=== PATIENT | female | born 1965 | race Caucasian/White ===

== ENCOUNTER 2019-11-15 11:23 | Emergency (ER) | payer MEDICARE, MEDICAID, SELFPAY ==
[2019-11-15 11:39] VITALS: BP 97/49; PULSE 112; RESP 16; TEMP 36.7; O2SAT 97
--- NOTE | 2019-11-15 11:50 | ED.GENADULT ---
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 She is also noticed a mild swelling the left inguinal canal which she is not sure what it is. It is mildly tender to palpation. She is not had any fever. She has not had any vaginal bleeding. She is not concerned about a sexually transmitted disease of any kind because she has not been sexually active in the past 5 years. She has had no hematuria, no dysuria, no pyuria. She has had no vaginal discharge and no vaginal bleeding. She is having no rectal pain. She has not had any ear pain, no nasal drainage, no sore throat. She has had no cough. She has had no nausea, no vomiting, no diarrhea. Related Data Home Medications Medication Instructions Recorded Confirmed albuterol sulfate 2 puff INHALATION Q4-6H PRN 08/20/19 11/01/19 montelukast 10 mg PO DAILY 10/19/19 11/01/19 omeprazole 20 mg PO DAILY 10/19/19 11/01/19 escitalopram oxalate 10 mg PO DAILY 11/15/19 11/15/19 roflumilast [Daliresp] 250 mcg PO DAILY 11/15/19 11/15/19 Allergies Allergy/AdvReac Type Severity Reaction Status Date / Time clindamycin Allergy Severe anaphylactic Verified 11/01/19 09:11 reaction, rash clarithromycin [From Biaxin] Allergy Hives Verified 11/15/19 11:48 Review of Systems Review of Systems: Narrative: CONSTITUTIONAL: Denies fever, chills, or sweats. Noncontributory except as pertains the past medical history and history of present illness. EYES: Denies visual changes, redness, or discharge. ENT: Denies rhinorrhea, congestion, sore throat, or otalgia. CARDIOVASCULAR: Denies chest pain, palpitations, or edema. RESPIRATORY: Denies cough or dyspnea. GASTROINTESTINAL: Denies abdominal pain, nausea, vomiting, or diarrhea. GENITOURINARY: Denies dysuria or hematuria. SKIN: Denies rash or itching. MUSCULOSKELETAL: Denies back pain, joint pain, or myalgia. NEUROLOGIC: Denies headache, numbness, or weakness. PSYCHIATRIC: Denies anxiety or depression. FOR[facility]LY [facility] Past Medical History Medical History (Updated 11/15/19 @ 12:14 by Issa Peace MD) Asthma Chronic respiratory failure COPD (chronic obstructive pulmonary disease) Generalized anxiety disorder with panic attacks GERD (gastroesophageal reflux disease) Spontaneous pneumothorax August 2012. These were recurrent on the left and she had a subsequent VATS procedure and apical blebectomy as well as pleurodesis. Steroid dependent Tobacco abuse Surgical History Surgical History (Updated 10/18/19 @ 22:58 by Brooke Pierson PA-C) History of bilateral tubal ligation History of History of tonsillectomy Status post thoracotomy Left-sided VATS procedure and apical bleb resection with pleurodesis. Social History Social History (Updated 11/01/19 @ 09:14 by Lizbeth Archuleta [facility]) Social History: The patient lives with her son. She has smoked as many as 2 packs of cigarettes a day. She apparently drinks 2 or 3 beers a day, but heavier on the weekends. Smoking packs per day: 0.5 Smoking cigarettes per day: 10.0 Years smoked: 35 Smoking pack-years: 17.50 Smoking status: Former smoker Tobacco type: cigarettes Second hand tobacco smoke exposure: No Alcohol intake: current Drinks per week: 5 Substance use: never Substance use type: does not use Additional living arrangements comments: Lives with her 17-year-old son. Gender identity (if verbalized by the patient): Female Spiritual care concerns: No Agree to blood products: Yes Comments At time of signature, I have reviewed and agree with nursing past medical, surgical, social, and family history.Please see n
== END 2019-11-15 12:20 | disposition home or self-care (01) ==
PROVIDERS: Emergency Provider Family Medicine; PCP Family Medicine
DX: N76.0 Acute vaginitis (principal); R59.0 Localized enlarged lymph nodes; Z87.891 Personal history of nicotine dependence; J45.909 Unspecified asthma, uncomplicated; K21.9 Gastro-esophageal reflux disease without esophagitis
CPT/HCPCS: 99214; G0463

== ENCOUNTER 2019-11-18 10:17 | Outpatient (CLI) | payer MEDICARE, MEDICAID, SELFPAY ==
[2019-11-18 11:00] VITALS: PULSE 134; O2SAT 84
[2019-11-18 11:05] VITALS: PULSE 136; O2SAT 85
[2019-11-18 11:10] VITALS: PULSE 121; O2SAT 91
--- NOTE | 2019-11-18 11:41 | HOMEO2EVAL ---
Home Oxygen Evaluation RC: Home Oxygen (O2) Evaluation Start: 11/18/19 11:36 Freq: ONCE Status: Active Protocol: RPE Activity Type Activity Date Activity User E-Sign Co-Sign Detail Recorded Client Recorded Date Recorded By Document 11/18/19 11:00 KMV [id number] 11/18/19 11:40 KMV Document 11/18/19 11:05 KMV [id number] 11/18/19 11:40 KMV Document 11/18/19 11:10 KMV [id number] 11/18/19 11:40 KMV 11/18/19 11/18/19 11/18/19 11:00 11:05 11:10 Home O2 Evaluation Test Phase Resting Exercise Exercise Oxygen Delivery Room Air Nasal Cannula Nasal Cannula Oxygen Flow Rate (L/min) 1 3 Pulse Oximetry (90-100 %) 84 L 85 L 91 Pulse Rate (60-100 beats/min) 134 H 136 H 121 H Treatment Charges O2 Evaluation
--- NOTE | 2019-11-21 00:34 | WPDPFTINT ---
PFT Interpretation PFT Interpretation: DOS: 11/18/2019 REQUESTING: Dr. Suggs REASON FOR TESTING: COPD PULMONARY FUNCTION TESTS Spirometry: Severe decrease in FEV1 16% predicted, 0.35 liter. FVc is modearetly severely reduced, 49%. The FEV1% is reduced 25%There is a significant response to bronchodilator, 20% increase in the FVC which is greater than 200 ml. Lung volumes: total lung capacity 143 consistent with moderate hyperinflation, severe air trapping residual volume 309%, severe increase in airway resistance 1057% predicted. Diffusion: DLCO is 27% predicted extremely reduced. Flow volume loop: Extreme scooping of the expiratory limb. IMPRESSION: This study shows extremely severe obstructive ventilatory impairment with good response to bronchodilator, moderate hyperinflation, profound air trapping, severe diffusion impairment consistent with end-stage emphysema. Increased airway resistance. Sil Suggs MD
== END 2019-11-18 10:18 | disposition home or self-care (01) ==
PROVIDERS: PCP Family Medicine; Visit Provider Internal Medicine Critical Care Medicine
DX: J96.11 Chronic respiratory failure with hypoxia (principal); J20.9 Acute bronchitis, unspecified; J96.12 Chronic respiratory failure with hypercapnia; J44.0 Chronic obstructive pulmonary disease with (acute) lower respiratory infection; R84.2 Abnormal level of other drugs, medicaments and biological substances in specimens from respiratory organs and thorax
CPT/HCPCS: 94060; 94618; 94729

== ENCOUNTER 2020-03-07 23:13 | Emergency (ER) | payer MEDICARE, MEDICAID, SELFPAY ==
--- NOTE | ~2020-03-07 | CT_ITS ---
EXAMINATION: CT brain wo con INDICATION: Head injury COMPARISON: None TECHNIQUE: Standard unenhanced head CT. The dose-length product (DLP) was 605.33 mGy-cm. The mA was a djusted according to patient size. Iterative reconstruction technique was employed. FINDINGS: There is no acute intraparenchymal hemorrhage. No evidence of mass lesion. No evidence of a cute infarction. There is mild periventricular and subcortical hypodensity probably related to small vessel ischemic disease. There is mild prominence of the sulci and ventricles related to cerebral atr ophy. Intracranial calcified cerebral atherosclerosis is noted. There are no extra-axial collections. There is no mass effect or midline shift. The orbits and soft tissues are unremarkable. There is mi ld mucosal thickening of the paranasal sinuses. There is complete opacification of the bilateral mast oid air cells. IMPRESSION: 1. No acute intracranial abnormality. 2. Bilateral mastoiditis. Reviewed, dictated and finalized at location A.
--- NOTE | ~2020-03-07 | CT_ITS ---
EXAMINATION: CT cervical spine wo con DATE: 03/07/2020 23:57 INDICATION: Neck pain TECHNIQUE: Computed tomography (CT) of the cervical spine was performed without intravenous contrast. The dose-length product (DLP) was 89.83 mGy-cm. Automated exposure control and iterative reconstruct ion technique were employed. COMPARISON: None FINDINGS: There is no fracture, dislocation, or subluxation. Mild loss of intervertebral disc space h eight is seen at C5-6 and C6-7. Small degenerative osteophytes project from the anterior endplates of multiple vertebral bodies. The odontoid is intact. Mild multilevel facet osteoarthritis is present. Bilateral mastoiditis is again noted. The prevertebral soft tissues are normal. There is severe emphy sema and surgical change in the visualized lung apices. IMPRESSION: 1. Mild cervical spondylosis without acute findings. Reviewed, dictated and finalized at location A.
--- NOTE | ~2020-03-07 | XR_ITS ---
EXAMINATION: XR thoracic spine 3V, XR lumbar spine 2-3V DATE: 03/08/2020 00:11 INDICATION: Back pain post fall TECHNIQUE: 1. One AP, lateral and lateral swimmer's views of the thoracic spine were obtained. 2. AP and lateral and coned-down lateral lumbosacral views of the lumbar spine were obtained. COMPARISON: None. FINDINGS: Mild thoracic kyphosis and minimal lumbar dextrocurvature. Vertebral body heights are normal. No acut e fractures identified. Mild disc height loss with minimal degenerative endplate changes at a few lev els in the midthoracic spine. Lumbar disc heights are normal. Sacrum and bilateral sacral iliac joint s are normal. Lag screw fixation across the right femoral head and neck. Severe emphysema with hypere xpansion of lungs and architectural distortion. Suture lines at the bilateral upper lung zones which may be related to prior lung reduction surgery. Mild scarring at the lung bases. No focal airspace op acities, pulmonary edema, pneumothorax or pleural effusion. IMPRESSION: 1. Mild thoracic spondylosis and minimal lumbar dextrocurvature. No evident acute osseous abnormality . 2. Severe emphysema Reviewed, dictated and finalized at location A. IMPRESSION: 1. Mild thoracic spondylosis and minimal lumbar dextrocurvature. No evident acu te osseous abnormality. 2. Severe emphysema
[2020-03-07 23:10] VITALS: BP 118/67; PULSE 90; RESP 20; TEMP 36.7; O2SAT 100
--- NOTE | 2020-03-08 00:31 | ED.FALL ---
HPI - Fall General Chief Complaint: Fall Stated Complaint: fall, low back pain Time Seen by Provider: 03/07/20 23:21 Source: patient Mode of arrival: ambulatory Limitations: no limitations History of Present Illness HPI Narrative: Patient is a 54-year-old female who presents to the emergency department via EMS with report of low back pain after sustaining a fall. Patient states she got up to get a bottle of water out of the refrigerator. Patient dropped a bottle of water which spilled on the floor causing her to slip and fall. Patient complains of low back pain. She also complains of skin tears to her forearms bilaterally. She denies any arm pain. Patient denies hitting her head or having any loss of consciousness. She is on Xarelto, but it is unclear for what diagnosis. MD complaint: fall Onset (ago): minute(s) Fall from: standing Place fall occurred: home Loss of consciousness: none Prolonged down time: no Symptoms prior to fall: none Context: tripped/slipped Location of injury: back Location of injury - extremities: Bilateral: forearm Related Data Home Medications Medication Instructions Recorded Confirmed albuterol sulfate 2 puff INHALATION Q4-6H PRN 08/20/19 11/01/19 montelukast 10 mg PO DAILY 10/19/19 11/01/19 omeprazole 20 mg PO DAILY 10/19/19 11/01/19 escitalopram oxalate 10 mg PO DAILY 11/15/19 11/15/19 roflumilast [Daliresp] 250 mcg PO DAILY 11/15/19 11/15/19 alprazolam 0.5 mg PO QID PRN 03/07/20 apixaban [Eliquis] 2.5 mg PO BID 03/07/20 ergocalciferol (vitamin D2) 1,250 mcg PO WEEKLY 03/07/20 [Vitamin D2] ferrous sulfate 325 mg PO DAILY 03/07/20 folic acid 0.8 mg PO DAILY 03/07/20 folic acid 1 mg PO DAILY 03/07/20 mirtazapine 15 mg PO HS 03/07/20 thiamine HCl (vitamin B1) 250 mg PO DAILY 03/07/20 umeclidinium [Incruse Ellipta] 1 inh INHALATION DAILY 03/07/20 Allergies Allergy/AdvReac Type Severity Reaction Status Date / Time clindamycin Allergy Severe anaphylactic Verified 11/01/19 09:11 reaction, rash clarithromycin [From Biaxin] Allergy Hives Verified 11/15/19 11:48 Review of Systems Review of Systems: All systems reviewed & are unremarkable except as noted in HPI and below Musculoskeletal: Musculoskeletal: Reports back pain PMFSH Past Medical History Medical History Asthma Chronic respiratory failure COPD (chronic obstructive pulmonary disease) Generalized anxiety disorder with panic attacks GERD (gastroesophageal reflux disease) Spontaneous pneumothorax August 2012. These were recurrent on the left and she had a subsequent VATS procedure and apical blebectomy as well as pleurodesis. Steroid dependent Tobacco abuse Surgical History Surgical History History of bilateral tubal ligation History of History of tonsillectomy Status post thoracotomy Left-sided VATS procedure and apical bleb resection with pleurodesis. Social History Social History Social History: The patient lives with her son. She has smoked as many as 2 packs of cigarettes a day. She apparently drinks 2 or 3 beers a day, but heavier on the weekends. Smoking packs per day: 0.5 Smoking cigarettes per day: 10.0 Years smoked: 35 Smoking pack-years: 17.50 Smoking status: Former smoker Tobacco type: cigarettes Second hand tobacco smoke exposure: No Alcohol intake: current Drinks per week: 5 Substance use: never Substance use type: does not use Additional living arrangements comments: Lives with her 17-year-old son. Gender identity (if verbalized by the patient): Female Spiritual care concerns: No Agree to blood products: Yes Exam Const: General: cooperative, no acute distress and alert Nutritional Appearance: well nourished Orientation/consciousness: patient oriented x3 Limitat
--- NOTE | 2020-03-08 01:11 | PC.NURSE ---
walked pt to bathroom with portable oxygen, pt tolerated well. called son Liam to come pick her up.
[2020-03-08 01:33] VITALS: BP 146/96; PULSE 90; RESP 24; O2SAT 100
== END 2020-03-08 01:37 | disposition home or self-care (01) ==
PROVIDERS: Emergency Provider Emergency Medicine; PCP Family Medicine
DX: S39.92XA Unspecified injury of lower back, initial encounter (principal); S51.812A Laceration without foreign body of left forearm, initial encounter; S51.811A Laceration without foreign body of right forearm, initial encounter; J44.9 Chronic obstructive pulmonary disease, unspecified; J96.10 Chronic respiratory failure, unspecified whether with hypoxia or hypercapnia; K21.9 Gastro-esophageal reflux disease without esophagitis; Z79.01 Long term (current) use of anticoagulants; F17.210 Nicotine dependence, cigarettes, uncomplicated; M47.812 Spondylosis without myelopathy or radiculopathy, cervical region; H70.93 Unspecified mastoiditis, bilateral; W01.0XXA Fall on same level from slipping, tripping and stumbling without subsequent striking against object, initial encounter
CPT/HCPCS: 70450; 72072; 72100; 72125; 99284

== ENCOUNTER 2020-03-08 11:15 | Inpatient (IN) | payer MEDICARE, MEDICAID, SELFPAY ==
[2020-03-08] VITALS (19 sets, daily range): BP systolic 62–197; BP diastolic 35–165; PULSE 90–120; RESP 14–30; TEMP 35.7–37.8; O2SAT 93–100
--- NOTE | ~2020-03-08 | XR_ITS ---
EXAMINATION: XR chest ET placement INDICATION: Endotracheal tube insertion TECHNIQUE: Portable AP chest at 2047 hours COMPARISON: 1359 hours FINDINGS: An endotracheal tube has been inserted which ends approximately 6 cm above the mario. A na sogastric tube has been inserted which ends with its tip in the stomach and proximal side port in the distal esophagus. Also seen is a new right internal jugular central venous catheter with its tip in the superior vena cava. The lungs are hyperinflated but free of acute opacities. There is no pleural effusion or pneumothorax. The cardiomediastinal silhouette is normal. Multiple staple lines are again noted in the lungs, consistent with prior surgery. IMPRESSION: 1. Endotracheal tube and right internal jugular catheter in adequate position. 2. Tip of the nasogastric tube in the stomach with the proximal side port in the distal esophagus. Re commend advancing. Reviewed, dictated and finalized at location A. IMPRESSION: 1. Endotracheal tube and right internal jugular catheter in adequate position. 2. Tip of the nasogastric tube in the stomach with the proximal side port in th e distal esophagus. Recommend advancing.
--- NOTE | ~2020-03-08 | XR_ITS ---
EXAMINATION: XR chest 1V portable DATE: 03/16/2020 05:54 INDICATION: Respiratory failure. TECHNIQUE: A single frontal view of the chest was obtained. COMPARISON: Chest single view 03/07/2020, chest CT 03/10/2020 FINDINGS: The lungs are hyperexpanded with lucencies and architectural distortion, consistent with em physema. There are scattered small airspace opacities, consistent with scarring. No pleural effusion. There is a small left basilar pneumothorax. There are staple lines in the upper lungs bilaterally. T he heart size is normal. The endotracheal tube tip is 4.0 cm above the mario. The nasogastric tube t ip is beyond the inferior margin of the radiograph, but at least to the stomach. A right internal jug ular central venous catheter is seen with tip in the superior vena cava. There is an old healed left rib fracture. IMPRESSION: 1. Stable small left pneumothorax. 2. Severe emphysema. Reviewed, dictated and finalized at location A.
--- NOTE | ~2020-03-08 | XR_ITS ---
EXAMINATION: XR chest 1V portable DATE: 03/17/2020 05:44 INDICATION: Respiratory failure TECHNIQUE: frontal view of the chest was obtained. COMPARISON: Chest radiograph dated 03/16/2020 FINDINGS: Unchanged small pneumothorax the lateral left mid to lower lung zone. Hyperexpansion of lungs with in creased lucency and architectural distortion consistent with emphysema. Suture lines at the bilateral upper lung zones which may be related to prior lung reduction surgery. Scattered linear scarring mos t prominent at the apices and lung bases. No new airspace opacities, pulmonary edema or pleural effus ion. The cardiomediastinal silhouette is normal. Old healed left rib fracture. IMPRESSION: 1. Unchanged small left pneumothorax. 2. Severe emphysema. Reviewed, dictated and finalized at location A.
--- NOTE | ~2020-03-08 | XR_ITS ---
EXAMINATION: XR chest 1V portable DATE: 03/13/2020 05:39 INDICATION: Acute respiratory failure. Chronic obstructive pulmonary disease exacerbation. TECHNIQUE: A single frontal view of the chest was obtained. COMPARISON: Chest single view 03/12/2020, chest CT 03/10/2020 FINDINGS: The lungs are hyperexpanded with lucencies and architectural distortion, consistent with em physema. There are staple lines in the superior lungs bilaterally. There is multifocal mild scarring in the lungs. No pleural effusion. There is a small left basilar pneumothorax. The heart size is norm al. The endotracheal tube tip is 5.5 cm above the mario. The nasogastric tube tip is beyond the infe rior margin of the radiograph, but at least to the stomach. A right internal jugular central venous c atheter is seen with tip IMPRESSION: 1. Stable small left pneumothorax. 2. Severe emphysema. Reviewed, dictated and finalized at location A.
--- NOTE | ~2020-03-08 | XR_ITS ---
EXAMINATION: XR chest 1V portable DATE: 03/19/2020 05:42 INDICATION: Respiratory failure. TECHNIQUE: A single frontal view of the chest was obtained. COMPARISON: Chest single view 03/18/2020, chest CT 03/10/2020 FINDINGS: The lungs are hyperexpanded with lucencies and architectural distortion, consistent with em physema. There are scattered mild airspace opacities in the lungs. Staple lines overlie the upper melina gs. No pleural effusion. No definite pneumothorax. The heart size is normal. IMPRESSION: 1. Stable diffuse lung disease which may be scarring or pneumonia versus pulmonary edema superimposed on severe emphysema. Reviewed, dictated and finalized at location A. IMPRESSION: 1. Stable diffuse lung disease which may be scarring or pneumonia versus pulmon cirera edema superimposed on severe emphysema.
--- NOTE | ~2020-03-08 | XR_ITS ---
EXAMINATION: XR chest 1V portable DATE: 03/08/2020 14:05 INDICATION: Shortness of breath. TECHNIQUE: A single frontal view of the chest was obtained on 2 radiographs. COMPARISON: Chest single view 10/24/2019, chest CT 10/23/2019 FINDINGS: The lungs are hyperexpanded with lucencies, mild multifocal scarring, and architectural dis tortion, consistent with emphysema. There are staple lines in the lungs bilaterally. No pleural effus ion or pneumothorax. The heart size is normal. There is an old healed fracture of left seventh rib. IMPRESSION: 1. Severe emphysema. Reviewed, dictated and finalized at location E. IMPRESSION: 1. Severe emphysema.
--- NOTE | ~2020-03-08 | CT_ITS ---
EXAMINATION: CTA chest PE protocol DATE: 03/10/2020 11:11 INDICATION: Acute respiratory failure. Elevated d-dimer. TECHNIQUE: Computed tomography angiography (CTA) of the chest was performed with 100 mL Omnipaque-350 intravenous contrast timed to evaluate the pulmonary arteries. Coronal maximum intensity projection 3D-reconstructions were created by the technologist. Automated exposure control and iterative reconst ruction technique were employed. Exam dose: 161.69 mGy-cm total exam DLP. COMPARISON: 03/10/2020 portable AP chest FINDINGS: Right internal jugular central venous line in superior vena cava. ET and NG tubes are present in expected positions. There is diagnostic contrast enhancement of the pulmonary arteries and no evidence of pulmonary embol ism. There is prominent bullous emphysema of the lungs. There is mild left pneumothorax. No thoracic aortic aneurysm is evident. No hilar or mediastinal mass lesion or lymphadenopathy. Normal heart size. No pericardial or pleural effusion. IMPRESSION: Mild left pneumothorax Severe bullous emphysema No evidence of pulmonary embolism Dr. Silva telephoned the report including mild left pneumothorax to ICU nurse Justine on 03/10/2020 at 1408 hours. Reviewed, dictated and finalized at Location A. Reviewed, dictated and finalized at location A. IMPRESSION: Mild left pneumothorax Severe bullous emphysema No evidence of pulmonary embolism Dr. Silva telephoned the report including mild left pneumothorax to ICU nurse Tai ramirez on 03/10/2020 at 1408 hours.
--- NOTE | ~2020-03-08 | XR_ITS ---
XR chest 1V portable DATE: 03/10/2020 05:24 INDICATION: Acute respiratory failure. COPD. TECHNIQUE: Portable AP chest on 03/10/2020 at 0521 hours COMPARISON: 03/09/2020 portable AP chest at 0523 hours FINDINGS: Postoperative changes from bilateral lung resections. Bilateral hyperinflation, consistent with COPD. There is scattered bilateral patchy pulmonary infiltrates, new since 03/09/2020. ET tube tip approximately 5 cm above mario. NG tube in stomach. Right internal jugular centimeters c atheter tip overlies the superior vena cava. No evidence of pneumothorax. Heart size is normal. There is no apparent pleural effusion. Diffuse osteopenia. IMPRESSION: Interval bilateral patchy pulmonary infiltrates since 03/09/2020 Reviewed, dictated and finalized at location A.
--- NOTE | ~2020-03-08 | XR_ITS ---
EXAMINATION: XR chest 1V portable DATE: 03/09/2020 05:56 INDICATION: Intubated TECHNIQUE: frontal view of the chest was obtained. COMPARISON: Chest radiograph dated 03/08/2020 FINDINGS: Endotracheal tube tip 4.4 cm above the mario. Right internal jugular central venous catheter with di stal tip at the midsuperior vena cava. Nasogastric tube extends below the left hemidiaphragm with di stal tip collimated off the study. Severe emphysema with hyperexpansion and architectural distortion with scattered regions of increased lucency and linear scarring. Suture lines at the bilateral upper lung zones which may be related to prior volume reduction surgery. No pulmonary edema, pleural effusion or pneumothorax. The cardiomedia stinal silhouette is normal. Old healed left rib fracture. IMPRESSION: 1. Severe emphysema. Reviewed, dictated and finalized at location A. IMPRESSION: 1. Severe emphysema.
--- NOTE | ~2020-03-08 | XR_ITS ---
XR chest 1V portable DATE: 03/11/2020 05:22 INDICATION: Acute respiratory failure TECHNIQUE: Portable AP chest on 03/11/2020 at 0458 hours COMPARISON: 03/10/2020 portable AP chest 03/10/2020 CT pulmonary scan FINDINGS: Stable mild left pneumothorax. Bilateral hyperinflation consistent with COPD. Postoperative changes from bilateral lung resections. Normal heart size. ET tube in satisfactory position approximately 4.4 cm above mario. NG tube in stomach. Right interna l jugular central venous catheter tip overlies the superior vena cava. No evidence of pneumothorax. Diffuse osteopenia. IMPRESSION: Stable mild left pneumothorax COPD Reviewed, dictated and finalized at location A.
--- NOTE | ~2020-03-08 | XR_ITS ---
EXAMINATION: XR chest 1V portable DATE: 03/15/2020 05:32 INDICATION: Left pneumothorax. TECHNIQUE: A single frontal view of the chest was obtained. COMPARISON: Chest single view 03/14/2020 FINDINGS: The lungs are hyperexpanded with architectural distortion, lucencies, and small scattered c hronic airspace opacities, consistent with severe emphysema with multifocal scarring. There is a smal l left basilar pneumothorax. No pleural effusion. The heart size is normal. The endotracheal tube tip is 4.1 cm above the mario. The nasogastric tube tip is beyond the inferior margin of the radiograph , but at least to the stomach. A right internal jugular central venous catheter is seen with tip in t he superior vena cava. IMPRESSION: 1. Stable small left pneumothorax. 2. Severe emphysema. Reviewed, dictated and finalized at location A.
--- NOTE | ~2020-03-08 | XR_ITS ---
EXAMINATION: XR chest 1V portable EXAM DATE: 03/12/2020 06:10 INDICATION: Respiratory failure. TECHNIQUE: Portable AP frontal chest x-ray was obtained. Comparison is made to prior examination from 03/11/2020. FINDINGS: Endotracheal tube tip is 5-6 centimeters above the mario (ideal range is between 2 to 5 cm ). There is a nasogastric tube seen with tip collimated off the study, but below the left hemidiaphr agm. There is right-sided IJ venous line in position. The lungs are hyperinflated which can be seen with chronic obstructive pulmonary disease (a clinical diagnosis of functional impairment), but is not diagnostic of it. There are scattered regions of post infectious residua and surgical suture material from lung biopsies/partial pneumonectomies. There a re no sizable pleural effusions. Small left pneumothorax with pleural reflection identified in the left lateral sulcus. Cardiomediastinal silhouette is normal. There are mild bony degenerative hurley es. There is no significant interval change compared to prior exam. IMPRESSION: 1. Small left pneumothorax unchanged. 2. Chronic hyperinflation, surgical and post infectious changes. Reviewed, dictated and finalized at location A.
--- NOTE | ~2020-03-08 | XR_ITS ---
EXAMINATION: XR abdomen NG/feed tube insert INDICATION: Nasogastric tube insertion TECHNIQUE: Portable AP KUB-NG at 2048 hours COMPARISON: 10/20/2019 FINDINGS: The tip of the nasogastric tube is in the stomach. The proximal side port is approximately 6 cm above the gastroesophageal junction. Tube can be safely advanced 6 cm. The bowel gas pattern is nonspecific. Severe emphysema is noted. IMPRESSION: 1. Tip of the nasogastric tube with the proximal side port in the distal esophagus. Tube can be safel y advanced 6 cm. Reviewed, dictated and finalized at location A. IMPRESSION: 1. Tip of the nasogastric tube with the proximal side port in the distal esopha lyndsay. Tube can be safely advanced 6 cm.
--- NOTE | ~2020-03-08 | CT_ITS ---
EXAMINATION: CT lumbar spine wo con DATE: 03/08/2020 13:07 INDICATION: Low back pain. TECHNIQUE: Computed tomography (CT) of the lumbar spine was performed without intravenous contrast. A utomated exposure control and iterative reconstruction technique were employed. The dose-length produ ct was 303.06 mGy-cm. COMPARISON: None FINDINGS: There is 5 degrees levocurvature of lumbar spine. Vertebral body heights and intervertebral disc heights are normal. The following disc levels are specifically discussed: L1-L2: The disc does not extend beyond the endplate margin. There is mild bilateral facet joint osteo arthritis. There is no neural foraminal stenosis. There is no central canal stenosis. L2-L3: The disc is bulging. There is mild bilateral facet joint osteoarthritis. There is mild right n eural foraminal stenosis. There is no central canal stenosis. L3-L4: The disc is bulging. There is moderate right and mild left facet joint osteoarthritis. There i s mild bilateral neural foraminal stenosis. There is mild central canal stenosis. L4-L5: The disc is mildly bulging. There is moderate right and mild left facet joint osteoarthritis. There is mild bilateral neural foraminal stenosis. There is no central canal stenosis. L5-S1: The disc does not extend beyond the endplate margin. There is mild bilateral facet joint osteo arthritis. There is no neural foraminal stenosis. There is no central canal stenosis. IMPRESSION: 1. Mild lumbar spondylosis. Reviewed, dictated and finalized at location E. IMPRESSION: 1. Mild lumbar spondylosis.
--- NOTE | ~2020-03-08 | XR_ITS ---
XR chest 1V portable 03/18/2020 06:01 Indication: Respiratory failure Procedure: AP portable chest Comparison: Comparison to multiple prior studies sequentially, with oldest reviewed study dated 03/14. Findings: Heart size normal. There are emphysematous changes. There are surgical changes in the upper lungs bilaterally consistent with partial pneumonectomy. There are diffuse bilateral interstitial in filtrates, likely edema. Pneumonia less favored. Impression: 1: Diffuse bilateral interstitial infiltrates, most likely edema superimposed on emphysema. Pneumonia less favored. Reviewed, dictated and finalized at location A. Impression: 1: Diffuse bilateral interstitial infiltrates, most likely edema superimposed o n emphysema. Pneumonia less favored.
--- NOTE | ~2020-03-08 | XR_ITS ---
EXAMINATION: XR chest 1V portable DATE: 03/14/2020 06:01 INDICATION: Acute respiratory failure. Chronic obstructive pulmonary disease exacerbation. TECHNIQUE: A single frontal view of the chest was obtained. COMPARISON: Chest single view 03/13/2020 FINDINGS: The lungs are hyperexpanded with architectural distortion and lucencies, consistent with em physema. There are mild airspace opacities in all lung zones bilaterally. There is a small left basil ar pneumothorax. No pleural effusion. The heart size is normal. The endotracheal tube tip is 5.3 cm a marina the mario. The nasogastric tube tip is beyond the inferior margin of the radiograph, but at jos[address] to the stomach. A right internal jugular central venous catheter is seen with tip in the superior vena cava. There are staple lines in the upper lungs. There is an old healed left rib fracture. IMPRESSION: 1. Stable small left pneumothorax. 2. Worsened diffuse lung disease, consistent with pneumonia versus atelectasis/scarring superimposed on severe emphysema. Reviewed, dictated and finalized at location A. IMPRESSION: 1. Stable small left pneumothorax. 2. Worsened diffuse lung disease, consistent with pneumonia versus atelectasis/ scarring superimposed on severe emphysema.
--- NOTE | 2020-03-08 12:33 | ED.BACK ---
HPI - Back Pain/Injury General Chief Complaint: Back Pain/Injury Stated Complaint: Back pain Time Seen by Provider: 03/08/20 11:34 Source: patient Mode of arrival: EMS Limitations: no limitations History of Present Illness HPI Narrative: This patient is a 54 year old frail female with COPD, chronic O2 who presents to the emergency department via EMS for evaluation of low back pain. Patient states she slipped on water last night and she fell onto her back. She was evaluated in [facility] late last night. She was evaluated with CT brain, CT cervical spine, thoracic spine xray and lumbar spine xray. No acute fracture was seen on the imaging so she was discharged home. Patient states that she continues to have pain and it seems worse so she came to ER to make sure her lower back was not broken. She denies lower extremity weakness or numbness. MD elicited complaint: back pain Location: lumbar spine Related Data Home Medications Medication Instructions Recorded Confirmed montelukast 10 mg PO DAILY 10/19/19 03/08/20 omeprazole 20 mg PO DAILY 10/19/19 03/08/20 escitalopram oxalate 10 mg PO DAILY 11/15/19 03/08/20 roflumilast [Daliresp] 500 mcg PO DAILY 11/15/19 03/08/20 alprazolam 0.5 mg PO QID PRN 03/07/20 03/08/20 apixaban [Eliquis] 2.5 mg PO BID 03/07/20 03/08/20 folic acid 1 mg PO DAILY 03/07/20 03/08/20 mirtazapine 15 mg PO HS 03/07/20 03/08/20 thiamine HCl (vitamin B1) 100 mg PO DAILY 03/07/20 03/08/20 umeclidinium [Incruse Ellipta] 1 inh INHALATION DAILY 03/07/20 03/08/20 ergocalciferol (vitamin D2) 50,000 unit PO WEEKLY 03/08/20 03/08/20 fluticasone propionate [Flonase 2 spray INTRANASAL DAILY 03/08/20 03/08/20 Allergy Relief] ipratropium-albuterol 3 ml INHALATION QID 03/08/20 03/08/20 Allergies Allergy/AdvReac Type Severity Reaction Status Date / Time clindamycin Allergy Severe anaphylactic Verified 03/08/20 11:30 reaction, rash clarithromycin [From Biaxin] Allergy Hives Verified 03/08/20 11:30 Review of Systems Review of Systems: All systems reviewed & are unremarkable except as noted in HPI and below Constitutional: Constitutional: Denies chills and Denies fever(s) Cardiovascular: Cardiovascular: Denies chest pain Respiratory: Respiratory: Reports dyspnea (chronic ) Musculoskeletal: Musculoskeletal: Reports back pain PMFSH Past Medical History Medical History Asthma Chronic respiratory failure COPD (chronic obstructive pulmonary disease) Generalized anxiety disorder with panic attacks GERD (gastroesophageal reflux disease) Spontaneous pneumothorax August 2012. These were recurrent on the left and she had a subsequent VATS procedure and apical blebectomy as well as pleurodesis. Steroid dependent Tobacco abuse Surgical History Surgical History History of bilateral tubal ligation History of History of tonsillectomy Status post thoracotomy Left-sided VATS procedure and apical bleb resection with pleurodesis. Social History Social History Social History: The patient lives with her son. She has smoked as many as 2 packs of cigarettes a day. She apparently drinks 2 or 3 beers a day, but heavier on the weekends. Smoking packs per day: 0.5 Smoking cigarettes per day: 10.0 Years smoked: 35 Smoking pack-years: 17.50 Smoking status: Current every day smoker Tobacco type: cigarettes Second hand tobacco smoke exposure: Yes Alcohol intake: current Drinks per week: 5 Substance use: never Substance use type: does not use Additional living arrangements comments: Lives with her 17-year-old son. Gender identity (if verbalized by the patient): Female Spiritual care concerns: No Agree to blood products: Yes Exam Const: General: alert Nutritional Appearance: th
[2020-03-08 13:45] LABS: Basophils Percent Auto 0.2 % (0.2-1.2); Hematocrit 41.6 % (37.0-47.0); Immature Granulocyte Absolute 0.04 K/mm3 (0.00-0.031); Immature Granulocyte Percent A 0.4 % (0-0.5); Lymphocytes Absolute Auto 0.37 K/mm3 (0.9-3.2); Lymphocytes Percent Auto 3.7 % (18.3-44.2); Mean Corpuscular HGB Conc 28.8 g/dl (32-36); Mean Corpuscular Hemoglobin 30.2 pg (26-34); Mean Corpuscular Volume 104.8 fl (80-100); Mean Platelet Volume 8.6 fl (7.4-10.4); Monocytes Absolute Auto 0.9 K/mm3 (0.1-0.6); Monocytes Percent Auto 8.5 % (2.6-8.5); Neutrophils Absolute Auto 8.8 K/mm3 (1.3-6.7); Neutrophils Percent Auto 87.2 % (45.5-73.1); Platelet Count Result 199 k/mm3 (150-375); Red Blood Count 3.97 M/mm3 (4.2-5.4); White Blood Count 10.1 K/mm3 (4.5-10.0)
[2020-03-08] MEDS: ONDANSETRON INJ 4 MG/2 ML VIAL IV PUSH (13:57)
[2020-03-08] MEDS: HYDROMORPHONE HCL 1 MG/ML INJ 0.5 MG IV PUSH (13:57)
[2020-03-08 14:05] LABS: Base Excess ABG 26.7 mEq/l (+/-2.0); HCO3 ABG 61.2 mEq/l (22.0-26.0); Oxygen Saturation ABG 93.8 % (95.0-100.0); PCO2 ABG 140.1 mmHg (35.0-45.0); PO2 ABG 87.3 mmHg (80.0-100.0); pH ABG 7.258 (7.350-7.450)
[2020-03-08 14:06] LABS: Carboxyhemoglobin 5.5 % THb (0-2.0); Device NASAL CANNULA; Fractional Inspired Oxygen 34 %; Liters per Minute 3.5 LPM; Methemoglobin ABG 0.2 %THb (0-1.5); Oxygen Content ABG 16.6 %vol (16.0-22.0); Oxyhemoglobin 90.3 % THb (90.0-100.0); PO2 FiO2 Ratio Arterial Blood 2.57 %; Site Drawn LEFT BRACHIAL
[2020-03-08 14:07] LABS: Alanine Aminotransferase 17 U/L (4-35); Albumin Level 3.9 g/dL (3.5-5.1); Alkaline Phosphatase 71 U/L (38-126); Aspartate Amino Transferase 32 U/L (14-36); Bilirubin,Total 0.4 mg/dL (0.2-1.3); Blood Urea Nitrogen 11 mg/dL (7-17); Calcium 8.7 mg/dL (8.4-10.2); Carbon Dioxide > 40 mmol/L (22-30); Chloride 78 mmol/L (98-107); Estimated CRCL calculation 87 ml/min; Estimated Glomerular Filt Rate > 60; Glucose 114 mg/dL (65-105); Potassium 4.4 mmol/L (3.4-5.0); Sodium 135 mmol/L (137-145)
--- NOTE | 2020-03-08 14:12 | ECG_ITS ---
Measurements Intervals [place] Rate: 88 P: 92 WI: 129 QRS: 66 QRSD: 78 T: 94 QT: 339 QTc: 412 Interpretive Statements SINUS RHYTHM VOLTAGE CRITERIA FOR LVH BASELINE ARTIFACT- I, II, III, AVR, AVL, AVF, V1-V6 BORDERLINE ECG Electronically Signed On 03-08-2020 14:17:16 CDT by Quinton Bell D.O.
--- NOTE | 2020-03-08 17:40 | PC.NURSE ---
This patient, Esther Brink, was admitted to IMU Room 210-01. Patient/family oriented to hospital policies and general routines including ID bracelet, bed and alarms, visiting hours, pain management, procedures, bathroom and other care routines, personal items, smoking policy, room service/diet, and visiting hours. Valuables list has been completed. Information on how to activate the Rapid Response Team has been discussed. Patient/Family are encouraged to report perceived risks to care and to ask questions if they do not understand what they are told or what they should do.
[2020-03-08 18:30] LABS: Base Excess ABG 28.9 mEq/l (+/-2.0); Carboxyhemoglobin 4.4 % THb (0-2.0); Fractional Inspired Oxygen 40 %; HCO3 ABG 65.3 mEq/l (22.0-26.0); Methemoglobin ABG 0.2 %THb (0-1.5); Oxygen Content ABG 16.4 %vol (16.0-22.0); Oxyhemoglobin 87.2 % THb (90.0-100.0); PO2 ABG 64.7 mmHg (80.0-100.0); PO2 FiO2 Ratio Arterial Blood 1.62 %; Reduced Hemoglobin 8.2 %THb (0-5.0); Total Hemoglobin 13.4 g/dL (12.0-18.0)
[2020-03-08 18:32] LABS: Device NON-INVASIVE VENT; Modified Allen's Test Pass; Oxygen Saturation ABG 84.3 % (95.0-100.0); PCO2 ABG 163.9 mmHg (35.0-45.0); Site Drawn LEFT RADIAL; pH ABG 7.218 (7.350-7.450)
[2020-03-08 18:34] LABS: Non-Invasive Expiratory Pressure 8 CMH2O; Non-Invasive Inspiratory Pressure 20 CMH2O; Non-Invasive Vent Rate 20 /MIN
--- NOTE | 2020-03-08 19:00 | PC.NURSE ---
This patient, Esther Brink, was received from [IMU ] on 03/08/20 at 1900. Personal belongings list checked and signed. Patient/family oriented to unit policies and routines
--- NOTE | 2020-03-08 19:05 | PC.NURSE ---
PATIENT ARRIVED ON BIPAP FROM IMU, INTUBATED PER DENTAL INSURANCE BILLER CHEL LORENZO PLACED ON VENTILATOR.
--- NOTE | 2020-03-08 19:11 | PC.NURSE ---
1854 Patient transferred to ICU 5 via bed. Patient's ABG worsening. Patient to ICU to be intubated. Belongings transferred with patient. Report given at bedside to RAHUL Stoner. Called and spoke with Neo Brooke, ex and got name and number of her child, Lino. Contact information updated.
--- NOTE | 2020-03-08 20:19 | ECG_ITS ---
Measurements Intervals [place] Rate: 87 P: 57 SD: 130 QRS: 79 QRSD: 73 T: 90 QT: 365 QTc: 440 Interpretive Statements SINUS RHYTHM ST ELEVATION IN ANTEROLAT/INF LEADS- CONSIDER PERICARDITIS, INJURY OR EARLY REPOLARIZATION BASELINE ARTIFACT- I, II, III, AVR, AVL, AVF, V3-V6 ABNORMAL ECG Electronically Signed On 03-09-2020 6:56:39 CDT by Quinton Bell D.O.
[2020-03-08] MEDS: SODIUM CHLORIDE 0.9% IV 1,000 ML 999 ML IV CONT (20:30)
[2020-03-08] MEDS: DOPamine 400 MG/D5W 250 ML 400 MG/250 ML BAG IV CONT (20:35)
--- NOTE | 2020-03-08 20:47 | PM.IMHP ---
H&P: HPI History of Present Illness Chief complaint: acute on chronic respiratory failure Narrative: Esther Brink is a 54 year old female who initially came to the Emergency last night due to low back pain after sustaining a fall. The patient got up to get up bottle water of the refrigerator sharp the bottle water and spilled all over the floor causing her to slip and fall. She is complaining lower back pain she has some skin tears on her arms. A CT of her head was performed and there is no acute intracranial abnormalities and she had a CT of her cervical spine mild cervical spondylosis without any acute findings. Patient was then sent home. Of COPD and is on oxygen at home. The patient was very short of breath. X-ray from this afternoon was read as severe emphysema. Her lumbar spine was read as mild lumbar spondylosis. Thoracic spine chest x-ray. Mild thoracic spondylosis and minimal lumbar dextrocurvature. Severe emphysema. Lumbar x-ray severe emphysema mild thoracic spondylosis and minimal lumbar dextrocurvature. CT of the cervical spine no fractures mild cervical spondylosis without acute findings. Patient's ABGs her pH is 7.258, pCO2 was 140.1 O2 saturations 93.8 bicarb 61.2. The patient was placed on a BiPAP in the emergency room. Patient was minimally responsive and anxious she was attempting to pull off her BiPAP machine. I repeated her ABGs and her pH was 7.218, pCO2 was 163.9, PO2 64.7. Bicarb 65.3. I called the silk screen painter who then recommended that the patient be intubated. I was able to intubate the patient but unable to get a central line. I spoke with Dr. pappas who came to help me with the patient in intensive care unit. An EKG had been performed due to some changes noted on the monitor when she was taken ICU. Dr. Moreno was notified of the EKG changes. Date of service 03/08/2020 Review of Systems Review of Systems: ROS unobtainable: Yes unobtainable due to mental status Constitutional: Constitutional: Reports as per HPI and Reports no additional constitutional complaints Eyes: Eyes: Reports as per HPI and Reports no additional eye complaints ENT: Reports system reviewed and no additional complaints, except as documented and Reports Normal hearing present Cardiovascular: Cardiovascular: Reports no additional cardiovascular complaints Respiratory: Respiratory: Reports no additional respiratory complaints and Reports no additional respiratory complaints Gastrointestinal: Gastrointestinal: Reports as per HPI and Reports no additional gastrointestinal complaints Musculoskeletal: Musculoskeletal: Reports no additional musculoskeletal complaints Integumentary/Breasts: Skin/Breast: Reports system reviewed and no additional complaints, except as docu and Reports as per HPI Neurologic: Reports system reviewed and no additional complaints, except as documented, Reports as per HPI and Reports Normal hearing present Psychiatric: Psychiatric: Reports no additional psychiatric complaints and Reports as per HPI Endocrine: Endocrine: Reports no additional endocrine complaints Hematologic/Lymphatic: Hematologic/Lymphatic: Reports no additional hematologic/lymphatic complaints Allergic/Immunologic: Allergic/Immunologic: Reports no additional allergic/immunologic complaints [facility] Past Medical History Medical History Asthma Chronic respiratory failure COPD (chronic obstructive pulmonary disease) Generalized anxiety disorder with panic attacks GERD (gastroesophageal reflux disease) Spontaneous pneumothorax August 2012. These were recurrent on the left and she had a subsequent VATS procedure and apical blebectomy as well as pleurodesis. Steroid dependent Tobacco abuse Surgical History Surgical History History of bilateral tubal ligation History of History of tonsillectomy Status post thoracotomy Left
--- NOTE | 2020-03-08 20:53 | ECG_ITS ---
Measurements Intervals [place] Rate: 115 P: 85 [place]: 108 QRS: 36 QRSD: 68 T: 89 QT: 303 QTc: 420 Interpretive Statements SINUS TACHYCARDIA PEAKED T WAVES- CONSIDER HYPERKALEMIA OR ISCHEMIA BASELINE ARTIFACT- I, II, III, AVR, AVL, AVF, V1-V6 ABNORMAL ECG Electronically Signed On 03-09-2020 6:57:41 CDT by Quinton Bell D.O.
[2020-03-08 20:56] LABS: Basophils Percent Auto 0.1 % (0.2-1.2); Hemoglobin 10.7 g/dL (12.0-15.0); Immature Granulocyte Absolute 0.01 K/mm3 (0.00-0.031); Immature Granulocyte Percent A 0.1 % (0-0.5); Lymphocytes Absolute Auto 0.63 K/mm3 (0.9-3.2); Lymphocytes Percent Auto 8.9 % (18.3-44.2); Mean Corpuscular HGB Conc 28.9 g/dl (32-36); Mean Corpuscular Hemoglobin 30.4 pg (26-34); Mean Corpuscular Volume 105.1 fl (80-100); Mean Platelet Volume 8.9 fl (7.4-10.4); Monocytes Absolute Auto 0.5 K/mm3 (0.1-0.6); Monocytes Percent Auto 7.5 % (2.6-8.5); Neutrophils Absolute Auto 5.9 K/mm3 (1.3-6.7); Neutrophils Percent Auto 83.4 % (45.5-73.1); Platelet Count Result 193 k/mm3 (150-375); Red Blood Count 3.52 M/mm3 (4.2-5.4); White Blood Count 7.1 K/mm3 (4.5-10.0)
[2020-03-08 20:57] LABS: Alveolar/Arterial O2 Gradient 303.1 mmHg; Base Excess ABG 16.1 mEq/l (+/-2.0); Fractional Inspired Oxygen 100 %; Oxygen Content ABG 17.1 %vol (16.0-22.0); Oxygen Saturation ABG 99.8 % (95.0-100.0); Oxyhemoglobin 96.8 % THb (90.0-100.0); PCO2 ABG 50.6 mmHg (35.0-45.0); PO2 ABG 359.3 mmHg (80.0-100.0); PO2 FiO2 Ratio Arterial Blood 3.59 %; Total Hemoglobin 11.9 g/dL (12.0-18.0)
[2020-03-08 20:58] LABS: Site Drawn RIGHT FEMORAL; pH ABG 7.526 (7.350-7.450)
[2020-03-08 20:59] LABS: Arterial Blood Gas PEEP 5 cmH2O; Arterial Blood Gas Tidal Volume 350 ml; Arterial Blood Gas Vent Mode CMV; Arterial Blood Gas Ventilator rate 20 /MIN; Device VENTILATOR
[2020-03-08 21:07] LABS: INR 0.9; Prothrombin Time 12.3 Seconds (11.1-14.7)
[2020-03-08 21:12] LABS: Alanine Aminotransferase 14 U/L (4-35); Albumin Level 3.3 g/dL (3.5-5.1); Alkaline Phosphatase 60 U/L (38-126); Aspartate Amino Transferase 26 U/L (14-36); Bilirubin,Total 0.5 mg/dL (0.2-1.3); Blood Urea Nitrogen 16 mg/dL (7-17); Calcium 7.9 mg/dL (8.4-10.2); Carbon Dioxide > 40 mmol/L (22-30); Chloride 84 mmol/L (98-107); Estimated CRCL calculation 56 ml/min; Estimated Glomerular Filt Rate > 60; Glucose 125 mg/dL (65-105); Hypochromasia 1+ (NORMAL); Platelet Estimate Adequate (Adequate); Sodium 134 mmol/L (137-145)
[2020-03-08 21:15] LABS: Magnesium 1.7 mg/dL (1.6-2.3)
--- NOTE | 2020-03-08 21:20 | ECG_ITS ---
Measurements Intervals [place] Rate: 107 P: 86 [place]: 123 QRS: 60 QRSD: 72 T: 89 QT: 322 QTc: 431 Interpretive Statements SINUS TACHYCARDIA POSSIBLE LEFT ATRIAL ENLARGEMENT ST ELEVATION IN ANTEROLAT/INF LEADS, PROBABLY EARLY REPOLARIZATION BORDERLINE T WAVE ABNORMALITY- HIGH LATERAL LEADS ABNORMAL ECG Electronically Signed On 03-09-2020 6:59:01 CDT by Quinton Bell D.O.
[2020-03-08 21:23] LABS: Troponin I < 0.012 ng/mL (0.000-0.034)
--- NOTE | 2020-03-08 21:23 | WPDPROCEDUR ---
Procedures Central Line Placement Right IJ: Central Line Date: 03/08/20 Central Line Time: 21:23 Performed Emergently - Given emergent patient condition, temporal constraints may have precluded informed consent.: Yes Patient Position: supine Patient placed on monitor/pulse ox: Yes Provider Prep: mask, sterile gown, sterile gloves, Max. sterile barrier precautions, cap, hand hygiene and emergent ? sterile barriers not used Central line prep: Povidone-Iodine 1% Ultrasound used for placement: Yes Central line lumen inserted: triple Albanian: 7 Length (cm): 17 Depth of Insertion (cm): 15 Post procedure: sutured in place, good blood return, all ports aspirated, flushed, capped, tegaderm, hemostatic disc and aseptic technique maintained throughout procedure Post procedure x-ray: tip of catheter in good position Patient tolerated procedure: well Complications: none Additional comments: Date of service of procedure was 03/08/2020 at 21:00 hrs.
[2020-03-08] MEDS: SODIUM CHLORIDE 0.9% IV 1,000 ML 125 ML IV CONT (21:30)
[2020-03-08] MEDS: NOREPINEPHRINE 8 MG/D5W 250 ML 8 MG/250 ML BAG 9.4 MG IV CONT (21:40)
--- NOTE | 2020-03-08 21:40 | PCRCNOTE ---
Pt did not receive tx due to intubation, and central line placement.
--- NOTE | 2020-03-08 21:41 | WPDPROCEDUR ---
Procedures Intubation Intubation Date: 03/08/20 Intubation Time: 19:00 A pre-procedural Time-Out was completed immediately before starting the procedure and confirmed: Patient Identification, Site, Procedure, Patient Position and the Availability of Requisite Equipment: Yes Sedative: etomidate Mg given: 10 Paralytic: succinylcholine Mg given: 20 Laryngoscope: fiber optic video scope Assist device used: fiber optic device ET tube size: cuffed Tube secured depth (cm): 23 Tube secured location: lips Tube placement confirmation: visualized tube passing through cords and equal breath sounds bilaterally Patient tolerated procedure: well Intubation complications: none
--- NOTE | 2020-03-08 21:44 | WPDPROCEDUR ---
Procedures Central Line Placement Right Femoral: Additional comments: Attempted to place a central line in both femoral veins. I was able to get a blood return but was not able to advance the guidewire. I used the ultrasound and was able to visualize the vein however I could not advance the guidewire. I was unsuccessful in getting a central line in her from oral veins bilaterally. I spoke to Dr. pappas concerning a central line and he was able to place a central line.
--- NOTE | 2020-03-08 21:48 | PHAR ---
PT'S HOME MED SOOLANTRA (IVERMECTIN) 1% CREAM VERIFIED BY PHARMACY
[2020-03-08] MEDS: FAMOTIDINE 20 MG/2 ML VIAL IV PUSH (22:18)
[2020-03-08] MEDS: FOLIC ACID 1 MG/0.2 ML INJ IV PUSH (22:20)
[2020-03-08] MEDS: THIAMINE HCL 200 MG/2 ML VIAL 100 MG IV PUSH (22:21)
[2020-03-08] MEDS: methylPREDNISolone SOD SUCC 125 MG VIAL 80 MG IV PUSH (22:22)
[2020-03-08] MEDS: MAGNESIUM SULF 2 GM/WATER 50ML 2 GM/50 ML BAG IVPB (22:37)
[2020-03-08 22:59] LABS: Alveolar/Arterial O2 Gradient 132.6 mmHg; Base Excess ABG 26.3 mEq/l (+/-2.0); Carboxyhemoglobin 1.7 % THb (0-2.0); Fractional Inspired Oxygen 50 %; HCO3 ABG 59.2 mEq/l (22.0-26.0); Methemoglobin ABG 0.5 %THb (0-1.5); Oxygen Saturation ABG 93.8 % (95.0-100.0); Oxyhemoglobin 93.3 % THb (90.0-100.0); PO2 ABG 83.6 mmHg (80.0-100.0); PO2 FiO2 Ratio Arterial Blood 1.67 %; Reduced Hemoglobin 4.5 %THb (0-5.0); Total Hemoglobin 12.1 g/dL (12.0-18.0); pH ABG 7.294 (7.350-7.450)
[2020-03-08 23:07] LABS: PCO2 ABG 124.7 mmHg (35.0-45.0)
[2020-03-08 23:08] LABS: Device VENTILATOR; Site Drawn LEFT BRACHIAL
[2020-03-08 23:09] LABS: Arterial Blood Gas PEEP 5 cmH2O; Arterial Blood Gas Tidal Volume 240 ml; Arterial Blood Gas Vent Mode CMV; Arterial Blood Gas Ventilator rate 14 /MIN
[2020-03-09] VITALS (20 sets, daily range): BP systolic 88–119; BP diastolic 65–77; PULSE 62–99; RESP 18–21; TEMP 37.1–37.8; O2SAT 95–100; BMI 15.2
--- NOTE | 2020-03-09 | ECHO_ITS ---
Patient Info Name: Esther Brink Age: 54 years : 1965 Gender: Female Ht: 61 in Wt: 74 lbs BSA: 1.19 m2 HR: 63 bpm BP: 99 / 66 mmHg Heart Rhythm: Sinus Rhythm Technical Quality: Good Exam Date: 03/09/2020 2:08 PM Exam Location: [facility] Patient Status: Inpatient Admit Date: 03/08/2020 Staff Ordering Physician: Margaret Alcaraz NP Registered Midwife: Russ Rincon, EMILICS, RT Attending Provider: Danielle Robbins MD Referring Physician: Kieran CATHERINE; Exam Type: CA echo doppler color flow Study Info Indications R94.31 - Abnormal electrocardiogram ECG EKG Complete two-dimensional, color flow and Doppler transthoracic echocardiogram is performed. Summary 1. Left ventricular systolic function is normal, estimated at 60-65%. 2. Right ventricular chamber dimension is normal. 3. No valvular abnormalities. 4. Pericardium has a thickened nodular appearance. Left Ventricle Left ventricular systolic function is normal, estimated at 60-65%. The left ventricular diastolic function is normal. Right Ventricle Right ventricular chamber dimension is normal. Left Atria Left atrial chamber dimension is normal. Right Atria Right atrial chamber dimension is normal. Aortic Valve The aortic valve is normal. Pulmonic Valve The pulmonic valve is not well visualized. Mitral Valve The mitral valve has normal leaflets. Tricuspid Valve The tricuspid valve leaflets are normal. Pericardium/Pleural The pericardium appears thickened pericardium. Aorta The aortic root size at the sinus of Valsalva is normal. Left Ventricular Outflow Tract Name Value Normal LVOT 2D LVOT Diameter 1.9 cm LVOT Doppler LVOT Peak Gradient 2 mmHg LVOT Mean Gradient 1 mmHg LVOT VTI 13 cm LVOT VTI/AV VTI Ratio 0.9 LVOT Stroke Volume 37 ml LVOT CO 3.0 l/min LVOT CI 2.5 l/min/m2 Mitral Valve Name Value Normal MV Doppler MV Decel [place] 240 cm/s2 MV PHT 76 ms MV Area (PHT) 2.9 cm2 4.0-5.0 MV Diastolic Function MV E Peak Velocity 63 cm/s MV A Peak Velocity 59 cm/s MV E/A 1.1 MV Decel Time 263 ms Tricuspid Valve Name Value Normal TV Diastolic Function
[2020-03-09] MEDS: SODIUM CHLORIDE 0.9% IV 500 ML 999 ML IV CONT (00:02)
[2020-03-09 00:21] LABS: D Dimer 1.07 ug/mL (<0.48)
[2020-03-09 00:30] LABS: Troponin I < 0.012 ng/mL (0.000-0.034)
[2020-03-09 00:59] LABS: Alveolar/Arterial O2 Gradient 135.7 mmHg; Base Excess ABG 12.8 mEq/l (+/-2.0); Carboxyhemoglobin 1.3 % THb (0-2.0); Fractional Inspired Oxygen 50 %; HCO3 ABG 41.8 mEq/l (22.0-26.0); Methemoglobin ABG 0.4 %THb (0-1.5); Oxygen Content ABG 15.8 %vol (16.0-22.0); Oxygen Saturation ABG 98.2 % (95.0-100.0); Oxyhemoglobin 96.2 % THb (90.0-100.0); PO2 ABG 129.2 mmHg (80.0-100.0); PO2 FiO2 Ratio Arterial Blood 2.58 %; Reduced Hemoglobin 2.1 %THb (0-5.0); Total Hemoglobin 11.5 g/dL (12.0-18.0); pH ABG 7.328 (7.350-7.450)
[2020-03-09 01:01] LABS: Device VENTILATOR; Modified Allen's Test Pass; PCO2 ABG 81.4 mmHg (35.0-45.0); Site Drawn LEFT RADIAL
[2020-03-09 01:03] LABS: Arterial Blood Gas PEEP 5 cmH2O; Arterial Blood Gas Tidal Volume 240 ml; Arterial Blood Gas Vent Mode CMV; Arterial Blood Gas Ventilator rate 20 /MIN
[2020-03-09 03:22] LABS: Basophils Percent Auto 0.2 % (0.2-1.2); Hematocrit 35.1 % (37.0-47.0); Hemoglobin 10.2 g/dL (12.0-15.0); Immature Granulocyte Absolute 0.12 K/mm3 (0.00-0.031); Immature Granulocyte Percent A 0.7 % (0-0.5); Lymphocytes Absolute Auto 0.18 K/mm3 (0.9-3.2); Mean Corpuscular HGB Conc 29.1 g/dl (32-36); Mean Corpuscular Hemoglobin 30.4 pg (26-34); Mean Corpuscular Volume 104.8 fl (80-100); Monocytes Absolute Auto 0.4 K/mm3 (0.1-0.6); Monocytes Percent Auto 2.3 % (2.6-8.5); Neutrophils Absolute Auto 17.5 K/mm3 (1.3-6.7); Neutrophils Percent Auto 95.8 % (45.5-73.1); Platelet Count Result 236 k/mm3 (150-375); Red Blood Count 3.35 M/mm3 (4.2-5.4); Red Cell Distribution Width 12.2 % (11.5-14.5); White Blood Count 18.2 K/mm3 (4.5-10.0)
[2020-03-09] MEDS: SODIUM CHLORIDE 0.9% IV 1,000 ML 125 ML IV CONT (03:28)
[2020-03-09 03:47] LABS: Add Urine Microscopic? YES; Appearance Urine Cloudy (Clear); Bilirubin Urine Negative (Negative); Blood Urine 2+ (Negative); Color Urine Yellow (Yellow); Glucose Urine UA Negative (Negative); Ketones Urine 2+ mg/dL (Negative); Leukocyte Esterase Ur Negative LEU/UL (NEGATIVE); Mucus Urine Rare /lpf; Nitrate Urine Negative (Negative); Protein Urine 1+ mg/dL (Negative); RBC Urine 51-75 /hpf (0-2); Specific Grav Ur 1.029 (1.001-1.035); Squamous Epithelial Cell Urine Occasional /hpf (Few); Urobilinogen Urine Negative mg/dL (<2.0)
[2020-03-09 03:48] LABS: Troponin I < 0.012 ng/mL (0.000-0.034)
[2020-03-09 04:16] LABS: Thyroid Stimulating Hormone Reflex 0.294 uIU/mL (0.465-4.68)
[2020-03-09 04:23] LABS: Alanine Aminotransferase 18 U/L (4-35); Alkaline Phosphatase 62 U/L (38-126); Aspartate Amino Transferase 33 U/L (14-36); Bilirubin,Total 0.5 mg/dL (0.2-1.3); Blood Urea Nitrogen 18 mg/dL (7-17); Calcium 7.2 mg/dL (8.4-10.2); Carbon Dioxide > 40 mmol/L (22-30); Chloride 87 mmol/L (98-107); Estimated CRCL calculation 68 ml/min; Estimated Glomerular Filt Rate > 60; Glucose 146 mg/dL (65-105); Magnesium 2.4 mg/dL (1.6-2.3); Potassium 3.8 mmol/L (3.4-5.0); Sodium 136 mmol/L (137-145)
[2020-03-09 05:49] LABS: Free T4 Free Thyroxine Reflex 0.77 ng/dL (0.78-2.19)
[2020-03-09] MEDS: methylPREDNISolone SOD SUCC 125 MG VIAL 80 MG IV PUSH (06:23)
--- NOTE | 2020-03-09 08:22 | PCDIET ---
After several attempts of notification, elly Herrera has been updated of pts admission and status.
[2020-03-09] MEDS: FAMOTIDINE 20 MG/2 ML VIAL IV PUSH ×2 (08:43→21:11)
[2020-03-09] MEDS: FOLIC ACID 1 MG/0.2 ML INJ IV PUSH (08:48)
[2020-03-09] MEDS: THIAMINE HCL 200 MG/2 ML VIAL 100 MG IV PUSH (08:49)
[2020-03-09 09:04] LABS: Alveolar/Arterial O2 Gradient 105.5 mmHg; Base Excess ABG 18.2 mEq/l (+/-2.0); Carboxyhemoglobin 0.8 % THb (0-2.0); Fractional Inspired Oxygen 40 %; HCO3 ABG 47.3 mEq/l (22.0-26.0); Methemoglobin ABG 0.3 %THb (0-1.5); Oxygen Content ABG 15.2 %vol (16.0-22.0); Oxygen Saturation ABG 94.9 % (95.0-100.0); Oxyhemoglobin 94.4 % THb (90.0-100.0); PO2 ABG 81.6 mmHg (80.0-100.0); PO2 FiO2 Ratio Arterial Blood 2.04 %; Reduced Hemoglobin 4.5 %THb (0-5.0); Total Hemoglobin 11.4 g/dL (12.0-18.0); pH ABG 7.362 (7.350-7.450)
[2020-03-09 09:08] LABS: Arterial Blood Gas Ventilator rate 20 /MIN; Device VENTILATOR; PCO2 ABG 85.3 mmHg (35.0-45.0); Site Drawn LEFT BRACHIAL
[2020-03-09 09:13] LABS: Arterial Blood Gas PEEP 5 cmH2O; Arterial Blood Gas Tidal Volume 240 ml; Arterial Blood Gas Vent Mode ASSIST CONTROL
--- NOTE | 2020-03-09 09:15 | WPDCNINT ---
Assessment and Plan Assessment and plan (1) Acute and chronic respiratory failure: Code(s): J96.20 - Acute and chronic respiratory failure, unspecified whether with hypoxia or hypercapnia Status: Acute Assessment and Plan: patient with acute on chronic hypercapnic respiratory failure likely related to COPD exacerbation - pCO2 was elevated to 163.9, patient was intubated on 03/08/2020 - patient has history of severe emphysema, left upper lobectomy in 2013 due to spontaneous pneumothorax. - patient on CMV mode, will increase tidal volume in decreased rate, increased I to E ratio, currently on 35% FiO2 with good O2 sats. - Continue Zosyn and vancomycin - cultures have been obtained and pending - will start bronchodilator - sedated with fentanyl and Versed infusion (2) COPD exacerbation: Code(s): J44.1 - Chronic obstructive pulmonary disease with (acute) exacerbation Status: Acute Assessment and Plan: patient with history of COPD on 3-4 L of oxygen at home, follows with Dr. Suggs - will consult pulmonary - continue bronchodilators as above along with antibiotics - patient on Solu-Medrol, will decrease dose as she is not wheezing (3) Alcohol abuse, daily use: Code(s): F10.10 - Alcohol abuse, uncomplicated Status: Chronic Assessment and Plan: patient with alcohol abuse - continue thiamine, folic acid - monitor for alcohol withdrawal (4) ST elevation on ECG: Code(s): R94.31 - Abnormal electrocardiogram [ECG] [EKG] Status: Acute Assessment and Plan: ST-elevation on EKG, troponin x3 were negative - cardiology was consulted, recommended COVID-19 testing - will obtain echocardiogram, which has been ordered (5) Tobacco abuse: Code(s): Z72.0 - Tobacco use Status: Chronic Assessment and Plan: patient continues to smoke half a packet a day - will scholarship counselor on cessation of smoking when she is extubated (6) Accident due to mechanical fall without injury: Code(s): W19.XXXA - Unspecified fall, initial encounter Status: Acute Assessment and Plan: patient had a mechanical fall, CT scan of the head did not show any acute injuries, cervical, lumbar spine showed mild spondylolysis - continue with pain control (7) Suspected 2019 novel coronavirus infection: Code(s): Z20.828 - Contact with and (suspected) exposure to other viral communicable diseases Status: Acute Assessment and Plan: patient with you respiratory failure, ST changes on EKG - SARS-CoV-2 PCR has been sent - patient placed on airborne, droplet, contact isolation (8) Shock: Code(s): R57.9 - Shock, unspecified Status: Acute Assessment and Plan: patient developed hypotension, likely shock positive pressure ventilation, infection - patient currently on Levophed, will maintain mean arterial pressures > 65 mmHg - continue vancomycin and Zosyn - blood in urine cultures have been obtained (9) DVT prophylaxis: Code(s): Z29.9 - Encounter for prophylactic measures, unspecified Status: Acute Assessment and Plan: SCDs and will start Lovenox SQ (10) Dietary counseling and surveillance: Code(s): Z71.3 - Dietary counseling and surveillance Status: Acute Assessment and Plan: will start tube feeds Additional Plan will update family code status: Full code Critical care time spent: 43 minutes Due to a high probability of clinically significant, life threatening deterioration, the patient required my highest level of preparedness to intervene emergently and I personally spent this critical care time directly and personally managing the patient. This critical care time included obtaining a history; examining the patient; pulse oximetry; ordering and review of studies; arranging urgent treatment with development of a management plan; evaluation of patient's response to treat
[2020-03-09 09:39] LABS: Lactic Acid Reflex 0.6 mmol/L (0.7-2.1)
[2020-03-09 11:58] LABS: Glucose Point of Care 109 (65-105)
[2020-03-09] MEDS: ESCITALOPRAM OXALATE 10 MG TABLET PO (12:13)
[2020-03-09] MEDS: ENOXAPARIN 40 MG/0.4 ML SYRINGE SUB-Q (12:13)
[2020-03-09] MEDS: SODIUM CHLORIDE 0.9% IV 1,000 ML 75 ML IV CONT (12:14)
[2020-03-09] MEDS: ALPRAZOLAM 0.5 MG TABLET PO ×2 (12:16→18:30)
[2020-03-09 13:37] LABS: SARS-CoV-2 RNA PCR Negative
--- NOTE | 2020-03-09 14:18 | PM.IMPN ---
Progress Note: A&P Assessment and Plan (1) Acute on chronic respiratory failure with hypoxia and hypercapnia: Code(s): J96.21 - Acute and chronic respiratory failure with hypoxia; J96.22 - Acute and chronic respiratory failure with hypercapnia Status: Acute Assessment and Plan: Patient started on BiPAP machine from the emergency room but with significantly elevated pCO2 and decreased mentation, patient transferred to ICU and intubated on 03/08/2020. Appreciate help from plastic shaper. Remains sedated on ventilator. Management of ventilator per plastic shaper. On IV Zosyn and vancomycin. Blood and urine cultures pending. Continue IV steroids and albuterol HFA. (2) COPD exacerbation: Code(s): J44.1 - Chronic obstructive pulmonary disease with (acute) exacerbation Status: Acute Assessment and Plan: Now on ventilator as noted above. Continue IV steroids. Also has albuterol HFA. Spiriva on hold. (3) Shock: Code(s): R57.9 - Shock, unspecified Status: Acute Assessment and Plan: Secondarily also developed shock. Remains on Levophed. Blood pressure reviewed on 03/09/2020 and presently stable. Telemetry reviewed on 03/09/2020 with sinus rhythm. Cultures pending as noted above. Remains on IV antibiotics as noted above. Will continue to monitor. (4) Encephalopathy: Code(s): G93.40 - Encephalopathy, unspecified Status: Acute Assessment and Plan: No acute intracranial abnormality. Most likely due to the hypercapnia and hypoxia. Currently sedated. Will need to assess mental status once no longer sedated. (5) ST elevation on ECG: Code(s): R94.31 - Abnormal electrocardiogram [ECG] [EKG] Status: Acute Assessment and Plan: Patient with noted diffuse ST changes. Cardiology was consulted yesterday with patient not felt to have STEMI. Appreciate input from Cardiology today. Serial troponin levels all negative. No plan for ischemia workup at this time. COVID-19 testing negative. Echocardiogram done with results pending. (6) Suspected 2019 novel coronavirus infection: Code(s): Z20.828 - Contact with and (suspected) exposure to other viral communicable diseases Status: Ruled-out Assessment and Plan: COVID-19 testing initiated on admission. Testing negative today. Isolation discontinued. (7) Alcohol abuse, daily use: Code(s): F10.10 - Alcohol abuse, uncomplicated Status: Chronic Assessment and Plan: Patient initially on Precedex drip that was discontinued after blood pressure dropped. Does have alprazolam as needed. Will continue IV thiamine and folic acid. (8) Accident due to mechanical fall without injury: Qualifiers: Encounter type: initial encounter Qualified Code(s): W19.XXXA - Unspecified fall, initial encounter Code(s): W19.XXXA - Unspecified fall, initial encounter Status: Acute Assessment and Plan: Did have fall which precipitated reason for presentation to ER. CT brain negative. CT cervical spine with mild cervical spondylosis but no acute findings. Lumbar x-ray with no acute osseous abnormality. (9) Anorexia: Code(s): R63.0 - Anorexia Status: Acute Assessment and Plan: Probably due to COPD and/or alcoholism. Now on tube feedings as she is intubated. (10) DVT prophylaxis: Code(s): Z29.9 - Encounter for prophylactic measures, unspecified Status: Acute Assessment and Plan: Lovenox. Time Spent With Patient Time with patient: 15 - 25 minutes Subjective Date/time seen: 03/09/20 14:18 Interval history: Date of Service: 03/09/2020. Admitted with acute on chronic respiratory failure, COPD exacerbation, encephalopathy. Required transfer to ICU on 03/08/2020 with intubation. Sedated on ventilator. Review of Systems Review of Systems: ROS unobtainable: Yes unobtainable due to endotracheal tube Genitourinary: Comments: Tonja
[2020-03-09] MEDS: methylPREDNISolone SOD SUCC 40 MG VIAL IV PUSH ×2 (15:29→21:11)
[2020-03-09] MEDS: NOREPINEPHRINE 8 MG/D5W 250 ML 8 MG/250 ML BAG 5.6 MG IV CONT (15:30)
--- NOTE | 2020-03-09 16:01 | PM.CNCAR ---
Assessment and Plan Additional Plan Transient global ST segment elevation noted last evening in this 54-year-old lady who presents with acute on chronic respiratory insufficiency requiring intubation last night. By exam and chest x-ray the patient obviously has severe chronic lung disease. She has a markedly abnormal ECG last night when she was having a hard time breathing but interestingly that rapidly normalized following intubation. Her biomarkers demonstrate no evidence of acute myocardial necrosis. At this time I do not believe this patient needs or would benefit from an urgent ischemia evaluation ( angiogram ) as her clinical presentation seemed to have nothing at all to do with an acute coronary syndrome. She did have an elevated D-dimer I suppose we might consider the diagnosis of a pulmonary embolism. Depending on her clinical course wean might consider an ischemia evaluation in the future however this is obviously a patient who is extremely frail presumably due to her chronic lung disease and on the surface appears to be a very poor candidate for invasive cardiac procedures Issa Ramos MD [facility] History of Present Illness History of Present Illness Consult date/time: Date of service: 03/09/20 16:01 Reason For Visit: acute on chronic respiratory failure Narrative: This is a 54-year-old patient who I am requested to consult on today because of abnormalities that were noted on her EKG last evening. Patient is currently intubated in the ICU and obviously therefore unable to provide any history. The entire history is clean from reviewing her chart. She came to the [facility] emergency room twice yesterday after falling and complaining of low back pain after falling. Apparently she had spilled some water on her kitchen floor slipped on the slit on the slippery floor and fell. She was having significant low back pain after that. On the 1st visit to the emergency room there was no fracture identified or significant trauma she was discharged home. Apparently the pain became much worse and she return to the emergency room later in the afternoon. At that time it was also apparent that she was having difficulty breathing and blood gases demonstrated significant hypercarbia. She was admitted to the hospital eventually intubated and brought to the ICU. During this period of time series of electrocardiograms were recorded. At no time was she complaining of any chest pain. The ECG last night at about 8:[address] demonstrated diffuse global ST segment elevation. There was no ST segment depression in typical of an acute current of injury. The electrocardiogram shortly thereafter after being intubated quickly normalized. The patient had a series of troponin levels done which are all negative. In this setting I am seeing her in consultation. Again this is a intubated patient who is on the ventilator in the ICU. Her previous history apparently remarkable for severe chronic lung disease with emphysema also history of bronchiectasis with the labs and spontaneous pneumothoraces with surgery for this in the past. According to notes in the chart she smokes heavily. There is no previous history in the chart of heart disease that is mention. Review of Systems Review of Systems: ROS unobtainable: Yes unobtainable due to medical condition PMFSH Past Medical History Medical History Asthma Chronic respiratory failure COPD (chronic obstructive pulmonary disease) Generalized anxiety disorder with panic attacks GERD (gastroesophageal reflux disease) Spontaneous pneumothorax August 2012. These were recurrent on the left and she had a subsequent VATS procedure and apical blebectomy as well as pleurodesis. Steroid dependent Tobacco abuse Surgical History Surgical History History of bilateral tubal ligation History of History of tonsi
[2020-03-09 17:39] LABS: Glucose Point of Care 99 (65-105)
[2020-03-09 18:36] LABS: Glucose Point of Care 111 (65-105)
[2020-03-09 23:43] LABS: Glucose Point of Care 137 (65-105)
[2020-03-10] VITALS (28 sets, daily range): BP systolic 84–132; BP diastolic 51–76; PULSE 53–66; RESP 16–21; TEMP 36.9–37.9; O2SAT 92–100
[2020-03-10 04:09] LABS: Base Excess ABG 17.1 mEq/l (+/-2.0); Carboxyhemoglobin 0.4 % THb (0-2.0); Fractional Inspired Oxygen 35 %; HCO3 ABG 44.8 mEq/l (22.0-26.0); Methemoglobin ABG 0.2 %THb (0-1.5); Oxygen Content ABG 12.2 %vol (16.0-22.0); Oxyhemoglobin 90.8 % THb (90.0-100.0); PO2 FiO2 Ratio Arterial Blood 1.91 %; Reduced Hemoglobin 8.6 %THb (0-5.0); Total Hemoglobin 9.5 g/dL (12.0-18.0); pH ABG 7.383 (7.350-7.450)
[2020-03-10 04:12] LABS: Device VENTILATOR; Modified Allen's Test Pass; Site Drawn LEFT RADIAL
[2020-03-10 04:13] LABS: Arterial Blood Gas PEEP 5 cmH2O; Arterial Blood Gas Tidal Volume 320 ml; Arterial Blood Gas Vent Mode CMV; Arterial Blood Gas Ventilator rate 18 /MIN
[2020-03-10] MEDS: methylPREDNISolone SOD SUCC 40 MG VIAL IV PUSH ×3 (05:21→20:58)
[2020-03-10 05:28] LABS: Hemoglobin 8.2 g/dL (12.0-15.0); Mean Corpuscular HGB Conc 30.4 g/dl (32-36); Mean Corpuscular Hemoglobin 30.6 pg (26-34); Mean Corpuscular Volume 100.7 fl (80-100); Mean Platelet Volume 9.3 fl (7.4-10.4); Platelet Count Result 184 k/mm3 (150-375); Red Blood Count 2.68 M/mm3 (4.2-5.4); Red Cell Distribution Width 12.5 % (11.5-14.5); White Blood Count 8.1 K/mm3 (4.5-10.0)
[2020-03-10 05:49] LABS: Blood Urea Nitrogen 24 mg/dL (7-17); CRP 8.4 mg/dL (<1.0); Calcium 7.5 mg/dL (8.4-10.2); Carbon Dioxide > 40 mmol/L (22-30); Chloride 88 mmol/L (98-107); Estimated CRCL calculation 78 ml/min; Estimated Glomerular Filt Rate > 60; Glucose 139 mg/dL (65-105); Magnesium 2.1 mg/dL (1.6-2.3); Phosphorus 2.9 mg/dL (2.5-4.5); Potassium 3.5 mmol/L (3.4-5.0); Sodium 131 mmol/L (137-145)
--- NOTE | 2020-03-10 06:11 | PM.PNCARD ---
Progress Note: A&P Additional Plan 54-year-old woman who is very frail and cachectic related to chronic lung disease and chronic ethanol abuse. ECG abnormalities in the sense of acute respiratory failure prior to when she was intubated. No other clinical evidence of an acute coronary syndrome or DE. There was significant concern on the part of the hospital staff the patient was having an infarction. Thankfully troponin levels were normal. Given her extreme frail condition I do not plan on or anticipate bringing this lady for catheterization Issa Ramos MD [facility] Subjective Date/time seen: Date of service: 03/10/20 06:11 Interval history: Follow-up visit in 54-year-old lady with abnormal ECG Patient is still intubated sedated in the ICU Exam Const: Other: Sedated intubated white female extremely frail Staff tell me the patient is frequently admitted here with respiratory problems and problems related to excessive ethanol consumption HENMT: Mouth: Yes dry mucous membranes Eyes: Sclera: sclerae normal Neck: Neck: no JVD Thyroid: thyroid normal Other: No carotid bruits Resp: Other: Inspiratory and expiratory rhonchi breath sounds per the ventilator Cardio: Rate: regular rate Rhythm: regular rhythm GI: Auscultation: normal bowel sounds Skin: General skin exam: normal color Extrem: General: normal to inspection Objective Data Vital Signs Vital Signs: Vital Signs - 24 hr 03/09/20 08:00 03/09/20 08:40 03/09/20 10:00 Temperature 37.6 C 37.2 C Pulse Rate 84 84 85 Respiratory Rate 20 21 H Blood Pressure 99/65 L 108/70 Pulse Oximetry 96 95 97 03/09/20 10:19 03/09/20 12:00 03/09/20 14:00 Temperature 37.5 C 37.4 C Pulse Rate 84 93 79 Respiratory Rate 18 18 Blood Pressure 107/73 98/74 L Pulse Oximetry 99 100 100 03/09/20 16:00 03/09/20 17:28 03/09/20 18:00 Temperature 37.5 C 37.5 C Pulse Rate 78 88 73 Respiratory Rate 18 18 Blood Pressure 105/75 113/76 Pulse Oximetry 100 99 99 03/09/20 19:15 03/09/20 20:00 03/09/20 22:00 Temperature 37.4 C 37.1 C Pulse Rate 66 64 62 Respiratory Rate 18 18 Blood Pressure 113/77 119/76 Pulse Oximetry 100 100 99 03/09/20 22:34 03/10/20 00:00 03/10/20 01:42 Temperature 37.2 C Pulse Rate 62 59 L 62 Respiratory Rate 18 Blood Pressure 92/51 L Pulse Oximetry 99 99 98 03/10/20 02:00 03/10/20 04:00 03/10/20 04:16 Temperature 37.2 C 37.3 C Pulse Rate 61 63 60 Respiratory Rate 18 18 Blood Pressure 92/53 L 94/54 L Pulse Oximetry 95 92 98 Intake/Output Intake/Output: Intake & Output 03/07/20 03/08/20 03/09/20 03/10/20 23:59 23:59 23:59 23:59 Intake Total 1168 4410.6 907 Output Total 900 225 Balance 1168 3510.6 682 Meds/Results Medications: Active Medications Generic Name Dose Route Start Last Admin Trade Name Freq PRN Reason Stop Dose Admin Albuterol 2 puff 03/09/20 12:00 Proventil Hfa INHALATION QIDRT DAILY Alprazolam 0.5 mg 03/09/20 13:00 03/09/20 18:30 Xanax PO 0.5 mg TID DAILY Administration Enoxaparin Sodium 40 mg 03/09/20 09:55 03/09/20 12:13 Lovenox SUB-Q 40 mg DAILY DAILY Administration Escitalopram Oxalate 10 mg 03/09/20 10:45 03/09/20 12:13 Lexapro PO 10 mg QAM DAILY Administration Famotidine 20 mg 03/08/20 21:00 03/09/20 21:11 Pepcid Iv IV PUSH 20 mg Q12HR DAILY Administration Folic Acid 1 mg 03/09/20 09:00 03/09/20 08:48 Folic Acid Inj IV PUSH 1 mg QAM DAILY Administration Midazolam HCl 50 mg in 100 mls @ 4 mls/hr 03/08/20 19:15 03/10/20 05:00 Versed 50 Mg/D5w 100 Ml IV CONT 2 mg/hr .Q25H DAILY 4 mls/hr Titration Protocol 2 MG/HR Dopamine HCl/Dextrose 400 mg in 250 mls @ 0 mls/hr 03/08/20 20:30 03/09/20 06:17 Dopamine 400 Mg/D5w 250 Ml IV CONT 0 mcg/kg/min .Q0M DAILY 0 mls/hr Titration Protocol 0 MCG/KG/MIN Norepinephrine Bitartrate 8 mg in 250 mls @ 1.875 mls/hr 03/08/20 20:
[2020-03-10] MEDS: ALBUTEROL SULFATE NEB 2.5 MG/0.5 ML INH INHALATION ×3 (08:03→19:56)
[2020-03-10] MEDS: IPRATROPIUM BR 0.02% INH SOLN 0.5 MG/2.5 ML VIAL INHALATION ×3 (08:03→19:57)
[2020-03-10] MEDS: THIAMINE HCL 200 MG/2 ML VIAL 100 MG IV PUSH (08:58)
[2020-03-10] MEDS: ENOXAPARIN 40 MG/0.4 ML SYRINGE SUB-Q (08:59)
[2020-03-10] MEDS: ESCITALOPRAM OXALATE 10 MG TABLET PO (08:59)
[2020-03-10] MEDS: FAMOTIDINE 20 MG/2 ML VIAL IV PUSH ×2 (08:59→20:58)
--- NOTE | 2020-03-10 09:02 | WPDINTPN ---
Progress Note: A&P Assessment and Plan (1) Acute and chronic respiratory failure: Qualifiers: Respiratory failure complication: hypercapnia Qualified Code(s): J96.22 - Acute and chronic respiratory failure with hypercapnia Code(s): J96.20 - Acute and chronic respiratory failure, unspecified whether with hypoxia or hypercapnia Status: Acute Assessment and Plan: patient with acute on chronic hypercapnic respiratory failure likely related to COPD exacerbation - pCO2 was elevated to 163.9, patient was intubated on 03/08/2020 - patient has history of severe emphysema, left upper lobectomy in 2012 due to spontaneous pneumothorax. - patient on CMV mode, increased tidal volume, currently on 35% FiO2 with good O2 sats. - Continue Zosyn and vancomycin - cultures have been obtained and pending - continue bronchodilators, - sedated with fentanyl and Versed infusion, maintained RASS of 0 to -2 (2) COPD exacerbation: Code(s): J44.1 - Chronic obstructive pulmonary disease with (acute) exacerbation Status: Acute Assessment and Plan: patient with history of COPD on 3-4 L of oxygen at home, follows with Dr. Suggs - pulmonology consulted - continue bronchodilators and antibiotics - continue Solu-Medrol, currently on 40 mg IV q6h (3) Alcohol abuse, daily use: Code(s): F10.10 - Alcohol abuse, uncomplicated Status: Chronic Assessment and Plan: patient with alcohol abuse - continue thiamine, folic acid - monitor for alcohol withdrawal (4) ST elevation on ECG: Code(s): R94.31 - Abnormal electrocardiogram [ECG] [EKG] Status: Acute Assessment and Plan: ST-elevation on EKG, troponin x3 were negative - appreciate Cardiology evaluation recommendation, continue current management - echocardiogram has been done and report is pending (5) Tobacco abuse: Code(s): Z72.0 - Tobacco use Status: Chronic Assessment and Plan: patient continues to smoke half a packet a day - will tour counselor on cessation of smoking when she is extubated (6) Accident due to mechanical fall without injury: Qualifiers: Encounter type: initial encounter Qualified Code(s): W19.XXXA - Unspecified fall, initial encounter Code(s): W19.XXXA - Unspecified fall, initial encounter Status: Acute Assessment and Plan: patient had a mechanical fall, CT scan of the head did not show any acute injuries, cervical, lumbar spine showed mild spondylolysis - continue with pain control (7) Suspected 2019 novel coronavirus infection: Code(s): Z20.828 - Contact with and (suspected) exposure to other viral communicable diseases Status: Ruled-out Assessment and Plan: patient with acute respiratory failure, ST changes on EKG - SARS-CoV-2 PCR is negative - patient taken off airborne, droplet, contact isolation (8) Shock: Code(s): R57.9 - Shock, unspecified Status: Acute Assessment and Plan: patient developed hypotension, likely shock positive pressure ventilation, infection - patient currently on Levophed, will maintain mean arterial pressures > 65 mmHg - continue vancomycin and Zosyn - blood and urine cultures have been obtained and pending results (9) Atrial fibrillation: Qualifiers: Atrial fibrillation type: unspecified Qualified Code(s): I48.91 - Unspecified atrial fibrillation Code(s): I48.91 - Unspecified atrial fibrillation Status: Acute Assessment and Plan: patient does not have a history of atrial fibrillation, this seems to be new onset atrial fibrillation, likely related to COPD exacerbation, acute respiratory failure, septic shock - cardiology following the patient, - currently rate controlled - will place patient on full-dose anticoagulation with Lovenox (10) Dietary counseling and surveillance: Code(s): Z71.3 - Dietary counseling and obrien
[2020-03-10] MEDS: ALPRAZOLAM 0.5 MG TABLET PO ×2 (09:04→15:54)
[2020-03-10] MEDS: FOLIC ACID 1 MG/0.2 ML INJ IV PUSH (09:05)
[2020-03-10] MEDS: methylPREDNISolone SOD SUCC 125 MG VIAL IV PUSH (10:26)
[2020-03-10] MEDS: SODIUM CHLORIDE 0.9% IV 1,000 ML 50 ML IV CONT (11:24)
[2020-03-10 11:47] LABS: Glucose Point of Care 131 (65-105)
--- NOTE | 2020-03-10 14:40 | PM.IMPN ---
Progress Note: A&P Assessment and Plan (1) Acute on chronic respiratory failure with hypoxia and hypercapnia: Code(s): J96.21 - Acute and chronic respiratory failure with hypoxia; J96.22 - Acute and chronic respiratory failure with hypercapnia Status: Acute Assessment and Plan: Patient started on BiPAP machine from the emergency room but with significantly elevated pCO2 and decreased mentation, patient transferred to ICU and intubated on 03/08/2020. . Remains sedated on ventilator. Management of ventilator per communications assistant. On IV Zosyn and vancomycin. Blood and urine cultures so far negative Continue IV steroids and albuterol HFA. (2) COPD exacerbation: Code(s): J44.1 - Chronic obstructive pulmonary disease with (acute) exacerbation Status: Acute Assessment and Plan: Now on ventilator as noted above. Continue IV steroids. Also has albuterol HFA. Spiriva on hold. (3) Shock: Code(s): R57.9 - Shock, unspecified Status: Acute Assessment and Plan: Secondarily also developed shock. Remains on Levophed. Blood pressure reviewed on 03/09/2020 and presently stable. Telemetry reviewed on 03/09/2020 with sinus rhythm. Cultures negative.. Remains on IV antibiotics as noted above. Will continue to monitor. (4) Encephalopathy: Code(s): G93.40 - Encephalopathy, unspecified Status: Acute Assessment and Plan: No acute intracranial abnormality. Most likely due to the hypercapnia and hypoxia. Currently sedated. Will need to assess mental status once no longer sedated. (5) ST elevation on ECG: Code(s): R94.31 - Abnormal electrocardiogram [ECG] [EKG] Status: Acute Assessment and Plan: Patient with noted diffuse ST changes. Cardiology was consulted yesterday with patient not felt to have STEMI. Appreciate input from Cardiology today. Serial troponin levels all negative. No plan for ischemia workup at this time. COVID-19 testing negative. Echocardiogram done with results pending. (6) Suspected 2019 novel coronavirus infection: Code(s): Z20.828 - Contact with and (suspected) exposure to other viral communicable diseases Status: Ruled-out Assessment and Plan: COVID-19 testing initiated on admission. Testing negative 03/09. Isolation discontinued. (7) Alcohol abuse, daily use: Code(s): F10.10 - Alcohol abuse, uncomplicated Status: Chronic Assessment and Plan: Patient initially on Precedex drip that was discontinued after blood pressure dropped. Does have alprazolam as needed. Will continue IV thiamine and folic acid. (8) Accident due to mechanical fall without injury: Qualifiers: Encounter type: initial encounter Qualified Code(s): W19.XXXA - Unspecified fall, initial encounter Code(s): W19.XXXA - Unspecified fall, initial encounter Status: Acute Assessment and Plan: Did have fall which precipitated reason for presentation to ER. CT brain negative. CT cervical spine with mild cervical spondylosis but no acute findings. Lumbar x-ray with no acute osseous abnormality. (9) Anorexia: Code(s): R63.0 - Anorexia Status: Acute Assessment and Plan: Probably due to COPD and/or alcoholism. Now on tube feedings as she is intubated. (10) DVT prophylaxis: Code(s): Z29.9 - Encounter for prophylactic measures, unspecified Status: Acute Assessment and Plan: Lovenox. Subjective Date/time seen: 03/10/20 14:40 Interval history: Date of Service: 03/10/2020. Admitted with acute on chronic respiratory failure, COPD exacerbation, encephalopathy 03/08 and shortlky thereafter. Required transfer to ICU with intubation. Sedated on ventilator. Exam Narrative: Exam Narrative: Blood pressure 104/62 pulse 60 temp 37.7? saturating 95% on FiO2 35% with 5 of peep Pupils equal reactive light sclera anicteric Lungs prolonged expiratory phase and expiratory wh
[2020-03-10 14:50] LABS: Vancomycin Trough < 5.0 ug/mL (10.0-20.0)
--- NOTE | 2020-03-10 17:59 | PM.CNPUL ---
Assessment and Plan Assessment and plan (1) Acute and chronic respiratory failure: Qualifiers: Respiratory failure complication: hypercapnia Qualified Code(s): J96.22 - Acute and chronic respiratory failure with hypercapnia Code(s): J96.20 - Acute and chronic respiratory failure, unspecified whether with hypoxia or hypercapnia Status: Acute Assessment and Plan: She presented March 08 with elevated pCO2 which worsened after being transferred to the floor, then was moved to the ICU for intubation, remains sedated and on pressors, Levophed. Continue ventilator management. *March 08 - admit and intubated after failing BiPAP (2) COPD exacerbation: Code(s): J44.1 - Chronic obstructive pulmonary disease with (acute) exacerbation Status: Acute (3) Tobacco abuse: Code(s): Z72.0 - Tobacco use Status: Chronic History of Present Illness History of Present Illness Consult date: 04/09/20 Requesting physician: Saurabh Conrad MD Reason for consult: COPD Chief complaint: acute on chronic respiratory failure Narrative: NEW: Esther Brink is a 54 yo female seen in consultation for acute on chronic respiratory failure with worsening pCO2. She has COPD, and history of L spontaneous pneumothorax twice in the past, had a L upper lobectomy in 2012. She came to the ER March 08 for a fall with injuries to her forearms. ABG was abnormal with initial pH 7.25/140 pCO2/ 87 p02 -->> BiPAP 7.28 / 163 pCO2 / pO2 64.7 with worsening hypercapnea; she was transferred to the ICU, intubated. She developed shock, had a right IJ central line for levophed. She had a CTA 03/10 showing no PE, and the presence of a small left pneumothorax. *10/23/2019 Alpha-1 AT labs are normal; MM phenotype, serum level 190 (normal 80-199) Review of Systems Review of Systems: ROS unobtainable: Yes unobtainable due to endotracheal tube PMFSH Past Medical History Medical History Asthma Chronic respiratory failure COPD (chronic obstructive pulmonary disease) Generalized anxiety disorder with panic attacks GERD (gastroesophageal reflux disease) Spontaneous pneumothorax August 2012. These were recurrent on the left and she had a subsequent VATS procedure and apical blebectomy as well as pleurodesis. Steroid dependent Tobacco abuse Surgical History Surgical History History of bilateral tubal ligation History of History of tonsillectomy Status post thoracotomy Left-sided VATS procedure and apical bleb resection with pleurodesis. Family History Family History Father Acute myocardial infarction Father No problems noted. Unknown No problems noted. Mother No problems noted. Sibling No problems noted. Social History Social History (Updated 03/08/20 @ 21:18 by Margaret Alcaraz NP) Social History: The patient lives with her son. She has smoked as many as 2 packs of cigarettes a day. She apparently drinks 2 or 3 beers a day, but heavier on the weekends. It sounds like the patient has 2 sons. She is a full code. Smoking packs per day: 0.5 Smoking cigarettes per day: 10.0 Years smoked: 35 Smoking pack-years: 17.50 Smoking status: Current every day smoker Tobacco type: cigarettes Second hand tobacco smoke exposure: Yes Alcohol intake: current Drinks per week: 5 Substance use: never Substance use type: does not use Additional living arrangements comments: Lives with her 17-year-old son. Gender identity (if verbalized by the patient): Female Spiritual care concerns: No Agree to blood products: Yes Meds Home Medications and Allergies Home Medications Medication Instructions Recorded Confirmed Type montelukast 10 mg PO DAILY 10/19/19 03/08/20 History omeprazole 20 mg PO DAILY 10/19/19 0
[2020-03-10 18:03] LABS: Glucose Point of Care 154 (65-105)
[2020-03-11] VITALS (33 sets, daily range): BP systolic 92–124; BP diastolic 55–79; PULSE 53–62; RESP 16–21; TEMP 36.9–37.4; O2SAT 93–100
[2020-03-11 00:15] LABS: Glucose Point of Care 133 (65-105)
[2020-03-11] MEDS: ALPRAZOLAM 0.5 MG TABLET PO ×3 (00:18→16:22)
[2020-03-11] MEDS: IPRATROPIUM BR 0.02% INH SOLN 0.5 MG/2.5 ML VIAL INHALATION ×4 (01:17→20:55)
[2020-03-11] MEDS: ALBUTEROL SULFATE NEB 2.5 MG/0.5 ML INH INHALATION ×4 (01:17→20:55)
[2020-03-11 03:50] LABS: Alveolar/Arterial O2 Gradient 94.8 mmHg; Base Excess ABG 10.5 mEq/l (+/-2.0); Carboxyhemoglobin 0.2 % THb (0-2.0); Device VENTILATOR; Fractional Inspired Oxygen 35 %; HCO3 ABG 36.1 mEq/l (22.0-26.0); Methemoglobin ABG 0.2 %THb (0-1.5); Modified Allen's Test Pass; Oxygen Content ABG 13.5 %vol (16.0-22.0); Oxygen Saturation ABG 97.1 % (95.0-100.0); Oxyhemoglobin 95.9 % THb (90.0-100.0); PCO2 ABG 54.1 mmHg (35.0-45.0); PO2 ABG 91.9 mmHg (80.0-100.0); PO2 FiO2 Ratio Arterial Blood 2.63 %; Reduced Hemoglobin 3.7 %THb (0-5.0); Site Drawn LEFT RADIAL; Total Hemoglobin 9.9 g/dL (12.0-18.0); pH ABG 7.442 (7.350-7.450)
[2020-03-11 03:51] LABS: Arterial Blood Gas PEEP 5 cmH2O; Arterial Blood Gas Tidal Volume 350 ml; Arterial Blood Gas Vent Mode CMV; Arterial Blood Gas Ventilator rate 18 /MIN
[2020-03-11] MEDS: methylPREDNISolone SOD SUCC 40 MG VIAL IV PUSH ×4 (04:14→21:56)
[2020-03-11 05:03] LABS: Hematocrit 27.4 % (37.0-47.0); Hemoglobin 8.3 g/dL (12.0-15.0); Mean Corpuscular HGB Conc 30.3 g/dl (32-36); Mean Corpuscular Hemoglobin 30.1 pg (26-34); Mean Corpuscular Volume 99.3 fl (80-100); Mean Platelet Volume 9.3 fl (7.4-10.4); Platelet Count Result 182 k/mm3 (150-375); Red Blood Count 2.76 M/mm3 (4.2-5.4); Red Cell Distribution Width 12.5 % (11.5-14.5); White Blood Count 4.9 K/mm3 (4.5-10.0)
[2020-03-11 05:28] LABS: Blood Urea Nitrogen 13 mg/dL (7-17); CRP 3.4 mg/dL (<1.0); Calcium 8.1 mg/dL (8.4-10.2); Carbon Dioxide > 40 mmol/L (22-30); Chloride 91 mmol/L (98-107); Estimated CRCL calculation 106 ml/min; Estimated Glomerular Filt Rate > 60; Glucose 170 mg/dL (65-105); Phosphorus 2.7 mg/dL (2.5-4.5); Potassium 3.6 mmol/L (3.4-5.0); Sodium 131 mmol/L (137-145)
[2020-03-11] MEDS: THIAMINE HCL 200 MG/2 ML VIAL 100 MG IV PUSH (08:19)
[2020-03-11] MEDS: FOLIC ACID 1 MG/0.2 ML INJ IV PUSH (08:20)
[2020-03-11] MEDS: PANTOPRAZOLE SODIUM IV 40 MG VIAL IV PUSH ×2 (08:20→20:07)
[2020-03-11] MEDS: ENOXAPARIN 40 MG/0.4 ML SYRINGE SUB-Q (08:21)
[2020-03-11] MEDS: ESCITALOPRAM OXALATE 10 MG TABLET PO (08:21)
[2020-03-11 09:20] LABS: Iron 32 ug/dL (37-170)
[2020-03-11] MEDS: SODIUM CHLORIDE 0.9% IV 1,000 ML 50 ML IV CONT (09:25)
[2020-03-11 09:29] LABS: Percent Iron Saturation 10 % (20-50)
[2020-03-11 09:40] LABS: Folic Acid 15.1 ng/mL (2.76->20)
[2020-03-11 12:02] LABS: Glucose Point of Care 142 (65-105)
--- NOTE | 2020-03-11 17:51 | PM.IMPN ---
Progress Note: A&P Assessment and Plan (1) Acute on chronic respiratory failure with hypoxia and hypercapnia: Code(s): J96.21 - Acute and chronic respiratory failure with hypoxia; J96.22 - Acute and chronic respiratory failure with hypercapnia Status: Acute Assessment and Plan: Patient started on BiPAP machine from the emergency room but with significantly elevated pCO2 and decreased mentation, patient transferred to ICU and intubated on 03/08/2020. . Remains sedated on ventilator. Management of ventilator per land measurer. On IV Zosyn and vancomycin. Blood and urine cultures so far negative Continue IV steroids and albuterol HFA. (2) COPD exacerbation: Code(s): J44.1 - Chronic obstructive pulmonary disease with (acute) exacerbation Status: Acute Assessment and Plan: Now on ventilator as noted above. Continue IV steroids. Also has albuterol HFA. Spiriva on hold. wean as possible (3) Shock: Code(s): R57.9 - Shock, unspecified Status: Acute Assessment and Plan: Secondarily also developed shock. Off Levophed now. . Cultures negative.. Remains on IV antibiotics as noted above. Will continue to monitor. (4) Encephalopathy: Code(s): G93.40 - Encephalopathy, unspecified Status: Acute Assessment and Plan: No acute intracranial abnormality. Most likely due to the hypercapnia and hypoxia. Currently sedated. Will need to assess mental status once no longer sedated. (5) ST elevation on ECG: Code(s): R94.31 - Abnormal electrocardiogram [ECG] [EKG] Status: Acute Assessment and Plan: Patient with noted diffuse ST changes. Cardiology was consulted yesterday with patient not felt to have STEMI. Appreciate input from Cardiology today. Serial troponin levels all negative. No plan for ischemia workup at this time. COVID-19 testing negative. Echocardiogram EF 65% with no wall motion abnormalities. (6) Suspected 2019 novel coronavirus infection: Code(s): Z20.828 - Contact with and (suspected) exposure to other viral communicable diseases Status: Ruled-out Assessment and Plan: COVID-19 testing initiated on admission. Testing negative 03/09. Isolation discontinued. (7) Alcohol abuse, daily use: Code(s): F10.10 - Alcohol abuse, uncomplicated Status: Chronic Assessment and Plan: Patient initially on Precedex drip that was discontinued after blood pressure dropped. Does have alprazolam as needed. Will continue IV thiamine and folic acid. (8) Accident due to mechanical fall without injury: Qualifiers: Encounter type: initial encounter Qualified Code(s): W19.XXXA - Unspecified fall, initial encounter Code(s): W19.XXXA - Unspecified fall, initial encounter Status: Acute Assessment and Plan: Did have fall which precipitated reason for presentation to ER. CT brain negative. CT cervical spine with mild cervical spondylosis but no acute findings. Lumbar x-ray with no acute osseous abnormality. (9) Anorexia: Code(s): R63.0 - Anorexia Status: Acute Assessment and Plan: Probably due to COPD and/or alcoholism. Now on tube feedings as she is intubated. (10) DVT prophylaxis: Code(s): Z29.9 - Encounter for prophylactic measures, unspecified Status: Acute Assessment and Plan: Lovenox. (11) Anemia: Code(s): D64.9 - Anemia, unspecified Status: Acute Assessment and Plan: Has been chronic but hemoglobin dropped to 8.2 and again 8.3 today. Borderline low B12 and borderline iron iron deficiency indices with iron and TIBC. Continue to follow GI prophylaxis Subjective Date/time seen: 03/11/20 17:51 Interval history: Date of Service: 03/11/2020. Admitted with acute on chronic respiratory failure, COPD exacerbation, encephalopathy 03/08 and shortlky thereafter. Required transfer to ICU with intubation. Sedated on ventilator. no
[2020-03-11 18:25] LABS: Glucose Point of Care 191 (65-105)
[2020-03-12] VITALS (33 sets, daily range): BP systolic 91–133; BP diastolic 53–96; PULSE 45–142; RESP 9–20; TEMP 36–37.2; O2SAT 91–100
[2020-03-12] MEDS: ALPRAZOLAM 0.5 MG TABLET PO ×4 (00:04→23:15)
[2020-03-12 00:36] LABS: Glucose Point of Care 143 (65-105)
[2020-03-12] MEDS: ALBUTEROL SULFATE NEB 2.5 MG/0.5 ML INH INHALATION ×4 (02:12→20:30)
[2020-03-12] MEDS: IPRATROPIUM BR 0.02% INH SOLN 0.5 MG/2.5 ML VIAL INHALATION ×4 (02:12→20:30)
[2020-03-12] MEDS: methylPREDNISolone SOD SUCC 40 MG VIAL IV PUSH ×4 (03:08→21:39)
[2020-03-12 04:34] LABS: Alveolar/Arterial O2 Gradient 68.7 mmHg; Base Excess ABG 10.7 mEq/l (+/-2.0); Carboxyhemoglobin 0.3 % THb (0-2.0); Fractional Inspired Oxygen 30 %; HCO3 ABG 36.3 mEq/l (22.0-26.0); Methemoglobin ABG 0.3 %THb (0-1.5); Oxygen Content ABG 13.8 %vol (16.0-22.0); Oxygen Saturation ABG 96.2 % (95.0-100.0); Oxyhemoglobin 94.8 % THb (90.0-100.0); PCO2 ABG 54.1 mmHg (35.0-45.0); PO2 ABG 81.6 mmHg (80.0-100.0); PO2 FiO2 Ratio Arterial Blood 2.72 %; Reduced Hemoglobin 4.6 %THb (0-5.0); Total Hemoglobin 10.3 g/dL (12.0-18.0); pH ABG 7.445 (7.350-7.450)
[2020-03-12 04:35] LABS: Arterial Blood Gas Vent Mode CMV; Arterial Blood Gas Ventilator rate 18 /MIN; Device VENTILATOR; Modified Allen's Test Pass; Site Drawn LEFT RADIAL
[2020-03-12 04:36] LABS: Arterial Blood Gas PEEP 5 cmH2O; Arterial Blood Gas Tidal Volume 350 ml
[2020-03-12 05:38] LABS: Hematocrit 29.1 % (37.0-47.0); Hemoglobin 8.9 g/dL (12.0-15.0); Mean Corpuscular HGB Conc 30.6 g/dl (32-36); Mean Corpuscular Hemoglobin 30.1 pg (26-34); Mean Corpuscular Volume 98.3 fl (80-100); Mean Platelet Volume 9.1 fl (7.4-10.4); Platelet Count Result 207 k/mm3 (150-375); Red Blood Count 2.96 M/mm3 (4.2-5.4); Red Cell Distribution Width 12.4 % (11.5-14.5); White Blood Count 4.4 K/mm3 (4.5-10.0)
[2020-03-12 06:04] LABS: Blood Urea Nitrogen 12 mg/dL (7-17); CRP 1.9 mg/dL (<1.0); Calcium 8.2 mg/dL (8.4-10.2); Carbon Dioxide > 40 mmol/L (22-30); Chloride 93 mmol/L (98-107); Estimated CRCL calculation 109 ml/min; Estimated Glomerular Filt Rate > 60; Glucose 157 mg/dL (65-105); Phosphorus 3.4 mg/dL (2.5-4.5); Potassium 3.5 mmol/L (3.4-5.0); Sodium 133 mmol/L (137-145)
--- NOTE | 2020-03-12 07:30 | WPDINTPN ---
Progress Note: A&P Assessment and Plan (1) Acute and chronic respiratory failure: Qualifiers: Respiratory failure complication: hypercapnia Qualified Code(s): J96.22 - Acute and chronic respiratory failure with hypercapnia Code(s): J96.20 - Acute and chronic respiratory failure, unspecified whether with hypoxia or hypercapnia Status: Acute Assessment and Plan: patient with acute on chronic hypercapnic respiratory failure likely related to COPD exacerbation. patient appears to have severe COPD at baseline - ABG and chest x-ray reviewed - decrease tidal volume to 320, FiO2 increased to 35% - patient has history of severe emphysema, left upper lobectomy in 2013 due to spontaneous pneumothorax. - cultures have been negative - Continue Zosyn but discontinue vancomycin - continue Solu-Medrol - continue bronchodilators, - sedated with fentanyl and Versed infusion, maintained RASS of 0 to -2 - will perform sedation holiday today and if patient tolerates coming off sedation will try a pressure support trial - advance ET tube by 2 cm (2) COPD exacerbation: Code(s): J44.1 - Chronic obstructive pulmonary disease with (acute) exacerbation Status: Acute Assessment and Plan: patient with history of COPD on 3-4 L of oxygen at home, follows with Dr. Suggs - pulmonology consulted - continue bronchodilators and antibiotics - continue Solu-Medrol, currently on 40 mg IV q6h (3) Alcohol abuse, daily use: Code(s): F10.10 - Alcohol abuse, uncomplicated Status: Chronic Assessment and Plan: patient with alcohol abuse - continue thiamine, folic acid - monitor for alcohol withdrawal (4) ST elevation on ECG: Code(s): R94.31 - Abnormal electrocardiogram [ECG] [EKG] Status: Acute Assessment and Plan: ST-elevation on EKG, troponin x3 were negative - appreciate Cardiology evaluation recommendation, continue current management ECHO Summary 1. Left ventricular systolic function is normal, estimated at 60-65%. 2. Right ventricular chamber dimension is normal. 3. No valvular abnormalities. 4. Pericardium has a thickened nodular appearance. (5) Tobacco abuse: Code(s): Z72.0 - Tobacco use Status: Chronic Assessment and Plan: patient continues to smoke half a packet a day - will corrections counselor on cessation of smoking when she is extubated (6) Accident due to mechanical fall without injury: Qualifiers: Encounter type: initial encounter Qualified Code(s): W19.XXXA - Unspecified fall, initial encounter Code(s): W19.XXXA - Unspecified fall, initial encounter Status: Acute Assessment and Plan: patient had a mechanical fall, CT scan of the head did not show any acute injuries, cervical, lumbar spine showed mild spondylolysis - continue with pain control (7) Suspected 2019 novel coronavirus infection: Code(s): Z20.828 - Contact with and (suspected) exposure to other viral communicable diseases Status: Ruled-out Assessment and Plan: patient with acute respiratory failure, ST changes on EKG - SARS-CoV-2 PCR is negative - patient taken off airborne, droplet, contact isolation (8) Shock: Code(s): R57.9 - Shock, unspecified Status: Acute Assessment and Plan: patient developed hypotension, likely shock positive pressure ventilation, infection - patient was on Levophed, but currently off - continue Zosyn - blood and urine cultures have been obtained and negative at this time (9) Atrial fibrillation: Qualifiers: Atrial fibrillation type: unspecified Qualified Code(s): I48.91 - Unspecified atrial fibrillation Code(s): I48.91 - Unspecified atrial fibrillation Status: Acute Assessment and Plan: patient does not have a history of atrial fibrillation, this seems to be new onset atrial fibrillation, likely related to CO
[2020-03-12] MEDS: THIAMINE HCL 200 MG/2 ML VIAL 100 MG IV PUSH (07:32)
[2020-03-12] MEDS: ESCITALOPRAM OXALATE 10 MG TABLET PO (07:32)
[2020-03-12] MEDS: PANTOPRAZOLE SODIUM IV 40 MG VIAL IV PUSH ×2 (07:32→20:23)
[2020-03-12] MEDS: ENOXAPARIN 40 MG/0.4 ML SYRINGE SUB-Q (07:32)
[2020-03-12] MEDS: FOLIC ACID 1 MG/0.2 ML INJ IV PUSH (07:36)
[2020-03-12] MEDS: SODIUM CHLORIDE 0.9% IV 1,000 ML 50 ML IV CONT (07:37)
[2020-03-12] MEDS: ASPIRIN 325 MG TABLET PO (09:37)
[2020-03-12 12:06] LABS: Glucose Point of Care 119 (65-105)
[2020-03-12] MEDS: PROPOFOL IV EMULSION 100 ML 2.5 MG IV CONT (13:30)
--- NOTE | 2020-03-12 13:40 | PM.PNPUL ---
Progress Note: A&P Assessment and Plan (1) COPD exacerbation: Code(s): J44.1 - Chronic obstructive pulmonary disease with (acute) exacerbation Status: Acute Assessment and Plan: severe advanced COPD - respiratory failure - weaning per treatment plant mechanic - will likely need NIPPV post extubation - will continue to follow Subjective Date/time seen: 03/12/20 13:40 Interval history: Bryanna, cachetic female with COPD. CXR shows hyperinflation, no pneumonia but likely some scattered underlying focal fibrosis. She was very anxious and scared when aroused during examination today. Review of Systems Review of Systems: All systems reviewed & are unremarkable except as noted in HPI and below Exam Const: General: comfortable and no acute distress HENMT: Mouth: Yes moist mucous membranes Neck: Neck: supple and no JVD Resp: Auscultation: no crackles, no rales, no rhonchi and diminished lung sounds Cardio: Rate: regular rate Rhythm: regular rhythm Heart sounds: no murmurs GI: Auscultation: normal bowel sounds Extrem: General: normal to inspection and no edema Psych: Affect: Anxious affect present Objective Data Vital Signs Vital Signs: Vital Signs - 24 hr 03/11/20 13:50 03/11/20 13:51 03/11/20 13:58 Temperature Pulse Rate 53 L 53 L 55 L Respiratory Rate 18 18 Blood Pressure Pulse Oximetry 100 03/11/20 14:00 03/11/20 16:00 03/11/20 16:55 Temperature 37.3 C 37.4 C Pulse Rate 61 56 L 54 L Respiratory Rate 18 19 Blood Pressure 110/60 94/55 L Pulse Oximetry 100 100 100 03/11/20 18:00 03/11/20 18:01 03/11/20 20:00 Temperature 37.2 C 37.4 C Pulse Rate 55 L 55 L 57 L Respiratory Rate 18 18 Blood Pressure 124/70 95/73 L Pulse Oximetry 100 100 03/11/20 20:57 03/11/20 21:07 03/11/20 21:30 Temperature Pulse Rate 57 L 58 L Respiratory Rate 18 18 Blood Pressure Pulse Oximetry 100 100 03/11/20 22:00 03/11/20 23:27 03/12/20 00:00 Temperature 37.1 C 37.1 C Pulse Rate 61 56 L 56 L Respiratory Rate 17 18 Blood Pressure 103/79 133/73 Pulse Oximetry 97 100 99 03/12/20 02:00 03/12/20 02:13 03/12/20 02:14 Temperature 37.2 C Pulse Rate 58 L 59 L 59 L Respiratory Rate 16 18 Blood Pressure 117/58 L Pulse Oximetry 96 95 03/12/20 02:23 03/12/20 04:00 03/12/20 04:25 Temperature 36.9 C Pulse Rate 59 L 60 61 Respiratory Rate 18 16 Blood Pressure 115/60 Pulse Oximetry 100 100 03/12/20 06:00 03/12/20 07:52 03/12/20 07:54 Temperature 37.1 C 36.9 C Pulse Rate 62 79 74 Respiratory Rate 18 20 18 Blood Pressure 91/67 L 101/66 Pulse Oximetry 97 96 95 03/12/20 08:00 03/12/20 08:59 03/12/20 09:00 Temperature Pulse Rate 66 80 94 Respiratory Rate 20 Blood Pressure Pulse Oximetry 93 03/12/20 09:54 03/12/20 10:00 03/12/20 11:05 Temperature 36.9 C Pulse Rate 58 L 60 142 H Respiratory Rate 18 Blood Pressure 92/53 L Pulse Oximetry 95 91 03/12/20 11:55 03/12/20 12:00 Temperature 37.2 C Pulse Rate 66 64 Respiratory Rate 17 12 Blood Pressure 105/56 L Pulse Oximetry 97 98 Intake/Output Intake/Output: Intake & Output 03/09/20 03/10/20 03/11/20 03/12/20 23:59 23:59 23:59 23:59 Intake Total 4410.6 2494 3717 1665 Output Total 652 832 7700 1250 Balance 3510.6 1769 2067 415 Meds/Results Medications: Active Medications Generic Name Dose Route Start Last Admin Trade Name Freq PRN Reason Stop Dose Admin Albuterol 2.5 mg 03/10/20 08:00 03/12/20 08:58 Albuterol Sulf Neb 2.5mg/0.5ml INHALATION 2.5 mg Q6HRT DAILY Administration Alprazolam 0.5 mg 03/10/20 16:00 03/12/20 07:36 Xanax PO 0.5 mg Q8H DAILY Administration Aspirin 325 mg 03/12/20 08:00 03/12/20 09:37 Aspirin PO 325 mg DAILY@0800 DAILY Administration Enoxaparin Sodium 40 mg 03/11/20 09:00 03/12/20 07:32 Lovenox SUB-Q 40 mg DAILY DAILY Administration Escitalopram Oxalate 10 mg 03/09/20 10:45 03/12/20
--- NOTE | 2020-03-12 17:35 | PM.IMPN ---
Progress Note: A&P Assessment and Plan (1) Acute on chronic respiratory failure with hypoxia and hypercapnia: Code(s): J96.21 - Acute and chronic respiratory failure with hypoxia; J96.22 - Acute and chronic respiratory failure with hypercapnia Status: Acute Assessment and Plan: Patient started on BiPAP machine from the emergency room but with significantly elevated pCO2 and decreased mentation, patient transferred to ICU and intubated on 03/08/2020. . Remains sedated on ventilator. Management of ventilator per wellness spa manager. On IV Zosyn D#5 and vanc d/wan today. . Blood and urine cultures so far negative Continue IV steroids and albuterol HFA. (2) COPD exacerbation: Code(s): J44.1 - Chronic obstructive pulmonary disease with (acute) exacerbation Status: Acute Assessment and Plan: Now on ventilator as noted above. Continue IV steroids. Also has albuterol HFA. Spiriva on hold. wean as possible per pulm and wellness spa manager (3) Shock: Code(s): R57.9 - Shock, unspecified Status: Acute Assessment and Plan: Secondarily also developed shock. Off Levophed now. . Cultures negative.. Remains on IV Zosyn as noted above. Will continue to monitor. (4) Encephalopathy: Code(s): G93.40 - Encephalopathy, unspecified Status: Acute Assessment and Plan: No acute intracranial abnormality. Most likely due to the hypercapnia and hypoxia. Currently sedated.but decreaseing Will need to assess mental status once no longer sedated. (5) ST elevation on ECG: Code(s): R94.31 - Abnormal electrocardiogram [ECG] [EKG] Status: Acute Assessment and Plan: Patient with noted diffuse ST changes. Cardiology was consulted yesterday with patient not felt to have STEMI. Appreciate input from Cardiology today. Serial troponin levels all negative. No plan for ischemia workup at this time. COVID-19 testing negative. Echocardiogram EF 65% with no wall motion abnormalities. (6) Suspected 2019 novel coronavirus infection: Code(s): Z20.828 - Contact with and (suspected) exposure to other viral communicable diseases Status: Ruled-out Assessment and Plan: COVID-19 testing initiated on admission. Testing negative 03/09. Isolation discontinued. (7) Alcohol abuse, daily use: Code(s): F10.10 - Alcohol abuse, uncomplicated Status: Chronic Assessment and Plan: Patient initially on Precedex drip that was discontinued after blood pressure dropped. Does have alprazolam as needed. Will continue IV thiamine and folic acid. (8) Accident due to mechanical fall without injury: Qualifiers: Encounter type: initial encounter Qualified Code(s): W19.XXXA - Unspecified fall, initial encounter Code(s): W19.XXXA - Unspecified fall, initial encounter Status: Acute Assessment and Plan: Did have fall which precipitated reason for presentation to ER. CT brain negative. CT cervical spine with mild cervical spondylosis but no acute findings. Lumbar x-ray with no acute osseous abnormality. (9) Anorexia: Code(s): R63.0 - Anorexia Status: Acute Assessment and Plan: Probably due to COPD and/or alcoholism. Now on tube feedings as she is intubated. (10) DVT prophylaxis: Code(s): Z29.9 - Encounter for prophylactic measures, unspecified Status: Acute Assessment and Plan: Lovenox. (11) Anemia: Code(s): D64.9 - Anemia, unspecified Status: Acute Assessment and Plan: Has been chronic but hemoglobin dropped to 8.2 but 8.9 today. Borderline low B12 and borderline iron iron deficiency by iron and TIBC. Continue to follow GI prophylaxis, not a candidate for any extensive GI eval Subjective Date/time seen: 03/12/20 17:35 Interval history: Date of Service: 03/12/2020. Admitted with acute on chronic respiratory failure, COPD exacerbation, encephalopathy 03/08 and shortlky thereaft
[2020-03-12 17:38] LABS: Glucose Point of Care 152 (65-105)
[2020-03-13] VITALS (27 sets, daily range): BP systolic 103–125; BP diastolic 61–86; PULSE 46–152; RESP 16–23; TEMP 36.4–37.6; O2SAT 90–100
[2020-03-13 00:44] LABS: Glucose Point of Care 132 (65-105)
[2020-03-13] MEDS: PROPOFOL IV EMULSION 100 ML 6.3 MG IV CONT (02:07)
[2020-03-13] MEDS: IPRATROPIUM BR 0.02% INH SOLN 0.5 MG/2.5 ML VIAL INHALATION ×3 (02:30→14:03)
[2020-03-13] MEDS: ALBUTEROL SULFATE NEB 2.5 MG/0.5 ML INH INHALATION ×3 (02:30→14:03)
[2020-03-13] MEDS: methylPREDNISolone SOD SUCC 40 MG VIAL IV PUSH ×3 (04:06→20:25)
[2020-03-13 04:22] LABS: Hematocrit 32.1 % (37.0-47.0); Hemoglobin 9.8 g/dL (12.0-15.0); Mean Corpuscular HGB Conc 30.5 g/dl (32-36); Mean Corpuscular Volume 98.2 fl (80-100); Platelet Count Result 224 k/mm3 (150-375); Red Blood Count 3.27 M/mm3 (4.2-5.4); Red Cell Distribution Width 12.6 % (11.5-14.5); White Blood Count 4.1 K/mm3 (4.5-10.0)
[2020-03-13 04:29] LABS: Alveolar/Arterial O2 Gradient 91.6 mmHg; Base Excess ABG 10.3 mEq/l (+/-2.0); Carboxyhemoglobin 0.3 % THb (0-2.0); Fractional Inspired Oxygen 35 %; HCO3 ABG 37.2 mEq/l (22.0-26.0); Methemoglobin ABG 0.3 %THb (0-1.5); Oxyhemoglobin 94.6 % THb (90.0-100.0); PO2 ABG 84.9 mmHg (80.0-100.0); PO2 FiO2 Ratio Arterial Blood 2.43 %; Reduced Hemoglobin 4.8 %THb (0-5.0); Total Hemoglobin 11.2 g/dL (12.0-18.0); pH ABG 7.391 (7.350-7.450)
[2020-03-13 04:31] LABS: Device VENTILATOR; PCO2 ABG 62.8 mmHg (35.0-45.0); Site Drawn RIGHT BRACHIAL
[2020-03-13 04:32] LABS: Arterial Blood Gas PEEP 5 cmH2O; Arterial Blood Gas Tidal Volume 320 ml; Arterial Blood Gas Vent Mode CMV; Arterial Blood Gas Ventilator rate 18 /MIN
[2020-03-13 04:41] LABS: Blood Urea Nitrogen 14 mg/dL (7-17); Calcium 7.9 mg/dL (8.4-10.2); Carbon Dioxide > 40 mmol/L (22-30); Chloride 92 mmol/L (98-107); Estimated CRCL calculation 85 ml/min; Estimated Glomerular Filt Rate > 60; Glucose 139 mg/dL (65-105); Phosphorus 3.9 mg/dL (2.5-4.5); Potassium 3.4 mmol/L (3.4-5.0); Sodium 134 mmol/L (137-145)
[2020-03-13] MEDS: SODIUM CHLORIDE 0.9% IV 1,000 ML 50 ML IV CONT (04:55)
--- NOTE | 2020-03-13 07:00 | WPDINTPN ---
Progress Note: A&P Assessment and Plan (1) Acute and chronic respiratory failure: Qualifiers: Respiratory failure complication: hypercapnia Qualified Code(s): J96.22 - Acute and chronic respiratory failure with hypercapnia Code(s): J96.20 - Acute and chronic respiratory failure, unspecified whether with hypoxia or hypercapnia Status: Acute Assessment and Plan: patient with acute on chronic hypercapnic respiratory failure likely related to COPD exacerbation. patient appears to have severe COPD at baseline - ABG and chest x-ray reviewed - I have tried several different modes to optimize patient mechanical ventilation. ASV or spontaneous patient's respiratory rate is is very low triggering low minute ventilation. once patient is off sedation she is agitated tachypneic with high RSBI - patient is not ready for weaning trial this point - continue CMV with peep of 5 tidal volume to 320, FiO2 increased to 35% - patient has history of severe emphysema, left upper lobectomy in 2012 due to spontaneous pneumothorax. - cultures have been negative - Continue Zosyn. vancomycin has been discontinued - continue Solu-Medrol but change to twice a - continue bronchodilators, - sedated with fentanyl, Precedex and propofol , maintained RASS of 0 to -2 - advance ET tube by 2 cm (2) COPD exacerbation: Code(s): J44.1 - Chronic obstructive pulmonary disease with (acute) exacerbation Status: Acute Assessment and Plan: patient with history of COPD on 3-4 L of oxygen at home, follows with Dr. Suggs - pulmonology following - continue bronchodilators and antibiotics - continue Solu-Medrol (3) Alcohol abuse, daily use: Code(s): F10.10 - Alcohol abuse, uncomplicated Status: Chronic Assessment and Plan: patient with alcohol abuse currently sedated - continue thiamine, folic acid - monitor for alcohol withdrawal (4) ST elevation on ECG: Code(s): R94.31 - Abnormal electrocardiogram [ECG] [EKG] Status: Acute Assessment and Plan: ST-elevation on EKG, troponin x3 were negative - appreciate Cardiology evaluation recommendation, continue current management ECHO Summary 1. Left ventricular systolic function is normal, estimated at 60-65%. 2. Right ventricular chamber dimension is normal. 3. No valvular abnormalities. 4. Pericardium has a thickened nodular appearance. (5) Tobacco abuse: Code(s): Z72.0 - Tobacco use Status: Chronic Assessment and Plan: patient continues to smoke half a packet a day - will camp head counselor on cessation of smoking when she is extubated (6) Accident due to mechanical fall without injury: Qualifiers: Encounter type: initial encounter Qualified Code(s): W19.XXXA - Unspecified fall, initial encounter Code(s): W19.XXXA - Unspecified fall, initial encounter Status: Acute Assessment and Plan: patient had a mechanical fall, CT scan of the head did not show any acute injuries, cervical, lumbar spine showed mild spondylolysis - continue with pain control (7) Suspected 2019 novel coronavirus infection: Code(s): Z20.828 - Contact with and (suspected) exposure to other viral communicable diseases Status: Ruled-out Assessment and Plan: patient with acute respiratory failure, ST changes on EKG - SARS-CoV-2 PCR is negative - patient taken off airborne, droplet, contact isolation (8) Shock: Code(s): R57.9 - Shock, unspecified Status: Acute Assessment and Plan: patient developed hypotension, likely shock positive pressure ventilation, infection - patient was on Levophed, but currently off - continue Zosyn - blood and urine cultures have been obtained and negative at this time (9) Atrial fibrillation: Qualifiers: Atrial fibrillation type: unspecified Qualified Code(s): I48.91 - Unspecified atrial fibrill
[2020-03-13] MEDS: ASPIRIN 325 MG TABLET PO (08:03)
[2020-03-13] MEDS: ALPRAZOLAM 0.5 MG TABLET PO ×2 (08:04→15:24)
[2020-03-13] MEDS: ENOXAPARIN 40 MG/0.4 ML SYRINGE SUB-Q (08:04)
[2020-03-13] MEDS: ESCITALOPRAM OXALATE 10 MG TABLET PO (08:04)
[2020-03-13] MEDS: FOLIC ACID 1 MG/0.2 ML INJ IV PUSH (08:05)
[2020-03-13] MEDS: PANTOPRAZOLE SODIUM IV 40 MG VIAL IV PUSH (08:06)
[2020-03-13] MEDS: THIAMINE HCL 200 MG/2 ML VIAL 100 MG IV PUSH (08:07)
--- NOTE | 2020-03-13 08:25 | PM.IMPN ---
Progress Note: A&P Assessment and Plan (1) Acute on chronic respiratory failure with hypoxia and hypercapnia: Code(s): J96.21 - Acute and chronic respiratory failure with hypoxia; J96.22 - Acute and chronic respiratory failure with hypercapnia Status: Acute Assessment and Plan: Patient started on BiPAP machine from the ER but with significantly elevated pCO2 and decreased mentation but ultimately required intubation on 03/08/2020. Remains intubated and sedated on mechanical ventilation. Management of ventilator per warranty coordinator. On IV Zosyn D#6 and vancomycin stopped on 03/12/20 after 4 days. Blood Cx NGTD. UCx negative. Continue IV steroids, IV abx and albuterol HFA. (2) COPD exacerbation: Code(s): J44.1 - Chronic obstructive pulmonary disease with (acute) exacerbation Status: Acute Assessment and Plan: Now on ventilator as noted above. Continue IV steroids. Also has albuterol HFA. Spiriva on hold. As above. (3) Shock: Code(s): R57.9 - Shock, unspecified Status: Acute Assessment and Plan: Patient developed shock. Required Dopamine then Levophed. Off Levophed since 03/10/20. Cultures negative. Remains on IV Zosyn as noted above. BP remains well controlled. Will continue to monitor. (4) Encephalopathy: Code(s): G93.40 - Encephalopathy, unspecified Status: Acute Assessment and Plan: Head CT and cervical and lumbar spine CT normal earlier on the day of admission. Mental status changes felt related to hypercapnia and hypoxia. Currently sedated and thus difficult to assess but does become agitated with weaning of sedation. (5) ST elevation on ECG: Code(s): R94.31 - Abnormal electrocardiogram [ECG] [EKG] Status: Acute Assessment and Plan: Patient with noted diffuse ST changes. Trop negative x 3. Echocardiogram EF 65% with no wall motion abnormalities. Cardiology was consulted but not felt patient had STEMI. Appreciate input from Cardiology today. No plan for ischemia workup at this time. (6) Alcohol abuse, daily use: Code(s): F10.10 - Alcohol abuse, uncomplicated Status: Chronic Assessment and Plan: Patient initially on Precedex drip that was discontinued after blood pressure dropped. Precedex has since be resumed. Does have alprazolam as needed. Continue IV thiamine and folic acid. (7) Accident due to mechanical fall without injury: Qualifiers: Encounter type: initial encounter Qualified Code(s): W19.XXXA - Unspecified fall, initial encounter Code(s): W19.XXXA - Unspecified fall, initial encounter Status: Acute Assessment and Plan: Patient did have a fall and was seen earlier on the day of admission here in ER. CT brain negative. CT cervical spine with mild cervical spondylosis but no acute findings. Lumbar x-ray with no acute osseous abnormality. Workup was negative for any acute abnormalities and was discharged home. Start PT/OT once able. (8) Anorexia: Code(s): R63.0 - Anorexia Status: Acute Assessment and Plan: Probably due to COPD and/or alcoholism. Now on tube feedings as she is intubated. (9) Anemia: Code(s): D64.9 - Anemia, unspecified Status: Acute Assessment and Plan: Hgb 12 on admission but appears to be more of an outlier. Hgb more runs in the 9-10 range. Hemoglobin dropped to 8.2 on 03/10/20 but improved to 9.8 today. Borderline low B12 and borderline iron iron deficiency by iron and TIBC. No evidence of acute blood loss. Continue to follow GI prophylaxis, not a candidate for any extensive GI eval. Check ferritin. (10) Suspected 2019 novel coronavirus infection: Code(s): Z20.828 - Contact with and (suspected) exposure to other viral communicable diseases Status: Ruled-out Assessment and Plan: COVID-19 testing negative 03/09. Isolation discontinued. (11)
[2020-03-13] MEDS: PROPOFOL IV EMULSION 100 ML 10 MG IV CONT (10:09)
--- NOTE | 2020-03-13 10:13 | PCDIET ---
Nutrition Follow-Up Complete: Nutrition Diagnosis: Inadequate oral intake related to oral intubation as evidenced by NPO status. Nutrition Goal: Patient to meet estimated nutritional needs. Goal met. Tube feeding goal + Propofol at 8.8mL/hr providing 1156kcal and 58g protein daily. Patient with fair tolerance, as residuals noted up to 350mL. Last recorded weight is 42.3 kg which is up from last review. +I/O. Bowel Motility: No BM documented. Colace initiated, and Dulcolax given today. Labs Reviewed: Glu (139), Cr (0.4), Na (134) Meds Noted: Albuterol, Atrovent, Propofol, Precedex, Solu Medrol, NS at 50ml/hr, Thiamine, Fentanyl, Levophed, Protonix, Folic Acid, Zosyn, Colace Additional Notes: Buttocks macerated. No documented pressure ulcers. Will continue to monitor with same goal. If residuals remain >300mL, may also consider use of prokinetic agent. Nutrition Monitoring and Evaluation: Follow up every Thursday/Thursday.
[2020-03-13] MEDS: DOCUSATE SODIUM LIQ 100 MG/10 ML UDC PO ×2 (10:14→20:25)
[2020-03-13 11:38] LABS: Glucose Point of Care 148 (65-105)
--- NOTE | 2020-03-13 12:56 | PM.PNPUL ---
Progress Note: A&P Assessment and Plan (1) COPD exacerbation: Code(s): J44.1 - Chronic obstructive pulmonary disease with (acute) exacerbation Status: Acute Assessment and Plan: severe advanced COPD - respiratory failure - weaning per supply chain manager - will likely need NIPPV post extubation - will continue to follow Subjective Date/time seen: 03/13/20 12:56 Interval history: She seems more sedated today. No acute distress, resting comfortably on the vent. She's recieving continous propfol, fetnantyl drip and dexamatomidine drip as well as scheduled Xanax. Review of Systems Review of Systems: All systems reviewed & are unremarkable except as noted in HPI and below Exam Const: General: comfortable and no acute distress HENMT: Mouth: Yes moist mucous membranes Neck: Neck: supple and no JVD Resp: Auscultation: no crackles, no rales, no rhonchi and diminished lung sounds Cardio: Rate: regular rate Rhythm: regular rhythm Heart sounds: no murmurs GI: Auscultation: normal bowel sounds Neuro: Other: sedated Extrem: General: normal to inspection and no edema Objective Data Vital Signs Vital Signs: Vital Signs - 24 hr 03/12/20 13:54 03/12/20 14:00 03/12/20 14:47 Temperature 37.2 C Pulse Rate 57 L 59 L 54 L Respiratory Rate 9 L 18 Blood Pressure 122/96 H Pulse Oximetry 99 03/12/20 14:50 03/12/20 15:15 03/12/20 15:40 Temperature Pulse Rate 54 L 56 L 55 L Respiratory Rate 18 18 Blood Pressure Pulse Oximetry 100 100 03/12/20 16:00 03/12/20 17:40 03/12/20 17:44 Temperature 36.6 C 36.3 C L Pulse Rate 54 L 51 L 52 L Respiratory Rate 18 18 Blood Pressure 133/73 130/83 Pulse Oximetry 100 100 03/12/20 18:27 03/12/20 20:00 03/12/20 20:30 Temperature 36.0 C L Pulse Rate 51 L 45 L 48 L Respiratory Rate 18 18 Blood Pressure 119/78 Pulse Oximetry 100 100 100 03/12/20 20:45 03/12/20 22:00 03/12/20 23:38 Temperature 36.2 C L Pulse Rate 52 L 79 53 L Respiratory Rate 18 18 Blood Pressure 98/54 L Pulse Oximetry 96 100 03/13/20 00:00 03/13/20 02:00 03/13/20 02:30 Temperature 36.6 C 36.6 C Pulse Rate 51 L 46 L 46 L Respiratory Rate 18 18 18 Blood Pressure 125/81 120/74 Pulse Oximetry 100 98 99 03/13/20 02:38 03/13/20 04:00 03/13/20 04:35 Temperature 36.6 C Pulse Rate 47 L 50 L 49 L Respiratory Rate 18 18 Blood Pressure 120/73 Pulse Oximetry 98 100 03/13/20 06:00 03/13/20 08:00 03/13/20 09:13 Temperature 36.6 C 37.0 C Pulse Rate 51 L 54 L 54 L Respiratory Rate 20 18 18 Blood Pressure 121/76 120/72 Pulse Oximetry 100 100 03/13/20 09:15 03/13/20 10:00 03/13/20 11:40 Temperature 36.7 C Pulse Rate 54 L 50 L 48 L Respiratory Rate 18 18 Blood Pressure 115/69 Pulse Oximetry 100 100 100 03/13/20 12:00 Temperature 36.4 C L Pulse Rate 47 L Respiratory Rate 18 Blood Pressure 103/61 Pulse Oximetry 100 Intake/Output Intake/Output: Intake & Output 03/10/20 03/11/20 03/12/20 03/13/20 23:59 23:59 23:59 23:59 Intake Total 2494 3717 2390 1872 Output Total 725 1650 2150 1150 Balance 1769 2067 240 722 Meds/Results Medications: Active Medications Generic Name Dose Route Start Last Admin Trade Name Rafaelq PRN Reason Stop Dose Admin Albuterol 2.5 mg 03/10/20 08:00 03/13/20 09:12 Albuterol Sulf Neb 2.5mg/0.5ml INHALATION 2.5 mg Q6HRT DAILY Administration Alprazolam 0.5 mg 03/10/20 16:00 03/13/20 08:04 Xanax PO 0.5 mg Q8H DAILY Administration Aspirin 325 mg 03/12/20 08:00 03/13/20 08:03 Aspirin PO 325 mg DAILY@0800 DAILY Administration Docusate Sodium 100 mg 03/13/20 09:10 05/26/20 10:14 Colace Liquid PO 100 mg Q12HR DAILY Administration Enoxaparin Sodium 40 mg 03/11/20 09:00 03/13/20 08:04 Lovenox SUB-Q 40 mg DAILY DAILY Administration Escitalopram Oxalate 10 mg 03/09/20 10:45 03/13/20 08:04 Lexapro PO 10 mg QAM DAILY Administration Foli
[2020-03-13] MEDS: BISACODYL 10 MG SUPPOSITORY RECTAL (15:25)
[2020-03-13] MEDS: PROPOFOL IV EMULSION 100 ML 11.3 MG IV CONT (16:30)
[2020-03-13 17:15] LABS: Glucose Point of Care 141 (65-105)
[2020-03-13] MEDS: LORAZEPAM INJ 2 MG/ML VIAL IV PUSH (20:19)
[2020-03-14] VITALS (28 sets, daily range): BP systolic 86–126; BP diastolic 49–70; PULSE 53–99; RESP 15–24; TEMP 36.7–37.6; O2SAT 92–100
[2020-03-14] MEDS: ALPRAZOLAM 0.5 MG TABLET PO ×2 (00:04→09:05)
[2020-03-14 00:30] LABS: Glucose Point of Care 206 (65-105)
[2020-03-14] MEDS: IPRATROPIUM BR 0.02% INH SOLN 0.5 MG/2.5 ML VIAL INHALATION ×5 (01:51→20:05)
[2020-03-14] MEDS: ALBUTEROL SULFATE NEB 2.5 MG/0.5 ML INH INHALATION ×5 (01:52→20:05)
[2020-03-14] MEDS: PROPOFOL IV EMULSION 100 ML 11.3 MG IV CONT ×3 (02:07→14:44)
[2020-03-14] MEDS: LORAZEPAM INJ 2 MG/ML VIAL IV PUSH ×5 (04:01→22:17)
[2020-03-14 04:26] LABS: Alveolar/Arterial O2 Gradient 96.7 mmHg; Base Excess ABG 11.4 mEq/l (+/-2.0); Carboxyhemoglobin 0.3 % THb (0-2.0); Fractional Inspired Oxygen 35 %; HCO3 ABG 37.3 mEq/l (22.0-26.0); Methemoglobin ABG 0.3 %THb (0-1.5); Oxygen Content ABG 15.2 %vol (16.0-22.0); Oxygen Saturation ABG 96.8 % (95.0-100.0); Oxyhemoglobin 95.7 % THb (90.0-100.0); PCO2 ABG 55.6 mmHg (35.0-45.0); PO2 ABG 88.2 mmHg (80.0-100.0); PO2 FiO2 Ratio Arterial Blood 2.52 %; Reduced Hemoglobin 3.7 %THb (0-5.0); Total Hemoglobin 11.2 g/dL (12.0-18.0); pH ABG 7.444 (7.350-7.450)
[2020-03-14 04:27] LABS: Device VENTILATOR; Modified Allen's Test Pass; Site Drawn RIGHT RADIAL
[2020-03-14 04:28] LABS: Arterial Blood Gas PEEP 5 cmH2O; Arterial Blood Gas Pressure Support 0 cmH2O; Arterial Blood Gas Tidal Volume 320 ml; Arterial Blood Gas Vent Mode CMV; Arterial Blood Gas Ventilator rate 18 /MIN
[2020-03-14 05:26] LABS: Hematocrit 31.1 % (37.0-47.0); Hemoglobin 9.7 g/dL (12.0-15.0); Mean Corpuscular HGB Conc 31.2 g/dl (32-36); Mean Corpuscular Hemoglobin 30.2 pg (26-34); Mean Corpuscular Volume 96.9 fl (80-100); Mean Platelet Volume 9.3 fl (7.4-10.4); Platelet Count Result 255 k/mm3 (150-375); Red Blood Count 3.21 M/mm3 (4.2-5.4); Red Cell Distribution Width 12.5 % (11.5-14.5)
[2020-03-14 05:48] LABS: Blood Urea Nitrogen 15 mg/dL (7-17); Calcium 7.7 mg/dL (8.4-10.2); Carbon Dioxide > 40 mmol/L (22-30); Chloride 91 mmol/L (98-107); Estimated CRCL calculation 154 ml/min; Estimated Glomerular Filt Rate > 60; Glucose 109 mg/dL (65-105); Magnesium 2.2 mg/dL (1.6-2.3); Phosphorus 3.4 mg/dL (2.5-4.5); Potassium 3.2 mmol/L (3.4-5.0); Sodium 132 mmol/L (137-145)
--- NOTE | 2020-03-14 07:11 | P.CDI_ITS ---
CDI Query Clarification Request Two queries: 1) Shock has been documented Please further specify type/cause of shock: * Septic * Cardiogenic * Hypovolemic * Other * Unable to determine 2) Encephalopathy and Most likely due to the hypercapnia and hypoxia ,has been documented Please further specify type of encephalopathy: * Metabolic * Toxic * Anoxic * Hepatic * Hypertensive * Other * Unable to determine
--- NOTE | 2020-03-14 07:11 | WPDCDIQUERY2 ---
CDI Query Clarification Request Two queries: 1) Shock has been documented Please further specify type/cause of shock: Septic Cardiogenic Hypovolemic Other Unable to determine 2) Encephalopathy and Most likely due to the hypercapnia and hypoxia ,has been documented Please further specify type of encephalopathy: Metabolic Toxic Anoxic Hepatic Hypertensive Other Unable to determine
--- NOTE | 2020-03-14 09:00 | WPDINTPN ---
Progress Note: A&P Assessment and Plan (1) Acute and chronic respiratory failure: Qualifiers: Respiratory failure complication: hypercapnia Qualified Code(s): J96.22 - Acute and chronic respiratory failure with hypercapnia Code(s): J96.20 - Acute and chronic respiratory failure, unspecified whether with hypoxia or hypercapnia Status: Acute Assessment and Plan: patient with acute on chronic hypercapnic respiratory failure likely related to COPD exacerbation. patient appears to have severe COPD at baseline - ABG and chest x-ray reviewed - I have tried several different modes to optimize patient mechanical ventilation. ASV or spontaneous patient's respiratory rate is is very low triggering low minute ventilation. once patient is off sedation she is agitated tachypneic with high RSBI - patient is not ready for weaning trial this point - continue CMV with peep of 5 tidal volume to 320, FiO2 increased to 35% -will perform sedation holiday and re-evaluate - patient has history of severe emphysema, left upper lobectomy in 2012 due to spontaneous pneumothorax. - cultures have been negative - Continue Zosyn. vancomycin has been discontinued - continue Solu-Medrol but change to twice a - continue bronchodilators, - sedated with fentanyl, Precedex and propofol , maintained RASS of 0 to -2 - advance ET tube by 2 cm (2) COPD exacerbation: Code(s): J44.1 - Chronic obstructive pulmonary disease with (acute) exacerbation Status: Acute Assessment and Plan: patient with history of COPD on 3-4 L of oxygen at home, follows with Dr. Suggs - pulmonology following - continue bronchodilators and antibiotics - continue Solu-Medrol (3) Alcohol abuse, daily use: Code(s): F10.10 - Alcohol abuse, uncomplicated Status: Chronic Assessment and Plan: patient with alcohol abuse currently sedated - continue thiamine, folic acid - monitor for alcohol withdrawal (4) ST elevation on ECG: Code(s): R94.31 - Abnormal electrocardiogram [ECG] [EKG] Status: Acute Assessment and Plan: ST-elevation on EKG, troponin x3 were negative - appreciate Cardiology evaluation recommendation, continue current management ECHO Summary 1. Left ventricular systolic function is normal, estimated at 60-65%. 2. Right ventricular chamber dimension is normal. 3. No valvular abnormalities. 4. Pericardium has a thickened nodular appearance. (5) Tobacco abuse: Code(s): Z72.0 - Tobacco use Status: Chronic Assessment and Plan: patient continues to smoke half a packet a day - will counselor [employer] on cessation of smoking when she is extubated (6) Accident due to mechanical fall without injury: Qualifiers: Encounter type: initial encounter Qualified Code(s): W19.XXXA - Unspecified fall, initial encounter Code(s): W19.XXXA - Unspecified fall, initial encounter Status: Acute Assessment and Plan: patient had a mechanical fall, CT scan of the head did not show any acute injuries, cervical, lumbar spine showed mild spondylolysis - continue with pain control (7) Suspected 2019 novel coronavirus infection: Code(s): Z20.828 - Contact with and (suspected) exposure to other viral communicable diseases Status: Ruled-out Assessment and Plan: patient with acute respiratory failure, ST changes on EKG - SARS-CoV-2 PCR is negative - patient taken off airborne, droplet, contact isolation (8) Shock: Code(s): R57.9 - Shock, unspecified Status: Acute Assessment and Plan: patient developed hypotension, likely shock positive pressure ventilation, infection - patient was on Levophed, but currently off - continue Zosyn - blood and urine cultures have been obtained and negative at this time (9) Atrial fibrillation: Qualifiers: Atrial fibrillation type: unspecified Qualif
[2020-03-14] MEDS: FOLIC ACID 1 MG/0.2 ML INJ IV PUSH (09:03)
[2020-03-14] MEDS: ESCITALOPRAM OXALATE 10 MG TABLET PO (09:03)
[2020-03-14] MEDS: DOCUSATE SODIUM LIQ 100 MG/10 ML UDC PO ×2 (09:03→20:52)
[2020-03-14] MEDS: PANTOPRAZOLE SODIUM IV 40 MG VIAL IV PUSH (09:04)
[2020-03-14] MEDS: THIAMINE HCL 200 MG/2 ML VIAL 100 MG IV PUSH (09:04)
[2020-03-14] MEDS: ENOXAPARIN 40 MG/0.4 ML SYRINGE SUB-Q (09:04)
[2020-03-14] MEDS: methylPREDNISolone SOD SUCC 40 MG VIAL IV PUSH ×2 (09:04→20:52)
[2020-03-14] MEDS: ASPIRIN 325 MG TABLET PO (09:04)
--- NOTE | 2020-03-14 10:19 | PCDIET ---
ICU Rounding Note: Patient remains intubated. Tolerating Vital 1.2 at 35mL/hr goal rate. Residuals now 150mL and below. Last recorded weight is 43.1kg which is increased. Bowel Motility: +BM on 03/13/20. Labs Reviewed: Glu (109), Cr (0.2), Na (132), Ca (7.7) Meds Noted: Albuterol, Fentanyl, Solu Medrol, Zosyn, NS at 50mL/hr, Levophed, Folic Acid, Precedex, Colace, Atrovent, Thiamine, Protonix Additional Notes: Recommend checking albumin level for calcium correction. Right elbow with skin tear. Buttocks macerated. Recommend continuing current tube feeding. Following daily in ICU rounds. Assessing/reassessing every Thursday/Thursday.
[2020-03-14 11:33] LABS: Glucose Point of Care 111 (65-105)
[2020-03-14] MEDS: POTASSIUM CHLORIDE 20 MEQ PACKET (FOR LIQUID) 40 MEQ PO ×2 (11:54→16:48)
--- NOTE | 2020-03-14 16:54 | PM.IMPN ---
Progress Note: A&P Assessment and Plan (1) Acute on chronic respiratory failure with hypoxia and hypercapnia: Code(s): J96.21 - Acute and chronic respiratory failure with hypoxia; J96.22 - Acute and chronic respiratory failure with hypercapnia Status: Acute Assessment and Plan: Patient started on BiPAP machine from the ER but with significantly elevated pCO2 and decreased mentation but ultimately required intubation on 03/08/2020. Remains intubated and sedated on mechanical ventilation. Management of ventilator per real time trader. On IV Zosyn D#7 and vancomycin stopped on 03/12/20 after 4 days. Blood Cx NGTD. UCx negative. Continue IV steroids, IV abx and albuterol HFA. (2) COPD exacerbation: Code(s): J44.1 - Chronic obstructive pulmonary disease with (acute) exacerbation Status: Acute Assessment and Plan: Now on ventilator as noted above. Continue IV steroids. Also has albuterol HFA. Spiriva on hold. As above. (3) Shock: Code(s): R57.9 - Shock, unspecified Status: Acute Assessment and Plan: Patient developed shock. Required Dopamine then Levophed. Off Levophed since 03/10/20. Cultures negative. Remains on IV Zosyn as noted above. BP remains well controlled but soft. Will continue to monitor. (4) Encephalopathy: Code(s): G93.40 - Encephalopathy, unspecified Status: Acute Assessment and Plan: Head CT and cervical and lumbar spine CT normal earlier on the day of admission. Mental status changes felt related to hypercapnia and hypoxia. Currently sedated and thus difficult to assess but does become agitated with weaning of sedation. (5) ST elevation on ECG: Code(s): R94.31 - Abnormal electrocardiogram [ECG] [EKG] Status: Acute Assessment and Plan: Patient with noted diffuse ST changes. Trop negative x 3. Echocardiogram EF 65% with no wall motion abnormalities. Cardiology was consulted but not felt patient had STEMI. Appreciate input from Cardiology today. No plan for ischemia workup at this time. (6) Alcohol abuse, daily use: Code(s): F10.10 - Alcohol abuse, uncomplicated Status: Chronic Assessment and Plan: Patient initially on Precedex drip that was discontinued after blood pressure dropped. Precedex has since be resumed. Does have alprazolam as needed. Continue IV thiamine and folic acid. (7) Accident due to mechanical fall without injury: Qualifiers: Encounter type: initial encounter Qualified Code(s): W19.XXXA - Unspecified fall, initial encounter Code(s): W19.XXXA - Unspecified fall, initial encounter Status: Acute Assessment and Plan: Patient did have a fall and was seen earlier on the day of admission here in ER. CT brain negative. CT cervical spine with mild cervical spondylosis but no acute findings. Lumbar x-ray with no acute osseous abnormality. Workup was negative for any acute abnormalities and was discharged home. Start PT/OT once able. (8) Anorexia: Code(s): R63.0 - Anorexia Status: Acute Assessment and Plan: Probably due to COPD and/or alcoholism. Now on tube feedings as she is intubated. (9) Anemia: Code(s): D64.9 - Anemia, unspecified Status: Acute Assessment and Plan: Hgb 12 on admission but appears to be more of an outlier. Hgb more runs in the 9-10 range. Hemoglobin dropped to 8.2 on 03/10/20 but improved to 9.7 today. Borderline low B12 and borderline iron iron deficiency by iron and TIBC and ferritin only 20 suggestion iron deficiency also. No evidence of acute blood loss. Continue to follow GI prophylaxis, not a candidate for any extensive GI eval. Candidate for IV iron before discharge (10) Suspected 2019 novel coronavirus infection: Code(s): Z20.828 - Contact with and (suspected) exposure to other viral communicable diseases Status: Ruled-out Assess
[2020-03-14 17:28] LABS: Glucose Point of Care 140 (65-105)
--- NOTE | 2020-03-14 21:22 | PM.PNPUL ---
Progress Note: A&P Assessment and Plan (1) COPD exacerbation: Code(s): J44.1 - Chronic obstructive pulmonary disease with (acute) exacerbation Status: Acute Assessment and Plan: severe advanced COPD - respiratory failure - weaning per manager commission - will likely need NIPPV post extubation - will continue to follow with you; CXR is marginally worse, however oxygenation is adequate on 30%. CO2 has normalized. (2) Acute on chronic respiratory failure with hypoxia and hypercapnia: Code(s): J96.21 - Acute and chronic respiratory failure with hypoxia; J96.22 - Acute and chronic respiratory failure with hypercapnia Status: Acute Assessment and Plan: Was not able to benefit sufficiently from BiPAP which was started in the ER for elevated pCO2 and decreased mentation, intubated on 03/08/2020; has lower vent requirements, and this is being managed by manager commission. She is on IV Zosyn; Vanco was stopped on 03/12/20 after 4 days. So far cultures remain negative including blood and urine. Continue IV steroids, IV abx and albuterol HFA. Subjective Date/time seen: 03/14/20 21:22 This 54 yo female is seen in follow up for acute respiratory failure; she was mildly over-sedated, was not easily able to have a SBT today. Now her sedatives are decreased, now fentanyl is 50 mcg/hour, propofol is 25 mcg/kg/minute, Precedex 1.2 mcg/kg/hour. She is in CMV mode, 30%, PEEP 5. Review of Systems Review of Systems: ROS unobtainable: Yes unobtainable due to endotracheal tube Exam Const: General: comfortable and no acute distress HENMT: Mouth: Yes moist mucous membranes Neck: Neck: supple and no JVD Resp: Auscultation: no crackles, no rales, no rhonchi and diminished lung sounds Cardio: Rate: regular rate Rhythm: regular rhythm Heart sounds: no murmurs GI: Auscultation: normal bowel sounds Neuro: Other: sedated Extrem: General: normal to inspection and no edema Objective Data Vital Signs Vital Signs: Vital Signs - 24 hr 03/13/20 22:00 03/13/20 23:44 03/14/20 00:00 Temperature 37.6 C 37.3 C Pulse Rate 58 L 54 L 58 L Respiratory Rate 16 18 Blood Pressure 105/65 100/60 Pulse Oximetry 100 100 95 03/14/20 01:53 03/14/20 02:00 03/14/20 02:01 Temperature 37.1 C Pulse Rate 56 L 60 54 L Respiratory Rate 18 18 18 Blood Pressure 91/58 L Pulse Oximetry 100 100 03/14/20 04:00 03/14/20 04:15 03/14/20 05:58 Temperature 36.7 C Pulse Rate 78 58 L 53 L Respiratory Rate 18 Blood Pressure 99/58 L Pulse Oximetry 99 100 03/14/20 06:00 03/14/20 08:00 03/14/20 08:27 Temperature 36.8 C 37.0 C Pulse Rate 54 L 56 L 95 Respiratory Rate 18 18 18 Blood Pressure 92/65 L 89/49 L Pulse Oximetry 100 100 100 03/14/20 08:37 03/14/20 09:59 03/14/20 10:00 Temperature 37.1 C Pulse Rate 92 62 62 Respiratory Rate 18 18 Blood Pressure 86/56 L Pulse Oximetry 100 03/14/20 11:44 03/14/20 12:00 03/14/20 12:12 Temperature 37.3 C Pulse Rate 72 74 72 Respiratory Rate 18 18 Blood Pressure 116/66 Pulse Oximetry 100 95 99 03/14/20 13:54 03/14/20 14:00 03/14/20 15:18 Temperature 37.6 C Pulse Rate 57 L 56 L 56 L Respiratory Rate 19 19 19 Blood Pressure 90/57 L Pulse Oximetry 92 92 92 03/14/20 16:00 03/14/20 16:48 03/14/20 17:51 Temperature 37.4 C Pulse Rate 61 62 79 Respiratory Rate 15 Blood Pressure 91/61 L Pulse Oximetry 93 97 03/14/20 18:00 03/14/20 20:00 03/14/20 20:06 Temperature 37.2 C 37.3 C Pulse Rate 99 61 60 Respiratory Rate 24 H 18 18 Blood Pressure 91/52 L 90/61 L Pulse Oximetry 95 96 03/14/20 20:07 Temperature Pulse Rate 58 L Respiratory Rate Blood Pressure Pulse Oximetry 97 Intake/Output Intake/Output: Intake & Output 03/11/20 03/12/20 03/13/20 03/14/20 23:59 23:59 23:59 23:59 Intake Total 3717 2390 2938 1826 Output Total 1650 2150 2650 3425 Balance 2067 240 302 -7068 Meds/Results Medications: Active M
[2020-03-15] VITALS (26 sets, daily range): BP systolic 84–124; BP diastolic 51–87; PULSE 60–158; RESP 18–28; TEMP 36.7–38.1; O2SAT 94–100
[2020-03-15 00:31] LABS: Glucose Point of Care 151 (65-105)
[2020-03-15] MEDS: LORAZEPAM INJ 2 MG/ML VIAL IV PUSH ×3 (00:39→22:28)
[2020-03-15] MEDS: ALBUTEROL SULFATE NEB 2.5 MG/0.5 ML INH INHALATION ×4 (01:19→19:45)
[2020-03-15] MEDS: IPRATROPIUM BR 0.02% INH SOLN 0.5 MG/2.5 ML VIAL INHALATION ×4 (01:19→19:45)
[2020-03-15 04:32] LABS: Alveolar/Arterial O2 Gradient 75.5 mmHg; Base Excess ABG 7.7 mEq/l (+/-2.0); Carboxyhemoglobin 0.3 % THb (0-2.0); Fractional Inspired Oxygen 30 %; HCO3 ABG 32.9 mEq/l (22.0-26.0); Methemoglobin ABG 0.3 %THb (0-1.5); Oxygen Content ABG 14.8 %vol (16.0-22.0); Oxygen Saturation ABG 96.1 % (95.0-100.0); Oxyhemoglobin 94.2 % THb (90.0-100.0); PCO2 ABG 49.6 mmHg (35.0-45.0); PO2 ABG 80.1 mmHg (80.0-100.0); PO2 FiO2 Ratio Arterial Blood 2.67 %; Reduced Hemoglobin 5.2 %THb (0-5.0); Total Hemoglobin 11.1 g/dL (12.0-18.0)
[2020-03-15 04:33] LABS: Arterial Blood Gas Vent Mode CMV; Arterial Blood Gas Ventilator rate 18 /MIN; Device VENTILATOR; Modified Allen's Test Unable to perform; Site Drawn RIGHT RADIAL
[2020-03-15 04:34] LABS: Arterial Blood Gas PEEP 5 cmH2O; Arterial Blood Gas Tidal Volume 320 ml
[2020-03-15] MEDS: PROPOFOL IV EMULSION 100 ML 7.5 MG IV CONT (04:39)
[2020-03-15 04:51] LABS: Hematocrit 31.9 % (37.0-47.0); Hemoglobin 9.7 g/dL (12.0-15.0); Mean Corpuscular HGB Conc 30.4 g/dl (32-36); Mean Corpuscular Hemoglobin 29.8 pg (26-34); Mean Corpuscular Volume 98.2 fl (80-100); Mean Platelet Volume 8.9 fl (7.4-10.4); Platelet Count Result 285 k/mm3 (150-375); Red Blood Count 3.25 M/mm3 (4.2-5.4); Red Cell Distribution Width 12.7 % (11.5-14.5); White Blood Count 8.4 K/mm3 (4.5-10.0)
[2020-03-15 05:02] LABS: Blood Urea Nitrogen 11 mg/dL (7-17); Calcium 8.1 mg/dL (8.4-10.2); Carbon Dioxide > 40 mmol/L (22-30); Chloride 92 mmol/L (98-107); Estimated CRCL calculation 112 ml/min; Estimated Glomerular Filt Rate > 60; Glucose 132 mg/dL (65-105); Magnesium 2.1 mg/dL (1.6-2.3); Potassium 3.8 mmol/L (3.4-5.0); Sodium 133 mmol/L (137-145)
--- NOTE | 2020-03-15 07:30 | WPDINTPN ---
Progress Note: A&P Assessment and Plan (1) Acute and chronic respiratory failure: Qualifiers: Respiratory failure complication: hypercapnia Qualified Code(s): J96.22 - Acute and chronic respiratory failure with hypercapnia Code(s): J96.20 - Acute and chronic respiratory failure, unspecified whether with hypoxia or hypercapnia Status: Acute Assessment and Plan: patient with acute on chronic hypercapnic respiratory failure likely related to COPD exacerbation. patient appears to have severe COPD at baseline - ABG and chest x-ray reviewed - I have tried several different modes to optimize patient mechanical ventilation. ASV or spontaneous patient's respiratory rate is is very low triggering low minute ventilation. once patient is off sedation she is agitated tachypneic with high RSBI -until today she has failed daily weaning trial due to high RSBI if not on sedation and low minute ventilation if adequately sedated -will try sedation holiday and weaning trial again today - continue CMV with peep of 5 tidal volume to 320, FiO2 increased to 35% - patient has history of severe emphysema, left upper lobectomy in 2013 due to spontaneous pneumothorax. - cultures have been negative - Continue Zosyn. vancomycin has been discontinued - continue Solu-Medrol but decrease to daily - continue bronchodilators, - sedated with fentanyl, Precedex and propofol , maintained RASS of 0 to -2 (2) COPD exacerbation: Code(s): J44.1 - Chronic obstructive pulmonary disease with (acute) exacerbation Status: Acute Assessment and Plan: patient with history of COPD on 3-4 L of oxygen at home, follows with Dr. Suggs - pulmonology following - continue bronchodilators and antibiotics - continue Solu-Medrol (3) Alcohol abuse, daily use: Code(s): F10.10 - Alcohol abuse, uncomplicated Status: Chronic Assessment and Plan: patient with alcohol abuse currently sedated - continue thiamine, folic acid - monitor for alcohol withdrawal (4) ST elevation on ECG: Code(s): R94.31 - Abnormal electrocardiogram [ECG] [EKG] Status: Acute Assessment and Plan: ST-elevation on EKG, troponin x3 were negative - appreciate Cardiology evaluation recommendation, continue current management ECHO Summary 1. Left ventricular systolic function is normal, estimated at 60-65%. 2. Right ventricular chamber dimension is normal. 3. No valvular abnormalities. 4. Pericardium has a thickened nodular appearance. (5) Tobacco abuse: Code(s): Z72.0 - Tobacco use Status: Chronic Assessment and Plan: patient continues to smoke half a packet a day - will crisis intervention counselor on cessation of smoking when she is extubated (6) Accident due to mechanical fall without injury: Qualifiers: Encounter type: initial encounter Qualified Code(s): W19.XXXA - Unspecified fall, initial encounter Code(s): W19.XXXA - Unspecified fall, initial encounter Status: Acute Assessment and Plan: patient had a mechanical fall, CT scan of the head did not show any acute injuries, cervical, lumbar spine showed mild spondylolysis - continue with pain control (7) Suspected 2019 novel coronavirus infection: Code(s): Z20.828 - Contact with and (suspected) exposure to other viral communicable diseases Status: Ruled-out Assessment and Plan: patient with acute respiratory failure, ST changes on EKG - SARS-CoV-2 PCR is negative - patient taken off airborne, droplet, contact isolation (8) Shock: Code(s): R57.9 - Shock, unspecified Status: Acute Assessment and Plan: patient developed hypotension, likely shock positive pressure ventilation, infection - patient was on Levophed, but currently off - continue Zosyn - blood and urine cultures have been obtained and negative at this time (9) Atrial fibrillation: Qualif
[2020-03-15] MEDS: methylPREDNISolone SOD SUCC 40 MG VIAL IV PUSH ×2 (07:42→20:13)
[2020-03-15] MEDS: ENOXAPARIN 40 MG/0.4 ML SYRINGE SUB-Q (07:42)
[2020-03-15] MEDS: PANTOPRAZOLE SODIUM IV 40 MG VIAL IV PUSH (07:42)
[2020-03-15] MEDS: THIAMINE HCL 200 MG/2 ML VIAL 100 MG IV PUSH (07:42)
[2020-03-15] MEDS: ASPIRIN 325 MG TABLET PO (07:43)
[2020-03-15] MEDS: ESCITALOPRAM OXALATE 10 MG TABLET PO (07:43)
[2020-03-15] MEDS: DOCUSATE SODIUM LIQ 100 MG/10 ML UDC PO ×2 (07:43→20:13)
[2020-03-15] MEDS: FOLIC ACID 1 MG/0.2 ML INJ IV PUSH (07:50)
--- NOTE | 2020-03-15 10:22 | PCDIET ---
ICU Rounding Note: Patient remains intubated on Vital 1.2 tube feedings at 35mL/hr. Residuals 80mL and below. Last recorded weight is 43.0kg which is stable. Bowel Motility: No BM from last review. Patient remains on Colace. Labs Reviewed: Hgb (9.7), Hct (31.9), Glu (132), Cr (0.3), Na (133) Meds Noted: Albuterol, Folic Acid, Atrovent, Precedex, Solu Medrol, Levophed, Colace, Fentanyl, Protonix, Zosyn, Thiamine, Propofol (rate of 6.3mL/hr providing 166kcal over 24 hour period) Additional Notes: Buttocks macerated. Right elbow with skin tear. Following daily in ICU rounds. Assessing/reassessing every Thursday/Thursday.
[2020-03-15 11:43] LABS: Glucose Point of Care 149 (65-105)
--- NOTE | 2020-03-15 13:09 | PM.PNPUL ---
Progress Note: A&P Assessment and Plan (1) COPD exacerbation: Code(s): J44.1 - Chronic obstructive pulmonary disease with (acute) exacerbation Status: Acute (2) Acute on chronic respiratory failure with hypoxia and hypercapnia: Code(s): J96.21 - Acute and chronic respiratory failure with hypoxia; J96.22 - Acute and chronic respiratory failure with hypercapnia Status: Acute Assessment and Plan: Can likely be extubated while on current sedation IV meds with BIPAP and close monitoring. Would have to accept some amount of extubation failure rate but this is likely as good as she gets. Time Spent With Patient Time with patient: 15 - 25 minutes Subjective Date/time seen: 03/15/20 13:09 Interval history: Pt awake and alert, follows commands, very anxious despite being on dexomitomidine, fentanyl and propofol drip. Hemodynamically stable. Review of Systems Review of Systems: All systems reviewed & are unremarkable except as noted in HPI and below Exam Const: General: comfortable and no acute distress HENMT: Mouth: Yes moist mucous membranes Neck: Neck: supple and no JVD Resp: Auscultation: no crackles, no rales, no rhonchi and diminished lung sounds Cardio: Rate: regular rate Rhythm: regular rhythm Heart sounds: no murmurs GI: Auscultation: normal bowel sounds Neuro: Other: sedated Extrem: General: normal to inspection and no edema Objective Data Vital Signs Vital Signs: Vital Signs - 24 hr 03/14/20 13:54 03/14/20 14:00 03/14/20 15:18 Temperature 37.6 C Pulse Rate 57 L 56 L 56 L Respiratory Rate 19 19 19 Blood Pressure 90/57 L Pulse Oximetry 92 92 92 03/14/20 16:00 03/14/20 16:48 03/14/20 17:51 Temperature 37.4 C Pulse Rate 61 62 79 Respiratory Rate 15 Blood Pressure 91/61 L Pulse Oximetry 93 97 03/14/20 18:00 03/14/20 20:00 03/14/20 20:06 Temperature 37.2 C 37.3 C Pulse Rate 99 61 60 Respiratory Rate 24 H 18 18 Blood Pressure 91/52 L 90/61 L Pulse Oximetry 95 97 03/14/20 20:07 03/14/20 20:30 03/14/20 22:00 Temperature 37.3 C Pulse Rate 58 L 60 91 Respiratory Rate 18 19 Blood Pressure 126/70 Pulse Oximetry 97 100 03/15/20 00:00 03/15/20 00:05 03/15/20 01:10 Temperature 37.9 C H Pulse Rate 79 79 72 Respiratory Rate 22 H 18 Blood Pressure 124/80 Pulse Oximetry 100 94 03/15/20 01:16 03/15/20 01:21 03/15/20 01:46 Temperature 38.1 C H 38.0 C H Pulse Rate 71 Respiratory Rate Blood Pressure Pulse Oximetry 98 03/15/20 02:00 03/15/20 03:56 03/15/20 04:00 Temperature 37.9 C H 37.0 C Pulse Rate 64 77 77 Respiratory Rate 18 18 Blood Pressure 89/59 L 92/56 L Pulse Oximetry 98 96 97 03/15/20 06:00 03/15/20 08:00 03/15/20 08:06 Temperature 36.7 C 37.1 C Pulse Rate 98 136 H 22 L Respiratory Rate 20 21 H 123 H Blood Pressure 100/65 119/83 Pulse Oximetry 98 96 99 03/15/20 10:00 03/15/20 12:00 03/15/20 12:03 Temperature 37.4 C 37.3 C Pulse Rate 62 158 H 119 H Respiratory Rate 18 20 Blood Pressure 84/51 L 115/82 Pulse Oximetry 99 98 96 Intake/Output Intake/Output: Intake & Output 03/12/20 03/13/20 03/14/20 03/15/20 23:59 23:59 23:59 23:59 Intake Total 2390 2938 1905 1040 Output Total 2150 2650 3425 2400 Balance 240 808 -4013 -1846 Meds/Results Medications: Active Medications Generic Name Dose Route Start Last Admin Trade Name Freq PRN Reason Stop Dose Admin Albuterol 2.5 mg 03/10/20 08:00 03/15/20 08:06 Albuterol Sulf Neb 2.5mg/0.5ml INHALATION 2.5 mg Q6HRT DAILY Administration Aspirin 325 mg 03/12/20 08:00 03/15/20 07:43 Aspirin PO 325 mg DAILY@0800 DAILY Administration Docusate Sodium 100 mg 03/13/20 09:10 03/15/20 07:43 Colace Liquid PO 100 mg Q12HR DAILY Administration Enoxaparin Sodium 40 mg 03/11/20 09:00 03/15/20 07:42 Lovenox SUB-Q 40 mg DAILY DAILY Administration Escitalopram Oxalate 10 mg 03/09/20 10:45 03/15/20
[2020-03-15] MEDS: PROPOFOL IV EMULSION 100 ML 12.5 MG IV CONT ×2 (14:13→21:12)
--- NOTE | 2020-03-15 17:20 | PM.IMPN ---
Progress Note: A&P Assessment and Plan (1) Acute on chronic respiratory failure with hypoxia and hypercapnia: Code(s): J96.21 - Acute and chronic respiratory failure with hypoxia; J96.22 - Acute and chronic respiratory failure with hypercapnia Status: Acute Assessment and Plan: Patient started on BiPAP machine from the ER but with significantly elevated pCO2 and decreased mentation but ultimately required intubation on 03/08/2020. Remains intubated and sedated on mechanical ventilation. Management of ventilator per rn cvor. On IV Zosyn D#8 and vancomycin stopped on 03/12/20 after 4 days. Blood Cx NGTD. UCx negative. Continue IV steroids, IV abx and albuterol HFA. low grade temp with no change in cxr (2) COPD exacerbation: Code(s): J44.1 - Chronic obstructive pulmonary disease with (acute) exacerbation Status: Acute Assessment and Plan: Now on ventilator as noted above. Continue IV steroids, decreased to daily. Also has albuterol HFA. Spiriva on hold. As above. (3) Shock: Code(s): R57.9 - Shock, unspecified Status: Acute Assessment and Plan: Patient developed shock. Required Dopamine then Levophed. Off Levophed since 03/10/20. Cultures negative. Remains on IV Zosyn as noted above. BP remains well controlled but soft. Will continue to monitor. (4) Encephalopathy: Code(s): G93.40 - Encephalopathy, unspecified Status: Acute Assessment and Plan: Head CT and cervical and lumbar spine CT normal earlier on the day of admission. Mental status changes felt related to hypercapnia and hypoxia. Currently off sedation and very agitiated. (5) ST elevation on ECG: Code(s): R94.31 - Abnormal electrocardiogram [ECG] [EKG] Status: Acute Assessment and Plan: Patient with noted diffuse ST changes. Trop negative x 3. Echocardiogram EF 65% with no wall motion abnormalities. Cardiology was consulted but not felt patient had STEMI. Appreciate input from Cardiology today. No plan for ischemia workup at this time. (6) Alcohol abuse, daily use: Code(s): F10.10 - Alcohol abuse, uncomplicated Status: Chronic Assessment and Plan: Patient initially on Precedex drip that was discontinued after blood pressure dropped. Precedex has since be resumed. Does have alprazolam as needed. Continue IV thiamine and folic acid. (7) Accident due to mechanical fall without injury: Qualifiers: Encounter type: initial encounter Qualified Code(s): W19.XXXA - Unspecified fall, initial encounter Code(s): W19.XXXA - Unspecified fall, initial encounter Status: Acute Assessment and Plan: Patient did have a fall and was seen earlier on the day of admission here in ER. CT brain negative. CT cervical spine with mild cervical spondylosis but no acute findings. Lumbar x-ray with no acute osseous abnormality. Workup was negative for any acute abnormalities and was discharged home. Start PT/OT once able. (8) Anorexia: Code(s): R63.0 - Anorexia Status: Acute Assessment and Plan: Probably due to COPD and/or alcoholism. Now on tube feedings as she is intubated. (9) Anemia: Code(s): D64.9 - Anemia, unspecified Status: Acute Assessment and Plan: Hgb 12 on admission but appears to be more of an outlier. Hgb more runs in the 9-10 range. Hemoglobin dropped to 8.2 on 03/10/20 but improved to 9.7 again today. Borderline low B12 and borderline iron iron deficiency by iron and TIBC and ferritin only 20 suggestion iron deficiency also. No evidence of acute blood loss. Continue to follow GI prophylaxis, not a candidate for any extensive GI eval. Candidate for IV iron before discharge (10) Suspected 2019 novel coronavirus infection: Code(s): Z20.828 - Contact with and (suspected) exposure to other viral communicable diseases Status: Ruled-out
[2020-03-16] VITALS (32 sets, daily range): BP systolic 77–124; BP diastolic 49–80; PULSE 52–125; RESP 16–27; TEMP 36.3–37.4; O2SAT 90–100
[2020-03-16 00:24] LABS: Glucose Point of Care 135 (65-105)
[2020-03-16] MEDS: ALBUTEROL SULFATE NEB 2.5 MG/0.5 ML INH INHALATION ×4 (01:21→20:46)
[2020-03-16] MEDS: IPRATROPIUM BR 0.02% INH SOLN 0.5 MG/2.5 ML VIAL INHALATION ×4 (01:21→20:46)
[2020-03-16 04:34] LABS: Alveolar/Arterial O2 Gradient 59.9 mmHg; Carboxyhemoglobin 0.3 % THb (0-2.0); Fractional Inspired Oxygen 30 %; HCO3 ABG 37.3 mEq/l (22.0-26.0); Methemoglobin ABG 0.3 %THb (0-1.5); Oxygen Content ABG 14.4 %vol (16.0-22.0); Oxygen Saturation ABG 97.3 % (95.0-100.0); Oxyhemoglobin 95.6 % THb (90.0-100.0); PCO2 ABG 52.4 mmHg (35.0-45.0); PO2 ABG 92.4 mmHg (80.0-100.0); PO2 FiO2 Ratio Arterial Blood 3.08 %; Reduced Hemoglobin 3.8 %THb (0-5.0); Total Hemoglobin 10.6 g/dL (12.0-18.0)
[2020-03-16 04:37] LABS: Arterial Blood Gas PEEP 5 cmH2O; Arterial Blood Gas Tidal Volume 320 ml; Arterial Blood Gas Vent Mode CMV; Arterial Blood Gas Ventilator rate 18 /MIN; Device VENTILATOR; Modified Allen's Test Unable to perform; Site Drawn RIGHT RADIAL
[2020-03-16 04:58] LABS: Hematocrit 30.5 % (37.0-47.0); Hemoglobin 9.4 g/dL (12.0-15.0); Mean Corpuscular HGB Conc 30.8 g/dl (32-36); Mean Corpuscular Hemoglobin 30.3 pg (26-34); Mean Corpuscular Volume 98.4 fl (80-100); Mean Platelet Volume 8.6 fl (7.4-10.4); Platelet Count Result 310 k/mm3 (150-375); Red Cell Distribution Width 12.8 % (11.5-14.5)
[2020-03-16 05:26] LABS: Alanine Aminotransferase 12 U/L (4-35); Albumin Level 2.9 g/dL (3.5-5.1); Alkaline Phosphatase 42 U/L (38-126); Aspartate Amino Transferase 14 U/L (14-36); Bilirubin,Total 0.3 mg/dL (0.2-1.3); Blood Urea Nitrogen 10 mg/dL (7-17); Carbon Dioxide > 40 mmol/L (22-30); Chloride 93 mmol/L (98-107); Estimated CRCL calculation 112 ml/min; Estimated Glomerular Filt Rate > 60; Glucose 147 mg/dL (65-105); Magnesium 2.1 mg/dL (1.6-2.3); Potassium 3.7 mmol/L (3.4-5.0); Sodium 135 mmol/L (137-145)
[2020-03-16] MEDS: PROPOFOL IV EMULSION 100 ML 10 MG IV CONT (05:36)
--- NOTE | 2020-03-16 07:30 | WPDINTPN ---
Progress Note: A&P Assessment and Plan (1) Acute and chronic respiratory failure: Qualifiers: Respiratory failure complication: hypercapnia Qualified Code(s): J96.22 - Acute and chronic respiratory failure with hypercapnia Code(s): J96.20 - Acute and chronic respiratory failure, unspecified whether with hypoxia or hypercapnia Status: Acute Assessment and Plan: patient with acute on chronic hypercapnic respiratory failure likely related to COPD exacerbation. patient appears to have severe COPD at baseline - ABG and chest x-ray reviewed - I have tried several different modes to optimize patient mechanical ventilation. ASV or spontaneous patient's respiratory rate is is very low triggering low minute ventilation. once patient is off sedation she is agitated tachypneic with high RSBI -until today she has failed daily weaning trial due to high RSBI if not on sedation and low minute ventilation if calmed with adequate sedative -will try sedation holiday and weaning trial again today - continue CMV with peep of 5, decreased tidal volume to 300, FiO2 increased to 35% - patient has history of severe emphysema, left upper lobectomy in 2012 due to spontaneous pneumothorax. - cultures have been negative - Continue Zosyn. vancomycin has been discontinued - continue Solu-Medrol but decreased to daily - continue bronchodilators, - sedated with fentanyl, Precedex and propofol , maintained RASS of 0 to -2 (2) COPD exacerbation: Code(s): J44.1 - Chronic obstructive pulmonary disease with (acute) exacerbation Status: Acute Assessment and Plan: patient with history of COPD on 3-4 L of oxygen at home, follows with Dr. Suggs - pulmonology following - continue bronchodilators and antibiotics - continue Solu-Medrol (3) Alcohol abuse, daily use: Code(s): F10.10 - Alcohol abuse, uncomplicated Status: Chronic Assessment and Plan: patient with alcohol abuse currently sedated - continue thiamine, folic acid - monitor for alcohol withdrawal (4) ST elevation on ECG: Code(s): R94.31 - Abnormal electrocardiogram [ECG] [EKG] Status: Acute Assessment and Plan: ST-elevation on EKG, troponin x3 were negative - appreciate Cardiology evaluation recommendation, continue current management ECHO Summary 1. Left ventricular systolic function is normal, estimated at 60-65%. 2. Right ventricular chamber dimension is normal. 3. No valvular abnormalities. 4. Pericardium has a thickened nodular appearance. (5) Tobacco abuse: Code(s): Z72.0 - Tobacco use Status: Chronic Assessment and Plan: patient continues to smoke half a packet a day - will student support counselor on cessation of smoking when she is extubated (6) Accident due to mechanical fall without injury: Qualifiers: Encounter type: initial encounter Qualified Code(s): W19.XXXA - Unspecified fall, initial encounter Code(s): W19.XXXA - Unspecified fall, initial encounter Status: Acute Assessment and Plan: patient had a mechanical fall, CT scan of the head did not show any acute injuries, cervical, lumbar spine showed mild spondylolysis - continue with pain control (7) Suspected 2019 novel coronavirus infection: Code(s): Z20.828 - Contact with and (suspected) exposure to other viral communicable diseases Status: Ruled-out Assessment and Plan: patient with acute respiratory failure, ST changes on EKG - SARS-CoV-2 PCR is negative - patient taken off airborne, droplet, contact isolation (8) Shock: Code(s): R57.9 - Shock, unspecified Status: Acute Assessment and Plan: patient developed hypotension, likely shock positive pressure ventilation, infection - patient was on Levophed, but currently off - continue Zosyn - blood and urine cultures have been obtained and negative at this time (9) Atrial fibri
[2020-03-16] MEDS: ENOXAPARIN 40 MG/0.4 ML SYRINGE SUB-Q (07:50)
[2020-03-16] MEDS: methylPREDNISolone SOD SUCC 40 MG VIAL IV PUSH (07:50)
[2020-03-16] MEDS: DOCUSATE SODIUM LIQ 100 MG/10 ML UDC PO (07:51)
[2020-03-16] MEDS: ASPIRIN 325 MG TABLET PO (07:51)
[2020-03-16] MEDS: THIAMINE HCL 200 MG/2 ML VIAL 100 MG IV PUSH (07:51)
[2020-03-16] MEDS: ESCITALOPRAM OXALATE 10 MG TABLET PO (07:51)
[2020-03-16] MEDS: PANTOPRAZOLE SODIUM IV 40 MG VIAL IV PUSH (07:51)
[2020-03-16] MEDS: FOLIC ACID 1 MG/0.2 ML INJ IV PUSH (07:52)
[2020-03-16 08:17] LABS: Base Excess ABG 7.2 mEq/l (+/-2.0); Fractional Inspired Oxygen 30 %; HCO3 ABG 32.7 mEq/l (22.0-26.0); Oxygen Saturation ABG 95.8 % (95.0-100.0); Oxyhemoglobin 93.8 % THb (90.0-100.0); PCO2 ABG 50.9 mmHg (35.0-45.0); PO2 ABG 79.1 mmHg (80.0-100.0); PO2 FiO2 Ratio Arterial Blood 2.64 %; Site Drawn RIGHT RADIAL; Total Hemoglobin 11.3 g/dL (12.0-18.0); pH ABG 7.426 (7.350-7.450)
[2020-03-16 08:18] LABS: Arterial Blood Gas PEEP 5 cmH2O; Arterial Blood Gas Pressure Support 5 cmH2O; Arterial Blood Gas Vent Mode PRESSURE SUPPORT; Device VENTILATOR; Modified Allen's Test Pass
--- NOTE | 2020-03-16 08:20 | P.CDI_ITS ---
CDI Query Clarification Request - Pneumothorax on left: Status: Acute Assessment and Plan: patient has history of L spontaneous pneumothorax twice in the past, had a L upper lobectomy in 2013. Pt also has history of Left- sided VATS procedure and apical bleb resection with pleurodesis. Patient now has persistent small left basilar pneumothorax which in light of her upright position has unchanged and appears to be trapped lung from past pleurodesis. Has been documented by intensivists. - No mention of pneumothorax by hospitalists/ attending Please clarify if you agree with diagnosis of pneumothorax.
--- NOTE | 2020-03-16 08:26 | PM.EVENT ---
Event Note Event Note Event Note: 5/5 PSV SBT done for more than 0.5 hour. RSBI, ABGI and Vitals acceptable. Pt is awake and following commands. She still is using some accessory muscle and is on some sedation to keep her. Patient has severe COPD and I feel this is the best she is going to get when it comes to ready to wean. I will extubate patient at this time and monitor. NPO for now. She will need Bipap PRN and at night. Relatively high chance of re-intubation.
--- NOTE | 2020-03-16 11:30 | PCDIET ---
Nutrition Follow-Up Complete: Nutrition Diagnosis: Inadequate oral intake related to oral intubation as evidenced by NPO status. Nutrition Goal: Patient to meet estimated nutritional needs. Goal in progress. Patient extubated earlier today with MD order for swallow evaluation. Patient being made NPO until swallow study completed. Last recorded weight is 39.1 kg which is decreased from last review. -I/O. Bowel Motility: Liquid stools reported. Labs Reviewed: Hgb (9.4), Hct (30.5), Glu (147), Na (135), Alb (2.9), Agusto Ca (8.88) Meds Noted: Albuterol, Fentanyl, Solu Medrol, Zosyn, Precedex, Folic Acid, Levophed, Thiamine, Colace, Atrovent, Protonix Additional Notes: Buttocks macerated. Right elbow with skin tear. If unable to safely advance diet following RUG SCRATCHER evaluation, recommend resuming enteral feedings: Jevity 1.2 at goal rate of 50mL/hr would provide 1320kcal, 61g protein and 887mL free water (given 22 hour/day infusion). Recommend 50mL water flush every 4 hours. Nutrition Monitoring and Evaluation: Follow up every 3 days. Follow daily in ICU rounds.
--- NOTE | 2020-03-16 12:04 | PM.IMPN ---
Progress Note: A&P Assessment and Plan (1) Acute on chronic respiratory failure with hypoxia and hypercapnia: Code(s): J96.21 - Acute and chronic respiratory failure with hypoxia; J96.22 - Acute and chronic respiratory failure with hypercapnia Status: Acute Assessment and Plan: Patient started on BiPAP from the ER but with significantly elevated pCO2 and decreased mentation but ultimately required intubation on 03/08/2020. Able to be extubated today. Remains on IV Zosyn D#9 and vancomycin stopped on 03/12/20 after 4 days. Blood Cx NGTD. UCx negative. CXR showing persistent small PTX. Appears to be tolerating this well. No plans for chest tube. Continue IV steroids, IV abx and albuterol HFA. (2) Pneumothorax on left: Code(s): J93.9 - Pneumothorax, unspecified Status: Acute Assessment and Plan: Patient has hx of left spontaneous PTX x2 August 2012. These were recurrent on the left and she had a subsequent VATS procedure and apical blebectomy as well as pleurodesis. 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 Continue to follow. (3) COPD exacerbation: Code(s): J44.1 - Chronic obstructive pulmonary disease with (acute) exacerbation Status: Acute Assessment and Plan: Weaned off mechanical ventilation and back on O2 NC. Continue IV steroids, albuterol HFA. Spiriva on hold. As above. (4) Shock: Code(s): R57.9 - Shock, unspecified Status: Acute Assessment and Plan: Patient developed shock. Required Dopamine then Levophed. Off Levophed since 03/10/20. Cultures negative. Remains on IV Zosyn as noted above. BP dropped 77/58 from propofol. BP better off most sedation. Will continue to monitor. (5) Atrial fibrillation: Qualifiers: Atrial fibrillation type: unspecified Qualified Code(s): I48.91 - Unspecified atrial fibrillation Code(s): I48.91 - Unspecified atrial fibrillation Status: Acute Assessment and Plan: Patient without hx of AFib listed but was on Eliquis on admission. May have pAFib. Unclear but may have had episode of AFib here. No documentation by lasting floorworker assessment of AFib. Continue tele for now. Clarify why she is on Eliquis. (6) Encephalopathy: Code(s): G93.40 - Encephalopathy, unspecified Status: Acute Assessment and Plan: Head CT and cervical and lumbar spine CT normal earlier on the day of admission. Mental status changes felt related to hypercapnia and hypoxia. Remains on Precedex. Continue to monitor as Precedex being weaned. (7) ST elevation on ECG: Code(s): R94.31 - Abnormal electrocardiogram [ECG] [EKG] Status: Acute Assessment and Plan: Patient with noted diffuse ST changes. Trop negative x 3. Echocardiogram EF 65% with no wall motion abnormalities. Cardiology was consulted but not felt patient had STEMI. Appreciate input from Cardiology today. No plan for ischemia workup at this time. (8) Alcohol abuse, daily use: Code(s): F10.10 - Alcohol abuse, uncomplicated Status: Chronic Assessment and Plan: Patient initially on Precedex drip that was discontinued after blood pressure dropped. Precedex has since be resumed. Does have alprazolam as needed. Continue IV thiamine and folic acid. (9) Accident due to mechanical fall without injury: Qualifiers: Encounter type: initial encounter Qualified Code(s): W19.XXXA - Unspecified fall, initial encounter Code(s): W19.XXXA - Unspecified fall, initial encounter Status: Acute Assessment and Plan: Patient did have a fall and was seen earlier on the day of admission here in ER. CT brain negative. CT cervical spine with mild cervical spondylosis but no acute findings. Lumbar x-ray with no acute osseous abnormality. Workup was negative for any acute abnormalities and was discharged home. Start PT/OT once off
--- NOTE | 2020-03-16 13:22 | PM.PNPUL ---
Progress Note: A&P Assessment and Plan (1) COPD exacerbation: Code(s): J44.1 - Chronic obstructive pulmonary disease with (acute) exacerbation Status: Acute (2) Acute on chronic respiratory failure with hypoxia and hypercapnia: Code(s): J96.21 - Acute and chronic respiratory failure with hypoxia; J96.22 - Acute and chronic respiratory failure with hypercapnia Status: Acute Assessment and Plan: Extubated and doing well so far. Has not required BIPAP so far. continue bronchodilators incluidng Albuterol/Ipratropium. Consider adding Pulmicort 0.5 mg Nebulized BID as systemic steroids are being weaned off. Considering discontinuing antibiotics PT/OT and early mobility Subjective Date/time seen: 03/16/20 13:22 Interval history: Extubated this morning to nasal cannula 2 liters. She's a bit disoriented but appears comforable, alert and awake with stable vitals Review of Systems Review of Systems: All systems reviewed & are unremarkable except as noted in HPI and below Exam Const: General: comfortable and no acute distress HENMT: Mouth: Yes moist mucous membranes Neck: Neck: supple and no JVD Resp: Auscultation: no crackles, no rales, no rhonchi and diminished lung sounds Cardio: Rate: regular rate Rhythm: regular rhythm Heart sounds: no murmurs GI: Auscultation: normal bowel sounds Neuro: Other: sedated Extrem: General: normal to inspection and no edema Objective Data Vital Signs Vital Signs: Vital Signs - 24 hr 03/15/20 14:00 03/15/20 16:00 03/15/20 17:23 Temperature 37.8 C H 38.0 C H Pulse Rate 120 H 89 103 H Respiratory Rate 26 H 22 H Blood Pressure 116/76 95/57 L Pulse Oximetry 97 97 99 03/15/20 18:00 03/15/20 19:45 03/15/20 19:54 Temperature 37.6 C Pulse Rate 102 H 97 96 Respiratory Rate 20 20 21 H Blood Pressure 112/72 Pulse Oximetry 99 97 03/15/20 20:00 03/15/20 22:00 03/15/20 23:03 Temperature 37.5 C Pulse Rate 127 H 79 60 Respiratory Rate 19 18 Blood Pressure 119/85 124/87 Pulse Oximetry 96 96 98 03/16/20 00:00 03/16/20 01:21 03/16/20 01:30 Temperature 37.3 C Pulse Rate 57 L 52 L 52 L Respiratory Rate 18 18 18 Blood Pressure 91/59 L Pulse Oximetry 100 100 03/16/20 02:00 03/16/20 04:00 03/16/20 05:34 Temperature 36.3 C L Pulse Rate 55 L 53 L 52 L Respiratory Rate 18 18 Blood Pressure 83/53 L 91/54 L Pulse Oximetry 100 100 100 03/16/20 06:00 03/16/20 06:30 03/16/20 07:45 Temperature Pulse Rate 53 L 108 H Respiratory Rate 18 Blood Pressure 77/58 L 84/49 L Pulse Oximetry 100 98 03/16/20 07:51 03/16/20 08:00 03/16/20 09:05 Temperature 37.0 C Pulse Rate 107 H 102 H Respiratory Rate 16 18 Blood Pressure 101/64 Pulse Oximetry 94 96 03/16/20 10:00 03/16/20 10:32 Temperature 37.3 C Pulse Rate 125 H Respiratory Rate 20 Blood Pressure 124/68 Pulse Oximetry 96 100 Intake/Output Intake/Output: Intake & Output 03/13/20 03/14/20 03/15/20 03/16/20 23:59 23:59 23:59 23:59 Intake Total 2938 1905 2109 1034 Output Total 2650 3425 4300 2800 Balance 276 -1520 -2191 -1766 Meds/Results Medications: Active Medications Generic Name Dose Route Start Last Admin Trade Name Freq PRN Reason Stop Dose Admin Albuterol 2.5 mg 03/10/20 08:00 03/16/20 07:51 Albuterol Sulf Neb 2.5mg/0.5ml INHALATION 2.5 mg Q6HRT DAILY Administration Alprazolam 0.5 mg 03/16/20 10:24 Xanax PO QID PRN Anxiety Aspirin 325 mg 03/12/20 08:00 03/16/20 07:51 Aspirin PO 325 mg DAILY@0800 DAILY Administration Docusate Sodium 100 mg 03/13/20 09:10 03/16/20 07:51 Colace Liquid PO 100 mg Q12HR DAILY Administration Enoxaparin Sodium 40 mg 03/11/20 09:00 03/16/20 07:50 Lovenox SUB-Q 40 mg DAILY DAILY Administration Escitalopram Oxalate 10 mg 03/09/20 10:45 03/16/20 07:51 Lexapro PO 10 mg QAM DAILY Administration Folic Acid 1 mg 03/09/20 09:00 05
[2020-03-16] MEDS: ALPRAZOLAM 0.5 MG TABLET PO (17:50)
[2020-03-16] MEDS: CYANOCOBALAMIN INJ 1,000 MCG/ML VIAL 1000 MCG IM (18:23)
--- NOTE | 2020-03-16 21:20 | PC.NURSE ---
Patient fixated on finding checkbook states that it was on the chair in her room today. This RN checked patient belongings and belongings list. No checkbook is listed. Also, verified with dayshift RN Aditya that patient did not have a checkbook in her room today.
--- NOTE | 2020-03-16 21:27 | PC.NURSE ---
Called patient's son/rohan Huynh in regards to her checkbook. Son states that he is at work and will go to her home and look for it when he is off work. Also, he states that patient typically worries about her checkbook when she is in the hospital and he doesn't believe that she brought it with her to the hospital.
[2020-03-16] MEDS: LORAZEPAM INJ 2 MG/ML VIAL IV PUSH (21:36)
[2020-03-17] VITALS (29 sets, daily range): BP systolic 88–121; BP diastolic 50–74; PULSE 67–119; RESP 16–31; TEMP 36.7–37.4; O2SAT 9–100
[2020-03-17] MEDS: ALPRAZOLAM 0.5 MG TABLET PO ×5 (00:04→22:18)
[2020-03-17] MEDS: ALBUTEROL SULFATE NEB 2.5 MG/0.5 ML INH INHALATION ×3 (02:52→14:03)
[2020-03-17] MEDS: IPRATROPIUM BR 0.02% INH SOLN 0.5 MG/2.5 ML VIAL INHALATION ×4 (02:53→20:57)
[2020-03-17] MEDS: LIDOCAINE 5% PATCH 1 PATCH TRANSDERM (04:15)
[2020-03-17] MEDS: LORAZEPAM INJ 2 MG/ML VIAL IV PUSH (04:15)
[2020-03-17] MEDS: ACETAMINOPHEN 500 MG TABLET PO ×2 (04:33→22:18)
[2020-03-17 04:40] LABS: Hematocrit 30.7 % (37.0-47.0); Hemoglobin 9.4 g/dL (12.0-15.0); Mean Corpuscular HGB Conc 30.6 g/dl (32-36); Mean Corpuscular Hemoglobin 29.6 pg (26-34); Mean Corpuscular Volume 96.5 fl (80-100); Mean Platelet Volume 8.6 fl (7.4-10.4); Platelet Count Result 400 k/mm3 (150-375); Red Blood Count 3.18 M/mm3 (4.2-5.4); Red Cell Distribution Width 12.5 % (11.5-14.5); White Blood Count 8.1 K/mm3 (4.5-10.0)
[2020-03-17 04:45] LABS: Alveolar/Arterial O2 Gradient 40.5 mmHg; Base Excess ABG 9.7 mEq/l (+/-2.0); Carboxyhemoglobin 0.3 % THb (0-2.0); Fractional Inspired Oxygen 23 %; HCO3 ABG 34.1 mEq/l (22.0-26.0); Methemoglobin ABG 0.2 %THb (0-1.5); Oxygen Content ABG 13.9 %vol (16.0-22.0); Oxyhemoglobin 92.1 % THb (90.0-100.0); PCO2 ABG 45.6 mmHg (35.0-45.0); PO2 ABG 69.1 mmHg (80.0-100.0); Reduced Hemoglobin 7.4 %THb (0-5.0); Total Hemoglobin 10.7 g/dL (12.0-18.0); pH ABG 7.492 (7.350-7.450)
[2020-03-17 04:49] LABS: Device NASAL CANNULA; Site Drawn RIGHT BRACHIAL
[2020-03-17 04:50] LABS: Liters per Minute 0.5 LPM
[2020-03-17 05:01] LABS: Alanine Aminotransferase 14 U/L (4-35); Albumin Level 3.1 g/dL (3.5-5.1); Alkaline Phosphatase 46 U/L (38-126); Aspartate Amino Transferase 19 U/L (14-36); Bilirubin,Total 0.4 mg/dL (0.2-1.3); Blood Urea Nitrogen 9 mg/dL (7-17); Calcium 8.2 mg/dL (8.4-10.2); Carbon Dioxide > 40 mmol/L (22-30); Chloride 96 mmol/L (98-107); Estimated CRCL calculation 101 ml/min; Estimated Glomerular Filt Rate > 60; Glucose 57 mg/dL (65-105); Magnesium 2.3 mg/dL (1.6-2.3); Potassium 3.4 mmol/L (3.4-5.0); Sodium 138 mmol/L (137-145)
[2020-03-17 05:11] LABS: Glucose Point of Care 81 (65-105)
--- NOTE | 2020-03-17 05:30 | PC.NURSE ---
Pt continues to ask ancillary staff to look for her checkbook. Son/pohaley Huynh did not return phone call regarding checkbook as stated that he would.
[2020-03-17 08:14] LABS: Glucose Point of Care 79 (65-105)
--- NOTE | 2020-03-17 09:00 | WPDINTPN ---
Progress Note: A&P Assessment and Plan (1) Acute and chronic respiratory failure: Qualifiers: Respiratory failure complication: hypercapnia Qualified Code(s): J96.22 - Acute and chronic respiratory failure with hypercapnia Code(s): J96.20 - Acute and chronic respiratory failure, unspecified whether with hypoxia or hypercapnia Status: Acute Assessment and Plan: patient with acute on chronic hypercapnic respiratory failure likely related to COPD exacerbation. patient appears to have severe COPD at baseline - ABG and chest x-ray reviewed -while patient was intubated, I tried several different modes to optimize patient mechanical ventilation. ASV or spontaneous patient's respiratory rate is is very low triggering low minute ventilation. once patient is off sedation she is agitated tachypneic with high RSBI -until 03/16 she failed daily weaning trial due to high RSBI if not on sedation and low minute ventilation if calmed with adequate sedative -03/16 - 02/20 PSV SBT done for more than 0.5 hour. RSBI, ABGI and Vitals was acceptable. Pt was awake and following commands. She still was using some accessory muscle and was on some sedation to keep her. Patient has severe COPD and I felt that was the best she was going to get when it comes to ready to wean. Patient was extubated and has done well and saturating well on nasal cannula with no respiratory distress at this time. -will use Bipap PRN -may still get worsen and need re-intubation. - patient has history of severe emphysema, left upper lobectomy in 2013 due to spontaneous pneumothorax. - cultures have been negative -patient has received more than 7 days of antibiotics hence will discontinue at this time since call cultures were negative - continue Solu-Medrol daily - continue bronchodilators, (2) COPD exacerbation: Code(s): J44.1 - Chronic obstructive pulmonary disease with (acute) exacerbation Status: Acute Assessment and Plan: patient with history of COPD on 3-4 L of oxygen at home, follows with Dr. Suggs - pulmonology following - continue bronchodilators - continue Solu-Medrol (3) Alcohol abuse, daily use: Code(s): F10.10 - Alcohol abuse, uncomplicated Status: Chronic Assessment and Plan: patient with alcohol abuse currently sedated - continue thiamine, folic acid - monitor for alcohol withdrawal (4) ST elevation on ECG: Code(s): R94.31 - Abnormal electrocardiogram [ECG] [EKG] Status: Acute Assessment and Plan: ST-elevation on EKG, troponin x3 were negative - appreciate Cardiology evaluation recommendation, continue current management ECHO Summary 1. Left ventricular systolic function is normal, estimated at 60-65%. 2. Right ventricular chamber dimension is normal. 3. No valvular abnormalities. 4. Pericardium has a thickened nodular appearance. (5) Tobacco abuse: Code(s): Z72.0 - Tobacco use Status: Chronic Assessment and Plan: patient continues to smoke half a packet a day - will employment counselor on cessation of smoking when she is extubated (6) Accident due to mechanical fall without injury: Qualifiers: Encounter type: initial encounter Qualified Code(s): W19.XXXA - Unspecified fall, initial encounter Code(s): W19.XXXA - Unspecified fall, initial encounter Status: Acute Assessment and Plan: patient had a mechanical fall, CT scan of the head did not show any acute injuries, cervical, lumbar spine showed mild spondylolysis - continue with pain control (7) Suspected 2019 novel coronavirus infection: Code(s): Z20.828 - Contact with and (suspected) exposure to other viral communicable diseases Status: Ruled-out Assessment and Plan: patient with acute respiratory failure, ST changes on EKG - SARS-CoV-2 PCR is negative - patient taken off airborne, droplet, contact isolation (8) Shock: Cod
[2020-03-17] MEDS: PANTOPRAZOLE SODIUM IV 40 MG VIAL IV PUSH (09:45)
[2020-03-17] MEDS: ESCITALOPRAM OXALATE 10 MG TABLET PO (09:45)
[2020-03-17] MEDS: ENOXAPARIN 40 MG/0.4 ML SYRINGE SUB-Q (09:45)
[2020-03-17] MEDS: THIAMINE HCL 200 MG/2 ML VIAL 100 MG IV PUSH (09:45)
[2020-03-17] MEDS: methylPREDNISolone SOD SUCC 40 MG VIAL IV PUSH (09:46)
[2020-03-17] MEDS: FOLIC ACID 1 MG/0.2 ML INJ IV PUSH (09:52)
[2020-03-17] MEDS: ASPIRIN 325 MG TABLET PO (09:52)
[2020-03-17 12:18] LABS: Glucose Point of Care 103 (65-105)
--- NOTE | 2020-03-17 12:23 | PM.IMPN ---
Progress Note: A&P Assessment and Plan (1) Acute on chronic respiratory failure with hypoxia and hypercapnia: Code(s): J96.21 - Acute and chronic respiratory failure with hypoxia; J96.22 - Acute and chronic respiratory failure with hypercapnia Status: Acute Assessment and Plan: Patient started on BiPAP from the ER but with significantly elevated pCO2 and decreased mentation ultimately requiring intubation on 03/08/2020. Able to be extubated 03/16/20. Currently on IV Zosyn D#10 and vancomycin stopped on 03/12/20 after 4 days. Blood Cx and UCx negative. CXR showing persistent small PTX. Appears to be tolerating this well. No plans for chest tube. Continue IV steroids. Albuterol changed to prn due to the tachycardia. Zosyn stopped today. Appreciate pulm input. (2) Pneumothorax on left: Code(s): J93.9 - Pneumothorax, unspecified Status: Acute Assessment and Plan: Patient has hx of left spontaneous PTX x2 August 2012. These were recurrent on the left and she had a subsequent VATS procedure and apical blebectomy as well as pleurodesis. 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 Continue to follow. (3) COPD exacerbation: Code(s): J44.1 - Chronic obstructive pulmonary disease with (acute) exacerbation Status: Acute Assessment and Plan: Weaned off mechanical ventilation and back on O2 NC. Continue IV steroids, albuterol HFA. Spiriva on hold. As above. (4) Shock: Code(s): R57.9 - Shock, unspecified Status: Acute Assessment and Plan: Patient developed shock. She required Dopamine then changed to Levophed. Off Levophed since 03/10/20. Cultures negative. Remains on IV Zosyn as noted above. BP dropped 77/58 from propofol. BP better off of sedation. Will continue to monitor. (5) Atrial fibrillation: Qualifiers: Atrial fibrillation type: unspecified Qualified Code(s): I48.91 - Unspecified atrial fibrillation Code(s): I48.91 - Unspecified atrial fibrillation Status: Acute Assessment and Plan: Patient without hx of AFib listed but was on Eliquis on admission. May have pAFib. Unclear but may have had episode of AFib here. No documentation by port purser assessment of AFib. Continue tele for now. Clarify why she is on Eliquis. (6) Encephalopathy: Code(s): G93.40 - Encephalopathy, unspecified Status: Acute Assessment and Plan: Head CT and cervical and lumbar spine CT normal earlier on the day of admission. Mental status changes felt related to hypercapnia and hypoxia. Precedex weaned off. Patietn now more alert and oriented. (7) ST elevation on ECG: Code(s): R94.31 - Abnormal electrocardiogram [ECG] [EKG] Status: Acute Assessment and Plan: Patient with noted diffuse ST changes. Trop negative x 3. Echo EF 65% with no wall motion abnormalities. Cardiology was consulted but not felt patient had STEMI. Appreciate input from Cardiology today. No plan for ischemia workup at this time. (8) Alcohol abuse, daily use: Code(s): F10.10 - Alcohol abuse, uncomplicated Status: Chronic Assessment and Plan: Patient initially on Precedex drip that was discontinued after blood pressure dropped. Precedex was resumed but able to be weaned off. Patient tachycardic today. Does have alprazolam as needed. Continue IV thiamine and folic acid. Continue to monitor for worsening evidence of withdrawal. (9) Accident due to mechanical fall without injury: Qualifiers: Encounter type: initial encounter Qualified Code(s): W19.XXXA - Unspecified fall, initial encounter Code(s): W19.XXXA - Unspecified fall, initial encounter Status: Acute Assessment and Plan: Patient did have a fall and was seen earlier on the day of admission here in ER. CT brain negative. CT cervical spine with mild cervical spondylosis
--- NOTE | 2020-03-17 12:33 | PM.PNPUL ---
Progress Note: A&P Assessment and Plan (1) COPD exacerbation: Code(s): J44.1 - Chronic obstructive pulmonary disease with (acute) exacerbation Status: Acute (2) Acute on chronic respiratory failure with hypoxia and hypercapnia: Code(s): J96.21 - Acute and chronic respiratory failure with hypoxia; J96.22 - Acute and chronic respiratory failure with hypercapnia Status: Acute Assessment and Plan: Extubated and doing well so far. Has not required BIPAP so far. continue bronchodilators incluidng Albuterol/Ipratropium. Consider adding Pulmicort 0.5 mg Nebulized BID as systemic steroids are being weaned off. Considering discontinuing antibiotics Consider discontinuing systemic steroids PT/OT and early mobility Will change Albuterol to 2.5 mg Q6h PRN due to persistent tachycardia. Subjective Date/time seen: 03/17/20 12:33 Interval history: Doing well on nasal cannula, not requiring NIPPV. tachycardia persists. Patient is tremulous Review of Systems Review of Systems: All systems reviewed & are unremarkable except as noted in HPI and below Exam Const: General: comfortable and no acute distress HENMT: Mouth: Yes moist mucous membranes Neck: Neck: supple and no JVD Resp: Auscultation: no crackles, no rales, no rhonchi and diminished lung sounds Cardio: Rate: regular rate Rhythm: regular rhythm Heart sounds: no murmurs GI: Auscultation: normal bowel sounds Neuro: Other: sedated Extrem: General: normal to inspection and no edema Objective Data Vital Signs Vital Signs: Vital Signs - 24 hr 03/16/20 13:27 03/16/20 13:34 03/16/20 14:00 Temperature Pulse Rate 101 H 94 99 Respiratory Rate 18 18 20 Blood Pressure 98/59 L Pulse Oximetry 99 90 03/16/20 16:00 03/16/20 16:55 03/16/20 18:00 Temperature 37.3 C 37.3 C Pulse Rate 102 H 74 Respiratory Rate 24 H 24 H Blood Pressure 120/69 104/61 Pulse Oximetry 92 92 92 03/16/20 20:00 03/16/20 20:01 03/16/20 20:12 Temperature 37.4 C 37.1 C Pulse Rate 84 84 85 Respiratory Rate 18 17 Blood Pressure 94/64 L 102/63 Pulse Oximetry 100 100 03/16/20 20:31 03/16/20 20:46 03/16/20 20:53 Temperature 37.2 C Pulse Rate 95 77 Respiratory Rate 26 H 18 Blood Pressure 96/77 L Pulse Oximetry 98 96 03/16/20 20:54 03/16/20 21:31 03/16/20 21:51 Temperature 37.3 C 37.4 C Pulse Rate 81 86 77 Respiratory Rate 18 19 22 H Blood Pressure 103/62 106/58 L Pulse Oximetry 99 96 03/16/20 22:00 03/16/20 22:01 03/17/20 00:00 Temperature 37.4 C Pulse Rate 77 76 70 Respiratory Rate 27 H Blood Pressure 102/64 Pulse Oximetry 95 03/17/20 00:01 03/17/20 00:50 03/17/20 01:54 Temperature 37.2 C Pulse Rate 74 Respiratory Rate 21 H Blood Pressure 105/65 Pulse Oximetry 96 87 L 96 03/17/20 02:00 03/17/20 02:01 03/17/20 02:53 Temperature 37.3 C Pulse Rate 67 67 78 Respiratory Rate 29 H 17 Blood Pressure 97/60 L Pulse Oximetry 92 03/17/20 03:00 03/17/20 03:01 03/17/20 04:00 Temperature 37.4 C 37.4 C Pulse Rate 70 68 69 Respiratory Rate 20 25 H Blood Pressure 107/65 113/66 Pulse Oximetry 100 100 03/17/20 04:01 03/17/20 06:00 03/17/20 06:01 Temperature 37.2 C 37.3 C 37.4 C Pulse Rate 77 94 96 Respiratory Rate 18 31 H 27 H Blood Pressure 108/74 96/58 L 88/56 L Pulse Oximetry 95 94 94 03/17/20 08:00 03/17/20 08:05 03/17/20 08:31 Temperature 37.2 C Pulse Rate 93 87 87 Respiratory Rate 23 H 18 18 Blood Pressure 98/64 L Pulse Oximetry 93 93 03/17/20 10:00 Temperature Pulse Rate 118 H Respiratory Rate 22 H Blood Pressure 99/61 L Pulse Oximetry 96 Intake/Output Intake/Output: Intake & Output 03/14/20 03/15/20 03/16/20 03/17/20 23:59 23:59 23:59 23:59 Intake Total 1905 2109 1574 414 Output Total 3425 4300 4550 1950 [facility]1520 -[phone] -[phone] -1536 Meds/Results Medications: Active Medications Generic Name Dose Route Start Last Admin Trad
--- NOTE | 2020-03-17 12:45 | PCDIET ---
Patient heart rate noted to be 120's sustained. Dr. Guzman notified, and is aware. No orders at this time. Will continue to monitor closely.
[2020-03-17 16:27] LABS: Glucose Point of Care 78 (65-105)
[2020-03-17] MEDS: FERROUS SULFATE 324 MG TABLET PO (17:43)
--- NOTE | 2020-03-17 19:39 | PC.NURSE ---
This patient, Esther Brink, was transferred to [[id number] ] on 03/17/20 at 1915. Personal belongings sent with patient. Belongings list checked and signed with receiving [ ]. Report given to [RAHUL Brand ]. Appropriate documentation sent with patient.
[2020-03-17 20:37] LABS: Glucose Point of Care 125 (65-105)
[2020-03-18] VITALS (27 sets, daily range): BP systolic 93–126; BP diastolic 60–69; PULSE 79–105; RESP 16–24; TEMP 35.8–36.6; O2SAT 84–100
[2020-03-18] MEDS: ALBUTEROL SULFATE NEB 2.5 MG/0.5 ML INH INHALATION ×2 (00:38→20:42)
[2020-03-18] MEDS: IPRATROPIUM BR 0.02% INH SOLN 0.5 MG/2.5 ML VIAL INHALATION ×4 (02:20→20:42)
[2020-03-18 04:18] LABS: Hematocrit 34.3 % (37.0-47.0); Hemoglobin 10.7 g/dL (12.0-15.0); Mean Corpuscular HGB Conc 31.2 g/dl (32-36); Mean Corpuscular Hemoglobin 30.3 pg (26-34); Mean Corpuscular Volume 97.2 fl (80-100); Mean Platelet Volume 8.3 fl (7.4-10.4); Platelet Count Result 508 k/mm3 (150-375); Red Blood Count 3.53 M/mm3 (4.2-5.4); Red Cell Distribution Width 12.5 % (11.5-14.5)
[2020-03-18 04:31] LABS: Albumin Level 3.7 g/dL (3.5-5.1); Blood Urea Nitrogen 10 mg/dL (7-17); Calcium 8.3 mg/dL (8.4-10.2); Carbon Dioxide 37 mmol/L (22-30); Chloride 96 mmol/L (98-107); Estimated CRCL calculation 97 ml/min; Estimated Glomerular Filt Rate > 60; Glucose 142 mg/dL (65-105); Magnesium 2.3 mg/dL (1.6-2.3); Phosphorus 3.1 mg/dL (2.5-4.5); Sodium 136 mmol/L (137-145)
[2020-03-18] MEDS: ALPRAZOLAM 0.5 MG TABLET PO ×3 (04:48→21:48)
[2020-03-18] MEDS: ACETAMINOPHEN 500 MG TABLET PO ×3 (04:48→21:47)
[2020-03-18 08:31] LABS: Glucose Point of Care 74 (65-105)
[2020-03-18] MEDS: LIDOCAINE 5% PATCH 1 PATCH TRANSDERM (09:10)
[2020-03-18] MEDS: POTASSIUM CHLORIDE 20 MEQ TABLET 40 MEQ PO (09:10)
[2020-03-18] MEDS: FERROUS SULFATE 324 MG TABLET PO ×2 (09:11→17:05)
[2020-03-18] MEDS: CYANOCOBALAMIN 1,000 MCG TABLET 1000 MCG PO (09:11)
[2020-03-18] MEDS: ASPIRIN 325 MG TABLET PO (09:12)
[2020-03-18] MEDS: ENOXAPARIN 40 MG/0.4 ML SYRINGE SUB-Q (09:13)
[2020-03-18] MEDS: methylPREDNISolone SOD SUCC 40 MG VIAL IV PUSH (09:13)
[2020-03-18] MEDS: THIAMINE HCL 200 MG/2 ML VIAL 100 MG IV PUSH (09:14)
[2020-03-18] MEDS: ESCITALOPRAM OXALATE 10 MG TABLET PO (09:14)
[2020-03-18] MEDS: PANTOPRAZOLE SODIUM IV 40 MG VIAL IV PUSH (09:14)
[2020-03-18] MEDS: LORAZEPAM INJ 2 MG/ML VIAL 0.5 MG IV PUSH (09:33)
[2020-03-18] MEDS: FOLIC ACID 1 MG/0.2 ML INJ IV PUSH (10:33)
--- NOTE | 2020-03-18 11:26 | PM.IMPN ---
Progress Note: A&P Assessment and Plan (1) Acute on chronic respiratory failure with hypoxia and hypercapnia: Code(s): J96.21 - Acute and chronic respiratory failure with hypoxia; J96.22 - Acute and chronic respiratory failure with hypercapnia Status: Acute Assessment and Plan: Patient started on BiPAP from the ER but with significantly elevated pCO2 and decreased mentation ultimately requiring intubation on 03/08/2020. Able to be extubated 03/16/20. COmpleted IV Zosyn D#10 and vancomycin stopped on 03/12/20 after 4 days. Blood Cx and UCx negative. CXR showing worsening airspace disease possibly pulmonary edema. Will give one dose of Lasix and repeat CXR in the morning. (2) Pneumothorax on left: Code(s): J93.9 - Pneumothorax, unspecified Status: Acute Assessment and Plan: Patient has hx of left spontaneous PTX x2 August 2012. These were recurrent on the left and she had a subsequent VATS procedure and apical blebectomy as well as pleurodesis. 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 Continue to follow. (3) COPD exacerbation: Code(s): J44.1 - Chronic obstructive pulmonary disease with (acute) exacerbation Status: Acute Assessment and Plan: Weaned off mechanical ventilation and back on O2 NC. Appreciate pulmonary input. Will start Pulmicort Respules. Change to oral steroids. Home O2 evaluation to determine oxygen requirements. (4) Shock: Code(s): R57.9 - Shock, unspecified Status: Acute Assessment and Plan: Patient developed shock. She required Dopamine then changed to Levophed. Off Levophed since 03/10/20. Cultures negative. BP dropped 77/58 from propofol. BP remaining stable. (5) Atrial fibrillation: Qualifiers: Atrial fibrillation type: unspecified Qualified Code(s): I48.91 - Unspecified atrial fibrillation Code(s): I48.91 - Unspecified atrial fibrillation Status: Acute Assessment and Plan: Patient without hx of AFib listed but was on Eliquis on admission. May have pAFib. Unclear but may have had episode of AFib here. No documentation by investigations director assessment of AFib. Continue tele for now. (6) Encephalopathy: Code(s): G93.40 - Encephalopathy, unspecified Status: Acute Assessment and Plan: Head CT and cervical and lumbar spine CT normal earlier on the day of admission. Mental status changes felt related to hypercapnia and hypoxia. Precedex weaned off . Symptoms have resolved. (7) ST elevation on ECG: Code(s): R94.31 - Abnormal electrocardiogram [ECG] [EKG] Status: Acute Assessment and Plan: Patient with noted diffuse ST changes. Trop negative x 3. Echo EF 65% with no wall motion abnormalities. Cardiology was consulted but not felt patient had STEMI. Appreciate input from Cardiology today. No plan for ischemia workup at this time. (8) Alcohol abuse, daily use: Code(s): F10.10 - Alcohol abuse, uncomplicated Status: Chronic Assessment and Plan: Patient initially on Precedex drip that was discontinued after blood pressure dropped. Precedex was resumed but able to be weaned off. Stable. Continue thiamine and folate. (9) Accident due to mechanical fall without injury: Qualifiers: Encounter type: initial encounter Qualified Code(s): W19.XXXA - Unspecified fall, initial encounter Code(s): W19.XXXA - Unspecified fall, initial encounter Status: Acute Assessment and Plan: Patient did have a fall and was seen earlier on the day of admission here in ER. CT brain negative. CT cervical spine with mild cervical spondylosis but no acute findings. Lumbar x-ray with no acute osseous abnormality. Workup was negative for any acute abnormalities and was discharged home. Continue PT and OT. (10) Anorexia: Code(s): R63.0 - Anorexia Status: Acute Assessmen
[2020-03-18 12:10] LABS: Glucose Point of Care 146 (65-105)
[2020-03-18] MEDS: FUROSEMIDE INJ 40 MG/4 ML VIAL 20 MG IV PUSH (13:04)
--- NOTE | 2020-03-18 13:18 | PCRCNOTE ---
Addendum entered by Janneth Ponce, SENIOR TECHNICAL ANALYST 03/18/20 13:28: PT. ALREADY HAS HOME OXYGEN SET UP WITH [facility]. Original Note: HOME O2 EVALUATION COMPLETE; PT. REQUIRES 1LITER OF OXYGEN CONTINUOUSLY. GREEN CARD PLACED ON PT.'S CHART. R.N. AND DR. CALIXTO NOTIFIED OF THE RESULTS.
--- NOTE | 2020-03-18 14:19 | PM.PNPUL ---
Progress Note: A&P Assessment and Plan (1) COPD exacerbation: Code(s): J44.1 - Chronic obstructive pulmonary disease with (acute) exacerbation Status: Acute (2) Acute on chronic respiratory failure with hypoxia and hypercapnia: Code(s): J96.21 - Acute and chronic respiratory failure with hypoxia; J96.22 - Acute and chronic respiratory failure with hypercapnia Status: Acute Assessment and Plan: Extubated and doing well so far. Has not required BIPAP so far. continue bronchodilators incluidng Albuterol/Ipratropium. Consider adding Pulmicort 0.5 mg Nebulized BID as systemic steroids are being weaned off. Considering discontinuing antibiotics Consider discontinuing systemic steroids PT/OT and early mobility Will change Albuterol to 2.5 mg Q6h PRN due to persistent tachycardia. Time Spent With Patient Time with patient: 15 - 25 minutes Subjective Date/time seen: 03/18/20 14:20 Interval history: Feeling much better, tolerating oral diet, anxious go home. Less tachcardia today and less tremulousness. Exam Narrative: Exam Narrative: Cachectic Const: General: comfortable and no acute distress HENMT: Mouth: Yes moist mucous membranes Eyes: General: appearance normal, both eyes and all related structures Neck: Neck: supple and no JVD Resp: Auscultation: no rales, no rhonchi, no wheezes and diminished lung sounds Cardio: Rate: regular rate Rhythm: regular rhythm Heart sounds: no murmurs GI: Inspection: distended Auscultation: normal bowel sounds Skin: General skin exam: normal color and no rashes or lesions noted Neuro: Cognition (Neuro): normal cognition Speech: normal speech Extrem: General: normal to inspection, no edema and no pedal edema Psych: Mental Status: mental status grossly normal Affect: normal affect Objective Data Vital Signs Vital Signs: Vital Signs - 24 hr 03/17/20 16:00 03/17/20 18:00 03/17/20 19:53 Temperature 36.8 C 37.1 C Pulse Rate 112 H 112 H 105 H Pulse Rate [Bilateral Pedal (Dorsalis Pedis) Palpation] 110 H Respiratory Rate 18 23 H 20 Blood Pressure 105/59 L 114/62 100/66 Pulse Oximetry 96 99 99 03/17/20 20:00 03/17/20 20:58 03/17/20 21:06 Temperature Pulse Rate 105 H 107 H 104 H Pulse Rate [Bilateral Pedal (Dorsalis Pedis) Palpation] Respiratory Rate 20 18 18 Blood Pressure Pulse Oximetry 99 93 03/17/20 22:00 03/17/20 23:47 03/18/20 00:00 Temperature 36.9 C Pulse Rate 106 H 102 H 102 H Pulse Rate [Bilateral Pedal (Dorsalis Pedis) Palpation] Respiratory Rate 16 16 Blood Pressure 106/50 L Pulse Oximetry 97 97 03/18/20 00:39 03/18/20 00:45 03/18/20 02:00 Temperature Pulse Rate 98 98 91 Pulse Rate [Bilateral Pedal (Dorsalis Pedis) Palpation] Respiratory Rate 18 18 Blood Pressure Pulse Oximetry 03/18/20 02:20 03/18/20 02:27 03/18/20 03:43 Temperature 36.0 C L Pulse Rate 91 94 100 Pulse Rate [Bilateral Pedal (Dorsalis Pedis) Palpation] Respiratory Rate 18 18 20 Blood Pressure 107/60 Pulse Oximetry 98 03/18/20 04:00 03/18/20 06:00 03/18/20 08:00 Temperature 36.2 C L Pulse Rate 100 87 80 Pulse Rate [Bilateral Pedal (Dorsalis Pedis) Palpation] Respiratory Rate 20 20 Blood Pressure 97/67 L Pulse Oximetry 98 99 03/18/20 09:02 03/18/20 09:12 03/18/20 10:00 Temperature Pulse Rate 93 88 92 Pulse Rate [Bilateral Pedal (Dorsalis Pedis) Palpation] Respiratory Rate 20 20 Blood Pressure Pulse Oximetry 94 03/18/20 12:00 03/18/20 12:35 03/18/20 12:38 Temperature 36.2 C L Pulse Rate 99 100 102 H Pulse Rate [Bilateral Pedal (Dorsalis Pedis) Palpation] Respiratory Rate 24 H Blood Pressure 104/64 Pulse Oximetry 98 84 L 93 03/18/20 12:42 03/18/20 12:45 Temperature Pulse Rate 103 H 100 Pulse Rate [Bilateral Pedal (Dorsalis Pedis) Palpation] Respiratory Rate Blood Pressure Pulse Oximetry 90 92 Intake/Output Intake/Output: In
[2020-03-18 16:44] LABS: Glucose Point of Care 84 (65-105)
[2020-03-18] MEDS: BUDESONIDE RESPULE NEB 0.5 MG/2 ML AMP INHALATION (20:49)
[2020-03-18 21:02] LABS: Glucose Point of Care 120 (65-105)
[2020-03-19] VITALS (10 sets, daily range): BP systolic 85–105; BP diastolic 59–63; PULSE 80–99; RESP 18–24; TEMP 36.4–37.2; O2SAT 97–100
[2020-03-19] MEDS: IPRATROPIUM BR 0.02% INH SOLN 0.5 MG/2.5 ML VIAL INHALATION ×2 (02:20→09:06)
[2020-03-19] MEDS: ACETAMINOPHEN 500 MG TABLET PO ×2 (03:35→09:46)
[2020-03-19] MEDS: ALPRAZOLAM 0.5 MG TABLET PO ×2 (03:35→09:51)
[2020-03-19 05:02] LABS: Blood Urea Nitrogen 14 mg/dL (7-17); Calcium 8.6 mg/dL (8.4-10.2); Carbon Dioxide 36 mmol/L (22-30); Chloride 98 mmol/L (98-107); Estimated CRCL calculation 97 ml/min; Estimated Glomerular Filt Rate > 60; Glucose 86 mg/dL (65-105); Potassium 3.3 mmol/L (3.4-5.0); Sodium 135 mmol/L (137-145)
[2020-03-19] MEDS: BUDESONIDE RESPULE NEB 0.5 MG/2 ML AMP INHALATION (09:05)
[2020-03-19] MEDS: ESCITALOPRAM OXALATE 10 MG TABLET PO (09:42)
[2020-03-19] MEDS: FOLIC ACID 1 MG TABLET PO (09:43)
[2020-03-19] MEDS: ASPIRIN 325 MG TABLET PO (09:43)
[2020-03-19] MEDS: ENOXAPARIN 40 MG/0.4 ML SYRINGE SUB-Q (09:43)
[2020-03-19] MEDS: predniSONE 20 MG TABLET PO (09:43)
[2020-03-19] MEDS: FERROUS SULFATE 324 MG TABLET PO (09:44)
[2020-03-19] MEDS: PANTOPRAZOLE SODIUM IV 40 MG VIAL IV PUSH (09:44)
[2020-03-19] MEDS: LIDOCAINE 5% PATCH 1 PATCH TRANSDERM (09:44)
[2020-03-19] MEDS: THIAMINE HCL 100 MG TABLET PO (09:44)
[2020-03-19] MEDS: CYANOCOBALAMIN 1,000 MCG TABLET 1000 MCG PO (09:44)
[2020-03-19] MEDS: POTASSIUM CHLORIDE 20 MEQ TABLET PO (09:53)
--- NOTE | 2020-03-19 11:04 | PCNFU ---
Nutrition Follow-Up Complete: Inadequate oral intake related to oral intubation as evidenced by NPO status. Goal: Patient to meet estimated nutritional needs. Progressing towards goal. We will continue current goal. Pt current nutrition is Regular. Nutrition recommendation:Agree Last recorded weight is 37.6 kg. Bowel Motility:+BM reported 03/17. Labs Reviewed:Cr 0.3,Na 135,K 3.3 Meds Noted:Folic Acid, B12, Xanax Additional Notes: Spoke with patient today, she was eating oatmeal for breakfast. She states to does not want her Ensure pudding supplement.We will continue the Ensure compact BID which will provide an additional 240 kcals and 9 gms protein. Oral intake's have been 5-30% of meals. PO intake is encouraged. Patient was eager to be discharge today. Follow up every 5 days.
--- NOTE | 2020-03-19 13:16 | PM.DS ---
DS: Admitting Diagnosis Admitting Diagnosis Admitting Diagnosis: Acute and chronic respiratory failure with hypoxia DS: Discharge Diagnosis Discharge Diagnosis (1) Acute on chronic respiratory failure with hypoxia and hypercapnia: Code(s): J96.21 - Acute and chronic respiratory failure with hypoxia; J96.22 - Acute and chronic respiratory failure with hypercapnia Status: Acute Assessment and Plan: Patient started on BiPAP from the ER but with significantly elevated pCO2 and decreased mentation ultimately requiring intubation on 03/08/2020. COVID-19 testing negative 03/09. Isolation discontinued. Able to be extubated 03/16/20. Completed IV Zosyn D#10 and vancomycin stopped on 03/12/20 after 4 days. Blood Cx and UCx negative. CXR showing worsening airspace disease possibly pulmonary edema treated with prn Lasix. CXR repeated and actually may be more consistent with scarring superimposed on severe emphysema. (2) Pneumothorax on left: Code(s): J93.9 - Pneumothorax, unspecified Status: Acute Assessment and Plan: Patient has hx of left spontaneous PTX x2 August 2012. These were recurrent on the left and she had a subsequent VATS procedure and apical blebectomy as well as pleurodesis. 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 (3) COPD exacerbation: Code(s): J44.1 - Chronic obstructive pulmonary disease with (acute) exacerbation Status: Acute Assessment and Plan: Weaned off mechanical ventilation and back on O2 NC. Appreciate pulmonary input. She was treated with Pulmicort Respules. Changed to oral steroids. Already on home O2 up to 4L but we did home O2 evaluation to determine oxygen requirements. She requires 1L only and she was educated about not increasing her O2 unless instructed by a medcial provider. (4) Shock: Code(s): R57.9 - Shock, unspecified Status: Acute Assessment and Plan: Patient developed shock. She required Dopamine then changed to Levophed. She came off Levophed 03/10/20. Cultures negative. BP dropped 77/58 from propofol but resolved once off sedation. BP remained stable. (5) Encephalopathy: Code(s): G93.40 - Encephalopathy, unspecified Status: Acute Assessment and Plan: Head CT and cervical and lumbar spine CT normal earlier on the day of admission. Mental status changes felt related to hypercapnia and hypoxia. Sedation was weaned off and her symptoms improved. Patint on Eliquis on admission. Patient without hx of AFib listed. No evicence of AFib on telemetry. When patient more awake and alert, she was not sure why this was on hoer med list and does not take Eliquis regularly. On chart review, it appears she was on Eliquis after a hip fracture repair surgery for prophylaxis in August. (6) ST elevation on ECG: Code(s): R94.31 - Abnormal electrocardiogram [ECG] [EKG] Status: Acute Assessment and Plan: Patient with noted diffuse ST changes. Trop negative x 3. Echo EF 65% with no wall motion abnormalities. Cardiology was consulted but not felt patient had STEMI. Appreciate input from Cardiology today. No plan for ischemia workup at this time. (7) Alcohol abuse, daily use: Code(s): F10.10 - Alcohol abuse, uncomplicated Status: Chronic Assessment and Plan: Patient initially on Precedex drip that was discontinued after blood pressure dropped. Precedex was resumed but able to be weaned off. She remained stable. We continued her on thiamine and folate. (8) Accident due to mechanical fall without injury: Qualifiers: Encounter type: initial encounter Qualified Code(s): W19.XXXA - Unspecified fall, initial encounter Code(s): W19.XXXA - Unspecified fall, initial encounter Status: Acute Assessment and Plan: Patient did have a fall and was seen earlier on the day of admission here in ER. CT brain negat
[2020-03-19 20:56] LABS: Glucose Point of Care 88 (65-105)
== END 2020-03-19 15:30 | disposition home or self-care (01) | DRG 207 ==
LOC: ANHED 15:33 → ANHIMU 15:37 → ANHICU 18:49 → ANHIMU 03-17 18:36
PROVIDERS: Family Medicine; Internal Medicine; Nurse Practitioner; Admitting Provider Family Medicine; Emergency Provider General Practice; PCP Family Medicine; Visit Provider Internal Medicine
DX: J96.21 Acute and chronic respiratory failure with hypoxia (principal); R57.9 Shock, unspecified; G93.40 Encephalopathy, unspecified; R64 Cachexia; J93.9 Pneumothorax, unspecified; Z68.1 Body mass index [BMI] 19.9 or less, adult; J96.22 Acute and chronic respiratory failure with hypercapnia; Z99.81 Dependence on supplemental oxygen; J43.9 Emphysema, unspecified; Z20.828 Contact with and (suspected) exposure to other viral communicable diseases; R94.31 Abnormal electrocardiogram [ECG] [EKG]; F10.10 Alcohol abuse, uncomplicated; R63.0 Anorexia; D64.9 Anemia, unspecified; I48.91 Unspecified atrial fibrillation; E87.6 Hypokalemia; J45.909 Unspecified asthma, uncomplicated; F17.210 Nicotine dependence, cigarettes, uncomplicated; M47.892 Other spondylosis, cervical region; M47.814 Spondylosis without myelopathy or radiculopathy, thoracic region; M47.896 Other spondylosis, lumbar region; K21.9 Gastro-esophageal reflux disease without esophagitis; F41.1 Generalized anxiety disorder; F41.0 Panic disorder [episodic paroxysmal anxiety]; S51.811A Laceration without foreign body of right forearm, initial encounter; M54.5 Low back pain; W01.0XXA Fall on same level from slipping, tripping and stumbling without subsequent striking against object, initial encounter; Z71.3 Dietary counseling and surveillance; Z79.01 Long term (current) use of anticoagulants; Z79.52 Long term (current) use of systemic steroids; Z90.2 Acquired absence of lung [part of]
CPT/HCPCS: 31500; 36415; 36600; 70450; 71045; 71275; 72072; 72100; 72125; 72131; 80048; 80053; 80069; 80202; 81001; 82375; 82607; 82728; 82746; 82805; 83050; 83540; 83550; 83605; 83735; 84100; 84439; 84443; 84484; 85025; 85027; 85380; 85610; 85730; 86140; 87040; 87086; 87635; 92610; 93005; 93306; 94002; 94003; 94618; 94640; 94660; 96374; 96375; 97110; 97116; 97161; 97165; 97530; 99291; A9270; C1751; C9113; C9803; J0131; J1170; J1265; J1650; J1940; J2060; J2250; J2405; J2543; J2704; J2920; J2930; J3010; J3370; J3411; J3420; J3475; J3480; J7030; J7040; J7512; Q9967; U0003

== ENCOUNTER 2020-07-02 06:28 | Inpatient (IN) | payer MEDICARE, MEDICAID, SELFPAY ==
[2020-07-02] VITALS (33 sets, daily range): BP systolic 80–169; BP diastolic 63–117; PULSE 83–121; RESP 12–36; TEMP 36.4–37.1; O2SAT 92–100; BMI 17.5
--- NOTE | 2020-07-02 | ECHO_ITS ---
Patient Info Name: Esther Brink Age: 54 years : 1965 Gender: Female Ht: 60 in Wt: 89 lbs BSA: 1.30 m2 HR: 96 bpm BP: 122 / 64 mmHg Heart Rhythm: Sinus Rhythm Technical Quality: Good Exam Date: 07/02/2020 9:56 AM Exam Location: [facility] Patient Status: Inpatient Admit Date: 07/02/2020 Staff Ordering Physician: Dutch Contreras MD Professor Of Kinesiology: Camilo Brar TIP Attending Provider: Deepak Street MD Exam Type: CA echo doppler color flow Study Info Indications R06.02 - Shortness of breath Complete two-dimensional, color flow and Doppler transthoracic echocardiogram is performed. Strain analysis performed. History/Risk Factors Shortness of breath. Summary 1. Complete two-dimensional, color flow and Doppler transthoracic echocardiogram is performed. 2. Left ventricular chamber dimension is normal. 3. Left ventricular systolic function is normal, estimated at 65-70%. 4. There is mild aortic valve sclerosis. 5. The IVC is dilated. Left Ventricle Left ventricular chamber dimension is normal. Left ventricular systolic function is normal, estimated at 65-70%. The left ventricular diastolic function is grade I diastolic dysfunction. Right Ventricle Right ventricular chamber dimension is normal. Left Atria Left atrial chamber dimension is normal. Right Atria Right atrial chamber dimension is normal. Aortic Valve The aortic valve is trileaflet. There is mild aortic valve sclerosis. Pulmonic Valve The pulmonic valve is normal. Mitral Valve The mitral valve has normal leaflets. Tricuspid Valve The tricuspid valve leaflets are normal. There is trace tricuspid valve regurgitation. Pericardium/Pleural The pericardium appears normal. Inferior Vena Cava The IVC is dilated. Aorta The aortic root size at the sinus of Valsalva is normal. Left Ventricular Outflow Tract Name Value Normal LVOT 2D LVOT Diameter 1.7 cm LVOT Doppler LVOT Peak Gradient 5 mmHg LVOT Mean Gradient 3 mmHg LVOT VTI 21 cm LVOT VTI/AV VTI Ratio 0.8 LVOT Stroke Volume 48 ml LVOT CO 4.5 l/min LVOT CI 3.4 l/min/m2 Mitral Valve Name Value Normal MV Doppler MV Decel [place] 291 cm/s2 MV PHT 52 ms MV Area (PHT) 4.2 cm2 4.0-5.0 MV Diastolic Function MV E Peak Velocity 52 cm/s MV A Peak Velocity 83 cm/s MV E/A 0.6 MV Decel Time
--- NOTE | ~2020-07-02 | XR_ITS ---
EXAMINATION: XR chest 1V portable EXAM DATE: 07/04/2020 05:54 INDICATION: Acute on chronic respiratory failure. TECHNIQUE: Portable AP frontal chest x-ray was obtained. Comparison is made to prior examination from 07/03/2020. FINDINGS: Endotracheal tube tip is about 4 centimeters above the mario (ideal range is between 2 to 5 cm). Feeding tube is in position. There is chronic hyperinflation. Suture material overlying both lungs, probably from partial pneumone ctomies. Small regions of airspace disease probably atelectasis or scarring and/or infection. Probabl e left basilar bullous disease. There is no pneumothorax suspected. The cardiomediastinal silhouett e is prominent but magnified on this AP technique. The bones and soft tissues are unremarkable. Th ere is no significant interval change compared to prior exam. IMPRESSION: 1. Tubes in position. 2. Small regions of atelectasis, scarring and/or infection. 3. Chronic hyperinflation. Reviewed, dictated and finalized at location A.
--- NOTE | ~2020-07-02 | XR_ITS ---
EXAMINATION: XR chest 1V portable EXAM DATE: 07/03/2020 05:52 INDICATION: Acute on chronic respiratory failure. TECHNIQUE: Portable AP frontal chest x-ray was obtained. Comparison is made to prior examination from 07/02/2020. FINDINGS: Endotracheal tube tip is 4 centimeters above the mario (ideal range is between 2 to 5 cm). Feeding tube is in position. There is chronic hyperinflation. Bilateral pleural blunting, possible small pleural effusions versus chronic. Suture material overlying both lungs, probably from partial pneumonectomies. Small regions o f airspace disease probably atelectasis or scarring and/or infection. There is no pneumothorax susp ected. The cardiomediastinal silhouette is prominent but magnified on this AP technique. The bone s and soft tissues are unremarkable. There is no significant interval change compared to prior exam. IMPRESSION: 1. Tubes in position. 2. Small regions of atelectasis, scarring and/or infection. 3. Possible small effusions. 4. Chronic hyperinflation. Reviewed, dictated and finalized at location A.
--- NOTE | ~2020-07-02 | XR_ITS ---
XR abdomen NG/feed tube insert INDICATION: Evaluate NG tube position. TECHNIQUE: Limited KUB perform for evaluating NG tube . COMPARISON: 03/08/2020 FINDINGS: NG tube tip in the stomach. Visualized bowel gas pattern is unremarkable.Small pleural eff usions. IMPRESSION: 1: NG tube tip in the stomach. Reviewed, dictated and finalized at location B.
--- NOTE | ~2020-07-02 | US_ITS ---
EXAMINATION:US venous doppler LE BI INDICATION:Shortness of breath. Leg swelling. TECHNIQUE: Multiple grayscale, color flow and Doppler images of the right and left lower extremity de ep venous systems were obtained and reviewed. COMPARISON:No prior studies for comparison. FINDINGS: The common femoral, superficial femoral and popliteal veins demonstrate normal respiratory variation, augmentation and compressibility. Color flow is also seen within the posterior tibial, pe roneal, greater saphenous and profunda veins. IMPRESSION: 1: No lower extremity deep venous thrombosis. Reviewed, dictated and finalized at location B.
--- NOTE | ~2020-07-02 | XR_ITS ---
XR chest ET placement DATE: 07/02/2020 07:54 INDICATION: Intubation TECHNIQUE: Portable AP chest on 07/02/2020 at 0750 hours COMPARISON: 03/19/2020 portable AP chest FINDINGS: ET tube in satisfactory position 3.7 cm above mario. Postoperative changes of both lungs. COPD. No active infiltrate or consolidation. No pleural effusion or pulmonary vascular congestion or pneumothorax. Diffuse osteopenia. IMPRESSION: ET tube in satisfactory position Reviewed, dictated and finalized at Location A. Reviewed, dictated and finalized at location A.
--- NOTE | ~2020-07-02 | US_ITS ---
EXAMINATION: US renal BI EXAM DATE: 07/05/2020 10:40 INDICATION: Hyponatremia, concern for urinary retention. TECHNIQUE: Multiple grayscale and Doppler images of the kidneys were obtained (by a technologist who performed the scan) and subsequently reviewed. There is no prior study for comparison. FINDINGS: Right kidney: There is normal contour and mildly increased echogenicity. It measures 11.0 x 5.1 x 4. 2 centimeters. There are no focal renal lesions identified. There is no hydronephrosis. Left kidney: There is normal contour and mildly increased echogenicity. It measures 9.5 x 5.1 x 6.0 centimeters. There are no focal renal lesions identified. There is no hydronephrosis. Bladder unremarkable. IMPRESSION: 1. Mildly hyperechoic renal cortices, medical renal disease. Reviewed, dictated and finalized at location A.
--- NOTE | 2020-07-02 06:41 | ECG_ITS ---
Measurements Intervals [place] Rate: 105 P: -32 AR: 140 QRS: -19 QRSD: 80 T: -26 QT: 321 QTc: 426 Interpretive Statements SINUS TACHYCARDIA PEAKED T WAVES- CONSIDER HYPERKALEMIA OR ISCHEMIA T WAVE ABNORMALTY IN INFERIOR LEEADS- CONSIDER ISCHEMIA BASELINE ARTIFACT- I, II, III, AVF, V1-V3 ABNORMAL ECG Electronically Signed On 07-02-2020 6:48:15 CDT by Quinton Bell D.O.
[2020-07-02 06:55] LABS: Basophils Percent Auto 0.1 % (0.2-1.2); Eosinophils Percent Auto 0.4 % (0-4.4); Hematocrit 44.5 % (37.0-47.0); Hemoglobin 13.6 g/dL (12.0-15.0); Immature Granulocyte Absolute 0.03 K/mm3 (0.00-0.031); Immature Granulocyte Percent A 0.4 % (0-0.5); Lymphocytes Absolute Auto 0.36 K/mm3 (0.9-3.2); Lymphocytes Percent Auto 4.7 % (18.3-44.2); Mean Corpuscular HGB Conc 30.6 g/dl (32-36); Mean Corpuscular Hemoglobin 31.4 pg (26-34); Mean Corpuscular Volume 102.8 fl (80-100); Mean Platelet Volume 8.6 fl (7.4-10.4); Monocytes Absolute Auto 0.4 K/mm3 (0.1-0.6); Monocytes Percent Auto 5.4 % (2.6-8.5); Neutrophils Absolute Auto 6.8 K/mm3 (1.3-6.7); Platelet Count Result 259 k/mm3 (150-375); Red Blood Count 4.33 M/mm3 (4.2-5.4); Red Cell Distribution Width 11.9 % (11.5-14.5); White Blood Count 7.6 K/mm3 (4.5-10.0)
[2020-07-02 06:56] LABS: Base Excess ABG 17.4 mEq/l (+/-2.0); Carboxyhemoglobin 9.1 % THb (0-2.0); Fractional Inspired Oxygen 100 %; HCO3 ABG 54.5 mEq/l (22.0-26.0); Methemoglobin ABG 0.3 %THb (0-1.5); Oxygen Content ABG 18.8 %vol (16.0-22.0); Oxygen Saturation ABG 99.6 % (95.0-100.0); Oxyhemoglobin 89.7 % THb (90.0-100.0); PO2 ABG 400.9 mmHg (80.0-100.0); PO2 FiO2 Ratio Arterial Blood 4.01 %; Reduced Hemoglobin 0.9 %THb (0-5.0); Total Hemoglobin 14.1 g/dL (12.0-18.0)
[2020-07-02 06:58] LABS: PCO2 ABG 175.1 mmHg (35.0-45.0); Site Drawn RIGHT BRACHIAL; pH ABG 7.111 (7.350-7.450)
[2020-07-02 06:59] LABS: Device NON-REBREATHER MASK
[2020-07-02 07:08] LABS: Anion Gap 14.99999 mmol/L (8-16); Blood Urea Nitrogen 14 mg/dL (7-17); Calcium 8.3 mg/dL (8.4-10.2); Carbon Dioxide > 40 mmol/L (22-30); Chloride 78 mmol/L (98-107); Estimated CRCL calculation 152 ml/min; Estimated Glomerular Filt Rate > 60; Glucose 151 mg/dL (65-105); Potassium 4.4 mmol/L (3.4-5.0); Sodium 133 mmol/L (137-145)
--- NOTE | 2020-07-02 07:13 | PC.NURSE ---
assumed care of pt at this time from RAHUL Dennis, pt on BiPap, pt disoriented at this time which per rahul dennis is how the pt arrived from home, normally alert and oriented. pt repeating that she needs to go home and cannot stay at the hospital, melvin nye at bedside assessing pt during report.
[2020-07-02] MEDS: methylPREDNISolone SOD SUCC 125 MG VIAL IV PUSH (07:28)
--- NOTE | 2020-07-02 07:37 | PC.NURSE ---
erp at bedside with respiratory, pt not tolerating bipap well, still disoriented. melvin nye has decided to intubate at this time.
--- NOTE | 2020-07-02 07:38 | PC.NURSE ---
RENÉ SIEGEL AND RESPIRATORY AT BEDSIDE TO INTUBATE. CRASH CART AT BEDSIDE, BVM HOOKED TO O2 AND PREPPED FOR INTUBATION. VERBAL ORDER PER RENÉ SIEGEL FOR: 10MG ETOMIDATE 25 MCG FENTANYL 100 MG SUCCINOCHOLINE MEDS GIVEN AT THIS TIME. 7 MM TUBE USED TO INTUBATE W/ GLIDESCOPE, PLACED 24 @ THE LIP. PT TOLERATED PROCEDURE WELL. VERBAL ORDER FROM RENÉ SIEGEL FOR PROPOFOL FOR SEDATION.
--- NOTE | 2020-07-02 07:45 | ED.SOB ---
HPI - SOB/Dyspnea General Chief Complaint: Shortness of Breath/Dyspnea Stated Complaint: SOB Time Seen by Provider: 07/02/20 07:00 Source: EMS Mode of arrival: EMS Limitations: clinical condition History of Present Illness HPI Narrative: This patient is a 54 year old female with history of COPD, chronic respiratory failure who presents via EMS for respiratory distress. EMS reports they have gone to the patient's house 3 times today. EMS reports her oxygen saturation was 75%. She was placed on BIPAP on arrival . She reports cough and sob. She denies chest pain. Related Data Home Medications Medication Instructions Recorded Confirmed montelukast 10 mg PO DAILY 10/19/19 07/02/20 omeprazole 20 mg PO DAILY 10/19/19 07/02/20 escitalopram oxalate 10 mg PO DAILY 11/15/19 07/02/20 Incruse Ellipta 1 inh INHALATION DAILY 03/07/20 07/02/20 alprazolam 0.5 mg PO QID PRN 03/07/20 07/02/20 folic acid 1 mg PO DAILY 03/07/20 07/02/20 mirtazapine 15 mg PO HS 03/07/20 07/02/20 thiamine HCl (vitamin B1) 100 mg PO DAILY 03/07/20 07/02/20 ergocalciferol (vitamin D2) 50,000 unit PO WEEKLY 03/08/20 07/02/20 fluticasone propionate [Flonase 2 spray INTRANASAL DAILY 03/08/20 07/02/20 Allergy Relief] ipratropium-albuterol 3 ml INHALATION QID 03/08/20 07/02/20 albuterol sulfate 2 puff INHALATION Q4-6H PRN 07/02/20 07/02/20 fluticasone propion-salmeterol 1 inh INHALATION Q12H 07/02/20 07/02/20 [Advair Diskus] Allergies Allergy/AdvReac Type Severity Reaction Status Date / Time clindamycin Allergy Severe anaphylactic Verified 07/02/20 06:48 reaction, rash clarithromycin [From Biaxin] Allergy Hives Verified 07/02/20 06:48 Review of Systems Review of Systems: ROS unobtainable: Yes unobtainable due to medical condition PMFSH Social History Social History Social History: The patient lives with her son. She has smoked as many as 2 packs of cigarettes a day. She apparently drinks 2 or 3 beers a day, but heavier on the weekends. It sounds like the patient has 2 sons. She is a full code. Smoking packs per day: 0.5 Smoking cigarettes per day: 10.0 Years smoked: 35 Smoking pack-years: 17.50 Smoking status: Current every day smoker Tobacco type: cigarettes Second hand tobacco smoke exposure: No Smoking end date: 07/02/20 Alcohol intake: current Drinks per week: 5 Substance use: never Substance use type: does not use Additional living arrangements comments: Lives with her 17-year-old son. Gender identity (if verbalized by the patient): Female Spiritual care concerns: No Agree to blood products: Yes Exam Const: General: ill appearing Nutritional Appearance: thin Other: oriented to person Eyes: EOM: EOMs intact bilaterally Chest: Chest palpation & inspection: normal inspection of the chest Resp: Effort & Inspection: tachypneic Auscultation: no wheezes and diminished lung sounds Cardio: Rate: tachycardic Rhythm: regular rhythm Heart sounds: no murmurs GI: GI Palp: Yes Soft to palpation, No Tenderness to palpation present (GI), No Guarding due to palpation present (GI) and No Rigid due to palpation Neuro: General: moves all extremities Extrem: General: no pedal edema Course Course Emergency Course: Patient presented to ER with sob no chest pain. First EKG show no Acute STEMI. Nursing staff noticed increased in ST elevation on Monitor so repeat EKG performed. On review of previous EKG in system this ST elevation is unchanged. I spoke with Dr. Contreras and Dr. Dent who are biofuels plant operations engineer . This does not appear to be STEMI. Will order stat ECHO and anticoagulate. Consultations Consultation #1: I discussed case with Dr. Conrad. He request IV antibiotics. Date: 07/02/20 Time: 08:39 Vital Signs Vital signs: Vital Signs Temperature 98.2 F 07/02/20 06:30 Pulse Rate 107 H 07/02/20 06:30 Respiratory Rate
[2020-07-02] MEDS: PROPOFOL IV EMULSION 100 ML 1.2 MG (07:47)
[2020-07-02] MEDS: RAPID SEQUENCE INTUBATION KIT 1 EACH (07:47)
[2020-07-02 07:55] LABS: Lactic Acid Reflex 1.9 mmol/L (0.7-2.1)
[2020-07-02] MEDS: ALBUTEROL SULFATE NEB 2.5 MG/0.5 ML INH 10 MG INHALATION (07:56)
[2020-07-02] MEDS: IPRATROPIUM BR 0.02% INH SOLN 0.5 MG/2.5 ML VIAL 1 MG INHALATION (07:56)
[2020-07-02 08:08] LABS: Alanine Aminotransferase 13 U/L (4-35); Albumin Level 3.9 g/dL (3.5-5.1); Alkaline Phosphatase 70 U/L (38-126); Aspartate Amino Transferase 28 U/L (14-36); Bilirubin,Total 0.4 mg/dL (0.2-1.3); CRP 0.5 mg/dL (<1.0); Magnesium 1.9 mg/dL (1.6-2.3)
[2020-07-02 08:30] LABS: Alveolar/Arterial O2 Gradient 75.6 mmHg; Base Excess ABG 20.7 mEq/l (+/-2.0); Fractional Inspired Oxygen 50 %; HCO3 ABG 47.8 mEq/l (22.0-26.0); Oxygen Content ABG 18.2 %vol (16.0-22.0); Oxygen Saturation ABG 99.5 % (95.0-100.0); Oxyhemoglobin 91.7 % THb (90.0-100.0); PO2 ABG 209.9 mmHg (80.0-100.0); Total Hemoglobin 13.8 g/dL (12.0-18.0); pH ABG 7.497 (7.350-7.450)
[2020-07-02 08:32] LABS: Arterial Blood Gas PEEP 5 cmH2O; Arterial Blood Gas Tidal Volume 330 ml; Arterial Blood Gas Vent Mode CMV; Arterial Blood Gas Ventilator rate 20 /MIN; Device VENTILATOR; PCO2 ABG 63.1 mmHg (35.0-45.0); Site Drawn RIGHT BRACHIAL
--- NOTE | 2020-07-02 08:39 | ECG_ITS ---
Measurements Intervals [place] Rate: 102 P: 84 CA: 136 QRS: 48 QRSD: 70 T: 83 QT: 338 QTc: 440 Interpretive Statements SINUS TACHYCARDIA POSSIBLE LEFT ATRIAL ENLARGEMENT ST ELEVATION WITH PEAKED T WAVES IN ANTEROLAT/INF LEADS- CONSIDER ACUTE INFARCT BASELINE ARTIFACT- II, III, AVF, V2 ABNORMAL ECG Electronically Signed On 07-02-2020 8:53:06 CDT by Quinton Bell D.O.
--- NOTE | 2020-07-02 08:40 | PC.NURSE ---
ekg changes noted on school lunch monitor, ekg completed, erp popeye aware.
[2020-07-02] MEDS: LACTATED RINGERS 1,000 ML 999 ML IV CONT (08:48)
--- NOTE | 2020-07-02 09:09 | PC.NURSE ---
Dr Gloria at bedside to evakin pt. Also looking at EKG's
--- NOTE | 2020-07-02 09:31 | PM.CNCAR ---
History of Present Illness History of Present Illness Consult date/time: 07/02/20 09:31 Reason For Visit: acute on chronic respiratory failure with hypoxia, PMFSH Social History Social History (Updated 03/08/20 @ 21:18 by Margaret Alcaraz NP) Social History: The patient lives with her son. She has smoked as many as 2 packs of cigarettes a day. She apparently drinks 2 or 3 beers a day, but heavier on the weekends. It sounds like the patient has 2 sons. She is a full code. Smoking packs per day: 0.5 Smoking cigarettes per day: 10.0 Years smoked: 35 Smoking pack-years: 17.50 Smoking status: Current every day smoker Tobacco type: cigarettes Second hand tobacco smoke exposure: Yes Alcohol intake: current Drinks per week: 5 Substance use: never Substance use type: does not use Additional living arrangements comments: Lives with her 17-year-old son. Gender identity (if verbalized by the patient): Female Spiritual care concerns: No Agree to blood products: Yes Meds Home Medications and Allergies Home Medications Medication Instructions Recorded Confirmed Type montelukast 10 mg PO DAILY 10/19/19 03/08/20 History omeprazole 20 mg PO DAILY 10/19/19 03/08/20 History prednisone 10 mg PO DAILY #30 tablet 10/25/19 03/08/20 Rx escitalopram oxalate 10 mg PO DAILY 11/15/19 03/08/20 History Incruse Ellipta 1 inh INHALATION DAILY 03/07/20 03/08/20 History alprazolam 0.5 mg PO QID PRN 03/07/20 03/08/20 History folic acid 1 mg PO DAILY 03/07/20 03/08/20 History mirtazapine 15 mg PO HS 03/07/20 03/08/20 History thiamine HCl (vitamin B1) 100 mg PO DAILY 03/07/20 03/08/20 History ergocalciferol (vitamin D2) 50,000 unit PO WEEKLY 03/08/20 03/08/20 History fluticasone propionate [Flonase 2 spray INTRANASAL DAILY 03/08/20 03/08/20 History Allergy Relief] ipratropium-albuterol 3 ml INHALATION QID 03/08/20 03/08/20 History cyanocobalamin (vitamin B-12) 1,000 mcg PO QAM #30 tablet 03/19/20 Rx [Vitamin B-12] ferrous sulfate 324 mg PO BIDWM #60 tablet 03/19/20 Rx roflumilast 500 mcg tablet 500 mcg PO DAILY #30 tablet 06/04/20 Rx Allergies Allergy/AdvReac Type Severity Reaction Status Date / Time clindamycin Allergy Severe anaphylactic Verified 07/02/20 06:48 reaction, rash clarithromycin [From Biaxin] Allergy Hives Verified 07/02/20 06:48 Vital Signs Vital Signs - 24 hr 07/02/20 06:30 07/02/20 06:50 07/02/20 06:56 Temperature 36.8 C Pulse Rate 107 H 104 H 102 H Respiratory Rate 36 H 30 H 23 H Blood Pressure 150/84 H 147/78 H Pulse Oximetry 100 100 07/02/20 07:13 07/02/20 07:47 07/02/20 07:48 Temperature Pulse Rate 112 H 98 101 H Respiratory Rate 30 H 14 12 Blood Pressure 137/88 115/77 Pulse Oximetry 92 96 07/02/20 07:50 07/02/20 07:57 07/02/20 08:04 Temperature Pulse Rate 83 106 H 90 Respiratory Rate 20 20 Blood Pressure 129/94 H Pulse Oximetry 100 100 07/02/20 08:23 07/02/20 08:32 07/02/20 08:39 Temperature Pulse Rate 87 104 H 102 H Respiratory Rate 18 20 18 Blood Pressure 80/63 L 97/71 L Pulse Oximetry 100 100 07/02/20 08:52 07/02/20 09:19 Temperature Pulse Rate 103 H 116 H Respiratory Rate 20 20 Blood Pressure 99/86 L 113/82 Pulse Oximetry 98 100 Results Labs and Meds Result diagrams: 07/02/20 06:47 07/02/20 06:47 Lab results: Cardiac Enzymes 07/02/20 Range/Units 06:47 AST 28 (14-36) U/L CBC 07/02/20 Range/Units 06:47 WBC 7.6 (4.5-10.0) K/mm3 RBC 4.33 (4.2-5.4) M/mm3 Hgb 13.6 (12.0-15.0) g/dL Hct 44.5 (37.0-47.0) % Plt Count 259 (150-375) k/mm3 Lymph # (Auto) 0.36 L (0.9-3.2) K/mm3 Rankin # (Auto) 0.4 (0.1-0.6) K/mm3 Eos # (Auto) 0.0 (0-0.3) K/mm3 Baso # (Auto) 0.0 (0.0-0.1) K/mm3 Comprehensive Metabolic Panel 07/02/20 07/02/20 Range/Units 06:47 06:47 Sodium 133 L (137-145) mmol/L Potassium 4.4 (3.4-5.0) mmol/L Ch
[2020-07-02] MEDS: ASPIRIN 300 MG SUPPOSITORY RECTAL (09:37)
--- NOTE | 2020-07-02 09:41 | PC.NURSE ---
COVID SWAB SENT TO LAB AT THIS TIME.
[2020-07-02 09:42] LABS: INR 0.9; Prothrombin Time 11.4 Seconds (11.1-14.7)
[2020-07-02 09:43] LABS: Partial Thromboplastin Time 27.2 SECONDS (22.3-36.8)
[2020-07-02 09:46] LABS: D Dimer 1.39 ug/mL (<0.48)
[2020-07-02 09:46] LABS: Troponin I 0.018 ng/mL (0.000-0.034)
[2020-07-02] MEDS: HEPARIN SODIUM 5,000 UNITS/ML VIAL 2500 UNITS IV PUSH (09:47)
[2020-07-02] MEDS: HEPARIN SOD/D5W 100 UNITS/ML 25,000 UNITS/250 ML BAG IV CONT (09:48)
--- NOTE | 2020-07-02 09:49 | PM.PNCARD ---
Subjective Date/time seen: 07/02/20 09:49 Dr. Dutch Contreras was notified of patient in ED and Dr. Parish Gloria with Dr. Contreras went at 0900 to review patients' EKG which showed dynamic EKG changes with new ST elevation diffusely in the inferior and anterior leads, new compared with presenting EKG, but similar to an EKG in 02/2020. Patiet presented in acute respiratory failure without chest pain and was intubated in ED this admission. STAT echo ordered. Initial trop I and D-dimer pending. Patient begun on ASA and IV heparin. Nurse practioner Nettie with Dr. Issa Ramos notified of patient once it was realized Dr. Ramos had consulted on patient for similar findings in 02/2020. Transfer of care to Dr. Ramos discussed with Nurse practioner Nettie with Dr. Issa Ramos. Objective Data Vital Signs Vital Signs: Vital Signs - 24 hr 07/02/20 06:30 07/02/20 06:50 07/02/20 06:56 Temperature 36.8 C Pulse Rate 107 H 104 H 102 H Respiratory Rate 36 H 30 H 23 H Blood Pressure 150/84 H 147/78 H Pulse Oximetry 100 100 07/02/20 07:13 07/02/20 07:47 07/02/20 07:48 Temperature Pulse Rate 112 H 98 101 H Respiratory Rate 30 H 14 12 Blood Pressure 137/88 115/77 Pulse Oximetry 92 96 07/02/20 07:50 07/02/20 07:57 07/02/20 08:04 Temperature Pulse Rate 83 106 H 90 Respiratory Rate 20 20 Blood Pressure 129/94 H Pulse Oximetry 100 100 07/02/20 08:23 07/02/20 08:32 07/02/20 08:39 Temperature Pulse Rate 87 104 H 102 H Respiratory Rate 18 20 18 Blood Pressure 80/63 L 97/71 L Pulse Oximetry 100 100 07/02/20 08:52 07/02/20 09:19 07/02/20 09:39 Temperature Pulse Rate 103 H 116 H 98 Respiratory Rate 20 20 22 H Blood Pressure 99/86 L 113/82 135/94 H Pulse Oximetry 98 100 100 Intake/Output Intake/Output: Intake & Output 09/11/20 09/12/20 09/13/20 09/14/20 23:59 23:59 23:59 23:59 Intake Total 50 Balance 50 Meds/Results Medications: Active Medications Generic Name Dose Route Start Last Admin Trade Name Freq PRN Reason Stop Dose Admin Heparin Sodium (Porcine) 3,500 units 07/02/20 09:26 Heparin Sodium IV PUSH PRN PRN aPTT less than 55 seconds Heparin Sodium (Porcine) 1,500 units 07/02/20 09:26 Heparin Sodium IV PUSH PRN PRN aPTT 55 - 70 seconds Heparin Sodium/Dextrose 25,000 units in 250 mls @ 5 mls/hr 07/02/20 09:30 Heparin Sodium/D5w 100 Units/Ml IV CONT .Q24H [facility] Protocol 500 UNITS/HR Radiology Results: ITS Impressions Chest X-Ray 07/02/20 07:59 IMPRESSION: ET tube in satisfactory position Labs Labs: Laboratory Results - last 24 hr 07/02/20 07/02/20 07/02/20 06:27 06:47 06:47 WBC 7.6 RBC 4.33 Hgb 13.6 Hct 44.5 MCV 102.8 H MCH 31.4 MCHC 30.6 L RDW 11.9 Plt Count 259 MPV 8.6 Immature Gran % (Auto) 0.4 Neut % (Auto) 89.0 H Lymph % (Auto) 4.7 L [place] % (Auto) 5.4 Eos % (Auto) 0.4 Baso % (Auto) 0.1 L Lymph # (Auto) 0.36 L [place] # (Auto) 0.4 Eos # (Auto) 0.0 Baso # (Auto) 0.0 Abs Immat Gran (auto) 0.03 Absolute Neuts (auto) 6.8 H Absolute Nucleated RBC 0.0 Nucleated RBC % 0.0 PT 11.4 INR 0.9 APTT 27.2 D-Dimer 1.39 H Puncture Site ABG pH ABG pCO2 ABG pO2 ABG PO2/FiO2 Ratio ABG HCO3 ABG O2 Saturation ABG O2 Content ABG Base Excess A-a Gradient Oxyhemoglobin Carboxyhemoglobin Methemoglobin Reduced Hemoglobin Total Hemoglobin O2 Delivery Device O2 Liters/Min Minute Volume Vent Rate Vent Mode FiO2 Tidal Volume PEEP Peak Inspir Pressure Pressure Support Sodium 133 L Potassium 4.4 Chloride 78 L Carbon Dioxide > 40 H Anion Gap 14.79293 BUN 14 Creatinine 0.30 L Estim Creat Clear Calc 152 Estimated GFR > 60 Glucose 151 H Lactic Acid Calcium 8.3 L Magnesium Total Biliru
--- NOTE | 2020-07-02 10:45 | ADMGEN ---
This patient, Esther Brink, was admitted to Intensive Care Unit-5. Patient/family oriented to hospital policies and general routines including ID bracelet, bed and alarms, visiting hours, pain management, procedures, bathroom and other care routines, personal items, smoking policy, room service/diet, and visiting hours. Valuables list has been completed. Information on how to activate the Rapid Response Team has been discussed. Patient/Family are encouraged to report perceived risks to care and to ask questions if they do not understand what they are told or what they should do.
--- NOTE | 2020-07-02 10:59 | WPDCNINT ---
Assessment and Plan Assessment and plan (1) Acute and chronic respiratory failure: Qualifiers: Respiratory failure complication: hypercapnia Qualified Code(s): J96.22 - Acute and chronic respiratory failure with hypercapnia Code(s): J96.20 - Acute and chronic respiratory failure, unspecified whether with hypoxia or hypercapnia Status: Acute Assessment and Plan: patient with history of COPD, on home oxygen 3-4 L presented the ED on 07/02/2020 with increasing shortness of breath, pCO2 levels of 175 in the ED on the ABG, patient was noncompliant with BiPAP and was intubated on 07/02/2020 in the ER - chest x-ray and repeat ABGs reviewed, pCO2 level trending down well, will continue to monitor - started on ceftriaxone and doxycycline, patient received 1 dose of azithromycin in the ED, patient is allergy to clarithromycin - continue bronchodilators - patient on propofol infusion and tolerating well, daily sedation vacation and maintain RASS of 0 to -2 (2) COPD exacerbation: Code(s): J44.1 - Chronic obstructive pulmonary disease with (acute) exacerbation Status: Acute Assessment and Plan: continue mechanical ventilation, steroids, bronchodilators and antibiotics (3) Acute electrocardiogram changes: Code(s): R94.31 - Abnormal electrocardiogram [ECG] [EKG] Status: Acute Assessment and Plan: ST elevation diffusely in the inferior and anterior leads, Similar to EKG in February 2020 - troponin x1 negative, will repeat another set of troponin - Dr Gloria, Evaluated the patient in the ER, started patient on aspirin and heparin infusion. Since the cardiology group ( [facility]) had seen the patient in February, care was transferred to the other cardiology group. echocardiogram on 03/09/2020: showed normal LV systolic function with EF 60-65%, RV chamber dimension is normal, no valvular abnormalities, pericardium has a thickened nodule appearance. (4) Tobacco abuse: Code(s): Z72.0 - Tobacco use Status: Chronic Assessment and Plan: patient with history of tobacco abuse, will counseling psychologist on cessation of tobacco use once patient is extubated (5) Alcohol abuse, daily use: Code(s): F10.10 - Alcohol abuse, uncomplicated Status: Chronic Assessment and Plan: patient also has a history of alcohol abuse - will start thiamine and folic acid - currently sedated, will have to watch for alcohol withdrawal once patient is extubated (6) Suspected 2019 novel coronavirus infection: Code(s): Z20.828 - Contact with and (suspected) exposure to other viral communicable diseases Status: Ruled-out Assessment and Plan: SARS-CoV-2 PCR swab has been obtained in the ER, results pending - placed patient on airborne, droplet, contact isolation and precautions (7) DVT prophylaxis: Code(s): Z29.9 - Encounter for prophylactic measures, unspecified Status: Acute Assessment and Plan: DVT prophylaxis: patient on heparin infusion stress ulcer prophylaxis: Protonix Additional Plan tried to call both the numbers on the chart for family, no answer. Will try again code status: Full code critical care time spent: 44 minutes Due to a high probability of clinically significant, life threatening deterioration, the patient required my highest level of preparedness to intervene emergently and I personally spent this critical care time directly and personally managing the patient. This critical care time included obtaining a history; examining the patient; pulse oximetry; ordering and review of studies; arranging urgent treatment with development of a management plan; evaluation of patient's response to treatment; frequent reassessment; and discussions with other providers. It was exclusive of separately billable procedures and treating other patients and teaching time. Please see Assessment and Plan section and the rest of the note fo
[2020-07-02 12:23] LABS: Troponin I 0.017 ng/mL (0.000-0.034)
[2020-07-02] MEDS: methylPREDNISolone SOD SUCC 40 MG VIAL IV PUSH ×2 (12:46→17:20)
[2020-07-02] MEDS: THIAMINE HCL 200 MG/2 ML VIAL 100 MG IV PUSH (12:46)
[2020-07-02] MEDS: FOLIC ACID 1 MG/0.2 ML INJ IV PUSH (12:46)
[2020-07-02] MEDS: SODIUM CHLORIDE 0.9% IV 1,000 ML 75 ML IV CONT (12:47)
[2020-07-02] MEDS: PANTOPRAZOLE SODIUM IV 40 MG VIAL IV PUSH (12:47)
[2020-07-02] MEDS: ALBUTEROL SULFATE NEB 2.5 MG/0.5 ML INH INHALATION ×2 (14:33→20:07)
[2020-07-02] MEDS: IPRATROPIUM BR 0.02% INH SOLN 0.5 MG/2.5 ML VIAL INHALATION ×2 (14:34→20:07)
--- NOTE | 2020-07-02 14:49 | PM.IMHP ---
H&P: HPI History of Present Illness Date/Time: 07/02/20 14:49 Chief complaint: acute on chronic respiratory failure with hypoxia, Narrative: Date of visit ..Esther Brink is a 54 year old female with COPD 3-4 L nasal cannula O2 who presented to the ER by EMS with increasing shortness of breath. She was conversant but initial ABG revealed pH 7.11 with pCO2 175. She would not leave BiPAP on , was restless and had to be intubated and mechanically ventilated. Hospitalized with respiratory failure and pneumonia at the end of February of this year where she was mechanically ventilated and eventually extubated. There was initially concern about ST elevation inferior and anteriorly on her EKG but review of old records revealed the same findings on her EKG when she was in respiratory distress in February. At that time echocardiogram showed normal ejection fraction with no wall motion abnormalities and no ischemic evaluation was undertaken. Review of Systems Review of Systems: Narrative: unobtainable patient is intubated and sedated [facility] Social History Social History Social History: The patient lives with her son. She has smoked as many as 2 packs of cigarettes a day. She apparently drinks 2 or 3 beers a day, but heavier on the weekends. It sounds like the patient has 2 sons. She is a full code. Smoking packs per day: 0.5 Smoking cigarettes per day: 10.0 Years smoked: 35 Smoking pack-years: 17.50 Smoking status: Current every day smoker Tobacco type: cigarettes Second hand tobacco smoke exposure: No Smoking end date: 07/02/20 Alcohol intake: current Drinks per week: 5 Substance use: never Substance use type: does not use Additional living arrangements comments: Lives with her 17-year-old son. Gender identity (if verbalized by the patient): Female Spiritual care concerns: No Agree to blood products: Yes Meds Home Medications and Allergies Home Medications Medication Instructions Recorded Confirmed Type montelukast 10 mg PO DAILY 10/19/19 07/02/20 History omeprazole 20 mg PO DAILY 10/19/19 07/02/20 History prednisone 10 mg PO DAILY #30 tablet 10/25/19 07/02/20 Rx escitalopram oxalate 10 mg PO DAILY 11/15/19 07/02/20 History Incruse Ellipta 1 inh INHALATION DAILY 03/07/20 07/02/20 History alprazolam 0.5 mg PO QID PRN 03/07/20 07/02/20 History folic acid 1 mg PO DAILY 03/07/20 07/02/20 History mirtazapine 15 mg PO HS 03/07/20 07/02/20 History thiamine HCl (vitamin B1) 100 mg PO DAILY 03/07/20 07/02/20 History ergocalciferol (vitamin D2) 50,000 unit PO WEEKLY 03/08/20 07/02/20 History fluticasone propionate [Flonase 2 spray INTRANASAL DAILY 03/08/20 07/02/20 History Allergy Relief] ipratropium-albuterol 3 ml INHALATION QID 03/08/20 07/02/20 History cyanocobalamin (vitamin B-12) 1,000 mcg PO QAM #30 tablet 03/19/20 07/02/20 Rx [Vitamin B-12] ferrous sulfate 324 mg PO BIDWM #60 tablet 03/19/20 07/02/20 Rx roflumilast 500 mcg tablet 500 mcg PO DAILY #30 tablet 06/04/20 07/02/20 Rx albuterol sulfate 2 puff INHALATION Q4-6H PRN 07/02/20 07/02/20 History fluticasone propion-salmeterol 1 inh INHALATION Q12H 07/02/20 07/02/20 History [Advair Diskus] Allergies Allergy/AdvReac Type Severity Reaction Status Date / Time clindamycin Allergy Severe anaphylactic Verified 07/02/20 06:48 reaction, rash clarithromycin [From Biaxin] Allergy Hives Verified 07/02/20 06:48 Vital Signs Vital Signs - 24 hr 07/02/20 06:30 07/02/20 06:50 07/02/20 06:56 Temperature 36.8 C Pulse Rate 107 H 104 H 102 H Respiratory Rate 36 H 30 H 23 H Blood Pressure 150/84 H 147/78 H Pulse Oximetry 100 100 07/02/20 07:13 07/02/20 07:47 07/02/20 07:48 Temperature Pulse Rate 112 H 98 101 H Respiratory Rate 30 H 14 12 Blood Pressure 137/88 115/77 Pulse Oximetry 92 96 07/02/20 07:50 07/02/20 07:57 07/02/20 08:04 Temperature Puls
[2020-07-02] MEDS: PROPOFOL IV EMULSION 100 ML 11 MG IV CONT (16:20)
[2020-07-02 16:39] LABS: SARS-CoV-2 RNA PCR Negative
[2020-07-02 17:46] LABS: Add Urine Microscopic? YES; Appearance Urine Clear (Clear); Bilirubin Urine Negative (Negative); Blood Urine Negative (Negative); Color Urine Yellow (Yellow); Glucose Urine UA 1+ mg/dL (Negative); Ketones Urine 2+ mg/dL (Negative); Leukocyte Esterase Ur Negative LEU/UL (Negative); Mucus Urine Few /lpf; Nitrate Urine Negative (Negative); Protein Urine 1+ mg/dL (Negative); RBC Urine 0-2 /hpf (0-2); Squamous Epithelial Cell Urine Occasional /hpf (Few); Urobilinogen Urine Negative mg/dL (<2.0); WBC Urine 0-3 /hpf
[2020-07-02 17:48] LABS: Partial Thromboplastin Time 32.5 SECONDS (22.3-36.8)
[2020-07-02 17:52] LABS: Glucose Point of Care 130 (65-105)
[2020-07-02 17:52] LABS: Glucose Point of Care 116 (65-105)
[2020-07-02] MEDS: HEPARIN SODIUM 5,000 UNITS/ML VIAL 3500 UNITS IV PUSH (18:00)
[2020-07-02 23:59] LABS: Glucose Point of Care 101 (65-105)
[2020-07-03] VITALS (26 sets, daily range): BP systolic 106–134; BP diastolic 65–91; PULSE 68–124; RESP 16–26; TEMP 36.5–36.8; O2SAT 92–100
[2020-07-03 00:46] LABS: Partial Thromboplastin Time 65.3 SECONDS (22.3-36.8)
[2020-07-03] MEDS: methylPREDNISolone SOD SUCC 40 MG VIAL IV PUSH ×5 (02:23→23:53)
[2020-07-03] MEDS: IPRATROPIUM BR 0.02% INH SOLN 0.5 MG/2.5 ML VIAL INHALATION ×4 (02:27→20:07)
[2020-07-03] MEDS: ALBUTEROL SULFATE NEB 2.5 MG/0.5 ML INH INHALATION ×4 (02:28→20:07)
[2020-07-03 04:31] LABS: Alveolar/Arterial O2 Gradient 109.3 mmHg; Base Excess ABG 12.4 mEq/l (+/-2.0); Carboxyhemoglobin 0.9 % THb (0-2.0); Fractional Inspired Oxygen 40 %; HCO3 ABG 40.3 mEq/l (22.0-26.0); Methemoglobin ABG 0.4 %THb (0-1.5); Oxygen Content ABG 16.4 %vol (16.0-22.0); Oxygen Saturation ABG 96.8 % (95.0-100.0); Oxyhemoglobin 95.7 % THb (90.0-100.0); PO2 ABG 94.6 mmHg (80.0-100.0); PO2 FiO2 Ratio Arterial Blood 2.37 %; Total Hemoglobin 12.1 g/dL (12.0-18.0); pH ABG 7.374 (7.350-7.450)
[2020-07-03 04:32] LABS: Basophils Percent Auto 0.1 % (0.2-1.2); Immature Granulocyte Absolute 0.03 K/mm3 (0.00-0.031); Immature Granulocyte Percent A 0.3 % (0-0.5); Lymphocytes Absolute Auto 0.57 K/mm3 (0.9-3.2); Lymphocytes Percent Auto 5.5 % (18.3-44.2); Mean Corpuscular HGB Conc 32.4 g/dl (32-36); Mean Corpuscular Hemoglobin 31.1 pg (26-34); Mean Platelet Volume 8.6 fl (7.4-10.4); Monocytes Absolute Auto 1.4 K/mm3 (0.1-0.6); Monocytes Percent Auto 13.5 % (2.6-8.5); Neutrophils Absolute Auto 8.4 K/mm3 (1.3-6.7); Neutrophils Percent Auto 80.6 % (45.5-73.1); Platelet Count Result 268 k/mm3 (150-375); Red Blood Count 3.54 M/mm3 (4.2-5.4); Red Cell Distribution Width 11.8 % (11.5-14.5); White Blood Count 10.4 K/mm3 (4.5-10.0)
[2020-07-03 04:33] LABS: Arterial Blood Gas Ventilator rate 18 /MIN; Device VENTILATOR; Modified Allen's Test Unable to perform; PCO2 ABG 70.7 mmHg (35.0-45.0); Site Drawn LEFT RADIAL
[2020-07-03 04:34] LABS: Arterial Blood Gas PEEP 5 cmH2O; Arterial Blood Gas Tidal Volume 300 ml; Arterial Blood Gas Vent Mode CMV
[2020-07-03 04:45] LABS: Anion Gap 1.99999 mmol/L (8-16); Blood Urea Nitrogen 12 mg/dL (7-17); Calcium 7.8 mg/dL (8.4-10.2); Carbon Dioxide > 40 mmol/L (22-30); Chloride 83 mmol/L (98-107); Estimated CRCL calculation 106 ml/min; Estimated Glomerular Filt Rate > 60; Glucose 83 mg/dL (65-105); Magnesium 1.5 mg/dL (1.6-2.3); Phosphorus 2.9 mg/dL (2.5-4.5); Potassium 3.5 mmol/L (3.4-5.0); Sodium 125 mmol/L (137-145)
[2020-07-03 04:46] LABS: Partial Thromboplastin Time 57.3 SECONDS (22.3-36.8)
[2020-07-03] MEDS: PROPOFOL IV EMULSION 100 ML 12.2 MG IV CONT ×3 (04:53→18:25)
[2020-07-03] MEDS: HEPARIN SODIUM 5,000 UNITS/ML VIAL 1500 UNITS IV PUSH ×2 (05:08→13:20)
[2020-07-03] MEDS: SODIUM CHLORIDE 0.9% IV 1,000 ML 75 ML IV CONT (07:10)
[2020-07-03 08:57] LABS: Troponin I 0.015 ng/mL (0.000-0.034)
--- NOTE | 2020-07-03 09:21 | PM.IMPN ---
Progress Note: A&P Assessment and Plan (1) Acute on chronic respiratory failure with hypoxia and hypercapnia: Code(s): J96.21 - Acute and chronic respiratory failure with hypoxia; J96.22 - Acute and chronic respiratory failure with hypercapnia Status: Acute Assessment and Plan: Patient remains intubated and sedated. Normally wears O2 at 1LFelt related to COPD exacerbation. ABG showing 7.37/71/95 on 40%. Continue IV steroids, antibiotics, and updraft treatments. Continue present management; wean off ventilator per field mechanic/site lead. (2) COPD exacerbation: Code(s): J44.1 - Chronic obstructive pulmonary disease with (acute) exacerbation Status: Acute Assessment and Plan: As above, chest x-ray reviewed on 07/03 showing hyperinflation and scarring. Empirically placed on antibiotics Day 2. Continue updrafts and IV steroids. (3) ST elevation on ECG: Code(s): R94.31 - Abnormal electrocardiogram [ECG] [EKG] Status: Acute Assessment and Plan: initially felt ST changes were acute but had similar findings on EKG when she presented with respiratory failure in February of this year. Echo 07/02/20 showing normal LV systolic function, Grade I diastolic dysfunction and normal wall motion. She does have elevated RAP and dilated IVC with normal RA and RV dimensions. Troponins drawn and negative x3. DD positive. Currently on IV heparin. Appreciate Cardiology input. Check LE doppler. Consider CTA. (4) Alcohol abuse, daily use: Code(s): F10.10 - Alcohol abuse, uncomplicated Status: Chronic Assessment and Plan: History of daily alcohol consumption at least 2 beers a day. Currently on Thiamine and Folate. continue to monitor for signs or symptoms of withdrawal. (5) Suspected 2019 novel coronavirus infection: Code(s): Z20.828 - Contact with and (suspected) exposure to other viral communicable diseases Status: Ruled-out Assessment and Plan: COVID test is negative. (6) Tobacco abuse: Code(s): Z72.0 - Tobacco use Status: Chronic Assessment and Plan: Tobacco cessation a must. This will be re-inforced when able. (7) DVT prophylaxis: Code(s): Z29.9 - Encounter for prophylactic measures, unspecified Status: Acute Assessment and Plan: Patient currently on IV heparin Subjective Date/time seen: 07/03/20 09:21 Interval history: Date of service 07/03 54-year-old female with history of COPD, alcohol and tobacco abuse here for acute on chronic respiratory failure. Assuming care. Chart reviewed. Patient currently intubated and sedated. Currently on propofol 50. Urine output was decreased overnight. Patient having large amount of secretions. Review of Systems Review of Systems: ROS unobtainable: Yes unobtainable due to endotracheal tube Exam Narrative: Exam Narrative: AF 122/76 92 16 97% MV Gen -Intubated and sedated HEENT - ET tube and OG tube secured. Chest - Distant but clear breath sounds. CV - RRR S1/S2. Telemetry showing sinus tachycardia and PVCs. Abd - Soft. Nondistended. Positive bowel sounds. Ext - Slight edema noted in the left lower extremity. 2+ DP pulses bilaterally. Neuro - Eyes open but patient does not follow commands. Skin - Warm and dry Objective Data Vital Signs Vital Signs: Vital Signs - 24 hr 07/02/20 09:39 07/02/20 09:59 07/02/20 10:07 Temperature Pulse Rate 98 101 H 92 Respiratory Rate 22 H 20 20 Blood Pressure 135/94 H 129/94 H Pulse Oximetry 100 100 07/02/20 10:44 07/02/20 12:00 07/02/20 14:00 Temperature 97.6 F Pulse Rate 107 H 92 90 Respiratory Rate 24 H 18 24 H Blood Pressure 145/117 H 144/88 H 114/86 Pulse Oximetry 100 98 100 07/02/20 14:34 07/02/20 16:00 07/02/20 17:05 Temperature 98.4 F Pulse Rate 94 121 H 120 H Respiratory Rate 18 18 Blood Pressure 169/99 H Pulse Oximetry 99 97 100 07/02/20 18
[2020-07-03] MEDS: POTASSIUM CHLORIDE 20 MEQ PACKET (FOR LIQUID) 40 MEQ FEED TUBE (09:22)
[2020-07-03] MEDS: MAGNESIUM SULF 2 GM/WATER 50ML 2 GM/50 ML BAG IVPB (09:22)
[2020-07-03] MEDS: FOLIC ACID 1 MG/0.2 ML INJ IV PUSH (09:39)
[2020-07-03] MEDS: PANTOPRAZOLE SODIUM IV 40 MG VIAL IV PUSH (09:40)
[2020-07-03] MEDS: THIAMINE HCL 200 MG/2 ML VIAL 100 MG IV PUSH (09:40)
[2020-07-03 11:19] LABS: Partial Thromboplastin Time 67.4 SECONDS (22.3-36.8)
--- NOTE | 2020-07-03 11:20 | PCDIET ---
Nutrition Follow-Up Complete: Nutrition Diagnosis: Inadequate oral intake related to oral intubation as evidenced by NPO status. Nutrition Goal:Patient to meet estimated nutritional needs. Goal in progress. MD ordered Vital 1.2 at 30mL/hr which provides 792kcal (1114kcal with Propofol at current rate) and 50 grams protein over 22 hours/day. Recommend obtaining albumin level for calcium correction and replacing, if indicated. Last recorded weight is 40.8 kg which is stable. Bowel Motility: No documented BM as of yet. Labs Reviewed: Hgb (11.0), Hct (34.0), Cr (0.3), Na (125), Ca (7.8), Mg (1.5) Meds Noted: Albuterol, Folic Acid, Magnesium Sulfate, Protonix, Rocephin, Heparin, Novolog, Solu Medrol, Doxycycline, Atrovent, Thiamine, NS at 75mL/hr, Propofol (rate of 12.2mL/hr provides 322kcal over 24 hour period) Additional Notes: Coccyx reddened, but no open sores documented. Will continue to monitor with same goal. Nutrition Monitoring and Evaluation: Follow up every Thursday/Thursday. Follow daily in ICU rounds.
[2020-07-03 13:13] LABS: Glucose Point of Care 72 (65-105)
--- NOTE | 2020-07-03 13:23 | ECG_ITS ---
Measurements Intervals [place] Rate: 88 P: 86 MT: 145 QRS: 62 QRSD: 68 T: 82 QT: 352 QTc: 427 Interpretive Statements SINUS RHYTHM ST ELEVATION IN ANT/INF LEADS, PROBABLY EARLY REPOLARIZATION PEAKED T WAVES- CONSIDER HYPERKALEMIA OR ISCHEMIA BASELINE ARTIFACT- I, II, III, AVR, AVL, AVF, V1-V2 ABNORMAL ECG Electronically Signed On 07-03-2020 14:03:10 CDT by Quinton Bell D.O.
--- NOTE | 2020-07-03 13:24 | WPDINTPN ---
Progress Note: A&P Assessment and Plan (1) Acute and chronic respiratory failure: Qualifiers: Respiratory failure complication: hypercapnia Qualified Code(s): J96.22 - Acute and chronic respiratory failure with hypercapnia Code(s): J96.20 - Acute and chronic respiratory failure, unspecified whether with hypoxia or hypercapnia Status: Acute Assessment and Plan: patient with history of COPD, on home oxygen 3-4 L presented the ED on 07/02/2020 with increasing shortness of breath, pCO2 levels of 175 in the ED on the ABG, patient was noncompliant with BiPAP and was intubated on 07/02/2020 in the ER - chest x-ray and repeat ABGs reviewed, pCO2 level appears to be close to baseline now - patient failed pressure support ventilation trial quickly within few minutes due to high RSBI. - continue ceftriaxone and doxycycline, patient received 1 dose of azithromycin in the ED, patient is allergy to clarithromycin - continue bronchodilators, Solu-Medrol - patient on propofol infusion and tolerating well, daily sedation vacation and maintain RASS of 0 to -2 (2) COPD exacerbation: Code(s): J44.1 - Chronic obstructive pulmonary disease with (acute) exacerbation Status: Acute Assessment and Plan: continue mechanical ventilation, steroids, bronchodilators and antibiotics (3) Acute electrocardiogram changes: Code(s): R94.31 - Abnormal electrocardiogram [ECG] [EKG] Status: Acute Assessment and Plan: ST elevation diffusely in the inferior and anterior leads, Similar to EKG in February 2020 - Dr Gloria, Evaluated the patient in the ER, started patient on aspirin and heparin infusion. Since the cardiology group ( [facility]) had seen the patient in February, care was transferred to the other cardiology group. - patient's serial troponin has stayed negative ruling out myocardial infarction. - I will discuss with cardiology regarding discontinuing heparin infusion. - Repeat EKG at this time - Echocardiogram on 03/09/2020: showed normal LV systolic function with EF 60-65%, RV chamber dimension is normal, no valvular abnormalities, pericardium has a thickened nodule appearance. (4) Tobacco abuse: Code(s): Z72.0 - Tobacco use Status: Chronic Assessment and Plan: patient with history of tobacco abuse, will area counselor on cessation of tobacco use once patient is extubated (5) Alcohol abuse, daily use: Code(s): F10.10 - Alcohol abuse, uncomplicated Status: Chronic Assessment and Plan: patient also has a history of alcohol abuse - continue thiamine and folic acid - start Precedex infusion (6) Suspected 2019 novel coronavirus infection: Code(s): Z20.828 - Contact with and (suspected) exposure to other viral communicable diseases Status: Ruled-out Assessment and Plan: COVID-19 ruled out. SARS-CoV-2 PCR was negative Patient was on Airborne, Droplet and Contact Isolation which now has been discontinued. (7) DVT prophylaxis: Code(s): Z29.9 - Encounter for prophylactic measures, unspecified Status: Acute Assessment and Plan: DVT prophylaxis: patient on heparin infusion at this time Lower extremity Dopplers were negative for DVT stress ulcer prophylaxis: Protonix Additional Plan Nutrition - start Tube Feeds Code Status - Full Code critical care time spent: 34 minutes Due to a high probability of clinically significant, life threatening deterioration, the patient required my highest level of preparedness to intervene emergently and I personally spent this critical care time directly and personally managing the patient. This critical care time included obtaining a history; examining the patient; pulse oximetry; ordering and review of studies; arranging urgent treatment with development of a management plan; evaluation of patient's response to treatment; frequent reassessment; and discussions with
[2020-07-03 17:02] LABS: Partial Thromboplastin Time 90.2 SECONDS (22.3-36.8)
[2020-07-03 17:36] LABS: Glucose Point of Care 96 (65-105)
[2020-07-03] MEDS: MIRTAZAPINE 15 MG TABLET FEED TUBE (20:55)
[2020-07-03] MEDS: HEPARIN SOD/D5W 100 UNITS/ML 25,000 UNITS/250 ML BAG 9 UNITS IV CONT (23:00)
[2020-07-03 23:41] LABS: Partial Thromboplastin Time 57.3 SECONDS (22.3-36.8)
[2020-07-03 23:51] LABS: Glucose Point of Care 124 (65-105)
[2020-07-04] VITALS (27 sets, daily range): BP systolic 116–151; BP diastolic 59–107; PULSE 52–111; RESP 16–25; TEMP 36.2–36.9; O2SAT 94–100
[2020-07-04] MEDS: HEPARIN SODIUM 5,000 UNITS/ML VIAL 1500 UNITS IV PUSH (00:33)
[2020-07-04] MEDS: IPRATROPIUM BR 0.02% INH SOLN 0.5 MG/2.5 ML VIAL INHALATION ×4 (02:06→20:14)
[2020-07-04] MEDS: ALBUTEROL SULFATE NEB 2.5 MG/0.5 ML INH INHALATION ×4 (02:06→20:14)
[2020-07-04] MEDS: PROPOFOL IV EMULSION 100 ML 12.2 MG IV CONT (03:00)
[2020-07-04 04:15] LABS: Alveolar/Arterial O2 Gradient 92.1 mmHg; Base Excess ABG 11.6 mEq/l (+/-2.0); Carboxyhemoglobin 0.3 % THb (0-2.0); Fractional Inspired Oxygen 40 %; HCO3 ABG 37.3 mEq/l (22.0-26.0); Methemoglobin ABG 0.4 %THb (0-1.5); Oxygen Content ABG 17.6 %vol (16.0-22.0); Oxygen Saturation ABG 98.7 % (95.0-100.0); Oxyhemoglobin 97.5 % THb (90.0-100.0); PO2 ABG 132.2 mmHg (80.0-100.0); Reduced Hemoglobin 1.8 %THb (0-5.0); Total Hemoglobin 12.7 g/dL (12.0-18.0); pH ABG 7.465 (7.350-7.450)
[2020-07-04 04:17] LABS: Arterial Blood Gas PEEP 5 cmH2O; Arterial Blood Gas Tidal Volume 330 ml; Arterial Blood Gas Vent Mode CMV; Arterial Blood Gas Ventilator rate 20 /MIN; Device VENTILATOR; Modified Allen's Test Pass; Site Drawn LEFT RADIAL
[2020-07-04] MEDS: methylPREDNISolone SOD SUCC 40 MG VIAL IV PUSH (06:15)
[2020-07-04 06:21] LABS: Glucose Point of Care 137 (65-105)
[2020-07-04 06:57] LABS: Hematocrit 35.3 % (37.0-47.0); Hemoglobin 11.4 g/dL (12.0-15.0); Mean Corpuscular HGB Conc 32.3 g/dl (32-36); Mean Corpuscular Hemoglobin 30.4 pg (26-34); Mean Corpuscular Volume 94.1 fl (80-100); Mean Platelet Volume 8.9 fl (7.4-10.4); Platelet Count Result 278 k/mm3 (150-375); Red Blood Count 3.75 M/mm3 (4.2-5.4); Red Cell Distribution Width 11.9 % (11.5-14.5); White Blood Count 5.9 K/mm3 (4.5-10.0)
[2020-07-04 07:04] LABS: Partial Thromboplastin Time 105.9 SECONDS (22.3-36.8)
[2020-07-04 07:06] LABS: Anion Gap 5 mmol/L (8-16); Blood Urea Nitrogen 12 mg/dL (7-17); Calcium 8.2 mg/dL (8.4-10.2); Carbon Dioxide 39 mmol/L (22-30); Chloride 85 mmol/L (98-107); Estimated CRCL calculation 138 ml/min; Estimated Glomerular Filt Rate > 60; Glucose 132 mg/dL (65-105); Magnesium 1.8 mg/dL (1.6-2.3); Phosphorus 2.9 mg/dL (2.5-4.5); Potassium 3.4 mmol/L (3.4-5.0); Sodium 129 mmol/L (137-145)
[2020-07-04] MEDS: FOLIC ACID 1 MG/0.2 ML INJ IV PUSH (09:48)
[2020-07-04] MEDS: PANTOPRAZOLE SODIUM IV 40 MG VIAL IV PUSH (09:49)
[2020-07-04] MEDS: THIAMINE HCL 200 MG/2 ML VIAL 100 MG IV PUSH (09:50)
[2020-07-04 10:18] LABS: Alveolar/Arterial O2 Gradient 122.4 mmHg; Fractional Inspired Oxygen 40 %; HCO3 ABG 39.4 mEq/l (22.0-26.0); Oxygen Content ABG 16.9 %vol (16.0-22.0); Oxygen Saturation ABG 92.2 % (95.0-100.0); Oxyhemoglobin 90.8 % THb (90.0-100.0); PO2 ABG 71.6 mmHg (80.0-100.0); PO2 FiO2 Ratio Arterial Blood 1.79 %; Total Hemoglobin 13.2 g/dL (12.0-18.0); pH ABG 7.314 (7.350-7.450)
[2020-07-04 10:19] LABS: PCO2 ABG 79.3 mmHg (35.0-45.0)
[2020-07-04 10:20] LABS: Arterial Blood Gas PEEP 5 cmH2O; Arterial Blood Gas Pressure Support 5 cmH2O; Arterial Blood Gas Vent Mode SPONTANEOUS; Device VENTILATOR; Site Drawn LEFT BRACHIAL
--- NOTE | 2020-07-04 11:19 | PM.IMPN ---
Progress Note: A&P Assessment and Plan (1) Acute on chronic respiratory failure with hypoxia and hypercapnia: Code(s): J96.21 - Acute and chronic respiratory failure with hypoxia; J96.22 - Acute and chronic respiratory failure with hypercapnia Status: Acute Assessment and Plan: Patient with respiratory failure requiring intubated on admission. Normally wears O2 at 1L. [place] related to COPD exacerbation. ABG showing 7.46/753/132 on 40% today and patient able to be extubated today. Continue IV steroids, antibiotics, and updraft treatments. Aggressive pulmonary toilet. PT/OT (2) COPD exacerbation: Code(s): J44.1 - Chronic obstructive pulmonary disease with (acute) exacerbation Status: Acute Assessment and Plan: As above, chest x-ray reviewed on 07/04 showing hyperinflation and scarring. Empirically placed on antibiotics Day 3. Continue updrafts and IV steroids. (3) ST elevation on ECG: Code(s): R94.31 - Abnormal electrocardiogram [ECG] [EKG] Status: Acute Assessment and Plan: Initially felt ST changes were acute but had similar findings on EKG when she presented with respiratory failure in February 2020. Echo 07/02/20 showing normal LV systolic function, Grade I diastolic dysfunction and normal wall motion. She does have elevated RAP and dilated IVC with normal RA and RV dimensions. Troponins drawn and negative x3. DD positive at 1.4. LE doppler negative. Currently on IV heparin. Appreciate Cardiology input. Discussed with speedboat driver; PE seems less likely. Consider stopping Heparin drip (4) Alcohol abuse, daily use: Code(s): F10.10 - Alcohol abuse, uncomplicated Status: Chronic Assessment and Plan: History of daily alcohol consumption at least 2 beers a day. Currently on Thiamine and Folate. Continue to monitor for signs or symptoms of withdrawal. (5) Suspected 2019 novel coronavirus infection: Code(s): Z20.828 - Contact with and (suspected) exposure to other viral communicable diseases Status: Ruled-out Assessment and Plan: COVID test is negative. (6) Tobacco abuse: Code(s): Z72.0 - Tobacco use Status: Chronic Assessment and Plan: Tobacco cessation a must. This will be re-inforced when able. (7) Hyponatremia: Code(s): E87.1 - Hypo-osmolality and hyponatremia Status: Acute Assessment and Plan: Na 133 on admission but dropped to 125. Na better at 129 today. Continue to hold SSRI. Check Doris level. (8) DVT prophylaxis: Code(s): Z29.9 - Encounter for prophylactic measures, unspecified Status: Acute Assessment and Plan: Patient currently on IV heparin Subjective Date/time seen: 07/04/20 11:19 Interval history: Date of service 07/04 54-year-old female with history of COPD, alcohol and tobacco abuse here for acute on chronic respiratory failure. Patient extubated this morning. Still on Precedex. She is alert but confused. Review of Systems Review of Systems: ROS unobtainable: Yes unobtainable due to mental status Exam Narrative: Exam Narrative: AF 140/81 83 20 100% MV Gen - NARD but with psychomotor agitation Chest - few inspiratory rhoinchi. nml RR CV - RRR S1/S2 Abd - Soft. NT/ND. scaphoid abd. - Mcduffie secured with clear urine Ext - no edema Neuro - alert, confused Skin - Warm and dry Objective Data Vital Signs Vital Signs: Vital Signs - 24 hr 07/03/20 12:00 07/03/20 14:00 07/03/20 14:10 Temperature 97.7 F Pulse Rate 93 87 85 Respiratory Rate 20 16 18 Blood Pressure 116/82 118/79 Pulse Oximetry 100 100 07/03/20 14:12 07/03/20 16:00 07/03/20 16:55 Temperature 97.9 F Pulse Rate 86 80 99 Respiratory Rate 18 Blood Pressure 106/65 Pulse Oximetry 100 100 100 07/03/20 18:00 07/03/20 20:00 07/03/20 20:07 Temperature 97.8 F Pulse Rate 71 69 68 Respiratory Rate 18 20 18 Blood P
--- NOTE | 2020-07-04 11:21 | PCDIET ---
ICU Rounding Note: Tube feedings held for possible extubation. Patient previously tolerating Vital 1.2 at 30mL/hr without issues. Last recorded weight is 38.4kg which is down from last review. Bowel Motility: No BM documented as of yet. Labs Reviewed: Hgb (11.4), Hct (35.3), Glu (132), Cr (0.2), Na (129), Ca (8.2) Meds Noted: Albuterol, Rocephin, Precedex, Doxycycline, Folic Acid, Heparin, Novolog, Atrovent, Solu Medrol, Remeron, Protonix, Thiamine Additional Notes: No albumin available for calcium correction. No documented skin breakdown. If no BM in next 24 hours, would evaluate appropriateness of adding medication. Following daily in ICU rounds. Assessing/reassessing every Thursday/Thursday.
--- NOTE | 2020-07-04 12:10 | WPDCN ---
Assessment and Plan Assessment and plan (1) Acute electrocardiogram changes: Code(s): R94.31 - Abnormal electrocardiogram [ECG] [EKG] Status: Acute Assessment and Plan: Patient presented with respiratory failure and was found to have ST elevation on her EKG, similar to her presentation in February. The EKG changes appear to be secondary to early repolarization and not from an OR or acute coronary syndrome. Her troponins are minimally elevated which is not surprising considering her presentation with severe acidosis and hypercarbia. Her echocardiogram showed no wall motion abnormalities. I do not think she has ACS. Okay to discontinue heparin DVT prophylaxis w/ Lovenox. No further cardiac evaluation needed. (2) COPD exacerbation: Code(s): J44.1 - Chronic obstructive pulmonary disease with (acute) exacerbation Status: Acute Assessment and Plan: Successfully extubated. Treatment per account installer. (3) Chronic respiratory failure with hypoxia and hypercapnia: Code(s): J96.11 - Chronic respiratory failure with hypoxia; J96.12 - Chronic respiratory failure with hypercapnia Status: Acute Assessment and Plan: Chronic hypercarbic respiratory failure. Treatment per grain commodity manager HPI Data of Consult Date/Time: 07/04/20 12:10 Requesting Physician: Aryan Guzman MD Primary Care Provider: Kristian Escobar MD Consult Narrative Narrative: Date of service: 07/04/2020 Esther Brink is a 54 year old female Was asked to see at the request of Dr. De La Rosa for my advice and opinion regarding her EKG changes an appropriate cardiac management, in consultation. The patient is a very frail lady with severe COPD who was admitted to the emergency room on 07/02/2020 with respiratory failure and intubated, and transferred to the ICU. She had dynamic ST elevation in the inferior anterior and lateral leads and she was started on a heparin drip in the emergency room. On admission her pH was 7.11, pCO2 was 175 and PO2 was 400. subsequently her COPD is been addressed and she was extubated this morning. Her troponins were 0.018, 0.017 , and 0.015. the patient had a similar presentation in February with markedly abnormal EKG and was seen by Dr. Ramos. Her EKG changes normalized with intubation and her troponins were negative. echo showed no wall motion abnormalities. He did not think she had an acute coronary syndrome and because of her frailty and chronic lung disease thought she she did not have ACS and also would be a course poor candidate for any kind of invasive cardiac procedures, so no further cardiac evaluation was performed. Review of Systems Review of Systems: Narrative: review of systems obtained from the patient who is confused but also from the nurse, the account installer and the chart ROS unobtainable: Yes unobtainable due to medical condition ( Patient is confused) Constitutional: Constitutional: Reports weakness Eyes: Eyes: Reports no additional eye complaints ENT: Denies nasal congestion Cardiovascular: Cardiovascular: Denies chest pain, Denies pedal edema and Denies lightheadedness Respiratory: Respiratory: Reports chest congestion, Reports cough, Reports dyspnea, Reports dyspnea on exertion and Reports wheezing Gastrointestinal: Gastrointestinal: Denies abdominal pain and Denies hematochezia Genitourinary: Genitourinary: Denies dysuria Musculoskeletal: Musculoskeletal: Denies back pain Integumentary/Breasts: Comments: ecchymosis over forearms Neurologic: Reports confusion Psychiatric: Psychiatric: Reports confusion [facility] Social History Social History Social History: The patient lives with her son. She has smoked as many as 2 packs of cigarettes a day. She apparently drinks 2 or 3 beers a day,
--- NOTE | 2020-07-04 12:46 | WPDINTPN ---
Progress Note: A&P Assessment and Plan (1) Acute and chronic respiratory failure: Qualifiers: Respiratory failure complication: hypercapnia Qualified Code(s): J96.22 - Acute and chronic respiratory failure with hypercapnia Code(s): J96.20 - Acute and chronic respiratory failure, unspecified whether with hypoxia or hypercapnia Status: Acute Assessment and Plan: patient with history of severe COPD, on home oxygen 3-4 L and frequent admissions secondary to COPD exacerbation and respiratory failure was admitted on 07/02/2020 with increasing shortness of breath, pCO2 levels of 175 in the ED on the ABG, patient was noncompliant with BiPAP and was intubated on 07/02/2020 in the ER - chest x-ray and repeat ABGs reviewed, - 5/5 PSV SBT done for more than 1 hour on Precedex infusion to combat anxiety and agitation. RSBI, and Vitals acceptable. ABG appears borderline but patient is a chronic CO2 retainer and may not be any better tomorrow. Pt is awake and following commands. I will extubate and monitor. NPO for now. I will use Bipap PRN and at night - continue ceftriaxone and doxycycline, patient received 1 dose of azithromycin in the ED, patient is allergy to clarithromycin - continue bronchodilators, Solu-Medrol but decrease dose of steroids (2) COPD exacerbation: Code(s): J44.1 - Chronic obstructive pulmonary disease with (acute) exacerbation Status: Acute Assessment and Plan: steroids, bronchodilators and antibiotics (3) Acute electrocardiogram changes: Code(s): R94.31 - Abnormal electrocardiogram [ECG] [EKG] Status: Acute Assessment and Plan: ST elevation diffusely in the inferior and anterior leads, Similar to EKG in February 2020 - Dr Gloria, Evaluated the patient in the ER, started patient on aspirin and heparin infusion. Since the cardiology group ( Dr. [facility]) had seen the patient in February, care was transferred to the other cardiology group. - patient's serial troponin has stayed negative ruling out myocardial infarction. - patient seen by Dr. sirael and discuss case with her. Does not recommend any further cardiac workup. - Discontinue heparin infusion - Echocardiogram on 03/09/2020: showed normal LV systolic function with EF 60-65%, RV chamber dimension is normal, no valvular abnormalities, pericardium has a thickened nodule appearance. (4) Tobacco abuse: Code(s): Z72.0 - Tobacco use Status: Chronic Assessment and Plan: patient with history of tobacco abuse, will counselor camp on cessation of tobacco use once patient is extubated (5) Alcohol abuse, daily use: Code(s): F10.10 - Alcohol abuse, uncomplicated Status: Chronic Assessment and Plan: patient also has a history of alcohol abuse - continue thiamine and folic acid - continue Precedex infusion (6) Suspected 2019 novel coronavirus infection: Code(s): Z20.828 - Contact with and (suspected) exposure to other viral communicable diseases Status: Ruled-out Assessment and Plan: COVID-19 ruled out. SARS-CoV-2 PCR was negative Patient was on Airborne, Droplet and Contact Isolation which now has been discontinued. (7) DVT prophylaxis: Code(s): Z29.9 - Encounter for prophylactic measures, unspecified Status: Acute Assessment and Plan: DVT prophylaxis: patient on subcutaneous Lovenox Lower extremity Dopplers were negative for DVT stress ulcer prophylaxis: Protonix Additional Plan Nutrition - she was on Tube Feeds which were heldl breathing trial Code Status - Full Code critical care time spent: 32 minutes Due to a high probability of clinically significant, life threatening deterioration, the patient required my highest level of preparedness to intervene emergently and I personally spent this critical care time directly and personally managing the patient. This critical care time included danna
[2020-07-04] MEDS: MAGNESIUM SULF 1 GM/D5W 100 ML 1 GM/100 ML BAG IVPB (13:10)
[2020-07-04] MEDS: ALPRAZolam (*CRX) 0.5 MG TABLET PO ×2 (13:10→20:18)
[2020-07-04] MEDS: POTASSIUM CHLORIDE 20 MEQ TABLET 40 MEQ PO (13:10)
[2020-07-04] MEDS: CYANOCOBALAMIN 1,000 MCG TABLET 1000 MCG PO (13:11)
[2020-07-04] MEDS: FOLIC ACID 1 MG TABLET PO (13:11)
[2020-07-04] MEDS: ROFLUMILAST 500 MCG TABLET PO (13:11)
[2020-07-04] MEDS: MONTELUKAST SODIUM 10 MG TABLET PO (13:11)
[2020-07-04 13:48] LABS: Glucose Point of Care 117 (65-105)
[2020-07-04 18:08] LABS: Glucose Point of Care 111 (65-105)
[2020-07-04] MEDS: FLUTICASONE/SALMETEROL 115-21 MCG INHALER 1 PUFF 2 PUFF INHALATION (20:15)
[2020-07-04] MEDS: MIRTAZAPINE 15 MG TABLET FEED TUBE (20:18)
[2020-07-05] VITALS (21 sets, daily range): BP systolic 109–134; BP diastolic 64–109; PULSE 78–118; RESP 17–29; TEMP 36.2–37.3; O2SAT 88–100
[2020-07-05 01:09] LABS: Creatinine Urine 7.9 mg/dL; Sodium Urine Random 94 meq/L
[2020-07-05] MEDS: IPRATROPIUM BR 0.02% INH SOLN 0.5 MG/2.5 ML VIAL INHALATION ×4 (01:47→20:01)
[2020-07-05] MEDS: ALBUTEROL SULFATE NEB 2.5 MG/0.5 ML INH INHALATION ×4 (01:47→20:01)
[2020-07-05] MEDS: ALPRAZolam (*CRX) 0.5 MG TABLET PO ×3 (02:36→21:58)
[2020-07-05 05:09] LABS: Hematocrit 37.7 % (37.0-47.0); Hemoglobin 12.5 g/dL (12.0-15.0); Mean Corpuscular HGB Conc 33.2 g/dl (32-36); Mean Corpuscular Hemoglobin 30.6 pg (26-34); Mean Corpuscular Volume 92.4 fl (80-100); Mean Platelet Volume 8.8 fl (7.4-10.4); Platelet Count Result 280 k/mm3 (150-375); Red Blood Count 4.08 M/mm3 (4.2-5.4); Red Cell Distribution Width 11.7 % (11.5-14.5); White Blood Count 12.3 K/mm3 (4.5-10.0)
[2020-07-05 05:26] LABS: Alveolar/Arterial O2 Gradient 145.6 mmHg; Base Excess ABG 16.4 mEq/l (+/-2.0); Fractional Inspired Oxygen 80 %; HCO3 ABG 48.6 mEq/l (22.0-26.0); Oxygen Content ABG 18.5 %vol (16.0-22.0); Oxygen Saturation ABG 99.6 % (95.0-100.0); Oxyhemoglobin 98.4 % THb (90.0-100.0); PO2 ABG 306.9 mmHg (80.0-100.0); PO2 FiO2 Ratio Arterial Blood 3.84 %; Total Hemoglobin 12.8 g/dL (12.0-18.0)
[2020-07-05 05:28] LABS: pH ABG 7.254 (7.350-7.450)
[2020-07-05 05:29] LABS: Device NON-REBREATHER MASK; Modified Allen's Test Pass; PCO2 ABG 112.3 mmHg (35.0-45.0); Site Drawn LEFT BRACHIAL
[2020-07-05 05:43] LABS: Anion Gap 5.99999 mmol/L (8-16); Blood Urea Nitrogen 7 mg/dL (7-17); Calcium 8.2 mg/dL (8.4-10.2); Carbon Dioxide > 40 mmol/L (22-30); Chloride 73 mmol/L (98-107); Estimated CRCL calculation 121 ml/min; Estimated Glomerular Filt Rate > 60; Glucose 76 mg/dL (65-105); Magnesium 1.6 mg/dL (1.6-2.3); Potassium 3.7 mmol/L (3.4-5.0); Sodium 119 mmol/L (137-145)
[2020-07-05 07:02] LABS: Anion Gap 6.99999 mmol/L (8-16); Blood Urea Nitrogen 7 mg/dL (7-17); Carbon Dioxide > 40 mmol/L (22-30); Chloride 73 mmol/L (98-107); Estimated CRCL calculation 87 ml/min; Estimated Glomerular Filt Rate > 60; Glucose 77 mg/dL (65-105); Potassium 3.5 mmol/L (3.4-5.0); Sodium 120 mmol/L (137-145)
--- NOTE | 2020-07-05 08:21 | PM.IMPN ---
Progress Note: A&P Assessment and Plan (1) Acute on chronic respiratory failure with hypoxia and hypercapnia: Code(s): J96.21 - Acute and chronic respiratory failure with hypoxia; J96.22 - Acute and chronic respiratory failure with hypercapnia Status: Acute Assessment and Plan: Patient with respiratory failure requiring intubated on admission. Normally wears O2 at 1L. [place] related to COPD exacerbation. ABG showing 7.25/112/307 and placed on BiPAP. Currently off BiPAP. Will need BiPAP at night and with naps. Continue IV steroids, antibiotics, and updraft treatments. Aggressive pulmonary toilet. PT/OT. Monitor and add BiPAP if she her mental status worsens. Discussed with de icer element winder. Precedex off now. (2) COPD exacerbation: Code(s): J44.1 - Chronic obstructive pulmonary disease with (acute) exacerbation Status: Acute Assessment and Plan: As above, chest x-ray reviewed on 07/04 showing hyperinflation and scarring. Empirically placed on antibiotics Day 4. Continue updrafts and IV steroids. Steroids being weaned (3) ST elevation on ECG: Code(s): R94.31 - Abnormal electrocardiogram [ECG] [EKG] Status: Acute Assessment and Plan: Initially felt ST changes were acute but had similar findings on EKG when she presented with respiratory failure in February 2020. Echo 07/02/20 showing normal LV systolic function, Grade I diastolic dysfunction and normal wall motion. She does have elevated RAP and dilated IVC with normal RA and RV dimensions. Troponins drawn and negative x3. DD positive at 1.4. LE doppler negative. Appreciate Cardiology input. (4) Alcohol abuse, daily use: Code(s): F10.10 - Alcohol abuse, uncomplicated Status: Chronic Assessment and Plan: History of daily alcohol consumption at least 2 beers a day. Currently on Thiamine and Folate. Continue to monitor for signs or symptoms of withdrawal. (5) Suspected 2019 novel coronavirus infection: Code(s): Z20.828 - Contact with and (suspected) exposure to other viral communicable diseases Status: Ruled-out Assessment and Plan: COVID test is negative. (6) Tobacco abuse: Code(s): Z72.0 - Tobacco use Status: Chronic Assessment and Plan: Tobacco cessation a must. This will be re-inforced when able. (7) Hyponatremia: Code(s): E87.1 - Hypo-osmolality and hyponatremia Status: Acute Assessment and Plan: Na 133 on admission but dropped to 120 today. Continue to hold SSRI. Check Doris level 94. FENa 3%. Could be post-renal. IV fluids started. Check renal US. May need fluid restriction (8) DVT prophylaxis: Code(s): Z29.9 - Encounter for prophylactic measures, unspecified Status: Acute Assessment and Plan: Lovenox Subjective Date/time seen: 07/05/20 08:21 Interval history: Date of service 07/05 54-year-old female with history of COPD, alcohol and tobacco abuse here for acute on chronic respiratory failure. Patient intubated on admission and extubated on 07/04/20. Per RN, patient able to eat yesterday. Also was up walking to BR once. This morning, had difficulty getting up to pivot to BR. Overnight, took off O2 and sensor and found to be hypoxic. ABG showing pH 7.25 and pCO2 112 so BiPAP started. Off Bipap now. patient alert but confused and Unable to provide history. Review of Systems Review of Systems: ROS unobtainable: Yes unobtainable due to mental status Exam Narrative: Exam Narrative: AF 118/75 109 20 100 % MV Gen - NARD sitting up at side of bed with standby assist Chest - distant BS. inspiratory faint crackles CV - RRR S1/S2;Telemetry showing no significant dysrhythmias Abd - Soft. NT/ND. +bs Ext - no pedal edema Neuro - alert, confused Skin - Warm and dry Objective Data Vital Signs Vital Signs: Vital Signs - 24 hr 07/04/20 08:54 07/04/20 08:59 07/04/20 0
[2020-07-05] MEDS: POTASSIUM CHLORIDE 20 MEQ TABLET 40 MEQ PO (08:26)
[2020-07-05] MEDS: FOLIC ACID 1 MG TABLET PO (08:28)
[2020-07-05] MEDS: PANTOPRAZOLE SODIUM IV 40 MG VIAL IV PUSH (08:28)
[2020-07-05] MEDS: methylPREDNISolone SOD SUCC 40 MG VIAL IV PUSH (08:28)
[2020-07-05] MEDS: CYANOCOBALAMIN 1,000 MCG TABLET 1000 MCG PO (08:29)
[2020-07-05] MEDS: ENOXAPARIN 40 MG/0.4 ML SYRINGE SUB-Q (08:29)
[2020-07-05] MEDS: MONTELUKAST SODIUM 10 MG TABLET PO (08:29)
[2020-07-05] MEDS: SODIUM CHLORIDE 0.9% IV 1,000 ML 75 ML IV CONT (08:30)
[2020-07-05 08:47] LABS: Glucose Point of Care 80 (65-105)
[2020-07-05] MEDS: FLUTICASONE/SALMETEROL 115-21 MCG INHALER 1 PUFF 2 PUFF INHALATION ×2 (09:10→20:01)
--- NOTE | 2020-07-05 09:49 | PCOTNOTE ---
Attempted OT evaluation, but unable to complete as patient unable to stay awake enough to participate. Will attempt again later today.
--- NOTE | 2020-07-05 10:53 | PCDIET ---
ICU Rounding Note: Pt current nutrition is Full liquids. Nutrition recommendation: Agree with diet, Recommend ADAT to Regular with addition of Ensure Compact TID Last recorded weight is 38.4kg yesterday. Now 33.7kg. Question accuracy Bowel Motility: Small BM today Labs Reviewed:Na 120 WBC 12.3 Meds Noted:B12, albuterol, folic acid, novolog, remeron, protonix Additional Notes: Pt with bruising on skin. Extubated on on full liquids. No PO intake yet. BMI lower. Will offer Ensure compact TID to help meet needs. Na continues to be low, as Na improves we can consider Enlive for additional kcals and fluids. Agree with folic acid and b12. 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 Pt currently only A&Ox1. We will continue to follow every three days to assess for adequate PO intake.
--- NOTE | 2020-07-05 10:58 | WPDINTPN ---
Progress Note: A&P Assessment and Plan (1) Acute and chronic respiratory failure: Qualifiers: Respiratory failure complication: hypercapnia Qualified Code(s): J96.22 - Acute and chronic respiratory failure with hypercapnia Code(s): J96.20 - Acute and chronic respiratory failure, unspecified whether with hypoxia or hypercapnia Status: Acute Assessment and Plan: patient with history of severe COPD, on home oxygen 3-4 L and frequent admissions secondary to COPD exacerbation and respiratory failure was admitted on 07/02/2020 with increasing shortness of breath, pCO2 levels of 175 in the ED on the ABG, patient was noncompliant with BiPAP and was intubated on 07/02/2020 in the ER 07/04 extubated after successful weaning trial but with a borderline ABG - she was supposed to be on BiPAP at night but it was not initiated. Patient had worsening of her hypercarbia and was placed on BiPAP. - She appears much more awake and alert and following commands. Will continue using BiPAP p.r.n. and at night. discussed with nurse and RT - will try to wean off Precedex infusion - continue ceftriaxone and doxycycline, patient received 1 dose of azithromycin in the ED, patient is allergy to clarithromycin - continue bronchodilators, Solu-Medrol but decrease dose of steroids - sputum and blood cultures have been negative (2) COPD exacerbation: Code(s): J44.1 - Chronic obstructive pulmonary disease with (acute) exacerbation Status: Acute Assessment and Plan: steroids, bronchodilators and antibiotics (3) Acute electrocardiogram changes: Code(s): R94.31 - Abnormal electrocardiogram [ECG] [EKG] Status: Acute Assessment and Plan: ST elevation diffusely in the inferior and anterior leads, Similar to EKG in February 2020 - Dr Gloria, Evaluated the patient in the ER, started patient on aspirin and heparin infusion. Since the cardiology group ( Dr. [facility]) had seen the patient in February, care was transferred to the other cardiology group. - patient's serial troponin has stayed negative ruling out myocardial infarction. - patient seen by Dr. israel and discuss case with her. Does not recommend any further cardiac workup. - Discontinued heparin infusion - Echocardiogram on 03/09/2020: showed normal LV systolic function with EF 60-65%, RV chamber dimension is normal, no valvular abnormalities, pericardium has a thickened nodule appearance. (4) Alcohol abuse, daily use: Code(s): F10.10 - Alcohol abuse, uncomplicated Status: Chronic Assessment and Plan: patient also has a history of alcohol abuse - continue thiamine and folic acid - continue Precedex infusion (5) Suspected 2019 novel coronavirus infection: Code(s): Z20.828 - Contact with and (suspected) exposure to other viral communicable diseases Status: Ruled-out Assessment and Plan: COVID-19 ruled out. SARS-CoV-2 PCR was negative Patient was on Airborne, Droplet and Contact Isolation which now has been discontinued. (6) DVT prophylaxis: Code(s): Z29.9 - Encounter for prophylactic measures, unspecified Status: Acute Assessment and Plan: DVT prophylaxis: patient on subcutaneous Lovenox Lower extremity Dopplers were negative for DVT stress ulcer prophylaxis: Protonix (7) Hyponatremia: Code(s): E87.1 - Hypo-osmolality and hyponatremia Status: Acute Assessment and Plan: patient has chronic hyponatremia which is significantly worse this morning. renal ultrasound showed medical renal disease Patient was on heparin infusion which is in D5 water but is now discontinued I have started patient on normal saline and will monitor her sodium every 4 hours. if sodium level does not improve of further decreases, will consider starting 3% saline check TSH may need free water restriction if patient has a high intake. Monitor replaced low ma
[2020-07-05 11:25] LABS: Magnesium 1.4 mg/dL (1.6-2.3); Phosphorus 2.5 mg/dL (2.5-4.5)
[2020-07-05 11:28] LABS: Anion Gap 7.99999 mmol/L (8-16); Blood Urea Nitrogen 6 mg/dL (7-17); Calcium 7.8 mg/dL (8.4-10.2); Carbon Dioxide > 40 mmol/L (22-30); Chloride 70 mmol/L (98-107); Estimated CRCL calculation 121 ml/min; Estimated Glomerular Filt Rate > 60; Glucose 175 mg/dL (65-105); Sodium 118 mmol/L (137-145)
[2020-07-05] MEDS: POTASSIUM PHOS,M-BASIC-D-BASIC 20 MMOL in SODIUM CHLORIDE 0.9% IV 250 ML 62.5 MMOL IVPB (12:52)
[2020-07-05] MEDS: THIAMINE HCL 100 MG TABLET PO (12:52)
[2020-07-05] MEDS: ROFLUMILAST 500 MCG TABLET PO (12:53)
[2020-07-05] MEDS: MAGNESIUM SULF 2 GM/WATER 50ML 2 GM/50 ML BAG IVPB ×2 (12:55→13:45)
[2020-07-05] MEDS: SODIUM CHLORIDE 3% 250 ML 15 ML IV CONT (14:45)
[2020-07-05 15:25] LABS: Alveolar/Arterial O2 Gradient 51.9 mmHg; Fractional Inspired Oxygen 32 %; HCO3 ABG 43.8 mEq/l (22.0-26.0); Oxygen Content ABG 17.5 %vol (16.0-22.0); Oxygen Saturation ABG 90.4 % (95.0-100.0); PO2 ABG 68.3 mmHg (80.0-100.0); PO2 FiO2 Ratio Arterial Blood 2.13 %; Total Hemoglobin 13.7 g/dL (12.0-18.0); pH ABG 7.294 (7.350-7.450)
[2020-07-05 15:26] LABS: Device NASAL CANNULA; Modified Allen's Test Pass; PCO2 ABG 92.3 mmHg (35.0-45.0); Site Drawn RIGHT RADIAL
[2020-07-05 15:47] LABS: Anion Gap 4.99999 mmol/L (8-16); Blood Urea Nitrogen 2 mg/dL (7-17); Calcium 7.5 mg/dL (8.4-10.2); Carbon Dioxide > 40 mmol/L (22-30); Chloride 75 mmol/L (98-107); Estimated CRCL calculation 121 ml/min; Estimated Glomerular Filt Rate > 60; Glucose 236 mg/dL (65-105); Potassium 4.3 mmol/L (3.4-5.0); Sodium 120 mmol/L (137-145)
[2020-07-05 20:15] LABS: Anion Gap 2.99999 mmol/L (8-16); Calcium 7.8 mg/dL (8.4-10.2); Carbon Dioxide > 40 mmol/L (22-30); Chloride 81 mmol/L (98-107); Estimated CRCL calculation 121 ml/min; Estimated Glomerular Filt Rate > 60; Glucose 180 mg/dL (65-105); Potassium 3.8 mmol/L (3.4-5.0); Sodium 124 mmol/L (137-145)
[2020-07-05 20:16] LABS: Blood Urea Nitrogen < 2 mg/dL (7-17)
[2020-07-05] MEDS: MIRTAZAPINE 15 MG TABLET PO (21:58)
[2020-07-06] VITALS (23 sets, daily range): BP systolic 97–145; BP diastolic 58–84; PULSE 99–125; RESP 17–27; TEMP 36.3–37.3; O2SAT 91–100
[2020-07-06] MEDS: IPRATROPIUM BR 0.02% INH SOLN 0.5 MG/2.5 ML VIAL INHALATION ×4 (02:06→19:43)
[2020-07-06] MEDS: ALBUTEROL SULFATE NEB 2.5 MG/0.5 ML INH INHALATION ×4 (02:20→19:42)
[2020-07-06] MEDS: DEXTROSE 5% IN WATER 250 ML IVPB (02:47)
[2020-07-06] MEDS: ALPRAZolam (*CRX) 0.5 MG TABLET PO ×4 (03:49→23:39)
[2020-07-06 04:30] LABS: Anion Gap 5.99999 mmol/L (8-16); Calcium 8.2 mg/dL (8.4-10.2); Carbon Dioxide > 40 mmol/L (22-30); Chloride 82 mmol/L (98-107); Estimated CRCL calculation 121 ml/min; Estimated Glomerular Filt Rate > 60; Glucose 78 mg/dL (65-105); Sodium 128 mmol/L (137-145)
[2020-07-06 04:31] LABS: Blood Urea Nitrogen < 2 mg/dL (7-17)
[2020-07-06 06:37] LABS: Alveolar/Arterial O2 Gradient 67.8 mmHg; Base Excess ABG 17.3 mEq/l (+/-2.0); Carboxyhemoglobin 0.8 % THb (0-2.0); Fractional Inspired Oxygen 30 %; HCO3 ABG 45.4 mEq/l (22.0-26.0); Methemoglobin ABG 0.3 %THb (0-1.5); Oxygen Content ABG 16.9 %vol (16.0-22.0); Oxygen Saturation ABG 91.2 % (95.0-100.0); Oxyhemoglobin 90.9 % THb (90.0-100.0); PO2 ABG 62.1 mmHg (80.0-100.0); PO2 FiO2 Ratio Arterial Blood 2.07 %; Total Hemoglobin 13.2 g/dL (12.0-18.0); pH ABG 7.421 (7.350-7.450)
[2020-07-06 06:39] LABS: PCO2 ABG 71.5 mmHg (35.0-45.0)
[2020-07-06 06:40] LABS: Device BIPAP; Expiratory Pressure 5 cmH2O; Inspiratory Pressure 15 cmH2O; Modified Allen's Test Pass; Site Drawn RIGHT RADIAL
[2020-07-06 07:25] LABS: Hematocrit 37.6 % (37.0-47.0); Hemoglobin 12.5 g/dL (12.0-15.0); Mean Corpuscular HGB Conc 33.2 g/dl (32-36); Mean Corpuscular Hemoglobin 31.7 pg (26-34); Mean Corpuscular Volume 95.4 fl (80-100); Mean Platelet Volume 8.7 fl (7.4-10.4); Platelet Count Result 256 k/mm3 (150-375); Red Blood Count 3.94 M/mm3 (4.2-5.4); Red Cell Distribution Width 11.9 % (11.5-14.5); White Blood Count 9.2 K/mm3 (4.5-10.0)
[2020-07-06 07:43] LABS: Anion Gap 2.99999 mmol/L (8-16); Blood Urea Nitrogen 2 mg/dL (7-17); Calcium 8.2 mg/dL (8.4-10.2); Carbon Dioxide > 40 mmol/L (22-30); Chloride 83 mmol/L (98-107); Estimated CRCL calculation 113 ml/min; Estimated Glomerular Filt Rate > 60; Glucose 81 mg/dL (65-105); Phosphorus 2.1 mg/dL (2.5-4.5); Potassium 3.9 mmol/L (3.4-5.0); Sodium 126 mmol/L (137-145)
[2020-07-06] MEDS: predniSONE 20 MG TABLET 40 MG PO (08:33)
[2020-07-06] MEDS: FLUTICASONE/SALMETEROL 115-21 MCG INHALER 1 PUFF 2 PUFF INHALATION ×2 (08:33→19:43)
[2020-07-06] MEDS: POTASSIUM/PHOSPHORUS/SODIUM 1.5 GM PACKET 1 PACKET PO (08:33)
[2020-07-06] MEDS: PANTOPRAZOLE 40 MG TABLET PO (08:33)
[2020-07-06] MEDS: ENOXAPARIN 40 MG/0.4 ML SYRINGE SUB-Q (08:34)
[2020-07-06] MEDS: CYANOCOBALAMIN 1,000 MCG TABLET 1000 MCG PO (08:35)
[2020-07-06] MEDS: MONTELUKAST SODIUM 10 MG TABLET PO (08:36)
[2020-07-06] MEDS: ROFLUMILAST 500 MCG TABLET PO (08:36)
[2020-07-06] MEDS: FOLIC ACID 1 MG TABLET PO (08:37)
[2020-07-06] MEDS: THIAMINE HCL 100 MG TABLET PO (08:37)
--- NOTE | 2020-07-06 08:47 | WPDINTPN ---
Progress Note: A&P Assessment and Plan (1) Acute and chronic respiratory failure: Qualifiers: Respiratory failure complication: hypercapnia Qualified Code(s): J96.22 - Acute and chronic respiratory failure with hypercapnia Code(s): J96.20 - Acute and chronic respiratory failure, unspecified whether with hypoxia or hypercapnia Status: Acute Assessment and Plan: patient with history of severe COPD, on home oxygen 3-4 L and frequent admissions secondary to COPD exacerbation and respiratory failure was admitted on 07/02/2020 with increasing shortness of breath, pCO2 levels of 175 in the ED on the ABG, patient was noncompliant with BiPAP and was intubated on 07/02/2020 in the ER 07/04 extubated after successful weaning trial but with a borderline ABG - ABG reviewed and shows hypercarbia probably close to baseline since she is awake and alert although not fully oriented - continue BiPAP at night and p.r.n. during the day - continue ceftriaxone and doxycycline for 7 day course - continue bronchodilators, Solu-Medrol changed to p.o. prednisone - sputum and blood cultures have been negative (2) COPD exacerbation: Code(s): J44.1 - Chronic obstructive pulmonary disease with (acute) exacerbation Status: Acute Assessment and Plan: steroids, bronchodilators and antibiotics (3) Acute electrocardiogram changes: Code(s): R94.31 - Abnormal electrocardiogram [ECG] [EKG] Status: Acute Assessment and Plan: ST elevation diffusely in the inferior and anterior leads, Similar to EKG in February 2020 - Dr Gloria, Evaluated the patient in the ER, started patient on aspirin and heparin infusion. Since the cardiology group ( [facility]) had seen the patient in February, care was transferred to the other cardiology group. - patient's serial troponin has stayed negative ruling out myocardial infarction. - patient seen by Dr. israel and discuss case with her. Does not recommend any further cardiac workup. - Discontinued heparin infusion - Echocardiogram on 03/09/2020: showed normal LV systolic function with EF 60-65%, RV chamber dimension is normal, no valvular abnormalities, pericardium has a thickened nodule appearance. (4) Alcohol abuse, daily use: Code(s): F10.10 - Alcohol abuse, uncomplicated Status: Chronic Assessment and Plan: patient also has a history of alcohol abuse - continue thiamine and folic acid patient on home dose of p.r.n. low-dose Xanax for anxiety (5) Suspected 2019 novel coronavirus infection: Code(s): Z20.828 - Contact with and (suspected) exposure to other viral communicable diseases Status: Ruled-out Assessment and Plan: COVID-19 ruled out. SARS-CoV-2 PCR was negative Patient was on Airborne, Droplet and Contact Isolation which now has been discontinued. (6) DVT prophylaxis: Code(s): Z29.9 - Encounter for prophylactic measures, unspecified Status: Acute Assessment and Plan: DVT prophylaxis: patient on subcutaneous Lovenox Lower extremity Dopplers were negative for DVT stress ulcer prophylaxis: Protonix (7) Hyponatremia: Code(s): E87.1 - Hypo-osmolality and hyponatremia Status: Acute Assessment and Plan: patient has chronic hyponatremia which was significantly worse yesterday. renal ultrasound showed medical renal disease Patient was on heparin infusion which is in D5 water but is now discontinued. patient was started on normal saline and her sodium was monitor every 4 hours. sodium level did not improve. Patient was given 1 L normal saline bolus and started on 3% saline at 15 mL/hr. BMP checked q.4 hours. Sodium improved to 128 and 3% saline was stopped and patient was given 250 mL of D5 water. Sodium is at 126 at this time which is an acceptable level. Patient currently is off of all fluids. Will recheck BMP later in the day. Normal TSH repla
--- NOTE | 2020-07-06 11:20 | PCDIET ---
Nutrition Follow-Up Complete: Nutrition Diagnosis: Inadequate oral intake related to oral intubation as evidenced by NPO status. Nutrition Goal: Patient to meet estimated nutritional needs. Goal in progress. Patient reports tolerating full liquid diet with average intake of 50% on 07/05/20. MD plans to advance diet today. Not taking Ensure Compact, but agreeable to try Frozen Nutritional Treat (300kcal, 9g protein). Recommend adding twice daily. Last recorded weight is 31.6 kg which is down from last review. Bowel Motility: BM x 3 on 07/05/20. Labs Reviewed: BUN (2), Cr (0.2), Na (126), Ca (8.2) Meds Noted: Albuterol, Rocephin, Vitamin B12, Doxycycline, Drisdol, Folic Acid, Atrovent, Remeron, Protonix, Prednisone, Advair, Vitamin B1 Additional Notes: Coccyx reddened; no open areas documented. Will continue to monitor with same goal. Nutrition Monitoring and Evaluation: Follow up every 3 days. Follow daily in ICU rounds.
--- NOTE | 2020-07-06 12:57 | PM.IMPN ---
Progress Note: A&P Assessment and Plan (1) Acute on chronic respiratory failure with hypoxia and hypercapnia: Code(s): J96.21 - Acute and chronic respiratory failure with hypoxia; J96.22 - Acute and chronic respiratory failure with hypercapnia Status: Acute Assessment and Plan: Patient with respiratory failure requiring intubated on admission. Normally wears O2 at 1L. [place] related to COPD exacerbation. ABG showing 7.25/112/307 and placed on BiPAP. Continue need BiPAP at night and with naps. Continue steroids, antibiotics, and updraft treatments. Aggressive pulmonary toilet. Continue PT/OT. Discussed with inclusion manager. (2) COPD exacerbation: Code(s): J44.1 - Chronic obstructive pulmonary disease with (acute) exacerbation Status: Acute Assessment and Plan: As above, chest x-ray reviewed on 07/04 showing hyperinflation and scarring. Empirically placed on antibiotics Day 5. Continue updrafts and IV steroids. Steroids being weaned (3) ST elevation on ECG: Code(s): R94.31 - Abnormal electrocardiogram [ECG] [EKG] Status: Acute Assessment and Plan: Initially felt ST changes were acute but had similar findings on EKG when she presented with respiratory failure in February 2020. Echo 07/02/20 showing normal LV systolic function, Grade I diastolic dysfunction and normal wall motion. She does have elevated RAP and dilated IVC with normal RA and RV dimensions. Troponins drawn and negative x3. DD positive at 1.4. LE doppler negative. Appreciate Cardiology input. (4) Alcohol abuse, daily use: Code(s): F10.10 - Alcohol abuse, uncomplicated Status: Chronic Assessment and Plan: History of daily alcohol consumption at least 2 beers a day. Currently on Thiamine and Folate. Continue to monitor for signs or symptoms of withdrawal. (5) Suspected 2019 novel coronavirus infection: Code(s): Z20.828 - Contact with and (suspected) exposure to other viral communicable diseases Status: Ruled-out Assessment and Plan: COVID test is negative. (6) Tobacco abuse: Code(s): Z72.0 - Tobacco use Status: Chronic Assessment and Plan: Tobacco cessation a must. This was re-enforced today. (7) Hyponatremia: Code(s): E87.1 - Hypo-osmolality and hyponatremia Status: Acute Assessment and Plan: Na 133 on admission but dropped to 120. Continue to hold SSRI. Doris level 94. FENa 3%. Could be post-renal. IV fluids started. She did received 3% saline. Renal US showing mildly hyperechoic renal cortices, medical renal disease. 3% was stopped when Na 128 and she did receive free water. Off all fluids now. Contineu to follow (8) DVT prophylaxis: Code(s): Z29.9 - Encounter for prophylactic measures, unspecified Status: Acute Assessment and Plan: Lovenox Subjective Date/time seen: 07/06/20 12:57 Interval history: Date of service 07/05 54-year-old female with history of COPD, alcohol and tobacco abuse here for acute on chronic respiratory failure. Patient intubated on admission and extubated on 07/04/20. Patient alert but confused. She feels well. No issues overnight. Exam Narrative: Exam Narrative: AF 97.5 112/81 112 17 97% MV Gen - NARD sitting up in bed Chest - bibasilar inspiratory faint crackled, nml RR CV - RRR S1/S2; Telemetry showngi no significnat dysrhytmias but she is noted to be tachycardic Abd - Soft. NT, mildly protuberant, +BS Ext - no pedal edema Neuro - alert, oriented to month only but did eventually know location. Skin - Warm and dry Objective Data Vital Signs Vital Signs: Vital Signs - 24 hr 07/05/20 14:00 07/05/20 15:25 07/05/20 15:35 Temperature Pulse Rate 99 78 79 Respiratory Rate 21 H 20 20 Blood Pressure 109/78 Pulse Oximetry 92 100 07/05/20 16:00 07/05/20 17:14 07/05/20 18:00 Temperature 98.2 F Pulse Rate 101 H
[2020-07-06 17:18] LABS: Anion Gap 8.99999 mmol/L (8-16); Blood Urea Nitrogen 7 mg/dL (7-17); Calcium 8.2 mg/dL (8.4-10.2); Carbon Dioxide > 40 mmol/L (22-30); Chloride 77 mmol/L (98-107); Estimated CRCL calculation 82 ml/min; Estimated Glomerular Filt Rate > 60; Glucose 160 mg/dL (65-105); Potassium 3.9 mmol/L (3.4-5.0); Sodium 126 mmol/L (137-145)
[2020-07-06] MEDS: MIRTAZAPINE 15 MG TABLET PO (22:04)
[2020-07-07] VITALS (25 sets, daily range): BP systolic 78–125; BP diastolic 58–93; PULSE 89–132; RESP 16–29; TEMP 36.6–37.3; O2SAT 91–100
[2020-07-07] MEDS: ALBUTEROL SULFATE NEB 2.5 MG/0.5 ML INH INHALATION ×4 (01:45→19:39)
[2020-07-07] MEDS: IPRATROPIUM BR 0.02% INH SOLN 0.5 MG/2.5 ML VIAL INHALATION ×4 (01:46→19:39)
[2020-07-07 04:33] LABS: Hematocrit 36.9 % (37.0-47.0); Hemoglobin 11.8 g/dL (12.0-15.0); Mean Corpuscular Hemoglobin 30.8 pg (26-34); Mean Corpuscular Volume 96.3 fl (80-100); Mean Platelet Volume 8.7 fl (7.4-10.4); Platelet Count Result 312 k/mm3 (150-375); Red Blood Count 3.83 M/mm3 (4.2-5.4); Red Cell Distribution Width 11.9 % (11.5-14.5); White Blood Count 11.6 K/mm3 (4.5-10.0)
[2020-07-07 04:56] LABS: Anion Gap 4.99999 mmol/L (8-16); Blood Urea Nitrogen 5 mg/dL (7-17); Calcium 8.6 mg/dL (8.4-10.2); Carbon Dioxide > 40 mmol/L (22-30); Chloride 82 mmol/L (98-107); Estimated CRCL calculation 113 ml/min; Estimated Glomerular Filt Rate > 60; Glucose 74 mg/dL (65-105); Magnesium 1.9 mg/dL (1.6-2.3); Phosphorus 2.1 mg/dL (2.5-4.5); Potassium 4.1 mmol/L (3.4-5.0); Sodium 127 mmol/L (137-145)
[2020-07-07] MEDS: ALPRAZolam (*CRX) 0.5 MG TABLET PO ×3 (06:34→23:08)
[2020-07-07] MEDS: THIAMINE HCL 100 MG TABLET PO (08:27)
[2020-07-07] MEDS: POTASSIUM/PHOSPHORUS/SODIUM 1.5 GM PACKET 1 PACKET PO (08:27)
[2020-07-07] MEDS: FLUTICASONE/SALMETEROL 115-21 MCG INHALER 1 PUFF 2 PUFF INHALATION ×2 (09:02→19:39)
[2020-07-07] MEDS: predniSONE 20 MG TABLET 40 MG PO (09:13)
[2020-07-07] MEDS: FOLIC ACID 1 MG TABLET PO (09:14)
[2020-07-07] MEDS: MONTELUKAST SODIUM 10 MG TABLET PO (09:14)
[2020-07-07] MEDS: PANTOPRAZOLE 40 MG TABLET PO (09:14)
[2020-07-07] MEDS: CYANOCOBALAMIN 1,000 MCG TABLET 1000 MCG PO (09:14)
[2020-07-07] MEDS: ENOXAPARIN 40 MG/0.4 ML SYRINGE SUB-Q (09:14)
[2020-07-07] MEDS: ROFLUMILAST 500 MCG TABLET PO (09:15)
--- NOTE | 2020-07-07 09:38 | WPDINTPN ---
Progress Note: A&P Assessment and Plan (1) Acute and chronic respiratory failure: Qualifiers: Respiratory failure complication: hypercapnia Qualified Code(s): J96.22 - Acute and chronic respiratory failure with hypercapnia Code(s): J96.20 - Acute and chronic respiratory failure, unspecified whether with hypoxia or hypercapnia Status: Acute Assessment and Plan: patient with history of severe COPD, on home oxygen 3-4 L and frequent admissions secondary to COPD exacerbation and respiratory failure was admitted on 07/02/2020 with increasing shortness of breath, pCO2 levels of 175 in the ED on the ABG, patient was noncompliant with BiPAP and was intubated on 07/02/2020 in the ER 07/04 extubated after successful weaning trial but with a borderline ABG - ABG reviewed and shows hypercarbia probably close to baseline since she is awake and alert although not fully oriented - continue BiPAP at night and p.r.n. during the day - continue ceftriaxone and doxycycline for 7 day course which will complete 07/08 - continue bronchodilators, p.o. prednisone - sputum and blood cultures have been negative (2) COPD exacerbation: Code(s): J44.1 - Chronic obstructive pulmonary disease with (acute) exacerbation Status: Acute Assessment and Plan: steroids, bronchodilators and antibiotics (3) Acute electrocardiogram changes: Code(s): R94.31 - Abnormal electrocardiogram [ECG] [EKG] Status: Acute Assessment and Plan: ST elevation diffusely in the inferior and anterior leads, Similar to EKG in February 2020 - Dr Gloria, Evaluated the patient in the ER, started patient on aspirin and heparin infusion. Since the cardiology group ( [facility]) had seen the patient in February, care was transferred to the other cardiology group. - patient's serial troponin has stayed negative ruling out myocardial infarction. - patient seen by Dr. israel and discuss case with her. Does not recommend any further cardiac workup. - Discontinued heparin infusion - Echocardiogram on 03/09/2020: showed normal LV systolic function with EF 60-65%, RV chamber dimension is normal, no valvular abnormalities, pericardium has a thickened nodule appearance. (4) Alcohol abuse, daily use: Code(s): F10.10 - Alcohol abuse, uncomplicated Status: Chronic Assessment and Plan: patient also has a history of alcohol abuse - continue thiamine and folic acid patient on home dose of p.r.n. low-dose Xanax for anxiety (5) Suspected 2019 novel coronavirus infection: Code(s): Z20.828 - Contact with and (suspected) exposure to other viral communicable diseases Status: Ruled-out Assessment and Plan: COVID-19 ruled out. SARS-CoV-2 PCR was negative Patient was on Airborne, Droplet and Contact Isolation which now has been discontinued. (6) DVT prophylaxis: Code(s): Z29.9 - Encounter for prophylactic measures, unspecified Status: Acute Assessment and Plan: DVT prophylaxis: patient on subcutaneous Lovenox Lower extremity Dopplers were negative for DVT stress ulcer prophylaxis: Protonix (7) Hyponatremia: Code(s): E87.1 - Hypo-osmolality and hyponatremia Status: Acute Assessment and Plan: patient has chronic hyponatremia which was significantly worse yesterday. renal ultrasound showed medical renal disease Patient was on heparin infusion which is in D5 water but is now discontinued. 07/04 patient was started on normal saline and her sodium was monitor every 4 hours. sodium level did not improve. Patient was given 1 L normal saline bolus and started on 3% saline at 15 mL/hr. BMP checked q.4 hours. 07/05 Sodium improved to 128 and 3% saline was stopped and patient was given 250 mL of D5 water. Sodium is at 126 at this time which is an acceptable level. Patient currently is off of all fluids. Will recheck BMP later in the day. 07/06 so
--- NOTE | 2020-07-07 13:38 | PM.IMPN ---
Progress Note: A&P Assessment and Plan (1) Acute on chronic respiratory failure with hypoxia and hypercapnia: Code(s): J96.21 - Acute and chronic respiratory failure with hypoxia; J96.22 - Acute and chronic respiratory failure with hypercapnia Status: Acute Assessment and Plan: Patient with respiratory failure requiring intubated on admission. Normally wears O2 at 1L. [place] related to COPD exacerbation. ABG showing 7.25/112/307 and placed on BiPAP. Continues to need BiPAP at night and with naps. Continue steroids, antibiotics, and updraft treatments. Aggressive pulmonary toilet. Continue PT/OT. Discussed with clay modeler. (2) COPD exacerbation: Code(s): J44.1 - Chronic obstructive pulmonary disease with (acute) exacerbation Status: Acute Assessment and Plan: As above, chest x-ray reviewed on 07/04 showing hyperinflation and scarring. Empirically placed on antibiotics Day 6. Continue updrafts and IV steroids. Steroids being weaned (3) ST elevation on ECG: Code(s): R94.31 - Abnormal electrocardiogram [ECG] [EKG] Status: Acute Assessment and Plan: Initially felt ST changes were acute but had similar findings on EKG when she presented with respiratory failure in February 2020. Echo 07/02/20 showing normal LV systolic function, Grade I diastolic dysfunction and normal wall motion. She does have elevated RAP and dilated IVC with normal RA and RV dimensions. Troponins negative x3. DD positive at 1.4. LE doppler negative. Appreciate Cardiology input. (4) Alcohol abuse, daily use: Code(s): F10.10 - Alcohol abuse, uncomplicated Status: Chronic Assessment and Plan: History of daily alcohol consumption at least 2 beers a day. Currently on Thiamine and Folate. No evidence of withdrawal. Continue to monitor for signs or symptoms of withdrawal. (5) Suspected 2019 novel coronavirus infection: Code(s): Z20.828 - Contact with and (suspected) exposure to other viral communicable diseases Status: Ruled-out Assessment and Plan: COVID test is negative. (6) Tobacco abuse: Code(s): Z72.0 - Tobacco use Status: Chronic Assessment and Plan: TTobacco cessation a must. This was re-enforced today. (7) Hyponatremia: Code(s): E87.1 - Hypo-osmolality and hyponatremia Status: Acute Assessment and Plan: Na 133 on admission but dropped to 120. Doris level 94. FENa 3%. Could be post-renal. IV fluids started. She did received 3% saline. Renal US showing mildly hyperechoic renal cortices, medical renal disease. 3% was stopped when Na 128 and she did receive free water. Off all fluids now. Na 127 today. Continue to hold SSRI. Continue to follow (8) DVT prophylaxis: Code(s): Z29.9 - Encounter for prophylactic measures, unspecified Status: Acute Assessment and Plan: Lovenox Subjective Date/time seen: 07/07/20 13:38 Interval history: Date of service 07/07 54-year-old female with history of COPD, alcohol and tobacco abuse here for acute on chronic respiratory failure. Patient intubated on admission and extubated on 07/04/20. Patient feels well. She ate well last night. Having diarrhea now. Complains of back pain. Up walking in the halls with therapy. Exam Narrative: Exam Narrative: AF 98.1 106/93 125 22 97% 3L Gen - NARD sitting up at side of bed Chest - very distant BS CV - RRR S1/S2; Telemetry showing sinus tach, with episode of regular narrow complex tachycardia possibly ATach Abd - Soft. NT/ND, +BS Ext - no pedal edema Psych - nml mood and affect; alert, pleasant and cooperative Skin - Warm and dry Objective Data Vital Signs Vital Signs: Vital Signs - 24 hr 07/06/20 14:00 07/06/20 14:19 07/06/20 14:30 Temperature Pulse Rate 113 H 118 H 108 H Respiratory Rate 23 H 27 H 24 H Blood Pressure 111/65 Pulse Oximetry 07/06/20 16:00 09
[2020-07-07] MEDS: MIRTAZAPINE 15 MG TABLET PO (21:29)
[2020-07-08] VITALS (26 sets, daily range): BP systolic 94–109; BP diastolic 51–71; PULSE 94–139; RESP 15–27; TEMP 36.3–37.2; O2SAT 92–100
[2020-07-08] MEDS: ALBUTEROL SULFATE NEB 2.5 MG/0.5 ML INH INHALATION ×3 (01:54→19:08)
[2020-07-08] MEDS: IPRATROPIUM BR 0.02% INH SOLN 0.5 MG/2.5 ML VIAL INHALATION ×3 (01:54→19:08)
[2020-07-08] MEDS: ALPRAZolam (*CRX) 0.5 MG TABLET PO ×3 (05:06→20:46)
--- NOTE | 2020-07-08 08:28 | WPDINTPN ---
Progress Note: A&P Assessment and Plan (1) Acute and chronic respiratory failure: Qualifiers: Respiratory failure complication: hypercapnia Qualified Code(s): J96.22 - Acute and chronic respiratory failure with hypercapnia Code(s): J96.20 - Acute and chronic respiratory failure, unspecified whether with hypoxia or hypercapnia Status: Acute Assessment and Plan: patient with history of severe COPD, on home oxygen 3-4 L and frequent admissions secondary to COPD exacerbation and respiratory failure was admitted on 07/02/2020 with increasing shortness of breath, pCO2 levels of 175 in the ED on the ABG, patient was noncompliant with BiPAP and was intubated on 07/02/2020 in the ER 07/04 extubated after successful weaning trial but with a borderline ABG - continue BiPAP at night and p.r.n. during the day - continue ceftriaxone and doxycycline for 7 day course which will complete 07/08 - continue bronchodilators, p.o. prednisone - sputum and blood cultures have been negative (2) COPD exacerbation: Code(s): J44.1 - Chronic obstructive pulmonary disease with (acute) exacerbation Status: Acute Assessment and Plan: steroids, bronchodilators and antibiotics (3) Acute electrocardiogram changes: Code(s): R94.31 - Abnormal electrocardiogram [ECG] [EKG] Status: Acute Assessment and Plan: ST elevation diffusely in the inferior and anterior leads, Similar to EKG in February 2020 - Dr Gloria, Evaluated the patient in the ER, started patient on aspirin and heparin infusion. Since the cardiology group ( [facility]) had seen the patient in February, care was transferred to the other cardiology group. - patient's serial troponin has stayed negative ruling out myocardial infarction. - patient seen by Dr. israel and discuss case with her. Does not recommend any further cardiac workup. - Discontinued heparin infusion - Echocardiogram on 03/09/2020: showed normal LV systolic function with EF 60-65%, RV chamber dimension is normal, no valvular abnormalities, pericardium has a thickened nodule appearance. (4) Alcohol abuse, daily use: Code(s): F10.10 - Alcohol abuse, uncomplicated Status: Chronic Assessment and Plan: patient also has a history of alcohol abuse - continue thiamine and folic acid patient on home dose of p.r.n. low-dose Xanax for anxiety (5) Suspected 2019 novel coronavirus infection: Code(s): Z20.828 - Contact with and (suspected) exposure to other viral communicable diseases Status: Ruled-out Assessment and Plan: COVID-19 ruled out. SARS-CoV-2 PCR was negative Patient was on Airborne, Droplet and Contact Isolation which now has been discontinued. (6) DVT prophylaxis: Code(s): Z29.9 - Encounter for prophylactic measures, unspecified Status: Acute Assessment and Plan: DVT prophylaxis: patient on subcutaneous Lovenox Lower extremity Dopplers were negative for DVT stress ulcer prophylaxis: Protonix (7) Hyponatremia: Code(s): E87.1 - Hypo-osmolality and hyponatremia Status: Acute Assessment and Plan: patient has chronic hyponatremia which was significantly worse yesterday. renal ultrasound showed medical renal disease Patient was on heparin infusion which is in D5 water but is now discontinued. 07/04 patient was started on normal saline and her sodium was monitor every 4 hours. sodium level did not improve. Patient was given 1 L normal saline bolus and started on 3% saline at 15 mL/hr. BMP checked q.4 hours. 07/05 Sodium improved to 128 and 3% saline was stopped and patient was given 250 mL of D5 water. Sodium is at 126 at this time which is an acceptable level. Patient currently is off of all fluids. Will recheck BMP later in the day. 07/06 sodium continues to remain stable and will monitor no further intervention at this time Normal TSH BMP pending Addition
[2020-07-08 08:59] LABS: Anion Gap 2.99999 mmol/L (8-16); Blood Urea Nitrogen 10 mg/dL (7-17); Calcium 8.2 mg/dL (8.4-10.2); Carbon Dioxide > 40 mmol/L (22-30); Chloride 85 mmol/L (98-107); Estimated CRCL calculation 122 ml/min; Estimated Glomerular Filt Rate > 60; Glucose 77 mg/dL (65-105); Potassium 4.3 mmol/L (3.4-5.0); Sodium 128 mmol/L (137-145)
[2020-07-08] MEDS: THIAMINE HCL 100 MG TABLET PO (09:29)
[2020-07-08] MEDS: FOLIC ACID 1 MG TABLET PO (09:31)
[2020-07-08] MEDS: ROFLUMILAST 500 MCG TABLET PO (09:31)
[2020-07-08] MEDS: predniSONE 20 MG TABLET 40 MG PO (09:31)
[2020-07-08] MEDS: MONTELUKAST SODIUM 10 MG TABLET PO (09:32)
[2020-07-08] MEDS: CYANOCOBALAMIN 1,000 MCG TABLET 1000 MCG PO (09:35)
[2020-07-08] MEDS: ENOXAPARIN 40 MG/0.4 ML SYRINGE SUB-Q (09:35)
[2020-07-08] MEDS: PANTOPRAZOLE 40 MG TABLET PO (09:35)
--- NOTE | 2020-07-08 15:05 | PC.NURSE ---
This patient, Esther Brink, was received from ICU-8 into 232 on 07/08/20 at 1505. Personal belongings list checked and signed. Patient/family oriented to unit policies and routines
--- NOTE | 2020-07-08 15:48 | PM.IMPN ---
Progress Note: A&P Assessment and Plan (1) Acute on chronic respiratory failure with hypoxia and hypercapnia: Code(s): J96.21 - Acute and chronic respiratory failure with hypoxia; J96.22 - Acute and chronic respiratory failure with hypercapnia Status: Acute Assessment and Plan: Patient with respiratory failure requiring intubated on admission. Normally wears O2 at 1L. [place] related to COPD exacerbation. ABG showing 7.25/112/307 and placed on BiPAP. Continues to need BiPAP at night and with naps. Continue steroids, antibiotics, and updraft treatments. Aggressive pulmonary toilet. Continue PT/OT. Appreciate dob[employer] loom chain pegger input. Okay to move to IMU. Down to 2L. Home O2 evaluation prior to discharge. (2) COPD exacerbation: Code(s): J44.1 - Chronic obstructive pulmonary disease with (acute) exacerbation Status: Acute Assessment and Plan: As above, chest x-ray reviewed on 07/04 showing hyperinflation and scarring. Empirically placed on antibiotics Day 7. Continue updrafts and IV steroids. Steroids being weaned (3) ST elevation on ECG: Code(s): R94.31 - Abnormal electrocardiogram [ECG] [EKG] Status: Acute Assessment and Plan: Initially felt ST changes were acute but had similar findings on EKG when she presented with respiratory failure in February 2020. Echo 07/02/20 showing normal LV systolic function, Grade I diastolic dysfunction and normal wall motion. She does have elevated RAP and dilated IVC with normal RA and RV dimensions. Troponins negative x3. DD positive at 1.4. LE doppler negative. Appreciate Cardiology input. (4) Alcohol abuse, daily use: Code(s): F10.10 - Alcohol abuse, uncomplicated Status: Chronic Assessment and Plan: History of daily alcohol consumption at least 2 beers a day. Currently on Thiamine and Folate. No evidence of withdrawal. Continue to monitor for signs or symptoms of withdrawal. (5) Suspected 2019 novel coronavirus infection: Code(s): Z20.828 - Contact with and (suspected) exposure to other viral communicable diseases Status: Ruled-out Assessment and Plan: COVID test is negative. (6) Tobacco abuse: Code(s): Z72.0 - Tobacco use Status: Chronic Assessment and Plan: Tobacco cessation a must. This was re-enforced today. (7) Hyponatremia: Code(s): E87.1 - Hypo-osmolality and hyponatremia Status: Acute Assessment and Plan: Na 133 on admission but dropped to 120. Doris level 94. FENa 3%. Could be post-renal. IV fluids started. She did received 3% saline. Renal US showing mildly hyperechoic renal cortices, medical renal disease. 3% was stopped when Na 128 and she did receive free water. Off all fluids now. Na 128 today. Continue to hold SSRI. Continue to follow (8) DVT prophylaxis: Code(s): Z29.9 - Encounter for prophylactic measures, unspecified Status: Acute Assessment and Plan: Lovenox Subjective Date/time seen: 07/08/20 15:48 Interval history: Date of service 07/08 54-year-old female with history of COPD, alcohol and tobacco abuse here for acute on chronic respiratory failure. Patient intubated on admission and extubated on 07/04/20. Patient alert but confused. Patient had an episode while sitting in the chair earlier this morning. Per RN, patient was asleep and noted to be having muscle jerking. This has been noted before when patient sleeps. She was awoken and was not post-ictal. She is eating okay. Slept off and on. No n/v. No CP. Exam Narrative: Exam Narrative: AF 97.3 94/51 111 20 99% 2L Gen - NARD lying semi-recumbent in cardiac chair Chest - very distant, clear BS; nml RR CV - RRR S1/S2; Telemetry showing no significant dysrhythmias Abd - soft, NT/ND,+BS Ext - no pedal edema Psych - nml mood and affect; alert but confused Skin - thin skin with multiple ecchymosis including right lower l
[2020-07-08] MEDS: FLUTICASONE/SALMETEROL 115-21 MCG INHALER 1 PUFF 2 PUFF INHALATION (19:08)
[2020-07-08] MEDS: MIRTAZAPINE 15 MG TABLET PO (20:46)
[2020-07-09] VITALS (25 sets, daily range): BP systolic 90–115; BP diastolic 50–69; PULSE 98–116; RESP 13–22; TEMP 36.6–37.2; O2SAT 75–100
[2020-07-09] MEDS: IPRATROPIUM BR 0.02% INH SOLN 0.5 MG/2.5 ML VIAL INHALATION ×4 (01:11→20:17)
[2020-07-09] MEDS: ALBUTEROL SULFATE NEB 2.5 MG/0.5 ML INH INHALATION ×4 (01:11→20:17)
[2020-07-09 05:06] LABS: Basophils Percent Auto 0.2 % (0.2-1.2); Eosinophils Absolute Auto 0.1 K/mm3 (0-0.3); Eosinophils Percent Auto 0.9 % (0-4.4); Hematocrit 34.1 % (37.0-47.0); Hemoglobin 10.5 g/dL (12.0-15.0); Immature Granulocyte Absolute 0.03 K/mm3 (0.00-0.031); Immature Granulocyte Percent A 0.3 % (0-0.5); Lymphocytes Absolute Auto 1.26 K/mm3 (0.9-3.2); Lymphocytes Percent Auto 11.7 % (18.3-44.2); Mean Corpuscular HGB Conc 30.8 g/dl (32-36); Mean Corpuscular Hemoglobin 30.7 pg (26-34); Mean Corpuscular Volume 99.7 fl (80-100); Mean Platelet Volume 8.5 fl (7.4-10.4); Monocytes Absolute Auto 1.1 K/mm3 (0.1-0.6); Monocytes Percent Auto 10.2 % (2.6-8.5); Neutrophils Absolute Auto 8.3 K/mm3 (1.3-6.7); Neutrophils Percent Auto 76.7 % (45.5-73.1); Platelet Count Result 384 k/mm3 (150-375); Red Blood Count 3.42 M/mm3 (4.2-5.4); Red Cell Distribution Width 12.2 % (11.5-14.5); White Blood Count 10.8 K/mm3 (4.5-10.0)
[2020-07-09 05:20] LABS: Albumin Level 3.1 g/dL (3.5-5.1); Anion Gap 5.99999 mmol/L (8-16); Blood Urea Nitrogen 12 mg/dL (7-17); Calcium 8.7 mg/dL (8.4-10.2); Carbon Dioxide > 40 mmol/L (22-30); Chloride 85 mmol/L (98-107); Estimated CRCL calculation 88 ml/min; Estimated Glomerular Filt Rate > 60; Glucose 91 mg/dL (65-105); Magnesium 1.7 mg/dL (1.6-2.3); Phosphorus 3.6 mg/dL (2.5-4.5); Potassium 4.2 mmol/L (3.4-5.0); Sodium 131 mmol/L (137-145)
[2020-07-09] MEDS: predniSONE 10 MG TABLET 30 MG PO (08:27)
[2020-07-09] MEDS: PANTOPRAZOLE 40 MG TABLET PO (08:27)
[2020-07-09] MEDS: CYANOCOBALAMIN 1,000 MCG TABLET 1000 MCG PO (08:27)
[2020-07-09] MEDS: THIAMINE HCL 100 MG TABLET PO (08:28)
[2020-07-09] MEDS: ROFLUMILAST 500 MCG TABLET PO (08:28)
[2020-07-09] MEDS: FOLIC ACID 1 MG TABLET PO (08:28)
[2020-07-09] MEDS: MONTELUKAST SODIUM 10 MG TABLET PO (08:28)
[2020-07-09] MEDS: ENOXAPARIN 40 MG/0.4 ML SYRINGE SUB-Q (08:28)
[2020-07-09] MEDS: FLUTICASONE/SALMETEROL 115-21 MCG INHALER 1 PUFF 2 PUFF INHALATION ×2 (08:39→20:18)
[2020-07-09] MEDS: ALPRAZolam (*CRX) 0.5 MG TABLET PO ×2 (09:02→16:23)
--- NOTE | 2020-07-09 09:57 | PM.IMPN ---
Progress Note: A&P Assessment and Plan (1) Acute on chronic respiratory failure with hypoxia and hypercapnia: Code(s): J96.21 - Acute and chronic respiratory failure with hypoxia; J96.22 - Acute and chronic respiratory failure with hypercapnia Status: Acute Assessment and Plan: Patient with respiratory failure requiring intubated on admission. Normally wears O2 at 1L. [place] related to COPD exacerbation. ABG showing 7.25/112/307 and placed on BiPAP. Continues to need BiPAP at night and with naps. Continue steroids (tapering dose, prednisone 30 mg today), antibiotics (day 8), and updraft treatments. Aggressive pulmonary toilet. Continue PT/OT. Down to 2L. Home O2 evaluation prior to discharge. CC following. Likely Home with HH. (2) COPD exacerbation: Code(s): J44.1 - Chronic obstructive pulmonary disease with (acute) exacerbation Status: Acute Assessment and Plan: As above, chest x-ray reviewed on 07/04 showing hyperinflation and scarring. Empirically placed on antibiotics Day 8. Continue updrafts and IV steroids. Steroids being weaned (prednisone 30 mg today) (3) ST elevation on ECG: Code(s): R94.31 - Abnormal electrocardiogram [ECG] [EKG] Status: Acute Assessment and Plan: Initially felt ST changes were acute but had similar findings on EKG when she presented with respiratory failure in February 2020. Echo 07/02/20 showing normal LV systolic function, Grade I diastolic dysfunction and normal wall motion. She does have elevated RAP and dilated IVC with normal RA and RV dimensions. Troponins negative x3. DD positive at 1.4. LE doppler negative. Appreciate Cardiology input. (4) Alcohol abuse, daily use: Code(s): F10.10 - Alcohol abuse, uncomplicated Status: Chronic Assessment and Plan: History of daily alcohol consumption at least 2 beers a day. Currently on Thiamine and Folate. Tremulous today. No other evidence of withdrawal. Continue to monitor for signs or symptoms of withdrawal. (5) Suspected 2019 novel coronavirus infection: Code(s): Z20.828 - Contact with and (suspected) exposure to other viral communicable diseases Status: Ruled-out Assessment and Plan: COVID test is negative. (6) Tobacco abuse: Code(s): Z72.0 - Tobacco use Status: Chronic Assessment and Plan: Tobacco cessation a must. This was re-enforced during stay (7) Hyponatremia: Code(s): E87.1 - Hypo-osmolality and hyponatremia Status: Acute Assessment and Plan: Na 133 on admission but dropped to 120. Doris level 94. FENa 3%. Could be post-renal. IV fluids started. She did received 3% saline. Renal US showing mildly hyperechoic renal cortices, medical renal disease. 3% was stopped when Na 128 and she did receive free water. Off all fluids now. Na 131 today. Continue to hold SSRI. Continue to follow (8) DVT prophylaxis: Code(s): Z29.9 - Encounter for prophylactic measures, unspecified Status: Acute Assessment and Plan: Lovenox Subjective Date/time seen: 07/09/20 09:57 Assuming care today for this follow up visit Interval history: Patient is a 54 yo F with history of COPD, Chronic Respiratory Failure on 1L O2 at home, AMY w/ panic attacks who is seen in follow up for acute on chronic respiratory failure with hypoxia and hypercapnia likely due to COPD exacerbation. Patient states she feels okay today. She is A&Ox3 for me today, although appears confused at times, with delayed responses for most questions. Not the best historian. She thinks her breathing is stable. Still has a cough with sputum pro
--- NOTE | 2020-07-09 10:55 | PCDIET ---
Nutrition Follow-Up Complete: Nutrition Diagnosis: Inadequate oral intake related to oral intubation as evidenced by NPO status. Nutrition Goal: Patient to meet estimated nutritional needs. Goal in progress. Patient consumed average of 67% of recorded meals since 07/06/20 on regular diet which is appropriate. Patient sleeping; sitter unsure whether patient has been taking Thrive, but reports patient did request Ensure. Recommend adding Ensure Compact (220kcal, 9g protein) with meals and continuing Thrive BID. Last recorded weight is 34 kg which is increased from last review. Bowel Motility: Last documented BM on 07/07/20. Labs Reviewed: Hgb (10.5), Hct (34.1), Cr (0.3), Na (131) Meds Noted: Albuterol, Vitamin B12, Drisdol, Folic Acid, Atrovent, Remeron, Protonix, Prednisone, Advair, Thiamine Additional Notes: Left shoulder skin tear. Patient may benefit from daily MVI/minerals. Will continue to monitor with same goal. Nutrition Monitoring and Evaluation: Follow up every 3 days.
--- NOTE | 2020-07-09 11:58 | PCOTNOTE ---
11:55 - Attempted to see patient for skilled OT session at this time. Patient asleep upon entry and easily aroused with call of name. When asked if patient would like to participate in therapy session, patient refused stating, I had just dozed off, I don't want to get washed up right now. Come back later. Will attempt to see patient again this PM if possible.
[2020-07-09] MEDS: ACETAMINOPHEN 325 MG TABLET 650 MG PO ×2 (12:10→19:49)
--- NOTE | 2020-07-09 12:11 | PC.NURSE ---
This patient, Esther Brink, was transferred to [[id number]] on 07/09/20 at 1212. Personal belongings sent with patient. Belongings list checked and signed with receiving [ ]. Report given to [RAHUL Pulido @[id number] ]. Appropriate documentation sent with patient.
--- NOTE | 2020-07-09 12:21 | PC.NURSE ---
This patient, Esther Brink, was received from IMU on 07/09/20 at 1221. Personal belongings list checked and signed. Patient/family oriented to unit policies and routines
[2020-07-09] MEDS: MIRTAZAPINE 15 MG TABLET PO (19:49)
[2020-07-10] VITALS (13 sets, daily range): BP systolic 90–110; BP diastolic 51–64; PULSE 92–111; RESP 16–20; TEMP 36.8–37.3; O2SAT 79–97
[2020-07-10] MEDS: ALPRAZolam (*CRX) 0.5 MG TABLET PO (01:37)
[2020-07-10] MEDS: ALBUTEROL SULFATE NEB 2.5 MG/0.5 ML INH INHALATION ×2 (01:39→09:09)
[2020-07-10] MEDS: IPRATROPIUM BR 0.02% INH SOLN 0.5 MG/2.5 ML VIAL INHALATION ×2 (01:39→09:09)
[2020-07-10 05:25] LABS: Basophils Percent Auto 0.3 % (0.2-1.2); Eosinophils Absolute Auto 0.1 K/mm3 (0-0.3); Eosinophils Percent Auto 0.6 % (0-4.4); Hematocrit 39.3 % (37.0-47.0); Hemoglobin 12.3 g/dL (12.0-15.0); Immature Granulocyte Absolute 0.03 K/mm3 (0.00-0.031); Immature Granulocyte Percent A 0.3 % (0-0.5); Lymphocytes Absolute Auto 1.62 K/mm3 (0.9-3.2); Mean Corpuscular HGB Conc 31.3 g/dl (32-36); Mean Corpuscular Hemoglobin 30.9 pg (26-34); Mean Corpuscular Volume 98.7 fl (80-100); Mean Platelet Volume 8.2 fl (7.4-10.4); Monocytes Percent Auto 9.4 % (2.6-8.5); Neutrophils Percent Auto 74.4 % (45.5-73.1); Platelet Count Result 441 k/mm3 (150-375); Red Blood Count 3.98 M/mm3 (4.2-5.4); White Blood Count 10.8 K/mm3 (4.5-10.0)
[2020-07-10 05:42] LABS: Albumin Level 3.6 g/dL (3.5-5.1); Anion Gap 4.99999 mmol/L (8-16); Blood Urea Nitrogen 15 mg/dL (7-17); Carbon Dioxide > 40 mmol/L (22-30); Chloride 86 mmol/L (98-107); Estimated CRCL calculation 88 ml/min; Estimated Glomerular Filt Rate > 60; Glucose 91 mg/dL (65-105); Magnesium 1.9 mg/dL (1.6-2.3); Phosphorus 3.8 mg/dL (2.5-4.5); Potassium 3.9 mmol/L (3.4-5.0); Sodium 131 mmol/L (137-145)
[2020-07-10] MEDS: FLUTICASONE/SALMETEROL 115-21 MCG INHALER 1 PUFF 2 PUFF INHALATION (08:00)
--- NOTE | 2020-07-10 08:24 | PM.DS ---
DS: Admitting Diagnosis Admitting Diagnosis Admitting Diagnosis: acute on chronic respiratory failure with hypoxia, DS: Discharge Diagnosis Discharge Diagnosis (1) Acute on chronic respiratory failure with hypoxia and hypercapnia: Code(s): J96.21 - Acute and chronic respiratory failure with hypoxia; J96.22 - Acute and chronic respiratory failure with hypercapnia Status: Acute Assessment and Plan: Patient with respiratory failure requiring intubated on admission. Normally wears O2 at 1L. [place] related to COPD exacerbation. ABG showing 7.25/112/307 and placed on BiPAP. Continues to need BiPAP at night and with naps. Continue steroids (tapering dose, prednisone 30 mg again today), antibiotics x 7 days (d/c on 07/08), and updraft treatments. Aggressive pulmonary toilet. Continue PT/OT. Down to 2L. Home O2 evaluation today. CC following. Likely Home with HH. Plan for D/c today (2) COPD exacerbation: Code(s): J44.1 - Chronic obstructive pulmonary disease with (acute) exacerbation Status: Acute Assessment and Plan: As above, chest x-ray reviewed on 07/04 showing hyperinflation and scarring. Empirically placed on antibiotics - 7 days total antibiotics. PO steroid taper at discharge (prednisone 30 mg today) (3) ST elevation on ECG: Code(s): R94.31 - Abnormal electrocardiogram [ECG] [EKG] Status: Acute Assessment and Plan: Initially felt ST changes were acute but had similar findings on EKG when she presented with respiratory failure in February 2020. Echo 07/02/20 showing normal LV systolic function, Grade I diastolic dysfunction and normal wall motion. She does have elevated RAP and dilated IVC with normal RA and RV dimensions. Troponins negative x3. DD positive at 1.4. LE doppler negative. Appreciate Cardiology input. (4) Alcohol abuse, daily use: Code(s): F10.10 - Alcohol abuse, uncomplicated Status: Chronic Assessment and Plan: History of daily alcohol consumption at least 2 beers a day. Currently on Thiamine and Folate. Tremulous today. No other evidence of withdrawal. Alcohol cessation encouraged today (5) Suspected 2019 novel coronavirus infection: Code(s): Z20.828 - Contact with and (suspected) exposure to other viral communicable diseases Status: Ruled-out Assessment and Plan: COVID test is negative. (6) Tobacco abuse: Code(s): Z72.0 - Tobacco use Status: Chronic Assessment and Plan: Tobacco cessation a must. This was re-enforced during again today (7) Hyponatremia: Code(s): E87.1 - Hypo-osmolality and hyponatremia Status: Acute Assessment and Plan: Na 133 on admission but dropped to 120. Doris level 94. FENa 3%. Could be post-renal. IV fluids started. She did received 3% saline. Renal US showing mildly hyperechoic renal cortices, medical renal disease. 3% was stopped when Na 128 and she did receive free water. Off all fluids now. Na 131 today. Continue to hold SSRI; resume when okay with PCP. BMP in 1 week (8) DVT prophylaxis: Code(s): Z29.9 - Encounter for prophylactic measures, unspecified Status: Acute Assessment and Plan: Lovenox DS: Summary Hospital Course Reason for hospitalization: Acute on chronic respiratory failure with hypoxia; sob/respiratory distress Hospital Course: Patient is a 54 yo F with COPD, chronic respiratory failure reportedly on 1-4 L O2 NC at home, alcohol abuse, and chronic anemia among other comorbid conditions who presented to the ED on 07/02 via EMS from home with complaints of shortness of breath and respiratory distress. Reportedly
--- NOTE | 2020-07-10 09:47 | HOMEO2EVAL ---
Home Oxygen Evaluation RC: Home Oxygen (O2) Evaluation Start: 07/10/20 08:25 Freq: ONCE Status: Active Protocol: RPE Activity Type Activity Date Activity User E-Sign Co-Sign Detail Recorded Client Recorded Date Recorded By Document 07/10/20 09:30 LOLA [id number] 07/10/20 09:46 LOLA Document 07/10/20 09:33 LOLA [id number] 07/10/20 09:46 LOLA Document 07/10/20 09:35 LOLA [email or web address] 07/10/20 09:46 LOLA Document 07/10/20 09:40 LOLA [email or web address] 07/10/20 09:46 LOLA Document 07/10/20 09:45 LOLA [email or web address] 07/10/20 09:46 LOLA 07/10/20 07/10/20 07/10/20 09:30 09:33 09:35 Home O2 Evaluation Test Phase Resting Resting Resting Oxygen Delivery Room Air Nasal Cannula Nasal Cannula Oxygen Flow Rate (L/min) 1 2 Pulse Oximetry (90-100 %) 79 L 86 L 93 Pulse Rate (60-100 beats/min) 99 Ambulation Distance (feet) Home Oxygen Evaluation Comments Treatment Charges O2 Evaluation 07/10/20 07/10/20 09:40 09:45 Home O2 Evaluation Test Phase Exercise Resting Oxygen Delivery Nasal Cannula Nasal Cannula Oxygen Flow Rate (L/min) 2 2 Pulse Oximetry (90-100 %) 94 95 Pulse Rate (60-100 beats/min) 111 H Ambulation Distance (feet) 50 Home Oxygen Evaluation Comments Pt walked in room with assistance and wheeled walker, pt weak, requires 2L O2 Treatment Charges
[2020-07-10] MEDS: ENOXAPARIN 40 MG/0.4 ML SYRINGE SUB-Q (10:04)
[2020-07-10] MEDS: predniSONE 10 MG TABLET 30 MG PO (10:05)
[2020-07-10] MEDS: MONTELUKAST SODIUM 10 MG TABLET PO (10:06)
[2020-07-10] MEDS: CYANOCOBALAMIN 1,000 MCG TABLET 1000 MCG PO (10:06)
[2020-07-10] MEDS: PANTOPRAZOLE 40 MG TABLET PO (10:06)
[2020-07-10] MEDS: THIAMINE HCL 100 MG TABLET PO (10:07)
[2020-07-10] MEDS: FOLIC ACID 1 MG TABLET PO (10:07)
--- NOTE | 2020-07-10 11:25 | PCRCNOTE ---
HOME O2 EVAL COMPLETED. PT REQUIRES 2L AT REST AND WITH EXERTION. PT HAS HOME O2, CONTACTED HER SON, JOE. HE WILL BRING IN A TANK FOR TRANSPORT BACK TO HOME.
[2020-07-10] MEDS: ROFLUMILAST 500 MCG TABLET PO (11:58)
== END 2020-07-10 13:40 | disposition home health service (06) | DRG 208 ==
LOC: ANHED 07:30 → ANHICU 10:12 → ANHIMU 07-08 15:26 → ANH3MED 07-10 08:33 → ANHICU 07-11 09:08 → ANHIMU 07-11 09:08
PROVIDERS: Emergency Medicine; Internal Medicine; Admitting Provider Internal Medicine; Emergency Provider General Practice; PCP Family Medicine; Visit Provider Physician Assistant
DX: J96.21 Acute and chronic respiratory failure with hypoxia (principal); J44.1 Chronic obstructive pulmonary disease with (acute) exacerbation; E87.1 Hypo-osmolality and hyponatremia; J96.22 Acute and chronic respiratory failure with hypercapnia; Z99.81 Dependence on supplemental oxygen; Z20.828 Contact with and (suspected) exposure to other viral communicable diseases; R94.31 Abnormal electrocardiogram [ECG] [EKG]; F17.210 Nicotine dependence, cigarettes, uncomplicated; F10.10 Alcohol abuse, uncomplicated; Z79.899 Other long term (current) drug therapy
CPT/HCPCS: 31500; 36415; 36600; 71045; 76775; 80048; 80069; 80076; 81001; 82375; 82570; 82805; 83050; 83605; 83735; 84100; 84300; 84443; 84484; 85025; 85027; 85380; 85610; 85730; 86140; 87040; 87635; 93005; 93306; 93970; 94002; 94003; 94618; 94640; 94660; 96365; 96375; 97110; 97116; 97161; 97165; 97166; 97530; 97535; 99291; A9270; C9113; C9803; J0330; J0456; J0696; J1644; J1650; J2704; J2920; J2930; J3010; J3411; J3475; J7030; J7050; J7060; J7120; J7131; J7512; U0003

== ENCOUNTER 2020-07-11 12:35 | Inpatient (IN) | payer MEDICARE, MEDICAID, SELFPAY ==
[2020-07-11] VITALS (9 sets, daily range): BP systolic 98–136; BP diastolic 61–75; PULSE 89–104; RESP 20–31; TEMP 36.3–36.6; O2SAT 93–100; BMI 13.5
--- NOTE | ~2020-07-11 | CT_ITS ---
EXAMINATION: CT brain wo con EXAM DATE: 07/11/2020 13:40 INDICATION: Confusion, shortness of breath. TECHNIQUE: Spiral CT of the head was performed without contrast. Axial, coronal and sagittal images were reviewed. The dose-length product (DLP) for this examination was 1210.67 mGy-cm. The exposure was tailored according to patient size, and iterative reconstruction (ASIR) was used as additional do se reduction technique. Comparison is made to prior examination from 03/07/2020. FINDINGS: There is no acute intraparenchymal hemorrhage. No evidence of intraparenchymal brain mass lesion. No evidence of acute infarction. There is no mass effect or midline shift. The ventricles are normal in size. There are no extra-axial collections. There are no acute calvarial fractures. T he orbits are unremarkable. Soft tissue is unremarkable. The visualized sinuses and mastoid air tommy ls are well aerated. IMPRESSION: 1. Unremarkable head CT examination. Reviewed, dictated and finalized at location B.
--- NOTE | ~2020-07-11 | XR_ITS ---
EXAMINATION: XR chest 1V portable EXAM DATE: 07/11/2020 13:57 INDICATION: Shortness of breath, history COPD. TECHNIQUE: Portable AP frontal chest x-ray was obtained. Comparison is made to prior examination from 07/04/2020. FINDINGS: Severe chronic hyperinflation. Regions of scarring and surgical suture material from partia l pneumonectomies bilaterally. No acute airspace disease, pneumothorax or pleural effusion suspected. There are bony degenerative changes. IMPRESSION: 1. Severe hyperinflation, other chronic findings. Reviewed, dictated and finalized at location B.
--- NOTE | 2020-07-11 12:37 | ECG_ITS ---
Measurements Intervals [place] Rate: 89 P: 89 DC: 136 QRS: 61 QRSD: 85 T: 95 QT: 339 QTc: 415 Interpretive Statements SINUS RHYTHM ATRIAL PREMATURE COMPLEXES BORDERLINE T WAVE ABNORMALITY- HIGH LATERAL LEADS BASELINE ARTIFACT- I, II, AVR, AVL, V4-V6 BORDERLINE ECG Electronically Signed On 07-11-2020 14:29:55 CDT by Quinton Bell D.O.
[2020-07-11 12:58] LABS: Basophils Percent Auto 0.3 % (0.2-1.2); Eosinophils Absolute Auto 0.1 K/mm3 (0-0.3); Eosinophils Percent Auto 1.1 % (0-4.4); Hemoglobin 11.6 g/dL (12.0-15.0); Immature Granulocyte Absolute 0.04 K/mm3 (0.00-0.031); Immature Granulocyte Percent A 0.5 % (0-0.5); Lymphocytes Absolute Auto 1.19 K/mm3 (0.9-3.2); Lymphocytes Percent Auto 16.2 % (18.3-44.2); Mean Corpuscular HGB Conc 31.4 g/dl (32-36); Mean Corpuscular Hemoglobin 30.7 pg (26-34); Mean Corpuscular Volume 97.9 fl (80-100); Mean Platelet Volume 8.1 fl (7.4-10.4); Monocytes Percent Auto 13.9 % (2.6-8.5); Platelet Count Result 454 k/mm3 (150-375); Red Blood Count 3.78 M/mm3 (4.2-5.4); Red Cell Distribution Width 12.2 % (11.5-14.5); White Blood Count 7.3 K/mm3 (4.5-10.0)
[2020-07-11 13:12] LABS: Alanine Aminotransferase 14 U/L (4-35); Albumin Level 3.8 g/dL (3.5-5.1); Alkaline Phosphatase 57 U/L (38-126); Anion Gap 6.99999 mmol/L (8-16); Aspartate Amino Transferase 21 U/L (14-36); Bilirubin,Total 0.5 mg/dL (0.2-1.3); Blood Urea Nitrogen 10 mg/dL (7-17); Carbon Dioxide > 40 mmol/L (22-30); Chloride 83 mmol/L (98-107); Estimated CRCL calculation 87 ml/min; Estimated Glomerular Filt Rate > 60; Glucose 84 mg/dL (65-105); Potassium 3.9 mmol/L (3.4-5.0); Sodium 130 mmol/L (137-145)
[2020-07-11 13:25] LABS: Alveolar/Arterial O2 Gradient 29.3 mmHg; Base Excess ABG 14.8 mEq/l (+/-2.0); Carboxyhemoglobin 0.6 % THb (0-2.0); Fractional Inspired Oxygen 36 %; HCO3 ABG 43.6 mEq/l (22.0-26.0); Methemoglobin ABG 0.3 %THb (0-1.5); Oxygen Content ABG 16.4 %vol (16.0-22.0); Oxygen Saturation ABG 98.4 % (95.0-100.0); Oxyhemoglobin 97.2 % THb (90.0-100.0); PO2 ABG 134.2 mmHg (80.0-100.0); PO2 FiO2 Ratio Arterial Blood 3.73 %; Reduced Hemoglobin 1.9 %THb (0-5.0); Total Hemoglobin 11.8 g/dL (12.0-18.0); pH ABG 7.353 (7.350-7.450)
[2020-07-11 13:27] LABS: Device NASAL CANNULA; PCO2 ABG 80.3 mmHg (35.0-45.0); Site Drawn LEFT BRACHIAL
[2020-07-11 13:29] LABS: Add Urine Microscopic? YES; Appearance Urine Cloudy (Clear); Bacteria Urine Trace /hpf; Bilirubin Urine Negative (Negative); Blood Urine Negative (Negative); Color Urine Yellow (Yellow); Glucose Urine UA Negative (Negative); Ketones Urine Negative (Negative); Leukocyte Esterase Ur 1+ LEU/UL (Negative); Mucus Urine Heavy /lpf; Nitrate Urine Negative (Negative); Protein Urine Negative (Negative); RBC Urine 0-2 /hpf (0-2); Specific Grav Ur 1.016 (1.001-1.035); Squamous Epithelial Cell Urine Few /hpf (Few); Urobilinogen Urine Negative mg/dL (<2.0); WBC Urine 21-30 /hpf
[2020-07-11 13:44] LABS: Lactic Acid Reflex 0.6 mmol/L (0.7-2.1); Lipase 64 U/L (23-300)
[2020-07-11 13:52] LABS: INR 0.8; Prothrombin Time 11.2 Seconds (11.1-14.7)
[2020-07-11 13:53] LABS: Partial Thromboplastin Time 26.9 SECONDS (22.3-36.8)
[2020-07-11 13:56] LABS: Troponin I < 0.012 ng/mL (0.000-0.034)
[2020-07-11 13:58] LABS: CRP < 0.5 mg/dL (<1.0)
[2020-07-11] MEDS: SODIUM CHLORIDE 0.9% IV 1,000 ML 999 ML IV CONT (13:59)
[2020-07-11 14:53] LABS: Basophils Percent Auto 0.3 % (0.2-1.2); Eosinophils Absolute Auto 0.1 K/mm3 (0-0.3); Eosinophils Percent Auto 1.6 % (0-4.4); Hematocrit 36.1 % (37.0-47.0); Immature Granulocyte Absolute 0.04 K/mm3 (0.00-0.031); Immature Granulocyte Percent A 0.6 % (0-0.5); Lymphocytes Absolute Auto 0.87 K/mm3 (0.9-3.2); Lymphocytes Percent Auto 13.8 % (18.3-44.2); Mean Corpuscular HGB Conc 30.5 g/dl (32-36); Mean Corpuscular Hemoglobin 30.6 pg (26-34); Mean Corpuscular Volume 100.6 fl (80-100); Mean Platelet Volume 8.1 fl (7.4-10.4); Monocytes Absolute Auto 0.8 K/mm3 (0.1-0.6); Monocytes Percent Auto 13.2 % (2.6-8.5); Neutrophils Absolute Auto 4.4 K/mm3 (1.3-6.7); Neutrophils Percent Auto 70.5 % (45.5-73.1); Platelet Count Result 425 k/mm3 (150-375); Red Blood Count 3.59 M/mm3 (4.2-5.4); Red Cell Distribution Width 12.2 % (11.5-14.5); White Blood Count 6.3 K/mm3 (4.5-10.0)
--- NOTE | 2020-07-11 15:02 | ED.AMS ---
HPI - Altered Mental Status General Chief Complaint: Altered Mental Status <Tam Palacios PA-C - Last Filed: 07/11/20 16:04> Stated Complaint: SOB/AMS <ROYCE Chapman Last Filed: 07/11/20 16:04> Time Seen by Provider: 07/11/20 13:04 <ROYCE Chapman Last Filed: 07/11/20 16:04> Source: patient <ROYCE Chapman Last Filed: 07/11/20 16:04> Mode of arrival: EMS <Tam Palacios PA-C - Last Filed: 07/11/20 16:04> Limitations: altered mental status <ROYCE Chapman Last Filed: 07/11/20 16:04> History of Present Illness HPI narrative: Patient is a 54-year-old female who presents per EMS from home for altered mentation patient on arrival to emergency department is alert and oriented to person patient was discharged from hospital yesterday. Patient on arrival no shortness of breath but is a unreliable historian secondary to clinical condition and altered mentation patient was discharged for hypoxemia and hypercarbia. <ROYCE Chapman Last Filed: 07/11/20 16:04> Related Data Home Medications: Home Medications Medication Instructions Recorded Confirmed montelukast 10 mg PO DAILY 10/19/19 07/02/20 omeprazole 20 mg PO DAILY 10/19/19 07/02/20 escitalopram oxalate 10 mg PO DAILY 11/15/19 07/02/20 Incruse Ellipta 1 inh INHALATION DAILY 03/07/20 07/02/20 alprazolam 0.5 mg PO QID PRN 03/07/20 07/02/20 folic acid 1 mg PO DAILY 03/07/20 07/02/20 mirtazapine 15 mg PO HS 03/07/20 07/02/20 thiamine HCl (vitamin B1) 100 mg PO DAILY 03/07/20 07/02/20 ergocalciferol (vitamin D2) 50,000 unit PO WEEKLY 03/08/20 07/02/20 fluticasone propionate [Flonase 2 spray INTRANASAL DAILY 03/08/20 07/02/20 Allergy Relief] ipratropium-albuterol 3 ml INHALATION QID 03/08/20 07/02/20 albuterol sulfate 2 puff INHALATION Q4-6H PRN 07/02/20 07/02/20 fluticasone propion-salmeterol 1 inh INHALATION Q12H 07/02/20 07/02/20 [Advair Diskus] <Tam Palacios PA-C - Last Filed: 07/11/20 16:04> Allergies/Adverse Reactions: Allergies Allergy/AdvReac Type Severity Reaction Status Date / Time clindamycin Allergy Severe anaphylactic Verified 07/02/20 06:48 reaction, rash clarithromycin [From Biaxin] Allergy Hives Verified 07/02/20 06:48 <Tam Palacios PA-C - Last Filed: 07/11/20 16:04> Review of Systems Review of Systems: ROS unobtainable: Yes unobtainable due to medical condition <Tam Palacios PA-C - Last Filed: 07/11/20 16:04> [facility] Past Medical History Medical History: Medical History Asthma Chronic respiratory failure COPD (chronic obstructive pulmonary disease) Generalized anxiety disorder with panic attacks GERD (gastroesophageal reflux disease) Spontaneous pneumothorax August 2012. These were recurrent on the left and she had a subsequent VATS procedure and apical blebectomy as well as pleurodesis. Steroid dependent Tobacco abuse <Tam Palacios PA-C - Last Filed: 07/11/20 16:04> Surgical History Surgical History: Surgical History History of bilateral tubal ligation History of History of tonsillectomy Status post thoracotomy Left-sided VATS procedure and apical bleb resection with pleurodesis. <Tam Palacios PA-C - Last Filed: 07/11/20 16:04> Social History Social History: Social History Social History: The patient lives with her son. She has smoked as many as 2 packs of cigarettes a day. She apparently drinks 2 or 3 beers a day, but heavier on the weekends. It sounds like the patient has 2 sons. She is a full code. Smoking packs per day: 0.5 Smoking cigarettes per day: 10.0 Years smoked: 35 Smoking pack-years: 17.50 Smoking status: Current every day smoker Tobacco type: cigarettes Second hand tobac
[2020-07-11] MEDS: LORazepam INJ (*CRX) 2 MG/ML VIAL 0.5 MG IV PUSH (15:06)
[2020-07-11] MEDS: methylPREDNISolone SOD SUCC 125 MG VIAL 80 MG IV PUSH (16:40)
[2020-07-11] MEDS: LACTATED RINGERS 1,000 ML 75 ML IV CONT ×2 (16:40→21:36)
--- NOTE | 2020-07-11 19:25 | ADMGEN ---
This patient, Esther Brink, was admitted to IMU Room 205-02 at 1846. Patient/family oriented to hospital policies and general routines including ID bracelet, bed and alarms, visiting hours, pain management, procedures, bathroom and other care routines, personal items, smoking policy, room service/diet, and visiting hours. Valuables list has been completed. Information on how to activate the Rapid Response Team has been discussed. Patient/Family are encouraged to report perceived risks to care and to ask questions if they do not understand what they are told or what they should do.
--- NOTE | 2020-07-11 21:30 | PM.IMHP ---
H&P: HPI History of Present Illness Date/Time: 07/11/20 21:30 Chief complaint: Confusion, shortness of breath. Narrative: Esther Brink is a 54-year-old female smoker with chronic respiratory failure and severe COPD/emphysema presented to the emergency department earlier today via EMS from home for evaluation of shortness of breath and altered mental status. She was just discharged from the hospital yesterday after being admitted on July 02 with acute on chronic respiratory failure secondary to COPD exacerbation requiring intubation. She had issues with confusion, requiring a sitter in her room up to the day of discharge but that does not seem to be a new finding. In any regard, she is a poor historian and while she is able to be reoriented, she has obvious confusion and answers a majority of my questions with sometimes, sure, I guess or maybe every once in a while. Initially she did not remember that she was in the hospital and discharged yesterday, but when I reminded her of this she began to confabulates, telling me that she actually left the hospital yesterday in order to get clean clothes and she decided to come back today. It does not sound as though she has any understanding or insight related to her medical conditions, and I cannot say that she is compliant with her home oxygen or CPAP/ BiPAP, if she indeed has 1 at home. She does not believe that she has had a fever. She tells me she has a smoker's cough and that has not changed. She denies chest pain, nausea, vomiting, and sweats. Review of Systems Review of Systems: Narrative: A review of systems is is unable to be obtained accurately as she is not a reliable historian as detailed above. [facility] Past Medical History Medical History (Updated 07/12/20 @ 03:05 by Brooke Pierson PA-C) Abnormal EKG EKG has previously shown ST elevation which appears to be early repolarization. Alcohol abuse Anorexia Anxiety Asthma B12 deficiency anemia Chronic anemia Chronic respiratory failure with hypoxia and hypercapnia COPD with emphysema Gastroesophageal reflux disease Generalized anxiety disorder with panic attacks Spontaneous pneumothorax (~08/2012) Several pneumothoraces status post VATS procedure and apical blebectomy as well as pleurodesis. Tobacco abuse Vitamin D deficiency Surgical History Surgical History (Updated 07/12/20 @ 03:05 by Brooke Pierson PA-C) History of bilateral tubal ligation History of History of hip surgery (~07/2019) ORIF of right hip fracture. History of tonsillectomy Status post thoracotomy Left-sided VATS procedure and apical bleb resection with pleurodesis. Family History Family History Father Acute myocardial infarction Father No problems noted. Unknown No problems noted. Mother No problems noted. Sibling No problems noted. Social History Social History (Updated 07/12/20 @ 02:58 by Brooke Pierson PA-C) Social History: The patient lives with her 17-year-old son in [place]. She has 2 other sons who are grown out of the home. 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 She smoked as many as 2 packs of cigarettes per day and tells me she now smokes maybe a half a pack a day. She is not forthcoming with the amount of alcohol she uses, but tells me she drinks several times a week, maybe 3 or 4 beers at a time, maybe heavier on the weekends. She denies illicit substance use. Her brother Manish Gardner is her surrogate decision maker and she wishes to be a full code. Smoking packs per day: 2 Smoking cigarettes per day: 40.0 Years smoked: 35 Smoking pack-years: 70.00 Tobacco type: cigarettes Second hand tobacco smoke exposure: No Alcohol intake: current Drinks per week: 35 Substance use: never Substance use type: does not use Additional living arrangements comments: [place]
[2020-07-11] MEDS: FAMOTIDINE 20 MG/2 ML VIAL IV PUSH (21:37)
[2020-07-12] VITALS (21 sets, daily range): BP systolic 100–122; BP diastolic 55–70; PULSE 77–107; RESP 16–24; TEMP 36.6–36.9; O2SAT 90–98; BMI 14.5
[2020-07-12] LABS: Alveolar/Arterial O2 Gradient 65.4 mmHg; Base Excess ABG 8.3 mEq/l (+/-2.0); Carboxyhemoglobin 0.2 % THb (0-2.0); Fractional Inspired Oxygen 32 %; HCO3 ABG 35.4 mEq/l (22.0-26.0); Methemoglobin ABG 0.3 %THb (0-1.5); Oxygen Content ABG 16.4 %vol (16.0-22.0); Oxygen Saturation ABG 96.5 % (95.0-100.0); Oxyhemoglobin 95.1 % THb (90.0-100.0); PO2 ABG 90.2 mmHg (80.0-100.0); PO2 FiO2 Ratio Arterial Blood 2.82 %; Reduced Hemoglobin 4.4 %THb (0-5.0); Total Hemoglobin 12.2 g/dL (12.0-18.0); pH ABG 7.375 (7.350-7.450)
[2020-07-12 00:02] LABS: Device NASAL CANNULA; Site Drawn LEFT BRACHIAL
[2020-07-12 05:18] LABS: Hematocrit 33.7 % (37.0-47.0); Hemoglobin 10.7 g/dL (12.0-15.0); Mean Corpuscular HGB Conc 31.8 g/dl (32-36); Mean Corpuscular Hemoglobin 30.9 pg (26-34); Mean Corpuscular Volume 97.4 fl (80-100); Mean Platelet Volume 8.5 fl (7.4-10.4); Platelet Count Result 516 k/mm3 (150-375); Red Blood Count 3.46 M/mm3 (4.2-5.4); Red Cell Distribution Width 12.1 % (11.5-14.5); White Blood Count 6.9 K/mm3 (4.5-10.0)
[2020-07-12 05:30] LABS: Anion Gap 1 mmol/L (8-16); Blood Urea Nitrogen 10 mg/dL (7-17); Calcium 8.4 mg/dL (8.4-10.2); Carbon Dioxide 37 mmol/L (22-30); Chloride 88 mmol/L (98-107); Estimated CRCL calculation 93 ml/min; Estimated Glomerular Filt Rate > 60; Glucose 79 mg/dL (65-105); Potassium 4.3 mmol/L (3.4-5.0); Sodium 126 mmol/L (137-145)
[2020-07-12 07:10] LABS: Amphetamine Screen Urine Negative (Negative); Barbiturate Screen Urine Negative (Negative); Benzodiazepines Screen Urine Negative (Negative); Cannabinoid Screen Urine Negative (Negative); Cocaine Screen Urine Negative (Negative); Methadone Screen Urine Negative (Negative); Opiate Screen Urine Negative (Negative); Phencyclidine Screen Urine Negative (Negative)
[2020-07-12] MEDS: IPRATROPIUM BR 0.02% INH SOLN 0.5 MG/2.5 ML VIAL INHALATION ×4 (08:00→20:20)
[2020-07-12] MEDS: ALBUTEROL SULFATE NEB 2.5 MG/0.5 ML INH INHALATION ×4 (08:00→20:21)
[2020-07-12] MEDS: ENOXAPARIN 30 MG/0.3 ML SYRINGE SUB-Q (08:24)
[2020-07-12] MEDS: FERROUS SULFATE 324 MG TABLET PO ×2 (08:25→18:07)
[2020-07-12] MEDS: CYANOCOBALAMIN 1,000 MCG TABLET 1000 MCG PO (08:25)
[2020-07-12] MEDS: FOLIC ACID 1 MG TABLET PO (08:25)
[2020-07-12] MEDS: PANTOPRAZOLE 40 MG TABLET PO (08:25)
[2020-07-12] MEDS: MONTELUKAST SODIUM 10 MG TABLET PO (08:25)
[2020-07-12] MEDS: ROFLUMILAST 500 MCG TABLET PO (08:25)
[2020-07-12] MEDS: THIAMINE HCL 100 MG TABLET PO (08:25)
[2020-07-12] MEDS: FLUTICASONE PROPIONATE 0.05% NA SPR 16 GM BTL (*BKC) 2 SPRAY NASAL (08:25)
[2020-07-12] MEDS: predniSONE 20 MG, predniSONE 10 MG 30 MG PO (08:58)
[2020-07-12] MEDS: SODIUM CHLORIDE 0.9% IV 1,000 ML 70 ML IV CONT ×2 (08:58→21:21)
--- NOTE | 2020-07-12 10:54 | PM.IMPN ---
Progress Note: A&P Assessment and Plan (1) Acute and chronic respiratory failure: Code(s): J96.20 - Acute and chronic respiratory failure, unspecified whether with hypoxia or hypercapnia Status: Acute Assessment and Plan: [place] to be largely due to noncompliance when discharged home earlier this week. Possible COPD exacerbation component as well. She is now weaned to 1L O2 at rest which was improved from her discharged Home O2 eval of 2L with rest and ambulation. CO2 improving on BMP Continue her prednisone taper Continue home meds BiPAP when sleeping Neb treatments Dr. Suggs consulted and appreciate recommendations Given recent discharge and readmission likely because of her noncompliance while at home, she is likely going to need at least placement for further care as she has poor insight and will have a high likelihood of readmission if discharged home again CC following Monitor Transfer to med/surg (2) Confusion: Code(s): R41.0 - Disorientation, unspecified Status: Acute Assessment and Plan: Possibly related to hypercapnia vs benzodiazepine use however tox screen negative. Mirtazapine held. Possible early dementia vs encephalopathy from chronic alcohol abuse also possibility/contributing continue to monitor closely (3) COPD with emphysema: Code(s): J43.9 - Emphysema, unspecified Status: Acute Assessment and Plan: please see above a/p (4) Chronic anemia: Code(s): D64.9 - Anemia, unspecified Status: Acute Assessment and Plan: H&H stable upon review of labs. No evidence of acute blood loss Monitor (5) Hyponatremia: Code(s): E87.1 - Hypo-osmolality and hyponatremia Status: Acute Assessment and Plan: Na 126 this morning. Hyponatremia on last hospital stay with significant improvement with holding SSRI and 3% NS IVF Hold SSRI Light NS IVF Monitor tomorrow (6) Anxiety: Code(s): F41.9 - Anxiety disorder, unspecified Status: Acute Assessment and Plan: Anxious today. comparable to previous visit a couple days ago. On chcf benzodiazepine use. 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 Patient is a poor historian, but is A&O to self, hospital, and , but is unsure of president and thinks it is 2018. She is intermittently confused and anxious appearing. RN reports has been confused all morning. She reports her SOB is stable; asking for her breathing treatment. Cough is nonproductive and occasional. Regardless, patient does not report any pain anywhere. She denies f/c/s, dizziness, lightheadedness, cp/palpitations, n/v/d/c, abd pain, changes in BMs, dysuria, hematuria, cloudy urine, calf pain/swelling
--- NOTE | 2020-07-12 11:29 | PCDIET ---
Nutrition Consult Received. Recommend regular diet due to limited intake with Frozen Nutritional Treat BID. Patient refused Ensure previously. Patient may also benefit from appetite stimulant and/or multivitamin with minerals daily. Agree with folic acid and thiamine supplementation. If aggressive nutritional therapy is desired, may need to consider supplemental nutrition support (feeding tube placement). Following.
--- NOTE | 2020-07-12 11:57 | PC.NURSE ---
This patient, Eshter Brink, was received from IMU on 07/12/20 at 1157. Personal belongings list checked and signed. Patient/family oriented to unit policies and routines. Report received from RAHUL Saucedo.
--- NOTE | 2020-07-12 12:00 | PC.NURSE ---
Patient downgraded to medical status. Telemetry box taken off. Report given to Mraina KAY. Patient travelled by bed with oxgyen attached. Meds given to nurse at 1155.
[2020-07-12] MEDS: ALPRAZolam (*CRX) 0.5 MG TABLET PO ×2 (12:37→18:07)
--- NOTE | 2020-07-12 13:50 | PCOTNOTE ---
Per RN, hold OT evaluation this date at patient is agitated and needing to rest. Will complete OT evaluation at later time.
--- NOTE | 2020-07-12 20:44 | PM.CNPUL ---
Assessment and Plan Assessment and plan (1) Acute on chronic respiratory failure with hypoxia and hypercapnia: Code(s): J96.21 - Acute and chronic respiratory failure with hypoxia; J96.22 - Acute and chronic respiratory failure with hypercapnia Status: Acute Assessment and Plan: She is a candidate for NPPV with recurrent admissions for end stage respiratory failure with respiratory acidosis, altered mental status, and has been admitted in March 08 and July 02 with very similar presentation. She has had acute on chronic respiratory acidosis. She does not have a non- invasive positive-pressure ventilator to use at home and this may be a effective have ever she is very non compliant. a device such as a trilogy or ask for a while not help her if she does not use it. she was discharged home on 2 L at rest and with ambulation but looks like she could use may be a lower amount 1 liter/minute. This may help to reduce her carbon dioxide retention. Agree with continuing the prednisone taper, BiPAP with sleep, evaluation for having a trilogy device at home with her recent readmissions. She is on roflumilast and umeclidinium (Incruse) at home as well as a nebulizer with albuterol and ipratropium, so she is getting 2 anticholinergics. I will change her meds so that she gets only one anticholinergic and also gets a long acting beta agonist and ICS. If she is able to obtain Incruse, she may be a candidate for Trelegy ( Fluticasone, umeclidinium and vilanterol). It is always a balancing act to pick something that will help AND will be covered AND that the patient can figure out how to use. (2) Alcohol abuse: Code(s): F10.10 - Alcohol abuse, uncomplicated Status: Acute Assessment and Plan: unfortunately this is contributing to her mental status changes and poor decision-making (3) Pneumothorax on left: Code(s): J93.9 - Pneumothorax, unspecified Status: Acute Assessment and Plan: has had L spontaneous pneumothorax twice in the past, had a L upper lobectomy in 2012. (4) COPD (chronic obstructive pulmonary disease): Code(s): J44.9 - Chronic obstructive pulmonary disease, unspecified Status: Chronic Assessment and Plan: severe end-stage COPD (5) Tobacco abuse: Code(s): Z72.0 - Tobacco use Status: Chronic Assessment and Plan: continues to smoke cigarettes does not plan to quit (6) Pulmonary cachexia due to COPD: Code(s): J44.9 - Chronic obstructive pulmonary disease, unspecified; R64 - Cachexia Status: Acute Assessment and Plan: BMI is 14.5; extremely low and associated with poor prognosis (7) Hyponatremia: Code(s): E87.1 - Hypo-osmolality and hyponatremia Status: Acute Assessment and Plan: sodium is 126, may reflect effects from drinking beer vs antidepressant; Willy Singh's plan is noted; received 3% last admission History of Present Illness History of Present Illness Consult date: 07/12/20 Requesting physician: Brooke Pierson PA-C Reason for consult: other (acute and chronic respiratory failure) Chief complaint: Confusion, shortness of breath. Narrative: time of exam: 20:44 on Jul 12, 2020 NEW : Esther Brink is a 54 yo female seen in consultation for acute on chronic respiratory failure with worsening pCO2. SHe was seen in March for similar issues. She came to the ER by ambulance for shortness of breath and confusion. Now, she is able to wak
[2020-07-12] MEDS: traMADol HCL (*CRX) 25 MG TABLET PO (21:21)
[2020-07-13] VITALS (14 sets, daily range): BP systolic 83–107; BP diastolic 45–62; PULSE 73–106; RESP 16–24; TEMP 36.3–36.5; O2SAT 90–97
[2020-07-13] MEDS: LORazepam INJ (*CRX) 2 MG/ML VIAL 0.5 MG IV PUSH ×2 (03:01→17:42)
--- NOTE | 2020-07-13 03:04 | PC.NURSE ---
0220 patient continues to climb out of bed, aggitated. sitter at bedside, staff in room very frequently. difficult to re-direct. dr. long informed and orders recieved.
[2020-07-13 05:35] LABS: Anion Gap 0 mmol/L (8-16); Blood Urea Nitrogen 6 mg/dL (7-17); Calcium 8.2 mg/dL (8.4-10.2); Carbon Dioxide 36 mmol/L (22-30); Chloride 93 mmol/L (98-107); Estimated CRCL calculation 93 ml/min; Estimated Glomerular Filt Rate > 60; Glucose 81 mg/dL (65-105); Magnesium 1.8 mg/dL (1.6-2.3); Potassium 3.2 mmol/L (3.4-5.0); Sodium 129 mmol/L (137-145)
[2020-07-13] MEDS: POTASSIUM CHLORIDE 20 MEQ PACKET (FOR LIQUID) 40 MEQ PO (08:29)
[2020-07-13] MEDS: FERROUS SULFATE 324 MG TABLET PO ×2 (08:31→16:08)
[2020-07-13] MEDS: ALPRAZolam (*CRX) 0.5 MG TABLET PO ×4 (08:31→21:29)
[2020-07-13] MEDS: predniSONE 20 MG, predniSONE 10 MG 30 MG PO (08:31)
[2020-07-13] MEDS: CYANOCOBALAMIN 1,000 MCG TABLET 1000 MCG PO (08:32)
[2020-07-13] MEDS: ENOXAPARIN 30 MG/0.3 ML SYRINGE SUB-Q (08:32)
[2020-07-13] MEDS: FLUTICASONE PROPIONATE 0.05% NA SPR 16 GM BTL (*BKC) 2 SPRAY NASAL (08:32)
[2020-07-13] MEDS: ERGOCALCIFEROL 50,000 UNIT CAPSULE 50000 UNITS PO (08:32)
[2020-07-13] MEDS: THIAMINE HCL 100 MG TABLET PO (08:33)
[2020-07-13] MEDS: MONTELUKAST SODIUM 10 MG TABLET PO (08:33)
[2020-07-13] MEDS: PANTOPRAZOLE 40 MG TABLET PO (08:33)
[2020-07-13] MEDS: ROFLUMILAST 500 MCG TABLET PO (08:33)
[2020-07-13] MEDS: FOLIC ACID 1 MG TABLET PO (08:33)
[2020-07-13] MEDS: ALBUTEROL SULFATE NEB 2.5 MG/0.5 ML INH INHALATION ×4 (08:58→21:27)
--- NOTE | 2020-07-13 09:30 | PCOTNOTE ---
On 07/13/20, the student, Cathie Jaquez, provided care and completed [facility] documentation on this patient. I have reviewed the student's documentation and agree with the findings.
--- NOTE | 2020-07-13 10:55 | PC.NURSE ---
Pt assessed at 0820- mistakenly documented time for 1050
--- NOTE | 2020-07-13 11:17 | PM.IMPN ---
Progress Note: A&P Assessment and Plan (1) Acute and chronic respiratory failure: Code(s): J96.20 - Acute and chronic respiratory failure, unspecified whether with hypoxia or hypercapnia Status: Acute Assessment and Plan: [place] to be largely due to noncompliance when discharged home earlier this week. Possible COPD exacerbation component as well. She is now weaned to 1 to 2 L O2 at rest; Home O2 eval of 2L with rest and ambulation prior to discharge earlier this week. CO2 slowly improving on BMP Continue her prednisone taper Continue home meds; recommendations/changes per Dr. Suggs noted BiPAP when sleeping Neb treatments Dr. Suggs consulted and appreciate recommendations Given recent discharge and readmission likely because of her noncompliance while at home, she is likely going to need at least placement for further care as she has poor insight and will have a high likelihood of readmission if discharged home again CC following Monitor (2) Confusion: Code(s): R41.0 - Disorientation, unspecified Status: Acute Assessment and Plan: Possibly related to hypercapnia vs benzodiazepine use however tox screen negative. Mirtazapine held. Possible early dementia vs encephalopathy from chronic alcohol abuse also possibility and/or at least contributing continue to monitor closely (3) COPD with emphysema: Code(s): J43.9 - Emphysema, unspecified Status: Acute Assessment and Plan: please see above a/p (4) Chronic anemia: Code(s): D64.9 - Anemia, unspecified Status: Acute Assessment and Plan: H&H stable upon review of labs. No evidence of acute blood loss Monitor (5) Hyponatremia: Code(s): E87.1 - Hypo-osmolality and hyponatremia Status: Acute Assessment and Plan: Na 129 this morning. Hyponatremia on last hospital stay with significant improvement with holding SSRI and 3% NaCl IVF. Improvement with NS overnight Continue to hold SSRI, mirtazapine stop IVF Monitor tomorrow (6) Anxiety: Code(s): F41.9 - Anxiety disorder, unspecified Status: Acute Assessment and Plan: Anxious today. comparable to previous visit a couple days ago. On manager terminal benzodiazepine use. She was given Ativan overnight Will continue her home Xanax Monitor closely (7) Tobacco abuse: Code(s): Z72.0 - Tobacco use Status: Chronic Assessment and Plan: Cessation will be encouraged during stay (8) Alcohol abuse: Code(s): F10.10 - Alcohol abuse, uncomplicated Status: Acute Assessment and Plan: Cessation will be essential (9) Anorexia: Code(s): R63.0 - Anorexia Status: Acute Assessment and Plan: spanish professor consult placed; appreciate recommendations Supplements added to diet Subjective Date/time seen: 07/13/20 11:17 Interval history: Patient is a 54 yo F with history of COPD, Chronic Respiratory Failure on 2L O2 at home, AMY w/ panic attacks who was recently admitted and discharge on 07/10 by myself who returned to the hospital on 07/11 and is seen in follow up for acute on chronic respiratory failure with hypoxia and hypercapnia likely due to COPD exacerbation and increased confusion. Patient is a poor historian, but is A&O to self, hospital, but is unsure of president and year. She is intermittently confused and tired appearing; sitter is in the room. She thinks her breathing is okay for now. She notes some lightheadedness today. She has a a hard time giving any more descriptors. Patient does not report any pain anywhere. She denies f/c/s, cp/palpitations, n/v,
[2020-07-14] VITALS (13 sets, daily range): BP systolic 90–104; BP diastolic 50–77; PULSE 82–101; RESP 15–22; TEMP 36.2–37.1; O2SAT 84–100
[2020-07-14] MEDS: LACTATED RINGERS 500 ML 999 ML IVPB (00:15)
[2020-07-14] MEDS: ALPRAZolam (*CRX) 0.5 MG TABLET PO ×4 (03:25→20:52)
[2020-07-14] MEDS: THIAMINE HCL 100 MG TABLET PO (09:00)
[2020-07-14] MEDS: FLUTICASONE PROPIONATE 0.05% NA SPR 16 GM BTL (*BKC) 2 SPRAY NASAL (09:00)
[2020-07-14] MEDS: ENOXAPARIN 30 MG/0.3 ML SYRINGE SUB-Q (09:00)
[2020-07-14] MEDS: predniSONE 20 MG TABLET PO (09:00)
[2020-07-14] MEDS: FERROUS SULFATE 324 MG TABLET PO ×2 (09:00→16:06)
[2020-07-14] MEDS: CYANOCOBALAMIN 1,000 MCG TABLET 1000 MCG PO (09:00)
[2020-07-14] MEDS: MONTELUKAST SODIUM 10 MG TABLET PO (09:01)
[2020-07-14] MEDS: ROFLUMILAST 500 MCG TABLET PO (09:01)
[2020-07-14] MEDS: PANTOPRAZOLE 40 MG TABLET PO (09:01)
[2020-07-14] MEDS: FOLIC ACID 1 MG TABLET PO (09:01)
[2020-07-14 09:17] LABS: Anion Gap 0.99999 mmol/L (8-16); Blood Urea Nitrogen 7 mg/dL (7-17); Carbon Dioxide > 40 mmol/L (22-30); Chloride 90 mmol/L (98-107); Estimated CRCL calculation 72 ml/min; Estimated Glomerular Filt Rate > 60; Glucose 103 mg/dL (65-105); Magnesium 1.9 mg/dL (1.6-2.3); Potassium 3.6 mmol/L (3.4-5.0); Sodium 131 mmol/L (137-145)
--- NOTE | 2020-07-14 12:45 | PM.IMPN ---
Progress Note: A&P Assessment and Plan (1) Acute and chronic respiratory failure: Code(s): J96.20 - Acute and chronic respiratory failure, unspecified whether with hypoxia or hypercapnia Status: Acute Assessment and Plan: [place] to be largely due to noncompliance when discharged home earlier this week. Possible COPD exacerbation component as well. Home O2 eval of 2L with rest and ambulation prior to discharge earlier this week, however this may have been too high and contributing to CO2 retention. She is maintaining adequate oxygen saturations on 1L per NC. CO2 is increased on BMP today. Continue prednisone taper Continue albuterol, daliresp, incruse; Dr. Suggs's recommendations are appreciated BiPAP when sleeping Neb treatments Repeat home O2 eval tomorrow to evaluate ongoing oxygen requirements and appropriate amount of O2. Given recent discharge and readmission likely because of her noncompliance while at home and poor insight, she would benefit from placement given high likelihood of readmission if discharged home. CC following and she will go to [facility] upon discharge, likely tomorrow. Patient is agreeable to this plan. (2) Confusion: Code(s): R41.0 - Disorientation, unspecified Status: Acute Assessment and Plan: Possibly related to hypercapnia vs benzodiazepine use however tox screen negative. B12 wnl. Possible early dementia vs encephalopathy from chronic alcohol abuse also possibility and/or at least contributing. Continue thiamine and folic acid Mirtazipine has been held. continue to monitor closely (3) COPD with emphysema: Code(s): J43.9 - Emphysema, unspecified Status: Acute Assessment and Plan: CXR 07/11 showed severe hyperinflation. Continue medication regimen as noted above. (4) Chronic anemia: Code(s): D64.9 - Anemia, unspecified Status: Acute Assessment and Plan: H&H stable upon review of labs. No evidence of acute blood loss. Vital signs stable. Repeat H&H tomorrow. Monitor closely and transfuse as needed if Hgb <7.0 (5) Hyponatremia: Code(s): E87.1 - Hypo-osmolality and hyponatremia Status: Acute Assessment and Plan: Chronic upon review of prior labs. She received 3% NaCl IV which improved sodium. 131 today IV fluids have discontinued on 07/13.. Continue to hold escitalopram and mirtazipine. (6) Anxiety: Code(s): F41.9 - Anxiety disorder, unspecified Status: Acute Assessment and Plan: Mood stable today although she was noted to have been agitated and attempting to get up from bed, therefore a patient sitter was required. Continue PRN alprazolam monitor closely (7) Tobacco abuse: Code(s): Z72.0 - Tobacco use Status: Chronic Assessment and Plan: she smokes about half pack per day. smoking cessation has been encouraged, although patient has no interest in quitting smoking. (8) Alcohol abuse: Code(s): F10.10 - Alcohol abuse, uncomplicated Status: Acute Assessment and Plan: Probably contributing overall to her confusion. She is not forthcoming about her total alcohol intake but reports drinking several beers per day, several times per week. Continue thiamine and folic acid Alcohol cessation is essential. This was discussed, although it does not appear the patient has any interest in quitting drinking. Will provide resources for outpatient rehab and AA. (9) Anorexia: Code(s): R63.0 - Anorexia Status: Acute Assessment and Plan: Patient is thin and frail, BMI 14. She has poor oral intake. Continue dietary supplements consult has been placed to dietitian; recommendations are appreciated Resume mirtazipine when clinically appropriate to potentially stimulate appetite. Subjective Date/time seen: 07/14/20 12:45 Interval history: Date of service:
--- NOTE | 2020-07-14 13:29 | PM.PNPUL ---
Progress Note: A&P Assessment and Plan (1) Acute on chronic respiratory failure with hypoxia and hypercapnia: Code(s): J96.21 - Acute and chronic respiratory failure with hypoxia; J96.22 - Acute and chronic respiratory failure with hypercapnia Status: Acute Assessment and Plan: She has a Trilogy NPPV at home as well as O2 through [employer], and she is noncompliant with usage. Despite this equipment, she has had recurrent admissions for end stage respiratory failure with respiratory acidosis, altered mental status, admitted March 08, July 02 and again Jul 11 with very similar presentation. She has had acute on chronic respiratory acidosis. She was discharged home on 2 L at rest and with ambulation but looks like she could use may be a lower amount 1 liter/minute. This may help to reduce her carbon dioxide retention. Agree with continuing the prednisone taper, Her nurse said that she will be staying until tomorrow. She is on roflumilast and umeclidinium (Incruse) at home as well as a nebulizer with albuterol and ipratropium, so she is getting 2 anticholinergics. I will change her meds so that she gets only one anticholinergic and also gets a long acting beta agonist and ICS. If she is able to obtain Incruse, she may be a candidate for Trelegy ( Fluticasone, umeclidinium and vilanterol). It is always a balancing act to pick something that will help AND will be covered AND that the patient can figure out how to use. (2) Alcohol abuse: Code(s): F10.10 - Alcohol abuse, uncomplicated Status: Acute Assessment and Plan: unfortunately this is contributing to her mental status changes and poor decision-making (3) Pneumothorax on left: Code(s): J93.9 - Pneumothorax, unspecified Status: Acute Assessment and Plan: has had L spontaneous pneumothorax twice in the past, had a L upper lobectomy in 2012. (4) COPD (chronic obstructive pulmonary disease): Code(s): J44.9 - Chronic obstructive pulmonary disease, unspecified Status: Chronic Assessment and Plan: severe end-stage COPD (5) Tobacco abuse: Code(s): Z72.0 - Tobacco use Status: Chronic Assessment and Plan: continues to smoke cigarettes does not plan to quit (6) Pulmonary cachexia due to COPD: Code(s): J44.9 - Chronic obstructive pulmonary disease, unspecified; R64 - Cachexia Status: Acute Assessment and Plan: BMI is 14.5; extremely low and associated with poor prognosis (7) Hyponatremia: Code(s): E87.1 - Hypo-osmolality and hyponatremia Status: Acute Assessment and Plan: Sodium is increased to 131, better. Subjective Date/time seen: 07/14/20 13:29 This 54 yo female is sitting in a chair eating lunch. She forgot being told that she will be discharged to [facility]. Her nurse Krystina was at the bedside, said that it has been discussed with her. She is not having problems with breathing today, not coughing and not having sputum. She has a Trilogy [facility], however the company has been trying to contact her since April without success. There is no compliance data on use of the NPPV. She told me she didn't know what I was talking about when I asked her about the Trilogy. Later she said that she was using it all the time. I agree with plans for [facility] and use of her Trilogy there, and Home O2 evaluation before leaving to determine the appropriate amount of O2. She went out on 2 L/min last
[2020-07-14 14:02] LABS: SARS-CoV-2 RNA PCR Negative
--- NOTE | 2020-07-14 18:12 | HOMEO2EVAL ---
Home Oxygen Evaluation RC: Home Oxygen (O2) Evaluation Start: 07/14/20 15:28 Freq: ONCE Status: Active Protocol: RPE Activity Type Activity Date Activity User E-Sign Co-Sign Detail Recorded Client Recorded Date Recorded By Document 07/14/20 17:00 RES [email or web address] 07/14/20 18:04 RES Document 07/14/20 17:05 RES [email or web address] 07/14/20 18:11 RES Document 07/14/20 17:07 RES [email or web address] 07/14/20 18:11 RES Document 07/14/20 17:08 RES [email or web address] 07/14/20 18:11 RES Document 07/14/20 17:10 RES [email or web address] 07/14/20 18:11 RES Document 07/14/20 17:12 RES [email or web address] 07/14/20 18:11 RES 07/14/20 07/14/20 07/14/20 17:00 17:05 17:07 Home O2 Evaluation Test Phase Resting Exercise Exercise Oxygen Delivery Room Air Nasal Cannula Nasal Cannula Oxygen Flow Rate (L/min) 2 3 Fraction of Inspired Oxygen (%) 21 28 32 Pulse Oximetry (90-100 %) 97 84 L 86 L Pulse Rate (60-100 beats/min) 83 100 101 H Activity Tolerance Good Good Good Rate of Perceived Exertion (PE) 11 Fairly light 12 12 Home Oxygen Evaluation Comments pt was on room pt is increased pt increased to air for 5 min to 3lpm nasal 4lpm nasal and sats were cannula at this cannula due to 79%, at 1705 pt time sats in the 80' placed on 2lpm s Nasal Cannula Treatment Charges O2 Evaluation 07/14/20 07/14/20 07/14/20 17:08 17:10 17:12 Home O2 Evaluation Test Phase Exercise Exercise Resting Oxygen Delivery Nasal Cannula Nasal Cannula Nasal Cannula Oxygen Flow Rate (L/min) 4 4 1 Fraction of Inspired Oxygen (%) 36 36 24 Pulse Oximetry (90-100 %) 90 90 96 Pulse Rate (60-100 beats/min) 93 93 94 Activity Tolerance Good Good Good Rate of Perceived Exertion (PE) 12 12 12 Home Oxygen Evaluation Comments pt sats increase to high 90's when resting. Treatment Charges
[2020-07-14] MEDS: ALBUTEROL SULFATE NEB 2.5 MG/0.5 ML INH INHALATION (20:14)
[2020-07-15] VITALS (9 sets, daily range): BP systolic 86–96; BP diastolic 50–63; PULSE 20–103; RESP 18–79; TEMP 36.5–36.9; O2SAT 95–100
[2020-07-15] MEDS: ALBUTEROL SULFATE (*SP) AEROSOL 1 PUFF 2 PUFF INHALATION (00:29)
[2020-07-15] MEDS: ALPRAZolam (*CRX) 0.5 MG TABLET PO (03:24)
[2020-07-15 06:01] LABS: Hematocrit 37.2 % (37.0-47.0); Hemoglobin 11.7 g/dL (12.0-15.0); Mean Corpuscular HGB Conc 31.5 g/dl (32-36); Mean Corpuscular Hemoglobin 30.5 pg (26-34); Mean Corpuscular Volume 97.1 fl (80-100); Mean Platelet Volume 8.4 fl (7.4-10.4); Platelet Count Result 549 k/mm3 (150-375); Red Blood Count 3.83 M/mm3 (4.2-5.4); Red Cell Distribution Width 12.1 % (11.5-14.5); White Blood Count 10.6 K/mm3 (4.5-10.0)
[2020-07-15 06:12] LABS: Anion Gap -0.00001 mmol/L (8-16); Blood Urea Nitrogen 9 mg/dL (7-17); Calcium 9.1 mg/dL (8.4-10.2); Carbon Dioxide > 40 mmol/L (22-30); Chloride 90 mmol/L (98-107); Estimated CRCL calculation 93 ml/min; Estimated Glomerular Filt Rate > 60; Glucose 115 mg/dL (65-105); Potassium 3.7 mmol/L (3.4-5.0); Sodium 130 mmol/L (137-145)
[2020-07-15] MEDS: ALBUTEROL SULFATE NEB 2.5 MG/0.5 ML INH INHALATION ×2 (08:13→13:01)
[2020-07-15] MEDS: MONTELUKAST SODIUM 10 MG TABLET PO (09:25)
[2020-07-15] MEDS: FERROUS SULFATE 324 MG TABLET PO (09:25)
[2020-07-15] MEDS: THIAMINE HCL 100 MG TABLET PO (09:25)
[2020-07-15] MEDS: FOLIC ACID 1 MG TABLET PO (09:25)
[2020-07-15] MEDS: ROFLUMILAST 500 MCG TABLET PO (09:25)
[2020-07-15] MEDS: predniSONE 20 MG TABLET PO (09:26)
[2020-07-15] MEDS: CYANOCOBALAMIN 1,000 MCG TABLET 1000 MCG PO (09:26)
[2020-07-15] MEDS: PANTOPRAZOLE 40 MG TABLET PO (09:26)
[2020-07-15] MEDS: FLUTICASONE PROPIONATE 0.05% NA SPR 16 GM BTL (*BKC) 2 SPRAY NASAL (09:26)
[2020-07-15] MEDS: ENOXAPARIN 30 MG/0.3 ML SYRINGE SUB-Q (09:26)
[2020-07-15] MEDS: ACETAMINOPHEN 325 MG TABLET 650 MG PO (11:32)
--- NOTE | 2020-07-15 12:03 | PM.DS ---
DS: Admitting Diagnosis Admitting Diagnosis Admitting Diagnosis: Confusion, shortness of breath. DS: Discharge Diagnosis Discharge Diagnosis (1) Acute and chronic respiratory failure: Code(s): J96.20 - Acute and chronic respiratory failure, unspecified whether with hypoxia or hypercapnia Status: Acute Assessment and Plan: [place] to be largely due to noncompliance when discharged home on 07/10/20. Recently hospitalized for COPD exacerbation. Had not been using home Trilogy or taking medications. She had home O2 eval prior to discharge 07/10 indicating 2L O2 requirement with rest and ambulation. However, it was felt that this may be too high and contributing to CO2 retention. Repeat home O2 eval on 07/14 demonstrated 1L O2 requirement with rest and 4L with activity. She was seen in consultation by pulmonology. Prednisone taper was continued. She will continue albuterol-ipratropium nebs q6h. Incruse was discontinued to avoid duplicate anticholinergic therapy. Continue roflumilast. Pulmicort nebs bid initiated. Given recent discharge and likelihood of readmission due to her noncompliance while at home and poor insight, she will benefit from placement given high likelihood of readmission if discharged home. She was discharged to [facility] and was agreeable to this plan. She is on trilogy at home, but remained on bipap during her stay. It was recommended that she continue trilogy while at SNF. Unfortunately, this requires a contract with the facility. I was in close communication with CC who spoke with staff at [facility] regarding obtaining contract to allow patient to continue trilogy. It seems this contract takes several days to obtain. Therefore, recommended that patient continue BiPAP at [facility] until contract is obtained. At that time, recommend transition to trilogy use. (2) Confusion: Code(s): R41.0 - Disorientation, unspecified Status: Acute Assessment and Plan: Possibly related to hypercapnia vs benzodiazepine use however tox screen negative. B12 wnl. Possible early dementia vs encephalopathy from chronic alcohol abuse also possibility and/or at least contributing. Head CT unremarkable. Per discussion with her sons, she has demonstrated confusion for some time and sons felt that she would have difficulty caring for herself at home. Continue thiamine and folic acid. Follow up with PCP for monitoring. (3) COPD with emphysema: Code(s): J43.9 - Emphysema, unspecified Status: Acute Assessment and Plan: CXR 07/11 showed severe hyperinflation. Continue medication regimen as noted above. (4) Chronic anemia: Code(s): D64.9 - Anemia, unspecified Status: Acute Assessment and Plan: H&H remained stable upon review of labs. No evidence of acute blood loss. Vital signs stable. (5) Hyponatremia: Code(s): E87.1 - Hypo-osmolality and hyponatremia Status: Acute Assessment and Plan: Chronic upon review of prior labs. She received 3% NaCl IV which improved sodium. IV fluids discontinued on 07/13. Sodium 130 on day of discharge. (6) Anxiety: Code(s): F41.9 - Anxiety disorder, unspecified Status: Acute Assessment and Plan: She had been anxious and attempting to get up from bed and leave the hospital, therefore patient sitter was required, similar to last hospital stay. She did not have any episode of acute agitation. Continue PRN alprazolam. (7) Tobacco abuse: Code(s): Z72.0 - Tobacco use Status: Chronic Assessment and Plan: She smokes about half pack per day. Smoking cessation was encouraged by multiple providers, although patient has no interest in quitting smoking. I personally spent 3 minutes counseling patient on tobacco cessation. (8) Alcohol abuse: Code(s): F10.10 - Alcohol abuse, uncomplicated Status: Acute Assessment and Plan: Probably contributing overall to her confusion. Sh
== END 2020-07-15 16:10 | DRG 189 ==
LOC: ANHED 16:04 → ANHIMU 20:35 → ANH2MED 07-12 14:21 → ANHIMU 07-17 11:45
PROVIDERS: Emergency Medicine Emergency Medical Services; Physician Assistant; Admitting Provider Family Medicine; Emergency Provider Emergency Medicine; PCP Family Medicine; Visit Provider Physician Assistant
DX: J96.21 Acute and chronic respiratory failure with hypoxia (principal); E87.1 Hypo-osmolality and hyponatremia; E46 Unspecified protein-calorie malnutrition; Z68.1 Body mass index [BMI] 19.9 or less, adult; R64 Cachexia; J96.22 Acute and chronic respiratory failure with hypercapnia; Z91.19 Patient's noncompliance with other medical treatment and regimen; Z20.828 Contact with and (suspected) exposure to other viral communicable diseases; G31.2 Degeneration of nervous system due to alcohol; J43.9 Emphysema, unspecified; F10.10 Alcohol abuse, uncomplicated; F41.1 Generalized anxiety disorder; R63.0 Anorexia; E55.9 Vitamin D deficiency, unspecified; D51.9 Vitamin B12 deficiency anemia, unspecified; R41.0 Disorientation, unspecified; F03.90 Unspecified dementia, unspecified severity, without behavioral disturbance, psychotic disturbance, mood disturbance, and anxiety; K21.9 Gastro-esophageal reflux disease without esophagitis; F17.210 Nicotine dependence, cigarettes, uncomplicated; Z99.81 Dependence on supplemental oxygen
CPT/HCPCS: 36415; 36600; 70450; 71045; 80048; 80053; 80307; 81001; 82375; 82607; 82805; 83050; 83605; 83690; 83735; 84484; 85025; 85027; 85610; 85730; 86140; 87040; 87086; 87635; 93005; 94002; 94003; 94618; 94640; 94660; 96361; 96374; 97110; 97161; 97165; 97530; 97535; 99291; A9270; C9803; J1650; J2060; J2930; J7030; J7120; J7512; U0003

== ENCOUNTER 2020-08-04 00:56 | Observation (INO) | payer MEDICARE, MEDICAID, SELFPAY ==
[2020-08-04] VITALS (26 sets, daily range): BP systolic 95–121; BP diastolic 60–79; PULSE 76–132; RESP 19–28; TEMP 36.7–37.3; O2SAT 89–100; BMI 12.2
--- NOTE | ~2020-08-04 | CT_ITS ---
EXAMINATION: CT brain wo con DATE: 08/04/2020 05:29 INDICATION: Confusion. TECHNIQUE: Computed tomography (CT) of the head was performed without intravenous contrast. The mA wa s adjusted according to patient size. Iterative reconstruction technique was employed. The dose-lengt h product was 529.67 mGy-cm. COMPARISON: Head CT 07/11/2020, neck CT 03/03 FINDINGS: There is mild motion artifact. There are scattered areas of low attenuation in the cerebral white matter, which is within normal limits for the patient's age. There is no intracranial hemorrha ge, acute infarction, or abnormal intracranial mass lesion. The ventricles are normal in size. There is mild mucosal thickening in the paranasal sinuses. The orbits are normal. There is a small right ma stoid effusion. There is a chronic lytic lesion in left parietal bone, consistent with a hemangioma. IMPRESSION: 1. Normal aging brain. Reviewed, dictated and finalized at location A. IMPRESSION: 1. Normal aging brain.
--- NOTE | ~2020-08-04 | XR_ITS ---
EXAMINATION: XR chest 2V DATE: 08/04/2020 02:13 INDICATION: Dyspnea. Chronic obstructive pulmonary disease. TECHNIQUE: Frontal and lateral views of the chest were obtained. COMPARISON: Chest single view 07/11/2020, chest CT 03/10/2020 FINDINGS: There are lucencies in the lungs with architectural distortion, consistent with emphysema. There are staple lines in the lungs. There is bandlike scarring in left midlung zone. No pleural effu alyssa or pneumothorax. The heart size is normal. There is a burst fracture in mid thoracic spine. Ther e is an old healed fracture of left seventh rib. IMPRESSION: 1. Severe emphysema. 2. Burst fracture of mid thoracic spine, new from 03/10/2020. Reviewed, dictated and finalized at location A.
--- NOTE | 2020-08-04 00:54 | ED.SOB ---
HPI - SOB/Dyspnea General Chief Complaint: Anxiety Stated Complaint: sob Source: patient and EMS Mode of arrival: EMS Limitations: no limitations History of Present Illness HPI Narrative: Patient is a 54-year-old female with a history of COPD, chronically on 2 to 4 L oxygen, who presents for evaluation anxiety. Patient reports that she had a malfunction with her nasal cannula oxygenation, called EMS, EMS responded and was able to reconnect her to being with adequate oxygenation. Patient then refused ambulance transport. Patient was called back again after she had another tubing disconnection and was unable to refastened herself, to which EMS responded and was able to fix the nasal cannula. Patient then became very anxious and jittery, stating she was worried about her oxygen requirements and wanted to be evaluated at the hospital. Patient transported on oxygen of 4 L, reporting mild shortness of breath that has resolved since being placed back on her oxygen. She reports chronic cough, denies fever, chills or chest pain. She reports extreme anxiety and feeling very jittery. She is repeatedly asking for medication to help with her anxiety. Patient denies any increased oxygen requirement. No increased sputum production with her cough. Again, denies chest pain. Related Data Home Medications Medication Instructions Recorded Confirmed montelukast 10 mg PO DAILY 10/19/19 07/11/20 omeprazole 20 mg PO DAILY 10/19/19 07/11/20 escitalopram oxalate 10 mg PO DAILY 11/15/19 07/11/20 folic acid 1 mg PO DAILY 03/07/20 07/11/20 mirtazapine 15 mg PO HS 03/07/20 07/11/20 thiamine HCl (vitamin B1) 100 mg PO DAILY 03/07/20 07/11/20 ergocalciferol (vitamin D2) 50,000 unit PO WEEKLY 03/08/20 07/11/20 fluticasone propionate [Flonase 2 spray INTRANASAL DAILY 03/08/20 07/11/20 Allergy Relief] Allergies Allergy/AdvReac Type Severity Reaction Status Date / Time clindamycin Allergy Severe anaphylactic Verified 08/04/20 01:07 reaction, rash clarithromycin [From Biaxin] Allergy Hives Verified 08/04/20 01:07 Review of Systems Review of Systems: Narrative: CONSTITUTIONAL: Denies fever, chills, or sweats. ENT: Denies rhinorrhea, congestion, sore throat, or otalgia. CARDIOVASCULAR: Denies chest pain, palpitations, or edema. RESPIRATORY: Reports chronic cough and shortness of breath GASTROINTESTINAL: Denies abdominal pain, nausea, vomiting, or diarrhea. GENITOURINARY: Denies dysuria or hematuria. SKIN: Denies rash or itching. MUSCULOSKELETAL: Denies back pain, joint pain, or myalgia. NEUROLOGIC: Denies headache, numbness, or weakness. PSYCHIATRIC: Reports anxiety PMFSH Past Medical History Medical History Abnormal EKG EKG has previously shown ST elevation which appears to be early repolarization. Alcohol abuse Anorexia Anxiety Asthma B12 deficiency anemia Chronic anemia Chronic respiratory failure with hypoxia and hypercapnia COPD with emphysema Gastroesophageal reflux disease Generalized anxiety disorder with panic attacks Spontaneous pneumothorax (~08/2012) Several pneumothoraces status post VATS procedure and apical blebectomy as well as pleurodesis. Tobacco abuse Vitamin D deficiency Surgical History Surgical History History of bilateral tubal ligation History of History of hip surgery (~07/2019) ORIF of right hip fracture. History of tonsillectomy Status post thoracotomy Left-sided VATS procedure and apical bleb resection with pleurodesis. Family History Family History Father Acute myocardial infarction Father No problems noted. Unknown No problems noted. Mother No problems noted. Sibling No problems noted. Social History Social History Social History: [facility]
--- NOTE | 2020-08-04 01:08 | PC.NURSE ---
Pt has no list of medications and is unable to verify her home medications at this time.
--- NOTE | 2020-08-04 01:14 | ECG_ITS ---
Measurements Intervals [place] Rate: 107 P: 86 TN: 132 QRS: 33 QRSD: 81 T: 85 QT: 345 QTc: 462 Interpretive Statements SINUS TACHYCARDIA CONSIDER INFERIOR INFARCT, AGE INDETERMINATE CONSIDER ANTEROLATERAL INFARCT, AGE INDETERMINATE BASELINE ARTIFACT- I, III, V1-V5 ABNORMAL ECG Electronically Signed On 08-04-2020 7:36:27 CDT by Quinton Bell D.O.
[2020-08-04] MEDS: LORazepam (*CRX) 0.5 MG TABLET PO (01:19)
[2020-08-04] MEDS: methylPREDNISolone SOD SUCC 125 MG VIAL IV PUSH (01:26)
[2020-08-04 01:30] LABS: Alveolar/Arterial O2 Gradient 68.3 mmHg; Base Excess ABG 5.3 mEq/l (+/-2.0); Carboxyhemoglobin 0.1 % THb (0-2.0); Fractional Inspired Oxygen 30 %; Methemoglobin ABG 0.2 %THb (0-1.5); Oxygen Content ABG 16.5 %vol (16.0-22.0); Oxygen Saturation ABG 96.6 % (95.0-100.0); Oxyhemoglobin 95.4 % THb (90.0-100.0); PO2 ABG 86.9 mmHg (80.0-100.0); Reduced Hemoglobin 4.3 %THb (0-5.0); Total Hemoglobin 12.2 g/dL (12.0-18.0)
[2020-08-04] MEDS: IPRATROPIUM BR 0.02% INH SOLN 0.5 MG/2.5 ML VIAL INHALATION ×3 (01:30→14:11)
[2020-08-04] MEDS: ALBUTEROL SULFATE NEB 2.5 MG/0.5 ML INH 5 MG INHALATION ×3 (01:30→14:11)
[2020-08-04 01:32] LABS: Device NASAL CANNULA; Liters per Minute 2.5 LPM; Modified Allen's Test Pass; Site Drawn RIGHT RADIAL
[2020-08-04 01:39] LABS: Basophils Absolute Auto 0.1 K/mm3 (0.0-0.1); Basophils Percent Auto 0.6 % (0.2-1.2); Eosinophils Absolute Auto 0.2 K/mm3 (0-0.3); Eosinophils Percent Auto 1.9 % (0-4.4); Hematocrit 36.5 % (37.0-47.0); Hemoglobin 11.3 g/dL (12.0-15.0); Immature Granulocyte Absolute 0.02 K/mm3 (0.00-0.031); Immature Granulocyte Percent A 0.3 % (0-0.5); Lymphocytes Absolute Auto 1.23 K/mm3 (0.9-3.2); Lymphocytes Percent Auto 15.4 % (18.3-44.2); Mean Corpuscular Hemoglobin 30.4 pg (26-34); Mean Corpuscular Volume 98.1 fl (80-100); Mean Platelet Volume 8.9 fl (7.4-10.4); Monocytes Absolute Auto 0.8 K/mm3 (0.1-0.6); Monocytes Percent Auto 10.1 % (2.6-8.5); Neutrophils Absolute Auto 5.7 K/mm3 (1.3-6.7); Neutrophils Percent Auto 71.7 % (45.5-73.1); Platelet Count Result 444 k/mm3 (150-375); Red Blood Count 3.72 M/mm3 (4.2-5.4); Red Cell Distribution Width 12.3 % (11.5-14.5)
[2020-08-04 01:49] LABS: Anion Gap 4 mmol/L (8-16); Blood Urea Nitrogen 3 mg/dL (7-17); Calcium 8.8 mg/dL (8.4-10.2); Carbon Dioxide 35 mmol/L (22-30); Chloride 97 mmol/L (98-107); Estimated CRCL calculation 93 ml/min; Estimated Glomerular Filt Rate > 60; Glucose 95 mg/dL (65-105); Potassium 3.6 mmol/L (3.4-5.0); Sodium 136 mmol/L (137-145)
--- NOTE | 2020-08-04 03:49 | PC.NURSE ---
Pt noted to still be in the room, sleeping. Asked if patient had questions about her d/c instructions, states she wasn't aware that she was ready to go. Asked for number of someone whom can drive her home, states to call her friend Ophelia at [phone]. Call to Ophelia, no answer, no identifying voicemail. Message left to return call to ED.
--- NOTE | 2020-08-04 04:07 | PC.NURSE ---
Call returned from Ophelia Cheek pt's friend. She states that she does not have oxygen for the patient, that she hasn't had a lot of contact with the patient, and would prefer not to come and get the patient if at all possible. Told to call Qamar pt's son to come and get her.
--- NOTE | 2020-08-04 04:12 | PC.NURSE ---
Call to patient's son Qamar at [phone]. States he was wanting to set up home health, or someone that can stay with her 11/05 for the patient. States is waiting to hear back from pt's primary doctor. Explained that if he feels the patient isn't safe that someone should stay with her until contact is made with her primary physician. Explained that the patient was screened and did not express that she needed help at home. Qamar states he will go get the patients oxygen and be by to get the patient.
--- NOTE | 2020-08-04 04:45 | PC.NURSE ---
Pt continues to await ride home. Called to patient's room, pt requesting that her armband be cut off, states I have to go to [place] and get my drivers license . Pt reoriented to place and time. States well, I know I have to give you the papers from when I was here yesterday . Dr. Brown made aware of pt being more confused at this time.
--- NOTE | 2020-08-04 04:57 | PC.NURSE ---
Reconnected to monitoring system.
--- NOTE | 2020-08-04 05:08 | PC.NURSE ---
Dr. Brown at bedside for reevaluation. Agrees pt has a change in mentation and is A/O x2. (name and place only). Additional tests added on. Call to Qamar to explain. Qamar becomes angry, states that he was told to come and get his mother. Explained that his mother's tests are coming back, but that she is becoming more confused while waiting for him. Qamar states that she has been to this facility multiple times and that you always release her to home. I've talked to social service manager several times and it doesn't help, they always discharge her . Explained that he needs to come and speak to the physician, that we have no idea because the patient isn't telling us. Qamar states I have to work, I don't know what you want me to do . He states he is enroute and will be here in approx 30 minutes.
--- NOTE | 2020-08-04 05:19 | PC.NURSE ---
To CT via stretcher.
[2020-08-04] MEDS: SODIUM CHLORIDE 0.9% IV 1,000 ML 100 ML IV CONT (05:49)
[2020-08-04] MEDS: LORazepam INJ (*CRX) 2 MG/ML VIAL 0.5 MG IV PUSH (05:49)
--- NOTE | 2020-08-04 05:57 | PC.NURSE ---
Note pt has involuntary shaking of extremities. Asked pt if she drinks alcohol, states she drinks beer but not daily. Reports sometimes up to 12 beers at a time. I probably drink a case a month .
[2020-08-04 06:00] LABS: Add Urine Microscopic? YES; Appearance Urine Clear (Clear); Bilirubin Urine Negative (Negative); Blood Urine Negative (Negative); Color Urine Straw (Yellow); Glucose Urine UA Negative (Negative); Ketones Urine 1+ mg/dL (Negative); Leukocyte Esterase Ur Negative LEU/UL (Negative); Mucus Urine Rare /lpf; Nitrate Urine Negative (Negative); Protein Urine Negative (Negative); RBC Urine 0-2 /hpf (0-2); Specific Grav Ur 1.006 (1.001-1.035); Squamous Epithelial Cell Urine Rare /hpf (Few); Urobilinogen Urine Negative mg/dL (<2.0); WBC Urine 0-3 /hpf
[2020-08-04 06:05] LABS: Ethanol < 10 mg/dL (<10)
[2020-08-04 06:13] LABS: Amphetamine Screen Urine Negative (Negative); Barbiturate Screen Urine Negative (Negative); Benzodiazepines Screen Urine Negative (Negative); Cannabinoid Screen Urine Negative (Negative); Cocaine Screen Urine Negative (Negative); Methadone Screen Urine Negative (Negative); Opiate Screen Urine Negative (Negative); Phencyclidine Screen Urine Negative (Negative)
[2020-08-04] MEDS: THIAMINE HCL 200 MG/2 ML VIAL 100 MG IV PUSH (06:13)
--- NOTE | 2020-08-04 06:29 | PM.IMHP ---
H&P: HPI History of Present Illness Date/Time: 08/04/20 06:29 Chief complaint: disorientation,copd Narrative: Esther Brink is a 54 year old female Has a history of COPD. She is chronically on oxygen at 2-3 L. She also has a history of alcoholism. The EMS was called to her house because of confusion. However the patient had her oxygen disconnected and they showed her how to reconnect her oxygen. When the ambulance was still in a driveway should call 911 again and had disconnected her tubing again. The patient became very anxious and nervous and worried about her oxygen. Patient brought her in to [facility] 4 L per nasal cannula. The patient had been reporting shortness of breath when EMS came the 1st time. However the patient had been off her oxygen. The patient was just discharged from here on 07/10/2020 she went to [facility] For brief period time. The patient lives home alone. according to her discharge note the patient had been on a trilogy at home and had remained on a BiPAP while she was here. The patient was not able to get a trilogy at the assisted. The patient has some disorientation while she was here. Patient was placed on the CIWA protocol and is felt that she may have been going through withdrawals at that time. Today the ER providers stated she was going to try to send the patient back home however the patient lives home alone and the patient became very confused and believes that Carolyn is still a president. She did know what day it was her where she is. The patient had been given a nebulizer treatment while in the emergency room they gave her some Ativan, she was given thiamin and folic acid as well. Patient is being admitted to medical floor for observation for possible alcohol withdrawal tremors and delirium. With chronic hypoxia with COPD. Patient's toxicology screen was negative her alcohol level was less than 10. Her ABG on 2.5 L pH was normal at 7.410 and her CO2 was 50. Which is much improved from previous levels. her head CT was reported as negative. Her chest x-ray was read as nothing acute. Patient is being admitted for observation on 08/04/2020 Review of Systems Review of Systems: ROS unobtainable: Yes unobtainable due to medical condition Constitutional: Constitutional: Reports as per HPI and Reports no additional constitutional complaints Eyes: Eyes: Reports as per HPI and Reports no additional eye complaints ENT: Reports system reviewed and no additional complaints, except as documented and Reports Normal hearing present Cardiovascular: Cardiovascular: Reports no additional cardiovascular complaints Respiratory: Respiratory: Reports no additional respiratory complaints and Reports no additional respiratory complaints Gastrointestinal: Gastrointestinal: Reports as per HPI and Reports no additional gastrointestinal complaints Musculoskeletal: Musculoskeletal: Reports no additional musculoskeletal complaints Integumentary/Breasts: Skin/Breast: Reports system reviewed and no additional complaints, except as docu and Reports as per HPI Neurologic: Reports system reviewed and no additional complaints, except as documented, Reports as per HPI and Reports Normal hearing present Psychiatric: Psychiatric: Reports no additional psychiatric complaints and Reports as per HPI Endocrine: Endocrine: Reports no additional endocrine complaints Hematologic/Lymphatic: Hematologic/Lymphatic: Reports no additional hematologic/lymphatic complaints Allergic/Immunologic: Allergic/Immunologic: Reports no additional allergic/immunologic complaints PMFSH Past Medical History Medical History Abnormal EKG EKG has previously shown ST elevation which appears to be early repolarization. Alcohol abuse Anorexia Anxiety Asthma B12 deficiency anemia Chronic anemia Chronic respiratory failure with hypoxia and hypercapnia COPD with emphysema Gastroesop
[2020-08-04 06:45] LABS: Ammonia < 9 umol/L (9-30)
--- NOTE | 2020-08-04 07:19 | PC.NURSE ---
Attempt to call report, floor unable to take.
[2020-08-04] MEDS: FOLIC ACID 1 MG/0.2 ML INJ IV PUSH (07:26)
--- NOTE | 2020-08-04 07:45 | ADMGEN ---
This patient, Esther Brink, was admitted to Medical Room 246-. Patient/family oriented to hospital policies and general routines including ID bracelet, bed and alarms, visiting hours, pain management, procedures, bathroom and other care routines, personal items, smoking policy, room service/diet, and visiting hours. Information on how to activate the Rapid Response Team has been discussed. Patient/Family are encouraged to report perceived risks to care and to ask questions if they do not understand what they are told or what they should do.
--- NOTE | 2020-08-04 07:56 | PM.IMPN ---
Progress Note: A&P Assessment and Plan (1) Alcoholic delirium: Code(s): F10.231 - Alcohol dependence with withdrawal delirium Status: Acute Assessment and Plan: 1:1 Sitter in the room Librium Ativan CIWA protocol (2) Anxiety: Code(s): F41.9 - Anxiety disorder, unspecified Status: Acute Assessment and Plan: Ativan prn. (3) Disorientation: Code(s): R41.0 - Disorientation, unspecified Status: Acute Assessment and Plan: Supportive care. (4) Alcohol abuse: Code(s): F10.10 - Alcohol abuse, uncomplicated Status: Acute Assessment and Plan: Supportive care GGT pending Magnesium pending. (5) COPD with emphysema: Code(s): J43.9 - Emphysema, unspecified Status: Acute Assessment and Plan: Continue home meds Continue to monitor (6) Chronic respiratory failure with hypoxia and hypercapnia: Code(s): J96.11 - Chronic respiratory failure with hypoxia; J96.12 - Chronic respiratory failure with hypercapnia Status: Acute Assessment and Plan: On supplemental O2. (7) Alcohol abuse, daily use: Code(s): F10.10 - Alcohol abuse, uncomplicated Status: Chronic Assessment and Plan: 12 step program referral in the outpatient setting. (8) Macrocytic anemia: Code(s): D53.9 - Nutritional anemia, unspecified Status: Acute Assessment and Plan: Current MCV is WNL Continue to monitor (9) Protein-calorie malnutrition, severe: Code(s): E43 - Unspecified severe protein-calorie malnutrition Status: Acute Assessment and Plan: Dietary/Cash Control Specialist consult. Subjective Date/time seen: 08/04/20 07:56 'I feel fine Review of Systems Review of Systems: Narrative: Unable to obtain as patient is unable to give much history due to her underlying ETOH dependence undergoing thru withdrawal. Exam Narrative: Exam Narrative: ETOH dependence/withdrawal brought to ED. Const: General: cooperative, alert, awake, anxious, well groomed and other (Tremors, jittery.) Nutritional Appearance: cachectic Orientation/consciousness: oriented to person and confusion HENMT: Head: normal to inspection and normocephalic Ears: hearing grossly normal bilaterally General nose exam: Normal external nose present Face and sinus: normal facial exam Mouth: Yes Normal oral and palatal mucosa present Eyes: General: appearance normal, both eyes and all related structures Pupils: Equal, round and reactive pupils present EOM: EOMs intact bilaterally Neck: Neck: normal visual inspection, no lymphadenopathy and no JVD Resp: Effort & Inspection: able to speak in complete sentences Auscultation: clear to auscultation bilaterally Cardio: Jugular venous distension: no JVD Rate: tachycardic Heart sounds: S1 normal heart sound present and S2 normal heart sound present GI: Inspection: normal to inspection GI Palp: Yes Soft to palpation and Yes No hepatosplenomegaly present Auscultation: normal bowel sounds Skin: General skin exam: normal color Lesions: no lesions Rashes: no rashes Trauma: no lacerations or abrasions Wounds: no wounds Neuro: General: oriented to person, CN's II-XI intact bilaterally and confusion Cranial nerves: Yes CN's II-XII intact bilaterally and Yes Equal, round and reactive pupils present Motor exam (neuro): 5/5 motor strength present throughout and Tremors during motor activity present Sensory Exam: normal sensation Extrem: General: normal to inspection and no pedal edema Psych: Appearance: grossly normal Mental Status: mental status grossly normal Speech and movement: Restless speech present Affect: Anxious affect present Thought process: Loose association thought process present Thought content: Yes Hallucination(s) present Insight: Fair insight present (Psych) Judgement: Fair judgement present (Psych) Objective Data Vital Signs Vital Signs: Vital Signs - 24 hr 07/19
[2020-08-04] MEDS: THIAMINE HCL 100 MG TABLET PO (08:27)
[2020-08-04] MEDS: FOLIC ACID 1 MG TABLET PO (08:27)
[2020-08-04] MEDS: chlordiazePOXIDE (*CRX) 25 MG CAPSULE PO ×4 (08:27→23:33)
[2020-08-04] MEDS: LORazepam (*CRX) 1 MG TABLET PO (13:31)
[2020-08-04] MEDS: NICOTINE (*PBKC) 7 MG PATCH 1 PATCH TRANSDERM (16:13)
[2020-08-05] VITALS (21 sets, daily range): BP systolic 75–95; BP diastolic 43–54; PULSE 75–107; RESP 16–20; TEMP 36.2–37.2; O2SAT 92–100
--- NOTE | 2020-08-05 03:05 | PCRCNOTE ---
DUE TO PT ANXIETY AND DISORIENTATION, RESPIRATORY TREATMENTS WERE HELD. RAHUL HORNER AGREED TO CALL RESPIRATORY IF PT NEEDED MEDICATIONS.
[2020-08-05] MEDS: SODIUM CHLORIDE 0.9% IV 500 ML 999 ML IV CONT (04:58)
[2020-08-05] MEDS: chlordiazePOXIDE (*CRX) 25 MG CAPSULE PO (05:33)
[2020-08-05] MEDS: ALBUTEROL SULFATE NEB 2.5 MG/0.5 ML INH 5 MG INHALATION ×3 (08:27→20:10)
[2020-08-05] MEDS: IPRATROPIUM BR 0.02% INH SOLN 0.5 MG/2.5 ML VIAL INHALATION ×3 (08:28→20:11)
[2020-08-05] MEDS: FOLIC ACID 1 MG TABLET PO (08:47)
[2020-08-05] MEDS: THIAMINE HCL 100 MG TABLET PO (08:47)
[2020-08-05] MEDS: NICOTINE (*PBKC) 7 MG PATCH 1 PATCH TRANSDERM (08:47)
[2020-08-05 09:17] LABS: Hematocrit 33.9 % (37.0-47.0); Hemoglobin 10.4 g/dL (12.0-15.0); Mean Corpuscular HGB Conc 30.7 g/dl (32-36); Mean Corpuscular Hemoglobin 30.6 pg (26-34); Mean Corpuscular Volume 99.7 fl (80-100); Mean Platelet Volume 9.2 fl (7.4-10.4); Platelet Count Result 433 k/mm3 (150-375); Red Cell Distribution Width 12.2 % (11.5-14.5); White Blood Count 5.4 K/mm3 (4.5-10.0)
[2020-08-05 09:29] LABS: Alanine Aminotransferase 6 U/L (4-35); Albumin Level 2.8 g/dL (3.5-5.1); Alkaline Phosphatase 58 U/L (38-126); Anion Gap -1 mmol/L (8-16); Aspartate Amino Transferase 17 U/L (14-36); Bilirubin,Total 0.2 mg/dL (0.2-1.3); Blood Urea Nitrogen 5 mg/dL (7-17); Calcium 8.3 mg/dL (8.4-10.2); Carbon Dioxide 38 mmol/L (22-30); Chloride 106 mmol/L (98-107); Estimated CRCL calculation 62 ml/min; Estimated Glomerular Filt Rate > 60; Glucose 80 mg/dL (65-105); Potassium 3.3 mmol/L (3.4-5.0); Sodium 143 mmol/L (137-145)
[2020-08-05] MEDS: SODIUM CHLORIDE 0.9% IV 500 ML IV CONT (10:44)
[2020-08-05] MEDS: SODIUM CHLORIDE 0.9% IV 1,000 ML 125 ML IV CONT ×2 (10:44→19:53)
--- NOTE | 2020-08-05 10:52 | PCOTNOTE ---
Attempted OT evaluation this AM. Per RN, patient's BP is too low at this time. Will continue to attempt.
--- NOTE | 2020-08-05 13:04 | PM.IMPN ---
Progress Note: A&P Assessment and Plan (1) Alcoholic delirium: Code(s): F10.231 - Alcohol dependence with withdrawal delirium Status: Acute Assessment and Plan: 1:1 Sitter in the room Librium Ativan CIWA protocol 08/05/20 13:04 patient is a 54-year-old female with a history of alcohol abuse, COPD with chronic respiratory failure on home oxygen apparently she had a problem with her oxygen tubing and was unable to reconnect to oxygen supply at home, patient was quite anxious and confused, brought to the emergency department for further evaluation, patient is a very poor historian and does not provide details of her alcohol intake, patient was placed on CIWA protocol, on Librium and Ativan as needed, today patient is clinically stable however pressure is running soft, patient denies any complaints of chest pain, shortness of breath, palpitation or dizziness, patient is being hydrated, patient is also on thiamine and folic acid, will continue to monitor will have a PT OT evaluate the patient if remains stable may discharge home tomorrow. (2) Anxiety: Code(s): F41.9 - Anxiety disorder, unspecified Status: Acute Assessment and Plan: Ativan prn. (3) Disorientation: Code(s): R41.0 - Disorientation, unspecified Status: Acute Assessment and Plan: Supportive care. (4) Alcohol abuse: Code(s): F10.10 - Alcohol abuse, uncomplicated Status: Acute Assessment and Plan: Supportive care GGT pending Magnesium pending. (5) COPD with emphysema: Code(s): J43.9 - Emphysema, unspecified Status: Acute Assessment and Plan: Continue home meds Continue to monitor (6) Chronic respiratory failure with hypoxia and hypercapnia: Code(s): J96.11 - Chronic respiratory failure with hypoxia; J96.12 - Chronic respiratory failure with hypercapnia Status: Acute Assessment and Plan: On supplemental O2. (7) Alcohol abuse, daily use: Code(s): F10.10 - Alcohol abuse, uncomplicated Status: Chronic Assessment and Plan: 12 step program referral in the outpatient setting. (8) Macrocytic anemia: Code(s): D53.9 - Nutritional anemia, unspecified Status: Acute Assessment and Plan: Current MCV is WNL Continue to monitor (9) Protein-calorie malnutrition, severe: Code(s): E43 - Unspecified severe protein-calorie malnutrition Status: Acute Assessment and Plan: Dietary/Java Developer Analyst consult. Subjective Date/time seen: 08/05/20 13:04 patient is a 54-year-old female with a history of alcohol abuse, COPD with chronic respiratory failure on home oxygen apparently she had a problem with her oxygen tubing and was unable to reconnect to oxygen supply at home, patient was quite anxious and confused, brought to the emergency department for further evaluation, patient is a very poor historian and does not provide details of her alcohol intake, patient was placed on CIWA protocol, on Librium and Ativan as needed, today patient is clinically stable however pressure is running soft, patient denies any complaints of chest pain, shortness of breath, palpitation or dizziness, patient is being hydrated, patient is also on thiamine and folic acid, will continue to monitor will have a PT OT evaluate the patient if remains stable may discharge home tomorrow. Review of Systems Review of Systems: All systems reviewed & are unremarkable except as noted in HPI and below Exam Narrative: Exam Narrative: patient is underweight, patient stated this is normal for her Patient is comfortable, NAD HEENT: eyes are clear and none icteric LUNGS:CTA HEART: RR S1S2 ABD: BS+, Soft and nontender Lower extremities: no edema SKIN: nonjaundiced Neuro: grossly intact. Objective Data Vital Signs Vital Signs: Vital Signs - 24 hr 08/04/20 14:00 08/04/20 14:11 08/04/20 14:19 Temperature 98.5 F Pulse Rate 101 H 110 H 105 H R
[2020-08-06] VITALS (12 sets, daily range): BP systolic 79–86; BP diastolic 40–50; PULSE 66–97; RESP 16–20; TEMP 36.3–36.6; O2SAT 94–100
[2020-08-06] MEDS: ALBUTEROL SULFATE NEB 2.5 MG/0.5 ML INH 5 MG INHALATION ×2 (01:52→08:02)
[2020-08-06] MEDS: IPRATROPIUM BR 0.02% INH SOLN 0.5 MG/2.5 ML VIAL INHALATION ×2 (01:53→08:02)
[2020-08-06] MEDS: SODIUM CHLORIDE 0.9% IV 1,000 ML 125 ML IV CONT (04:00)
[2020-08-06 05:58] LABS: Hemoglobin 9.7 g/dL (12.0-15.0); Mean Corpuscular HGB Conc 31.3 g/dl (32-36); Mean Corpuscular Hemoglobin 30.2 pg (26-34); Mean Corpuscular Volume 96.6 fl (80-100); Mean Platelet Volume 8.9 fl (7.4-10.4); Platelet Count Result 435 k/mm3 (150-375); Red Blood Count 3.21 M/mm3 (4.2-5.4); Red Cell Distribution Width 11.9 % (11.5-14.5); White Blood Count 6.4 K/mm3 (4.5-10.0)
[2020-08-06 06:15] LABS: Alanine Aminotransferase 6 U/L (4-35); Albumin Level 2.6 g/dL (3.5-5.1); Alkaline Phosphatase 59 U/L (38-126); Anion Gap -3 mmol/L (8-16); Aspartate Amino Transferase 15 U/L (14-36); Bilirubin,Total < 0.1 mg/dL (0.2-1.3); Blood Urea Nitrogen 3 mg/dL (7-17); Calcium 8.1 mg/dL (8.4-10.2); Carbon Dioxide 38 mmol/L (22-30); Chloride 106 mmol/L (98-107); Estimated CRCL calculation 62 ml/min; Estimated Glomerular Filt Rate > 60; Glucose 91 mg/dL (65-105); Magnesium 1.8 mg/dL (1.6-2.3); Potassium 3.6 mmol/L (3.4-5.0); Sodium 141 mmol/L (137-145)
[2020-08-06] MEDS: POTASSIUM CHLORIDE 20 MEQ TABLET 40 MEQ PO (08:58)
[2020-08-06] MEDS: FOLIC ACID 1 MG TABLET PO (08:58)
[2020-08-06] MEDS: THIAMINE HCL 100 MG TABLET PO (08:58)
[2020-08-06] MEDS: NICOTINE (*PBKC) 7 MG PATCH 1 PATCH TRANSDERM (08:59)
--- NOTE | 2020-08-06 10:52 | PM.DS ---
DS: Admitting Diagnosis Admitting Diagnosis Admitting Diagnosis: disorientation,copd DS: Discharge Diagnosis Discharge Diagnosis (1) Alcoholic delirium: Code(s): F10.231 - Alcohol dependence with withdrawal delirium Status: Acute Assessment and Plan: 1:1 Sitter in the room Librium Ativan CIWA protocol 08/05/20 13:04 patient is a 54-year-old female with a history of alcohol abuse, COPD with chronic respiratory failure on home oxygen apparently she had a problem with her oxygen tubing and was unable to reconnect to oxygen supply at home, patient was quite anxious and confused, brought to the emergency department for further evaluation, patient is a very poor historian and does not provide details of her alcohol intake, patient was placed on CIWA protocol, on Librium and Ativan as needed, today patient is clinically stable however pressure is running soft, patient denies any complaints of chest pain, shortness of breath, palpitation or dizziness, patient is being hydrated, patient is also on thiamine and folic acid, will continue to monitor will have a PT OT evaluate the patient if remains stable may discharge home tomorrow. (2) Anxiety: Code(s): F41.9 - Anxiety disorder, unspecified Status: Acute Assessment and Plan: Ativan prn. (3) Disorientation: Code(s): R41.0 - Disorientation, unspecified Status: Acute Assessment and Plan: Supportive care. (4) Alcohol abuse: Code(s): F10.10 - Alcohol abuse, uncomplicated Status: Acute Assessment and Plan: Supportive care GGT pending Magnesium pending. (5) COPD with emphysema: Code(s): J43.9 - Emphysema, unspecified Status: Acute Assessment and Plan: Continue home meds Continue to monitor (6) Chronic respiratory failure with hypoxia and hypercapnia: Code(s): J96.11 - Chronic respiratory failure with hypoxia; J96.12 - Chronic respiratory failure with hypercapnia Status: Acute Assessment and Plan: On supplemental O2. (7) Alcohol abuse, daily use: Code(s): F10.10 - Alcohol abuse, uncomplicated Status: Chronic Assessment and Plan: 12 step program referral in the outpatient setting. (8) Macrocytic anemia: Code(s): D53.9 - Nutritional anemia, unspecified Status: Acute Assessment and Plan: Current MCV is WNL Continue to monitor (9) Protein-calorie malnutrition, severe: Code(s): E43 - Unspecified severe protein-calorie malnutrition Status: Acute Assessment and Plan: Dietary/Subgrade Tester consult. DS: Summary Hospital Course Reason for hospitalization: Chief complaint: disorientation,copd Narrative: Esther Brink is a 54 year old female Has a history of COPD. She is chronically on oxygen at 2-3 L. She also has a history of alcoholism. The EMS was called to her house because of confusion. However the patient had her oxygen disconnected and they showed her how to reconnect her oxygen. When the ambulance was still in a driveway should call 911 again and had disconnected her tubing again. The patient became very anxious and nervous and worried about her oxygen. Patient brought her in to [facility] 4 L per nasal cannula. The patient had been reporting shortness of breath when EMS came the 1st time. However the patient had been off her oxygen. The patient was just discharged from here on 07/10/2020 she went to [facility] For brief period time. The patient lives home alone. according to her discharge note the patient had been on a trilogy at home and had remained on a BiPAP while she was here. The patient was not able to get a trilogy at the senior living. The patient has some disorientation while she was here. Patient was placed on the CIWA protocol and is felt that she may have been going through withdrawals at that time. Today the ER providers stated she was going to try to send the patient back home ho
== END 2020-08-06 13:00 ==
LOC: ANHED 05:33 → ANH2MED 06:30
PROVIDERS: Internal Medicine; Admitting Provider Family Medicine; Emergency Provider Emergency Medicine; PCP Family Medicine; Visit Provider Family Medicine
DX: F10.231 Alcohol dependence with withdrawal delirium (principal); J43.9 Emphysema, unspecified; J96.11 Chronic respiratory failure with hypoxia; J96.22 Acute and chronic respiratory failure with hypercapnia; Z99.81 Dependence on supplemental oxygen; F41.9 Anxiety disorder, unspecified; E43 Unspecified severe protein-calorie malnutrition; D51.9 Vitamin B12 deficiency anemia, unspecified; K21.9 Gastro-esophageal reflux disease without esophagitis; E55.9 Vitamin D deficiency, unspecified; F17.210 Nicotine dependence, cigarettes, uncomplicated; R91.8 Other nonspecific abnormal finding of lung field; R45.1 Restlessness and agitation; R41.0 Disorientation, unspecified; R94.31 Abnormal electrocardiogram [ECG] [EKG]; S22.001A Stable burst fracture of unspecified thoracic vertebra, initial encounter for closed fracture; Z79.899 Other long term (current) drug therapy
CPT/HCPCS: 36415; 36600; 70450; 71046; 80048; 80053; 80307; 81001; 82140; 82375; 82805; 82977; 83050; 83735; 85025; 85027; 93005; 94640; 96361; 96374; 96375; 97161; 97165; 99285; A9270; G0378; J2060; J2930; J3411; J7030; J7040

== ENCOUNTER 2020-11-22 00:56 | Inpatient (IN) | payer MEDICARE, MEDICAID, SELFPAY ==
[2020-11-22] VITALS (53 sets, daily range): BP systolic 100–135; BP diastolic 65–84; PULSE 91–130; RESP 13–35; TEMP 36.6–37.2; O2SAT 35–100; BMI 13.1
--- NOTE | ~2020-11-22 | XR_ITS ---
XR chest 1V portable DATE: 11/22/2020 01:48 INDICATION: Shortness of breath TECHNIQUE: Portable AP chest on November 22, 2020 at 0147 hours COMPARISON: 08/04/2020 PA and lateral chest FINDINGS: Patchy scattered bilateral pulmonary infiltrates. Bilateral hyperinflation consistent with COPD. Postoperative changes of both lungs. Heart size appears normal. No pleural effusion. No pneumothorax. Diffuse osteopenia. IMPRESSION: Patchy bilateral pulmonary infiltrates COPD Bilateral lung resections Diffuse osteopenia Reviewed, dictated and finalized at location A. PART REDUCER
--- NOTE | ~2020-11-22 | XR_ITS ---
XR chest 1V portable DATE: 11/23/2020 05:33 INDICATION: COPD exacerbation; shortness of breath. TECHNIQUE: Portable upright AP view on November 23, 2020 at 0459 hours COMPARISON: July 22, 2021 portable AP chest at 0147 hours 08/04/2020 PA and lateral chest FINDINGS: Emphysematous changes are noted. Bilateral pulmonary resections. There is interval improvement of scattered bilateral pulmonary infiltrates since November 22, 2020. No pleural effusion or pulmonary vascular congestion or pneumothorax. Diffuse osteopenia. IMPRESSION: COPD Status post bilateral pulmonary resections Mild improvement of infiltrates since 2020 Reviewed, dictated and finalized at location A. ERADICATOR
--- NOTE | 2020-11-22 01:05 | ECG_ITS ---
Measurements Intervals [place] Rate: 120 P: 86 MD: 169 QRS: 57 QRSD: 95 T: 76 QT: 303 QTc: 429 Interpretive Statements SINUS TACHYCARDIA MINIMAL Q WAVES- INFERIOR LEADS ANTEROLATERAL INFARCT, AGE INDETERMINATE BASELINE ARTIFACT- I, III, AVR, AVL, AVF, V1-V6 ABNORMAL ECG Electronically Signed On 11-22-2020 7:18:46 EXPERT WITNESS by Quinton Bell D.O.
--- NOTE | 2020-11-22 01:07 | ED.SOB ---
HPI - SOB/Dyspnea General Chief Complaint: Shortness of Breath/Dyspnea Stated Complaint: anxiety Time Seen by Provider: 11/22/20 01:02 Source: patient Mode of arrival: ambulatory Limitations: no limitations History of Present Illness HPI Narrative: Patient is a 55-year-old female complaining of shortness of breath accompanied by cough, nonproductive that started today. Patient states she has a history of COPD and on continues oxygen at home at 2 L. Patient denies any chest pain, abdominal pain, nausea, vomiting, diaphoresis, fever or chills. Related Data Home Medications Medication Instructions Recorded Confirmed montelukast 10 mg PO DAILY 10/19/19 08/04/20 omeprazole 20 mg PO DAILY 10/19/19 08/04/20 escitalopram oxalate 10 mg PO DAILY 11/15/19 08/04/20 folic acid 1 mg PO DAILY 03/07/20 08/04/20 mirtazapine 15 mg PO HS 03/07/20 08/04/20 thiamine HCl (vitamin B1) 100 mg PO DAILY 03/07/20 08/04/20 ergocalciferol (vitamin D2) 50,000 unit PO WEEKLY 03/08/20 08/04/20 fluticasone propionate [Flonase 2 spray INTRANASAL DAILY 03/08/20 08/04/20 Allergy Relief] Allergies Allergy/AdvReac Type Severity Reaction Status Date / Time clindamycin Allergy Severe anaphylactic Verified 08/04/20 01:07 reaction, rash clarithromycin [From Biaxin] Allergy Hives Verified 08/04/20 01:07 Review of Systems Review of Systems: All systems reviewed & are unremarkable except as noted in HPI and below Constitutional: Constitutional: Denies body ache(s), Denies chills, Denies excessive sweating, Denies fatigue, Denies fever(s), Denies headache(s), Denies lethargy, Denies malaise, Denies weakness and Denies weight loss Eyes: Eyes: Denies blurry vision, Denies change in vision and Denies loss of vision ENT: Denies dizziness, Denies ear discharge, Denies headache(s), Denies lip swelling, Denies epistaxis, Denies nasal congestion, Denies neck pain, Denies throat swelling and Denies tongue swelling Cardiovascular: Cardiovascular: Denies chest pain, Denies chest pain at rest, Denies chest pain with activity, Denies diaphoresis, Denies rapid heart rate, Denies edema, Denies irregular heart rhythm, Denies lightheadedness, Denies palpitations, Denies dyspnea and Denies dyspnea on exertion Respiratory: Respiratory: Denies chest congestion and Denies hemoptysis Gastrointestinal: Gastrointestinal: Denies abdominal pain, Denies melena, Denies hematochezia, Denies diarrhea, Denies nausea, Denies vomiting and Denies hematemesis Musculoskeletal: Musculoskeletal: Denies abnormal gait, Denies deformity, Denies joint swelling, Denies limited range of motion, Denies neck pain and Denies numbness Neurologic: Denies Abnormal speech present, Denies abnormal gait, Denies confusion, Denies dizziness, Denies headache(s), Denies focal weakness, Denies loss of vision, Denies numbness, Denies Other visual disturbances, Denies Sensory deficit (Neuro) and Denies weakness Psychiatric: Psychiatric: Denies confusion, Denies depression, Denies auditory hallucinations, Denies homicidal ideation and Denies suicidal ideation Endocrine: Endocrine: Denies cold intolerance, Denies excessive sweating, Denies fatigue, Denies heat intolerance and Denies palpitations Hematologic/Lymphatic: Hematologic/Lymphatic: Denies easy bleeding and Denies easy bruising Allergic/Immunologic: Allergic/Immunologic: Denies lip swelling, Denies throat swelling and Denies tongue swelling PMFSH Past Medical History Medical History Abnormal EKG EKG has previously shown ST elevation which appears to be early repolarization. Alcohol abuse Anorexia Anxiety Asthma B12 deficiency anemia Chronic anemia Chronic respiratory failure with hypoxia and hypercapnia COPD with emphysema Gastroesophageal reflux disease Generalized anxiety disorder with panic attacks Spontaneous pneumothorax (~08/2012) Several pneumothoraces status post VATS procedure and apic
[2020-11-22] MEDS: ALBUTEROL SULFATE NEB 2.5 MG/0.5 ML INH 5 MG INHALATION ×4 (01:23→20:05)
[2020-11-22] MEDS: IPRATROPIUM BR 0.02% INH SOLN 0.5 MG/2.5 ML VIAL INHALATION ×4 (01:23→20:05)
[2020-11-22] MEDS: methylPREDNISolone SOD SUCC 125 MG VIAL IV PUSH (01:29)
[2020-11-22 01:31] LABS: Basophils Absolute Auto 0.1 K/mm3 (0.0-0.1); Basophils Percent Auto 0.6 % (0.2-1.2); Eosinophils Absolute Auto 0.2 K/mm3 (0-0.3); Eosinophils Percent Auto 1.6 % (0-4.4); Hematocrit 36.5 % (37.0-47.0); Hemoglobin 11.4 g/dL (12.0-15.0); Immature Granulocyte Absolute 0.03 K/mm3 (0.00-0.031); Immature Granulocyte Percent A 0.2 % (0-0.5); Lymphocytes Absolute Auto 1.28 K/mm3 (0.9-3.2); Lymphocytes Percent Auto 9.3 % (18.3-44.2); Mean Corpuscular HGB Conc 31.2 g/dl (32-36); Mean Corpuscular Volume 92.9 fl (80-100); Mean Platelet Volume 8.4 fl (7.4-10.4); Monocytes Percent Auto 7.1 % (2.6-8.5); Neutrophils Absolute Auto 11.2 K/mm3 (1.3-6.7); Neutrophils Percent Auto 81.2 % (45.5-73.1); Platelet Count Result 343 k/mm3 (150-375); Red Blood Count 3.93 M/mm3 (4.2-5.4); Red Cell Distribution Width 13.1 % (11.5-14.5); White Blood Count 13.8 K/mm3 (4.5-10.0)
[2020-11-22 01:39] LABS: Alveolar/Arterial O2 Gradient 84.8 mmHg; Base Excess ABG 13.1 mEq/l (+/-2.0); Fractional Inspired Oxygen 32 %; HCO3 ABG 41.2 mEq/l (22.0-26.0); Oxygen Content ABG 15.8 %vol (16.0-22.0); Oxygen Saturation ABG 89.6 % (95.0-100.0); Oxyhemoglobin 89.7 % THb (90.0-100.0); PO2 ABG 60.3 mmHg (80.0-100.0); PO2 FiO2 Ratio Arterial Blood 1.88 %; Total Hemoglobin 12.5 g/dL (12.0-18.0); pH ABG 7.381 (7.350-7.450)
[2020-11-22 01:40] LABS: Device NASAL CANNULA; Modified Allen's Test Pass; Site Drawn RIGHT RADIAL
[2020-11-22 01:54] LABS: Alanine Aminotransferase 6 U/L (4-35); Albumin Level 3.8 g/dL (3.5-5.1); Alkaline Phosphatase 76 U/L (38-126); Aspartate Amino Transferase 23 U/L (14-36); Bilirubin,Total 0.4 mg/dL (0.2-1.3); Blood Urea Nitrogen 7 mg/dL (7-17); Calcium 8.5 mg/dL (8.4-10.2); Carbon Dioxide > 40 mmol/L (22-30); Chloride 88 mmol/L (98-107); Estimated Glomerular Filt Rate > 60; Glucose 109 mg/dL (65-105); Potassium 3.9 mmol/L (3.4-5.0); Sodium 134 mmol/L (137-145)
[2020-11-22 01:55] LABS: INR 0.8; Prothrombin Time 11.9 Seconds (11.1-14.7)
[2020-11-22 01:57] LABS: Partial Thromboplastin Time 28.7 SECONDS (22.3-36.8)
[2020-11-22 01:58] LABS: NT Pro B Type Natriuretic Pept 54 PG/ML (5-100); Troponin I < 0.012 ng/mL (0.000-0.034)
--- NOTE | 2020-11-22 03:01 | PC.NURSE ---
Patient disconnected BiPAP on accident after trying to sit on side of bed. Patient informed she needs to remain still and keep head of bed elevated. EDP Julio César notified.
[2020-11-22] MEDS: LORazepam INJ (*CRX) 2 MG/ML VIAL 0.5 MG IV PUSH (03:07)
--- NOTE | 2020-11-22 05:05 | ADMGEN ---
This patient, Esther Brink, was admitted to Intensive Care Unit-4. Patient/family oriented to hospital policies and general routines including ID bracelet, bed and alarms, visiting hours, pain management, procedures, bathroom and other care routines, personal items, smoking policy, room service/diet, and visiting hours. Information on how to activate the Rapid Response Team has been discussed. Patient/Family are encouraged to report perceived risks to care and to ask questions if they do not understand what they are told or what they should do.
[2020-11-22] MEDS: LORazepam INJ (*CRX) 2 MG/ML VIAL 1 MG IV PUSH (05:25)
[2020-11-22] MEDS: LACTATED RINGERS 1,000 ML 100 ML IV CONT (05:46)
[2020-11-22] MEDS: OLANZapine 10 MG INJ VIAL IM (05:47)
[2020-11-22] MEDS: dexmedeTOMIDine 400 MCG/100 ML 400 MCG/100 ML BAG IV CONT ×2 (07:01→19:43)
[2020-11-22] MEDS: WATER, STERILE FOR INJECTION 10 ML VIAL XX (07:01)
--- NOTE | 2020-11-22 11:35 | WPDCNINT ---
Assessment and Plan Assessment and plan (1) Acute hypercapnic respiratory failure: Code(s): J96.02 - Acute respiratory failure with hypercapnia Status: Acute Assessment and Plan: Could be related to COPD exacerbation, pneumonia, COVID-19 -continue BiPAP as tolerated - Will repeat ABG -chest x-ray showed patchy bilateral pulmonary infiltrates -continue ceftriaxone and azithromycin (2) COPD exacerbation: Code(s): J44.1 - Chronic obstructive pulmonary disease with (acute) exacerbation Status: Acute Assessment and Plan: COPD exacerbation with hypercapnia. Continue BiPAP, antibiotics, will add steroids (3) Suspected 2019 novel coronavirus infection: Code(s): Z20.828 - Contact with and (suspected) exposure to other viral communicable diseases Status: Ruled-out Assessment and Plan: SARS-CoV-2 PCR has been obtained and pending -continue airborne, droplet, contact isolation/precautions (4) Anxiety: Code(s): F41.9 - Anxiety disorder, unspecified Status: Acute Assessment and Plan: Patient has a significant history of anxiety with panic disorders, currently on Precedex infusion (5) DVT prophylaxis: Code(s): Z29.9 - Encounter for prophylactic measures, unspecified Status: Acute Assessment and Plan: Will start subcu Lovenox (6) Alcohol abuse, daily use: Code(s): F10.10 - Alcohol abuse, uncomplicated Status: Chronic Assessment and Plan: According to the son patient has not had an alcohol beverage since July 2020. This information was given by her son to the pediatric critical care nurse (7) Tobacco abuse: Code(s): Z72.0 - Tobacco use Status: Chronic Assessment and Plan: Patient does not smoke anymore as she gets very short of breath and uses oxygen at home. This information was given by her son to the pediatric critical care nurse Additional Plan Discussed with patient updated with her condition plan of care. Code status: Full code Critical care time spent: 43 minutes Due to a high probability of clinically significant, life threatening deterioration, the patient required my highest level of preparedness to intervene emergently and I personally spent this critical care time directly and personally managing the patient. This critical care time included obtaining a history; examining the patient; pulse oximetry; ordering and review of studies; arranging urgent treatment with development of a management plan; evaluation of patient's response to treatment; frequent reassessment; and discussions with other providers. It was exclusive of separately billable procedures and treating other patients and teaching time. Please see Assessment and Plan section and the rest of the note for further information on patient assessment and treatment Bilingual Manager Consult Note Consult date: 11/22/20 Time Seen: 07:14 Reason for consult: COPD exacerbation, suspects COVID-19, HPI: Esther Brink is a 55 year old female with significant past medical history of severe COPD on 3-4 L nasal cannula home, generalized anxiety disorder with panic attacks, GERD, , chronic tobacco use, history of left upper lobectomy and VATS due to spontaneous pneumothorax, chronic anemia presented the ED early this morning on 11/22/2020 with complaint of increasing shortness of breath, cough which is nonproductive that started early this morning. Patient has a history of COPD and is on continuous oxygen at 3-4 L via nasal cannula at home. She denies any chest pain, nausea vomiting, diaphoresis. Patient denies any loss of taste or smell. ABGs in the ER showed a pCO2 level of 71, patient was placed on BiPAP and transferred to the ICU for close monitoring and further management. Patient was started on ceftriaxone. Chest x-ray showed patchy BiPAP lateral pulmonary infiltrates, emphysema. Patient seen and examined the ICU remains on BiPAP on 09/23, 35% FiO2 with good O2 sats. Tidal v
[2020-11-22 12:25] LABS: Alveolar/Arterial O2 Gradient 85.7 mmHg; Base Excess ABG 9.6 mEq/l (+/-2.0); Fractional Inspired Oxygen 35 %; HCO3 ABG 37.3 mEq/l (22.0-26.0); Oxygen Content ABG 16.1 %vol (16.0-22.0); Oxygen Saturation ABG 95.7 % (95.0-100.0); Oxyhemoglobin 94.8 % THb (90.0-100.0); PO2 ABG 85.3 mmHg (80.0-100.0); PO2 FiO2 Ratio Arterial Blood 2.44 %
[2020-11-22 12:27] LABS: Device NON-INVASIVE VENT; Modified Allen's Test Pass; Non-Invasive Expiratory Pressure 5 CMH2O; Non-Invasive Inspiratory Pressure 10 CMH2O; Non-Invasive Vent Rate 4 /MIN; PCO2 ABG 67.6 mmHg (35.0-45.0); Site Drawn RIGHT RADIAL
[2020-11-22] MEDS: ENOXAPARIN 40 MG/0.4 ML SYRINGE SUB-Q (12:42)
[2020-11-22] MEDS: FOLIC ACID 1 MG/0.2 ML INJ IV PUSH (12:42)
[2020-11-22] MEDS: THIAMINE HCL 200 MG/2 ML VIAL 100 MG IV PUSH (12:42)
--- NOTE | 2020-11-22 12:56 | PM.IMHP ---
H&P: HPI History of Present Illness Date/Time: 11/22/20 12:56 Chief Complaint: Shortness of breath Narrative: Esther Brink is a 55 year old female with history of severe COPD chronic respiratory failure on home oxygen secondary to hypercapnia respiratory failure, patient had been smoking until July 2020, patient was brought to the emergency department by family as patient was progressively short of breath on home oxygen, currently patient is on BiPAP unable to provide detailed review of symptoms or history, most of the history is recorded from the electronic chart, upon arrival to emergency depart ABG showed CO2 level of 71 suggesting patient has a persistent hypercapnic respiratory failure patient was placed on BiPAP and transferred to ICU, patient is being investigated for COVID-19 currently isolation will continue to monitor, patient being treated with Solu-Medrol and updraft for her COPD exacerbation, chest x-ray shows bilateral patchy infiltrate patient is being treated with Rocephin azithromycin, patient is seen by open cut examiner and appreciate Review of Systems Review of Systems: ROS unobtainable: Yes unobtainable due to medical condition PMFSH Past Medical History Medical History Abnormal EKG EKG has previously shown ST elevation which appears to be early repolarization. Alcohol abuse Anorexia Anxiety Asthma B12 deficiency anemia Chronic anemia Chronic respiratory failure with hypoxia and hypercapnia COPD with emphysema Gastroesophageal reflux disease Generalized anxiety disorder with panic attacks Spontaneous pneumothorax (~08/2012) Several pneumothoraces status post VATS procedure and apical blebectomy as well as pleurodesis. Tobacco abuse Vitamin D deficiency Surgical History Surgical History History of bilateral tubal ligation History of History of hip surgery (~07/2019) ORIF of right hip fracture. History of tonsillectomy Status post thoracotomy Left-sided VATS procedure and apical bleb resection with pleurodesis. Family History Family History Father Acute myocardial infarction Father No problems noted. Unknown No problems noted. Mother No problems noted. Sibling No problems noted. Social History Social History Social History: The patient lives with her 17-year-old son in [place]. She has 2 other sons who are grown out of the home. 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 She smoked as many as 2 packs of cigarettes per day and tells me she now smokes maybe a half a pack a day. She is not forthcoming with the amount of alcohol she uses, but tells me she drinks several times a week, maybe 3 or 4 beers at a time, maybe heavier on the weekends. She denies illicit substance use. Her brother Manish Gardner is her surrogate decision maker and she wishes to be a full code. Smoking packs per day: 2 Smoking cigarettes per day: 40.0 Years smoked: 35 Smoking pack-years: 70.00 Smoking status: Former smoker Tobacco type: cigarettes Second hand tobacco smoke exposure: No Additional smoking assessment comments: Patient states she no longer smokes but can't say when she quit Alcohol intake: current Drinks per week: 8 Substance use: never Substance use type: does not use Last use: 08/03/2020 Additional living arrangements comments: Lives with her 17-year-old son. Gender identity (if verbalized by the patient): Female Spiritual care concerns: No Agree to blood products: Yes Meds Home Medications and Allergies Home Medications Medication Instructions Recorded Confirmed Type montelukast 10 mg PO DAILY 10/19/19 11/22/20 History omeprazole 20 mg PO DAILY 10/19/19 11/22/20 History
[2020-11-22 17:37] LABS: SARS-CoV-2 RNA PCR Negative
[2020-11-22] MEDS: LACTATED RINGERS 1,000 ML 75 ML IV CONT (18:05)
[2020-11-22] MEDS: methylPREDNISolone SOD SUCC 40 MG VIAL IV PUSH (18:06)
[2020-11-22] MEDS: chlordiazePOXIDE (*CRX) 25 MG CAPSULE 50 MG PO (22:27)
[2020-11-23] VITALS (22 sets, daily range): BP systolic 95–124; BP diastolic 56–93; PULSE 79–112; RESP 14–27; TEMP 35.7–37.3; O2SAT 88–99; BMI 13.4
[2020-11-23] MEDS: methylPREDNISolone SOD SUCC 40 MG VIAL IV PUSH ×4 (01:04→17:53)
[2020-11-23] MEDS: ALBUTEROL SULFATE NEB 2.5 MG/0.5 ML INH 5 MG INHALATION ×4 (02:24→20:21)
[2020-11-23] MEDS: IPRATROPIUM BR 0.02% INH SOLN 0.5 MG/2.5 ML VIAL INHALATION ×4 (02:24→20:21)
[2020-11-23] MEDS: dexmedeTOMIDine 400 MCG/100 ML 400 MCG/100 ML BAG 12.23 MCG IV CONT (02:33)
[2020-11-23 04:01] LABS: Alveolar/Arterial O2 Gradient 99.4 mmHg; Carboxyhemoglobin 0.3 % THb (0-2.0); Fractional Inspired Oxygen 32 %; HCO3 ABG 32.5 mEq/l (22.0-26.0); Methemoglobin ABG 0.4 %THb (0-1.5); Oxygen Content ABG 15.2 %vol (16.0-22.0); Oxyhemoglobin 86.4 % THb (90.0-100.0); PO2 ABG 56.6 mmHg (80.0-100.0); PO2 FiO2 Ratio Arterial Blood 1.77 %; Reduced Hemoglobin 12.9 %THb (0-5.0); Total Hemoglobin 12.5 g/dL (12.0-18.0); pH ABG 7.339 (7.350-7.450)
[2020-11-23 04:02] LABS: PCO2 ABG 61.7 mmHg (35.0-45.0)
[2020-11-23 04:03] LABS: Device NASAL CANNULA; Modified Allen's Test Pass; Oxygen Saturation ABG 86.9 % (95.0-100.0); Site Drawn RIGHT RADIAL
[2020-11-23 04:25] LABS: Basophils Percent Auto 0.3 % (0.2-1.2); Hematocrit 36.4 % (37.0-47.0); Hemoglobin 11.3 g/dL (12.0-15.0); Immature Granulocyte Absolute 0.03 K/mm3 (0.00-0.031); Immature Granulocyte Percent A 0.5 % (0-0.5); Lymphocytes Absolute Auto 0.41 K/mm3 (0.9-3.2); Mean Corpuscular Hemoglobin 29.1 pg (26-34); Mean Corpuscular Volume 93.8 fl (80-100); Mean Platelet Volume 8.6 fl (7.4-10.4); Monocytes Absolute Auto 0.1 K/mm3 (0.1-0.6); Monocytes Percent Auto 1.7 % (2.6-8.5); Neutrophils Absolute Auto 5.3 K/mm3 (1.3-6.7); Neutrophils Percent Auto 90.5 % (45.5-73.1); Platelet Count Result 294 k/mm3 (150-375); Red Blood Count 3.88 M/mm3 (4.2-5.4); Red Cell Distribution Width 13.1 % (11.5-14.5); White Blood Count 5.8 K/mm3 (4.5-10.0)
[2020-11-23 04:39] LABS: Alanine Aminotransferase 7 U/L (4-35); Albumin Level 3.5 g/dL (3.5-5.1); Alkaline Phosphatase 76 U/L (38-126); Anion Gap 0 mmol/L (8-16); Aspartate Amino Transferase 23 U/L (14-36); Bilirubin,Total 0.4 mg/dL (0.2-1.3); Blood Urea Nitrogen 10 mg/dL (7-17); Calcium 8.5 mg/dL (8.4-10.2); Carbon Dioxide 38 mmol/L (22-30); Chloride 99 mmol/L (98-107); Estimated CRCL calculation 84 ml/min; Estimated Glomerular Filt Rate > 60; Glucose 144 mg/dL (65-105); Magnesium 1.7 mg/dL (1.6-2.3); Phosphorus 3.9 mg/dL (2.5-4.5); Sodium 137 mmol/L (137-145)
[2020-11-23] MEDS: chlordiazePOXIDE (*CRX) 25 MG CAPSULE 50 MG PO (05:04)
[2020-11-23] MEDS: LACTATED RINGERS 1,000 ML 75 ML IV CONT (05:05)
[2020-11-23] MEDS: THIAMINE HCL 200 MG/2 ML VIAL 100 MG IV PUSH (07:56)
[2020-11-23] MEDS: FOLIC ACID 1 MG/0.2 ML INJ IV PUSH (07:56)
[2020-11-23] MEDS: ENOXAPARIN 40 MG/0.4 ML SYRINGE SUB-Q (07:57)
[2020-11-23] MEDS: MAGNESIUM SULF 2 GM/WATER 50ML 2 GM/50 ML BAG IVPB (08:22)
[2020-11-23] MEDS: chlordiazePOXIDE (*CRX) 25 MG CAPSULE PO ×2 (08:24→21:00)
--- NOTE | 2020-11-23 10:26 | WPDINTPN ---
Progress Note: A&P Assessment and Plan (1) Acute hypercapnic respiratory failure: Code(s): J96.02 - Acute respiratory failure with hypercapnia Status: Acute Assessment and Plan: Could be related to COPD exacerbation, pneumonia Improved and patient has been on BiPAP since yesterday Saturating well on nasal cannula with no respiratory distress Chest x-ray this morning done and was reviewed -continue ceftriaxone and azithromycin (2) COPD exacerbation: Code(s): J44.1 - Chronic obstructive pulmonary disease with (acute) exacerbation Status: Acute Assessment and Plan: COPD exacerbation with hypercapnia. Continue BiPAP p.r.n. and at night Continue antibiotics Continue steroids and bronchodilators (3) Suspected 2019 novel coronavirus infection: Code(s): Z20.828 - Contact with and (suspected) exposure to other viral communicable diseases Status: Ruled-out Assessment and Plan: SARS-CoV-2 PCR was negative (4) Anxiety: Code(s): F41.9 - Anxiety disorder, unspecified Status: Acute Assessment and Plan: Patient has a significant history of anxiety with panic disorders, currently on Precedex infusion and received Librium overnight Her agitation this morning appears more behavioral and her eagerness to leave the hospital I have discontinued Precedex and decrease Librium does (5) DVT prophylaxis: Code(s): Z29.9 - Encounter for prophylactic measures, unspecified Status: Acute Assessment and Plan: Continue subcu Lovenox (6) Alcohol abuse, daily use: Code(s): F10.10 - Alcohol abuse, uncomplicated Status: Chronic Assessment and Plan: Patient drinks 3 beers a day 4 times a week She was started on Librium overnight She does take Ativan at home (7) Tobacco abuse: Code(s): Z72.0 - Tobacco use Status: Chronic Assessment and Plan: Patient does not smoke anymore as she gets very short of breath and uses oxygen at home. This information was given by her son to the home health care social worker Additional Plan Patient has been admitted with the staff that she wants to leave and go home she feels that her breathing is all better. Patient has severe COPD and has frequent ER visits and admissions to the hospital. She appears to be alert oriented x3 and has insight into her disease. Told me that she wears oxygen with concentrator 2 L most of the time. Use inhaler twice a day and sometimes more depending on her symptoms. She states that she cannot waste her life sitting in the hospital on a bed and wants to do things and take care of her grandchildren. I explained that her breathing making it worse. Me that if her breathing gets worse she can always call ambulance back and come back to the hospital but at this time will not stay in the hospital. I told her that if she leaves, it will be against medical advice. Explained that if she leaves without proper treatment and without completing course of antibiotics her COPD exacerbation and possible pneumonia may get worse and she may develop sepsis, worsening of respiratory failure and may lead to a preventable . I also told her that she will need someone to come pick her up in any case. She told me that she will leave hospital at all costs and is going to call someone to come pick her up and give her a ride home. Unless patient leaves AMA I will eventually downgrade her to step-down unit later today Code status: Full code Subjective Date/time seen: 11/23/20 10:26 Overnight events reviewed. Afebrile Continues to be on Precedex infusion She was given Librium overnight due to anxiety and agitation This morning patient is agitated and she wants to go home. She states she is feeling better and her breathing is at her baseline and she has lots of stuff to take care of and would like to go home at this point. Vitals acceptable Patient denies fever, chest pain, shortness of breath, cough, n
--- NOTE | 2020-11-23 11:52 | PCNSR ---
On 11/23/20, the student, Isabel Harden, provided care and completed [facility] documentation on this patient. I have reviewed the student's documentation and agree with the findings.
--- NOTE | 2020-11-23 15:06 | PM.IMPN ---
Progress Note: A&P Assessment and Plan (1) Acute hypercapnic respiratory failure: Code(s): J96.02 - Acute respiratory failure with hypercapnia Status: Acute Assessment and Plan: 11/23/20 15:06 Esther Brink is a 55 year old female with history of severe COPD chronic respiratory failure on home oxygen secondary to hypercapnia respiratory failure, patient had been smoking until July 2020, patient was brought to the emergency department by family as patient was progressively short of breath on home oxygen, currently patient is on BiPAP unable to provide detailed review of symptoms or history, most of the history is recorded from the electronic chart, upon arrival to emergency depart ABG showed CO2 level of 71 suggesting patient has a persistent hypercapnic respiratory failure patient was placed on BiPAP and transferred to ICU, patient is being investigated for COVID-19 currently isolation will continue to monitor, patient being treated with Solu-Medrol and updraft for her COPD exacerbation, chest x-ray shows bilateral patchy infiltrate patient is being treated with Rocephin azithromycin, patient is seen by dormitory maid and appreciate 11/23 patient COVID test is negative and off isolation, patient with history of severe COPD with exacerbation, treated with Solu-Medrol updraft, patient was placed on Rocephin azithromycin for possible pneumonia however chest x-ray shows persistent COPD will stop the Rocephin and continue azithromycin to cover for atypicals pneumonia, will taper Solu-Medrol as patient's symptoms improve. currently patient is sitting in the is feeling much better not a short of breath as when she arrived denies any fever or chills patient is on 2 L nasal cannula and saturating 97%, patient history of alcohol abuse being treated with a Librium will continue to monitor as patient does have significant tremor, will work PT OT evaluate the patient and further recommendation to follow. (2) Acute exacerbation of chronic obstructive pulmonary disease (COPD): Code(s): J44.1 - Chronic obstructive pulmonary disease with (acute) exacerbation Status: Acute Assessment and Plan: Patient was started on Solu-Medrol and updraft emergency department as well as azithromycin, will continue to monitor the patient and taper Solu-Medrol as her symptoms improve. (3) Protein-calorie malnutrition, severe: Code(s): E43 - Unspecified severe protein-calorie malnutrition Status: Acute Assessment and Plan: Will have dietitian consult the patient (4) Anxiety: Code(s): F41.9 - Anxiety disorder, unspecified Status: Acute Assessment and Plan: Will continue home regimen and monitor (5) Atrial fibrillation: Qualifiers: Atrial fibrillation type: unspecified Qualified Code(s): I48.91 - Unspecified atrial fibrillation Code(s): I48.91 - Unspecified atrial fibrillation Status: Acute Assessment and Plan: EKG in emergency department showed sinus tachycardia with HR of 120, will continue to monitor Subjective Date/time seen: 11/23/20 15:06 Esther Brink is a 55 year old female with history of severe COPD chronic respiratory failure on home oxygen secondary to hypercapnia respiratory failure, patient had been smoking until July 2020, patient was brought to the emergency department by family as patient was progressively short of breath on home oxygen, currently patient is on BiPAP unable to provide detailed review of symptoms or history, most of the history is recorded from the electronic chart, upon arrival to emergency depart ABG showed CO2 level of 71 suggesting patient has a persistent hypercapnic respiratory failure patient was placed on BiPAP and transferred to ICU, patient is being investigated for COVID-19 currently isolation will continue to monitor, patient being treated with Solu-Medrol and updraft for her COPD exacerbation, chest x-ray shows bilateral patchy infiltr
--- NOTE | 2020-11-23 18:34 | PC.NURSE ---
Report called to RAHUL Cook @ 1820. Room currently being cleaned and will call when ready. 1834: Joyce called to state room is ready. Pt currently eating dinner and will transfer after she's done.
--- NOTE | 2020-11-23 18:55 | PC.NURSE ---
Patient transferred to [facility] at 1855 via wheelchair, nasal cannula with oxygen on. Belongings sent with patient. Report given to Mary KAY
--- NOTE | 2020-11-23 18:59 | PC.NURSE ---
Transfer patient received from ICU. Report received from RAHUL Victoria.
[2020-11-24] VITALS (8 sets, daily range): BP systolic 95–98; BP diastolic 56–57; PULSE 84–104; RESP 16–18; TEMP 36.8; O2SAT 96–100
[2020-11-24] MEDS: methylPREDNISolone SOD SUCC 40 MG VIAL IV PUSH ×2 (00:06→06:29)
[2020-11-24] MEDS: IPRATROPIUM BR 0.02% INH SOLN 0.5 MG/2.5 ML VIAL INHALATION ×2 (02:20→09:04)
[2020-11-24] MEDS: ALBUTEROL SULFATE NEB 2.5 MG/0.5 ML INH 5 MG INHALATION ×2 (02:20→09:04)
[2020-11-24] MEDS: THIAMINE HCL 200 MG/2 ML VIAL 100 MG IV PUSH (09:31)
[2020-11-24] MEDS: ENOXAPARIN 40 MG/0.4 ML SYRINGE SUB-Q (09:31)
[2020-11-24] MEDS: chlordiazePOXIDE (*CRX) 25 MG CAPSULE PO (09:33)
[2020-11-24] MEDS: LORazepam (*CRX) 0.5 MG TABLET PO (09:33)
[2020-11-24] MEDS: FOLIC ACID 1 MG/0.2 ML INJ IV PUSH (09:36)
--- NOTE | 2020-11-24 10:41 | PM.IMPN ---
Progress Note: A&P Assessment and Plan (1) Acute hypercapnic respiratory failure: Code(s): J96.02 - Acute respiratory failure with hypercapnia Status: Acute Assessment and Plan: 11/24/20 10:41 Esther Brink is a 55 year old female with history of severe COPD chronic respiratory failure on home oxygen secondary to hypercapnia respiratory failure, patient had been smoking until July 2020, patient was brought to the emergency department by family as patient was progressively short of breath on home oxygen, currently patient is on BiPAP unable to provide detailed review of symptoms or history, most of the history is recorded from the electronic chart, upon arrival to emergency depart ABG showed CO2 level of 71 suggesting patient has a persistent hypercapnic respiratory failure patient was placed on BiPAP and transferred to ICU, patient is being investigated for COVID-19 currently isolation will continue to monitor, patient being treated with Solu-Medrol and updraft for her COPD exacerbation, chest x-ray shows bilateral patchy infiltrate patient is being treated with Rocephin azithromycin, patient is seen by wiper blender and appreciate 11/23 patient COVID test is negative and off isolation, patient with history of severe COPD with exacerbation, treated with Solu-Medrol updraft, patient was placed on Rocephin azithromycin for possible pneumonia however chest x-ray shows persistent COPD will stop the Rocephin and continue azithromycin to cover for atypicals pneumonia, will taper Solu-Medrol as patient's symptoms improve. currently patient is sitting in the is feeling much better not a short of breath as when she arrived denies any fever or chills patient is on 2 L nasal cannula and saturating 97%, patient history of alcohol abuse being treated with a Librium will continue to monitor as patient does have significant tremor, will work PT OT evaluate the patient and further recommendation to follow. 11/24 today patient denies any cough or shortness of breath however appears more anxious and agitated, patient denies any recent alcohol consumption however patient is a poor historian and is on Librium, will add Ativan 0.5 mg every 6 hours as needed, will continue to monitor patient and remains clinically stable be discharged patient home tomorrow. (2) Acute exacerbation of chronic obstructive pulmonary disease (COPD): Code(s): J44.1 - Chronic obstructive pulmonary disease with (acute) exacerbation Status: Acute Assessment and Plan: Patient was started on Solu-Medrol and updraft emergency department as well as azithromycin, will continue to monitor the patient and taper Solu-Medrol as her symptoms improve. (3) Protein-calorie malnutrition, severe: Code(s): E43 - Unspecified severe protein-calorie malnutrition Status: Acute Assessment and Plan: Will have dietitian consult the patient (4) Anxiety: Code(s): F41.9 - Anxiety disorder, unspecified Status: Acute Assessment and Plan: Will continue home regimen and monitor (5) Atrial fibrillation: Qualifiers: Atrial fibrillation type: unspecified Qualified Code(s): I48.91 - Unspecified atrial fibrillation Code(s): I48.91 - Unspecified atrial fibrillation Status: Acute Assessment and Plan: EKG in emergency department showed sinus tachycardia with HR of 120, will continue to monitor Subjective Date/time seen: 11/24/20 10:41 Esther Brink is a 55 year old female with history of severe COPD chronic respiratory failure on home oxygen secondary to hypercapnia respiratory failure, patient had been smoking until July 2020, patient was brought to the emergency department by family as patient was progressively short of breath on home oxygen, currently patient is on BiPAP unable to provide detailed review of symptoms or history, most of the history is recorded from the electronic chart, upon arrival to emergency depart AB
--- NOTE | 2020-11-24 11:13 | PC.NURSE ---
Patient has been stating all day that she is leaving today. After attempts at education given on importance of remaining in the hospital I called Dr. Chan to let him know of the situation. Dr. Chan stated that he will put in a discharge for her as she is not cooperating and already has a family member downstairs waiting for her to go home.
--- NOTE | 2020-11-24 11:19 | PM.DS ---
DS: Admitting Diagnosis Admitting Diagnosis Admitting Diagnosis: Chief Complaint: Shortness of breath DS: Discharge Diagnosis Discharge Diagnosis (1) Acute hypercapnic respiratory failure: Code(s): J96.02 - Acute respiratory failure with hypercapnia Status: Acute Assessment and Plan: 11/24/20 10:41 Esther Brink is a 55 year old female with history of severe COPD chronic respiratory failure on home oxygen secondary to hypercapnia respiratory failure, patient had been smoking until July 2020, patient was brought to the emergency department by family as patient was progressively short of breath on home oxygen, currently patient is on BiPAP unable to provide detailed review of symptoms or history, most of the history is recorded from the electronic chart, upon arrival to emergency depart ABG showed CO2 level of 71 suggesting patient has a persistent hypercapnic respiratory failure patient was placed on BiPAP and transferred to ICU, patient is being investigated for COVID-19 currently isolation will continue to monitor, patient being treated with Solu-Medrol and updraft for her COPD exacerbation, chest x-ray shows bilateral patchy infiltrate patient is being treated with Rocephin azithromycin, patient is seen by store operations specialist and appreciate 11/23 patient COVID test is negative and off isolation, patient with history of severe COPD with exacerbation, treated with Solu-Medrol updraft, patient was placed on Rocephin azithromycin for possible pneumonia however chest x-ray shows persistent COPD will stop the Rocephin and continue azithromycin to cover for atypicals pneumonia, will taper Solu-Medrol as patient's symptoms improve. currently patient is sitting in the is feeling much better not a short of breath as when she arrived denies any fever or chills patient is on 2 L nasal cannula and saturating 97%, patient history of alcohol abuse being treated with a Librium will continue to monitor as patient does have significant tremor, will work PT OT evaluate the patient and further recommendation to follow. 11/24 today patient denies any cough or shortness of breath however appears more anxious and agitated, patient denies any recent alcohol consumption however patient is a poor historian and is on Librium, will add Ativan 0.5 mg every 6 hours as needed, will continue to monitor patient and remains clinically stable be discharged patient home tomorrow. (2) Acute exacerbation of chronic obstructive pulmonary disease (COPD): Code(s): J44.1 - Chronic obstructive pulmonary disease with (acute) exacerbation Status: Acute Assessment and Plan: Patient was started on Solu-Medrol and updraft emergency department as well as azithromycin, will continue to monitor the patient and taper Solu-Medrol as her symptoms improve. (3) Protein-calorie malnutrition, severe: Code(s): E43 - Unspecified severe protein-calorie malnutrition Status: Acute Assessment and Plan: Will have dietitian consult the patient (4) Anxiety: Code(s): F41.9 - Anxiety disorder, unspecified Status: Acute Assessment and Plan: Will continue home regimen and monitor (5) Atrial fibrillation: Qualifiers: Atrial fibrillation type: unspecified Qualified Code(s): I48.91 - Unspecified atrial fibrillation Code(s): I48.91 - Unspecified atrial fibrillation Status: Acute Assessment and Plan: EKG in emergency department showed sinus tachycardia with HR of 120, will continue to monitor DS: Summary Hospital Course Reason for hospitalization: Chief Complaint: Shortness of breath Narrative: Esther Brink is a 55 year old female with history of severe COPD chronic respiratory failure on home oxygen secondary to hypercapnia respiratory failure, patient had been smoking until July 2020, patient was brought to the emergency department by family as patient was progressively short of breath on home oxygen, currently p
== END 2020-11-24 11:40 | disposition home or self-care (01) | DRG 190 ==
LOC: ANHED 02:55 → ANHICU 09:48 → ANH3MED 11-24 11:19 → ANH3MEDSUR 11-27 09:37 → ANHICU 11-27 09:37
PROVIDERS: Internal Medicine; Admitting Provider Family Medicine; Emergency Provider Emergency Medicine; PCP Family Medicine; Visit Provider Family Medicine
DX: J44.1 Chronic obstructive pulmonary disease with (acute) exacerbation (principal); E43 Unspecified severe protein-calorie malnutrition; J96.22 Acute and chronic respiratory failure with hypercapnia; J96.21 Acute and chronic respiratory failure with hypoxia; J18.9 Pneumonia, unspecified organism; Z68.1 Body mass index [BMI] 19.9 or less, adult; J44.0 Chronic obstructive pulmonary disease with (acute) lower respiratory infection; Z20.822 Contact with and (suspected) exposure to COVID-19; K21.9 Gastro-esophageal reflux disease without esophagitis; E55.9 Vitamin D deficiency, unspecified; F41.1 Generalized anxiety disorder; F10.10 Alcohol abuse, uncomplicated; I48.91 Unspecified atrial fibrillation; Z99.81 Dependence on supplemental oxygen; Z87.891 Personal history of nicotine dependence
CPT/HCPCS: 36415; 36600; 71045; 80053; 82375; 82805; 83050; 83735; 83880; 84100; 84484; 85025; 85380; 85610; 85730; 87086; 93005; 94002; 94640; 96374; 96375; 97161; 97165; 99291; A9270; C9803; J0456; J0696; J1650; J1956; J2060; J2920; J2930; J3411; J3475; J7120; U0003; U0005

== ENCOUNTER 2021-01-13 14:06 | Emergency (ER) | payer MEDICARE, MEDICAID, SELFPAY ==
--- NOTE | ~2021-01-13 | XR_ITS ---
EXAMINATION: XR chest 2V EXAM DATE: 01/13/2021 14:34 INDICATION: Shortness of breath. TECHNIQUE: Frontal and lateral projections of the chest obtained and reviewed. Comparison is made to prior examination from 11/23/2020. FINDINGS: There is chronic left pleural reflection identified at the lung base, could be small locula padmini pneumothorax correlating with prior CT scan from February 2020 and subsequent x-rays. Again there are scattered patchy bilateral opacities, could be chronic infectious process or sequela from infectious process. There is some suture material over both lungs could indicate history of part ial pneumonectomies. The lungs are hyperinflated which can be seen with chronic obstructive pulmonary disease (a clinical diagnosis of functional impairment), but is not diagnostic of it. There are no pleural effusions. Cardiomediastinal silhouette is normal. There are no osseous abnormalities identif ied. IMPRESSION: 1. Scattered bilateral perihilar predominant opacities, could be chronic infection, acute on chronic infection, sequela from prior infection. 2. Small chronic left lateral sulcus loculated pneumothorax. 3. Hyperinflation. Reviewed, dictated and finalized at location A. IMPRESSION: 1. Scattered bilateral perihilar predominant opacities, could be chronic infect ion, acute on chronic infection, sequela from prior infection. 2. Small chronic left lateral sulcus loculated pneumothorax. 3. Hyperinflation.
[2021-01-13 14:03] VITALS: BP 123/84; PULSE 112; RESP 24; TEMP 36.8; O2SAT 88
--- NOTE | 2021-01-13 14:17 | ECG_ITS ---
Measurements Intervals [place] Rate: 94 P: 88 DC: 138 QRS: 34 QRSD: 80 T: 76 QT: 353 QTc: 442 Interpretive Statements SINUS RHYTHM BORDERLINE R WAVE PROGRESSION, ANTERIOR LEADS MINIMAL Q WAVES- ANTEROLAT/INF LEADS PEAKED T WAVES- CONSIDER HYPERKALEMIA OR ISCHEMIA BASELINE ARTIFACT- I, II, III, AVR, AVL, AVF ABNORMAL ECG Electronically Signed On 01-13-2021 16:28:55 CDT by Quinton Bell D.O.
--- NOTE | 2021-01-13 14:20 | ED.SOB ---
HPI - SOB/Dyspnea General Chief Complaint: Shortness of Breath/Dyspnea Stated Complaint: sob Time Seen by Provider: 01/13/21 14:12 History of Present Illness HPI Narrative: 55 yo female w/ h/o COPD, anxiety presents to the ED for SOB. She reports that she was at home alone when she began to feel short of breath. She then began to feel anxious and she was not able to locate her anxiety medication, so she called EMS. She received a nebulizer treatment on the way here and she is feeling better. She is on 3 liters of supplemental oxygen at baseline. Related Data Home Medications Medication Instructions Recorded Confirmed montelukast 10 mg PO DAILY 10/19/19 11/22/20 omeprazole 20 mg PO DAILY 10/19/19 11/22/20 escitalopram oxalate 10 mg PO DAILY 11/15/19 11/22/20 folic acid 1 mg PO DAILY 03/07/20 11/22/20 mirtazapine 15 mg PO HS 03/07/20 11/22/20 ergocalciferol (vitamin D2) 50,000 unit PO WEEKLY 03/08/20 11/22/20 fluticasone propionate [Flonase 2 spray INTRANASAL DAILY 03/08/20 11/22/20 Allergy Relief] Allergies Allergy/AdvReac Type Severity Reaction Status Date / Time clindamycin Allergy Severe anaphylactic Verified 01/13/21 14:09 reaction, rash clarithromycin [From Biaxin] Allergy Hives Verified 01/13/21 14:09 Review of Systems Review of Systems: All systems reviewed & are unremarkable except as noted in HPI and below Constitutional: Constitutional: Denies chills and Denies fever(s) Eyes: Eyes: Reports no additional eye complaints ENT: Denies sore throat Cardiovascular: Cardiovascular: Denies chest pain Respiratory: Respiratory: Reports dyspnea and Reports wheezing Gastrointestinal: Gastrointestinal: Denies nausea Genitourinary: Genitourinary: Reports no additional female genitourinary complaints Musculoskeletal: Musculoskeletal: Denies back pain Neurologic: Reports system reviewed and no additional complaints, except as documented Psychiatric: Psychiatric: Reports anxiety PMFSH Past Medical History Medical History Abnormal EKG EKG has previously shown ST elevation which appears to be early repolarization. Alcohol abuse Anorexia Anxiety Asthma B12 deficiency anemia Chronic anemia Chronic respiratory failure with hypoxia and hypercapnia COPD with emphysema Gastroesophageal reflux disease Generalized anxiety disorder with panic attacks Spontaneous pneumothorax (~08/2012) Several pneumothoraces status post VATS procedure and apical blebectomy as well as pleurodesis. Tobacco abuse Vitamin D deficiency Surgical History Surgical History History of bilateral tubal ligation History of History of hip surgery (~07/2019) ORIF of right hip fracture. History of tonsillectomy Status post thoracotomy Left-sided VATS procedure and apical bleb resection with pleurodesis. Family History Family History Father Acute myocardial infarction Father No problems noted. Unknown No problems noted. Mother No problems noted. Sibling No problems noted. Social History Social History Social History: The patient lives with her 17-year-old son in [place]. She has 2 other sons who are grown out of the home. 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 She smoked as many as 2 packs of cigarettes per day and tells me she now smokes maybe a half a pack a day. She is not forthcoming with the amount of alcohol she uses, but tells me she drinks several times a week, maybe 3 or 4 beers at a time, maybe heavier on the weekends. She denies illicit substance use. Her brother Manish Gardner is her surrogate decision maker and she wishes to be a full code. Smoking packs per day: 2 Smoking cigarettes per day: 40.0 Years
[2021-01-13 14:25] LABS: Basophils Absolute Auto 0.1 K/mm3 (0.0-0.1); Basophils Percent Auto 0.7 % (0.2-1.2); Eosinophils Absolute Auto 0.3 K/mm3 (0-0.3); Eosinophils Percent Auto 4.3 % (0-4.4); Hemoglobin 11.8 g/dL (12.0-15.0); Immature Granulocyte Absolute 0.03 K/mm3 (0.00-0.031); Immature Granulocyte Percent A 0.4 % (0-0.5); Lymphocytes Absolute Auto 0.87 K/mm3 (0.9-3.2); Lymphocytes Percent Auto 11.4 % (18.3-44.2); Mean Corpuscular HGB Conc 30.3 g/dl (32-36); Mean Corpuscular Hemoglobin 28.2 pg (26-34); Mean Corpuscular Volume 93.3 fl (80-100); Mean Platelet Volume 8.4 fl (7.4-10.4); Monocytes Absolute Auto 0.7 K/mm3 (0.1-0.6); Monocytes Percent Auto 9.1 % (2.6-8.5); Neutrophils Absolute Auto 5.7 K/mm3 (1.3-6.7); Neutrophils Percent Auto 74.1 % (45.5-73.1); Platelet Count Result 700 k/mm3 (150-375); Red Blood Count 4.18 M/mm3 (4.2-5.4); Red Cell Distribution Width 14.2 % (11.5-14.5); White Blood Count 7.6 K/mm3 (4.5-10.0)
[2021-01-13 14:31] VITALS: O2SAT 96
[2021-01-13 15:25] VITALS: BP 116/82; PULSE 107; RESP 24; O2SAT 95
[2021-01-13 15:28] LABS: Blood Urea Nitrogen 7 mg/dL (7-17); Calcium 8.9 mg/dL (8.4-10.2); Carbon Dioxide > 40 mmol/L (22-30); Chloride 92 mmol/L (98-107); Estimated CRCL calculation 71 ml/min; Estimated Glomerular Filt Rate > 60; Glucose 105 mg/dL (65-105); Potassium 3.9 mmol/L (3.4-5.0); Sodium 135 mmol/L (137-145)
[2021-01-13 16:17] VITALS: BP 120/77; PULSE 99; RESP 22; O2SAT 96
[2021-01-13 16:52] VITALS: BP 114/64; PULSE 88; RESP 14; O2SAT 99
== END 2021-01-13 16:52 | disposition home or self-care (01) ==
PROVIDERS: Emergency Provider Emergency Medicine; PCP Family Medicine
DX: J43.9 Emphysema, unspecified (principal); F41.1 Generalized anxiety disorder; J96.11 Chronic respiratory failure with hypoxia; J96.12 Chronic respiratory failure with hypercapnia; K21.9 Gastro-esophageal reflux disease without esophagitis; D51.9 Vitamin B12 deficiency anemia, unspecified; E55.9 Vitamin D deficiency, unspecified; Z87.891 Personal history of nicotine dependence; Z99.81 Dependence on supplemental oxygen; R94.31 Abnormal electrocardiogram [ECG] [EKG]
CPT/HCPCS: 36415; 71046; 80048; 85025; 93005; 99284

== ENCOUNTER 2021-01-13 22:14 | Emergency (ER) | payer MEDICARE, MEDICAID, SELFPAY ==
[2021-01-13 22:18] VITALS: BP 114/85; PULSE 104; RESP 23; TEMP 36.2; O2SAT 95
[2021-01-13] MEDS: LORazepam (*CRX) 0.5 MG TABLET 1 MG PO (22:50)
--- NOTE | 2021-01-13 22:56 | ED.ANXIETY ---
HPI - Anxiety General Chief Complaint: Anxiety Stated Complaint: SOB Time Seen by Provider: 01/13/21 22:23 Source: patient, EMS and RN notes reviewed Mode of arrival: EMS Limitations: no limitations History of Present Illness HPI narrative: Patient is 55 years old white female came to the emergency room by ambulance because she misplaced her anxiety medication somewhere. Last anxiety medicine intake was over 5 days ago. Patient feels stressed, anxious, restless. Denies any shortness of breath chest pain, headache, nausea, vomiting, back pain or abdominal pain. Patient lives with her son and she have lots of stress lately Related Data Home Medications Medication Instructions Recorded Confirmed montelukast 10 mg PO DAILY 10/19/19 11/22/20 omeprazole 20 mg PO DAILY 10/19/19 11/22/20 escitalopram oxalate 10 mg PO DAILY 11/15/19 11/22/20 folic acid 1 mg PO DAILY 03/07/20 11/22/20 mirtazapine 15 mg PO HS 03/07/20 11/22/20 ergocalciferol (vitamin D2) 50,000 unit PO WEEKLY 03/08/20 11/22/20 fluticasone propionate [Flonase 2 spray INTRANASAL DAILY 03/08/20 11/22/20 Allergy Relief] Allergies Allergy/AdvReac Type Severity Reaction Status Date / Time clindamycin Allergy Severe anaphylactic Verified 01/13/21 14:09 reaction, rash clarithromycin [From Biaxin] Allergy Hives Verified 01/13/21 14:09 Review of Systems Review of Systems: Narrative: CONSTITUTIONAL: Denies fever, chills, or sweats. EYES: Denies visual changes, redness, or discharge. ENT: Denies rhinorrhea, congestion, sore throat, or otalgia. CARDIOVASCULAR: Denies chest pain, palpitations, or edema. RESPIRATORY: Denies cough or dyspnea. GASTROINTESTINAL: Denies abdominal pain, nausea, vomiting, or diarrhea. GENITOURINARY: Denies dysuria or hematuria. SKIN: Denies rash or itching. MUSCULOSKELETAL: Denies back pain, joint pain, or myalgia. NEUROLOGIC: Denies headache, numbness, or weakness. PSYCHIATRIC: Denies anxiety or depression. [facility] Past Medical History Medical History Abnormal EKG EKG has previously shown ST elevation which appears to be early repolarization. Alcohol abuse Anorexia Anxiety Asthma B12 deficiency anemia Chronic anemia Chronic respiratory failure with hypoxia and hypercapnia COPD with emphysema Gastroesophageal reflux disease Generalized anxiety disorder with panic attacks Spontaneous pneumothorax (~08/2012) Several pneumothoraces status post VATS procedure and apical blebectomy as well as pleurodesis. Tobacco abuse Vitamin D deficiency Surgical History Surgical History History of bilateral tubal ligation History of History of hip surgery (~07/2019) ORIF of right hip fracture. History of tonsillectomy Status post thoracotomy Left-sided VATS procedure and apical bleb resection with pleurodesis. Family History Family History Father Acute myocardial infarction Father No problems noted. Unknown No problems noted. Mother No problems noted. Sibling No problems noted. Social History Social History Social History: The patient lives with her 17-year-old son in [place]. She has 2 other sons who are grown out of the home. 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 She smoked as many as 2 packs of cigarettes per day and tells me she now smokes maybe a half a pack a day. She is not forthcoming with the amount of alcohol she uses, but tells me she drinks several times a week, maybe 3 or 4 beers at a time, maybe heavier on the weekends. She denies illicit substance use. Her brother Manish Gardner is her surrogate decision maker and she wishes to be a full code. Smoking packs per day: 2 Smoking cigarettes per day: 40.0 Years smoked: 35 Smoking pack
[2021-01-13 23:00] VITALS: BP 112/83; PULSE 108; RESP 19; O2SAT 91
--- NOTE | 2021-01-14 00:23 | PC.NURSE ---
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
[2021-01-14 00:30] VITALS: BP 114/97; PULSE 115; RESP 22; O2SAT 96
[2021-01-14 01:30] VITALS: BP 95/63; PULSE 101; RESP 22; O2SAT 96
== END 2021-01-14 01:30 | disposition home or self-care (01) ==
PROVIDERS: Emergency Provider Emergency Medicine; PCP Family Medicine
DX: F41.1 Generalized anxiety disorder (principal); D51.9 Vitamin B12 deficiency anemia, unspecified; J43.9 Emphysema, unspecified; J96.11 Chronic respiratory failure with hypoxia; J96.12 Chronic respiratory failure with hypercapnia; K21.9 Gastro-esophageal reflux disease without esophagitis; E55.9 Vitamin D deficiency, unspecified; F17.210 Nicotine dependence, cigarettes, uncomplicated
CPT/HCPCS: 99283; A9270

== ENCOUNTER 2021-01-14 20:26 | Inpatient (IN) | payer MEDICARE, MEDICAID, SELFPAY ==
[2021-01-14 20:33] VITALS: BP 126/82; PULSE 100; RESP 20; TEMP 36.7; O2SAT 96
--- NOTE | 2021-01-14 20:34 | ECG_ITS ---
Measurements Intervals [place] Rate: 102 P: 87 CT: 130 QRS: 48 QRSD: 85 T: 73 QT: 339 QTc: 442 Interpretive Statements SINUS TACHYCARDIA BORDERLINE R WAVE PROGRESSION, ANTERIOR LEADS MINIMAL Q WAVES- INF/LAT LEADS BASELINE ARTIFACT- I, II, III, AVR, AVL, AVF BORDERLINE ECG Electronically Signed On 01-15-2021 7:05:03 CDT by Quinton Bell D.O.
[2021-01-14 20:46] VITALS: BP 122/68; PULSE 100; PULSE 96; RESP 19; O2SAT 99
[2021-01-14 21:10] LABS: Alveolar/Arterial O2 Gradient 95.5 mmHg; Base Excess ABG 8.1 mEq/l (+/-2.0); Fractional Inspired Oxygen 36 %; HCO3 ABG 35.3 mEq/l (22.0-26.0); Oxygen Content ABG 16.7 %vol (16.0-22.0); Oxygen Saturation ABG 96.3 % (95.0-100.0); Oxyhemoglobin 95.3 % THb (90.0-100.0); PO2 FiO2 Ratio Arterial Blood 2.47 %; Total Hemoglobin 12.4 g/dL (12.0-18.0); pH ABG 7.372 (7.350-7.450)
[2021-01-14 21:13] LABS: Device NASAL CANNULA; Modified Allen's Test Pass; PCO2 ABG 62.2 mmHg (35.0-45.0); Site Drawn RIGHT RADIAL
[2021-01-14 21:17] LABS: Alanine Aminotransferase 8 U/L (4-35); Albumin Level 3.5 g/dL (3.5-5.1); Alkaline Phosphatase 93 U/L (38-126); Anion Gap 3 mmol/L (8-16); Aspartate Amino Transferase 24 U/L (14-36); Bilirubin,Total 0.2 mg/dL (0.2-1.3); Blood Urea Nitrogen 6 mg/dL (7-17); Calcium 8.6 mg/dL (8.4-10.2); Carbon Dioxide 36 mmol/L (22-30); Chloride 93 mmol/L (98-107); Estimated CRCL calculation 72 ml/min; Estimated Glomerular Filt Rate > 60; Glucose 91 mg/dL (65-105); Potassium 3.8 mmol/L (3.4-5.0); Sodium 132 mmol/L (137-145)
[2021-01-14 21:22] LABS: Basophils Absolute Auto 0.1 K/mm3 (0.0-0.1); Basophils Percent Auto 1.1 % (0.2-1.2); Eosinophils Absolute Auto 0.5 K/mm3 (0-0.3); Eosinophils Percent Auto 7.2 % (0-4.4); Hematocrit 36.7 % (37.0-47.0); Hemoglobin 11.3 g/dL (12.0-15.0); Immature Granulocyte Absolute 0.03 K/mm3 (0.00-0.031); Immature Granulocyte Percent A 0.5 % (0-0.5); Lymphocytes Absolute Auto 0.82 K/mm3 (0.9-3.2); Lymphocytes Percent Auto 12.6 % (18.3-44.2); Mean Corpuscular HGB Conc 30.8 g/dl (32-36); Mean Corpuscular Hemoglobin 28.3 pg (26-34); Mean Corpuscular Volume 91.8 fl (80-100); Mean Platelet Volume 8.1 fl (7.4-10.4); Monocytes Absolute Auto 0.6 K/mm3 (0.1-0.6); Monocytes Percent Auto 8.9 % (2.6-8.5); Neutrophils Absolute Auto 4.5 K/mm3 (1.3-6.7); Neutrophils Percent Auto 69.7 % (45.5-73.1); Platelet Count Result 680 k/mm3 (150-375); Red Cell Distribution Width 13.7 % (11.5-14.5); White Blood Count 6.5 K/mm3 (4.5-10.0)
[2021-01-14 21:26] LABS: NT Pro B Type Natriuretic Pept 67 PG/ML (5-100)
[2021-01-14 22:31] LABS: Troponin I < 0.012 ng/mL (0.000-0.034)
--- NOTE | 2021-01-14 22:46 | ED.SOB ---
HPI - SOB/Dyspnea General Chief Complaint: Shortness of Breath/Dyspnea Stated Complaint: sob Time Seen by Provider: 01/14/21 20:34 Source: patient Mode of arrival: EMS Limitations: no limitations History of Present Illness HPI Narrative: of 1009 55-year-old with a history of COPD, anxiety disorder was brought in from home with complaints of shortness of breath. Patient stated patient states this is her third visit to the emergency room. She has occasional nonproductive cough. She denies any chest pain.She is on 3 L of oxygen at home. Regardless that she was unable to breathe even though while she was on oxygen and as per EMS her O2 saturations were 70%. However hard stick calmed her down her so O2 saturations gradually improved. MD elicited complaint: shortness of breath Pertinent past history: COPD Onset (ago): minute(s) (45) Severity: moderate Exacerbating factors: nothing Relieving factors: oxygen Known history of: COPD Associated symptoms: wheezing Related Data Home oxygen amount: 3 liters Home Medications Medication Instructions Recorded Confirmed montelukast 10 mg PO DAILY 10/19/19 11/22/20 omeprazole 20 mg PO DAILY 10/19/19 11/22/20 escitalopram oxalate 10 mg PO DAILY 11/15/19 11/22/20 folic acid 1 mg PO DAILY 03/07/20 11/22/20 mirtazapine 15 mg PO HS 03/07/20 11/22/20 ergocalciferol (vitamin D2) 50,000 unit PO WEEKLY 03/08/20 11/22/20 fluticasone propionate [Flonase 2 spray INTRANASAL DAILY 03/08/20 11/22/20 Allergy Relief] Allergies Allergy/AdvReac Type Severity Reaction Status Date / Time clindamycin Allergy Severe anaphylactic Verified 01/13/21 14:09 reaction, rash clarithromycin [From Biaxin] Allergy Hives Verified 01/13/21 14:09 Review of Systems Review of Systems: All systems reviewed & are unremarkable except as noted in HPI and below Constitutional: Constitutional: Reports no additional constitutional complaints Eyes: Eyes: Reports no additional eye complaints ENT: Reports system reviewed and no additional complaints, except as documented Cardiovascular: Cardiovascular: Reports no additional cardiovascular complaints Respiratory: Respiratory: Reports as per HPI Gastrointestinal: Gastrointestinal: Reports no additional gastrointestinal complaints Musculoskeletal: Musculoskeletal: Reports no additional musculoskeletal complaints Neurologic: Reports system reviewed and no additional complaints, except as documented PMF Past Medical History Medical History Abnormal EKG EKG has previously shown ST elevation which appears to be early repolarization. Alcohol abuse Anorexia Anxiety Asthma B12 deficiency anemia Chronic anemia Chronic respiratory failure with hypoxia and hypercapnia COPD with emphysema Gastroesophageal reflux disease Generalized anxiety disorder with panic attacks Spontaneous pneumothorax (~08/2012) Several pneumothoraces status post VATS procedure and apical blebectomy as well as pleurodesis. Tobacco abuse Vitamin D deficiency Surgical History Surgical History History of bilateral tubal ligation History of History of hip surgery (~07/2019) ORIF of right hip fracture. History of tonsillectomy Status post thoracotomy Left-sided VATS procedure and apical bleb resection with pleurodesis. Family History Family History Father Acute myocardial infarction Father No problems noted. Unknown No problems noted. Mother No problems noted. Sibling No problems noted. Social History Social History Social History: The patient lives with her 17-year-old son in [place]. She has 2 other sons who are grown out of the home. 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 She smoked as ma
[2021-01-14 23:11] VITALS: PULSE 94; RESP 20
[2021-01-14] MEDS: ALBUTEROL SULFATE NEB 2.5 MG/0.5 ML INH 5 MG INHALATION (23:13)
[2021-01-14] MEDS: IPRATROPIUM BR 0.02% INH SOLN 0.5 MG/2.5 ML VIAL INHALATION (23:13)
[2021-01-14 23:29] VITALS: BP 100/69; PULSE 105; RESP 16; TEMP 36.6; O2SAT 93
[2021-01-14 23:45] VITALS: BP 135/81; PULSE 107; RESP 20; TEMP 37.1; O2SAT 96
[2021-01-15] VITALS (15 sets, daily range): BP systolic 100–117; BP diastolic 59–76; PULSE 93–108; RESP 18–20; TEMP 36.3–36.8; O2SAT 91–98; BMI 17.0
--- NOTE | 2021-01-15 00:10 | ADMGEN ---
This patient, Esther Brink, was admitted to [facility] Surg Room 330-01. Patient/family oriented to hospital policies and general routines including ID bracelet, bed and alarms, visiting hours, pain management, procedures, bathroom and other care routines, personal items, smoking policy, room service/diet, and visiting hours. Information on how to activate the Rapid Response Team has been discussed. Patient/Family are encouraged to report perceived risks to care and to ask questions if they do not understand what they are told or what they should do.
[2021-01-15] MEDS: SODIUM CHLORIDE 0.9% IV 1,000 ML 75 ML IV CONT (01:31)
[2021-01-15] MEDS: LORazepam INJ (*CRX) 2 MG/ML VIAL 0.5 MG IV PUSH (03:31)
[2021-01-15] MEDS: methylPREDNISolone SOD SUCC 125 MG VIAL 62.5 MG IV PUSH ×3 (05:48→17:25)
[2021-01-15 06:05] LABS: Basophils Percent Auto 0.4 % (0.2-1.2); Hematocrit 36.6 % (37.0-47.0); Hemoglobin 11.3 g/dL (12.0-15.0); Immature Granulocyte Absolute 0.01 K/mm3 (0.00-0.031); Immature Granulocyte Percent A 0.4 % (0-0.5); Lymphocytes Absolute Auto 0.28 K/mm3 (0.9-3.2); Lymphocytes Percent Auto 10.5 % (18.3-44.2); Mean Corpuscular HGB Conc 30.9 g/dl (32-36); Mean Corpuscular Hemoglobin 28.2 pg (26-34); Mean Corpuscular Volume 91.3 fl (80-100); Mean Platelet Volume 8.4 fl (7.4-10.4); Monocytes Percent Auto 1.5 % (2.6-8.5); Neutrophils Absolute Auto 2.3 K/mm3 (1.3-6.7); Neutrophils Percent Auto 87.2 % (45.5-73.1); Platelet Count Result 710 k/mm3 (150-375); Red Blood Count 4.01 M/mm3 (4.2-5.4); Red Cell Distribution Width 13.8 % (11.5-14.5); White Blood Count 2.7 K/mm3 (4.5-10.0)
[2021-01-15 06:14] LABS: Blood Urea Nitrogen 8 mg/dL (7-17); Calcium 8.6 mg/dL (8.4-10.2); Carbon Dioxide > 40 mmol/L (22-30); Chloride 93 mmol/L (98-107); Estimated CRCL calculation 82 ml/min; Estimated Glomerular Filt Rate > 60; Glucose 137 mg/dL (65-105); Potassium 4.1 mmol/L (3.4-5.0); Sodium 133 mmol/L (137-145)
--- NOTE | 2021-01-15 08:27 | PM.IMHP ---
H&P: HPI History of Present Illness Date/Time: 01/15/21 08:27 This is a 55-year-old female with past medical history significant for alcohol dependence, generalized sense had, COPD /asthma, GERD, patient presented to emergency room due to worsening shortness of breath for the last week or so, she has dry cough sometimes is productive of scanty yellow tannish sputum. She denies any chills fevers or rigors she states that she feels very anxious and would like something to help her with that. she denies any chills fevers or rigors, no chest pain no PND no orthopnea, no nausea no vomiting no diarrhea no constipation, no pain or burning with urination. preliminary workup was significant for a chest x-ray showing infiltrates. patient has been admitted to general medical floor. Chief Complaint: shortness of breath Review of Systems Review of Systems: Narrative: worsening shortness of breath Constitutional: Comments: no fevers no chills no right ENT: Comments: no nasal congestion, no throat pain, no earache. Cardiovascular: Comments: no chest pain or PND no orthopnea Respiratory: Comments: dry cough, at times productive of sputum which is yellow jansen, worsening shortness of breath for a week or so. Gastrointestinal: Comments: no nausea no vomiting no diarrhea no constipation no abdominal pain Genitourinary: Comments: no pain or burning with urination Musculoskeletal: Comments: no joint pain or muscle pain Integumentary/Breasts: Comments: no rashes Neurologic: Comments: tremors. Psychiatric: Psychiatric: Reports anxiety Comments: Endocrine: Comments: no polydipsia polyphagia or polyuria no heat or cold intolerance PMFSH Past Medical History Medical History Abnormal EKG EKG has previously shown ST elevation which appears to be early repolarization. Alcohol abuse Anorexia Anxiety Asthma B12 deficiency anemia Chronic anemia Chronic respiratory failure with hypoxia and hypercapnia COPD with emphysema Gastroesophageal reflux disease Generalized anxiety disorder with panic attacks Spontaneous pneumothorax (~08/2012) Several pneumothoraces status post VATS procedure and apical blebectomy as well as pleurodesis. Tobacco abuse Vitamin D deficiency Surgical History Surgical History History of bilateral tubal ligation History of History of hip surgery (~07/2019) ORIF of right hip fracture. History of tonsillectomy Status post thoracotomy Left-sided VATS procedure and apical bleb resection with pleurodesis. Family History Family History Father Acute myocardial infarction Father No problems noted. Unknown No problems noted. Mother No problems noted. Sibling No problems noted. Social History Social History Social History: The patient lives with her 17-year-old son in [place]. She has 2 other sons who are grown out of the home. 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 She smoked as many as 2 packs of cigarettes per day and tells me she now smokes maybe a half a pack a day. She is not forthcoming with the amount of alcohol she uses, but tells me she drinks several times a week, maybe 3 or 4 beers at a time, maybe heavier on the weekends. She denies illicit substance use. Her brother Manish Gardner is her surrogate decision maker and she wishes to be a full code. Smoking packs per day: 1.5 Smoking cigarettes per day: 30.0 Years smoked: 35 Smoking pack-years: 52.50 Smoking status: Former smoker Tobacco type: cigarettes Second hand tobacco smoke exposure: No Smoking end date: 03/19/20 Additional smoking assessment comments: Patient states she no longer smokes but can't say when she quit Alcohol intake:
[2021-01-15] MEDS: ALBUTEROL SULFATE NEB 2.5 MG/0.5 ML INH 5 MG INHALATION ×3 (08:40→19:54)
[2021-01-15] MEDS: IPRATROPIUM BR 0.02% INH SOLN 0.5 MG/2.5 ML VIAL INHALATION ×3 (08:40→19:54)
[2021-01-15] MEDS: CALCIUM CARBONATE (OSCAL) 500 MG TABLET PO ×2 (10:39→17:25)
[2021-01-15] MEDS: ESCITALOPRAM OXALATE 10 MG TABLET PO (10:39)
[2021-01-15] MEDS: ALPRAZolam (*CRX) 0.5 MG TABLET PO ×2 (10:39→17:57)
[2021-01-15] MEDS: PANTOPRAZOLE 40 MG TABLET PO (10:39)
--- NOTE | 2021-01-15 12:54 | PCNSR ---
On 01/15/21, the student, Isabel Harden, provided care and completed [facility] documentation on this patient. I have reviewed the student's documentation and agree with the findings.
[2021-01-15] MEDS: FLUTICASONE/SALMETEROL 115-21 MCG INHALER 1 PUFF 2 PUFF INHALATION (19:57)
[2021-01-15] MEDS: ACETAMINOPHEN 325 MG TABLET 650 MG PO (22:20)
[2021-01-15] MEDS: MONTELUKAST SODIUM 10 MG TABLET PO (22:21)
[2021-01-16] VITALS (19 sets, daily range): BP systolic 93–119; BP diastolic 50–66; PULSE 62–105; RESP 16–20; TEMP 36.1–37.1; O2SAT 91–100
[2021-01-16] MEDS: ALPRAZolam (*CRX) 0.5 MG TABLET PO ×4 (00:01→23:16)
[2021-01-16] MEDS: methylPREDNISolone SOD SUCC 125 MG VIAL 62.5 MG IV PUSH ×5 (00:01→23:12)
[2021-01-16] MEDS: IPRATROPIUM BR 0.02% INH SOLN 0.5 MG/2.5 ML VIAL INHALATION ×4 (01:55→21:21)
[2021-01-16] MEDS: ALBUTEROL SULFATE NEB 2.5 MG/0.5 ML INH 5 MG INHALATION ×4 (01:55→21:21)
[2021-01-16] MEDS: UMECLIDINIUM BROMIDE 62.5 MCG ELLIPTA 1 PUFF INHALATION (07:44)
[2021-01-16] MEDS: FLUTICASONE/SALMETEROL 115-21 MCG INHALER 1 PUFF 2 PUFF INHALATION ×2 (07:45→21:22)
[2021-01-16] MEDS: ESCITALOPRAM OXALATE 10 MG TABLET PO (08:50)
[2021-01-16] MEDS: THIAMINE HCL 100 MG TABLET PO (08:50)
[2021-01-16] MEDS: CALCIUM CARBONATE (OSCAL) 500 MG TABLET PO ×2 (08:50→17:08)
[2021-01-16] MEDS: FOLIC ACID 1 MG TABLET PO (08:50)
[2021-01-16] MEDS: PANTOPRAZOLE 40 MG TABLET PO (08:50)
[2021-01-16] MEDS: chlordiazePOXIDE (*CRX) 25 MG CAPSULE PO ×2 (12:36→17:08)
--- NOTE | 2021-01-16 15:40 | PM.IMPN ---
Progress Note: A&P Assessment and Plan (1) Acute exacerbation of chronic obstructive pulmonary disease: Code(s): J44.1 - Chronic obstructive pulmonary disease with (acute) exacerbation Status: Acute Assessment and Plan: Continue breathing treatment Continue systemic steroids Improved (2) Lung infiltrate: Code(s): R91.8 - Other nonspecific abnormal finding of lung field Status: Acute Assessment and Plan: On Rocephin and Zithromax Continue to monitor Await cultures (3) Protein-calorie malnutrition, severe: Code(s): E43 - Unspecified severe protein-calorie malnutrition Status: Acute Assessment and Plan: Dietitian consult Regular diet (4) Anxiety: Code(s): F41.9 - Anxiety disorder, unspecified Status: Acute Assessment and Plan: Added Librium Continue Xanax Continue to monitor (5) Alcohol abuse: Code(s): F10.10 - Alcohol abuse, uncomplicated Status: Acute Assessment and Plan: Daily thiamine and folate CIWA protocol as needed Continue to monitor (6) Pneumothorax on left: Code(s): J93.9 - Pneumothorax, unspecified Status: Acute Assessment and Plan: Stable continue to monitor Subjective Date/time seen: 01/16/21 15:40 Patient states that she feels very anxious. Review of Systems Review of Systems: Narrative: Patient presented to the emergency room due to shortness of breath feeling anxious Constitutional: Comments: No fevers no rigors no chills Cardiovascular: Comments: No chest pain Respiratory: Comments: Shortness of breath, persistent cough productive of scanty yellow tannish sputum Gastrointestinal: Comments: No nausea no vomiting no diarrhea no abdominal Musculoskeletal: Comments: No muscle pain or joint pain Integumentary/Breasts: Comments: No rash Neurologic: Comments: Tremors at rest Exam Narrative: Exam Narrative: Laying in bed in no acute distress Const: General: comfortable, no acute distress, alert, awake, tired appearing and other (Chronically looking) Nutritional Appearance: average body habitus and underweight Orientation/consciousness: patient oriented x3 HENMT: Head: normal to inspection, normocephalic and atraumatic Ears: hearing grossly normal bilaterally Face and sinus: normal facial exam Eyes: General: appearance normal, both eyes and all related structures Pupils: Equal, round and reactive pupils present EOM: EOMs intact bilaterally Neck: Neck: full ROM, no lymphadenopathy and no JVD Thyroid: thyroid normal Lymphatic: no lymphadenopathy noted Resp: Effort & Inspection: normal respiratory effort and able to speak in complete sentences Auscultation: clear to auscultation bilaterally Cardio: Jugular venous distension: no JVD Rate: regular rate Rhythm: regular rhythm Heart sounds: S1 normal heart sound present and S2 normal heart sound present GI: GI Palp: Yes Soft to palpation and Yes No hepatosplenomegaly present : General: Yes deferred Skin: Rashes: no rashes Wounds: no wounds Neuro: General: patient oriented x3 and CN's II-XI intact bilaterally Cranial nerves: Yes CN's II-XII intact bilaterally and Yes Equal, round and reactive pupils present Cognition (Neuro): normal cognition Speech: normal speech Gait exam (Neuro): Normal gait present Motor exam (neuro): 5/5 motor strength present throughout, Tremors during motor activity present (Hand) bilateral upper extremity and Other motor observations present Extrem: General: normal to inspection, full ROM, no joint enlargement and no pedal edema Objective Data Vital Signs Vital Signs: Vital Signs - 24 hr 01/15/21 15:58 01/15/21 16:00 01/15/21 19:54 Temperature Pulse Rate 104 H Pulse Rate [Right Monitor] 105 H Respiratory Rate 18 Blood Pressure 117/76 Pulse Oximetry 96 95 01/15/21 20:05 01/15/21 22:00 01/16/21 01:55 Temperature 97.3 F L Pulse Rate 103 H 99 103 H Pulse R
[2021-01-16] MEDS: MONTELUKAST SODIUM 10 MG TABLET PO (20:22)
[2021-01-17] VITALS (18 sets, daily range): BP systolic 84–108; BP diastolic 46–55; PULSE 71–98; RESP 16–20; TEMP 35.9–36.7; O2SAT 91–98
[2021-01-17] MEDS: chlordiazePOXIDE (*CRX) 25 MG CAPSULE PO ×5 (00:14→23:08)
[2021-01-17] MEDS: ALBUTEROL SULFATE NEB 2.5 MG/0.5 ML INH 5 MG INHALATION ×4 (03:00→20:51)
[2021-01-17] MEDS: IPRATROPIUM BR 0.02% INH SOLN 0.5 MG/2.5 ML VIAL INHALATION ×4 (03:00→20:51)
[2021-01-17] MEDS: methylPREDNISolone SOD SUCC 125 MG VIAL 62.5 MG IV PUSH ×4 (05:05→23:08)
--- NOTE | 2021-01-17 06:00 | PC.NURSE ---
Called Dr. Bills about low BP. Patient denies nausea, chest pain, or light headedness. BP of 84/48 reported at this time. states that he will be putting a order in for a bolus of fluid.
[2021-01-17] MEDS: SODIUM CHLORIDE 0.9% IV 500 ML 999 ML IV CONT (06:11)
[2021-01-17] MEDS: ALPRAZolam (*CRX) 0.5 MG TABLET PO ×2 (08:42→21:48)
[2021-01-17] MEDS: THIAMINE HCL 100 MG TABLET PO (08:42)
[2021-01-17] MEDS: FOLIC ACID 1 MG TABLET PO (08:42)
[2021-01-17] MEDS: PANTOPRAZOLE 40 MG TABLET PO (08:42)
[2021-01-17] MEDS: CALCIUM CARBONATE (OSCAL) 500 MG TABLET PO ×2 (08:42→17:05)
[2021-01-17] MEDS: ESCITALOPRAM OXALATE 10 MG TABLET PO (08:42)
[2021-01-17] MEDS: FLUTICASONE/SALMETEROL 115-21 MCG INHALER 1 PUFF 2 PUFF INHALATION ×2 (10:17→20:51)
[2021-01-17] MEDS: UMECLIDINIUM BROMIDE 62.5 MCG ELLIPTA 1 PUFF INHALATION (10:19)
--- NOTE | 2021-01-17 15:39 | PM.IMPN ---
Progress Note: A&P Assessment and Plan (1) Lung infiltrate: Code(s): R91.8 - Other nonspecific abnormal finding of lung field Status: Acute Assessment and Plan: consulted ceftriaxone and Zithromax appears to have improved clinically (2) Acute exacerbation of chronic obstructive pulmonary disease: Code(s): J44.1 - Chronic obstructive pulmonary disease with (acute) exacerbation Status: Acute Assessment and Plan: on breathing treatments systemic steroids supplemental oxygen appears to have improved (3) Anxiety: Code(s): F41.9 - Anxiety disorder, unspecified Status: Acute Assessment and Plan: continue Xanax added Librium improved (4) Protein-calorie malnutrition, severe: Code(s): E43 - Unspecified severe protein-calorie malnutrition Status: Acute Assessment and Plan: on a regular diet continue to monitor oral intake (5) Alcohol abuse: Code(s): F10.10 - Alcohol abuse, uncomplicated Status: Acute Assessment and Plan: continue to monitor encourage alcohol cessation CIWA as needed thiamine daily folate daily (6) Atrial fibrillation: Qualifiers: Atrial fibrillation type: unspecified Qualified Code(s): I48.91 - Unspecified atrial fibrillation Code(s): I48.91 - Unspecified atrial fibrillation Status: Acute Assessment and Plan: rate controlled not anticoagulated continue to monitor Subjective Date/time seen: 01/17/21 15:39 I feel much better Review of Systems Review of Systems: Narrative: patient denies any issues today Constitutional: Comments: no fevers no rigors no chills Cardiovascular: Comments: no chest pain no PND no orthopnea no leg swelling Respiratory: Comments: shortness of breath cough Gastrointestinal: Comments: no nausea no vomiting no abdominal pain no diarrhea Musculoskeletal: Comments: no joint pain or muscle pain Integumentary/Breasts: Comments: no rashes Neurologic: Comments: no sensorimotor deficit Exam Narrative: Exam Narrative: sitting in bed Const: General: comfortable, no acute distress, well developed, alert, awake and other ( chronically ill-looking) Nutritional Appearance: underweight Orientation/consciousness: patient oriented x3 HENMT: Head: normal to inspection, normocephalic and atraumatic Ears: hearing grossly normal bilaterally Face and sinus: normal facial exam Eyes: General: appearance normal, both eyes and all related structures Pupils: Equal, round and reactive pupils present EOM: EOMs intact bilaterally Neck: Neck: full ROM, no lymphadenopathy and no JVD Thyroid: thyroid normal Lymphatic: no lymphadenopathy noted Resp: Effort & Inspection: normal respiratory effort, able to speak in complete sentences and other ( on supplemental oxygen by nasal cannula) Auscultation: diminished lung sounds Cardio: Jugular venous distension: no JVD Rate: regular rate Rhythm: regular rhythm Heart sounds: S1 normal heart sound present and S2 normal heart sound present GI: GI Palp: Yes Soft to palpation and Yes No hepatosplenomegaly present : General: Yes deferred Skin: Rashes: no rashes Wounds: no wounds Neuro: General: patient oriented x3 and CN's II-XI intact bilaterally Cranial nerves: Yes CN's II-XII intact bilaterally and Yes Equal, round and reactive pupils present Cognition (Neuro): normal cognition Speech: normal speech Gait exam (Neuro): Normal gait present Motor exam (neuro): 5/5 motor strength present throughout Extrem: General: normal to inspection, full ROM, no joint enlargement and no pedal edema Objective Data Vital Signs Vital Signs: Vital Signs - 24 hr 01/16/21 16:00 01/16/21 20:00 01/16/21 21:24 Temperature Pulse Rate 91 Pulse Rate [Right Monitor] 74 Respiratory Rate 20 Blood Pressure 97/61 L Pulse Oximetry 93 01/16/21 21:25 01/16/21 21:34 01/16/21 21:38
[2021-01-17] MEDS: MONTELUKAST SODIUM 10 MG TABLET PO (20:41)
[2021-01-18] VITALS (9 sets, daily range): BP systolic 104–107; BP diastolic 59–61; PULSE 80–92; RESP 16–20; TEMP 36.3–36.7; O2SAT 93–99
[2021-01-18] MEDS: ALBUTEROL SULFATE NEB 2.5 MG/0.5 ML INH 5 MG INHALATION ×3 (02:35→14:09)
[2021-01-18] MEDS: IPRATROPIUM BR 0.02% INH SOLN 0.5 MG/2.5 ML VIAL INHALATION ×3 (02:35→14:09)
[2021-01-18] MEDS: chlordiazePOXIDE (*CRX) 25 MG CAPSULE PO ×2 (05:06→12:28)
[2021-01-18] MEDS: methylPREDNISolone SOD SUCC 125 MG VIAL 62.5 MG IV PUSH ×2 (05:06→14:56)
[2021-01-18] MEDS: THIAMINE HCL 100 MG TABLET PO (08:17)
[2021-01-18] MEDS: ESCITALOPRAM OXALATE 10 MG TABLET PO (08:17)
[2021-01-18] MEDS: PANTOPRAZOLE 40 MG TABLET PO (08:17)
[2021-01-18] MEDS: CALCIUM CARBONATE (OSCAL) 500 MG TABLET PO (08:17)
[2021-01-18] MEDS: FOLIC ACID 1 MG TABLET PO (08:17)
[2021-01-18] MEDS: UMECLIDINIUM BROMIDE 62.5 MCG ELLIPTA 1 PUFF INHALATION (08:36)
[2021-01-18] MEDS: FLUTICASONE/SALMETEROL 115-21 MCG INHALER 1 PUFF 2 PUFF INHALATION (08:38)
[2021-01-18 08:48] LABS: Hematocrit 37.3 % (37.0-47.0); Hemoglobin 11.6 g/dL (12.0-15.0); Immature Granulocyte Absolute 0.03 K/mm3 (0.00-0.031); Immature Granulocyte Percent A 0.5 % (0-0.5); Lymphocytes Absolute Auto 0.15 K/mm3 (0.9-3.2); Lymphocytes Percent Auto 2.3 % (18.3-44.2); Mean Corpuscular HGB Conc 31.1 g/dl (32-36); Mean Corpuscular Hemoglobin 28.7 pg (26-34); Mean Corpuscular Volume 92.3 fl (80-100); Mean Platelet Volume 8.4 fl (7.4-10.4); Monocytes Absolute Auto 0.2 K/mm3 (0.1-0.6); Monocytes Percent Auto 3.6 % (2.6-8.5); Neutrophils Percent Auto 93.6 % (45.5-73.1); Platelet Count Result 648 k/mm3 (150-375); Red Blood Count 4.04 M/mm3 (4.2-5.4); Red Cell Distribution Width 13.5 % (11.5-14.5); White Blood Count 6.4 K/mm3 (4.5-10.0)
[2021-01-18 09:00] LABS: Blood Urea Nitrogen 9 mg/dL (7-17); Calcium 8.3 mg/dL (8.4-10.2); Carbon Dioxide > 40 mmol/L (22-30); Chloride 92 mmol/L (98-107); Estimated CRCL calculation 105 ml/min; Estimated Glomerular Filt Rate > 60; Glucose 122 mg/dL (65-105); Potassium 3.8 mmol/L (3.4-5.0); Sodium 136 mmol/L (137-145)
--- NOTE | 2021-01-18 11:34 | PM.DS ---
DS: Admitting Diagnosis Admitting Diagnosis Admitting Diagnosis: (1) Acute exacerbation of chronic obstructive pulmonary disease: (2) Anxiety: (3) Protein-calorie malnutrition, severe: (4) Alcohol abuse: (5) COPD with emphysema: (6) Pneumothorax on left: (7) Atrial fibrillation: (8) Generalized anxiety disorder with panic attacks: (9) Lung infiltrate: DS: Discharge Diagnosis Discharge Diagnosis (1) Lung infiltrate: Code(s): R91.8 - Other nonspecific abnormal finding of lung field Status: Acute Assessment and Plan: Patient will complete course of levofloxacin in the outpatient setting (2) Acute exacerbation of chronic obstructive pulmonary disease: Code(s): J44.1 - Chronic obstructive pulmonary disease with (acute) exacerbation Status: Acute Assessment and Plan: improved tapering course of prednisone continue usual meds (3) Acute hypercapnic respiratory failure: Code(s): J96.02 - Acute respiratory failure with hypercapnia Status: Acute Assessment and Plan: patient is a chronic CO2 retainer on supplemental oxygen at home (4) Protein-calorie malnutrition, severe: Code(s): E43 - Unspecified severe protein-calorie malnutrition Status: Acute Assessment and Plan: follow-up in the outpatient setting (5) Alcohol abuse: Code(s): F10.10 - Alcohol abuse, uncomplicated Status: Acute Assessment and Plan: encouraged about alcohol cessation follow-up in the outpatient setting (6) Generalized anxiety disorder with panic attacks: Code(s): F41.1 - Generalized anxiety disorder; F41.0 - Panic disorder [episodic paroxysmal anxiety] Status: Acute Assessment and Plan: continue Xanax follow-up in outpatient setting DS: Summary Hospital Course Reason for hospitalization: shortness of breath Hospital Course: This is a 55-year-old female with past medical history significant for COPD, chronic CO2 retainer, on supplemental home oxygen at home, trilogy at nighttime, alcohol dependence, tobacco dependence, protein calorie malnutrition. patient was admitted to the hospital due to COPD exacerbation. she was found to have diffuse lung infiltrates for which he was treated with ceftriaxone and Zithromax. she was treated with systemic steroids as well and participated with PT OT in therapy. she has done well and will be discharged home with home health consults obtained: no consults procedures: no procedures Time Spent with Patient Time attestation: Total time spent providing and/or coordinating discharge services: Exam Narrative: Exam Narrative: patient is sitting in bed in no acute distress Const: General: comfortable, no acute distress, well developed, alert, awake and other ( chronically ill looking) Nutritional Appearance: underweight Orientation/consciousness: patient oriented x3 HENMT: Head: normal to inspection, normocephalic and atraumatic Ears: hearing grossly normal bilaterally Face and sinus: normal facial exam Eyes: General: appearance normal, both eyes and all related structures Pupils: Equal, round and reactive pupils present EOM: EOMs intact bilaterally Neck: Neck: full ROM, no lymphadenopathy and no JVD Thyroid: thyroid normal Lymphatic: no lymphadenopathy noted Resp: Effort & Inspection: normal respiratory effort and able to speak in complete sentences Auscultation: clear to auscultation bilaterally and diminished lung sounds Cardio: Jugular venous distension: no JVD Rate: regular rate Rhythm: regular rhythm Heart sounds: S1 normal heart sound present and S2 normal heart sound present GI: GI Palp: Yes Soft to palpation and Yes No hepatosplenomegaly present : General: Yes deferred Skin: Rashes: no rashes Wounds: no wounds Neuro: General: patient oriented x3 and CN's II-XI intact bilaterall
[2021-01-18] MEDS: ALPRAZolam (*CRX) 0.5 MG TABLET PO (14:21)
== END 2021-01-18 16:05 | disposition home or self-care (01) | DRG 190 ==
LOC: ANHED 22:54 → ANH3MEDSUR 01-15 07:31
PROVIDERS: Admitting Provider Internal Medicine; Emergency Provider Family Medicine; PCP Family Medicine; Visit Provider Internal Medicine
DX: J43.9 Emphysema, unspecified (principal); E43 Unspecified severe protein-calorie malnutrition; J96.22 Acute and chronic respiratory failure with hypercapnia; J96.21 Acute and chronic respiratory failure with hypoxia; Z68.1 Body mass index [BMI] 19.9 or less, adult; J93.9 Pneumothorax, unspecified; R91.8 Other nonspecific abnormal finding of lung field; F41.1 Generalized anxiety disorder; F41.0 Panic disorder [episodic paroxysmal anxiety]; F10.20 Alcohol dependence, uncomplicated; D51.9 Vitamin B12 deficiency anemia, unspecified; K21.9 Gastro-esophageal reflux disease without esophagitis; F17.210 Nicotine dependence, cigarettes, uncomplicated; Z99.81 Dependence on supplemental oxygen
CPT/HCPCS: 36415; 36600; 71046; 80048; 80053; 82805; 83880; 84484; 85025; 87040; 93005; 94640; 99285; A9270; J0456; J0696; J2060; J2930; J7030; J7040

== ENCOUNTER 2021-02-07 19:56 | Observation (INO) | payer MEDICARE, MEDICAID, SELFPAY ==
--- NOTE | ~2021-02-07 | XR_ITS ---
XR chest 1V portable 02/07/2021 20:57 Indication: Shortness of breath. COPD. Asthma. Procedure: AP portable chest Comparison: Comparison to multiple prior studies sequentially, with oldest reviewed study dated 01/2021. Findings: There are patchy bilateral infiltrates superimposed on a background of emphysema and chroni c pulmonary fibrosis. Small pleural effusions. There are extensive surgical changes in the upper lung s bilaterally. Impression: 1: Patchy bilateral infiltrates, compatible with pneumonia, likely superimposed on a background of em physema and fibrosis appear Reviewed, dictated and finalized at location A. Impression: 1: Patchy bilateral infiltrates, compatible with pneumonia, likely superimposed on a background of emphysema and fibrosis appear
[2021-02-07 19:59] VITALS: BP 119/69; PULSE 110; RESP 28; TEMP 36.9; O2SAT 93
--- NOTE | 2021-02-07 20:10 | ED.GENADULT ---
HPI - General Adult General Chief complaint: Recheck/Abnormal Lab/Rx Stated complaint: sob Time Seen by Provider: 02/07/21 19:59 Source: patient History of Present Illness HPI narrative: Patient is a 55 y/o female brought in by EMS for low sat. Patient states that her pulse ox was in 80s when her son checked at home and her son called EMS. She states that she has chronic SOB due to COPD and she is on 3L O2 via NC at home. She denies increasing SOB. She has no pain. Related Data Home Medications Medication Instructions Recorded Confirmed montelukast 10 mg PO HS 10/19/19 01/15/21 omeprazole 20 mg PO DAILY 10/19/19 01/15/21 escitalopram oxalate 10 mg PO DAILY 11/15/19 01/15/21 Incruse Ellipta 1 inh INHALATION DAILY 01/15/21 01/15/21 albuterol sulfate 2 puff INHALATION Q4H PRN 01/15/21 01/15/21 alprazolam 0.5 mg PO Q6H PRN 01/15/21 01/15/21 fluticasone propion-salmeterol 1 inh INHALATION Q12H 01/15/21 01/15/21 [Advair Diskus] Allergies Allergy/AdvReac Type Severity Reaction Status Date / Time clindamycin Allergy Severe anaphylactic Verified 02/07/21 20:28 reaction, rash clarithromycin [From Biaxin] Allergy Hives Verified 02/07/21 20:28 Review of Systems Constitutional: Constitutional: Denies chills, Denies fever(s), Denies headache(s) and Denies weakness Eyes: Eyes: Denies blurry vision ENT: Denies headache(s) and Denies neck pain Cardiovascular: Cardiovascular: Denies chest pain and Reports dyspnea Respiratory: Respiratory: Denies cough and Reports dyspnea Gastrointestinal: Gastrointestinal: Denies abdominal pain, Denies diarrhea, Denies nausea and Denies vomiting Genitourinary: Genitourinary: Denies hematuria and Denies dysuria Musculoskeletal: Musculoskeletal: Denies back pain and Denies neck pain Neurologic: Denies headache(s) and Denies weakness PMFSH Past Medical History Medical History Abnormal EKG EKG has previously shown ST elevation which appears to be early repolarization. Alcohol abuse Anorexia Anxiety Asthma B12 deficiency anemia Chronic anemia Chronic respiratory failure with hypoxia and hypercapnia COPD with emphysema Gastroesophageal reflux disease Generalized anxiety disorder with panic attacks Spontaneous pneumothorax (~08/2012) Several pneumothoraces status post VATS procedure and apical blebectomy as well as pleurodesis. Tobacco abuse Vitamin D deficiency Surgical History Surgical History History of bilateral tubal ligation History of History of hip surgery (~07/2019) ORIF of right hip fracture. History of tonsillectomy Status post thoracotomy Left-sided VATS procedure and apical bleb resection with pleurodesis. Family History Family History Father Acute myocardial infarction Father No problems noted. Unknown No problems noted. Mother No problems noted. Sibling No problems noted. Social History Social History Social History: The patient lives with her 17-year-old son in [place]. She has 2 other sons who are grown out of the home. 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 She smoked as many as 2 packs of cigarettes per day and tells me she now smokes maybe a half a pack a day. She is not forthcoming with the amount of alcohol she uses, but tells me she drinks several times a week, maybe 3 or 4 beers at a time, maybe heavier on the weekends. She denies illicit substance use. Her brother Manish Gardner is her surrogate decision maker and she wishes to be a full code. Smoking packs per day: 1.5 Smoking cigarettes per day: 30.0 Years smoked: 35 Smoking pack-years: 52.50 Smoking status: Former smoker Tobacco type: cigarettes Second hand tobacco smoke exposure: No Smo
[2021-02-07 20:31] LABS: Alveolar/Arterial O2 Gradient 71.1 mmHg; Base Excess ABG 17.4 mEq/l (+/-2.0); Fractional Inspired Oxygen 32 %; HCO3 ABG 47.1 mEq/l (22.0-26.0); Oxygen Content ABG 15.2 %vol (16.0-22.0); PO2 ABG 55.6 mmHg (80.0-100.0); PO2 FiO2 Ratio Arterial Blood 1.74 %; Total Hemoglobin 12.6 g/dL (12.0-18.0); pH ABG 7.353 (7.350-7.450)
[2021-02-07 20:32] LABS: PCO2 ABG 86.7 mmHg (35.0-45.0)
[2021-02-07 20:33] LABS: Device NASAL CANNULA; Oxygen Saturation ABG 85.5 % (95.0-100.0); Site Drawn LEFT BRACHIAL
[2021-02-07 20:47] LABS: Basophils Percent Auto 0.3 % (0.2-1.2); Eosinophils Absolute Auto 0.3 K/mm3 (0-0.3); Eosinophils Percent Auto 3.4 % (0-4.4); Hematocrit 40.1 % (37.0-47.0); Hemoglobin 11.6 g/dL (12.0-15.0); Immature Granulocyte Absolute 0.03 K/mm3 (0.00-0.031); Immature Granulocyte Percent A 0.4 % (0-0.5); Lymphocytes Absolute Auto 0.56 K/mm3 (0.9-3.2); Lymphocytes Percent Auto 7.6 % (18.3-44.2); Mean Corpuscular HGB Conc 28.9 g/dl (32-36); Mean Corpuscular Hemoglobin 27.6 pg (26-34); Mean Corpuscular Volume 95.5 fl (80-100); Monocytes Absolute Auto 0.4 K/mm3 (0.1-0.6); Neutrophils Absolute Auto 6.2 K/mm3 (1.3-6.7); Neutrophils Percent Auto 83.3 % (45.5-73.1); Platelet Count Result 339 k/mm3 (150-375); Red Cell Distribution Width 14.2 % (11.5-14.5); White Blood Count 7.4 K/mm3 (4.5-10.0)
[2021-02-07 20:54] LABS: Hypochromasia 1+ (NORMAL); Platelet Estimate Adequate (Adequate)
[2021-02-07 21:04] LABS: Alanine Aminotransferase 10 U/L (4-35); Albumin Level 3.5 g/dL (3.5-5.1); Alkaline Phosphatase 88 U/L (38-126); Aspartate Amino Transferase 26 U/L (14-36); Bilirubin,Total 0.2 mg/dL (0.2-1.3); Blood Urea Nitrogen 3 mg/dL (7-17); Carbon Dioxide > 40 mmol/L (22-30); Chloride 82 mmol/L (98-107); Estimated CRCL calculation 103 ml/min; Estimated Glomerular Filt Rate > 60; Glucose 134 mg/dL (65-105); Sodium 135 mmol/L (137-145)
[2021-02-07] MEDS: methylPREDNISolone SOD SUCC 40 MG VIAL IV PUSH (21:07)
[2021-02-07] MEDS: IPRATROPIUM BR 0.02% INH SOLN 0.5 MG/2.5 ML VIAL INHALATION (21:18)
[2021-02-07] MEDS: ALBUTEROL SULFATE NEB 2.5 MG/0.5 ML INH INHALATION (21:18)
[2021-02-07 21:20] VITALS: PULSE 116; RESP 16
[2021-02-07 21:27] VITALS: PULSE 117; RESP 23
--- NOTE | 2021-02-07 22:06 | ECG_ITS ---
Measurements Intervals [place] Rate: 119 P: 86 NE: 112 QRS: -27 QRSD: 71 T: 83 QT: 314 QTc: 442 Interpretive Statements SINUS TACHYCARDIA MINIMAL Q WAVES- ANTEROLATERAL LEADS INFERIOR INFARCT, AGE INDETERMINATE BASELINE ARTIFACT- I, AVR ABNORMAL ECG Electronically Signed On 02-08-2021 7:00:34 CDT by Quinton Bell D.O.
[2021-02-07 22:44] VITALS: BP 95/56; PULSE 126; RESP 18; O2SAT 99
[2021-02-07] MEDS: levoFLOXacin 500 MG/D5W 100 ML 500 MG/100 ML BAG 100 MG IVPB (22:44)
[2021-02-07] MEDS: POTASSIUM CHLORIDE 20 MEQ TABLET 40 MEQ PO (22:44)
[2021-02-08] VITALS (17 sets, daily range): BP systolic 92–148; BP diastolic 50–93; PULSE 42–129; RESP 18–20; TEMP 36.3–36.9; O2SAT 87–100; BMI 14.5
--- NOTE | 2021-02-08 02:10 | ADMGEN ---
This patient, Esther Brink, was admitted to [facility] Room 317-02. Patient/family oriented to hospital policies and general routines including ID bracelet, bed and alarms, visiting hours, pain management, procedures, bathroom and other care routines, personal items, smoking policy, room service/diet, and visiting hours. Information on how to activate the Rapid Response Team has been discussed. Patient/Family are encouraged to report perceived risks to care and to ask questions if they do not understand what they are told or what they should do.
[2021-02-08 04:57] LABS: Blood Urea Nitrogen 3 mg/dL (7-17); Carbon Dioxide > 40 mmol/L (22-30); Chloride 89 mmol/L (98-107); Estimated CRCL calculation 89 ml/min; Estimated Glomerular Filt Rate > 60; Glucose 179 mg/dL (65-105); Potassium 4.4 mmol/L (3.4-5.0); Sodium 135 mmol/L (137-145)
[2021-02-08 07:57] LABS: Basophils Percent Auto 0.1 % (0.2-1.2); Hematocrit 38.1 % (37.0-47.0); Hemoglobin 11.1 g/dL (12.0-15.0); Immature Granulocyte Absolute 0.02 K/mm3 (0.00-0.031); Immature Granulocyte Percent A 0.3 % (0-0.5); Lymphocytes Absolute Auto 0.12 K/mm3 (0.9-3.2); Lymphocytes Percent Auto 1.7 % (18.3-44.2); Mean Corpuscular HGB Conc 29.1 g/dl (32-36); Mean Corpuscular Hemoglobin 28.1 pg (26-34); Mean Corpuscular Volume 96.5 fl (80-100); Mean Platelet Volume 8.8 fl (7.4-10.4); Monocytes Percent Auto 0.6 % (2.6-8.5); Neutrophils Absolute Auto 6.7 K/mm3 (1.3-6.7); Neutrophils Percent Auto 97.3 % (45.5-73.1); Platelet Count Result 393 k/mm3 (150-375); Red Blood Count 3.95 M/mm3 (4.2-5.4); Red Cell Distribution Width 14.2 % (11.5-14.5); White Blood Count 6.9 K/mm3 (4.5-10.0)
--- NOTE | 2021-02-08 09:57 | PM.IMHP ---
H&P: HPI History of Present Illness Date/Time: 02/08/21 09:57 Chief Complaint: Low oxygen saturations, increased SOB x 2 days Narrative: Esther Brink is a 54-year-old female former smoker with chronic respiratory failure and severe COPD/emphysema, anorexia, anxiety, and recent hospitalization a few weeks ago (d/c 01/18) for COPD exacerbation and pneumonia who presented to the emergency department on 02/07 via EMS from home for evaluation of shortness of breath and reports of low oxygen saturations into the 80s for 2 days. Patient reports that she was feeling a bit more SOB than her usual for 2 days prior to arrival and having some subjective fevers/chills on day of arrival. Her son checked her O2 saturations and noted it to be in the 80s. She denies changes in her chronic cough with clear sputum. She had no other symptoms surrounding presentation to hospital. Her SOB has improved since admission and she notes she is back to her home 3L O2 today. Overall feels better today. Currently, she denies f/c/s, dizziness, lightheadedness, pleuritic cp/palpitations, n/v/d/c, abd pain, changes in BMs, dysuria, hematuria, cloudy urine, calf pain/swelling. While in the ED, CXR performed and revealed patchy bilateral infiltrates, compatible with pneumonia, likely superimposed on a background of emphysema and fibrosis appear , normal D-dimer, no leukocytosis, afebrile, HR of 110, RR of 28, sats of 94% on 4L. Patient was given IV Levaquin for suspected pneumonia, IV Solumedrol for COPD exacerbation/acute on chronic respiratory failure, and was admitted to the medical floor under this setting. Review of Systems Review of Systems: All systems reviewed & are unremarkable except as noted in HPI and below PMFSH Past Medical History Medical History Abnormal EKG EKG has previously shown ST elevation which appears to be early repolarization. Alcohol abuse Anorexia Anxiety Asthma B12 deficiency anemia Chronic anemia Chronic respiratory failure with hypoxia and hypercapnia COPD with emphysema Gastroesophageal reflux disease Generalized anxiety disorder with panic attacks Spontaneous pneumothorax (~08/2012) Several pneumothoraces status post VATS procedure and apical blebectomy as well as pleurodesis. Tobacco abuse Vitamin D deficiency Surgical History Surgical History History of bilateral tubal ligation History of History of hip surgery (~07/2019) ORIF of right hip fracture. History of tonsillectomy Status post thoracotomy Left-sided VATS procedure and apical bleb resection with pleurodesis. Family History Family History Father Acute myocardial infarction Father No problems noted. Unknown No problems noted. Mother No problems noted. Sibling No problems noted. Social History Social History Social History: The patient lives with her 17-year-old son in [place]. She has 2 other sons who are grown out of the home. 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 She is a former smoker but cannot tell me when she quit smoking cigarettes. She smoked as many as 2 packs of cigarettes per day. She has significantly cut back in her drinking, noting she does not think she had a drink since last admission 01/18/21. She denies illicit substance use. Her brother Manish Gardner is her surrogate decision maker and she wishes to be a full code. Smoking packs per day: 1.5 Smoking cigarettes per day: 30.0 Years smoked: 35 Smoking pack-years: 52.50 Smoking status: Former smoker Tobacco type: cigarettes Second hand tobacco smoke exposure: No Smoking end date: 03/19/20 Additional smoking assessment comments: Patient states she no longer smokes but can't say when she quit
[2021-02-08] MEDS: ESCITALOPRAM OXALATE 10 MG TABLET 20 MG PO (09:59)
[2021-02-08] MEDS: busPIRone HCL 5 MG TABLET PO ×2 (09:59→19:53)
[2021-02-08] MEDS: busPIRone HCL 2.5 MG TABLET PO ×2 (09:59→19:52)
[2021-02-08] MEDS: chlordiazePOXIDE (*CRX) 25 MG CAPSULE PO (09:59)
[2021-02-08] MEDS: methylPREDNISolone SOD SUCC 40 MG VIAL IV PUSH ×2 (10:00→17:33)
[2021-02-08] MEDS: ENOXAPARIN 40 MG/0.4 ML SYRINGE SUB-Q (10:00)
[2021-02-08] MEDS: ALBUTEROL SULFATE (*SP) INHALER 2 PUFF INHALATION (10:58)
[2021-02-08] MEDS: ALPRAZolam (*CRX) 0.5 MG TABLET PO ×2 (11:18→17:33)
[2021-02-08] MEDS: guaiFENesin 12 HR 600 MG TABCR PO ×2 (11:18→19:52)
[2021-02-08] MEDS: UMECLIDINIUM BROMIDE 62.5 MCG ELLIPTA 1 PUFF INHALATION (11:19)
--- NOTE | 2021-02-08 14:46 | PCNSR ---
On 02/08/21, the student, Niesha Dash, provided care and completed [facility] documentation on this patient. I have reviewed the student's documentation and agree with the findings.
--- NOTE | 2021-02-08 14:58 | PCRCNOTE ---
Home O2 Eval done. No additional O2 needs. #l rest and $l activity. Pt has Home o2 with [facility] [place], Pt has portable O2 as well and concentrator. Pt has Trilogy unit. Pt has just recently had the trilogy unit checked by a Respiratory Therapist from [facility] [place]. Unit is in good working order. All supplies are in good working order. Pt however hasnt been wearing trilogy. She has been told that if she doesnt wear it she will not be able to keep the machine due to the lack of use, it cant be billed to insurance.
[2021-02-08] MEDS: MIRTAZAPINE 30 MG TABLET PO (19:52)
[2021-02-08] MEDS: FLUTICASONE/SALMETEROL 115-21 MCG (*SP) INHALER 2 PUFF INHALATION (19:55)
[2021-02-08 21:01] LABS: SARS-CoV-2 RNA PCR Negative
[2021-02-09] MEDS: ALPRAZolam (*CRX) 0.5 MG TABLET PO (04:49)
[2021-02-09 05:59] LABS: Hematocrit 34.1 % (37.0-47.0); Hemoglobin 10.1 g/dL (12.0-15.0); Mean Corpuscular HGB Conc 29.6 g/dl (32-36); Mean Corpuscular Hemoglobin 27.9 pg (26-34); Mean Corpuscular Volume 94.2 fl (80-100); Mean Platelet Volume 8.6 fl (7.4-10.4); Platelet Count Result 448 k/mm3 (150-375); Red Blood Count 3.62 M/mm3 (4.2-5.4); White Blood Count 9.2 K/mm3 (4.5-10.0)
[2021-02-09 06:00] VITALS: BP 98/47; PULSE 74; RESP 18; TEMP 36.2; O2SAT 98
[2021-02-09 06:24] LABS: Blood Urea Nitrogen 8 mg/dL (7-17); Calcium 8.2 mg/dL (8.4-10.2); Carbon Dioxide > 40 mmol/L (22-30); Chloride 89 mmol/L (98-107); Estimated CRCL calculation 89 ml/min; Estimated Glomerular Filt Rate > 60; Glucose 199 mg/dL (65-105); Magnesium 2.2 mg/dL (1.6-2.3); Potassium 3.4 mmol/L (3.4-5.0); Sodium 138 mmol/L (137-145)
--- NOTE | 2021-02-09 08:33 | PM.DS ---
DS: Admitting Diagnosis Admitting Diagnosis Admitting Diagnosis: Acute on chronic respiratory failure with hypoxia and hypercapnia, acute exacerbation of COPD, lung infiltrate, COVID PUI DS: Discharge Diagnosis Discharge Diagnosis (1) Acute on chronic respiratory failure with hypoxia and hypercapnia: Code(s): J96.21 - Acute and chronic respiratory failure with hypoxia; J96.22 - Acute and chronic respiratory failure with hypercapnia Status: Acute Assessment and Plan: ABG similar to previous hospital stays. Requiring 4L on arrival. Likely secondary to COPD exacerbation. CXR with lung infiltrates, however, patient recently treated for pneumonia last hospital stay earlier this month and suspect this may be residual findings. PE felt to be less likely as d-dimer normal without pleuritic chest pain; patients tachycardia has improved since admission. Patient feels much better today; SOB much improved. Now on home O2 requirements of 3L. In the ED, she was given IV solumedrol and neb treatment for COPD exacerbation and IV levaquin for suspected pneumonia Continue treatment as below Wean O2 to maintain saturations in low 90s Home O2 Evaluation rec 3L with rest, 4L with activity this stay f/u with PCP Rec Pulm referral; Dr. Tavares on-call and his information provided (2) Acute exacerbation of chronic obstructive pulmonary disease: Code(s): J44.1 - Chronic obstructive pulmonary disease with (acute) exacerbation Status: Acute Assessment and Plan: Likely mild COPD exacerbation. SOB and O2 requirements improved. Minimal crackles in bases sounds on exam today. Transition to PO prednisone 30 mg; will do 5 day burst PEP CPT Mucinex to mobilize secretions Home O2 evaluation as above Home medications F/u with PCP and Pulm referral (3) Lung infiltrate: Code(s): R91.8 - Other nonspecific abnormal finding of lung field Status: Acute Assessment and Plan: Personally reviewed films from this stay and previous hospital visits, and appears to be persistent infiltrates. I suspect these are residual findings from prior pneumonia which was appropriately treated earlier this month with antibiotics. Other than subjective fevers for 1 day and increased SOB, there are no other indications she has an active bacterial pneumonia at this time as WBC normal, patient afebrile, and cough with clear sputum production that has not changed. IV levaquin in the ED and BCx drawn and are showing NGTD x 2 after 2 days, preliminary No abx Follow BCx F/u CXR ordered (4) Anxiety: Code(s): F41.9 - Anxiety disorder, unspecified Status: Acute Assessment and Plan: No acute issues. Patient requesting refill of xanax; appears refill was given on 02/04 for 30 days with 1 refill on [employer] Continue home medications (5) Protein-calorie malnutrition, severe: Code(s): E43 - Unspecified severe protein-calorie malnutrition Status: Acute Assessment and Plan: Diet supplementations Regular diet (6) Alcohol abuse: Code(s): F10.10 - Alcohol abuse, uncomplicated Status: Acute Assessment and Plan: Patient reports significantly reduced alcohol intake and does not think she has had alcohol since last admission (7) Suspected 2019 novel coronavirus infection: Code(s): Z20.828 - Contact with and (suspected) exposure to other viral communicable diseases Status: Ruled-out Assessment and Plan: Due to respiratory symptoms, patient swabbed for COVID in ED. This was felt to be less likely. Patient placed on isolation. COVID swab returned negative. F/u with PCP DS: Summary Hospital Course Reason for hospitalization:
[2021-02-09] MEDS: FLUTICASONE/SALMETEROL 115-21 MCG (*SP) INHALER 2 PUFF INHALATION (08:50)
[2021-02-09] MEDS: POTASSIUM CHLORIDE 20 MEQ PACKET (FOR LIQUID) PO (08:50)
[2021-02-09] MEDS: busPIRone HCL 2.5 MG TABLET PO (08:51)
[2021-02-09] MEDS: guaiFENesin 12 HR 600 MG TABCR PO (08:51)
[2021-02-09] MEDS: busPIRone HCL 5 MG TABLET PO (08:52)
[2021-02-09] MEDS: ESCITALOPRAM OXALATE 10 MG TABLET 20 MG PO (08:52)
[2021-02-09] MEDS: UMECLIDINIUM BROMIDE 62.5 MCG ELLIPTA 1 PUFF INHALATION (08:53)
[2021-02-09] MEDS: predniSONE 20 MG, predniSONE 10 MG 30 MG PO (09:18)
[2021-02-09 09:50] VITALS: O2SAT 98
--- NOTE | 2021-02-19 09:10 | PC.NURSE ---
Blood cx are negative.
== END 2021-02-09 12:10 | disposition home or self-care (01) ==
LOC: ANHED 20:16 → ANH3MEDSUR 02-08 00:06
PROVIDERS: Physician Assistant; Admitting Provider Family Medicine; Emergency Provider Emergency Medicine; PCP Family Medicine; Visit Provider Family Medicine
DX: J96.21 Acute and chronic respiratory failure with hypoxia (principal); J96.22 Acute and chronic respiratory failure with hypercapnia; J44.1 Chronic obstructive pulmonary disease with (acute) exacerbation; F41.1 Generalized anxiety disorder; R91.8 Other nonspecific abnormal finding of lung field; E43 Unspecified severe protein-calorie malnutrition; Z68.1 Body mass index [BMI] 19.9 or less, adult; Z99.81 Dependence on supplemental oxygen; D51.3 Other dietary vitamin B12 deficiency anemia; E55.9 Vitamin D deficiency, unspecified; K21.9 Gastro-esophageal reflux disease without esophagitis; F10.10 Alcohol abuse, uncomplicated; Z79.51 Long term (current) use of inhaled steroids; Z87.891 Personal history of nicotine dependence; Z20.822 Contact with and (suspected) exposure to COVID-19
CPT/HCPCS: 36415; 36600; 71045; 80048; 80053; 82805; 83735; 85025; 85027; 85380; 87040; 93005; 94640; 94667; 96365; 96372; 96375; 96376; 99291; A9270; C9803; G0378; J1650; J1956; J2920; J7512; U0003; U0005

== ENCOUNTER 2021-03-12 15:16 | Emergency (ER) | payer MEDICARE, MEDICAID, SELFPAY ==
--- NOTE | ~2021-03-12 | XR_ITS ---
EXAMINATION: XR wrist RT min 3V DATE: 03/12/2021 15:49 INDICATION: Right wrist injury and pain. TECHNIQUE: 4 views of right wrist were obtained. COMPARISON: None. FINDINGS: Bone alignment is normal. No acute fracture. There is an old healed fracture of diaphysis o f fifth metacarpal. Osteopenia is noted. Joint spaces are normal. IMPRESSION: 1. No acute fracture. Reviewed, dictated and finalized at location B. IMPRESSION: 1. No acute fracture.
[2021-03-12 15:35] VITALS: BP 88/51; PULSE 107; RESP 20; TEMP 36.3; O2SAT 100
--- NOTE | 2021-03-12 16:02 | PC.NURSE ---
pt asks that clindamycing and clarithromycin be removed from allergies. states that she has no drug allergies and does not recall ever having anaphylaxis or hives or rash. allergies removed per pt request
--- NOTE | 2021-03-12 16:16 | ED.UPPEXIN ---
HPI - Extremity Injury (Upper) General Chief Complaint: Extremity Injury, Upper Stated Complaint: Fall/R Wrist Injury Time Seen by Provider: 03/12/21 15:59 Source: patient Mode of arrival: ambulatory Limitations: no limitations History of Present Illness HPI narrative: Patient is a 55 year old female who presents with complaints of right wrist pain. She reports tripping over dog and falling and hitting wrist. She denies dizziness prior to fall. She denies all other complaints at this time. Patient denies taking otc meds prior to arrival in ED. Patient has complex medical history. Related Data Home Medications Medication Instructions Recorded Confirmed escitalopram oxalate 20 mg PO DAILY 11/15/19 02/08/21 Incruse Ellipta 1 inh INHALATION DAILY 01/15/21 02/08/21 albuterol sulfate 2 puff INHALATION Q4H PRN 01/15/21 02/08/21 alprazolam 0.5 mg PO Q6H PRN 01/15/21 02/08/21 fluticasone propion-salmeterol 1 inh INHALATION Q12H 01/15/21 02/08/21 [Advair Diskus] buspirone 7.5 mg PO BID 02/08/21 02/08/21 mirtazapine 30 mg PO HS 02/08/21 02/08/21 Allergies Allergy/AdvReac Type Severity Reaction Status Date / Time No Known Allergies Allergy Verified 03/12/21 16:02 Review of Systems Review of Systems: Narrative: CONSTITUTIONAL: Denies fever, chills, or sweats. EYES: Denies visual changes, redness, or discharge. ENT: Denies rhinorrhea, congestion, sore throat, or otalgia. CARDIOVASCULAR: Denies chest pain, palpitations, or edema. RESPIRATORY: Denies cough or dyspnea. GASTROINTESTINAL: Denies abdominal pain, nausea, vomiting, or diarrhea. GENITOURINARY: Denies dysuria or hematuria. SKIN: Denies rash or itching. MUSCULOSKELETAL: Reports right wrist pain NEUROLOGIC: Denies headache, numbness, dizziness, or weakness. PSYCHIATRIC: Denies anxiety or depression. [facility] Past Medical History Medical History Abnormal EKG EKG has previously shown ST elevation which appears to be early repolarization. Alcohol abuse Anorexia Anxiety Asthma B12 deficiency anemia Chronic anemia Chronic respiratory failure with hypoxia and hypercapnia COPD with emphysema Gastroesophageal reflux disease Generalized anxiety disorder with panic attacks Spontaneous pneumothorax (~08/2012) Several pneumothoraces status post VATS procedure and apical blebectomy as well as pleurodesis. Tobacco abuse Vitamin D deficiency Surgical History Surgical History History of bilateral tubal ligation History of History of hip surgery (~07/2019) ORIF of right hip fracture. History of tonsillectomy Status post thoracotomy Left-sided VATS procedure and apical bleb resection with pleurodesis. Family History Family History Father Acute myocardial infarction Father No problems noted. Unknown No problems noted. Mother No problems noted. Sibling No problems noted. Social History Social History (Updated 02/08/21 @ 10:30 by Willy Singh PA-C) Social History: The patient lives with her 17-year-old son in [place]. She has 2 other sons who are grown out of the home. 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 She is a former smoker but cannot tell me when she quit smoking cigarettes. She smoked as many as 2 packs of cigarettes per day. She has significantly cut back in her drinking, noting she does not think she had a drink since last admission 01/18/21. She denies illicit substance use. Her brother Mansih Gardner is her surrogate decision maker and she wishes to be a full code. Smoking packs per day: 1.5 Smoking cigarettes per day: 30.0 Years smoked: 35 Smoking pack-years: 52.50 Smoking status: Former smoker Tobacco type: cigarettes Second hand tobacco smoke exposure: No Smoking end date: 03/19/20 Additional smoking
[2021-03-12] MEDS: TETANUS,DIPHTHERIA,AC PERTUSSIS ADULT (0.5 ML) BOOSTRIX IM (16:20)
== END 2021-03-12 16:45 | disposition home or self-care (01) ==
PROVIDERS: Emergency Provider Nurse Practitioner; PCP Family Medicine
DX: S63.501A Unspecified sprain of right wrist, initial encounter (principal); S66.911A Strain of unspecified muscle, fascia and tendon at wrist and hand level, right hand, initial encounter; S61.511A Laceration without foreign body of right wrist, initial encounter; Z23 Encounter for immunization; J45.909 Unspecified asthma, uncomplicated; J96.11 Chronic respiratory failure with hypoxia; J96.12 Chronic respiratory failure with hypercapnia; J43.9 Emphysema, unspecified; K21.9 Gastro-esophageal reflux disease without esophagitis; F41.1 Generalized anxiety disorder; D51.9 Vitamin B12 deficiency anemia, unspecified; E55.9 Vitamin D deficiency, unspecified; Z87.891 Personal history of nicotine dependence; W01.0XXA Fall on same level from slipping, tripping and stumbling without subsequent striking against object, initial encounter
CPT/HCPCS: 73110; 90471; 90715; 99283

== ENCOUNTER 2021-04-10 09:22 | Inpatient (IN) | payer MEDICARE, MEDICAID, SELFPAY ==
[2021-04-10] VITALS (11 sets, daily range): BP systolic 85–137; BP diastolic 50–87; PULSE 81–118; RESP 16–22; TEMP 36.8–36.9; O2SAT 93–100; BMI 17.6
--- NOTE | ~2021-04-10 | CT_ITS ---
EXAMINATION: CT diagnostic chest w con DATE: 04/10/2021 12:02 INDICATION: Lymphadenopathy TECHNIQUE: Transaxial computed tomographic images of the chest were obtained after the administration of 75 cc of Omnipaque 350 intravenous contrast. The dose-length product (DLP) was 117.56 mGy-cm. Ite rative reconstruction was used. COMPARISON: 03/10/2020 FINDINGS: Surgical changes are noted in the lung apices. There is severe emphysema. Areas of scarring are present in the lower lobes. There is no pleural effusion or pneumothorax. No focal airspace opac ity is identified. No pathologically enlarged thoracic lymph nodes are identified. The heart size is normal. There is a new burst fracture of the T6 vertebral body. Also noted is a new compression fract ure of T9. IMPRESSION: 1. No lymphadenopathy identified. 2. Severe emphysema. 3. T6 burst fracture and T9 compression fracture, new since the prior examination. Reviewed, dictated and finalized at location A. IMPRESSION: 1. No lymphadenopathy identified. 2. Severe emphysema. 3. T6 burst fracture and T9 compression fracture, new since the prior examinati on.
--- NOTE | ~2021-04-10 | XR_ITS ---
XR chest 1V portable 04/10/2021 09:58 Indication: Confusion Procedure: AP portable chest Comparison: 01/13/2021 Findings: Cardiomegaly. There are emphysematous changes with scarring in the upper lobes. There is an irregular abnormal appearing gas collection overlying the left mid chest wall which may be extrathor acic. Small left pleural effusion. There is prominent soft tissue in the left AP window suspicious fo r lymphadenopathy. Impression: 1: Possible mediastinal lymphadenopathy. Consider correlation with CT chest with contrast. 2: Abnormal irregular shaped gas collection overlying the left mid chest, possibly extrathoracic. Thi s would also be better evaluated with CT. 3: Cardiomegaly. Reviewed, dictated and finalized at location B. Impression: 1: Possible mediastinal lymphadenopathy. Consider correlation with CT chest wit h contrast. 2: Abnormal irregular shaped gas collection overlying the left mid chest, possi giovanny extrathoracic. This would also be better evaluated with CT. 3: Cardiomegaly.
--- NOTE | ~2021-04-10 | CT_ITS ---
EXAMINATION: CT brain wo con INDICATION: Altered mental status and confusion COMPARISON: 08/04/2020 TECHNIQUE: Standard unenhanced head CT. The dose-length product (DLP) was 529.67 mGy-cm. The mA was a djusted according to patient size. Iterative reconstruction technique was employed. FINDINGS: There is no acute intraparenchymal hemorrhage. No evidence of mass lesion. No evidence of a cute infarction. There is mild periventricular and subcortical hypodensity probably related to small vessel ischemic disease. There is mild prominence of the sulci and ventricles related to cerebral atr ophy. Intracranial calcified cerebral atherosclerosis is noted. There are no extra-axial collections. There is no mass effect or midline shift. The orbits and soft tissues are unremarkable. The visualiz ed sinuses and mastoid air cells are well aerated. Again noted is a chronic lytic lesion in the left parietal bone, consistent with a hemangioma. IMPRESSION: 1. No acute intracranial abnormality. 2. Age related findings. Reviewed, dictated and finalized at location A.
--- NOTE | 2021-04-10 09:46 | ECG_ITS ---
Measurements Intervals Council Rate: 89 P: 74 OR: 152 QRS: 66 QRSD: 86 T: 84 QT: 348 QTc: 425 Interpretive Statements SINUS RHYTHM LOW QRS VOLTAGE IN PRECORDIAL LEADS BASELINE WANDER- I, II, III, AVR, AVL, AVF, V4-V6 BORDERLINE ECG Electronically Signed On 04-10-2021 9:58:32 CDT by Quinton Bell D.O.
--- NOTE | 2021-04-10 09:46 | ED.AMS ---
HPI - Altered Mental Status General Chief Complaint: Altered Mental Status Stated Complaint: SOB Time Seen by Provider: 04/10/21 09:41 Source: RN notes reviewed Limitations: altered mental status History of Present Illness HPI narrative: Patient brought to the emergency room because of change of mental status, slumped over, history of COPD on 3 L oxygen, patient had similar symptoms 3 months ago secondary to CO2 retention. Patient laying down in bed comfortable, does not look in pain or distress, no family member or significant other at the bedside. I was able to phone patient's X who brought the patient to the emergency room then left. He told me that patient was a little bit more confused than usual this morning, took her to her family physician who referred her to our emergency room because of the general weakness and confusion. Also is telling me that he visits her once a week and her son Lino is who have the power of contract attorney and who is the one lives with her all the time.. The ex- is not aware of any recent trauma or fall. Related Data Home Medications Medication Instructions Recorded Confirmed escitalopram oxalate 20 mg PO DAILY 11/15/19 02/08/21 Incruse Ellipta 1 inh INHALATION DAILY 01/15/21 02/08/21 albuterol sulfate 2 puff INHALATION Q4H PRN 01/15/21 02/08/21 alprazolam 0.5 mg PO Q6H PRN 01/15/21 02/08/21 fluticasone propion-salmeterol 1 inh INHALATION Q12H 01/15/21 02/08/21 [Advair Diskus] buspirone 7.5 mg PO BID 02/08/21 02/08/21 mirtazapine 30 mg PO HS 02/08/21 02/08/21 Allergies Allergy/AdvReac Type Severity Reaction Status Date / Time No Known Allergies Allergy Verified 04/10/21 09:37 Review of Systems Review of Systems: ROS unobtainable: Yes unobtainable due to medical condition PMFSH Past Medical History Medical History Abnormal EKG EKG has previously shown ST elevation which appears to be early repolarization. Alcohol abuse Anorexia Anxiety Asthma B12 deficiency anemia Chronic anemia Chronic respiratory failure with hypoxia and hypercapnia COPD with emphysema Gastroesophageal reflux disease Generalized anxiety disorder with panic attacks Spontaneous pneumothorax (~08/2012) Several pneumothoraces status post VATS procedure and apical blebectomy as well as pleurodesis. Tobacco abuse Vitamin D deficiency Surgical History Surgical History History of bilateral tubal ligation History of History of hip surgery (~07/2019) ORIF of right hip fracture. History of tonsillectomy Status post thoracotomy Left-sided VATS procedure and apical bleb resection with pleurodesis. Family History Family History Father Acute myocardial infarction Father No problems noted. Unknown No problems noted. Mother No problems noted. Sibling No problems noted. Social History Social History Social History: The patient lives with her 17-year-old son in [place]. She has 2 other sons who are grown out of the home. 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 She is a former smoker but cannot tell me when she quit smoking cigarettes. She smoked as many as 2 packs of cigarettes per day. She has significantly cut back in her drinking, noting she does not think she had a drink since last admission 01/18/21. She denies illicit substance use. Her brother Manish Gardner is her surrogate decision maker and she wishes to be a full code. Smoking packs per day: 1.5 Smoking cigarettes per day: 30.0 Years smoked: 35 Smoking pack-years: 52.50 Smoking status: Former smoker Tobacco type: cigarettes Second hand tobacco smoke exposure: No Smoking end date: 03/19/20 Additional smoking assessment comments: Patient states she no roberto carlos
--- NOTE | 2021-04-10 10:08 | PC.NURSE ---
Dr. Drew at bedside assisting respiratory to obtain ABG
[2021-04-10 10:14] LABS: Alveolar/Arterial O2 Gradient 23.8 mmHg; Fractional Inspired Oxygen 32 %; HCO3 ABG 39.4 mEq/l (22.0-26.0); Oxygen Content ABG 16.4 %vol (16.0-22.0); Oxygen Saturation ABG 98.4 % (95.0-100.0); Oxyhemoglobin 97.4 % THb (90.0-100.0); PCO2 ABG 66.1 mmHg (35.0-45.0); PO2 FiO2 Ratio Arterial Blood 3.97 %; Total Hemoglobin 11.8 g/dL (12.0-18.0); pH ABG 7.393 (7.350-7.450)
[2021-04-10 10:15] LABS: Device NASAL CANNULA; Site Drawn LEFT RADIAL
--- NOTE | 2021-04-10 10:16 | PCRCNOTE ---
DR GODINEZ WAS THE ONE TO OBTAIN ABG ON PT PT. ATTEMPTED ON THE RIGHT AND FAILED AND HE WAS ABLE TO GET ON THE LEFT.
[2021-04-10] MEDS: SODIUM CHLORIDE 0.9% IV 1,000 ML 999 ML IV CONT ×2 (10:36→15:18)
[2021-04-10 11:01] LABS: INR 0.8; Prothrombin Time 11.8 Seconds (11.1-14.7)
[2021-04-10 11:02] LABS: Partial Thromboplastin Time 25.8 SECONDS (22.3-36.8)
[2021-04-10 11:07] LABS: Alanine Aminotransferase 11 U/L (4-35); Albumin Level 3.2 g/dL (3.5-5.1); Alkaline Phosphatase 90 U/L (38-126); Anion Gap 3 mmol/L (8-16); Aspartate Amino Transferase 39 U/L (14-36); Bilirubin,Total 0.5 mg/dL (0.2-1.3); Blood Urea Nitrogen 13 mg/dL (7-17); Calcium 8.7 mg/dL (8.4-10.2); Carbon Dioxide 39 mmol/L (22-30); Chloride 98 mmol/L (98-107); Creatine Kinase 20 U/L (30-135); Estimated Glomerular Filt Rate > 60; Glucose 72 mg/dL (65-105); Sodium 140 mmol/L (137-145)
[2021-04-10 11:13] LABS: Troponin I < 0.012 ng/mL (0.000-0.034)
[2021-04-10 12:05] LABS: Add Urine Microscopic? NO; Appearance Urine Clear (Clear); Bilirubin Urine Negative (Negative); Blood Urine Negative (Negative); Color Urine Straw (Yellow); Glucose Urine UA Negative (Negative); Ketones Urine Negative (Negative); Leukocyte Esterase Ur Negative LEU/UL (Negative); Nitrate Urine Negative (Negative); Protein Urine Negative (Negative); Specific Grav Ur 1.009 (1.001-1.035); Urobilinogen Urine Negative mg/dL (<2.0)
[2021-04-10 12:15] LABS: Amphetamine Screen Urine Negative (Negative); Barbiturate Screen Urine Negative (Negative); Benzodiazepines Screen Urine Positive (Negative); Cannabinoid Screen Urine Negative (Negative); Cocaine Screen Urine Negative (Negative); Methadone Screen Urine Negative (Negative); Opiate Screen Urine Negative (Negative); Phencyclidine Screen Urine Negative (Negative)
--- NOTE | 2021-04-10 13:54 | PC.NURSE ---
Pt more alert, stating she feels cold, tired, and hungry . 100% sats on 3L. Non-labored even respirations
--- NOTE | 2021-04-10 14:53 | PC.NURSE ---
Pt states she falls a lot at home , lives with son Liam [phone].
--- NOTE | 2021-04-10 17:45 | PC.NURSE ---
Pt sitting up on cart eating dinner tray, pt more alert, calm and cooperative. ~98% sats on 3L NC
[2021-04-10] MEDS: IPRATROPIUM BR 0.02% INH SOLN 0.5 MG/2.5 ML VIAL INHALATION (20:35)
[2021-04-10] MEDS: ALBUTEROL SULFATE NEB 2.5 MG/0.5 ML INH 5 MG INHALATION (20:35)
[2021-04-10] MEDS: ONDANSETRON INJ 4 MG/2 ML VIAL IV PUSH (21:40)
[2021-04-10] MEDS: SODIUM CHLORIDE 0.9% IV 1,000 ML 125 ML IV CONT (21:40)
--- NOTE | 2021-04-10 22:27 | ECG_ITS ---
Measurements Intervals [place] Rate: 101 P: 83 SD: 134 QRS: 67 QRSD: 88 T: 79 QT: 344 QTc: 446 Interpretive Statements SINUS TACHYCARDIA BORDERLINE ECG Electronically Signed On 04-11-2021 6:21:48 CDT by Quinton Bell D.O.
[2021-04-11] VITALS (16 sets, daily range): BP systolic 94–131; BP diastolic 62–86; PULSE 84–120; RESP 14–20; TEMP 36.7–37.2; O2SAT 97–100; BMI 17.6
[2021-04-11] MEDS: ALBUTEROL SULFATE NEB 2.5 MG/0.5 ML INH 5 MG INHALATION ×3 (02:12→14:43)
[2021-04-11] MEDS: IPRATROPIUM BR 0.02% INH SOLN 0.5 MG/2.5 ML VIAL INHALATION ×4 (02:12→20:14)
[2021-04-11] MEDS: ALPRAZolam (*CRX) 0.5 MG TABLET PO ×3 (03:12→16:55)
[2021-04-11] MEDS: SODIUM CHLORIDE 0.9% IV 1,000 ML 125 ML IV CONT (05:47)
[2021-04-11 06:28] LABS: Basophils Absolute Auto 0.1 K/mm3 (0.0-0.1); Basophils Percent Auto 0.6 % (0.2-1.2); Eosinophils Absolute Auto 0.3 K/mm3 (0-0.3); Eosinophils Percent Auto 3.4 % (0-4.4); Hematocrit 27.7 % (37.0-47.0); Hemoglobin 8.6 g/dL (12.0-15.0); Immature Granulocyte Absolute 0.05 K/mm3 (0.00-0.031); Immature Granulocyte Percent A 0.5 % (0-0.5); Lymphocytes Absolute Auto 1.72 K/mm3 (0.9-3.2); Lymphocytes Percent Auto 17.1 % (18.3-44.2); Mean Corpuscular Hemoglobin 28.8 pg (26-34); Mean Corpuscular Volume 92.6 fl (80-100); Mean Platelet Volume 8.8 fl (7.4-10.4); Monocytes Absolute Auto 0.8 K/mm3 (0.1-0.6); Monocytes Percent Auto 7.4 % (2.6-8.5); Neutrophils Absolute Auto 7.2 K/mm3 (1.3-6.7); Platelet Count Result 336 k/mm3 (150-375); Red Blood Count 2.99 M/mm3 (4.2-5.4); Red Cell Distribution Width 15.2 % (11.5-14.5); White Blood Count 10.1 K/mm3 (4.5-10.0)
[2021-04-11 06:52] LABS: Anion Gap 2 mmol/L (8-16); Blood Urea Nitrogen 7 mg/dL (7-17); Calcium 7.3 mg/dL (8.4-10.2); Carbon Dioxide 33 mmol/L (22-30); Chloride 106 mmol/L (98-107); Estimated CRCL calculation 82 ml/min; Estimated Glomerular Filt Rate > 60; Glucose 99 mg/dL (65-105); Potassium 2.8 mmol/L (3.4-5.0); Sodium 141 mmol/L (137-145)
--- NOTE | 2021-04-11 10:07 | PM.IMHP ---
H&P: HPI History of Present Illness Date/Time: 04/11/21 10:07 Chief Complaint: SOB Narrative: This is a 55 year old woman with history of COPD with chronic respiratory failure on 3 L of oxygen at home chronically, anxiety, who presented to the ER with complaints of shortness of breath with anxiety attack. The patient states yesterday she was having a panic attack and she felt like she could not catch her breath. She has episodes like this sometimes. She denies any change to her chronic cough, requiring any more oxygen than normal or worsening dyspnea on exertion. She denies any Chest tightness, wheezing, fevers, chills. Patient states she fell a few weeks ago after tripping over her dog. She denies any head trauma but she has had some back pain since then. Denies any numbness, tingling or weakness to 1 side of her body. She denies any urinary symptoms, dysuria, frequent urination, foul odor to her urine. Denies any nausea, vomiting, abdominal pain, diarrhea, constipation, lightheadedness, dizziness, syncopal episodes or any other symptoms at this time. Code Status- Full Code POA- Son Lino Foote and ex- Neo PCP- Dr. Escobar Review of Systems Review of Systems: All systems reviewed & are unremarkable except as noted in HPI and below PMFSH Past Medical History Medical History Abnormal EKG EKG has previously shown ST elevation which appears to be early repolarization. Alcohol abuse Anorexia Anxiety Asthma B12 deficiency anemia Chronic anemia Chronic respiratory failure with hypoxia and hypercapnia COPD with emphysema Gastroesophageal reflux disease Generalized anxiety disorder with panic attacks Spontaneous pneumothorax (~08/2012) Several pneumothoraces status post VATS procedure and apical blebectomy as well as pleurodesis. Tobacco abuse Vitamin D deficiency Surgical History Surgical History History of bilateral tubal ligation History of History of hip surgery (~07/2019) ORIF of right hip fracture. History of tonsillectomy Status post thoracotomy Left-sided VATS procedure and apical bleb resection with pleurodesis. Family History Family History Father Acute myocardial infarction Father No problems noted. Unknown No problems noted. Mother No problems noted. Sibling No problems noted. Social History Social History (Updated 04/11/21 @ 16:26 by Khushi Chirinos PA-C) Social History: The patient lives with her 16-year-old son in [place]. She has 2 other sons who are grown out of the home. 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 She is a former smoker but cannot tell me when she quit smoking cigarettes. She smoked as many as 2 packs of cigarettes per day. She has significantly cut back in her drinking. She denies illicit substance use. Her son Lino Foote and ex- Neo are her surrogate decision maker and she wishes to be a full code. Smoking packs per day: 1.5 Smoking cigarettes per day: 30.0 Years smoked: 35 Smoking pack-years: 52.50 Smoking status: Former smoker Tobacco type: cigarettes Second hand tobacco smoke exposure: No Smoking end date: 03/19/20 Additional smoking assessment comments: Patient states she no longer smokes but can't say when she quit Alcohol intake: former Drinks per week: 4 Substance use: former Substance use type: marijuana Last use: 08/03/2020 Additional living arrangements comments: Lives with her 16-year-old son. Gender identity (if verbalized by the patient): Female Spiritual care concerns: No Agree to blood products: Yes Meds Home Medications and Allergies Home Medications Medication Instructions Recorded Confirmed Type escitalopram oxalate 30 mg PO DAILY 11/15
--- NOTE | 2021-04-11 13:03 | PCNSR ---
On 04/11/21, the student,Bernadine Lawson, provided care and completed [facility] documentation on this patient. I have reviewed the student's documentation and agree with the findings.
[2021-04-11 13:11] LABS: Hematocrit 32.9 % (37.0-47.0); Hemoglobin 9.9 g/dL (12.0-15.0)
[2021-04-11 13:26] LABS: Alanine Aminotransferase 11 U/L (4-35); Albumin Level 2.8 g/dL (3.5-5.1); Alkaline Phosphatase 77 U/L (38-126); Anion Gap 1 mmol/L (8-16); Aspartate Amino Transferase 31 U/L (14-36); Bilirubin,Total 0.2 mg/dL (0.2-1.3); Blood Urea Nitrogen 4 mg/dL (7-17); Carbon Dioxide 34 mmol/L (22-30); Chloride 106 mmol/L (98-107); Estimated CRCL calculation 82 ml/min; Estimated Glomerular Filt Rate > 60; Glucose 111 mg/dL (65-105); Magnesium 1.7 mg/dL (1.6-2.3); Potassium 3.8 mmol/L (3.4-5.0); Sodium 141 mmol/L (137-145)
[2021-04-11 13:27] LABS: Ammonia < 9 umol/L (9-30)
--- NOTE | 2021-04-11 14:49 | PCPTNOTE ---
Attempted PT evaluation this date. Awaiting clarification from orthopedic due to burst and compression fractures. Will follow. NICHELLE CarlosT
--- NOTE | 2021-04-11 15:15 | PCOTNOTE ---
Attempted OT evaluation this date. Awaiting clarification from orthopedic due to burst and compression fractures. Will follow.
[2021-04-11] MEDS: MIRTAZAPINE 30 MG TABLET PO (21:03)
[2021-04-12] VITALS (12 sets, daily range): BP systolic 115–120; BP diastolic 66–81; PULSE 87–112; RESP 16–20; TEMP 36.7–37; O2SAT 94–100
[2021-04-12] MEDS: IPRATROPIUM BR 0.02% INH SOLN 0.5 MG/2.5 ML VIAL INHALATION ×3 (02:12→14:31)
[2021-04-12 06:29] LABS: Hematocrit 29.5 % (37.0-47.0); Mean Corpuscular HGB Conc 30.5 g/dl (32-36); Mean Corpuscular Hemoglobin 28.7 pg (26-34); Mean Corpuscular Volume 93.9 fl (80-100); Mean Platelet Volume 8.9 fl (7.4-10.4); Platelet Count Result 343 k/mm3 (150-375); Red Blood Count 3.14 M/mm3 (4.2-5.4); Red Cell Distribution Width 14.9 % (11.5-14.5)
[2021-04-12 06:51] LABS: Anion Gap -1 mmol/L (8-16); Blood Urea Nitrogen 3 mg/dL (7-17); Calcium 8.2 mg/dL (8.4-10.2); Carbon Dioxide 37 mmol/L (22-30); Chloride 105 mmol/L (98-107); Estimated CRCL calculation 105 ml/min; Estimated Glomerular Filt Rate > 60; Glucose 93 mg/dL (65-105); Magnesium 1.7 mg/dL (1.6-2.3); Potassium 3.5 mmol/L (3.4-5.0); Sodium 141 mmol/L (137-145)
[2021-04-12 06:57] LABS: Transferrin 155 mg/dL (206-381)
[2021-04-12 07:45] LABS: Iron 67 ug/dL (37-170)
[2021-04-12 07:55] LABS: Percent Iron Saturation 33 % (20-50)
[2021-04-12 07:56] LABS: Folic Acid 5.2 ng/mL (2.76->20)
[2021-04-12] MEDS: ESCITALOPRAM OXALATE 10 MG TABLET 30 MG PO (09:02)
[2021-04-12] MEDS: FOLIC ACID 1 MG TABLET PO (09:02)
[2021-04-12] MEDS: PANTOPRAZOLE 40 MG TABLET PO (09:02)
[2021-04-12] MEDS: ALPRAZolam (*CRX) 0.5 MG TABLET PO (09:02)
--- NOTE | 2021-04-12 16:11 | PM.DS ---
DS: Admitting Diagnosis Admitting Diagnosis Admitting Diagnosis: SOB DS: Discharge Diagnosis Discharge Diagnosis (1) Tachypnea: Code(s): R06.82 - Tachypnea, not elsewhere classified Status: Acute Assessment and Plan: This is a 55 year old woman with history of COPD with chronic respiratory failure on 3 L of oxygen at home chronically, anxiety, who presented to the ER with complaints of shortness of breath with anxiety attack. The patient states yesterday she was having a panic attack and she felt like she could not catch her breath. The patient reports shortness of breath and tachypnea. She is 98% on 2 L at this time. She has no wheezing, rales or rhonchi on examination. She does state her Xanax helps with her anxiety and shortness of breath at times. I talked to the the shoe reconditioner [employer] Dr. Melendez about the patient, he reviewed her labs and imaging and did not suggest any changes to her regimen at this time. I do not feel she is in a COPD exacerbation or that she has a pneumonia at this time. The netbackup administrator recommends her following up in the office in a few weeks for further evaluation and possible need to be sent to a thoracic surgeon due to her large bulla on CT. Explained to the patient the importance of following up in taking her medications as prescribed. She understands and agrees with plan all questions answered. (2) Stable burst fracture of T6 vertebra: Code(s): S22.051A - Stable burst fracture of T5-T6 vertebra, initial encounter for closed fracture Status: Acute Assessment and Plan: CT Chest showed T6 burst fracture and T9 compression fracture, new since the prior examination 03/10/21. Our orthopedic providers will not see burst fractures since they do not specialize in spine. It was suggested to talk to a Spinal Specialist. I forwarded the patients imaging to [facility] and talked to their Neurosurgeon shoe reconditioner who reviewed the patients imaging and states it appears to be healing and more chronic likely from fall 1 month ago. Since she was stable, not having any neurologic symptoms she is stable for discharge to follow up with their [facility]. I told this to the patients family and put it in the discharge paperwork need for follow up. (3) Tachycardia: Code(s): R00.0 - Tachycardia, unspecified Status: Acute Assessment and Plan: Patient is tachycardic on her court monitor as high as 145 beats per minute. This appears to be just a sinus tachycardia without any acute arrhythmia at this time. Patient's tachycardia as much improved on telemetry today. I did switch her albuterol to Xopenex with improvement. (4) Anxiety: Code(s): F41.9 - Anxiety disorder, unspecified Status: Acute Assessment and Plan: Continue p.r.n. anxiety medications. (5) Chronic respiratory failure with hypoxia and hypercapnia: Code(s): J96.11 - Chronic respiratory failure with hypoxia; J96.12 - Chronic respiratory failure with hypercapnia Status: Acute Assessment and Plan: Is not requiring any more oxygen than her baseline. ABG shows hypercapnia at 66. I talked to the netbackup administrator Dr. Melendez who recommends her following up as an outpatient to have further sleep testing to see if she needs a noninvasive ventilation at night to trying prevent hypercapnia. Continue oxygenation. Wean as tolerated keep oxygen between 90-94%. (6) COPD with emphysema: Code(s): J43.9 - Emphysema, unspecified Status: Acute Assessment and Plan: Continue with home regiemen (7) Normocytic anemia: Code(s): D64.9 - Anemia, unspecified Status: Acute Assessment and Plan: P
[2021-04-12 22:53] LABS: Methyl Alcohol Level None Detected (None Detected)
--- NOTE | 2021-04-24 10:21 | PC.NURSE ---
Blood cx are negative.
== END 2021-04-12 17:35 | disposition home or self-care (01) | DRG 204 ==
LOC: ANHED 10:23 → ANH3MEDSUR 18:57
PROVIDERS: Physician Assistant; Admitting Provider Family Medicine; Emergency Provider Emergency Medicine; PCP Family Medicine; Visit Provider Emergency Medicine
DX: R06.82 Tachypnea, not elsewhere classified (principal); S22.051A Stable burst fracture of T5-T6 vertebra, initial encounter for closed fracture; S22.070A Wedge compression fracture of T9-T10 vertebra, initial encounter for closed fracture; J96.11 Chronic respiratory failure with hypoxia; J96.12 Chronic respiratory failure with hypercapnia; R00.0 Tachycardia, unspecified; F41.9 Anxiety disorder, unspecified; J43.9 Emphysema, unspecified; R41.82 Altered mental status, unspecified; M81.0 Age-related osteoporosis without current pathological fracture; D64.9 Anemia, unspecified; Z79.899 Other long term (current) drug therapy; Z87.891 Personal history of nicotine dependence; Z99.81 Dependence on supplemental oxygen
CPT/HCPCS: 36415; 36600; 51701; 70450; 71045; 71260; 80048; 80053; 80307; 81003; 82140; 82550; 82607; 82728; 82746; 82805; 83540; 83550; 83735; 84466; 84484; 84600; 85014; 85018; 85025; 85027; 85610; 85730; 87040; 93005; 94640; 96361; 96365; 96366; 96374; 96375; 97161; 97165; 99285; A9270; G0378; J2405; J3480; J7030; Q9967

== ENCOUNTER 2021-05-07 00:13 | Emergency (ER) | payer MEDICARE, MEDICAID, SELFPAY ==
--- NOTE | ~2021-05-07 | CT_ITS ---
EXAMINATION: CT abdomen pelvis w con DATE: 05/07/2021 02:34 INDICATION: Abdominal pain, vomiting, nausea, diarrhea, weight loss TECHNIQUE: Computed tomography (CT) of the abdomen and pelvis was performed with 72 cc Omnipaque 350 intravenous contrast. Automated exposure control and iterative reconstruction technique were employed . Exam dose: 156.14 mGy-cm total exam DLP. COMPARISON: None. FINDINGS: Prominent bullous emphysema is noted in the included lower lung zones. Particularly large b ullae left lung base. No basilar consolidation. Heart size is within normal limits. No pericardial or pleural effusion. The liver, spleen, pancreas, pancreatic duct, and adrenal glands and kidneys are unremarkable. Possible filling defect or defects in the dependent aspect of the gallbladder. Consider gallbladder u ltrasound for further evaluation of possible cholelithiasis. No gallbladder wall thickening. No bile duct or pancreatic duct dilatation. No urinary tract calculus or hydroureteronephrosis is evident. Normal caliber of the abdominal aorta. No evidence of abdominal aortic aneurysm. The urinary bladder, uterus and adnexal areas are unremarkable. Normal appendix. No bowel obstruction or bowel wall thickening, pneumatosis or intraperitoneal free a ir is evident. There are some fluid distended small bowel segments with scattered small bowel air-flu id levels but no abnormal dilatation of the small bowel. Several pins are noted in the proximal right femur. IMPRESSION: Severe bullous emphysema Possible cholelithiasis; consider gallbladder ultrasound examination for more definitive evaluation Fluid distended small bowel segments and scattered small bowel air-fluid levels, without obstruction; consider enteritis, mild adynamic ileus Normal appendix Reviewed, dictated and finalized at [facility]. Reviewed, dictated and finalized at [facility]. IMPRESSION: Severe bullous emphysema Possible cholelithiasis; consider gallbladder ultrasound examination for more d efinitive evaluation Fluid distended small bowel segments and scattered small bowel air-fluid levels , without obstruction; consider enteritis, mild adynamic ileus Normal appendix
[2021-05-07 00:40] VITALS: BP 136/86; PULSE 113; RESP 24; TEMP 37; O2SAT 100
[2021-05-07 00:54] LABS: Basophils Absolute Auto 0.1 K/mm3 (0.0-0.1); Basophils Percent Auto 0.5 % (0.2-1.2); Eosinophils Percent Auto 0.2 % (0-4.4); Hematocrit 35.8 % (37.0-47.0); Hemoglobin 10.8 g/dL (12.0-15.0); Immature Granulocyte Absolute 0.05 K/mm3 (0.00-0.031); Immature Granulocyte Percent A 0.3 % (0-0.5); Lymphocytes Absolute Auto 0.53 K/mm3 (0.9-3.2); Lymphocytes Percent Auto 2.8 % (18.3-44.2); Mean Corpuscular HGB Conc 30.2 g/dl (32-36); Mean Corpuscular Hemoglobin 29.8 pg (26-34); Mean Corpuscular Volume 98.6 fl (80-100); Monocytes Absolute Auto 1.2 K/mm3 (0.1-0.6); Monocytes Percent Auto 6.4 % (2.6-8.5); Neutrophils Absolute Auto 17.3 K/mm3 (1.3-6.7); Neutrophils Percent Auto 89.8 % (45.5-73.1); Platelet Count Result 445 k/mm3 (150-375); Red Blood Count 3.63 M/mm3 (4.2-5.4); Red Cell Distribution Width 13.8 % (11.5-14.5); White Blood Count 19.2 K/mm3 (4.5-10.0)
[2021-05-07] MEDS: ONDANSETRON INJ 4 MG/2 ML VIAL IV PUSH (01:33)
[2021-05-07] MEDS: SODIUM CHLORIDE 0.9% IV 1,000 ML 999 ML IV CONT (01:33)
[2021-05-07 01:36] LABS: Alanine Aminotransferase 16 U/L (4-35); Albumin Level 3.7 g/dL (3.5-5.1); Alkaline Phosphatase 98 U/L (38-126); Anion Gap 9 mmol/L (8-16); Aspartate Amino Transferase 51 U/L (14-36); Bilirubin,Total 0.5 mg/dL (0.2-1.3); Blood Urea Nitrogen 9 mg/dL (7-17); Calcium 9.4 mg/dL (8.4-10.2); Carbon Dioxide 38 mmol/L (22-30); Chloride 89 mmol/L (98-107); Estimated Glomerular Filt Rate > 60; Glucose 129 mg/dL (65-110); Lipase 54 U/L (23-300); Potassium 3.6 mmol/L (3.4-5.0); Sodium 136 mmol/L (137-145)
--- NOTE | 2021-05-07 03:04 | ED.GENADULT ---
HPI - General Adult General Chief complaint: Nausea/Vomiting/Diarrhea Stated complaint: n/v/d Time Seen by Provider: 05/07/21 00:48 History of Present Illness HPI narrative: Patient 55-year-old female presents the emergency department with chief complaint of nausea vomiting and diarrhea. Patient reports she has history of COPD and reports that recently she was treated with oral antibiotics for a upper respiratory infection/COPD exacerbation. Patient reports that she started having vomiting and diarrhea today and reports that she has pain throughout her abdomen. Patient reports that is not really localized reports that it is not improved by anything nor is it worsened by Related Data Home Medications Medication Instructions Recorded Confirmed escitalopram oxalate 30 mg PO DAILY 11/15/19 04/11/21 Incruse Ellipta 1 inh INHALATION DAILY 01/15/21 04/11/21 albuterol sulfate 2 puff INHALATION Q4H PRN 01/15/21 04/11/21 alprazolam 0.5 mg PO Q6H PRN 01/15/21 04/11/21 fluticasone propion-salmeterol 1 inh INHALATION Q12H 01/15/21 04/11/21 [Advair Diskus] mirtazapine 30 mg PO HS 02/08/21 04/11/21 folic acid 1 mg PO DAILY 04/11/21 04/11/21 omeprazole 20 mg PO DAILY 04/11/21 04/11/21 Allergies Allergy/AdvReac Type Severity Reaction Status Date / Time No Known Allergies Allergy Verified 05/07/21 00:43 Review of Systems Review of Systems: Narrative: A 10 system review of systems was completed on the patient and is negative except for what is stated in the HPI. Nursing and ancillary documentation was reviewed. [facility] Past Medical History Medical History Abnormal EKG EKG has previously shown ST elevation which appears to be early repolarization. Alcohol abuse Anorexia Anxiety Asthma B12 deficiency anemia Chronic anemia Chronic respiratory failure with hypoxia and hypercapnia COPD with emphysema Gastroesophageal reflux disease Generalized anxiety disorder with panic attacks Spontaneous pneumothorax (~08/2012) Several pneumothoraces status post VATS procedure and apical blebectomy as well as pleurodesis. Tobacco abuse Vitamin D deficiency Surgical History Surgical History History of bilateral tubal ligation History of History of hip surgery (~07/2019) ORIF of right hip fracture. History of tonsillectomy Status post thoracotomy Left-sided VATS procedure and apical bleb resection with pleurodesis. Family History Family History Father Acute myocardial infarction Father No problems noted. Unknown No problems noted. Mother No problems noted. Sibling No problems noted. Social History Social History Social History: The patient lives with her 16-year-old son in [place]. She has 2 other sons who are grown out of the home. 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 She is a former smoker but cannot tell me when she quit smoking cigarettes. She smoked as many as 2 packs of cigarettes per day. She has significantly cut back in her drinking. She denies illicit substance use. Her son Lino Foote and ex- Neo are her surrogate decision maker and she wishes to be a full code. Smoking packs per day: 1.5 Smoking cigarettes per day: 30.0 Years smoked: 35 Smoking pack-years: 52.50 Smoking status: Former smoker Tobacco type: cigarettes Second hand tobacco smoke exposure: No Smoking end date: 03/19/20 Additional smoking assessment comments: Patient states she no longer smokes but can't say when she quit Alcohol intake: former Drinks per week: 4 Substance use: former Substance use type: marijuana Last use: 08/03/2020 Additional living arrangements comments: Lives with her 16-y
[2021-05-07 03:18] LABS: Add Urine Microscopic? NO; Appearance Urine Clear (Clear); Bilirubin Urine Negative (Negative); Blood Urine Negative (Negative); Color Urine Straw (Yellow); Glucose Urine UA Negative (Negative); Ketones Urine Negative (Negative); Leukocyte Esterase Ur Negative LEU/UL (Negative); Mucus Urine Rare /lpf; Nitrate Urine Negative (Negative); Protein Urine Negative (Negative); RBC Urine 0-2 /hpf (0-2); Specific Grav Ur 1.017 (1.001-1.035); Squamous Epithelial Cell Urine Rare /hpf (Few); Urobilinogen Urine Negative mg/dL (<2.0); WBC Urine 0-3 /hpf
[2021-05-07 03:22] VITALS: BP 117/73; PULSE 88; RESP 18; O2SAT 100
[2021-05-07 07:20] VITALS: BP 115/74; PULSE 93; RESP 16
== END 2021-05-07 07:20 | disposition home or self-care (01) ==
PROVIDERS: Emergency Provider Emergency Medicine; PCP Family Medicine
DX: K52.9 Noninfective gastroenteritis and colitis, unspecified (principal); R10.84 Generalized abdominal pain; J96.11 Chronic respiratory failure with hypoxia; J96.12 Chronic respiratory failure with hypercapnia; J43.9 Emphysema, unspecified; E55.9 Vitamin D deficiency, unspecified; D51.9 Vitamin B12 deficiency anemia, unspecified; K21.9 Gastro-esophageal reflux disease without esophagitis; F41.1 Generalized anxiety disorder; Z87.891 Personal history of nicotine dependence
CPT/HCPCS: 36415; 74177; 80053; 81003; 83690; 85025; 96361; 96374; 99284; J2405; J7030; Q9967

== ENCOUNTER 2021-05-07 23:30 | Inpatient (IN) | payer MEDICARE, MEDICAID, SELFPAY ==
--- NOTE | ~2021-05-07 | XR_ITS ---
EXAMINATION: XR chest 1V portable DATE: 05/08/2021 00:25 INDICATION: Shortness of breath TECHNIQUE: frontal view of the chest was obtained. COMPARISON: Chest radiograph and CT dated 04/10/2021 FINDINGS: Severe emphysema with scattered regions of increased lucency and architectural distortion most promin ent in the right upper and left mid and bilateral lower lung zones. Scattered linear and curvilinear atelectasis/scarring. New patchy airspace opacity in the right midlung zone. Blunting at the costophr enic angles which could represent small bilateral pleural effusions. Suture lines at the bilateral ap ices. No pneumothorax. The cardiomediastinal silhouette is normal. Old posterior left seventh rib fra cture. IMPRESSION: 1. Emphysema with scattered atelectasis/scarring throughout both lungs. 2. No focal airspace opacity in the right midlung zone which could represent pneumonia, pulmonary no ma or additional atelectasis. Reviewed, dictated and finalized at [facility]. IMPRESSION: 1. Emphysema with scattered atelectasis/scarring throughout both lungs. 2. No focal airspace opacity in the right midlung zone which could represent pn eumonia, pulmonary edema or additional atelectasis.
[2021-05-07 23:30] VITALS: BP 102/70; PULSE 149; RESP 37; TEMP 37.7; O2SAT 100
--- NOTE | 2021-05-07 23:42 | ECG_ITS ---
Measurements Intervals O'Brien Rate: 149 P: 85 WV: 141 QRS: -75 QRSD: 75 T: 85 QT: 325 QTc: 513 Interpretive Statements SINUS TACHYCARDIA, POSSIBLE ATRIAL FLUTTER LEFT ANTERIOR FASCICULAR BLOCK INFERIOR INFARCT, AGE INDETERMINATE ANTEROLATERAL INFARCT, AGE INDETERMINATE BORDERLINE ST-T WAVE ABNORMALITY- HIGH LATERAL LEADS BASELINE WANDER- II, III, V1-V2 ABNORMAL ECG Electronically Signed On 05-08-2021 6:22:29 CDT by Quinton Bell D.O.
[2021-05-08] VITALS (15 sets, daily range): BP systolic 99–114; BP diastolic 48–66; PULSE 80–147; RESP 16–36; TEMP 36.4–36.9; O2SAT 94–100; BMI 15.1
[2021-05-08 00:16] LABS: Alveolar/Arterial O2 Gradient 72.3 mmHg; Base Excess ABG 13.5 mEq/l (+/-2.0); Fractional Inspired Oxygen 32 %; HCO3 ABG 40.6 mEq/l (22.0-26.0); Oxygen Content ABG 14.2 %vol (16.0-22.0); Oxyhemoglobin 94.1 % THb (90.0-100.0); PO2 ABG 77.6 mmHg (80.0-100.0); PO2 FiO2 Ratio Arterial Blood 2.42 %; Total Hemoglobin 10.7 g/dL (12.0-18.0); pH ABG 7.401 (7.350-7.450)
[2021-05-08 00:18] LABS: Device NASAL CANNULA; Modified Allen's Test Pass; PCO2 ABG 66.9 mmHg (35.0-45.0); Site Drawn RIGHT RADIAL
[2021-05-08 00:43] LABS: Basophils Absolute Auto 0.1 K/mm3 (0.0-0.1); Basophils Percent Auto 0.4 % (0.2-1.2); Eosinophils Absolute Auto 0.1 K/mm3 (0-0.3); Eosinophils Percent Auto 0.5 % (0-4.4); Hematocrit 33.2 % (37.0-47.0); Hemoglobin 10.2 g/dL (12.0-15.0); Immature Granulocyte Absolute 0.05 K/mm3 (0.00-0.031); Immature Granulocyte Percent A 0.3 % (0-0.5); Lymphocytes Absolute Auto 1.09 K/mm3 (0.9-3.2); Lymphocytes Percent Auto 6.6 % (18.3-44.2); Mean Corpuscular HGB Conc 30.7 g/dl (32-36); Mean Corpuscular Hemoglobin 30.2 pg (26-34); Mean Corpuscular Volume 98.2 fl (80-100); Mean Platelet Volume 8.8 fl (7.4-10.4); Monocytes Absolute Auto 1.2 K/mm3 (0.1-0.6); Monocytes Percent Auto 7.3 % (2.6-8.5); Neutrophils Absolute Auto 14.1 K/mm3 (1.3-6.7); Neutrophils Percent Auto 84.9 % (45.5-73.1); Platelet Count Result 331 k/mm3 (150-375); Red Blood Count 3.38 M/mm3 (4.2-5.4); White Blood Count 16.6 K/mm3 (4.5-10.0)
[2021-05-08 00:55] LABS: Lactic Acid Reflex 1.3 mmol/L (0.7-2.1)
[2021-05-08 00:56] LABS: INR 0.8; Prothrombin Time 11.3 Seconds (11.1-14.7)
[2021-05-08 01:02] LABS: NT Pro B Type Natriuretic Pept 453 pg/mL (5-100)
[2021-05-08] MEDS: LORazepam INJ (*CRX) 2 MG/ML VIAL 0.5 MG IV PUSH (01:03)
[2021-05-08] MEDS: methylPREDNISolone SOD SUCC 125 MG VIAL IV PUSH (01:03)
[2021-05-08 01:05] LABS: Troponin I < 0.012 ng/mL (0.000-0.034)
[2021-05-08 01:08] LABS: Alanine Aminotransferase 12 U/L (4-35); Albumin Level 3.3 g/dL (3.5-5.1); Alkaline Phosphatase 95 U/L (38-126); Aspartate Amino Transferase 28 U/L (14-36); Bilirubin,Total 0.5 mg/dL (0.2-1.3); Blood Urea Nitrogen 4 mg/dL (7-17); Calcium 9.2 mg/dL (8.4-10.2); Carbon Dioxide > 40 mmol/L (22-30); Chloride 93 mmol/L (98-107); Estimated CRCL calculation 77 ml/min; Estimated Glomerular Filt Rate > 60; Glucose 111 mg/dL (65-110); Potassium 2.8 mmol/L (3.4-5.0); Sodium 139 mmol/L (137-145)
[2021-05-08 01:28] LABS: D Dimer 0.27 ug/mL (<0.48)
--- NOTE | 2021-05-08 01:42 | ED.SOB ---
HPI - SOB/Dyspnea General Chief Complaint: Shortness of Breath/Dyspnea Stated Complaint: shortness of breath Time Seen by Provider: 05/07/21 23:42 Source: patient Mode of arrival: EMS Limitations: no limitations History of Present Illness HPI Narrative: 55-year-old with a history of COPD on 4 L oxygen, anxiety, tachycardia, anorexia, alcohol abuse here with complaints of shortness of breath since early this afternoon. Patient states that she was seen here yesterday for abdominal pain. Patient presently denies any fever or chills. Denies any chest pain. She states her abdominal pain resolved. MD elicited complaint: shortness of breath Pertinent past history: COPD Onset (ago): day(s) (1) Timing: constant Severity: moderate Exacerbating factors: nothing Related Data Home oxygen amount: 4 liters Home Medications Medication Instructions Recorded Confirmed escitalopram oxalate 30 mg PO DAILY 11/15/19 04/11/21 Incruse Ellipta 1 inh INHALATION DAILY 01/15/21 04/11/21 albuterol sulfate 2 puff INHALATION Q4H PRN 01/15/21 04/11/21 alprazolam 0.5 mg PO Q6H PRN 01/15/21 04/11/21 fluticasone propion-salmeterol 1 inh INHALATION Q12H 01/15/21 04/11/21 [Advair Diskus] mirtazapine 30 mg PO HS 02/08/21 04/11/21 folic acid 1 mg PO DAILY 04/11/21 04/11/21 omeprazole 20 mg PO DAILY 04/11/21 04/11/21 Allergies Allergy/AdvReac Type Severity Reaction Status Date / Time No Known Allergies Allergy Verified 05/07/21 23:50 Review of Systems Review of Systems: All systems reviewed & are unremarkable except as noted in HPI and below Constitutional: Constitutional: Reports no additional constitutional complaints ENT: Reports system reviewed and no additional complaints, except as documented Cardiovascular: Cardiovascular: Reports no additional cardiovascular complaints Respiratory: Respiratory: Reports no additional respiratory complaints Musculoskeletal: Musculoskeletal: Reports no additional musculoskeletal complaints Integumentary/Breasts: Skin/Breast: Reports system reviewed and no additional complaints, except as docu PMFSH Past Medical History Medical History Abnormal EKG EKG has previously shown ST elevation which appears to be early repolarization. Alcohol abuse Anorexia Anxiety Asthma B12 deficiency anemia Chronic anemia Chronic respiratory failure with hypoxia and hypercapnia COPD with emphysema Gastroesophageal reflux disease Generalized anxiety disorder with panic attacks Spontaneous pneumothorax (~08/2012) Several pneumothoraces status post VATS procedure and apical blebectomy as well as pleurodesis. Tobacco abuse Vitamin D deficiency Surgical History Surgical History History of bilateral tubal ligation History of History of hip surgery (~07/2019) ORIF of right hip fracture. History of tonsillectomy Status post thoracotomy Left-sided VATS procedure and apical bleb resection with pleurodesis. Family History Family History Father Acute myocardial infarction Father No problems noted. Unknown No problems noted. Mother No problems noted. Sibling No problems noted. Social History Social History Social History: The patient lives with her 16-year-old son in [place]. She has 2 other sons who are grown out of the home. 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 She is a former smoker but cannot tell me when she quit smoking cigarettes. She smoked as many as 2 packs of cigarettes per day. She has significantly cut back in her drinking. She denies illicit substance use. Her son Lino Foote and ex- Neo are her surrogate decision maker and she wishes to be a full code. Smoking packs per day: 1.5 Smoking cigar
--- NOTE | 2021-05-08 02:40 | ADMGEN ---
This patient, Esther Brink, was admitted to Medical Room 261-01. Patient/family oriented to hospital policies and general routines including ID bracelet, bed and alarms, visiting hours, pain management, procedures, bathroom and other care routines, personal items, smoking policy, room service/diet, and visiting hours. Information on how to activate the Rapid Response Team has been discussed. Patient/Family are encouraged to report perceived risks to care and to ask questions if they do not understand what they are told or what they should do.
--- NOTE | 2021-05-08 03:10 | PM.IMHP ---
H&P: HPI History of Present Illness Date/Time: 05/08/21 03:10 Chief Complaint: SHORTNESS OF BREATH Narrative: THIS IS A 55-YEAR-OLD FEMALE WITH PAST MEDICAL HISTORY SIGNIFICANT FOR COPD /EMPHYSEMA, ALCOHOL DEPENDENCE, TOBACCO DEPENDENCE. PATIENT HAD BEEN SEEN IN THE EMERGENCY ROOM YESTERDAY WHEN SHE PRESENTED WITH NAUSEA VOMITING ABDOMINAL PAIN AND DIARRHEA SHE WAS TREATED AND DISCHARGED HOME NO SHE RETURNED TODAY FOR WORSENING SHORTNESS OF BREATH. PATIENT HAD BEEN TREATED IN THE OUTPATIENT SETTING WITH ANTIBIOTICS PRIOR TO THIS. AT THE TIME OF MY VISIT PATIENT DENIED ANY DISCOMFORT. PRELIMINARY WORKUP WAS SIGNIFICANT FOR POTASSIUM OF 2.8 A LEUKOCYTE COUNT OF 16,000. THE DAY PRIOR PATIENT HAD BEEN DISCHARGED HOME ON A COURSE OF CIPROFLOXACIN AND FLAGYL. Review of Systems Review of Systems: Narrative: SHORTNESS OF BREATH All systems reviewed & are unremarkable except as noted in HPI and below PMFSH Past Medical History Medical History Abnormal EKG EKG has previously shown ST elevation which appears to be early repolarization. Alcohol abuse Anorexia Anxiety Asthma B12 deficiency anemia Chronic anemia Chronic respiratory failure with hypoxia and hypercapnia COPD with emphysema Gastroesophageal reflux disease Generalized anxiety disorder with panic attacks Spontaneous pneumothorax (~08/2012) Several pneumothoraces status post VATS procedure and apical blebectomy as well as pleurodesis. Tobacco abuse Vitamin D deficiency Surgical History Surgical History History of bilateral tubal ligation History of History of hip surgery (~07/2019) ORIF of right hip fracture. History of tonsillectomy Status post thoracotomy Left-sided VATS procedure and apical bleb resection with pleurodesis. Family History Family History Father Acute myocardial infarction Father No problems noted. Unknown No problems noted. Mother No problems noted. Sibling No problems noted. Social History Social History Social History: The patient lives with her 16-year-old son in [place]. She has 2 other sons who are grown out of the home. 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 She is a former smoker but cannot tell me when she quit smoking cigarettes. She smoked as many as 2 packs of cigarettes per day. She has significantly cut back in her drinking. She denies illicit substance use. Her son Lino Foote and ex- Neo are her surrogate decision maker and she wishes to be a full code. Smoking packs per day: 1.5 Smoking cigarettes per day: 30.0 Years smoked: 35 Smoking pack-years: 52.50 Smoking status: Former smoker Tobacco type: cigarettes Second hand tobacco smoke exposure: Yes Smoking end date: 03/19/20 Additional smoking assessment comments: Patient states she no longer smokes but can't say when she quit Alcohol intake: never Drinks per week: 4 Substance use: never Substance use type: marijuana Last use: 08/03/2020 Additional living arrangements comments: Lives with her 16-year-old son. Gender identity (if verbalized by the patient): Female Spiritual care concerns: No Agree to blood products: Yes Meds Home Medications and Allergies Home Medications Medication Instructions Recorded Confirmed Type escitalopram oxalate 30 mg PO DAILY 11/15/19 05/08/21 History Incruse Ellipta 1 inh INHALATION DAILY 01/15/21 05/08/21 History albuterol sulfate 2 puff INHALATION Q4H PRN 01/15/21 05/08/21 History alprazolam 0.5 mg PO Q6H PRN 01/15/21 05/08/21 History fluticasone propion-salmeterol 1 inh INHALATION Q12H 01/15/21 05/08/21 History [Advair Diskus] mirtazapine 30 mg PO HS 02/08/21 05/08/21 History ciprofloxacin HC
[2021-05-08] MEDS: methylPREDNISolone SOD SUCC 125 MG VIAL 60 MG IV PUSH ×4 (06:58→23:40)
[2021-05-08] MEDS: SODIUM CHLORIDE 0.9% IV 1,000 ML 125 ML IV CONT ×3 (06:58→23:44)
[2021-05-08] MEDS: IPRATROPIUM BR 0.02% INH SOLN 0.5 MG/2.5 ML VIAL INHALATION ×3 (07:18→20:11)
[2021-05-08] MEDS: ALBUTEROL SULFATE NEB 2.5 MG/0.5 ML INH 5 MG INHALATION ×3 (07:18→20:12)
[2021-05-08] MEDS: FLUTICASONE/SALMETEROL 115-21 MCG INHALER 1 PUFF 2 PUFF INHALATION ×2 (07:18→20:22)
--- NOTE | 2021-05-08 08:22 | PM.IMPN ---
Progress Note: A&P Assessment and Plan (1) Acute exacerbation of chronic obstructive pulmonary disease: Code(s): J44.1 - Chronic obstructive pulmonary disease with (acute) exacerbation Status: Acute Assessment and Plan: ADMIT TO REGULAR MEDICAL FLOOR VITALS PER UNIT PROTOCOL REGULAR DIET BREATHING TREATMENT SUPPLEMENTAL OXYGEN TRY AND KEEP OXYGEN SATS IN BETWEEN 92-94% SYSTEMIC STEROIDS (2) Acute hypokalemia: Code(s): E87.6 - Hypokalemia Status: Acute Assessment and Plan: REPLACE NEEDED (3) Alcohol abuse: Code(s): F10.10 - Alcohol abuse, uncomplicated Status: Acute Assessment and Plan: CIWA NEEDED Subjective Date/time seen: 05/08/21 08:22 Pt admitted for Acute COPD exacerbation; I agree with current A/P Objective Data Vital Signs Vital Signs: Vital Signs - 24 hr 05/07/21 23:30 05/08/21 00:38 05/08/21 01:07 Temperature 37.7 C H Pulse Rate 149 H 147 H 142 H Respiratory Rate 37 H 35 H 34 H Blood Pressure 102/70 108/66 99/58 L Pulse Oximetry 100 99 98 05/08/21 01:48 05/08/21 02:31 05/08/21 03:31 Temperature Pulse Rate 137 H 139 H Respiratory Rate 36 H 33 H Blood Pressure 100/66 100/66 Pulse Oximetry 96 98 97 05/08/21 04:00 05/08/21 07:10 05/08/21 07:43 Temperature 36.9 C Pulse Rate 119 H 101 H 95 Respiratory Rate 18 Blood Pressure 114/61 Pulse Oximetry 97 98 Intake/Output Intake/Output: Intake & Output 05/05/21 05/06/21 05/07/21 05/08/21 23:59 23:59 23:59 23:59 Intake Total 650 Output Total 400 Balance 250 Meds/Results Medications: Active Medications Generic Name Dose Route Start Last Admin Trade Name Freq PRN Reason Stop Dose Admin Acetaminophen 650 mg 05/08/21 01:38 Acetaminophen 325 Mg Tablet PO Q4H PRN Mild Pain (1-3) or Fever Albuterol 5 mg 05/08/21 02:00 05/08/21 07:18 Albuterol Sulfate Neb 2.5 Mg/0.5 Ml Inh INHALATION 5 mg Q6HRT DAILY Administration Albuterol 2 puff 05/08/21 04:08 Albuterol Sulfate (*Sp) Aerosol 1 Puff INHALATION Q4H PRN wheezing Alprazolam 0.5 mg 05/08/21 04:08 Alprazolam (*Crx) 0.5 Mg Tablet PO Q6H PRN Anxiety Escitalopram Oxalate 30 mg 05/08/21 09:00 Escitalopram Oxalate 10 Mg Tablet PO DAILY DAILY Sodium Chloride 1,000 mls @ 125 mls/hr 05/08/21 01:40 05/08/21 06:58 Normal Saline Iv IV CONT 125 mls/hr .Q8H DAILY Administration Ipratropium [place] 0.5 mg 05/08/21 02:00 05/08/21 07:18 Ipratropium Br 0.02% Inh Soln 0.5 Mg/2.5 Ml Vial INHALATION 0.5 mg Q6HRT DAILY Administration Lorazepam 0.5 mg 05/08/21 01:38 Lorazepam Inj (*Crx) 2 Mg/Ml Vial IV PUSH Q6H PRN Anxiety Methylprednisolone Sodium Succinate 60 mg 05/08/21 06:00 05/08/21 06:58 Methylprednisolone Sod Succ 125 Mg Vial IV PUSH 60 mg Q6HR DAILY Administration Metronidazole 500 mg 05/08/21 06:00 Metronidazole 250 Mg Tablet PO Q8HR DAILY Mirtazapine 30 mg 05/08/21 21:00 Mirtazapine 30 Mg Tablet PO HS DAILY Montelukast Sodium 10 mg 05/08/21 21:00 Montelukast Sodium 10 Mg Tablet PO HS DAILY Ondansetron HCl 4 mg 05/08/21 04:08 Ondansetron Hcl Odt 4 Mg Tablet PO Q8H PRN nausea and vomiting Fluticasone/Salmeterol 2 puff 05/08/21 08:00 05/08/21 07:18 Fluticasone/Salmeterol 115-21 Mcg Inhaler 1 Puff INHALATION 2 puff Q12HRT DAILY Administration Umeclidinium [place] 1 puff 05/08/21 09:00 Umeclidinium [place] 62.5 Mcg Ellipta INHALATION DAILY [facility] Labs Labs: Laboratory Results - last 24 hr 05/07/21 05/08/21 05/08/21 23:59 00:31 00:31 WBC 16.6 H RBC 3.38 L Hgb 10.2 L Hct 33.2 L MCV 98.2 MCH 30.2 MCHC 30.7 L RDW 14.0 Plt Count 331 MPV 8.8 Immature Gran % (Auto) 0.3 Neut % (Auto) 84.9 H Lymph % (Auto) 6.6 L Rich % (Auto) 7.3 Eos % (Auto) 0.5 Baso % (Auto) 0.
[2021-05-08] MEDS: metroNIDAZOLE 250 MG TABLET 500 MG PO ×3 (10:09→21:08)
[2021-05-08] MEDS: ESCITALOPRAM OXALATE 10 MG TABLET 30 MG PO (10:09)
--- NOTE | 2021-05-08 13:44 | PCNSR ---
On 05/08/21, the student, Niesha Dash, provided care and completed [facility] documentation on this patient. I have reviewed the student's documentation and agree with the findings.
[2021-05-08] MEDS: ALPRAZolam (*CRX) 0.5 MG TABLET PO ×2 (14:54→21:09)
--- NOTE | 2021-05-08 17:00 | PC.NURSE ---
Called R.T. regarding Ellipta inhaler order. Per R.T. the inhaler was not sent by the pharmacy. Called pharmacy and left a message requesting an inhaler be sent so R.T. can administer it to patient.
[2021-05-08] MEDS: MONTELUKAST SODIUM 10 MG TABLET PO (21:08)
[2021-05-08] MEDS: MIRTAZAPINE 30 MG TABLET PO (21:09)
[2021-05-09] VITALS (10 sets, daily range): BP systolic 90–118; BP diastolic 48–62; PULSE 80–129; RESP 16–20; TEMP 36.1–36.7; O2SAT 95–100
[2021-05-09] MEDS: ALBUTEROL SULFATE NEB 2.5 MG/0.5 ML INH 5 MG INHALATION ×2 (01:19→09:14)
[2021-05-09] MEDS: IPRATROPIUM BR 0.02% INH SOLN 0.5 MG/2.5 ML VIAL INHALATION ×2 (01:20→09:14)
[2021-05-09] MEDS: LORazepam INJ (*CRX) 2 MG/ML VIAL 0.5 MG IV PUSH (01:52)
[2021-05-09] MEDS: metroNIDAZOLE 250 MG TABLET 500 MG PO ×3 (05:23→21:47)
[2021-05-09] MEDS: methylPREDNISolone SOD SUCC 125 MG VIAL 60 MG IV PUSH ×3 (05:24→17:02)
[2021-05-09 05:33] LABS: Basophils Percent Auto 0.1 % (0.2-1.2); Hematocrit 28.1 % (37.0-47.0); Hemoglobin 8.4 g/dL (12.0-15.0); Immature Granulocyte Absolute 0.07 K/mm3 (0.00-0.031); Immature Granulocyte Percent A 0.5 % (0-0.5); Lymphocytes Absolute Auto 0.19 K/mm3 (0.9-3.2); Lymphocytes Percent Auto 1.4 % (18.3-44.2); Mean Corpuscular HGB Conc 29.9 g/dl (32-36); Mean Corpuscular Hemoglobin 29.8 pg (26-34); Mean Corpuscular Volume 99.6 fl (80-100); Mean Platelet Volume 9.4 fl (7.4-10.4); Monocytes Absolute Auto 0.3 K/mm3 (0.1-0.6); Monocytes Percent Auto 2.3 % (2.6-8.5); Neutrophils Absolute Auto 13.3 K/mm3 (1.3-6.7); Neutrophils Percent Auto 95.7 % (45.5-73.1); Platelet Count Result 340 k/mm3 (150-375); Red Blood Count 2.82 M/mm3 (4.2-5.4); Red Cell Distribution Width 13.4 % (11.5-14.5); White Blood Count 13.9 K/mm3 (4.5-10.0)
[2021-05-09 05:53] LABS: Anion Gap 2 mmol/L (8-16); Blood Urea Nitrogen 4 mg/dL (7-17); Calcium 7.9 mg/dL (8.4-10.2); Carbon Dioxide 36 mmol/L (22-30); Chloride 102 mmol/L (98-107); Estimated CRCL calculation 93 ml/min; Estimated Glomerular Filt Rate > 60; Glucose 170 mg/dL (65-110); Potassium 2.9 mmol/L (3.4-5.0); Sodium 140 mmol/L (137-145)
[2021-05-09] MEDS: SODIUM CHLORIDE 0.9% IV 1,000 ML 125 ML IV CONT ×2 (07:56→16:58)
[2021-05-09] MEDS: ESCITALOPRAM OXALATE 10 MG TABLET 30 MG PO (08:18)
--- NOTE | 2021-05-09 08:33 | PM.IMPN ---
Progress Note: A&P Assessment and Plan (1) Acute exacerbation of chronic obstructive pulmonary disease: Code(s): J44.1 - Chronic obstructive pulmonary disease with (acute) exacerbation Status: Acute Assessment and Plan: Continue with duo nebs Pt is on home O2 3L cont SUPPLEMENTAL OXYGEN to keep sats >92% Continue steroids, taper does when necessary (2) Acute hypokalemia: Code(s): E87.6 - Hypokalemia Status: Acute Assessment and Plan: K+ 2.9 today Will give 40 meq IVPB REPLACE NEEDED Monitor (3) Alcohol abuse: Code(s): F10.10 - Alcohol abuse, uncomplicated Status: Acute Assessment and Plan: CIWA protocol in place Supportive care Subjective Date/time seen: 05/09/21 08:33 Interval history: Pt seen and evaluated; BP soft; denies AGUILAR, dizziness; SOB, or CP Review of Systems Review of Systems: All systems reviewed & are unremarkable except as noted in HPI and below Exam Const: General: no acute distress, alert and awake Orientation/consciousness: patient oriented x3 HENMT: Head: normocephalic and atraumatic Ears: hearing grossly normal bilaterally and external ears normal Face and sinus: face symmetric Mouth: Yes Normal oral and palatal mucosa present Eyes: Pupils: Equal, round and reactive pupils present EOM: EOMs intact bilaterally Neck: Neck: full ROM, trachea midline and no JVD Thyroid: thyroid normal Chest: Chest palpation & inspection: normal inspection of the chest Resp: Effort & Inspection: normal respiratory effort Auscultation: diminished lung sounds Cardio: Jugular venous distension: no JVD Rate: regular rate Rhythm: regular rhythm Heart sounds: S1 normal heart sound present and S2 normal heart sound present GI: Inspection: normal to inspection GI Palp: Yes Soft to palpation Percussion: Yes normal to percussion Auscultation: normal bowel sounds : General: Yes no CVA tenderness Back/Spine/Pelvis: Back: no CVA tenderness Skin: General skin exam: normal color Rashes: no rashes Neuro: General: patient oriented x3 and CN's II-XI intact bilaterally Cranial nerves: Yes Equal, round and reactive pupils present Speech: normal speech Psych: Appearance: grossly normal Affect: normal affect Judgement: Good judgement present (Psych) Objective Data Vital Signs Vital Signs: Vital Signs - 24 hr 05/08/21 12:00 05/08/21 14:37 05/08/21 16:00 Temperature 36.4 C 36.6 C Pulse Rate 103 H 108 H 100 Respiratory Rate 18 18 Blood Pressure 108/48 L 112/50 L Pulse Oximetry 100 100 05/08/21 20:00 05/08/21 20:14 05/08/21 20:22 Temperature 36.6 C Pulse Rate 117 H 109 H 117 H Respiratory Rate 20 20 20 Blood Pressure 102/48 L Pulse Oximetry 95 95 95 05/09/21 00:00 05/09/21 01:15 05/09/21 01:48 Temperature 36.1 C L Pulse Rate 92 101 H 91 Respiratory Rate 16 20 20 Blood Pressure 95/51 L Pulse Oximetry 97 97 97 05/09/21 04:00 Temperature 36.1 C L Pulse Rate 80 Respiratory Rate 16 Blood Pressure 90/48 L Pulse Oximetry 100 Intake/Output Intake/Output: Intake & Output 05/06/21 05/07/21 05/08/21 05/09/21 23:59 23:59 23:59 23:59 Intake Total 3730 1390 Output Total 1000 1200 Balance 2730 190 Meds/Results Medications: Active Medications Generic Name Dose Route Start Last Admin Trade Name Freq PRN Reason Stop Dose Admin Acetaminophen 650 mg 05/08/21 01:38 Acetaminophen 325 Mg Tablet PO Q4H PRN Mild Pain (1-3) or Fever Albuterol 5 mg 05/08/21 02:00 05/09/21 01:19 Albuterol Sulfate Neb 2.5 Mg/0.5 Ml Inh INHALATION 5 mg Q6HRT DAILY Administration Albuterol 2 puff 05/08/21 04:08 Albuterol Sulfate (*Sp) Aerosol 1 Puff INHALATION Q4H PRN wheezing Alprazolam 0.5 mg 05/08/21 04:08 05/08/21 21:09 Alprazolam (*Crx) 0.5 Mg Tablet PO 0.5 mg Q6H PRN Administration Anxiety Escitalopram Oxalate 30 mg 05/08/21 09:00 05/09/21 08:18 Escit
[2021-05-09] MEDS: ALPRAZolam (*CRX) 0.5 MG TABLET PO ×3 (09:03→21:47)
[2021-05-09] MEDS: UMECLIDINIUM BROMIDE 62.5 MCG ELLIPTA 1 PUFF INHALATION (09:13)
[2021-05-09] MEDS: FLUTICASONE/SALMETEROL 115-21 MCG INHALER 1 PUFF 2 PUFF INHALATION (09:14)
[2021-05-09] MEDS: ALBUTEROL SULFATE (*SP) AEROSOL 1 PUFF 2 PUFF INHALATION (12:01)
--- NOTE | 2021-05-09 13:19 | ECG_ITS ---
Measurements Intervals [place] Rate: 122 P: 90 [place]: 120 QRS: 59 QRSD: 76 T: 60 QT: 285 QTc: 406 Interpretive Statements SINUS TACHYCARDIA ATRIAL COUPLET MINIMAL Q WAVES- ANTEROLATERAL LEADS BASELINE ARTIFACT- II, III, V5 ABNORMAL ECG Electronically Signed On 05-09-2021 14:07:45 CDT by Quinton Bell D.O.
--- NOTE | 2021-05-09 13:20 | PC.NURSE ---
Patient's heartrate noted to be in the 130s when using the BSC. When patient returned to bed, HR remained in the 120s. Notified Heena Zuluaga [employer] and orders received for stat EKG
--- NOTE | 2021-05-09 13:32 | PC.NURSE ---
Called EKG results to Heena Zuluaga NP. Patient continues to denies symptoms related to tachycardia.
[2021-05-09] MEDS: MIRTAZAPINE 30 MG TABLET PO (21:47)
[2021-05-09] MEDS: MONTELUKAST SODIUM 10 MG TABLET PO (21:47)
--- NOTE | 2021-05-09 23:46 | PCRCNOTE ---
Window of time for administration has passed. See next scheduled administration.
[2021-05-10] VITALS (19 sets, daily range): BP systolic 100–134; BP diastolic 53–72; PULSE 74–121; RESP 16–24; TEMP 36–36.9; O2SAT 95–100
[2021-05-10] MEDS: methylPREDNISolone SOD SUCC 125 MG VIAL 60 MG IV PUSH ×4 (00:01→17:46)
[2021-05-10] MEDS: SODIUM CHLORIDE 0.9% IV 1,000 ML 125 ML IV CONT ×3 (00:04→16:28)
[2021-05-10] MEDS: ALPRAZolam (*CRX) 0.5 MG TABLET PO ×3 (05:05→19:01)
--- NOTE | 2021-05-10 05:40 | PCRCNOTE ---
Window of time for administration has passed. See next scheduled administration.
[2021-05-10] MEDS: metroNIDAZOLE 250 MG TABLET 500 MG PO ×3 (05:58→21:48)
[2021-05-10] MEDS: ESCITALOPRAM OXALATE 10 MG TABLET 30 MG PO (08:12)
[2021-05-10] MEDS: FLUTICASONE/SALMETEROL 115-21 MCG INHALER 1 PUFF 2 PUFF INHALATION ×2 (08:23→19:35)
[2021-05-10] MEDS: IPRATROPIUM BR 0.02% INH SOLN 0.5 MG/2.5 ML VIAL INHALATION ×3 (08:23→19:35)
[2021-05-10] MEDS: ALBUTEROL SULFATE NEB 2.5 MG/0.5 ML INH 5 MG INHALATION ×3 (08:23→19:34)
--- NOTE | 2021-05-10 09:08 | PM.IMPN ---
Progress Note: A&P Assessment and Plan (1) Acute exacerbation of chronic obstructive pulmonary disease: Code(s): J44.1 - Chronic obstructive pulmonary disease with (acute) exacerbation Status: Acute Assessment and Plan: Continue with duo nebs Pt is on home O2 3L cont SUPPLEMENTAL OXYGEN to keep sats >92% Continue steroids, taper does when necessary (2) Acute hypokalemia: Code(s): E87.6 - Hypokalemia Status: Acute Assessment and Plan: K+ 2.9 today Will give 40 meq IVPB REPLACE NEEDED Monitor (3) Alcohol abuse: Code(s): F10.10 - Alcohol abuse, uncomplicated Status: Acute Assessment and Plan: CIWA protocol in place Supportive care Subjective Date/time seen: 05/10/21 09:08 Interval history: Pt seen and evaluated; pt noted with anxiety yesterday; no other complaintsdenies AGUILAR, dizziness; SOB, or CP Review of Systems Review of Systems: All systems reviewed & are unremarkable except as noted in HPI and below Exam Const: General: no acute distress, alert and awake Orientation/consciousness: patient oriented x3 HENMT: Head: normocephalic and atraumatic Ears: hearing grossly normal bilaterally and external ears normal Face and sinus: face symmetric Mouth: Yes Normal oral and palatal mucosa present Eyes: Pupils: Equal, round and reactive pupils present EOM: EOMs intact bilaterally Neck: Neck: full ROM, trachea midline and no JVD Thyroid: thyroid normal Chest: Chest palpation & inspection: normal inspection of the chest Resp: Effort & Inspection: normal respiratory effort Auscultation: diminished lung sounds Cardio: Jugular venous distension: no JVD Rate: regular rate Rhythm: regular rhythm Heart sounds: S1 normal heart sound present and S2 normal heart sound present GI: Inspection: normal to inspection Auscultation: normal bowel sounds : General: Yes no CVA tenderness Back/Spine/Pelvis: Back: no CVA tenderness Skin: General skin exam: normal color Rashes: no rashes Neuro: General: patient oriented x3 and CN's II-XI intact bilaterally Cranial nerves: Yes Equal, round and reactive pupils present Speech: normal speech Psych: Appearance: grossly normal Affect: normal affect Judgement: Good judgement present (Psych) Objective Data Vital Signs Vital Signs: Vital Signs - 24 hr 05/09/21 09:14 05/09/21 09:27 05/09/21 12:00 Temperature 36.6 C Pulse Rate 103 H 95 129 H Respiratory Rate 20 20 16 Blood Pressure 113/62 Pulse Oximetry 95 95 98 05/09/21 16:00 05/09/21 20:00 05/10/21 00:00 Temperature 36.7 C 36.7 C Pulse Rate 109 H 99 78 Respiratory Rate 16 16 Blood Pressure 118/54 L 109/56 L Pulse Oximetry 97 97 05/10/21 02:08 05/10/21 04:00 05/10/21 06:29 Temperature 36.2 C L 36.0 C L Pulse Rate 75 74 77 Respiratory Rate 16 16 Blood Pressure 104/53 L 100/60 Pulse Oximetry 100 99 05/10/21 08:00 05/10/21 08:20 05/10/21 08:34 Temperature Pulse Rate 106 H 98 99 Respiratory Rate 24 H 20 Blood Pressure Pulse Oximetry 97 97 Intake/Output Intake/Output: Intake & Output 05/07/21 05/08/21 05/09/21 05/10/21 23:59 23:59 23:59 23:59 Intake Total 3730 4300 2500 Output Total 1000 2100 1000 Balance 2730 2200 1500 Meds/Results Medications: Active Medications Generic Name Dose Route Start Last Admin Trade Name Freq PRN Reason Stop Dose Admin Acetaminophen 650 mg 05/08/21 01:38 Acetaminophen 325 Mg Tablet PO Q4H PRN Mild Pain (1-3) or Fever Albuterol 5 mg 05/08/21 02:00 05/10/21 08:23 Albuterol Sulfate Neb 2.5 Mg/0.5 Ml Inh INHALATION 5 mg Q6HRT DAILY Administration Albuterol 2 puff 05/08/21 04:08 05/09/21 12:01 Albuterol Sulfate (*Sp) Aerosol 1 Puff INHALATION 2 puff Q4H PRN Administration wheezing Alprazolam 0.5 mg 05/08/21 04:08 05/10/21 05:05 Alprazolam (*Crx) 0.5 Mg Tablet PO 0.5 mg Q6H PRN Administration Anxiety Escitalo
[2021-05-10 09:58] LABS: Basophils Percent Auto 0.1 % (0.2-1.2); Hematocrit 35.6 % (37.0-47.0); Hemoglobin 10.1 g/dL (12.0-15.0); Immature Granulocyte Absolute 0.13 K/mm3 (0.00-0.031); Immature Granulocyte Percent A 0.9 % (0-0.5); Lymphocytes Absolute Auto 0.28 K/mm3 (0.9-3.2); Lymphocytes Percent Auto 1.9 % (18.3-44.2); Mean Corpuscular HGB Conc 28.4 g/dl (32-36); Mean Corpuscular Hemoglobin 29.7 pg (26-34); Mean Corpuscular Volume 104.7 fl (80-100); Mean Platelet Volume 9.2 fl (7.4-10.4); Monocytes Absolute Auto 0.3 K/mm3 (0.1-0.6); Monocytes Percent Auto 1.7 % (2.6-8.5); Neutrophils Absolute Auto 13.8 K/mm3 (1.3-6.7); Neutrophils Percent Auto 95.4 % (45.5-73.1); Platelet Count Result 418 k/mm3 (150-375); Red Cell Distribution Width 13.8 % (11.5-14.5); White Blood Count 14.5 K/mm3 (4.5-10.0)
--- NOTE | 2021-05-10 11:24 | PM.IMPN ---
Progress Note: A&P Assessment and Plan (1) Acute exacerbation of chronic obstructive pulmonary disease: Code(s): J44.1 - Chronic obstructive pulmonary disease with (acute) exacerbation Status: Acute Assessment and Plan: Continue with duo nebs Pt is on home O2 3L cont SUPPLEMENTAL OXYGEN to keep sats >92% Continue steroids, taper does when necessary (2) Acute hypokalemia: Code(s): E87.6 - Hypokalemia Status: Acute Assessment and Plan: K+ 2.9-->3.0 today Will give 40 meq IVPB REPLACE NEEDED Monitor (3) Alcohol abuse: Code(s): F10.10 - Alcohol abuse, uncomplicated Status: Acute Assessment and Plan: CIWA protocol in place Supportive care Subjective Date/time seen: 05/10/21 11:24 Interval history: Pt continues with SOB and cough Review of Systems Review of Systems: All systems reviewed & are unremarkable except as noted in HPI and below Exam Const: General: comfortable, no acute distress, well developed, alert and awake Nutritional Appearance: underweight Orientation/consciousness: patient oriented x3 HENMT: Head: normal to inspection, normocephalic and atraumatic Ears: hearing grossly normal bilaterally and external ears normal Face and sinus: normal facial exam and face symmetric Mouth: Yes Normal oral and palatal mucosa present Eyes: General: appearance normal, both eyes and all related structures Pupils: Equal, round and reactive pupils present EOM: EOMs intact bilaterally Neck: Neck: full ROM, no lymphadenopathy, trachea midline and no JVD Thyroid: thyroid normal Lymphatic: no lymphadenopathy noted Chest: Chest palpation & inspection: normal inspection of the chest Resp: Effort & Inspection: normal respiratory effort and able to speak in complete sentences Auscultation: diminished lung sounds Cardio: Jugular venous distension: no JVD Rate: regular rate Rhythm: regular rhythm Heart sounds: S1 normal heart sound present and S2 normal heart sound present GI: Inspection: normal to inspection Auscultation: normal bowel sounds : General: Yes no CVA tenderness and Yes deferred Back/Spine/Pelvis: Back: no CVA tenderness Skin: General skin exam: normal color Rashes: no rashes Wounds: no wounds Neuro: General: patient oriented x3 and CN's II-XI intact bilaterally Cranial nerves: Yes CN's II-XII intact bilaterally and Yes Equal, round and reactive pupils present Cognition (Neuro): normal cognition Speech: normal speech Gait exam (Neuro): Normal gait present Motor exam (neuro): 5/5 motor strength present throughout Extrem: General: normal to inspection, full ROM, no joint enlargement and no pedal edema Psych: Appearance: grossly normal Affect: normal affect Judgement: Good judgement present (Psych) Objective Data Vital Signs Vital Signs: Vital Signs - 24 hr 05/10/21 12:00 05/10/21 12:15 05/10/21 14:00 Temperature 36.9 C Pulse Rate 119 H 121 H 96 Respiratory Rate 24 H 18 Blood Pressure 116/70 Pulse Oximetry 98 05/10/21 14:09 05/10/21 16:00 05/10/21 17:43 Temperature 36.9 C Pulse Rate 105 H 114 H 103 H Respiratory Rate 24 H 20 Blood Pressure 134/72 Pulse Oximetry 95 05/10/21 19:36 05/10/21 19:44 05/10/21 19:54 Temperature 36.9 C Pulse Rate 105 H 95 107 H Respiratory Rate 16 16 20 Blood Pressure 123/65 Pulse Oximetry 97 95 05/10/21 20:00 05/10/21 23:51 05/11/21 00:00 Temperature 36.2 C L Pulse Rate 108 H 93 89 Respiratory Rate 18 Blood Pressure 112/72 Pulse Oximetry 95 99 05/11/21 03:29 05/11/21 03:34 05/11/21 04:00 Temperature 36.3 C L Pulse Rate 78 77 98 Respiratory Rate 16 16 18 Blood Pressure 110/55 L Pulse Oximetry 96 05/11/21 08:23 05/11/21 08:26 05/11/21 08:34 Temperature Pulse Rate 93 94 Respiratory Rate 16 16 Blood Pressure Pulse Oximetry 93 05/11/21 08:40 05/11/21 10:00 Temperature 36.9 C Pulse Rate 78 101 H Respiratory Rate
[2021-05-10] MEDS: UMECLIDINIUM BROMIDE 62.5 MCG ELLIPTA 1 PUFF INHALATION (12:13)
[2021-05-10 15:11] LABS: Hematocrit 32.6 % (37.0-47.0); Hemoglobin 9.5 g/dL (12.0-15.0); Mean Corpuscular HGB Conc 29.1 g/dl (32-36); Mean Corpuscular Hemoglobin 30.5 pg (26-34); Mean Corpuscular Volume 104.8 fl (80-100); Mean Platelet Volume 9.3 fl (7.4-10.4); Platelet Count Result 406 k/mm3 (150-375); Red Blood Count 3.11 M/mm3 (4.2-5.4); Red Cell Distribution Width 13.8 % (11.5-14.5); White Blood Count 13.9 K/mm3 (4.5-10.0)
[2021-05-10 15:47] LABS: Blood Urea Nitrogen 8 mg/dL (7-17); Calcium 8.2 mg/dL (8.4-10.2); Carbon Dioxide > 40 mmol/L (22-30); Chloride 97 mmol/L (98-107); Estimated CRCL calculation 73 ml/min; Estimated Glomerular Filt Rate > 60; Glucose 250 mg/dL (65-110); Sodium 140 mmol/L (137-145)
[2021-05-10] MEDS: MONTELUKAST SODIUM 10 MG TABLET PO (21:48)
[2021-05-10] MEDS: MIRTAZAPINE 30 MG TABLET PO (21:48)
[2021-05-11] VITALS (20 sets, daily range): BP systolic 110–129; BP diastolic 55–73; PULSE 77–108; RESP 16–18; TEMP 36.2–36.9; O2SAT 93–97
[2021-05-11] MEDS: methylPREDNISolone SOD SUCC 125 MG VIAL 60 MG IV PUSH ×5 (00:56→23:19)
[2021-05-11] MEDS: ALPRAZolam (*CRX) 0.5 MG TABLET PO ×4 (00:56→20:32)
[2021-05-11] MEDS: ALBUTEROL SULFATE NEB 2.5 MG/0.5 ML INH 5 MG INHALATION ×4 (03:28→21:12)
[2021-05-11] MEDS: IPRATROPIUM BR 0.02% INH SOLN 0.5 MG/2.5 ML VIAL INHALATION ×4 (03:29→21:12)
[2021-05-11] MEDS: SODIUM CHLORIDE 0.9% IV 1,000 ML 125 ML IV CONT (05:50)
[2021-05-11] MEDS: metroNIDAZOLE 250 MG TABLET 500 MG PO ×3 (05:51→22:29)
[2021-05-11 06:00] LABS: Basophils Percent Auto 0.1 % (0.2-1.2); Hematocrit 31.9 % (37.0-47.0); Hemoglobin 9.3 g/dL (12.0-15.0); Immature Granulocyte Absolute 0.13 K/mm3 (0.00-0.031); Immature Granulocyte Percent A 1.4 % (0-0.5); Lymphocytes Absolute Auto 0.16 K/mm3 (0.9-3.2); Lymphocytes Percent Auto 1.7 % (18.3-44.2); Mean Corpuscular HGB Conc 29.2 g/dl (32-36); Mean Corpuscular Hemoglobin 30.3 pg (26-34); Mean Corpuscular Volume 103.9 fl (80-100); Mean Platelet Volume 9.3 fl (7.4-10.4); Monocytes Absolute Auto 0.3 K/mm3 (0.1-0.6); Monocytes Percent Auto 2.9 % (2.6-8.5); Neutrophils Absolute Auto 8.9 K/mm3 (1.3-6.7); Neutrophils Percent Auto 93.9 % (45.5-73.1); Platelet Count Result 380 k/mm3 (150-375); Red Blood Count 3.07 M/mm3 (4.2-5.4); Red Cell Distribution Width 13.6 % (11.5-14.5); White Blood Count 9.5 K/mm3 (4.5-10.0)
[2021-05-11 06:13] LABS: Anion Gap 2 mmol/L (8-16); Blood Urea Nitrogen 4 mg/dL (7-17); Carbon Dioxide 39 mmol/L (22-30); Chloride 98 mmol/L (98-107); Estimated CRCL calculation 93 ml/min; Estimated Glomerular Filt Rate > 60; Glucose 199 mg/dL (65-110); Potassium 3.5 mmol/L (3.4-5.0); Sodium 139 mmol/L (137-145)
[2021-05-11 06:33] LABS: Hypochromasia 3+ (NORMAL); Stomatocytes 2+ (NORMAL)
[2021-05-11] MEDS: UMECLIDINIUM BROMIDE 62.5 MCG ELLIPTA 1 PUFF INHALATION (08:23)
[2021-05-11] MEDS: ESCITALOPRAM OXALATE 10 MG TABLET 30 MG PO (08:54)
[2021-05-11] MEDS: FLUTICASONE/SALMETEROL 115-21 MCG INHALER 1 PUFF 2 PUFF INHALATION ×2 (08:56→21:12)
[2021-05-11 09:05] LABS: Glucose Point of Care 149 mg/dl (65-105)
--- NOTE | 2021-05-11 11:20 | PM.IMPN ---
Progress Note: A&P Assessment and Plan (1) Acute exacerbation of chronic obstructive pulmonary disease: Code(s): J44.1 - Chronic obstructive pulmonary disease with (acute) exacerbation Status: Acute Assessment and Plan: Continue with duo nebs Pt is on home O2 3L cont SUPPLEMENTAL OXYGEN to keep sats >92% Continue steroids, taper does when necessary (2) Acute hypokalemia: Code(s): E87.6 - Hypokalemia Status: Acute Assessment and Plan: Improved K+ 2.9-->3.0-->3.5 today S/p 40 meq IVPB REPLACE NEEDED Monitor (3) Alcohol abuse: Code(s): F10.10 - Alcohol abuse, uncomplicated Status: Acute Assessment and Plan: CIWA protocol in place Supportive care Subjective Date/time seen: 05/11/21 11:20 Interval history: Pt continues with SOB and cough; anxious about discharge Review of Systems Review of Systems: All systems reviewed & are unremarkable except as noted in HPI and below Exam Const: General: no acute distress, alert and awake Orientation/consciousness: patient oriented x3 HENMT: Head: normocephalic and atraumatic Ears: hearing grossly normal bilaterally and external ears normal Face and sinus: face symmetric Mouth: Yes Normal oral and palatal mucosa present Eyes: Pupils: Equal, round and reactive pupils present EOM: EOMs intact bilaterally Neck: Neck: full ROM, trachea midline and no JVD Thyroid: thyroid normal Chest: Chest palpation & inspection: normal inspection of the chest Resp: Effort & Inspection: normal respiratory effort Auscultation: diminished lung sounds Cardio: Jugular venous distension: no JVD Rate: regular rate Rhythm: regular rhythm Heart sounds: S1 normal heart sound present and S2 normal heart sound present GI: Inspection: normal to inspection GI Palp: Yes Soft to palpation Percussion: Yes normal to percussion Auscultation: normal bowel sounds : General: Yes no CVA tenderness Back/Spine/Pelvis: Back: no CVA tenderness Skin: General skin exam: normal color Rashes: no rashes Neuro: General: patient oriented x3 and CN's II-XI intact bilaterally Cranial nerves: Yes Equal, round and reactive pupils present Speech: normal speech Psych: Appearance: grossly normal Affect: normal affect Judgement: Good judgement present (Psych) Objective Data Vital Signs Vital Signs: Vital Signs - 24 hr 05/10/21 12:00 05/10/21 12:15 05/10/21 14:00 Temperature 36.9 C Pulse Rate 119 H 121 H 96 Respiratory Rate 24 H 18 Blood Pressure 116/70 Pulse Oximetry 98 05/10/21 14:09 05/10/21 16:00 05/10/21 17:43 Temperature 36.9 C Pulse Rate 105 H 114 H 103 H Respiratory Rate 24 H 20 Blood Pressure 134/72 Pulse Oximetry 95 05/10/21 19:36 05/10/21 19:44 05/10/21 19:54 Temperature 36.9 C Pulse Rate 105 H 95 107 H Respiratory Rate 16 16 20 Blood Pressure 123/65 Pulse Oximetry 97 95 05/10/21 20:00 05/10/21 23:51 05/11/21 00:00 Temperature 36.2 C L Pulse Rate 108 H 93 89 Respiratory Rate 18 Blood Pressure 112/72 Pulse Oximetry 95 99 05/11/21 03:29 05/11/21 03:34 05/11/21 04:00 Temperature 36.3 C L Pulse Rate 78 77 98 Respiratory Rate 16 16 18 Blood Pressure 110/55 L Pulse Oximetry 96 05/11/21 08:23 05/11/21 08:26 05/11/21 08:34 Temperature Pulse Rate 93 94 Respiratory Rate 16 16 Blood Pressure Pulse Oximetry 93 05/11/21 08:40 05/11/21 10:00 Temperature 36.9 C Pulse Rate 78 101 H Respiratory Rate 18 Blood Pressure 115/67 Pulse Oximetry 96 Intake/Output Intake/Output: Intake & Output 05/08/21 05/09/21 05/10/21 05/11/21 23:59 23:59 23:59 23:59 Intake Total 3730 4300 4220 2555 Output Total 1000 2100 2400 1550 Balance 2730 2200 1820 1005 Meds/Results Medications: Active Medications Generic Name Dose Route Start Last Admin Trade Name Leeanne PRN Reason Stop Dose Admin Acetaminophen 650 mg 05/08/21 01:38 Acetaminophen 325 Mg Table
[2021-05-11 13:14] LABS: Glucose Point of Care 199 mg/dl (65-105)
[2021-05-11 18:11] LABS: Glucose Point of Care 224 mg/dl (65-105)
[2021-05-11] MEDS: INSULIN ASPART (*BKC) 100 UNITS/ML SUB-Q (18:26)
[2021-05-11] MEDS: MIRTAZAPINE 30 MG TABLET PO (20:32)
[2021-05-11] MEDS: MONTELUKAST SODIUM 10 MG TABLET PO (20:32)
[2021-05-11 23:28] LABS: Glucose Point of Care 248 mg/dl (65-105)
[2021-05-12] VITALS (11 sets, daily range): BP systolic 101–123; BP diastolic 53–74; PULSE 83–112; RESP 16–18; TEMP 36.6–36.7; O2SAT 93–98
[2021-05-12] MEDS: ALBUTEROL SULFATE NEB 2.5 MG/0.5 ML INH 5 MG INHALATION ×2 (03:08→08:54)
[2021-05-12] MEDS: IPRATROPIUM BR 0.02% INH SOLN 0.5 MG/2.5 ML VIAL INHALATION ×2 (03:09→08:54)
[2021-05-12] MEDS: ALPRAZolam (*CRX) 0.5 MG TABLET PO ×2 (03:23→10:03)
[2021-05-12] MEDS: methylPREDNISolone SOD SUCC 125 MG VIAL 60 MG IV PUSH ×2 (06:35→12:10)
[2021-05-12] MEDS: metroNIDAZOLE 250 MG TABLET 500 MG PO (06:35)
[2021-05-12 08:24] LABS: Hematocrit 36.6 % (37.0-47.0); Hemoglobin 10.2 g/dL (12.0-15.0); Mean Corpuscular HGB Conc 27.9 g/dl (32-36); Mean Corpuscular Hemoglobin 30.4 pg (26-34); Mean Corpuscular Volume 108.9 fl (80-100); Mean Platelet Volume 9.5 fl (7.4-10.4); Platelet Count Result 421 k/mm3 (150-375); Red Blood Count 3.36 M/mm3 (4.2-5.4); Red Cell Distribution Width 13.7 % (11.5-14.5)
[2021-05-12] MEDS: ESCITALOPRAM OXALATE 10 MG TABLET 30 MG PO (08:30)
[2021-05-12 08:37] LABS: Glucose Point of Care 109 mg/dl (65-105)
[2021-05-12] MEDS: FLUTICASONE/SALMETEROL 115-21 MCG INHALER 1 PUFF 2 PUFF INHALATION (08:55)
[2021-05-12] MEDS: UMECLIDINIUM BROMIDE 62.5 MCG ELLIPTA 1 PUFF INHALATION (08:55)
--- NOTE | 2021-05-12 11:03 | PM.DS ---
DS: Admitting Diagnosis Admitting Diagnosis COPD exacerbation DS: Discharge Diagnosis Discharge Diagnosis (1) Acute exacerbation of chronic obstructive pulmonary disease: Code(s): J44.1 - Chronic obstructive pulmonary disease with (acute) exacerbation Status: Acute Assessment and Plan: patient was discharged home with nebulizers inhalers continue with home oxygen at 3 L she was also discharged with prednisone taper (2) Acute hypokalemia: Code(s): E87.6 - Hypokalemia Status: Acute Assessment and Plan: Improved K+ 2.9-->3.0-->3.5 (3) Alcohol abuse: Code(s): F10.10 - Alcohol abuse, uncomplicated Status: Acute Assessment and Plan: educated on cessation DS: Summary Hospital Course Reason for hospitalization: shortness of breath Hospital Course: THIS IS A 55-YEAR-OLD FEMALE WITH PAST MEDICAL HISTORY SIGNIFICANT FOR COPD /EMPHYSEMA, ALCOHOL DEPENDENCE, TOBACCO DEPENDENCE. PATIENT HAD BEEN SEEN IN THE EMERGENCY ROOM WHEN SHE PRESENTED WITH NAUSEA VOMITING ABDOMINAL PAIN AND DIARRHEA SHE WAS TREATED AND DISCHARGED HOME ,SHE RETURNED FOR WORSENING SHORTNESS OF BREATH. as inpatient patient received Solu-Medrol and breathing treatment. Patient notes that her condition has much improved since her admission. She agrees that she is ready for discharge. She will discharge home today and follow-up with her primary care physician in 1-2 weeks. Patient denies cp, sob, palpitation, diarrhea, constipation, lightheadness, headache, dizziness or chills and fevers. Time spent discussing smoking cessation with patient: more than 10 minutes ( 60 minutes) Time Spent with Patient Time attestation: Total time spent providing and/or coordinating discharge services: Exam Narrative: Exam Narrative: General: A well-developed, well-nourished male sitting up in bed no acute distress. HEENT: Normocephalic, atraumatic. PERRL, EOMI. Sclerae anicteric. Oral mucosa moist. Oropharynx clear. Neck: Supple. Respiratory: diminished Cardiovascular: Regular rate and rhythm with S1-S2. Gastrointestinal: Abdomen is soft, nontender, and nondistended with positive bowel sounds. No organomegaly. Skin: Warm, dry, and slightly pale.. No rash or lesions on limited exam. Extremities: No cyanosis, clubbing, or edema. Radial and pedal pulses intact. Neurological: Alert. Cranial nerves 2-12 are grossly intact. No gross focal deficits to casual conversation. Psychiatric: Pleasant and cooperative with normal mood and affect. Judgment and insight intact. DS: Data Data Completed and Pending Labs on day of discharge: Labs from last 24 hours 05/12/21 05/12/21 05/11/21 08:35 08:19 23:23 WBC 12.0 H RBC 3.36 L Hgb 10.2 L Hct 36.6 L MCV 108.9 H MCH 30.4 MCHC 27.9 L RDW 13.7 Plt Count 421 H MPV 9.5 POC Capillary Glucose 109 H 248 H 05/11/21 05/11/21 18:08 12:19 WBC RBC Hgb Hct MCV MCH MCHC RDW Plt Count MPV POC Capillary Glucose 224 H 199 H Discharge Plan Discharge Attending physician on discharge: Dion Haro Discharging Clinician: Ang Mercado Anticipated Discharge Date/Time: 05/12/21 10:44 Patient Disposition: Home Health Service Activity: as tolerated Diet: heart healthy Discharge Instructions: Follow up with primary care physician in 1-2 weeks. Take medication as prescribed. What are the symptoms of COPD? - At first, COPD often causes no symptoms. As it gets worse it can make you: Feel short of breath, especially when you are moving around Wheeze (make a whistling or squeaking noise as you breathe) Cough and spit up phlegm (mucus) People who have had COPD for a while are also at increased risk for: Infections, such as pneumonia Lung cancer Heart problems Patient Instructions: Antibiotic Form, COPD (Chronic Obstructive Pulmonary Disease) (DC) Stand Alone F
[2021-05-12 12:22] LABS: Glucose Point of Care 161 mg/dl (65-105)
== END 2021-05-12 14:05 | disposition home or self-care (01) | DRG 191 ==
LOC: ANHED 23:48 → ANH2MED 05-08 12:56
PROVIDERS: Nurse Practitioner; Admitting Provider Internal Medicine; Emergency Provider Family Medicine; PCP Family Medicine; Visit Provider Nurse Practitioner Adult Health
DX: J43.9 Emphysema, unspecified (principal); J96.10 Chronic respiratory failure, unspecified whether with hypoxia or hypercapnia; E87.6 Hypokalemia; D51.9 Vitamin B12 deficiency anemia, unspecified; F41.9 Anxiety disorder, unspecified; K21.9 Gastro-esophageal reflux disease without esophagitis; E55.9 Vitamin D deficiency, unspecified; F10.10 Alcohol abuse, uncomplicated; Z87.891 Personal history of nicotine dependence
CPT/HCPCS: 36415; 36600; 71045; 74177; 80048; 80053; 81003; 82805; 82948; 83605; 83690; 83880; 84484; 85025; 85027; 85380; 85610; 93005; 94640; 96361; 96374; 96375; A9270; J1815; J2060; J2405; J2930; J3480; J7030; Q9967

== ENCOUNTER 2021-08-02 21:52 | Emergency (ER) | payer MEDICARE, MEDICAID, SELFPAY ==
--- NOTE | ~2021-08-02 | XR_ITS ---
EXAMINATION: XR chest 1V portable DATE: 08/02/2021 22:20 INDICATION: Shortness of breath and cough. TECHNIQUE: A single frontal view of the chest was obtained. COMPARISON: Chest single view 05/08/2021, 04/10/2021, chest CT 04/10/2021 FINDINGS: The lungs are hyperexpanded with lucencies, consistent with emphysema. There are staple ramila es in the lungs bilaterally. There are scattered airspace and interstitial opacities throughout the l ungs bilaterally with architectural distortion. No pleural effusion or pneumothorax. The heart size i s normal. There is an old healed left rib fracture. IMPRESSION: 1. Diffuse lung disease with improvement from 05/08/2021, consistent with severe emphysema and multifo damari scarring. Mild airspace opacities in left mid and lower lung zones remain worsened from 04/10/2021 , consistent with atelectasis versus pneumonia. Reviewed, dictated and finalized at location A. IMPRESSION: 1. Diffuse lung disease with improvement from 05/08/2021, consistent with severe emphysema and multifocal scarring. Mild airspace opacities in left mid and low er lung zones remain worsened from 04/10/2021, consistent with atelectasis versu s pneumonia.
[2021-08-02 21:51] VITALS: BP 126/87; PULSE 103; RESP 22; TEMP 37.1; O2SAT 100
[2021-08-02 22:00] VITALS: O2SAT 100
--- NOTE | 2021-08-02 22:08 | ECG_ITS ---
Measurements Intervals [place] Rate: 104 P: 86 [place]: 130 QRS: 47 QRSD: 93 T: 78 QT: 334 QTc: 440 Interpretive Statements SINUS TACHYCARDIA MINIMAL Q WAVES- INFERIOR LEADS MINIMAL Q WAVES- ANTEROLATERAL LEADS BASELINE ARTIFACT- V4-V5 BORDERLINE ECG Electronically Signed On 08-03-2021 6:18:23 CDT by Quinton Bell D.O.
--- NOTE | 2021-08-02 22:13 | ED.SOB ---
HPI - SOB/Dyspnea General Chief Complaint: Shortness of Breath/Dyspnea Stated Complaint: SOB Time Seen by Provider: 08/02/21 21:54 Source: patient, EMS and RN notes reviewed Mode of arrival: EMS Limitations: no limitations History of Present Illness HPI Narrative: This is a a 55 year old female with history of chronic respiratory failure, home oxygen 5 L NC, COPD who presents for evaluation of shortness of breath. She reports she has been feeling she has had the flu for 2 days. She reports body ache, cough, subjective fever, chills and shortness of breath. Her shortness of breath worsened tonight so she called EMS. She was given neb treatment in route and she states she feels better. She denies chest pain, diarrhea, chest pain or abdominal pain. She uses rescue inhaler at home with her oxygen and she is unsure of nebulizer use at home. Related Data Home Medications Medication Instructions Recorded Confirmed escitalopram oxalate 30 mg PO DAILY 11/15/19 05/08/21 alprazolam 0.5 mg PO Q6H PRN 01/15/21 05/08/21 mirtazapine 30 mg PO HS 02/08/21 05/08/21 Allergies Allergy/AdvReac Type Severity Reaction Status Date / Time No Known Allergies Allergy Verified 08/02/21 22:05 Review of Systems Review of Systems: All systems reviewed & are unremarkable except as noted in HPI and below PMFSH Past Medical History Medical History Abnormal EKG EKG has previously shown ST elevation which appears to be early repolarization. Alcohol abuse Anorexia Anxiety Asthma B12 deficiency anemia Chronic anemia Chronic respiratory failure with hypoxia and hypercapnia COPD with emphysema Gastroesophageal reflux disease Generalized anxiety disorder with panic attacks Spontaneous pneumothorax (~08/2012) Several pneumothoraces status post VATS procedure and apical blebectomy as well as pleurodesis. Tobacco abuse Vitamin D deficiency Surgical History Surgical History History of bilateral tubal ligation History of History of hip surgery (~07/2019) ORIF of right hip fracture. History of tonsillectomy Status post thoracotomy Left-sided VATS procedure and apical bleb resection with pleurodesis. Family History Family History Father Acute myocardial infarction Father No problems noted. Unknown No problems noted. Mother No problems noted. Sibling No problems noted. Social History Social History Social History: The patient lives with her 16-year-old son in [place]. She has 2 other sons who are grown out of the home. 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 She is a former smoker but cannot tell me when she quit smoking cigarettes. She smoked as many as 2 packs of cigarettes per day. She has significantly cut back in her drinking. She denies illicit substance use. Her son Lino Foote and ex- Neo are her surrogate decision maker and she wishes to be a full code. Smoking packs per day: 1.5 Smoking cigarettes per day: 30.0 Years smoked: 35 Smoking pack-years: 52.50 Smoking status: Former smoker Tobacco type: cigarettes Second hand tobacco smoke exposure: Yes Smoking end date: 03/19/20 Additional smoking assessment comments: Patient states she no longer smokes but can't say when she quit Alcohol intake: never Drinks per week: 4 Substance use: never Substance use type: marijuana Last use: 08/03/2020 Additional living arrangements comments: Lives with her 16-year-old son. Gender identity (if verbalized by the patient): Female Spiritual care concerns: No Agree to blood products: Yes Exam Const: General: no acute distress and alert Nutritional Appearance: thin Orientation/consciousness: pat
[2021-08-02 22:30] LABS: Basophils Percent Auto 0.3 % (0.2-1.2); Eosinophils Percent Auto 0.2 % (0-4.4); Hematocrit 38.2 % (37.0-47.0); Hemoglobin 11.8 g/dL (12.0-15.0); Immature Granulocyte Absolute 0.01 K/mm3 (0.00-0.031); Immature Granulocyte Percent A 0.1 % (0-0.5); Lymphocytes Absolute Auto 0.81 K/mm3 (0.9-3.2); Lymphocytes Percent Auto 9.2 % (18.3-44.2); Mean Corpuscular HGB Conc 30.9 g/dl (32-36); Mean Corpuscular Hemoglobin 31.3 pg (26-34); Mean Corpuscular Volume 101.3 fl (80-100); Mean Platelet Volume 8.8 fl (7.4-10.4); Monocytes Absolute Auto 0.6 K/mm3 (0.1-0.6); Monocytes Percent Auto 6.9 % (2.6-8.5); Neutrophils Absolute Auto 7.4 K/mm3 (1.3-6.7); Neutrophils Percent Auto 83.3 % (45.5-73.1); Platelet Count Result 323 k/mm3 (150-375); Red Blood Count 3.77 M/mm3 (4.2-5.4); Red Cell Distribution Width 12.4 % (11.5-14.5); White Blood Count 8.8 K/mm3 (4.5-10.0)
[2021-08-02] MEDS: ALBUTEROL SULFATE NEB 2.5 MG/0.5 ML INH 5 MG INHALATION (22:32)
[2021-08-02] MEDS: IPRATROPIUM BR 0.02% INH SOLN 0.5 MG/2.5 ML VIAL INHALATION (22:32)
[2021-08-02 22:44] LABS: Lactic Acid Reflex 2.2 mmol/L (0.7-2.1)
[2021-08-02 22:47] VITALS: PULSE 109; RESP 16
[2021-08-02] MEDS: predniSONE 20 MG TABLET 40 MG PO (22:49)
[2021-08-02] MEDS: ALPRAZolam (*CRX) 0.25 MG TABLET 0.5 MG PO (22:49)
[2021-08-02 22:53] LABS: Alveolar/Arterial O2 Gradient 111.7 mmHg; Base Excess ABG 15.9 mEq/l (+/-2.0); Carboxyhemoglobin 0.1 % THb (0-2.0); Fractional Inspired Oxygen 36 %; HCO3 ABG 43.8 mEq/l (22.0-26.0); Methemoglobin ABG 0.3 %THb (0-1.5); Oxygen Content ABG 15.8 %vol (16.0-22.0); Oxygen Saturation ABG 91.3 % (95.0-100.0); Oxyhemoglobin 91.5 % THb (90.0-100.0); PO2 ABG 62.9 mmHg (80.0-100.0); PO2 FiO2 Ratio Arterial Blood 1.75 %; Reduced Hemoglobin 8.1 %THb (0-5.0); Total Hemoglobin 12.3 g/dL (12.0-18.0); pH ABG 7.409 (7.350-7.450)
[2021-08-02 22:56] LABS: Device NASAL CANNULA; Modified Allen's Test Pass; PCO2 ABG 70.8 mmHg (35.0-45.0); Site Drawn LEFT RADIAL
[2021-08-02 22:57] LABS: Alanine Aminotransferase 9 U/L (4-35); Albumin Level 4.2 g/dL (3.5-5.1); Alkaline Phosphatase 90 U/L (38-126); Aspartate Amino Transferase 19 U/L (14-36); Bilirubin,Total 0.3 mg/dL (0.2-1.3); Blood Urea Nitrogen 14 mg/dL (7-17); CRP < 0.5 mg/dL (<1.0); Calcium 9.1 mg/dL (8.4-10.2); Carbon Dioxide > 40 mmol/L (22-30); Chloride 90 mmol/L (98-107); Estimated Glomerular Filt Rate > 60; Glucose 163 mg/dL (65-110); Potassium 2.9 mmol/L (3.4-5.0); Sodium 140 mmol/L (137-145)
[2021-08-02 22:58] LABS: D Dimer 0.27 ug/mL (<0.48)
[2021-08-02 23:01] VITALS: PULSE 121; RESP 16
[2021-08-02 23:03] LABS: Troponin I < 0.012 ng/mL (0.000-0.034)
[2021-08-02 23:25] LABS: Add Urine Microscopic? YES; Appearance Urine Clear (Clear); Bilirubin Urine Negative (Negative); Blood Urine Negative (Negative); Color Urine Yellow (Yellow); Glucose Urine UA Negative (Negative); Ketones Urine Negative (Negative); Leukocyte Esterase Ur Negative LEU/UL (Negative); Mucus Urine Heavy /lpf; Nitrate Urine Negative (Negative); Protein Urine 1+ mg/dL (Negative); RBC Urine 0-2 /hpf (0-2); Specific Grav Ur 1.023 (1.001-1.035); Squamous Epithelial Cell Urine Rare /hpf (Few); Urobilinogen Urine Negative mg/dL (<2.0)
[2021-08-03] VITALS (8 sets, daily range): BP systolic 97–110; BP diastolic 62–69; PULSE 73–108; RESP 21–28; O2SAT 96–100
[2021-08-03] MEDS: POTASSIUM CHLORIDE 20 MEQ TABLET 40 MEQ PO (00:03)
[2021-08-03 01:28] LABS: Reflex Lactic Acid Yes or No Add Lactic
[2021-08-03 01:55] LABS: Lactic Acid 1.3 mmol/L (0.7-2.1); Magnesium 1.7 mg/dL (1.6-2.3)
--- NOTE | 2021-08-03 02:47 | PC.NURSE ---
This RN attempted to call pts son, Liam, for ride home from ED. No answer.
--- NOTE | 2021-08-03 02:56 | PC.NURSE ---
This RN contacted pts son, Lino, who stated he can come get pt from ED and transport her home.
--- NOTE | 2021-08-03 05:07 | PC.NURSE ---
This RN attempted to contact pts son, Lino, to follow up on when he will arrive to peanut picker pt. No answer, and unable to leave voice message.
--- NOTE | 2021-08-03 10:25 | PC.NURSE ---
patient transported back to home by EMS due to oxygen requirement
[2021-08-03 17:03] LABS: SARS-CoV-2 RNA PCR Negative
== END 2021-08-03 10:27 | disposition home or self-care (01) ==
PROVIDERS: Emergency Provider General Practice; PCP Family Medicine
DX: J44.1 Chronic obstructive pulmonary disease with (acute) exacerbation (principal); Z20.822 Contact with and (suspected) exposure to COVID-19; J96.12 Chronic respiratory failure with hypercapnia; J96.11 Chronic respiratory failure with hypoxia; Z99.81 Dependence on supplemental oxygen; K21.9 Gastro-esophageal reflux disease without esophagitis; E55.9 Vitamin D deficiency, unspecified; D51.9 Vitamin B12 deficiency anemia, unspecified; F41.1 Generalized anxiety disorder; Z87.891 Personal history of nicotine dependence; R00.0 Tachycardia, unspecified; R94.31 Abnormal electrocardiogram [ECG] [EKG]
CPT/HCPCS: 36415; 36600; 71045; 80053; 81001; 82375; 82805; 83050; 83605; 83735; 84484; 85025; 85380; 86140; 87086; 87804; 93005; 94640; 99283; A9270; C9803; J7512; U0003; U0005

== ENCOUNTER 2021-08-20 15:09 | Inpatient (IN) | payer MEDICARE, MEDICAID, SELFPAY ==
[2021-08-20] VITALS (13 sets, daily range): BP systolic 106–120; BP diastolic 66–84; PULSE 102–113; RESP 20–30; TEMP 36.1–36.3; O2SAT 89–100; BMI 15.1
--- NOTE | ~2021-08-20 | XR_ITS ---
EXAMINATION: XR chest 2V DATE: 08/20/2021 15:47 INDICATION: Shortness of breath TECHNIQUE: AP and lateral views of the chest are obtained. COMPARISON: 08/02/2021 FINDINGS: There are surgical changes in the upper lung zones. The lungs are free of acute opacities. There is no pleural effusion or pneumothorax. There are areas of stable scarring in the left midlung zone. The cardiomediastinal silhouette is normal. There is a chronic T6 burst fracture. Healed left-s ided rib fractures are noted. IMPRESSION: 1. No acute cardiopulmonary abnormality. Reviewed, dictated and finalized at location B.
--- NOTE | ~2021-08-20 | XR_ITS ---
EXAMINATION: XR chest 1V portable INDICATION: Respiratory failure TECHNIQUE: Portable AP chest at 0853 hours COMPARISON: 08/20/2021 FINDINGS: Again noted are surgical changes in the upper lung zones. No acute airspace opacities are i dentified. There is no pleural effusion or pneumothorax. The cardiomediastinal silhouette is stable. Scarring is noted in the left midlung zone. There are healed left-sided rib fractures. IMPRESSION: 1. No acute cardiopulmonary abnormality. Reviewed, dictated and finalized at location B.
--- NOTE | 2021-08-20 15:12 | ECG_ITS ---
Measurements Intervals [place] Rate: 104 P: 81 CO: 128 QRS: 76 QRSD: 78 T: 84 QT: 324 QTc: 427 Interpretive Statements SINUS TACHYCARDIA MINIMAL Q WAVES- ANTEROLAT/INF LEADS BORDERLINE T WAVE ABNORMALITY- HIGH LATERAL LEADS BASELINE ARTIFACT- I, II, III, AVR, AVL, AVF, V1 BORDERLINE ECG Electronically Signed On 08-20-2021 15:19:59 CDT by Quinton Bell D.O.
[2021-08-20 15:34] LABS: Basophils Absolute Auto 0.1 K/mm3 (0.0-0.1); Basophils Percent Auto 0.9 % (0.2-1.2); Eosinophils Absolute Auto 0.2 K/mm3 (0-0.3); Eosinophils Percent Auto 3.1 % (0-4.4); Hematocrit 40.1 % (37.0-47.0); Immature Granulocyte Absolute 0.01 K/mm3 (0.00-0.031); Immature Granulocyte Percent A 0.2 % (0-0.5); Lymphocytes Absolute Auto 0.88 K/mm3 (0.9-3.2); Mean Corpuscular HGB Conc 29.9 g/dl (32-36); Mean Corpuscular Hemoglobin 31.6 pg (26-34); Mean Corpuscular Volume 105.5 fl (80-100); Mean Platelet Volume 8.7 fl (7.4-10.4); Monocytes Absolute Auto 0.4 K/mm3 (0.1-0.6); Neutrophils Absolute Auto 3.9 K/mm3 (1.3-6.7); Neutrophils Percent Auto 71.8 % (45.5-73.1); Platelet Count Result 308 k/mm3 (150-375); Red Cell Distribution Width 12.2 % (11.5-14.5); White Blood Count 5.5 K/mm3 (4.5-10.0)
[2021-08-20 15:51] LABS: Blood Urea Nitrogen 11 mg/dL (7-17); Calcium 9.4 mg/dL (8.4-10.2); Carbon Dioxide > 40 mmol/L (22-30); Chloride 90 mmol/L (98-107); Estimated CRCL calculation 68 ml/min; Estimated Glomerular Filt Rate > 60; Glucose 105 mg/dL (65-110); Potassium 4.5 mmol/L (3.4-5.0); Sodium 140 mmol/L (137-145)
--- NOTE | 2021-08-20 17:14 | PC.NURSE ---
Pt. to front of house manager reporting her O2 tank is low. pt. reports she brought a second tank w/ her. pt. wheeled to ed via cardio pulmonary and did not have second o2 tank. cardiopulmonary contacted and no answer.
--- NOTE | 2021-08-20 17:54 | PC.NURSE ---
Pt states she is having a COPD episode and is on o2 at home, didnt know exactly when episode started
--- NOTE | 2021-08-20 18:08 | ED.GENADULT ---
HPI - General Adult General Chief complaint: Shortness of Breath/Dyspnea Stated complaint: COPD Time Seen by Provider: 08/20/21 17:33 Source: patient and RN notes reviewed History of Present Illness HPI narrative: Patient is a 55 y/o female complaining of moderate SOB for last 2 days. She states that anxiety makes her SOB worse. She has some cough, but fever or chest pain. She was seen in gravity prospector's office earlier today and sent here for evaluation. Related Data Home Medications Medication Instructions Recorded Confirmed escitalopram oxalate 30 mg PO DAILY 11/15/19 08/20/21 alprazolam 0.5 mg PO Q6H PRN 01/15/21 08/20/21 mirtazapine 30 mg PO HS 02/08/21 08/20/21 Allergies Allergy/AdvReac Type Severity Reaction Status Date / Time No Known Allergies Allergy Verified 08/20/21 14:24 Review of Systems Constitutional: Constitutional: Denies chills, Denies fever(s), Denies headache(s) and Denies weakness Eyes: Eyes: Denies blurry vision ENT: Denies headache(s) and Denies neck pain Cardiovascular: Cardiovascular: Denies chest pain and Denies dyspnea Respiratory: Respiratory: Reports cough and Reports dyspnea Gastrointestinal: Gastrointestinal: Denies abdominal pain, Denies diarrhea, Denies nausea and Denies vomiting Genitourinary: Genitourinary: Denies hematuria and Denies dysuria Musculoskeletal: Musculoskeletal: Denies back pain and Denies neck pain Neurologic: Denies headache(s) and Denies weakness PMFSH Past Medical History Medical History Abnormal EKG EKG has previously shown ST elevation which appears to be early repolarization. Alcohol abuse Anorexia Anxiety Asthma B12 deficiency anemia Chronic anemia Chronic respiratory failure with hypoxia and hypercapnia COPD with emphysema Gastroesophageal reflux disease Generalized anxiety disorder with panic attacks Spontaneous pneumothorax (~08/2012) Several pneumothoraces status post VATS procedure and apical blebectomy as well as pleurodesis. Tobacco abuse Vitamin D deficiency Surgical History Surgical History History of bilateral tubal ligation History of History of hip surgery (~07/2019) ORIF of right hip fracture. History of tonsillectomy Status post thoracotomy Left-sided VATS procedure and apical bleb resection with pleurodesis. Family History Family History Father Acute myocardial infarction Father No problems noted. Unknown No problems noted. Mother No problems noted. Sibling No problems noted. Social History Social History Social History: The patient lives with her 16-year-old son in [place]. She has 2 other sons who are grown out of the home. 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 She is a former smoker but cannot tell me when she quit smoking cigarettes. She smoked as many as 2 packs of cigarettes per day. She has significantly cut back in her drinking. She denies illicit substance use. Her son Lino Foote and ex- Neo are her surrogate decision maker and she wishes to be a full code. Smoking packs per day: 1.5 Smoking cigarettes per day: 30.0 Years smoked: 35 Smoking pack-years: 52.50 Smoking status: Former smoker Tobacco type: cigarettes Second hand tobacco smoke exposure: Yes Smoking end date: 03/19/20 Additional smoking assessment comments: Patient states she no longer smokes but can't say when she quit Alcohol intake: never Drinks per week: 4 Substance use: never Substance use type: marijuana Last use: 08/03/2020 Additional living arrangements comments: Lives with her 16-year-old son. Gender identity (if verbalized by the patient): Female Spiritual care concerns: No Agree to blood products: Y
[2021-08-20 18:09] LABS: Base Excess ABG 23.2 mEq/l (+/-2.0); Fractional Inspired Oxygen 40 %; HCO3 ABG 57.7 mEq/l (22.0-26.0); Oxygen Content ABG 17.1 %vol (16.0-22.0); Oxyhemoglobin 97.9 % THb (90.0-100.0); PO2 ABG 208.8 mmHg (80.0-100.0); PO2 FiO2 Ratio Arterial Blood 5.22 %; Total Hemoglobin 12.1 g/dL (12.0-18.0)
[2021-08-20 18:10] LABS: PCO2 ABG 149.6 mmHg (35.0-45.0); pH ABG 7.204 (7.350-7.450)
[2021-08-20 18:11] LABS: Device NASAL CANNULA; Modified Allen's Test Pass; Site Drawn RIGHT RADIAL
[2021-08-20] MEDS: ALBUTEROL SULFATE NEB 2.5 MG/3 ML INH 1.25 MG INHALATION (18:21)
[2021-08-20] MEDS: IPRATROPIUM BR 0.02% INH SOLN 0.5 MG/2.5 ML VIAL 1 MG INHALATION (18:21)
[2021-08-20] MEDS: methylPREDNISolone SOD SUCC 125 MG VIAL IV PUSH (18:43)
--- NOTE | 2021-08-20 19:14 | PC.NURSE ---
Assumed care of pt, pt is alert and upright - states she is unable to tolerate her bipap due to it is uncomfortable. Educated and encouraged pt to keep BIPAP on. Unable to keep O2 sat in place for accurate reading - shows 90% w/ poor pleath.
[2021-08-20 19:41] LABS: Alveolar/Arterial O2 Gradient 41.7 mmHg; Base Excess ABG 17.7 mEq/l (+/-2.0); Fractional Inspired Oxygen 30 %; HCO3 ABG 48.7 mEq/l (22.0-26.0); Oxyhemoglobin 84.5 % THb (90.0-100.0); PO2 ABG 50.5 mmHg (80.0-100.0); PO2 FiO2 Ratio Arterial Blood 1.68 %; Total Hemoglobin 11.8 g/dL (12.0-18.0)
[2021-08-20 19:43] LABS: PCO2 ABG 103.6 mmHg (35.0-45.0)
[2021-08-20 19:44] LABS: Device BIPAP; Modified Allen's Test Pass; Oxygen Saturation ABG 78.2 % (95.0-100.0); Site Drawn RIGHT RADIAL
[2021-08-20 19:45] LABS: Expiratory Pressure 6 cmH2O; Inspiratory Pressure 12 cmH2O
--- NOTE | 2021-08-20 22:45 | ADMGEN ---
This patient, Esther Brink, was admitted to IMU Room 204-01. Patient/family oriented to hospital policies and general routines including ID bracelet, bed and alarms, visiting hours, pain management, procedures, bathroom and other care routines, personal items, smoking policy, room service/diet, and visiting hours. Information on how to activate the Rapid Response Team has been discussed. Patient/Family are encouraged to report perceived risks to care and to ask questions if they do not understand what they are told or what they should do.
--- NOTE | 2021-08-20 23:12 | PM.IMHP ---
H&P: HPI History of Present Illness Date/Time: 08/20/21 23:12 Chief Complaint: Shortness of breath Narrative: This is a 55-year-old female with past medical history significant for chronic hypoxic and hypercarbic respiratory failure on supplemental oxygen, COPD/emphysema severe, history of life support, multiple admissions to the hospital for respiratory failure and worsening shortness of breath. Today patient presented to the emergency room due to worsening shortness of breath, fatigue, somnolence. Patient had been seen earlier at the supervisor sewing department's office. At the time of my visit patient was laying in gurney on BiPAP most of the history has been obtained upon reviewing medical records and past and current data. Preliminary workup was significant for chest x-ray with hyperinflation, an ABG showed a pH of 7.29 a pCO2 of 160 and a PO2 of 50. Patient was placed on BiPAP and has been admitted for further management evaluation and treatment. Review of Systems Review of Systems: ROS unobtainable: Yes unobtainable due to medical condition (Respiratory failure on BiPAP) [facility] Past Medical History Medical History Abnormal EKG EKG has previously shown ST elevation which appears to be early repolarization. Alcohol abuse Anorexia Anxiety Asthma B12 deficiency anemia Chronic anemia Chronic respiratory failure with hypoxia and hypercapnia COPD with emphysema Gastroesophageal reflux disease Generalized anxiety disorder with panic attacks Spontaneous pneumothorax (~08/2012) Several pneumothoraces status post VATS procedure and apical blebectomy as well as pleurodesis. Tobacco abuse Vitamin D deficiency Surgical History Surgical History History of bilateral tubal ligation History of History of hip surgery (~07/2019) ORIF of right hip fracture. History of tonsillectomy Status post thoracotomy Left-sided VATS procedure and apical bleb resection with pleurodesis. Family History Family History Father Acute myocardial infarction Father No problems noted. Unknown No problems noted. Mother No problems noted. Sibling No problems noted. Social History Social History Social History: The patient lives with her 16-year-old son in [place]. She has 2 other sons who are grown out of the home. 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 She is a former smoker but cannot tell me when she quit smoking cigarettes. She smoked as many as 2 packs of cigarettes per day. She has significantly cut back in her drinking. She denies illicit substance use. Her son Lino Foote and ex- Neo are her surrogate decision maker and she wishes to be a full code. Smoking packs per day: 1.5 Smoking cigarettes per day: 30.0 Years smoked: 35 Smoking pack-years: 52.50 Smoking status: Former smoker Second hand tobacco smoke exposure: Yes Additional smoking assessment comments: Patient states she no longer smokes but can't say when she quit Alcohol intake: current Drinks per week: 3 Substance use: former Substance use type: marijuana Last use: 08/03/2020 Additional living arrangements comments: Lives with her 16-year-old son. Gender identity (if verbalized by the patient): Female Spiritual care concerns: No Agree to blood products: Yes Meds Home Medications and Allergies Home Medications Medication Instructions Recorded Confirmed Type escitalopram oxalate 30 mg PO DAILY 11/15/19 08/20/21 History alprazolam 0.5 mg PO Q6H PRN 01/15/21 08/20/21 History albuterol sulfate 2 puff INHALATION Q4H PRN #1 g 05/12/21 08/20/21 Rx albuterol sulfate 5 mg INHALATION Q6HRT #30 ea 05/12/21 08/20/21 Rx ipratropium bromide 0.5 mg INHALATION Q6HRT #75 ml
[2021-08-21] VITALS (24 sets, daily range): BP systolic 92–128; BP diastolic 56–79; PULSE 81–118; RESP 12–25; TEMP 36.3–37.3; O2SAT 93–100; BMI 15.1
[2021-08-21] MEDS: methylPREDNISolone SOD SUCC 40 MG VIAL IV PUSH ×2 (06:01→12:48)
[2021-08-21] MEDS: ALBUTEROL SULFATE NEB 2.5 MG/0.5 ML INH 5 MG INHALATION ×3 (08:27→20:01)
[2021-08-21] MEDS: FLUTICASONE/SALMETEROL 115-21 MCG INHALER 1 PUFF 2 PUFF INHALATION ×2 (08:28→20:01)
[2021-08-21] MEDS: IPRATROPIUM BR 0.02% INH SOLN 0.5 MG/2.5 ML VIAL INHALATION ×3 (08:28→20:00)
[2021-08-21 08:40] LABS: Basophils Percent Auto 0.4 % (0.2-1.2); Hematocrit 35.1 % (37.0-47.0); Hemoglobin 10.7 g/dL (12.0-15.0); Immature Granulocyte Absolute 0.01 K/mm3 (0.00-0.031); Immature Granulocyte Percent A 0.4 % (0-0.5); Lymphocytes Absolute Auto 0.21 K/mm3 (0.9-3.2); Lymphocytes Percent Auto 9.2 % (18.3-44.2); Mean Corpuscular HGB Conc 30.5 g/dl (32-36); Mean Corpuscular Hemoglobin 31.3 pg (26-34); Mean Corpuscular Volume 102.6 fl (80-100); Mean Platelet Volume 8.9 fl (7.4-10.4); Monocytes Percent Auto 1.8 % (2.6-8.5); Neutrophils Percent Auto 88.2 % (45.5-73.1); Platelet Count Result 307 k/mm3 (150-375); Red Blood Count 3.42 M/mm3 (4.2-5.4); White Blood Count 2.3 K/mm3 (4.5-10.0)
[2021-08-21 08:40] LABS: Alveolar/Arterial O2 Gradient 91.3 mmHg; Base Excess ABG 18.8 mEq/l (+/-2.0); Fractional Inspired Oxygen 40 %; HCO3 ABG 47.9 mEq/l (22.0-26.0); Oxygen Content ABG 15.7 %vol (16.0-22.0); Oxygen Saturation ABG 96.7 % (95.0-100.0); Oxyhemoglobin 96.4 % THb (90.0-100.0); PO2 ABG 96.6 mmHg (80.0-100.0); PO2 FiO2 Ratio Arterial Blood 2.41 %; Total Hemoglobin 11.5 g/dL (12.0-18.0); pH ABG 7.371 (7.350-7.450)
[2021-08-21 08:42] LABS: PCO2 ABG 84.6 mmHg (35.0-45.0)
[2021-08-21 08:43] LABS: Device NON-INVASIVE VENT; Non-Invasive Expiratory Pressure 6 CMH2O; Non-Invasive Inspiratory Pressure 12 CMH2O; Non-Invasive Vent Rate 20 /MIN; Site Drawn LEFT BRACHIAL
[2021-08-21 08:59] LABS: Albumin Level 3.5 g/dL (3.5-5.1); Alkaline Phosphatase 74 U/L (38-126); Aspartate Amino Transferase 16 U/L (14-36); Bilirubin,Total 0.4 mg/dL (0.2-1.3); Blood Urea Nitrogen 15 mg/dL (7-17); Calcium 9.3 mg/dL (8.4-10.2); Carbon Dioxide > 40 mmol/L (22-30); Chloride 87 mmol/L (98-107); Estimated CRCL calculation 75 ml/min; Estimated Glomerular Filt Rate > 60; Glucose 120 mg/dL (65-110); Phosphorus 4.7 mg/dL (2.5-4.5); Potassium 4.6 mmol/L (3.4-5.0); Sodium 136 mmol/L (137-145)
[2021-08-21 09:12] LABS: Alanine Aminotransferase < 6 U/L (4-35)
[2021-08-21] MEDS: ESCITALOPRAM OXALATE 10 MG TABLET 30 MG PO (09:42)
[2021-08-21] MEDS: THIAMINE HCL 200 MG/2 ML VIAL 100 MG IV PUSH (09:42)
[2021-08-21] MEDS: FOLIC ACID 1 MG/0.2 ML INJ IV PUSH (09:42)
--- NOTE | 2021-08-21 12:11 | PM.IMPN ---
Progress Note: A&P Assessment and Plan (1) Acute on chronic respiratory failure with hypoxia and hypercapnia: Code(s): J96.21 - Acute and chronic respiratory failure with hypoxia; J96.22 - Acute and chronic respiratory failure with hypercapnia Status: Acute (2) Acute exacerbation of chronic obstructive pulmonary disease: Code(s): J44.1 - Chronic obstructive pulmonary disease with (acute) exacerbation Status: Acute (3) Stable burst fracture of T6 vertebra: Code(s): S22.051A - Stable burst fracture of T5-T6 vertebra, initial encounter for closed fracture Status: Acute (4) Generalized anxiety disorder with panic attacks: Code(s): F41.1 - Generalized anxiety disorder; F41.0 - Panic disorder [episodic paroxysmal anxiety] Status: Acute (5) Leukopenia: Code(s): D72.819 - Decreased white blood cell count, unspecified Status: Acute (6) Alcohol abuse: Code(s): F10.10 - Alcohol abuse, uncomplicated Status: Acute (7) Tobacco abuse: Code(s): Z72.0 - Tobacco use Status: Chronic (8) DVT prophylaxis: Code(s): Z29.9 - Encounter for prophylactic measures, unspecified Status: Acute Additional Plan Patient was seen pulmonary clinic on the day of admission. She is known to have end-stage COPD and chronic respiratory failure. She was noted to have increased somnolence for this reason she was sent to the emergency concern for CO2 narcosis. ABG admission showed a pH of 7.20, a pCO2 150 and a PO2 of 209 on 5 L. she was started on BiPAP. She tolerated this well. ABG this morning shows improvement. CXR remains clear. BiPAP was removed and she was started back on her 3 L nasal cannula during the day. Pulmonary is been consulted. Will continue Solu-Medrol (but decrease frequncy), Advair and nebulizer treatments (pulmonary note states patient is on Trelegy instead of Advair so this will need to be clarified). No excessive sputum production so hold on antibiotics. She has quit smoking which she was congratulated on. Alcohol use appears to have been decreased from the past when comparing notes. Will continue thiamine and folate. [facility] protocol. Patient with leukopenia which could be related to a viral illness. She does have elevated MCV probably related to alcohol use but will check HIV. She does not have risk factors but she is agreeable to be tested. Total protein is low with a normal albumin concerning for immunoglobulin deficiency which will check. Patient is very thin with a BMI of 15 a with normal albumin. Will add supplements. Anxiety appears to be well controlled. Continue Lexapro and prn alprazolam. Lovenox for DVT prophylaxis. Subjective Date/time seen: 08/21/21 12:11 Interval history: 55yo female with chronic respiratory failure from COPD here for increasing shortness of breath. Patient feels better. She was able to come off of the BiPAP and feels well. She has walked to the bathroom and feels her MOYA is about the same as at home. No CP. No n/v. She is mildly confused but states she uses about 3-4L/min O2 at home. She also has what sounds like a BiPAP as well that she wears for a few hours during the day while awake but does not wear this at night or with naps. She states she was never told that she needed to. No longer smokes. She drinks 2-3 alcoholic drinks per week. She sleeps in a recliner in the living room. She lives with her son and they have a dog but no birds. Slight mostly non-productive cough but no change. No HIV risk factors Exam Narrative: AF 97.4 97/69 104 24 95% 5L Gen - very thin female in NARD sitting at the side of the bed Chest - dry bibasilar inspiratory crackles, nml RR CV - RRR S1/S2. Tele showing no significant dysrhythmias Abd - Soft, NT/ND, Positive BS Ext - No pedal edema. poor muscle mass Neuro - Alert and oriented to location, rm number and month but not year or nick name. Psych - Nml mood and affect Skin - Warm
[2021-08-21] MEDS: ALPRAZolam (*CRX) 0.5 MG TABLET PO ×2 (12:35→20:36)
--- NOTE | 2021-08-21 13:23 | PM.CNPUL ---
Assessment and Plan Assessment and plan (1) Acute on chronic respiratory failure with hypoxia and hypercapnia: Code(s): J96.21 - Acute and chronic respiratory failure with hypoxia; J96.22 - Acute and chronic respiratory failure with hypercapnia Status: Acute Assessment and Plan: 55-year-old female with end-stage COPD, presented with acute on chronic hypercapnic respiratory failure related to COPD exacerbation. The patient has improved following treatment with noninvasive ventilatory support last night with normalization of pH. Chest x-ray showed no new lung infiltrates. Currently the patient is on treatment with IV steroids and short-acting bronchodilators. Plan I would switch patient to prednisone 20 mg daily starting in a.m. for 5 days, continue with short-acting bronchodilators, the BiPAP support at night. Given history of frequent hospitalizations for acute hypercapnic respiratory failure patient will need to start using the home ventilator at night. patient could not remember whether she ever used the ventilator in the past. Need to call the [employer] and arrange a home visit by respiratory therapist to set up the trilogy ventilator. (2) Acute exacerbation of chronic obstructive pulmonary disease: Code(s): J44.1 - Chronic obstructive pulmonary disease with (acute) exacerbation Status: Acute History of Present Illness History of Present Illness Consult date: 08/21/21 Chief complaint: Acute Respiratory Failure, COPD Exacerbation Narrative: this 55-year-old female with end-stage COPD, hypoxemic hypercapnic respiratory failure was seen in the office yesterday for regular for. The patient was complaining of increasing fatigue and daytime somnolence. She was sent to the emergency room where workup showed acute on chronic hypercapnic respiratory failure. The patient has history of stage IV COPD with FEV1 of 0.35 L or 16% predicted on last testing approximately 21 months ago. Patient was hospitalized, started on nebulized short-acting bronchodilators IV steroids for possible COPD exacerbation as well as on noninvasive ventilatory support via BiPAP 12/6 and 4% FiO2. Since yesterday the patient's clinical condition is improving. Currently she is on supplemental oxygen. She denied having any cough sputum production or wheezing. She overall feels better feels. upon questioning the patient stated that she has a trilogy ventilator at home but not using it. She could remember when was the last time she used the noninvasive ventilator. The patient has some memory loss following CPR home about a year ago. Her maintenance bronchodilators include Trelegy inhaler and short-acting bronchodilators. Review of Systems Review of Systems: patient reports no significant weight changes. She has had a good appetite. She denied having fever chills or night sweats. She has had severe shortness of breath with any activity. She denied having chest pain palpitations. She sleeps in a recliner because of orthopnea. Patient denied having cough or wheezing. She denied having acid reflux symptoms. She denied having abdominal pain diarrhea constipation nausea or vomiting. She has no urinary complaints. Patient denies having lower extremity edema. She has had memory loss following CPR approximately 1 year ago. She quit smoking more than a year ago. PENDING SALE TO [facility] Past Medical History Medical History Abnormal EKG EKG has previously shown ST elevation which appears to be early repolarization. Alcohol abuse Anorexia Anxiety Asthma B12 deficiency anemia Chronic anemia Chronic respiratory failure with hypoxia and hypercapnia COPD with emphysema Gastroesophageal reflux disease Generalized anxiety disorder with panic attacks Spontaneous pneumothorax (~08/2012) Several pneumothoraces status post VATS procedure and apical blebectomy as well as pleurodesis. Tobacco abuse Vitamin D deficienc
--- NOTE | 2021-08-21 16:34 | PC.NURSE ---
On 08/21/21, the student, Anayeli [facility], provided care on this patient. I have reviewed the student's work and agree with the findings.
[2021-08-21] MEDS: ALBUTEROL SULFATE (*SP) AEROSOL 1 PUFF 2 PUFF INHALATION (18:23)
[2021-08-22] VITALS (13 sets, daily range): BP systolic 91–103; BP diastolic 47–74; PULSE 75–107; RESP 18–20; TEMP 36.4–36.7; O2SAT 92–100
[2021-08-22] MEDS: IPRATROPIUM BR 0.02% INH SOLN 0.5 MG/2.5 ML VIAL INHALATION ×2 (01:42→08:22)
[2021-08-22] MEDS: ALBUTEROL SULFATE NEB 2.5 MG/0.5 ML INH 5 MG INHALATION ×2 (01:43→08:22)
[2021-08-22 04:55] LABS: Basophils Percent Auto 0.2 % (0.2-1.2); Eosinophils Percent Auto 0.2 % (0-4.4); Hematocrit 29.9 % (37.0-47.0); Hemoglobin 9.3 g/dL (12.0-15.0); Immature Granulocyte Absolute 0.01 K/mm3 (0.00-0.031); Immature Granulocyte Percent A 0.2 % (0-0.5); Lymphocytes Absolute Auto 0.86 K/mm3 (0.9-3.2); Lymphocytes Percent Auto 20.8 % (18.3-44.2); Mean Corpuscular HGB Conc 31.1 g/dl (32-36); Mean Corpuscular Hemoglobin 31.1 pg (26-34); Mean Platelet Volume 8.7 fl (7.4-10.4); Monocytes Absolute Auto 0.6 K/mm3 (0.1-0.6); Monocytes Percent Auto 14.5 % (2.6-8.5); Neutrophils Absolute Auto 2.6 K/mm3 (1.3-6.7); Neutrophils Percent Auto 64.1 % (45.5-73.1); Platelet Count Result 290 k/mm3 (150-375); Red Blood Count 2.99 M/mm3 (4.2-5.4); Red Cell Distribution Width 12.4 % (11.5-14.5); White Blood Count 4.1 K/mm3 (4.5-10.0)
[2021-08-22 05:29] LABS: Immunoglobulin A 139 mg/dL (70-400); Immunoglobulin G 377 mg/dL (700-1600); Immunoglobulin M 34 mg/dL (40-230)
[2021-08-22 05:46] LABS: Blood Urea Nitrogen 17 mg/dL (7-17); Calcium 8.7 mg/dL (8.4-10.2); Carbon Dioxide > 40 mmol/L (22-30); Chloride 85 mmol/L (98-107); Estimated CRCL calculation 62 ml/min; Estimated Glomerular Filt Rate > 60; Glucose 106 mg/dL (65-110); Potassium 3.1 mmol/L (3.4-5.0); Sodium 134 mmol/L (137-145)
[2021-08-22 05:59] LABS: HIV 1/2 Ab P24 Ag Result Negative (Negative)
[2021-08-22] MEDS: FLUTICASONE/SALMETEROL 115-21 MCG INHALER 1 PUFF 2 PUFF INHALATION (08:22)
[2021-08-22] MEDS: ALPRAZolam (*CRX) 0.5 MG TABLET PO (08:46)
[2021-08-22] MEDS: POTASSIUM CHLORIDE 20 MEQ TABLET PO (08:46)
[2021-08-22] MEDS: ESCITALOPRAM OXALATE 10 MG TABLET 30 MG PO (08:46)
[2021-08-22] MEDS: predniSONE 20 MG TABLET PO (08:46)
[2021-08-22] MEDS: THIAMINE HCL 200 MG/2 ML VIAL 100 MG IV PUSH (08:46)
--- NOTE | 2021-08-22 10:17 | PM.PNPUL ---
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 The patient's clinical condition quickly improved following nocturnal ventilatory support with BiPAP. Of note the patient has been on noninvasive ventilatory support at home via Trilogy ventilator but was not using it at night. She was using it p.r.n. during the day. Patient's presentation and the fast improvement of ABG suggest that the patient is back at baseline and this hospitalization was related to noncompliance with the home ventilator rather than due to COPD exacerbation. Agree with discharging patient home today. She will continue with the Trelegy inhaler daily, the short-acting bronchodilators p.r.n. and prednisone 20 mg daily for another 4 days. I asked the patient to start using the home ventilator at night and p.r.n. during the day. We would like to evaluate the patient in the outpatient clinic in approximately 2 weeks. Subjective Date/time seen: 08/22/21 10:17 Patient stated she feels better. Used BiPAP last night. No other respiratory complaints. She is ready to go home. Review of Systems Review of Systems: All systems reviewed & are unremarkable except as noted in HPI and below (H and P and below) Exam Narrative: GENERAL APPEARANCE: Well developed, emaciated female looking chronically ill, alert and cooperative, who appears to be in mild respiratory distress while on supplemental oxygen. SKIN: Inspection of the skin reveals no rashes, ulcerations or petechiae. HEENT: Sclerae anicteric and conjunctivae pink and moist. Extraocular movements were intact and pupils were equal, round, and reactive to light. The oral mucosa, hard and soft palate, tongue and posterior pharynx were normal. NECK: Supple. There was no thyroid enlargement, and no tenderness, or masses were felt. CHEST: Increased AP diameter and normal contour without any kyphoscoliosis. LUNGS: Auscultation of the lungs revealed distal breath sounds bilaterally with a rare crackles at bases, no wheezing.normal breath sounds without any other adventitious sounds or rubs. CARDIAC: There was a regular rate and rhythm without any murmurs, gallops, rubs. ABDOMEN: Soft and nontender with normal bowel sounds. There was no organomegaly. LYMPH NODES: No lymphadenopathy was appreciated in the neck. EXTREMITIES: No cyanosis, clubbing or edema. NEUROLOGIC: Alert and oriented x 3. Normal affect. Objective Data Vital Signs Vital Signs: Vital Signs - 24 hr 08/21/21 12:00 08/21/21 12:17 08/21/21 12:38 Temperature 37.1 C Pulse Rate 98 Respiratory Rate 18 Blood Pressure 128/79 Pulse Oximetry 93 96 95 08/21/21 13:59 08/21/21 14:00 08/21/21 14:16 Temperature Pulse Rate 96 109 H 107 H Respiratory Rate 24 H 22 H Blood Pressure Pulse Oximetry 08/21/21 16:00 08/21/21 18:00 08/21/21 20:00 Temperature 37.3 C 36.7 C Pulse Rate 107 H 110 H 107 H Respiratory Rate 14 22 H Blood Pressure 123/79 101/56 L Pulse Oximetry 93 96 08/21/21 20:02 08/21/21 20:05 08/21/21 20:11 Temperature Pulse Rate 118 H 101 H Respiratory Rate 24 H 22 H Blood Pressure Pulse Oximetry 95 08/21/21 22:59 08/22/21 00:00 08/22/21 01:43 Temperature 36.6 C Pulse Rate 110 H 98 85 Respiratory Rate 23 H 20 20 Blood Pressure 103/71 Pulse Oximetry 96 99 100 08/22/21 01:50 08/22/21 02:00 08/22/21 04:00 Temperature 36.7 C Pulse Rate 90 88 86 Respiratory Rate 2
--- NOTE | 2021-08-22 12:22 | PCDIET ---
Nutrition Follow-Up Complete: Nutrition Diagnosis: Underweight related to inadequate energy intake retirement as evidenced by BMI of 15.1. Nutrition Goal: Patient to consume 50% of meals/supplements or greater. Goal in progress. Patient consumed 50% of breakfast today and 100% of (2) recorded meals on 08/21/21. Accepting some Ensure Enlive which is being provided with meals. Recommend liberalizing to regular diet. Last recorded weight is 37.5 kg which is stable. Bowel Motility: Last documented BM on 08/21/21 x 2. Labs Reviewed: WBC (4.1), RBC (2.99), Hgb (9.3), Hct (29.9), Cr (0.5), K (3.1), Na (134) Meds Noted: KCl, Albuterol, Folic Acid, Atrovent, Prednisone, Advair Hfa, Thiamine Additional Notes: No documented skin breakdown. Will continue to monitor with same goal. Nutrition Monitoring and Evaluation: Follow up in 5 days.
--- NOTE | 2021-08-22 12:38 | PM.DS ---
DS: Admitting Diagnosis Discharge Date 08/22/21 Admitting Diagnosis Shortness of breath DS: Discharge Diagnosis Discharge Diagnosis (1) Acute on chronic respiratory failure with hypoxia and hypercapnia: Code(s): J96.21 - Acute and chronic respiratory failure with hypoxia; J96.22 - Acute and chronic respiratory failure with hypercapnia Status: Acute (2) Acute exacerbation of chronic obstructive pulmonary disease: Code(s): J44.1 - Chronic obstructive pulmonary disease with (acute) exacerbation Status: Acute (3) Stable burst fracture of T6 vertebra: Code(s): S22.051A - Stable burst fracture of T5-T6 vertebra, initial encounter for closed fracture Status: Acute (4) Generalized anxiety disorder with panic attacks: Code(s): F41.1 - Generalized anxiety disorder; F41.0 - Panic disorder [episodic paroxysmal anxiety] Status: Acute (5) Leukopenia: Code(s): D72.819 - Decreased white blood cell count, unspecified Status: Acute (6) Alcohol abuse: Code(s): F10.10 - Alcohol abuse, uncomplicated Status: Acute (7) Tobacco abuse: Code(s): Z72.0 - Tobacco use Status: Chronic DS: Summary Hospital Course Reason for hospitalization: 55yo female with chronic respiratory failure from COPD here for increasing shortness of breath. Please see Hospital Course: Patient was seen pulmonary clinic on the day of admission. She is known to have end-stage COPD and chronic respiratory failure. She was noted to have increased somnolence and for this reason she was sent to the emergency concern for CO2 narcosis. ABG on admission showed a pH of 7.20, a pCO2 150 and a PO2 of 209 on 5 L. She was started on BiPAP. She tolerated this well. ABG showed improvement. CXR remained clear. BiPAP was removed and she was started back on her 3 L nasal cannula during the day. Pulmonary was consulted. She was treated with Solu-Medrol, Advair and nebulizer treatments (pulmonary note states patient is on Trelegy instead of Advair so this wsa changed back to Trelegy). No excessive sputum production so we held on antibiotics. She has quit smoking which she was congratulated on. Alcohol use appears to have been decreased from the past when comparing notes. We added thiamine and folate. CIWA protocol was done but stable. Patient with leukopenia which could be related to a viral illness. She does have elevated MCV probably related to alcohol use. HIV negative. Total protein is low with a normal albumin concerning for immunoglobulin deficiency: She did have low IgG (377) and IgM (34). IgA was normal. Anxiety was well controlled and we continued Lexapro and prn alprazolam. She improved overall. Plan for discharge home today. Status at Discharge Cognitive/behavioral status at discharge: stable Time Spent with Patient Time attestation: Total time spent providing and/or coordinating discharge services: 35 minutes Time spent: Greater than 30 minutes Exam Narrative: AF 97.6 91/74 106 20 93% $L Gen - very thin female in NARD Chest - few bibasilar inspiratory crackles CV - RRR S1/S2. Tele showing no significant dysrhythmias Abd - Soft, NT/ND, Positive BS Ext - No pedal edema. Psych - Nml mood and affect Skin - Warm and dry DS: Data Data Completed and Pending Labs on day of discharge: Labs from last 24 hours 08/22/21 08/22/21 08/22/21 04:39 04:39 04:39 WBC 4.1 L RBC 2.99 L Hgb 9.3 L Hct 29.9 L MCV 100.0 MCH 31.1 MCHC 31.1 L RDW 12.4 Plt Count 290 MPV 8.7 Immature Gran % (Auto) 0.2 Neut % (Auto) 64.1 Lymph % (Auto) 20.8 [place] % (Auto) 14.5 H Eos % (Auto) 0.2 Baso % (Auto) 0.2 Lymph # (Auto) 0.86 L [place] # (Auto) 0.6 Eos # (Auto) 0.0 Baso # (Auto) 0.0 Abs Immat Gran (auto) 0.01 Absolute Neuts (auto) 2.6 Absolute Nucleated RBC 0.0 Nucleated RBC % 0.0 Sodium 134 L Potassium 3.1 L Chl
[2021-08-22] MEDS: FOLIC ACID 1 MG/0.2 ML INJ IV PUSH (13:00)
[2021-08-28 20:55] LABS: Immunoglobulin E 8 kU/L (<=114)
--- NOTE | 2021-08-30 10:03 | PC.NURSE ---
IgE is WNL at 8. Dr. Guzman is aware.
== END 2021-08-22 13:45 | disposition home or self-care (01) | DRG 189 ==
LOC: ANHED 20:27 → ANHIMU 22:11
PROVIDERS: General Practice; Admitting Provider Internal Medicine; Emergency Provider Emergency Medicine; PCP Family Medicine; Visit Provider Internal Medicine
DX: J96.21 Acute and chronic respiratory failure with hypoxia (principal); S22.051A Stable burst fracture of T5-T6 vertebra, initial encounter for closed fracture; X58.XXXA Exposure to other specified factors, initial encounter; J96.22 Acute and chronic respiratory failure with hypercapnia; J43.9 Emphysema, unspecified; K21.9 Gastro-esophageal reflux disease without esophagitis; F41.1 Generalized anxiety disorder; F41.0 Panic disorder [episodic paroxysmal anxiety]; F10.10 Alcohol abuse, uncomplicated; D72.819 Decreased white blood cell count, unspecified; Z23 Encounter for immunization; Z87.891 Personal history of nicotine dependence; Z99.81 Dependence on supplemental oxygen
CPT/HCPCS: 36415; 36600; 71045; 71046; 80048; 80053; 82784; 82785; 82805; 83735; 84100; 85025; 86703; 90471; 90653; 93005; 94002; 94640; 96374; 99253; 99285; A9270; G0008; G0432; J2920; J2930; J3411; J7512

== ENCOUNTER 2021-10-22 07:22 | Inpatient (IN) | payer MEDICARE, MEDICAID, SELFPAY ==
[2021-10-22] VITALS (73 sets, daily range): BP systolic 89–110; BP diastolic 45–80; PULSE 98–138; RESP 18–52; TEMP 36.3–36.8; O2SAT 92–100; BMI 15.8
--- NOTE | ~2021-10-22 | MR_ITS ---
EXAMINATION: MR brain/brain stem wo/w con DATE: 10/25/2021 14:29 INDICATION: Central hypothyroidism. TECHNIQUE: Magnetic resonance imaging (MRI) of the brain and brainstem was performed without and with 8 mL MultiHance intravenous contrast. Whole-brain sequences included sagittal T1-weighted FSE, axial diffusion-weighted FS EPI, axial T2*-weighted GRE, axial T2-weighted FLAIR Propeller, and axial T2-w eighted Propeller. Small [id number] sequences included sagittal and coronal T1-weighted FSE center ed at the pituitary. Postcontrast sequences included small [id number] coronal T1-weighted FSE in a time course and sagittal T1-weighted FSE and whole-brain axial T1-weighted FSE. Apparent diffusion coefficient (ADC) maps were created. COMPARISON: Brain MRI 05/27/2017, head CT 04/10/2021 FINDINGS: The pituitary is normal in size with height of 5 mm and concave superior margin. The infund ibulum is at midline. There is a small old infarct in inferior right cerebellum. There are scattered areas of nonspecific increased T2-weighted signal intensity in the cerebral white matter, which is wi thin normal limits for the patient's age. There is no intracranial hemorrhage, acute infarction, or a bnormal intracranial mass lesion. The ventricles are normal in size. The paranasal sinuses are clear. The orbits are normal. There is a small right mastoid effusion. IMPRESSION: 1. Normal pituitary. 2. Small old infarct in right cerebellum. Reviewed, dictated and finalized at location A. FEEDER
--- NOTE | ~2021-10-22 | XR_ITS ---
EXAMINATION: XR chest 1V portable DATE: 10/22/2021 08:38 INDICATION: Shortness of breath. TECHNIQUE: frontal view of the chest was obtained. COMPARISON: Chest radiograph dated 08/21/2021 FINDINGS: Hyperexpansion of lungs with scattered increased lucencies and architectural distortion most prominen t in the left lower lung zone consistent with emphysema. Suture lines in the bilateral upper lung zon es. Bilateral scattered curvilinear atelectasis/scarring along with chronic basilar pleural parenchym al scarring resulting in blunting at the costophrenic angles. Mild increased opacities in the left lo wer lung zone. No pneumothorax or definitive pleural effusion. Heart size is normal. Old healed left seventh rib fracture. IMPRESSION: 1. Diffuse lung disease consistent with severe emphysema and multifocal scarring. 2. Mildly increased opacities in the left lower lung zone which could represent atelectasis or pneumo lisa. Reviewed, dictated and finalized at location D. [facility] CONSUMER INSIGHTS CONSULTANT IMPRESSION: 1. Diffuse lung disease consistent with severe emphysema and multifocal scarrin g. 2. Mildly increased opacities in the left lower lung zone which could represent atelectasis or pneumonia.
--- NOTE | ~2021-10-22 | CT_ITS ---
EXAMINATION: CTA chest PE protocol DATE: 10/22/2021 12:56 INDICATION: Shortness of breath. Covid-positive. COPD. TECHNIQUE: Computed tomography angiography (CTA) of the chest was performed with 100 mL Omnipaque-350 intravenous contrast timed to evaluate the pulmonary arteries. Coronal maximum intensity projection 3D-reconstructions were created by the technologist. Automated exposure control and iterative reconst ruction technique were employed. Exam dose: 126.76 mGy-cm total exam DLP. COMPARISON: 10/2021 portable AP chest 04/10/2021 CT chest FINDINGS: There is diagnostic contrast enhancement of the pulmonary arteries and no apparent pulmonar y embolism. Left upper lobe, right upper lobe superior segment right lower lobe pulmonary wedge resections. Severe bullous emphysematous changes of the lungs are noted. Prominent bullae with air-fluid levels are noted in the left mid and particularly left lower lung. Small left pleural effusion Normal heart size. No pericardial effusion. No thoracic aortic aneurysm or dissection. No hilar or mediastinal mass lesion or lymphadenopathy is detected. Normal morphology of the adrenal glands. Included upper abdominal structures are unremarkable. There is diffuse osteopenia. There is chronic severe burst fracture deformity at T6. There is chronic mild anterior wedge compress ion fracture deformity of T5. Is likely chronic mild to moderate compression fracture deformity of T9 . IMPRESSION: No apparent pulmonary malignancy in Bilateral lung resections Severe bullous emphysematous changes of the lungs; fluid levels in prominent left lower lobe bullae Small left pleural effusion Multiple fracture deformities of the thoracic spine Reviewed, dictated and finalized at Location A. Reviewed, dictated and finalized at location A. ARY AIDE COOK IMPRESSION: No apparent pulmonary malignancy in Bilateral lung resections Severe bullous emphysematous changes of the lungs; fluid levels in prominent le ft lower lobe bullae Small left pleural effusion Multiple fracture deformities of the thoracic spine
[2021-10-22 08:42] LABS: Basophils Percent Auto 0.3 % (0.2-1.2); Eosinophils Absolute Auto 0.1 K/mm3 (0-0.3); Eosinophils Percent Auto 1.9 % (0-4.4); Hematocrit 38.5 % (37.0-47.0); Hemoglobin 11.3 g/dL (12.0-15.0); Immature Granulocyte Absolute 0.03 K/mm3 (0.00-0.031); Immature Granulocyte Percent A 0.4 % (0-0.5); Lymphocytes Absolute Auto 0.76 K/mm3 (0.9-3.2); Lymphocytes Percent Auto 10.5 % (18.3-44.2); Mean Corpuscular HGB Conc 29.4 g/dl (32-36); Mean Corpuscular Hemoglobin 31.3 pg (26-34); Mean Corpuscular Volume 106.6 fl (80-100); Mean Platelet Volume 8.6 fl (7.4-10.4); Monocytes Absolute Auto 0.7 K/mm3 (0.1-0.6); Monocytes Percent Auto 9.2 % (2.6-8.5); Neutrophils Absolute Auto 5.6 K/mm3 (1.3-6.7); Neutrophils Percent Auto 77.7 % (45.5-73.1); Platelet Count Result 366 k/mm3 (150-375); Red Blood Count 3.61 M/mm3 (4.2-5.4); Red Cell Distribution Width 12.3 % (11.5-14.5); White Blood Count 7.3 K/mm3 (4.5-10.0)
[2021-10-22 08:52] LABS: Add Urine Microscopic? YES; Appearance Urine Clear (Clear); Bilirubin Urine Negative (Negative); Blood Urine Negative (Negative); Color Urine Colorless (Yellow); Glucose Urine UA 1+ mg/dL (Negative); Ketones Urine Negative (Negative); Leukocyte Esterase Ur Negative LEU/UL (Negative); Nitrate Urine Negative (Negative); Protein Urine Negative (Negative); RBC Urine 0-2 /hpf (0-2); Urobilinogen Urine Negative mg/dL (<2.0); WBC Urine 0-3 /hpf
[2021-10-22 09:25] LABS: Alanine Aminotransferase 8 U/L (4-35); Albumin Level 3.9 g/dL (3.5-5.1); Alkaline Phosphatase 90 U/L (38-126); Aspartate Amino Transferase 18 U/L (14-36); Bilirubin,Total 0.2 mg/dL (0.2-1.3); Blood Urea Nitrogen 4 mg/dL (7-17); Carbon Dioxide > 40 mmol/L (22-30); Chloride 90 mmol/L (98-107); Estimated CRCL calculation 80 ml/min; Estimated Glomerular Filt Rate > 60; Glucose 101 mg/dL (65-110); Potassium 3.4 mmol/L (3.4-5.0); Sodium 140 mmol/L (137-145)
--- NOTE | 2021-10-22 09:25 | PC.NURSE ---
Multiple RN attempts to get IV access, Eric RN will attempt at this time
[2021-10-22 09:34] LABS: Specific Grav Ur 1.003 (1.001-1.035)
[2021-10-22] MEDS: SODIUM CHLORIDE 0.9% IV 1,000 ML 999 ML IV CONT (09:44)
[2021-10-22 09:47] LABS: Base Excess ABG 12.9 mEq/l (+/-2.0); Carboxyhemoglobin 0.1 % THb (0-2.0); Fractional Inspired Oxygen 36 %; HCO3 ABG 42.4 mEq/l (22.0-26.0); Methemoglobin ABG 0.2 %THb (0-1.5); Oxygen Content ABG 15.6 %vol (16.0-22.0); Oxygen Saturation ABG 96.3 % (95.0-100.0); PO2 ABG 96.5 mmHg (80.0-100.0); PO2 FiO2 Ratio Arterial Blood 2.68 %; Reduced Hemoglobin 3.7 %THb (0-5.0); Total Hemoglobin 11.5 g/dL (12.0-18.0); pH ABG 7.305 (7.350-7.450)
[2021-10-22 09:49] LABS: Device NASAL CANNULA; Modified Allen's Test Pass; PCO2 ABG 87.2 mmHg (35.0-45.0); Site Drawn RIGHT RADIAL
--- NOTE | 2021-10-22 12:10 | ED.SOB ---
HPI - SOB/Dyspnea General Chief Complaint: Shortness of Breath/Dyspnea Stated Complaint: sob History of Present Illness HPI Narrative: Patient is a 56-year-old female who presents ER with shortness of breath. Sudden onset this morning. Has history of COPD and is dependent on 4 L nasal cannula. Reports she is no longer short of breath but she is breathing 40 times a minute. Patient had Covid 1 year ago but has not recently been diagnosed. Unsure if she has had fevers or chills. Patient lives at home. Reports compliance with home medication for COPD. Related Data Home Medications Medication Instructions Recorded Confirmed escitalopram oxalate 30 mg PO DAILY 11/15/19 08/20/21 alprazolam 0.5 mg PO Q6H PRN 01/15/21 08/20/21 Allergies Allergy/AdvReac Type Severity Reaction Status Date / Time No Known Allergies Allergy Verified 08/20/21 14:24 Review of Systems Review of Systems: All systems reviewed & are unremarkable except as noted in HPI and below Constitutional: Constitutional: Denies chills, Denies fever(s) and Reports weakness ENT: Denies nasal congestion and Denies sore throat Cardiovascular: Cardiovascular: Denies chest pain, Denies rapid heart rate and Denies radiating jaw, neck or arm pain Respiratory: Respiratory: Denies chest congestion, Denies cough, Reports dyspnea and Denies wheezing Gastrointestinal: Gastrointestinal: Denies nausea and Denies vomiting Musculoskeletal: Musculoskeletal: Denies back pain and Denies muscle cramps PMFSH Past Medical History Medical History Abnormal EKG EKG has previously shown ST elevation which appears to be early repolarization. Alcohol abuse Anorexia Anxiety Asthma B12 deficiency anemia Chronic anemia Chronic respiratory failure with hypoxia and hypercapnia COPD with emphysema Gastroesophageal reflux disease Generalized anxiety disorder with panic attacks Spontaneous pneumothorax (~08/2012) Several pneumothoraces status post VATS procedure and apical blebectomy as well as pleurodesis. Tobacco abuse Vitamin D deficiency Surgical History Surgical History History of bilateral tubal ligation History of History of hip surgery (~07/2019) ORIF of right hip fracture. History of tonsillectomy Status post thoracotomy Left-sided VATS procedure and apical bleb resection with pleurodesis. Family History Family History Father Acute myocardial infarction Father No problems noted. Unknown No problems noted. Mother No problems noted. Sibling No problems noted. Social History Social History Social History: The patient lives with her 16-year-old son in [place]. She has 2 other sons who are grown out of the home. 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 She is a former smoker but cannot tell me when she quit smoking cigarettes. She smoked as many as 2 packs of cigarettes per day. She has significantly cut back in her drinking. She denies illicit substance use. Her son Lino Foote and ex- Neo are her surrogate decision maker and she wishes to be a full code. Smoking packs per day: 1.5 Smoking cigarettes per day: 30.0 Years smoked: 35 Smoking pack-years: 52.50 Smoking status: Former smoker Second hand tobacco smoke exposure: Yes Additional smoking assessment comments: Patient states she no longer smokes but can't say when she quit Alcohol intake: current Drinks per week: 3 Substance use: former Substance use type: marijuana Last use: 08/03/2020 Additional living arrangements comments: Lives with her 16-year-old son. Gender identity (if verbalized by the patient): Female Spiritual care concerns: No Agree to blood products: Yes Exam Narr
[2021-10-22] MEDS: HYDROcodone/acetaminophen (*CRX) 5-325 MG TABLET 1 TAB PO ×2 (15:06→20:39)
[2021-10-22] MEDS: methylPREDNISolone SOD SUCC 125 MG VIAL 60 MG IV PUSH (16:46)
[2021-10-22 17:11] LABS: EDCOVIDSCREEN Negative (Negative)
--- NOTE | 2021-10-22 17:50 | PC.NURSE ---
Gave report to Esme KAY
[2021-10-22] MEDS: SODIUM CHLORIDE 0.9% IV 1,000 ML 100 ML IV CONT (18:00)
--- NOTE | 2021-10-22 18:45 | ADMGEN ---
This patient, Esther Brink, was admitted to IMU Room 231-01. Patient/family oriented to hospital policies and general routines including ID bracelet, bed and alarms, visiting hours, pain management, procedures, bathroom and other care routines, personal items, smoking policy, room service/diet, and visiting hours. Information on how to activate the Rapid Response Team has been discussed. Patient/Family are encouraged to report perceived risks to care and to ask questions if they do not understand what they are told or what they should do.
[2021-10-23] VITALS (14 sets, daily range): BP systolic 87–109; BP diastolic 48–65; PULSE 86–99; RESP 15–28; TEMP 36.1–36.8; O2SAT 92–99; BMI 15.8
[2021-10-23] MEDS: methylPREDNISolone SOD SUCC 125 MG VIAL 60 MG IV PUSH ×4 (00:04→17:51)
--- NOTE | 2021-10-23 03:18 | PM.IMHP ---
H&P: HPI History of Present Illness Date/Time: 10/23/21 03:18 Chief Complaint: Fatigue Narrative: This is a 56-year-old female with end-stage gastroesophageal reflux disease, chronic anemia, tobacco dependence, generalized anxiety disorder with panic attacks, COPD/emphysema FEV 16% of predicted, chronic hypoxic hypercarbic respiratory failure on 4 L of supplemental oxygen by nasal cannula on home vent at nighttime with many hospitalizations in the past recent was in August of 2021 for COPD exacerbation. Patient presented to the emergency room today stating that she is feeling very tired, she was found to have respiratory rate of 40, she has cough productive of sputum which is greenish and copious, denies any fevers, any rigors, any chills, any nausea ,vomiting, diarrhea ,abdominal pain. Pressure a pCO2 of 86, pH of 7.3, PO2 of 96, a chest x-ray was significant for emphysema a CT angiogram of the chest did not show acute pulmonary embolism was significant for severe emphysematous changes and bullous disease of the lung, a COVID-19 rapid test was negative. Patient has been admitted for further evaluation, management and treatment. Review of Systems Review of Systems: Feeling tired, shortness of breath, poor appetite, productive cough of greenish sputum, fevers and chills. Constitutional: Constitutional: Reports chills, Reports fatigue, Reports fever(s) (Subjective), Reports lethargy, Denies night sweats and Reports poor appetite Eyes: Eyes: Denies change in vision ENT: Denies dysphagia, Denies nasal congestion, Denies nasal discharge, Denies nasal obstruction and Denies odynophagia Cardiovascular: Cardiovascular: Denies chest pain at rest, Denies pedal edema, Denies edema, Denies irregular heart rhythm, Denies leg edema, Denies lightheadedness, Denies radiating jaw, neck or arm pain, Denies palpitations, Denies dyspnea, Denies dyspnea on exertion and Denies orthopnea Respiratory: Respiratory: Reports change in phlegm color (Greenish), Reports cough, Reports excessive phlegm production, Reports dyspnea, Reports dyspnea on exertion and Denies wheezing Gastrointestinal: Gastrointestinal: Denies abdominal pain, Denies diarrhea, Denies nausea and Denies vomiting Genitourinary: Genitourinary: Denies dysuria and Denies flank pain Musculoskeletal: Musculoskeletal: Denies myalgias, Denies joint swelling and Denies neck pain Integumentary/Breasts: Skin/Breast: Denies rash Neurologic: Denies dizziness, Denies focal weakness and Denies Sensory deficit (Neuro) Psychiatric: Psychiatric: Reports no additional psychiatric complaints and Reports as per HPI Endocrine: Endocrine: Denies polyuria and Denies palpitations Hematologic/Lymphatic: Hematologic/Lymphatic: Reports no additional hematologic/lymphatic complaints and Reports as per HPI Allergic/Immunologic: Allergic/Immunologic: Reports no additional allergic/immunologic complaints and Reports as per HPI PMFSH Past Medical History Medical History Abnormal EKG EKG has previously shown ST elevation which appears to be early repolarization. Alcohol abuse Anorexia Anxiety Asthma B12 deficiency anemia Chronic anemia Chronic respiratory failure with hypoxia and hypercapnia COPD with emphysema Gastroesophageal reflux disease Generalized anxiety disorder with panic attacks Spontaneous pneumothorax (~08/2012) Several pneumothoraces status post VATS procedure and apical blebectomy as well as pleurodesis. Tobacco abuse Vitamin D deficiency Surgical History Surgical History History of bilateral tubal ligation History of History of hip surgery (~07/2019) ORIF of right hip fracture. History of tonsillectomy Status post thoracotomy Left-sided VATS procedure and apical bleb resection with pleurodesis. Family History Family History [facility]
[2021-10-23] MEDS: ALPRAZolam (*CRX) 0.5 MG TABLET PO ×2 (04:33→11:50)
[2021-10-23] MEDS: HYDROcodone/acetaminophen (*CRX) 5-325 MG TABLET 1 TAB PO ×2 (04:33→11:51)
[2021-10-23] MEDS: SODIUM CHLORIDE 0.9% IV 1,000 ML 100 ML IV CONT (04:35)
[2021-10-23] MEDS: ESCITALOPRAM OXALATE 10 MG TABLET 30 MG PO (08:21)
[2021-10-23] MEDS: THIAMINE HCL 100 MG TABLET PO (08:21)
[2021-10-23] MEDS: IPRATROPIUM BR 0.02% INH SOLN 0.5 MG/2.5 ML VIAL INHALATION (10:18)
[2021-10-23] MEDS: ALBUTEROL SULFATE NEB 2.5 MG/0.5 ML INH 5 MG INHALATION (10:18)
[2021-10-23] MEDS: FLUTICASONE/UMECLIDIN/VILANTER 100-62.5-25 MCG ELLIPTA 1 PUFF INHALATION (10:19)
--- NOTE | 2021-10-23 12:56 | PM.IMPN ---
Subjective Date/time seen: 10/23/21 12:56 Interval history: 56-year-old female admitted last night. Pt seen and examined agree the history and physical. Interval history, 56 year old female admitted with Pneumonia history of COPD and anxiety pt uses oxygen and has nebiluser machine at home. Cxr shows 1. Diffuse lung disease consistent with severe emphysema and multifocal scarring. 2. Mildly increased opacities in the left lower lung zone which could represent atelectasis or pneumonia. COVID is negative. I will order PT/ OT, pt usually uses a walker at home. Pt advised to continue with smoking cessation. Continue current care with oxygen steroids and IV Rocephin and Zithromax. Pt can be transferred to medical bed. Objective Data Vital Signs Vital Signs: Vital Signs - 24 hr 10/22/21 13:01 10/22/21 13:15 10/22/21 13:30 Temperature Pulse Rate 131 H 136 H 134 H Respiratory Rate 37 H 32 H 42 H Blood Pressure Pulse Oximetry 100 10/22/21 13:45 10/22/21 14:00 10/22/21 14:15 Temperature Pulse Rate 133 H 132 H 127 H Respiratory Rate 26 H 36 H 40 H Blood Pressure Pulse Oximetry 93 96 10/22/21 14:30 10/22/21 14:45 10/22/21 15:00 Temperature Pulse Rate 131 H 132 H 126 H Respiratory Rate 37 H 25 H 28 H Blood Pressure Pulse Oximetry 93 10/22/21 15:05 10/22/21 15:15 10/22/21 15:16 Temperature Pulse Rate 124 H 126 H 123 H Respiratory Rate 43 H 32 H 45 H Blood Pressure 109/72 Pulse Oximetry 100 10/22/21 15:26 10/22/21 15:30 10/22/21 15:31 Temperature Pulse Rate 125 H 124 H 123 H Respiratory Rate 29 H 38 H 39 H Blood Pressure 95/68 L 93/66 L Pulse Oximetry 100 100 98 10/22/21 15:45 10/22/21 15:46 10/22/21 16:00 Temperature Pulse Rate 123 H 123 H 122 H Respiratory Rate 33 H 37 H 33 H Blood Pressure 92/64 L Pulse Oximetry 97 98 95 10/22/21 16:01 10/22/21 16:15 10/22/21 16:30 Temperature Pulse Rate 123 H 120 H Respiratory Rate 23 H 23 H Blood Pressure 99/80 L 90/64 L Pulse Oximetry 95 95 10/22/21 16:35 10/22/21 16:45 10/22/21 16:46 Temperature Pulse Rate Respiratory Rate Blood Pressure 110/80 Pulse Oximetry 99 98 10/22/21 17:00 10/22/21 17:01 10/22/21 17:15 Temperature Pulse Rate Respiratory Rate Blood Pressure 93/70 L Pulse Oximetry 95 96 100 10/22/21 17:16 10/22/21 17:30 10/22/21 17:32 Temperature Pulse Rate 110 H Respiratory Rate 26 H Blood Pressure 107/74 Pulse Oximetry 100 97 10/22/21 17:47 10/22/21 17:48 10/22/21 18:00 Temperature Pulse Rate Respiratory Rate Blood Pressure 106/68 110/75 Pulse Oximetry 98 10/22/21 18:03 10/22/21 18:15 10/22/21 18:16 Temperature Pulse Rate Respiratory Rate Blood Pressure 96/67 L Pulse Oximetry 93 100 99 10/22/21 18:24 10/22/21 18:40 10/22/21 20:00 Temperature 36.8 C 36.6 C Pulse Rate 100 109 H 108 H Respiratory Rate 20 20 18 Blood Pressure 100/67 97/59 L 99/54 L Pulse Oximetry 97 98 98 10/22/21 22:00 10/22/21 23:16 10/22/21 23:50 Temperature 36.6 C Pulse Rate 102 H 101 H 98 Respiratory Rate 20 20 Blood Pressure 106/65 Pulse Oximetry 94 94 10/23/21 02:00 10/23/21 04:00 10/23/21 05:18 Temperature 36.7 C Pulse Rate 96 99 99 Respiratory Rate 20 Blood Pressure 100/60 Pulse Oximetry 99 10/23/21 08:00 10/23/21 08:15 10/23/21 10:00 Temperature 36.4 C L Pulse Rate 87 93 Respiratory Rate 22 H Blood Pressure 87/48 L Pulse Oximetry 98 93 10/23/21 10:22 10/23/21 10:24 10/23/21 10:28 Temperature Pulse Rate 95 96 Respiratory Rate 15 16 Blood Pressure Pulse Oximetry 93 Intake/Output Intake/Output: Intake & Output 10/20/21 10/21/21 10/22/21 10/23/21 23:59 23:59 23:59 23:59 Intake Total 1300 1450 Output Total 800 Balance 1300 650 Meds/Results Medications: Active Medications Generic Name Dose Route Start Last Admin Trade Name Freq PRN Reason
--- NOTE | 2021-10-23 14:54 | PCRCNOTE ---
Past window of treatment time.
[2021-10-23] MEDS: MIRTAZAPINE 30 MG TABLET PO (17:51)
--- NOTE | 2021-10-23 18:10 | PC.NURSE ---
This patient, Esther Brink, was transferred to [facility] on 10/23/21 at 1810. Personal belongings sent with patient. Report given to RAHUL Verde. Appropriate documentation sent with patient.
--- NOTE | 2021-10-23 18:22 | PC.NURSE ---
Patient received from IMU into room 241. Patient oriented to the room.
[2021-10-23] MEDS: MONTELUKAST SODIUM 10 MG TABLET PO (20:37)
[2021-10-24] VITALS (14 sets, daily range): BP systolic 99–113; BP diastolic 50–61; PULSE 61–122; RESP 16–30; TEMP 36.7–37.1; O2SAT 95–98
[2021-10-24] MEDS: methylPREDNISolone SOD SUCC 125 MG VIAL 60 MG IV PUSH ×2 (00:06→06:34)
[2021-10-24] MEDS: ALBUTEROL SULFATE NEB 2.5 MG/0.5 ML INH 5 MG INHALATION ×3 (01:35→15:39)
[2021-10-24] MEDS: IPRATROPIUM BR 0.02% INH SOLN 0.5 MG/2.5 ML VIAL INHALATION ×3 (01:35→15:39)
[2021-10-24] MEDS: ALPRAZolam (*CRX) 0.5 MG TABLET PO ×5 (02:13→21:30)
[2021-10-24] MEDS: THIAMINE HCL 100 MG TABLET PO (08:22)
[2021-10-24] MEDS: ESCITALOPRAM OXALATE 10 MG TABLET 30 MG PO (08:22)
[2021-10-24 08:30] LABS: Hematocrit 34.6 % (37.0-47.0); Hemoglobin 10.1 g/dL (12.0-15.0); Mean Corpuscular HGB Conc 29.2 g/dl (32-36); Mean Corpuscular Hemoglobin 31.2 pg (26-34); Mean Corpuscular Volume 106.8 fl (80-100); Platelet Count Result 414 k/mm3 (150-375); Red Blood Count 3.24 M/mm3 (4.2-5.4); Red Cell Distribution Width 12.5 % (11.5-14.5); White Blood Count 6.8 K/mm3 (4.5-10.0)
[2021-10-24 09:26] LABS: Blood Urea Nitrogen 10 mg/dL (7-17); Calcium 9.1 mg/dL (8.4-10.2); Carbon Dioxide > 40 mmol/L (22-30); Chloride 90 mmol/L (98-107); Estimated CRCL calculation 65 ml/min; Estimated Glomerular Filt Rate > 60; Glucose 210 mg/dL (65-110); Magnesium 2.5 mg/dL (1.6-2.3); Potassium 3.5 mmol/L (3.4-5.0); Sodium 139 mmol/L (137-145)
--- NOTE | 2021-10-24 11:46 | ECG_ITS ---
Measurements Intervals [place] Rate: 119 P: 93 [place]: 155 QRS: 67 QRSD: 90 T: 74 QT: 295 QTc: 416 Interpretive Statements SINUS TACHYCARDIA MINIMAL Q WAVES- ANTEROLAT/INF LEADS BASELINE ARTIFACT- I, AVL, V1-V2 ABNORMAL ECG Electronically Signed On 10-24-2021 12:14:13 DYE BECK REEL OPERATOR by Quinton Bell D.O.
--- NOTE | 2021-10-24 11:48 | PM.IMPN ---
Progress Note: A&P Assessment and Plan (1) Acute exacerbation of chronic obstructive pulmonary disease: Code(s): J44.1 - Chronic obstructive pulmonary disease with (acute) exacerbation Status: Acute Assessment and Plan: Patient is a 56-year-old woman with a history of COPD/emphysema with an FEV of 16% of predicted, chronic tobacco dependence, chronic respiratory failure with hypoxemia and hypercapnia on 4 L of oxygen via nasal cannula and home ventilation at night, who presents emergency room with increased shortness of breath prior to arrival. Patient says she has episodes of shortness of breath which can occur at any time. Usually her home medications help but she did not have any relief and came to the emergency room for further evaluation. Initial labs showed low blood pressure at 89/45, tachycardic heart rate 138, increased respiratory rate at 22, and 100% oxygen saturation on 4 L via nasal cannula. Initial labs showed normal white blood cell count, elevated neutrophil count at 77%,, macrocytic anemia with a hemoglobin of 11, ABG completed which showed a low pH is 7.30 and a high pCO2 it 87, HC03 at 42 which shows respiratory acidosis. Normal BMP other than glucose at a 210. Normal LFTs. Chest x-ray showed diffuse lung disease consistent with severe emphysema and multi focal scarring. CTA chest showed no apparent pulmonary malignancy, bilateral lung resections, severe bullous emphysematous changes of the lungs, small left pleural effusion. Patient was admitted into the hospital for acute on chronic respiratory failure, started on IV antibiotics for possible pneumonia and IV steroids for possible COPD exacerbation. The patient reports no change to her cough, and states that her shortness of breath is intermittent and episodic. She has not had any more episodes of increased shortness of breath since being admitted. Patient's images did not show any signs of a pneumonia on CT scan or chest x-ray so IV antibiotics will be stopped 10/24/20. Patient does not currently have any wheezing in states she had been on a prednisone taper at home prior to coming in. I will decrease her IV Solu-Medrol from 60 mg Q 6-40 mg Q 8. If she is doing well tomorrow and then may be able to switch her to oral prednisone taper. Will continue breathing treatments at this time. Continue monitoring respiratory status. (2) Acute respiratory failure with hypoxia and hypercapnia: Code(s): J96.01 - Acute respiratory failure with hypoxia; J96.02 - Acute respiratory failure with hypercapnia Status: Acute Assessment and Plan: Patient had respiratory acidosis when she came to the hospital. She was otherwise not placed on a BiPAP and mentally was doing well. Currently at this time I feel she is at her baseline. Will order her BiPAP with settings here in the hospital to prevent further hypercapnia. She is currently on her 4 L via nasal cannula. Continue monitoring. (3) Pneumonia: Code(s): J18.9 - Pneumonia, unspecified organism Status: Acute Assessment and Plan: Pneumonia has been ruled out based on chest x-ray and CT of chest. Patient has had no change to her cough. White blood cell count was normal. She is not requiring any more oxygenation from her baseline during this entire hospitalization. Will stop IV antibiotics at this time on 10/24/2021 (4) COPD (chronic obstructive pulmonary disease): Code(s): J44.9 - Chronic obstructive pulmonary disease, unspecified Status: Acute Assessment and Plan: Continue with breathing treatments. She has not had any wheezing will decrease IV Solu-Medrol. Continue monitoring. (5) Protein-calorie malnutrition, severe: Code(s): E43 - Unspecified severe protein-calorie malnutrit
[2021-10-24] MEDS: dilTIAZem HCL 30 MG TABLET PO ×2 (12:28→17:04)
[2021-10-24] MEDS: methylPREDNISolone SOD SUCC 40 MG VIAL IV PUSH ×2 (13:21→20:40)
[2021-10-24] MEDS: ENOXAPARIN 40 MG/0.4 ML SYRINGE SUB-Q (14:04)
[2021-10-24] MEDS: MIRTAZAPINE 30 MG TABLET PO (17:04)
[2021-10-24] MEDS: MONTELUKAST SODIUM 10 MG TABLET PO (20:40)
[2021-10-25] VITALS (15 sets, daily range): BP systolic 90–118; BP diastolic 59–66; PULSE 78–115; RESP 14–20; TEMP 36.6–37.1; O2SAT 91–100
--- NOTE | 2021-10-25 00:01 | PCRCNOTE ---
Window of time for administration has passed. See next scheduled administration.
[2021-10-25] MEDS: ALBUTEROL SULFATE NEB 2.5 MG/0.5 ML INH 5 MG INHALATION ×4 (01:18→19:10)
[2021-10-25] MEDS: IPRATROPIUM BR 0.02% INH SOLN 0.5 MG/2.5 ML VIAL INHALATION ×4 (01:19→19:11)
[2021-10-25 05:46] LABS: Hematocrit 34.1 % (37.0-47.0); Hemoglobin 10.1 g/dL (12.0-15.0); Mean Corpuscular HGB Conc 29.6 g/dl (32-36); Mean Corpuscular Hemoglobin 31.2 pg (26-34); Mean Corpuscular Volume 105.2 fl (80-100); Mean Platelet Volume 9.2 fl (7.4-10.4); Platelet Count Result 425 k/mm3 (150-375); Red Blood Count 3.24 M/mm3 (4.2-5.4); Red Cell Distribution Width 12.4 % (11.5-14.5); White Blood Count 5.3 K/mm3 (4.5-10.0)
[2021-10-25] MEDS: methylPREDNISolone SOD SUCC 40 MG VIAL IV PUSH (05:55)
[2021-10-25] MEDS: dilTIAZem HCL 30 MG TABLET PO (05:55)
[2021-10-25] MEDS: THIAMINE HCL 100 MG TABLET PO (08:09)
[2021-10-25] MEDS: ESCITALOPRAM OXALATE 10 MG TABLET 30 MG PO (08:09)
[2021-10-25] MEDS: ENOXAPARIN 40 MG/0.4 ML SYRINGE SUB-Q (08:09)
[2021-10-25] MEDS: ALPRAZolam (*CRX) 0.5 MG TABLET PO ×2 (08:12→17:20)
[2021-10-25 08:49] LABS: Blood Urea Nitrogen 10 mg/dL (7-17); Carbon Dioxide > 40 mmol/L (22-30); Chloride 90 mmol/L (98-107); Estimated CRCL calculation 82 ml/min; Estimated Glomerular Filt Rate > 60; Glucose 127 mg/dL (65-110); Potassium 3.3 mmol/L (3.4-5.0); Sodium 141 mmol/L (137-145)
[2021-10-25 09:31] LABS: Thyroid Stimulating Hormone Reflex 0.097 uIU/mL (0.465-4.68)
[2021-10-25] MEDS: FLUTICASONE/UMECLIDIN/VILANTER 100-62.5-25 MCG ELLIPTA 1 PUFF INHALATION ×2 (09:37→14:47)
[2021-10-25] MEDS: POTASSIUM CHLORIDE 20 MEQ TABLET 60 MEQ PO (10:07)
[2021-10-25] MEDS: predniSONE 20 MG TABLET 40 MG PO (10:07)
[2021-10-25 10:39] LABS: Folic Acid 3.6 ng/mL (2.76->20)
[2021-10-25 11:22] LABS: Free T4 Free Thyroxine Reflex 0.62 ng/dL (0.78-2.19)
--- NOTE | 2021-10-25 11:42 | PM.IMPN ---
Progress Note: A&P Assessment and Plan (1) Acute exacerbation of chronic obstructive pulmonary disease: Code(s): J44.1 - Chronic obstructive pulmonary disease with (acute) exacerbation Status: Acute Assessment and Plan: Patient is a 56-year-old woman with a history of COPD/emphysema with an FEV of 16% of predicted, chronic tobacco dependence, chronic respiratory failure with hypoxemia and hypercapnia on 4 L of oxygen via nasal cannula and home ventilation at night, who presents emergency room with increased shortness of breath prior to arrival. Patient says she has episodes of shortness of breath which can occur at any time. Usually her home medications help but she did not have any relief and came to the emergency room for further evaluation. Initial labs showed low blood pressure at 89/45, tachycardic heart rate 138, increased respiratory rate at 22, and 100% oxygen saturation on 4 L via nasal cannula. Initial labs showed normal white blood cell count, elevated neutrophil count at 77%,, macrocytic anemia with a hemoglobin of 11, ABG completed which showed a low pH is 7.30 and a high pCO2 it 87, HC03 at 42 which shows respiratory acidosis. Normal BMP other than glucose at a 210. Normal LFTs. Chest x-ray showed diffuse lung disease consistent with severe emphysema and multi focal scarring. CTA chest showed no apparent pulmonary malignancy, bilateral lung resections, severe bullous emphysematous changes of the lungs, small left pleural effusion. Patient was admitted into the hospital for acute on chronic respiratory failure, started on IV antibiotics for possible pneumonia and IV steroids for possible COPD exacerbation. The patient reports no change to her cough, and states that her shortness of breath is intermittent and episodic. She has not had any more episodes of increased shortness of breath since being admitted. Patient's images did not show any signs of a pneumonia on CT scan or chest x-ray so IV antibiotics will be stopped 10/24/20. Patient does not currently have any wheezing in states she had been on a prednisone taper at home prior to coming in. I will decrease from IV Solu-Medrol to prednisone taper. Will continue breathing treatments at this time. Continue monitoring respiratory status. (2) Acute respiratory failure with hypoxia and hypercapnia: Code(s): J96.01 - Acute respiratory failure with hypoxia; J96.02 - Acute respiratory failure with hypercapnia Status: Acute Assessment and Plan: Patient had respiratory acidosis when she came to the hospital. She was otherwise not placed on a BiPAP and mentally was doing well. Currently at this time I feel she is at her baseline. Will order her BiPAP with settings here in the hospital to prevent further hypercapnia. She is currently on her 3 L via nasal cannula. Continue monitoring. (3) Pneumonia: Code(s): J18.9 - Pneumonia, unspecified organism Status: Acute Assessment and Plan: Pneumonia has been ruled out based on chest x-ray and CT of chest. Patient has had no change to her cough. White blood cell count was normal. She is not requiring any more oxygenation from her baseline during this entire hospitalization. Will stop IV antibiotics at this time on 10/24/2021 (4) COPD (chronic obstructive pulmonary disease): Code(s): J44.9 - Chronic obstructive pulmonary disease, unspecified Status: Acute Assessment and Plan: Continue with breathing treatments. Believe she is doing well and will do a prednisone taper. Continue monitoring. (5) Protein-calorie malnutrition, severe: Code(s): E43 - Unspecified severe protein-calorie malnutrition Status: Acute Assessment and Plan: Regular diet and supplementation
[2021-10-25 13:22] LABS: Total Triiodothyronine (T3) 0.58 NG/ML (0.97-1.69)
--- NOTE | 2021-10-25 16:07 | PC.NURSE ---
When patient is discharging home if friend is unable to bring a tank to the hospital, patient is to take one of our tanks home and Amer from [facility] will bring the tank back to the hospital per Christina from PFT lab.
[2021-10-25] MEDS: MIRTAZAPINE 30 MG TABLET PO (17:20)
[2021-10-25] MEDS: MONTELUKAST SODIUM 10 MG TABLET PO (20:45)
[2021-10-26 02:24] VITALS: PULSE 79
[2021-10-26] MEDS: ALBUTEROL SULFATE NEB 2.5 MG/0.5 ML INH 5 MG INHALATION (02:24)
[2021-10-26] MEDS: IPRATROPIUM BR 0.02% INH SOLN 0.5 MG/2.5 ML VIAL INHALATION (02:24)
[2021-10-26 02:34] VITALS: PULSE 75
[2021-10-26 06:00] VITALS: BP 108/70; PULSE 84; RESP 20; TEMP 36.3; O2SAT 99
[2021-10-26 06:24] LABS: Blood Urea Nitrogen 11 mg/dL (7-17); Calcium 8.9 mg/dL (8.4-10.2); Carbon Dioxide > 40 mmol/L (22-30); Chloride 92 mmol/L (98-107); Estimated CRCL calculation 68 ml/min; Estimated Glomerular Filt Rate > 60; Glucose 93 mg/dL (65-110); Magnesium 2.6 mg/dL (1.6-2.3); Potassium 4.4 mmol/L (3.4-5.0); Sodium 138 mmol/L (137-145)
[2021-10-26] MEDS: ESCITALOPRAM OXALATE 10 MG TABLET 30 MG PO (08:14)
[2021-10-26] MEDS: predniSONE 20 MG TABLET 40 MG PO (08:15)
[2021-10-26] MEDS: ENOXAPARIN 40 MG/0.4 ML SYRINGE SUB-Q (08:15)
[2021-10-26] MEDS: CYANOCOBALAMIN 1,000 MCG TABLET 1000 MCG PO (08:15)
[2021-10-26] MEDS: FOLIC ACID 0.4 MG TABLET PO (08:15)
[2021-10-26] MEDS: ALPRAZolam (*CRX) 0.5 MG TABLET PO ×2 (08:18→12:41)
--- NOTE | 2021-10-26 12:17 | PM.DS ---
DS: Admitting Diagnosis Discharge Date 10/26/21 Admitting Diagnosis SOB DS: Discharge Diagnosis Discharge Diagnosis (1) Acute exacerbation of chronic obstructive pulmonary disease: Code(s): J44.1 - Chronic obstructive pulmonary disease with (acute) exacerbation Status: Acute Assessment and Plan: Patient is a 56-year-old woman with a history of COPD/emphysema with an FEV of 16% of predicted, chronic tobacco dependence, chronic respiratory failure with hypoxemia and hypercapnia on 4 L of oxygen via nasal cannula and home ventilation at night, who presents emergency room with increased shortness of breath prior to arrival. Patient says she has episodes of shortness of breath which can occur at any time. Usually her home medications help but she did not have any relief and came to the emergency room for further evaluation. Initial labs showed low blood pressure at 89/45, tachycardic heart rate 138, increased respiratory rate at 22, and 100% oxygen saturation on 4 L via nasal cannula. Initial labs showed normal white blood cell count, elevated neutrophil count at 77%,, macrocytic anemia with a hemoglobin of 11, ABG completed which showed a low pH is 7.30 and a high pCO2 it 87, HC03 at 42 which shows respiratory acidosis. Normal BMP other than glucose at a 210. Normal LFTs. Chest x-ray showed diffuse lung disease consistent with severe emphysema and multi focal scarring. CTA chest showed no apparent pulmonary malignancy, bilateral lung resections, severe bullous emphysematous changes of the lungs, small left pleural effusion. Patient was admitted into the hospital for acute on chronic respiratory failure, started on IV antibiotics for possible pneumonia and IV steroids for possible COPD exacerbation. The patient reports no change to her cough, and states that her shortness of breath is intermittent and episodic. She has not had any more episodes of increased shortness of breath since being admitted. Patient's images did not show any signs of a pneumonia on CT scan or chest x-ray so IV antibiotics will be stopped 10/24/21. Patient does not currently have any wheezing in states she had been on a prednisone taper at home prior to coming in. I will decrease from IV Solu-Medrol to prednisone taper. Will continue breathing treatments at this time. She is at her baseline at this time. Continue home medications and prednisone taper. (2) Acute respiratory failure with hypoxia and hypercapnia: Code(s): J96.01 - Acute respiratory failure with hypoxia; J96.02 - Acute respiratory failure with hypercapnia Status: Acute Assessment and Plan: Patient had respiratory acidosis when she came to the hospital. She was otherwise not placed on a BiPAP and mentally was doing well. Currently at this time I feel she is at her baseline. Will order her BiPAP with settings here in the hospital to prevent further hypercapnia. She is currently on her 3 L via nasal cannula. Baseline (3) Pneumonia: Code(s): J18.9 - Pneumonia, unspecified organism Status: Acute Assessment and Plan: Pneumonia has been ruled out based on chest x-ray and CT of chest. Patient has had no change to her cough. White blood cell count was normal. She is not requiring any more oxygenation from her baseline during this entire hospitalization. Will stop IV antibiotics at this time on 10/24/2021 (4) COPD (chronic obstructive pulmonary disease): Code(s): J44.9 - Chronic obstructive pulmonary disease, unspecified Status: Acute Assessment and Plan: Continue with breathing treatments. Believe she is doing well and will do a prednisone taper upon discharge (5) Protein-calorie malnutrition, severe: Code(s): E43 - Unspecified severe protein-damari
[2021-10-26 14:14] VITALS: BP 113/68; PULSE 108; RESP 18; TEMP 36.7; O2SAT 97
[2021-10-31 15:31] LABS: Adrenocorticotropic Hormone <5 pg/mL (6-50)
== END 2021-10-26 14:55 | disposition home or self-care (01) | DRG 190 ==
LOC: ANHED 14:17 → ANHIMU 16:12 → ANH2MED 10-23 18:21
PROVIDERS: Admitting Provider Student in an Organized Health Care Education/Training Program; Emergency Provider Emergency Medicine; PCP Family Medicine; Visit Provider Physician Assistant
DX: J43.9 Emphysema, unspecified (principal); J96.21 Acute and chronic respiratory failure with hypoxia; J96.22 Acute and chronic respiratory failure with hypercapnia; E43 Unspecified severe protein-calorie malnutrition; Z68.1 Body mass index [BMI] 19.9 or less, adult; R64 Cachexia; Z20.822 Contact with and (suspected) exposure to COVID-19; E55.9 Vitamin D deficiency, unspecified; F41.1 Generalized anxiety disorder; D51.3 Other dietary vitamin B12 deficiency anemia; K21.9 Gastro-esophageal reflux disease without esophagitis; M81.0 Age-related osteoporosis without current pathological fracture; R00.0 Tachycardia, unspecified; E03.8 Other specified hypothyroidism; Z87.891 Personal history of nicotine dependence
CPT/HCPCS: 36415; 36600; 70553; 71045; 71275; 80048; 80053; 81001; 82024; 82375; 82607; 82746; 82805; 83050; 83735; 84145; 84439; 84443; 84480; 85025; 85027; 87040; 87426; 93005; 94640; 96361; 96365; 96367; 96375; 97162; 97165; 99285; A9270; A9577; C9803; G0378; J0456; J0696; J1650; J2920; J2930; J7030; J7512; Q9967

== ENCOUNTER 2021-10-29 02:55 | Emergency (ER) | payer MEDICARE, MEDICAID, SELFPAY ==
[2021-10-29] VITALS (25 sets, daily range): BP systolic 94–140; BP diastolic 65–127; PULSE 98–123; RESP 12–29; O2SAT 90–100
--- NOTE | ~2021-10-29 | XR_ITS ---
EXAMINATION: XR chest 1V portable DATE: 10/29/2021 03:40 INDICATION: Dyspnea. COPD. TECHNIQUE: frontal view of the chest was obtained. COMPARISON: Chest radiograph and CT dated 10/22/2021 FINDINGS: Suture lines in the bilateral upper lung zones consistent with prior partial pneumonectomies. Hyperex pansion of lungs with regions of increased lucency and architectural distortion consistent with emphy sema. New airspace opacity at the cephalad margin of a region of bullous changes at the left lower uskh ng zone. Blunting at the left costophrenic angle consistent with persistent small left pleural effus ion. No pneumothorax or right-sided pleural effusion. Heart size is normal. IMPRESSION: 1. New airspace opacity in the left lower lung zone which could represent atelectasis, pneumonia or l oculated component of a small left pleural effusion. 2. Emphysema. Reviewed, dictated and finalized at location A. ING EFFICIENCY COURSE DIRECTOR IMPRESSION: 1. New airspace opacity in the left lower lung zone which could represent atele ctasis, pneumonia or loculated component of a small left pleural effusion. 2. Emphysema.
--- NOTE | ~2021-10-29 | CT_ITS ---
EXAMINATION: CTA chest PE protocol EXAM DATE: 10/29/2021 04:11 INDICATION: HX OF COPD. Shortness of breath. History of COVID. Pulmonary embolism. TECHNIQUE: Spiral CTA of the chest (pulmonary arteries) was performed with 100 cc Omnipaque 350 intr avenous contrast injection. Images were acquired during the pulmonary arterial phase. Coronal maxi mum intensity projection 3D-reconstructions were created by the technologist on dedicated workstation . Axial, coronal and sagittal reformatted images were reviewed. The dose-length product (DLP) for t his examination was 146.89 mGy-cm. The exposure was tailored according to patient size (auto mA exp osure control), and iterative reconstruction (ASIR) was used as additional dose reduction technique. Comparison is made to prior examination from 10/22/2021. FINDINGS: Pulmonary arteries are well opacified and without intraluminal filling defects. No thora cic aortic dissection. There is severe emphysema. Left basilar linear atelectasis. Evidence of parti al pneumonectomies bilaterally, could be the upper lobes resected. Trace pericardial effusion. Trac heobronchial tree is patent. There is no mediastinal, hilar or axillary lymphadenopathy. There is no pneumothorax. Normal heart size. There is mild coronary arterial calcification, arterial scler osis. Upper abdomen is unremarkable. No osteoblastic or osteolytic lesions identified. T6 burst fr acture without retropulsion. Mild compression fracture of T9. These appear chronic, unchanged. IMPRESSION: 1. No acute cardiopulmonary findings or interval change. 2. Severe emphysema. 3. Chronic thoracic fractures. Reviewed, dictated and finalized at location A. NE PRODUCER
--- NOTE | 2021-10-29 03:02 | ECG_ITS ---
Measurements Intervals [place] Rate: 92 P: 89 [place]: 132 QRS: 62 QRSD: 82 T: 72 QT: 351 QTc: 436 Interpretive Statements SINUS RHYTHM MINIMAL Q WAVES- ANTEROLAT/INF LEADS BASELINE ARTIFACT- I, II, III, AVR, AVL, AVF, V1-V6 BORDERLINE ECG Electronically Signed On 10-29-2021 6:02:49 BRAZER RESISTANCE by Quinton Bell D.O.
[2021-10-29] MEDS: methylPREDNISolone SOD SUCC 125 MG VIAL IV PUSH (03:08)
[2021-10-29] MEDS: LORazepam INJ (*CRX) 2 MG/ML VIAL 0.5 MG IV PUSH (03:08)
[2021-10-29 03:22] LABS: Eosinophils Absolute Auto 0.2 K/mm3 (0-0.3); Eosinophils Percent Auto 1.5 % (0-4.4); Hematocrit 35.9 % (37.0-47.0); Immature Granulocyte Absolute 0.03 K/mm3 (0.00-0.031); Immature Granulocyte Percent A 0.2 % (0-0.5); Lymphocytes Percent Auto 4.9 % (18.3-44.2); Mean Corpuscular HGB Conc 30.6 g/dl (32-36); Mean Corpuscular Hemoglobin 31.2 pg (26-34); Mean Corpuscular Volume 101.7 fl (80-100); Mean Platelet Volume 8.6 fl (7.4-10.4); Monocytes Percent Auto 7.7 % (2.6-8.5); Neutrophils Absolute Auto 10.6 K/mm3 (1.3-6.7); Neutrophils Percent Auto 85.7 % (45.5-73.1); Platelet Count Result 486 k/mm3 (150-375); Red Blood Count 3.53 M/mm3 (4.2-5.4); Red Cell Distribution Width 12.9 % (11.5-14.5); White Blood Count 12.4 K/mm3 (4.5-10.0)
[2021-10-29 03:33] LABS: Alanine Aminotransferase 24 U/L (4-35); Albumin Level 3.6 g/dL (3.5-5.1); Alkaline Phosphatase 94 U/L (38-126); Anion Gap 7 mmol/L (8-16); Aspartate Amino Transferase 29 U/L (14-36); Bilirubin,Total 0.2 mg/dL (0.2-1.3); Blood Urea Nitrogen 10 mg/dL (7-17); Calcium 8.4 mg/dL (8.4-10.2); Carbon Dioxide 36 mmol/L (22-30); Chloride 91 mmol/L (98-107); Estimated CRCL calculation 114 ml/min; Estimated Glomerular Filt Rate > 60; Glucose 148 mg/dL (65-110); Potassium 3.7 mmol/L (3.4-5.0); Sodium 134 mmol/L (137-145)
[2021-10-29 03:34] LABS: Alveolar/Arterial O2 Gradient 31.7 mmHg; Base Excess ABG 12.4 mEq/l (+/-2.0); Fractional Inspired Oxygen 28 %; HCO3 ABG 41.2 mEq/l (22.0-26.0); Lactic Acid Reflex 1.6 mmol/L (0.7-2.1); Oxygen Content ABG 15.2 %vol (16.0-22.0); Oxygen Saturation ABG 93.3 % (95.0-100.0); PO2 ABG 74.5 mmHg (80.0-100.0); PO2 FiO2 Ratio Arterial Blood 2.66 %; Total Hemoglobin 11.6 g/dL (12.0-18.0); pH ABG 7.334 (7.350-7.450)
--- NOTE | 2021-10-29 03:34 | ED.GENADULT ---
HPI - General Adult General Chief complaint: Shortness of Breath/Dyspnea Stated complaint: SOB Time Seen by Provider: 10/29/21 02:59 History of Present Illness HPI narrative: Patient 56-year-old female presents the emergency department with chief complaint of shortness of breath. The patient reports she has history of COPD also had a recent pneumonia and admission to the hospital. The patient states this evening she started getting more anxious and more short of breath. Patient states that she was given an albuterol treatment by EMS prior to arrival but helped a little bit but reports that she still feels very anxious. Patient denies fever denies chills denies productive cough. Related Data Home Medications Medication Instructions Recorded Confirmed escitalopram oxalate 30 mg PO DAILY 11/15/19 10/22/21 mirtazapine 30 mg PO QPM 10/22/21 10/22/21 montelukast 10 mg PO HS 10/22/21 10/22/21 thiamine mononitrate (vit B1) 100 mg PO DAILY 10/22/21 10/22/21 [Vitamin B-1 (mononitrate)] Allergies Allergy/AdvReac Type Severity Reaction Status Date / Time No Known Allergies Allergy Verified 08/20/21 14:24 Review of Systems Review of Systems: A 10 system review of systems was completed on the patient and is negative except for what is stated in the HPI. Nursing and ancillary documentation was reviewed. [facility] Past Medical History Medical History Abnormal EKG EKG has previously shown ST elevation which appears to be early repolarization. Alcohol abuse Anorexia Anxiety Asthma B12 deficiency anemia Chronic anemia Chronic respiratory failure with hypoxia and hypercapnia COPD with emphysema Gastroesophageal reflux disease Generalized anxiety disorder with panic attacks Spontaneous pneumothorax (~08/2012) Several pneumothoraces status post VATS procedure and apical blebectomy as well as pleurodesis. Tobacco abuse Vitamin D deficiency Surgical History Surgical History History of bilateral tubal ligation History of History of hip surgery (~07/2019) ORIF of right hip fracture. History of tonsillectomy Status post thoracotomy Left-sided VATS procedure and apical bleb resection with pleurodesis. Family History Family History Father Acute myocardial infarction Father No problems noted. Unknown No problems noted. Mother No problems noted. Sibling No problems noted. Social History Social History Social History: The patient lives with her 16-year-old son in [place]. She has 2 other sons who are grown out of the home. 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 She is a former smoker but cannot tell me when she quit smoking cigarettes. She smoked as many as 2 packs of cigarettes per day. She has significantly cut back in her drinking. She denies illicit substance use. Her son Lino Foote and ex- Neo are her surrogate decision maker and she wishes to be a full code. Smoking packs per day: 1.5 Smoking cigarettes per day: 30.0 Years smoked: 45 Smoking pack-years: 67.50 Smoking status: Former smoker Tobacco type: cigarettes Second hand tobacco smoke exposure: Yes Additional smoking assessment comments: Patient states she no longer smokes but can't say when she quit Alcohol intake: former Drinks per week: 5 Substance use: never Substance use type: marijuana Last use: 10/18/21 Additional living arrangements comments: Lives with her 16-year-old son. Gender identity (if verbalized by the patient): Female Spiritual care concerns: No Agree to blood products: Yes Exam Narrative: GENERAL: Well-appearing, well-nourished, and in no acute distress. HEAD: [place]
[2021-10-29 03:36] LABS: Device NASAL CANNULA; Modified Allen's Test Pass; PCO2 ABG 79.2 mmHg (35.0-45.0); Site Drawn RIGHT RADIAL
[2021-10-29 03:45] LABS: NT Pro B Type Natriuretic Pept 149 pg/mL (5-100); Troponin I 0.014 ng/mL (0.000-0.034)
[2021-10-29 04:40] LABS: Add Urine Microscopic? YES; Appearance Urine Clear (Clear); Bilirubin Urine Negative (Negative); Blood Urine Negative (Negative); Color Urine Colorless (Yellow); Glucose Urine UA Negative (Negative); Ketones Urine Negative (Negative); Leukocyte Esterase Ur Trace LEU/UL (Negative); Mucus Urine Rare /lpf; Nitrate Urine Negative (Negative); Protein Urine Negative (Negative); Specific Grav Ur 1.014 (1.001-1.035); Squamous Epithelial Cell Urine Rare /hpf (Few); Urobilinogen Urine Negative mg/dL (<2.0); WBC Urine 0-3 /hpf
[2021-10-29 05:01] LABS: Alveolar/Arterial O2 Gradient 52.4 mmHg; Base Excess ABG 10.5 mEq/l (+/-2.0); Fractional Inspired Oxygen 28 %; HCO3 ABG 37.6 mEq/l (22.0-26.0); Oxygen Content ABG 15.2 %vol (16.0-22.0); Oxygen Saturation ABG 93.7 % (95.0-100.0); Oxyhemoglobin 93.4 % THb (90.0-100.0); PO2 ABG 71.5 mmHg (80.0-100.0); PO2 FiO2 Ratio Arterial Blood 2.55 %; Total Hemoglobin 11.5 g/dL (12.0-18.0); pH ABG 7.386 (7.350-7.450)
[2021-10-29 05:05] LABS: Device NASAL CANNULA; Modified Allen's Test Pass; PCO2 ABG 64.2 mmHg (35.0-45.0); Site Drawn RIGHT RADIAL
--- NOTE | 2021-10-29 07:05 | PC.NURSE ---
RN was able to get in contact with Neo cruz [phone], he is to come to ER to get pts keys, go get O2 take from pts home, then come back to ER for pt. ERP put in order for anxiety meds due to pt stating that she is out of them at home. pt will need to call PCP this AM to get refill on anxiety meds
[2021-10-29] MEDS: ALPRAZolam (*CRX) 0.5 MG TABLET PO (08:09)
== END 2021-10-29 08:45 | disposition home or self-care (01) ==
PROVIDERS: Emergency Provider Emergency Medicine; PCP Family Medicine
DX: J44.1 Chronic obstructive pulmonary disease with (acute) exacerbation (principal); J96.11 Chronic respiratory failure with hypoxia; J96.12 Chronic respiratory failure with hypercapnia; D51.9 Vitamin B12 deficiency anemia, unspecified; K21.9 Gastro-esophageal reflux disease without esophagitis; F41.9 Anxiety disorder, unspecified; R94.31 Abnormal electrocardiogram [ECG] [EKG]; Z99.81 Dependence on supplemental oxygen; Z87.891 Personal history of nicotine dependence
CPT/HCPCS: 36415; 36600; 71045; 71275; 80053; 81001; 82805; 83605; 83880; 84484; 85025; 93005; 96374; 96375; 99284; A9270; J2060; J2930; Q9967

== ENCOUNTER 2021-11-17 10:36 | Emergency (ER) | payer MEDICARE, MEDICAID, SELFPAY ==
--- NOTE | ~2021-11-17 | XR_ITS ---
EXAMINATION: XR chest 1V portable DATE: 11/17/2021 12:03 INDICATION: Cough. TECHNIQUE: A single frontal view of the chest was obtained. COMPARISON: Chest single view 10/29/2021, chest CT 10/29/2021 FINDINGS: There is severe emphysema with multifocal scarring. There are staple lines in the upper lob es. No pleural effusion or pneumothorax. The heart size is normal. There is an old healed fracture of left seventh rib. IMPRESSION: 1. Severe emphysema with multifocal scarring. Reviewed, dictated and finalized at location A. RAFT DELIVERY CHECKER
[2021-11-17 10:36] VITALS: BP 92/58; PULSE 106; RESP 19; TEMP 36.6; O2SAT 100
--- NOTE | 2021-11-17 11:00 | PC.NURSE ---
Patient reports that she would just like to go home. Patient states I dont need to be here anymore.
--- NOTE | 2021-11-17 11:09 | ED.GENADULT ---
HPI - General Adult General Chief complaint: Anxiety Stated complaint: WEAKNESS/ANXIETY Time Seen by Provider: 11/17/21 10:37 Source: patient Mode of arrival: EMS Limitations: no limitations History of Present Illness HPI narrative: Patient is a 56 yo female with COPD, Respiratory failure, anorexia, anxiety and depression brought in by EMS for anxiety, depression, and weakness. Patient states she is depressed and anxious due to having to bury her son yesterday. She denies HI or SI. She denies starving herself but admits to having lesser appetite due to being sad and limited groceries currently at her home. She denies chest pain, sob, nausea, vomiting, diarrhea, fever, chills or urinary symptoms. She is at her baseline 3L of oxygen use due to respiratory failure and denies having an increase in oxygen demand need from her baseline. She says she does not know why her son called the ambulance and she just wants to go home. Related Data Home Medications Medication Instructions Recorded Confirmed escitalopram oxalate 30 mg PO DAILY 11/15/19 11/06/21 mirtazapine 30 mg PO QPM 10/22/21 11/06/21 montelukast 10 mg PO HS 10/22/21 11/06/21 thiamine mononitrate (vit B1) 100 mg PO DAILY 10/22/21 11/06/21 [Vitamin B-1 (mononitrate)] Allergies Allergy/AdvReac Type Severity Reaction Status Date / Time No Known Allergies Allergy Verified 11/17/21 10:41 Review of Systems Review of Systems: CONSTITUTIONAL: Reports decreased appetite Denies fever, chills, or sweats. EYES: Denies visual changes, redness, or discharge. ENT: Denies rhinorrhea, congestion, sore throat, or otalgia. CARDIOVASCULAR: Denies chest pain, palpitations, or edema. RESPIRATORY: Denies cough or dyspnea. GASTROINTESTINAL: Denies abdominal pain, nausea, vomiting, or diarrhea. GENITOURINARY: Denies dysuria or hematuria. SKIN: Denies rash or itching. MUSCULOSKELETAL: Denies back pain, myalgia, or joint pain NEUROLOGIC: Denies headache, numbness, dizziness, or weakness. PSYCHIATRIC: Reports anxiety and depression. FORMERLY [facility], [facility] Past Medical History Medical History Abnormal EKG EKG has previously shown ST elevation which appears to be early repolarization. Alcohol abuse Anorexia Anxiety Asthma B12 deficiency anemia Chronic anemia Chronic respiratory failure with hypoxia and hypercapnia COPD with emphysema Gastroesophageal reflux disease Generalized anxiety disorder with panic attacks Spontaneous pneumothorax (~08/2012) Several pneumothoraces status post VATS procedure and apical blebectomy as well as pleurodesis. Tobacco abuse Vitamin D deficiency Surgical History Surgical History History of bilateral tubal ligation History of History of hip surgery (~07/2019) ORIF of right hip fracture. History of tonsillectomy Status post thoracotomy Left-sided VATS procedure and apical bleb resection with pleurodesis. Family History Family History Father Acute myocardial infarction Father No problems noted. Unknown No problems noted. Mother No problems noted. Sibling No problems noted. Social History Social History Social History: The patient lives with her 16-year-old son in [place]. She has 2 other sons who are grown out of the home. 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 She is a former smoker but cannot tell me when she quit smoking cigarettes. She smoked as many as 2 packs of cigarettes per day. She has significantly cut back in her drinking. She denies illicit substance use. Her son Lino Foote and ex- Neo are her surrogate decision maker and she wishes to be a full code. Smoking packs per day: 1.5 Smoking cigarettes per day: 30.0 Years smoked: 45 Smoking pa
[2021-11-17] MEDS: ALPRAZolam (*CRX) 0.5 MG TABLET PO (11:58)
[2021-11-17] MEDS: SODIUM CHLORIDE 0.9% IV 1,000 ML 999 ML IV CONT (11:58)
[2021-11-17 12:02] LABS: Basophils Percent Auto 0.7 % (0.2-1.2); Eosinophils Absolute Auto 0.3 K/mm3 (0-0.3); Eosinophils Percent Auto 7.5 % (0-4.4); Hematocrit 34.4 % (37.0-47.0); Hemoglobin 10.5 g/dL (12.0-15.0); Immature Granulocyte Absolute 0.01 K/mm3 (0.00-0.031); Immature Granulocyte Percent A 0.2 % (0-0.5); Lymphocytes Absolute Auto 0.57 K/mm3 (0.9-3.2); Lymphocytes Percent Auto 13.3 % (18.3-44.2); Mean Corpuscular HGB Conc 30.5 g/dl (32-36); Mean Corpuscular Hemoglobin 31.7 pg (26-34); Mean Corpuscular Volume 103.9 fl (80-100); Mean Platelet Volume 8.5 fl (7.4-10.4); Monocytes Absolute Auto 0.3 K/mm3 (0.1-0.6); Monocytes Percent Auto 7.2 % (2.6-8.5); Neutrophils Percent Auto 71.1 % (45.5-73.1); Platelet Count Result 238 k/mm3 (150-375); Red Blood Count 3.31 M/mm3 (4.2-5.4); Red Cell Distribution Width 12.4 % (11.5-14.5); White Blood Count 4.3 K/mm3 (4.5-10.0)
[2021-11-17 12:16] VITALS: BP 83/57; PULSE 106
[2021-11-17 12:17] VITALS: BP 82/60; PULSE 103
[2021-11-17 12:18] VITALS: BP 80/56; PULSE 109
[2021-11-17 12:39] LABS: Alanine Aminotransferase 13 U/L (4-35); Albumin Level 3.4 g/dL (3.5-5.1); Alkaline Phosphatase 87 U/L (38-126); Aspartate Amino Transferase 22 U/L (14-36); Bilirubin,Total 0.2 mg/dL (0.2-1.3); Calcium 8.6 mg/dL (8.4-10.2); Carbon Dioxide > 40 mmol/L (22-30); Chloride 94 mmol/L (98-107); Estimated CRCL calculation 92 ml/min; Estimated Glomerular Filt Rate > 60; Glucose 128 mg/dL (65-110); Potassium 3.4 mmol/L (3.4-5.0); Sodium 139 mmol/L (137-145)
[2021-11-17 12:51] LABS: Blood Urea Nitrogen < 2 mg/dL (7-17)
--- NOTE | 2021-11-17 13:09 | PC.NURSE ---
Patient's friend Neo called to take patient home, voice message left at this time.
--- NOTE | 2021-11-17 13:18 | PC.NURSE ---
[facility] accepted return ETA 30min
[2021-11-17 14:14] VITALS: BP 114/63; PULSE 98; RESP 18; O2SAT 99
== END 2021-11-17 14:16 | disposition home or self-care (01) ==
PROVIDERS: Physician Assistant; Emergency Provider Emergency Medicine; PCP Family Medicine
DX: F41.8 Other specified anxiety disorders (principal); R63.0 Anorexia; Z68.1 Body mass index [BMI] 19.9 or less, adult; J96.12 Chronic respiratory failure with hypercapnia; J96.11 Chronic respiratory failure with hypoxia; Z99.81 Dependence on supplemental oxygen; J43.9 Emphysema, unspecified; D51.9 Vitamin B12 deficiency anemia, unspecified; E55.9 Vitamin D deficiency, unspecified; K21.9 Gastro-esophageal reflux disease without esophagitis; Z87.891 Personal history of nicotine dependence
CPT/HCPCS: 36415; 71045; 80053; 85025; 96360; 99283; A9270; J7030

== ENCOUNTER 2021-11-19 18:13 | Inpatient (IN) | payer MEDICARE, MEDICAID, SELFPAY ==
--- NOTE | ~2021-11-19 | XR_ITS ---
EXAMINATION: XR chest 1V portable EXAM DATE: 11/19/2021 21:46 INDICATION: Chest pain. TECHNIQUE: Portable AP frontal chest x-ray was obtained. Comparison is made to prior examination from 11/17/2021. FINDINGS: Suture material along the upper lung zones bilaterally. The lungs are hyperinflated which c an be seen with chronic obstructive pulmonary disease (a clinical diagnosis of functional impairment) , but is not diagnostic of it. Bilateral linear opacities consistent with scarring. Cardiomediastinal silhouette is normal. There is no pneumothorax suspected. The bones are osteopenic. There are bony degenerative changes. Old left 7th rib fracture. IMPRESSION: 1. Chronic surgical changes and regions of scarring. 2. Chronic hyperinflation. Reviewed, dictated and finalized at location G. CE NURSE
[2021-11-19 18:16] VITALS: BP 96/68; PULSE 134; RESP 18; TEMP 37; O2SAT 100
[2021-11-19 20:36] VITALS: BP 103/65; PULSE 121; RESP 16; O2SAT 100
[2021-11-19 21:00] VITALS: BP 101/54; PULSE 119; RESP 30; O2SAT 100
--- NOTE | 2021-11-19 21:32 | ECG_ITS ---
Measurements Intervals [place] Rate: 106 P: 85 RI: 154 QRS: 66 QRSD: 87 T: 79 QT: 325 QTc: 431 Interpretive Statements SINUS TACHYCARDIA BASELINE WANDER- I, V2 ABNORMAL ECG Electronically Signed On 11-20-2021 6:33:00 PIPELINE CONSTRUCTION INSPECTOR by Quinton Bell D.O.
[2021-11-19] MEDS: methylPREDNISolone SOD SUCC 125 MG VIAL IV PUSH (21:45)
[2021-11-19 21:50] LABS: Basophils Percent Auto 0.3 % (0.2-1.2); Eosinophils Absolute Auto 0.3 K/mm3 (0-0.3); Eosinophils Percent Auto 5.7 % (0-4.4); Hemoglobin 10.7 g/dL (12.0-15.0); Immature Granulocyte Absolute 0.02 K/mm3 (0.00-0.031); Immature Granulocyte Percent A 0.3 % (0-0.5); Lymphocytes Percent Auto 17.4 % (18.3-44.2); Mean Corpuscular HGB Conc 29.7 g/dl (32-36); Mean Corpuscular Hemoglobin 31.4 pg (26-34); Mean Corpuscular Volume 105.6 fl (80-100); Mean Platelet Volume 8.7 fl (7.4-10.4); Monocytes Absolute Auto 0.5 K/mm3 (0.1-0.6); Monocytes Percent Auto 9.4 % (2.6-8.5); Neutrophils Absolute Auto 3.8 K/mm3 (1.3-6.7); Neutrophils Percent Auto 66.9 % (45.5-73.1); Platelet Count Result 346 k/mm3 (150-375); Red Blood Count 3.41 M/mm3 (4.2-5.4); Red Cell Distribution Width 12.7 % (11.5-14.5); White Blood Count 5.7 K/mm3 (4.5-10.0)
[2021-11-19 22:01] LABS: Alanine Aminotransferase 12 U/L (4-35); Albumin Level 3.5 g/dL (3.5-5.1); Alkaline Phosphatase 87 U/L (38-126); Aspartate Amino Transferase 20 U/L (14-36); Bilirubin,Total 0.2 mg/dL (0.2-1.3); Calcium 8.7 mg/dL (8.4-10.2); Carbon Dioxide > 40 mmol/L (22-30); Chloride 93 mmol/L (98-107); Estimated CRCL calculation 77 ml/min; Estimated Glomerular Filt Rate > 60; Glucose 97 mg/dL (65-110); Potassium 3.1 mmol/L (3.4-5.0); Sodium 136 mmol/L (137-145)
[2021-11-19] MEDS: IPRATROPIUM BR 0.02% INH SOLN 0.5 MG/2.5 ML VIAL INHALATION (22:03)
[2021-11-19] MEDS: ALBUTEROL SULFATE NEB 2.5 MG/0.5 ML INH 5 MG INHALATION (22:03)
[2021-11-19 22:12] LABS: INR 0.8; NT Pro B Type Natriuretic Pept 76 pg/mL (5-100); Troponin I < 0.012 ng/mL (0.000-0.034)
[2021-11-19 22:15] LABS: Blood Urea Nitrogen < 2 mg/dL (7-17)
--- NOTE | 2021-11-19 22:19 | ED.SOB ---
HPI - SOB/Dyspnea General Chief Complaint: Psychiatric Symptoms Stated Complaint: SOB Time Seen by Provider: 11/19/21 21:29 Source: patient Limitations: no limitations History of Present Illness HPI Narrative: Patient is a 56-year-old female complain of shortness of breath that started tonight. Patient has a history of COPD and respiratory failure. Patient on 3 L of oxygen continuously at home. Patient denies any chest pain, abdominal pain, nausea, vomiting, diaphoresis, fever or chills. Related Data Home Medications Medication Instructions Recorded Confirmed escitalopram oxalate 30 mg PO DAILY 11/15/19 11/06/21 mirtazapine 30 mg PO QPM 10/22/21 11/06/21 montelukast 10 mg PO HS 10/22/21 11/06/21 thiamine mononitrate (vit B1) 100 mg PO DAILY 10/22/21 11/06/21 [Vitamin B-1 (mononitrate)] Allergies Allergy/AdvReac Type Severity Reaction Status Date / Time No Known Allergies Allergy Verified 11/17/21 10:41 Review of Systems Review of Systems: All systems reviewed & are unremarkable except as noted in HPI and below Constitutional: Constitutional: Denies body ache(s), Denies chills, Denies excessive sweating, Denies fatigue, Denies fever(s), Denies headache(s), Denies lethargy, Denies malaise, Denies weakness and Denies weight loss Eyes: Eyes: Denies blurry vision, Denies change in vision and Denies loss of vision ENT: Denies dizziness, Denies ear discharge, Denies headache(s), Denies lip swelling, Denies epistaxis, Denies nasal congestion, Denies neck pain, Denies throat swelling and Denies tongue swelling Cardiovascular: Cardiovascular: Denies chest pain, Denies chest pain at rest, Denies chest pain with activity, Denies diaphoresis, Denies rapid heart rate, Denies edema, Denies irregular heart rhythm, Denies lightheadedness and Denies palpitations Respiratory: Respiratory: Denies chest congestion, Denies cough and Denies hemoptysis Gastrointestinal: Gastrointestinal: Denies abdominal pain, Denies melena, Denies hematochezia, Denies diarrhea, Denies nausea, Denies vomiting and Denies hematemesis Musculoskeletal: Musculoskeletal: Denies abnormal gait, Denies deformity, Denies joint swelling, Denies limited range of motion, Denies neck pain and Denies numbness Neurologic: Denies Abnormal speech present, Denies abnormal gait, Denies confusion, Denies dizziness, Denies headache(s), Denies focal weakness, Denies loss of vision, Denies numbness, Denies Other visual disturbances, Denies Sensory deficit (Neuro) and Denies weakness Psychiatric: Psychiatric: Denies confusion, Denies auditory hallucinations, Denies homicidal ideation and Denies suicidal ideation Endocrine: Endocrine: Denies cold intolerance, Denies excessive sweating, Denies fatigue, Denies heat intolerance and Denies palpitations Hematologic/Lymphatic: Hematologic/Lymphatic: Denies easy bleeding and Denies easy bruising Allergic/Immunologic: Allergic/Immunologic: Denies lip swelling, Denies throat swelling and Denies tongue swelling PMFSH Past Medical History Medical History Abnormal EKG EKG has previously shown ST elevation which appears to be early repolarization. Alcohol abuse Anorexia Anxiety Asthma B12 deficiency anemia Chronic anemia Chronic respiratory failure with hypoxia and hypercapnia COPD with emphysema Gastroesophageal reflux disease Generalized anxiety disorder with panic attacks Spontaneous pneumothorax (~08/2012) Several pneumothoraces status post VATS procedure and apical blebectomy as well as pleurodesis. Tobacco abuse Vitamin D deficiency Surgical History Surgical History History of bilateral tubal ligation History of History of hip surgery (~07/2019) ORIF of right hip fracture. History of tonsillectomy Status post thoracotomy Left-sided VATS procedure and apical bleb resection with pleurodesis. Family Hist
[2021-11-19 22:25] VITALS: PULSE 118; RESP 31
[2021-11-19 22:25] LABS: Alveolar/Arterial O2 Gradient 79.9 mmHg; Carboxyhemoglobin 0.3 % THb (0-2.0); Fractional Inspired Oxygen 34 %; HCO3 ABG 40.4 mEq/l (22.0-26.0); Methemoglobin ABG 0.1 %THb (0-1.5); Oxygen Saturation ABG 95.7 % (95.0-100.0); Oxyhemoglobin 95.4 % THb (90.0-100.0); PO2 ABG 83.2 mmHg (80.0-100.0); PO2 FiO2 Ratio Arterial Blood 2.45 %; Reduced Hemoglobin 4.2 %THb (0-5.0); Total Hemoglobin 11.1 g/dL (12.0-18.0); pH ABG 7.391 (7.350-7.450)
[2021-11-19 22:27] LABS: PCO2 ABG 68.1 mmHg (35.0-45.0)
[2021-11-19 22:28] LABS: Device NASAL CANNULA; Liters per Minute 3.5 LPM; Site Drawn RIGHT BRACHIAL
[2021-11-19 22:35] VITALS: PULSE 118; PULSE 120; RESP 28; RESP 30; O2SAT 100
--- NOTE | 2021-11-19 23:57 | PM.IMHP ---
H&P: HPI History of Present Illness Date/Time: 11/19/21 23:57 Chief Complaint: Shortness of breath. Narrative: This is a 56-year-old female with past medical history significant for severe COPD/emphysema, on supplemental oxygen by nasal cannula at home, multiple hospitalizations for COPD exacerbation. Patient was brought to the emergency room due to worsening shortness of breath she was placed on BiPAP. Most of the history has been obtained from emergency room records history taking somehow limited due to BiPAP. Preliminary workup was significant for ABG with a PCO2 of 68. Chest x-ray with no acute findings. CBC significant for hemoglobin of 10 MCV 105. Patient is been admitted for further evaluation management and treatment. Review of Systems Review of Systems: ROS unobtainable: Yes unobtainable due to medical condition (On BiPAP) PMF Past Medical History Medical History (Updated 11/20/21 @ 04:07 by Dexter Laboy MD) Abnormal EKG EKG has previously shown ST elevation which appears to be early repolarization. Alcohol abuse Anorexia Anxiety Asthma B12 deficiency anemia Chronic anemia Chronic respiratory failure with hypoxia and hypercapnia COPD with emphysema Gastroesophageal reflux disease Generalized anxiety disorder with panic attacks Spontaneous pneumothorax (~08/2012) Several pneumothoraces status post VATS procedure and apical blebectomy as well as pleurodesis. Tobacco abuse Vitamin D deficiency Surgical History Surgical History History of bilateral tubal ligation History of History of hip surgery (~07/2019) ORIF of right hip fracture. History of tonsillectomy Status post thoracotomy Left-sided VATS procedure and apical bleb resection with pleurodesis. Family History Family History Father Acute myocardial infarction Father No problems noted. Unknown No problems noted. Mother No problems noted. Sibling No problems noted. Social History Social History Social History: The patient lives with her 16-year-old son in [place]. She has 2 other sons who are grown out of the home. 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 She is a former smoker but cannot tell me when she quit smoking cigarettes. She smoked as many as 2 packs of cigarettes per day. She has significantly cut back in her drinking. She denies illicit substance use. Her son Lino Foote and ex- Neo are her surrogate decision maker and she wishes to be a full code. Smoking packs per day: 1.5 Smoking cigarettes per day: 30.0 Years smoked: 45 Smoking pack-years: 67.50 Smoking status: Former smoker Tobacco type: cigarettes Second hand tobacco smoke exposure: No Smoking end date: 10/19/19 Additional smoking assessment comments: Patient states she no longer smokes but can't say when she quit Alcohol intake: current Drinks per week: 5 Substance use: never Substance use type: does not use Last use: in the 70s per patient Additional living arrangements comments: Lives with her 16-year-old son. Gender identity (if verbalized by the patient): Female Spiritual care concerns: No Agree to blood products: Yes Meds Home Medications and Allergies Home Medications Medication Instructions Recorded Confirmed Type escitalopram oxalate 30 mg PO DAILY 11/15/19 11/20/21 History mirtazapine 30 mg PO QPM 10/22/21 11/20/21 History montelukast 10 mg PO HS 10/22/21 11/20/21 History alprazolam 0.5 mg PO Q6H PRN #10 tablet 10/26/21 11/20/21 Rx aspirin [Adult Low Dose Aspirin] 81 mg PO DAILY #30 tablet 10/26/21 11/20/21 Rx cyanocobalamin (vitamin B-12) 1,000 mcg PO QAM #30 tablet 10/26/21 11/20/21 Rx [Vitamin B-12] folic acid 0.4 mg PO DAILY #30 tablet 10/26/21 11/20/21 R
[2021-11-20] VITALS (36 sets, daily range): BP systolic 91–136; BP diastolic 53–79; PULSE 101–152; RESP 16–36; TEMP 36.1–37.3; O2SAT 92–100; BMI 15.6
[2021-11-20] MEDS: POTASSIUM CHLORIDE 20 MEQ PACKET (FOR LIQUID) 40 MEQ PO (00:06)
[2021-11-20] MEDS: LORazepam INJ (*CRX) 2 MG/ML VIAL 1 MG IV PUSH (00:35)
[2021-11-20 01:16] LABS: Troponin I < 0.012 ng/mL (0.000-0.034)
[2021-11-20 01:25] LABS: SARS-CoV-2 RNA PCR Negative
[2021-11-20] MEDS: ALBUTEROL SULFATE NEB 2.5 MG/0.5 ML INH 5 MG INHALATION ×2 (03:03→08:12)
[2021-11-20] MEDS: IPRATROPIUM BR 0.02% INH SOLN 0.5 MG/2.5 ML VIAL INHALATION ×5 (03:04→21:26)
--- NOTE | 2021-11-20 03:32 | ADMGEN ---
This patient, Esther Brink, was admitted to IMU Room 200-01. Patient/family oriented to hospital policies and general routines including ID bracelet, bed and alarms, visiting hours, pain management, procedures, bathroom and other care routines, personal items, smoking policy, room service/diet, and visiting hours. Information on how to activate the Rapid Response Team has been discussed. Patient/Family are encouraged to report perceived risks to care and to ask questions if they do not understand what they are told or what they should do.
[2021-11-20 04:51] LABS: Troponin I < 0.012 ng/mL (0.000-0.034)
[2021-11-20] MEDS: methylPREDNISolone SOD SUCC 125 MG VIAL 60 MG IV PUSH (05:16)
[2021-11-20] MEDS: ALPRAZolam (*CRX) 0.5 MG TABLET PO ×3 (06:00→20:06)
[2021-11-20 08:19] LABS: Anion Gap -1 mmol/L (8-16); Calcium 8.7 mg/dL (8.4-10.2); Carbon Dioxide 38 mmol/L (22-30); Chloride 99 mmol/L (98-107); Estimated CRCL calculation 75 ml/min; Estimated Glomerular Filt Rate > 60; Glucose 155 mg/dL (65-110); Magnesium 1.6 mg/dL (1.6-2.3); Potassium 4.2 mmol/L (3.4-5.0); Sodium 136 mmol/L (137-145)
[2021-11-20 08:35] LABS: Blood Urea Nitrogen < 2 mg/dL (7-17)
[2021-11-20] MEDS: FOLIC ACID 0.4 MG TABLET PO (08:53)
[2021-11-20] MEDS: CYANOCOBALAMIN 1,000 MCG TABLET 1000 MCG PO (08:53)
[2021-11-20] MEDS: ESCITALOPRAM OXALATE 10 MG TABLET 30 MG PO (08:53)
[2021-11-20] MEDS: ONDANSETRON INJ 4 MG/2 ML VIAL IV PUSH (11:03)
[2021-11-20] MEDS: ALPRAZolam (*CRX) 0.25 MG TABLET PO (11:03)
[2021-11-20 11:13] LABS: D Dimer < 0.27 ug/mL (<0.48)
--- NOTE | 2021-11-20 11:34 | PM.CNPUL ---
Assessment and Plan Assessment and plan (1) COPD (chronic obstructive pulmonary disease): Code(s): J44.9 - Chronic obstructive pulmonary disease, unspecified Status: Acute Assessment and Plan: 56-year-old woman with GOLD grade 4 group B COPD with an FEV1 of 16% predicted on 3 L oxygen 24-7, on nocturnal noninvasive ventilation with a trilogy, on Daliresp and triple inhalers. she is status post left upper lobectomy and bleb resection for spontaneous pneumothorax in 2012. She has pulmonary cachexia. She has multiple hospitalizations for COPD exacerbations. currently will treat patient for COPD exacerbation although she has no change in her cough, phlegm production, phlegm color but she does have increased shortness of breath. I will change her to Solu-Medrol 40 q.6, albuterol 2.5 q.4 nebs, ipratropium 0.5 Q 4 neb. The hospital does not carry Daliresp and if her family can bring that in we will continue that. The patient has had a previous admission to the hospital on 08/21/2021 for noncompliance with her noninvasive ventilation and currently her machine is not working as the dog his chewed through her tubing. I will work with are talent coordinator and her [employer] company to rectify this situation.. Currently she is on 3 L nasal cannula which per the clinic notes is her baseline and her saturations are 94%. She is COVID RT PCR negative. I will send a influenza swab. There are no focal infiltrates on her chest x-ray and I do not think there is a pneumonia. I will treat her for tracheobronchitis empirically with azithromycin. Her BNP is 76 and there is no evidence of fluid overload. Her D-dimer is negative at less than 0.27 and I do not think she has had a PE. Patient has severe COPD and I talked to her about her healthcare wishes regarding resuscitation and or intubation. I try to call her ex- to discuss this with him as that was her request and left a message on his voicemail. I told her given the severity of her lung disease that she would likely not come off of ventilator. Will follow with you. History of Present Illness History of Present Illness Consult date: 11/20/21 Reason for consult: COPD Chief complaint: Acute on chronic respiratory failure, COPD exacerb Narrative: 11/20/2021: This is a new pulmonary consult for COPD with hypoxic and hypercarbic respiratory failure 56-year-old woman with GOLD grade for group B COPD with an FEV1 of 16% predicted on 3 L oxygen 24-7, on nocturnal noninvasive ventilation with a trilogy, on Daliresp and triple inhalers. she is status post left upper lobectomy and bleb resection for spontaneous pneumothorax in 2012. She has pulmonary cachexia. She has multiple hospitalizations for COPD exacerbations including 10/23 through 10/26, 08/21 through 08/22 and ER visits on 08/02 and 11/06. Patient quit smoking a year and half ago and on a good day she can walk across the room. Patient was in her usual state of health when she attended her son's 2-3 days ago. Since then she states that her nerves and her breathing have been worse. She notices no wheezing, no fever, no change in her chronic cough, no hemoptysis and no phlegm production. She does state that a dog chewed her noninvasive ventilator tubing and that she has not been able to wear her mask for the last few weeks. Patient presented to the emergency department with a BUN less than 2, creatinine 0.4, white blood cell count 5.7, BNP 76 and she had an ABG on 3.5 L nasal cannula with pH of 7.37 / 68/83. Patient had a chest x-ray with hyperinflation and no focal infiltrates. Patient was treated for COPD exacerbation with Solu-Medrol, albuterol and ipratropium nebulizers and montelukast. Patient was placed on BiPAP and use BiPAP overnight. 2/ Patient states that she feels about the same she still has dyspnea on exertion and shortness of breath at rest. Currently she is on 3 L nasal cannula saturations
--- NOTE | 2021-11-20 12:00 | PM.IMPN ---
Progress Note: A&P Assessment and Plan (1) Acute exacerbation of chronic obstructive pulmonary disease: Code(s): J44.1 - Chronic obstructive pulmonary disease with (acute) exacerbation Status: Acute Assessment and Plan: Patient states she has had a long few days with burying her son after he overdosed. She has had some increased shortness of breath because they had went to a bar after his and there was a lot of people who were smoking. She has been taking her medications as prescribed without much improvement and was having some increased anxiety and tearfulness prior to arrival which is why her son called EMS. She has not been using her BiPAP machine because the tubing was damaged. [employer] was consulted and he feels at this time will continue treating for a COPD exacerbation with breathing treatments every 4 hours, he started IV azithromycin, IV Solu-Medrol had been started 60 mg every 8 hours but was decreased by the shop and alteration tailor to 40 mg every 6 hours. [employer] Developer also discussed with the patient needing to discuss her code status and possible be a do not intubate given her chronic lung disease. I talked with this with her and her ex- so that they can all talk as a family with her sons. Currently we will defer at a full code unless she decides she would like to change her code status. Will continue monitoring. She pulmonology is input. (2) Acute respiratory failure with hypoxia and hypercapnia: Code(s): J96.01 - Acute respiratory failure with hypoxia; J96.02 - Acute respiratory failure with hypercapnia Status: Acute Assessment and Plan: Patient has not been using her BiPAP at home due to tubing problems. Her ABG when she came in showed elevated pCO2 at 68. She was placed on a continuous BiPAP and is now doing well and off of the BiPAP except for when she sleeps. Continue monitoring. Appreciate pulmonology is input. (3) Tobacco abuse: Code(s): Z72.0 - Tobacco use Status: Chronic Assessment and Plan: Nicotine patch as needed. Educate her for 3 minutes about quitting smoking. (4) Protein-calorie malnutrition, severe: Code(s): E43 - Unspecified severe protein-calorie malnutrition Status: Acute Assessment and Plan: Continue to monitor. Will consult dietitian. Likely secondary to advanced COPD (5) Chronic anemia: Code(s): D64.9 - Anemia, unspecified Status: Acute Assessment and Plan: Blood counts are stable at this time. Continue to monitor (6) Gastroesophageal reflux disease: Code(s): K21.9 - Gastro-esophageal reflux disease without esophagitis Status: Acute Assessment and Plan: Start PPI. Continue to monitor Time Spent With Patient Time with patient: 25 - 35 minutes Subjective Date/time seen: 11/20/21 12:00 Interval history: Date of Service 11/20/21: The patient reports feeling well at this time. She thinks her breathing is back to normal. Is having a little bit of tremors but states that is normal for herself. She denies any chest pain, shortness of breath, change to her cough, wheezing, nausea, vomiting, abdominal pain, leg swelling, calf pain, or any other symptoms at this time. Review of Systems Review of Systems: All systems reviewed & are unremarkable except as noted in HPI and below Exam Narrative: General: 56-year-old woman sitting up in bed, appears slightly anxious because of the conversation with the shop and alteration tailor earlier. She states she is confused with her conversation when he meant. Appears otherwise comfortable, resting comfortably on 4 L via nasal cannula which is her baseline. In no acut
--- NOTE | 2021-11-20 12:41 | PCDIET ---
Pt screened in for BMI of 15.7. Attempted to visit with pt but unable to due to others in room at time of attempt. Per EMR, past weight is approximately 83lbs reported on 08/22/21, current weight is approximately 83lbs reported 11/20/21, showing a stable weight. Current nutrition is a heart healthy diet with no reported intake at this time. No nutritional needs at this time. Will follow up in 3 days.
[2021-11-20] MEDS: ALBUTEROL SULFATE NEB 2.5 MG/0.5 ML INH INHALATION ×3 (13:47→21:26)
[2021-11-20] MEDS: methylPREDNISolone SOD SUCC 40 MG VIAL IV PUSH ×3 (13:52→23:19)
--- NOTE | 2021-11-20 14:33 | PCRCNOTE ---
Spoke to Elis at patient's [facility] [place], [facility], to request new tubing for patient's Trilogy as well as to perform an operational check. Elis states that this will be done prior to patient's discharge home.
[2021-11-20] MEDS: chlordiazePOXIDE (*CRX) 25 MG CAPSULE PO ×2 (14:46→20:06)
[2021-11-20] MEDS: LORazepam INJ (*CRX) 2 MG/ML VIAL 0.5 MG IV PUSH (15:05)
[2021-11-20] MEDS: PROMETHAZINE HCL 25 MG/ML AMPUL 12.5 MG IV PUSH (15:05)
[2021-11-20] MEDS: THIAMINE HCL 200 MG/2 ML VIAL 100 MG IV PUSH (15:05)
[2021-11-20] MEDS: MAGNESIUM SULF 2 GM/WATER 50ML 2 GM/50 ML BAG IVPB (17:03)
[2021-11-20] MEDS: MIRTAZAPINE 30 MG TABLET PO (17:04)
[2021-11-20] MEDS: FOLIC ACID 1 MG/0.2 ML INJ IV PUSH (17:58)
[2021-11-20 18:16] LABS: Glucose Point of Care 136 mg/dl (65-105)
[2021-11-20] MEDS: PANTOPRAZOLE 40 MG TABLET PO (20:06)
[2021-11-20] MEDS: MONTELUKAST SODIUM 10 MG TABLET PO (20:06)
[2021-11-20 23:23] LABS: Glucose Point of Care 179 mg/dl (65-105)
[2021-11-21] VITALS (27 sets, daily range): BP systolic 90–113; BP diastolic 55–70; PULSE 90–115; RESP 15–22; TEMP 36.4–37.4; O2SAT 95–98; BMI 17.7
[2021-11-21] MEDS: ALBUTEROL SULFATE NEB 2.5 MG/0.5 ML INH INHALATION ×6 (00:47→23:22)
[2021-11-21] MEDS: IPRATROPIUM BR 0.02% INH SOLN 0.5 MG/2.5 ML VIAL INHALATION ×6 (00:47→23:22)
[2021-11-21] MEDS: methylPREDNISolone SOD SUCC 40 MG VIAL IV PUSH (05:06)
[2021-11-21 05:21] LABS: Hematocrit 36.3 % (37.0-47.0); Hemoglobin 11.1 g/dL (12.0-15.0); Mean Corpuscular HGB Conc 30.6 g/dl (32-36); Mean Corpuscular Hemoglobin 31.6 pg (26-34); Mean Corpuscular Volume 103.4 fl (80-100); Platelet Count Result 408 k/mm3 (150-375); Red Blood Count 3.51 M/mm3 (4.2-5.4); Red Cell Distribution Width 12.8 % (11.5-14.5); White Blood Count 3.1 K/mm3 (4.5-10.0)
[2021-11-21 05:33] LABS: Blood Urea Nitrogen 8 mg/dL (7-17); Carbon Dioxide > 40 mmol/L (22-30); Chloride 92 mmol/L (98-107); Estimated CRCL calculation 59 ml/min; Estimated Glomerular Filt Rate > 60; Glucose 122 mg/dL (65-110); Potassium 3.9 mmol/L (3.4-5.0); Sodium 136 mmol/L (137-145)
[2021-11-21] MEDS: PANTOPRAZOLE 40 MG TABLET PO ×2 (09:24→20:08)
[2021-11-21] MEDS: CYANOCOBALAMIN 1,000 MCG TABLET 1000 MCG PO (09:25)
[2021-11-21] MEDS: ESCITALOPRAM OXALATE 10 MG TABLET 30 MG PO (09:25)
[2021-11-21] MEDS: ENOXAPARIN 40 MG/0.4 ML SYRINGE SUB-Q (09:25)
[2021-11-21 09:29] LABS: Magnesium 2.6 mg/dL (1.6-2.3)
[2021-11-21] MEDS: FOLIC ACID 1 MG/0.2 ML INJ IV PUSH (09:29)
[2021-11-21] MEDS: ALPRAZolam (*CRX) 0.5 MG TABLET PO ×3 (09:32→23:57)
--- NOTE | 2021-11-21 10:13 | PM.IMPN ---
Progress Note: A&P Assessment and Plan (1) Acute exacerbation of chronic obstructive pulmonary disease: Code(s): J44.1 - Chronic obstructive pulmonary disease with (acute) exacerbation Status: Acute Assessment and Plan: Patient states she has had a long few days with burying her son after he overdosed. She has had some increased shortness of breath because they had went to a bar after his and there was a lot of people who were smoking. She has been taking her medications as prescribed without much improvement and was having some increased anxiety and tearfulness prior to arrival which is why her son called EMS. She has not been using her BiPAP machine because the tubing was damaged. Novelty Chain Maker was consulted and he feels at this time will continue treating for a COPD exacerbation with breathing treatments every 4 hours, he started IV azithromycin, and he is switching IV Solu-Medrol to PO Prednisone 40 mg. IF the patient is feeling better tomorrow on this regemin then she can be discharged home. Her home O2 company will be able to bring her new BiPAP mask and tubing tomorrow at some point for her to continue using. Novelty Chain Maker also discussed with the patient needing to discuss her code status and possible be a do not intubate given her chronic lung disease. I talked with this with her and her ex- so that they can all talk as a family with her sons. Currently we will defer at a full code unless she decides she would like to change her code status. Will continue monitoring. She pulmonology is input. (2) Acute respiratory failure with hypoxia and hypercapnia: Code(s): J96.01 - Acute respiratory failure with hypoxia; J96.02 - Acute respiratory failure with hypercapnia Status: Acute Assessment and Plan: Patient has not been using her BiPAP at home due to tubing problems. Her ABG when she came in showed elevated pCO2 at 68. She was placed on a continuous BiPAP and is now doing well and off of the BiPAP except for when she sleeps. Continue monitoring. Appreciate pulmonology is input. (3) Tobacco abuse: Code(s): Z72.0 - Tobacco use Status: Chronic Assessment and Plan: Nicotine patch as needed. Educate her for 3 minutes about quitting smoking. (4) Protein-calorie malnutrition, severe: Code(s): E43 - Unspecified severe protein-calorie malnutrition Status: Acute Assessment and Plan: Continue to monitor. Will consult dietitian. Likely secondary to advanced COPD (5) Chronic anemia: Code(s): D64.9 - Anemia, unspecified Status: Acute Assessment and Plan: Blood counts are stable at this time. Continue to monitor (6) Gastroesophageal reflux disease: Code(s): K21.9 - Gastro-esophageal reflux disease without esophagitis Status: Acute Assessment and Plan: Start PPI. Continue to monitor Time Spent With Patient Time with patient: 25 - 35 minutes Subjective Date/time seen: 11/21/21 10:13 Interval history: Date of Service 11/21/21: The patient reports feeling well at this time. She slept well last night and doesn't have much tremors today. She was able to eat breakfast without any nausea. She thinks her breathing is back to normal and asking about going home today. She denies any chest pain, shortness of breath, change to her cough, wheezing, nausea, vomiting, abdominal pain, leg swelling, calf pain, or any other symptoms at this time. Review of Systems Review of Systems: All systems reviewed & are unremarkable except as noted in HPI and below Exam Narrative: General: 56-year-old woman sitting up in bed, with a nurse putting a new IV
--- NOTE | 2021-11-21 10:57 | PM.PNPUL ---
Progress Note: A&P Assessment and Plan (1) COPD (chronic obstructive pulmonary disease): Code(s): J44.9 - Chronic obstructive pulmonary disease, unspecified Status: Acute Assessment and Plan: 56-year-old woman with GOLD grade 4 group B COPD with an FEV1 of 16% predicted on 3 L oxygen 24-7, on nocturnal noninvasive ventilation with a trilogy, on Daliresp and triple inhalers. she is status post left upper lobectomy and bleb resection for spontaneous pneumothorax in 2012. She has pulmonary cachexia. She has multiple hospitalizations for COPD exacerbations. currently will treat patient for COPD exacerbation although she has no change in her cough, phlegm production, phlegm color but she does have increased shortness of breath. I will change her to Solu-Medrol 40 q.6, albuterol 2.5 q.4 nebs, ipratropium 0.5 Q 4 neb. The hospital does not carry Daliresp and if her family can bring that in we will continue that. The patient has had a previous admission to the hospital on 08/21/2021 for noncompliance with her noninvasive ventilation and currently her machine is not working as the dog his chewed through her tubing. I will work with are property management coordinator and her [employer] company to rectify this situation.. Currently she is on 3 L nasal cannula which per the clinic notes is her baseline and her saturations are 94%. She is COVID RT PCR negative. I will send a influenza swab. There are no focal infiltrates on her chest x-ray and I do not think there is a pneumonia. I will treat her for tracheobronchitis empirically with azithromycin. Her BNP is 76 and there is no evidence of fluid overload. Her D-dimer is negative at less than 0.27 and I do not think she has had a PE. Patient has severe COPD and I talked to her about her healthcare wishes regarding resuscitation and or intubation. I try to call her ex- to discuss this with him as that was her request and left a message on his voicemail. I told her given the severity of her lung disease that she would likely not come off of ventilator. Currently she is on 3 L nasal cannula saturations 94%. I changed her BiPAP settings to achieve comfort and the settings were respiratory rate 10, pressures 10/5, inspiratory time 0.7. the property management coordinator talked to Karmen regarding her home noninvasive ventilator tubing replacement and they will attempt to rectify the situation prior to discharge. 2/ Patient wore the hospital BiPAP last night and said that the settings felt good and she was able to sleep well. Overall she says that she is breathing back to normal and was asking to be discharged today. Her white blood cell count is 3.1. Currently she is on 3 L nasal cannula with saturations 98%. I have changed her from Solu-Medrol to prednisone 40 today. I obtained a download from 08/23 through 11/18/2021 and the% of days with usage greater than 4 hours is 31.8% and the average use is days used is 19 hours and 26 minutes and there has been no usage since 09/24/21 Consistent with with the patient tells me regarding her broken tubing. Patient is on AVAPS-AE mode with a breath rate set at auto, tidal volume 200, minimal EPAP 5, maximal EPAP 7, minimal pressure support 4, maximal pressure support 20 the rise time of 3. Her average EPAP was approximately 6, her average IPAP ranged from 12-22. Our property management coordinator spoke with Karmen and Karmen plans to have someone verify the machine is working on 11/22/2020. If patient remains clinically stable and we can repair her home noninvasive ventilator she would be ready for discharge from a pulmonary perspective on 11/22/21 on these pulmonary medicines: Prednisone 40 mg PO X3 days (last dose 11/24) Azithromycin 250 mg PO X 3 days (last dose 11/24) Trelegy 100/62.5/25 at 1 puff q.day Rescue albuterol nebulizers 2.5 mg q.i.d. p.r.n. shortness of breath and wheezing Daliresp 500 mcg p.o. q.day Montelukast 10 mg p.o. q.h.s.
[2021-11-21] MEDS: predniSONE 20 MG TABLET 40 MG PO (12:54)
[2021-11-21] MEDS: THIAMINE HCL 200 MG/2 ML VIAL 100 MG IV PUSH (13:35)
[2021-11-21 16:05] LABS: Glucose Point of Care 110 mg/dl (65-105)
[2021-11-21] MEDS: MIRTAZAPINE 30 MG TABLET PO (16:32)
[2021-11-21] MEDS: MONTELUKAST SODIUM 10 MG TABLET PO (20:08)
[2021-11-21 23:30] LABS: Glucose Point of Care 172 mg/dl (65-105)
[2021-11-22] VITALS (32 sets, daily range): BP systolic 90–124; BP diastolic 51–72; PULSE 83–112; RESP 18–22; TEMP 36.2–37; O2SAT 92–100
[2021-11-22] MEDS: ALBUTEROL SULFATE NEB 2.5 MG/0.5 ML INH INHALATION ×5 (03:53→20:21)
[2021-11-22] MEDS: IPRATROPIUM BR 0.02% INH SOLN 0.5 MG/2.5 ML VIAL INHALATION ×5 (03:53→20:21)
[2021-11-22 06:45] LABS: Glucose Point of Care 87 mg/dl (65-105)
[2021-11-22 07:15] LABS: Influenza Control Positive
[2021-11-22] MEDS: CYANOCOBALAMIN 1,000 MCG TABLET 1000 MCG PO (10:15)
[2021-11-22] MEDS: ENOXAPARIN 40 MG/0.4 ML SYRINGE SUB-Q (10:15)
[2021-11-22] MEDS: predniSONE 20 MG TABLET 40 MG PO (10:15)
[2021-11-22] MEDS: ESCITALOPRAM OXALATE 10 MG TABLET 30 MG PO (10:16)
[2021-11-22] MEDS: THIAMINE HCL 200 MG/2 ML VIAL 100 MG IV PUSH (10:17)
[2021-11-22] MEDS: PANTOPRAZOLE 40 MG TABLET PO ×2 (10:17→20:12)
[2021-11-22] MEDS: FOLIC ACID 1 MG/0.2 ML INJ IV PUSH (10:40)
--- NOTE | 2021-11-22 12:35 | PM.PNPUL ---
Progress Note: A&P Assessment and Plan (1) COPD (chronic obstructive pulmonary disease): Code(s): J44.9 - Chronic obstructive pulmonary disease, unspecified Status: Acute Assessment and Plan: 56-year-old woman with GOLD grade 4 group B COPD with an FEV1 of 16% predicted on 3 L oxygen 24-7, on nocturnal noninvasive ventilation with a trilogy, on Daliresp and triple inhalers. she is status post left upper lobectomy and bleb resection for spontaneous pneumothorax in 2012. She has pulmonary cachexia. She has multiple hospitalizations for COPD exacerbations. currently will treat patient for COPD exacerbation although she has no change in her cough, phlegm production, phlegm color but she does have increased shortness of breath. I will change her to Solu-Medrol 40 q.6, albuterol 2.5 q.4 nebs, ipratropium 0.5 Q 4 neb. The hospital does not carry Daliresp and if her family can bring that in we will continue that. The patient has had a previous admission to the hospital on 08/21/2021 for noncompliance with her noninvasive ventilation and currently her machine is not working as the dog his chewed through her tubing. I will work with are care coordinator and her [employer] company to rectify this situation.. Currently she is on 3 L nasal cannula which per the clinic notes is her baseline and her saturations are 94%. She is COVID RT PCR negative. I will send a influenza swab. There are no focal infiltrates on her chest x-ray and I do not think there is a pneumonia. I will treat her for tracheobronchitis empirically with azithromycin. Her BNP is 76 and there is no evidence of fluid overload. Her D-dimer is negative at less than 0.27 and I do not think she has had a PE. Patient has severe COPD and I talked to her about her healthcare wishes regarding resuscitation and or intubation. I try to call her ex- to discuss this with him as that was her request and left a message on his voicemail. I told her given the severity of her lung disease that she would likely not come off of ventilator. Currently she is on 3 L nasal cannula saturations 94%. I changed her BiPAP settings to achieve comfort and the settings were respiratory rate 10, pressures 10/5, inspiratory time 0.7. the care coordinator talked to Karmen regarding her home noninvasive ventilator tubing replacement and they will attempt to rectify the situation prior to discharge. 11/21 Patient wore the hospital BiPAP last night and said that the settings felt good and she was able to sleep well. Overall she says that she is breathing back to normal and was asking to be discharged today. Her white blood cell count is 3.1. Currently she is on 3 L nasal cannula with saturations 98%. I have changed her from Solu-Medrol to prednisone 40 today. I obtained a download from 08/23 through 11/18/2021 and the% of days with usage greater than 4 hours is 31.8% and the average use is days used is 19 hours and 26 minutes and there has been no usage since 09/24/21 Consistent with with the patient tells me regarding her broken tubing. Patient is on AVAPS-AE mode with a breath rate set at auto, tidal volume 200, minimal EPAP 5, maximal EPAP 7, minimal pressure support 4, maximal pressure support 20 the rise time of 3. Her average EPAP was approximately 6, her average IPAP ranged from 12-22. Our care coordinator spoke with Karmen and Karmen plans to have someone verify the machine is working on 11/22/2020. 11/22 patient wore hospital BiPAP overnight and said she did well and slept well. Today she tells me that her tubing on her home BiPAP machine has been repaired but that she has just not been wearing the machine at home. no wheezes on exam. The patient states she is breathing back at her baseline and requesting to be discharged today. from a pulmonary perspective on 11/22/21 on these pulmonary medicines: Prednisone 40 mg PO X2 days (last dose 11/24) Paras
[2021-11-22] MEDS: ALPRAZolam (*CRX) 0.5 MG TABLET PO ×2 (13:10→22:25)
[2021-11-22 14:32] LABS: Glucose Point of Care 193 mg/dl (65-105)
--- NOTE | 2021-11-22 14:34 | HOMEO2EVAL ---
Evaluation was performed at [facility] Home Oxygen Evaluation RC: Home Oxygen (O2) Evaluation Start: 11/22/21 12:39 Freq: ONCE Status: Active Protocol: RPE Activity Type Activity Date Activity User E-Sign Co-Sign Detail Recorded Client Recorded Date Recorded By Document 11/22/21 14:15 DJO [email or web address] 11/22/21 14:34 DJO Document 11/22/21 14:15 [email or web address] [email or web address] 11/22/21 14:34 DJO Document 11/22/21 14:20 [email or web address] [email or web address] 11/22/21 14:34 DJO 11/22/21 11/22/21 11/22/21 14:15 14:15 14:20 Home O2 Evaluation Test Phase Resting Resting Exercise Oxygen Delivery Nasal Cannula Nasal Cannula Nasal Cannula Oxygen Flow Rate (L/min) 3 3 3 Pulse Oximetry (90-100 %) 93 94 92 Home Oxygen Evaluation Comments PT UP TO BATHROOM WITH WALKER AND BACK TO BED. WEARS 3 L O2 Treatment Charges O2 Evaluation - Inpatient
--- NOTE | 2021-11-22 14:34 | PCRCNOTE ---
HOME O2 EVAL DONE, PT WEARS 3 L AT REST AND WITH EXERTION, PT UP TO BATHROOM AND BACK INTO BED, NO DROP IN SATS ON 3L. PT HAS NO CHANGE IN CURRENT HOME O2 SETTINGS.
--- NOTE | 2021-11-22 15:02 | PM.IMPN ---
Progress Note: A&P Assessment and Plan (1) Discharge planning issues: Code(s): Z02.9 - Encounter for administrative examinations, unspecified Status: Acute Assessment and Plan: Patient cannot get a right home tonight. She will be able to get a ride home tomorrow. Will continue medications as such. Will discharge in the morning if she is able to get a ride. He monitoring her anxiety and breathing overnight. Will downgrade her to a medical floor. (2) Acute exacerbation of chronic obstructive pulmonary disease: Code(s): J44.1 - Chronic obstructive pulmonary disease with (acute) exacerbation Status: Acute Assessment and Plan: Patient states she has had a long few days with burying her son after he overdosed. She has had some increased shortness of breath because they had went to a bar after his and there was a lot of people who were smoking. She has been taking her medications as prescribed without much improvement and was having some increased anxiety and tearfulness prior to arrival which is why her son called EMS. She has not been using her BiPAP machine because the tubing was damaged. Worsted Winder was consulted and he feels at this time she is stable for discharge home. Will continue few more days of azithromycin and prednisone for her acute COPD exacerbation treatment. Her home O2 company will be able to bring her new BiPAP mask and tubing when she returns home. Worsted Winder also discussed with the patient needing to discuss her code status and possible be a do not intubate given her chronic lung disease. I talked with this with her and her ex- so that they can all talk as a family with her sons. Currently we will defer at a full code unless she decides she would like to change her code status. Will continue monitoring. She pulmonology is input. (3) Acute respiratory failure with hypoxia and hypercapnia: Code(s): J96.01 - Acute respiratory failure with hypoxia; J96.02 - Acute respiratory failure with hypercapnia Status: Acute Assessment and Plan: Patient has not been using her BiPAP at home due to tubing problems. Her ABG when she came in showed elevated pCO2 at 68. She was placed on a continuous BiPAP and is now doing well and off of the BiPAP except for when she sleeps. Continue monitoring. Appreciate pulmonology is input. (4) Tobacco abuse: Code(s): Z72.0 - Tobacco use Status: Chronic Assessment and Plan: Nicotine patch as needed. Educate her for 3 minutes about quitting smoking. (5) Protein-calorie malnutrition, severe: Code(s): E43 - Unspecified severe protein-calorie malnutrition Status: Acute Assessment and Plan: Continue to monitor. Will consult dietitian. Likely secondary to advanced COPD (6) Chronic anemia: Code(s): D64.9 - Anemia, unspecified Status: Acute Assessment and Plan: Blood counts are stable at this time. Continue to monitor (7) Gastroesophageal reflux disease: Code(s): K21.9 - Gastro-esophageal reflux disease without esophagitis Status: Acute Assessment and Plan: Start PPI. Continue to monitor Time Spent With Patient Time with patient: 25 - 35 minutes Subjective Date/time seen: 11/22/21 15:03 Interval history: Date of Service 2/4/22: Patient reports feeling anxious at this time and having some shortness of breath. She got worked up because no one can pick her up today to go home. She otherwise had been feeling well all morning in back to her baseline. She thinks he needs a benzodiazepine to help calm her down. She denies
[2021-11-22 16:44] LABS: Glucose Point of Care 175 mg/dl (65-105)
--- NOTE | 2021-11-22 17:59 | PC.NURSE ---
Report given to Mehreen RN with [address] [place] [address] at 1720. All questions answered and plan of care reviewed. patient to travel by bed with all belongings. Patient to go to [address] [place] [address] room 260.
--- NOTE | 2021-11-22 18:05 | PC.NURSE ---
Pt transfer received from IMU. Patient oriented to the room.
[2021-11-22] MEDS: MIRTAZAPINE 30 MG TABLET PO (18:09)
[2021-11-22] MEDS: MONTELUKAST SODIUM 10 MG TABLET PO (20:12)
[2021-11-22 20:32] LABS: Glucose Point of Care 141 mg/dl (65-105)
[2021-11-23] VITALS (10 sets, daily range): BP systolic 104–111; BP diastolic 48–49; PULSE 76–82; RESP 16–17; TEMP 36.1–36.6; O2SAT 96–98
[2021-11-23] MEDS: ALBUTEROL SULFATE NEB 2.5 MG/0.5 ML INH INHALATION ×3 (01:10→08:27)
[2021-11-23] MEDS: IPRATROPIUM BR 0.02% INH SOLN 0.5 MG/2.5 ML VIAL INHALATION ×3 (01:11→08:27)
[2021-11-23 05:43] LABS: Blood Urea Nitrogen 9 mg/dL (7-17); Calcium 8.6 mg/dL (8.4-10.2); Carbon Dioxide > 40 mmol/L (22-30); Chloride 93 mmol/L (98-107); Estimated CRCL calculation 66 ml/min; Estimated Glomerular Filt Rate > 60; Glucose 87 mg/dL (65-110); Potassium 3.8 mmol/L (3.4-5.0); Sodium 135 mmol/L (137-145)
[2021-11-23 08:10] LABS: Glucose Point of Care 72 mg/dl (65-105)
[2021-11-23] MEDS: ENOXAPARIN 40 MG/0.4 ML SYRINGE SUB-Q (09:03)
[2021-11-23] MEDS: PANTOPRAZOLE 40 MG TABLET PO (09:03)
[2021-11-23] MEDS: ALPRAZolam (*CRX) 0.5 MG TABLET PO (09:03)
[2021-11-23] MEDS: FOLIC ACID 1 MG/0.2 ML INJ IV PUSH (09:03)
[2021-11-23] MEDS: THIAMINE HCL 200 MG/2 ML VIAL 100 MG IV PUSH (09:03)
[2021-11-23] MEDS: predniSONE 20 MG TABLET 40 MG PO (09:03)
[2021-11-23] MEDS: CYANOCOBALAMIN 1,000 MCG TABLET 1000 MCG PO (09:03)
[2021-11-23] MEDS: ESCITALOPRAM OXALATE 10 MG TABLET 30 MG PO (09:03)
--- NOTE | 2021-11-23 09:24 | PM.DS ---
DS: Admitting Diagnosis Discharge Date 11/23/21 Admitting Diagnosis SOB DS: Discharge Diagnosis Discharge Diagnosis (1) Acute exacerbation of chronic obstructive pulmonary disease: Code(s): J44.1 - Chronic obstructive pulmonary disease with (acute) exacerbation Status: Acute Assessment and Plan: Patient is a 56-year-old woman with a history of COPD/emphysema with an FEV of 16% of predicted, chronic tobacco dependence, chronic respiratory failure with hypoxemia and hypercapnia on 3 L of oxygen via nasal cannula and home ventilation at night, who presents emergency room with increased shortness of breath prior to arrival. Patient states she has had a long few days with burying her son after he overdosed. She has had some increased shortness of breath because they were outside in the cold and she had went to a bar after his and there was a lot of people who were smoking. She has been taking her medications as prescribed without much improvement and was having some increased anxiety and tearfulness prior to arrival which is why her son called EMS. She has not been using her BiPAP machine because the tubing was damaged. Initial vitals showed, afebrile, low normal blood pressure 96/68, tachycardic heart rate 134, normal respiratory rate, 100% oxygen on 4 L via nasal cannula. Initial labs showed Leukopenia 4300, macrocytic anemia with a hemoglobin of 10, hematocrit 34% which is stable and at her baseline. Normal coag panel and negative D-dimer. ABG showed normal pH and elevated bicarb with 68%, elevated HC03 of 40. Elevated serum bicarb greater than 40. Normal renal function. Normal LFTs. Negative troponin x3. BNP normal. Negative for COVID PCR and influenza a and B. chest x-ray showed severe emphysema with multifocal scarring. Patient was admitted into the hospital for his COPD exacerbation started on breathing treatments, IV Solu-Medrol, and she was placed on a BiPAP due to elevated pCO2 on ABG. She was admitted to the IMU for further evaluation and monitoring. Repack Room Worker was consulted during her hospitalization and was able to slowly wean her down off of the IV Solu-Medrol. Placed her on oral prednisone and she was tolerating that well without any worsening shortness of breath. He started IV azithromycin recommends a few more days of oral azithromycin. She had not been using her BiPAP because their dog had destroyed her BiPAP tubing. We talked to the respiratory team and they had contacted her oxygen company and they will be delivering her new parts. At this time she is feeling back to baseline ready to be discharged home. Instructed to follow-up with a yardage caller and PCP in 1 week. Return to ER warnings given. Patient understands agrees the plan all questions answered. (2) Acute respiratory failure with hypoxia and hypercapnia: Code(s): J96.01 - Acute respiratory failure with hypoxia; J96.02 - Acute respiratory failure with hypercapnia Status: Acute Assessment and Plan: Patient has not been using her BiPAP at home due to tubing problems. Her ABG when she came in showed elevated pCO2 at 68. Doing well at her 3 L via nasal cannula which is her baseline. Home oxygen evaluation showed she needs 3 L at rest and with exertion. (3) Tobacco abuse: Code(s): Z72.0 - Tobacco use Status: Chronic Assessment and Plan: Nicotine patch as needed. Educate her for 3 minutes about quitting smoking. (4) Protein-calorie malnutrition, severe: Code(s): E43 - Unspecified severe protein-calorie malnutrition Status: Acute Assessment and Plan: Likely secondary to advanced COPD. Supplementation. (5) Chronic anemia: Code(s): D64.9 - Anemia, unspecified Status: Acute As
== END 2021-11-23 10:50 | disposition home or self-care (01) | DRG 190 ==
LOC: ANHED 23:06 → ANHIMU 11-20 01:04 → ANH2MED 11-22 17:50
PROVIDERS: Internal Medicine Pulmonary Disease; Admitting Provider Internal Medicine; Emergency Provider Emergency Medicine; PCP Family Medicine; Visit Provider Physician Assistant
DX: J43.9 Emphysema, unspecified (principal); J96.22 Acute and chronic respiratory failure with hypercapnia; J96.21 Acute and chronic respiratory failure with hypoxia; E43 Unspecified severe protein-calorie malnutrition; Z68.1 Body mass index [BMI] 19.9 or less, adult; F41.9 Anxiety disorder, unspecified; Z20.822 Contact with and (suspected) exposure to COVID-19; K21.9 Gastro-esophageal reflux disease without esophagitis; R00.0 Tachycardia, unspecified; Z72.0 Tobacco use; D64.9 Anemia, unspecified; Z63.4 Disappearance and death of family member; F10.10 Alcohol abuse, uncomplicated; E55.9 Vitamin D deficiency, unspecified; M81.0 Age-related osteoporosis without current pathological fracture
CPT/HCPCS: 36415; 36600; 71045; 80048; 80053; 82375; 82805; 82948; 83050; 83735; 83880; 84484; 85025; 85027; 85380; 85610; 85730; 87804; 93005; 94002; 94003; 94618; 94640; 96360; 96374; 97161; 97165; 99285; A9270; C9803; J0456; J1650; J2060; J2405; J2550; J2920; J2930; J3411; J3475; J7030; J7512; U0003; U0005

== ENCOUNTER 2022-02-13 10:19 | Inpatient (IN) | payer MEDICARE, MEDICAID, SELFPAY ==
[2022-02-13] VITALS (28 sets, daily range): BP systolic 77–105; BP diastolic 51–69; PULSE 102–129; RESP 19–39; TEMP 36.4–37; O2SAT 93–100; BMI 14.1
--- NOTE | ~2022-02-13 | XR_ITS ---
EXAMINATION: XR chest 1V portable DATE: 02/17/2022 07:53 INDICATION: Shortness of breath. TECHNIQUE: A single frontal view of the chest was obtained. COMPARISON: Chest single view 02/14/2022, chest CT 10/29/2021 FINDINGS: The lungs are hyperexpanded with lucencies and architectural distortion, consistent with em physema. There are staple lines in the upper lungs. There are scattered mild airspace opacities in al l lung zones. No pleural effusion or pneumothorax. The heart size is normal. There are old healed tulio ateral rib fractures. IMPRESSION: 1. Severe emphysema. 2. Stable mild multifocal lung disease, likely at least predominantly scarring. Pneumonia cannot be e xcluded. Reviewed, dictated and finalized at location B. IMPRESSION: 1. Severe emphysema. 2. Stable mild multifocal lung disease, likely at least predominantly scarring. Pneumonia cannot be excluded.
--- NOTE | ~2022-02-13 | US_ITS ---
EXAMINATION: US abdomen limited DATE: 02/14/2022 08:52 INDICATION: Abnormal liver function tests. Right upper quadrant abdominal pain. TECHNIQUE: Multiple grayscale and Doppler ultrasound images of the abdomen were obtained. COMPARISON: Chest CT 10/29/2021 FINDINGS: The visualized portions of the head, body, and tail of the pancreas are normal. The liver i s normal without focal lesion. No liver surface nodularity. There is normal flow in main portal vein. The gallbladder is normal in size and contains sludge. No gallstones or gallbladder wall thickening. There is no sonographic Rincon sign. The common duct is normal and measures 5 mm. IMPRESSION: 1. No etiology for abnormal liver function tests or the patient's symptoms. Reviewed, dictated and finalized at location A.
--- NOTE | ~2022-02-13 | XR_ITS ---
EXAMINATION: XR chest 1V portable DATE: 02/14/2022 18:08 INDICATION: Fever TECHNIQUE: frontal view of the chest was obtained. COMPARISON: Chest radiograph dated 02/13/2022 FINDINGS: And seen is hyperexpansion lungs with scattered regions of increased lucency and architectural distor tion consistent with emphysema. Suture lines potentially for volume reduction surgery in the bilatera l upper lung zones. Persistent mild airspace opacities in the bilateral mid and lower lung zones. No pulmonary edema, pleural effusion or pneumothorax. The cardiomediastinal silhouette is normal. Old po sterolateral left seventh rib fracture. IMPRESSION: 1. Severe emphysema. 2. No significant change in mild airspace opacities in bilateral mid and lower lung zones is likely a telectasis/scarring although differential includes pneumonia. Reviewed, dictated and finalized at location A. IMPRESSION: 1. Severe emphysema. 2. No significant change in mild airspace opacities in bilateral mid and lower lung zones is likely atelectasis/scarring although differential includes pneumo lisa.
--- NOTE | ~2022-02-13 | XR_ITS ---
EXAMINATION: XR chest 2V DATE: 02/13/2022 10:50 INDICATION: Shortness of breath. Chronic obstructive pulmonary disease. TECHNIQUE: Frontal and lateral views of the chest were obtained. COMPARISON: Chest single view 11/19/2021, chest CT 10/29/2021 FINDINGS: The lungs are hyperexpanded with lucencies and architectural distortion, consistent with em physema. There are mild airspace opacities in the mid and lower lung zones. No pleural effusion or pn eumothorax. The heart size is normal. There is a chronic burst fracture of T6. IMPRESSION: 1. Severe emphysema. 2. Mild airspace opacities in the mid and lower lung zones, consistent with atelectasis/scarring vers us pneumonia. Reviewed, dictated and finalized at location A. IMPRESSION: 1. Severe emphysema. 2. Mild airspace opacities in the mid and lower lung zones, consistent with ate lectasis/scarring versus pneumonia.
--- NOTE | 2022-02-13 10:35 | ECG_ITS ---
Measurements Intervals [place] Rate: 128 P: 88 ID: 134 QRS: 73 QRSD: 81 T: 81 QT: 286 QTc: 418 Interpretive Statements SINUS TACHYCARDIA POSSIBLE INFERIO LATERAL MYOCARDIAL INFARCTION , PROBABLY OLD [30 ms Q WAVE IN II/aVF] ABNORMAL RHYTHM ECG COMPARED TO ECG 11/19/2021 21:50:40 THE INFERIOR AND LATERAL Q-WAVES ARE NEW. Electronically Signed On 02-13-2022 20:53:40 CDT by Lizbeth Neville M.D.
[2022-02-13 10:48] LABS: Basophils Absolute Auto 0.1 K/mm3 (0.0-0.1); Basophils Percent Auto 0.8 % (0.2-1.2); Eosinophils Absolute Auto 0.3 K/mm3 (0-0.3); Eosinophils Percent Auto 4.2 % (0-4.4); Hematocrit 37.7 % (37.0-47.0); Hemoglobin 11.3 g/dL (12.0-15.0); Immature Granulocyte Absolute 0.02 K/mm3 (0.00-0.031); Immature Granulocyte Percent A 0.3 % (0-0.5); Lymphocytes Absolute Auto 1.25 K/mm3 (0.9-3.2); Lymphocytes Percent Auto 20.3 % (18.3-44.2); Mean Corpuscular Hemoglobin 30.8 pg (26-34); Mean Corpuscular Volume 102.7 fl (80-100); Mean Platelet Volume 9.3 fl (7.4-10.4); Monocytes Absolute Auto 0.5 K/mm3 (0.1-0.6); Neutrophils Absolute Auto 4.1 K/mm3 (1.3-6.7); Neutrophils Percent Auto 66.4 % (45.5-73.1); Platelet Count Result 283 k/mm3 (150-375); Red Blood Count 3.67 M/mm3 (4.2-5.4); White Blood Count 6.2 K/mm3 (4.5-10.0)
[2022-02-13 10:59] LABS: Alanine Aminotransferase 86 U/L (4-35); Albumin Level 3.3 g/dL (3.5-5.1); Alkaline Phosphatase 101 U/L (38-126); Aspartate Amino Transferase 82 U/L (14-36); Bilirubin,Total 0.5 mg/dL (0.2-1.3); Blood Urea Nitrogen 14 mg/dL (7-17); Calcium 7.8 mg/dL (8.4-10.2); Carbon Dioxide > 40 mmol/L (22-30); Chloride 89 mmol/L (98-107); Estimated CRCL calculation 68 ml/min; Estimated Glomerular Filt Rate > 60; Glucose 94 mg/dL (65-110); Potassium 4.6 mmol/L (3.4-5.0); Sodium 136 mmol/L (137-145)
[2022-02-13] MEDS: IPRATROPIUM BR 0.02% INH SOLN 0.5 MG/2.5 ML VIAL INHALATION ×3 (11:00→19:49)
[2022-02-13] MEDS: ALBUTEROL SULFATE NEB 2.5 MG/0.5 ML INH 5 MG INHALATION ×3 (11:00→19:49)
[2022-02-13 11:26] LABS: Alveolar/Arterial O2 Gradient 1.1 mmHg; Base Excess ABG 15.6 mEq/l (+/-2.0); Fractional Inspired Oxygen 28 %; HCO3 ABG 44.8 mEq/l (22.0-26.0); Oxygen Content ABG 16.3 %vol (16.0-22.0); Oxyhemoglobin 96.6 % THb (90.0-100.0); PO2 ABG 100.8 mmHg (80.0-100.0); Total Hemoglobin 11.9 g/dL (12.0-18.0); pH ABG 7.351 (7.350-7.450)
[2022-02-13 11:27] LABS: Device NASAL CANNULA; Modified Allen's Test Pass; PCO2 ABG 82.8 mmHg (35.0-45.0); Site Drawn RIGHT RADIAL
[2022-02-13] MEDS: methylPREDNISolone SOD SUCC 125 MG VIAL IV PUSH (11:29)
[2022-02-13 11:58] LABS: NT Pro B Type Natriuretic Pept 46 pg/mL (5-100); Troponin I < 0.012 ng/mL (0.000-0.034)
--- NOTE | 2022-02-13 13:27 | PC.NURSE ---
Pt up to bedside commode with no difficulty
--- NOTE | 2022-02-13 13:30 | ED.GENADULT ---
HPI - General Adult General Chief complaint: Unspecified Stated complaint: anxiety Time Seen by Provider: 02/13/22 10:56 Source: patient Mode of arrival: ambulatory Limitations: no limitations History of Present Illness HPI narrative: Patient is a 56-year-old female complaining of shortness of breath, accompanied by cough, productive, clear yellowish sputum, started yesterday and worse today. Patient has a history of COPD and on home O2 continuously at 3 to 4 L. Patient denies any chest pain, abdominal pain, nausea, vomiting, diaphoresis, fever or chills. Related Data Home Medications Medication Instructions Recorded Confirmed escitalopram oxalate 30 mg PO DAILY 11/15/19 11/20/21 mirtazapine 30 mg PO QPM 10/22/21 11/20/21 montelukast 10 mg PO HS 10/22/21 11/20/21 Allergies Allergy/AdvReac Type Severity Reaction Status Date / Time No Known Allergies Allergy Verified 02/13/22 10:37 Review of Systems Review of Systems: All systems reviewed & are unremarkable except as noted in HPI and below Constitutional: Constitutional: Denies body ache(s), Denies chills, Denies excessive sweating, Denies fatigue, Denies fever(s), Denies headache(s), Denies lethargy, Denies malaise, Denies weakness and Denies weight loss Eyes: Eyes: Denies blurry vision, Denies change in vision and Denies loss of vision ENT: Denies dizziness, Denies ear discharge, Denies headache(s), Denies lip swelling, Denies epistaxis, Denies nasal congestion, Denies neck pain, Denies throat swelling and Denies tongue swelling Cardiovascular: Cardiovascular: Denies chest pain, Denies chest pain at rest, Denies chest pain with activity, Denies diaphoresis, Denies rapid heart rate, Denies edema, Denies irregular heart rhythm, Denies lightheadedness and Denies palpitations Gastrointestinal: Gastrointestinal: Denies abdominal pain, Denies melena, Denies hematochezia, Denies diarrhea, Denies nausea, Denies vomiting and Denies hematemesis Musculoskeletal: Musculoskeletal: Denies abnormal gait, Denies deformity, Denies joint swelling, Denies limited range of motion, Denies neck pain and Denies numbness Neurologic: Denies Abnormal speech present, Denies abnormal gait, Denies confusion, Denies dizziness, Denies headache(s), Denies focal weakness, Denies loss of vision, Denies numbness, Denies Other visual disturbances, Denies Sensory deficit (Neuro) and Denies weakness Psychiatric: Psychiatric: Denies confusion, Denies depression, Denies auditory hallucinations, Denies homicidal ideation and Denies suicidal ideation Endocrine: Endocrine: Denies cold intolerance, Denies excessive sweating, Denies fatigue, Denies heat intolerance and Denies palpitations Hematologic/Lymphatic: Hematologic/Lymphatic: Denies easy bleeding and Denies easy bruising Allergic/Immunologic: Allergic/Immunologic: Denies lip swelling, Denies throat swelling and Denies tongue swelling PMFSH Past Medical History Medical History Abnormal EKG EKG has previously shown ST elevation which appears to be early repolarization. Alcohol abuse Anorexia Anxiety Asthma B12 deficiency anemia Chronic anemia Chronic respiratory failure with hypoxia and hypercapnia COPD with emphysema Gastroesophageal reflux disease Generalized anxiety disorder with panic attacks Spontaneous pneumothorax (~08/2012) Several pneumothoraces status post VATS procedure and apical blebectomy as well as pleurodesis. Tobacco abuse Vitamin D deficiency Surgical History Surgical History History of bilateral tubal ligation History of History of hip surgery (~07/2019) ORIF of right hip fracture. History of tonsillectomy Status post thoracotomy Left-sided VATS procedure and apical bleb resection with pleurodesis. Family History Family History Father Acute myocardia
--- NOTE | 2022-02-13 14:00 | PC.NURSE ---
Pt refusing to keep Bipap on. States its suffocating me Pt states she will try to where it tonight when she sleep.
[2022-02-13] MEDS: LORazepam (*CRX) 0.5 MG TABLET PO (14:48)
[2022-02-13] MEDS: LACTATED RINGERS 1,000 ML 125 ML IV CONT (14:48)
[2022-02-13 15:20] LABS: Troponin I < 0.012 ng/mL (0.000-0.034)
--- NOTE | 2022-02-13 15:30 | PM.IMHP ---
H&P: HPI History of Present Illness Date/Time: 02/13/22 15:30 Chief Complaint: Shortness of breath. Narrative: This is a 56-year-old female with end-stage COPD, chronic hypercapnic and hypoxemic respiratory failure on trilogy home ventilator at night and 3 L nasal cannula during the day, and history of COPD exacerbation requiring intubation who presented to the ED for evaluation of shortness of breath. She has chronic shortness of breath and rarely leaves her home. For the past 2 days she has had progressive dyspnea on lesser and lesser exertion as well as an increase in cough which has been productive of yellow sputum. She has also noticed that her SpO2 has been in the mid 80s on her home pulse oximeter and she turned her oxygen to 4 L today. She was afebrile on arrival to the emergency department. Blood pressures have been soft but that is not unusual for her and she is asymptomatic. She has been tachycardic and tachypneic which she attributes to anxiety, nebulizers, and steroids given in the ED. Her pCO2 on ABG was 82.8 and given her work of breathing she was started on BiPAP with subjective improvement and she is being admitted in this setting. She denies sick contacts. She also denies fever, chills, sweats, syncope, near syncope, chest pain, pleuritic pain, palpitations, orthopnea, PND, lower extremity edema, nausea, and vomiting. Review of Systems Review of Systems: Twelve systems were reviewed. No headache or neck ache. No sinus congestion, rhinorrhea, otalgia, or odynophagia. She denies dysphagia and concerns for aspiration. She continues to lose weight and reports having a poor appetite most of the time. Except as documented, all other systems were reviewed and are negative. [facility]LY [facility] Past Medical History Medical History (Updated 02/13/22 @ 20:41 by Brooke Pierson PA-C) Abnormal EKG EKG has previously shown ST elevation which appears to be early repolarization. Alcohol abuse Anorexia Anxiety Asthma B12 deficiency anemia Chronic anemia Chronic respiratory failure with hypoxia and hypercapnia On trilogy unit at nighttime. 3 L nasal cannula during the day. COPD with emphysema Gastroesophageal reflux disease Generalized anxiety disorder with panic attacks Pulmonary cachexia due to chronic obstructive pulmonary disease Spontaneous pneumothorax (08/2012) Several pneumothoraces status post VATS procedure and apical blebectomy as well as pleurodesis. Tobacco abuse Quit in 2020 per patient report. Vitamin D deficiency Surgical History Surgical History (Updated 02/13/22 @ 14:05 by Brooke Pierson PA-C) History of bilateral tubal ligation History of History of hip surgery (07/2019) ORIF of right hip fracture. History of tonsillectomy Status post thoracotomy Left-sided VATS procedure and apical bleb resection with pleurodesis. Family History Family History Father Acute myocardial infarction Father No problems noted. Unknown No problems noted. Mother No problems noted. Sibling No problems noted. Social History Social History (Updated 02/13/22 @ 20:36 by Brooke Pierson PA-C) Social History: The patient lives with her 19-year-old son in [place]. She has 2 older sons who are no longer at home. 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 She is a former smoker and reportedly quit in 2019. She smoked as many as 2 packs of cigarettes per day prior to quitting. She has significantly cut back in her drinking and now consumes maybe 5 alcoholic beverages a week. She denies illicit substance use. Her son Lino Foote and ex- [employer] Brooke are her surrogate decision maker and she wishes to be a full code. Spiritual care concerns: No Agree to blood products: Yes Meds Home Medications and Allergies Home Medications Medication Instructions Recorded Confirmed Type escitalo
--- NOTE | 2022-02-13 16:16 | PC.NURSE ---
pt decided that she wanted to be back on her Bipap. Pt placed on bipap and respiratory called.
--- NOTE | 2022-02-13 18:05 | ADMGEN ---
This patient, Esther Brink, was admitted to IMU Room 200-01. 17:20 Patient/family oriented to hospital policies and general routines including ID bracelet, bed and alarms, visiting hours, pain management, procedures, bathroom and other care routines, personal items, smoking policy, room service/diet, and visiting hours. Information on how to activate the Rapid Response Team has been discussed. Patient/Family are encouraged to report perceived risks to care and to ask questions if they do not understand what they are told or what they should do.
[2022-02-13 20:42] LABS: Alveolar/Arterial O2 Gradient 43.3 mmHg; Base Excess ABG 9.1 mEq/l (+/-2.0); Carboxyhemoglobin 0.3 % THb (0-2.0); Fractional Inspired Oxygen 28 %; HCO3 ABG 36.8 mEq/l (22.0-26.0); Methemoglobin ABG 0.2 %THb (0-1.5); Oxygen Saturation ABG 94.2 % (95.0-100.0); Oxyhemoglobin 93.8 % THb (90.0-100.0); PO2 ABG 76.5 mmHg (80.0-100.0); PO2 FiO2 Ratio Arterial Blood 2.73 %; Reduced Hemoglobin 5.7 %THb (0-5.0); Total Hemoglobin 11.3 g/dL (12.0-18.0); pH ABG 7.353 (7.350-7.450)
[2022-02-13 20:43] LABS: PCO2 ABG 67.7 mmHg (35.0-45.0)
[2022-02-13 20:44] LABS: Device NASAL CANNULA; Modified Allen's Test Pass; Site Drawn LEFT RADIAL
[2022-02-13] MEDS: MONTELUKAST SODIUM 10 MG TABLET PO (21:23)
[2022-02-13] MEDS: methylPREDNISolone SOD SUCC 40 MG VIAL IV PUSH (21:23)
[2022-02-13] MEDS: ALPRAZolam (*CRX) 0.5 MG TABLET PO (21:23)
[2022-02-14] VITALS (24 sets, daily range): BP systolic 90–125; BP diastolic 55–70; PULSE 79–130; RESP 20–24; TEMP 36.1–38.2; O2SAT 94–100; BMI 14.1
[2022-02-14] MEDS: MIRTAZAPINE 30 MG TABLET PO ×2 (00:14→17:35)
[2022-02-14] MEDS: IPRATROPIUM BR 0.02% INH SOLN 0.5 MG/2.5 ML VIAL INHALATION ×4 (02:00→21:10)
[2022-02-14] MEDS: ALBUTEROL SULFATE NEB 2.5 MG/0.5 ML INH 5 MG INHALATION ×3 (02:00→12:53)
[2022-02-14] MEDS: methylPREDNISolone SOD SUCC 40 MG VIAL IV PUSH ×2 (03:46→08:52)
[2022-02-14 05:34] LABS: Alanine Aminotransferase 56 U/L (4-35); Albumin Level 3.1 g/dL (3.5-5.1); Alkaline Phosphatase 89 U/L (38-126); Aspartate Amino Transferase 42 U/L (14-36); Bilirubin,Total 0.2 mg/dL (0.2-1.3); Blood Urea Nitrogen 5 mg/dL (7-17); Calcium 8.1 mg/dL (8.4-10.2); Carbon Dioxide > 40 mmol/L (22-30); Chloride 92 mmol/L (98-107); Estimated CRCL calculation 83 ml/min; Estimated Glomerular Filt Rate > 60; Glucose 150 mg/dL (65-110); Magnesium 2.2 mg/dL (1.6-2.3); Potassium 3.3 mmol/L (3.4-5.0); Sodium 138 mmol/L (137-145)
[2022-02-14 06:25] LABS: Hematocrit 32.4 % (37.0-47.0); Mean Corpuscular HGB Conc 30.9 g/dl (32-36); Mean Corpuscular Hemoglobin 30.6 pg (26-34); Mean Corpuscular Volume 99.1 fl (80-100); Mean Platelet Volume 9.3 fl (7.4-10.4); Platelet Count Result 256 k/mm3 (150-375); Red Blood Count 3.27 M/mm3 (4.2-5.4); Red Cell Distribution Width 13.1 % (11.5-14.5); White Blood Count 2.1 K/mm3 (4.5-10.0)
[2022-02-14 06:34] LABS: Hepatitis B Surface Antigen Negative (Negative)
[2022-02-14 06:39] LABS: HAV RESULT Negative (Negative); Hepatitis B Core IgM Result Negative (Negative)
[2022-02-14 06:51] LABS: Hepatitis C Virus Antibody Negative (Negative)
[2022-02-14] MEDS: FLUTICASONE/UMECLIDIN/VILANTER 100-62.5-25 MCG ELLIPTA 1 PUFF INHALATION (08:41)
[2022-02-14] MEDS: ROFLUMILAST 500 MCG TABLET PO (08:51)
[2022-02-14] MEDS: FOLIC ACID 0.4 MG TABLET PO (08:51)
[2022-02-14] MEDS: CYANOCOBALAMIN 1,000 MCG TABLET 1000 MCG PO (08:51)
[2022-02-14] MEDS: ALPRAZolam (*CRX) 0.5 MG TABLET PO ×3 (08:51→21:47)
[2022-02-14] MEDS: ESCITALOPRAM OXALATE 10 MG TABLET 30 MG PO (08:51)
[2022-02-14] MEDS: ENOXAPARIN 40 MG/0.4 ML SYRINGE SUB-Q (08:52)
--- NOTE | 2022-02-14 13:55 | PCCCNOTE ---
On 02/14/22, the student, [Isabel Son], provided care and completed [facility] documentation on this patient. I have reviewed the student's documentation and agree with the findings.
--- NOTE | 2022-02-14 14:47 | PM.CNPUL ---
Assessment and Plan Assessment and plan (1) Acute exacerbation of chronic obstructive pulmonary disease: Code(s): J44.1 - Chronic obstructive pulmonary disease with (acute) exacerbation Status: Acute Assessment and Plan: 56-year-old woman with GOLD grade for group B COPD with an FEV1 of 16% predicted, Severe panlobular emphysema throughout all lung montoya on CT scan from 10/29/2021, on 3 L oxygen 24-7, intubated 03/08/2020 and 07/02/2020, on nocturnal noninvasive ventilation with a trilogy with poor compliance (initiated 08/23/2022), on Daliresp and triple inhalers. She is status post left upper lobectomy and bleb resection for spontaneous pneumothorax in 2012. She has pulmonary cachexia. She has multiple hospitalizations for COPD exacerbations including 11/19/21 through 11/23/2021, 10/23/21 through 10/26/21, 08/21/21 through 08/22/21 and ER visits on 08/02/21 and 11/06/20. Patient smoked 2 PPD from age [age] for 82 PY and quit smoking a year and half ago and on a good day she can walk across the room. She also has severe anxiety. 02/14 today the patient tells me she is back at her baseline with no wheezing. I will change her Solu-Medrol to prednisone 40 mg p.o. q.day, will continue her albuterol and ipratropium nebulizers q.6 hours, I will continue her Daliresp 500 q.day, I will continue her montelukast 10 mg q.day. patient has no focal infiltrates on her chest x-ray and I will continue her azithromycin for a tracheobronchitis and discontinue the ceftriaxone. Patient is currently on 2 L nasal cannula which is better than her baseline. She had a home O2 evaluation on her last hospitalization on 11/22/2021 and she required 3 L at rest and with exertion. While she is in the hospital I would continue noninvasive ventilator with the current settings as she states that this has feeling comfortable for her. Patient is on a straight BiPAP rate of 20, pressures 12/5, inspiratory time 1, rise of to and 35% FiO2. From a pulmonary perspective patient is ready to be discharged on these pulmonary medicines if we can confirm that [employer], can retrain her on her home noninvasive ventilator. Prednisone 40 mg PO X3 days (last dose 02/17) Azithromycin 250 mg PO X 2 days (last dose 02/17) Trelegy 100/62.5/25 at 1 puff q.day Rescue albuterol nebulizers 2.5 mg q.i.d. p.r.n. shortness of breath and wheezing Daliresp 500 mcg p.o. q.day Montelukast 10 mg p.o. q.h.s. Home O2 assessment to determine oxygen needs. When she sleeps and naps : noninvasive ventilation with AVAPS-AE mode with a breath rate set at auto, tidal volume 200, minimal EPAP 5, maximal EPAP 7, minimal pressure support 4, maximal pressure support 20 the rise time of 3, plus 3 L bleed in. (2) Acute on chronic respiratory failure with hypoxia and hypercapnia: Code(s): J96.21 - Acute and chronic respiratory failure with hypoxia; J96.22 - Acute and chronic respiratory failure with hypercapnia Status: Acute Assessment and Plan: patient has chronic hypercarbic respiratory failure from her COPD and we have previously initiated noninvasive ventilation with a trilogy machine and AVAPS-AE mode. I am awaiting a download to see if the patient has been wearing her machine but she tells me that she is having technical difficulties hooking up the mask. We have a call out to her [employer] company [employer] to see if there is a possibility of having a broadcast operations technician meet her at her house for retraining. Previous settings: noninvasive ventilation with AVAPS-AE mode with a breath rate set at auto, tidal volume 200, minimal EPAP 5, maximal EPAP 7, minimal pressure support 4, maximal pressure support 20 the rise time of 3, plus 3 L bleed in. The settings are usually chosen for patient comfort and we will check with the Daf[employer] to see why her tidal volume set is 200 which may be low for her. History of Present Illness History of Present Illness Consult date: 02/14/22 Requesting physician:
--- NOTE | 2022-02-14 16:27 | PC.NURSE ---
Addendum entered by Esme Andersen RN 02/14/22 16:40: 3 Alprazolam 0.5mg tablets hand delivered to RAHUL [place] with patient transfer Original Note: This patient, Esther Brink, was transferred to [ [id number]] on 02/14/22 at 1627. Personal belongings sent with patient. Report given to [RAHUL [place] @ [phone] ]. Appropriate documentation sent with patient.
--- NOTE | 2022-02-14 16:37 | PC.NURSE ---
This patient, Esther Brink, was received from IMU on 02/14/22 at 1635. Report received from RAHUL [place]. Patient/family oriented to unit policies and routines
--- NOTE | 2022-02-14 17:33 | PM.IMPN ---
Progress Note: A&P Assessment and Plan (1) COPD exacerbation: Code(s): J44.1 - Chronic obstructive pulmonary disease with (acute) exacerbation Status: Acute Assessment and Plan: Per patient report, her trilogy has been ?beeping every 10 minutes at night? and thus she has not been using it all night, which may very well be the precipitating etiology of her COPD exacerbation. Continue scheduled bronchodilators, steroids, and maintenance inhalers. Continue azithromycin and ceftriaxone given increasing cough productive of purulent sputum. 02/14/2022 Interval history: patient with chronic respiratory failure secondary to severe panlobular emphysema on 3 L of oxygen around the clock and on noninvasive ventilator at home with poor compliance presented to emergency depart with shortness of breath patient seen by her industrial machine assembler started the patient on prednisone 40 mg q.day, DuoNeb and continue Daliresp and triple inhaler, also has adjusted patient's noninvasive ventilator Linecare accompanied. which will be done on Thursday meanwhile will continue to monitor. (2) Acute on chronic respiratory failure with hypoxia and hypercapnia: Code(s): J96.21 - Acute and chronic respiratory failure with hypoxia; J96.22 - Acute and chronic respiratory failure with hypercapnia Status: Acute Assessment and Plan: Continue BiPAP overnight as she did not bring her trilogy unit. Repeat blood gas in a.m. Wean oxygen to baseline as tolerated. (3) Elevated LFTs: Code(s): R79.89 - Other specified abnormal findings of blood chemistry Status: Acute Assessment and Plan: Abdominal exam is benign. Check right upper quadrant ultrasound hepatitis panel for completeness sake. (4) Pulmonary cachexia due to chronic obstructive pulmonary disease: Code(s): J44.9 - Chronic obstructive pulmonary disease, unspecified; R64 - Cachexia Status: Acute Assessment and Plan: Continue mirtazapine. Subjective Date/time seen: 02/14/22 17:33 Chief Complaint: Shortness of breath. Narrative: This is a 56-year-old female with end-stage COPD, chronic hypercapnic and hypoxemic respiratory failure on trilogy home ventilator at night and 3 L nasal cannula during the day, and history of COPD exacerbation requiring intubation who presented to the ED for evaluation of shortness of breath. She has chronic shortness of breath and rarely leaves her home. For the past 2 days she has had progressive dyspnea on lesser and lesser exertion as well as an increase in cough which has been productive of yellow sputum. She has also noticed that her SpO2 has been in the mid 80s on her home pulse oximeter and she turned her oxygen to 4 L today. She was afebrile on arrival to the emergency department. Blood pressures have been soft but that is not unusual for her and she is asymptomatic. She has been tachycardic and tachypneic which she attributes to anxiety, nebulizers, and steroids given in the ED. Her pCO2 on ABG was 82.8 and given her work of breathing she was started on BiPAP with subjective improvement and she is being admitted in this setting. She denies sick contacts. She also denies fever, chills, sweats, syncope, near syncope, chest pain, pleuritic pain, palpitations, orthopnea, PND, lower extremity edema, nausea, and vomiting. 02/14/2022 Interval history: patient with chronic respiratory failure secondary to severe panlobular emphysema on 3 L of oxygen around the clock and on noninvasive ventilator at home with poor compliance presented to emergency depart with shortness of breath patient seen by her industrial machine assembler started the patient on prednisone 40 mg q.day, DuoNeb and continue Daliresp and triple inhaler, also has adjusted patient's noninvasive ventilator Linecare accompanied. which will be done on Thursday meanwhile will continue to monitor. Review of Systems Review of Systems: All systems reviewed & are unremarkable except as n
[2022-02-14] MEDS: ACETAMINOPHEN 325 MG TABLET 650 MG PO (17:34)
[2022-02-14] MEDS: predniSONE 20 MG TABLET 40 MG PO (17:34)
[2022-02-14] MEDS: MONTELUKAST SODIUM 10 MG TABLET PO (20:47)
[2022-02-14] MEDS: ALBUTEROL SULFATE NEB 2.5 MG/0.5 ML INH INHALATION (21:09)
[2022-02-15] VITALS (22 sets, daily range): BP systolic 104–107; BP diastolic 52–76; PULSE 76–114; RESP 16–26; TEMP 36.6–38.2; O2SAT 93–100
[2022-02-15] MEDS: ACETAMINOPHEN 325 MG TABLET 650 MG PO ×2 (00:20→08:31)
[2022-02-15] MEDS: IPRATROPIUM BR 0.02% INH SOLN 0.5 MG/2.5 ML VIAL INHALATION ×4 (02:50→19:32)
[2022-02-15] MEDS: ALBUTEROL SULFATE NEB 2.5 MG/0.5 ML INH INHALATION ×4 (02:50→19:32)
[2022-02-15 05:55] LABS: Hematocrit 31.4 % (37.0-47.0); Hemoglobin 9.8 g/dL (12.0-15.0); Mean Corpuscular HGB Conc 31.2 g/dl (32-36); Mean Corpuscular Hemoglobin 30.7 pg (26-34); Mean Corpuscular Volume 98.4 fl (80-100); Mean Platelet Volume 9.6 fl (7.4-10.4); Platelet Count Result 291 k/mm3 (150-375); Red Blood Count 3.19 M/mm3 (4.2-5.4); Red Cell Distribution Width 13.5 % (11.5-14.5); White Blood Count 7.5 K/mm3 (4.5-10.0)
[2022-02-15 06:14] LABS: Blood Urea Nitrogen 7 mg/dL (7-17); Calcium 8.1 mg/dL (8.4-10.2); Carbon Dioxide > 40 mmol/L (22-30); Chloride 91 mmol/L (98-107); Estimated CRCL calculation 53 ml/min; Estimated Glomerular Filt Rate > 60; Glucose 99 mg/dL (65-110); Potassium 3.2 mmol/L (3.4-5.0); Sodium 137 mmol/L (137-145)
[2022-02-15] MEDS: FOLIC ACID 0.4 MG TABLET PO (08:31)
[2022-02-15] MEDS: ENOXAPARIN 40 MG/0.4 ML SYRINGE SUB-Q (08:31)
[2022-02-15] MEDS: CYANOCOBALAMIN 1,000 MCG TABLET 1000 MCG PO (08:32)
[2022-02-15] MEDS: ALPRAZolam (*CRX) 0.5 MG TABLET PO ×2 (08:32→20:10)
[2022-02-15] MEDS: ESCITALOPRAM OXALATE 10 MG TABLET 30 MG PO (08:32)
[2022-02-15] MEDS: predniSONE 20 MG TABLET 40 MG PO (08:32)
[2022-02-15] MEDS: ROFLUMILAST 500 MCG TABLET PO (08:32)
[2022-02-15] MEDS: POTASSIUM CHLORIDE 20 MEQ TABLET 40 MEQ PO (08:42)
--- NOTE | 2022-02-15 13:38 | PM.IMPN ---
Progress Note: A&P Assessment and Plan (1) COPD exacerbation: Code(s): J44.1 - Chronic obstructive pulmonary disease with (acute) exacerbation Status: Acute Assessment and Plan: Per patient report, her trilogy has been ?beeping every 10 minutes at night? and thus she has not been using it all night, which may very well be the precipitating etiology of her COPD exacerbation. Continue scheduled bronchodilators, steroids, and maintenance inhalers. Continue azithromycin and ceftriaxone given increasing cough productive of purulent sputum. 02/14/2022 Interval history: patient with chronic respiratory failure secondary to severe panlobular emphysema on 3 L of oxygen around the clock and on noninvasive ventilator at home with poor compliance presented to emergency depart with shortness of breath patient seen by her campground cleaning attendant started the patient on prednisone 40 mg q.day, DuoNeb and continue Daliresp and triple inhaler, also has adjusted patient's noninvasive ventilator Linecare accompanied. which will be done on Thursday meanwhile will continue to monitor. 02/15/2022 Interval history: patient with chronic respiratory failure secondary to severe panlobular emphysema on 3 L of oxygen around the clock and on noninvasive ventilator at home with poor compliance presented to emergency depart with shortness of breath patient seen by her campground cleaning attendant started the patient on prednisone 40 mg q.day, DuoNeb and continue Daliresp and triple inhaler, also has adjusted patient's noninvasive ventilator Linecare, which will be done on Thursday meanwhile will continue to monitor. today patient states feeling much better compared to when she arrived, patient appears malnourished discussed with the nursing staff to increase patient high-protein diet and will consult dietitian for further recommendation, will continue to monitor, will have a PT OT evaluate the patient (2) Acute on chronic respiratory failure with hypoxia and hypercapnia: Code(s): J96.21 - Acute and chronic respiratory failure with hypoxia; J96.22 - Acute and chronic respiratory failure with hypercapnia Status: Acute Assessment and Plan: Continue BiPAP overnight as she did not bring her trilogy unit. Repeat blood gas in a.m. Wean oxygen to baseline as tolerated. (3) Elevated LFTs: Code(s): R79.89 - Other specified abnormal findings of blood chemistry Status: Acute Assessment and Plan: Abdominal exam is benign. Check right upper quadrant ultrasound hepatitis panel for completeness sake. (4) Pulmonary cachexia due to chronic obstructive pulmonary disease: Code(s): J44.9 - Chronic obstructive pulmonary disease, unspecified; R64 - Cachexia Status: Acute Assessment and Plan: Continue mirtazapine. Subjective Date/time seen: 02/15/22 13:38 02/15/2022 Interval history: patient with chronic respiratory failure secondary to severe panlobular emphysema on 3 L of oxygen around the clock and on noninvasive ventilator at home with poor compliance presented to emergency depart with shortness of breath patient seen by her campground cleaning attendant started the patient on prednisone 40 mg q.day, DuoNeb and continue Daliresp and triple inhaler, also has adjusted patient's noninvasive ventilator Linecare, which will be done on Thursday meanwhile will continue to monitor. today patient states feeling much better compared to when she arrived, patient appears malnourished discussed with the nursing staff to increase patient high-protein diet and will consult dietitian for further recommendation, will continue to monitor, will have a PT OT evaluate the patient Review of Systems Review of Systems: All systems reviewed & are unremarkable except as noted in HPI and below Exam Narrative: appears chronically ill, malnourished Patient is comfortable, NAD HEENT: eyes are clear and none icteric LUNGS: poor air entry with rhonchi HEART: RR S1
--- NOTE | 2022-02-15 15:39 | PC.NURSE ---
Dr. Chan spoke to me about pt's diet, particularly the need for her to have a high protein, high calorie diet so that she may put some weight on. A consult to the paperhanger was ordered. I contacted analyst food and beverage after verifying that pt is already ordered for supplements. I explained the need for high protein, high calorie foods to which the research food technologist stated that she would check with the coupon collection clerk about making sure this was added to pt's meal plan.
[2022-02-15] MEDS: MIRTAZAPINE 30 MG TABLET PO (17:00)
[2022-02-15] MEDS: MONTELUKAST SODIUM 10 MG TABLET PO (20:10)
[2022-02-16] VITALS (15 sets, daily range): BP systolic 93–111; BP diastolic 63–74; PULSE 78–113; RESP 16–21; TEMP 36.2–37.8; O2SAT 94–100
[2022-02-16] MEDS: ALBUTEROL SULFATE NEB 2.5 MG/0.5 ML INH INHALATION ×4 (02:27→19:52)
[2022-02-16] MEDS: IPRATROPIUM BR 0.02% INH SOLN 0.5 MG/2.5 ML VIAL INHALATION ×4 (02:27→19:51)
[2022-02-16 06:15] LABS: Hematocrit 34.2 % (37.0-47.0); Hemoglobin 10.5 g/dL (12.0-15.0); Mean Corpuscular HGB Conc 30.7 g/dl (32-36); Mean Corpuscular Hemoglobin 30.7 pg (26-34); Mean Platelet Volume 9.3 fl (7.4-10.4); Platelet Count Result 293 k/mm3 (150-375); Red Blood Count 3.42 M/mm3 (4.2-5.4); Red Cell Distribution Width 13.8 % (11.5-14.5)
[2022-02-16 07:05] LABS: Alanine Aminotransferase 62 U/L (4-35); Albumin Level 2.9 g/dL (3.5-5.1); Alkaline Phosphatase 77 U/L (38-126); Aspartate Amino Transferase 81 U/L (14-36); Bilirubin,Total 0.3 mg/dL (0.2-1.3); Blood Urea Nitrogen 8 mg/dL (7-17); Calcium 8.2 mg/dL (8.4-10.2); Carbon Dioxide > 40 mmol/L (22-30); Chloride 94 mmol/L (98-107); Estimated CRCL calculation 49 ml/min; Estimated Glomerular Filt Rate > 60; Glucose 79 mg/dL (65-110); Potassium 3.9 mmol/L (3.4-5.0); Sodium 134 mmol/L (137-145)
[2022-02-16] MEDS: ENOXAPARIN 40 MG/0.4 ML SYRINGE SUB-Q (08:50)
[2022-02-16] MEDS: FOLIC ACID 0.4 MG TABLET PO (08:51)
[2022-02-16] MEDS: ROFLUMILAST 500 MCG TABLET PO (08:51)
[2022-02-16] MEDS: ALPRAZolam (*CRX) 0.5 MG TABLET PO ×3 (08:51→22:50)
[2022-02-16] MEDS: ESCITALOPRAM OXALATE 10 MG TABLET 30 MG PO (08:51)
[2022-02-16] MEDS: CYANOCOBALAMIN 1,000 MCG TABLET 1000 MCG PO (08:51)
[2022-02-16] MEDS: predniSONE 20 MG TABLET 40 MG PO (08:51)
[2022-02-16] MEDS: ACETAMINOPHEN 325 MG TABLET 650 MG PO ×2 (08:51→16:14)
--- NOTE | 2022-02-16 13:00 | PM.IMPN ---
Progress Note: A&P Assessment and Plan (1) COPD exacerbation: Code(s): J44.1 - Chronic obstructive pulmonary disease with (acute) exacerbation Status: Acute Assessment and Plan: Per patient report, her trilogy has been ?beeping every 10 minutes at night? and thus she has not been using it all night, which may very well be the precipitating etiology of her COPD exacerbation. Continue scheduled bronchodilators, steroids, and maintenance inhalers. Continue azithromycin and ceftriaxone given increasing cough productive of purulent sputum. 02/14/2022 Interval history: patient with chronic respiratory failure secondary to severe panlobular emphysema on 3 L of oxygen around the clock and on noninvasive ventilator at home with poor compliance presented to emergency depart with shortness of breath patient seen by her paving and surfacing labourer started the patient on prednisone 40 mg q.day, DuoNeb and continue Daliresp and triple inhaler, also has adjusted patient's noninvasive ventilator Linecare accompanied. which will be done on Thursday meanwhile will continue to monitor. 02/15/2022 Interval history: patient with chronic respiratory failure secondary to severe panlobular emphysema on 3 L of oxygen around the clock and on noninvasive ventilator at home with poor compliance presented to emergency depart with shortness of breath patient seen by her paving and surfacing labourer started the patient on prednisone 40 mg q.day, DuoNeb and continue Daliresp and triple inhaler, also has adjusted patient's noninvasive ventilator Linecare, which will be done on Thursday meanwhile will continue to monitor. today patient states feeling much better compared to when she arrived, patient appears malnourished discussed with the nursing staff to increase patient high-protein diet and will consult dietitian for further recommendation, will continue to monitor, will have a PT OT evaluate the patient. 02/16/2022 Interval history: patient with chronic respiratory failure secondary to severe panlobular emphysema on 3 L of oxygen around the clock and on noninvasive ventilator at home with poor compliance presented to emergency depart with shortness of breath patient seen by her paving and surfacing labourer started the patient on prednisone 40 mg q.day, DuoNeb and continue Daliresp and triple inhaler, also has adjusted patient's noninvasive ventilator Linecare, which will be done on Thursday meanwhile will continue to monitor. today patient states feeling much better compared to when she arrived, however today patient was anxious and was given Xanax 0.5mg PO, now stats feeling better, patient appears malnourished discussed with the nursing staff to increase patient high-protein diet and will consult dietitian for further recommendation, will continue to monitor, will have a PT OT evaluate the patient. (2) Acute on chronic respiratory failure with hypoxia and hypercapnia: Code(s): J96.21 - Acute and chronic respiratory failure with hypoxia; J96.22 - Acute and chronic respiratory failure with hypercapnia Status: Acute Assessment and Plan: Continue BiPAP overnight as she did not bring her trilogy unit. Repeat blood gas in a.m. Wean oxygen to baseline as tolerated. (3) Elevated LFTs: Code(s): R79.89 - Other specified abnormal findings of blood chemistry Status: Acute Assessment and Plan: Abdominal exam is benign. Check right upper quadrant ultrasound hepatitis panel for completeness sake. (4) Pulmonary cachexia due to chronic obstructive pulmonary disease: Code(s): J44.9 - Chronic obstructive pulmonary disease, unspecified; R64 - Cachexia Status: Acute Assessment and Plan: Continue mirtazapine. Subjective Date/time seen: 02/16/22 13:00 02/16/2022 Interval history: patient with chronic respiratory failure secondary to severe panlobular emphysema on 3 L of oxygen around the clock and on noninvasive ventilator at home with poor compliance prese
[2022-02-16] MEDS: MIRTAZAPINE 30 MG TABLET PO (16:14)
[2022-02-16] MEDS: MONTELUKAST SODIUM 10 MG TABLET PO (22:49)
[2022-02-17] VITALS (17 sets, daily range): BP systolic 96–104; BP diastolic 63–64; PULSE 76–140; RESP 18–21; TEMP 36.2–37.3; O2SAT 88–98
[2022-02-17] MEDS: IPRATROPIUM BR 0.02% INH SOLN 0.5 MG/2.5 ML VIAL INHALATION ×3 (02:03→13:48)
[2022-02-17] MEDS: ALBUTEROL SULFATE NEB 2.5 MG/0.5 ML INH INHALATION ×3 (02:03→13:48)
[2022-02-17 06:18] LABS: Hematocrit 32.5 % (37.0-47.0); Mean Corpuscular HGB Conc 30.8 g/dl (32-36); Mean Corpuscular Hemoglobin 30.2 pg (26-34); Mean Corpuscular Volume 98.2 fl (80-100); Mean Platelet Volume 8.8 fl (7.4-10.4); Platelet Count Result 302 k/mm3 (150-375); Red Blood Count 3.31 M/mm3 (4.2-5.4); Red Cell Distribution Width 13.5 % (11.5-14.5); White Blood Count 5.9 K/mm3 (4.5-10.0)
[2022-02-17 06:31] LABS: Alanine Aminotransferase 49 U/L (4-35); Alkaline Phosphatase 69 U/L (38-126); Aspartate Amino Transferase 42 U/L (14-36); Bilirubin,Total 0.3 mg/dL (0.2-1.3); Blood Urea Nitrogen 6 mg/dL (7-17); Calcium 8.2 mg/dL (8.4-10.2); Carbon Dioxide > 40 mmol/L (22-30); Chloride 94 mmol/L (98-107); Estimated CRCL calculation 58 ml/min; Estimated Glomerular Filt Rate > 60; Glucose 70 mg/dL (65-110); Potassium 3.6 mmol/L (3.4-5.0); Sodium 134 mmol/L (137-145)
[2022-02-17] MEDS: ENOXAPARIN 40 MG/0.4 ML SYRINGE SUB-Q (08:37)
[2022-02-17] MEDS: ESCITALOPRAM OXALATE 10 MG TABLET 30 MG PO (08:37)
[2022-02-17] MEDS: ROFLUMILAST 500 MCG TABLET PO (08:38)
[2022-02-17] MEDS: ALPRAZolam (*CRX) 0.5 MG TABLET PO ×2 (08:38→13:35)
[2022-02-17] MEDS: FOLIC ACID 0.4 MG TABLET PO (08:38)
[2022-02-17] MEDS: predniSONE 20 MG TABLET 40 MG PO (08:38)
[2022-02-17] MEDS: CYANOCOBALAMIN 1,000 MCG TABLET 1000 MCG PO (08:38)
--- NOTE | 2022-02-17 10:05 | PM.PNPUL ---
Progress Note: A&P Assessment and Plan (1) Acute exacerbation of chronic obstructive pulmonary disease: Code(s): J44.1 - Chronic obstructive pulmonary disease with (acute) exacerbation Status: Acute Assessment and Plan: 56-year-old woman with GOLD grade for group B COPD with an FEV1 of 16% predicted, Severe panlobular emphysema throughout all lung [place] on CT scan from 10/29/2021, on 3 L oxygen 24-7, intubated 03/08/2020 and 07/02/2020, on nocturnal noninvasive ventilation with a trilogy with poor compliance (initiated 08/23/2022), on Daliresp and triple inhalers. She is status post left upper lobectomy and bleb resection for spontaneous pneumothorax in 2012. She has pulmonary cachexia. She has multiple hospitalizations for COPD exacerbations including 11/19/21 through 11/23/2021, 10/23/21 through 10/26/21, 08/21/21 through 08/22/21 and ER visits on 08/02/21 and 11/06/20. Patient smoked 2 PPD from age [age] for 82 PY and quit smoking a year and half ago and on a good day she can walk across the room. She also has severe anxiety. 02/14 today the patient tells me she is back at her baseline with no wheezing. I will change her Solu-Medrol to prednisone 40 mg p.o. q.day, will continue her albuterol and ipratropium nebulizers q.6 hours, I will continue her Daliresp 500 q.day, I will continue her montelukast 10 mg q.day. patient has no focal infiltrates on her chest x-ray and I will continue her azithromycin for a tracheobronchitis and discontinue the ceftriaxone. Patient is currently on 2 L nasal cannula which is better than her baseline. She had a home O2 evaluation on her last hospitalization on 11/22/2021 and she required 3 L at rest and with exertion. While she is in the hospital I would continue noninvasive ventilator with the current settings as she states that this has feeling comfortable for her. Patient is on a straight BiPAP rate of 20, pressures 12/5, inspiratory time 1, rise of to and 35% FiO2. 02/17 Patient states that she is breathing at her baseline. She has mild cough that is at her baseline that is mostly dry. She has minimal production of clear phlegm. She has been ambulating in the room normally. She is wearing 2 L during the day with saturations 98%. She wore the hospital BiPAP unit overnight. She has had a fever with no GI, , or respiratory complaints. She does complain of sore teeth in her right lower jaw. Patient will be treated with Augmentin. Home oxygen assessment demonstrated rest room air saturations 88%, rest nasal cannula 1 L saturation 91%, exercise 1 L nasal cannula 88%, exercise 2 L nasal cannula saturation 91%. Patient requires 1 L with rest and 2 with ambulation. From a pulmonary perspective patient is ready to be discharged on these pulmonary medicines. If she is discharged today we will confirm that [employer], can retrain her on her home noninvasive ventilator. Prednisone 40 mg PO X3 days (last dose 02/17) Azithromycin 250 mg PO X 2 days (last dose 02/17) Trelegy 100/62.5/25 at 1 puff q.day Rescue albuterol nebulizers 2.5 mg q.i.d. p.r.n. shortness of breath and wheezing Daliresp 500 mcg p.o. q.day Montelukast 10 mg p.o. q.h.s. Home O2 At 1 L with rest and 2 L with ambulation. When she sleeps and naps : noninvasive ventilation with AVAPS-AE mode with a breath rate set at auto, tidal volume 200, minimal EPAP 5, maximal EPAP 7, minimal pressure support 4, maximal pressure support 20 the rise time of 3, plus 3 L bleed in. The total volume set is 200 and when they retrain her today we will see if we can increase her tidal volume to 350 mL and if she tolerates that will increase to 400 mL. (2) Acute on chronic respiratory failure with hypoxia and hypercapnia: Code(s): J96.21 - Acute and chronic respiratory failure with hypoxia; J96.22 - Acute and chronic respiratory failure with hypercapnia Status: Acute Assessment and Plan: patient has chronic hypercarbic respirato
--- NOTE | 2022-02-17 10:16 | HOMEO2EVAL ---
Evaluation was performed at [facility] Home Oxygen Evaluation RC: Home Oxygen (O2) Evaluation Start: 02/17/22 08:47 Freq: ONCE Status: Active Protocol: RPE Activity Type Activity Date Activity User E-Sign Co-Sign Detail Recorded Client Recorded Date Recorded By Document 02/17/22 09:40 [email or web address] [email or web address] 02/17/22 10:16 DJO Document 02/17/22 09:45 [email or web address] [email or web address] 02/17/22 10:16 DJO Document 02/17/22 09:50 [email or web address] [email or web address] 02/17/22 10:16 DJO Document 02/17/22 09:55 [email or web address] [email or web address] 02/17/22 10:16 DJO Document 02/17/22 10:10 [email or web address] [email or web address] 02/17/22 10:16 DJO 02/17/22 02/17/22 02/17/22 09:40 09:45 09:50 Home O2 Evaluation Test Phase Resting Resting Exercise Oxygen Delivery Room Air Nasal Cannula Nasal Cannula Oxygen Flow Rate (L/min) 1 1 Pulse Oximetry (90-100 %) 88 L 91 88 L Pulse Rate (60-100 beats/min) 114 H 112 H 138 H Activity Tolerance Ambulation Distance (feet) Ambulation Distance (meters) Treatment Charges O2 Evaluation - Inpatient 02/17/22 02/17/22 09:55 10:10 Home O2 Evaluation Test Phase Exercise Resting Oxygen Delivery Nasal Cannula Oxygen Flow Rate (L/min) 2 1 Pulse Oximetry (90-100 %) 91 91 Pulse Rate (60-100 beats/min) 140 H 110 H Activity Tolerance Good Ambulation Distance (feet) 300 Ambulation Distance (meters) 91.43 Treatment Charges
--- NOTE | 2022-02-17 10:16 | PCRCNOTE ---
HOME O2 EVAL COMPLETE, 1L AT REST AND 2L WITH ACTIVITY. SENT NEW ORDERS TO [facility].
--- NOTE | 2022-02-17 13:01 | PM.DS ---
DS: Admitting Diagnosis Discharge Date 02/17/2022 Admitting Diagnosis shortness of breath DS: Discharge Diagnosis Discharge Diagnosis (1) COPD exacerbation: Code(s): J44.1 - Chronic obstructive pulmonary disease with (acute) exacerbation Status: Acute Assessment and Plan: Per patient report, her trilogy has been ?beeping every 10 minutes at night? and thus she has not been using it all night, which may very well be the precipitating etiology of her COPD exacerbation. Continue scheduled bronchodilators, steroids, and maintenance inhalers. Continue azithromycin and ceftriaxone given increasing cough productive of purulent sputum. 02/14/2022 Interval history: patient with chronic respiratory failure secondary to severe panlobular emphysema on 3 L of oxygen around the clock and on noninvasive ventilator at home with poor compliance presented to emergency depart with shortness of breath patient seen by her bulk plant agent started the patient on prednisone 40 mg q.day, DuoNeb and continue Daliresp and triple inhaler, also has adjusted patient's noninvasive ventilator Linecare accompanied. which will be done on Thursday meanwhile will continue to monitor. 02/15/2022 Interval history: patient with chronic respiratory failure secondary to severe panlobular emphysema on 3 L of oxygen around the clock and on noninvasive ventilator at home with poor compliance presented to emergency depart with shortness of breath patient seen by her bulk plant agent started the patient on prednisone 40 mg q.day, DuoNeb and continue Daliresp and triple inhaler, also has adjusted patient's noninvasive ventilator Linecare, which will be done on Thursday meanwhile will continue to monitor. today patient states feeling much better compared to when she arrived, patient appears malnourished discussed with the nursing staff to increase patient high-protein diet and will consult dietitian for further recommendation, will continue to monitor, will have a PT OT evaluate the patient. 02/16/2022 Interval history: patient with chronic respiratory failure secondary to severe panlobular emphysema on 3 L of oxygen around the clock and on noninvasive ventilator at home with poor compliance presented to emergency depart with shortness of breath patient seen by her bulk plant agent started the patient on prednisone 40 mg q.day, DuoNeb and continue Daliresp and triple inhaler, also has adjusted patient's noninvasive ventilator Linecare, which will be done on Thursday meanwhile will continue to monitor. today patient states feeling much better compared to when she arrived, however today patient was anxious and was given Xanax 0.5mg PO, now stats feeling better, patient appears malnourished discussed with the nursing staff to increase patient high-protein diet and will consult dietitian for further recommendation, will continue to monitor, will have a PT OT evaluate the patient. (2) Acute on chronic respiratory failure with hypoxia and hypercapnia: Code(s): J96.21 - Acute and chronic respiratory failure with hypoxia; J96.22 - Acute and chronic respiratory failure with hypercapnia Status: Acute Assessment and Plan: Continue BiPAP overnight as she did not bring her trilogy unit. Repeat blood gas in a.m. Wean oxygen to baseline as tolerated. (3) Elevated LFTs: Code(s): R79.89 - Other specified abnormal findings of blood chemistry Status: Acute Assessment and Plan: Abdominal exam is benign. Check right upper quadrant ultrasound hepatitis panel for completeness sake. (4) Pulmonary cachexia due to chronic obstructive pulmonary disease: Code(s): J44.9 - Chronic obstructive pulmonary disease, unspecified; R64 - Cachexia Status: Acute Assessment and Plan: Continue mirtazapine. DS: Summary Hospital Course Reason for hospitalization: Chief Complaint: Shortness of breath. Narrative: This is a 56-year-old female with end-stage
--- NOTE | 2022-02-17 14:24 | PCPTNOTE ---
Approached patient to inquire about physical therapy needs. Hospital discharge orders already placed. Patient states she does not feel she has any physical therapy needs at this time. States she has been getting up to go to the bathroom and feels steady on her feet and does not feel any increased weakness. States she has a walker and a wheelchair at home if needed but she does not use them. No physical therapy evaluation performed or needed based on screening the patient.
== END 2022-02-17 15:42 | disposition home or self-care (01) | DRG 190 ==
LOC: ANHED 13:38 → ANHIMU 16:21 → ANH3MEDSUR 02-16 20:20 → ANHIMU 02-18 11:45
PROVIDERS: Physician Assistant; Admitting Provider Internal Medicine; Emergency Provider Emergency Medicine; PCP Family Medicine; Visit Provider Family Medicine
DX: J43.9 Emphysema, unspecified (principal); J96.21 Acute and chronic respiratory failure with hypoxia; J96.22 Acute and chronic respiratory failure with hypercapnia; R64 Cachexia; E46 Unspecified protein-calorie malnutrition; Z68.1 Body mass index [BMI] 19.9 or less, adult; R79.89 Other specified abnormal findings of blood chemistry; E53.8 Deficiency of other specified B group vitamins; K21.9 Gastro-esophageal reflux disease without esophagitis; F10.10 Alcohol abuse, uncomplicated; F41.9 Anxiety disorder, unspecified; Z79.899 Other long term (current) drug therapy; Z79.51 Long term (current) use of inhaled steroids; Z79.52 Long term (current) use of systemic steroids; Z82.49 Family history of ischemic heart disease and other diseases of the circulatory system; Z99.81 Dependence on supplemental oxygen
CPT/HCPCS: 36415; 36600; 71045; 71046; 76705; 80048; 80053; 80074; 82375; 82805; 83050; 83605; 83735; 83880; 84484; 85025; 85027; 87040; 93005; 94002; 94003; 94618; 94640; 96374; 97165; 99285; A9270; J0456; J0696; J1650; J2920; J2930; J7120; J7512

== ENCOUNTER 2022-03-22 17:57 | Emergency (ER) | payer MEDICARE, MEDICAID, SELFPAY ==
--- NOTE | ~2022-03-22 | XR_ITS ---
EXAMINATION: XR chest 1V portable Exam Date/Time: 03/22/2022 19:25 CDT HISTORY: shortness of breath Comparison: 02/17/2022. RESULT: Lines, tubes, and devices: None. Lungs and pleura: Severe emphysematous and senescent changes with multiple pleural blebs and bilater al suture lines.. Cardiomediastinal silhouette: Stable cardiomediastinal silhouette. Other: No acute osseous or upper abdominal finding. IMPRESSION: No acute cardiopulmonary process. Reviewed, dictated and finalized at location K.
[2022-03-22 17:58] VITALS: BP 102/88; PULSE 96; RESP 22; TEMP 37.1; O2SAT 100
--- NOTE | 2022-03-22 19:09 | ECG_ITS ---
Measurements Intervals [place] Rate: 96 P: 90 NV: 149 QRS: 67 QRSD: 87 T: 89 QT: 352 QTc: 447 Interpretive Statements SINUS RHYTHM NONSPECIFIC T-WAVE ABNORMALITY CANNOT RULE OUT OLD INFEROLATERAL IN A SMALL Q-WAVES ARE PRESENT COMPARED TO THE PRIOR TRACING, THE PATIENT IS NO LONGER TACHYCARDIC Electronically Signed On 03-23-2022 8:56:22 CDT by Lizbeth Neville M.D.
[2022-03-22 19:39] LABS: Alveolar/Arterial O2 Gradient 89.5 mmHg; Base Excess ABG 7.1 mEq/l (+/-2.0); Carboxyhemoglobin 0.3 % THb (0-2.0); Fractional Inspired Oxygen 36 %; Methemoglobin ABG 0.3 %THb (0-1.5); Oxygen Content ABG 16.6 %vol (16.0-22.0); Oxygen Saturation ABG 97.8 % (95.0-100.0); Oxyhemoglobin 96.8 % THb (90.0-100.0); PCO2 ABG 52.6 mmHg (35.0-45.0); PO2 ABG 106.2 mmHg (80.0-100.0); PO2 FiO2 Ratio Arterial Blood 2.95 %; Reduced Hemoglobin 2.6 %THb (0-5.0); Total Hemoglobin 12.1 g/dL (12.0-18.0); pH ABG 7.415 (7.350-7.450)
[2022-03-22 19:40] LABS: Device NASAL CANNULA; Modified Allen's Test Pass; Site Drawn RIGHT RADIAL
[2022-03-22 19:45] LABS: Basophils Percent Auto 0.4 % (0.2-1.2); Eosinophils Percent Auto 0.4 % (0-4.4); Immature Granulocyte Absolute 0.02 K/mm3 (0.00-0.031); Immature Granulocyte Percent A 0.3 % (0-0.5); Lymphocytes Absolute Auto 0.56 K/mm3 (0.9-3.2); Lymphocytes Percent Auto 7.2 % (18.3-44.2); Mean Corpuscular HGB Conc 31.4 g/dl (32-36); Mean Corpuscular Hemoglobin 31.1 pg (26-34); Mean Corpuscular Volume 98.9 fl (80-100); Mean Platelet Volume 8.9 fl (7.4-10.4); Monocytes Absolute Auto 0.9 K/mm3 (0.1-0.6); Neutrophils Absolute Auto 6.2 K/mm3 (1.3-6.7); Neutrophils Percent Auto 79.7 % (45.5-73.1); Platelet Count Result 372 k/mm3 (150-375); Red Blood Count 3.54 M/mm3 (4.2-5.4); White Blood Count 7.8 K/mm3 (4.5-10.0)
[2022-03-22] MEDS: ALPRAZolam (*CRX) 0.5 MG TABLET PO (19:51)
--- NOTE | 2022-03-22 19:55 | ED.ANXIETY ---
HPI - Anxiety General Chief Complaint: Anxiety Stated Complaint: anxiety Time Seen by Provider: 03/22/22 18:56 Source: patient, EMS, RN notes reviewed and old records reviewed Mode of arrival: EMS Limitations: no limitations History of Present Illness HPI narrative: This is a 56 year old female with history of anxiety, malnutrition, COPD, chronic respiratory failure on 4 L NC who presents for evaluation of pain attack. Patient states she was taking Xanax for anxiety but she stopped taking 1 week ago. She is unable to state how long she was taking Xanax. She thinks she was only on it for months. She reports she was tapering her medication until she was out. She does not want to take Xanax so she has been using marijuana edibles to help with appetite and her anxiety for 1 month. She has come to ER today because she is feeling extremely anxious and shaky, and this panic attack is making her feel short of breath. She does not think she could be withdrawing. She denies drinking alcohol significantly. She denies fever, worsening cough, hemoptysis, chest pain, nausea, vomiting or diarrhea. She just wants help with her anxiety. MD complaint: anxiety Related Data Home Medications Medication Instructions Recorded Confirmed escitalopram oxalate 10 mg tablet 30 mg PO DAILY 11/15/19 02/13/22 mirtazapine 30 mg tablet 30 mg PO QPM 10/22/21 02/13/22 montelukast 10 mg tablet 10 mg PO HS 10/22/21 02/13/22 Allergies Allergy/AdvReac Type Severity Reaction Status Date / Time No Known Allergies Allergy Verified 03/18/22 10:45 Review of Systems Review of Systems: All systems reviewed & are unremarkable except as noted in HPI and below Constitutional: Constitutional: Denies chills, Denies fatigue and Denies fever(s) ENT: Denies dizziness and Denies nasal congestion Cardiovascular: Cardiovascular: Denies chest pain Respiratory: Respiratory: Reports cough (chronic) and Reports dyspnea (chronic) Gastrointestinal: Gastrointestinal: Denies abdominal pain, Denies nausea and Denies vomiting PMFSH Past Medical History Medical History Abnormal EKG EKG has previously shown ST elevation which appears to be early repolarization. Alcohol abuse Anorexia Anxiety Asthma B12 deficiency anemia Chronic anemia Chronic respiratory failure with hypoxia and hypercapnia On trilogy unit at nighttime. 3 L nasal cannula during the day. COPD with emphysema Gastroesophageal reflux disease Generalized anxiety disorder with panic attacks Pulmonary cachexia due to chronic obstructive pulmonary disease Spontaneous pneumothorax (08/2012) Several pneumothoraces status post VATS procedure and apical blebectomy as well as pleurodesis. Tobacco abuse Quit in 2019 per patient report. Vitamin D deficiency Surgical History Surgical History History of bilateral tubal ligation History of History of hip surgery (07/2019) ORIF of right hip fracture. History of tonsillectomy Status post thoracotomy Left-sided VATS procedure and apical bleb resection with pleurodesis. Family History Family History Father Acute myocardial infarction Father No problems noted. Unknown No problems noted. Mother No problems noted. Sibling No problems noted. Social History Social History (Updated 03/18/22 @ 10:48 by Christina Duenas MA) Social History: The patient lives with her 19-year-old son in [place]. She has 2 older sons who are no longer at home. 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 She is a former smoker and reportedly quit in 2019. She smoked as many as 2 packs of cigarettes per day prior to quitting. She has significantly cut back in her drinking and now consumes maybe 5 alcoholic beverages a week. She denies illicit s
[2022-03-22 20:05] LABS: Alanine Aminotransferase 15 U/L (6-35); Albumin Level 3.9 g/dL (3.5-5.1); Alkaline Phosphatase 78 U/L (38-126); Anion Gap 4 mmol/L (8-16); Aspartate Amino Transferase 24 U/L (14-36); Bilirubin,Total < 0.1 mg/dL (0.2-1.3); Blood Urea Nitrogen 8 mg/dL (7-17); Calcium 8.8 mg/dL (8.4-10.2); Carbon Dioxide 39 mmol/L (22-30); Chloride 92 mmol/L (98-107); Estimated CRCL calculation 114 ml/min; Estimated Glomerular Filt Rate > 60; Glucose 159 mg/dL (65-110); Magnesium 1.9 mg/dL (1.6-2.3); Potassium 2.6 mmol/L (3.4-5.0); Sodium 135 mmol/L (137-145)
[2022-03-22] MEDS: POTASSIUM CHLORIDE 20 MEQ TABLET 40 MEQ PO (20:41)
--- NOTE | 2022-03-22 21:52 | PC.NURSE ---
called [facility] to request transport. ETA [facility], [facility] and [facility] unavailable tonight.
--- NOTE | 2022-03-22 21:57 | PC.NURSE ---
Discharge papers reviewed with patient at this time. Patient denies any questions or concerns. Papers given to patient. Patient moved to room 3 in the ED to await EMS arrival for transport home.
--- NOTE | 2022-03-22 22:14 | PC.NURSE ---
Assumed care of pt at this time, report received from Ketty KAY. Pt awaiting transport via EMS.
[2022-03-22 22:15] VITALS: BP 96/59; PULSE 84; RESP 22; O2SAT 100
--- NOTE | 2022-03-23 00:29 | PC.NURSE ---
Called [facility] to request transport. [facility]. ETA 1hour 30 minutes. Cancelled [facility].
[2022-03-23 01:07] VITALS: PULSE 77; RESP 20; O2SAT 100
--- NOTE | 2022-03-23 03:09 | PC.NURSE ---
[facility] here.
== END 2022-03-23 03:24 | disposition home or self-care (01) ==
PROVIDERS: Emergency Provider General Practice; PCP Family Medicine
DX: F41.9 Anxiety disorder, unspecified (principal); J43.9 Emphysema, unspecified; E87.6 Hypokalemia; J96.11 Chronic respiratory failure with hypoxia; J96.12 Chronic respiratory failure with hypercapnia; J45.909 Unspecified asthma, uncomplicated; R64 Cachexia; D51.3 Other dietary vitamin B12 deficiency anemia; E55.9 Vitamin D deficiency, unspecified; K21.9 Gastro-esophageal reflux disease without esophagitis; Z68.1 Body mass index [BMI] 19.9 or less, adult; Z99.81 Dependence on supplemental oxygen; Z87.891 Personal history of nicotine dependence; R94.31 Abnormal electrocardiogram [ECG] [EKG]
CPT/HCPCS: 36415; 36600; 71045; 80053; 82375; 82805; 83050; 83735; 85025; 93005; 99283; A9270

== ENCOUNTER 2022-03-29 17:43 | Emergency (ER) | payer MEDICARE, MEDICAID, SELFPAY ==
--- NOTE | ~2022-03-29 | XR_ITS ---
EXAMINATION: XR chest 1V portable Exam Date/Time: 03/29/2022 18:03 CDT HISTORY: cough, anxiety, hx of COPD, smoker Comparison: 03/22/2022, 02/17/2022, 02/14/2022. RESULT: Lines, tubes, and devices: None. Lungs and pleura: Stable severe emphysematous change, senescent change, architectural distortion, bl eb formation and postsurgical changes in the upper lungs. Cardiomediastinal silhouette: Stable cardiomediastinal silhouette. Other: No acute osseous or upper abdominal finding. IMPRESSION: No acute cardiopulmonary process. Reviewed, dictated and finalized at location K.
[2022-03-29 17:44] VITALS: BP 155/87; PULSE 117; RESP 30; TEMP 36.3; O2SAT 96
--- NOTE | 2022-03-29 18:01 | ECG_ITS ---
Measurements Intervals [place] Rate: 91 P: 89 AK: 142 QRS: 65 QRSD: 74 T: 79 QT: 350 QTc: 433 Interpretive Statements SINUS RHYTHM CANNOT RULE OUT INFEROLATERAL INFARCTION, OLD ABNORMAL ECG COMPARED TO ECG 03/22/2022 19:37:49 NO SIGNIFICANT CHANGES Electronically Signed On 03-30-2022 11:02:35 CDT by Cain Alcala M.D.
--- NOTE | 2022-03-29 18:03 | ED.GENADULT ---
HPI - General Adult General Chief complaint: Anxiety Stated complaint: anxiety Time Seen by Provider: 03/29/22 17:46 Source: RN notes reviewed History of Present Illness HPI narrative: Patient presents emergency department from home via EMS for anxiety. Patient states she had increased anxiety throughout the day today. The patient is normally on Xanax daily but has been out of her Xanax for the past week and is waiting to see her physician to get a refill states she has a history of COPD and is chronically on 2 L nasal cannula states she has been feeling more short of breath as well as anxious. She denies any fevers or chills chest pain abdominal pain nausea vomiting or any other symptoms Related Data Home Medications Medication Instructions Recorded Confirmed escitalopram oxalate 10 mg tablet 30 mg PO DAILY 11/15/19 02/13/22 mirtazapine 30 mg tablet 30 mg PO QPM 10/22/21 02/13/22 montelukast 10 mg tablet 10 mg PO HS 10/22/21 02/13/22 Allergies Allergy/AdvReac Type Severity Reaction Status Date / Time No Known Allergies Allergy Verified 03/29/22 17:47 Review of Systems Review of Systems: Gen.: Denies fevers or chills ENT: Denies congestion Respiratory: Reports shortness of breath CV: Denies chest pain or palpitations GI: Denies abdominal pain nausea, emesis or diarrhea denies burning, urgency, frequency or hematuria Musculoskeletal: Denies back pain or muscle pain Neuro: Denies numbness, tingling, weakness or focal weakness Skin: Denies rash Psych: Reports anxiety Except as documented, all other systems reviewed and negative PMFSH Past Medical History Medical History Abnormal EKG EKG has previously shown ST elevation which appears to be early repolarization. Alcohol abuse Anorexia Anxiety Asthma B12 deficiency anemia Chronic anemia Chronic respiratory failure with hypoxia and hypercapnia On trilogy unit at nighttime. 3 L nasal cannula during the day. COPD with emphysema Gastroesophageal reflux disease Generalized anxiety disorder with panic attacks Pulmonary cachexia due to chronic obstructive pulmonary disease Spontaneous pneumothorax (08/2012) Several pneumothoraces status post VATS procedure and apical blebectomy as well as pleurodesis. Tobacco abuse Quit in 2019 per patient report. Vitamin D deficiency Surgical History Surgical History History of bilateral tubal ligation History of History of hip surgery (07/2019) ORIF of right hip fracture. History of tonsillectomy Status post thoracotomy Left-sided VATS procedure and apical bleb resection with pleurodesis. Family History Family History Father Acute myocardial infarction Father No problems noted. Unknown No problems noted. Mother No problems noted. Sibling No problems noted. Social History Social History Social History: The patient lives with her 19-year-old son in [place]. She has 2 older sons who are no longer at home. 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 She is a former smoker and reportedly quit in 2019. She smoked as many as 2 packs of cigarettes per day prior to quitting. She has significantly cut back in her drinking and now consumes maybe 5 alcoholic beverages a week. She denies illicit substance use. Her son Lino Foote and ex- Neo Brooke are her surrogate decision maker and she wishes to be a full code. Smoking packs per day: 2 Smoking cigarettes per day: 40.0 Years smoked: 45 Smoking pack-years: 90.00 Smoking status: Former smoker Tobacco type: cigarettes Second hand tobacco smoke exposure: Yes Smoking end date: 10/19/19 Alcohol intake: current Drinks per week: 2 Spiritual care concerns: No
[2022-03-29] MEDS: ALPRAZolam (*CRX) 0.5 MG TABLET PO (18:17)
[2022-03-29 18:30] LABS: Alveolar/Arterial O2 Gradient 77.8 mmHg; Base Excess ABG 2.9 mEq/l (+/-2.0); Carboxyhemoglobin 0.4 % THb (0-2.0); Fractional Inspired Oxygen 32 %; HCO3 ABG 29.3 mEq/l (22.0-26.0); Methemoglobin ABG 0.2 %THb (0-1.5); Oxygen Content ABG 17.8 %vol (16.0-22.0); Oxygen Saturation ABG 96.5 % (95.0-100.0); Oxyhemoglobin 95.4 % THb (90.0-100.0); PO2 ABG 89.5 mmHg (80.0-100.0); Total Hemoglobin 13.2 g/dL (12.0-18.0); pH ABG 7.368 (7.350-7.450)
[2022-03-29 18:31] LABS: Device NASAL CANNULA; Modified Allen's Test Pass; Site Drawn LEFT RADIAL
[2022-03-29 18:44] LABS: Basophils Percent Auto 0.3 % (0.2-1.2); Eosinophils Percent Auto 0.4 % (0-4.4); Hematocrit 39.8 % (37.0-47.0); Hemoglobin 12.4 g/dL (12.0-15.0); Immature Granulocyte Absolute 0.02 K/mm3 (0.00-0.031); Immature Granulocyte Percent A 0.3 % (0-0.5); Lymphocytes Absolute Auto 0.62 K/mm3 (0.9-3.2); Mean Corpuscular HGB Conc 31.2 g/dl (32-36); Mean Corpuscular Hemoglobin 30.8 pg (26-34); Mean Platelet Volume 8.4 fl (7.4-10.4); Monocytes Absolute Auto 0.5 K/mm3 (0.1-0.6); Monocytes Percent Auto 6.8 % (2.6-8.5); Neutrophils Absolute Auto 5.7 K/mm3 (1.3-6.7); Neutrophils Percent Auto 83.2 % (45.5-73.1); Platelet Count Result 474 k/mm3 (150-375); Red Blood Count 4.02 M/mm3 (4.2-5.4); Red Cell Distribution Width 12.8 % (11.5-14.5); White Blood Count 6.9 K/mm3 (4.5-10.0)
[2022-03-29 18:52] LABS: Alanine Aminotransferase 10 U/L (6-35); Albumin Level 4.3 g/dL (3.5-5.1); Alkaline Phosphatase 78 U/L (38-126); Anion Gap 2 mmol/L (8-16); Aspartate Amino Transferase 19 U/L (14-36); Bilirubin,Total 0.2 mg/dL (0.2-1.3); Blood Urea Nitrogen 5 mg/dL (7-17); Calcium 9.4 mg/dL (8.4-10.2); Carbon Dioxide 36 mmol/L (22-30); Chloride 97 mmol/L (98-107); Estimated CRCL calculation 121 ml/min; Estimated Glomerular Filt Rate > 60; Glucose 112 mg/dL (65-110); Potassium 3.8 mmol/L (3.4-5.0); Sodium 135 mmol/L (137-145)
[2022-03-29 19:00] LABS: INR 0.8; Prothrombin Time 11.2 Seconds (11.1-14.7)
[2022-03-29 20:58] VITALS: BP 101/67; PULSE 97; RESP 20; O2SAT 97
== END 2022-03-29 21:31 | disposition home or self-care (01) ==
PROVIDERS: Emergency Provider Emergency Medicine; PCP Family Medicine
DX: F41.1 Generalized anxiety disorder (principal); J43.9 Emphysema, unspecified; J96.11 Chronic respiratory failure with hypoxia; J96.12 Chronic respiratory failure with hypercapnia; J45.909 Unspecified asthma, uncomplicated; R64 Cachexia; K21.9 Gastro-esophageal reflux disease without esophagitis; D51.9 Vitamin B12 deficiency anemia, unspecified; E55.9 Vitamin D deficiency, unspecified; R06.02 Shortness of breath; Z99.81 Dependence on supplemental oxygen; Z87.891 Personal history of nicotine dependence; Z68.20 Body mass index [BMI] 20.0-20.9, adult; R94.31 Abnormal electrocardiogram [ECG] [EKG]
CPT/HCPCS: 36415; 36600; 71045; 80053; 82375; 82805; 83050; 85025; 85610; 85730; 93005; 99283; A9270

== ENCOUNTER 2022-04-02 12:53 | Inpatient (IN) | payer MEDICARE, MEDICAID, SELFPAY ==
[2022-04-02] VITALS (16 sets, daily range): BP systolic 83–147; BP diastolic 53–97; PULSE 78–130; RESP 17–30; TEMP 36.3–36.6; O2SAT 93–100; BMI 13.8; BMI 17.2
--- NOTE | ~2022-04-02 | XR_ITS ---
XR chest 1V portable DATE: 04/02/2022 13:18 INDICATION: Dyspnea TECHNIQUE: Portable upright AP chest on 04/02/2022 at 1314 hours COMPARISON: 03/29/2022 portable AP chest FINDINGS: There is evidence of bilateral lung resections. Emphysematous changes are noted. No pulmona ry infiltrate or consolidation is detected. No pleural effusion, pulmonary vascular congestion or pne umothorax is evident. Heart size is within normal range. Prominent diffuse osteopenia. IMPRESSION: Postoperative changes of both lungs COPD Osteopenia Reviewed, dictated and finalized at location A.
[2022-04-02] MEDS: IPRATROPIUM BR 0.02% INH SOLN 0.5 MG/2.5 ML VIAL 1 MG INHALATION (13:19)
[2022-04-02] MEDS: ALBUTEROL SULFATE NEB 2.5 MG/3 ML INH 15 MG INHALATION (13:19)
[2022-04-02 13:58] LABS: Basophils Percent Auto 0.3 % (0.2-1.2); Eosinophils Percent Auto 0.3 % (0-4.4); Hematocrit 35.6 % (37.0-47.0); Hemoglobin 11.5 g/dL (12.0-15.0); Immature Granulocyte Absolute 0.04 K/mm3 (0.00-0.031); Immature Granulocyte Percent A 0.4 % (0-0.5); Lymphocytes Absolute Auto 0.46 K/mm3 (0.9-3.2); Lymphocytes Percent Auto 4.6 % (18.3-44.2); Mean Corpuscular HGB Conc 32.3 g/dl (32-36); Mean Corpuscular Hemoglobin 30.7 pg (26-34); Mean Corpuscular Volume 94.9 fl (80-100); Mean Platelet Volume 8.4 fl (7.4-10.4); Monocytes Absolute Auto 0.7 K/mm3 (0.1-0.6); Monocytes Percent Auto 6.9 % (2.6-8.5); Neutrophils Absolute Auto 8.8 K/mm3 (1.3-6.7); Neutrophils Percent Auto 87.5 % (45.5-73.1); Platelet Count Result 425 k/mm3 (150-375); Red Blood Count 3.75 M/mm3 (4.2-5.4); Red Cell Distribution Width 12.6 % (11.5-14.5); White Blood Count 10.1 K/mm3 (4.5-10.0)
[2022-04-02] MEDS: predniSONE 20 MG TABLET 60 MG PO (13:59)
[2022-04-02] MEDS: ALPRAZolam (*CRX) 0.5 MG TABLET 1 MG PO (13:59)
[2022-04-02 14:08] LABS: Alanine Aminotransferase 10 U/L (6-35); Albumin Level 4.3 g/dL (3.5-5.1); Alkaline Phosphatase 77 U/L (38-126); Anion Gap 4 mmol/L (8-16); Aspartate Amino Transferase 23 U/L (14-36); Bilirubin,Total 0.2 mg/dL (0.2-1.3); Calcium 8.7 mg/dL (8.4-10.2); Carbon Dioxide 37 mmol/L (22-30); Chloride 85 mmol/L (98-107); Estimated CRCL calculation 101 ml/min; Estimated Glomerular Filt Rate > 60; Glucose 140 mg/dL (65-110); Potassium 3.4 mmol/L (3.4-5.0); Sodium 126 mmol/L (137-145)
[2022-04-02 14:26] LABS: Troponin I 0.054 ng/mL (0.000-0.034)
[2022-04-02 14:36] LABS: Blood Urea Nitrogen < 2 mg/dL (7-17)
[2022-04-02] MEDS: LACTATED RINGERS 1,000 ML 999 ML IV CONT (14:53)
[2022-04-02] MEDS: ASPIRIN 81 MG CHEWABLE TABLET 324 MG PO (14:54)
[2022-04-02] MEDS: guaiFENesin/DEXTROMETHORPHAN 10 ML UDC PO (14:57)
[2022-04-02 15:20] LABS: D Dimer 0.37 ug/mL (<0.48)
[2022-04-02 16:47] LABS: Troponin I 0.848 ng/mL (0.000-0.034)
--- NOTE | 2022-04-02 16:56 | ED.SOB ---
HPI - SOB/Dyspnea General Chief Complaint: Shortness of Breath/Dyspnea Stated Complaint: dyspnea Time Seen by Provider: 04/02/22 13:01 History of Present Illness HPI Narrative: 56-year-old female presenting with difficulty breathing over the past day, she states that she also feels some nonradiating chest tightness, she feels like she cannot catch her breath, denies any recent cough, fevers or chills. She is also concerned because she has some new bruises on her arms, and has been extremely anxious, she states she ran out of her Connect2mex recently. Related Data Home Medications Medication Instructions Recorded Confirmed escitalopram oxalate 10 mg tablet 30 mg PO DAILY 11/15/19 02/13/22 mirtazapine 30 mg tablet 30 mg PO QPM 10/22/21 02/13/22 montelukast 10 mg tablet 10 mg PO HS 10/22/21 02/13/22 Allergies Allergy/AdvReac Type Severity Reaction Status Date / Time No Known Allergies Allergy Verified 04/02/22 13:16 Review of Systems Review of Systems: CONST: No fever. HEENT: No sore throat C/V: Chest tightness RESP: Difficulty breathing GI: No nausea or vomiting : No dysuria. M/S: No joint pain. SKIN: Rash bilateral arms. NEURO: [No headache or focal numbness or weakness] PSYCH: Anxious PMFSH Past Medical History Medical History Abnormal EKG EKG has previously shown ST elevation which appears to be early repolarization. Alcohol abuse Anorexia Anxiety Asthma B12 deficiency anemia Chronic anemia Chronic respiratory failure with hypoxia and hypercapnia On trilogy unit at nighttime. 3 L nasal cannula during the day. COPD with emphysema Gastroesophageal reflux disease Generalized anxiety disorder with panic attacks Pulmonary cachexia due to chronic obstructive pulmonary disease Spontaneous pneumothorax (08/2012) Several pneumothoraces status post VATS procedure and apical blebectomy as well as pleurodesis. Tobacco abuse Quit in 2019 per patient report. Vitamin D deficiency Surgical History Surgical History History of bilateral tubal ligation History of History of hip surgery (07/2019) ORIF of right hip fracture. History of tonsillectomy Status post thoracotomy Left-sided VATS procedure and apical bleb resection with pleurodesis. Family History Family History Father Acute myocardial infarction Father No problems noted. Unknown No problems noted. Mother No problems noted. Sibling No problems noted. Social History Social History Social History: The patient lives with her 19-year-old son in [place]. She has 2 older sons who are no longer at home. 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 She is a former smoker and reportedly quit in 2019. She smoked as many as 2 packs of cigarettes per day prior to quitting. She has significantly cut back in her drinking and now consumes maybe 5 alcoholic beverages a week. She denies illicit substance use. Her son Lino Foote and ex- Neo Brooke are her surrogate decision maker and she wishes to be a full code. Smoking packs per day: 2 Smoking cigarettes per day: 40.0 Years smoked: 45 Smoking pack-years: 90.00 Smoking status: Former smoker Tobacco type: cigarettes Second hand tobacco smoke exposure: Yes Smoking end date: 10/19/19 Alcohol intake: current Drinks per week: 2 Spiritual care concerns: No Agree to blood products: Yes Exam Narrative: EXAMINATION OF ORGAN SYSTEMS/BODY AREAS: Constitutional: Vital signs per nursing GENERAL: Hyperventilating clutching her oxygen mask stating that it does not seem to be working, tachycardia HEAD: Normal with no signs of head trauma. EYES: EOMI, conjunctiva normal ENT: Hearing grossly intact LUNGS: Tachypnea, prolonge
--- NOTE | 2022-04-02 16:58 | ECG_ITS ---
Measurements Intervals [place] Rate: 118 P: -29 AL: 124 QRS: 2 QRSD: 92 T: -30 QT: 338 QTc: 475 Interpretive Statements SINUS TACHYCARDIA POSSIBLE LATERAL MYOCARDIAL INFARCTION , PROBABLY OLD [30 ms Q WAVE IN I/aVL/V5/V6] ABNORMAL RHYTHM ECG COMPARED TO ECG 03/29/2022 18:32:30 SINUS TACHYCARDIA NOW PRESENT Electronically Signed On 04-03-2022 11:13:55 CDT by Ralph García MD
[2022-04-02] MEDS: ENOXAPARIN 40 MG/0.4 ML SYRINGE SUB-Q (19:15)
--- NOTE | 2022-04-02 20:12 | ADMGEN ---
This patient, Esther Brink, was admitted to IMU Room 212-01. Patient/family oriented to hospital policies and general routines including ID bracelet, bed and alarms, visiting hours, pain management, procedures, bathroom and other care routines, personal items, smoking policy, room service/diet, and visiting hours. Information on how to activate the Rapid Response Team has been discussed. Patient/Family are encouraged to report perceived risks to care and to ask questions if they do not understand what they are told or what they should do.
[2022-04-02 20:38] LABS: Troponin I 0.945 ng/mL (0.000-0.034)
--- NOTE | 2022-04-02 21:01 | PM.IMHP ---
H&P: HPI History of Present Illness Date/Time: Patient requires inpatient monitoring with expected length of stay to exceed 2 midnights for management of care. 04/02/22 21:01 Chief Complaint: Shortness of breath Narrative: Ms. Brink is a 56-year-old female who presented emergency room with complaints of shortness of breath. Patient states that she has very high anxiety and she is feeling very anxious today. Patient states she has chronic shortness of breath but she feels more short of breath today. Patient denies any cough. Patient denies any fever chills. Patient states that she wears oxygen at 4 L per nasal cannula at home at all times. Patient denies any chest pain or palpitations Patient states she just feels extremely anxious today. Patient denies any lightheadedness, dizziness, syncopal, or near syncopal episodes. Upon evaluation in emergency room patient was noted to have saturations in the low 90s with her oxygen at 4 L per nasal cannula. Patient did have troponins drawn and they came back mildly elevated. Patient had been evaluated by Cardiology in 2019 for EKG abnormalities and patient underwent echo Doppler and cardiology did not believe that any of patient's EKG changes were secondary to acute coronary syndrome and thought that she was noted to have sinus rhythm with early repolarization. Patient has a known history of end-stage COPD with chronic hypercapnic and hypoxic respiratory failure and uses a trilogy noninvasive ventilator at home at night. Patient states she wears oxygen at 4 L per nasal cannula throughout the day. Patient also has a known history of anxiety disorder, B12 deficiency, GERD and asthma. Review of Systems Review of Systems: A 12 point review of systems was completed patient all pertinent positive and negative per HPI the remainder are unremarkable. [facility] Past Medical History Medical History Abnormal EKG EKG has previously shown ST elevation which appears to be early repolarization. Alcohol abuse Anorexia Anxiety Asthma B12 deficiency anemia Chronic anemia Chronic respiratory failure with hypoxia and hypercapnia On trilogy unit at nighttime. 3 L nasal cannula during the day. COPD with emphysema Gastroesophageal reflux disease Generalized anxiety disorder with panic attacks Pulmonary cachexia due to chronic obstructive pulmonary disease Spontaneous pneumothorax (08/2012) Several pneumothoraces status post VATS procedure and apical blebectomy as well as pleurodesis. Tobacco abuse Quit in 2019 per patient report. Vitamin D deficiency Surgical History Surgical History History of bilateral tubal ligation History of History of hip surgery (07/2019) ORIF of right hip fracture. History of tonsillectomy Status post thoracotomy Left-sided VATS procedure and apical bleb resection with pleurodesis. Family History Family History Father Acute myocardial infarction Father No problems noted. Unknown No problems noted. Mother No problems noted. Sibling No problems noted. Social History Social History Social History: The patient lives with her 19-year-old son in [place]. She has 2 older sons who are no longer at home. 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 She is a former smoker and reportedly quit in 2019. She smoked as many as 2 packs of cigarettes per day prior to quitting. She has significantly cut back in her drinking and now consumes maybe 5 alcoholic beverages a week. She denies illicit substance use. Her son Lino Foote and ex- Neo Brooke are her surrogate decision maker and she wishes to be a full code. Smoking packs per day: 2 Smoking cigarettes per day: 40.0 Years smoked: 45 Smoking pack-y
[2022-04-02] MEDS: MONTELUKAST SODIUM 10 MG TABLET PO (21:46)
[2022-04-03] VITALS (20 sets, daily range): BP systolic 80–115; BP diastolic 47–77; PULSE 58–125; RESP 16–24; TEMP 36.6–37; O2SAT 97–100; BMI 17.2
--- NOTE | 2022-04-03 | ECHO_ITS ---
Patient Info Name: Esther Brink Age: 56 years : 1965 Gender: Female Ht: 60 in Wt: 88 lbs BSA: 1.29 m2 HR: 85 bpm BP: 104 / 77 mmHg Technical Quality: Fair Exam Date: 04/03/2022 10:41 AM Exam Location: [facility] Patient Status: Inpatient Admit Date: 04/02/2022 Staff Ordering Physician: Cora Rodrigues APRN Salmon Troll Fisher: Debi Castro RDCS Attending Provider: Silvio Dhillon MD Referring Physician: Abi BALTAZAR Exam Type: CA echo doppler color flow Study Info Indications - elevated troponins Complete two-dimensional, color flow and Doppler transthoracic echocardiogram is performed. Summary 1. Complete two-dimensional, color flow and Doppler transthoracic echocardiogram is performed. 2. Left ventricular chamber dimension is mildly enlarged. 3. Left ventricular systolic function is mildly reduced, estimated at 40-45%. 4. The left ventricular diastolic function is grade I diastolic dysfunction. 5. The mid inferior wall, mid anterior wall, mid inferoseptal, mid anterolateral wall, basal anteroseptal, and mid inferolateral wall are hypokinetic. 6. The apex, basal inferior wall, basal anterior wall, basal inferoseptal, basal anterolateral wall, mid anteroseptal, and basal inferolateral wall are not scored. 7. The aortic valve is trileaflet. 8. There is mild aortic valve sclerosis. 9. There is mild tricuspid valve regurgitation. 10. No pulmonary hypertension, estimated pulmonary arterial systolic pressure is 32 mmHg. 11. Compared to an echocardiogram done in 2020, there is decline in LV systolic function as described here. Left Ventricle Left ventricular chamber dimension is mildly enlarged. Left ventricular systolic function is mildly reduced, estimated at 40-45%. There is no increased left ventricular wall thickness. The left ventricular diastolic function is grade I diastolic dysfunction. The mid inferior wall, mid anterior wall, mid inferoseptal, mid anterolateral wall, basal anteroseptal, and mid inferolateral wall are hypokinetic. The apex, basal inferior wall, basal anterior wall, basal inferoseptal, basal anterolateral wall, mid anteroseptal, and basal inferolateral wall are not scored. Right Ventricle Right ventricular chamber dimension is normal. Right ventricular systolic function is normal. Left Atria Left atrial chamber dimension is normal. Right Atria Right atrial chamber dimension is normal. Atrial Septum Intact interatrial septum visualized by 2D and color flow imaging. Aortic Valve The aortic valve is trileaflet. There is mild aortic valve sclerosis. There is no aortic valve stenosis. There is no aortic valve regurgitation. Pulmonic Valve The pulmonic valve is normal. There is no pulmonic valve stenosis. There is no pulmonic regurgitation. Mitral Valve The mitral valve has normal leaflets. There is no mitral valve stenosis. There is no mitral valve regurgitation. Tricuspid Valve The tricuspid valve leaflets are normal. There is no significant tricuspid valve stenosis. There is mild tricuspid valve regurgitation. No pulmonary hypertension, estimated pulmonary arterial systolic pressure is 32 mmHg. Pericardium/Pleural The pericardium appears normal. There is no pericardial effusion. Inferior Vena Cava Normal inferior vena cava with >50% collapse upon inspiration consistent with normal right atrial pressure, 10 mmHg. Aorta The aortic root size at the sinus of Valsalva
[2022-04-03 01:45] LABS: Troponin I 0.823 ng/mL (0.000-0.034)
[2022-04-03 05:09] LABS: Hematocrit 32.4 % (37.0-47.0); Hemoglobin 10.9 g/dL (12.0-15.0); Immature Granulocyte Absolute 0.01 K/mm3 (0.00-0.031); Immature Granulocyte Percent A 0.3 % (0-0.5); Lymphocytes Percent Auto 8.4 % (18.3-44.2); Mean Corpuscular HGB Conc 33.6 g/dl (32-36); Mean Corpuscular Hemoglobin 31.1 pg (26-34); Mean Corpuscular Volume 92.3 fl (80-100); Mean Platelet Volume 8.9 fl (7.4-10.4); Monocytes Absolute Auto 0.5 K/mm3 (0.1-0.6); Monocytes Percent Auto 13.7 % (2.6-8.5); Neutrophils Absolute Auto 2.8 K/mm3 (1.3-6.7); Neutrophils Percent Auto 77.6 % (45.5-73.1); Platelet Count Result 436 k/mm3 (150-375); Red Blood Count 3.51 M/mm3 (4.2-5.4); Red Cell Distribution Width 12.3 % (11.5-14.5); White Blood Count 3.6 K/mm3 (4.5-10.0)
[2022-04-03 05:23] LABS: Anion Gap 0 mmol/L (8-16); Blood Urea Nitrogen 4 mg/dL (7-17); Calcium 8.9 mg/dL (8.4-10.2); Carbon Dioxide 38 mmol/L (22-30); Chloride 92 mmol/L (98-107); Cholesterol 218 mg/dL (0-200); Estimated CRCL calculation 140 ml/min; Estimated Glomerular Filt Rate > 60; Glucose 105 mg/dL (65-110); HDL Direct 106 mg/dL; Magnesium 1.9 mg/dL (1.6-2.3); Potassium 3.9 mmol/L (3.4-5.0); Sodium 130 mmol/L (137-145); Triglycerides 66 mg/dL (<150)
[2022-04-03 05:34] LABS: LDL Cholesterol Direct 68 mg/dL
[2022-04-03] MEDS: ALPRAZolam (*CRX) 0.25 MG TABLET PO ×3 (06:43→18:25)
[2022-04-03] MEDS: ALBUTEROL SULFATE NEB 2.5 MG/3 ML INH INHALATION ×3 (08:37→21:22)
[2022-04-03] MEDS: FLUTICASONE/UMECLIDIN/VILANTER 100-62.5-25 MCG ELLIPTA 1 PUFF INHALATION (08:37)
[2022-04-03] MEDS: ALBUTEROL SULFATE NEB 2.5 MG/0.5 ML INH ×2 (08:37→15:44)
[2022-04-03] MEDS: ESCITALOPRAM OXALATE 10 MG TABLET 30 MG PO (09:01)
[2022-04-03] MEDS: POTASSIUM CHLORIDE 10 MEQ TABLET.ER PO (09:01)
[2022-04-03] MEDS: CYANOCOBALAMIN 1,000 MCG TABLET 1000 MCG PO (09:01)
[2022-04-03] MEDS: ROFLUMILAST 500 MCG TABLET PO (09:01)
[2022-04-03] MEDS: ASPIRIN 81 MG ENTERIC TABLET PO (09:01)
[2022-04-03] MEDS: FOLIC ACID 0.4 MG TABLET PO (09:01)
--- NOTE | 2022-04-03 09:57 | PM.CNCAR ---
Assessment and Plan Assessment and plan (1) Elevated troponin: Code(s): R77.8 - Other specified abnormalities of plasma proteins Status: Acute (2) Pulmonary cachexia due to chronic obstructive pulmonary disease: Code(s): J44.9 - Chronic obstructive pulmonary disease, unspecified; R64 - Cachexia Status: Acute (3) Acute on chronic respiratory failure with hypoxia and hypercapnia: Code(s): J96.21 - Acute and chronic respiratory failure with hypoxia; J96.22 - Acute and chronic respiratory failure with hypercapnia Status: Acute (4) Acute exacerbation of chronic obstructive pulmonary disease: Code(s): J44.1 - Chronic obstructive pulmonary disease with (acute) exacerbation Status: Acute Additional Plan -elevated troponins -acute on chronic COPD exacerbation, -acute on chronic hypoxic and per cap neck respiratory failure. -history of spontaneous pneumothorax with severe COPD. -* previous history of tobacco use. -severe anxiety This is 56-year-old patient with history of chronic hypoxemic and hypercapnic respiratory failure on home O2, previous tobacco use, severe anxiety, severely cachectic who presents here to the hospital with increasing anxiety and shortness of breath. Denies chest pain. No active ischemia on EKG. She does have elevated troponins level. My concern about this patient is that she is very cachectic with an increased risk of invasive ischemic evaluation. -At this time will obtain an echocardiogram and assess. If there is no significant wall motion abnormalities will favor medical management. -continue aspirin. -currently patient receiving Lovenox which we will continue today pending the echocardiogram. History of Present Illness History of Present Illness Consult date/time: 04/03/22 09:57 Requesting physician: Jyoti Srinivasan MD Consult reason: Other (Elevated troponins) Reason For Visit: elevated trop, erik Narrative: This is 56-year-old female with history of severe anxiety COPD, on home oxygen 4 liters/minute nasal cannula and also previous history of spontaneous pneumothorax status post surgery, who presents to the hospital with increasing shortness of breath. She states that she has more anxiety recently and complains of increasing shortness of breath.. Denies chest pain, palpitations, dizziness, syncope, lower extremity edema. Patient is very thin, cachectic Troponin 0.054, 0.8, 0.9, 0.8, chest x-ray to review the nose was still shows severe emphysema and postoperative lung changes EKG review in his vessels shows sinus tachycardia, possible old lateral infarct. 07/02/2020: Echocardiogram Summary ? 1. Complete two-dimensional, color flow and Doppler transthoracic echocardiogram is performed. ? 2. Left ventricular chamber dimension is normal. ? 3. Left ventricular systolic function is normal, estimated at 65-70%. ? 4. There is mild aortic valve sclerosis. ? 5. The IVC is dilated. Review of Systems Constitutional: Constitutional: Denies chills, Reports fatigue, Denies fever(s), Denies poor appetite and Reports weakness Eyes: Eyes: Denies eye discharge, Denies loss of vision, Denies eye pain and Denies photophobia ENT: Denies dizziness, Denies epistaxis, Denies nasal congestion and Denies sore throat Cardiovascular: Cardiovascular: Denies chest pain, Denies syncope, Denies pedal edema, Denies leg edema, Denies palpitations, Reports dyspnea and Reports dyspnea on exertion Respiratory: Respiratory: Reports cough, Reports dyspnea, Reports dyspnea on exertion and Reports wheezing Gastrointestinal: Gastrointestinal: Denies abdominal pain, Denies diarrhea, Denies nausea and Denies vomiting Genitourinary: Genitourinary: Denies hematuria, Denies genital lesions and Denies dysuria Musculoskeletal: Musculoskeletal: Denies arthralgias, Denies joint swelling and Denies numbness Integumentary/Breasts: Skin/Breast: Denies pruritus and Denies rash Neurologic: Denies dizz
[2022-04-03] MEDS: ENOXAPARIN 40 MG/0.4 ML SYRINGE SUB-Q ×2 (10:24→21:19)
--- NOTE | 2022-04-03 13:52 | PCNSR ---
On 04/03/22, the student, Felicia Patino, provided care and completed [facility] documentation on this patient. I have reviewed the student's documentation and agree with the findings.
--- NOTE | 2022-04-03 16:42 | PM.IMPN ---
Progress Note: A&P Assessment and Plan (1) Elevated troponin: Code(s): R77.8 - Other specified abnormalities of plasma proteins Status: Acute Assessment and Plan: Patient has no significant EKG changes. Patient does have troponins that are trending up. Patient denies any chest pain, but states she does feel more short of breath than normal. Cardiology has been consult and appreciate further recommendations. Will have echo Doppler performed in continue to trend troponins. Patient has been placed on Lovenox 1 milligram/kilogram b.i.d.. Will start patient on a baby aspirin daily and have lipid panel checked in the a.m.. 04/03/2022 interval history: patient with history end-stage COPD presented with emergency depart with complains persistent shortness of patient is found to have elevated tropes seen by Cardiology suspect ischemic event and recommending cardiac catheterization to further evaluate, which is scheduled for tomorrow, continue present management will monitor patient overnight patient remains clinically stable. (2) COPD (chronic obstructive pulmonary disease): Code(s): J44.9 - Chronic obstructive pulmonary disease, unspecified Status: Acute Assessment and Plan: Patient's oxygenation is at baseline. Patient is not wheezing and does not appear to be in an exacerbation of her COPD. Will continue with patient's home medications and monitor. (3) Anxiety: Code(s): F41.9 - Anxiety disorder, unspecified Status: Acute Assessment and Plan: Will continue patient's home antianxiety medications and adjust if needed. Subjective Date/time seen: 04/03/22 16:42 Shortness of breath Narrative: Ms. Brink is a 56-year-old female who presented emergency room with complaints of shortness of breath.? Patient states that she has very high anxiety and she is feeling very anxious today.? Patient states she has chronic shortness of breath but she feels more short of breath today.? Patient denies any cough.? Patient denies any fever chills.? Patient states that she wears oxygen at 4 L per nasal cannula at home at all times.? Patient denies any chest pain or palpitations? Patient states she just feels extremely anxious today.? Patient denies any lightheadedness, dizziness, syncopal, or near syncopal episodes.? Upon evaluation in emergency room patient was noted to have saturations in the low 90s with her oxygen at 4 L per nasal cannula.? Patient did have troponins drawn and they came back mildly elevated.? Patient had been evaluated by Cardiology in 2019 for EKG abnormalities and patient underwent echo Doppler and cardiology did not believe that any of patient's EKG changes were secondary to acute coronary syndrome and thought that she was noted to have sinus rhythm with early repolarization. Patient has a known history of end-stage COPD with chronic hypercapnic and hypoxic respiratory failure and uses a trilogy noninvasive ventilator at home at night.? Patient states she wears oxygen at 4 L per nasal cannula throughout the day.? Patient also has a known history of anxiety disorder, B12 deficiency, GERD and asthma. 04/03/2022 interval history: patient with history end-stage COPD presented with emergency depart with complains persistent shortness of patient is found to have elevated tropes seen by Cardiology suspect ischemic event and recommending cardiac catheterization to further evaluate, which is scheduled for tomorrow, continue present management will monitor patient overnight patient remains clinically stable. Review of Systems Constitutional: Constitutional: Denies chills, Reports fatigue, Denies fever(s), Denies poor appetite and Reports weakness Exam Narrative: appears malnourished and chronically ill Patient is comfortable, NAD HEENT: eyes are clear and none icteric LUNGS: normal respiratory effort ABD: not distended. Lower extremities: no edema SKIN: nonjaundiced Neuro: grossly intact.
[2022-04-03] MEDS: MIRTAZAPINE 30 MG TABLET PO (18:24)
[2022-04-03] MEDS: SODIUM CHLORIDE 0.9% IV 250 ML 999 ML IV CONT (19:00)
[2022-04-03] MEDS: MONTELUKAST SODIUM 10 MG TABLET PO (21:19)
[2022-04-04] VITALS (37 sets, daily range): BP systolic 89–116; BP diastolic 52–75; PULSE 83–122; RESP 16–28; TEMP 36.3–37.7; O2SAT 97–100
[2022-04-04] MEDS: ALBUTEROL SULFATE NEB 2.5 MG/3 ML INH INHALATION ×4 (07:46→21:11)
--- NOTE | 2022-04-04 08:59 | WPDMODSED ---
Moderate Sedation Note-Pt Data Patient Data Diagnosis: Elevated troponin Severe COPD Present Complaint: Anxiety Procedure to be performed/Plan: Coronary angiogram Allergies Allergy/AdvReac Type Severity Reaction Status Date / Time No Known Allergies Allergy Verified 04/02/22 13:16 Home Medications Medication Instructions Recorded Confirmed Type escitalopram oxalate 10 mg tablet 30 mg PO DAILY 11/15/19 04/02/22 History mirtazapine 30 mg tablet 30 mg PO QPM 10/22/21 04/02/22 History montelukast 10 mg tablet 10 mg PO HS 10/22/21 04/02/22 History cyanocobalamin (vitamin B-12) 1,000 mcg PO QAM #30 tabs 10/26/21 04/02/22 Rx 1,000 mcg tablet (Vitamin B-12) folic acid 400 mcg tablet 0.4 mg PO DAILY #30 tabs 10/26/21 04/02/22 Rx albuterol sulfate 2.5 mg/3 mL 2.5 mg (3 mL) inhalation QID PRN 11/06/21 04/02/22 Rx (0.083 %) solution for nebulization shortness of breath or wheezing #360 mL albuterol sulfate 90 mcg/actuation 2 puff inhalation QID PRN 11/22/21 04/02/22 Rx aerosol inhaler shortness of breath or wheezing #8.5 grams fluticasone fur. 100 mcg-umeclid 1 inh inhalation DAILY #60 ea 11/22/21 04/02/22 Rx 62.5 mcg-vilant 25 mcg inhalat.powder (Trelegy Ellipta) Daliresp 500 mcg tablet 500 mcg PO DAILY #30 tabs 12/11/21 04/02/22 Rx (roflumilast) potassium chloride 10 mEq 10 meq PO DAILY #7 tabs 03/22/22 04/02/22 Rx tablet,extended release alprazolam 0.25 mg tablet (Xanax) 0.25 mg PO TID PRN anxiety #6 tabs 03/29/22 04/02/22 Rx Current Medications: Active Medications Albuterol (Albuterol Sulfate (*Sp) Aerosol 1 Puff) 2 puff INHALATION QID PRN PRN Reason: shortness of breath or wheezing Albuterol (Albuterol Sulfate Neb 2.5 Mg/3 Ml Inh) 2.5 mg INHALATION QIDRT DAILY Last Admin: 04/04/22 07:46 Dose: 2.5 mg Alprazolam (Alprazolam (*Crx) 0.25 Mg Tablet) 0.25 mg PO TID PRN PRN Reason: anxiety Last Admin: 04/03/22 18:25 Dose: 0.25 mg Aspirin (Aspirin 81 Mg Enteric Tablet) 81 mg PO QAM [facility] Last Admin: 04/03/22 09:01 Dose: 81 mg Cyanocobalamin (Cyanocobalamin 1,000 Mcg Tablet) 1,000 mcg PO QAM [facility] Last Admin: 04/03/22 09:01 Dose: 1,000 mcg Escitalopram Oxalate (Escitalopram Oxalate 10 Mg Tablet) 30 mg PO DAILY [facility] Last Admin: 04/03/22 09:01 Dose: 30 mg Fluticasone/Umeclidinium/Vilanterol (Fluticasone/Umeclidin/Vilanter 100-62.5-25 Mcg Ellipta) 1 puff INHALATION DAILY [facility] Last Admin: 04/03/22 08:37 Dose: 1 puff Folic Acid (Folic Acid 0.4 Mg Tablet) 0.4 mg PO DAILY [facility] Last Admin: 04/03/22 09:01 Dose: 0.4 mg Mirtazapine (Mirtazapine 30 Mg Tablet) 30 mg PO QPM [facility] Last Admin: 04/03/22 18:24 Dose: 30 mg Montelukast Sodium (Montelukast Sodium 10 Mg Tablet) 10 mg PO HS [facility] Last Admin: 04/03/22 21:19 Dose: 10 mg Perflutren Lipid Microsphere (Perflutren Lipid Microspheres 1.5 Ml Vial Diluted To 10 Ml Total Volume) 0 ml IV PUSH ONCE PRN; Protocol PRN Reason: adequate visualization Potassium Chloride (Potassium Chloride 10 Meq Tablet.Er) 10 meq PO DAILY [facility] Last Admin: 04/03/22 09:01 Dose: 10 meq Roflumilast (Roflumilast 500 Mcg Tablet) 500 mcg PO QAM [facility] Last Admin: 04/03/22 09:01 Dose: 500 mcg Sedation/Anesthesia: No previous sedation/anesthesia problems (including family history). [facility] Past Medical History Medical History Abnormal EKG EKG has previously shown ST elevation which appears to be early repolarization. Alcohol abuse Anorexia Anxiety Asthma B12 deficiency anemia Chronic anemia Chronic respiratory failure with hypoxia and hypercapnia On trilogy unit at nighttime. 3 L nasal cannula during the day. COPD with emphysema Gastroesophageal reflux disease Generalized anxiety disorder with panic attacks Pulmonary cachexia due to chronic obstructive pulmonary disease Spontaneous pneumothorax (08/2012) Several pneumothoraces status post VATS procedure and apical blebectomy as well
[2022-04-04] MEDS: FLUTICASONE/UMECLIDIN/VILANTER 100-62.5-25 MCG ELLIPTA 1 PUFF INHALATION (09:00)
--- NOTE | 2022-04-04 10:38 | WPDCARDPROC ---
Cardiac Cath Procedure Note Date of procedure:: 04/04/22 Performing physician:: Issa Ramos MD Indication:: Elevated troponin Brief clinical history:: this is a 56-year-old woman with severe COPD who entered the hospital being short of breath. Troponin levels were elevated prompting consultation and angiography has been recommended by my partner who saw the patient yesterday. Procedure Procedure performed:: Coronary angiogram Sedation/Medication given:: no sedation Access site:: right femoral artery Estimated blood loss:: 25 CC Procedure note:: patient was brought to the cardiac catheterization lab in the postabsorptive state the right femoral triangle was prepared and draped in the usual fashion. Because of problematic hypotension following sedation yesterday I elected to perform the procedure without sedation as her starting blood pressure was less than 100 mmHg. Following puncturing the femoral artery using the modified Seldinger technique the 5 Maltese vascular sheath was placed and then coronary angiography was carried out. I used a 5 Maltese FL4 catheter to engage and inject the left coronary artery in multiple projections I then used a 5 Maltese JR4 catheter followed by a 5 Maltese WRP catheter to engage inject the right coronary artery in orthogonal projections. Following this the case was terminated. The patient is very cachectic and the sheath will be removed with direct manual compression. She left the cathode washer in stable condition there were no signs of a groin hematoma nor any evidence of any procedural complication. Findings:: Hemodynamics: Central aortic pressure is 108/60 left ventricle 108/0 end-diastolic pressure is 16 there is systolic gradient on pullback across the aortic valve. The left main coronary artery is large in caliber and nicely patent the left anterior descending is a [id number] caliber vessel extending down to around the apex. There is no atherosclerosis seen in the LAD. The circumflex is a moderate caliber artery giving rise to the marginal branches. The circumflex and its branches are angiographically free of disease. Right coronary artery is large in caliber and dominant to the posterior circulation. The right coronary has an unusual early bifurcation with a separate RV branch taking off very proximally which is unusually large. This branch as well as the trunk of the RCA, the RPDA and RPL are angiographically free of disease. Conclusion:: 1. right coronary dominant circulation with no angiographically evident coronary artery disease 2. large RV branch with an unusual high bifurcation as described above 3. troponinemia appears to be on the basis of hypoxemia and severe chronic lung disease. Issa Ramos [facility]
[2022-04-04] MEDS: ASPIRIN 81 MG ENTERIC TABLET PO (13:10)
[2022-04-04] MEDS: POTASSIUM CHLORIDE 10 MEQ TABLET.ER PO (13:10)
[2022-04-04] MEDS: CYANOCOBALAMIN 1,000 MCG TABLET 1000 MCG PO (13:10)
[2022-04-04] MEDS: ROFLUMILAST 500 MCG TABLET PO (13:10)
[2022-04-04] MEDS: ESCITALOPRAM OXALATE 10 MG TABLET 30 MG PO (13:10)
[2022-04-04] MEDS: FOLIC ACID 0.4 MG TABLET PO (13:10)
--- NOTE | 2022-04-04 13:14 | PCPTNOTE ---
Patient has bed rest orders in after having cardiac cath. Will see patient bed rest orders are removed.
--- NOTE | 2022-04-04 17:34 | PM.IMPN ---
Progress Note: A&P Assessment and Plan (1) Elevated troponin: Code(s): R77.8 - Other specified abnormalities of plasma proteins Status: Acute Assessment and Plan: Patient has no significant EKG changes. Patient does have troponins that are trending up. Patient denies any chest pain, but states she does feel more short of breath than normal. Cardiology has been consult and appreciate further recommendations. Will have echo Doppler performed in continue to trend troponins. Patient has been placed on Lovenox 1 milligram/kilogram b.i.d.. Will start patient on a baby aspirin daily and have lipid panel checked in the a.m.. 04/03/2022 interval history: patient with history end-stage COPD presented with emergency depart with complains persistent shortness of patient is found to have elevated tropes seen by Cardiology suspect ischemic event and recommending cardiac catheterization to further evaluate, which is scheduled for tomorrow, continue present management will monitor patient overnight patient remains clinically stable. 04/04/2022 interval history: patient with history end-stage COPD presented with emergency depart with complains persistent shortness of patient is found to have elevated tropes seen by Cardiology suspect ischemic event and recommending cardiac catheterization to further evaluate, patient had a cardiac catheterization today is essentially normal without any ischemic finding, director statistical programming suspect elevated tropes most likely secondary to end-stage COPD and shortness of breath, continue present management will monitor patient overnight patient remains clinically stable. (2) COPD (chronic obstructive pulmonary disease): Code(s): J44.9 - Chronic obstructive pulmonary disease, unspecified Status: Acute Assessment and Plan: Patient's oxygenation is at baseline. Patient is not wheezing and does not appear to be in an exacerbation of her COPD. Will continue with patient's home medications and monitor. (3) Anxiety: Code(s): F41.9 - Anxiety disorder, unspecified Status: Acute Assessment and Plan: Will continue patient's home antianxiety medications and adjust if needed. Subjective Date/time seen: 04/04/22 17:34 04/04/2022 interval history: patient with history end-stage COPD presented with emergency depart with complains persistent shortness of patient is found to have elevated tropes seen by Cardiology suspect ischemic event and recommending cardiac catheterization to further evaluate, patient had a cardiac catheterization today is essentially normal without any ischemic finding, director statistical programming suspect elevated tropes most likely secondary to end-stage COPD and shortness of breath, continue present management will monitor patient overnight patient remains clinically stable. Review of Systems Constitutional: Constitutional: Denies chills, Reports fatigue, Denies fever(s), Denies poor appetite and Reports weakness Exam Narrative: appears malnourished and chronically ill Patient is comfortable, NAD HEENT: eyes are clear and none icteric LUNGS: normal respiratory effort ABD: not distended. Lower extremities: no edema SKIN: nonjaundiced Neuro: grossly intact. Objective Data Vital Signs Vital Signs: Vital Signs - 24 hr 04/03/22 18:00 04/03/22 18:42 04/03/22 19:19 Temperature Pulse Rate 87 91 125 H Respiratory Rate 16 20 Blood Pressure 82/47 L 115/71 Pulse Oximetry 98 Oxygen Delivery Oxygen Flow Rate 04/03/22 20:00 04/03/22 20:45 04/03/22 20:00 Temperature 98.2 F Pulse Rate 88 87 Respiratory Rate 24 H Blood Pressure 80/54 L Pulse Oximetry 100 100 Oxygen Delivery Nasal Cannula Oxygen Flow Rate 4 04/03/22 21:23 04/03/22 21:28 04/03/22 21:30 Temperature Pulse Rate 86 86 78 Respiratory Rate Blood Pressure Pulse Oximetry 99 Oxygen Delivery Nasal Cannula Oxygen Flow Rate 4 04/03/22 22:00 04/04/22 00:
[2022-04-04] MEDS: hydrOXYzine HCL 12.5 MG TABLET PO (17:58)
[2022-04-04] MEDS: MIRTAZAPINE 30 MG TABLET PO (17:58)
[2022-04-04] MEDS: MONTELUKAST SODIUM 10 MG TABLET PO (20:08)
[2022-04-05] VITALS (18 sets, daily range): BP systolic 90–105; BP diastolic 51–67; PULSE 78–102; RESP 16–18; TEMP 36.3–37.2; O2SAT 90–100
--- NOTE | 2022-04-05 00:45 | PC.NURSE ---
This patient, Esther Brink, was received from [ IMU] on 04/05/22 at 0045. Patient/family oriented to unit policies and routines
--- NOTE | 2022-04-05 00:48 | PC.NURSE ---
This patient, Esther Brink, was transferred to [[id number]] on 04/05/22 at 0045. Personal belongings sent with patient. Report given to [RAHUL Geiger]. Appropriate documentation sent with patient.
[2022-04-05] MEDS: ALBUTEROL SULFATE NEB 2.5 MG/3 ML INH INHALATION ×2 (08:07→19:54)
[2022-04-05] MEDS: FLUTICASONE/UMECLIDIN/VILANTER 100-62.5-25 MCG ELLIPTA 1 PUFF INHALATION (08:16)
[2022-04-05 08:43] LABS: Hematocrit 34.9 % (37.0-47.0); Hemoglobin 11.2 g/dL (12.0-15.0); Mean Corpuscular HGB Conc 32.1 g/dl (32-36); Mean Corpuscular Hemoglobin 31.1 pg (26-34); Mean Corpuscular Volume 96.9 fl (80-100); Mean Platelet Volume 8.7 fl (7.4-10.4); Platelet Count Result 373 k/mm3 (150-375); Red Cell Distribution Width 12.6 % (11.5-14.5); White Blood Count 7.5 K/mm3 (4.5-10.0)
[2022-04-05] MEDS: ALPRAZolam (*CRX) 0.25 MG TABLET PO ×2 (09:14→20:53)
[2022-04-05] MEDS: FOLIC ACID 0.4 MG TABLET PO (09:14)
[2022-04-05] MEDS: ROFLUMILAST 500 MCG TABLET PO (09:15)
[2022-04-05] MEDS: ESCITALOPRAM OXALATE 10 MG TABLET 30 MG PO (09:15)
[2022-04-05] MEDS: POTASSIUM CHLORIDE 10 MEQ TABLET.ER PO (09:15)
[2022-04-05] MEDS: CYANOCOBALAMIN 1,000 MCG TABLET 1000 MCG PO (09:15)
[2022-04-05] MEDS: ASPIRIN 81 MG ENTERIC TABLET PO (09:15)
[2022-04-05 09:16] LABS: Calcium 8.5 mg/dL (8.4-10.2); Carbon Dioxide > 40 mmol/L (22-30); Chloride 95 mmol/L (98-107); Estimated CRCL calculation 63 ml/min; Estimated Glomerular Filt Rate > 60; Glucose 128 mg/dL (65-110); Magnesium 1.7 mg/dL (1.6-2.3); Potassium 3.3 mmol/L (3.4-5.0); Sodium 135 mmol/L (137-145)
[2022-04-05 10:03] LABS: Blood Urea Nitrogen < 2 mg/dL (7-17)
--- NOTE | 2022-04-05 10:35 | PM.PNCARD ---
Progress Note: A&P Assessment and Plan (1) Elevated troponin: Code(s): R77.8 - Other specified abnormalities of plasma proteins Status: Acute Assessment and Plan: Type 2 infarction secondary to acute on chronic hypoxic respiratory failure not secondary to acute coronary syndrome and/or plaque rupture. Normal coronary anatomy on left heart catheterization. Aspirin 81 mg daily for now. (2) Nonischemic cardiomyopathy: Code(s): I42.8 - Other cardiomyopathies Status: Acute Assessment and Plan: New diagnosis moderate LV dysfunction EF 40-45% with inferior, anterior, inferoseptal and anterolateral wall motion abnormalities due to nonischemic etiology with normal coronary anatomy left heart catheterization. Optimize guideline directed medical therapy as tolerated. Due to relative hypotension patient not currently on beta-shereen or ARB. Will optimize therapy initiated as BP permits likely as an outpatient. Follow-up with Dr. García in the office [facility] in 1 month. Discussed at length the patient verbalized understanding and agreed. Patient is not in decompensated heart failure. Patient is otherwise stable from a cardiac perspective and asymptomatic. No post catheterization arterial access complications. Post cardiac catheterization activity precautions to follow-up for the next week. Lifting over 10 lbs, sexual or strenuous activity, swimming or submersion in a bath for [address] beginning tomorrow. Monitor for bleeding. Notify our office or return to pursue department with swelling, worsening pain, fevers, chills, bleeding, leg pain or discoloration or significant swelling. Will sign off. Disposition per hospitalist service. Please do not hesitate to contact us with any additional questions or concerns. (3) Acute on chronic respiratory failure with hypoxia and hypercapnia: Code(s): J96.21 - Acute and chronic respiratory failure with hypoxia; J96.22 - Acute and chronic respiratory failure with hypercapnia Status: Acute Assessment and Plan: Improving. Continue supportive medical therapy O2 supplementation per primary service. Disposition per hospitalist service. (4) Pulmonary cachexia due to chronic obstructive pulmonary disease: Code(s): J44.9 - Chronic obstructive pulmonary disease, unspecified; R64 - Cachexia Status: Acute Assessment and Plan: As above, secondary to chronic hypoxic and hypercapnic respiratory failure Subjective Date/time seen: Date of service: 04/05/22 10:35 Follow-up for new diagnosis cardiomyopathy status post left heart catheterization Patient states she feels well this morning. Ambulating without difficulty. Denies dizziness, chest pain. Shortness of breath stable. No new issues overnight. Notes mild tenderness at right groin cath site no bleeding or leg pain. No fevers or chills. Review of Systems Review of Systems: Right groin tenderness Constitutional: Constitutional: Denies chills, Reports fatigue, Denies fever(s), Denies poor appetite and Reports weakness Eyes: Eyes: Denies eye discharge, Denies loss of vision, Denies eye pain and Denies photophobia ENT: Denies dizziness, Denies epistaxis, Denies nasal congestion and Denies sore throat Cardiovascular: Cardiovascular: Denies chest pain, Denies syncope, Denies pedal edema, Denies leg edema, Denies palpitations, Reports dyspnea and Reports dyspnea on exertion Respiratory: Respiratory: Reports cough, Reports dyspnea, Reports dyspnea on exertion and Denies wheezing Gastrointestinal: Gastrointestinal: Denies abdominal pain, Denies diarrhea, Denies nausea and Denies vomiting Genitourinary: Genitourinary: Denies hematuria, Denies genital lesions and Denies dysuria Musculoskeletal: Musculoskeletal: Denies arthralgias, Denies joint swelling and Denies numbness Integumentary/Breasts: Skin/Breast: Denies pruritus and Denies rash Neurologic: Denies dizziness, Denie
--- NOTE | 2022-04-05 11:14 | PM.IMPN ---
Progress Note: A&P Assessment and Plan (1) Elevated troponin: Code(s): R77.8 - Other specified abnormalities of plasma proteins Status: Acute Assessment and Plan: Patient has no significant EKG changes. Patient does have troponins that are trending up. Patient denies any chest pain, but states she does feel more short of breath than normal. Cardiology has been consult and appreciate further recommendations. Will have echo Doppler performed in continue to trend troponins. Patient has been placed on Lovenox 1 milligram/kilogram b.i.d.. Will start patient on a baby aspirin daily and have lipid panel checked in the a.m.. 04/03/2022 interval history: patient with history end-stage COPD presented with emergency depart with complains persistent shortness of patient is found to have elevated tropes seen by Cardiology suspect ischemic event and recommending cardiac catheterization to further evaluate, which is scheduled for tomorrow, continue present management will monitor patient overnight patient remains clinically stable. 04/04/2022 interval history: patient with history end-stage COPD presented with emergency depart with complains persistent shortness of patient is found to have elevated tropes seen by Cardiology suspect ischemic event and recommending cardiac catheterization to further evaluate, patient had a cardiac catheterization today is essentially normal without any ischemic finding, credit verifier suspect elevated tropes most likely secondary to end-stage COPD and shortness of breath, continue present management will monitor patient overnight patient remains clinically stable. 04/05/2022 interval history: patient with history end-stage COPD presented with emergency depart with complains persistent shortness of patient is found to have elevated tropes seen by Cardiology suspect ischemic event and recommending cardiac catheterization to further evaluate, patient had a cardiac catheterization on 04/04 was essentially normal without any ischemic finding, credit verifier suspect elevated tropes most likely secondary to end-stage COPD and shortness of breath, will continue present management will monitor patient overnight patient remains clinically stable. patient is waiting for placement to a nursing as patient family is unable to take care of her. (2) COPD (chronic obstructive pulmonary disease): Code(s): J44.9 - Chronic obstructive pulmonary disease, unspecified Status: Acute Assessment and Plan: Patient's oxygenation is at baseline. Patient is not wheezing and does not appear to be in an exacerbation of her COPD. Will continue with patient's home medications and monitor. (3) Anxiety: Code(s): F41.9 - Anxiety disorder, unspecified Status: Acute Assessment and Plan: Will continue patient's home antianxiety medications and adjust if needed. Subjective Date/time seen: 04/05/22 11:14 04/05/2022 interval history: patient with history end-stage COPD presented with emergency depart with complains persistent shortness of patient is found to have elevated tropes seen by Cardiology suspect ischemic event and recommending cardiac catheterization to further evaluate, patient had a cardiac catheterization on 04/04 was essentially normal without any ischemic finding, credit verifier suspect elevated tropes most likely secondary to end-stage COPD and shortness of breath, will continue present management will monitor patient overnight patient remains clinically stable. patient is waiting for placement to a nursing as patient family is unable to take care of her. Review of Systems Constitutional: Constitutional: Denies chills, Reports fatigue, Denies fever(s), Denies poor appetite and Reports weakness Exam Narrative: appears malnourished and chronically ill Patient is comfortable, NAD HEENT: eyes are clear and none icteric LUNGS: normal respiratory effort ABD: not distended. Lower extremities
[2022-04-05] MEDS: POTASSIUM CHLORIDE 20 MEQ PACKET (FOR LIQUID) 40 MEQ PO (11:39)
[2022-04-05] MEDS: ALBUTEROL SULFATE NEB 2.5 MG/0.5 ML INH ×2 (12:47→16:57)
[2022-04-05] MEDS: MIRTAZAPINE 30 MG TABLET PO (17:10)
[2022-04-05] MEDS: hydrOXYzine HCL 12.5 MG TABLET PO (17:10)
[2022-04-05] MEDS: MONTELUKAST SODIUM 10 MG TABLET PO (20:53)
[2022-04-06] VITALS (11 sets, daily range): BP systolic 94–108; BP diastolic 55–67; PULSE 79–104; RESP 18; TEMP 36.4–36.7; O2SAT 98–100
[2022-04-06] MEDS: ALPRAZolam (*CRX) 0.25 MG TABLET PO ×3 (04:19→18:38)
[2022-04-06 05:12] LABS: Hematocrit 33.3 % (37.0-47.0); Hemoglobin 10.3 g/dL (12.0-15.0); Mean Corpuscular HGB Conc 30.9 g/dl (32-36); Mean Corpuscular Volume 100.3 fl (80-100); Mean Platelet Volume 8.6 fl (7.4-10.4); Platelet Count Result 327 k/mm3 (150-375); Red Blood Count 3.32 M/mm3 (4.2-5.4); Red Cell Distribution Width 12.5 % (11.5-14.5); White Blood Count 4.9 K/mm3 (4.5-10.0)
[2022-04-06 05:35] LABS: Anion Gap -2 mmol/L (8-16); Blood Urea Nitrogen 3 mg/dL (7-17); Calcium 8.5 mg/dL (8.4-10.2); Carbon Dioxide 38 mmol/L (22-30); Chloride 99 mmol/L (98-107); Estimated CRCL calculation 65 ml/min; Estimated Glomerular Filt Rate > 60; Glucose 159 mg/dL (65-110); Potassium 3.6 mmol/L (3.4-5.0); Sodium 135 mmol/L (137-145)
[2022-04-06] MEDS: ALBUTEROL SULFATE NEB 2.5 MG/0.5 ML INH ×3 (08:18→16:14)
[2022-04-06] MEDS: ESCITALOPRAM OXALATE 10 MG TABLET 30 MG PO (08:42)
[2022-04-06] MEDS: CYANOCOBALAMIN 1,000 MCG TABLET 1000 MCG PO (08:42)
[2022-04-06] MEDS: ROFLUMILAST 500 MCG TABLET PO (08:42)
[2022-04-06] MEDS: POTASSIUM CHLORIDE 10 MEQ TABLET.ER PO (08:42)
[2022-04-06] MEDS: hydrOXYzine HCL 12.5 MG TABLET PO (08:42)
[2022-04-06] MEDS: FOLIC ACID 0.4 MG TABLET PO (08:43)
[2022-04-06] MEDS: ASPIRIN 81 MG ENTERIC TABLET PO (08:43)
[2022-04-06] MEDS: FLUTICASONE/UMECLIDIN/VILANTER 100-62.5-25 MCG ELLIPTA 1 PUFF INHALATION (11:45)
--- NOTE | 2022-04-06 14:12 | PM.DS ---
DS: Admitting Diagnosis Discharge Date 04/06/22 Admitting Diagnosis Shortness of breath DS: Discharge Diagnosis Discharge Diagnosis (1) Elevated troponin: Code(s): R77.8 - Other specified abnormalities of plasma proteins Status: Acute (2) COPD (chronic obstructive pulmonary disease): Code(s): J44.9 - Chronic obstructive pulmonary disease, unspecified Status: Acute (3) Anxiety: Code(s): F41.9 - Anxiety disorder, unspecified Status: Acute (4) Chronic respiratory failure with hypoxia and hypercapnia: Code(s): J96.11 - Chronic respiratory failure with hypoxia; J96.12 - Chronic respiratory failure with hypercapnia Status: Acute (5) Nonischemic cardiomyopathy: Code(s): I42.8 - Other cardiomyopathies Status: Acute (6) Pulmonary cachexia due to COPD: Code(s): J44.9 - Chronic obstructive pulmonary disease, unspecified; R64 - Cachexia Status: Acute DS: Summary Hospital Course Reason for hospitalization: 56yo female with COPD and chronic respiratory failure here for shortness of breath. Please see H&P for details Hospital Course: Patient presents with shortness of breath. Troponin elevated on admission and climbed to 0.95. No significant EKG changes. CXR clear of acute findings. Patient denies any chest pain. Cardiology was consulted and appreciate their input. Echo Doppler showing EF 40-45% and Grade I diastolic dysfunction and hypokinetic tafoya. Patient had a cardiac catheterization that was essentially normal without any ischemic finding. Please see report for details. Hostel Parent suspect elevated tropes most likely secondary to end-stage COPD and shortness of breath. We were unable to give her betablocker or ROB inhibitors given her soft blood pressure. Her home antianxiety medications were continued. Patient's oxygenation is at baseline. Patient was not wheezing and did not appear to be in an exacerbation of her COPD. Patient family is unable to take care of her so other arrangements were made. Patient has been accepted for SNF placement. She overall did well and was able to be discharged on 04/06/22 Status at Discharge Cognitive/behavioral status at discharge: Stable Time Spent with Patient Time attestation: Total time spent providing and/or coordinating discharge services: 35 minutes Time spent: Greater than 30 minutes Exam Narrative: AF 98.0 94/55 99 18 98% 2L Gen - thin female in NARD lying semi-recumbent in bed Chest - distant BS with a few basilar rhonchi CV - RRR S1/S2 Abd -soft, scaphoid Ext - No pedal edema Psych - Nml mood and affect Skin - Warm and dry DS: Data Data Completed and Pending Labs on day of discharge: Labs from last 24 hours 04/06/22 04/06/22 04:45 04:45 WBC 4.9 RBC 3.32 L Hgb 10.3 L Hct 33.3 L MCV 100.3 H MCH 31.0 MCHC 30.9 L RDW 12.5 Plt Count 327 MPV 8.6 Sodium 135 L Potassium 3.6 Chloride 99 Carbon Dioxide 38 H Anion Gap -2 L BUN 3 L Creatinine 0.40 L Estim Creat Clear Calc 65 Estimated GFR > 60 Glucose 159 H Calcium 8.5 Discharge Plan Discharge Attending physician on discharge: Jose C Guzman Consulting providers: Sury Mcconnell Discharging Clinician: Jose C Guzman Anticipated Discharge Date/Time: 04/06/22 14:26 Patient Disposition: SNF Activity: as tolerated Diet: regular Discharge Instructions: Please avoid large gathering, wear face coverings in public and practice social distance. Please add supplements to her diet Take precautions to avoid falls. Rise slowly from a lying or sitting position. Pause before standing or walking. Continue Oxygen at 2Liters/min continuously. Titrate to keep SpO2>92% Follow-up with the doctor at the facility Thank you for using [facility] for your yossi care needs. Patient Instructions: Chest Pain (DC) Stand Alone Forms: General Discharge Informa
[2022-04-06 16:25] LABS: EDCOVIDSCREEN Negative (Negative)
[2022-04-06] MEDS: MIRTAZAPINE 30 MG TABLET PO (17:53)
--- NOTE | 2022-04-06 17:55 | PC.NURSE ---
this pt is being d/c to [facility] in [place]. this nurse tried calling report twice. the first time I called to give report at 1605, the tassel making machine operator tried to transfer me to the nurse getting patient. The line rang and eventually a voicemail picked up and I left a message stating that I was calling to give report and requesting a call back. An hour passed with no call from [facility]. I called again at 1703 to give report. I was transferred to the nurse again by the tassel making machine operator, and again the nurse did not product picker phone. The call was redirected back to tassel making machine operator and she stated she would get the nurse and put me on hold. I was on hold for 19mins and 40 seconds before being directed to a voicemail. I again left a voicemail stating that ambulance was called and that I wanted to give report on this patient before she arrived at their facility. I requested them again to call me back so I can give them report.
--- NOTE | 2022-04-06 18:59 | PC.NURSE ---
this nurse tried calling report a third time on this patient. I called at 1845 and spoke to ethylene oxide panelboard operator at [facility]. I told her that ambulance was on their way with patient and I am calling to give report before pt arrives at their facility. The ethylene oxide panelboard operator stated she will try to transfer me to the nurse getting this patient. She transferred me to a phone that kept ringing and ringing. I hung phone up without giving report because I did not speak to anyone after ethylene oxide panelboard operator tried to transfer me again.
== END 2022-04-06 18:45 | DRG 190 ==
LOC: ANHED 18:37 → ANHIMU 22:27 → ANH2MED 04-06 14:29 → ANHIMU 04-07 15:32
PROVIDERS: Family Medicine; Nurse Practitioner Adult Health; Specialist; Admitting Provider Internal Medicine; Emergency Provider Emergency Medicine; PCP Family Medicine; Visit Provider Internal Medicine
PROC: 4A023N7 Measurement of Cardiac Sampling and Pressure, Left Heart, Percutaneous Approach (ICD-10-PCS; CPT 93452; principal; 2022-04-04 09:00)
DX: J44.9 Chronic obstructive pulmonary disease, unspecified (principal); J96.22 Acute and chronic respiratory failure with hypercapnia; J96.21 Acute and chronic respiratory failure with hypoxia; I42.8 Other cardiomyopathies; R64 Cachexia; Z68.1 Body mass index [BMI] 19.9 or less, adult; Z20.822 Contact with and (suspected) exposure to COVID-19; D51.9 Vitamin B12 deficiency anemia, unspecified; E55.9 Vitamin D deficiency, unspecified; K21.9 Gastro-esophageal reflux disease without esophagitis; F41.1 Generalized anxiety disorder; D64.9 Anemia, unspecified; R00.0 Tachycardia, unspecified; R77.8 Other specified abnormalities of plasma proteins; Z99.81 Dependence on supplemental oxygen; Z87.891 Personal history of nicotine dependence; I95.2 Hypotension due to drugs; T42.6X5A Adverse effect of other antiepileptic and sedative-hypnotic drugs, initial encounter
CPT/HCPCS: 36415; 71045; 80048; 80053; 80061; 83735; 84484; 85025; 85027; 85380; 87426; 93005; 93306; 93458; 94640; 96360; 97161; 97165; 99285; A9270; C1887; C1894; C9803; J1644; J1650; J2250; J3010; J7040; J7050; J7120; J7512

== ENCOUNTER 2022-06-22 09:37 | Emergency (ER) | payer MEDICARE, MEDICAID, SELFPAY ==
[2022-06-22] VITALS (11 sets, daily range): BP systolic 92–136; BP diastolic 72–107; PULSE 90–118; RESP 17–25; TEMP 37.1; O2SAT 97–100
--- NOTE | ~2022-06-22 | XR_ITS ---
EXAMINATION: XR chest 1V portable DATE: 06/22/2022 10:37 INDICATION: Cough. TECHNIQUE: A single frontal view of the chest was obtained. COMPARISON: Chest single view 04/02/2022, chest CT 10/29/2021 FINDINGS: There are lucencies and interstitial opacities in the lungs with architectural distortion, consistent with emphysema. There are staple lines in the upper lungs bilaterally. No pleural effusion or pneumothorax. The heart size is normal. There is an old healed left rib fracture. IMPRESSION: 1. Severe emphysema. Reviewed, dictated and finalized at location A. IMPRESSION: 1. Severe emphysema.
--- NOTE | 2022-06-22 10:28 | ED.ANXIETY ---
HPI - Anxiety General Chief Complaint: Anxiety Stated Complaint: anxiety, sob Time Seen by Provider: 06/22/22 10:07 Source: RN notes reviewed History of Present Illness HPI narrative: Patient presents emergency department from home for anxiety. Patient states she has a history of chronic anxiety and is normally on Xanax she states she ran out of her Xanax yesterday. She is she has been more anxious since last night she states that she does have a history of COPD and is chronically on 3 to 4 L nasal cannula at all times. She denies any increasing shortness of breath she denies any chest pain fevers or chills abdominal pain nausea vomiting Related Data Home Medications Medication Instructions Recorded Confirmed escitalopram oxalate 10 mg tablet 30 mg PO DAILY 11/15/19 04/02/22 mirtazapine 30 mg tablet 30 mg PO QPM 10/22/21 04/02/22 montelukast 10 mg tablet 10 mg PO HS 10/22/21 04/02/22 Allergies Allergy/AdvReac Type Severity Reaction Status Date / Time No Known Allergies Allergy Verified 06/22/22 10:51 Review of Systems Review of Systems: Gen.: Denies fevers or chills ENT: Denies congestion Respiratory: Denies shortness of breath or cough CV: Denies chest pain or palpitations GI: Denies abdominal pain nausea, emesis Musculoskeletal: Denies back pain or muscle pain Neuro: Denies numbness, tingling, weakness or focal weakness Skin: Reports anxiety Except as documented, all other systems reviewed and negative PMFSH Past Medical History Medical History Abnormal EKG EKG has previously shown ST elevation which appears to be early repolarization. Alcohol abuse Anorexia Anxiety Asthma B12 deficiency anemia Chronic anemia Chronic respiratory failure with hypoxia and hypercapnia On trilogy unit at nighttime. 3 L nasal cannula during the day. COPD with emphysema Gastroesophageal reflux disease Generalized anxiety disorder with panic attacks Pulmonary cachexia due to chronic obstructive pulmonary disease Spontaneous pneumothorax (08/2012) Several pneumothoraces status post VATS procedure and apical blebectomy as well as pleurodesis. Tobacco abuse Quit in 2019 per patient report. Vitamin D deficiency Surgical History Surgical History History of bilateral tubal ligation History of History of hip surgery (07/2019) ORIF of right hip fracture. History of tonsillectomy Status post thoracotomy Left-sided VATS procedure and apical bleb resection with pleurodesis. Family History Family History Father Acute myocardial infarction Father No problems noted. Unknown No problems noted. Mother No problems noted. Sibling No problems noted. Social History Social History Social History: The patient lives with her 19-year-old son in [place]. She has 2 older sons who are no longer at home. 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 She is a former smoker and reportedly quit in 2019. She smoked as many as 2 packs of cigarettes per day prior to quitting. She has significantly cut back in her drinking and now consumes maybe 5 alcoholic beverages a week. She denies illicit substance use. Her son Lino Foote and ex- Neo Brooke are her surrogate decision maker and she wishes to be a full code. Smoking packs per day: 2 Smoking cigarettes per day: 40.0 Years smoked: 45 Smoking pack-years: 90.00 Smoking status: Former smoker Tobacco type: cigarettes Second hand tobacco smoke exposure: Yes Smoking end date: 10/19/19 Alcohol intake: current Drinks per week: 6 Substance use: never Spiritual care concerns: No Agree to blood products: Yes Exam Narrative: APPEARANCE: Anxious in appearance nontoxic, resting
[2022-06-22] MEDS: LORazepam (*CRX) 0.5 MG TABLET PO (10:47)
== END 2022-06-22 12:50 | disposition home or self-care (01) ==
PROVIDERS: Emergency Provider Emergency Medicine; PCP Family Medicine
DX: F41.9 Anxiety disorder, unspecified (principal); J44.9 Chronic obstructive pulmonary disease, unspecified; K21.9 Gastro-esophageal reflux disease without esophagitis; J45.909 Unspecified asthma, uncomplicated
CPT/HCPCS: 71045; 99283; A9270

== ENCOUNTER 2022-07-02 18:27 | Inpatient (IN) | payer MEDICARE, MEDICAID, SELFPAY ==
[2022-07-02] VITALS (25 sets, daily range): BP systolic 60–99; BP diastolic 49–73; PULSE 106–136; RESP 16–34; TEMP 36.8; O2SAT 100
--- NOTE | ~2022-07-02 | XR_ITS ---
EXAMINATION: XR chest 1V portable DATE: 07/05/2022 05:57 INDICATION: Pulmonary edema. Shortness of breath. TECHNIQUE: A single frontal view of the chest was obtained. COMPARISON: Chest single view 07/02/2022, 06/22/22, chest CT 10/29/2021 FINDINGS: The lungs are hyperexpanded with lucencies and architectural distortion, consistent with em physema. There are staple lines in the upper lungs. There are scattered mild airspace opacities invol ving all lung zones bilaterally. No pleural effusion or pneumothorax. The heart size is normal. There is an old healed left rib fracture. IMPRESSION: 1. Stable diffuse lung disease, likely at least predominantly severe emphysema and scarring. Pneumoni a cannot be excluded. Reviewed, dictated and finalized at location A. IMPRESSION: 1. Stable diffuse lung disease, likely at least predominantly severe emphysema and scarring. Pneumonia cannot be excluded.
--- NOTE | ~2022-07-02 | XR_ITS ---
EXAMINATION: XR chest 1V portable Exam Date/Time: 07/02/2022 20:18 CDT HISTORY: shortness of breath Comparison: 06/22/2022. RESULT: Lines, tubes, and devices: Bilateral upper lung sutures lines. Lungs and pleura: Severe emphysematous change with numerous bullae. Increased reticular pattern in t he bilateral upper and right midlung. Cardiomediastinal silhouette: Stable. Other: No acute osseous or upper abdominal finding. IMPRESSION: Pulmonary opacities may reflect interstitial edema overlying changes of severe bullous emphysema. Reviewed, dictated and finalized at location K.
--- NOTE | 2022-07-02 19:27 | ECG_ITS ---
Measurements Intervals [place] Rate: 112 P: 89 MD: 124 QRS: 79 QRSD: 86 T: 88 QT: 331 QTc: 454 Interpretive Statements SINUS TACHYCARDIA BORDERLINE T WAVE ABNORMALITY- HIGH LATERAL LEADS ABNORMAL ECG COMPARED TO ECG 04/02/2022 17:28:29 NO SIGNIFICANT CHANGES Electronically Signed On 07-02-2022 21:36:31 CDT by Quinton Bell D.O.
--- NOTE | 2022-07-02 19:30 | ED.GENADULT ---
HPI - General Adult General Chief complaint: Shortness of Breath/Dyspnea Stated complaint: sob r/t copd Time Seen by Provider: 07/02/22 19:19 History of Present Illness HPI narrative: Patient is a 56-year-old female who presents the emergency department with chief complaint of shortness of breath and anxiety. Patient reports that she has history of COPD and also significant history of anxiety. Patient reports that she started having worsening shortness of breath reports has been using her inhalers without improvement. Patient reports been wheezing some denies fever denies chills reports is a little bit of a dry cough. The patient denies abdominal pain nausea vomiting or diarrhea. Patient reports no chest pain Related Data Home Medications Medication Instructions Recorded Confirmed escitalopram oxalate 10 mg tablet 30 mg PO DAILY 11/15/19 04/02/22 mirtazapine 30 mg tablet 30 mg PO QPM 10/22/21 04/02/22 montelukast 10 mg tablet 10 mg PO HS 10/22/21 04/02/22 Allergies Allergy/AdvReac Type Severity Reaction Status Date / Time No Known Allergies Allergy Verified 06/22/22 10:51 Review of Systems Review of Systems: A 10 system review of systems was completed on the patient and is negative except for what is stated in the HPI. Nursing and ancillary documentation was reviewed. [facility] Past Medical History Medical History Abnormal EKG EKG has previously shown ST elevation which appears to be early repolarization. Alcohol abuse Anorexia Anxiety Asthma B12 deficiency anemia Chronic anemia Chronic respiratory failure with hypoxia and hypercapnia On trilogy unit at nighttime. 3 L nasal cannula during the day. COPD with emphysema Gastroesophageal reflux disease Generalized anxiety disorder with panic attacks Pulmonary cachexia due to chronic obstructive pulmonary disease Spontaneous pneumothorax (08/2012) Several pneumothoraces status post VATS procedure and apical blebectomy as well as pleurodesis. Tobacco abuse Quit in 2019 per patient report. Vitamin D deficiency Surgical History Surgical History History of bilateral tubal ligation History of History of hip surgery (07/2019) ORIF of right hip fracture. History of tonsillectomy Status post thoracotomy Left-sided VATS procedure and apical bleb resection with pleurodesis. Family History Family History Father Acute myocardial infarction Father No problems noted. Unknown No problems noted. Mother No problems noted. Sibling No problems noted. Social History Social History Social History: The patient lives with her 19-year-old son in [place]. She has 2 older sons who are no longer at home. 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 She is a former smoker and reportedly quit in 2019. She smoked as many as 2 packs of cigarettes per day prior to quitting. She has significantly cut back in her drinking and now consumes maybe 5 alcoholic beverages a week. She denies illicit substance use. Her son Lino Foote and ex- Neo Brooke are her surrogate decision maker and she wishes to be a full code. Smoking packs per day: 2 Smoking cigarettes per day: 40.0 Years smoked: 45 Smoking pack-years: 90.00 Smoking status: Former smoker Tobacco type: cigarettes Second hand tobacco smoke exposure: Yes Smoking end date: 10/19/19 Alcohol intake: current Drinks per week: 6 Substance use: never Spiritual care concerns: No Agree to blood products: Yes Exam Narrative: GENERAL: Well-appearing, well-nourished, and in no acute distress. HEAD: Normocephalic, atraumatic. EYES: PERRLA and EOMI. ENT: Nares clear, no rhinorrhea or ep
[2022-07-02] MEDS: ALBUTEROL SULFATE NEB 2.5 MG/3 ML INH 5 MG INHALATION (19:46)
[2022-07-02] MEDS: IPRATROPIUM BR 0.02% INH SOLN 0.5 MG/2.5 ML VIAL INHALATION (19:47)
[2022-07-02 20:13] LABS: Basophils Absolute Auto 0.1 K/mm3 (0.0-0.1); Basophils Percent Auto 0.5 % (0.2-1.2); Eosinophils Absolute Auto 0.1 K/mm3 (0-0.3); Eosinophils Percent Auto 1.3 % (0-4.4); Hematocrit 33.2 % (37.0-47.0); Hemoglobin 10.3 g/dL (12.0-15.0); Immature Granulocyte Absolute 0.02 K/mm3 (0.00-0.031); Immature Granulocyte Percent A 0.2 % (0-0.5); Lymphocytes Absolute Auto 0.88 K/mm3 (0.9-3.2); Lymphocytes Percent Auto 7.9 % (18.3-44.2); Mean Corpuscular Hemoglobin 30.8 pg (26-34); Mean Corpuscular Volume 99.4 fl (80-100); Mean Platelet Volume 8.2 fl (7.4-10.4); Monocytes Percent Auto 8.9 % (2.6-8.5); Neutrophils Percent Auto 81.2 % (45.5-73.1); Platelet Count Result 361 k/mm3 (150-375); Red Blood Count 3.34 M/mm3 (4.2-5.4); Red Cell Distribution Width 13.6 % (11.5-14.5); White Blood Count 11.1 K/mm3 (4.5-10.0)
[2022-07-02 20:16] LABS: Appearance Urine Clear (Clear); Bilirubin Urine Negative (Negative); Blood Urine Negative (Negative); Color Urine Yellow (Yellow); Glucose Urine UA Negative (Negative); Ketones Urine Negative (Negative); Leukocyte Esterase Ur Negative LEU/UL (Negative); Nitrate Urine Negative (Negative); Protein Urine Negative (Negative); Specific Grav Ur <= 1.005 (1.001-1.035); Urobilinogen Urine 0.2 mg/dL (<2.0); pH Urine 5.5 (5.0-9.0)
[2022-07-02 20:23] LABS: Alanine Aminotransferase 13 U/L (6-35); Albumin Level 3.2 g/dL (3.5-5.1); Alkaline Phosphatase 108 U/L (38-126); Anion Gap 4 mmol/L (8-16); Aspartate Amino Transferase 26 U/L (14-36); Bilirubin,Total 0.2 mg/dL (0.2-1.3); Blood Urea Nitrogen 7 mg/dL (7-17); Calcium 8.4 mg/dL (8.4-10.2); Carbon Dioxide 38 mmol/L (22-30); Chloride 87 mmol/L (98-107); Estimated CRCL calculation 114 ml/min; Estimated Glomerular Filt Rate > 60; Glucose 91 mg/dL (65-110); Potassium 3.4 mmol/L (3.4-5.0); Sodium 129 mmol/L (137-145)
[2022-07-02 20:24] LABS: Lactic Acid Reflex 1.7 mmol/L (0.7-2.0)
[2022-07-02 20:29] LABS: Add Urine Microscopic? NO
[2022-07-02 20:35] LABS: Troponin I 0.016 ng/mL (0.000-0.034)
[2022-07-02 20:47] LABS: Magnesium 1.9 mg/dL (1.6-2.3)
[2022-07-02 20:50] LABS: SARS-CoV-2 RNA PCR Negative
[2022-07-02 20:57] LABS: NT Pro B Type Natriuretic Pept 489 pg/mL (5-100)
[2022-07-02] MEDS: methylPREDNISolone SOD SUCC 125 MG VIAL IV PUSH (21:06)
[2022-07-02] MEDS: SODIUM CHLORIDE 0.9% IV 1,000 ML 999 ML (21:06)
[2022-07-02] MEDS: SODIUM CHLORIDE 0.9% IV 1,000 ML 999 ML IV CONT (21:07)
--- NOTE | 2022-07-02 22:07 | PM.IMHP ---
H&P: HPI History of Present Illness Date/Time: 07/02/22 22:07 Chief Complaint: 56 years old female with past medical history of end-stage COPD chronic hypoxemic respiratory failure on 3 L of oxygen history of low IgG pulmonary cachexia presented to the hospital with shortness of breath started around 3 days ago worsening rapidly worsening with activity associated with cough multiple times a day also patient complained of wheezing worsening gradually patient now have shortness of breath even at rest at the ER patient was found to have acute on top of chronic hypoxemic respiratory failure secondary to COPD exacerbation associated with low blood pressure Review of Systems Review of Systems: 12 system review was done negative except above [facility] Past Medical History Medical History Abnormal EKG EKG has previously shown ST elevation which appears to be early repolarization. Alcohol abuse Anorexia Anxiety Asthma B12 deficiency anemia Chronic anemia Chronic respiratory failure with hypoxia and hypercapnia On trilogy unit at nighttime. 3 L nasal cannula during the day. COPD with emphysema Gastroesophageal reflux disease Generalized anxiety disorder with panic attacks Pulmonary cachexia due to chronic obstructive pulmonary disease Spontaneous pneumothorax (08/2012) Several pneumothoraces status post VATS procedure and apical blebectomy as well as pleurodesis. Tobacco abuse Quit in 2020 per patient report. Vitamin D deficiency Surgical History Surgical History History of bilateral tubal ligation History of History of hip surgery (07/2019) ORIF of right hip fracture. History of tonsillectomy Status post thoracotomy Left-sided VATS procedure and apical bleb resection with pleurodesis. Family History Family History Father Acute myocardial infarction Father No problems noted. Unknown No problems noted. Mother No problems noted. Sibling No problems noted. Social History Social History Social History: The patient lives with her 19-year-old son in [place]. She has 2 older sons who are no longer at home. 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 She is a former smoker and reportedly quit in 2019. She smoked as many as 2 packs of cigarettes per day prior to quitting. She has significantly cut back in her drinking and now consumes maybe 5 alcoholic beverages a week. She denies illicit substance use. Her son Lino Foote and ex- Neo Brooke are her surrogate decision maker and she wishes to be a full code. Smoking packs per day: 2 Smoking cigarettes per day: 40.0 Years smoked: 45 Smoking pack-years: 90.00 Smoking status: Former smoker Tobacco type: cigarettes Second hand tobacco smoke exposure: Yes Smoking end date: 10/19/19 Alcohol intake: current Drinks per week: 6 Substance use: never Spiritual care concerns: No Agree to blood products: Yes Meds Home Medications and Allergies Home Medications Medication Instructions Recorded Confirmed Type escitalopram oxalate 10 mg tablet 30 mg PO DAILY 11/15/19 04/02/22 History mirtazapine 30 mg tablet 30 mg PO QPM 10/22/21 04/02/22 History montelukast 10 mg tablet 10 mg PO HS 10/22/21 04/02/22 History cyanocobalamin (vitamin B-12) 1,000 mcg PO QAM #30 tabs 10/26/21 04/02/22 Rx 1,000 mcg tablet (Vitamin B-12) folic acid 400 mcg tablet 0.4 mg PO DAILY #30 tabs 10/26/21 04/02/22 Rx albuterol sulfate 2.5 mg/3 mL 2.5 mg (3 mL) inhalation QID PRN 11/06/21 04/02/22 Rx (0.083 %) solution for nebulization shortness of breath or wheezing #360 mL albuterol sulfate 90 mcg/actuation 2 puff inhalation QID PRN 11/22/21 04/02/22 Rx aeros
[2022-07-02 22:54] LABS: Thyroid Stimulating Hormone Reflex 0.591 uIU/mL (0.465-4.68)
[2022-07-03] VITALS (21 sets, daily range): BP systolic 100–125; BP diastolic 52–83; PULSE 73–101; RESP 17–22; TEMP 36.3–36.6; O2SAT 98–100; BMI 13.1
[2022-07-03 00:38] LABS: D Dimer 0.25 ug/mL (<0.48)
--- NOTE | 2022-07-03 01:19 | ADMGEN ---
This patient, Esther Brink, was admitted to Medical Room 252-. Patient/family oriented to hospital policies and general routines including ID bracelet, bed and alarms, visiting hours, pain management, procedures, bathroom and other care routines, personal items, smoking policy, room service/diet, and visiting hours. Information on how to activate the Rapid Response Team has been discussed. Patient/Family are encouraged to report perceived risks to care and to ask questions if they do not understand what they are told or what they should do.
[2022-07-03] MEDS: ALBUTEROL SULFATE NEB 2.5 MG/3 ML INH 5 MG INHALATION ×4 (01:25→20:38)
[2022-07-03] MEDS: IPRATROPIUM BR 0.02% INH SOLN 0.5 MG/2.5 ML VIAL INHALATION ×4 (01:25→20:38)
[2022-07-03] MEDS: SODIUM CHLORIDE 0.9% IV 1,000 ML 999 ML IV CONT (01:33)
[2022-07-03] MEDS: SODIUM CHLORIDE 0.9% IV 500 ML IV CONT (01:42)
[2022-07-03] MEDS: SODIUM CHLORIDE 0.9% IV 1,000 ML 100 ML IV CONT (01:43)
[2022-07-03 01:47] LABS: Glucose Point of Care 179 mg/dl (65-105)
[2022-07-03 01:55] LABS: Troponin I 0.012 ng/mL (0.000-0.034)
[2022-07-03] MEDS: DOXYCYCLINE 100 MG/NS 100 ML 100 MG/100 ML BAG IVPB ×3 (02:14→23:33)
[2022-07-03] MEDS: POTASSIUM CHLORIDE 20 MEQ TABLET 40 MEQ PO ×2 (02:37→05:24)
[2022-07-03] MEDS: methylPREDNISolone SOD SUCC 40 MG VIAL IV PUSH ×3 (05:24→21:08)
[2022-07-03 05:45] LABS: Hematocrit 32.3 % (37.0-47.0); Hemoglobin 9.5 g/dL (12.0-15.0); Immature Granulocyte Absolute 0.02 K/mm3 (0.00-0.031); Immature Granulocyte Percent A 0.3 % (0-0.5); Lymphocytes Absolute Auto 0.07 K/mm3 (0.9-3.2); Mean Corpuscular HGB Conc 29.4 g/dl (32-36); Mean Corpuscular Hemoglobin 31.3 pg (26-34); Mean Corpuscular Volume 106.3 fl (80-100); Mean Platelet Volume 8.9 fl (7.4-10.4); Monocytes Percent Auto 0.6 % (2.6-8.5); Neutrophils Absolute Auto 6.7 K/mm3 (1.3-6.7); Neutrophils Percent Auto 98.1 % (45.5-73.1); Platelet Count Result 276 k/mm3 (150-375); Red Blood Count 3.04 M/mm3 (4.2-5.4); Red Cell Distribution Width 13.5 % (11.5-14.5); White Blood Count 6.8 K/mm3 (4.5-10.0)
[2022-07-03 06:08] LABS: Alanine Aminotransferase 12 U/L (6-35); Albumin Level 2.8 g/dL (3.5-5.1); Alkaline Phosphatase 79 U/L (38-126); Anion Gap 7 mmol/L (8-16); Aspartate Amino Transferase 21 U/L (14-36); Bilirubin,Total 0.2 mg/dL (0.2-1.3); Blood Urea Nitrogen 3 mg/dL (7-17); Calcium 7.5 mg/dL (8.4-10.2); Carbon Dioxide 25 mmol/L (22-30); Chloride 102 mmol/L (98-107); Estimated CRCL calculation 83 ml/min; Estimated Glomerular Filt Rate > 60; Glucose 167 mg/dL (65-110); Sodium 134 mmol/L (137-145)
[2022-07-03 08:26] LABS: Anisocytosis 1+ (NORMAL); Hypochromasia 2+ (NORMAL); Macrocytosis 1+ (NORMAL); Platelet Estimate Adequate (Adequate)
[2022-07-03 08:56] LABS: Glucose Point of Care 119 mg/dl (65-105)
[2022-07-03] MEDS: ALPRAZolam (*CRX) 0.25 MG TABLET PO ×2 (09:43→15:15)
[2022-07-03] MEDS: HEPARIN SODIUM 5,000 UNITS/ML VIAL 5000 UNITS SUB-Q ×2 (09:43→21:09)
[2022-07-03 12:12] LABS: Glucose Point of Care 158 mg/dl (65-105)
--- NOTE | 2022-07-03 12:12 | PM.IMPN ---
Progress Note: A&P Assessment and Plan (1) Acute exacerbation of chronic obstructive pulmonary disease: Code(s): J44.1 - Chronic obstructive pulmonary disease with (acute) exacerbation Status: Acute Assessment and Plan: Patient with severe emphysema. +progressive SOB and wheezing. continue systemic steroids- solu-medrol 40 mg IV Q8 hours, wean as patient improves. Continue scheduled duoneb treatments Empiric Rocephin 1 gram IV Q24 hours and Doxycycline 100 mg IV Q12 hours started 07/02/22 Blood cultures pending. wbc within normal limits and afebrile. Chest xray with pulmonary opacities. Resume Trelegy inhaler closer to discharge. (2) Acute and chronic respiratory failure with hypercapnia: Code(s): J96.22 - Acute and chronic respiratory failure with hypercapnia Status: Acute Assessment and Plan: Patient uses 3L O2 at home, requiring 4 L O2 on admission. Wean as tolerated to baseline O2 needs. Continue management of COPDAE. (3) Hypotension: Qualifiers: Hypotension type: hypotension due to hypovolemia Qualified Code(s): I95.89 - Other hypotension; E86.1 - Hypovolemia Code(s): I95.9 - Hypotension, unspecified Status: Acute Assessment and Plan: BP 77/50, HR 117 most likely related to malnutrition and dehydration Improved with IV hydration. Saline lock IV fluids. D-dimer negative Monitor vital signs (4) Protein-calorie malnutrition, severe: Code(s): E43 - Unspecified severe protein-calorie malnutrition Status: Acute Assessment and Plan: Dietary consult (5) Pulmonary cachexia due to chronic obstructive pulmonary disease: Code(s): J44.9 - Chronic obstructive pulmonary disease, unspecified; R64 - Cachexia Status: Acute Assessment and Plan: as above. (6) Nonischemic cardiomyopathy: Code(s): I42.8 - Other cardiomyopathies Status: Chronic Assessment and Plan: Chronic, stable. patient had cardiac catheterization was negative for coronary artery disease 03/2022. patient had nonischemic cardiomyopathy with diastolic dysfunction Monitor volume status and daily weights (7) Normocytic anemia: Code(s): D64.9 - Anemia, unspecified Status: Chronic Assessment and Plan: H/H 9.5/32. Macrocytic, normochromic anemia. Most likely anemia of chronic disease/nutritional anemia. Check iron panel, B12 and folate. transfuse if hemoglobin below 7 Plan CODE STATUS: FULL CODE Disposition: Home. PT/OT eval ordered. Time Spent With Patient Time with patient: 15 - 25 minutes Subjective Date/time seen: 07/03/22 12:12 Interval history: Patient is a 56 years old female with severe COPD, chronic hypoxemic respiratory failure on 3 L of oxygen, pulmonary cachexia, anemia, and anxiety who presented to the ED for evaluation of shortness of breath. Patient reports she is tired today. She denies dyspnea or chest pain. She has a cough but no sputum. Nursing reports no overnight concerns. Patient is still on 3.5 to 4L O2. Review of Systems Review of Systems: All systems reviewed & are unremarkable except as noted in HPI and below Exam Narrative: General:??? No acute distress.?Frail, cachexic adult female lying in bed. HEENT:??? Normocephalic, atraumatic, pupils equal and round. moist mucous membranes. Neck:??Supple. No JVD Respiratory:??Respirations are nonlabored.? Lung sounds?diminished in all montoya. Prolonged expiratory phase. Cardiovascular:??Regular rate and rhythm with S1-S2. No murmurs, gallops or rubs. Gastrointestinal:??Abdomen soft, nondistended, nontender to palpation. positive bowel sounds in all 4 quadrants. Skin:??Warm and dry.? Fair, complexion normal for ethnicity.? Poor turgor Extremities:??No cyanosis. Radial and pedal pulses? palpable and equal. grossly normal range of motion in all 4 extremities generalized weakness BLE. No edema. +muscle atrophy
--- NOTE | 2022-07-03 13:09 | PCNSR ---
On 07/03/22, the student, Jacobo Mcginnis, provided care and completed [facility] documentation on this patient. I have reviewed the student's documentation and agree with the findings.
[2022-07-03] MEDS: ACETAMINOPHEN 325 MG TABLET 650 MG PO (17:01)
[2022-07-03 17:58] LABS: Glucose Point of Care 192 mg/dl (65-105)
[2022-07-03] MEDS: MELATONIN 3 MG TABLET PO (21:10)
[2022-07-03 21:44] LABS: Glucose Point of Care 176 mg/dl (65-105)
[2022-07-04] VITALS (17 sets, daily range): BP systolic 100–110; BP diastolic 57–70; PULSE 79–113; RESP 16–32; TEMP 36.6–36.7; O2SAT 97–100
[2022-07-04] MEDS: ALBUTEROL SULFATE NEB 2.5 MG/3 ML INH 5 MG INHALATION ×4 (02:11→20:56)
[2022-07-04] MEDS: IPRATROPIUM BR 0.02% INH SOLN 0.5 MG/2.5 ML VIAL INHALATION ×4 (02:11→20:55)
[2022-07-04] MEDS: ALPRAZolam (*CRX) 0.25 MG TABLET PO (02:30)
[2022-07-04] MEDS: methylPREDNISolone SOD SUCC 40 MG VIAL IV PUSH ×3 (05:57→21:12)
[2022-07-04] MEDS: ALPRAZolam (*CRX) 0.5 MG TABLET PO ×3 (05:57→15:00)
[2022-07-04 06:10] LABS: Hematocrit 30.6 % (37.0-47.0); Hemoglobin 9.5 g/dL (12.0-15.0); Immature Granulocyte Absolute 0.03 K/mm3 (0.00-0.031); Immature Granulocyte Percent A 0.5 % (0-0.5); Lymphocytes Absolute Auto 0.17 K/mm3 (0.9-3.2); Lymphocytes Percent Auto 2.8 % (18.3-44.2); Mean Corpuscular Hemoglobin 31.1 pg (26-34); Mean Corpuscular Volume 100.3 fl (80-100); Mean Platelet Volume 8.6 fl (7.4-10.4); Monocytes Absolute Auto 0.5 K/mm3 (0.1-0.6); Monocytes Percent Auto 8.3 % (2.6-8.5); Neutrophils Absolute Auto 5.5 K/mm3 (1.3-6.7); Neutrophils Percent Auto 88.4 % (45.5-73.1); Platelet Count Result 367 k/mm3 (150-375); Red Blood Count 3.05 M/mm3 (4.2-5.4); Red Cell Distribution Width 13.2 % (11.5-14.5); White Blood Count 6.2 K/mm3 (4.5-10.0)
[2022-07-04 06:19] LABS: Alanine Aminotransferase 14 U/L (6-35); Alkaline Phosphatase 82 U/L (38-126); Anion Gap 4 mmol/L (8-16); Aspartate Amino Transferase 21 U/L (14-36); Bilirubin,Total < 0.1 mg/dL (0.2-1.3); Calcium 8.9 mg/dL (8.4-10.2); Carbon Dioxide 33 mmol/L (22-30); Chloride 98 mmol/L (98-107); Estimated CRCL calculation 83 ml/min; Estimated Glomerular Filt Rate > 60; Glucose 125 mg/dL (65-110); Potassium 3.1 mmol/L (3.4-5.0); Sodium 135 mmol/L (137-145)
[2022-07-04 06:43] LABS: Iron 66 ug/dL (37-170)
[2022-07-04 06:53] LABS: Percent Iron Saturation 33 % (20-50)
[2022-07-04 08:19] LABS: Glucose Point of Care 110 mg/dl (65-105)
[2022-07-04] MEDS: PANTOPRAZOLE 40 MG TABLET PO (08:40)
[2022-07-04] MEDS: ROFLUMILAST 500 MCG TABLET PO (08:40)
[2022-07-04] MEDS: HEPARIN SODIUM 5,000 UNITS/ML VIAL 5000 UNITS SUB-Q ×2 (08:41→20:03)
--- NOTE | 2022-07-04 11:00 | P.PNIM_ITS ---
Progress Note: A&P Assessment and Plan (1) Acute exacerbation of chronic obstructive pulmonary disease: Code(s): J44.1 - Chronic obstructive pulmonary disease with (acute) exacerbation Status: Acute Assessment and Plan: * Complaints of increased shortness of breath, wheezes, with increased cough and no change in sputum * continue systemic steroids- solu-medrol 40 mg IV Q8 hours, wean as patient improves. * Continue scheduled duoneb treatments * Empiric Rocephin 1 gram IV Q24 hours and Doxycycline 100 mg IV Q12 hours started 07/02/22 * Blood cultures NGTD * wbc 6.2 * Chest xray with pulmonary opacities, with possible interstitial edema * Resume Trelegy inhaler closer to discharge. (2) Acute and chronic respiratory failure with hypercapnia: Code(s): J96.22 - Acute and chronic respiratory failure with hypercapnia Status: Acute Assessment and Plan: * Patient uses 3L O2 at home, requiring 4 L O2 on admission. * Wean as tolerated to baseline O2 needs which is 3-4L * Continue management of COPD * BNP is elevated at 489, could be a bit of overload as well (3) Congestive heart failure: Code(s): I50.9 - Heart failure, unspecified Status: Acute Assessment and Plan: * Appears to be a combines systolic and diastolic heart failure * Could potentially be an exacerbation, which is creating a worsening shortness of breath * BNP elevated at 489 * Echo from 03/2022 showed EF of 40-45%, with a grade 1 diastolic dysfunction * Start PRN lasix to see if this helps, with BP allowing, 40mg IV once today * Chest xray (07/02/22) shows interstitial edema and severe emphysema * Repeat chest xray in the am * Daily weights * Strict I&Os (4) Hypotension: Qualifiers: Hypotension type: hypotension due to hypovolemia Qualified Code(s): I95.89 - Other hypotension; E86.1 - Hypovolemia Code(s): I95.9 - Hypotension, unspecified Status: Acute Assessment and Plan: * Appears to be resolving, current BP is 101/57, HR is 86 * BP 77/50, HR 117 most likely related to malnutrition and dehydration * Improved with IV hydration * D-dimer negative * Monitor vital signs (5) Protein-calorie malnutrition, severe: Code(s): E43 - Unspecified severe protein-calorie malnutrition Status: Acute Assessment and Plan: * Dietary consult * Probably related to COPD and in abilty to breathe while eating * Supplement added (6) Pulmonary cachexia due to chronic obstructive pulmonary disease: Code(s): J44.9 - Chronic obstructive pulmonary disease, unspecified; R64 - Cachexia Status: Acute Assessment and Plan: as above. (7) Nonischemic cardiomyopathy: Code(s): I42.8 - Other cardiomyopathies Status: Chronic Assessment and Plan: * Chronic, stable. patient had cardiac catheterization was negative for coronary artery disease 03/2022. patient had nonischemic cardiomyopathy with diastolic dysfunction * Monitor volume status and daily weights (8) Normocytic anemia: Code(s): D64.9 - Anemia, unspecified Status: Chronic Assessment and Plan: * H/H 9.5/32. Macrocytic, normochromic anemia. Most likely anemia of chronic disease/nutritional anemia. * Iron 66, TIBC 203, % sat 33, B12 550.0, Folate 4.0 * Anemia of chronic disease * transfuse if hemoglobin below 7 Time Spent With Patie
--- NOTE | 2022-07-04 11:00 | PM.IMPN ---
Progress Note: A&P Assessment and Plan (1) Acute exacerbation of chronic obstructive pulmonary disease: Code(s): J44.1 - Chronic obstructive pulmonary disease with (acute) exacerbation Status: Acute Assessment and Plan: Complaints of increased shortness of breath, wheezes, with increased cough and no change in sputum continue systemic steroids- solu-medrol 40 mg IV Q8 hours, wean as patient improves. Continue scheduled duoneb treatments Empiric Rocephin 1 gram IV Q24 hours and Doxycycline 100 mg IV Q12 hours started 07/02/22 Blood cultures NGTD wbc 6.2 Chest xray with pulmonary opacities, with possible interstitial edema Resume Trelegy inhaler closer to discharge. (2) Acute and chronic respiratory failure with hypercapnia: Code(s): J96.22 - Acute and chronic respiratory failure with hypercapnia Status: Acute Assessment and Plan: Patient uses 3L O2 at home, requiring 4 L O2 on admission. Wean as tolerated to baseline O2 needs which is 3-4L Continue management of COPD BNP is elevated at 489, could be a bit of overload as well (3) Congestive heart failure: Code(s): I50.9 - Heart failure, unspecified Status: Acute Assessment and Plan: Appears to be a combines systolic and diastolic heart failure Could potentially be an exacerbation, which is creating a worsening shortness of breath BNP elevated at 489 Echo from 03/2022 showed EF of 40-45%, with a grade 1 diastolic dysfunction Start PRN lasix to see if this helps, with BP allowing, 40mg IV once today Chest xray (07/02/22) shows interstitial edema and severe emphysema Repeat chest xray in the am Daily weights Strict I&Os (4) Hypotension: Qualifiers: Hypotension type: hypotension due to hypovolemia Qualified Code(s): I95.89 - Other hypotension; E86.1 - Hypovolemia Code(s): I95.9 - Hypotension, unspecified Status: Acute Assessment and Plan: Appears to be resolving, current BP is 101/57, HR is 86 BP 77/50, HR 117 most likely related to malnutrition and dehydration Improved with IV hydration D-dimer negative Monitor vital signs (5) Protein-calorie malnutrition, severe: Code(s): E43 - Unspecified severe protein-calorie malnutrition Status: Acute Assessment and Plan: Dietary consult Probably related to COPD and in abilty to breathe while eating Supplement added (6) Pulmonary cachexia due to chronic obstructive pulmonary disease: Code(s): J44.9 - Chronic obstructive pulmonary disease, unspecified; R64 - Cachexia Status: Acute Assessment and Plan: as above. (7) Nonischemic cardiomyopathy: Code(s): I42.8 - Other cardiomyopathies Status: Chronic Assessment and Plan: Chronic, stable. patient had cardiac catheterization was negative for coronary artery disease 03/2022. patient had nonischemic cardiomyopathy with diastolic dysfunction Monitor volume status and daily weights (8) Normocytic anemia: Code(s): D64.9 - Anemia, unspecified Status: Chronic Assessment and Plan: H/H 9.5/32. Macrocytic, normochromic anemia. Most likely anemia of chronic disease/nutritional anemia. Iron 66, TIBC 203, % sat 33, B12 550.0, Folate 4.0 Anemia of chronic disease transfuse if hemoglobin below 7 Time Spent With Patient Time with patient: Greater than 35 minutes Subjective Date/time seen: 07/04/22 1100 Interval history: 07/04/22 1100 Patient was very irritated upon arrival. Patient stated that she just feels that she is not getting the care that she needs or can do this at home and is ready to go. Explained to patient that she needs to be patient as she needs a few more test. She denies any chest pain, shortness of breath, diarrhea, constipation. She is eating okay she states. She also denies any eating disorders with eric
[2022-07-04] MEDS: DOXYCYCLINE 100 MG/NS 100 ML 100 MG/100 ML BAG IVPB ×2 (11:54→23:35)
[2022-07-04 11:56] LABS: Blood Urea Nitrogen < 2 mg/dL (7-17)
[2022-07-04 12:32] LABS: Glucose Point of Care 202 mg/dl (65-105)
[2022-07-04] MEDS: INSULIN ASPART (*BKC) 100 UNITS/ML SUB-Q (12:33)
[2022-07-04] MEDS: FUROSEMIDE INJ 40 MG/4 ML VIAL IV PUSH (13:43)
[2022-07-04] MEDS: POTASSIUM CHLORIDE 20 MEQ TABLET 40 MEQ PO (13:44)
[2022-07-04 17:26] LABS: Glucose Point of Care 141 mg/dl (65-105)
[2022-07-04] MEDS: MIRTAZAPINE 30 MG TABLET PO (20:01)
[2022-07-04] MEDS: MELATONIN 3 MG TABLET PO (20:01)
[2022-07-04 20:23] LABS: Glucose Point of Care 173 mg/dl (65-105)
[2022-07-04] MEDS: LORazepam (*CRX) 0.5 MG TABLET PO (21:12)
[2022-07-05] MEDS: ALBUTEROL SULFATE NEB 2.5 MG/3 ML INH 5 MG INHALATION ×2 (02:57→08:00)
[2022-07-05] MEDS: IPRATROPIUM BR 0.02% INH SOLN 0.5 MG/2.5 ML VIAL INHALATION ×2 (02:57→08:00)
[2022-07-05 02:59] VITALS: PULSE 77; RESP 16
[2022-07-05 05:26] VITALS: BP 102/59; PULSE 97; RESP 17; TEMP 36.9; O2SAT 100
[2022-07-05] MEDS: methylPREDNISolone SOD SUCC 40 MG VIAL IV PUSH (05:35)
[2022-07-05 05:52] LABS: Hematocrit 31.7 % (37.0-47.0); Hemoglobin 9.8 g/dL (12.0-15.0); Immature Granulocyte Absolute 0.01 K/mm3 (0.00-0.031); Immature Granulocyte Percent A 0.2 % (0-0.5); Lymphocytes Absolute Auto 0.13 K/mm3 (0.9-3.2); Mean Corpuscular HGB Conc 30.9 g/dl (32-36); Mean Corpuscular Hemoglobin 31.6 pg (26-34); Mean Corpuscular Volume 102.3 fl (80-100); Mean Platelet Volume 8.5 fl (7.4-10.4); Monocytes Absolute Auto 0.3 K/mm3 (0.1-0.6); Monocytes Percent Auto 6.5 % (2.6-8.5); Neutrophils Absolute Auto 3.9 K/mm3 (1.3-6.7); Neutrophils Percent Auto 90.3 % (45.5-73.1); Platelet Count Result 334 k/mm3 (150-375); Red Cell Distribution Width 13.7 % (11.5-14.5); White Blood Count 4.3 K/mm3 (4.5-10.0)
[2022-07-05 06:09] LABS: Alanine Aminotransferase 14 U/L (6-35); Albumin Level 2.9 g/dL (3.5-5.1); Alkaline Phosphatase 66 U/L (38-126); Anion Gap 3 mmol/L (8-16); Aspartate Amino Transferase 17 U/L (14-36); Bilirubin,Total 0.1 mg/dL (0.2-1.3); Blood Urea Nitrogen 5 mg/dL (7-17); Calcium 9.3 mg/dL (8.4-10.2); Carbon Dioxide 36 mmol/L (22-30); Chloride 97 mmol/L (98-107); Estimated CRCL calculation 83 ml/min; Estimated Glomerular Filt Rate > 60; Glucose 131 mg/dL (65-110); Magnesium 1.9 mg/dL (1.6-2.3); Potassium 4.2 mmol/L (3.4-5.0); Sodium 136 mmol/L (137-145)
[2022-07-05 07:11] LABS: Anisocytosis 1+ (NORMAL); Ovalocytes 1+ (NORMAL); Platelet Estimate Adequate (Adequate)
[2022-07-05 08:00] VITALS: O2SAT 98
[2022-07-05 08:01] VITALS: PULSE 92; RESP 16
[2022-07-05 08:02] VITALS: O2SAT 98
[2022-07-05 08:06] VITALS: PULSE 90; RESP 16
[2022-07-05] MEDS: HEPARIN SODIUM 5,000 UNITS/ML VIAL 5000 UNITS SUB-Q (08:09)
[2022-07-05] MEDS: PANTOPRAZOLE 40 MG TABLET PO (08:09)
[2022-07-05] MEDS: FUROSEMIDE 20 MG TABLET PO (08:09)
[2022-07-05] MEDS: predniSONE 20 MG TABLET 40 MG PO (08:09)
[2022-07-05] MEDS: ROFLUMILAST 500 MCG TABLET PO (08:09)
[2022-07-05 08:49] LABS: Glucose Point of Care 207 mg/dl (65-105)
[2022-07-05] MEDS: INSULIN ASPART (*BKC) 100 UNITS/ML SUB-Q (09:15)
[2022-07-05] MEDS: LORazepam (*CRX) 0.5 MG TABLET PO (09:40)
--- NOTE | 2022-07-05 11:15 | P.PNIM_ITS ---
Progress Note: A&P Assessment and Plan (1) Acute exacerbation of chronic obstructive pulmonary disease: Code(s): J44.1 - Chronic obstructive pulmonary disease with (acute) exacerbation Status: Acute Assessment and Plan: * Complaints of increased shortness of breath, wheezes, with increased cough and no change in sputum * continue systemic steroids- solu-medrol 40 mg IV Q8 hours, change to 40mg PO with taper * Continue scheduled duoneb treatments * Empiric Rocephin 1 gram IV Q24 hours and Doxycycline 100 mg IV Q12 hours started 07/02/22, doxycycline PO * Blood cultures NGTD * wbc 4.3 * Chest xray with pulmonary opacities, with possible interstitial edema * Resume Trelegy inhaler closer to discharge. (2) Acute and chronic respiratory failure with hypercapnia: Code(s): J96.22 - Acute and chronic respiratory failure with hypercapnia Status: Acute Assessment and Plan: * Patient uses 3L O2 at home, requiring 3 L O2 on admission. * Wean as tolerated to baseline O2 needs which is 3-4L * Continue management of COPD * BNP is elevated at 489, could be a bit of overload as well * One dose of IV lasix, changed to 20mg PO Daily (3) Congestive heart failure: Code(s): I50.9 - Heart failure, unspecified Status: Acute Assessment and Plan: * Appears to be a combines systolic and diastolic heart failure * Could potentially be an exacerbation, which is creating a worsening shortness of breath * BNP elevated at 489 * Echo from 03/2022 showed EF of 40-45%, with a grade 1 diastolic dysfunction * Start PRN lasix to see if this helps, with BP allowing, 20mg PO daily * Chest xray (07/02/22) shows interstitial edema and severe emphysema * Repeat chest xray * Daily weights * Strict I&Os (4) Hypotension: Qualifiers: Hypotension type: hypotension due to hypovolemia Qualified Code(s): I95.89 - Other hypotension; E86.1 - Hypovolemia Code(s): I95.9 - Hypotension, unspecified Status: Acute Assessment and Plan: * Appears to be resolving, current BP is 102/59, HR is 97 * BP 77/50, HR 117 most likely related to malnutrition and dehydration * Improved with IV hydration * D-dimer negative * Monitor vital signs (5) Protein-calorie malnutrition, severe: Code(s): E43 - Unspecified severe protein-calorie malnutrition Status: Acute Assessment and Plan: * Dietary consult * Probably related to COPD and in abilty to breathe while eating * Supplement added (6) Pulmonary cachexia due to chronic obstructive pulmonary disease: Code(s): J44.9 - Chronic obstructive pulmonary disease, unspecified; R64 - Cachexia Status: Acute Assessment and Plan: as above. (7) Nonischemic cardiomyopathy: Code(s): I42.8 - Other cardiomyopathies Status: Chronic Assessment and Plan: * Chronic, stable. patient had cardiac catheterization was negative for coronary artery disease 03/2022. patient had nonischemic cardiomyopathy with diastolic dysfunction * Monitor volume status and daily weights (8) Normocytic anemia: Code(s): D64.9 - Anemia, unspecified Status: Chronic Assessment and Plan: * H/H 9.8/31.7 Macrocytic, normochromic anemia. Most likely anemia of chronic disease/nutritional anemia. * Iron 66, TIBC 203, % sat 33, B12 550.0, Folate 4.0 * Anemia of chronic disease * transfuse if
--- NOTE | 2022-07-05 11:15 | PM.IMPN ---
Progress Note: A&P Assessment and Plan (1) Acute exacerbation of chronic obstructive pulmonary disease: Code(s): J44.1 - Chronic obstructive pulmonary disease with (acute) exacerbation Status: Acute Assessment and Plan: Complaints of increased shortness of breath, wheezes, with increased cough and no change in sputum continue systemic steroids- solu-medrol 40 mg IV Q8 hours, change to 40mg PO with taper Continue scheduled duoneb treatments Empiric Rocephin 1 gram IV Q24 hours and Doxycycline 100 mg IV Q12 hours started 07/02/22, doxycycline PO Blood cultures NGTD wbc 4.3 Chest xray with pulmonary opacities, with possible interstitial edema Resume Trelegy inhaler closer to discharge. (2) Acute and chronic respiratory failure with hypercapnia: Code(s): J96.22 - Acute and chronic respiratory failure with hypercapnia Status: Acute Assessment and Plan: Patient uses 3L O2 at home, requiring 3 L O2 on admission. Wean as tolerated to baseline O2 needs which is 3-4L Continue management of COPD BNP is elevated at 489, could be a bit of overload as well One dose of IV lasix, changed to 20mg PO Daily (3) Congestive heart failure: Code(s): I50.9 - Heart failure, unspecified Status: Acute Assessment and Plan: Appears to be a combines systolic and diastolic heart failure Could potentially be an exacerbation, which is creating a worsening shortness of breath BNP elevated at 489 Echo from 03/2022 showed EF of 40-45%, with a grade 1 diastolic dysfunction Start PRN lasix to see if this helps, with BP allowing, 20mg PO daily Chest xray (07/02/22) shows interstitial edema and severe emphysema Repeat chest xray Daily weights Strict I&Os (4) Hypotension: Qualifiers: Hypotension type: hypotension due to hypovolemia Qualified Code(s): I95.89 - Other hypotension; E86.1 - Hypovolemia Code(s): I95.9 - Hypotension, unspecified Status: Acute Assessment and Plan: Appears to be resolving, current BP is 102/59, HR is 97 BP 77/50, HR 117 most likely related to malnutrition and dehydration Improved with IV hydration D-dimer negative Monitor vital signs (5) Protein-calorie malnutrition, severe: Code(s): E43 - Unspecified severe protein-calorie malnutrition Status: Acute Assessment and Plan: Dietary consult Probably related to COPD and in abilty to breathe while eating Supplement added (6) Pulmonary cachexia due to chronic obstructive pulmonary disease: Code(s): J44.9 - Chronic obstructive pulmonary disease, unspecified; R64 - Cachexia Status: Acute Assessment and Plan: as above. (7) Nonischemic cardiomyopathy: Code(s): I42.8 - Other cardiomyopathies Status: Chronic Assessment and Plan: Chronic, stable. patient had cardiac catheterization was negative for coronary artery disease 03/2022. patient had nonischemic cardiomyopathy with diastolic dysfunction Monitor volume status and daily weights (8) Normocytic anemia: Code(s): D64.9 - Anemia, unspecified Status: Chronic Assessment and Plan: H/H 9.8/31.7 Macrocytic, normochromic anemia. Most likely anemia of chronic disease/nutritional anemia. Iron 66, TIBC 203, % sat 33, B12 550.0, Folate 4.0 Anemia of chronic disease transfuse if hemoglobin below 7 Time Spent With Patient Time with patient: Greater than 35 minutes Subjective Date/time seen: 07/05/22 11:30 Interval history: 07/05/22 1130 Patient states she is doing good today. She denies any chest pain, shortness of breath, nausea, vomiting, diarrhea, constipation, weakness or fatigue. She did state that she is very anxious very easily. She is urinating okay and has been up walking the halls. IV Lasix was changed to p.o. Lasix and steroids were changed to p.o. as well.
--- NOTE | 2022-07-05 11:30 | PM.DS ---
DS: Admitting Diagnosis Discharge Date 07/05/22 1130 Admitting Diagnosis COPD exacerbation DS: Discharge Diagnosis Discharge Diagnosis (1) Acute exacerbation of chronic obstructive pulmonary disease: Code(s): J44.1 - Chronic obstructive pulmonary disease with (acute) exacerbation Status: Acute Assessment and Plan: Complaints of increased shortness of breath, wheezes, with increased cough and no change in sputum continue systemic steroids- solu-medrol 40 mg IV Q8 hours, change to 40mg PO with taper Continue scheduled duoneb treatments Empiric Rocephin 1 gram IV Q24 hours and Doxycycline 100 mg IV Q12 hours started 07/02/22, doxycycline PO for DC Blood cultures NGTD wbc 4.3 Chest xray with pulmonary opacities, with possible interstitial edema Resume Trelegy inhaler closer to discharge. (2) Acute and chronic respiratory failure with hypercapnia: Code(s): J96.22 - Acute and chronic respiratory failure with hypercapnia Status: Acute Assessment and Plan: Patient uses 3L O2 at home, requiring 4 L O2 on admission. Wean as tolerated to baseline O2 needs which is 3-4L Continue management of COPD BNP is elevated at 489, could be a bit of overload as well One dose of IV lasix, changed to 20mg PO Daily (3) Congestive heart failure: Code(s): I50.9 - Heart failure, unspecified Status: Acute Assessment and Plan: Appears to be a combines systolic and diastolic heart failure Could potentially be an exacerbation, which is creating a worsening shortness of breath BNP elevated at 489 Echo from 03/2022 showed EF of 40-45%, with a grade 1 diastolic dysfunction Start PRN lasix to see if this helps, with BP allowing, 20mg PO daily Chest xray (07/02/22) shows interstitial edema and severe emphysema Repeat chest xray stable diffuse lung disease, severe emphysema vs PNA Daily weights Strict I&Os (4) Hypotension: Qualifiers: Hypotension type: hypotension due to hypovolemia Qualified Code(s): I95.89 - Other hypotension; E86.1 - Hypovolemia Code(s): I95.9 - Hypotension, unspecified Status: Acute Assessment and Plan: Appears to be resolving, current BP is 102/59, HR is 97 BP 77/50, HR 117 most likely related to malnutrition and dehydration Improved with IV hydration D-dimer negative Monitor vital signs (5) Protein-calorie malnutrition, severe: Code(s): E43 - Unspecified severe protein-calorie malnutrition Status: Acute Assessment and Plan: Dietary consult Probably related to COPD and in abilty to breathe while eating Supplement added (6) Pulmonary cachexia due to chronic obstructive pulmonary disease: Code(s): J44.9 - Chronic obstructive pulmonary disease, unspecified; R64 - Cachexia Status: Acute Assessment and Plan: as above. (7) Nonischemic cardiomyopathy: Code(s): I42.8 - Other cardiomyopathies Status: Chronic Assessment and Plan: Chronic, stable. patient had cardiac catheterization was negative for coronary artery disease 03/2022. patient had nonischemic cardiomyopathy with diastolic dysfunction Monitor volume status and daily weights (8) Normocytic anemia: Code(s): D64.9 - Anemia, unspecified Status: Chronic Assessment and Plan: H/H 9.8/31.7 Macrocytic, normochromic anemia. Most likely anemia of chronic disease/nutritional anemia. Iron 66, TIBC 203, % sat 33, B12 550.0, Folate 4.0 Anemia of chronic disease transfuse if hemoglobin below 7 DS: Summary Hospital Course Hospital Course: Patient is a 56 year old female with a past medical history of COPD, Chronic respiratory failure on 3-4L home oxygen, HTN, and malnutrition that presented to the ED with complaints of worsening shortness of breath.? Upon admission patient was noted to have increased wheezes, shortness of breath, and cough.? She was noted to have an increase
--- NOTE | 2022-07-05 11:30 | P.DS_ITS ---
DS: Admitting Diagnosis Discharge Date 07/05/22 1130 Admitting Diagnosis COPD exacerbation DS: Discharge Diagnosis Discharge Diagnosis (1) Acute exacerbation of chronic obstructive pulmonary disease: Code(s): J44.1 - Chronic obstructive pulmonary disease with (acute) exacerbation Status: Acute Assessment and Plan: * Complaints of increased shortness of breath, wheezes, with increased cough and no change in sputum * continue systemic steroids- solu-medrol 40 mg IV Q8 hours, change to 40mg PO with taper * Continue scheduled duoneb treatments * Empiric Rocephin 1 gram IV Q24 hours and Doxycycline 100 mg IV Q12 hours started 07/02/22, doxycycline PO for DC * Blood cultures NGTD * wbc 4.3 * Chest xray with pulmonary opacities, with possible interstitial edema * Resume Trelegy inhaler closer to discharge. (2) Acute and chronic respiratory failure with hypercapnia: Code(s): J96.22 - Acute and chronic respiratory failure with hypercapnia Status: Acute Assessment and Plan: * Patient uses 3L O2 at home, requiring 4 L O2 on admission. * Wean as tolerated to baseline O2 needs which is 3-4L * Continue management of COPD * BNP is elevated at 489, could be a bit of overload as well * One dose of IV lasix, changed to 20mg PO Daily (3) Congestive heart failure: Code(s): I50.9 - Heart failure, unspecified Status: Acute Assessment and Plan: * Appears to be a combines systolic and diastolic heart failure * Could potentially be an exacerbation, which is creating a worsening shortness of breath * BNP elevated at 489 * Echo from 03/2022 showed EF of 40-45%, with a grade 1 diastolic dysfunction * Start PRN lasix to see if this helps, with BP allowing, 20mg PO daily * Chest xray (07/02/22) shows interstitial edema and severe emphysema * Repeat chest xray stable diffuse lung disease, severe emphysema vs PNA * Daily weights * Strict I&Os (4) Hypotension: Qualifiers: Hypotension type: hypotension due to hypovolemia Qualified Code(s): I95.89 - Other hypotension; E86.1 - Hypovolemia Code(s): I95.9 - Hypotension, unspecified Status: Acute Assessment and Plan: * Appears to be resolving, current BP is 102/59, HR is 97 * BP 77/50, HR 117 most likely related to malnutrition and dehydration * Improved with IV hydration * D-dimer negative * Monitor vital signs (5) Protein-calorie malnutrition, severe: Code(s): E43 - Unspecified severe protein-calorie malnutrition Status: Acute Assessment and Plan: * Dietary consult * Probably related to COPD and in abilty to breathe while eating * Supplement added (6) Pulmonary cachexia due to chronic obstructive pulmonary disease: Code(s): J44.9 - Chronic obstructive pulmonary disease, unspecified; R64 - Cachexia Status: Acute Assessment and Plan: as above. (7) Nonischemic cardiomyopathy: Code(s): I42.8 - Other cardiomyopathies Status: Chronic Assessment and Plan: * Chronic, stable. patient had cardiac catheterization was negative for coronary artery disease 03/2022. patient had nonischemic cardiomyopathy with diastolic dysfunction * Monitor volume status and daily weights (8) Normocytic anemia: Code(s): D64.9 - Anemia, unspecified Status: Chronic Assessment and Plan: * H/H 9.8/31.7 Macrocytic, normochromic anemia. Most likely anemia of chronic disease/nutritional anemia. * Iron 66, TIBC 203, % sat 33, B12 550.0,
[2022-07-05 12:17] LABS: Glucose Point of Care 149 mg/dl (65-105)
[2022-07-05] MEDS: DOXYCYCLINE HYCLATE 100 MG TABLET PO (12:19)
--- NOTE | 2022-07-05 12:43 | PC.NURSE ---
home meds including xanax returned to patient
== END 2022-07-05 13:42 | disposition home or self-care (01) | DRG 190 ==
LOC: ANHED 21:34 → ANH2MED 22:56
PROVIDERS: Nurse Practitioner Family; Admitting Provider Internal Medicine; Emergency Provider Emergency Medicine; PCP Family Medicine; Visit Provider Nurse Practitioner
DX: J43.9 Emphysema, unspecified (principal); E43 Unspecified severe protein-calorie malnutrition; J96.22 Acute and chronic respiratory failure with hypercapnia; J96.21 Acute and chronic respiratory failure with hypoxia; I50.41 Acute combined systolic (congestive) and diastolic (congestive) heart failure; Z68.1 Body mass index [BMI] 19.9 or less, adult; R64 Cachexia; I42.8 Other cardiomyopathies; I11.0 Hypertensive heart disease with heart failure; D51.9 Vitamin B12 deficiency anemia, unspecified; D63.8 Anemia in other chronic diseases classified elsewhere; E87.6 Hypokalemia; E86.0 Dehydration; E86.1 Hypovolemia; E55.9 Vitamin D deficiency, unspecified; F41.9 Anxiety disorder, unspecified; F10.10 Alcohol abuse, uncomplicated; I95.89 Other hypotension; R63.0 Anorexia; K21.9 Gastro-esophageal reflux disease without esophagitis; Z20.822 Contact with and (suspected) exposure to COVID-19; Z99.81 Dependence on supplemental oxygen; Z87.891 Personal history of nicotine dependence
CPT/HCPCS: 36415; 71045; 80053; 81003; 82607; 82746; 82948; 83540; 83550; 83605; 83735; 83880; 84145; 84443; 84484; 85025; 85380; 87040; 93005; 94640; 96361; 96365; 96366; 96367; 96375; 96376; 97161; 97165; 99285; A9270; C9803; G0378; J0696; J1644; J1815; J1940; J2920; J2930; J7030; J7040; J7512; U0003; U0005

== ENCOUNTER 2022-07-14 10:23 | Observation (INO) | payer MEDICARE, MEDICAID, SELFPAY ==
[2022-07-14] VITALS (22 sets, daily range): BP systolic 80–129; BP diastolic 52–116; PULSE 60–98; RESP 14–18; TEMP 36.6–37; O2SAT 98–100; BMI 12.9
--- NOTE | ~2022-07-14 | MR_ITS ---
EXAMINATION: MR MRCP wo/w con/w 3D wo ind DATE: 07/15/2022 14:27 INDICATION: Abnormal liver function tests. TECHNIQUE: Magnetic resonance imaging (MRI) of the abdomen was performed without and with 6 mL MultiH ance intravenous contrast. Sequences included coronal T2-weighted FS FSE, coronal T2-weighted FSE, ax ial T1-weighted LAVA, coronal FS FIESTA, axial dual-echo T1-weighted SPGR, coronal lava-FLEX, sagitta l T2-weighted FSE, axial T2-weighted FSE, and axial DWI. Thick-slab T2-weighted FSE images were obtai hal for magnetic resonance cholangiopancreatography (MRCP). Maximum intensity projection 3-D reconstr uctions of the volumetric data were created by the technologist. Postcontrast sequences included chan nal LAVA-flex and time course of axial T1-weighted LAVA. COMPARISON: Abdomen ultrasound 07/14/2022, chest CT 10/29/2021 FINDINGS: ABDOMEN MRI: The liver is normal. The gallbladder is normal in size and contains sludge. The spleen i s normal. The pancreas, adrenal glands, and kidneys are normal. There are no dilated loops of bowel. There is a small volume of ascites. ABDOMEN MRCP: The common duct is normal and measures 5 mm. IMPRESSION: 1. No choledocholithiasis. 2. Small volume of ascites. Reviewed, dictated and finalized at location A.
--- NOTE | ~2022-07-14 | CT_ITS ---
EXAMINATION: CT brain wo con DATE: 07/14/2022 19:24 INDICATION: Dizziness TECHNIQUE: Computed tomography (CT) of the head was performed without intravenous contrast. Sagittal and coronal reconstructions were performed. The mA was adjusted according to patient size. Iterative reconstruction technique was employed. The dose-length product was 605.33 mGy-cm. COMPARISON: head CT dated 04/10/21, 03/07/2020 and brain MR dated 05/27/2017 FINDINGS: No acute intracranial hemorrhage, acute infarction or abnormal extra axial fluid collection. 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 Ventricles are normal and symmetric. No mass/ mass effect. 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 The orbits, paranasal sinuses and mastoid air cells are normal. IMPRESSION: 1. No acute intracranial process. 2. 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 Reviewed, dictated and finalized at location A.
--- NOTE | ~2022-07-14 | US_ITS ---
US abdomen limited INDICATION: Elevated liver function tests PROCEDURE: Realtime right upper abdominal ultrasound. COMPARISON: No prior studies for comparison. FINDINGS: The pancreas is normal without focal mass or pancreatic ductal dilation. Liver is enlarged measuring 16.8 cm. There is intrahepatic biliary dilatation. There are dependent echogenic foci in t he gallbladder lumen without posterior shadowing measuring up to 1 cm. These may represent gallbladde r sludge or polyps. There is normal directional flow in the portal vein. There is mild gallbladder wall thickening measuring 3.3 mm. Common bile duct measures 3 mm. No sono graphic Rincon's sign. IMPRESSION: 1: Echogenic dependent foci in the gallbladder lumen measuring up to 1 cm which may represent gallbla dder sludge or polyps. Gallbladder wall thickening with intrahepatic biliary dilatation. 2: Hepatomegaly. Reviewed, dictated and finalized at location B. IMPRESSION: 1: Echogenic dependent foci in the gallbladder lumen measuring up to 1 cm which may represent gallbladder sludge or polyps. Gallbladder wall thickening with i ntrahepatic biliary dilatation. 2: Hepatomegaly.
--- NOTE | 2022-07-14 10:51 | ECG_ITS ---
Measurements Intervals [place] Rate: 76 P: 86 VA: 153 QRS: 67 QRSD: 93 T: 83 QT: 397 QTc: 449 Interpretive Statements SINUS RHYTHM MINIMAL Q WAVES- INFERIOR LEADS BASELINE ARTIFACT- V5 BORDERLINE ECG COMPARED TO ECG 07/02/2022 20:34:29 HEART RATE HAS DECREASED Electronically Signed On 07-14-2022 11:19:13 CDT by Quinton Bell D.O.
--- NOTE | 2022-07-14 11:18 | ED.DIZZY ---
HPI - Dizziness General Chief Complaint: Dizziness Stated Complaint: dizzy, light headed Time Seen by Provider: 07/14/22 10:28 History of Present Illness HPI Narrative: Pt presents with intermittent spells of lightheadedness this morning. Pt denies CP or SOB. Pt says she may have noticed some palpitations but not sure. Pt says has history of anxiety and may be related to that. Pt take xanax but did not help this morning. Spells last a few minutes and resolve. Pt has had several episodes of diarrhea as well but denies abdominal pain. Related Data Home Medications Medication Instructions Recorded Confirmed alprazolam 0.25 mg tablet 0.25 mg PO BID PRN severe anxiety 07/14/22 07/14/22 Allergies Allergy/AdvReac Type Severity Reaction Status Date / Time No Known Allergies Allergy Verified 07/14/22 16:00 Review of Systems Review of Systems: All systems reviewed & are unremarkable except as noted in HPI and below PMFSH Past Medical History Medical History (Updated 07/14/22 @ 18:41 by Brooke Pierson PA-C) Abnormal EKG EKG has previously shown ST elevation which appears to be early repolarization. Alcohol abuse Anorexia Anxiety Asthma B12 deficiency anemia Chronic anemia Chronic hyponatremia Chronic respiratory failure with hypoxia and hypercapnia On trilogy unit at nighttime. 3 L nasal cannula during the day. Cognitive impairment COPD with emphysema Gastroesophageal reflux disease Generalized anxiety disorder with panic attacks Pulmonary cachexia due to chronic obstructive pulmonary disease Spontaneous pneumothorax (08/2012) Several pneumothoraces status post VATS procedure and apical blebectomy as well as pleurodesis. Tobacco abuse Quit in 2019 per patient report. Vitamin D deficiency Surgical History Surgical History History of bilateral tubal ligation History of section History of hip surgery (07/2019) ORIF of right hip fracture. History of tonsillectomy Status post thoracotomy Left-sided VATS procedure and apical bleb resection with pleurodesis. Family History Family History Father Acute myocardial infarction Father No problems noted. Unknown No problems noted. Mother No problems noted. Sibling No problems noted. Social History Social History (Updated 07/14/22 @ 18:37 by Brooke Pierson PA-C) Social History: Surrogate medical decision maker: Ex- Neo Brooke or Manish Gardner, brother. Code status: Full code. Smoking packs per day: 2 Smoking cigarettes per day: 40.0 Years smoked: 45 Smoking pack-years: 90.00 Smoking status: Former smoker Tobacco type: cigarettes Second hand tobacco smoke exposure: Yes Alcohol intake: current Drinks per week: 6 Alcohol use details: Heavier drinker in the past. Substance use: never Additional living arrangements comments: Lives with son in [place]. Additional occupation/education comments: Disabled. Spiritual care concerns: No Agree to blood products: Yes Exam Const: General: healthy appearing and no acute distress Nutritional Appearance: thin Orientation/consciousness: patient oriented x3 Limitations: no limitations Neck: Neck: normal visual inspection Chest: Chest palpation & inspection: normal inspection of the chest Resp: Effort & Inspection: normal respiratory effort Auscultation: clear to auscultation bilaterally Cardio: Rate: regular rate Rhythm: regular rhythm GI: Auscultation: normal bowel sounds Skin: General skin exam: normal color Rashes: no rashes Wounds: no wounds Neuro: General: patient oriented x3, moves all extremities, no meningeal signs, no focal motor deficits and CN's II-XI intact bilaterally Cranial nerves: Yes Nystagmus not present Speech: normal speech Extrem: General: normal to inspection and no clubbi
[2022-07-14 11:30] LABS: Alanine Aminotransferase 89 U/L (6-35); Albumin Level 2.6 g/dL (3.5-5.1); Alkaline Phosphatase 111 U/L (38-126); Anion Gap 2 mmol/L (8-16); Aspartate Amino Transferase 222 U/L (14-36); Bilirubin,Total 1.1 mg/dL (0.2-1.3); Blood Urea Nitrogen 8 mg/dL (7-17); Calcium 7.8 mg/dL (8.4-10.2); Carbon Dioxide 36 mmol/L (22-30); Chloride 88 mmol/L (98-107); Estimated CRCL calculation 79 ml/min; Estimated Glomerular Filt Rate > 60; Glucose 130 mg/dL (65-110); Potassium 3.2 mmol/L (3.4-5.0); Sodium 126 mmol/L (137-145)
[2022-07-14 11:33] LABS: INR 1.2; Prothrombin Time 14.4 Seconds (11.1-14.7)
[2022-07-14 11:34] LABS: Partial Thromboplastin Time 33.1 SECONDS (22.3-36.8)
[2022-07-14 11:35] LABS: Basophils Percent Auto 0.2 % (0.2-1.2); Eosinophils Percent Auto 0.7 % (0-4.4); Hematocrit 32.1 % (37.0-47.0); Hemoglobin 10.3 g/dL (12.0-15.0); Immature Granulocyte Absolute 0.02 K/mm3 (0.00-0.031); Immature Granulocyte Percent A 0.3 % (0-0.5); Lymphocytes Absolute Auto 0.64 K/mm3 (0.9-3.2); Lymphocytes Percent Auto 10.5 % (18.3-44.2); Mean Corpuscular HGB Conc 32.1 g/dl (32-36); Mean Corpuscular Hemoglobin 31.7 pg (26-34); Mean Corpuscular Volume 98.8 fl (80-100); Mean Platelet Volume 8.6 fl (7.4-10.4); Monocytes Absolute Auto 0.4 K/mm3 (0.1-0.6); Monocytes Percent Auto 7.2 % (2.6-8.5); Neutrophils Absolute Auto 4.9 K/mm3 (1.3-6.7); Neutrophils Percent Auto 81.1 % (45.5-73.1); Platelet Count Result 225 k/mm3 (150-375); Red Blood Count 3.25 M/mm3 (4.2-5.4); Red Cell Distribution Width 12.4 % (11.5-14.5); White Blood Count 6.1 K/mm3 (4.5-10.0)
[2022-07-14 11:42] LABS: Troponin I 0.013 ng/mL (0.000-0.034)
[2022-07-14] MEDS: POTASSIUM CHLORIDE 20 MEQ TABLET 40 MEQ PO (13:33)
[2022-07-14] MEDS: SODIUM CHLORIDE 0.9% IV 1,000 ML 125 ML IV CONT (13:35)
[2022-07-14 13:44] LABS: SARS-CoV-2 RNA PCR Negative
--- NOTE | 2022-07-14 13:45 | PM.IMHP ---
H&P: HPI History of Present Illness Date/Time: 07/14/22 13:45 Chief Complaint: Lightheaded and dizzy. Narrative: This is a 56-year-old female with end-stage COPD with history of intubation, chronic hypercapnic and hypoxemic respiratory failure on trilogy home ventilator at night and 4 L nasal cannula during the day, and nonischemic cardiomyopathy who presented to the ED with complaints of lightheadedness and dizziness. She is a fair historian and admits that she is quite forgetful. She was recently admitted to the hospital from 07/02 through 07/05/2022 for an acute exacerbation of COPD and she has been back to her baseline since discharge aside from the occasional loose stool. She has been eating and drinking as usual. When she got up this morning however she felt lightheaded and dizzy and she said she was afraid to walk as she thought she was going to pass out. On arrival to the emergency department her blood pressures were stable for her, typically at the very low end of normal. Workup in the emergency department was significant for stable anemia, acute on chronic hyponatremia with a sodium of 126, BUN 8, creatinine 0.30, AST 222, ALT 89. With further questioning she denies that she is drinking alcohol daily as she had previously, and now only admits to drinking a 6 pack of beer a week. She did have 2 beers last night. She does not think that she drinks fluids in excess however throughout the day she frequently drinks sprite, orange juice, and VA juice. She has not had any nausea or vomiting. She has no abdominal pain to speak of. Review of Systems Review of Systems: Twelve systems were reviewed. No fever, chills, or sweats. No headache. No vertigo. No focal weakness or paresthesias. No facial droop, dysarthria, or dysphagia. She denies chest pain pleuritic pain. Her chronic dyspnea is stable. She frequently has a dry cough which is unchanged. No abdominal pain or epigastric pain. She denies bloating and belching. No blood in the stool. No acholic stools. Except as documented, all other systems were reviewed and are negative. [facility] Past Medical History Medical History (Updated 07/14/22 @ 18:41 by Brooke Pierson PA-C) Abnormal EKG EKG has previously shown ST elevation which appears to be early repolarization. Alcohol abuse Anorexia Anxiety Asthma B12 deficiency anemia Chronic anemia Chronic hyponatremia Chronic respiratory failure with hypoxia and hypercapnia On trilogy unit at nighttime. 3 L nasal cannula during the day. Cognitive impairment COPD with emphysema Gastroesophageal reflux disease Generalized anxiety disorder with panic attacks Pulmonary cachexia due to chronic obstructive pulmonary disease Spontaneous pneumothorax (08/2012) Several pneumothoraces status post VATS procedure and apical blebectomy as well as pleurodesis. Tobacco abuse Quit in 2019 per patient report. Vitamin D deficiency Surgical History Surgical History History of bilateral tubal ligation History of section History of hip surgery (07/2019) ORIF of right hip fracture. History of tonsillectomy Status post thoracotomy Left-sided VATS procedure and apical bleb resection with pleurodesis. Family History Family History Father Acute myocardial infarction Father No problems noted. Unknown No problems noted. Mother No problems noted. Sibling No problems noted. Social History Social History (Updated 07/14/22 @ 18:37 by Brooke Pierson PA-C) Social History: Surrogate medical decision maker: Ex- Neo Brooke or Manish Gardner, brother. Code status: Full code. Smoking packs per day: 2 Smoking cigarettes per day: 40.0 Years smoked: 45 Smoking pack-years: 90.00 Smoking status: Former smoker Tobacco type: cigarettes Second hand tobacco smoke exposure: Yes Alcohol in
--- NOTE | 2022-07-14 16:09 | ADMGEN ---
This patient, Esther Brink, was admitted to Medical Room 251-. Patient/family oriented to hospital policies and general routines including ID bracelet, bed and alarms, visiting hours, pain management, procedures, bathroom and other care routines, personal items, smoking policy, room service/diet, and visiting hours. Information on how to activate the Rapid Response Team has been discussed. Patient/Family are encouraged to report perceived risks to care and to ask questions if they do not understand what they are told or what they should do.
[2022-07-14 17:03] LABS: Magnesium 1.8 mg/dL (1.6-2.3)
[2022-07-14 17:06] LABS: Anion Gap 1 mmol/L (8-16); Blood Urea Nitrogen 7 mg/dL (7-17); Calcium 7.7 mg/dL (8.4-10.2); Carbon Dioxide 37 mmol/L (22-30); Chloride 95 mmol/L (98-107); Estimated CRCL calculation 62 ml/min; Estimated Glomerular Filt Rate > 60; Glucose 110 mg/dL (65-110); Potassium 3.6 mmol/L (3.4-5.0); Sodium 133 mmol/L (137-145)
[2022-07-14 17:34] LABS: Thyroid Stimulating Hormone Reflex 0.807 uIU/mL (0.465-4.68)
[2022-07-14 17:36] LABS: Hepatitis B Surface Antigen Negative (Negative)
[2022-07-14 17:53] LABS: Hepatitis C Virus Antibody Negative (Negative)
[2022-07-14] MEDS: ALPRAZolam (*CRX) 0.25 MG TABLET PO (19:07)
[2022-07-14 19:09] LABS: Lipase 149 U/L (23-300)
[2022-07-14 19:10] LABS: Sodium 132 mmol/L (137-145)
[2022-07-14 19:23] LABS: CRP < 0.5 mg/dL (<1.0)
[2022-07-14 23:13] LABS: HAV RESULT Negative (Negative); Hepatitis B Core IgM Result Negative (Negative)
[2022-07-15] VITALS (16 sets, daily range): BP systolic 85–103; BP diastolic 53–67; PULSE 65–118; RESP 16–21; TEMP 36.4–37.2; O2SAT 97–100; BMI 12.6
[2022-07-15 00:12] LABS: Sodium 130 mmol/L (137-145)
[2022-07-15 01:15] LABS: Creatinine Urine 14.4 mg/dL
[2022-07-15 01:25] LABS: Sodium Urine Random 20 meq/L
[2022-07-15 07:19] LABS: Basophils Percent Auto 0.2 % (0.2-1.2); Eosinophils Absolute Auto 0.2 K/mm3 (0-0.3); Eosinophils Percent Auto 3.1 % (0-4.4); Hematocrit 30.2 % (37.0-47.0); Hemoglobin 9.6 g/dL (12.0-15.0); Immature Granulocyte Absolute 0.02 K/mm3 (0.00-0.031); Immature Granulocyte Percent A 0.4 % (0-0.5); Lymphocytes Absolute Auto 1.51 K/mm3 (0.9-3.2); Lymphocytes Percent Auto 27.6 % (18.3-44.2); Mean Corpuscular HGB Conc 31.8 g/dl (32-36); Mean Corpuscular Hemoglobin 31.9 pg (26-34); Mean Corpuscular Volume 100.3 fl (80-100); Mean Platelet Volume 8.7 fl (7.4-10.4); Monocytes Absolute Auto 0.4 K/mm3 (0.1-0.6); Monocytes Percent Auto 7.8 % (2.6-8.5); Neutrophils Absolute Auto 3.3 K/mm3 (1.3-6.7); Neutrophils Percent Auto 60.9 % (45.5-73.1); Platelet Count Result 209 k/mm3 (150-375); Red Blood Count 3.01 M/mm3 (4.2-5.4); Red Cell Distribution Width 12.2 % (11.5-14.5); White Blood Count 5.5 K/mm3 (4.5-10.0)
--- NOTE | 2022-07-15 07:29 | PM.IMPN ---
Progress Note: A&P Assessment and Plan (1) Dizziness: Code(s): R42 - Dizziness and giddiness Status: Acute Assessment and Plan: Likely related to anxiety. The patient is now on her home alprazolam. This has resolved. (2) Elevated LFTs: Code(s): R79.89 - Other specified abnormal findings of blood chemistry Status: Acute Assessment and Plan: Hx of alcohol abuse. Unclear etiology. Lipase normal. Hep A,B,C studies negative. Likely related to alcohol. -GGT am (3) Abnormal gallbladder ultrasound: Code(s): R93.2 - Abnormal findings on diagnostic imaging of liver and biliary tract Status: Acute Assessment and Plan: Abdominal ultrasound with echogenic dependent foci int eh gallbladder lumen measuring up to 1cm, which may represent gallbladder sludge or polyps. Intrahepatic biliary dilation. Gallbladder wall thickening. Patient is asymptomatic. -MRCP pending (4) Hyponatremia: Code(s): E87.1 - Hypo-osmolality and hyponatremia Status: Acute Assessment and Plan: Likely due to chronic ETOH abuse. Appears to be at baseline. Will monitor. (5) Chronic respiratory failure with hypoxia and hypercapnia: Code(s): J96.11 - Chronic respiratory failure with hypoxia; J96.12 - Chronic respiratory failure with hypercapnia Status: Acute Assessment and Plan: Appears to be at baseline near 4L. Will monitor. (6) Chronic obstructive pulmonary disease: Qualifiers: COPD type: COPD with acute exacerbation Qualified Code(s): J44.1 - Chronic obstructive pulmonary disease with (acute) exacerbation Code(s): J44.9 - Chronic obstructive pulmonary disease, unspecified Status: Acute Assessment and Plan: Continue Inruse Ellipta and albuterol as needed. Time Spent With Patient Time: SCDs for prophylaxis Full Code Subjective Date/time seen: 07/15/22 07:29 Patient reports she has anxiety and last night felt like she was having shortness of breath. She denies having shortness of breath at this time. Denies having chest pain or difficulty breathing. She says she uses her trilogy continuously throughout the day on 3-4. She does not know how to read the settings. She does wear an oxygen concentrator when she leaves home. Review of Systems Respiratory: Respiratory: Denies dyspnea Exam Narrative: GENERAL: NAD, cooperative HEENT: Normocephalic, atraumatic, anicteric NECK: Supple CV: Normal S1, S2, RRR, No MRG RESP: CTAB wearing oxygen Abdomen: Soft, non-tender, non-distended, +BS EXTREMITIES: Warm and well perfused, no clubbing, cyanosis, or edema. SKIN: warm, dry and intact. NEURO: CN 2-12 grossly intact. Objective Data Vital Signs Vital Signs: Vital Signs - 24 hr 07/14/22 10:24 07/14/22 10:36 07/14/22 12:49 Temperature 36.6 C Pulse Rate 71 71 86 Respiratory Rate 18 18 Blood Pressure 110/71 96/74 L Pulse Oximetry 100 100 Oxygen Delivery Nasal Cannula Oxygen Flow Rate 2 07/14/22 10:34 07/14/22 10:46 07/14/22 11:17 Temperature Pulse Rate 60 71 72 Respiratory Rate 18 18 18 Blood Pressure 110/71 94/52 L 102/69 Pulse Oximetry 100 100 100 Oxygen Delivery Oxygen Flow Rate 07/14/22 12:46 07/14/22 13:44 07/14/22 13:46 Temperature Pulse Rate 69 Respiratory Rate 18 Blood Pressure 96/75 L 92/65 L 94/65 L Pulse Oximetry 100 100 100 Oxygen Delivery Oxygen Flow Rate 07/14/22 14:01 07/14/22 14:47 07/14/22 15:15 Temperature Pulse Rate 64 65 Respiratory Rate 18 18 Blood Pressure 89/64 L 129/116 H Pulse Oximetry 100 100 100 Oxygen Delivery Oxygen Flow Rate 07/14/22 15:17 07/14/22 15:34 07/14/22 16:07 Temperature 36.8 C Pulse Rate 65 98 Respiratory Rate 18 16 Blood Pressure 94/70 L 94/66 L 101/56 L Pulse Oximetry 100 100 Oxygen Delivery Oxygen Flow Rate 07/14/22 18:06 07/14/22 21:08 07/14/22 21:
[2022-07-15 07:41] LABS: Alanine Aminotransferase 99 U/L (6-35); Albumin Level 2.4 g/dL (3.5-5.1); Alkaline Phosphatase 88 U/L (38-126); Anion Gap 3 mmol/L (8-16); Aspartate Amino Transferase 241 U/L (14-36); Bilirubin,Total 1.8 mg/dL (0.2-1.3); Calcium 7.7 mg/dL (8.4-10.2); Carbon Dioxide 35 mmol/L (22-30); Chloride 94 mmol/L (98-107); Estimated CRCL calculation 77 ml/min; Estimated Glomerular Filt Rate > 60; Glucose 83 mg/dL (65-110); Potassium 3.2 mmol/L (3.4-5.0); Sodium 132 mmol/L (137-145)
[2022-07-15 08:25] LABS: Blood Urea Nitrogen < 2 mg/dL (7-17)
[2022-07-15] MEDS: UMECLIDINIUM BROMIDE 62.5 MCG ELLIPTA 1 PUFF INHALATION (09:52)
[2022-07-15] MEDS: ALPRAZolam (*CRX) 0.25 MG TABLET PO ×2 (10:11→18:31)
[2022-07-15] MEDS: POTASSIUM CHLORIDE INJ 40 MEQ in SODIUM CHLORIDE 0.9% IV 500 ML 130 MEQ IVPB (11:47)
--- NOTE | 2022-07-15 12:12 | PM.CNGS ---
Assessment and Plan Assessment and plan (1) Abnormal gallbladder ultrasound: Code(s): R93.2 - Abnormal findings on diagnostic imaging of liver and biliary tract Status: Acute Assessment and Plan: Patient presented with elevated LFTs and right upper quadrant ultrasound showed echogenic dependent foci in the gallbladder lumen measuring up to 1 cm which may represent gallbladder sludge or polyps, with gallbladder wall thickening and intrahepatic biliary dilatation. She did not present with abdominal pain and has not had any abdominal pain since admission. She denies any nausea or vomiting. She has been tolerating a diet up to this point. We will order an MRCP to further evaluate the elevated LFTs and rule out sludge or stones in the common duct. May need to consider GI consultation. The patient has multiple comorbidities that increases her risks for surgery. She has chronic respiratory failure and is on chronic oxygen therapy and is additionally malnourished. We will await MRCP results, but if she is able to be treated conservatively then this would be more ideal for the patient given her risks for surgery. Recommend following a low fat diet moving forward. Thank you for allowing us to see the patient in consultation and we will continue to follow along with you. (2) Elevated LFTs: Code(s): R79.89 - Other specified abnormal findings of blood chemistry Status: Acute Assessment and Plan: AST and ALT elevated on admission. Total bilirubin up slightly to 1.8 today. RUQ ultrasound suggests intrahepatic biliary dilatation. Will order MRCP to further evaluate. (3) Dizziness: Code(s): R42 - Dizziness and giddiness Status: Acute Assessment and Plan: This is the reason she presented to the ER yesterday. This is likely not related to her gallbladder. See plan above. Continue workup per hospitalist. (4) Acute hyponatremia: Code(s): E87.1 - Hypo-osmolality and hyponatremia Status: Acute Assessment and Plan: Acute on chronic hyponatremia. Sodium 126 on admission and jumped up to 133. Remains in the 130s this morning. Continue to monitor labs. Potassium also 3.2 today and replaced with KCL. Replace as needed. (5) Nonischemic cardiomyopathy: Code(s): I42.8 - Other cardiomyopathies Status: Chronic Assessment and Plan: Increases risks of surgery. (6) Chronic respiratory failure with hypercapnia: Code(s): J96.12 - Chronic respiratory failure with hypercapnia Status: Acute Assessment and Plan: Chronic respiratory failure on 3-4 L nasal cannula at home. Increases risks of surgery. (7) COPD (chronic obstructive pulmonary disease): Code(s): J44.9 - Chronic obstructive pulmonary disease, unspecified Status: Acute Assessment and Plan: Increased the surgical risks. (8) Protein-calorie malnutrition, severe: Code(s): E43 - Unspecified severe protein-calorie malnutrition Status: Acute Assessment and Plan: Increases surgical risks. Plan I have discussed the patient's case and plan of care with Dr. Mercado. History of Present Illness Consult details Consult date: 07/15/22 Reason for consult: other (RUQ ultrasound showed gallbladder wall thickening with possible sludge or polyps, elevated LFTs) Requesting physician: Brooke Pierson PA-C Narrative: This is a 56-year-old woman with a history of end-stage COPD, chronic hypercapnic and hypoxemic respiratory failure on trilogy home ventilator at night and 3-4 L nasal cannula during the day, nonischemic cardiomyopathy, who presented to the ER yesterday with complaints of lightheadedness and dizziness. She was admitted earlier this month for an acute exacerbation of COPD and was back to baseline since discharge other than a few loose stools. She has been eating and drinking as usual, and tolerating her typical diet. On arrival to the ED, her blood pressure
--- NOTE | 2022-07-15 12:39 | PCNSR ---
On 07/15/22, the student, Jacobo Mcginnis, provided care and completed [facility] on this patient. I have reviewed the student's documentation and agree with the findings.
[2022-07-15 16:02] LABS: Sodium 133 mmol/L (137-145)
[2022-07-15 17:46] LABS: Anion Gap 7 mmol/L (8-16); Carbon Dioxide 29 mmol/L (22-30); Chloride 97 mmol/L (98-107); Estimated CRCL calculation 77 ml/min; Estimated Glomerular Filt Rate > 60; Glucose 142 mg/dL (65-110); Magnesium 1.7 mg/dL (1.6-2.3); Phosphorus 2.4 mg/dL (2.5-4.5); Potassium 3.9 mmol/L (3.4-5.0); Sodium 133 mmol/L (137-145)
[2022-07-15 19:10] LABS: Blood Urea Nitrogen < 2 mg/dL (7-17)
[2022-07-15] MEDS: SODIUM PHOSPHATE 20 MM in DEXTROSE 5% IN WATER 250 ML 50 MM IVPB (20:04)
[2022-07-16] VITALS (10 sets, daily range): BP systolic 85–98; BP diastolic 49–60; PULSE 82–121; RESP 20–21; TEMP 36.6–36.7; O2SAT 98–100
[2022-07-16] MEDS: SALINE 0.65% NAS SOLN 44 ML BTL 1 SPRAY NASAL (00:52)
[2022-07-16 05:06] LABS: Alanine Aminotransferase 97 U/L (6-35); Albumin Level 2.4 g/dL (3.5-5.1); Alkaline Phosphatase 91 U/L (38-126); Anion Gap 3 mmol/L (8-16); Aspartate Amino Transferase 157 U/L (14-36); Bilirubin,Total 0.7 mg/dL (0.2-1.3); Carbon Dioxide 37 mmol/L (22-30); Chloride 95 mmol/L (98-107); Estimated CRCL calculation 77 ml/min; Estimated Glomerular Filt Rate > 60; Glucose 83 mg/dL (65-110); Magnesium 1.8 mg/dL (1.6-2.3); Phosphorus 3.9 mg/dL (2.5-4.5); Potassium 4.2 mmol/L (3.4-5.0); Sodium 135 mmol/L (137-145)
[2022-07-16 05:14] LABS: Prealbumin 16.6 mg/dL (17.6-36.0)
[2022-07-16 05:16] LABS: Blood Urea Nitrogen < 2 mg/dL (7-17)
[2022-07-16] MEDS: UMECLIDINIUM BROMIDE 62.5 MCG ELLIPTA 1 PUFF INHALATION (08:47)
[2022-07-16] MEDS: ALPRAZolam (*CRX) 0.25 MG TABLET PO ×2 (09:11→18:04)
--- NOTE | 2022-07-16 13:06 | PM.DS ---
DS: Admitting Diagnosis Discharge Date July 16, 2022 Admitting Diagnosis Lightheadedness DS: Discharge Diagnosis Discharge Diagnosis (1) Dizziness: Code(s): R42 - Dizziness and giddiness Status: Acute Assessment and Plan: Likely related to anxiety. The patient is now on her home alprazolam. This has resolved. (2) Elevated LFTs: Code(s): R79.89 - Other specified abnormal findings of blood chemistry Status: Acute Assessment and Plan: Hx of alcohol abuse. Unclear etiology. Lipase normal. Hep A,B,C studies negative. Likely related to alcohol. -GGT am (3) Abnormal gallbladder ultrasound: Code(s): R93.2 - Abnormal findings on diagnostic imaging of liver and biliary tract Status: Acute Assessment and Plan: Abdominal ultrasound with echogenic dependent foci int eh gallbladder lumen measuring up to 1cm, which may represent gallbladder sludge or polyps. Intrahepatic biliary dilation. Gallbladder wall thickening. Patient is asymptomatic. -MRCP pending (4) Hyponatremia: Code(s): E87.1 - Hypo-osmolality and hyponatremia Status: Acute Assessment and Plan: Likely due to chronic ETOH abuse. Appears to be at baseline. Will monitor. (5) Chronic respiratory failure with hypoxia and hypercapnia: Code(s): J96.11 - Chronic respiratory failure with hypoxia; J96.12 - Chronic respiratory failure with hypercapnia Status: Acute Assessment and Plan: Appears to be at baseline near 4L. Will monitor. (6) Chronic obstructive pulmonary disease: Qualifiers: COPD type: COPD with acute exacerbation Qualified Code(s): J44.1 - Chronic obstructive pulmonary disease with (acute) exacerbation Code(s): J44.9 - Chronic obstructive pulmonary disease, unspecified Status: Acute Assessment and Plan: Continue Inruse Ellipta and albuterol as needed. DS: Summary Hospital Course Hospital Course: 56-year-old female with end-stage COPD with history of intubation, chronic hypercapnic and hypoxemic respiratory failure on trilogy home ventilator at night and 4 L nasal cannula during the day, and nonischemic cardiomyopathy who presented to the ED with complaints of lightheadedness and dizziness. She is a fair historian and admits that she is quite forgetful. She was recently admitted to the hospital from 07/02 through 07/05/2022 for an acute exacerbation of COPD and she has been back to her baseline since discharge aside from the occasional loose stool. She has been eating and drinking as usual. When she got up this morning however she felt lightheaded and dizzy and she said she was afraid to walk as she thought she was going to pass out. On arrival to the emergency department her blood pressures were stable for her, typically at the very low end of normal. Workup in the emergency department was significant for stable anemia, acute on chronic hyponatremia with a sodium of 126, BUN 8, creatinine 0.30, AST 222, ALT 89. With further questioning she denies that she is drinking alcohol daily as she had previously, and now only admits to drinking a 6 pack of beer a week. She did have 2 beers last night. She does not think that she drinks fluids in excess however throughout the day she frequently drinks sprite, orange juice, and VA juice. She has not had any nausea or vomiting. She has no abdominal pain to speak of. MRCP reviewed, no choledocholithiasis, noted to have a normal gallbladder with sludge, minimal volume of ascites, and normal liver. Would recommend further work-up for the etiology of her transaminitis, which could potentially be as an outpatient through a PCP. For now, she is asymptomatic and high risk for surgical intervention. Would recommend conservative management with diet modifications with a low fat diet. She needs higher protein intake due to her malnutrition if we are limiting her fats. Could consider using Act[employer]
[2022-07-18 09:15] LABS: Osmolality, Urine 117 mOsm/kg (50-1200)
[2022-07-19 15:26] LABS: GGT 97 U/L (3-70)
== END 2022-07-16 18:10 | disposition home or self-care (01) ==
LOC: ANHED 13:14 → ANH2MED 15:58
PROVIDERS: Family Medicine; Physician Assistant; Surgery; Admitting Provider Internal Medicine; Emergency Provider Emergency Medicine; PCP Family Medicine; Visit Provider Student in an Organized Health Care Education/Training Program
DX: R42 Dizziness and giddiness (principal); R79.89 Other specified abnormal findings of blood chemistry; R93.2 Abnormal findings on diagnostic imaging of liver and biliary tract; E87.1 Hypo-osmolality and hyponatremia; J96.11 Chronic respiratory failure with hypoxia; J96.12 Chronic respiratory failure with hypercapnia; Z99.11 Dependence on respirator [ventilator] status; J44.1 Chronic obstructive pulmonary disease with (acute) exacerbation; R74.01 Elevation of levels of liver transaminase levels; I42.8 Other cardiomyopathies; F10.10 Alcohol abuse, uncomplicated; F41.9 Anxiety disorder, unspecified; R19.7 Diarrhea, unspecified; R63.0 Anorexia; Z68.1 Body mass index [BMI] 19.9 or less, adult; Z20.822 Contact with and (suspected) exposure to COVID-19; J45.909 Unspecified asthma, uncomplicated; D64.9 Anemia, unspecified; R64 Cachexia; K21.9 Gastro-esophageal reflux disease without esophagitis; F41.1 Generalized anxiety disorder; F41.0 Panic disorder [episodic paroxysmal anxiety]; E55.9 Vitamin D deficiency, unspecified; I99.8 Other disorder of circulatory system; E87.6 Hypokalemia; R16.0 Hepatomegaly, not elsewhere classified; Z23 Encounter for immunization; Z72.89 Other problems related to lifestyle; Z87.891 Personal history of nicotine dependence; Z79.51 Long term (current) use of inhaled steroids; Z79.899 Other long term (current) drug therapy
CPT/HCPCS: 36415; 70450; 74183; 76376; 76705; 80048; 80053; 80074; 82570; 82977; 83690; 83735; 83930; 83935; 84100; 84134; 84295; 84300; 84443; 84484; 85025; 85610; 85730; 86140; 90471; 90686; 93005; 94640; 96360; 96361; 96365; 96366; 96367; 99285; A9270; A9577; C9803; G0008; G0378; J3480; J7030; J7040; J7060; U0003; U0005

== ENCOUNTER 2022-10-03 11:25 | Inpatient (IN) | payer MEDICARE, MEDICAID, SELFPAY ==
[2022-10-03] VITALS (18 sets, daily range): BP systolic 95–119; BP diastolic 64–92; PULSE 88–138; RESP 16–25; TEMP 36.4–36.7; O2SAT 94–100
--- NOTE | ~2022-10-03 | XR_ITS ---
EXAMINATION: XR chest 2V DATE: 10/03/2022 13:05 INDICATION: Increased shortness of breath TECHNIQUE: AP and lateral views of the chest are obtained. COMPARISON: 07/05/2022 FINDINGS: There is severe emphysema. The lungs are free of acute opacities. There are stable, chronic diffuse airspace opacities. Stable lines are noted in the upper lungs. No pleural effusion or pneumo thorax. The cardiomediastinal silhouette is normal. A chronic burst fracture of T6 is again noted. Th ere is a healed left seventh rib fracture. IMPRESSION: 1. No acute cardiopulmonary abnormality. Reviewed, dictated and finalized at location A. GY SPECIALIST
--- NOTE | ~2022-10-03 | XR_ITS ---
EXAMINATION: XR chest 2V DATE: 10/05/2022 09:02 INDICATION: Shortness of breath TECHNIQUE: PA and lateral views of the chest are obtained. COMPARISON: 10/03/2022 FINDINGS: The lungs are markedly hyperinflated but free of acute opacities. There are multiple suture lines of the upper lungs. No pleural effusion or pneumothorax. The cardiomediastinal silhouette is n ormal. There is a chronic T6 burst fracture. IMPRESSION: 1. No acute cardiopulmonary abnormality. 2. Severe emphysema. Reviewed, dictated and finalized at location A. E GLUER
--- NOTE | 2022-10-03 11:26 | ECG_ITS ---
Measurements Intervals [place] Rate: 119 P: 88 NH: 124 QRS: 74 QRSD: 78 T: 79 QT: 319 QTc: 449 Interpretive Statements SINUS TACHYCARDIA POSSIBLE RIGHT ATRIAL ENLARGEMENT [0.25mV P-WAVE] ABNORMAL RHYTHM ECG COMPARED TO ECG 07/14/2022 11:09:06 SINUS TACHYCARDIA NOW PRESENT Electronically Signed On 10-03-2022 16:41:40 [employer] by Issa Ramos M.D.
[2022-10-03 11:35] LABS: Basophils Absolute Auto 0.1 K/mm3 (0.0-0.1); Basophils Percent Auto 1.3 % (0.2-1.2); Eosinophils Percent Auto 0.8 % (0-4.4); Hematocrit 40.8 % (37.0-47.0); Immature Granulocyte Absolute 0.02 K/mm3 (0.00-0.031); Immature Granulocyte Percent A 0.4 % (0-0.5); Lymphocytes Absolute Auto 0.63 K/mm3 (0.9-3.2); Lymphocytes Percent Auto 11.9 % (18.3-44.2); Mean Corpuscular HGB Conc 31.9 g/dl (32-36); Mean Corpuscular Hemoglobin 32.1 pg (26-34); Mean Corpuscular Volume 100.7 fl (80-100); Mean Platelet Volume 8.9 fl (7.4-10.4); Monocytes Absolute Auto 0.2 K/mm3 (0.1-0.6); Monocytes Percent Auto 4.5 % (2.6-8.5); Neutrophils Absolute Auto 4.3 K/mm3 (1.3-6.7); Neutrophils Percent Auto 81.1 % (45.5-73.1); Platelet Count Result 448 k/mm3 (150-375); Red Blood Count 4.05 M/mm3 (4.2-5.4); Red Cell Distribution Width 12.4 % (11.5-14.5); White Blood Count 5.3 K/mm3 (4.5-10.0)
--- NOTE | 2022-10-03 11:42 | ED.GENADULT ---
HPI - General Adult General Chief complaint: Shortness of Breath/Dyspnea Stated complaint: shortness of breath Time Seen by Provider: 10/03/22 11:29 History of Present Illness HPI narrative: 56-year-old female with past medical history of emphysema, COPD on home O2 presents for evaluation of shortness of breath not relieved by her normal breathing treatments. Patient states she feels as though she is unable to catch my breath . She also feels quite anxious and is asking for a dose of Ativan. She denies chest pain or fever. Related Data Home Medications Medication Instructions Recorded Confirmed alprazolam 0.25 mg tablet 0.25 mg PO BID PRN severe anxiety 07/14/22 07/28/22 Allergies Allergy/AdvReac Type Severity Reaction Status Date / Time No Known Allergies Allergy Verified 10/03/22 11:29 Review of Systems Review of Systems: CONSTITUTIONAL: Denies fever, chills, or sweats. EYES: Denies visual changes, redness, or discharge. ENT: Denies rhinorrhea, congestion, sore throat, or otalgia. CARDIOVASCULAR: Denies chest pain, palpitations, or edema. RESPIRATORY: Denies cough or dyspnea. GASTROINTESTINAL: Denies abdominal pain, nausea, vomiting, or diarrhea. GENITOURINARY: Denies dysuria or hematuria. SKIN: Denies rash or itching. MUSCULOSKELETAL: Denies back pain, joint pain, or myalgia. NEUROLOGIC: Denies headache, numbness, or weakness. PSYCHIATRIC: Denies anxiety or depression. [facility] Past Medical History Medical History Abnormal EKG EKG has previously shown ST elevation which appears to be early repolarization. Alcohol abuse Anorexia Anxiety Asthma B12 deficiency anemia Chronic anemia Chronic hyponatremia Chronic respiratory failure with hypoxia and hypercapnia On trilogy unit at nighttime. 3 L nasal cannula during the day. Cognitive impairment COPD with emphysema Gastroesophageal reflux disease Generalized anxiety disorder with panic attacks Pulmonary cachexia due to chronic obstructive pulmonary disease Spontaneous pneumothorax (08/2012) Several pneumothoraces status post VATS procedure and apical blebectomy as well as pleurodesis. Tobacco abuse Quit in 2020 per patient report. Vitamin D deficiency Surgical History Surgical History History of bilateral tubal ligation History of section History of hip surgery (07/2019) ORIF of right hip fracture. History of tonsillectomy Status post thoracotomy Left-sided VATS procedure and apical bleb resection with pleurodesis. Family History Family History Father Acute myocardial infarction Father No problems noted. Unknown No problems noted. Mother No problems noted. Sibling No problems noted. Social History Social History (Updated 10/03/22 @ 17:47 by Margaret Alcaraz NP) Social History: Surrogate medical decision maker: Ex- Neo Brooke or Manish Gardner, brother. 3 sons one passed Code status: Full code. Smoking packs per day: 2 Smoking cigarettes per day: 40.0 Years smoked: 45 Smoking pack-years: 90.00 Smoking status: Former smoker Tobacco type: cigarettes Second hand tobacco smoke exposure: Yes Alcohol intake: current Drinks per week: 6 Alcohol use details: Heavier drinker in the past. Substance use: never Additional living arrangements comments: Lives with son in [place]. Additional occupation/education comments: Disabled. Spiritual care concerns: No Agree to blood products: Yes Exam Narrative: GENERAL: Well-appearing, cachectic, and in moderate distress. HEAD: Normocephalic, atraumatic. EYES: PERRLA and EOMI. ENT: Nares clear, no rhinorrhea or epistaxis. Mucous membranes moist. NECK: Supple. CHEST: Clear to auscultation. No respiratory distress. HEART: Regular rate and rhythm. No murmur heard.
[2022-10-03 11:50] LABS: Alanine Aminotransferase 15 U/L (6-35); Alkaline Phosphatase 130 U/L (38-126); Anion Gap 4 mmol/L (8-16); Aspartate Amino Transferase 46 U/L (14-36); Bilirubin,Total 0.3 mg/dL (0.2-1.3); Blood Urea Nitrogen 6 mg/dL (7-17); Calcium 8.3 mg/dL (8.4-10.2); Carbon Dioxide 38 mmol/L (22-30); Chloride 92 mmol/L (98-107); Estimated Glomerular Filt Rate > 60; Glucose 98 mg/dL (65-110); Sodium 134 mmol/L (137-145)
[2022-10-03] MEDS: LORazepam INJ (*CRX) 2 MG/ML VIAL 0.5 MG IV PUSH (12:01)
[2022-10-03] MEDS: ALBUTEROL SULFATE NEB 2.5 MG/3 ML INH 5 MG INHALATION ×2 (12:20→16:41)
[2022-10-03] MEDS: MAGNESIUM SULF 2 GM/WATER 50ML 2 GM/50 ML BAG IVPB (16:46)
[2022-10-03 16:49] LABS: Influenza A QL RT-PCR Negative (Negative); Influenza B QL RT-PCR Negative (Negative); SARS-CoV-2 RNA PCR Negative
--- NOTE | 2022-10-03 16:58 | PC.NURSE ---
heart healthy diet dinner tray ordered
--- NOTE | 2022-10-03 17:46 | PM.IMHP ---
H&P: HPI History of Present Illness Date/Time: 10/03/22 17:46 Chief Complaint: Shortness of breath Narrative: This is a 56-year-old female patient who has a history of anxiety and COPD. The patient wears oxygen at home at 2 L per nasal cannula. The patient was so short of breath that she did not get any relief with her normal breathing treatments. Patient continues to state that she cannot catch her breath. Patient was asking for her home dose of Ativan. She denies any fever chills or chest pain. The patient was found to be negative for influenza a B and COVID. Chest x-ray was read as acute cardiopulmonary abnormality. The patient was given Ativan, Decadron magnesium and albuterol the patient is being admitted to observation status on the date of service of 10/03/2022. Review of Systems Review of Systems: See HPI All systems reviewed & are unremarkable except as noted in HPI and below Constitutional: Constitutional: Reports as per HPI and Reports no additional constitutional complaints Eyes: Eyes: Reports as per HPI and Reports no additional eye complaints ENT: Reports system reviewed and no additional complaints, except as documented and Reports Normal hearing present Cardiovascular: Cardiovascular: Reports no additional cardiovascular complaints Respiratory: Respiratory: Reports no additional respiratory complaints and Reports no additional respiratory complaints Gastrointestinal: Gastrointestinal: Reports as per HPI and Reports no additional gastrointestinal complaints Musculoskeletal: Musculoskeletal: Reports no additional musculoskeletal complaints Integumentary/Breasts: Skin/Breast: Reports system reviewed and no additional complaints, except as docu and Reports as per HPI Neurologic: Reports system reviewed and no additional complaints, except as documented, Reports as per HPI and Reports Normal hearing present Psychiatric: Psychiatric: Reports no additional psychiatric complaints and Reports as per HPI Endocrine: Endocrine: Reports no additional endocrine complaints Hematologic/Lymphatic: Hematologic/Lymphatic: Reports no additional hematologic/lymphatic complaints Allergic/Immunologic: Allergic/Immunologic: Reports no additional allergic/immunologic complaints [facility] Past Medical History Medical History (Updated 10/03/22 @ 22:44 by Margaret Alcaraz NP) Abnormal EKG EKG has previously shown ST elevation which appears to be early repolarization. Alcohol abuse Anorexia Anxiety Asthma B12 deficiency anemia Chronic anemia Chronic hyponatremia Chronic obstructive pulmonary disease Chronic respiratory failure with hypoxia and hypercapnia On trilogy unit at nighttime. 3 L nasal cannula during the day. Cognitive impairment COPD with emphysema Gastroesophageal reflux disease Generalized anxiety disorder with panic attacks Person under investigation for COVID-19 Pulmonary cachexia due to chronic obstructive pulmonary disease Spontaneous pneumothorax (08/2012) Several pneumothoraces status post VATS procedure and apical blebectomy as well as pleurodesis. Tobacco abuse Quit in 2019 per patient report. Vitamin D deficiency Surgical History Surgical History History of bilateral tubal ligation History of section History of hip surgery (07/2019) ORIF of right hip fracture. History of tonsillectomy Status post thoracotomy Left-sided VATS procedure and apical bleb resection with pleurodesis. Family History Family History Father Acute myocardial infarction Father No problems noted. Unknown No problems noted. Mother No problems noted. Sibling No problems noted. Social History Social History (Updated 10/03/22 @ 22:38 by Margaret Alcaraz NP) Social History: Surrogate medical decision maker: Ex- Neo Brooke or Manish Gardner, brother. The patient had
--- NOTE | 2022-10-03 22:28 | ECG_ITS ---
Measurements Intervals [place] Rate: 93 P: 87 SC: 167 QRS: -1 QRSD: 90 T: 79 QT: 405 QTc: 506 Interpretive Statements SINUS RHYTHM LOW QRS VOLTAGE IN EXTREMITY LEADS [QRS DEFLECTION < 0.5 mV IN LIMB LEADS] LEFT VENTRICULAR HYPERTROPHY AND ST-T CHANGE [VOLTAGE CRITERIA PLUS ST/T ABNORMALITY] COMPARED TO ECG 10/03/2022 11:33:09 SINUS RHYTHM NOW PRESENT LEFT VENTRICULAR HYPERTROPHY NOW PRESENT ST (T WAVE) DEVIATION NOW PRESENT Electronically Signed On 10-04-2022 8:41:14 PATIENT PORTAL CONCIERGE by Lizbeth Neville M.D.
[2022-10-03] MEDS: ALPRAZolam (*CRX) 0.5 MG TABLET PO (23:08)
--- NOTE | 2022-10-03 23:28 | ADMGEN ---
This patient, Esther Brink, was admitted to [facility] Surg Room 306-02. Patient/family oriented to hospital policies and general routines including ID bracelet, bed and alarms, visiting hours, pain management, procedures, bathroom and other care routines, personal items, smoking policy, room service/diet, and visiting hours. Information on how to activate the Rapid Response Team has been discussed. Patient/Family are encouraged to report perceived risks to care and to ask questions if they do not understand what they are told or what they should do.
[2022-10-04] VITALS (17 sets, daily range): BP systolic 90–94; BP diastolic 56–63; PULSE 70–112; RESP 14–22; TEMP 36.7–37.2; O2SAT 97–100
[2022-10-04] MEDS: DEXAMETHASONE SOD PHOS INJ 4 MG/ML VIAL IV PUSH ×3 (00:02→12:40)
[2022-10-04] MEDS: IPRATROPIUM BR 0.02% INH SOLN 0.5 MG/2.5 ML VIAL INHALATION ×4 (03:00→19:30)
[2022-10-04] MEDS: ALBUTEROL SULFATE NEB 2.5 MG/3 ML INH INHALATION ×4 (03:00→19:30)
[2022-10-04 06:09] LABS: Amphetamine Screen Urine Negative (Negative); Barbiturate Screen Urine Negative (Negative); Benzodiazepines Screen Urine Positive (Negative); Cannabinoid Screen Urine Negative (Negative); Cocaine Screen Urine Negative (Negative); Methadone Screen Urine Negative (Negative); Opiate Screen Urine Negative (Negative); Phencyclidine Screen Urine Negative (Negative)
[2022-10-04 06:13] LABS: Basophils Percent Auto 0.1 % (0.2-1.2); Hematocrit 36.5 % (37.0-47.0); Hemoglobin 11.5 g/dL (12.0-15.0); Immature Granulocyte Absolute 0.03 K/mm3 (0.00-0.031); Immature Granulocyte Percent A 0.3 % (0-0.5); Lymphocytes Absolute Auto 0.16 K/mm3 (0.9-3.2); Lymphocytes Percent Auto 1.5 % (18.3-44.2); Mean Corpuscular HGB Conc 31.5 g/dl (32-36); Mean Corpuscular Hemoglobin 31.8 pg (26-34); Mean Corpuscular Volume 100.8 fl (80-100); Mean Platelet Volume 9.2 fl (7.4-10.4); Monocytes Absolute Auto 0.4 K/mm3 (0.1-0.6); Monocytes Percent Auto 3.5 % (2.6-8.5); Neutrophils Absolute Auto 10.1 K/mm3 (1.3-6.7); Neutrophils Percent Auto 94.6 % (45.5-73.1); Platelet Count Result 405 k/mm3 (150-375); Red Blood Count 3.62 M/mm3 (4.2-5.4); Red Cell Distribution Width 12.2 % (11.5-14.5); White Blood Count 10.7 K/mm3 (4.5-10.0)
[2022-10-04 06:22] LABS: Lactic Acid Reflex 3.5 mmol/L (0.7-2.0)
[2022-10-04 06:43] LABS: Alanine Aminotransferase 17 U/L (6-35); Albumin Level 3.9 g/dL (3.5-5.1); Alkaline Phosphatase 121 U/L (38-126); Anion Gap 8 mmol/L (8-16); Aspartate Amino Transferase 33 U/L (14-36); Bilirubin,Total 0.4 mg/dL (0.2-1.3); Blood Urea Nitrogen 5 mg/dL (7-17); Calcium 8.6 mg/dL (8.4-10.2); Carbon Dioxide 35 mmol/L (22-30); Chloride 94 mmol/L (98-107); Estimated Glomerular Filt Rate > 60; Glucose 141 mg/dL (65-110); Lipase 338 U/L (23-300); Magnesium 2.5 mg/dL (1.6-2.3); Potassium 2.7 mmol/L (3.4-5.0); Sodium 137 mmol/L (137-145)
[2022-10-04 08:11] LABS: Free T4 Free Thyroxine Reflex 0.62 ng/dL (0.78-2.19)
--- NOTE | 2022-10-04 08:20 | PC.NURSE ---
Medication reconciliation was not finished during admission process.
[2022-10-04 08:54] LABS: Lactic Acid Reflex 3.4 mmol/L (0.7-2.0)
[2022-10-04 08:55] LABS: Anion Gap 7 mmol/L (8-16); Blood Urea Nitrogen 4 mg/dL (7-17); Calcium 8.7 mg/dL (8.4-10.2); Carbon Dioxide 32 mmol/L (22-30); Chloride 93 mmol/L (98-107); Estimated Glomerular Filt Rate > 60; Glucose 126 mg/dL (65-110); Potassium 2.9 mmol/L (3.4-5.0); Sodium 132 mmol/L (137-145)
[2022-10-04 09:03] LABS: Reflex Lactic Acid Yes or No Add Lactic
[2022-10-04 09:06] LABS: D Dimer 0.45 ug/mL (<0.48)
[2022-10-04] MEDS: ALPRAZolam (*CRX) 0.5 MG TABLET PO ×2 (11:02→19:53)
[2022-10-04] MEDS: hydrOXYzine HCL 25 MG TABLET PO ×2 (12:41→19:53)
--- NOTE | 2022-10-04 13:02 | PM.IMPN ---
Progress Note: A&P Assessment and Plan (1) Acute exacerbation of chronic obstructive pulmonary disease: Code(s): J44.1 - Chronic obstructive pulmonary disease with (acute) exacerbation Status: Acute Assessment and Plan: appears to be in acute COPD exacerbation improving on IV Decadron - will switch to oral prednisone but do 30 mg since the is only 25 kg and weight - continue inhalers - magnesium given - continue home 4 L of oxygen - D-dimer negative - no signs of infection, no antibiotics needed at this time (2) Anxiety: Code(s): F41.9 - Anxiety disorder, unspecified Status: Acute Assessment and Plan: she states that albuterol and steroids sometimes makes her anxious is doing okay at this time (3) NSVT (nonsustained ventricular tachycardia): Code(s): I47.29 - Other ventricular tachycardia Status: Acute Assessment and Plan: small 5 beat run noted that is asymptomatic - could be due to electrolyte abnormalities, potassium has been ordered - continue telemetry - monitor closely (4) Chronic respiratory failure with hypoxia: Code(s): J96.11 - Chronic respiratory failure with hypoxia Status: Acute Assessment and Plan: continue home 4 L of oxygen (5) Hypokalemia: Code(s): E87.6 - Hypokalemia Status: Acute Assessment and Plan: noted to be hypokalemic today after being completely normal yesterday. Recheck confirmed the hypokalemia and potassium has been ordered (6) Elevated lactic acid level: Code(s): R79.89 - Other specified abnormal findings of blood chemistry Status: Acute Assessment and Plan: lactic acid continues to be elevated in this is a new finding as in the past her lactic acid is normal. I do not think this represents infection or severity of disease as the patient is doing really well and improving. Her blood pressure is always low and her respiratory rate is at her baseline as well. The patient does not have any signs of infection and I believe that white blood cell count is elevated due to the steroids as it was normal when she was admitted. She has been afebrile. Will recheck it but it could be due to albuterol. monitor closely Plan will changed heart healthy diet to regular diet due to her weight plan discussed with supervising physician Dr. Haro Time Spent With Patient Time with patient: 25 - 35 minutes Subjective Date/time seen: 10/04/22 13:02 Interval history: Pt is a 56-year-old female here for COPD exacerbation. Patient was seen today and states she feels much better compared to yesterday. She said her breathing is getting close to her baseline. she is on 4 L at home typically. she feels a little weaker than normal but denies chest pain, fevers, nausea, vomiting, diarrhea or constipation. She is eating her lunch without any issue. she says her blood pressure always runs low. Review of Systems Review of Systems: All systems reviewed & are unremarkable except as noted in HPI and below Exam Narrative: General: frail underweight patient resting comfortably in bed eating her lunch in no acute distress HEENT: normocephalic Neck: supple Neuro: Alert and oriented x4 CV:RRR. telemetry showed a 5 beat run of nonsustained V-tach that was asymptomatic Resp: significantly decreased lung sounds bilaterally. some airflow and the top of the lungs without wheezing. on 4 L Abd: Soft, non distended. No pain to palpation. Positive bowel sounds Extremities: No swelling, erythema, or pain to palpation. Objective Data Vital Signs Vital Signs: Vital Signs - 24 hr 10/03/22 13:40 10/03/22 14:05 10/03/22 15:24 Temperature Pulse Rate 134 H 138 H 125 H Respiratory Rate 16 20 16 Blood Pressure 95/71 L 118/73 Pulse Oximetry 98 98 97 Oxygen Delivery Oxygen Flow Rate 10/03/22 16:42 10/03/22 16:47 10/03/22 17:48 Temperature Pul
[2022-10-04 13:31] LABS: Lactic Acid Reflex 3.5 mmol/L (0.7-2.0)
[2022-10-04] MEDS: POTASSIUM CHLORIDE INJ 40 MEQ in SODIUM CHLORIDE 0.9% IV 500 ML 130 MEQ IVPB (14:52)
[2022-10-04] MEDS: POTASSIUM CHLORIDE 20 MEQ PACKET (FOR LIQUID) 40 MEQ PO ×2 (17:46→19:14)
[2022-10-04 19:56] LABS: Potassium 3.2 mmol/L (3.4-5.0)
[2022-10-05] VITALS (18 sets, daily range): BP systolic 87–113; BP diastolic 48–57; PULSE 80–112; RESP 16–22; TEMP 36.1–36.9; O2SAT 93–100; BMI 12.3
--- NOTE | 2022-10-05 00:32 | PC.NURSE ---
report K 3.2, N.O per Md burden K supplement PO 40 meq
--- NOTE | 2022-10-05 00:35 | PC.NURSE ---
pt sleeping waiting for pt to wake up to given K+ supplement
[2022-10-05] MEDS: POTASSIUM CHLORIDE 20 MEQ PACKET (FOR LIQUID) 40 MEQ PO (01:01)
[2022-10-05] MEDS: IPRATROPIUM BR 0.02% INH SOLN 0.5 MG/2.5 ML VIAL INHALATION ×4 (01:06→20:40)
[2022-10-05] MEDS: ALBUTEROL SULFATE NEB 2.5 MG/3 ML INH INHALATION ×4 (01:06→20:40)
[2022-10-05 01:58] LABS: Anion Gap 0 mmol/L (8-16); Blood Urea Nitrogen 8 mg/dL (7-17); Calcium 8.8 mg/dL (8.4-10.2); Carbon Dioxide 38 mmol/L (22-30); Chloride 94 mmol/L (98-107); Estimated Glomerular Filt Rate > 60; Glucose 86 mg/dL (65-110); Sodium 132 mmol/L (137-145)
[2022-10-05] MEDS: SALINE 0.65% NAS SOLN 44 ML BTL 1 SPRAY NASAL (02:14)
[2022-10-05] MEDS: hydrOXYzine HCL 25 MG TABLET PO (02:33)
--- NOTE | 2022-10-05 07:09 | ECG_ITS ---
Measurements Intervals [place] Rate: 86 P: 85 PA: 132 QRS: 4 QRSD: 86 T: 82 QT: 374 QTc: 450 Interpretive Statements SINUS RHYTHM COMPARED TO ECG 10/03/2022 23:03:55 NO SIGNIFICANT CHANGES Electronically Signed On 10-05-2022 14:45:41 INSTRUMENT TECHNICIAN HELPER by Lizbeth Neville M.D.
--- NOTE | 2022-10-05 07:10 | PC.NURSE ---
called about cwai protocols of pt r/t hx alcoholism, pt tremors, anxiety, sweating, not feeling well. Informed Lina documentation clerk stat ekg ordered. and provider to place cwai protocol
[2022-10-05 07:27] LABS: Hematocrit 35.8 % (37.0-47.0); Hemoglobin 11.1 g/dL (12.0-15.0); Mean Corpuscular Hemoglobin 31.9 pg (26-34); Mean Corpuscular Volume 102.9 fl (80-100); Platelet Count Result 367 k/mm3 (150-375); Red Blood Count 3.48 M/mm3 (4.2-5.4); Red Cell Distribution Width 12.5 % (11.5-14.5); White Blood Count 13.4 K/mm3 (4.5-10.0)
--- NOTE | 2022-10-05 07:34 | PM.IMPN ---
Progress Note: A&P Assessment and Plan (1) Acute exacerbation of chronic obstructive pulmonary disease: Code(s): J44.1 - Chronic obstructive pulmonary disease with (acute) exacerbation Status: Acute Assessment and Plan: Respiratory complaints acute COPD exacerbation - given decadron IV on admission, changed to prednisone 30 mg due to 25 kg weight, started 10/04 - continue inhalers scheduled - magnesium given 10/03 - continue home 4 L of oxygen - D-dimer negative - ?sweating/chills secondary to infection versus reaction to steroids or alcohol withdrawal. WBC 13.4 (?steroids versus infection). chest x-ray without significant change. Will empirically treat with Levaquin 750 mg Q24 hours x 5-7 days to see if there is improvement in her symptoms. EKG unchanged and without ST elevation or depression. Troponin normal and BNP not significantly elevated. No c/o chest pain, N/V or radiating pain. (2) Anxiety: Code(s): F41.9 - Anxiety disorder, unspecified Status: Acute Assessment and Plan: she states that albuterol and steroids sometimes makes her anxious. She takes alprazolam multiple times every day at home. Change alprazolam 0.5 mg BID PO Given ativan 0.5 mg IV x1. CIWA protocol initiated for possible alcohol withdrawal- +diaphoresis, tremors, and anxiety. (3) NSVT (nonsustained ventricular tachycardia): Code(s): I47.29 - Other ventricular tachycardia Status: Acute Assessment and Plan: small 5 beat run noted that is asymptomatic - could be due to electrolyte abnormalities, potassium replaced. - continue telemetry - monitor closely - Magnesium 2.2, K 5.0. Stable. (4) Chronic respiratory failure with hypoxia: Code(s): J96.11 - Chronic respiratory failure with hypoxia Status: Chronic Assessment and Plan: Acute worsening of chronic disease secondary to COPD exacerbation. continue home 4 L of oxygen (5) Hypokalemia: Code(s): E87.6 - Hypokalemia Status: Acute Assessment and Plan: noted to be hypokalemic today after being completely normal yesterday. Recheck confirmed the hypokalemia and potassium has been ordered (6) Elevated lactic acid level: Code(s): R79.89 - Other specified abnormal findings of blood chemistry Status: Acute Assessment and Plan: lactic acid elevated. She has been afebrile. Repeat lactic acid today 1.4 and stable. started levaquin as above. Plan CODE STATUS: FULL CODE Disposition: inpatient discharge destination: home when respiratory status stable. Time Spent With Patient Time with patient: 25 - 35 minutes Subjective Date/time seen: 10/05/22 07:34 Interval history: She c/o sweating, chills and increased anxiety that started yesterday. No chest pain, SOB, abd pain, N/V/D, dysuria, AGUILAR or open wounds. No AGUILAR. She denies cough or sputum at this time. She endorses taking alprazolam 0.5 mg two times everyday but is unsure if she has been receiving it. Review of Systems Review of Systems: All systems reviewed & are unremarkable except as noted in HPI and below Exam Narrative: GENERAL: Mild distress. sitting up in bed. thin, frail older adult female. HEENT: Normocephalic. Sclera non-icteric. Pupils equal and round. Hearing grossly intact. moist mucous membranes NECK: Supple. No JVD RESPIRATORY: RR regular and unlabored. lung sounds diminished right lower and upper lobes, poor air entry. clear but diminished left side. CARDIO: Normal S1 and S2 regular rate and rhythm. No murmurs, gallops, or rubs. GI: soft, soft and nontender to palpation, bowel sounds present. No suprapubic tenderness. SKIN: no rashes or lesions. Fair, warm and dry. Fair turgor. EXTREMITIES: mild visible tremors upper extremities. Grossly normal ROM all extremities. no edema, redness or tenderness. dorsalis pedis pulses +2. NEURO: AOx4 No focal deficits. cranial nerves 2-12 grossly intact. f
[2022-10-05 07:39] LABS: Lactic Acid Reflex 1.4 mmol/L (0.7-2.0); Magnesium 2.2 mg/dL (1.6-2.3)
[2022-10-05 07:59] LABS: NT Pro B Type Natriuretic Pept 665 pg/mL (5-100); Troponin I < 0.012 ng/mL (0.000-0.034)
[2022-10-05 08:43] LABS: Glucose Point of Care 101 mg/dl (65-105)
[2022-10-05] MEDS: LORazepam INJ (*CRX) 2 MG/ML VIAL 0.5 MG IV PUSH (08:44)
[2022-10-05] MEDS: ALPRAZolam (*CRX) 0.5 MG TABLET PO ×2 (09:58→17:23)
[2022-10-05] MEDS: predniSONE 20 MG, predniSONE 10 MG 30 MG PO (09:58)
[2022-10-05 12:32] LABS: Glucose Point of Care 116 mg/dl (65-105)
[2022-10-05] MEDS: levoFLOXacin 750 MG TABLET PO (15:01)
[2022-10-05] MEDS: UMECLIDINIUM BROMIDE 62.5 MCG ELLIPTA 1 PUFF INHALATION (17:15)
[2022-10-05] MEDS: LORazepam INJ (*CRX) 2 MG/ML VIAL IV PUSH (21:33)
--- NOTE | 2022-10-05 21:50 | PC.NURSE ---
spoken to Gerling about concerns with this pt. sweating, tremors, poor appetite, and soft bp's, inquired about fluids. Gerling to stop by and assess pt.
[2022-10-06] VITALS (15 sets, daily range): BP systolic 87–118; BP diastolic 49–86; PULSE 84–117; RESP 18–22; TEMP 36.2–37.3; O2SAT 94–100; BMI 12.3
[2022-10-06] MEDS: ALBUTEROL SULFATE NEB 2.5 MG/3 ML INH INHALATION ×4 (02:15→21:24)
[2022-10-06] MEDS: IPRATROPIUM BR 0.02% INH SOLN 0.5 MG/2.5 ML VIAL INHALATION ×4 (02:15→21:24)
[2022-10-06] MEDS: ACETAMINOPHEN 325 MG TABLET 650 MG PO (04:35)
[2022-10-06 06:02] LABS: Glucose Point of Care 118 mg/dl (65-105)
[2022-10-06 06:07] LABS: Glucose Point of Care 136 mg/dl (65-105)
--- NOTE | 2022-10-06 06:37 | PC.NURSE ---
pt with soft bp sbp 87 now after x2 sprites /
[2022-10-06 06:41] LABS: Basophils Percent Auto 0.1 % (0.2-1.2); Eosinophils Percent Auto 0.2 % (0-4.4); Hematocrit 34.2 % (37.0-47.0); Hemoglobin 10.4 g/dL (12.0-15.0); Immature Granulocyte Absolute 0.03 K/mm3 (0.00-0.031); Immature Granulocyte Percent A 0.3 % (0-0.5); Lymphocytes Absolute Auto 0.65 K/mm3 (0.9-3.2); Lymphocytes Percent Auto 7.6 % (18.3-44.2); Mean Corpuscular HGB Conc 30.4 g/dl (32-36); Mean Corpuscular Hemoglobin 31.7 pg (26-34); Mean Corpuscular Volume 104.3 fl (80-100); Mean Platelet Volume 9.4 fl (7.4-10.4); Monocytes Absolute Auto 0.7 K/mm3 (0.1-0.6); Monocytes Percent Auto 8.4 % (2.6-8.5); Neutrophils Absolute Auto 7.2 K/mm3 (1.3-6.7); Neutrophils Percent Auto 83.4 % (45.5-73.1); Platelet Count Result 338 k/mm3 (150-375); Red Blood Count 3.28 M/mm3 (4.2-5.4); Red Cell Distribution Width 12.1 % (11.5-14.5); White Blood Count 8.6 K/mm3 (4.5-10.0)
[2022-10-06 06:50] LABS: Anion Gap 0 mmol/L (8-16); Blood Urea Nitrogen 7 mg/dL (7-17); Calcium 8.2 mg/dL (8.4-10.2); Carbon Dioxide 38 mmol/L (22-30); Chloride 89 mmol/L (98-107); Estimated CRCL calculation 78 ml/min; Estimated Glomerular Filt Rate > 60; Glucose 86 mg/dL (65-110); Potassium 3.9 mmol/L (3.4-5.0); Sodium 127 mmol/L (137-145)
[2022-10-06 07:51] LABS: Glucose Point of Care 95 mg/dl (65-105)
[2022-10-06] MEDS: UMECLIDINIUM BROMIDE 62.5 MCG ELLIPTA 1 PUFF INHALATION (08:15)
[2022-10-06] MEDS: ALPRAZolam (*CRX) 0.5 MG TABLET PO ×2 (08:34→18:13)
[2022-10-06] MEDS: predniSONE 20 MG, predniSONE 10 MG 30 MG PO (08:34)
--- NOTE | 2022-10-06 08:56 | PM.IMPN ---
Progress Note: A&P Assessment and Plan (1) Acute exacerbation of chronic obstructive pulmonary disease: Code(s): J44.1 - Chronic obstructive pulmonary disease with (acute) exacerbation Status: Acute Assessment and Plan: Respiratory complaints acute COPD exacerbation given decadron IV on admission, changed to prednisone 30 mg due to 25 kg weight, started 10/04 continue inhalers scheduled magnesium given 10/03 continue home 4 L of oxygen D-dimer negative ?sweating/chills secondary to infection versus reaction to steroids or alcohol withdrawal. WBC 13.4 (?steroids versus infection). chest x-ray without significant change. Will empirically treat with Levaquin 750 mg Q24 hours x 5-7 days to see if there is improvement in her symptoms. EKG unchanged and without ST elevation or depression. Troponin normal and BNP not significantly elevated. No c/o chest pain, N/V or radiating pain. improving. ?benzodiazepine withdrawal versus beginning pneumonia. Continue levaquin x 5-7 days. Xanax is scheduled BID at home dose. Leukocytosis resolved 10/06 (2) Anxiety: Code(s): F41.9 - Anxiety disorder, unspecified Status: Resolved Assessment and Plan: she states that albuterol and steroids sometimes makes her anxious. She takes alprazolam multiple times every day at home. Change alprazolam 0.5 mg BID PO Given ativan 0.5 mg IV x1. CIWA protocol initiated for possible alcohol withdrawal- +diaphoresis, tremors, and anxiety. CIWA score 4. She drinks 3 bud lights the most nights of the week. No prior withdrawal episodes or withdrawal seizures. (3) NSVT (nonsustained ventricular tachycardia): Code(s): I47.29 - Other ventricular tachycardia Status: Acute Assessment and Plan: small 5 beat run noted that is asymptomatic could be due to electrolyte abnormalities, potassium replaced. continue laboratory monitor closely Magnesium 2.2, K 5.0. Stable. No arrhythmia on telemetry. 10/06 DC telemetry (4) Chronic respiratory failure with hypoxia: Code(s): J96.11 - Chronic respiratory failure with hypoxia Status: Chronic Assessment and Plan: Acute worsening of chronic disease secondary to COPD exacerbation. continue home 4 L of oxygen Stable on home oxygen. (5) Hypokalemia: Code(s): E87.6 - Hypokalemia Status: Acute Assessment and Plan: noted to be hypokalemic today after being completely normal yesterday. Recheck confirmed the hypokalemia and potassium has been ordered K 3.9. Stable. (6) Elevated lactic acid level: Code(s): R79.89 - Other specified abnormal findings of blood chemistry Status: Acute Assessment and Plan: lactic acid elevated. She has been afebrile. Repeat lactic acid today 1.4 and stable. started levaquin as above. Stable. (7) Acute hyponatremia: Code(s): E87.1 - Hypo-osmolality and hyponatremia Status: Acute Assessment and Plan: Sodium 127. Baseline 132-135. Neuro intact. Appears dry with dry mucous membranes, low normal BP, low documented oral intake/output- suggesting hypovolemia hypnatremia Check urine sodium and urine osmolality Start NS@100 mL/hour Trend sodium Monitor neuro status (8) Pulmonary cachexia due to chronic obstructive pulmonary disease: Code(s): J44.9 - Chronic obstructive pulmonary disease, unspecified; R64 - Cachexia Status: Chronic Assessment and Plan: BMI 12. Regular diet. Consult dietary Plan CODE STATUS: FULL CODE Disposition: inpatient discharge destination: home when respiratory status stable. Subjective Date/time seen: 10/06/22 08:56 She reports her sweating episodes and chills are improved. She feels like her breathing is getting back to normal and her appetite is increased. She denies lethargy, abd pain, N/V/D, lower extremity edema or paresthesia. Review of Systems Review of Systems: All systems reviewed & are unremarkable
[2022-10-06 11:30] LABS: Glucose Point of Care 133 mg/dl (65-105)
[2022-10-06] MEDS: SODIUM CHLORIDE 0.9% IV 1,000 ML 100 ML IV CONT (11:39)
[2022-10-06 14:44] LABS: Sodium 129 mmol/L (137-145)
[2022-10-06] MEDS: levoFLOXacin 750 MG TABLET PO (15:43)
[2022-10-06 18:10] LABS: Iron 58 ug/dL (37-170)
[2022-10-06 18:49] LABS: Percent Iron Saturation 17 % (20-50)
[2022-10-06 19:22] LABS: Sodium Urine Random 23 meq/L
[2022-10-07] VITALS (7 sets, daily range): BP systolic 92–140; BP diastolic 62–64; PULSE 88–110; RESP 18–20; TEMP 36.6–37.1; O2SAT 99–100
[2022-10-07] MEDS: ALBUTEROL SULFATE NEB 2.5 MG/3 ML INH INHALATION ×3 (01:51→15:08)
[2022-10-07] MEDS: IPRATROPIUM BR 0.02% INH SOLN 0.5 MG/2.5 ML VIAL INHALATION ×3 (01:52→15:07)
[2022-10-07] MEDS: SODIUM CHLORIDE 0.9% IV 1,000 ML 100 ML IV CONT (05:04)
[2022-10-07 06:48] LABS: Anion Gap 2 mmol/L (8-16); Blood Urea Nitrogen 9 mg/dL (7-17); Calcium 8.1 mg/dL (8.4-10.2); Carbon Dioxide 38 mmol/L (22-30); Chloride 93 mmol/L (98-107); Estimated CRCL calculation 61 ml/min; Estimated Glomerular Filt Rate > 60; Glucose 91 mg/dL (65-110); Magnesium 1.9 mg/dL (1.6-2.3); Potassium 3.2 mmol/L (3.4-5.0); Sodium 133 mmol/L (137-145)
[2022-10-07 07:48] LABS: Folic Acid 4.5 ng/mL (2.76->20)
[2022-10-07] MEDS: ALPRAZolam (*CRX) 0.5 MG TABLET PO ×2 (10:14→15:16)
[2022-10-07] MEDS: predniSONE 20 MG, predniSONE 10 MG 30 MG PO (10:14)
--- NOTE | 2022-10-07 11:50 | PM.DS ---
DS: Admitting Diagnosis Discharge Date 10/07/2022 1150 Admitting Diagnosis Acute COPD exacerbation Anxiety, chronic DS: Discharge Diagnosis Discharge Diagnosis (1) Acute exacerbation of chronic obstructive pulmonary disease: Code(s): J44.1 - Chronic obstructive pulmonary disease with (acute) exacerbation Status: Acute Assessment and Plan: Respiratory complaints acute COPD exacerbation given decadron IV on admission, changed to prednisone 30 mg due to 25 kg weight, started 10/04 continue inhalers scheduled magnesium given 10/03 continue home 4 L of oxygen D-dimer negative ?sweating/chills secondary to infection versus reaction to steroids or alcohol withdrawal. WBC 13.4 (?steroids versus infection). chest x-ray without significant change. Will empirically treat with Levaquin 750 mg Q24 hours x 5-7 days to see if there is improvement in her symptoms. EKG unchanged and without ST elevation or depression. Troponin normal and BNP not significantly elevated. No c/o chest pain, N/V or radiating pain. improving. ?benzodiazepine withdrawal versus beginning pneumonia. Continue levaquin x 5-7 days. Xanax is scheduled BID at home dose. Leukocytosis resolved 10/06 (2) Anxiety: Code(s): F41.9 - Anxiety disorder, unspecified Status: Resolved Assessment and Plan: she reported albuterol and steroids sometimes makes her anxious. She takes alprazolam multiple times every day at home. Treated with alprazolam 0.5 mg BID PO that she takes at home. Given ativan 0.5 mg IV x1. CIWA protocol initiated for possible alcohol withdrawal- +diaphoresis, tremors, and anxiety. CIWA score 4. She drinks 3 bud lights the most nights of the week. No prior withdrawal episodes or withdrawal seizures. (3) NSVT (nonsustained ventricular tachycardia): Code(s): I47.29 - Other ventricular tachycardia Status: Acute Assessment and Plan: 5 beat run noted during hosptial stay that was asymptomatic Likely due to electrolyte abnormalities, potassium replaced. No further arrhythmias or ectopy. Magnesium 2.2, K 5.0. Stable. 10/06 DC telemetry (4) Chronic respiratory failure with hypoxia: Code(s): J96.11 - Chronic respiratory failure with hypoxia Status: Chronic Assessment and Plan: Acute worsening of chronic disease secondary to COPD exacerbation. Treated with supplemental oxygen and at home 4 L of oxygen at discharge Stable on home oxygen. (5) Hypokalemia: Code(s): E87.6 - Hypokalemia Status: Acute Assessment and Plan: noted to be hypokalemic during hospitalization, but normal on admission. Recheck confirmed the hypokalemia and potassium supplement given. K 3.9. Stable. (6) Elevated lactic acid level: Code(s): R79.89 - Other specified abnormal findings of blood chemistry Status: Acute Assessment and Plan: lactic acid elevated. She has been afebrile. Repeat lactic acid 1.4. started levaquin as above. Stable. (7) Acute hyponatremia: Code(s): E87.1 - Hypo-osmolality and hyponatremia Status: Acute Assessment and Plan: Sodium 127. Baseline 132-135. Neuro intact. Appears dry with dry mucous membranes, low normal BP, low documented oral intake/output- suggesting hypovolemia hypnatremia urine sodium 23 and urine osmolality pending treated with NS@100 mL/hour x24 hours Sodium improved 134 (8) Pulmonary cachexia due to chronic obstructive pulmonary disease: Code(s): J44.9 - Chronic obstructive pulmonary disease, unspecified; R64 - Cachexia Status: Chronic Assessment and Plan: BMI 12. Regular diet. Consulted dietary. Recommended eating small frequent meals. DS: Summary Hospital Course Reason for hospitalization: shortness of breath Hospital Course: Esther Brink is a 56-year-old female patient with anxiety and COPD on 4L chronic home oxygen.? She presented to the ED for c/o severe SOB and did
[2022-10-07] MEDS: levoFLOXacin 750 MG TABLET PO (15:15)
[2022-10-07] MEDS: POTASSIUM CHLORIDE 20 MEQ TABLET 40 MEQ PO (17:07)
[2022-10-08 20:24] LABS: Osmolality, Urine 622 mOsm/kg (50-1200)
== END 2022-10-07 17:20 | disposition home or self-care (01) | DRG 190 ==
LOC: ANHED 15:41 → ANH3MEDSUR 18:39
PROVIDERS: Nurse Practitioner; Physician Assistant; Admitting Provider Internal Medicine; Emergency Provider Emergency Medicine; PCP Family Medicine; Visit Provider Nurse Practitioner Family
DX: J44.1 Chronic obstructive pulmonary disease with (acute) exacerbation (principal); J18.9 Pneumonia, unspecified organism; E87.1 Hypo-osmolality and hyponatremia; I47.29 Other ventricular tachycardia; F19.239 Other psychoactive substance dependence with withdrawal, unspecified; F10.139 Alcohol abuse with withdrawal, unspecified; R64 Cachexia; J96.11 Chronic respiratory failure with hypoxia; J96.12 Chronic respiratory failure with hypercapnia; Z68.1 Body mass index [BMI] 19.9 or less, adult; Z20.822 Contact with and (suspected) exposure to COVID-19; J44.0 Chronic obstructive pulmonary disease with (acute) lower respiratory infection; D72.829 Elevated white blood cell count, unspecified; R25.1 Tremor, unspecified; F41.9 Anxiety disorder, unspecified; E87.6 Hypokalemia; R79.89 Other specified abnormal findings of blood chemistry; Z99.81 Dependence on supplemental oxygen; Z87.891 Personal history of nicotine dependence
CPT/HCPCS: 36415; 71046; 80048; 80053; 80307; 82607; 82746; 82948; 83540; 83550; 83605; 83690; 83735; 83880; 83935; 84132; 84295; 84300; 84439; 84443; 84484; 85025; 85027; 85380; 87636; 93005; 94640; 96375; 96376; 97161; 97165; 99285; A9270; G0378; J1100; J2060; J3475; J3480; J7030; J7040; J7512

== ENCOUNTER 2022-10-18 09:16 | Emergency (ER) | payer MEDICARE, MEDICAID, SELFPAY ==
[2022-10-18] VITALS (20 sets, daily range): BP systolic 65–95; BP diastolic 42–69; PULSE 94–122; RESP 16–24; TEMP 37.4; O2SAT 96–100
--- NOTE | ~2022-10-18 | XR_ITS ---
EXAMINATION: XR chest 1V portable DATE: 10/18/2022 12:05 INDICATION: Tachycardia. Shortness of breath. TECHNIQUE: A single frontal view of the chest was obtained. COMPARISON: Chest 2 views 10/05/2022, chest CT 10/29/2021 FINDINGS: The lungs are hyperexpanded with architectural distortion and lucencies, consistent with em physema. There is mild scarring in left midlung zone. There are staple lines in the lungs bilaterally . No pleural effusion or pneumothorax. The heart size is normal. There is an old healed left rib frac ture. IMPRESSION: 1. Severe emphysema. Reviewed, dictated and finalized at location A. GER ADVANCED IMPRESSION: 1. Severe emphysema.
--- NOTE | 2022-10-18 09:24 | ECG_ITS ---
Measurements Intervals [place] Rate: 115 P: 93 MS: 136 QRS: 34 QRSD: 70 T: 91 QT: 312 QTc: 432 Interpretive Statements SINUS TACHYCARDIA WITH OCCASIONAL SUPRAVENTRICULAR PREMATURE COMPLEXES INFERIOR Q-WAVES CONSIDER PREVIOUS INFERIOR WALL OK ABNORMAL ECG COMPARED TO ECG 10/05/2022 07:32:42 INFERIOR Q-WAVES ARE NOW SEEN, SUGGEST ALTERED LEAD POSITION VERSUS INTERVAL INFERIOR OK Electronically Signed On 10-18-2022 9:56:10 WIRE HANGER by Issa Ramos M.D.
--- NOTE | 2022-10-18 11:59 | ED.GENADULT ---
HPI - General Adult General Chief complaint: Anxiety Stated complaint: SOB Time Seen by Provider: 10/18/22 11:41 History of Present Illness HPI narrative: This is a 57-year-old female with history of anxiety and COPD presenting ED for anxiety. Patient says that she woke up yesterday With Intense feelings of anxiety. She has taken Xanax with no relief. patient has frequent episodes of anxiety attacks. She frequently comes to emergency department for them. She says this is similar to them in every way. She denies fever, chills, chest pain, difficulty breathing, abdominal pain, urinary symptoms. Related Data Allergies Allergy/AdvReac Type Severity Reaction Status Date / Time No Known Allergies Allergy Verified 10/18/22 12:06 Review of Systems Review of Systems: CONSTITUTIONAL: Denies night sweats. EYES: No eye pain ENT: Denies rhinorrhea CARDIOVASCULAR: Denies palpitations RESPIRATORY: Denies hemoptysis GASTROINTESTINAL: Denies hematemesis GENITOURINARY: Denies hematuria. SKIN: Denies rash MUSCULOSKELETAL: Denies myalgia. NEUROLOGIC: Denies weakness. PSYCHIATRIC: Denies delusions [facility] Past Medical History Medical History Abnormal EKG EKG has previously shown ST elevation which appears to be early repolarization. Alcohol abuse Anorexia Anxiety Asthma B12 deficiency anemia Chronic anemia Chronic hyponatremia Chronic obstructive pulmonary disease Chronic respiratory failure with hypoxia and hypercapnia On trilogy unit at nighttime. 3 L nasal cannula during the day. Closed traumatic nondisplaced fracture of neck of right femur Closed traumatic nondisplaced fracture of proximal end of right humerus Cognitive impairment COPD with emphysema Gastroesophageal reflux disease Generalized anxiety disorder with panic attacks Person under investigation for COVID-19 Pulmonary cachexia due to chronic obstructive pulmonary disease Spontaneous pneumothorax (08/2012) Several pneumothoraces status post VATS procedure and apical blebectomy as well as pleurodesis. Tobacco abuse Quit in 2020 per patient report. Vitamin D deficiency Surgical History Surgical History History of bilateral tubal ligation History of section History of hip surgery (07/2019) ORIF of right hip fracture. History of tonsillectomy Status post thoracotomy Left-sided VATS procedure and apical bleb resection with pleurodesis. Family History Family History Father Acute myocardial infarction Father No problems noted. Unknown No problems noted. Mother Chronic obstructive pulmonary disease Sibling No problems noted. Social History Social History Social History: Surrogate medical decision maker: Ex- Neo Brooke or Manish Garnder, brother. The patient had 3 sons but one from drug overdose. The patient is a former smoker. She stated she quit last year. She has a recovering alcoholic. She denies any marijuana or illegal substances. Code status: Full code. Smoking packs per day: 2 Smoking cigarettes per day: 40.0 Years smoked: 45 Smoking pack-years: 90.00 Smoking status: Former smoker Tobacco type: cigarettes Second hand tobacco smoke exposure: Yes Alcohol intake: never Drinks per week: 6 Alcohol use details: Heavier drinker in the past. Substance use: never Substance use type: does not use Lack of Transportation: No Lack of Food: Never True Current Housing: I Have Housing Concerned About Future Housing: No Difficulty Paying Gas/Electric Bills: No Difficulty Paying for Meds: No Currently Unemployed: No Education: High School Diploma/GED Difficulty w/ Childcare or Family Care: No Additional living arrangements comments: Lives with son in
[2022-10-18] MEDS: LORazepam INJ (*CRX) 2 MG/ML VIAL 0.5 MG IV PUSH (12:14)
[2022-10-18 12:24] LABS: Glucose Point of Care 127 mg/dl (65-105)
[2022-10-18 12:35] LABS: Basophils Percent Auto 0.4 % (0.2-1.2); Eosinophils Absolute Auto 0.1 K/mm3 (0-0.3); Eosinophils Percent Auto 1.2 % (0-4.4); Hematocrit 32.8 % (37.0-47.0); Hemoglobin 10.3 g/dL (12.0-15.0); Immature Granulocyte Absolute 0.02 K/mm3 (0.00-0.031); Immature Granulocyte Percent A 0.3 % (0-0.5); Lymphocytes Percent Auto 11.1 % (18.3-44.2); Mean Corpuscular HGB Conc 31.4 g/dl (32-36); Mean Corpuscular Hemoglobin 31.2 pg (26-34); Mean Corpuscular Volume 99.4 fl (80-100); Mean Platelet Volume 8.4 fl (7.4-10.4); Monocytes Absolute Auto 0.5 K/mm3 (0.1-0.6); Monocytes Percent Auto 7.5 % (2.6-8.5); Neutrophils Absolute Auto 5.7 K/mm3 (1.3-6.7); Neutrophils Percent Auto 79.5 % (45.5-73.1); Platelet Count Result 277 k/mm3 (150-375); Red Cell Distribution Width 12.3 % (11.5-14.5); White Blood Count 7.2 K/mm3 (4.5-10.0)
[2022-10-18 12:44] LABS: Anion Gap 0 mmol/L (8-16); Blood Urea Nitrogen 5 mg/dL (7-17); Calcium 8.2 mg/dL (8.4-10.2); Carbon Dioxide 39 mmol/L (22-30); Chloride 93 mmol/L (98-107); Estimated CRCL calculation 85 ml/min; Estimated Glomerular Filt Rate > 60; Glucose 114 mg/dL (65-110); Potassium 3.6 mmol/L (3.4-5.0); Sodium 132 mmol/L (137-145)
[2022-10-18 12:56] LABS: Troponin I < 0.012 ng/mL (0.000-0.034)
[2022-10-18 12:57] LABS: Troponin I < 0.012 ng/mL (0.000-0.034)
[2022-10-18] MEDS: SODIUM CHLORIDE 0.9% IV 1,000 ML 999 ML IV CONT ×2 (13:56)
== END 2022-10-18 19:03 | disposition home or self-care (01) ==
PROVIDERS: Emergency Provider Emergency Medicine; PCP Family Medicine
DX: F41.9 Anxiety disorder, unspecified (principal); J45.909 Unspecified asthma, uncomplicated; J96.11 Chronic respiratory failure with hypoxia; J43.9 Emphysema, unspecified; K21.9 Gastro-esophageal reflux disease without esophagitis; E55.9 Vitamin D deficiency, unspecified; Z99.81 Dependence on supplemental oxygen; Z87.891 Personal history of nicotine dependence; R00.0 Tachycardia, unspecified; R94.31 Abnormal electrocardiogram [ECG] [EKG]; I49.1 Atrial premature depolarization
CPT/HCPCS: 36415; 71045; 80048; 82948; 83735; 84484; 85025; 93005; 96361; 96374; 99284; J2060; J7030

== ENCOUNTER 2022-12-11 23:46 | Inpatient (IN) | payer MEDICARE, MEDICAID, SELFPAY ==
--- NOTE | ~2022-12-11 | XR_ITS ---
Clinical Indication: Shortness of breath PA and lateral views of the chest: Comparison: 10/18/2022 Findings: Severe COPD pattern present. No acute consolidation or pleural effusion. No pneumothorax. S table suture lines. There is no focal consolidation or pleural effusion. Cardiomediastinal silhouett e is within normal limits. Severe compression fracture of what is probably T6 is unchanged.. Impression: Severe COPD pattern. No significant change from prior exam. Severe compression fracture of probably T6, unchanged. Reviewed, dictated and finalized at location M. NT EXECUTIVE Impression: Severe COPD pattern. No significant change from prior exam. Severe compression fracture of probably T6, unchanged.
--- NOTE | ~2022-12-11 | CT_ITS ---
EXAMINATION:CT diagnostic chest wo con DATE: 12/15/2022 14:38 INDICATION: COVID-19 pneumonia. TECHNIQUE: Computed tomography (CT) of the chest was performed without intravenous contrast. Automate d exposure control and iterative reconstruction technique were employed. The dose-length product (DLP ) was 128.42 mGy-cm. COMPARISON: Chest CT 10/29/2021 FINDINGS: There is severe emphysema. There are staple lines in the upper lobes bilaterally. There is mild scarring at the lung bases. No pneumonia or pleural effusion. The heart size is normal. There ar e coronary artery calcifications. No pericardial effusion. There is kyphosis of thoracic spine. There is a chronic burst fracture of T6. There are chronic compression fractures of T5 and T9. There is mi ld thoracic spondylosis. IMPRESSION: 1. Severe emphysema. 2. No findings of pneumonia. Reviewed, dictated and finalized at location A. EE SHOP MANAGER
[2022-12-11 23:52] VITALS: BP 126/66; PULSE 139; RESP 22; O2SAT 96
--- NOTE | 2022-12-11 23:52 | ECG_ITS ---
Measurements Intervals [place] Rate: 137 P: 82 SC: 136 QRS: -50 QRSD: 71 T: 97 QT: 330 QTc: 499 Interpretive Statements SINUS TACHYCARDIA MARKED LEFT AXIS DEVIATION [QRS AXIS < -30] ANTERIOR MYOCARDIAL INFARCTION , PROBABLY OLD [40+ ms Q WAVE AND/OR ST/T ABNORMALITY IN V3/V4] PROBABLE INFERIOR MYOCARDIAL INFARCTION , PROBABLY OLD [35 ms Q WAVE IN II/aVF] COMPARED TO ECG 10/18/2022 09:29:35 HEART RATE IS ACCELERATED Electronically Signed On 12-12-2022 15:19:15 OFFSET PRESS OPERATOR HELPER by Issa Ramos M.D.
[2022-12-12] VITALS (37 sets, daily range): BP systolic 97–137; BP diastolic 58–80; PULSE 83–145; RESP 18–35; TEMP 36.2–37; O2SAT 94–100; BMI 14.1
--- NOTE | 2022-12-12 00:44 | ED.GENADULT ---
HPI - General Adult General Chief complaint: Shortness of Breath/Dyspnea Stated complaint: sob Time Seen by Provider: 12/12/22 00:36 Source: RN notes reviewed History of Present Illness HPI narrative: Patient presents emergency department from home via EMS for shortness of breath. Patient states she has been feeling short of breath for the past 2 days states she has a history of COPD and is chronically on 3 L nasal cannula. States she has been using her inhaler at home but states she has been feeling like she is more short of breath than normal she denies any fevers or chills she denies any chest pain abdominal pain nausea or vomiting. She does note history of anxiety and states she has been feeling anxious. States she has been using her albuterol inhaler Related Data Allergies Allergy/AdvReac Type Severity Reaction Status Date / Time No Known Allergies Allergy Verified 10/18/22 12:06 Review of Systems Review of Systems: Gen.: Denies fevers or chills ENT: Denies congestion Respiratory: See HPI CV: Denies chest pain or palpitations GI: Denies abdominal pain nausea, emesis or diarrhea Musculoskeletal: Denies back pain or muscle pain Neuro: Denies numbness, tingling, weakness or focal weakness Skin: Denies rash Psych: Reports anxiety Except as documented, all other systems reviewed and negative PMFSH Past Medical History Medical History Abnormal EKG EKG has previously shown ST elevation which appears to be early repolarization. Alcohol abuse Anorexia Anxiety Asthma B12 deficiency anemia Chronic anemia Chronic hyponatremia Chronic obstructive pulmonary disease Chronic respiratory failure with hypoxia and hypercapnia On trilogy unit at nighttime. 3 L nasal cannula during the day. Closed traumatic nondisplaced fracture of neck of right femur Closed traumatic nondisplaced fracture of proximal end of right humerus Cognitive impairment COPD with emphysema Gastroesophageal reflux disease Generalized anxiety disorder with panic attacks Person under investigation for COVID-19 Pulmonary cachexia due to chronic obstructive pulmonary disease Spontaneous pneumothorax (08/2012) Several pneumothoraces status post VATS procedure and apical blebectomy as well as pleurodesis. Tobacco abuse Quit in 2019 per patient report. Vitamin D deficiency Surgical History Surgical History History of bilateral tubal ligation History of section History of hip surgery (07/2019) ORIF of right hip fracture. History of tonsillectomy Status post thoracotomy Left-sided VATS procedure and apical bleb resection with pleurodesis. Family History Family History Father Acute myocardial infarction Father No problems noted. Unknown No problems noted. Mother Chronic obstructive pulmonary disease Sibling No problems noted. Social History Social History Social History: Surrogate medical decision maker: Ex- Neo Brooke or Manish Gardner, brother. The patient had 3 sons but one from drug overdose. The patient is a former smoker. She stated she quit last year. She has a recovering alcoholic. She denies any marijuana or illegal substances. Code status: Full code. Smoking packs per day: 2 Smoking cigarettes per day: 40.0 Years smoked: 45 Smoking pack-years: 90.00 Smoking status: Former smoker Tobacco type: cigarettes Second hand tobacco smoke exposure: Yes Alcohol intake: never Drinks per week: 6 Alcohol use details: Heavier drinker in the past. Substance use: never Substance use type: does not use Lack of Transportation: No Lack of Food: Never True Current Housing: I Have Housing Concerned About Future Housing: No Difficulty Paying Gas/Electric Bill
[2022-12-12] MEDS: ALBUTEROL SULFATE NEB 2.5 MG/3 ML INH INHALATION ×4 (00:51→20:41)
[2022-12-12] MEDS: IPRATROPIUM BR 0.02% INH SOLN 0.5 MG/2.5 ML VIAL INHALATION ×4 (00:51→20:41)
[2022-12-12] MEDS: SODIUM CHLORIDE 0.9% IV 500 ML 999 ML IV CONT (01:13)
[2022-12-12] MEDS: LORazepam INJ (*CRX) 2 MG/ML VIAL 0.5 MG IV PUSH (01:13)
[2022-12-12] MEDS: methylPREDNISolone SOD SUCC 125 MG VIAL IV PUSH (01:13)
[2022-12-12 01:28] LABS: Basophils Percent Auto 0.4 % (0.2-1.2); Eosinophils Percent Auto 0.3 % (0-4.4); Hematocrit 33.7 % (37.0-47.0); Hemoglobin 10.7 g/dL (12.0-15.0); Immature Granulocyte Absolute 0.01 K/mm3 (0.00-0.031); Immature Granulocyte Percent A 0.1 % (0-0.5); Lymphocytes Absolute Auto 0.46 K/mm3 (0.9-3.2); Lymphocytes Percent Auto 6.5 % (18.3-44.2); Mean Corpuscular HGB Conc 31.8 g/dl (32-36); Mean Corpuscular Hemoglobin 29.9 pg (26-34); Mean Corpuscular Volume 94.1 fl (80-100); Mean Platelet Volume 8.9 fl (7.4-10.4); Monocytes Absolute Auto 0.7 K/mm3 (0.1-0.6); Monocytes Percent Auto 9.6 % (2.6-8.5); Neutrophils Absolute Auto 5.9 K/mm3 (1.3-6.7); Neutrophils Percent Auto 83.1 % (45.5-73.1); Platelet Count Result 235 k/mm3 (150-375); Red Blood Count 3.58 M/mm3 (4.2-5.4); Red Cell Distribution Width 12.1 % (11.5-14.5); White Blood Count 7.1 K/mm3 (4.5-10.0)
[2022-12-12 01:44] LABS: Alanine Aminotransferase 27 U/L (6-35); Albumin Level 4.2 g/dL (3.5-5.1); Alkaline Phosphatase 87 U/L (38-126); Anion Gap 6 mmol/L (8-16); Aspartate Amino Transferase 67 U/L (14-36); Bilirubin,Total 0.3 mg/dL (0.2-1.3); Blood Urea Nitrogen 5 mg/dL (7-17); Calcium 7.9 mg/dL (8.4-10.2); Carbon Dioxide 39 mmol/L (22-30); Chloride 83 mmol/L (98-107); Estimated CRCL calculation 100 ml/min; Estimated Glomerular Filt Rate > 60; Glucose 121 mg/dL (65-110); Potassium 3.2 mmol/L (3.4-5.0); Sodium 128 mmol/L (137-145)
[2022-12-12 02:03] LABS: Influenza A QL RT-PCR Negative (Negative); Influenza B QL RT-PCR Negative (Negative); RSV RNA, RT-PCR Negative (Negative); SARS-CoV-2 RNA PCR Positive
[2022-12-12] MEDS: POTASSIUM CHLORIDE 20 MEQ TABLET PO (02:12)
[2022-12-12 03:11] LABS: Alveolar/Arterial O2 Gradient 60.8 mmHg; Base Excess ABG 10.8 mEq/l (+/-2.0); Carboxyhemoglobin 0.3 % THb (0-2.0); Fractional Inspired Oxygen 36 %; Methemoglobin ABG 0.4 %THb (0-1.5); Oxygen Content ABG 14.3 %vol (16.0-22.0); Oxygen Saturation ABG 97.4 % (95.0-100.0); Oxyhemoglobin 96.3 % THb (90.0-100.0); PO2 ABG 107.8 mmHg (80.0-100.0); PO2 FiO2 Ratio Arterial Blood 2.99 %; Total Hemoglobin 10.4 g/dL (12.0-18.0); pH ABG 7.329 (7.350-7.450)
[2022-12-12 03:12] LABS: Device NASAL CANNULA; Modified Allen's Test Pass; PCO2 ABG 75.9 mmHg (35.0-45.0); Site Drawn RIGHT RADIAL
[2022-12-12 06:09] LABS: Alveolar/Arterial O2 Gradient 86.6 mmHg; Base Excess ABG 11.3 mEq/l (+/-2.0); Carboxyhemoglobin 0.3 % THb (0-2.0); Fractional Inspired Oxygen 36 %; HCO3 ABG 39.5 mEq/l (22.0-26.0); Methemoglobin ABG 0.5 %THb (0-1.5); Oxygen Content ABG 15.1 %vol (16.0-22.0); Oxygen Saturation ABG 95.3 % (95.0-100.0); Oxyhemoglobin 94.5 % THb (90.0-100.0); PO2 ABG 84.2 mmHg (80.0-100.0); PO2 FiO2 Ratio Arterial Blood 2.34 %; Reduced Hemoglobin 4.7 %THb (0-5.0); Total Hemoglobin 11.3 g/dL (12.0-18.0); pH ABG 7.345 (7.350-7.450)
[2022-12-12 06:12] LABS: Device NON-INVASIVE VENT; Modified Allen's Test Pass; Site Drawn LEFT RADIAL
[2022-12-12 06:13] LABS: Non-Invasive Expiratory Pressure 8 CMH2O; Non-Invasive Inspiratory Pressure 14 CMH2O; Non-Invasive Vent Rate 18 /MIN
--- NOTE | 2022-12-12 08:13 | PM.IMHP ---
H&P: HPI History of Present Illness Date/Time: 12/12/22 08:13 Chief Complaint: Shortness of breath Narrative: This is a 49-year-old female presents to the ER with shortness of breath. She has been feeling short of breath past 2 days and history of COPD and has been on oxygen chronically at 3 L oxygen via nasal cannula. She has been using her inhaler at home but has been feeling wheezy and short of breath and hence came to the ER for evaluation. She denies any fever or chills. She does have history of anxiety and takes alprazolam. In the ER she was noted to be in sinus tachycardia with a rate of 137. Chest x-ray reveals severe COPD pattern with no significant change in the prior exam. She was tested positive for COVID. while in the ER she was noted to have respiratory distress and hospital put on BiPAP. Her ABG also showed respiratory acidosis with ABG 7.32/ 75/107/39. Is feeling little better today and wants to be off of BiPAP this morning. Review of Systems Review of Systems: - CONSTITUTIONAL: Denies weight loss, fever and chills. - HEENT: Denies changes in vision and hearing - RESPIRATORY: Reports SOB and cough. - CV: Denies palpitations and CP. - GI: Denies abdominal pain, nausea, vomiting and diarrhea. - : Denies dysuria and urinary frequency. - MSK: Denies myalgia and joint pain. - SKIN: Denies rash and pruritus. - NEUROLOGICAL: Denies headache and syncope. - PSYCHIATRIC: Denies recent changes in mood. Denies anxiety and depression. [facility] Past Medical History Medical History Abnormal EKG EKG has previously shown ST elevation which appears to be early repolarization. Alcohol abuse Anorexia Anxiety Asthma B12 deficiency anemia Chronic anemia Chronic hyponatremia Chronic obstructive pulmonary disease Chronic respiratory failure with hypoxia and hypercapnia On trilogy unit at nighttime. 3 L nasal cannula during the day. Closed traumatic nondisplaced fracture of neck of right femur Closed traumatic nondisplaced fracture of proximal end of right humerus Cognitive impairment COPD with emphysema Gastroesophageal reflux disease Generalized anxiety disorder with panic attacks Person under investigation for COVID-19 Pulmonary cachexia due to chronic obstructive pulmonary disease Spontaneous pneumothorax (08/2012) Several pneumothoraces status post VATS procedure and apical blebectomy as well as pleurodesis. Tobacco abuse Quit in 2019 per patient report. Vitamin D deficiency Surgical History Surgical History History of bilateral tubal ligation History of section History of hip surgery (07/2019) ORIF of right hip fracture. History of tonsillectomy Status post thoracotomy Left-sided VATS procedure and apical bleb resection with pleurodesis. Family History Family History Father Acute myocardial infarction Father No problems noted. Unknown No problems noted. Mother Chronic obstructive pulmonary disease Sibling No problems noted. Social History Social History Social History: Surrogate medical decision maker: Ex- Neo Brooke or Manish Gardner, brother. The patient had 3 sons but one from drug overdose. The patient is a former smoker. She stated she quit last year. She has a recovering alcoholic. She denies any marijuana or illegal substances. Code status: Full code. Smoking packs per day: 2 Smoking cigarettes per day: 40.0 Years smoked: 45 Smoking pack-years: 90.00 Smoking status: Former smoker Tobacco type: cigarettes Second hand tobacco smoke exposure: Yes Alcohol intake: current Drinks per week: 1 Alcohol use details: Heavier drinker in the past. Substance use: never Substance use type: does
--- NOTE | 2022-12-12 09:57 | ADMGEN ---
This patient, Esther Brink, was admitted to IMU Room 202-01 at 0810. Patient/family oriented to hospital policies and general routines including ID bracelet, bed and alarms, visiting hours, pain management, procedures, bathroom and other care routines, personal items, smoking policy, room service/diet, and visiting hours. Information on how to activate the Rapid Response Team has been discussed. Patient/Family are encouraged to report perceived risks to care and to ask questions if they do not understand what they are told or what they should do.
[2022-12-12] MEDS: ALPRAZolam (*CRX) 0.25 MG TABLET PO (14:03)
[2022-12-12] MEDS: methylPREDNISolone SOD SUCC 125 MG VIAL 60 MG IV PUSH (14:03)
[2022-12-12 16:20] LABS: INR 0.9; Prothrombin Time 11.4 Seconds (11.1-14.7)
[2022-12-12 16:23] LABS: Alanine Aminotransferase 22 U/L (6-35); Estimated CRCL calculation 66 ml/min; Estimated Glomerular Filt Rate > 60
[2022-12-12] MEDS: REMDESIVIR 200 MG/NS 250 ML 200 MG/250 ML BAG 250 MG IVPB (16:50)
[2022-12-12] MEDS: FLUTICASONE/SALMETEROL 115-21 MCG INHALER 1 PUFF 2 PUFF INHALATION (20:41)
[2022-12-13] VITALS (20 sets, daily range): BP systolic 93–112; BP diastolic 54–78; PULSE 75–128; RESP 18–24; TEMP 36.5–37.2; O2SAT 94–100
--- NOTE | 2022-12-13 00:58 | PC.NURSE ---
According to pt chart they left the ER at 0810 on 12/12. Still on tracker at 0059 on 12/13. Charted off by this RN.
[2022-12-13] MEDS: IPRATROPIUM BR 0.02% INH SOLN 0.5 MG/2.5 ML VIAL INHALATION ×4 (03:07→19:55)
[2022-12-13] MEDS: ALBUTEROL SULFATE NEB 2.5 MG/3 ML INH INHALATION ×4 (03:07→19:55)
[2022-12-13] MEDS: ALPRAZolam (*CRX) 0.25 MG TABLET PO ×3 (03:57→14:22)
[2022-12-13 04:39] LABS: Base Excess ABG 10.7 mEq/l (+/-2.0); Carboxyhemoglobin 0.3 % THb (0-2.0); Fractional Inspired Oxygen 36 %; HCO3 ABG 38.5 mEq/l (22.0-26.0); Methemoglobin ABG 0.3 %THb (0-1.5); Oxygen Content ABG 15.3 %vol (16.0-22.0); Oxygen Saturation ABG 96.4 % (95.0-100.0); Oxyhemoglobin 95.6 % THb (90.0-100.0); PO2 FiO2 Ratio Arterial Blood 2.56 %; Reduced Hemoglobin 3.8 %THb (0-5.0); Total Hemoglobin 11.3 g/dL (12.0-18.0); pH ABG 7.356 (7.350-7.450)
[2022-12-13 04:42] LABS: Device NON-INVASIVE VENT; PCO2 ABG 70.4 mmHg (35.0-45.0); Site Drawn RIGHT BRACHIAL
[2022-12-13 04:43] LABS: Non-Invasive Expiratory Pressure 8 CMH2O; Non-Invasive Inspiratory Pressure 14 CMH2O; Non-Invasive Vent Rate 18 /MIN
[2022-12-13 04:50] LABS: Hematocrit 29.9 % (37.0-47.0); Hemoglobin 9.5 g/dL (12.0-15.0); Immature Granulocyte Absolute 0.01 K/mm3 (0.00-0.031); Immature Granulocyte Percent A 0.2 % (0-0.5); Lymphocytes Absolute Auto 0.47 K/mm3 (0.9-3.2); Mean Corpuscular HGB Conc 31.8 g/dl (32-36); Mean Corpuscular Volume 97.7 fl (80-100); Mean Platelet Volume 9.1 fl (7.4-10.4); Monocytes Absolute Auto 0.7 K/mm3 (0.1-0.6); Monocytes Percent Auto 14.7 % (2.6-8.5); Neutrophils Absolute Auto 3.5 K/mm3 (1.3-6.7); Neutrophils Percent Auto 75.1 % (45.5-73.1); Platelet Count Result 241 k/mm3 (150-375); Red Blood Count 3.06 M/mm3 (4.2-5.4); Red Cell Distribution Width 12.6 % (11.5-14.5); White Blood Count 4.7 K/mm3 (4.5-10.0)
[2022-12-13 04:59] LABS: INR 0.8; Prothrombin Time 11.1 Seconds (11.1-14.7)
[2022-12-13 05:12] LABS: Alanine Aminotransferase 20 U/L (6-35); Albumin Level 3.3 g/dL (3.5-5.1); Alkaline Phosphatase 79 U/L (38-126); Aspartate Amino Transferase 41 U/L (14-36); Bilirubin,Total 0.2 mg/dL (0.2-1.3); Blood Urea Nitrogen 6 mg/dL (7-17); Carbon Dioxide > 40 mmol/L (22-30); Chloride 93 mmol/L (98-107); Estimated CRCL calculation 85 ml/min; Estimated Glomerular Filt Rate > 60; Glucose 103 mg/dL (65-110); Potassium 3.1 mmol/L (3.4-5.0); Sodium 136 mmol/L (137-145)
[2022-12-13] MEDS: FLUTICASONE/SALMETEROL 115-21 MCG INHALER 1 PUFF 2 PUFF INHALATION ×2 (07:22→20:12)
[2022-12-13] MEDS: ENOXAPARIN 40 MG/0.4 ML SYRINGE SUB-Q (10:17)
[2022-12-13] MEDS: ROFLUMILAST 500 MCG TABLET PO (10:17)
--- NOTE | 2022-12-13 13:40 | PM.IMPN ---
Progress Note: A&P Assessment and Plan (1) Acute on chronic respiratory failure with hypoxia and hypercapnia: Code(s): J96.21 - Acute and chronic respiratory failure with hypoxia; J96.22 - Acute and chronic respiratory failure with hypercapnia Status: Acute (2) Acute hyponatremia: Code(s): E87.1 - Hypo-osmolality and hyponatremia Status: Acute (3) COVID-19: Code(s): U07.1 - COVID-19 Status: Acute (4) Acute hypokalemia: Code(s): E87.6 - Hypokalemia Status: Acute (5) NSVT (nonsustained ventricular tachycardia): Code(s): I47.29 - Other ventricular tachycardia Status: Acute (6) Congestive heart failure: Code(s): I50.9 - Heart failure, unspecified Status: Acute (7) Nonischemic cardiomyopathy: Code(s): I42.8 - Other cardiomyopathies Status: Chronic (8) Gastroesophageal reflux disease: Code(s): K21.9 - Gastro-esophageal reflux disease without esophagitis Status: Acute (9) Normocytic anemia: Code(s): D64.9 - Anemia, unspecified Status: Chronic (10) Tachycardia: Code(s): R00.0 - Tachycardia, unspecified Status: Acute (11) Alcohol abuse: Code(s): F10.10 - Alcohol abuse, uncomplicated Status: Acute (12) Atrial fibrillation: Qualifiers: Atrial fibrillation type: unspecified Qualified Code(s): I48.91 - Unspecified atrial fibrillation Code(s): I48.91 - Unspecified atrial fibrillation Status: Acute Plan #Acute on chronic hypoxic and hypercapnic respiratory failure needing BiPAP treatment in the ER tachycardic and tachypneic on presentation. Improved with BiPAP treatment. AB.32/7 5/107/39. Repeat ABG this a.m. 7.35/70/92. #Hyponatremia mild continue to monitor. Sodium level stable #COVID-19 infection chest x-ray with no acute process . with hypoxia S started on remdesivir and Decadron #Hypokalemia replace and monitor #COPD exacerbation Solu Medrol order has been placed. Will switch to Decadron and remdesivir for COVID treatment as well #Chronic respiratory failure with hypoxia on 3 L nasal cannula oxygen chronically #Mild anemia normocytic normochromic #Chronic systolic diastolic congestive heart failure EF 40-45% 03/202222 grade 1 diastolic dysfunction #Tachycardia: EKG with sinus tachycardia. Improved with treatment for COPD. #Chronic severe compression fracture of T6 # anxiety disorder alprazolam which is resumed # DVT prophylaxis Lovenox # code status full code Subjective Date/time seen: 12/13/22 13:40 Interval history: Feels better. On oxygen supplementation at home level. Did not require any further BiPAP. Has some cough and not able to cough out Review of Systems Review of Systems: All systems reviewed & are unremarkable except as noted in HPI and below Exam Narrative: APPEARANCE:? No acute distress, nontoxic, resting in bed oxygen via nasal cannula EYES: EOMI HEENT: Normocephalic, atraumatic, OMM RESPIRATORY: No respiratory distress, coarse breath sounds bilaterally no wheezes heard CARDIOVASCULAR: Regular rate and rhythm without murmurs rubs or gallops. ABDOMINAL: Soft, nontender, nondistended, no rebound or guarding MUSCULOSKELETAl: Moves all extremities. No clubbing, cyanosis or edema. NEURO: Awake and alert. Following commands, speech normal, no focal deficits SKIN:: Warm, dry. No rashes lesions or abrasions PSYCHIATRIC: Normal affect/mood, Objective Data Vital Signs Vital Signs: Vital Signs - 24 hr 12/12/22 14:45 12/12/22 14:54 12/12/22 16:00 Temperature 98.6 F Pulse Rate 100 103 H 99 Respiratory Rate 20 20 28 H Blood Pressure 111/69 Pulse Oximetry 98 Oxygen Delivery Oxygen Flow Rate 12/12/22 16:00 12/12/22 16:00 12/12/22 17:55 Temperature Pulse Rate 112 H 91 Respiratory Rate Blood Pressure Pulse Oximetry 99 Oxygen Delivery Nasal Cannula Oxygen Flow Rate 3 12/12/22 20
[2022-12-13] MEDS: POTASSIUM CHLORIDE 20 MEQ TABLET 40 MEQ PO (14:22)
--- NOTE | 2022-12-13 15:00 | PC.NURSE ---
This patient, Esther Brink, was transferred to [facility] on 12/13/22 at 1500. Personal belongings sent with patient. Report given to Natasha KAY. Appropriate documentation sent with patient.
[2022-12-13] MEDS: DORNASE ALFA INH SOLN 1 MG/ML 2.5 ML AMP 2.5 MG INHALATION (19:55)
[2022-12-13] MEDS: REMDESIVIR 100 MG/NS 250 ML 100 MG/250 ML BAG 250 MG IVPB (21:49)
[2022-12-13] MEDS: guaiFENesin 12 HR 600 MG TABCR PO (21:49)
[2022-12-14] VITALS (17 sets, daily range): BP systolic 90–100; BP diastolic 54–63; PULSE 92–106; RESP 16–20; TEMP 36.4–36.8; O2SAT 94–100
[2022-12-14] MEDS: ALBUTEROL SULFATE NEB 2.5 MG/3 ML INH INHALATION ×4 (00:49→20:40)
[2022-12-14] MEDS: IPRATROPIUM BR 0.02% INH SOLN 0.5 MG/2.5 ML VIAL INHALATION ×4 (00:49→20:40)
[2022-12-14 05:25] LABS: INR 0.9; Prothrombin Time 11.7 Seconds (11.1-14.7)
[2022-12-14 05:32] LABS: Alanine Aminotransferase 20 U/L (6-35); Estimated CRCL calculation 85 ml/min; Estimated Glomerular Filt Rate > 60
[2022-12-14] MEDS: DORNASE ALFA INH SOLN 1 MG/ML 2.5 ML AMP 2.5 MG INHALATION ×2 (08:03→20:40)
[2022-12-14] MEDS: FLUTICASONE/SALMETEROL 115-21 MCG INHALER 1 PUFF 2 PUFF INHALATION ×2 (08:03→20:40)
[2022-12-14] MEDS: ROFLUMILAST 500 MCG TABLET PO (08:45)
[2022-12-14] MEDS: ALPRAZolam (*CRX) 0.25 MG TABLET PO ×3 (08:45→21:24)
[2022-12-14] MEDS: guaiFENesin 12 HR 600 MG TABCR PO ×2 (08:45→21:23)
[2022-12-14] MEDS: ENOXAPARIN 40 MG/0.4 ML SYRINGE SUB-Q (08:45)
--- NOTE | 2022-12-14 15:00 | PM.IMPN ---
Progress Note: A&P Assessment and Plan (1) Acute on chronic respiratory failure with hypoxia and hypercapnia: Code(s): J96.21 - Acute and chronic respiratory failure with hypoxia; J96.22 - Acute and chronic respiratory failure with hypercapnia Status: Acute (2) Acute hyponatremia: Code(s): E87.1 - Hypo-osmolality and hyponatremia Status: Acute (3) COVID-19: Code(s): U07.1 - COVID-19 Status: Acute (4) Acute hypokalemia: Code(s): E87.6 - Hypokalemia Status: Acute (5) NSVT (nonsustained ventricular tachycardia): Code(s): I47.29 - Other ventricular tachycardia Status: Acute (6) Congestive heart failure: Code(s): I50.9 - Heart failure, unspecified Status: Acute (7) Nonischemic cardiomyopathy: Code(s): I42.8 - Other cardiomyopathies Status: Chronic (8) Gastroesophageal reflux disease: Code(s): K21.9 - Gastro-esophageal reflux disease without esophagitis Status: Acute (9) Normocytic anemia: Code(s): D64.9 - Anemia, unspecified Status: Chronic (10) Tachycardia: Code(s): R00.0 - Tachycardia, unspecified Status: Acute (11) Alcohol abuse: Code(s): F10.10 - Alcohol abuse, uncomplicated Status: Acute (12) Atrial fibrillation: Qualifiers: Atrial fibrillation type: unspecified Qualified Code(s): I48.91 - Unspecified atrial fibrillation Code(s): I48.91 - Unspecified atrial fibrillation Status: Acute Plan #Acute on chronic hypoxic and hypercapnic respiratory failure needing BiPAP treatment in the ER tachycardic and tachypneic on presentation. Improved with BiPAP treatment. AB.32/7 5/107/39. Repeat ABG this a.m. 7.35/70/92. has chronic hypercapnia. Been on trilogy home. Will restart that. AVAPS mode #Hyponatremia mild continue to monitor. Sodium level stable #COVID-19 infection chest x-ray with no acute process . with hypoxia S started on remdesivir day 3 and Decadron #Hypokalemia replace and monitor #COPD exacerbation Solu Medrol order has been placed. started on Decadron and remdesivir for COVID treatment as well #Chronic respiratory failure with hypoxia on 3 L nasal cannula oxygen chronically #Mild anemia normocytic normochromic #Chronic systolic diastolic congestive heart failure EF 40-45% 03/202222 grade 1 diastolic dysfunction #Tachycardia: EKG with sinus tachycardia. Improved with treatment for COPD. #Chronic severe compression fracture of T6 # anxiety disorder alprazolam which is resumed # DVT prophylaxis Lovenox # code status full code Subjective Date/time seen: 12/14/22 15:00 Interval history: no overnight events, feels better. For however feels anxious and shaky minimal cough. Did not use her BiPAP last night. Review of Systems Review of Systems: All systems reviewed & are unremarkable except as noted in HPI and below Exam Narrative: APPEARANCE:? No acute distress, nontoxic, on oxygen via nasal cannula EYES: EOMI HEENT: Normocephalic, atraumatic, OMM RESPIRATORY: No respiratory distress, coarse breath sounds bilaterally no wheezes heard CARDIOVASCULAR: Regular rate and rhythm without murmurs rubs or gallops. ABDOMINAL: Soft, nontender, nondistended, no rebound or guarding MUSCULOSKELETAl: Moves all extremities. No clubbing, cyanosis or edema. NEURO: Awake and alert. Following commands, speech normal, no focal deficits SKIN:: Warm, dry. No rashes lesions or abrasions PSYCHIATRIC: Normal affect/mood, Objective Data Vital Signs Vital Signs: Vital Signs - 24 hr 12/13/22 15:17 12/13/22 17:25 12/13/22 20:06 Temperature 97.8 F Pulse Rate 128 H 121 H 101 H Respiratory Rate 18 18 Blood Pressure 106/77 Pulse Oximetry 99 96 Oxygen Delivery Oxygen Flow Rate 12/13/22 20:07 12/13/22 20:19 12/13/22 20:00 Temperature 98.3 F Pulse Rate 98 128 H Respiratory Rate 18 20 Blood Pressure 112/78 Pulse
[2022-12-14] MEDS: REMDESIVIR 100 MG/NS 250 ML 100 MG/250 ML BAG 250 MG IVPB (21:24)
[2022-12-15] VITALS (18 sets, daily range): BP systolic 84–104; BP diastolic 53–69; PULSE 87–109; RESP 18–26; TEMP 36.4–37.2; O2SAT 95–100
[2022-12-15] MEDS: IPRATROPIUM BR 0.02% INH SOLN 0.5 MG/2.5 ML VIAL INHALATION ×2 (01:48→08:25)
[2022-12-15] MEDS: ALBUTEROL SULFATE NEB 2.5 MG/3 ML INH INHALATION ×2 (01:48→08:25)
[2022-12-15 05:43] LABS: INR 0.9; Prothrombin Time 11.6 Seconds (11.1-14.7)
[2022-12-15 06:02] LABS: Alanine Aminotransferase 17 U/L (6-35); Estimated CRCL calculation 82 ml/min; Estimated Glomerular Filt Rate > 60
[2022-12-15] MEDS: ALPRAZolam (*CRX) 0.25 MG TABLET PO ×3 (07:46→22:55)
[2022-12-15] MEDS: FLUTICASONE/SALMETEROL 115-21 MCG INHALER 1 PUFF 2 PUFF INHALATION ×2 (08:24→19:55)
[2022-12-15] MEDS: DORNASE ALFA INH SOLN 1 MG/ML 2.5 ML AMP 2.5 MG INHALATION (08:28)
[2022-12-15] MEDS: guaiFENesin 12 HR 600 MG TABCR PO ×2 (08:47→21:11)
[2022-12-15] MEDS: ROFLUMILAST 500 MCG TABLET PO (08:48)
[2022-12-15] MEDS: ENOXAPARIN 40 MG/0.4 ML SYRINGE SUB-Q (08:48)
--- NOTE | 2022-12-15 11:53 | PM.IMPN ---
Progress Note: A&P Assessment and Plan (1) Acute on chronic respiratory failure with hypoxia and hypercapnia: Code(s): J96.21 - Acute and chronic respiratory failure with hypoxia; J96.22 - Acute and chronic respiratory failure with hypercapnia Status: Acute (2) Acute hyponatremia: Code(s): E87.1 - Hypo-osmolality and hyponatremia Status: Acute (3) COVID-19: Code(s): U07.1 - COVID-19 Status: Acute (4) Acute hypokalemia: Code(s): E87.6 - Hypokalemia Status: Acute (5) NSVT (nonsustained ventricular tachycardia): Code(s): I47.29 - Other ventricular tachycardia Status: Acute (6) Congestive heart failure: Code(s): I50.9 - Heart failure, unspecified Status: Acute (7) Nonischemic cardiomyopathy: Code(s): I42.8 - Other cardiomyopathies Status: Chronic (8) Gastroesophageal reflux disease: Code(s): K21.9 - Gastro-esophageal reflux disease without esophagitis Status: Acute (9) Normocytic anemia: Code(s): D64.9 - Anemia, unspecified Status: Chronic (10) Tachycardia: Code(s): R00.0 - Tachycardia, unspecified Status: Acute (11) Alcohol abuse: Code(s): F10.10 - Alcohol abuse, uncomplicated Status: Acute (12) Atrial fibrillation: Qualifiers: Atrial fibrillation type: unspecified Qualified Code(s): I48.91 - Unspecified atrial fibrillation Code(s): I48.91 - Unspecified atrial fibrillation Status: Acute Plan #Acute on chronic hypoxic and hypercapnic respiratory failure needing BiPAP treatment in the ER tachycardic and tachypneic on presentation. Improved with BiPAP treatment. AB.32/7 5/107/39. Repeat ABG this a.m. 7.35/70/92. has chronic hypercapnia. Been on trilogy home. Started back on AVAPS mode as previously prescribed. Pulmonary consulted today with regard to chronic vent therapy #Hyponatremia mild continue to monitor. Sodium level stable #COVID-19 infection chest x-ray with no acute process . with hypoxia S started on remdesivir day 4 and Decadron. concludes remdesivir tomorrow #Hypokalemia replace and monitor #COPD exacerbation Solu Medrol order has been placed. started on Decadron and remdesivir for COVID treatment as well #Chronic respiratory failure with hypoxia on 3 L nasal cannula oxygen chronically #Mild anemia normocytic normochromic #Chronic systolic diastolic congestive heart failure EF 40-45% 03/202222 grade 1 diastolic dysfunction #Tachycardia: EKG with sinus tachycardia. Improved with treatment for COPD. #Chronic severe compression fracture of T6 # anxiety disorder alprazolam which is resumed # DVT prophylaxis Lovenox # code status full code Subjective Date/time seen: 12/15/22 11:53 Interval history: see were her AVAPS last night. Feels suffocated. She is claustrophobic. Breathing is otherwise feeling better. No chest pain. Minimal cough. Review of Systems Review of Systems: All systems reviewed & are unremarkable except as noted in HPI and below Exam Narrative: APPEARANCE:? No acute distress, nontoxic, on oxygen via nasal cannula EYES: EOMI HEENT: Normocephalic, atraumatic, OMM RESPIRATORY: No respiratory distress, coarse breath sounds bilaterally no wheezes heard CARDIOVASCULAR: Regular rate and rhythm without murmurs rubs or gallops. ABDOMINAL: Soft, nontender, nondistended, no rebound or guarding MUSCULOSKELETAl: Moves all extremities. No clubbing, cyanosis or edema. NEURO: Awake and alert. Following commands, speech normal, no focal deficits SKIN:: Warm, dry. No rashes lesions or abrasions PSYCHIATRIC: Normal affect/mood, Objective Data Vital Signs Vital Signs: Vital Signs - 24 hr 12/14/22 12:00 12/14/22 13:54 12/14/22 14:01 Temperature 97.6 F Pulse Rate 100 95 96 Respiratory Rate 18 18 18 Blood Pressure 99/63 L Pulse Oximetry 98 Oxygen Delivery Oxygen Flow Rate Fraction of Inspi
[2022-12-15 12:23] LABS: D Dimer 0.33 ug/mL (<0.48)
--- NOTE | 2022-12-15 14:34 | PCRCNOTE ---
Pt found with home albuterol inhaler at bedside. Assisted pt with this medication in place of HHN per pt request. Spacer used. Pt counseled on adverse reactions to overuse of this home medication and made RN aware. Pt states she has not used recently. Pt is very anxious at this time. PLB and energy conservation techniques taught as well.
--- NOTE | 2022-12-15 14:40 | PC.NURSE ---
pt off floor for CT
--- NOTE | 2022-12-15 15:28 | PM.CNPUL ---
Assessment and Plan Assessment and plan (1) COVID-19: Code(s): U07.1 - COVID-19 Status: Acute Assessment and Plan: Patient presented on 12/12/2022 with 2 days worsening shortness of breath and dyspnea on exertion tested positive for cope id in the emergency department. Chest x-ray was negative. CT scan of the chest on 12/15/2022 shows no focal infiltrates. Patient required BiPAP treatment initially. 12/15 The patient tells me she is back to her normal breathing. She has a normal cough and mucus production for her. She denies hemoptysis, chills, sweats or pains. patient is on 2 L nasal cannula saturations 99%. She was able to tolerate noninvasive ventilator with an APAP mode last night for few hours. Today is day 4 of Remdesivir and dexamethasone. Will continue for 5 days and then discontinue. At baseline patient is on 3 L rest, 4 L with ambulation and 3-4 L when she sleeps. If the patient remains clinically stable overnight will discharge on 12/16/2022 on these pulmonary medications: Advair Diskus 250-50 at 1 inhalation b.i.d. Spiriva Respimat 2.5 mcg at 1 puff b.i.d. Daliresp 500 mg p.o. q.day Albuterol 2 puffs q.i.d. p.r.n. shortness of breath or wheezing Albuterol nebulizer 2.5 mg q.i.d. p.r.n. shortness of breath or wheezing Oxygen perform a home O2 assessment on 12/16 which I have ordered today. (2) COPD (chronic obstructive pulmonary disease): Code(s): J44.9 - Chronic obstructive pulmonary disease, unspecified Status: Acute Assessment and Plan: Patient has covered pneumonia but has no wheezing and I do not believe this is a COPD exacerbation. D-dimer is negative. Patient is maintained on Advair 250-50 a 1 inhalation a day, Daliresp 500 mg p.o. q.day and rescue albuterol. Continue Advair HFA 115-21 at 2 puffs q.12 hours, I will discontinue albuterol and ipratropium nebulizers at this time. Will continue Daliresp 500 mg q.day. Patient is on dexamethasone 6 mg IV. Continue Mucinex 600 mg p.o. q.12 hours. I will discontinue dornase 2.5 mg nebulized q.12 hours. (3) Acute on chronic respiratory failure with hypoxia and hypercapnia: Code(s): J96.21 - Acute and chronic respiratory failure with hypoxia; J96.22 - Acute and chronic respiratory failure with hypercapnia Status: Acute Assessment and Plan: 08/27/22 (from pulmonary clinic note) - This week we were contacted by Kelly from [facility] stating patient has used her Trilogy only 54 hours in the last 2 months. She refuses to wear the mask, just holds it up to her face, will not put headgear on due to claustrophobia and feeling anxious. Kelly suggested trying a mouth piece ventilation mask. This would be for use during the day, she would not be able to sleep with mouth piece ventilation. This requires changing her Trilogy settings to allow assist control. Discussed case with Dr Melendez who spoke with Kelly from [facility] over the phone 08/25/22. Order was faxed back to [facility] to allow for new Trilogy settings giving the patient capability to use mouth piece ventilation during the day. VC mouth piece ventilation - tidal volume 150 to 250, PEEP 5-15, breath rate 6-12, inspiratory time 0.5-1.5 for use during the daytime hours. Also allow for AVAPS-AE mode still available for night time use if RT finds appropriate; tidal volume 150-500; breath rate and inspiratory time set to auto; PS minimum 1-5, PS maximum 20-30, EPAP minimum 1-5, EPAP maximum 8-15, AVAPS Speed 1-5, maximum pressure 25-40. With supplemental oxygen 3L/min. 12/15 She was on AVAPS rate of 12, tidal volume 250, minimum EPAP 5, minimum pressure support 6, maximum pressure support 20, inspiratory time 1, rise of 3 and 32% FiO2. And tolerated this for a few hours last night. I have a download from [facility] from 09/03 through 11/05/2022 and the patient has used the machine a total of 3 nights. Longus she has used the machine was approximately 2 hours. No
[2022-12-15] MEDS: REMDESIVIR 100 MG/NS 250 ML 100 MG/250 ML BAG 250 MG IVPB (21:11)
[2022-12-16] VITALS (10 sets, daily range): BP systolic 94–112; BP diastolic 50–73; PULSE 75–113; RESP 16–21; TEMP 36.2–36.9; O2SAT 89–100
[2022-12-16] MEDS: ALPRAZolam (*CRX) 0.25 MG TABLET PO ×2 (04:30→15:27)
[2022-12-16 05:57] LABS: Basophils Percent Auto 0.2 % (0.2-1.2); Eosinophils Percent Auto 0.2 % (0-4.4); Hematocrit 32.8 % (37.0-47.0); Hemoglobin 10.2 g/dL (12.0-15.0); Immature Granulocyte Absolute 0.01 K/mm3 (0.00-0.031); Immature Granulocyte Percent A 0.2 % (0-0.5); Lymphocytes Absolute Auto 1.06 K/mm3 (0.9-3.2); Lymphocytes Percent Auto 25.1 % (18.3-44.2); Mean Corpuscular HGB Conc 31.1 g/dl (32-36); Mean Corpuscular Volume 99.7 fl (80-100); Mean Platelet Volume 8.8 fl (7.4-10.4); Monocytes Absolute Auto 0.5 K/mm3 (0.1-0.6); Monocytes Percent Auto 10.9 % (2.6-8.5); Neutrophils Absolute Auto 2.7 K/mm3 (1.3-6.7); Neutrophils Percent Auto 63.4 % (45.5-73.1); Platelet Count Result 297 k/mm3 (150-375); Red Blood Count 3.29 M/mm3 (4.2-5.4); Red Cell Distribution Width 13.1 % (11.5-14.5); White Blood Count 4.2 K/mm3 (4.5-10.0)
[2022-12-16 06:03] LABS: INR 0.9; Prothrombin Time 11.7 Seconds (11.1-14.7)
[2022-12-16 06:15] LABS: Alanine Aminotransferase 19 U/L (6-35); Albumin Level 3.5 g/dL (3.5-5.1); Alkaline Phosphatase 75 U/L (38-126); Aspartate Amino Transferase 26 U/L (14-36); Bilirubin,Total 0.3 mg/dL (0.2-1.3); Blood Urea Nitrogen 11 mg/dL (7-17); Calcium 8.5 mg/dL (8.4-10.2); Carbon Dioxide > 40 mmol/L (22-30); Chloride 88 mmol/L (98-107); Estimated CRCL calculation 63 ml/min; Estimated Glomerular Filt Rate > 60; Glucose 124 mg/dL (65-110); Magnesium 1.8 mg/dL (1.6-2.3); Potassium 3.9 mmol/L (3.4-5.0); Sodium 130 mmol/L (137-145)
[2022-12-16] MEDS: ENOXAPARIN 40 MG/0.4 ML SYRINGE SUB-Q (08:30)
[2022-12-16] MEDS: guaiFENesin 12 HR 600 MG TABCR PO (08:30)
[2022-12-16] MEDS: ROFLUMILAST 500 MCG TABLET PO (08:30)
[2022-12-16] MEDS: FLUTICASONE/SALMETEROL 115-21 MCG INHALER 1 PUFF 2 PUFF INHALATION (09:18)
--- NOTE | 2022-12-16 10:18 | PM.PNPUL ---
Progress Note: A&P Assessment and Plan (1) COVID-19: Code(s): U07.1 - COVID-19 Status: Acute Assessment and Plan: Patient presented on 12/12/2022 with 2 days worsening shortness of breath and dyspnea on exertion tested positive for cope id in the emergency department. Chest x-ray was negative. CT scan of the chest on 12/15/2022 shows no focal infiltrates. Patient required BiPAP treatment initially. 12/15 The patient tells me she is back to her normal breathing. She has a normal cough and mucus production for her. She denies hemoptysis, chills, sweats or pains. patient is on 2 L nasal cannula saturations 99%. She was able to tolerate noninvasive ventilator with an APAP mode last night for few hours. Today is day 4 of Remdesivir and dexamethasone. Will continue for 5 days and then discontinue. At baseline patient is on 3 L rest, 4 L with ambulation and 3-4 L when she sleeps. 12/16 Patient is scheduled to receive her 5th dose of REM de severe and dexamethasone today. Would try to give her dose of REM de severe early so she can go home in the late afternoon. From a pulmonary perspective she is stable to be discharged on these pulmonary medications: Advair Diskus 250-50 at 1 inhalation b.i.d. Incruse ellipta 62.5 mcg at 1 puff q.day Daliresp 500 mg p.o. q.day Mucinex 600 mg PO Q 12 hours PRN Cornet flutter valve Q 4 hours while awake Albuterol 2 puffs q.i.d. p.r.n. shortness of breath or wheezing Albuterol nebulizer 2.5 mg q.i.d. p.r.n. shortness of breath or wheezing Oxygen perform a home O2 assessment on 12/16 which I have ordered. When she naps or sleeps, home noninvasive ventilator with the AVAPS mode as tolerated with 4 L bleed in. when she cannot wear her noninvasive ventilator she should wear 4 L bleed in. Follow-up in the Pulmonary Clinic in 3-4 weeks. I have given the patient our business card and informed our salesperson fashion accessories. Discussed with Dr. Dhillon. (2) COPD (chronic obstructive pulmonary disease): Code(s): J44.9 - Chronic obstructive pulmonary disease, unspecified Status: Acute Assessment and Plan: Patient has covered pneumonia but has no wheezing and I do not believe this is a COPD exacerbation. D-dimer is negative. Patient is maintained on Advair 250-50 a 1 inhalation a day, Daliresp 500 mg p.o. q.day and rescue albuterol. Continue Advair HFA 115-21 at 2 puffs q.12 hours, I will discontinue albuterol and ipratropium nebulizers at this time. Will continue Daliresp 500 mg q.day. Patient is on dexamethasone 6 mg IV. Continue Mucinex 600 mg p.o. q.12 hours. I will discontinue dornase 2.5 mg nebulized q.12 hours. (3) Acute on chronic respiratory failure with hypoxia and hypercapnia: Code(s): J96.21 - Acute and chronic respiratory failure with hypoxia; J96.22 - Acute and chronic respiratory failure with hypercapnia Status: Acute Assessment and Plan: 08/27/22 (from pulmonary clinic note) - This week we were contacted by Kelly from [facility] stating patient has used her Trilogy only 54 hours in the last 2 months. She refuses to wear the mask, just holds it up to her face, will not put headgear on due to claustrophobia and feeling anxious. Kelly suggested trying a mouth piece ventilation mask. This would be for use during the day, she would not be able to sleep with mouth piece ventilation. This requires changing her Trilogy settings to allow assist control. Discussed case with Dr Melendez who spoke with Kelly from [facility] over the phone 08/25/22. Order was faxed back to [facility] to allow for new Trilogy settings giving the patient capability to use mouth piece ventilation during the day. VC mouth piece ventilation - tidal volume 150 to 250, PEEP 5-15, breath rate 6-12, inspiratory time 0.5-1.5 for use during the daytime hours. Also allow for AVAPS-AE mode still available for night time use if RT finds appropriate; tidal volume 150-500; breath rate and inspiratory howard
--- NOTE | 2022-12-16 11:41 | PCRCNOTE ---
Home o2 eval done, 1.5-2 liter at rest and 2 l with activity. Spoke to [facility] about home equipment. Pt states her POC is broken and wants portable tanks. I called Trever at [facility], she will have a taxi truck driver come out on Thursday or to last picker broken unit and supply her with small portable tanks. The POC has to be picked up before they will give her different portable equipment. In the meantime, for transport home, I will give her a larger E tank prior to D/C.
--- NOTE | 2022-12-16 13:19 | PM.DS ---
DS: Admitting Diagnosis Discharge Date 12/16/2022 Admitting Diagnosis shortness of breath DS: Discharge Diagnosis Discharge Diagnosis (1) Acute on chronic respiratory failure with hypoxia and hypercapnia: Code(s): J96.21 - Acute and chronic respiratory failure with hypoxia; J96.22 - Acute and chronic respiratory failure with hypercapnia Status: Acute (2) Acute hyponatremia: Code(s): E87.1 - Hypo-osmolality and hyponatremia Status: Acute (3) COVID-19: Code(s): U07.1 - COVID-19 Status: Acute (4) Acute hypokalemia: Code(s): E87.6 - Hypokalemia Status: Acute (5) NSVT (nonsustained ventricular tachycardia): Code(s): I47.29 - Other ventricular tachycardia Status: Acute (6) Congestive heart failure: Code(s): I50.9 - Heart failure, unspecified Status: Acute (7) Nonischemic cardiomyopathy: Code(s): I42.8 - Other cardiomyopathies Status: Chronic (8) Gastroesophageal reflux disease: Code(s): K21.9 - Gastro-esophageal reflux disease without esophagitis Status: Acute (9) Normocytic anemia: Code(s): D64.9 - Anemia, unspecified Status: Chronic (10) Tachycardia: Code(s): R00.0 - Tachycardia, unspecified Status: Acute (11) Alcohol abuse: Code(s): F10.10 - Alcohol abuse, uncomplicated Status: Acute (12) Atrial fibrillation: Qualifiers: Atrial fibrillation type: unspecified Qualified Code(s): I48.91 - Unspecified atrial fibrillation Code(s): I48.91 - Unspecified atrial fibrillation Status: Acute Plan DS: Summary Hospital Course Hospital Course: #Acute on chronic hypoxic and hypercapnic respiratory failure needing BiPAP treatment in the ER tachycardic and tachypneic on presentation.? Improved with BiPAP treatment.? ABG:? 7.32/7 /39.? Repeat ABG with improvement 7./. but does have chronic hypercapnia.? Been on trilogy home.? ? Started back on AVAPS mode as previously prescribed while she was here.? Pulmonary consulted with regard to chronic vent therapy. She has been noncompliant with her AVAPS therapy at home encouraged her to continue using Oxygen evaluation was done at the time of discharge. She will require 1.5-2 L at rest and 2 L with activity. ?#Hyponatremia mild continue to monitor.? Sodium level stable ?#COVID-19 infection chest x-ray with no acute process .? with hypoxia She was started on remdesivir and Decadron.? see concluded remdesivir course of treatment during the hospital stay. Decadron will be continued for 10 total days ?#Hypokalemia replace and monitor ?#COPD exacerbation Solu Medrol order has been placed. ? started on Decadron and remdesivir for? COVID treatment as well ?#Chronic respiratory failure with hypoxia on 3 L nasal cannula oxygen chronically ?#Mild anemia normocytic normochromic ?#Chronic systolic diastolic congestive heart failure EF 40-45% 03/202222 grade 1 diastolic dysfunction ?#Tachycardia: EKG with sinus tachycardia.? Improved with treatment for COPD. ? #Chronic severe compression fracture of T6 # anxiety disorder alprazolam which is resumed. I did provide her with a script for at discharge but encouraged her to discuss this with her primary care physician. # DVT prophylaxis Lovenox # code status full code Time Spent with Patient Time attestation: Total time spent providing and/or coordinating discharge services:40 minutes Exam Narrative: APPEARANCE:? No acute distress, nontoxic, on oxygen via nasal cannula EYES: EOMI HEENT: Normocephalic, atraumatic, OMM RESPIRATORY: No respiratory distress, coarse breath sounds bilaterally no wheezes heard CARDIOVASCULAR: Regular rate and rhythm without murmurs rubs or gallops. ABDOMINAL: Soft, nontender, nondistended, no rebound or guarding MUSCULOSKELETAl: Moves all extremities. No clubbing, cyanosis or edema. NEURO: Awake and alert. Following command
[2022-12-16] MEDS: REMDESIVIR 100 MG/NS 250 ML 100 MG/250 ML BAG 250 MG IVPB (15:27)
== END 2022-12-16 16:50 | disposition home or self-care (01) | DRG 177 ==
LOC: ANHED 12-12 06:17 → ANHIMU 12-12 06:45 → ANH2MED 12-13 14:37
PROVIDERS: Internal Medicine Pulmonary Disease; Admitting Provider Internal Medicine; Emergency Provider Emergency Medicine; PCP Family Medicine; Visit Provider Internal Medicine
DX: U07.1 COVID-19 (principal); J96.21 Acute and chronic respiratory failure with hypoxia; J96.22 Acute and chronic respiratory failure with hypercapnia; E87.1 Hypo-osmolality and hyponatremia; I47.29 Other ventricular tachycardia; I42.8 Other cardiomyopathies; I50.42 Chronic combined systolic (congestive) and diastolic (congestive) heart failure; E87.6 Hypokalemia; K21.9 Gastro-esophageal reflux disease without esophagitis; F10.10 Alcohol abuse, uncomplicated; J43.9 Emphysema, unspecified; I48.91 Unspecified atrial fibrillation; F41.1 Generalized anxiety disorder; D64.9 Anemia, unspecified; Z87.891 Personal history of nicotine dependence; Z99.81 Dependence on supplemental oxygen
CPT/HCPCS: 36415; 36600; 71046; 71250; 80053; 82375; 82565; 82805; 83050; 83735; 84460; 85025; 85380; 85610; 87637; 93005; 94002; 94003; 94618; 94640; 94667; 96374; 96375; 99285; A9270; G0378; J0248; J1100; J1650; J2060; J2930; J7040

== ENCOUNTER 2023-01-19 13:24 | Inpatient (IN) | payer OTHER, MEDICAID, SELFPAY ==
[2023-01-19] VITALS (19 sets, daily range): BP systolic 73–100; BP diastolic 50–70; PULSE 71–105; RESP 16–25; TEMP 36.4–37; O2SAT 93–100; BMI 15.2
--- NOTE | ~2023-01-19 | XR_ITS ---
EXAMINATION: XR chest 1V portable DATE: 01/22/2023 08:19 INDICATION: Increased work of breathing TECHNIQUE: frontal view of the chest was obtained. COMPARISON: Chest radiograph dated 12/12/[address] dated 12/15/2022 FINDINGS: Emphysema with hyperexpansion of lungs and scattered increased lucency with architectural distortion. Suture lines consistent with prior partial pneumonectomies at the bilateral upper lung zones. No sig nificant change in streaky opacities at the bilateral lung bases and blunting at the costophrenic ang les likely related to chronic pleural parenchymal scarring. No significant change in more patchy airs pace opacity left midlung zone corresponding to atelectasis/scarring at the periphery of a region of bullous change. Increasing airspace opacity lateral left lower lung zone. No pneumothorax. The cardio mediastinal silhouette is normal. IMPRESSION: 1. Severe emphysema with scattered chronic pleural parenchymal scarring. 2. Increasing opacities at the lateral left lower lung zone which could represent small pleural effus ion, atelectasis or pneumonia. Reviewed, dictated and finalized at location A. IMPRESSION: 1. Severe emphysema with scattered chronic pleural parenchymal scarring. 2. Increasing opacities at the lateral left lower lung zone which could represe nt small pleural effusion, atelectasis or pneumonia.
--- NOTE | ~2023-01-19 | XR_ITS ---
EXAMINATION: XR hand RT min 3V DATE: 01/19/2023 16:08 INDICATION: Right hand injury and swelling. TECHNIQUE: 3 views of right hand were obtained. COMPARISON: None. FINDINGS: Bone alignment is normal. There is an oblique fracture of diaphysis of third metacarpal. Th e distal fracture fragment demonstrates 3 mm dorsal displacement. There are avulsion fracture of the palmar base of third distal phalanx with 1 mm distraction. There is an avulsion fracture of palmar ba se of fourth distal phalanx with less than 1 mm distraction. Joint spaces are normal. IMPRESSION: 1. Oblique fracture of diaphysis of third metacarpal. 2. Avulsion fracture of palmar base of third distal phalanx. 3. Avulsion fracture of palmar base of fourth distal phalanx. Cortication suggests this finding may n ot be acute or the bone fragment may be rotated. Reviewed, dictated and finalized at location A. IMPRESSION: 1. Oblique fracture of diaphysis of third metacarpal. 2. Avulsion fracture of palmar base of third distal phalanx. 3. Avulsion fracture of palmar base of fourth distal phalanx. Cortication sugge sts this finding may not be acute or the bone fragment may be rotated.
--- NOTE | ~2023-01-19 | XR_ITS ---
EXAMINATION: XR forearm RT 2V DATE: 01/19/2023 16:08 INDICATION: Right forearm injury. TECHNIQUE: 2 views of right forearm were obtained. COMPARISON: None. FINDINGS: Bone alignment is normal. No fracture. Joint spaces are well maintained. There is no elbow joint effusion. IMPRESSION: 1. No fracture. Reviewed, dictated and finalized at location A. IMPRESSION: 1. No fracture.
--- NOTE | 2023-01-19 16:36 | ED.FALL ---
HPI - Fall General Chief Complaint: Fall Stated Complaint: fall-right hand injury Time Seen by Provider: 01/19/23 15:39 Source: patient, EMS, RN notes reviewed and old records reviewed Mode of arrival: EMS History of Present Illness HPI Narrative: This is a 57 year old female with history of chronic respiratory failure on 3 L NC who presents from home for evaluation of right hand injury. Patient states she tripped and fell onto her right arm today. She has swelling to her right hand and right fingers. She also has skin tears to her right forearm. She denies hitting head or LOC. She denies dizziness causing her to fall. She denies hip pain, headache, rib pain. She denies worsening shortness of breath. Related Data Home Medications Medication Instructions Recorded Confirmed roflumilast 500 mcg tablet 500 mcg PO DAILY 12/12/22 01/19/23 (Daliresp) alprazolam 0.25 mg tablet 0.5 mg PO BID PRN severe anxiety 01/19/23 01/19/23 fluoxetine 20 mg capsule 20 mg PO DAILY 01/19/23 01/19/23 mirtazapine 30 mg tablet 30 mg PO HS 01/19/23 01/19/23 Allergies Allergy/AdvReac Type Severity Reaction Status Date / Time No Known Allergies Allergy Verified 10/18/22 12:06 Review of Systems Constitutional: Constitutional: Denies weakness Cardiovascular: Cardiovascular: Denies syncope, Denies rapid heart rate, Denies irregular heart rhythm, Denies leg edema and Denies dyspnea Respiratory: Respiratory: Denies chest congestion, Denies hemoptysis, Denies excessive phlegm production and Denies dyspnea Gastrointestinal: Gastrointestinal: Denies abdominal pain, Denies hematochezia, Denies diarrhea and Denies vomiting Genitourinary: Genitourinary: Denies hematuria and Denies dysuria Musculoskeletal: Musculoskeletal: Denies joint swelling, Denies loss of height and Denies muscle weakness Neurologic: Denies syncope, Denies focal weakness and Denies weakness PMFSH Past Medical History Medical History (Updated 01/20/23 @ 13:22 by SHERI Apple) Abnormal EKG EKG has previously shown ST elevation which appears to be early repolarization. Alcohol abuse Anxiety Asthma B12 deficiency anemia Chronic anemia Chronic hyponatremia Chronic respiratory failure with hypoxia and hypercapnia On Trelegy unit at nighttime. However the patient is noncompliant 3 L nasal cannula during the day. Closed traumatic nondisplaced fracture of proximal end of right humerus Cognitive impairment COPD with emphysema COVID-19 (~11/2022) Gastroesophageal reflux disease Generalized anxiety disorder with panic attacks Osteoporosis Protein-calorie malnutrition, severe Pulmonary cachexia due to chronic obstructive pulmonary disease Right hand fracture Secondary nonischemic congestive cardiomyopathy With ejection fraction of 40-45%, diastolic dysfunction grade 1, mid inferior wall, mid anterior wall, mid in for septal wall mid anterior lateral wall, basal apical septum and mid inferior wall hypokinesis on echocardiogram 03/2022 Spontaneous pneumothorax (08/2012) Several pneumothoraces status post VATS procedure and apical blebectomy as well as pleurodesis. Tobacco abuse Quit in 2019 per patient report. Vitamin D deficiency Surgical History Surgical History History of bilateral tubal ligation History of section History of hip surgery (07/2019) ORIF of right femur fracture. History of tonsillectomy Status post thoracotomy Left-sided VATS procedure and apical bleb resection with pleurodesis. Family History Family History Father Acute myocardial infarction Mother Chronic obstructive pulmonary disease Social History Social History Social History: The patient had 3 sons but one from drug overdose. Patient is an alcoholic. When asked how much she drinks she states ?not enough.?
[2023-01-19] MEDS: SODIUM CHLORIDE 0.9% IV 500 ML 999 ML IV CONT ×3 (16:42→19:43)
[2023-01-19] MEDS: HYDROcodone/acetaminophen (*CRX) 5-325 MG TABLET 1 TAB PO (16:52)
[2023-01-19 17:52] LABS: Basophils Absolute Auto 0.1 K/mm3 (0.0-0.1); Basophils Percent Auto 0.8 % (0.2-1.2); Eosinophils Absolute Auto 0.1 K/mm3 (0-0.3); Eosinophils Percent Auto 1.1 % (0-4.4); Hematocrit 33.8 % (37.0-47.0); Hemoglobin 10.1 g/dL (12.0-15.0); Immature Granulocyte Absolute 0.02 K/mm3 (0.00-0.031); Immature Granulocyte Percent A 0.3 % (0-0.5); Lymphocytes Absolute Auto 1.17 K/mm3 (0.9-3.2); Lymphocytes Percent Auto 18.7 % (18.3-44.2); Mean Corpuscular HGB Conc 29.9 g/dl (32-36); Mean Corpuscular Hemoglobin 30.8 pg (26-34); Mean Platelet Volume 8.9 fl (7.4-10.4); Monocytes Absolute Auto 0.5 K/mm3 (0.1-0.6); Monocytes Percent Auto 7.3 % (2.6-8.5); Neutrophils Absolute Auto 4.5 K/mm3 (1.3-6.7); Neutrophils Percent Auto 71.8 % (45.5-73.1); Platelet Count Result 176 k/mm3 (150-375); Red Blood Count 3.28 M/mm3 (4.2-5.4); Red Cell Distribution Width 13.2 % (11.5-14.5); White Blood Count 6.3 K/mm3 (4.5-10.0)
[2023-01-19 17:56] LABS: Alanine Aminotransferase 126 U/L (6-35); Albumin Level 2.5 g/dL (3.5-5.1); Alkaline Phosphatase 136 U/L (38-126); Aspartate Amino Transferase 103 U/L (14-36); Bilirubin,Total 0.5 mg/dL (0.2-1.3); Blood Urea Nitrogen 9 mg/dL (7-17); Calcium 7.2 mg/dL (8.4-10.2); Carbon Dioxide > 40 mmol/L (22-30); Chloride 99 mmol/L (98-107); Estimated CRCL calculation 98 ml/min; Estimated Glomerular Filt Rate > 60; Glucose 105 mg/dL (65-110); Lactic Acid Reflex 0.8 mmol/L (0.7-2.0); Potassium 3.9 mmol/L (3.4-5.0); Prothrombin Time 12.7 Seconds (11.1-14.7); Sodium 138 mmol/L (137-145)
[2023-01-19 17:57] LABS: Partial Thromboplastin Time 31.1 SECONDS (22.3-36.8)
[2023-01-19 18:28] LABS: Hypochromasia 1+ (NORMAL); Platelet Estimate Adequate (Adequate); Schistocytes None Seen (NORMAL)
--- NOTE | 2023-01-19 19:51 | PC.NURSE ---
Pt requested alprazolam for her anxiety. Informed ED MD. MD declined, pt made aware.
[2023-01-19 20:21] LABS: Ethanol 29 mg/dL (<10)
[2023-01-19] MEDS: SODIUM CHLORIDE 0.9% IV 1,000 ML 50 ML IV CONT (20:52)
[2023-01-19 21:26] LABS: Glucose Point of Care 190 mg/dl (65-105)
[2023-01-19 22:56] LABS: Appearance Urine Clear (Clear); Bilirubin Urine Negative (Negative); Blood Urine Negative (Negative); Color Urine Yellow (Yellow); Glucose Urine UA Trace mg/dL (Negative); Ketones Urine Negative (Negative); Leukocyte Esterase Ur Negative LEU/UL (Negative); Nitrate Urine Negative (Negative); Protein Urine Negative (Negative); Specific Grav Ur 1.007 (1.001-1.035); Urobilinogen Urine 0.2 mg/dL (<2.0)
--- NOTE | 2023-01-19 23:04 | PM.IMHP ---
H&P: HPI History of Present Illness Date/Time: 01/19/23 23:04 Chief Complaint: Fall with hand pain Narrative: 57-year-old female with past medical history of alcoholism, chronic hypoxic hypercapnic respiratory failure requiring intubation previously, nonischemic cardiomyopathy, hypotension and severe protein calorie malnutrition who presented to the ER via EMS from home after losing her balance and falling right hand pain. The patient states that she thinks that she tripped over her [place] [employer] when she was going to the bathroom and fell. She landed on her right hand. She denies any other injuries. The patient states that she has not drank since 2 days ago. When you ask her how much she does drink she states not enough. With further questioning it seems that the patient least drinks a 6 pack to a 12 pack per day. Her alcohol level in the ER was 29 to it is unclear if she actually had some alcohol today prior to coming to the hospital or if that was the residual from her drinking 2 days ago. She reports that the pain in her hand is an 8/10 in intensity. Her and is currently in a soft splint. She denies any nausea or vomiting. She is on chronic home O2 of 3 L. She reports that her breathing is at her usual. She is supposed be on Trelegy at home but does not use it. She states that it has to be plugged into an out that that is across from her chair. She can not move her chair near the outlet because then she will not be able to see the TD. She denies any change in her chronic cough. She does not have chronic sputum production. She denies any lower extremity swelling or edema. Although the patient is not reporting changes in her chronic breathing difficulty she did have some perioral cyanosis intermittently during my evaluation. The patient states that she never keeps track of the month year or who the president is. In the past the patient has had multiple providers document memory loss. The patient has never been evaluated for dementia. Review of Systems Review of Systems: 12 systems were reviewed with pertinent positives and negatives per HPI. Except as documented in the HPI, all other systems were reviewed and are negative. But somewhat limited as patient is not the best historian. [facility] Past Medical History Medical History (Updated 01/19/23 @ 23:28 by Mehreen Serna DO) Abnormal EKG EKG has previously shown ST elevation which appears to be early repolarization. Alcohol abuse Anxiety Asthma B12 deficiency anemia Chronic anemia Chronic hyponatremia Chronic respiratory failure with hypoxia and hypercapnia On Trelegy unit at nighttime. However the patient is noncompliant 3 L nasal cannula during the day. Closed traumatic nondisplaced fracture of proximal end of right humerus Cognitive impairment COPD with emphysema COVID-19 (~11/2022) Gastroesophageal reflux disease Generalized anxiety disorder with panic attacks Osteoporosis Protein-calorie malnutrition, severe Pulmonary cachexia due to chronic obstructive pulmonary disease Secondary nonischemic congestive cardiomyopathy With ejection fraction of 40-45%, diastolic dysfunction grade 1, mid inferior wall, mid anterior wall, mid in for septal wall mid anterior lateral wall, basal apical septum and mid inferior wall hypokinesis on echocardiogram 03/2022 Spontaneous pneumothorax (08/2012) Several pneumothoraces status post VATS procedure and apical blebectomy as well as pleurodesis. Tobacco abuse Quit in 2019 per patient report. Vitamin D deficiency Surgical History Surgical History (Updated 01/19/23 @ 23:23 by Mehreen Serna DO) History of bilateral tubal ligation History of section History of hip surgery (07/2019) ORIF of right femur fracture. History of tonsillectomy Status post thoracotomy Left-sided VATS procedure and apical bleb resection with pleurodesis. Family History Family History (Updated 01/19/23 @ 23:23 by Mehreen Serna DO) Sanna
[2023-01-19 23:16] LABS: Add Urine Microscopic? NO
[2023-01-19 23:29] LABS: Amphetamine Screen Urine Negative (Negative); Barbiturate Screen Urine Negative (Negative); Benzodiazepines Screen Urine Positive (Negative); Cannabinoid Screen Urine Negative (Negative); Cocaine Screen Urine Negative (Negative); Methadone Screen Urine Negative (Negative); Opiate Screen Urine Positive (Negative); Phencyclidine Screen Urine Negative (Negative)
[2023-01-19] MEDS: ALPRAZolam (*CRX) 0.5 MG TABLET PO (23:35)
[2023-01-20] VITALS (16 sets, daily range): BP systolic 87–121; BP diastolic 51–75; PULSE 92–132; RESP 18–36; TEMP 36.4–36.9; O2SAT 90–100; BMI 15.2
[2023-01-20] MEDS: HYDROcodone/acetaminophen (*CRX) 5-325 MG TABLET 1 TAB PO ×2 (01:48→06:39)
[2023-01-20] MEDS: chlordiazePOXIDE (*CRX) 25 MG CAPSULE PO ×3 (01:48→20:16)
[2023-01-20 05:47] LABS: Basophils Absolute Auto 0.1 K/mm3 (0.0-0.1); Eosinophils Absolute Auto 0.1 K/mm3 (0-0.3); Eosinophils Percent Auto 2.2 % (0-4.4); Hematocrit 38.9 % (37.0-47.0); Hemoglobin 11.6 g/dL (12.0-15.0); Immature Granulocyte Absolute 0.02 K/mm3 (0.00-0.031); Immature Granulocyte Percent A 0.3 % (0-0.5); Lymphocytes Absolute Auto 1.42 K/mm3 (0.9-3.2); Lymphocytes Percent Auto 24.3 % (18.3-44.2); Mean Corpuscular HGB Conc 29.8 g/dl (32-36); Mean Corpuscular Hemoglobin 31.4 pg (26-34); Mean Corpuscular Volume 105.4 fl (80-100); Mean Platelet Volume 9.1 fl (7.4-10.4); Monocytes Absolute Auto 0.6 K/mm3 (0.1-0.6); Monocytes Percent Auto 10.1 % (2.6-8.5); Neutrophils Absolute Auto 3.6 K/mm3 (1.3-6.7); Neutrophils Percent Auto 62.1 % (45.5-73.1); Platelet Count Result 184 k/mm3 (150-375); Red Blood Count 3.69 M/mm3 (4.2-5.4); Red Cell Distribution Width 13.6 % (11.5-14.5); White Blood Count 5.8 K/mm3 (4.5-10.0)
[2023-01-20 05:59] LABS: Alanine Aminotransferase 116 U/L (6-35); Albumin Level 2.6 g/dL (3.5-5.1); Alkaline Phosphatase 108 U/L (38-126); Aspartate Amino Transferase 83 U/L (14-36); Bilirubin,Total 0.7 mg/dL (0.2-1.3); Blood Urea Nitrogen 6 mg/dL (7-17); Calcium 7.4 mg/dL (8.4-10.2); Carbon Dioxide > 40 mmol/L (22-30); Chloride 99 mmol/L (98-107); Estimated CRCL calculation 91 ml/min; Estimated Glomerular Filt Rate > 60; Glucose 76 mg/dL (65-110); Magnesium 1.8 mg/dL (1.6-2.3); Phosphorus 3.4 mg/dL (2.5-4.5); Potassium 4.2 mmol/L (3.4-5.0); Sodium 138 mmol/L (137-145)
[2023-01-20 06:04] LABS: Hemoglobin A1C 4.7 % (<5.7)
[2023-01-20 07:04] LABS: Folic Acid 9.9 ng/mL (2.76->20)
[2023-01-20 08:23] LABS: Glucose Point of Care 107 mg/dl (65-105)
[2023-01-20] MEDS: UMECLIDINIUM BROMIDE 62.5 MCG ELLIPTA 1 PUFF INHALATION (08:46)
[2023-01-20] MEDS: THIAMINE HCL 100 MG TABLET PO (09:07)
[2023-01-20] MEDS: FLUoxetine HCL 20 MG CAPSULE PO (09:07)
[2023-01-20] MEDS: FOLIC ACID 1 MG TABLET PO (09:07)
[2023-01-20] MEDS: ROFLUMILAST 500 MCG TABLET PO (09:07)
[2023-01-20] MEDS: MULTIVITAMINS THERAPEUTIC TAB (*BKC) 1 TABLET PO (09:07)
--- NOTE | 2023-01-20 10:24 | PM.IMPN ---
Progress Note: A&P Assessment and Plan (1) Acute hypotension: Code(s): I95.9 - Hypotension, unspecified Status: Acute Assessment and Plan: The patient tends to have somewhat lower blood pressures. A pediatric cuff has been used due to the patient's diminutive size. The patient's blood pressures have improved after she received a total of 1.5 L in fluid boluses. Patient's blood pressures are now back around her normal in the low 90s. Affected the patient's sodium is 138 up from her baseline of 128 to 136 leads me to believe that the patient may be relatively volume depleted. Will continue gentle IV fluid hydration with normal saline at 75 mL an hour. Will need to be cautious with this given the patient's history of nonischemic cardiomyopathy with EF of 40-45%. (2) Left hand fracture: Qualifiers: Encounter type: initial encounter Fracture type: closed Qualified Code(s): S62.92XA - Unspecified fracture of left wrist and hand, initial encounter for closed fracture Code(s): S62.92XA - Unspecified fracture of left wrist and hand, initial encounter for closed fracture Status: Deleted Assessment and Plan: Ortho consult pending (3) Chronic respiratory failure with hypoxia and hypercapnia: Code(s): J96.11 - Chronic respiratory failure with hypoxia; J96.12 - Chronic respiratory failure with hypercapnia Status: Acute Assessment and Plan: Patient is stable on her home oxygen requirement. AVAPS has been ordered with settings of rate of 12 tidal volume 250 PAP of 5 with minimal pressure of 6 maximum pressure of 20 and an IO ratio of 1:3. The patient very well refuse AVAPS as she is noncompliant with her Trelegy at home. Will place patient on albuterol nebulizers as needed. Will continue home long-acting inhalers. (4) Chronic alcoholic hepatitis: Code(s): K70.10 - Alcoholic hepatitis without ascites Status: Acute Assessment and Plan: Elevated LFTs noted, suspect alcohol use, check CIWAs (5) Protein-calorie malnutrition, severe: Code(s): E43 - Unspecified severe protein-calorie malnutrition Status: Acute Assessment and Plan: a1c = 4.7, TSH = 2.62 Dietitian will be consulted and dietary supplements will be provided. (6) Alcohol abuse: Code(s): F10.10 - Alcohol abuse, uncomplicated Status: Acute Assessment and Plan: CIWA, librium prn, cont MVI + thiamine, folic acid (7) B12 deficiency anemia: Qualifiers: Vitamin B12 deficiency anemia type: unspecified B12 deficiency Qualified Code(s): D51.9 - Vitamin B12 deficiency anemia, unspecified Code(s): D51.9 - Vitamin B12 deficiency anemia, unspecified Status: Acute Assessment and Plan: B12 + folate wnl (8) Hyperglycemia: Code(s): R73.9 - Hyperglycemia, unspecified Status: Acute Assessment and Plan: a1c wnl (9) Anxiety: Code(s): F41.9 - Anxiety disorder, unspecified Status: Acute Assessment and Plan: Resume home Xanax Plan DVT prophylaxis with SCDs GI prophylaxis not indicated Code status full code Subjective Date/time seen: 01/20/23 10:24 Interval history: 57-year-old female with past medical history of alcohol abuse, chronic hypoxic and hypercapnic respiratory failure with previous intubation, nonischemic cardiomyopathy, malnutrition with presenting with a fall. No overnight events noted. No chest pain or shortness of breath. No nausea, vomiting or diarrhea. No fevers or chills. Review of Systems Review of Systems: 12 point review of systems was assessed and was negative except as noted in the HPI Exam Narrative: General: No acute distress, alert and oriented per baseline, small, chronically ill appearing HEENT: Atraumatic, normocephalic, mucous membranes moist CV: Regular rate and rhythm, S1, S2 Lungs: Clear t
[2023-01-20] MEDS: ACETAMINOPHEN 325 MG TABLET 650 MG PO (11:20)
[2023-01-20 12:04] LABS: Glucose Point of Care 127 mg/dl (65-105)
[2023-01-20] MEDS: SODIUM CHLORIDE 0.9% IV 1,000 ML 70 ML IV CONT (12:35)
--- NOTE | 2023-01-20 13:13 | PM.CNOR ---
Assessment and Plan Assessment and plan (1) Right hand fracture: Qualifiers: Encounter type: initial encounter Fracture type: closed Qualified Code(s): S62.91XA - Unspecified fracture of right wrist and hand, initial encounter for closed fracture Code(s): S62.91XA - Unspecified fracture of right wrist and hand, initial encounter for closed fracture Status: Acute Assessment and Plan: History, exam and radiographs reviewed with the patient. Radiographs of the right hand reveal an oblique fracture of diaphysis of third metacarpal, an avulsion fracture of palmar base of third distal phalanx and an avulsion fracture of palmar base of fourth distal phalanx. The fracture type and injury as well as radiographs discussed with the patient. Operative and nonoperative treatment options reviewed. Risk of nonunion, rotational abnormalities, malunion or late displacement discussed. Stiffness, pain and possible dysfunction of the joint discussed. Fracture precautions and activity restrictions reviewed. Recommended initiating conservative treatment at this time. Continue splint which is currently in place. Ice, elevate. Pain control. After review of images with Dr. Funes, he recommended patient be referred to a hand specialist. Will attempt to contact hand specialist for inpatient evaluation. If unable to obtain hand consult inpatient, she could be seen as an outpatient once medically cleared for discharge. Keep splint in place in the interim. CONNOR BUSCH. (2) B12 deficiency anemia: Qualifiers: Vitamin B12 deficiency anemia type: unspecified B12 deficiency Qualified Code(s): D51.9 - Vitamin B12 deficiency anemia, unspecified Code(s): D51.9 - Vitamin B12 deficiency anemia, unspecified Status: Acute (3) Hyperglycemia: Code(s): R73.9 - Hyperglycemia, unspecified Status: Acute (4) Protein-calorie malnutrition, severe: Code(s): E43 - Unspecified severe protein-calorie malnutrition Status: Acute (5) Chronic alcoholic hepatitis: Code(s): K70.10 - Alcoholic hepatitis without ascites Status: Acute (6) Chronic respiratory failure with hypoxia and hypercapnia: Code(s): J96.11 - Chronic respiratory failure with hypoxia; J96.12 - Chronic respiratory failure with hypercapnia Status: Acute (7) Alcohol abuse: Code(s): F10.10 - Alcohol abuse, uncomplicated Status: Acute Plan Reviewed radiographs, physical exam and patient history with attending MD, Dr. Funes who recommended referral to a hand specialist. Will attempt to arrange. No further recommendations at this time. History of Present Illness HPI Consult date: 01/20/23 Chief complaint: Hypotension,Right Hand Fracture,Alcohol Abuse Narrative: 57-year-old female presented to the emergency room via EMS after losing her balance and tripping over her dog falling onto the right hand. She denies any other injuries. Patient does have a history of alcoholism. She reports having last drink 2 days prior to being admitted to the ER on January 19. Radiographs of the right hand in the emergency room reveal an oblique fracture of diaphysis of third metacarpal, an avulsion fracture of palmar base of third distal phalanx and an avulsion fracture of palmar base of fourth distal phalanx. Patient was admitted in the setting of hypotension and alcohol abuse. Orthopedic consult requested on January 20, 2023. Review of Systems Constitutional: Constitutional: Reports no additional constitutional complaints, Denies chills, Denies fatigue, Denies fever(s), Denies headache(s) and Denies weakness Eyes: Eyes: Denies change in vision ENT: Reports Normal hearing present and Denies headache(s) Cardiovascular: Cardiovascular: Denies chest pain and Denies dyspnea Respiratory: Respiratory: Denies cough and Denies wheezing Gastrointestinal: Gastrointestinal: Denies constipation, Denies diarrhea, Denies nausea and
--- NOTE | 2023-01-20 19:32 | WPDCN ---
Assessment and Plan Assessment and plan (1) Right hand fracture: Qualifiers: Encounter type: initial encounter Fracture type: closed Qualified Code(s): S62.91XA - Unspecified fracture of right wrist and hand, initial encounter for closed fracture Code(s): S62.91XA - Unspecified fracture of right wrist and hand, initial encounter for closed fracture Status: Acute Assessment and Plan: Closed minimally displaced oblique shaft fracture of the right 3rd metacarpal. Small displaced fracture of the volar base of the distal phalanx of the 3rd finger. Small displaced fracture of the volar base of the distal phalanx of the 4th finger. Moderate hand swelling with near normal active range of motion of the digits. Plan Continue the current splint to the right forearm and hand. She could be discharged at any time and follow up with Dr. Graf in approximately 1 week HPI Data of Consult Date/Time: 01/20/23 19:32 Requesting Physician: Mehreen Serna DO Primary Care Provider: Kristian Escobar MD Consult Narrative Narrative: She is alert and pleasant and cooperative at the time I saw her. She allowed me to remove the very adequate forearm based splint that extends to the distal interphalangeal joint. sen Brink is a 57 year old female with multiple medical conditions. She was admitted couple days ago with a primary diagnosis of acute hypotension. A secondary diagnosis is closed fractures of the right 3rd metacarpal and the distal phalanges of the right 3rd and 4th fingers. I was asked to see her for the latter. [facility] Past Medical History Medical History (Updated 01/20/23 @ 13:22 by SHERI Apple) Abnormal EKG EKG has previously shown ST elevation which appears to be early repolarization. Alcohol abuse Anxiety Asthma B12 deficiency anemia Chronic anemia Chronic hyponatremia Chronic respiratory failure with hypoxia and hypercapnia On Trelegy unit at nighttime. However the patient is noncompliant 3 L nasal cannula during the day. Closed traumatic nondisplaced fracture of proximal end of right humerus Cognitive impairment COPD with emphysema COVID-19 (~11/2022) Gastroesophageal reflux disease Generalized anxiety disorder with panic attacks Osteoporosis Protein-calorie malnutrition, severe Pulmonary cachexia due to chronic obstructive pulmonary disease Right hand fracture Secondary nonischemic congestive cardiomyopathy With ejection fraction of 40-45%, diastolic dysfunction grade 1, mid inferior wall, mid anterior wall, mid in for septal wall mid anterior lateral wall, basal apical septum and mid inferior wall hypokinesis on echocardiogram 03/2022 Spontaneous pneumothorax (08/2012) Several pneumothoraces status post VATS procedure and apical blebectomy as well as pleurodesis. Tobacco abuse Quit in 2019 per patient report. Vitamin D deficiency Surgical History Surgical History History of bilateral tubal ligation History of section History of hip surgery (07/2019) ORIF of right femur fracture. History of tonsillectomy Status post thoracotomy Left-sided VATS procedure and apical bleb resection with pleurodesis. Family History Family History Father Acute myocardial infarction Mother Chronic obstructive pulmonary disease Social History Social History Social History: The patient had 3 sons but one from drug overdose. Patient is an alcoholic. When asked how much she drinks she states ?not enough.? Upon further questioning the patient the does admit that she drinks at least 6-12 pack per day. She is still adamant that she quit smoking. When we try to further delineate when she quit smoking she cannot provide specifics. One provider documents that she quit smoking in 2020. She has a Germa
[2023-01-20 20:03] LABS: Glucose Point of Care 141 mg/dl (65-105)
[2023-01-20] MEDS: MIRTAZAPINE 30 MG TABLET PO (20:16)
[2023-01-20] MEDS: ALPRAZolam (*CRX) 0.5 MG TABLET PO (22:40)
[2023-01-20 23:44] LABS: Alveolar/Arterial O2 Gradient 59.4 mmHg; Base Excess ABG 15.3 mEq/l (+/-2.0); Carboxyhemoglobin 0.5 % THb (0-2.0); Fractional Inspired Oxygen 32 %; HCO3 ABG 45.5 mEq/l (22.0-26.0); Methemoglobin ABG 0.4 %THb (0-1.5); Oxygen Content ABG 15.3 %vol (16.0-22.0); Oxyhemoglobin 90.3 % THb (90.0-100.0); PO2 ABG 60.7 mmHg (80.0-100.0); Reduced Hemoglobin 8.8 %THb (0-5.0)
[2023-01-20 23:45] LABS: Device NASAL CANNULA; Oxygen Saturation ABG 87.2 % (95.0-100.0); PCO2 ABG 92.4 mmHg (35.0-45.0); Site Drawn RIGHT BRACHIAL
[2023-01-21] VITALS (24 sets, daily range): BP systolic 82–101; BP diastolic 48–65; PULSE 82–129; RESP 18–32; TEMP 36.4–36.6; O2SAT 91–100
[2023-01-21] MEDS: OLANZapine 10 MG INJ VIAL 5 MG IM
[2023-01-21] MEDS: HYDROcodone/acetaminophen (*CRX) 5-325 MG TABLET 1 TAB PO ×2 (05:09→21:57)
[2023-01-21] MEDS: SODIUM CHLORIDE 0.9% IV 1,000 ML 70 ML IV CONT ×2 (05:10→18:53)
[2023-01-21] MEDS: chlordiazePOXIDE (*CRX) 25 MG CAPSULE PO (05:10)
[2023-01-21] MEDS: UMECLIDINIUM BROMIDE 62.5 MCG ELLIPTA 1 PUFF INHALATION (07:25)
[2023-01-21 07:52] LABS: Glucose Point of Care 114 mg/dl (65-105)
[2023-01-21 08:42] LABS: Alveolar/Arterial O2 Gradient 119.7 mmHg; Base Excess ABG 1.5 mEq/l (+/-2.0); Fractional Inspired Oxygen 35 %; Oxygen Content ABG 8.5 %vol (16.0-22.0); PO2 ABG 52.5 mmHg (80.0-100.0)
[2023-01-21 08:42] LABS: Glucose Point of Care 105 mg/dl (65-105)
[2023-01-21 08:46] LABS: Oxygen Saturation ABG 80.7 % (95.0-100.0); Oxyhemoglobin 84.9 % THb (90.0-100.0); PCO2 ABG 66.5 mmHg (35.0-45.0); Site Drawn LEFT BRACHIAL; Total Hemoglobin 7.1 g/dL (12.0-18.0); pH ABG 7.258 (7.350-7.450)
[2023-01-21 08:47] LABS: Expiratory Pressure 5 cmH2O
[2023-01-21] MEDS: SODIUM CHLORIDE 0.9% IV 500 ML 999 ML IV CONT ×2 (09:10→13:00)
[2023-01-21 10:15] LABS: Alveolar/Arterial O2 Gradient 89.9 mmHg; Base Excess ABG 8.8 mEq/l (+/-2.0); Fractional Inspired Oxygen 35 %; HCO3 ABG 36.9 mEq/l (22.0-26.0); Oxygen Content ABG 13.7 %vol (16.0-22.0); Oxygen Saturation ABG 93.2 % (95.0-100.0); Oxyhemoglobin 93.2 % THb (90.0-100.0); PO2 ABG 74.4 mmHg (80.0-100.0); PO2 FiO2 Ratio Arterial Blood 2.13 %; Total Hemoglobin 10.4 g/dL (12.0-18.0)
[2023-01-21 10:16] LABS: PCO2 ABG 73.3 mmHg (35.0-45.0); Site Drawn RIGHT BRACHIAL
[2023-01-21 10:17] LABS: Expiratory Pressure 5 cmH2O
[2023-01-21 10:19] LABS: Device BIPAP
[2023-01-21 10:21] LABS: Device BIPAP
[2023-01-21 12:54] LABS: Glucose Point of Care 61 mg/dl (65-105)
--- NOTE | 2023-01-21 12:58 | PC.NURSE ---
blood sugar of [address] Brantley. 1 amp of dextrose ordered and given.
[2023-01-21] MEDS: DEXTROSE 50% 25 GM/50 ML SYRINGE 50 GM (12:59)
--- NOTE | 2023-01-21 13:13 | PM.IMPN ---
Progress Note: A&P Assessment and Plan (1) Acute hypotension: Code(s): I95.9 - Hypotension, unspecified Status: Acute Assessment and Plan: Gentle IVF hydration given, monitor closely for volume overload, EF 40-45%, systolic runs in the 90s at baseline (2) Left hand fracture: Qualifiers: Encounter type: initial encounter Fracture type: closed Qualified Code(s): S62.92XA - Unspecified fracture of left wrist and hand, initial encounter for closed fracture Code(s): S62.92XA - Unspecified fracture of left wrist and hand, initial encounter for closed fracture Status: Deleted Assessment and Plan: Ortho consult appreciated, patient will need to be referred to a hand specialist Keep splint in place, nonweightbearing right upper extremity, ice, elevate and pain control (3) Chronic respiratory failure with hypoxia and hypercapnia: Code(s): J96.11 - Chronic respiratory failure with hypoxia; J96.12 - Chronic respiratory failure with hypercapnia Status: Acute Assessment and Plan: Patient became hypercapnic and hypoxic after overdosing on home Xanax from her purse, ABGs noted, yoker notified of tenuous status, monitor respiratory status closely, continue BiPAP support with AVAPS (4) Chronic alcoholic hepatitis: Code(s): K70.10 - Alcoholic hepatitis without ascites Status: Acute Assessment and Plan: Elevated LFTs noted, suspect alcohol use, check CIWAs (5) Protein-calorie malnutrition, severe: Code(s): E43 - Unspecified severe protein-calorie malnutrition Status: Acute Assessment and Plan: a1c = 4.7, TSH = 2.62 Dietitian will be consulted and dietary supplements will be provided. (6) Alcohol abuse: Code(s): F10.10 - Alcohol abuse, uncomplicated Status: Acute Assessment and Plan: CIWA, librium prn, cont MVI + thiamine, folic acid (7) B12 deficiency anemia: Qualifiers: Vitamin B12 deficiency anemia type: unspecified B12 deficiency Qualified Code(s): D51.9 - Vitamin B12 deficiency anemia, unspecified Code(s): D51.9 - Vitamin B12 deficiency anemia, unspecified Status: Acute Assessment and Plan: B12 + folate wnl (8) Hyperglycemia: Code(s): R73.9 - Hyperglycemia, unspecified Status: Acute Assessment and Plan: a1c wnl (9) Anxiety: Code(s): F41.9 - Anxiety disorder, unspecified Status: Acute Assessment and Plan: Hold Xanax today while somnolent Plan DVT prophylaxis with SCDs GI prophylaxis not indicated Code status full code Subjective Date/time seen: 01/21/23 13:13 Interval history: 57-year-old female with past medical history of alcohol abuse, chronic hypoxic and hypercapnic respiratory failure with previous intubation, nonischemic cardiomyopathy, malnutrition with presenting with a fall. Patient took a bunch of her home xanax and become extremely lethargic last evening and early this morning requiring BIPAP. Otherwise, no fevers. Review of Systems Review of Systems: ROS unobtainable: Yes unobtainable due to mental status Exam Narrative: General: Lethargic, difficult to arouse HEENT: Atraumatic, normocephalic, mucous membranes moist CV: Regular rate and rhythm, S1, S2 Lungs: Diminished throughout, no crackles or wheezes Abdomen: Soft, nontender, nondistended Extremities: Normal to inspection right upper extremity in a sling with an Eduardo wrap Skin: No rashes noted, no lesions or wounds seen Psych: Unable to assess Objective Data Vital Signs Vital Signs: Vital Signs - 24 hr 01/20/23 16:00 01/20/23 16:00 01/20/23 14:00 Temperature 97.5 F L Pulse Rate 94 92 99 Respiratory Rate 18 Blood Pressure 87/51 L Pulse Oximetry 100 Oxygen Delivery Oxygen Flow Rate Fraction of Inspired Oxygen 01/20/23 16:00 01/20/23 18:00 01/20/23 2
[2023-01-21 14:46] LABS: Glucose Point of Care 122 mg/dl (65-105)
[2023-01-21] MEDS: THIAMINE HCL 100 MG TABLET PO (15:00)
[2023-01-21] MEDS: ROFLUMILAST 500 MCG TABLET PO (15:00)
[2023-01-21] MEDS: FOLIC ACID 1 MG TABLET PO (15:00)
[2023-01-21] MEDS: MULTIVITAMINS THERAPEUTIC TAB (*BKC) 1 TABLET PO (15:00)
[2023-01-21] MEDS: FLUoxetine HCL 20 MG CAPSULE PO (15:00)
[2023-01-21] MEDS: LEVALBUTEROL NEB 1.25 MG/3 ML INHALATION (16:15)
[2023-01-21 17:39] LABS: Glucose Point of Care 127 mg/dl (65-105)
[2023-01-21] MEDS: LORazepam INJ (*CRX) 2 MG/ML VIAL 0.5 MG IV PUSH (18:54)
[2023-01-21] MEDS: MIRTAZAPINE SOLTAB 15 MG TAB.DISPER PO (19:58)
[2023-01-21 20:11] LABS: Glucose Point of Care 145 mg/dl (65-105)
[2023-01-22] VITALS (22 sets, daily range): BP systolic 92–127; BP diastolic 49–85; PULSE 94–145; RESP 11–28; TEMP 36.2–36.7; O2SAT 93–100
--- NOTE | 2023-01-22 04:23 | PC.NURSE ---
At approximately 2340 on 01/20/23, this nurse went into patient's room to give ordered IV Ativan dose and found patient to have her purse on her bed open and a bottle of her own Xanax 0.5 mg tabs out on her bedside table. There were 8 tabs in the bottle, as well as 4 tabs on the floor next to the bed. The patient was confused during the whole evening and was unable to verbalize if she had taken any of her own home Xanax. The 4 tabs on the floor were wasted and documentation of waste sent to pharmacy. The bottle with the 8 tabs were counted, verfied, and locked in the safe by the charge nurse.
[2023-01-22] MEDS: LORazepam INJ (*CRX) 2 MG/ML VIAL 0.5 MG IV PUSH ×3 (05:10→20:25)
[2023-01-22] MEDS: MORPHINE SULFATE (*CRX) 2 MG/ML INJ 1 MG IV PUSH (06:32)
[2023-01-22 07:51] LABS: Glucose Point of Care 75 mg/dl (65-105)
--- NOTE | 2023-01-22 08:04 | PM.IMPN ---
Progress Note: A&P Assessment and Plan (1) Acute hypotension: Code(s): I95.9 - Hypotension, unspecified Status: Acute Assessment and Plan: Gentle IVF hydration NS at 70 ml/hr given, monitor closely for volume overload, EF 40-45%, systolic runs in the 90s at baseline 01/22: BP much improved today, CXR shows developing congestion, monitor off IVF (2) Left hand fracture: Qualifiers: Encounter type: initial encounter Fracture type: closed Qualified Code(s): S62.92XA - Unspecified fracture of left wrist and hand, initial encounter for closed fracture Code(s): S62.92XA - Unspecified fracture of left wrist and hand, initial encounter for closed fracture Status: Deleted Assessment and Plan: Ortho consult appreciated, patient will need to be referred to a hand specialist, consult placed to Dr Graf Keep splint in place, nonweightbearing right upper extremity, ice, elevate and pain control (3) Chronic respiratory failure with hypoxia and hypercapnia: Code(s): J96.11 - Chronic respiratory failure with hypoxia; J96.12 - Chronic respiratory failure with hypercapnia Status: Acute Assessment and Plan: 01/21: Patient became hypercapnic and hypoxic after overdosing on home Xanax from her purse, ABGs noted, educational program director notified of tenuous status, monitor respiratory status closely, continue BiPAP support with AVAPS 01/22: Appreciate pulm consultation, pending (4) Chronic alcoholic hepatitis: Code(s): K70.10 - Alcoholic hepatitis without ascites Status: Acute Assessment and Plan: Elevated LFTs noted, suspect alcohol use is etiology Librium d/c 01/21, CIWA consistently under 8 (5) Protein-calorie malnutrition, severe: Code(s): E43 - Unspecified severe protein-calorie malnutrition Status: Acute Assessment and Plan: a1c = 4.7, TSH = 2.62 Dietitian consulted, dietary supplements provided (6) Alcohol abuse: Code(s): F10.10 - Alcohol abuse, uncomplicated Status: Acute Assessment and Plan: CIWA, librium prn, cont MVI + thiamine, folic acid (7) B12 deficiency anemia: Qualifiers: Vitamin B12 deficiency anemia type: unspecified B12 deficiency Qualified Code(s): D51.9 - Vitamin B12 deficiency anemia, unspecified Code(s): D51.9 - Vitamin B12 deficiency anemia, unspecified Status: Acute Assessment and Plan: B12 + folate wnl (8) Hyperglycemia: Code(s): R73.9 - Hyperglycemia, unspecified Status: Acute Assessment and Plan: a1c wnl Blood glucose reviewed 01/22 (9) Anxiety: Code(s): F41.9 - Anxiety disorder, unspecified Status: Acute Assessment and Plan: Hold home xanax while somnolent, ativan prn CIWA (10) Somnolence: Code(s): R40.0 - Somnolence Status: Acute Assessment and Plan: 01/20: intentional overdose on home xanax, these have been taken and locked away 01/22: still somnolent, CIWA < 8, check ammonia, hold IVF due to HF and congestion on CXR, check ABG, hold remeron Plan DVT prophylaxis with SCDs GI prophylaxis not indicated Code status full code Subjective Date/time seen: 01/22/23 08:04 Interval history: 57-year-old female with past medical history of alcohol abuse, chronic hypoxic and hypercapnic respiratory failure with previous intubation, nonischemic cardiomyopathy, malnutrition with presenting with a fall. Patient quite delirious and confused last evening. Overnight, she received morphine 1 mg. Review of Systems Review of Systems: 12 point review of systems was assessed and was negative except as noted in the HPI Exam Narrative: General: Confused, arousable, less somnolent, answers questions, axox2 HEENT: Atraumatic, normocephalic, mucous membranes moist CV: Regular rate and rhythm, S1, S2 Lungs: Diminished throughout, no crackles or wheezes Abdomen
[2023-01-22 08:25] LABS: Alveolar/Arterial O2 Gradient 92.3 mmHg; Base Excess ABG 11.6 mEq/l (+/-2.0); Fractional Inspired Oxygen 35 %; HCO3 ABG 39.5 mEq/l (22.0-26.0); Oxygen Content ABG 13.6 %vol (16.0-22.0); Oxygen Saturation ABG 92.9 % (95.0-100.0); Oxyhemoglobin 93.4 % THb (90.0-100.0); PO2 ABG 71.7 mmHg (80.0-100.0); PO2 FiO2 Ratio Arterial Blood 2.05 %; Total Hemoglobin 10.3 g/dL (12.0-18.0); pH ABG 7.348 (7.350-7.450)
[2023-01-22 08:27] LABS: Device NON-INVASIVE VENT; Modified Allen's Test Pass; PCO2 ABG 73.6 mmHg (35.0-45.0); Site Drawn LEFT RADIAL
[2023-01-22 08:28] LABS: Non-Invasive Expiratory Pressure 5 CMH2O; Non-Invasive Vent Rate 12 /MIN
[2023-01-22 09:33] LABS: Basophils Percent Auto 0.4 % (0.2-1.2); Eosinophils Absolute Auto 0.1 K/mm3 (0-0.3); Eosinophils Percent Auto 0.7 % (0-4.4); Immature Granulocyte Absolute 0.02 K/mm3 (0.00-0.031); Immature Granulocyte Percent A 0.3 % (0-0.5); Lymphocytes Absolute Auto 0.76 K/mm3 (0.9-3.2); Mean Corpuscular Hemoglobin 31.5 pg (26-34); Mean Corpuscular Volume 104.9 fl (80-100); Monocytes Absolute Auto 0.5 K/mm3 (0.1-0.6); Monocytes Percent Auto 7.1 % (2.6-8.5); Neutrophils Absolute Auto 6.2 K/mm3 (1.3-6.7); Neutrophils Percent Auto 81.5 % (45.5-73.1); Platelet Count Result 119 k/mm3 (150-375); Red Blood Count 2.86 M/mm3 (4.2-5.4); Red Cell Distribution Width 13.5 % (11.5-14.5); White Blood Count 7.6 K/mm3 (4.5-10.0)
[2023-01-22] MEDS: UMECLIDINIUM BROMIDE 62.5 MCG ELLIPTA 1 PUFF INHALATION (09:42)
[2023-01-22 09:49] LABS: Alanine Aminotransferase 60 U/L (6-35); Albumin Level 2.5 g/dL (3.5-5.1); Alkaline Phosphatase 74 U/L (38-126); Aspartate Amino Transferase 38 U/L (14-36); Bilirubin,Total 0.5 mg/dL (0.2-1.3); Calcium 7.5 mg/dL (8.4-10.2); Carbon Dioxide > 40 mmol/L (22-30); Chloride 98 mmol/L (98-107); Estimated CRCL calculation 126 ml/min; Estimated Glomerular Filt Rate > 60; Glucose 83 mg/dL (65-110); Potassium 3.3 mmol/L (3.4-5.0); Sodium 137 mmol/L (137-145)
[2023-01-22 09:54] LABS: Blood Urea Nitrogen < 2 mg/dL (7-17)
[2023-01-22 11:14] LABS: Glucose Point of Care 124 mg/dl (65-105)
[2023-01-22 11:21] LABS: Lactic Acid Reflex 0.7 mmol/L (0.7-2.0)
[2023-01-22 11:22] LABS: Ammonia < 9 umol/L (9-30)
[2023-01-22 11:25] LABS: CRP 1.1 mg/dL (<1.0)
[2023-01-22 11:53] LABS: Procalcitonin 0.2 ng/mL
[2023-01-22] MEDS: THIAMINE HCL 100 MG TABLET PO (12:35)
[2023-01-22] MEDS: MULTIVITAMINS THERAPEUTIC TAB (*BKC) 1 TABLET PO (12:35)
[2023-01-22] MEDS: FOLIC ACID 1 MG TABLET PO (12:35)
[2023-01-22] MEDS: FLUoxetine HCL 20 MG CAPSULE PO (12:35)
--- NOTE | 2023-01-22 12:39 | PM.CNPUL ---
Assessment and Plan Assessment and plan (1) COPD (chronic obstructive pulmonary disease): Code(s): J44.9 - Chronic obstructive pulmonary disease, unspecified Status: Acute Assessment and Plan: 56-year-old woman with GOLD? 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 Severe panlobular emphysema throughout all lung [place] on CT scan from 10/29/2021 and 12/15/2022,? on 5 L at home 11/05, she has chronic hypercarbic respiratory failure on nocturnal noninvasive ventilation with a trilogy with poor compliance (initiated 08/23/2022) and has not tolerated nocturnal noninvasive ventilator despite multiple setting changes and has not tolerated daytime mouth piece ventilation as an outpatient. Intubated 03/08/2020 and 07/02/2020, on Daliresp and triple inhalers.? She is status post left upper lobectomy and bleb resection for spontaneous pneumothorax in 2012.? She has pulmonary cachexia.?? Patient smoked 2 PPD from age [age] for 82 PY and quit smoking 2020 and on a good day she can walk across the room.? She also has severe anxiety. She has multiple hospitalizations for COPD exacerbations including 10/03/2022 through 10/07/2022, 07/14/2022 through 07/16/2022, 07/02/2022 through 07/05/2022,? 04/02/2022 through 04/06/2022, 11/19/21 through 11/23/2021, 10/23/21 through 10/26/21, 08/21/21 through 08/22/21 and ER visits on 10/18/2022, 06/22/2022, 03/29/22, 03/22/2022, 08/02/21 and 11/06/20. She was admitted to the hospital from 12/12/2022 through 12/16/2022 for covid pneumonia. Currently the patient admitted for fall with right hand fractures and denies fever, chills, rigors, phlegm production, cough, hemoptysis or chest pain. I do not think she has a COPD exacerbation or a bacterial infection requiring antibiotics. Continue levalbuterol 1.25 mg nebs q.6 hours, ipratropium 0.5 mg nebs q.6 hours, budesonide 0.5 mg nebs q.12 hours, Daliresp 500 mg p.o. q.day at this time. Currently she is on 3 L nasal cannula oxygen with saturations 97%. Her last home O2 assessment was done on 12/16/2022 and she required 1 and half to 2 L at rest and 2 L with activity. Follow up with her previously scheduled pulmonary appointment on 01/27/2023 at 11:[address] Brantley. Will sign off. Call with questions (2) Chronic respiratory failure with hypoxia and hypercapnia: Code(s): J96.11 - Chronic respiratory failure with hypoxia; J96.12 - Chronic respiratory failure with hypercapnia Status: Acute Assessment and Plan: She has known chronic hypercarbic respiratory failure and is intolerant to home machine. In the past during acute illnesses she has tolerated noninvasive ventilator with an AVAPS mode and her current settings of a AVAPS 12, tidal volume 350, EPAP 5, minimal pressure support 6, maximal pressure support 20 inspiratory time of 0.85 and a rise of 3 with 35% FiO2 can be used. Use of narcotics and benzodiazepines have the risk of worsening her chronic hypercarbic respiratory failure and would not use these unless absolutely necessary and if needed would use as low-dose as possible. History of Present Illness History of Present Illness Consult date: 01/22/23 Chief complaint: Hypotension,Right Hand Fracture,Alcohol Abuse Narrative: 01/22/2023: This is a new pulmonary consult for COPD, hypercarbic respiratory failure and pneumonia. 56-year-old woman with GOLD? 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 Severe panlobular emphysema throughout all lung [place] on CT scan from 10/29/2021,? on rest 3 L , ambulation 4 L and sleep 3-4 L, intubated 03/08/2020 and 07/02/2020, on nocturnal noninvasive ventilation with a trilogy with poor compliance (initiated 08/23/2022), on Daliresp and triple inhalers.? She is status post left upper lobectomy and bleb resection for spontaneous pneumothorax in 2012.? She has pu
--- NOTE | 2023-01-22 12:59 | PC.NURSE ---
when giving po med to pt, RN dropped pill on floor. pharmacy called for replacement med
--- NOTE | 2023-01-22 13:02 | WPDPN ---
Progress Note: A&P Assessment and Plan (1) Fracture, finger, distal phalanx: Qualifiers: Encounter type: initial encounter Finger: middle finger Fracture type: closed Fracture alignment: displaced Laterality: right Qualified Code(s): S62.632A - Displaced fracture of distal phalanx of right middle finger, initial encounter for closed fracture Code(s): S62.639A - Displaced fracture of distal phalanx of unspecified finger, initial encounter for closed fracture Status: Acute Assessment and Plan: Active flexion intact. (2) Fracture of third metacarpal bone of right hand: Qualifiers: Encounter type: initial encounter Fracture type: closed Metacarpal location: shaft Fracture alignment: displaced Qualified Code(s): S62.322A - Displaced fracture of shaft of third metacarpal bone, right hand, initial encounter for closed fracture Code(s): S62.302A - Unspecified fracture of third metacarpal bone, right hand, initial encounter for closed fracture Status: Acute Assessment and Plan: Not rotated. (3) Fracture of distal phalanx of ring finger: Qualifiers: Encounter type: initial encounter Fracture type: closed Fracture alignment: displaced Laterality: right Qualified Code(s): S62.634A - Displaced fracture of distal phalanx of right ring finger, initial encounter for closed fracture Code(s): S62.638A - Displaced fracture of distal phalanx of other finger, initial encounter for closed fracture Status: Acute Assessment and Plan: Active flexion intact Plan Continue splint. Subjective Date/time seen: 01/22/23 13:02 Exam Narrative: R forearm to fingers splint inspected along with hand. Fingers are perfused well. All move actively. Moderate bruising. Splint well fitted. Objective Data Vital Signs Vital Signs: Vital Signs - 24 hr 01/21/23 13:11 01/21/23 14:25 01/21/23 14:50 Temperature Pulse Rate 89 92 Pulse Rate [Bilateral Palpation] Respiratory Rate 20 Blood Pressure 83/58 L Pulse Oximetry 94 98 Oxygen Delivery Oxygen Flow Rate Fraction of Inspired Oxygen 01/21/23 16:00 01/21/23 14:00 01/21/23 16:00 Temperature Pulse Rate 87 103 H Pulse Rate [Bilateral Palpation] Respiratory Rate Blood Pressure Pulse Oximetry 93 Oxygen Delivery Nasal Cannula Oxygen Flow Rate 4 Fraction of Inspired Oxygen 01/21/23 16:00 01/21/23 16:15 04/05/23 16:25 Temperature 97.6 F Pulse Rate 102 H 113 H 112 H Pulse Rate [Bilateral Palpation] Respiratory Rate 20 20 20 Blood Pressure 87/65 L Pulse Oximetry 100 Oxygen Delivery Oxygen Flow Rate Fraction of Inspired Oxygen 01/21/23 18:00 01/21/23 20:00 01/21/23 20:00 Temperature Pulse Rate 107 H 122 H Pulse Rate [Bilateral Palpation] Respiratory Rate Blood Pressure Pulse Oximetry 93 Oxygen Delivery Nasal Cannula Oxygen Flow Rate 4 Fraction of Inspired Oxygen 01/21/23 20:00 01/21/23 23:11 01/21/23 21:00 Temperature 97.6 F 97.7 F Pulse Rate 111 H 115 H 97 Pulse Rate [Bilateral Palpation] Respiratory Rate 24 H 22 H 18 Blood Pressure 97/48 L 95/53 L Pulse Oximetry 95 92 98 Oxygen Delivery Nasal Cannula Oxygen Flow Rate 4 Fraction of Inspired Oxygen 01/21/23 22:00 01/22/23 00:00 01/22/23 00:00 Temperature Pulse Rate 92 108 H Pulse Rate [Bilateral Palpation] Respiratory Rate 22 H Blood Pressure Pulse Oximetry 96 100 Oxygen Delivery BiPAP Oxygen Flow Rate Fraction of Inspired Oxygen 35 01/22/23 04:00 01/22/23 04:00 01/22/23 04:00 Temperature 97.9 F Pulse Rate 110 H 107 H Pulse Rate [Bilateral Palpation] Respiratory Rate 18 Blood Pressure 127/80 Pulse Oximetry 98 98 Oxygen Delivery Nasal Cannula Oxygen Flow Rate 4 Fraction of Inspired Oxygen 01/22/23 05:27 01/22/23 08:00 01/22/23 08:20 Temperature Pulse Rate 145 H 11
[2023-01-22] MEDS: LEVALBUTEROL NEB 1.25 MG/3 ML INHALATION ×2 (13:20→20:30)
[2023-01-22] MEDS: IPRATROPIUM BR 0.02% INH SOLN 0.5 MG/2.5 ML VIAL INHALATION ×2 (13:20→20:30)
[2023-01-22] MEDS: BUDESONIDE RESPULE NEB 0.5 MG/2 ML AMP INHALATION ×2 (13:20→20:31)
[2023-01-22 16:14] LABS: Glucose Point of Care 98 mg/dl (65-105)
[2023-01-22] MEDS: ROFLUMILAST 500 MCG TABLET PO (18:14)
[2023-01-22 20:23] LABS: Glucose Point of Care 146 mg/dl (65-105)
[2023-01-23] VITALS (21 sets, daily range): BP systolic 85–95; BP diastolic 44–62; PULSE 96–119; RESP 15–39; TEMP 36.2–37.2; O2SAT 93–100
[2023-01-23] MEDS: IPRATROPIUM BR 0.02% INH SOLN 0.5 MG/2.5 ML VIAL INHALATION ×4 (02:10→21:29)
[2023-01-23] MEDS: LEVALBUTEROL NEB 1.25 MG/3 ML INHALATION ×4 (02:10→21:28)
[2023-01-23 05:24] LABS: Basophils Percent Auto 0.3 % (0.2-1.2); Eosinophils Absolute Auto 0.1 K/mm3 (0-0.3); Eosinophils Percent Auto 1.4 % (0-4.4); Hematocrit 28.6 % (37.0-47.0); Hemoglobin 8.5 g/dL (12.0-15.0); Immature Granulocyte Absolute 0.02 K/mm3 (0.00-0.031); Immature Granulocyte Percent A 0.3 % (0-0.5); Lymphocytes Absolute Auto 0.85 K/mm3 (0.9-3.2); Lymphocytes Percent Auto 14.4 % (18.3-44.2); Mean Corpuscular HGB Conc 29.7 g/dl (32-36); Mean Corpuscular Hemoglobin 30.5 pg (26-34); Mean Corpuscular Volume 102.5 fl (80-100); Mean Platelet Volume 9.1 fl (7.4-10.4); Monocytes Absolute Auto 0.5 K/mm3 (0.1-0.6); Monocytes Percent Auto 9.2 % (2.6-8.5); Neutrophils Absolute Auto 4.4 K/mm3 (1.3-6.7); Neutrophils Percent Auto 74.4 % (45.5-73.1); Platelet Count Result 127 k/mm3 (150-375); Red Blood Count 2.79 M/mm3 (4.2-5.4); Red Cell Distribution Width 13.5 % (11.5-14.5); White Blood Count 5.9 K/mm3 (4.5-10.0)
[2023-01-23 05:37] LABS: Alanine Aminotransferase 48 U/L (6-35); Albumin Level 2.4 g/dL (3.5-5.1); Alkaline Phosphatase 76 U/L (38-126); Aspartate Amino Transferase 35 U/L (14-36); Bilirubin,Total 0.5 mg/dL (0.2-1.3); Calcium 7.5 mg/dL (8.4-10.2); Carbon Dioxide > 40 mmol/L (22-30); Chloride 95 mmol/L (98-107); Estimated CRCL calculation 92 ml/min; Estimated Glomerular Filt Rate > 60; Glucose 102 mg/dL (65-110); Sodium 139 mmol/L (137-145)
[2023-01-23 05:43] LABS: Blood Urea Nitrogen < 2 mg/dL (7-17)
[2023-01-23 05:50] LABS: Hypochromasia 1+ (NORMAL)
[2023-01-23 05:55] LABS: Schistocytes None Seen (NORMAL)
[2023-01-23] MEDS: BUDESONIDE RESPULE NEB 0.5 MG/2 ML AMP INHALATION ×2 (07:34→21:28)
[2023-01-23 08:03] LABS: Glucose Point of Care 97 mg/dl (65-105)
[2023-01-23] MEDS: LORazepam INJ (*CRX) 2 MG/ML VIAL 0.5 MG IV PUSH ×3 (09:27→22:44)
[2023-01-23] MEDS: THIAMINE HCL 100 MG TABLET PO (09:28)
[2023-01-23] MEDS: FOLIC ACID 1 MG TABLET PO (09:28)
[2023-01-23] MEDS: FLUoxetine HCL 20 MG CAPSULE PO (09:28)
[2023-01-23] MEDS: ROFLUMILAST 500 MCG TABLET PO (09:28)
[2023-01-23] MEDS: MULTIVITAMINS THERAPEUTIC TAB (*BKC) 1 TABLET PO (09:28)
[2023-01-23 11:08] LABS: Alveolar/Arterial O2 Gradient 67.6 mmHg; Base Excess ABG 13.5 mEq/l (+/-2.0); Fractional Inspired Oxygen 30 %; HCO3 ABG 40.2 mEq/l (22.0-26.0); Oxygen Content ABG 12.3 %vol (16.0-22.0); Oxygen Saturation ABG 93.4 % (95.0-100.0); Oxyhemoglobin 93.1 % THb (90.0-100.0); PO2 ABG 69.3 mmHg (80.0-100.0); PO2 FiO2 Ratio Arterial Blood 2.31 %; Total Hemoglobin 9.3 g/dL (12.0-18.0); pH ABG 7.406 (7.350-7.450)
[2023-01-23 11:11] LABS: Device NON-INVASIVE VENT; Non-Invasive Vent Rate 12 /MIN; PCO2 ABG 65.5 mmHg (35.0-45.0); Site Drawn RIGHT BRACHIAL
[2023-01-23 11:12] LABS: Non-Invasive Expiratory Pressure 5 CMH2O
[2023-01-23 11:14] LABS: Glucose Point of Care 144 mg/dl (65-105)
[2023-01-23] MEDS: POTASSIUM CHLORIDE 20 MEQ PACKET (FOR LIQUID) 40 MEQ PO (11:56)
--- NOTE | 2023-01-23 13:10 | PC.NURSE ---
This patient, Esther Brink, was received from [[id number]] on 01/23/23 at 1310. Patient/family oriented to unit policies and routines.
--- NOTE | 2023-01-23 13:21 | PC.NURSE ---
This patient, Esther Brink, was transferred to [[id number] ] on 01/23/23 at 1300. Personal belongings sent with patient. Report given to [Lissett KAY ]. Appropriate documentation sent with patient. Patient sent with all belongings, with 4 L Nasal canula. Patient alert and oriented, no distress noted.
--- NOTE | 2023-01-23 15:09 | PM.IMPN ---
Progress Note: A&P Assessment and Plan (1) Acute hypotension: Code(s): I95.9 - Hypotension, unspecified Status: Acute Assessment and Plan: Gentle IVF hydration NS at 70 ml/hr given, monitor closely for volume overload, EF 40-45%, systolic runs in the 90s at baseline 01/22: BP much improved today, CXR shows developing congestion, monitor off IVF 01/23/2023 interval history: patient remains somnolent on BiPAP unable to provide significant review of symptom, repeat ABG showed her baseline pH 7.406, pCO2 of 65, and pO2 69.3 unknown and NC ventilator, patient clinical symptoms are improving, patient with a right 4th distal phalanx and metacarpal fracture with a splint seen by plastic surgeon recommended to continue present management. (2) Left hand fracture: Qualifiers: Encounter type: initial encounter Fracture type: closed Qualified Code(s): S62.92XA - Unspecified fracture of left wrist and hand, initial encounter for closed fracture Code(s): S62.92XA - Unspecified fracture of left wrist and hand, initial encounter for closed fracture Status: Deleted Assessment and Plan: Ortho consult appreciated, patient will need to be referred to a hand specialist, consult placed to Dr Graf Keep splint in place, nonweightbearing right upper extremity, ice, elevate and pain control (3) Chronic respiratory failure with hypoxia and hypercapnia: Code(s): J96.11 - Chronic respiratory failure with hypoxia; J96.12 - Chronic respiratory failure with hypercapnia Status: Acute Assessment and Plan: 01/21: Patient became hypercapnic and hypoxic after overdosing on home Xanax from her purse, ABGs noted, box toe stitcher notified of tenuous status, monitor respiratory status closely, continue BiPAP support with AVAPS 01/22: Appreciate pulm consultation, pending (4) Chronic alcoholic hepatitis: Code(s): K70.10 - Alcoholic hepatitis without ascites Status: Acute Assessment and Plan: Elevated LFTs noted, suspect alcohol use is etiology Librium d/c 01/21, CIWA consistently under 8 (5) Protein-calorie malnutrition, severe: Code(s): E43 - Unspecified severe protein-calorie malnutrition Status: Acute Assessment and Plan: a1c = 4.7, TSH = 2.62 Dietitian consulted, dietary supplements provided (6) Alcohol abuse: Code(s): F10.10 - Alcohol abuse, uncomplicated Status: Acute Assessment and Plan: CIWA, librium prn, cont MVI + thiamine, folic acid (7) B12 deficiency anemia: Qualifiers: Vitamin B12 deficiency anemia type: unspecified B12 deficiency Qualified Code(s): D51.9 - Vitamin B12 deficiency anemia, unspecified Code(s): D51.9 - Vitamin B12 deficiency anemia, unspecified Status: Acute Assessment and Plan: B12 + folate wnl (8) Hyperglycemia: Code(s): R73.9 - Hyperglycemia, unspecified Status: Acute Assessment and Plan: a1c wnl Blood glucose reviewed 01/22 (9) Anxiety: Code(s): F41.9 - Anxiety disorder, unspecified Status: Acute Assessment and Plan: Hold home xanax while somnolent, ativan prn CIWA (10) Somnolence: Code(s): R40.0 - Somnolence Status: Acute Assessment and Plan: 01/20: intentional overdose on home xanax, these have been taken and locked away 01/22: still somnolent, CIWA < 8, check ammonia, hold IVF due to HF and congestion on CXR, check ABG, hold remeron Plan DVT prophylaxis with SCDs GI prophylaxis not indicated Code status full code Subjective Date/time seen: 01/23/23 15:09 Interval history: 57-year-old female with past medical history of alcohol abuse, chronic hypoxic and hypercapnic respiratory failure with previous intubation, nonischemic cardiomyopathy, malnutrition with presenting with a fall. Patient quite delirious and confused last evening. Overnight, she received mo
[2023-01-23] MEDS: ACETAMINOPHEN 325 MG TABLET 650 MG PO (20:29)
[2023-01-24] VITALS (16 sets, daily range): BP systolic 87–100; BP diastolic 46–60; PULSE 71–121; RESP 16–30; TEMP 36.3–37; O2SAT 94–100
[2023-01-24 00:18] LABS: Glucose Point of Care 121 mg/dl (65-105)
[2023-01-24] MEDS: LEVALBUTEROL NEB 1.25 MG/3 ML INHALATION ×4 (02:10→20:33)
[2023-01-24] MEDS: IPRATROPIUM BR 0.02% INH SOLN 0.5 MG/2.5 ML VIAL INHALATION ×4 (02:10→20:33)
[2023-01-24 05:19] LABS: Basophils Percent Auto 0.4 % (0.2-1.2); Eosinophils Absolute Auto 0.1 K/mm3 (0-0.3); Eosinophils Percent Auto 1.7 % (0-4.4); Hematocrit 27.8 % (37.0-47.0); Hemoglobin 8.1 g/dL (12.0-15.0); Immature Granulocyte Absolute 0.01 K/mm3 (0.00-0.031); Immature Granulocyte Percent A 0.2 % (0-0.5); Lymphocytes Absolute Auto 0.73 K/mm3 (0.9-3.2); Lymphocytes Percent Auto 15.8 % (18.3-44.2); Mean Corpuscular HGB Conc 29.1 g/dl (32-36); Mean Corpuscular Hemoglobin 30.8 pg (26-34); Mean Corpuscular Volume 105.7 fl (80-100); Mean Platelet Volume 9.3 fl (7.4-10.4); Monocytes Absolute Auto 0.4 K/mm3 (0.1-0.6); Monocytes Percent Auto 9.5 % (2.6-8.5); Neutrophils Absolute Auto 3.3 K/mm3 (1.3-6.7); Neutrophils Percent Auto 72.4 % (45.5-73.1); Platelet Count Result 134 k/mm3 (150-375); Red Blood Count 2.63 M/mm3 (4.2-5.4); Red Cell Distribution Width 13.9 % (11.5-14.5); White Blood Count 4.6 K/mm3 (4.5-10.0)
[2023-01-24 05:26] LABS: Alanine Aminotransferase 42 U/L (6-35); Albumin Level 2.5 g/dL (3.5-5.1); Alkaline Phosphatase 76 U/L (38-126); Aspartate Amino Transferase 28 U/L (14-36); Bilirubin,Total 0.5 mg/dL (0.2-1.3); Blood Urea Nitrogen 2 mg/dL (7-17); Calcium 7.6 mg/dL (8.4-10.2); Carbon Dioxide > 40 mmol/L (22-30); Chloride 97 mmol/L (98-107); Estimated CRCL calculation 101 ml/min; Estimated Glomerular Filt Rate > 60; Glucose 113 mg/dL (65-110); Potassium 3.5 mmol/L (3.4-5.0); Sodium 138 mmol/L (137-145)
[2023-01-24 05:46] LABS: Hypochromasia 2+ (NORMAL); Platelet Estimate Adequate (Adequate)
[2023-01-24 05:47] LABS: Schistocytes None Seen (NORMAL)
[2023-01-24 07:48] LABS: Glucose Point of Care 87 mg/dl (65-105)
[2023-01-24] MEDS: BUDESONIDE RESPULE NEB 0.5 MG/2 ML AMP INHALATION ×2 (07:53→20:33)
[2023-01-24] MEDS: FLUoxetine HCL 20 MG CAPSULE PO (08:19)
[2023-01-24] MEDS: FOLIC ACID 1 MG TABLET PO (08:19)
[2023-01-24] MEDS: THIAMINE HCL 100 MG TABLET PO (08:19)
[2023-01-24] MEDS: ROFLUMILAST 500 MCG TABLET PO (08:19)
[2023-01-24] MEDS: MULTIVITAMINS THERAPEUTIC TAB (*BKC) 1 TABLET PO (08:19)
[2023-01-24 08:57] LABS: Magnesium 1.9 mg/dL (1.6-2.3)
[2023-01-24] MEDS: POTASSIUM CHLORIDE 20 MEQ TABLET 40 MEQ PO (09:30)
[2023-01-24 11:54] LABS: Glucose Point of Care 97 mg/dl (65-105)
--- NOTE | 2023-01-24 12:17 | PM.IMPN ---
Progress Note: A&P Assessment and Plan (1) Acute hypotension: Code(s): I95.9 - Hypotension, unspecified Status: Acute Assessment and Plan: Gentle IVF hydration NS at 70 ml/hr given, monitor closely for volume overload, EF 40-45%, systolic runs in the 90s at baseline 01/22: BP much improved today, CXR shows developing congestion, monitor off IVF 01/24/2023 interval history: on 01/23 repeat ABG showed her baseline pH 7.406, pCO2 of 65, and pO2 69.3 and wasn on noninvansive ventilator, today patient is off BiPAP and states feeling much better and wants to go home, patient clinical symptoms are improving, will continue to monitor and reassess before discharging the patient tomorrow, as patient has a several recurrent admissions, patient with a right 4th distal phalanx and metacarpal fracture with a splint seen by plastic surgeon recommended to continue present management. (2) Left hand fracture: Qualifiers: Encounter type: initial encounter Fracture type: closed Qualified Code(s): S62.92XA - Unspecified fracture of left wrist and hand, initial encounter for closed fracture Code(s): S62.92XA - Unspecified fracture of left wrist and hand, initial encounter for closed fracture Status: Deleted Assessment and Plan: Ortho consult appreciated, patient will need to be referred to a hand specialist, consult placed to Dr Graf Keep splint in place, nonweightbearing right upper extremity, ice, elevate and pain control (3) Chronic respiratory failure with hypoxia and hypercapnia: Code(s): J96.11 - Chronic respiratory failure with hypoxia; J96.12 - Chronic respiratory failure with hypercapnia Status: Acute Assessment and Plan: 01/21: Patient became hypercapnic and hypoxic after overdosing on home Xanax from her purse, ABGs noted, ice rink attendant notified of tenuous status, monitor respiratory status closely, continue BiPAP support with AVAPS 01/22: Appreciate pulm consultation, pending (4) Chronic alcoholic hepatitis: Code(s): K70.10 - Alcoholic hepatitis without ascites Status: Acute Assessment and Plan: Elevated LFTs noted, suspect alcohol use is etiology Librium d/c 01/21, CIWA consistently under 8 (5) Protein-calorie malnutrition, severe: Code(s): E43 - Unspecified severe protein-calorie malnutrition Status: Acute Assessment and Plan: a1c = 4.7, TSH = 2.62 Dietitian consulted, dietary supplements provided (6) Alcohol abuse: Code(s): F10.10 - Alcohol abuse, uncomplicated Status: Acute Assessment and Plan: CIWA, librium prn, cont MVI + thiamine, folic acid (7) B12 deficiency anemia: Qualifiers: Vitamin B12 deficiency anemia type: unspecified B12 deficiency Qualified Code(s): D51.9 - Vitamin B12 deficiency anemia, unspecified Code(s): D51.9 - Vitamin B12 deficiency anemia, unspecified Status: Acute Assessment and Plan: B12 + folate wnl (8) Hyperglycemia: Code(s): R73.9 - Hyperglycemia, unspecified Status: Acute Assessment and Plan: a1c wnl Blood glucose reviewed 01/22 (9) Anxiety: Code(s): F41.9 - Anxiety disorder, unspecified Status: Acute Assessment and Plan: Hold home xanax while somnolent, ativan prn CIWA (10) Somnolence: Code(s): R40.0 - Somnolence Status: Acute Assessment and Plan: 01/20: intentional overdose on home xanax, these have been taken and locked away 01/22: still somnolent, CIWA < 8, check ammonia, hold IVF due to HF and congestion on CXR, check ABG, hold remeron Plan DVT prophylaxis with SCDs GI prophylaxis not indicated Code status full code Subjective Date/time seen: 01/24/23 12:17 Interval history: 57-year-old female with past medical history of alcohol abuse, chronic hypoxic and hypercapnic respiratory failure with previous intubation, nonisc
[2023-01-24] MEDS: LORazepam INJ (*CRX) 2 MG/ML VIAL 0.5 MG IV PUSH (14:18)
[2023-01-24 17:26] LABS: Glucose Point of Care 98 mg/dl (65-105)
[2023-01-24] MEDS: ACYCLOVIR 5% OINTMENT 15 GM TUBE 1 APPLIC TOPICAL ×2 (18:51→22:24)
[2023-01-24] MEDS: ACETAMINOPHEN 325 MG TABLET 650 MG PO (22:24)
[2023-01-24 23:18] LABS: Glucose Point of Care 98 mg/dl (65-105)
[2023-01-25] VITALS (15 sets, daily range): BP systolic 88–99; BP diastolic 50–64; PULSE 73–109; RESP 16–22; TEMP 36.5–37.1; O2SAT 93–100
[2023-01-25] MEDS: LORazepam INJ (*CRX) 2 MG/ML VIAL 0.5 MG IV PUSH ×2 (01:19→11:41)
--- NOTE | 2023-01-25 02:37 | PCRCNOTE ---
pt refused tx and AVAPS on standby RN informed.
[2023-01-25 05:10] LABS: Basophils Percent Auto 0.5 % (0.2-1.2); Eosinophils Absolute Auto 0.1 K/mm3 (0-0.3); Eosinophils Percent Auto 1.7 % (0-4.4); Hematocrit 27.4 % (37.0-47.0); Hemoglobin 8.3 g/dL (12.0-15.0); Immature Granulocyte Absolute 0.02 K/mm3 (0.00-0.031); Immature Granulocyte Percent A 0.3 % (0-0.5); Lymphocytes Absolute Auto 1.08 K/mm3 (0.9-3.2); Lymphocytes Percent Auto 18.2 % (18.3-44.2); Mean Corpuscular HGB Conc 30.3 g/dl (32-36); Mean Corpuscular Hemoglobin 31.1 pg (26-34); Mean Corpuscular Volume 102.6 fl (80-100); Mean Platelet Volume 9.4 fl (7.4-10.4); Monocytes Absolute Auto 0.6 K/mm3 (0.1-0.6); Monocytes Percent Auto 9.5 % (2.6-8.5); Neutrophils Absolute Auto 4.1 K/mm3 (1.3-6.7); Neutrophils Percent Auto 69.8 % (45.5-73.1); Platelet Count Result 170 k/mm3 (150-375); Red Blood Count 2.67 M/mm3 (4.2-5.4); White Blood Count 5.9 K/mm3 (4.5-10.0)
[2023-01-25 05:19] LABS: Alanine Aminotransferase 43 U/L (6-35); Albumin Level 2.8 g/dL (3.5-5.1); Alkaline Phosphatase 88 U/L (38-126); Aspartate Amino Transferase 29 U/L (14-36); Bilirubin,Total 0.5 mg/dL (0.2-1.3); Blood Urea Nitrogen 2 mg/dL (7-17); Calcium 8.1 mg/dL (8.4-10.2); Carbon Dioxide > 40 mmol/L (22-30); Chloride 95 mmol/L (98-107); Estimated CRCL calculation 79 ml/min; Estimated Glomerular Filt Rate > 60; Glucose 90 mg/dL (65-110); Potassium 4.3 mmol/L (3.4-5.0); Sodium 136 mmol/L (137-145)
[2023-01-25] MEDS: FLUoxetine HCL 20 MG CAPSULE PO (07:46)
[2023-01-25] MEDS: ROFLUMILAST 500 MCG TABLET PO (07:46)
[2023-01-25] MEDS: FOLIC ACID 1 MG TABLET PO (07:46)
[2023-01-25] MEDS: THIAMINE HCL 100 MG TABLET PO (07:46)
[2023-01-25] MEDS: MULTIVITAMINS THERAPEUTIC TAB (*BKC) 1 TABLET PO (07:46)
[2023-01-25] MEDS: ACYCLOVIR 5% OINTMENT 15 GM TUBE 1 APPLIC TOPICAL ×5 (07:47→20:10)
[2023-01-25] MEDS: LEVALBUTEROL NEB 1.25 MG/3 ML INHALATION ×3 (07:52→21:36)
[2023-01-25] MEDS: BUDESONIDE RESPULE NEB 0.5 MG/2 ML AMP INHALATION ×2 (07:52→21:38)
[2023-01-25] MEDS: IPRATROPIUM BR 0.02% INH SOLN 0.5 MG/2.5 ML VIAL INHALATION ×3 (07:52→21:39)
[2023-01-25] MEDS: hydrOXYzine HCL 25 MG TABLET PO ×2 (08:47→17:43)
[2023-01-25 09:43] LABS: Glucose Point of Care 102 mg/dl (65-105)
--- NOTE | 2023-01-25 10:07 | PM.IMPN ---
Progress Note: A&P Assessment and Plan (1) Acute hypotension: Code(s): I95.9 - Hypotension, unspecified Status: Acute Assessment and Plan: Gentle IVF hydration NS at 70 ml/hr given, monitor closely for volume overload, EF 40-45%, systolic runs in the 90s at baseline 01/22: BP much improved today, CXR shows developing congestion, monitor off IVF 01/25/2023 interval history: on 01/23 repeat ABG showed her baseline pH 7.406, pCO2 of 65, and pO2 69.3 and was on noninvansive ventilator, today patient is off BiPAP and states feeling much better and wants to go home, patient clinical symptoms are improving, will continue to monitor and reassess before discharging the patient tomorrow, as patient has a several recurrent admissions, patient continue to complains of anxiety, will give atarax 25mg PO PRN, patient with a right 4th distal phalanx and metacarpal fracture with a splint seen by plastic surgeon recommended to continue present management. (2) Left hand fracture: Qualifiers: Encounter type: initial encounter Fracture type: closed Qualified Code(s): S62.92XA - Unspecified fracture of left wrist and hand, initial encounter for closed fracture Code(s): S62.92XA - Unspecified fracture of left wrist and hand, initial encounter for closed fracture Status: Deleted Assessment and Plan: Ortho consult appreciated, patient will need to be referred to a hand specialist, consult placed to Dr Graf Keep splint in place, nonweightbearing right upper extremity, ice, elevate and pain control (3) Chronic respiratory failure with hypoxia and hypercapnia: Code(s): J96.11 - Chronic respiratory failure with hypoxia; J96.12 - Chronic respiratory failure with hypercapnia Status: Acute Assessment and Plan: 01/21: Patient became hypercapnic and hypoxic after overdosing on home Xanax from her purse, ABGs noted, machine operator notified of tenuous status, monitor respiratory status closely, continue BiPAP support with AVAPS 01/22: Appreciate pulm consultation, pending (4) Chronic alcoholic hepatitis: Code(s): K70.10 - Alcoholic hepatitis without ascites Status: Acute Assessment and Plan: Elevated LFTs noted, suspect alcohol use is etiology Librium d/c 01/21, CIWA consistently under 8 (5) Protein-calorie malnutrition, severe: Code(s): E43 - Unspecified severe protein-calorie malnutrition Status: Acute Assessment and Plan: a1c = 4.7, TSH = 2.62 Dietitian consulted, dietary supplements provided (6) Alcohol abuse: Code(s): F10.10 - Alcohol abuse, uncomplicated Status: Acute Assessment and Plan: CIWA, librium prn, cont MVI + thiamine, folic acid (7) B12 deficiency anemia: Qualifiers: Vitamin B12 deficiency anemia type: unspecified B12 deficiency Qualified Code(s): D51.9 - Vitamin B12 deficiency anemia, unspecified Code(s): D51.9 - Vitamin B12 deficiency anemia, unspecified Status: Acute Assessment and Plan: B12 + folate wnl (8) Hyperglycemia: Code(s): R73.9 - Hyperglycemia, unspecified Status: Acute Assessment and Plan: a1c wnl Blood glucose reviewed 01/22 (9) Anxiety: Code(s): F41.9 - Anxiety disorder, unspecified Status: Acute Assessment and Plan: Hold home xanax while somnolent, ativan prn CIWA (10) Somnolence: Code(s): R40.0 - Somnolence Status: Acute Assessment and Plan: 01/20: intentional overdose on home xanax, these have been taken and locked away 01/22: still somnolent, CIWA < 8, check ammonia, hold IVF due to HF and congestion on CXR, check ABG, hold remeron Plan DVT prophylaxis with SCDs GI prophylaxis not indicated Code status full code Subjective Date/time seen: 01/25/23 10:07 Interval history: 57-year-old female with past medical history of alcohol abuse, chronic hyp
[2023-01-25 11:42] LABS: Glucose Point of Care 90 mg/dl (65-105)
[2023-01-25 21:30] LABS: Glucose Point of Care 140 mg/dl (65-105)
[2023-01-25] MEDS: ACETAMINOPHEN 325 MG TABLET 650 MG PO (22:22)
[2023-01-26] VITALS (14 sets, daily range): BP systolic 84–105; BP diastolic 44–58; PULSE 89–119; RESP 16–20; TEMP 36.2–36.8; O2SAT 85–100
[2023-01-26 06:18] LABS: Basophils Absolute Auto 0.1 K/mm3 (0.0-0.1); Basophils Percent Auto 1.3 % (0.2-1.2); Eosinophils Absolute Auto 0.1 K/mm3 (0-0.3); Eosinophils Percent Auto 3.6 % (0-4.4); Hematocrit 30.6 % (37.0-47.0); Hemoglobin 9.2 g/dL (12.0-15.0); Immature Granulocyte Absolute 0.01 K/mm3 (0.00-0.031); Immature Granulocyte Percent A 0.3 % (0-0.5); Lymphocytes Absolute Auto 0.91 K/mm3 (0.9-3.2); Lymphocytes Percent Auto 23.5 % (18.3-44.2); Mean Corpuscular HGB Conc 30.1 g/dl (32-36); Mean Corpuscular Hemoglobin 30.6 pg (26-34); Mean Corpuscular Volume 101.7 fl (80-100); Mean Platelet Volume 9.5 fl (7.4-10.4); Monocytes Absolute Auto 0.5 K/mm3 (0.1-0.6); Monocytes Percent Auto 12.1 % (2.6-8.5); Neutrophils Absolute Auto 2.3 K/mm3 (1.3-6.7); Neutrophils Percent Auto 59.2 % (45.5-73.1); Platelet Count Result 249 k/mm3 (150-375); Red Blood Count 3.01 M/mm3 (4.2-5.4); Red Cell Distribution Width 13.9 % (11.5-14.5); White Blood Count 3.9 K/mm3 (4.5-10.0)
[2023-01-26 06:26] LABS: Alanine Aminotransferase 36 U/L (6-35); Albumin Level 3.2 g/dL (3.5-5.1); Alkaline Phosphatase 91 U/L (38-126); Aspartate Amino Transferase 25 U/L (14-36); Bilirubin,Total 0.4 mg/dL (0.2-1.3); Blood Urea Nitrogen 3 mg/dL (7-17); Calcium 8.5 mg/dL (8.4-10.2); Carbon Dioxide > 40 mmol/L (22-30); Chloride 95 mmol/L (98-107); Estimated CRCL calculation 53 ml/min; Estimated Glomerular Filt Rate > 60; Glucose 90 mg/dL (65-110); Potassium 4.1 mmol/L (3.4-5.0); Sodium 138 mmol/L (137-145)
[2023-01-26] MEDS: LEVALBUTEROL NEB 1.25 MG/3 ML INHALATION ×2 (07:23→13:23)
[2023-01-26] MEDS: BUDESONIDE RESPULE NEB 0.5 MG/2 ML AMP INHALATION (07:23)
[2023-01-26] MEDS: IPRATROPIUM BR 0.02% INH SOLN 0.5 MG/2.5 ML VIAL INHALATION ×2 (07:23→13:23)
[2023-01-26] MEDS: ROFLUMILAST 500 MCG TABLET PO (07:48)
[2023-01-26] MEDS: ACYCLOVIR 5% OINTMENT 15 GM TUBE 1 APPLIC TOPICAL ×2 (07:48→11:01)
[2023-01-26] MEDS: MULTIVITAMINS THERAPEUTIC TAB (*BKC) 1 TABLET PO (07:49)
[2023-01-26] MEDS: THIAMINE HCL 100 MG TABLET PO (07:49)
[2023-01-26] MEDS: FLUoxetine HCL 20 MG CAPSULE PO (07:49)
[2023-01-26] MEDS: FOLIC ACID 1 MG TABLET PO (07:49)
[2023-01-26] MEDS: hydrOXYzine HCL 25 MG TABLET PO (07:51)
[2023-01-26 08:46] LABS: Glucose Point of Care 113 mg/dl (65-105)
--- NOTE | 2023-01-26 11:15 | HOMEO2EVAL ---
Evaluation was performed at [facility] Home Oxygen Evaluation RC: Home Oxygen (O2) Evaluation Start: 01/26/23 11:12 Freq: Status: Active Protocol: RPE Activity Type Activity Date Activity User E-sign Co-sign Detail Recorded Client Recorded Date Recorded By Document 01/26/23 10:30 LOLA RT_012 01/26/23 11:15 LOLA Document 01/26/23 10:31 LOLA [id number]_012 01/26/23 11:15 LOLA Document 01/26/23 10:32 LOLA [email or web address] 01/26/23 11:15 LOLA Document 01/26/23 10:35 LOLA [id number] 01/26/23 11:15 LOLA Document 01/26/23 10:36 LOLA [id number] 01/26/23 11:15 LOLA Document 01/26/23 10:45 LOLA [email or web address] 01/26/23 11:15 LOLA 01/26/23 01/26/23 01/26/23 10:30 10:31 10:32 Home O2 Evaluation [Oxygen] -Test Phase Resting Resting Resting -Oxygen Delivery Room Air Nasal Cannula Nasal Cannula -Oxygen Flow Rate (L/min) 2 3 [Pulse Oximetry] -Pulse Oximetry (90-100 %) 85 L 87 L 92 [Pulse Rate] -Pulse Rate (60-100 beats/min) 89 [Comments] -Home Oxygen Evaluation Comments Pt requires 3 L at rest and 4 L with activity 01/26/23 01/26/23 01/26/23 10:35 10:36 10:45 Home O2 Evaluation [Oxygen] -Test Phase Exercise Exercise Resting -Oxygen Delivery Nasal Cannula Nasal Cannula Nasal Cannula -Oxygen Flow Rate (L/min) 3 4 3 [Pulse Oximetry] -Pulse Oximetry (90-100 %) 88 L 91 93 [Pulse Rate] -Pulse Rate (60-100 beats/min) 119 H 92 [Comments] -Home Oxygen Evaluation Comments
--- NOTE | 2023-01-26 11:17 | PCRCNOTE ---
Home O2 eval done, 3 L rest and 4 L activity. Pt states she will wear her O2 at 4liters. I tries to explain the need to decrease O2, unsure if she will be compliant with this. Pt has O2 with [facility]. I will call to have [facility] bring in tank for transport back home when D/C
[2023-01-26 11:39] LABS: Glucose Point of Care 101 mg/dl (65-105)
--- NOTE | 2023-01-26 11:49 | PM.DS ---
DS: Admitting Diagnosis Discharge Date 01/25/2023 Admitting Diagnosis Fall with hand pain DS: Discharge Diagnosis Discharge Diagnosis (1) Acute hypotension: Code(s): I95.9 - Hypotension, unspecified Status: Acute Assessment and Plan: Gentle IVF hydration NS at 70 ml/hr given, monitor closely for volume overload, EF 40-45%, systolic runs in the 90s at baseline 01/22: BP much improved today, CXR shows developing congestion, monitor off IVF 01/25/2023 interval history: on 01/23 repeat ABG showed her baseline pH 7.406, pCO2 of 65, and pO2 69.3 and was on noninvansive ventilator, today patient is off BiPAP and states feeling much better and wants to go home, patient clinical symptoms are improving, will continue to monitor and reassess before discharging the patient tomorrow, as patient has a several recurrent admissions, patient continue to complains of anxiety, will give atarax 25mg PO PRN, patient with a right 4th distal phalanx and metacarpal fracture with a splint seen by plastic surgeon recommended to continue present management. (2) Left hand fracture: Qualifiers: Encounter type: initial encounter Fracture type: closed Qualified Code(s): S62.92XA - Unspecified fracture of left wrist and hand, initial encounter for closed fracture Code(s): S62.92XA - Unspecified fracture of left wrist and hand, initial encounter for closed fracture Status: Deleted Assessment and Plan: Ortho consult appreciated, patient will need to be referred to a hand specialist, consult placed to Dr Graf Keep splint in place, nonweightbearing right upper extremity, ice, elevate and pain control (3) Chronic respiratory failure with hypoxia and hypercapnia: Code(s): J96.11 - Chronic respiratory failure with hypoxia; J96.12 - Chronic respiratory failure with hypercapnia Status: Acute Assessment and Plan: 01/21: Patient became hypercapnic and hypoxic after overdosing on home Xanax from her purse, ABGs noted, freelance court reporter notified of tenuous status, monitor respiratory status closely, continue BiPAP support with AVAPS 01/22: Appreciate pulm consultation, pending (4) Chronic alcoholic hepatitis: Code(s): K70.10 - Alcoholic hepatitis without ascites Status: Acute Assessment and Plan: Elevated LFTs noted, suspect alcohol use is etiology Librium d/c 01/21, CIWA consistently under 8 (5) Protein-calorie malnutrition, severe: Code(s): E43 - Unspecified severe protein-calorie malnutrition Status: Acute Assessment and Plan: a1c = 4.7, TSH = 2.62 Dietitian consulted, dietary supplements provided (6) Alcohol abuse: Code(s): F10.10 - Alcohol abuse, uncomplicated Status: Acute Assessment and Plan: CIWA, librium prn, cont MVI + thiamine, folic acid (7) B12 deficiency anemia: Qualifiers: Vitamin B12 deficiency anemia type: unspecified B12 deficiency Qualified Code(s): D51.9 - Vitamin B12 deficiency anemia, unspecified Code(s): D51.9 - Vitamin B12 deficiency anemia, unspecified Status: Acute Assessment and Plan: B12 + folate wnl (8) Hyperglycemia: Code(s): R73.9 - Hyperglycemia, unspecified Status: Acute Assessment and Plan: a1c wnl Blood glucose reviewed 01/22 (9) Anxiety: Code(s): F41.9 - Anxiety disorder, unspecified Status: Acute Assessment and Plan: Hold home xanax while somnolent, ativan prn CIWA (10) Somnolence: Code(s): R40.0 - Somnolence Status: Acute Assessment and Plan: 01/20: intentional overdose on home xanax, these have been taken and locked away 01/22: still somnolent, CIWA < 8, check ammonia, hold IVF due to HF and congestion on CXR, check ABG, hold remeron Plan DVT prophylaxis with SCDs GI prophylaxis not indicated Code status full code DS: Summary Hospital Course Reason for h
--- NOTE | 2023-01-26 12:58 | WPDPN ---
Progress Note: A&P Assessment and Plan (1) Fracture of distal phalanx of ring finger: Qualifiers: Encounter type: initial encounter Fracture type: closed Fracture alignment: displaced Laterality: right Qualified Code(s): S62.634A - Displaced fracture of distal phalanx of right ring finger, initial encounter for closed fracture Code(s): S62.638A - Displaced fracture of distal phalanx of other finger, initial encounter for closed fracture Status: Acute Assessment and Plan: Full active ROM. (2) Fracture of third metacarpal bone of right hand: Qualifiers: Encounter type: initial encounter Fracture type: closed Metacarpal location: shaft Fracture alignment: displaced Qualified Code(s): S62.322A - Displaced fracture of shaft of third metacarpal bone, right hand, initial encounter for closed fracture Code(s): S62.302A - Unspecified fracture of third metacarpal bone, right hand, initial encounter for closed fracture Status: Acute Assessment and Plan: Full active ROM of all digits. (3) Fracture, finger, distal phalanx: Qualifiers: Encounter type: initial encounter Finger: middle finger Fracture type: closed Fracture alignment: displaced Laterality: right Qualified Code(s): S62.632A - Displaced fracture of distal phalanx of right middle finger, initial encounter for closed fracture Code(s): S62.639A - Displaced fracture of distal phalanx of unspecified finger, initial encounter for closed fracture Status: Acute Assessment and Plan: Full active ROM Plan Okay for discharge from my stand point. Discontinue splint to the right UE. Tegaderm to right extensor forearm for a week. May have Dr Graf's phone and address but does not need f/u scheduled at this time. Time Spent With Patient Time with patient: less than 15 minutes Subjective Date/time seen: 01/26/23 12:58 Interval history: Alert. Happy to be going home. Feels very anxious and asks for her Benzodiazepine. Exam Narrative: Has full ROM out of splint. Minimal tenderness. Swelling and bruising diminished 1 cm scab on dorsal forearm. Objective Data Vital Signs Vital Signs: Vital Signs - 24 hr 01/25/23 13:49 01/25/23 14:10 01/25/23 16:00 Temperature 98 F Pulse Rate 99 103 H 104 H Pulse Rate [Bilateral Palpation] Respiratory Rate 16 16 22 H Blood Pressure 89/54 L Pulse Oximetry 96 Oxygen Delivery Oxygen Flow Rate Fraction of Inspired Oxygen 01/25/23 13:00 01/25/23 16:00 01/25/23 20:00 Temperature Pulse Rate 108 H 103 H 103 H Pulse Rate [Bilateral Palpation] Respiratory Rate Blood Pressure Pulse Oximetry Oxygen Delivery Oxygen Flow Rate Fraction of Inspired Oxygen 01/25/23 20:00 01/25/23 21:39 01/25/23 21:53 Temperature Pulse Rate 94 85 Pulse Rate [Bilateral Palpation] Respiratory Rate 16 Blood Pressure Pulse Oximetry 93 Oxygen Delivery Nasal Cannula Oxygen Flow Rate 4 3 Fraction of Inspired Oxygen 01/25/23 21:54 01/25/23 20:00 01/26/23 00:00 Temperature 98.6 F Pulse Rate 92 109 H 106 H Pulse Rate [Bilateral Palpation] Respiratory Rate 16 16 Blood Pressure 99/64 L Pulse Oximetry 100 Oxygen Delivery Oxygen Flow Rate Fraction of Inspired Oxygen 01/26/23 00:00 01/26/23 04:00 01/26/23 04:00 Temperature 98.1 F 98.3 F Pulse Rate 101 H 96 95 Pulse Rate [Bilateral Palpation] Respiratory Rate 20 16 Blood Pressure 85/44 L 105/58 L Pulse Oximetry 99 96 Oxygen Delivery Oxygen Flow Rate Fraction of Inspired Oxygen 01/26/23 07:23 01/26/23 07:23 01/26/23 07:37 Temperature Pulse Rate 91 91 102 H Pulse Rate [Bilateral Palpation] Respiratory Rate 20 20 20 Blood Pressure Pulse Oximetry 100 Oxygen Delivery Nasal Cannula Oxygen Flow Rate 3 Fraction of Inspired Oxygen 32 01/26/23 08:00 01/26/23 08:00 01/26/23 08:00
== END 2023-01-26 15:05 | disposition home or self-care (01) | DRG 314 ==
LOC: ANHED 20:07 → ANHIMU 20:31 → ANH3MEDSUR 01-26 10:20 → ANHIMU 01-27 09:50
PROVIDERS: Internal Medicine; Nurse Practitioner; Student in an Organized Health Care Education/Training Program; Admitting Provider Internal Medicine; Emergency Provider General Practice; PCP Family Medicine; Visit Provider Family Medicine
DX: I95.9 Hypotension, unspecified (principal); E43 Unspecified severe protein-calorie malnutrition; J96.11 Chronic respiratory failure with hypoxia; J96.12 Chronic respiratory failure with hypercapnia; Z68.1 Body mass index [BMI] 19.9 or less, adult; I42.8 Other cardiomyopathies; E87.1 Hypo-osmolality and hyponatremia; S62.392A Other fracture of third metacarpal bone, right hand, initial encounter for closed fracture; S62.634A Displaced fracture of distal phalanx of right ring finger, initial encounter for closed fracture; S62.632A Displaced fracture of distal phalanx of right middle finger, initial encounter for closed fracture; W01.0XXA Fall on same level from slipping, tripping and stumbling without subsequent striking against object, initial encounter; J44.9 Chronic obstructive pulmonary disease, unspecified; K70.10 Alcoholic hepatitis without ascites; F10.10 Alcohol abuse, uncomplicated; D51.9 Vitamin B12 deficiency anemia, unspecified; R73.9 Hyperglycemia, unspecified; E55.9 Vitamin D deficiency, unspecified; R40.0 Somnolence; F41.1 Generalized anxiety disorder; M81.0 Age-related osteoporosis without current pathological fracture; Z91.199 Patient's noncompliance with other medical treatment and regimen due to unspecified reason; Z87.891 Personal history of nicotine dependence; Z86.16 Personal history of COVID-19
CPT/HCPCS: 36415; 36600; 71045; 73090; 73130; 80053; 80307; 81003; 82140; 82375; 82607; 82746; 82805; 82948; 83036; 83050; 83605; 83735; 84100; 84145; 84443; 85025; 85610; 85730; 86140; 94002; 94640; 96360; 96361; 96372; 97161; 97165; 99285; A9270; G0378; J2060; J2270; J7030; J7040

== ENCOUNTER 2023-04-24 16:15 | Emergency (ER) | payer OTHER, MEDICAID, SELFPAY ==
[2023-04-24 16:17] VITALS: BP 103/64; PULSE 102; RESP 20; TEMP 36.3; O2SAT 100
--- NOTE | 2023-04-24 16:44 | ED.GENADULT ---
HPI - General Adult General Chief complaint: Anxiety Stated complaint: Anxiety Time Seen by Provider: 04/24/23 16:38 History of Present Illness HPI narrative: Patient 57-year-old female who presents the emergency department with chief complaint of anxiety. The patient reports that she got into a heated discussion with her son became extremely anxious took one of her Xanax and now is feeling better. The patient states that she has no thoughts of harming herself no thoughts of harming anyone else reports she is able to care for self and reports that she is at her baseline level of breathing and normally uses home oxygen. Related Data Home Medications Medication Instructions Recorded Confirmed roflumilast 500 mcg tablet 500 mcg PO DAILY 12/12/22 01/19/23 (Daliresp) alprazolam 0.25 mg tablet 0.5 mg PO BID PRN severe anxiety 01/19/23 01/19/23 fluoxetine 20 mg capsule 20 mg PO DAILY 01/19/23 01/19/23 mirtazapine 30 mg tablet 30 mg PO HS 01/19/23 01/19/23 Allergies Allergy/AdvReac Type Severity Reaction Status Date / Time No Known Allergies Allergy Verified 10/18/22 12:06 Review of Systems Review of Systems: A 10 system review of systems was completed on the patient and is negative except for what is stated in the HPI. Nursing and ancillary documentation was reviewed. [facility] Past Medical History Medical History Abnormal EKG EKG has previously shown ST elevation which appears to be early repolarization. Alcohol abuse Anxiety Asthma B12 deficiency anemia Chronic anemia Chronic hyponatremia Chronic respiratory failure with hypoxia and hypercapnia On Trelegy unit at nighttime. However the patient is noncompliant 3 L nasal cannula during the day. Closed traumatic nondisplaced fracture of proximal end of right humerus Cognitive impairment COPD with emphysema COVID-19 (~11/2022) Fracture of distal phalanx of ring finger Gastroesophageal reflux disease Generalized anxiety disorder with panic attacks Osteoporosis Protein-calorie malnutrition, severe Pulmonary cachexia due to chronic obstructive pulmonary disease Right hand fracture Secondary nonischemic congestive cardiomyopathy With ejection fraction of 40-45%, diastolic dysfunction grade 1, mid inferior wall, mid anterior wall, mid in for septal wall mid anterior lateral wall, basal apical septum and mid inferior wall hypokinesis on echocardiogram 03/2022 Spontaneous pneumothorax (08/2012) Several pneumothoraces status post VATS procedure and apical blebectomy as well as pleurodesis. Tobacco abuse Quit in 2019 per patient report. Vitamin D deficiency Surgical History Surgical History History of bilateral tubal ligation History of section History of hip surgery (07/2019) ORIF of right femur fracture. History of tonsillectomy Status post thoracotomy Left-sided VATS procedure and apical bleb resection with pleurodesis. Family History Family History Father Acute myocardial infarction Mother Chronic obstructive pulmonary disease Social History Social History Social History: The patient had 3 sons but one from drug overdose. Patient is an alcoholic. When asked how much she drinks she states ?not enough.? Upon further questioning the patient the does admit that she drinks at least 6-12 pack per day. She is still adamant that she quit smoking. When we try to further delineate when she quit smoking she cannot provide specifics. One provider documents that she quit smoking in 2020. She has a [employer] [facility]. She lives with her son. Code status: Full code. Surrogate medical decision maker: Ex- Neo Brooke or Manish Gardner, brother. Smoking packs per day: 2 Smoking cigarette
[2023-04-24 17:36] VITALS: BP 110/74; PULSE 92; RESP 18; O2SAT 100
== END 2023-04-24 17:50 | disposition home or self-care (01) ==
PROVIDERS: Emergency Provider Emergency Medicine; PCP Family Medicine
DX: F41.0 Panic disorder [episodic paroxysmal anxiety] (principal); J45.909 Unspecified asthma, uncomplicated; J96.12 Chronic respiratory failure with hypercapnia; J96.11 Chronic respiratory failure with hypoxia; J43.9 Emphysema, unspecified; I42.0 Dilated cardiomyopathy; D51.9 Vitamin B12 deficiency anemia, unspecified; K21.9 Gastro-esophageal reflux disease without esophagitis; M81.0 Age-related osteoporosis without current pathological fracture; E55.9 Vitamin D deficiency, unspecified; F10.20 Alcohol dependence, uncomplicated; Z86.16 Personal history of COVID-19; Z87.891 Personal history of nicotine dependence
CPT/HCPCS: 99281

== ENCOUNTER 2023-05-13 19:46 | Observation (INO) | payer MEDICARE, MEDICAID, SELFPAY ==
--- NOTE | ~2023-05-13 | US_ITS ---
EXAMINATION: US abdomen limited DATE: 05/14/2023 13:44 INDICATION: Acute cholecystitis TECHNIQUE: Multiple grayscale and Doppler ultrasound images of the right upper quadrant of the abdome n were obtained prior to a planned percutaneous cholecystostomy tube placement. Following discussion with Dr. Rosas for the reasons which will be further discussed below was elected to cancel the plan hal cholecystostomy tube placement.. COMPARISON: CT studies dated 05/13/2023 and 05/07/2021, ultrasound dated 07/14/2022 and MRI/MRCP dated FINDINGS: Again seen is marked edematous wall thickening of the gallbladder. The gallbladder has decreased in c aliber from 2.1 cm in maximal diameter at the time of the prior CT to 1.3 cm in the current study. Th ere is no evident tenderness to palpation over the gallbladder nor elevated white blood cell count to suggest acute cholecystitis. A couple echogenic shadowing gallstones are seen in the dependent aspec t of the gallbladder which can be seen on prior studies. On real-time imaging there is small amount o f perihepatic ascites which delineates a fine nodular surface to the liver consistent with cirrhosis. The constellation of findings and clinical context suggests that the edematous, bladder wall thicken ing along with the perihepatic ascites is most likely related to cirrhosis. The relatively decompress ed state of the gallbladder would argue against obstructive acute cholecystitis and would complicate attempted cholecystostomy tube placement. IMPRESSION: 1. Cirrhosis. 2. Marked edematous wall thickening of the relatively decompressed gallbladder which along with small amount of perihepatic ascites is likely related to the cirrhosis. Reviewed, dictated and finalized at location A. IMPRESSION: 1. Cirrhosis. 2. Marked edematous wall thickening of the relatively decompressed gallbladder which along with small amount of perihepatic ascites is likely related to the c irrhosis.
--- NOTE | ~2023-05-13 | CT_ITS ---
Clinical Indication: Chest pain, shortness of breath, hypotension CT Scan of the Chest, Abdomen, and Pelvis with Contrast: Technique: Contiguous sections were acquired throughout the chest, abdomen, and pelvis after intraven ous administration of 65 cc of Omnipaque 350. Dose reduction technique was used on this scan by util izing automated exposure control and iterative reconstruction technique. The dose-length product (DLP ) was 294.47 mGy-cm. COMPARISON: 12/15/2022 Findings: There is no evidence of any significant mediastinal, hilar or axillary lymphadenopathy. The mediastin al soft tissues appear normal. No pulmonary embolus. No aortic aneurysm or dissection. There is no evidence of pleural or pericardial effusion. Severe emphysema is again present. Stable 3 mm left upper lobe pulmonary nodule. Stable bullous hurley e, especially at the left lung base. Suture lines in the upper lobes are suggestive of prior lung res ections. The liver, spleen, pancreas, adrenals and kidneys are within normal limits. Small gallstones are pres ent, with marked gallbladder wall thickening and/or pericholecystic fluid. No evidence of aortic aneu rysm. No lymphadenopathy. No bowel obstruction or bowel wall thickening. There is no evidence to suggest acute appendicitis. Urinary bladder is unremarkable. No pelvic mass evident. Trace pelvic ascites. Stable severe compression fracture T6. Stable possible minimal compression deformity of T9. Impression: No pulmonary embolus. Stable severe emphysema, as detailed above. Small gallstones with marked gallbladder wall thickening or pericholecystic fluid. Wall thickening co uld reflect cholecystitis versus reactive wall thickening or gallbladder wall edema in the presence o f small amount of abdominopelvic ascites. Correlate clinically. Stable compression fractures of T6 and T9. Reviewed, dictated and finalized at [facility]. Impression: No pulmonary embolus. Stable severe emphysema, as detailed above. Small gallstones with marked gallbladder wall thickening or pericholecystic flu id. Wall thickening could reflect cholecystitis versus reactive wall thickening or gallbladder wall edema in the presence of small amount of abdominopelvic as cites. Correlate clinically. Stable compression fractures of T6 and T9.
--- NOTE | ~2023-05-13 | XR_ITS ---
XR chest 2V 05/13/2023 20:18 Indication: Left-sided chest pain Procedure: 2 view chest Comparison: Comparison to multiple prior studies sequentially, with oldest reviewed study dated 09/18. Findings: Severe emphysema. Extensive bilateral parenchymal scarring. There are surgical changes in t he upper thorax bilaterally consistent with partial pneumonectomy. No focal air space disease, pulmon cierra edema, pleural effusion or suspected pneumothorax. Impression: 1: No acute cardiopulmonary disease. Reviewed, dictated and finalized at location A. Impression: 1: No acute cardiopulmonary disease.
--- NOTE | 2023-05-13 19:49 | ECG_ITS ---
Measurements Intervals [place] Rate: 131 P: 86 IN: 190 QRS: -58 QRSD: 94 T: 87 QT: 333 QTc: 492 Interpretive Statements SINUS TACHYCARDIA CONSIDER INFERIOR INFARCT, AGE INDETERMINATE CONSIDER ANTEROLATERAL INFARCT, AGE INDETERMINATE BASELINE ARTIFACT- I, II, III, AVR, AVL, AVF, V1-V4 ABNORMAL ECG COMPARED TO ECG 12/12/2022 00:06:08 NO SIGNIFICANT CHANGES Electronically Signed On 05-13-2023 21:14:17 CDT by Quinton Bell D.O.
[2023-05-13 19:56] VITALS: BP 92/27; PULSE 132; TEMP 36.9; O2SAT 100
--- NOTE | 2023-05-13 21:16 | ED.GENADULT ---
HPI - General Adult General Chief complaint: Chest Pain Stated complaint: left flank pain since yesterday Time Seen by Provider: 05/13/23 21:07 History of Present Illness HPI narrative: 57 year old female history of COPD presented with shortness of breath and chest pain. Per patient, she has been having shortness of breath and non radiating chest pain for several days. Also reporting RUQ abdominal pain. Denied fevers/chills, cough, dysuria, sick contacts Related Data Home Medications Medication Instructions Recorded Confirmed alprazolam 0.25 mg tablet 0.5 mg PO BID PRN severe anxiety 01/19/23 05/14/23 fluoxetine 20 mg capsule 20 mg PO DAILY 01/19/23 05/14/23 mirtazapine 30 mg tablet 30 mg PO HS 01/19/23 05/14/23 ipratropium bromide 0.02 % 0.5 mg inhalation Q6H 05/14/23 05/14/23 solution for inhalation levalbuterol HCl 1.25 mg/3 mL 1.25 mg inhalation Q6H 05/14/23 05/14/23 solution for nebulization multivitamin with folic acid 400 1 tablet PO DAILY 05/14/23 05/14/23 mcg tablet (Thera) thiamine HCl (vitamin B1) 100 mg 100 mg PO DAILY 05/14/23 05/14/23 tablet (Vitamin B-1) Allergies Allergy/AdvReac Type Severity Reaction Status Date / Time No Known Allergies Allergy Verified 10/18/22 12:06 Review of Systems Review of Systems: See HPI [facility] Past Medical History Medical History Abnormal EKG EKG has previously shown ST elevation which appears to be early repolarization. Alcohol abuse Anxiety Asthma B12 deficiency anemia Chronic anemia Chronic hyponatremia Chronic respiratory failure with hypoxia and hypercapnia On Trelegy unit at nighttime. However the patient is noncompliant 3 L nasal cannula during the day. Closed traumatic nondisplaced fracture of proximal end of right humerus Cognitive impairment COPD with emphysema COVID-19 (~11/2022) Fracture of distal phalanx of ring finger Gastroesophageal reflux disease Generalized anxiety disorder with panic attacks Osteoporosis Protein-calorie malnutrition, severe Pulmonary cachexia due to chronic obstructive pulmonary disease Right hand fracture Secondary nonischemic congestive cardiomyopathy With ejection fraction of 40-45%, diastolic dysfunction grade 1, mid inferior wall, mid anterior wall, mid in for septal wall mid anterior lateral wall, basal apical septum and mid inferior wall hypokinesis on echocardiogram 03/2022 Spontaneous pneumothorax (08/2012) Several pneumothoraces status post VATS procedure and apical blebectomy as well as pleurodesis. Tobacco abuse Quit in 2019 per patient report. Vitamin D deficiency Surgical History Surgical History History of bilateral tubal ligation History of section History of hip surgery (07/2019) ORIF of right femur fracture. History of tonsillectomy Status post thoracotomy Left-sided VATS procedure and apical bleb resection with pleurodesis. Family History Family History Father Acute myocardial infarction Mother Chronic obstructive pulmonary disease Social History Social History Social History: The patient had 3 sons but one from drug overdose. Patient is an alcoholic. When asked how much she drinks she states ?not enough.? Upon further questioning the patient the does admit that she drinks at least 6-12 pack per day. She is still adamant that she quit smoking. When we try to further delineate when she quit smoking she cannot provide specifics. One provider documents that she quit smoking in 2020. She has a [employer]. She lives with her son. Code status: Full code. Surrogate medical decision maker: Ex- Neo Brooke or Manish Gardner, brother. Smoking packs per day: 1 Smoking cigarettes per day: 20.0 Years smoked: 40 [place]oki
[2023-05-13] MEDS: ALBUTEROL SULFATE NEB 2.5 MG/3 ML INH INHALATION (21:42)
[2023-05-13 21:43] VITALS: PULSE 112; RESP 20
[2023-05-13] MEDS: MAGNESIUM SULF 2 GM/WATER 50ML 2 GM/50 ML BAG IVPB (21:50)
[2023-05-13] MEDS: LACTATED RINGERS 1,000 ML 999 ML IV CONT ×2 (21:51→23:52)
[2023-05-13] MEDS: predniSONE 20 MG TABLET 60 MG PO (21:51)
[2023-05-13 21:58] LABS: INR 0.9; Prothrombin Time 12.6 Seconds (11.1-14.7)
[2023-05-13 21:59] LABS: Partial Thromboplastin Time 25.7 SECONDS (22.3-36.8)
[2023-05-13 22:04] LABS: Basophils Percent Auto 0.5 % (0.2-1.2); Eosinophils Percent Auto 0.2 % (0-4.4); Hematocrit 31.8 % (37.0-47.0); Hemoglobin 10.4 g/dL (12.0-15.0); Immature Granulocyte Absolute 0.01 K/mm3 (0.00-0.031); Immature Granulocyte Percent A 0.2 % (0-0.5); Lymphocytes Absolute Auto 0.94 K/mm3 (0.9-3.2); Lymphocytes Percent Auto 14.8 % (18.3-44.2); Mean Corpuscular HGB Conc 32.7 g/dl (32-36); Mean Corpuscular Hemoglobin 33.2 pg (26-34); Mean Corpuscular Volume 101.6 fl (80-100); Mean Platelet Volume 8.6 fl (7.4-10.4); Monocytes Absolute Auto 0.5 K/mm3 (0.1-0.6); Monocytes Percent Auto 7.1 % (2.6-8.5); Neutrophils Absolute Auto 4.9 K/mm3 (1.3-6.7); Neutrophils Percent Auto 77.2 % (45.5-73.1); Platelet Count Result 239 k/mm3 (150-375); Red Blood Count 3.13 M/mm3 (4.2-5.4); Red Cell Distribution Width 14.7 % (11.5-14.5); White Blood Count 6.4 K/mm3 (4.5-10.0)
[2023-05-13 22:11] VITALS: PULSE 114
[2023-05-13 22:13] LABS: Troponin I < 0.012 ng/mL (0.000-0.034)
[2023-05-13 22:17] LABS: Alanine Aminotransferase 187 U/L (6-35); Albumin Level 2.4 g/dL (3.5-5.1); Alkaline Phosphatase 314 U/L (38-126); Anion Gap 4 mmol/L (8-16); Aspartate Amino Transferase 379 U/L (14-36); Bilirubin,Total 1.3 mg/dL (0.2-1.3); Blood Urea Nitrogen 11 mg/dL (7-17); Calcium 6.5 mg/dL (8.4-10.2); Carbon Dioxide 32 mmol/L (22-30); Chloride 100 mmol/L (98-107); Estimated CRCL calculation 58 ml/min; Estimated Glomerular Filt Rate > 60; Glucose 122 mg/dL (65-110); Lipase 75 U/L (23-300); Potassium 2.7 mmol/L (3.4-5.0); Sodium 136 mmol/L (137-145)
--- NOTE | 2023-05-13 22:36 | PC.NURSE ---
Pt taken to CT with portable monitor @2230.
[2023-05-13 22:37] VITALS: BP 89/55; PULSE 115; RESP 17; O2SAT 98
[2023-05-13] MEDS: POTASSIUM CHLORIDE 20 MEQ PACKET (FOR LIQUID) 40 MEQ PO (22:54)
[2023-05-13 23:04] VITALS: BP 92/66; PULSE 112; RESP 16; O2SAT 97
[2023-05-13] MEDS: KCL 20 MEQ/SW 100 ML 100 ML 50 MEQ IVPB (23:28)
[2023-05-13 23:48] VITALS: BP 93/65; PULSE 110; PULSE 112; RESP 21; TEMP 36.9; O2SAT 97
[2023-05-13] MEDS: PIPERACILLN/TAZ 3.375GM/NS50ML 3.375 GM/50 ML BAG IVPB (23:52)
[2023-05-14] VITALS (18 sets, daily range): BP systolic 81–106; BP diastolic 52–64; PULSE 67–98; RESP 16–20; TEMP 36.1–36.6; O2SAT 95–100; BMI 15.7; BMI 13.8; BMI 13.7
[2023-05-14] MEDS: HYDROmorphone HCL INJ (*CRX) 1 MG/ML SYR IV PUSH (00:30)
--- NOTE | 2023-05-14 02:50 | ADMGEN ---
This patient, Esther Brink, was admitted to IMU Room 206-01. Patient/family oriented to hospital policies and general routines including ID bracelet, bed and alarms, visiting hours, pain management, procedures, bathroom and other care routines, personal items, smoking policy, room service/diet, and visiting hours. Information on how to activate the Rapid Response Team has been discussed. Patient/Family are encouraged to report perceived risks to care and to ask questions if they do not understand what they are told or what they should do.
--- NOTE | 2023-05-14 03:12 | PC.NURSE ---
Upon er medical technician starting to take patient up to IMU the patient was arousable to painful stimuli only. EDP Dr. Dickey then pushed 0.1mg Narcan diluted with normal saline. The patient then became more arousable to the point where she was alert, but a little groggy. As the patient became more aware of her surroundings she became A&OX4 and her vitals were stable within normal limits. Per EDP Dr. Dickey the patient was ok to still go up to IMU. er medical technician then took patient up to IMU as ED nurse was helping ED staff with another patient who was intubated and was attempting to pull out ET tube.
[2023-05-14 03:26] LABS: Lactic Acid Reflex 2.6 mmol/L (0.7-2.0)
[2023-05-14 03:38] LABS: Troponin I < 0.012 ng/mL (0.000-0.034)
[2023-05-14 06:14] LABS: Reflex Lactic Acid Yes or No Add Lactic
[2023-05-14 06:50] LABS: Lactic Acid 1.9 mmol/L (0.7-2.0)
[2023-05-14] MEDS: LACTATED RINGERS 1,000 ML 90 ML IV CONT (09:04)
--- NOTE | 2023-05-14 09:41 | PM.IMHP ---
H&P: HPI History of Present Illness Date/Time: 05/14/23 09:41 Chief Complaint: chest pain and sob Narrative: 57-year-old female with history of alcoholic liver disease, B12 deficiency, malnutrition, tobacco dependence among other comorbidities is presenting with chest pain, shortness a breath, nausea and vomiting over the last week. She denies fevers or chills. CT scan showed thickened gallbladder wall and gallstones concerning for acute cholecystitis. General surgery was consulted and recommended cholecystostomy tube. The radiologist stated that the gallbladder appeared quite decompressed already and the thickening noted on the CT scan was likely reactive from some ascitic fluid. Therefore, the tube was not placed. IV antibiotics initiated and supportive care recommended. Review of Systems Review of Systems: 12 point review of systems was assessed and was negative except as noted in the HPI PMFSH Past Medical History Medical History Abnormal EKG EKG has previously shown ST elevation which appears to be early repolarization. Alcohol abuse Anxiety Asthma B12 deficiency anemia Chronic anemia Chronic hyponatremia Chronic respiratory failure with hypoxia and hypercapnia On Trelegy unit at nighttime. However the patient is noncompliant 3 L nasal cannula during the day. Closed traumatic nondisplaced fracture of proximal end of right humerus Cognitive impairment COPD with emphysema COVID-19 (~11/2022) Fracture of distal phalanx of ring finger Gastroesophageal reflux disease Generalized anxiety disorder with panic attacks Osteoporosis Protein-calorie malnutrition, severe Pulmonary cachexia due to chronic obstructive pulmonary disease Right hand fracture Secondary nonischemic congestive cardiomyopathy With ejection fraction of 40-45%, diastolic dysfunction grade 1, mid inferior wall, mid anterior wall, mid in for septal wall mid anterior lateral wall, basal apical septum and mid inferior wall hypokinesis on echocardiogram 03/2022 Spontaneous pneumothorax (08/2012) Several pneumothoraces status post VATS procedure and apical blebectomy as well as pleurodesis. Tobacco abuse Quit in 2020 per patient report. Vitamin D deficiency Surgical History Surgical History History of bilateral tubal ligation History of section History of hip surgery (07/2019) ORIF of right femur fracture. History of tonsillectomy Status post thoracotomy Left-sided VATS procedure and apical bleb resection with pleurodesis. Family History Family History Father Acute myocardial infarction Mother Chronic obstructive pulmonary disease Social History Social History Social History: The patient had 3 sons but one from drug overdose. Patient is an alcoholic. When asked how much she drinks she states ?not enough.? Upon further questioning the patient the does admit that she drinks at least 6-12 pack per day. She is still adamant that she quit smoking. When we try to further delineate when she quit smoking she cannot provide specifics. One provider documents that she quit smoking in 2020. She has a [facility]. She lives with her son. Code status: Full code. Surrogate medical decision maker: Ex- Neo Brooke or Manish Gardner, brother. Smoking packs per day: 1 Smoking cigarettes per day: 20.0 Years smoked: 40 Smoking pack-years: 40.00 Smoking status: Former smoker Tobacco type: cigarettes Second hand tobacco smoke exposure: Yes Alcohol intake: current Drinks per week: 6 Alcohol use details: Heavier drinker in the past. Substance use: never Substance use type: does not use Lack of Transportation: No Lack of Food: Never True Current Housing: [facility]
[2023-05-14] MEDS: MULTIVITAMINS THERAPEUTIC TAB (*BKC) 1 TABLET PO (11:47)
[2023-05-14] MEDS: FLUoxetine HCL 20 MG CAPSULE PO (11:47)
[2023-05-14] MEDS: THIAMINE HCL 100 MG TABLET PO (11:48)
[2023-05-14] MEDS: FOLIC ACID 1 MG TABLET PO (11:48)
--- NOTE | 2023-05-14 13:19 | PCOTNOTE ---
Attempted OT evaluation but patient off unit for testing. Will follow.
[2023-05-14] MEDS: LEVALBUTEROL NEB 1.25 MG/3 ML INHALATION ×2 (14:54→19:50)
[2023-05-14] MEDS: IPRATROPIUM BR 0.02% INH SOLN 0.5 MG/2.5 ML VIAL INHALATION ×2 (14:54→19:50)
--- NOTE | 2023-05-14 15:53 | PCPTNOTE ---
On 05/14/23, the student, JOSE Milan, provided care and completed [facility] documentation on this patient. I have reviewed the student's documentation and agree with the findings.
--- NOTE | 2023-05-14 16:37 | WPDCN ---
Assessment and Plan Assessment and plan (1) Acute calculous cholecystitis: Code(s): K80.00 - Calculus of gallbladder with acute cholecystitis without obstruction Status: Acute Assessment and Plan: Patient gallbladder imaging shows the gallbladder wall to be thickened with possible pericholecystic fluid. White blood count is normal and liver enzymes are all normal. I initially asked the radiologist to place a cholecystostomy tube drain the gallbladder. However after review of a repeat CT scan the radiologist contacted me and stated that the gallbladder was more decompressed and that he felt there was a lot of ascites fluid and the thickening of the gallbladder was likely due to reaction from the ascites fluid rather than acute cholecystitis. For this reason the cholecystostomy tube placement was canceled. The ascites was most likely on the basis of cirrhosis seen by imaging. At this point I think conservative management without doing anything with the gallbladder is indicated. Continue IV antibiotics and supportive management. White blood cell count is normal and LFTs are normal. Continue supportive management and sternal surgical follow-up. For now no obvious indication to proceed with cholecystectomy. HPI Data of Consult Date/Time: 05/14/23 16:37 Requesting Physician: Dexter Laboy MD Primary Care Provider: Kristian Escobar MD Consult Narrative Reason for consult: Abnormal gallbladder imaging Narrative: Esther Brink is a 57 year old female seen in the emergency room for complaints of shortness of breath chest pain. No fevers or chills. White blood cell count is normal and LFTs are normal. CT scan abdomen pelvis was performed showing thickened gallbladder wall and gallstones suggestive of possible acute cholecystitis. In trying to interview the patient is more and she was very sleepy and was not able to tell me if she was having any pain recently. Review of Systems Review of Systems: Risks, benefits, indications, and expected outcomes were discussed with the patient and/or family members. Specific risks to include bleeding and possible need for blood transfusion, infection, bile leak, injury to other organs, common bile duct injury, and conversion to open cholecystectomy has been discussed. I have answered all their questions and they agreed to proceed with surgery as outlined above. [facility] Past Medical History Medical History Abnormal EKG EKG has previously shown ST elevation which appears to be early repolarization. Alcohol abuse Anxiety Asthma B12 deficiency anemia Chronic anemia Chronic hyponatremia Chronic respiratory failure with hypoxia and hypercapnia On Trelegy unit at nighttime. However the patient is noncompliant 3 L nasal cannula during the day. Closed traumatic nondisplaced fracture of proximal end of right humerus Cognitive impairment COPD with emphysema COVID-19 (~11/2022) Fracture of distal phalanx of ring finger Gastroesophageal reflux disease Generalized anxiety disorder with panic attacks Osteoporosis Protein-calorie malnutrition, severe Pulmonary cachexia due to chronic obstructive pulmonary disease Right hand fracture Secondary nonischemic congestive cardiomyopathy With ejection fraction of 40-45%, diastolic dysfunction grade 1, mid inferior wall, mid anterior wall, mid in for septal wall mid anterior lateral wall, basal apical septum and mid inferior wall hypokinesis on echocardiogram 03/2022 Spontaneous pneumothorax (08/2012) Several pneumothoraces status post VATS procedure and apical blebectomy as well as pleurodesis. Tobacco abuse Quit in 2019 per patient report. Vitamin D deficiency Surgical History Surgical History History of bilateral tubal ligation History of section History of hip surgery (07/2019) ORIF of right femur fractur
[2023-05-14] MEDS: BUDESONIDE RESPULE NEB 0.5 MG/2 ML AMP INHALATION (19:50)
[2023-05-14] MEDS: hydrOXYzine pamoate 25 MG CAPSULE PO (20:48)
[2023-05-14] MEDS: MIRTAZAPINE 30 MG TABLET PO (20:48)
[2023-05-15] VITALS (13 sets, daily range): BP systolic 80–97; BP diastolic 52–57; PULSE 71–102; RESP 16–18; TEMP 36–36.4; O2SAT 93–100
--- NOTE | 2023-05-15 02:17 | PCRCNOTE ---
Pt refused neb Tx at this time RN aware
[2023-05-15 05:37] LABS: Hematocrit 25.6 % (37.0-47.0); Immature Granulocyte Absolute 0.01 K/mm3 (0.00-0.031); Immature Granulocyte Percent A 0.2 % (0-0.5); Lymphocytes Absolute Auto 0.67 K/mm3 (0.9-3.2); Lymphocytes Percent Auto 12.3 % (18.3-44.2); Mean Corpuscular HGB Conc 31.3 g/dl (32-36); Mean Corpuscular Hemoglobin 33.1 pg (26-34); Mean Corpuscular Volume 105.8 fl (80-100); Mean Platelet Volume 9.3 fl (7.4-10.4); Monocytes Absolute Auto 0.4 K/mm3 (0.1-0.6); Monocytes Percent Auto 6.6 % (2.6-8.5); Neutrophils Absolute Auto 4.4 K/mm3 (1.3-6.7); Neutrophils Percent Auto 80.9 % (45.5-73.1); Platelet Count Result 175 k/mm3 (150-375); Red Blood Count 2.42 M/mm3 (4.2-5.4); Red Cell Distribution Width 14.2 % (11.5-14.5); White Blood Count 5.4 K/mm3 (4.5-10.0)
[2023-05-15 05:56] LABS: Alanine Aminotransferase 129 U/L (6-35); Albumin Level 2.1 g/dL (3.5-5.1); Alkaline Phosphatase 216 U/L (38-126); Anion Gap 2 mmol/L (8-16); Aspartate Amino Transferase 146 U/L (14-36); Bilirubin,Total 0.9 mg/dL (0.2-1.3); Blood Urea Nitrogen 3 mg/dL (7-17); Calcium 7.8 mg/dL (8.4-10.2); Carbon Dioxide 37 mmol/L (22-30); Chloride 97 mmol/L (98-107); Estimated CRCL calculation 66 ml/min; Estimated Glomerular Filt Rate > 60; Glucose 87 mg/dL (65-110); Potassium 3.3 mmol/L (3.4-5.0); Sodium 136 mmol/L (137-145)
[2023-05-15 06:56] LABS: Anisocytosis 2+ (NORMAL); Macrocytosis 1+ (NORMAL); Platelet Estimate Adequate (Adequate)
[2023-05-15 06:57] LABS: Hypochromasia 1+ (NORMAL); Schistocytes None Seen (NORMAL)
[2023-05-15] MEDS: IPRATROPIUM BR 0.02% INH SOLN 0.5 MG/2.5 ML VIAL INHALATION ×2 (07:20→13:00)
[2023-05-15] MEDS: BUDESONIDE RESPULE NEB 0.5 MG/2 ML AMP INHALATION (07:20)
[2023-05-15] MEDS: LEVALBUTEROL NEB 1.25 MG/3 ML INHALATION ×2 (07:20→13:00)
[2023-05-15] MEDS: FOLIC ACID 1 MG TABLET PO (08:59)
[2023-05-15] MEDS: THIAMINE HCL 100 MG TABLET PO (08:59)
[2023-05-15] MEDS: MULTIVITAMINS THERAPEUTIC TAB (*BKC) 1 TABLET PO (08:59)
[2023-05-15] MEDS: FLUoxetine HCL 20 MG CAPSULE PO (08:59)
--- NOTE | 2023-05-15 09:42 | VASCRN ---
Order received for: picc line insertion After review of the chart and the patient assessment, patient is not a candidate for the following reason(s): I was able to insert an ultrasound guided peripheral IV access, no picc needed at this time. Order received from Dr. Brantley to sd picc order. Provider notified: Dr. Brantley
--- NOTE | 2023-05-15 12:45 | PM.PNGS ---
Progress Note: A&P Assessment and Plan (1) Acute calculous cholecystitis: Code(s): K80.00 - Calculus of gallbladder with acute cholecystitis without obstruction Status: Acute Assessment and Plan: Appearance of the gallbladder on CT scan is most likely due to reactive changes from her as the abdominal ascites and alcoholic liver disease. Her white blood cell count has been normal and she her abdomen is benign today. I think she would be a high risk for considering an elective cholecystectomy based upon her alcoholic liver disease and ascites. She is tolerating regular diet and I do not see a reason for any surgical management at this time of her gallbladder. Will sign off. No need to have the patient follow-up in the General surgery Clinic. Subjective Subjective Date/Time Seen: 05/15/23 12:45 Interval history: Patient is doing better today. Denies any abdominal pain. No nausea or vomiting. She is tolerating a low-fat diet. Repeat CT yesterday showed ascites fluid from her liver disease and likely reactive changes the gallbladder rather than acute cholecystitis. White blood cell count has always been normal. Exam GI: Other: Abdomen is soft and nondistended. No tenderness to palpation of the right upper quadrant. Abdomen is benign. Objective Data Vital Signs Vital Signs: Vital Signs - 24 hr 05/14/23 14:21 05/14/23 14:50 05/14/23 14:56 Temperature Pulse Rate 67 Respiratory Rate 20 Blood Pressure Pulse Oximetry 96 Oxygen Delivery Nasal Cannula Nasal Cannula Oxygen Flow Rate 4 4 05/14/23 15:04 05/14/23 14:00 05/14/23 16:00 Temperature 36.6 C Pulse Rate 69 89 94 Respiratory Rate 20 16 Blood Pressure 94/52 L Pulse Oximetry 100 Oxygen Delivery Oxygen Flow Rate 05/14/23 16:00 05/14/23 16:00 05/14/23 18:00 Temperature Pulse Rate 94 87 Respiratory Rate Blood Pressure Pulse Oximetry 95 Oxygen Delivery Nasal Cannula Oxygen Flow Rate 4 05/14/23 19:54 05/14/23 19:54 05/14/23 20:00 Temperature Pulse Rate 87 87 87 Respiratory Rate 20 18 18 Blood Pressure Pulse Oximetry 98 98 Oxygen Delivery Nasal Cannula Nasal Cannula Oxygen Flow Rate 3 3 05/14/23 20:00 05/14/23 20:00 05/14/23 22:00 Temperature 36.4 C L Pulse Rate 79 84 87 Respiratory Rate 18 Blood Pressure 100/63 Pulse Oximetry 98 Oxygen Delivery Oxygen Flow Rate 05/15/23 00:00 05/15/23 00:00 05/15/23 00:00 Temperature 36.4 C Pulse Rate 85 85 89 Respiratory Rate 16 16 Blood Pressure 87/54 L Pulse Oximetry 100 100 Oxygen Delivery Nasal Cannula Oxygen Flow Rate 3 05/14/23 20:10 05/15/23 02:00 05/15/23 04:00 Temperature Pulse Rate 70 73 73 Respiratory Rate 20 16 Blood Pressure Pulse Oximetry 100 Oxygen Delivery Nasal Cannula Oxygen Flow Rate 3 05/15/23 04:00 05/15/23 04:00 05/15/23 06:00 Temperature 36.2 C L Pulse Rate 79 71 81 Respiratory Rate 16 Blood Pressure 86/56 L Pulse Oximetry 99 Oxygen Delivery Oxygen Flow Rate 05/15/23 07:20 05/15/23 08:27 05/15/23 08:00 Temperature 36.1 C L Pulse Rate 82 85 96 Respiratory Rate 18 17 Blood Pressure 80/53 L Pulse Oximetry 93 100 Oxygen Delivery Room Air Oxygen Flow Rate 05/15/23 08:00 05/15/23 10:00 05/15/23 12:30 Temperature 36.0 C L Pulse Rate 86 87 Respiratory Rate 17 Blood Pressure 97/57 L Pulse Oximetry 100 100 Oxygen Delivery Nasal Cannula Oxygen Flow Rate 3 Intake/Output Intake/Output: Intake & Output 05/12/23 05/13/23 05/14/23 05/15/23 23:59 23:59 23:59 23:59 Intake Total 1050 1550 510 Output Total 0 350 Balance 1050 1550 160 Meds/Results Medications: Active Medications Generic Name Dose Route Start Last Admin Trade Name Freq PRN Reason Stop Dose Admin Albuterol 2.5 mg 05/14/23 09:41 Albuterol Sulfate Neb 2.5 Mg/3 Ml Inh INHALATION QID PRN shortness of br
--- NOTE | 2023-05-15 13:00 | PM.DS ---
DS: Admitting Diagnosis Discharge Date 05/15/23 Admitting Diagnosis Chest pain, shortness of breath DS: Discharge Diagnosis Discharge Diagnosis (1) Acute calculous cholecystitis: Code(s): K80.00 - Calculus of gallbladder with acute cholecystitis without obstruction Status: Acute Assessment and Plan: Appreciate general surgery consultation, conservative management with IV antibiotics initiated, hold off on cholecystectomy versus cholecystostomy tube for now LFTs within normal limits Zosyn initiated 05/13 (2) Chronic alcoholic hepatitis: Code(s): K70.10 - Alcoholic hepatitis without ascites Status: Acute Assessment and Plan: LFTs within normal limits, could be secondary to burned-out liver or perhaps stable disease Monitor (3) Chronic respiratory failure with hypoxia and hypercapnia: Code(s): J96.11 - Chronic respiratory failure with hypoxia; J96.12 - Chronic respiratory failure with hypercapnia Status: Acute Assessment and Plan: Stable on home O2 (4) COPD (chronic obstructive pulmonary disease): Code(s): J44.9 - Chronic obstructive pulmonary disease, unspecified Status: Acute Assessment and Plan: Nebulizers as needed, does not appear to be in acute exacerbation, monitor (5) Nonischemic cardiomyopathy: Code(s): I42.8 - Other cardiomyopathies Status: Chronic Assessment and Plan: Euvolemic (6) Gastroesophageal reflux disease: Code(s): K21.9 - Gastro-esophageal reflux disease without esophagitis Status: Acute Plan DVT prophylaxis with SCDs GI prophylaxis not indicated Code status full code DS: Summary Hospital Course Hospital Course: 57-year-old female with history of alcoholic liver disease, B12 deficiency, malnutrition, tobacco dependence among other comorbidities is presenting with chest pain, shortness a breath, nausea and vomiting over the last week.? She denies fevers or chills.? CT scan showed thickened gallbladder wall and gallstones concerning for acute cholecystitis.? General surgery was consulted and recommended cholecystostomy tube.? The radiologist stated that the gallbladder appeared quite decompressed already and the thickening noted on the CT scan was likely reactive from some ascitic fluid.? Therefore, the tube was not placed.? IV antibiotics initiated and supportive care recommended. General surgery was consulted and recommended supportive management and discharge. Patient was discharged in stable condition antibiotics with close outpatient follow-up by surgery and primary care. Please see above and med rec for details. Time Spent with Patient Time attestation: Total time spent providing and/or coordinating discharge services: Exam Narrative: General: No acute distress, alert and oriented per baseline HEENT: Atraumatic, normocephalic, mucous membranes moist CV: Regular rate and rhythm, S1, S2 Lungs: Clear to auscultation bilaterally, no rales or crackles noted, no wheezes, good air entry Abdomen: Soft, nontender, nondistended Extremities: Normal to inspection Skin: No rashes noted, no lesions or wounds seen Psych: Euthymic, normal affect DS: Data Data Completed and Pending Labs on day of discharge: Labs from last 24 hours 05/15/23 04:59 WBC 5.4 RBC 2.42 L Hgb 8.0 L Hct 25.6 L MCV 105.8 H MCH 33.1 MCHC 31.3 L RDW 14.2 Plt Count 175 MPV 9.3 Immature Gran % (Auto) 0.2 Neut % (Auto) 80.9 H Lymph % (Auto) 12.3 L Carlton % (Auto) 6.6 Eos % (Auto) 0.0 Baso % (Auto) 0.0 L Lymph # (Auto) 0.67 L Carlton # (Auto) 0.4 Eos # (Auto) 0.0 Baso # (Auto) 0.0 Abs Immat Gran (auto) 0.01 Absolute Neuts (auto) 4.4 Absolute Nucleated RBC 0.0 Nucleated RBC % 0.0 Platelet Estimate Adequate Hypochromasia 1+ Anisocytosis 2+ Macrocytosis 1+ Schistocytes None seen Sodium 136 L Potassium 3.3 L Chloride 97 L Carbon Dioxide 37 H Ani
[2023-05-15] MEDS: ALPRAZolam (*CRX) 0.5 MG TABLET PO (14:57)
== END 2023-05-15 18:42 | disposition home or self-care (01) ==
LOC: ANHED 23:54 → ANHIMU 05-15 10:54
PROVIDERS: General Practice; Admitting Provider Student in an Organized Health Care Education/Training Program; Emergency Provider Emergency Medicine; PCP Family Medicine; Visit Provider Student in an Organized Health Care Education/Training Program
DX: K80.00 Calculus of gallbladder with acute cholecystitis without obstruction (principal); K70.10 Alcoholic hepatitis without ascites; J96.11 Chronic respiratory failure with hypoxia; J96.12 Chronic respiratory failure with hypercapnia; J43.9 Emphysema, unspecified; I42.8 Other cardiomyopathies; K21.9 Gastro-esophageal reflux disease without esophagitis; K70.31 Alcoholic cirrhosis of liver with ascites; R64 Cachexia; F41.9 Anxiety disorder, unspecified; R94.31 Abnormal electrocardiogram [ECG] [EKG]; D64.9 Anemia, unspecified; F41.1 Generalized anxiety disorder; M48.54XA Collapsed vertebra, not elsewhere classified, thoracic region, initial encounter for fracture; E43 Unspecified severe protein-calorie malnutrition; E55.9 Vitamin D deficiency, unspecified; Z68.1 Body mass index [BMI] 19.9 or less, adult; F41.0 Panic disorder [episodic paroxysmal anxiety]; G31.84 Mild cognitive impairment of uncertain or unknown etiology; D51.9 Vitamin B12 deficiency anemia, unspecified; M81.0 Age-related osteoporosis without current pathological fracture; E87.1 Hypo-osmolality and hyponatremia; F10.20 Alcohol dependence, uncomplicated; Z86.16 Personal history of COVID-19; Z79.51 Long term (current) use of inhaled steroids; Z79.899 Other long term (current) drug therapy
CPT/HCPCS: 36415; 71046; 71275; 74177; 76705; 80053; 83605; 83690; 84484; 85025; 85610; 85730; 87040; 93005; 94640; 96361; 96365; 96366; 96367; 96375; 97161; 97165; 99285; A9270; G0378; J1170; J2310; J2543; J3475; J3480; J7120; J7512; Q9967

== ENCOUNTER 2023-07-16 01:22 | Inpatient (IN) | payer MEDICARE, MEDICAID, SELFPAY ==
[2023-07-16] VITALS (25 sets, daily range): BP systolic 84–127; BP diastolic 49–87; PULSE 65–124; RESP 13–28; TEMP 36.5–36.8; O2SAT 26–100; BMI 15.1
--- NOTE | ~2023-07-16 | XR_ITS ---
EXAMINATION: XR abdomen obstructive series DATE: 07/20/2023 10:42 INDICATION: Abdominal pain and distention TECHNIQUE: Frontal supine and upright views of the abdomen were obtained. COMPARISON: CT abdomen and pelvis dated 07/08/2023 FINDINGS: No free intraperitoneal gas. No dilated loops of gas-filled bowel to suggest obstruction. Emphysema w ith scattered increased lucency and architectural distortion in the bilateral mid to lower lungs. Sut ure line in the left midlung zone. Opacities in the right lower lung zone with blunting at the costop hrenic angle consistent with small pleural effusion and associated atelectasis/scarring versus pneumo lisa. Heart size is normal. Plate-screw fixation at the right femoral head and neck. IMPRESSION: 1. No free intraperitoneal gas or dilated gas-filled loops of bowel to suggest obstruction. 2. Emphysema with small right pleural effusion and right basilar atelectasis/scarring versus pneumoni a. Reviewed, dictated and finalized at location A. IMPRESSION: 1. No free intraperitoneal gas or dilated gas-filled loops of bowel to suggest obstruction. 2. Emphysema with small right pleural effusion and right basilar atelectasis/sc arring versus pneumonia.
--- NOTE | ~2023-07-16 | US_ITS ---
EXAMINATION: US right upper quadrant DATE: 07/16/2023 20:34 INDICATION: Elevated liver function tests TECHNIQUE: Multiple grayscale and Doppler ultrasound images of the abdomen were obtained. COMPARISON: CT from today FINDINGS: The head and body of the pancreas are normal. The pancreatic tail is obscured by bowel gas. The liver is normal with normal echogenicity and echotexture. No surface nodularity. Normal hepatope sue flow in the main portal vein. Stones are present in the nondistended gallbladder. No gallbladder wall thickening is present. The normal common bile duct measures 5 mm. Ascites is noted. There was no sonographic Rincon sign. There is a right pleural effusion. IMPRESSION: 1. Cholelithiasis without additional findings of cholecystitis. 2. Ascites. 3. Right pleural effusion. Reviewed, dictated and finalized at location F.
--- NOTE | ~2023-07-16 | US_ITS ---
EXAMINATION: US paracentesis abd w/image DATE: 07/17/2023 16:45 INDICATION: Ascites. TECHNIQUE: The procedure and its risks and benefits were discussed with the patient. Potential risks discussed included bleeding and infection. The skin was prepped and draped in sterile fashion. 1% lid ocaine was used for local anesthesia. Under ultrasound guidance, a 5 Fr catheter with trochar was adv anced into the ascites in the right lower quadrant. Fluid was aspirated into vacuum bottles. The cath eter was removed, and a dressing was applied. There were no immediate complications. FINDINGS: Ultrasound images demonstrate ascites and the catheter within the fluid. IMPRESSION: 1. Successful ultrasound-guided paracentesis yielding 900 mL of clear light yellow fluid. Reviewed, dictated and finalized at location A. IMPRESSION: 1. Successful ultrasound-guided paracentesis yielding 900 mL of clear light ye llow fluid.
--- NOTE | ~2023-07-16 | US_ITS ---
EXAMINATION: US paracentesis abd w/image DATE: 07/23/2023 16:20 INDICATION: Ascites. TECHNIQUE: The procedure and its risks and benefits were discussed with the patient. Potential risks discussed included bleeding and infection. The skin was prepped and draped in sterile fashion. 1% lid ocaine was used for local anesthesia. Under ultrasound guidance, a 5 Fr catheter with trochar was adv anced into the ascites in the right lower quadrant. Fluid was aspirated into vacuum bottles. The cath eter was removed, and a dressing was applied. There were no immediate complications. FINDINGS: Ultrasound images demonstrate ascites and the catheter within the fluid. IMPRESSION: 1. Successful ultrasound-guided paracentesis yielding 2450 mL of light yellow fluid. Reviewed, dictated and finalized at location A.
--- NOTE | ~2023-07-16 | XR_ITS ---
Portable chest x-ray Comparison: 05/13/2023 Clinical History: Chest pain, shortness of breath Findings: Small left pleural effusion is present. There is mild increased haziness in the left upper lobe and right mid lung as compared to prior exam. Correlate for mild pulmonary edema or infection. Underlying COPD present with suture lines at the bilateral upper lobe regions. Cardiomediastinal mouna houette is stable. Chronic left rib fracture deformities are noted. Impression: Small left pleural effusion. Hazy left upper lobe and right midlung airspace disease could reflect pulmonary edema versus infectio n. COPD with bilateral upper lobe postoperative changes. Reviewed, dictated and finalized at location . Impression: Small left pleural effusion. Hazy left upper lobe and right midlung airspace disease could reflect pulmonary edema versus infection. COPD with bilateral upper lobe postoperative changes.
--- NOTE | ~2023-07-16 | CT_ITS ---
EXAMINATION: CT brain wo con DATE: 07/16/2023 15:09 INDICATION: Altered level of consciousness TECHNIQUE: Computed tomography (CT) of the head was performed without intravenous contrast. The mA wa s adjusted according to patient size. Iterative reconstruction technique was employed. Exam dose: 12 10.67 mGy-cm total exam DLP. COMPARISON: 07/14/2022 CT brain FINDINGS: The examination is limited due to motion artifact despite 2 sets of images being obtained. No intracranial mass lesion or hemorrhage, midline shift or mass effect or subdural or epidural hemat fabiola is detected. Bilateral carotid siphon internal carotid artery calcifications. The mastoid air cells and included paranasal sinuses are normally developed and aerated. Chronic lucent defect of the left anterior parietal bone, stable since 03/07/2020, likely benign. No fracture or bone destruction of the cranial vault is noted otherwise. IMPRESSION: Limited examination due to motion; no acute intracranial finding is noted Reviewed, dictated and finalized at Location A. Reviewed, dictated and finalized at location A. IMPRESSION: Limited examination due to motion; no acute intracranial finding i s noted
--- NOTE | ~2023-07-16 | CT_ITS ---
CT of the Abdomen and Pelvis: Indication: Abdominal pain, elevated liver enzymes Technique: 2.5 mm axial scans were obtained through the abdomen and pelvis following intravenous adm inistration of 75 cc of Omnipaque 350. Dose reduction technique was used on this scan by utilizing au tomated exposure control and iterative reconstruction technique. The dose-length product (DLP) was 19 4.63 mGy-cm. COMPARISON: 05/13/2023 Findings: Scans through the lung bases demonstrate severe emphysema with left basilar bullous change . There are small bilateral pleural effusions with mild left basilar atelectatic change. The liver, spleen, pancreas, adrenals and kidneys are within normal limits. Small gallstones are pres ent. No evidence of aortic aneurysm. No lymphadenopathy. No bowel obstruction or bowel wall thickening. There is no evidence to suggest acute appendicitis. Images through the pelvis were performed. Urinary bladder unremarkable. No adnexal mass seen. Small t o moderate abdominopelvic ascites is present. Impression: Small bilateral pleural effusions with mild left basilar atelectasis. Severe emphysema at the visualized lung bases. Small to moderate abdominopelvic ascites, uncertain etiology. Cholelithiasis. Reviewed, dictated and finalized at [facility]. Impression: Small bilateral pleural effusions with mild left basilar atelectasis. Severe emphysema at the visualized lung bases. Small to moderate abdominopelvic ascites, uncertain etiology. Cholelithiasis.
--- NOTE | 2023-07-16 01:27 | ECG_ITS ---
Measurements Intervals Dante Rate: 106 P: 99 OH: 157 QRS: 79 QRSD: 78 T: 88 QT: 324 QTc: 432 Interpretive Statements SINUS TACHYCARDIA NONSPECIFIC T-WAVE ABNORMALITY- ANTERIOR LEADS BASELINE ARTIFACT- I, III, AVR, AVL, AVF, V1-V6 ABNORMAL ECG COMPARED TO ECG 05/13/2023 19:54:19 HEART RATE HAS DECREASED T-WAVE ABNORMALITY NOW PRESENT Electronically Signed On 07-16-2023 6:24:29 CDT by Quinton Bell D.O.
--- NOTE | 2023-07-16 01:59 | ED.GENADULT ---
HPI - General Adult General Chief complaint: Anxiety Stated complaint: cp Time Seen by Provider: 07/16/23 01:34 History of Present Illness HPI narrative: Patient is a 57-year-old female who presents the emergency department with chief complaint of anxiety. Patient reports she had some anxiety attacks at home this evening patient reports she has history of COPD and wears 3 to 4 L of nasal cannula oxygen all the time. Patient does states she feels a little bit more tired than normal and reports that she had a similar episode about a week ago patient states that she feels extremely tired Related Data Home Medications Medication Instructions Recorded Confirmed alprazolam 0.25 mg tablet 0.5 mg PO BID PRN severe anxiety 01/19/23 05/14/23 fluoxetine 20 mg capsule 20 mg PO DAILY 01/19/23 05/14/23 mirtazapine 30 mg tablet 30 mg PO HS 01/19/23 05/14/23 ipratropium bromide 0.02 % 0.5 mg inhalation Q6H 05/14/23 05/14/23 solution for inhalation levalbuterol HCl 1.25 mg/3 mL 1.25 mg inhalation Q6H 05/14/23 05/14/23 solution for nebulization multivitamin with folic acid 400 1 tablet PO DAILY 05/14/23 05/14/23 mcg tablet (Thera) thiamine HCl (vitamin B1) 100 mg 100 mg PO DAILY 05/14/23 05/14/23 tablet (Vitamin B-1) Allergies Allergy/AdvReac Type Severity Reaction Status Date / Time No Known Allergies Allergy Verified 07/16/23 01:28 Review of Systems Review of Systems: A 10 system review of systems was completed on the patient and is negative except for what is stated in the HPI. Nursing and ancillary documentation was reviewed. [facility] Past Medical History Medical History Abnormal EKG EKG has previously shown ST elevation which appears to be early repolarization. Alcohol abuse Anxiety Asthma B12 deficiency anemia Chronic anemia Chronic hyponatremia Chronic respiratory failure with hypoxia and hypercapnia On Trelegy unit at nighttime. However the patient is noncompliant 3 L nasal cannula during the day. Closed traumatic nondisplaced fracture of proximal end of right humerus Cognitive impairment COPD with emphysema COVID-19 (~11/2022) Fracture of distal phalanx of ring finger Gastroesophageal reflux disease Generalized anxiety disorder with panic attacks Osteoporosis Protein-calorie malnutrition, severe Pulmonary cachexia due to chronic obstructive pulmonary disease Right hand fracture Secondary nonischemic congestive cardiomyopathy With ejection fraction of 40-45%, diastolic dysfunction grade 1, mid inferior wall, mid anterior wall, mid in for septal wall mid anterior lateral wall, basal apical septum and mid inferior wall hypokinesis on echocardiogram 03/2022 Spontaneous pneumothorax (08/2012) Several pneumothoraces status post VATS procedure and apical blebectomy as well as pleurodesis. Tobacco abuse Quit in 2019 per patient report. Vitamin D deficiency Surgical History Surgical History History of bilateral tubal ligation History of section History of hip surgery (07/2019) ORIF of right femur fracture. History of tonsillectomy Status post thoracotomy Left-sided VATS procedure and apical bleb resection with pleurodesis. Family History Family History Father Acute myocardial infarction Mother Chronic obstructive pulmonary disease Social History Social History Social History: The patient had 3 sons but one from drug overdose. Patient is an alcoholic. When asked how much she drinks she states ?not enough.? Upon further questioning the patient the does admit that she drinks at least 6-12 pack per day. She is still adamant that she quit smoking. When we try to further delineate when she quit smoking she cannot provide specifics. One
[2023-07-16 02:04] LABS: Basophils Absolute Auto 0.1 K/mm3 (0.0-0.1); Basophils Percent Auto 0.6 % (0.2-1.2); Eosinophils Absolute Auto 0.2 K/mm3 (0-0.3); Eosinophils Percent Auto 2.3 % (0-4.4); Hematocrit 31.9 % (37.0-47.0); Hemoglobin 9.4 g/dL (12.0-15.0); Immature Granulocyte Absolute 0.03 K/mm3 (0.00-0.031); Immature Granulocyte Percent A 0.3 % (0-0.5); Lymphocytes Absolute Auto 1.06 K/mm3 (0.9-3.2); Lymphocytes Percent Auto 11.8 % (18.3-44.2); Mean Corpuscular HGB Conc 29.5 g/dl (32-36); Mean Corpuscular Hemoglobin 33.9 pg (26-34); Mean Corpuscular Volume 115.2 fl (80-100); Mean Platelet Volume 8.9 fl (7.4-10.4); Monocytes Absolute Auto 1.2 K/mm3 (0.1-0.6); Monocytes Percent Auto 13.2 % (2.6-8.5); Neutrophils Absolute Auto 6.5 K/mm3 (1.3-6.7); Neutrophils Percent Auto 71.8 % (45.5-73.1); Platelet Count Result 276 k/mm3 (150-375); Red Blood Count 2.77 M/mm3 (4.2-5.4); Red Cell Distribution Width 14.8 % (11.5-14.5)
[2023-07-16] MEDS: SODIUM CHLORIDE 0.9% IV 1,000 ML 999 ML IV CONT (02:08)
[2023-07-16 02:16] LABS: Lactic Acid Reflex 3.3 mmol/L (0.7-2.0)
[2023-07-16 02:17] LABS: Prothrombin Time 13.5 Seconds (11.1-14.7)
[2023-07-16 02:18] LABS: Macrocytosis 1+ (NORMAL); Platelet Estimate Adequate (Adequate)
[2023-07-16 02:19] LABS: Hypochromasia 1+ (NORMAL); Schistocytes None Seen (NORMAL)
[2023-07-16 02:28] LABS: NT Pro B Type Natriuretic Pept 1450 pg/mL (19.9-100); Troponin I < 0.012 ng/mL (0.000-0.034)
[2023-07-16 02:36] LABS: Alanine Aminotransferase 227 U/L (6-35); Albumin Level 2.7 g/dL (3.5-5.1); Alkaline Phosphatase 200 U/L (38-126); Aspartate Amino Transferase 493 U/L (14-36); Bilirubin,Total 0.8 mg/dL (0.2-1.3); Calcium 8.3 mg/dL (8.4-10.2); Carbon Dioxide > 40 mmol/L (22-30); Chloride 80 mmol/L (98-107); Estimated CRCL calculation 71 ml/min; Estimated Glomerular Filt Rate > 60; Glucose 91 mg/dL (65-110); Potassium 4.2 mmol/L (3.4-5.0); Sodium 134 mmol/L (137-145)
[2023-07-16 02:59] LABS: Blood Urea Nitrogen < 2 mg/dL (7-17)
[2023-07-16 03:01] LABS: Procalcitonin 7.2 ng/mL
--- NOTE | 2023-07-16 03:14 | PC.NURSE ---
Pt to CT at this time.
[2023-07-16 03:20] LABS: Alveolar/Arterial O2 Gradient 39.4 mmHg; Base Excess ABG 20.8 mEq/l (+/-2.0); Fractional Inspired Oxygen 36 %; Oxygen Content ABG 12.3 %vol (16.0-22.0); Oxygen Saturation ABG 98.5 % (95.0-100.0); Oxyhemoglobin 97.5 % THb (90.0-100.0); PO2 ABG 131.3 mmHg (80.0-100.0); PO2 FiO2 Ratio Arterial Blood 3.65 %; Total Hemoglobin 8.8 g/dL (12.0-18.0); pH ABG 7.429 (7.350-7.450)
[2023-07-16 03:22] LABS: Device NASAL CANNULA; Modified Allen's Test Pass; PCO2 ABG 74.1 mmHg (35.0-45.0); Site Drawn LEFT RADIAL
[2023-07-16 04:16] LABS: Appearance Urine Clear (Clear); Bilirubin Urine Negative (Negative); Blood Urine Negative (Negative); Color Urine Yellow (Yellow); Glucose Urine UA Negative (Negative); Ketones Urine Negative (Negative); Leukocyte Esterase Ur Negative LEU/UL (Negative); Nitrate Urine Negative (Negative); Protein Urine Negative (Negative); Specific Grav Ur 1.032 (1.001-1.035); pH Urine 7.5 (5.0-9.0)
[2023-07-16 04:20] LABS: Add Urine Microscopic? NO
--- NOTE | 2023-07-16 04:30 | PC.NURSE ---
This RN attempted to obtain cultures and 3 hour trop and was unsuccessful. saw straightener made aware.
[2023-07-16 05:02] LABS: Reflex Lactic Acid Yes or No Add Lactic
[2023-07-16 06:49] LABS: Lactic Acid 0.8 mmol/L (0.7-2.0)
[2023-07-16 06:59] LABS: Ethanol < 10 mg/dL (<10)
[2023-07-16 07:02] LABS: Troponin I < 0.012 ng/mL (0.000-0.034)
--- NOTE | 2023-07-16 07:10 | PC.NURSE ---
Report given to RAHUL Garcia.
[2023-07-16] MEDS: AZITHROMYCIN 500 MG/NS 250 ML 500 MG/250 ML BAG 250 MG IVPB (07:19)
[2023-07-16] MEDS: IPRATROPIUM BR 0.02% INH SOLN 0.5 MG/2.5 ML VIAL INHALATION ×3 (07:34→20:41)
[2023-07-16] MEDS: ALBUTEROL SULFATE NEB 2.5 MG/3 ML INH INHALATION ×3 (07:34→20:41)
--- NOTE | 2023-07-16 07:56 | PC.NURSE ---
Called dietary and ordered breakfast tray for pt at this time.
--- NOTE | 2023-07-16 08:16 | ADMGEN ---
This patient, Esther Brink, was admitted to [facility] Surg Room 316-01. Patient/family oriented to hospital policies and general routines including ID bracelet, bed and alarms, visiting hours, pain management, procedures, bathroom and other care routines, personal items, smoking policy, room service/diet, and visiting hours. Information on how to activate the Rapid Response Team has been discussed. Patient/Family are encouraged to report perceived risks to care and to ask questions if they do not understand what they are told or what they should do.
--- NOTE | 2023-07-16 13:59 | PM.IMHP ---
H&P: HPI History of Present Illness Date/Time: 07/16/23 13:59 Chief Complaint: Weakness Narrative: 57yo female with COPD, chronic respiratory failure (3-4L) and CMP here for weakness and anxiety. Patient is somnolent but arouses. She does not answer questions readily and requires frequent prompting. She feels she is at home. Thus her history is unreliable. According to the ED notes, patient here for anxiety and anxiety attack at home. She was tachycardic and blood pressure soft. She appears to have low BP chronically. No fevers but was tachypneic. Lactic acid was 3.3 but normal on repeat. Chest x-ray shows left upper lobe middle lobe airspace opacities. CT of the abdomen pelvis shows ascites evidence of cirrhosis. Scanned through the bases showed severe emphysema with left basilar bolus changes, small bilateral pleural effusions and mild left basilar atelectasis. Procalcitonin was 7.2. ABG 7.43/74/131 on 4 L. LFTs were elevated. Chart review shows that she did have a Sammi dated LFTs last admission about 2 months ago. Ultrasound at that time showed cirrhosis with marked edematous gallbladder wall thickening but decompressed gallbladder. There is concern for acute cholecystitis so cholecystostomy tube was planned but could not be placed because gallbladder was too contracted. White count is normal. UA was clear. Hemoglobin 9.4 which is improved from last discharge. She was given a L of fluid. She was given Rocephin azithromycin for possible pneumonia. She was started on nebulizer treatments. She was admitted for further care. Review of Systems Review of Systems: ROS unobtainable: Yes unobtainable due to mental status PMFSH Past Medical History Medical History Abnormal EKG EKG has previously shown ST elevation which appears to be early repolarization. Alcohol abuse Anxiety Asthma B12 deficiency anemia Chronic anemia Chronic hyponatremia Chronic respiratory failure with hypoxia and hypercapnia On Trelegy unit at nighttime. However the patient is noncompliant 3 L nasal cannula during the day. Closed traumatic nondisplaced fracture of proximal end of right humerus Cognitive impairment COPD with emphysema COVID-19 (~11/2022) Fracture of distal phalanx of ring finger Gastroesophageal reflux disease Generalized anxiety disorder with panic attacks Osteoporosis Protein-calorie malnutrition, severe Pulmonary cachexia due to chronic obstructive pulmonary disease Right hand fracture Secondary nonischemic congestive cardiomyopathy With ejection fraction of 40-45%, diastolic dysfunction grade 1, mid inferior wall, mid anterior wall, mid in for septal wall mid anterior lateral wall, basal apical septum and mid inferior wall hypokinesis on echocardiogram 03/2022 Spontaneous pneumothorax (08/2012) Several pneumothoraces status post VATS procedure and apical blebectomy as well as pleurodesis. Tobacco abuse Quit in 2019 per patient report. Vitamin D deficiency Surgical History Surgical History History of bilateral tubal ligation History of section History of hip surgery (07/2019) ORIF of right femur fracture. History of tonsillectomy Status post thoracotomy Left-sided VATS procedure and apical bleb resection with pleurodesis. Family History Family History Father Acute myocardial infarction Mother Chronic obstructive pulmonary disease Social History Social History Social History: The patient had 3 sons but one from drug overdose. Patient is an alcoholic. When asked how much she drinks she states ?not enough.? Upon further questioning the patient the does admit that she drinks at least 6-12 pack per day. She is still adamant that she quit smoking. When we try to further delineate
--- NOTE | 2023-07-16 15:05 | PC.NURSE ---
patient to ct per w/c with 4 L oxygen
--- NOTE | 2023-07-16 15:10 | PC.NURSE ---
patient asked me to reach out to Neo Brooke who is listed as her contact. He called back. He states that he is her ex and will gladly answer questions, but he is not the person who makes decisions for her. He thinks that her son Lino Foote might be her medical POA.
[2023-07-16] MEDS: acetaZOLAMIDE SODIUM FOR INJ 500 MG VIAL 250 MG IV PUSH (15:20)
[2023-07-16] MEDS: AMPICILLIN SULB 3 GM/NS 100 ML 3 GM/100 ML VIAL IVPB ×2 (16:07→22:11)
[2023-07-16 16:10] LABS: Ammonia 20 umol/L (9-30)
[2023-07-16 16:12] LABS: Influenza A QL RT-PCR Negative (Negative); Influenza B QL RT-PCR Negative (Negative); RSV RNA, RT-PCR Negative (Negative); SARS-CoV-2 RNA PCR Negative (Negative)
[2023-07-16] MEDS: VANCOMYCIN 1,000 MG/NS 250 ML 1,000 MG/250 ML BAG 250 MG IVPB (16:27)
[2023-07-16] MEDS: MIDODRINE HCL 2.5 MG TABLET PO (16:28)
[2023-07-16 17:18] LABS: Amphetamine Screen Urine Negative (Negative); Barbiturate Screen Urine Negative (Negative); Benzodiazepines Screen Urine Positive (Negative); Cannabinoid Screen Urine Negative (Negative); Cocaine Screen Urine Negative (Negative); Methadone Screen Urine Negative (Negative); Opiate Screen Urine Negative (Negative); Phencyclidine Screen Urine Negative (Negative)
[2023-07-16 17:20] LABS: Hepatitis B Surface Antigen Negative (Negative)
[2023-07-16 17:25] LABS: HAV RESULT Negative (Negative); Hepatitis B Core IgM Result Negative (Negative)
[2023-07-16 17:37] LABS: Hepatitis C Virus Antibody Negative (Negative)
[2023-07-16] MEDS: BUDESONIDE RESPULE NEB 0.5 MG/2 ML AMP INHALATION (20:39)
[2023-07-16] MEDS: MIRTAZAPINE 30 MG TABLET PO (20:54)
[2023-07-16] MEDS: SODIUM CHLORIDE 0.9% IV 500 ML IV CONT (22:00)
[2023-07-17] VITALS (20 sets, daily range): BP systolic 92–101; BP diastolic 55–69; PULSE 91–114; RESP 13–24; TEMP 36.2–37.1; O2SAT 91–100
[2023-07-17] MEDS: ALBUTEROL SULFATE NEB 2.5 MG/3 ML INH INHALATION ×4 (02:49→19:50)
[2023-07-17] MEDS: IPRATROPIUM BR 0.02% INH SOLN 0.5 MG/2.5 ML VIAL INHALATION ×4 (02:49→19:49)
[2023-07-17] MEDS: AMPICILLIN SULB 3 GM/NS 100 ML 3 GM/100 ML VIAL IVPB ×4 (04:41→20:35)
[2023-07-17 05:45] LABS: Alveolar/Arterial O2 Gradient 125.1 mmHg; Base Excess ABG 14.9 mEq/l (+/-2.0); Fractional Inspired Oxygen 36 %; HCO3 ABG 44.2 mEq/l (22.0-26.0); Oxygen Content ABG 6.9 %vol (16.0-22.0); PO2 FiO2 Ratio Arterial Blood 0.78 %; Total Hemoglobin 10.2 g/dL (12.0-18.0); pH ABG 7.312 (7.350-7.450)
[2023-07-17] MEDS: AZITHROMYCIN 500 MG/NS 250 ML 500 MG/250 ML BAG 250 MG IVPB (05:58)
[2023-07-17 06:03] LABS: PO2 ABG 90.4 mmHg (80.0-100.0)
[2023-07-17 06:04] LABS: Device NASAL CANNULA; Modified Allen's Test Pass; Oxygen Saturation ABG 95.9 % (95.0-100.0); Oxyhemoglobin 95.6 % THb (90.0-100.0); Site Drawn RIGHT RADIAL
[2023-07-17] MEDS: BUDESONIDE RESPULE NEB 0.5 MG/2 ML AMP INHALATION ×2 (07:20→19:50)
[2023-07-17 07:28] LABS: Alanine Aminotransferase 144 U/L (6-35); Albumin Level 2.3 g/dL (3.5-5.1); Alkaline Phosphatase 144 U/L (38-126); Aspartate Amino Transferase 145 U/L (14-36); Bilirubin,Total 0.6 mg/dL (0.2-1.3); Calcium 7.7 mg/dL (8.4-10.2); Carbon Dioxide > 40 mmol/L (22-30); Chloride 98 mmol/L (98-107); Estimated CRCL calculation 74 ml/min; Estimated Glomerular Filt Rate > 60; Glucose 78 mg/dL (65-110); Magnesium 2.2 mg/dL (1.6-2.3); Phosphorus 2.9 mg/dL (2.5-4.5); Potassium 3.6 mmol/L (3.4-5.0); Sodium 135 mmol/L (137-145)
[2023-07-17 07:29] LABS: Blood Urea Nitrogen < 2 mg/dL (7-17)
[2023-07-17 07:30] LABS: Basophils Absolute Auto 0.1 K/mm3 (0.0-0.1); Basophils Percent Auto 1.1 % (0.2-1.2); Eosinophils Absolute Auto 0.3 K/mm3 (0-0.3); Eosinophils Percent Auto 3.9 % (0-4.4); Hematocrit 29.8 % (37.0-47.0); Hemoglobin 8.5 g/dL (12.0-15.0); Immature Granulocyte Absolute 0.03 K/mm3 (0.00-0.031); Immature Granulocyte Percent A 0.4 % (0-0.5); Lymphocytes Absolute Auto 1.04 K/mm3 (0.9-3.2); Lymphocytes Percent Auto 14.4 % (18.3-44.2); Mean Corpuscular HGB Conc 28.5 g/dl (32-36); Mean Corpuscular Hemoglobin 33.7 pg (26-34); Mean Corpuscular Volume 118.3 fl (80-100); Mean Platelet Volume 9.2 fl (7.4-10.4); Monocytes Absolute Auto 1.1 K/mm3 (0.1-0.6); Monocytes Percent Auto 15.8 % (2.6-8.5); Neutrophils Absolute Auto 4.6 K/mm3 (1.3-6.7); Neutrophils Percent Auto 64.4 % (45.5-73.1); Platelet Count Result 308 k/mm3 (150-375); Red Blood Count 2.52 M/mm3 (4.2-5.4); Red Cell Distribution Width 15.2 % (11.5-14.5); White Blood Count 7.2 K/mm3 (4.5-10.0)
[2023-07-17 08:17] LABS: Procalcitonin 4.4 ng/mL
[2023-07-17] MEDS: THIAMINE HCL 100 MG TABLET PO (08:49)
[2023-07-17] MEDS: MIDODRINE HCL 2.5 MG TABLET PO ×3 (08:49→16:53)
[2023-07-17] MEDS: FLUoxetine HCL 20 MG CAPSULE PO (08:49)
[2023-07-17] MEDS: FOLIC ACID 1 MG TABLET PO (08:49)
[2023-07-17] MEDS: MULTIVITAMINS THERAPEUTIC TAB (*BKC) 1 TABLET PO (08:49)
[2023-07-17 09:02] LABS: Hypochromasia 1+ (NORMAL); Platelet Estimate Adequate (Adequate); Stomatocytes 1+ (NORMAL)
[2023-07-17 09:03] LABS: Macrocytosis 1+ (NORMAL); Schistocytes None Seen (NORMAL)
[2023-07-17] MEDS: VANCOMYCIN 750 MG/NS 250 ML 750 MG/250 ML BAG 250 MG IVPB (10:40)
--- NOTE | 2023-07-17 15:01 | PM.IMPN ---
Progress Note: A&P Assessment and Plan (1) Sepsis: Code(s): A41.9 - Sepsis, unspecified organism Status: Acute Assessment and Plan: Sepsis was present on admission with lactic acidosis, tachycardia and hypotension. Procalcitonin level was elevated at 7.2. Probably related to pneumonia. LFTs elevated which could be from the hypotension or possibly from acalculous cholecystitis. Consider SBP. BCx 07/16 growing gram positive cocci in clusters aerobic bottle only (1of2). MRSA screen 07/16 - pending Continue Unasyn and Vanco. Repeat BCx in the morning. (2) Somnolence: Code(s): R40.0 - Somnolence Status: Acute Assessment and Plan: Patient presents with anxiety. Patient was very somnolent. No focal weakness appreciated on exam. She has not received medications that would explain this. She is on alprazolam as needed at home which was held. Ammonia level 20. Her pCO2 was 74 but her pH was normal suggest this is more chronic. CT of the head showingno acute findings. UDS positive for benzos that she takes at home. [place] related to sepsis. Some improvement today. (3) Chronic respiratory failure with hypoxia and hypercapnia: Code(s): J96.11 - Chronic respiratory failure with hypoxia; J96.12 - Chronic respiratory failure with hypercapnia Status: Acute Assessment and Plan: Patient on 3-4 L of oxygen chronically. Patient has chronic CO2 retention. She refused her bipap last night and she is pouring out her neb treatments. Resp Therapist now is staying in the room with the patient to ensure she is getting the treatment. There are notes in the chart stating the patient is noncompliant with her Trelegy at home. Given 1 dose of acetazolamide;. Encouraged compliance. (4) Pneumonia: Code(s): J18.9 - Pneumonia, unspecified organism Status: Resolved Assessment and Plan: Chest x-ray reviewed showing left upper lobe and right mid lung airspace disease. Small left pleural effusion noted as well and this was seen on the CT scan. Unclear if patient is having symptoms of pneumonia. White count normal. Lactic acid was elevated 3.3 but on repeat after IV fluids, lactic acid normal Procalcitonin is extremely high at 7.2 with lower on repeat. Blood cultures as above. Follow up on culture results. Continue neb treatments. Continue current abx. (5) Hypotension: Qualifiers: Hypotension type: hypotension due to hypovolemia Qualified Code(s): I95.89 - Other hypotension; E86.1 - Hypovolemia Code(s): I95.9 - Hypotension, unspecified Status: Acute Assessment and Plan: Patient not on antihypertensive medications. Blood pressure appears to be chronically low possibly related to her cirrhosis. Midodrine added. Continue to monitor. Follow. (6) Increased liver enzymes: Code(s): R74.8 - Abnormal levels of other serum enzymes Status: Acute Assessment and Plan: Patient with elevated liver enzymes on admission that were higher than the prior admission. Could be related to hepatic congestion from the hypotension. COVID and viral hepatitis panel negative. Could be related to the underlying cirrhosis with exacerbation. Right upper quadrant ultrasound showing cholelithiasis with evidence of cholecystitis, ascites and pleural effusion. Try to obtain ascitic fluid if she allows. Continue to follow. (7) Acute exacerbation of chronic obstructive pulmonary disease: Code(s): J44.1 - Chronic obstructive pulmonary disease with (acute) exacerbation Status: Acute Assessment and Plan: Wheezing noted. She may have a mild exacerbation. Continue nebulizer treatments. Hold off on steroids given the underlying sepsis and pneumonia. (8) Protein-calorie malnutrition, severe: Code(s): E43 - Unspecified severe protein-calorie malnutrition Status: Acute Assessment and Plan: Patient with severe protein calorie
[2023-07-17 15:38] LABS: Alveolar/Arterial O2 Gradient 131.1 mmHg; Base Excess ABG 15.4 mEq/l (+/-2.0); Carboxyhemoglobin 0.3 % THb (0-2.0); Fractional Inspired Oxygen 36 %; HCO3 ABG 42.1 mEq/l (22.0-26.0); Methemoglobin ABG 0.5 %THb (0-1.5); Oxygen Content ABG 11.3 %vol (16.0-22.0); PO2 FiO2 Ratio Arterial Blood 1.34 %; Reduced Hemoglobin 12.7 %THb (0-5.0); Total Hemoglobin 9.3 g/dL (12.0-18.0); pH ABG 7.419 (7.350-7.450)
--- NOTE | 2023-07-17 15:42 | PCRCNOTE ---
RT notified Dr. Guzman of possible mixed venous blood gas results. Dr. Guzman stated it was ok to place patient back on SD.
[2023-07-17 15:48] LABS: Oxygen Saturation ABG 83.2 % (95.0-100.0); Oxyhemoglobin 86.5 % THb (90.0-100.0); PCO2 ABG 66.5 mmHg (35.0-45.0); PO2 ABG 48.4 mmHg (80.0-100.0)
[2023-07-17 15:49] LABS: Device HIGH FLOW THERAPY; Modified Allen's Test Pass; Site Drawn RIGHT RADIAL
[2023-07-17 17:20] LABS: Appearance Peritoneal Fluid Clear (Clear); Source Peritoneal Fluid Peritoneal Fluid
[2023-07-17 17:21] LABS: Color Peritoneal Fluid Yellow (Colorless); Lymphocytes Peritoneal Fluid 31 %; Macrophages Peritoneal Fluid 5 %; Mesothelial Cells Peritoneal Fluid 1 %; Monocytes Peritoneal Fluid 63 %; Nucleated Cells Peritoneal Flu 48 /uL (0-500); RBC Peritoneal Fluid < 2000 /uL (0-100000)
[2023-07-17] MEDS: MIRTAZAPINE 30 MG TABLET PO (20:35)
[2023-07-18] VITALS (16 sets, daily range): BP systolic 95–114; BP diastolic 56–72; PULSE 90–110; RESP 12–22; TEMP 36.4–37.2; O2SAT 93–100
[2023-07-18] MEDS: IPRATROPIUM BR 0.02% INH SOLN 0.5 MG/2.5 ML VIAL INHALATION ×4 (02:34→19:42)
[2023-07-18] MEDS: ALBUTEROL SULFATE NEB 2.5 MG/3 ML INH INHALATION ×4 (02:34→19:42)
[2023-07-18 04:20] LABS: Basophils Percent Auto 0.7 % (0.2-1.2); Eosinophils Absolute Auto 0.2 K/mm3 (0-0.3); Eosinophils Percent Auto 3.5 % (0-4.4); Hematocrit 27.6 % (37.0-47.0); Hemoglobin 8.4 g/dL (12.0-15.0); Immature Granulocyte Absolute 0.02 K/mm3 (0.00-0.031); Immature Granulocyte Percent A 0.3 % (0-0.5); Lymphocytes Percent Auto 14.9 % (18.3-44.2); Mean Corpuscular HGB Conc 30.4 g/dl (32-36); Mean Corpuscular Hemoglobin 33.9 pg (26-34); Mean Corpuscular Volume 111.3 fl (80-100); Mean Platelet Volume 8.7 fl (7.4-10.4); Monocytes Absolute Auto 0.8 K/mm3 (0.1-0.6); Monocytes Percent Auto 13.6 % (2.6-8.5); Neutrophils Absolute Auto 4.1 K/mm3 (1.3-6.7); Platelet Count Result 278 k/mm3 (150-375); Red Blood Count 2.48 M/mm3 (4.2-5.4); White Blood Count 6.1 K/mm3 (4.5-10.0)
[2023-07-18] MEDS: AMPICILLIN SULB 3 GM/NS 100 ML 3 GM/100 ML VIAL IVPB ×4 (04:31→20:22)
[2023-07-18 04:33] LABS: Alanine Aminotransferase 109 U/L (6-35); Albumin Level 2.2 g/dL (3.5-5.1); Alkaline Phosphatase 147 U/L (38-126); Aspartate Amino Transferase 76 U/L (14-36); Bilirubin,Total 0.6 mg/dL (0.2-1.3); Blood Urea Nitrogen 2 mg/dL (7-17); Calcium 7.8 mg/dL (8.4-10.2); Carbon Dioxide > 40 mmol/L (22-30); Chloride 94 mmol/L (98-107); Estimated CRCL calculation 61 ml/min; Estimated Glomerular Filt Rate > 60; Glucose 110 mg/dL (65-110); Potassium 3.3 mmol/L (3.4-5.0); Sodium 138 mmol/L (137-145)
[2023-07-18 04:56] LABS: Vancomycin Trough 6.2 ug/mL (10.0-20.0)
[2023-07-18] MEDS: VANCOMYCIN 1,250 MG/NS 250 ML 1,250 MG/250 ML BAG 166.67 MG IVPB ×2 (05:40→16:50)
[2023-07-18 07:46] LABS: Magnesium 2.1 mg/dL (1.6-2.3)
[2023-07-18] MEDS: BUDESONIDE RESPULE NEB 0.5 MG/2 ML AMP INHALATION ×2 (07:59→19:42)
[2023-07-18] MEDS: FLUoxetine HCL 20 MG CAPSULE PO (09:04)
[2023-07-18] MEDS: POTASSIUM CHLORIDE 20 MEQ ER TABLET 40 MEQ PO (09:04)
[2023-07-18] MEDS: FOLIC ACID 1 MG TABLET PO (09:04)
[2023-07-18] MEDS: THIAMINE HCL 100 MG TABLET PO (09:04)
[2023-07-18] MEDS: MIDODRINE HCL 2.5 MG TABLET 5 MG PO ×3 (09:04→16:49)
[2023-07-18] MEDS: MULTIVITAMINS THERAPEUTIC TAB (*BKC) 1 TABLET PO (09:05)
--- NOTE | 2023-07-18 10:48 | PCOTNOTE ---
Attempted OT evaluation. Patient refused any/all activity at this time. Reports she's too tired . Will continue to attempt.
--- NOTE | 2023-07-18 13:45 | PM.IMPN ---
Progress Note: A&P Assessment and Plan (1) Sepsis: Code(s): A41.9 - Sepsis, unspecified organism Status: Acute Assessment and Plan: Sepsis was present on admission with lactic acidosis, tachycardia and hypotension. Procalcitonin level was elevated at 7.2. Probably related to pneumonia and possibly bacteremia. LFTs elevated which could be from the hypotension or possibly from cholecystitis. Paracentesis 07/17 showing only 48 WBC. Doubt SBP. BCx 07/16 growing Staph epidermidis (2of2) MRSA screen 07/16 - negative Paracentesis 07/17 - NGTD Continue Unasyn and Vanco. Repeat BCx (2) Somnolence: Code(s): R40.0 - Somnolence Status: Acute Assessment and Plan: Patient presents with complaints of anxiety. Patient became very somnolent. No focal weakness appreciated on exam. She has not received medications that would explain this. She was on alprazolam as needed at home which was held. Ammonia level 20. Her pCO2 was 74 but her pH was normal to suggest this is more chronic. CT of the head showing no acute findings. UDS positive for benzos that she takes at home. [place] related to sepsis. She is much improved today but still confused (confusion her baseline?) (3) Chronic respiratory failure with hypoxia and hypercapnia: Code(s): J96.11 - Chronic respiratory failure with hypoxia; J96.12 - Chronic respiratory failure with hypercapnia Status: Acute Assessment and Plan: Patient on 3-4 L of oxygen chronically. Patient has chronic CO2 retention. She is refusing her bipap and is pouring out her neb treatments per Respiratory Therapist. There are notes in the chart stating the patient is noncompliant with her Trelegy at home. Given 1 dose of acetazolamide. Encouraged compliance. Continue supplemental O2 (4) Pneumonia: Code(s): J18.9 - Pneumonia, unspecified organism Status: Resolved Assessment and Plan: Chest x-ray reviewed showing left upper lobe and right mid lung airspace disease. Small left pleural effusion noted as well and this was seen on the CT scan. Unclear if patient is having symptoms of pneumonia. White count normal. Lactic acid was elevated 3.3 but on repeat after IV fluids, lactic acid normal Procalcitonin was extremely high at 7.2 that is trending down on repeat. Blood cultures as above. Continue neb treatments. Continue current abx. (5) Hypotension: Qualifiers: Hypotension type: hypotension due to hypovolemia Qualified Code(s): I95.89 - Other hypotension; E86.1 - Hypovolemia Code(s): I95.9 - Hypotension, unspecified Status: Acute Assessment and Plan: Patient not on antihypertensive medications. Blood pressure appears to be chronically low possibly related to her cirrhosis. Midodrine added and advanced. Continue to monitor. Follow. (6) Increased liver enzymes: Code(s): R74.8 - Abnormal levels of other serum enzymes Status: Acute Assessment and Plan: Patient with elevated liver enzymes on admission that were higher than the prior admission. Could be related to hepatic congestion from the hypotension. COVID and viral hepatitis panel negative. Could be related to the underlying cirrhosis with exacerbation. Right upper quadrant ultrasound showing cholelithiasis without evidence of cholecystitis, ascites and pleural effusion. Paracentesis 07/17 with 900mL removed. As above. Continue to follow. (7) Acute exacerbation of chronic obstructive pulmonary disease: Code(s): J44.1 - Chronic obstructive pulmonary disease with (acute) exacerbation Status: Acute Assessment and Plan: Wheezing noted initially. She may have a mild exacerbation. Treated with nebulizer treatments. Hold off on steroids given the underlying sepsis and pneumonia. Continue current treatment plan (8) Protein-calorie malnutrition, severe: Code(s): E43 - Unspecified severe protein-calorie malnutriti
[2023-07-18] MEDS: MIRTAZAPINE 30 MG TABLET PO (20:22)
[2023-07-19] VITALS (13 sets, daily range): BP systolic 112–128; BP diastolic 72–78; PULSE 89–107; RESP 16–22; TEMP 36.4–36.5; O2SAT 94–100
--- NOTE | 2023-07-19 01:13 | PC.NURSE ---
Spoke with Dr. Cobian at this time r/t patient c/o AGUILAR and stomach burning, and increased anxiety. New orders received to restart home xanax and to give GI cocktail.
[2023-07-19] MEDS: ALPRAZolam (*CRX) 0.25 MG TABLET PO ×3 (01:20→20:28)
[2023-07-19] MEDS: BELLADONNA ALK/PHENOB ELIX 10 ML, MAG HYDROX/ALUMINUM HYD/SIMETH 30 ML, LIDOCAINE HCL 2... PO (01:24)
[2023-07-19] MEDS: IPRATROPIUM BR 0.02% INH SOLN 0.5 MG/2.5 ML VIAL INHALATION ×2 (01:27→08:14)
[2023-07-19] MEDS: ALBUTEROL SULFATE NEB 2.5 MG/3 ML INH INHALATION ×4 (01:27→19:25)
[2023-07-19] MEDS: AMPICILLIN SULB 3 GM/NS 100 ML 3 GM/100 ML VIAL IVPB ×4 (04:27→20:26)
[2023-07-19] MEDS: VANCOMYCIN 1,250 MG/NS 250 ML 1,250 MG/250 ML BAG 250 MG IVPB (04:27)
[2023-07-19 06:56] LABS: Basophils Percent Auto 0.6 % (0.2-1.2); Eosinophils Absolute Auto 0.2 K/mm3 (0-0.3); Eosinophils Percent Auto 3.3 % (0-4.4); Hematocrit 28.2 % (37.0-47.0); Hemoglobin 8.4 g/dL (12.0-15.0); Immature Granulocyte Absolute 0.02 K/mm3 (0.00-0.031); Immature Granulocyte Percent A 0.4 % (0-0.5); Lymphocytes Absolute Auto 0.96 K/mm3 (0.9-3.2); Lymphocytes Percent Auto 18.6 % (18.3-44.2); Mean Corpuscular HGB Conc 29.8 g/dl (32-36); Mean Corpuscular Hemoglobin 33.5 pg (26-34); Mean Corpuscular Volume 112.4 fl (80-100); Mean Platelet Volume 9.1 fl (7.4-10.4); Monocytes Absolute Auto 0.9 K/mm3 (0.1-0.6); Monocytes Percent Auto 16.7 % (2.6-8.5); Neutrophils Absolute Auto 3.1 K/mm3 (1.3-6.7); Neutrophils Percent Auto 60.4 % (45.5-73.1); Platelet Count Result 265 k/mm3 (150-375); Red Blood Count 2.51 M/mm3 (4.2-5.4); Red Cell Distribution Width 15.2 % (11.5-14.5); White Blood Count 5.2 K/mm3 (4.5-10.0)
[2023-07-19 07:23] LABS: Alanine Aminotransferase 88 U/L (6-35); Albumin Level 2.4 g/dL (3.5-5.1); Alkaline Phosphatase 146 U/L (38-126); Aspartate Amino Transferase 48 U/L (14-36); Bilirubin,Total 0.7 mg/dL (0.2-1.3); Blood Urea Nitrogen 3 mg/dL (7-17); Calcium 7.6 mg/dL (8.4-10.2); Carbon Dioxide > 40 mmol/L (22-30); Chloride 95 mmol/L (98-107); Estimated CRCL calculation 81 ml/min; Estimated Glomerular Filt Rate > 60; Glucose 80 mg/dL (65-110); Potassium 3.8 mmol/L (3.4-5.0); Sodium 138 mmol/L (137-145)
[2023-07-19 07:36] LABS: Hypochromasia 1+ (NORMAL); Macrocytosis 1+ (NORMAL); Platelet Estimate Adequate (Adequate); Schistocytes None Seen (NORMAL)
[2023-07-19] MEDS: BUDESONIDE RESPULE NEB 0.5 MG/2 ML AMP INHALATION ×2 (08:14→19:25)
[2023-07-19] MEDS: FOLIC ACID 1 MG TABLET PO (08:51)
[2023-07-19] MEDS: MULTIVITAMINS THERAPEUTIC TAB (*BKC) 1 TABLET PO (08:51)
[2023-07-19] MEDS: MIDODRINE HCL 2.5 MG TABLET 5 MG PO ×3 (08:52→17:02)
[2023-07-19] MEDS: THIAMINE HCL 100 MG TABLET PO (08:52)
[2023-07-19] MEDS: FLUoxetine HCL 20 MG CAPSULE PO (08:52)
[2023-07-19] MEDS: ACETAMINOPHEN 325 MG TABLET PO ×2 (12:32→20:24)
--- NOTE | 2023-07-19 13:48 | PM.IMPN ---
Progress Note: A&P Assessment and Plan (1) Sepsis: Code(s): A41.9 - Sepsis, unspecified organism Status: Acute Assessment and Plan: Sepsis was present on admission with lactic acidosis, tachycardia and hypotension. Procalcitonin level was elevated at 7.2. Probably related to pneumonia and the bacteremia. LFTs elevated which could be from the hypotension and felt less likely cholecystitis. Paracentesis 07/17 showing only 48 WBC. Doubt SBP. Possibly a contaminant. BCx (07/16) growing Staph epidermidis (2of2) sensitive to Vacno MRSA screen 07/16 - negative Paracentesis 07/17 - NGTD BCx (07/18) NGTD Continue Unasyn and Vanco. Check Echo (2) Somnolence: Code(s): R40.0 - Somnolence Status: Acute Assessment and Plan: Patient presents with complaints of anxiety. Patient became very somnolent. No focal weakness appreciated on exam. She has not received medications that would explain this. She was on alprazolam as needed at home which was held. Ammonia level 20. Her pCO2 was 74 but her pH was normal to suggest this is more chronic. CT of the head showing no acute findings. UDS positive for benzos that she takes at home. [place] related to sepsis. She is much improved but still confused (confusion her baseline?) Resolving. Continue to follow (3) Chronic respiratory failure with hypoxia and hypercapnia: Code(s): J96.11 - Chronic respiratory failure with hypoxia; J96.12 - Chronic respiratory failure with hypercapnia Status: Acute Assessment and Plan: Patient on 3-4 L of oxygen chronically. Patient has chronic CO2 retention. She is refusing her bipap and is pouring out her neb treatments per Respiratory Therapist. There are notes in the chart stating the patient is noncompliant with her Trelegy at home. Given 1 dose of acetazolamide. Encouraged compliance. Continue supplemental O2. Continue scheduled neb treatments but decrease frequency. (4) Pneumonia: Code(s): J18.9 - Pneumonia, unspecified organism Status: Resolved Assessment and Plan: Chest x-ray reviewed showing left upper lobe and right mid lung airspace disease. Small left pleural effusion noted as well and this was seen on the CT scan. Patient is having symptoms of pneumonia with cough. White count normal. Lactic acid was elevated 3.3 but on repeat after IV fluids, lactic acid normal Procalcitonin was extremely high at 7.2 that is trending down on repeat. Blood cultures as above. Continue neb treatments but decrease frequency. Continue current abx. (5) Hypotension: Qualifiers: Hypotension type: hypotension due to hypovolemia Qualified Code(s): I95.89 - Other hypotension; E86.1 - Hypovolemia Code(s): I95.9 - Hypotension, unspecified Status: Acute Assessment and Plan: Patient not on antihypertensive medications. Blood pressure appears to be chronically low possibly related to her cirrhosis. Midodrine added and advanced. BP better. Continue to monitor. Follow. (6) Increased liver enzymes: Code(s): R74.8 - Abnormal levels of other serum enzymes Status: Acute Assessment and Plan: Patient with elevated liver enzymes on admission that were higher than the prior admission. Could be related to hepatic congestion from the hypotension. COVID and viral hepatitis panel negative. Could be related to the underlying cirrhosis with exacerbation. Right upper quadrant ultrasound showing cholelithiasis without evidence of cholecystitis, ascites and pleural effusion. Paracentesis 07/17 with 900mL removed. LFTs trending down As above. Continue to follow. (7) Acute exacerbation of chronic obstructive pulmonary disease: Code(s): J44.1 - Chronic obstructive pulmonary disease with (acute) exacerbation Status: Acute Assessment and Plan: Wheezing noted initially. She may have a mild exacerbation. Treated with nebulizer treatments. Holding of
[2023-07-19 16:40] LABS: Vancomycin Trough 17.1 ug/mL (10.0-20.0)
[2023-07-19] MEDS: CALCIUM CARBONATE (TUMS) 500 MG (200 MG ELEMENTAL) PO (17:02)
[2023-07-19] MEDS: VANCOMYCIN 1,250 MG/NS 250 ML 1,250 MG/250 ML BAG 166 MG IVPB (17:03)
[2023-07-19] MEDS: MIRTAZAPINE 30 MG TABLET PO (20:25)
[2023-07-20] VITALS (12 sets, daily range): BP systolic 103–117; BP diastolic 54–78; PULSE 83–108; RESP 16–20; TEMP 36.1–36.5; O2SAT 93–100
--- NOTE | 2023-07-20 | ECHO_ITS ---
Patient Info Name: Esther Brink Age: 57 years : 1965 Gender: Female Ht: 62 in Wt: 90 lbs BSA: 1.33 m2 HR: 110 bpm BP: 117 / 78 mmHg Heart Rhythm: Sinus Rhythm Technical Quality: Fair Exam Date: 07/20/2023 11:52 AM Exam Location: [facility] Pulmonary Exam Room: 316 Patient Status: Inpatient Admit Date: 07/17/2023 Staff Ordering Physician: Jose C Guzman MD Vp Digital Marketing: Debi Castro RDCS Attending Provider: Mehreen Serna DO Exam Type: CA echo doppler color flow Study Info Indications - bacteremia Complete two-dimensional, color flow and Doppler transthoracic echocardiogram is performed. Summary 1. Complete two-dimensional, color flow and Doppler transthoracic echocardiogram is performed. 2. Normal left ventricular dimension with vigorous, almost hyperdynamic systolic function. 3. Mildly sclerotic but nonstenotic aortic valve. 4. Compared to echocardiogram from March of 2022, ejection fraction has increased/normalized. Left Ventricle Left ventricular chamber dimension is normal. Left ventricular systolic function is normal, estimated at 60-65%. The left ventricular diastolic function is grade I diastolic dysfunction. Right Ventricle Right ventricular chamber dimension is normal. Left Atria Left atrial chamber dimension is normal. Right Atria Right atrial chamber dimension is normal. Aortic Valve The aortic valve is trileaflet. There is mild aortic valve sclerosis. Pulmonic Valve The pulmonic valve is not well visualized. Mitral Valve The mitral valve has normal leaflets. Tricuspid Valve The tricuspid valve leaflets are normal. Pericardium/Pleural The pericardium appears normal. Aorta The aortic root size at the sinus of Valsalva is normal. Left Ventricular Outflow Tract Name Value Normal LVOT 2D LVOT Diameter 2.0 cm LVOT Doppler LVOT Peak Gradient 7 mmHg LVOT Mean Gradient 3 mmHg LVOT VTI 23 cm LVOT VTI/AV VTI Ratio 1.0 LVOT Stroke Volume 70 ml LVOT CO 15.3 l/min LVOT CI 11.5 l/min/m2 Pulmonic Valve Name Value Normal RVOT Doppler RVOT Peak Gradient 5 mmHg PV Doppler PV Peak Gradient 4 mmHg Mitral Valve Name Value Normal MV Doppler MV Decel [place] 444 cm/s2 MV PHT 55 ms MV Area (PHT) 4.0 cm2 4.0-5.0 MV Diastolic Function ------
[2023-07-20] MEDS: ACETAMINOPHEN 325 MG TABLET PO ×3 (03:51→19:04)
[2023-07-20] MEDS: ALBUTEROL SULFATE (*SP) AEROSOL 1 PUFF 2 PUFF INHALATION (03:55)
[2023-07-20] MEDS: AMPICILLIN SULB 3 GM/NS 100 ML 3 GM/100 ML VIAL IVPB ×3 (04:57→15:41)
[2023-07-20] MEDS: ALPRAZolam (*CRX) 0.25 MG TABLET PO ×2 (04:57→21:54)
[2023-07-20] MEDS: VANCOMYCIN 1,250 MG/NS 250 ML 1,250 MG/250 ML BAG 166 MG IVPB ×2 (06:18→16:24)
[2023-07-20 06:51] LABS: Basophils Percent Auto 0.5 % (0.2-1.2); Eosinophils Absolute Auto 0.2 K/mm3 (0-0.3); Eosinophils Percent Auto 3.6 % (0-4.4); Hematocrit 28.1 % (37.0-47.0); Hemoglobin 8.3 g/dL (12.0-15.0); Immature Granulocyte Absolute 0.02 K/mm3 (0.00-0.031); Immature Granulocyte Percent A 0.3 % (0-0.5); Lymphocytes Absolute Auto 0.67 K/mm3 (0.9-3.2); Lymphocytes Percent Auto 10.4 % (18.3-44.2); Mean Corpuscular HGB Conc 29.5 g/dl (32-36); Mean Corpuscular Hemoglobin 33.5 pg (26-34); Mean Corpuscular Volume 113.3 fl (80-100); Mean Platelet Volume 9.3 fl (7.4-10.4); Monocytes Absolute Auto 0.9 K/mm3 (0.1-0.6); Monocytes Percent Auto 13.8 % (2.6-8.5); Neutrophils Absolute Auto 4.6 K/mm3 (1.3-6.7); Neutrophils Percent Auto 71.4 % (45.5-73.1); Platelet Count Result 243 k/mm3 (150-375); Red Blood Count 2.48 M/mm3 (4.2-5.4); Red Cell Distribution Width 15.4 % (11.5-14.5); White Blood Count 6.5 K/mm3 (4.5-10.0)
[2023-07-20 07:01] LABS: Alanine Aminotransferase 67 U/L (6-35); Albumin Level 2.5 g/dL (3.5-5.1); Alkaline Phosphatase 138 U/L (38-126); Aspartate Amino Transferase 39 U/L (14-36); Bilirubin,Total 0.6 mg/dL (0.2-1.3); Blood Urea Nitrogen 6 mg/dL (7-17); Calcium 7.8 mg/dL (8.4-10.2); Carbon Dioxide > 40 mmol/L (22-30); Chloride 94 mmol/L (98-107); Estimated CRCL calculation 81 ml/min; Estimated Glomerular Filt Rate > 60; Glucose 96 mg/dL (65-110); Potassium 3.5 mmol/L (3.4-5.0); Sodium 138 mmol/L (137-145)
[2023-07-20] MEDS: UMECLIDINIUM BROMIDE 62.5 MCG ELLIPTA 1 PUFF INHALATION (07:11)
[2023-07-20] MEDS: ALBUTEROL SULFATE NEB 2.5 MG/3 ML INH INHALATION ×3 (07:12→20:09)
[2023-07-20] MEDS: BUDESONIDE RESPULE NEB 0.5 MG/2 ML AMP INHALATION ×2 (07:12→20:09)
[2023-07-20 07:19] LABS: Hypochromasia 1+ (NORMAL); Macrocytosis 1+ (NORMAL); Platelet Estimate Adequate (Adequate); Schistocytes None Seen (NORMAL)
[2023-07-20] MEDS: MIDODRINE HCL 2.5 MG TABLET 5 MG PO ×3 (08:42→16:22)
[2023-07-20] MEDS: FLUoxetine HCL 20 MG CAPSULE PO (08:42)
[2023-07-20] MEDS: CALCIUM CARBONATE (TUMS) 500 MG (200 MG ELEMENTAL) PO ×2 (08:42→19:05)
[2023-07-20] MEDS: FOLIC ACID 1 MG TABLET PO (08:42)
[2023-07-20] MEDS: THIAMINE HCL 100 MG TABLET PO (08:43)
[2023-07-20] MEDS: MULTIVITAMINS THERAPEUTIC TAB (*BKC) 1 TABLET PO (08:43)
--- NOTE | 2023-07-20 10:15 | PCPTNOTE ---
Patient refused treatment this session due to pain. Patient rates pain as 10 out of 10 on pain scale in L upper abdomen.
--- NOTE | 2023-07-20 10:17 | PM.IMPN ---
Progress Note: A&P Assessment and Plan (1) Abdominal pain: Qualifiers: Abdominal location: generalized Qualified Code(s): R10.84 - Generalized abdominal pain Code(s): R10.9 - Unspecified abdominal pain Status: Acute Assessment and Plan: Patient with epigastric pain with onset this morning. Consider obstruction/ileus. Consider pancreatitis or gastritis/PUD. Check lipase, KUB. Add Protonix. Tums available as needed. heating pad ordered as well. Lipase normal. KUB no free gas or dilated loops. Monitor (2) Sepsis: Code(s): A41.9 - Sepsis, unspecified organism Status: Acute Assessment and Plan: Sepsis was present on admission with lactic acidosis, tachycardia and hypotension. Procalcitonin level was elevated at 7.2. Probably related to pneumonia and the bacteremia. LFTs elevated which could be from the hypotension and felt less likely cholecystitis. Paracentesis 07/17 showing only 48 WBC. Doubt SBP. Possibly BCx a contaminant. BCx (07/16) growing Staph epidermidis (2of2) sensitive to Vacno MRSA screen 07/16 - negative Paracentesis Cx 07/17 - NGTD BCx (07/18) NGTD Echo 07/20 - EF 60-65% with Grade I diastolic dysfunction. Continue Unasyn and Vanco. (3) Somnolence: Code(s): R40.0 - Somnolence Status: Acute Assessment and Plan: Patient presents with complaints of anxiety. Patient became very somnolent. No focal weakness appreciated on exam. She has not received medications that would explain this. She was on alprazolam as needed at home which was held. Ammonia level 20. Her pCO2 was 74 but her pH was normal to suggest this is more chronic. CT of the head showing no acute findings. UDS positive for benzos that she takes at home. [place] symptoms related to sepsis. She is much improved but still confused (confusion her baseline?). Symptoms resolving. Continue to follow (4) Chronic respiratory failure with hypoxia and hypercapnia: Code(s): J96.11 - Chronic respiratory failure with hypoxia; J96.12 - Chronic respiratory failure with hypercapnia Status: Acute Assessment and Plan: Patient on 3-4 L of oxygen chronically. Patient has chronic CO2 retention. She is refusing her bipap and is pouring out her neb treatments per Respiratory Therapist. There are notes in the chart stating the patient is noncompliant with her Trelegy at home. Given 1 dose of acetazolamide. Encouraged compliance. Continue supplemental O2. Continue scheduled neb treatments (5) Pneumonia: Code(s): J18.9 - Pneumonia, unspecified organism Status: Resolved Assessment and Plan: Chest x-ray reviewed showing left upper lobe and right mid lung airspace disease. Small left pleural effusion noted as well and this was seen on the CT scan. Patient is having symptoms of pneumonia with cough. White count normal. Lactic acid was elevated 3.3 but on repeat after IV fluids, lactic acid normal Procalcitonin was extremely high at 7.2 that is trending down on repeat. Blood cultures as above. Continue neb treatments and current abx. (6) Hypotension: Qualifiers: Hypotension type: hypotension due to hypovolemia Qualified Code(s): I95.89 - Other hypotension; E86.1 - Hypovolemia Code(s): I95.9 - Hypotension, unspecified Status: Acute Assessment and Plan: Patient not on antihypertensive medications. Blood pressure appears to be chronically low possibly related to her cirrhosis. Midodrine added and advanced. BP better. Continue to monitor. Follow. (7) Increased liver enzymes: Code(s): R74.8 - Abnormal levels of other serum enzymes Status: Acute Assessment and Plan: Patient with elevated liver enzymes on admission that were higher than the prior admission. Could be related to hepatic congestion (shock liver) from the hypotension. COVID and viral hepatitis panel negative. Could be related to the underlying cirrho
[2023-07-20] MEDS: PANTOPRAZOLE SODIUM IV 40 MG VIAL IV PUSH (10:47)
[2023-07-20 10:51] LABS: Lipase 51 U/L (23-300)
[2023-07-20 15:34] LABS: Glucose Peritoneal Fluid 115 mg/dL; LDH Peritoneal Fluid 19 U/L (<63); Total Protein Peritoneal Fluid <3.0 g/dL
[2023-07-20] MEDS: MIRTAZAPINE 30 MG TABLET PO (21:54)
[2023-07-20] MEDS: AMOXICILLIN/CLAVULANATE K 875-125 MG TAB 1 TABLET PO (21:54)
[2023-07-20] MEDS: SULFAMETHOXAZOLE/TRIMETHOPRIM 800/160 MG DS TABLET 2 TAB PO (21:54)
[2023-07-21] VITALS (10 sets, daily range): BP systolic 97–108; BP diastolic 57–86; PULSE 88–111; RESP 18–20; TEMP 36.3–37.2; O2SAT 90–100
[2023-07-21 07:19] LABS: Basophils Absolute Auto 0.1 K/mm3 (0.0-0.1); Basophils Percent Auto 0.7 % (0.2-1.2); Eosinophils Absolute Auto 0.2 K/mm3 (0-0.3); Eosinophils Percent Auto 3.2 % (0-4.4); Hematocrit 28.6 % (37.0-47.0); Hemoglobin 8.6 g/dL (12.0-15.0); Immature Granulocyte Absolute 0.04 K/mm3 (0.00-0.031); Immature Granulocyte Percent A 0.5 % (0-0.5); Lymphocytes Absolute Auto 1.01 K/mm3 (0.9-3.2); Lymphocytes Percent Auto 13.4 % (18.3-44.2); Mean Corpuscular HGB Conc 30.1 g/dl (32-36); Mean Corpuscular Hemoglobin 33.9 pg (26-34); Mean Corpuscular Volume 112.6 fl (80-100); Mean Platelet Volume 9.6 fl (7.4-10.4); Monocytes Absolute Auto 0.8 K/mm3 (0.1-0.6); Monocytes Percent Auto 11.1 % (2.6-8.5); Neutrophils Absolute Auto 5.3 K/mm3 (1.3-6.7); Neutrophils Percent Auto 71.1 % (45.5-73.1); Platelet Count Result 261 k/mm3 (150-375); Red Blood Count 2.54 M/mm3 (4.2-5.4); Red Cell Distribution Width 14.9 % (11.5-14.5); White Blood Count 7.5 K/mm3 (4.5-10.0)
[2023-07-21 07:31] LABS: Alanine Aminotransferase 57 U/L (6-35); Albumin Level 2.6 g/dL (3.5-5.1); Alkaline Phosphatase 135 U/L (38-126); Aspartate Amino Transferase 39 U/L (14-36); Bilirubin,Total 0.6 mg/dL (0.2-1.3); Blood Urea Nitrogen 7 mg/dL (7-17); Carbon Dioxide > 40 mmol/L (22-30); Chloride 93 mmol/L (98-107); Estimated CRCL calculation 77 ml/min; Estimated Glomerular Filt Rate > 60; Glucose 77 mg/dL (65-110); Magnesium 2.2 mg/dL (1.6-2.3); Potassium 3.8 mmol/L (3.4-5.0); Sodium 138 mmol/L (137-145)
[2023-07-21 08:24] LABS: Hypochromasia 2+ (NORMAL); Platelet Estimate Adequate (Adequate)
[2023-07-21 08:25] LABS: Macrocytosis 1+ (NORMAL); Schistocytes None Seen (NORMAL)
[2023-07-21] MEDS: BUDESONIDE RESPULE NEB 0.5 MG/2 ML AMP INHALATION ×2 (08:29→21:17)
[2023-07-21] MEDS: ALBUTEROL SULFATE NEB 2.5 MG/3 ML INH INHALATION ×2 (08:29→21:17)
[2023-07-21] MEDS: UMECLIDINIUM BROMIDE 62.5 MCG ELLIPTA 1 PUFF INHALATION (08:29)
[2023-07-21] MEDS: ACETAMINOPHEN 325 MG TABLET PO ×2 (08:49→15:44)
[2023-07-21] MEDS: AMOXICILLIN/CLAVULANATE K 875-125 MG TAB 1 TABLET PO ×2 (08:52→20:49)
[2023-07-21] MEDS: FOLIC ACID 1 MG TABLET PO (08:52)
[2023-07-21] MEDS: MULTIVITAMINS THERAPEUTIC TAB (*BKC) 1 TABLET PO (08:52)
[2023-07-21] MEDS: THIAMINE HCL 100 MG TABLET PO (08:52)
[2023-07-21] MEDS: FLUoxetine HCL 20 MG CAPSULE PO (08:53)
[2023-07-21] MEDS: PANTOPRAZOLE SODIUM IV 40 MG VIAL IV PUSH (08:53)
[2023-07-21] MEDS: SULFAMETHOXAZOLE/TRIMETHOPRIM 800/160 MG DS TABLET 2 TAB PO ×2 (08:53→20:49)
[2023-07-21] MEDS: ALPRAZolam (*CRX) 0.25 MG TABLET PO (08:56)
[2023-07-21] MEDS: MIDODRINE HCL 2.5 MG TABLET 5 MG PO ×3 (08:56→17:11)
--- NOTE | 2023-07-21 11:24 | PCNFU ---
Nutrition Follow-Up Complete: Moderate protein calorie malnutrition related to inadequate energy intake as evidenced by low BMI of 15.1, NFPE findings for subcutaneous fat loss and muscle wasting, and pt history of poor po intake. Goal:PO intake 50% or greater for meals Pt current nutrition is Heart healthy, Ensure Enlive BID. Nutrition recommendation: continue with current plan of care Last recorded weight is 39 kg - up 2kg from admission. Bowel Motility: +BM 07/20 Labs Reviewed: Hgb:8.6, HCT:28.6, Alb:2.6, Cr:0.4 Meds Noted: remeron Skin: no skin issues noted Additional Notes: Pt continues on a heart healthy diet, intake remains poor to fair at 25-50% of meals, Ensure Enlive ordered BID and at bedside - pt consumed this morning. Continue to encourage good po intake. Monitor intake, wt, labs. Follow up in 5 days.
[2023-07-21] MEDS: CALCIUM CARBONATE (TUMS) 500 MG (200 MG ELEMENTAL) PO (15:45)
--- NOTE | 2023-07-21 16:36 | PM.IMPN ---
Progress Note: A&P Assessment and Plan (1) Abdominal pain: Qualifiers: Abdominal location: generalized Qualified Code(s): R10.84 - Generalized abdominal pain Code(s): R10.9 - Unspecified abdominal pain Status: Acute Assessment and Plan: Patient with persistent epigastric pain. Lipase normal. LFTs improving. Continue Protonix. Tums available as needed. Heating pad ordered as well. Monitor for now (2) Sepsis: Code(s): A41.9 - Sepsis, unspecified organism Status: Acute Assessment and Plan: Sepsis was present on admission with lactic acidosis, tachycardia and hypotension. Procalcitonin level was elevated at 7.2. Probably related to pneumonia and the bacteremia. LFTs elevated which could be from the hypotension and felt less likely cholecystitis. Paracentesis 07/17 showing only 48 WBC. Doubt SBP. Possibly BCx a contaminant. BCx (07/16) growing Staph epidermidis (2of2) sensitive to Vacno MRSA screen 07/16 - negative Paracentesis Cx 07/17 - NGTD BCx (07/18) NGTD Echo 07/20 - EF 60-65% with Grade I diastolic dysfunction. Clinically much improved. Treated with Unasyn and Vanco. Abx have been de-escalated to Bactrim DS and Augmentin. Okay for discharge; awaiting placement (3) Somnolence: Code(s): R40.0 - Somnolence Status: Acute Assessment and Plan: Patient presents with complaints of anxiety. Patient became very somnolent. No focal weakness appreciated on exam. She has not received medications that would explain this. She was on alprazolam as needed at home which was held. Ammonia level 20. Her pCO2 was 74 but her pH was normal to suggest this is more chronic. CT of the head showing no acute findings. UDS positive for benzos that she takes at home. [place] symptoms related to sepsis. She is much improved but still confused (confusion her baseline?). Symptoms resolving. Continue to follow (4) Chronic respiratory failure with hypoxia and hypercapnia: Code(s): J96.11 - Chronic respiratory failure with hypoxia; J96.12 - Chronic respiratory failure with hypercapnia Status: Acute Assessment and Plan: Patient on 3-4 L of oxygen chronically. Patient has chronic CO2 retention. She is refusing her bipap and is dumping out her neb treatments per Respiratory Therapist. There are notes in the chart stating the patient is noncompliant with her Trelegy at home. Given 1 dose of acetazolamide early on. Encouraged compliance with treatment. Continue supplemental O2. Continue scheduled neb treatments (5) Pneumonia: Code(s): J18.9 - Pneumonia, unspecified organism Status: Resolved Assessment and Plan: Chest x-ray reviewed showing left upper lobe and right mid lung airspace disease. Small left pleural effusion noted as well and this was seen on the CT scan. Patient is having symptoms of pneumonia with cough. White count normal. Lactic acid was elevated 3.3 but on repeat after IV fluids, lactic acid normal Procalcitonin was extremely high at 7.2 that is trending down on repeat. Blood cultures as above. Continue neb treatments and current abx. (6) Hypotension: Qualifiers: Hypotension type: hypotension due to hypovolemia Qualified Code(s): I95.89 - Other hypotension; E86.1 - Hypovolemia Code(s): I95.9 - Hypotension, unspecified Status: Acute Assessment and Plan: Patient not on antihypertensive medications. Blood pressure appears to be chronically low possibly related to her cirrhosis. Midodrine added and advanced. BP better. Continue to monitor. Follow. (7) Increased liver enzymes: Code(s): R74.8 - Abnormal levels of other serum enzymes Status: Acute Assessment and Plan: Patient with elevated liver enzymes on admission that were higher than the prior admission. Could be related to hepatic congestion (shock liver) from the hypotension. COVID and viral hepatitis panel negative. Coul
[2023-07-21 18:53] LABS: Amylase Peritoneal Fluid <10 U/L
[2023-07-21] MEDS: MIRTAZAPINE 30 MG TABLET PO (20:49)
[2023-07-21] MEDS: ALBUTEROL SULFATE (*SP) AEROSOL 1 PUFF 2 PUFF INHALATION (22:33)
[2023-07-22] VITALS (10 sets, daily range): BP systolic 103–109; BP diastolic 63–70; PULSE 95–113; RESP 18–20; TEMP 36.2–36.6; O2SAT 91–99
[2023-07-22] MEDS: BUDESONIDE RESPULE NEB 0.5 MG/2 ML AMP INHALATION ×2 (07:58→20:40)
[2023-07-22] MEDS: ALBUTEROL SULFATE NEB 2.5 MG/3 ML INH INHALATION ×3 (07:58→20:40)
[2023-07-22] MEDS: UMECLIDINIUM BROMIDE 62.5 MCG ELLIPTA 1 PUFF INHALATION (08:20)
[2023-07-22] MEDS: FOLIC ACID 1 MG TABLET PO (09:05)
[2023-07-22] MEDS: SULFAMETHOXAZOLE/TRIMETHOPRIM 800/160 MG DS TABLET 2 TAB PO ×2 (09:05→20:55)
[2023-07-22] MEDS: AMOXICILLIN/CLAVULANATE K 875-125 MG TAB 1 TABLET PO ×2 (09:05→20:55)
[2023-07-22] MEDS: FLUoxetine HCL 20 MG CAPSULE PO (09:05)
[2023-07-22] MEDS: THIAMINE HCL 100 MG TABLET PO (09:05)
[2023-07-22] MEDS: MIDODRINE HCL 2.5 MG TABLET 5 MG PO ×3 (09:05→17:10)
[2023-07-22] MEDS: MULTIVITAMINS THERAPEUTIC TAB (*BKC) 1 TABLET PO (09:05)
[2023-07-22] MEDS: PANTOPRAZOLE SODIUM IV 40 MG VIAL IV PUSH (09:15)
[2023-07-22] MEDS: ACETAMINOPHEN 325 MG TABLET PO (09:15)
--- NOTE | 2023-07-22 16:09 | P.PNIM_ITS ---
Progress Note: A&P Assessment and Plan (1) Abdominal pain: Qualifiers: Abdominal location: generalized Qualified Code(s): R10.84 - Generalized abdominal pain Code(s): R10.9 - Unspecified abdominal pain Status: Acute Assessment and Plan: Patient with persistent epigastric pain. Lipase normal. LFTs improving. Continue Protonix. Tums available as needed. Heating pad ordered as well. Monitor for now (2) Sepsis: Code(s): A41.9 - Sepsis, unspecified organism Status: Acute Assessment and Plan: Sepsis was present on admission with lactic acidosis, tachycardia and hypotension. Procalcitonin level was elevated at 7.2. Probably related to pneumonia and the bacteremia. LFTs elevated which could be from the hypotension and felt less likely cholecystitis. Paracentesis 07/17 showing only 48 WBC. Doubt SBP. Possibly BCx a contaminant. BCx (07/16) growing Staph epidermidis (2of2) sensitive to Vacno MRSA screen 07/16 - negative Paracentesis Cx 07/17 - NGTD BCx (07/18) NGTD Echo 07/20 - EF 60-65% with Grade I diastolic dysfunction. Clinically much improved. Treated with Unasyn and Vanco. Abx have been de-escalated to Bactrim DS and Augmentin. Okay for discharge; awaiting placement (3) Somnolence: Code(s): R40.0 - Somnolence Status: Acute Assessment and Plan: Patient presents with complaints of anxiety. Patient became very somnolent. No focal weakness appreciated on exam. She has not received medications that would explain this. She was on alprazolam as needed at home which was held. Ammonia level 20. Her pCO2 was 74 but her pH was normal to suggest this is more chronic. CT of the head showing no acute findings. UDS positive for benzos that she takes at home. [place] symptoms related to sepsis. She is much improved but still confused (confusion her baseline?). Symptoms resolving. Continue to follow (4) Chronic respiratory failure with hypoxia and hypercapnia: Code(s): J96.11 - Chronic respiratory failure with hypoxia; J96.12 - Chronic respiratory failure with hypercapnia Status: Acute Assessment and Plan: Patient on 3-4 L of oxygen chronically. Patient has chronic CO2 retention. She is refusing her bipap and is dumping out her neb treatments per Respiratory Therapist. There are notes in the chart stating the patient is noncompliant with her Trelegy at home. Given 1 dose of acetazolamide early on. Encouraged compliance with treatment. Continue supplemental O2. Continue scheduled neb treatments (5) Pneumonia: Code(s): J18.9 - Pneumonia, unspecified organism Status: Resolved Assessment and Plan: Chest x-ray reviewed showing left upper lobe and right mid lung airspace disease. Small left pleural effusion noted as well and this was seen on the CT scan. Patient is having symptoms of pneumonia with cough. White count normal. Lactic acid was elevated 3.3 but on repeat after IV fluids, lactic acid normal Procalcitonin was extremely high at 7.2 that is trending down on repeat. Blood cultures as above. Continue neb treatments and current abx. (6) Hypotension: Qualifiers: Hypotension type: hypotension due to hypovolemia Qualified Code(s): I95.89 - Other hypotension; E86.1 - Hypovolemia Code(s): I95.9 - Hypotension, unspecified Status: Acute Assessment and Plan: Patient not on antihypertensive medications. Blood pressure appears to be chronically low possibly related to her cirrhosis. Midodrine added and advanced. BP better. Continue to monitor. Follow. (7) Increased li
[2023-07-22] MEDS: ALPRAZolam (*CRX) 0.25 MG TABLET PO (20:55)
[2023-07-22] MEDS: MIRTAZAPINE 30 MG TABLET PO (20:55)
--- NOTE | 2023-07-22 21:19 | PC.NURSE ---
medications administered per DEC. xanax administered PRN, alongside with scheduled antibiotics. This RN observed pt swallow each pill, then noticed an orange pill marked [id number] resting in the bed by the patient's foot. Upon googling this pill, it was discovered that the pill discovered was a xanax, but it was not white like the one I had just administered. I double-checked in the pyxis that we do dispense white xanax, the color of the xanax i gave the patient. private equity associate Joseph notified, and together this RN and passport application examiner got permission from patient per policy to look through pt's purse which was sitting on the bed with her. Multiple inhalers were confiscated, as well as two prescription bottles for xanax. One bottle was empty, and the other bottle was found to have 48 pills, including the pill found resting by pt's feet. Controlled substance home medication log sheet filled out by myself and passport application examiner, and medications have been locked away in medication room. Upon removal of medication from room, patient became anxious, and asked if she could have one xanax before we take it away, and also stated she needs a breathing treatment, despite RT administering scheduled neb moments prior. O2 sat 93% on 3L, which is her home setting. Pt reminded she just received both xanax and a neb, and that we removed xanax and inhalers from her room for her own safety, and when she truly needs xanax or her inhalers we will get it for her. frequent rounding initiated.
--- NOTE | 2023-07-22 21:50 | PC.NURSE ---
Jannie (RN) told me that she had found an unknown orange pill by the patients foot. Upon searching the pill number it was discovered that the pill was xannax. Jannie stated that she had given the patient xannax but it was not the same color as the one she had given. Patient was asked by this RN for her permission to do a belongings search to which she agreed. Patients belongings were then gone through by myself and Jannie. Two xannax pill bottles were found in her purse, one empty and one full as well as a few inhalers. Patient was agreeable to letting us take the medications away to be locked up. Medications were then counted by Jannie and myself and placed in the home med finance assistant the med room.
--- NOTE | 2023-07-22 23:00 | PM.EVENT ---
Event Note Event Note Event Note: Nursing staff called to notify me that they found a large bottle of Xanax in the patient's belongings. The patient has been taking extra Xanax while she has been here from her home supply. The patient does have a history of her family bring her medications in to take in addition to what is ordered during hospital stays in the past.
[2023-07-23] VITALS (10 sets, daily range): BP systolic 93–112; BP diastolic 61–68; PULSE 87–107; RESP 16–20; TEMP 36.1–36.8; O2SAT 92–95
[2023-07-23] MEDS: UMECLIDINIUM BROMIDE 62.5 MCG ELLIPTA 1 PUFF INHALATION (07:08)
[2023-07-23] MEDS: ALBUTEROL SULFATE NEB 2.5 MG/3 ML INH INHALATION ×3 (07:09→20:43)
[2023-07-23] MEDS: BUDESONIDE RESPULE NEB 0.5 MG/2 ML AMP INHALATION ×2 (07:09→20:43)
[2023-07-23] MEDS: ALPRAZolam (*CRX) 0.25 MG TABLET PO ×2 (07:38→20:03)
[2023-07-23] MEDS: THIAMINE HCL 100 MG TABLET PO (08:43)
[2023-07-23] MEDS: MULTIVITAMINS THERAPEUTIC TAB (*BKC) 1 TABLET PO (08:43)
[2023-07-23] MEDS: SULFAMETHOXAZOLE/TRIMETHOPRIM 800/160 MG DS TABLET 2 TAB PO ×2 (08:43→19:55)
[2023-07-23] MEDS: AMOXICILLIN/CLAVULANATE K 875-125 MG TAB 1 TABLET PO ×2 (08:44→19:58)
[2023-07-23] MEDS: PANTOPRAZOLE SODIUM IV 40 MG VIAL IV PUSH (08:44)
[2023-07-23] MEDS: FLUoxetine HCL 20 MG CAPSULE PO (08:44)
[2023-07-23] MEDS: FOLIC ACID 1 MG TABLET PO (08:44)
[2023-07-23] MEDS: MIDODRINE HCL 2.5 MG TABLET 5 MG PO ×3 (08:44→17:29)
[2023-07-23 09:39] LABS: Albumin Peritoneal Fluid 0.3 g/dL
[2023-07-23 13:25] LABS: SARS-CoV-2 RNA PCR Negative (Negative)
--- NOTE | 2023-07-23 14:09 | PM.IMPN ---
Progress Note: A&P Assessment and Plan (1) Abdominal pain: Qualifiers: Abdominal location: generalized Qualified Code(s): R10.84 - Generalized abdominal pain Code(s): R10.9 - Unspecified abdominal pain Status: Acute Assessment and Plan: Patient with persistent epigastric pain. Lipase normal. LFTs improving. Continue Protonix. Tums available as needed. Heating pad ordered as well. Monitor for now 07/23: significant distention noted, paracentesis ordered (2) Sepsis: Code(s): A41.9 - Sepsis, unspecified organism Status: Acute Assessment and Plan: Sepsis was present on admission with lactic acidosis, tachycardia and hypotension. Procalcitonin level was elevated at 7.2. Probably related to pneumonia and the bacteremia. LFTs elevated which could be from the hypotension and felt less likely cholecystitis. Paracentesis 07/17 showing only 48 WBC. Doubt SBP. Possibly BCx a contaminant. BCx (07/16) growing Staph epidermidis (2of2) sensitive to Vacno MRSA screen 07/16 - negative Paracentesis Cx 07/17 - NGTD BCx (07/18) NGTD Echo 07/20 - EF 60-65% with Grade I diastolic dysfunction. Clinically much improved. Treated with Unasyn and Vanco. Abx have been de-escalated to Bactrim DS and Augmentin. see above (3) Somnolence: Code(s): R40.0 - Somnolence Status: Acute Assessment and Plan: Patient presents with complaints of anxiety. Patient became very somnolent. No focal weakness appreciated on exam. She has not received medications that would explain this. She was on alprazolam as needed at home which was held. Ammonia level 20. Her pCO2 was 74 but her pH was normal to suggest this is more chronic. CT of the head showing no acute findings. UDS positive for benzos that she takes at home. [place] symptoms related to sepsis. She is much improved but still confused (confusion her baseline?). Symptoms resolving. Continue to follow (4) Chronic respiratory failure with hypoxia and hypercapnia: Code(s): J96.11 - Chronic respiratory failure with hypoxia; J96.12 - Chronic respiratory failure with hypercapnia Status: Acute Assessment and Plan: Patient on 3-4 L of oxygen chronically. Patient has chronic CO2 retention. She is refusing her bipap and is dumping out her neb treatments per Respiratory Therapist. There are notes in the chart stating the patient is noncompliant with her Trelegy at home. Given 1 dose of acetazolamide early on. Encouraged compliance with treatment. Continue supplemental O2. Continue scheduled neb treatments (5) Pneumonia: Code(s): J18.9 - Pneumonia, unspecified organism Status: Resolved Assessment and Plan: Chest x-ray reviewed showing left upper lobe and right mid lung airspace disease. Small left pleural effusion noted as well and this was seen on the CT scan. Patient is having symptoms of pneumonia with cough. White count normal. Lactic acid was elevated 3.3 but on repeat after IV fluids, lactic acid normal Procalcitonin was extremely high at 7.2 that is trending down on repeat. Blood cultures as above. Continue neb treatments and current abx. (6) Hypotension: Qualifiers: Hypotension type: hypotension due to hypovolemia Qualified Code(s): I95.89 - Other hypotension; E86.1 - Hypovolemia Code(s): I95.9 - Hypotension, unspecified Status: Acute Assessment and Plan: Patient not on antihypertensive medications. Blood pressure appears to be chronically low possibly related to her cirrhosis. Midodrine added and advanced. BP better. Continue to monitor. Follow. (7) Increased liver enzymes: Code(s): R74.8 - Abnormal levels of other serum enzymes Status: Acute Assessment and Plan: Patient with elevated liver enzymes on admission that were higher than the prior admission. Could be related to hepatic congestion (shock liver) from the hypotension. COVID and viral
--- NOTE | 2023-07-23 15:30 | PCPTNOTE ---
The patient treatment was not able to be completed this afternoon due to patient out of room for paracentesis. Will plan to continue treatment per plan of care.
[2023-07-23] MEDS: MIRTAZAPINE 30 MG TABLET PO (19:58)
[2023-07-24] VITALS (11 sets, daily range): BP systolic 101–112; BP diastolic 66–68; PULSE 67–104; RESP 14–22; TEMP 35.7–36.7; O2SAT 91–99
[2023-07-24] MEDS: CALCIUM CARBONATE (TUMS) 500 MG (200 MG ELEMENTAL) PO ×2 (06:50→12:42)
[2023-07-24] MEDS: BUDESONIDE RESPULE NEB 0.5 MG/2 ML AMP INHALATION ×2 (07:04→20:15)
[2023-07-24] MEDS: UMECLIDINIUM BROMIDE 62.5 MCG ELLIPTA 1 PUFF INHALATION (07:04)
[2023-07-24] MEDS: ALBUTEROL SULFATE NEB 2.5 MG/3 ML INH INHALATION ×3 (07:04→20:15)
[2023-07-24] MEDS: SULFAMETHOXAZOLE/TRIMETHOPRIM 800/160 MG DS TABLET 2 TAB PO ×2 (08:40→21:39)
[2023-07-24] MEDS: MULTIVITAMINS THERAPEUTIC TAB (*BKC) 1 TABLET PO (08:40)
[2023-07-24] MEDS: THIAMINE HCL 100 MG TABLET PO (08:41)
[2023-07-24] MEDS: AMOXICILLIN/CLAVULANATE K 875-125 MG TAB 1 TABLET PO ×2 (08:41→21:38)
[2023-07-24] MEDS: MIDODRINE HCL 2.5 MG TABLET 5 MG PO ×3 (08:41→18:03)
[2023-07-24] MEDS: ALPRAZolam (*CRX) 0.25 MG TABLET PO (08:41)
[2023-07-24] MEDS: ACETAMINOPHEN 325 MG TABLET PO (08:41)
[2023-07-24] MEDS: FOLIC ACID 1 MG TABLET PO (08:41)
[2023-07-24] MEDS: FLUoxetine HCL 20 MG CAPSULE PO (08:41)
[2023-07-24] MEDS: PANTOPRAZOLE SODIUM IV 40 MG VIAL IV PUSH (08:45)
--- NOTE | 2023-07-24 11:26 | P.DS_ITS ---
DS: Admitting Diagnosis Discharge Date 07/24/23 Admitting Diagnosis weakness DS: Discharge Diagnosis Discharge Diagnosis (1) Abdominal pain: Qualifiers: Abdominal location: generalized Qualified Code(s): R10.84 - Generalized abdominal pain Code(s): R10.9 - Unspecified abdominal pain Status: Acute Assessment and Plan: Patient with persistent epigastric pain. Lipase normal. LFTs improving. Continue Protonix. Tums available as needed. Heating pad ordered as well. Monitor for now 07/23: significant distention noted, paracentesis ordered (2) Sepsis: Code(s): A41.9 - Sepsis, unspecified organism Status: Acute Assessment and Plan: Sepsis was present on admission with lactic acidosis, tachycardia and hypotension. Procalcitonin level was elevated at 7.2. Probably related to pneumonia and the bacteremia. LFTs elevated which could be from the hypotension and felt less likely cholecystitis. Paracentesis 07/17 showing only 48 WBC. Doubt SBP. Possibly BCx a contaminant. BCx (07/16) growing Staph epidermidis (2of2) sensitive to Vacno MRSA screen 07/16 - negative Paracentesis Cx 07/17 - NGTD BCx (07/18) NGTD Echo 07/20 - EF 60-65% with Grade I diastolic dysfunction. Clinically much improved. Treated with Unasyn and Vanco. Abx have been de-escalated to Bactrim DS and Augmentin. see above (3) Somnolence: Code(s): R40.0 - Somnolence Status: Acute Assessment and Plan: Patient presents with complaints of anxiety. Patient became very somnolent. No focal weakness appreciated on exam. She has not received medications that would explain this. She was on alprazolam as needed at home which was held. Ammonia level 20. Her pCO2 was 74 but her pH was normal to suggest this is more chronic. CT of the head showing no acute findings. UDS positive for benzos that she takes at home. Timbo symptoms related to sepsis. She is much improved but still confused (confusion her baseline?). Symptoms resolving. Continue to follow (4) Chronic respiratory failure with hypoxia and hypercapnia: Code(s): J96.11 - Chronic respiratory failure with hypoxia; J96.12 - Chronic respiratory failure with hypercapnia Status: Acute Assessment and Plan: Patient on 3-4 L of oxygen chronically. Patient has chronic CO2 retention. She is refusing her bipap and is dumping out her neb treatments per Respiratory Therapist. There are notes in the chart stating the patient is noncompliant with her Trelegy at home. Given 1 dose of acetazolamide early on. Encouraged compliance with treatment. Continue supplemental O2. Continue scheduled neb treatments (5) Pneumonia: Code(s): J18.9 - Pneumonia, unspecified organism Status: Resolved Assessment and Plan: Chest x-ray reviewed showing left upper lobe and right mid lung airspace disease. Small left pleural effusion noted as well and this was seen on the CT scan. Patient is having symptoms of pneumonia with cough. White count normal. Lactic acid was elevated 3.3 but on repeat after IV fluids, lactic acid normal Procalcitonin was extremely high at 7.2 that is trending down on repeat. Blood cultures as above. Continue neb treatments and current abx. (6) Hypotension: Qualifiers: Hypotension type: hypotension due to hypovolemia Qualified Code(s): I95.89 - Other hypotension; E86.1 - Hypovolemia Code(s): I95.9 - Hypotension, unspecified Status: Acute Assessment and Plan: Patient not on antihypertensive medications. Blood pressure appears to be chronically low p
[2023-07-24] MEDS: MIRTAZAPINE 30 MG TABLET PO (21:39)
== END 2023-07-24 22:50 | DRG 871 ==
LOC: ANHED 06:35 → ANH3MEDSUR 07:50
PROVIDERS: Internal Medicine; Admitting Provider Internal Medicine; Emergency Provider Emergency Medicine; PCP Family Medicine; Visit Provider Student in an Organized Health Care Education/Training Program
DX: A41.9 Sepsis, unspecified organism (principal); E43 Unspecified severe protein-calorie malnutrition; J18.9 Pneumonia, unspecified organism; K72.00 Acute and subacute hepatic failure without coma; J96.11 Chronic respiratory failure with hypoxia; J96.12 Chronic respiratory failure with hypercapnia; Z68.1 Body mass index [BMI] 19.9 or less, adult; E87.1 Hypo-osmolality and hyponatremia; J44.0 Chronic obstructive pulmonary disease with (acute) lower respiratory infection; J44.1 Chronic obstructive pulmonary disease with (acute) exacerbation; Z20.822 Contact with and (suspected) exposure to COVID-19; I95.89 Other hypotension; E86.1 Hypovolemia; F41.1 Generalized anxiety disorder; B95.7 Other staphylococcus as the cause of diseases classified elsewhere; R74.8 Abnormal levels of other serum enzymes; K74.60 Unspecified cirrhosis of liver; K76.82 Hepatic encephalopathy; K80.20 Calculus of gallbladder without cholecystitis without obstruction; K21.9 Gastro-esophageal reflux disease without esophagitis; M81.0 Age-related osteoporosis without current pathological fracture; D64.9 Anemia, unspecified; Z99.81 Dependence on supplemental oxygen; Z87.891 Personal history of nicotine dependence; Z86.16 Personal history of COVID-19
CPT/HCPCS: 36415; 36600; 49083; 70450; 71045; 74019; 74177; 76705; 80053; 80074; 80202; 80307; 81003; 82042; 82140; 82150; 82375; 82805; 82945; 83050; 83605; 83615; 83690; 83735; 83880; 84100; 84145; 84157; 84484; 85025; 85610; 85730; 87040; 87070; 87075; 87077; 87081; 87186; 87205; 87635; 87637; 88104; 88108; 88305; 89051; 93005; 93306; 94640; 96361; 96365; 96366; 96367; 96375; 96376; 97110; 97116; 97161; 97165; 97530; 97535; 99285; A9270; C9113; G0378; J0295; J0456; J0696; J1120; J3370; J7030; J7040; Q9967

== ENCOUNTER 2023-08-19 14:04 | Inpatient (IN) | payer MEDICARE, MEDICAID, SELFPAY ==
[2023-08-19] VITALS (70 sets, daily range): BP systolic 77–139; BP diastolic 41–104; PULSE 90–132; RESP 12–33; TEMP 36.2–36.5; O2SAT 83–100; BMI 15.0
--- NOTE | ~2023-08-19 | XR_ITS ---
EXAMINATION: XR chest 1V portable DATE: 08/21/2023 05:46 INDICATION: Acute respiratory failure. Chronic obstructive pulmonary disease exacerbation. TECHNIQUE: A single frontal view of the chest was obtained. COMPARISON: Chest single view 08/20/2023 FINDINGS: There are lucencies in the lungs with architectural distortion, consistent with emphysema. There are staple lines in the upper lungs. There are patchy airspace opacities in all lung zones bila terally. There are small pleural effusions. No pneumothorax. The heart size is normal. The endotrache al tube tip is 4.2 cm above the mario. The nasogastric tube tip is in the stomach. A right internal jugular central venous catheter is seen with tip at the superior cavoatrial junction. There is an old healed left rib fracture. IMPRESSION: 1. Stable diffuse lung disease, consistent with atelectasis/scarring versus pneumonia superimposed on severe emphysema. 2. Stable small pleural effusions. Reviewed, dictated and finalized at location E. IMPRESSION: 1. Stable diffuse lung disease, consistent with atelectasis/scarring versus pne umonia superimposed on severe emphysema. 2. Stable small pleural effusions.
--- NOTE | ~2023-08-19 | XR_ITS ---
EXAMINATION: XR chest 1V portable INDICATION: Respiratory failure TECHNIQUE: Portable AP chest at 0536 hours COMPARISON: 08/21/2023 FINDINGS: The endotracheal tube ends approximately 4.2 cm above the mario. The nasogastric tube is f ollowed as far as the stomach. Its tip is beyond the inferior margin of the radiograph. A right inter nal jugular catheter ends with its tip in the distal superior vena cava. There are surgical staple li mejia in the lung apices and right hilar region. Patchy airspace opacities persist in all lung zones wi thout significant change. No pleural effusion or pneumothorax. The cardiomediastinal silhouette is st able. IMPRESSION: 1. Stable diffuse lung disease, consistent with pneumonia, atelectasis, and scarring on a background of emphysema.. Reviewed, dictated and finalized at location F. IMPRESSION: 1. Stable diffuse lung disease, consistent with pneumonia, atelectasis, and sca rring on a background of emphysema..
--- NOTE | ~2023-08-19 | XR_ITS ---
EXAMINATION: XR chest 1V portable INDICATION: Acute respiratory TECHNIQUE: Portable AP chest at 0519 hours COMPARISON: 08/22/2023 FINDINGS: The endotracheal tube has been removed. The nasogastric tube is followed as far as the stom ach. Its tip is beyond the inferior margin of the radiograph. A right internal jugular central venous catheter ends with its tip in the distal superior vena cava. Surgical staple lines are again noted i n the lung apices and right hilar region. Patchy bilateral airspace opacities persist with slight imp rovement. No pleural effusion or pneumothorax. The cardiomediastinal silhouette is stable. IMPRESSION: 1. Diffuse lung disease with interval improvement, consistent with pneumonia, atelectasis, and scarri ng on a background of emphysema. 2. Endotracheal tube removal. Reviewed, dictated and finalized at location F. OMER SERVICE COORDINATOR IMPRESSION: 1. Diffuse lung disease with interval improvement, consistent with pneumonia, a telectasis, and scarring on a background of emphysema. 2. Endotracheal tube removal.
--- NOTE | ~2023-08-19 | XR_ITS ---
EXAMINATION: XR chest 1V portable DATE: 08/20/2023 05:21 INDICATION: Intubation. TECHNIQUE: A single frontal view of the chest was obtained. COMPARISON: Chest single view 08/19/2023, chest CT 08/19/2023 FINDINGS: There are staple lines in the lungs bilaterally. There are lucencies in the lungs, consiste nt with emphysema. There are coarse interstitial opacities and mild airspace opacities in all lung zo mejia bilaterally. There are small pleural effusions. No pneumothorax. The heart size is normal. The en dotracheal tube tip is 3.5 cm above the mario. The nasogastric tube tip is in the stomach. A right i nternal jugular central venous catheter is seen with tip in the superior vena cava. IMPRESSION: 1. Stable diffuse lung disease, consistent with atelectasis/scarring versus pneumonia superimposed on severe emphysema. 2. Small pleural effusions. Reviewed, dictated and finalized at location E. IMPRESSION: 1. Stable diffuse lung disease, consistent with atelectasis/scarring versus pne umonia superimposed on severe emphysema. 2. Small pleural effusions.
--- NOTE | ~2023-08-19 | XR_ITS ---
EXAMINATION: XR chest ET placement DATE: 08/24/2023 09:28 INDICATION: Intubation TECHNIQUE: frontal view of the chest was obtained. COMPARISON: Chest radiograph dated 08/24/2023 FINDINGS: Endotracheal tube tip 4.1 cm above the mario. Right internal jugular central venous catheter tip at the caudal superior vena cava. Nasogastric tube extends below the left hemidiaphragm with distal tip collimated off the study. Scattered increased lucencies and architectural distortion consistent with emphysema with bullous israel nges most prominent at the left lower lung zone. Suture lines likely for volume reduction surgery at the bilateral upper lung zones. Slight improvement in diffuse bilateral interstitial and patchy airsp anitha opacities. No pneumothorax. Blunting at the bilateral costophrenic angles consistent with small b ilateral pleural effusions. Heart size is normal. IMPRESSION: 1. Lines and tubes in expected positions. 2. Emphysema with superimposed slight improvement in diffuse bilateral interstitial and airspace opac ities which could represent pulmonary edema and/or pneumonia. 3. Small bilateral pleural effusions. Reviewed, dictated and finalized at location A. NCIAL REPORTING CONSULTANT IMPRESSION: 1. Lines and tubes in expected positions. 2. Emphysema with superimposed slight improvement in diffuse bilateral intersti tial and airspace opacities which could represent pulmonary edema and/or pneumo lisa. 3. Small bilateral pleural effusions.
--- NOTE | ~2023-08-19 | CT_ITS ---
EXAMINATION: CTA chest PE abdomen pel DATE: 08/19/2023 19:59 INDICATION: acute onset dyspnea, tachycardia TECHNIQUE: Computed tomography angiography (CTA) of the chest was performed with 90 mL Omnipaque-350 intravenous contrast timed to evaluate the pulmonary arteries, followed by portal venous phase imagin g of the abdomen and pelvis. Coronal maximum intensity projection 3D-reconstructions were created by the technologist. The dose-length product (DLP) was 334.63 mGy-cm. Automated exposure control and ite rative reconstruction technique were employed. COMPARISON: X-ray chest, same date; CT abdomen pelvis 07/16/2023; CTA chest abdomen pelvis 05/13/2023. FINDINGS: CHEST: Lung parenchyma and airways: Severe emphysematous change and architectural distortion. Large left low er lobe bullae. No focal consolidation. 6 mm nodular opacity in the left upper lobe (axial image 48/1 21). Bilateral upper lung suture lines. Pleura: Small bilateral fluid collections. Thoracic inlet, axillae and chest wall: Endotracheal tube terminating in the midthoracic trachea. Mil d chest wall edema. Thoracic aorta: Normal. Mediastinum: Dilated central pulmonary arteries as can be seen with pulmonary arterial hypertension. Heart and pericardium: Normal. Coronary artery calcifications: Absent. Thoracic bones: No acute osseous finding. Stable severe midthoracic vertebral body compression deform ity. Pulmonary arteries: Study quality: Adequate. No pulmonary emboli detected. ABDOMEN/PELVIS: Liver: Nodular liver border. Biliary/Gallbladder: Gallbladder wall hyperemia. Nonspecific pericholecystic fluid. Gallstones. No bi le duct dilation. Pancreas: No mass or duct dilation. Spleen: Normal. Adrenals:No mass. Kidneys: No suspicious mass, obstructing stone, or hydronephrosis. GI tract: Distal esophageal thickening. Moderate gastric wall edema. NG tube terminating in the stoma ch. No small or large bowel dilation. Normal appendix. Mesentery/Peritoneum: No mass or free air. Moderate volume ascites. Retroperitoneum: No mass. Pelvis: Pelvic organs are within normal limits. Soft Tissues: Moderate body wall edema. Abdominopelvic bones: No acute osseous finding. Uncomplicated right femoral neck fixation screws. IMPRESSION: No CT evidence of acute pulmonary embolus. Esophagitis/gastritis. 6 cm left upper lobe pulmonary nodule. Recommend CT follow-up in 6-12 months. Small bilateral pleural effusions. Possible cirrhosis, with moderate ascites. Cholecystitis, with gallbladder wall hyperemia. Correlate with pain and biliary labs. Moderate body wall edema. Reviewed, dictated and finalized at location K.
--- NOTE | ~2023-08-19 | XR_ITS ---
XR chest 1V portable 08/19/2023 15:03 Indication: Dyspnea. Emphysema. Procedure: AP portable chest Comparison: Comparison to multiple prior studies sequentially, with oldest reviewed study dated 03/2023. Findings: There are surgical changes of the upper lobes. Cardiomegaly. Patchy bilateral airspace dise ase of the mid and upper lungs, compatible with pneumonia. Possible small effusion. No pneumothorax i dentified. The lungs are hyperinflated which is consistent with, but not diagnostic of chronic obstructive pulmo nary disease. Impression: 1: Patchy bilateral airspace disease, compatible with pneumonia. Reviewed, dictated and finalized at location B. Impression: 1: Patchy bilateral airspace disease, compatible with pneumonia.
--- NOTE | ~2023-08-19 | XR_ITS ---
Portable chest x-ray Comparison: 08/24/2023 Clinical History: Respiratory failure Findings: Endotracheal tube and NG tube are in satisfactory positions. Hazy and interstitial pulmona ry disease diffusely is similar to prior exam. Underlying COPD present. Cardiomediastinal silhouette is stable. Bones and soft tissues are unremarkable. Impression: Extensive hazy and interstitial pulmonary disease, with underlying COPD, stable from prior exam. Support tubes, as above. Reviewed, dictated and finalized at location . PROCESSING MECHANIC Impression: Extensive hazy and interstitial pulmonary disease, with underlying COPD, stable from prior exam. Support tubes, as above.
--- NOTE | ~2023-08-19 | XR_ITS ---
EXAMINATION: XR chest ET placement Exam Date/Time: 08/19/2023 17:30 CDT HISTORY: intubated Comparison: 08/19/2023 at 2:51 PM. RESULT: Lines, tubes, and devices: Endotracheal tube terminating 4.5 cm above the mario. NG tube, tip and s jayshree port project over the stomach. Multiple suture lines in the upper lungs Lungs and pleura: Slightly increased right midlung and increasing left upper lung interstitial opaci ties. Severe emphysematous change, multiple bullae, and architectural distortion. Mild bilateral cost ophrenic angle blunting. Cardiomediastinal silhouette: Stable. Other: No acute osseous or upper abdominal finding. IMPRESSION: Endotracheal and NG tubes in good position. Worsening interstitial edema, possibly overlying changes of infection. Possible small bilateral effusions versus chronic pleural scarring. Reviewed, dictated and finalized at location K. IMPRESSION: Endotracheal and NG tubes in good position. Worsening interstitial edema, possi giovanny overlying changes of infection. Possible small bilateral effusions versus c hronic pleural scarring.
--- NOTE | ~2023-08-19 | XR_ITS ---
EXAMINATION: XR chest port-a-cath/central Exam Date/Time: 08/19/2023 18:20 CDT HISTORY: CENTRAL LINE PLACEMENT CONFIRMATION Comparison: Same date at 5:34 PM. RESULT: Lines, tubes, and devices: New right IJ central line terminating in the mid SVC. NG and endotracheal tubes in stable and good position. Lungs and pleura: No pneumothorax. Unchanged pulmonary opacities. Cardiomediastinal silhouette: Stable. Other: No acute osseous or upper abdominal finding. IMPRESSION: Right IJ central venous line, in good position. Unchanged pulmonary opacities. Reviewed, dictated and finalized at location K.
--- NOTE | ~2023-08-19 | XR_ITS ---
Portable chest x-ray Comparison: 08/23/2023 Clinical History: Respiratory failure, COPD Findings: NG tube and right-sided central venous line are in satisfactory positions. There is extens geraldo hazy and interstitial pulmonary disease. Questionable minimal pleural effusions. Cardiomediastin al silhouette is stable. Bones and soft tissues are unremarkable. Impression: Extensive hazy and interstitial pulmonary disease. Correlate for pulmonary edema, pneumonia, and/or c hronic interstitial change/COPD. Questionable minimal pleural effusions. Support tubes, as above. Reviewed, dictated and finalized at location . [employer] Impression: Extensive hazy and interstitial pulmonary disease. Correlate for pulmonary jaime a, pneumonia, and/or chronic interstitial change/COPD. Questionable minimal pleural effusions. Support tubes, as above.
--- NOTE | ~2023-08-19 | XR_ITS ---
EXAM: XR abdomen gastric tube insert DATE: 08/19/2023 17:38 HISTORY: NG tube placement . COMPARISON: None available. FINDINGS: NG tube, tip and side port project over the expected location of the stomach Scarring and bullae in the lung bases. Small bilateral effusions versus pleural scarring. Normal bowel gas pattern . Enlarged liver. No abnormal abdominal calcification. Partially visualized fixation screws in the ri ght femoral neck. Sanchez catheter or temperature probe over the midline pelvis. IMPRESSION: NG tube, in good position. Hepatomegaly. Reviewed, dictated and finalized at location K.
--- NOTE | 2023-08-19 14:06 | ECG_ITS ---
Measurements Intervals [place] Rate: 118 P: 88 MN: 112 QRS: -13 QRSD: 90 T: 89 QT: 355 QTc: 499 Interpretive Statements SINUS TACHYCARDIA WITH SHORT MN INTERVAL LOW QRS VOLTAGE IN LIMB LEADS ANTEROLATERAL INFARCT, AGE INDETERMINATE BORDERLINE T WAVE ABNORMALITY- HIGH LATERAL LEADS BASELINE ARTIFACT- I, II, III, AVR, AVL, AVF, V1-V6 ABNORMAL ECG COMPARED TO ECG 07/16/2023 01:28:27 MYOCARDIAL INFARCT FINDING NOW PRESENT Electronically Signed On 08-19-2023 14:24:40 CDT by Quinton Bell D.O.
--- NOTE | 2023-08-19 14:18 | ECG_ITS ---
Measurements Intervals [place] Rate: 119 P: 87 NV: 116 QRS: -1 QRSD: 87 T: 95 QT: 346 QTc: 488 Interpretive Statements SINUS TACHYCARDIA WITH SHORT NV INTERVAL LOW QRS VOLTAGE IN LIMB LEADS MINIMAL Q WAVES- INFERIOR LEADS ANTEROLATERAL INFARCT, AGE INDETERMINATE BORDERLINE ST-T WAVE ABNORMALITY- HIGH LATERAL LEADS BASELINE ARTIFACT- I, AVL, V1-V6 ABNORMAL ECG COMPARED TO ECG 08/19/2023 14:10:14 NO SIGNIFICANT CHANGES Electronically Signed On 08-20-2023 8:15:28 CDT by Quinton Bell D.O.
--- NOTE | 2023-08-19 14:37 | ED.ANXIETY ---
HPI - Anxiety General Chief Complaint: Anxiety <Lizett Jung PA-C - Last Filed: 08/20/23 09:12> Stated Complaint: anxiety attack causing sob <Lizett Jung PA-C - Last Filed: 08/20/23 09:12> History of Present Illness HPI narrative: 57-year-old female with a history of cirrhosis, COPD on 3 L nasal cannula at baseline, chronic alcoholic hepatitis, CHF reports for evaluation for acute onset dyspnea x3 hours. Patient states she was sitting down when she became short of breath. She states she feels anxious and like her heart is beating out of her chest. She reports an intermittent productive cough which is unchanged from her baseline. Denies chest pain, fever, abdominal pain, nausea or vomiting, dysuria or hematuria, urinary frequency or urgency, BLE, history of VTE. She has not required increased oxygen demand. She lives at home with her son who helps take care of her. Patient states she normally drinks 2 beers per day for many years . Her last beer was yesterday around 12:00pm. Of note, patient was discharged from [facility] yesterday after admission for COPD exacerbation, 08/18/2023. She does arrive with her discharge paperwork which noted that she had Trelegy Ellipta added to her medication list in addition to her alprazolam, fluoxetine, midodrine and albuterol. Discharge summary does note that the patient was intubated and received a course of antibiotics in the ICU, then extubated as her breathing improved. She was also recommended to follow-up with the pulmonology clinic as an outpatient to see if she is a candidate for a BiPAP machine. <Lizett Jung PA-C - Last Filed: 08/20/23 09:12> Related Data Home Medications: Home Medications Medication Instructions Recorded Confirmed fluoxetine 20 mg capsule 40 mg PO DAILY 01/19/23 08/19/23 alprazolam 0.5 mg tablet 0.5 mg PO BID 08/19/23 08/19/23 fluticasone fur. 100 mcg-umeclid 1 inh inhalation DAILY 08/19/23 08/19/23 62.5 mcg-vilant 25 mcg inhalat.powder (Trelegy Ellipta) <Lizett Jung PA-C - Last Filed: 08/20/23 09:12> Allergies/Adverse Reactions: Allergies Allergy/AdvReac Type Severity Reaction Status Date / Time No Known Allergies Allergy Verified 07/16/23 01:28 <Lizett Jung PA-C - Last Filed: 08/20/23 09:12> Review of Systems Review of Systems: CONSTITUTIONAL: Denies fever, chills EYES: Denies visual changes, redness, or discharge. ENT: Denies rhinorrhea, congestion, sore throat, or otalgia. CARDIOVASCULAR: See HPI RESPIRATORY: See HPI GASTROINTESTINAL: Denies abdominal pain, nausea, vomiting, or diarrhea. GENITOURINARY: Denies dysuria or hematuria. SKIN: Denies rash or itching. MUSCULOSKELETAL: Denies back pain, joint pain, or myalgia. NEUROLOGIC: Denies headache, numbness, dizziness, or weakness. PSYCHIATRIC: Denies anxiety or depression. <Lizett Jung PA-C - Last Filed: 08/20/23 09:12> [facility] Past Medical History Medical History: Medical History Abnormal EKG EKG has previously shown ST elevation which appears to be early repolarization. Alcohol abuse Anxiety Asthma B12 deficiency anemia Chronic anemia Chronic hyponatremia Chronic respiratory failure with hypoxia and hypercapnia On Trelegy unit at nighttime. However the patient is noncompliant 3 L nasal cannula during the day. Closed traumatic nondisplaced fracture of proximal end of right humerus Cognitive impairment COPD with emphysema COVID-19 (~11/2022) Fracture of distal phalanx of ring finger Gastroesophageal reflux disease Generalized anxiety disorder with panic attacks Osteoporosis Protein-calorie malnutrition, severe Pulmonary cachexia due to chronic obstructive pulmonary disease Right hand fracture Secondary nonischemic congestive cardiomyopathy With ejection fraction of 40-45%, diastolic dysfunction grade 1, mid inferior wall, mid anterior wall, mid in for septa
[2023-08-19] MEDS: IPRATROPIUM BR 0.02% INH SOLN 0.5 MG/2.5 ML VIAL INHALATION ×3 (14:54→14:55)
[2023-08-19] MEDS: ALBUTEROL SULFATE NEB 2.5 MG/3 ML INH INHALATION ×3 (14:54→14:55)
[2023-08-19] MEDS: methylPREDNISolone SOD SUCC 125 MG VIAL IV PUSH (15:05)
[2023-08-19 15:15] LABS: Alveolar/Arterial O2 Gradient 7.4 mmHg; Base Excess ABG 8.5 mEq/l (+/-2.0); Fractional Inspired Oxygen 34 %; HCO3 ABG 37.6 mEq/l (22.0-26.0); Oxygen Content ABG 15.9 %vol (16.0-22.0); Oxygen Saturation ABG 98.4 % (95.0-100.0); Oxyhemoglobin 97.7 % THb (90.0-100.0); PO2 ABG 141.5 mmHg (80.0-100.0); PO2 FiO2 Ratio Arterial Blood 4.16 %; Total Hemoglobin 11.4 g/dL (12.0-18.0)
[2023-08-19] MEDS: SODIUM CHLORIDE 0.9% IV 1,000 ML 999 ML IV CONT ×3 (15:16→19:25)
[2023-08-19 15:19] LABS: pH ABG 7.288 (7.350-7.450)
[2023-08-19 15:20] LABS: Device NASAL CANNULA; PCO2 ABG 80.3 mmHg (35.0-45.0); Site Drawn LEFT BRACHIAL
[2023-08-19 15:21] LABS: Liters per Minute 3.5 LPM
[2023-08-19 15:40] LABS: Hematocrit 34.2 % (37.0-47.0); Hemoglobin 10.9 g/dL (12.0-15.0); Mean Corpuscular HGB Conc 31.9 g/dl (32-36); Mean Corpuscular Hemoglobin 31.7 pg (26-34); Mean Corpuscular Volume 99.4 fl (80-100); Mean Platelet Volume 8.7 fl (7.4-10.4); Platelet Count Result 570 k/mm3 (150-375); Red Blood Count 3.44 M/mm3 (4.2-5.4); White Blood Count 18.8 K/mm3 (4.5-10.0)
[2023-08-19] MEDS: CEFEPIME 1 GM/NS 50 ML 1 GM/50 ML BAG IVPB (15:50)
[2023-08-19] MEDS: LORazepam INJ (*CRX) 2 MG/ML VIAL 0.5 MG IV PUSH (15:51)
[2023-08-19 15:56] LABS: Alanine Aminotransferase 15 U/L (6-35); Albumin Level 3.8 g/dL (3.5-5.1); Alkaline Phosphatase 65 U/L (38-126); Anion Gap 3 mmol/L (8-16); Aspartate Amino Transferase 46 U/L (14-36); Bilirubin,Total 0.5 mg/dL (0.2-1.3); Blood Urea Nitrogen 9 mg/dL (7-17); Calcium 8.2 mg/dL (8.4-10.2); Carbon Dioxide 35 mmol/L (22-30); Chloride 79 mmol/L (98-107); Estimated CRCL calculation 141 ml/min; Estimated Glomerular Filt Rate > 60; Glucose 122 mg/dL (65-110); Magnesium 1.7 mg/dL (1.6-2.3); Potassium 4.1 mmol/L (3.4-5.0); Sodium 117 mmol/L (137-145)
[2023-08-19 15:58] LABS: INR 0.9; Prothrombin Time 12.5 Seconds (11.1-14.7)
[2023-08-19 15:59] LABS: Partial Thromboplastin Time 31.8 SECONDS (22.3-36.8)
[2023-08-19 16:03] LABS: Band Neutrophils Percent 1 % (0-6); Hypochromasia 1+ (NORMAL); Lymphocytes Absolute Manual 0.37 K/mm3 (1.1-4.5); Monocytes Absolute Manual 0.75 K/mm3 (0.1-0.90); Monocytes Percent Manual 4 % (3-9); Neutrophils Absolute Manual 17.67 K/mm3 (1.7-7.2); Neutrophils Percent Manual 93 % (46-73); Platelet Estimate Increased (Adequate); Schistocytes None Seen (NORMAL); Total Cells Counted 100
[2023-08-19 16:05] LABS: NT Pro B Type Natriuretic Pept 7480 pg/mL (19.9-100)
[2023-08-19 16:22] LABS: Lactic Acid Reflex 1.3 mmol/L (0.7-2.0)
[2023-08-19 17:04] LABS: Appearance Urine Clear (Clear); Bacteria Urine None Seen /hpf; Bilirubin Urine Negative (Negative); Blood Urine Negative (Negative); Color Urine Yellow (Yellow); Glucose Urine UA Negative (Negative); Hyaline Casts Urine Present /lpf; Ketones Urine 1+ mg/dL (Negative); Leukocyte Esterase Ur Negative LEU/UL (Negative); Nitrate Urine Negative (Negative); Protein Urine Trace mg/dL (Negative); RBC Urine 0-2 /hpf (0-2); Specific Grav Ur 1.017 (1.001-1.035); Squamous Epithelial Cell Urine None seen /hpf (Few); Urobilinogen Urine 0.2 mg/dL (<2.0); WBC Urine 0-5 /hpf
[2023-08-19] MEDS: SODIUM CHLORIDE 0.9% IV 1,000 ML 999 ML (17:05)
[2023-08-19 17:09] LABS: Add Urine Microscopic? YES
[2023-08-19] MEDS: ETOMIDATE 20 MG/10 ML AMPUL 10 MG IV PUSH (17:19)
[2023-08-19] MEDS: SUCCINYLCHOLINE CHLORIDE 20 MG/ML 10 ML VIAL 100 MG IV PUSH (17:19)
[2023-08-19 17:43] LABS: MRSA (PCR) NOT DETECTED (NOT DETECTE)
[2023-08-19] MEDS: FENTANYL 2,500MCG/NS250ML(*CRX 2,500 MCG/250 ML BAG IV CONT (17:44)
[2023-08-19] MEDS: MIDAZOLAM HCL (*CRX) 2 MG/2 ML VIAL IV PUSH ×3 (17:48→18:24)
[2023-08-19 17:52] LABS: Sodium Urine Random 90 meq/L
[2023-08-19] MEDS: MIDAZOLAM 100MG/NS 100ML(*CRX) 100 MG/100 ML BAG IV CONT (17:55)
[2023-08-19] MEDS: levoFLOXacin 750 MG/D5W 150 ML 750 MG/150 ML BAG 100 MG IVPB (18:50)
[2023-08-19 18:56] LABS: Anion Gap 2 mmol/L (8-16); Blood Urea Nitrogen 7 mg/dL (7-17); Calcium 6.8 mg/dL (8.4-10.2); Carbon Dioxide 29 mmol/L (22-30); Chloride 91 mmol/L (98-107); Estimated CRCL calculation 141 ml/min; Estimated Glomerular Filt Rate > 60; Glucose 125 mg/dL (65-110); Potassium 3.7 mmol/L (3.4-5.0); Sodium 122 mmol/L (137-145)
[2023-08-19] MEDS: VANCOMYCIN 1,000 MG/NS 250 ML 1,000 MG/250 ML BAG 250 MG IVPB (19:00)
--- NOTE | 2023-08-19 19:00 | PC.NURSE ---
Assumed care of pt. at this time. Report from RAHUL Saha. Pt. has a 7.[address] measuring 21 at the lip.
--- NOTE | 2023-08-19 19:16 | PC.NURSE ---
1836 verbal order for 1L NS bolus per PA 1840 verbal order for 1L NS bolus to be discontinued per PA 1915 verbal order for 1L NS bolus per PA
[2023-08-19 19:42] LABS: Influenza A QL RT-PCR Negative (Negative); Influenza B QL RT-PCR Negative (Negative); SARS-CoV-2 RNA PCR Negative (Negative)
[2023-08-19 21:13] LABS: Troponin I 0.754 ng/mL (0.000-0.034)
[2023-08-19 21:33] LABS: Alveolar/Arterial O2 Gradient 191.5 mmHg; Base Excess ABG -2.2 mEq/l (+/-2.0); Fractional Inspired Oxygen 50 %; HCO3 ABG 25.8 mEq/l (22.0-26.0); Oxygen Content ABG 14.4 %vol (16.0-22.0); Oxygen Saturation ABG 95.9 % (95.0-100.0); Oxyhemoglobin 95.7 % THb (90.0-100.0); PO2 ABG 95.6 mmHg (80.0-100.0); PO2 FiO2 Ratio Arterial Blood 1.91 %; Total Hemoglobin 10.6 g/dL (12.0-18.0)
--- NOTE | 2023-08-19 21:35 | PM.IMHP ---
H&P: HPI History of Present Illness Date/Time: 08/19/23 21:35 Chief Complaint: Shortness of breath Narrative: ?57-year-old female with a history of cirrhosis, COPD on 3 L nasal cannula at baseline, chronic alcoholic hepatitis, CHF reports for evaluation for acute onset dyspnea x3 years.? Patient states she was sitting down when she became short of breath.? She states she feels anxious and like her heart is beating out of her chest.? She reports an intermittent productive cough which is unchanged from her baseline.? Denies chest pain, fever, abdominal pain, nausea or vomiting, dysuria or hematuria, urinary frequency or urgency, BLE, history of VTE.? She has not required increased oxygen demand.? She lives at home with her son who helps take care of her.? Patient states she normally drinks 2 beers per day for many years .? Her last beer was yesterday around 12:00pm.? Of note, [facility] after admission for COPD exacerbation, 08/18/2023.? She does arrive with her discharge paperwork which noted that she had Trelegy Ellipta added to her medication list in addition to her alprazolam, fluoxetine, midodrine and albuterol.? Discharge summary does note that the patient was intubated and received a course of antibiotics in the ICU, then extubated as her breathing improved.? She was also recommended to follow-up with the pulmonology clinic as an outpatient to see if she is a candidate for a BiPAP machine.? Patient was tried on BiPAP however it did hop on how to be intubated and sedated. Workup was suggestive of pneumonia and patient has been broadly covered with antibiotic, also of note and a CTA done was distended gallbladder with gallbladder hyperemia. <Lizett Jung PA-C - Last Filed: 08/19/23 20:00> Review of Systems Review of Systems: All systems reviewed & are unremarkable except as noted in HPI and below PMFSH Past Medical History Medical History Abnormal EKG EKG has previously shown ST elevation which appears to be early repolarization. Alcohol abuse Anxiety Asthma B12 deficiency anemia Chronic anemia Chronic hyponatremia Chronic respiratory failure with hypoxia and hypercapnia On Trelegy unit at nighttime. However the patient is noncompliant 3 L nasal cannula during the day. Closed traumatic nondisplaced fracture of proximal end of right humerus Cognitive impairment COPD with emphysema COVID-19 (~11/2022) Fracture of distal phalanx of ring finger Gastroesophageal reflux disease Generalized anxiety disorder with panic attacks Osteoporosis Protein-calorie malnutrition, severe Pulmonary cachexia due to chronic obstructive pulmonary disease Right hand fracture Secondary nonischemic congestive cardiomyopathy With ejection fraction of 40-45%, diastolic dysfunction grade 1, mid inferior wall, mid anterior wall, mid in for septal wall mid anterior lateral wall, basal apical septum and mid inferior wall hypokinesis on echocardiogram 03/2022 Spontaneous pneumothorax (08/2012) Several pneumothoraces status post VATS procedure and apical blebectomy as well as pleurodesis. Tobacco abuse Quit in 2019 per patient report. Vitamin D deficiency Surgical History Surgical History History of bilateral tubal ligation History of section History of hip surgery (07/2019) ORIF of right femur fracture. History of tonsillectomy Status post thoracotomy Left-sided VATS procedure and apical bleb resection with pleurodesis. Family History Family History Father Acute myocardial infarction Mother Chronic obstructive pulmonary disease Social History Social History Social History: The patient had 3 sons but one from drug overdose. Patient is an alcoholic. When asked how much
[2023-08-19 21:37] LABS: Device VENTILATOR; PCO2 ABG 61.7 mmHg (35.0-45.0); Site Drawn RIGHT BRACHIAL
[2023-08-19 21:38] LABS: Arterial Blood Gas PEEP 5 cmH2O; Arterial Blood Gas Tidal Volume 300 ml; Arterial Blood Gas Vent Mode CMV; Arterial Blood Gas Ventilator rate 16 /MIN
[2023-08-19] MEDS: NOREPINEPHRINE 8 MG/D5W 250 ML 8 MG/250 ML BAG 9.38 MG IV CONT (21:39)
--- NOTE | 2023-08-19 22:10 | ADMGEN ---
This patient, Esther Brink, was admitted to Intensive Care Unit-10. Patient/family oriented to hospital policies and general routines including ID bracelet, bed and alarms, visiting hours, pain management, procedures, bathroom and other care routines, personal items, smoking policy, room service/diet, and visiting hours. Information on how to activate the Rapid Response Team has been discussed. Patient/Family are encouraged to report perceived risks to care and to ask questions if they do not understand what they are told or what they should do. brought up on vent with adequate sedation adn levophed infusing via central line placed on central monitor
[2023-08-20] VITALS (44 sets, daily range): BP systolic 81–114; BP diastolic 54–92; PULSE 80–103; RESP 18–20; TEMP 36.6–37.5; O2SAT 92–99; BMI 15.0
[2023-08-20] MEDS: SODIUM CHLORIDE 0.9% IV 1,000 ML 100 ML IV CONT (01:25)
[2023-08-20] MEDS: CENTRAL LINE FLUSH 10 ML IV PUSH ×4 (01:26→17:05)
[2023-08-20 01:45] LABS: Troponin I 0.629 ng/mL (0.000-0.034)
[2023-08-20] MEDS: methylPREDNISolone SOD SUCC 40 MG VIAL IV PUSH ×4 (02:07→16:54)
[2023-08-20] MEDS: ALBUTEROL SULFATE NEB 2.5 MG/3 ML INH INHALATION ×4 (02:30→21:01)
[2023-08-20] MEDS: MIDAZOLAM 100MG/NS 100ML(*CRX) 100 MG/100 ML BAG IV CONT ×2 (03:20→19:18)
[2023-08-20] MEDS: FENTANYL 2,500MCG/NS250ML(*CRX 2,500 MCG/250 ML BAG 10 MCG IV CONT (03:20)
[2023-08-20 05:47] LABS: Hemoglobin 9.5 g/dL (12.0-15.0); Immature Granulocyte Absolute 0.02 K/mm3 (0.00-0.031); Immature Granulocyte Percent A 0.3 % (0-0.5); Lymphocytes Absolute Auto 0.17 K/mm3 (0.9-3.2); Lymphocytes Percent Auto 2.4 % (18.3-44.2); Mean Corpuscular HGB Conc 31.7 g/dl (32-36); Mean Corpuscular Hemoglobin 30.7 pg (26-34); Mean Corpuscular Volume 97.1 fl (80-100); Mean Platelet Volume 8.1 fl (7.4-10.4); Monocytes Absolute Auto 0.2 K/mm3 (0.1-0.6); Monocytes Percent Auto 2.8 % (2.6-8.5); Neutrophils Absolute Auto 6.7 K/mm3 (1.3-6.7); Neutrophils Percent Auto 94.5 % (45.5-73.1); Platelet Count Result 489 k/mm3 (150-375); Red Blood Count 3.09 M/mm3 (4.2-5.4); Red Cell Distribution Width 13.5 % (11.5-14.5); White Blood Count 7.1 K/mm3 (4.5-10.0)
[2023-08-20] MEDS: VANCOMYCIN 750 MG/NS 250 ML 750 MG/250 ML BAG 250 MG IVPB ×2 (06:00→17:05)
[2023-08-20 06:03] LABS: Anion Gap 1 mmol/L (8-16); Blood Urea Nitrogen 4 mg/dL (7-17); Calcium 8.1 mg/dL (8.4-10.2); Carbon Dioxide 34 mmol/L (22-30); Chloride 90 mmol/L (98-107); Estimated CRCL calculation 90 ml/min; Estimated Glomerular Filt Rate > 60; Glucose 141 mg/dL (65-110); Sodium 125 mmol/L (137-145)
[2023-08-20 06:07] LABS: Alveolar/Arterial O2 Gradient 132.1 mmHg; Base Excess ABG 5.7 mEq/l (+/-2.0); Carboxyhemoglobin 0.3 % THb (0-2.0); Fractional Inspired Oxygen 40 %; HCO3 ABG 31.8 mEq/l (22.0-26.0); Methemoglobin ABG 0.3 %THb (0-1.5); Oxygen Content ABG 14.1 %vol (16.0-22.0); Oxygen Saturation ABG 96.7 % (95.0-100.0); Oxyhemoglobin 95.8 % THb (90.0-100.0); PCO2 ABG 54.3 mmHg (35.0-45.0); PO2 ABG 90.7 mmHg (80.0-100.0); PO2 FiO2 Ratio Arterial Blood 2.27 %; Reduced Hemoglobin 3.6 %THb (0-5.0); Total Hemoglobin 10.4 g/dL (12.0-18.0); pH ABG 7.386 (7.350-7.450)
[2023-08-20 06:09] LABS: Device VENTILATOR; Modified Allen's Test Pass; Site Drawn RIGHT RADIAL
[2023-08-20 06:10] LABS: Arterial Blood Gas PEEP 5 cmH2O; Arterial Blood Gas Tidal Volume 350 ml; Arterial Blood Gas Vent Mode CMV; Arterial Blood Gas Ventilator rate 20 /MIN
[2023-08-20] MEDS: CEFEPIME 1 GM/NS 50 ML 1 GM/50 ML BAG IVPB (06:53)
[2023-08-20] MEDS: BUDESONIDE RESPULE NEB 0.5 MG/2 ML AMP INHALATION ×2 (08:28→21:01)
[2023-08-20] MEDS: IPRATROPIUM BR 0.02% INH SOLN 0.5 MG/2.5 ML VIAL INHALATION ×3 (08:28→21:01)
[2023-08-20] MEDS: PANTOPRAZOLE SODIUM IV 40 MG VIAL IV PUSH (09:04)
[2023-08-20] MEDS: MIDODRINE HCL 2.5 MG TABLET 5 MG PO ×3 (09:04→16:54)
[2023-08-20] MEDS: ENOXAPARIN 40 MG/0.4 ML SYRINGE SUB-Q (09:05)
[2023-08-20] MEDS: MINERAL OIL/WHITE PETROLATUM OINTMENT 1 APPLIC EACH EYE (09:05)
[2023-08-20] MEDS: SODIUM CHLORIDE 0.9% IV 1,000 ML 75 ML IV CONT (12:30)
--- NOTE | 2023-08-20 13:44 | WPDCNINT ---
Assessment and Plan Assessment and plan (1) Acute on chronic respiratory failure with hypoxia and hypercapnia: Code(s): J96.21 - Acute and chronic respiratory failure with hypoxia; J96.22 - Acute and chronic respiratory failure with hypercapnia Status: Acute Assessment and Plan: Patient presented with shortness of breath likely secondary to panic attack, COPD exacerbation. Was found to have respiratory acidosis in the ER on her ABGs, was placed on BiPAP, patient tired out and was requesting intubation -08/19: Patient intubated in the ER -placed on CMV mode of ventilation, -currently on peep of 5, 40% FiO2, I adjusted the ventilation and I to E ratio improvement in her pCO2 levels and pH. -continue bronchodilators -add Pulmicort -sedated with fentanyl and Versed infusion, maintain RASS of 0 to -2, daily sedation vacation (2) Septic shock: Code(s): A41.9 - Sepsis, unspecified organism; R65.21 - Severe sepsis with septic shock Status: Acute Assessment and Plan: Patient dropped her blood pressures post intubation, could be related to positive pressure ventilation and or infection -lactic acids were normal, patient had leukocytosis -08/19: patient has been started on cefepime and vancomycin for healthcare associated pneumonia -patient has received adequate amount of IV fluids -continue Levophed, maintain mean arterial pressures > 65 mmHg and or SBP > 100 mmHg -continue maintenance IV fluids to tube feed goals are achieved, will DC IV fluids after the -08/19: Blood cultures have been ordered and pending -08/20: Sputum cultures have been ordered and pending Patient on midodrine at home, will continue (3) Acute exacerbation of chronic obstructive pulmonary disease: Code(s): J44.1 - Chronic obstructive pulmonary disease with (acute) exacerbation Status: Acute Assessment and Plan: Respiratory distress and respiratory failure likely related COPD exacerbation, panic attacks -continue mechanical ventilation, bronchodilators and Solu-Medrol (4) Acute hyponatremia: Code(s): E87.1 - Hypo-osmolality and hyponatremia Status: Acute Assessment and Plan: Patient with hyponatremia likely related to alcohol use -patient on normal saline with improvement in her sodium levels, -continue to monitor (5) Anxiety: Code(s): F41.9 - Anxiety disorder, unspecified Status: Acute Assessment and Plan: Will restart alprazolam and fluoxetine (6) Nonischemic cardiomyopathy: Code(s): I42.8 - Other cardiomyopathies Status: Chronic Assessment and Plan: 07/20/2023: Echocardiogram ?1. Complete two-dimensional, color flow and Doppler transthoracic echocardiogram is performed. ? 2. Normal left ventricular dimension with vigorous, almost hyperdynamic systolic function. Left ventricular systolic function is normal, estimated at 60-65%. ? 3. Mildly sclerotic but nonstenotic aortic valve. ? 4. Compared to echocardiogram from March of 2022, ejection fraction has increased/normalized. ? Plan DVT prophylaxis: Lovenox Stress ulcer prophylaxis: Protonix Nutrition: Will start tube feeds Code Status: Full code Critical Care Time Spent: 49 minutes Due to a high probability of clinically significant, life threatening deterioration, the patient required my highest level of preparedness to intervene emergently and I personally spent this critical care time directly and personally managing the patient. This critical care time included obtaining a history; examining the patient; pulse oximetry; ordering and review of studies; arranging urgent treatment with development of a management plan; evaluation of patient's response to treatment; frequent reassessment; and discussions with other providers. It was exclusive of separately billable procedures and treating other patients and teaching time. Please see Assessment and Plan section and the rest of the note for further i
[2023-08-20] MEDS: CEFEPIME 2 GM/NS 50 ML 2 GM/50 ML BAG IVPB ×2 (13:49→22:55)
[2023-08-20] MEDS: ALPRAZolam (*CRX) 0.5 MG TABLET PO (16:55)
--- NOTE | 2023-08-20 17:30 | PM.IMPN ---
Progress Note: A&P Assessment and Plan (1) Septic shock: Code(s): A41.9 - Sepsis, unspecified organism; R65.21 - Severe sepsis with septic shock Status: Acute Assessment and Plan: Patient met septic criteria and did not respond to fluid challenge and had to be started on pressor. Continue IV Hydration and titrate levophed accordingly (2) Sepsis: Qualifiers: Acute respiratory failure type: with hypoxia Sepsis acute organ dysfunction status: with acute organ dysfunction Sepsis type: sepsis due to unspecified organism Severe sepsis acute organ dysfunction type: acute respiratory failure Severe sepsis shock status: without septic shock Qualified Code(s): A41.9 - Sepsis, unspecified organism; R65.20 - Severe sepsis without septic shock; J96.01 - Acute respiratory failure with hypoxia Code(s): A41.9 - Sepsis, unspecified organism Status: Acute (3) Acute hypoxic respiratory failure: Code(s): J96.01 - Acute respiratory failure with hypoxia Status: Acute (4) Pneumonia: Qualifiers: Laterality: bilateral Lung location: unspecified part of lung Pneumonia type: due to unspecified organism Qualified Code(s): J18.9 - Pneumonia, unspecified organism Code(s): J18.9 - Pneumonia, unspecified organism Status: Acute (5) Hyponatremia: Code(s): E87.1 - Hypo-osmolality and hyponatremia Status: Acute (6) Elevated troponin: Code(s): R79.89 - Other specified abnormal findings of blood chemistry Status: Acute (7) COPD exacerbation: Code(s): J44.1 - Chronic obstructive pulmonary disease with (acute) exacerbation Status: Acute Plan A 57-year-old female with multiple comorbidities, [facility] for COPD exacerbation during which she was intubated, presented to the ED today for shortness of breathing, requiring BiPAP initially however got intubated as BiPAP failed. patient is septic with shock as she did not respond to fluid challenge. Pt being treated for acute respiratory failure, pneumonia and septic shock awaiting transfer to [facility] Subjective Date/time seen: 08/20/23 17:30 Interval history: 57-year-old female with a history of cirrhosis, COPD on 3 L nasal cannula at baseline, chronic alcoholic hepatitis, CHF reports for evaluation for acute onset dyspnea x3 years.? Patient states she was sitting down when she became short of breath.? She states she feels anxious and like her heart is beating out of her chest.? She reports an intermittent productive cough which is unchanged from her baseline.? Denies chest pain, fever, abdominal pain, nausea or vomiting, dysuria or hematuria, urinary frequency or urgency, BLE, history of VTE.? She has not required increased oxygen demand.? Pt was recently discharged from [facility] yesterday after admission for COPD exacerbation, 08/18/2023. [facility] has been contacted and will kaitlyn be tranfered there soon. Continue icu care here with ventilatory and bp support Pt is on a ventilator history unobtainable Review of Systems Review of Systems: All systems reviewed & are unremarkable except as noted in HPI and below Exam Narrative: Gen:Patient is intubated and sedated CHEST: bilateral mild expiratory wheezes. HEART: Regular rate and rhythm.? No murmur heard.? Normal peripheral pulses. ABDOMEN: Normal active bowel sounds.? Abdomen soft with tenderness in the right upper quadrant with guarding.? No rebound or rigidity.? No peritoneal signs. EXTREMITIES: No edema. SKIN: Warm, dry, no rash. NEURO: Intubated and sedated Objective Data Vital Signs Vital Signs: Vital Signs - 24 hr 08/19/23 17:44 08/19/23 17:55 08/19/23 17:45 Temperature Pulse Rate 117 H 115 H 112 H Respiratory Rate 20 24 H 23 H Blood Pressure 139/104 H Pulse Oximetry Oxygen Delivery Fraction of Inspired Oxygen 08/19/23 17:46 08/19/23 17:51 08/19/23 17:56 Temperature Pulse Rate 117 H 118 H
[2023-08-21] VITALS (31 sets, daily range): BP systolic 84–104; BP diastolic 58–70; PULSE 77–100; RESP 16–22; TEMP 36.6–37; O2SAT 89–100
[2023-08-21] MEDS: MINERAL OIL/WHITE PETROLATUM OINTMENT 1 APPLIC EACH EYE ×2 (01:25→21:44)
[2023-08-21] MEDS: CENTRAL LINE FLUSH 10 ML IV PUSH ×5 (01:26→21:44)
[2023-08-21] MEDS: FENTANYL 2,500MCG/NS250ML(*CRX 2,500 MCG/250 ML BAG IV CONT (01:36)
[2023-08-21] MEDS: IPRATROPIUM BR 0.02% INH SOLN 0.5 MG/2.5 ML VIAL INHALATION ×4 (02:17→20:40)
[2023-08-21] MEDS: ALBUTEROL SULFATE NEB 2.5 MG/3 ML INH INHALATION ×4 (02:18→20:40)
[2023-08-21 04:51] LABS: Carboxyhemoglobin 0.3 % THb (0-2.0); Fractional Inspired Oxygen 35 %; Methemoglobin ABG 0.4 %THb (0-1.5)
[2023-08-21 05:27] LABS: Lactic Acid Reflex 0.9 mmol/L (0.7-2.0)
[2023-08-21 05:32] LABS: Device VENTILATOR; Site Drawn RIGHT BRACHIAL
[2023-08-21 05:32] LABS: Alanine Aminotransferase 13 U/L (6-35); Albumin Level 2.9 g/dL (3.5-5.1); Alkaline Phosphatase 55 U/L (38-126); Anion Gap 0 mmol/L (8-16); Aspartate Amino Transferase 30 U/L (14-36); Bilirubin,Total 0.3 mg/dL (0.2-1.3); Blood Urea Nitrogen 10 mg/dL (7-17); Calcium 8.5 mg/dL (8.4-10.2); Carbon Dioxide 35 mmol/L (22-30); Chloride 95 mmol/L (98-107); Estimated CRCL calculation 71 ml/min; Estimated Glomerular Filt Rate > 60; Glucose 135 mg/dL (65-110); Magnesium 1.7 mg/dL (1.6-2.3); Phosphorus 1.6 mg/dL (2.5-4.5); Potassium 3.2 mmol/L (3.4-5.0); Sodium 130 mmol/L (137-145)
[2023-08-21 05:33] LABS: Basophils Percent Auto 0.1 % (0.2-1.2); Hematocrit 25.6 % (37.0-47.0); Hemoglobin 8.1 g/dL (12.0-15.0); Immature Granulocyte Absolute 0.04 K/mm3 (0.00-0.031); Immature Granulocyte Percent A 0.5 % (0-0.5); Lymphocytes Absolute Auto 0.13 K/mm3 (0.9-3.2); Lymphocytes Percent Auto 1.5 % (18.3-44.2); Mean Corpuscular HGB Conc 31.6 g/dl (32-36); Mean Corpuscular Hemoglobin 31.6 pg (26-34); Mean Platelet Volume 9.2 fl (7.4-10.4); Monocytes Absolute Auto 0.4 K/mm3 (0.1-0.6); Monocytes Percent Auto 4.9 % (2.6-8.5); Neutrophils Absolute Auto 7.9 K/mm3 (1.3-6.7); Platelet Count Result 349 k/mm3 (150-375); Red Blood Count 2.56 M/mm3 (4.2-5.4); Red Cell Distribution Width 14.4 % (11.5-14.5); White Blood Count 8.5 K/mm3 (4.5-10.0)
[2023-08-21 05:34] LABS: pH ABG 7.449 (7.350-7.450)
[2023-08-21 05:35] LABS: HCO3 ABG 32.1 mEq/l (22.0-26.0); PCO2 ABG 47.3 mmHg (35.0-45.0); PO2 ABG 81.3 mmHg (80.0-100.0)
[2023-08-21 05:36] LABS: Base Excess ABG 7.2 mEq/l (+/-2.0); Oxygen Saturation ABG 96.3 % (95.0-100.0)
[2023-08-21 05:37] LABS: Total Hemoglobin 9.4 g/dL (12.0-18.0)
[2023-08-21 05:38] LABS: Alveolar/Arterial O2 Gradient 40.8 mmHg
[2023-08-21 05:39] LABS: Oxygen Content ABG 12.6 %vol (16.0-22.0); Oxyhemoglobin 94.8 % THb (90.0-100.0)
[2023-08-21 05:40] LABS: Reduced Hemoglobin 4.5 %THb (0-5.0)
[2023-08-21 05:41] LABS: Arterial Blood Gas Vent Mode CMV; Arterial Blood Gas Ventilator rate 20 /MIN; PO2 FiO2 Ratio Arterial Blood 3.25 %
[2023-08-21 05:42] LABS: Arterial Blood Gas PEEP 5 cmH2O; Arterial Blood Gas Tidal Volume 350 ml
[2023-08-21 05:55] LABS: Vancomycin Trough 9.4 ug/mL (10.0-20.0)
[2023-08-21] MEDS: methylPREDNISolone SOD SUCC 40 MG VIAL IV PUSH ×3 (06:08→18:12)
[2023-08-21] MEDS: CEFEPIME 2 GM/NS 50 ML 2 GM/50 ML BAG IVPB ×3 (06:08→21:44)
[2023-08-21] MEDS: VANCOMYCIN 1,250 MG/NS 250 ML 1,250 MG/250 ML BAG 166.67 MG IVPB ×2 (07:11→18:12)
[2023-08-21] MEDS: BUDESONIDE RESPULE NEB 0.5 MG/2 ML AMP INHALATION ×2 (08:32→20:40)
[2023-08-21] MEDS: MAGNESIUM SULF 2 GM/WATER 50ML 2 GM/50 ML BAG IVPB (08:59)
[2023-08-21] MEDS: MIDODRINE HCL 2.5 MG TABLET 5 MG PO ×3 (09:00→18:12)
[2023-08-21] MEDS: FLUoxetine HCL 20 MG CAPSULE 40 MG PO (09:00)
[2023-08-21] MEDS: KCL 40 MEQ/WATER 100 ML 100 ML 25 ML IVPB (09:00)
[2023-08-21] MEDS: ENOXAPARIN 40 MG/0.4 ML SYRINGE SUB-Q (09:00)
[2023-08-21] MEDS: PANTOPRAZOLE SODIUM IV 40 MG VIAL IV PUSH (09:00)
[2023-08-21] MEDS: ALPRAZolam (*CRX) 0.5 MG TABLET PO ×2 (09:00→18:12)
[2023-08-21] MEDS: POTASSIUM/PHOSPHORUS/SODIUM 1.5 GM PACKET 1 PACKET FEED TUBE (09:00)
--- NOTE | 2023-08-21 10:50 | WPDINTPN ---
Progress Note: A&P Assessment and Plan (1) Acute on chronic respiratory failure with hypoxia and hypercapnia: Code(s): J96.21 - Acute and chronic respiratory failure with hypoxia; J96.22 - Acute and chronic respiratory failure with hypercapnia Status: Acute Assessment and Plan: Patient presented with shortness of breath likely secondary to panic attack, COPD exacerbation. Was found to have respiratory acidosis in the ER on her ABGs, was placed on BiPAP, patient tired out and was requesting intubation -08/19: Patient intubated in the ER -placed on CMV mode of ventilation, -currently on peep of 5, 35% FiO2, ABGs much improved, will decrease respiratory rate -continue bronchodilators -continue Pulmicort -sedated with fentanyl and Versed infusion, maintain RASS of 0 to -2, daily sedation vacation (2) Septic shock: Code(s): A41.9 - Sepsis, unspecified organism; R65.21 - Severe sepsis with septic shock Status: Acute Assessment and Plan: Patient dropped her blood pressures post intubation, could be related to positive pressure ventilation and or infection -lactic acids were normal, -leukocytosis has resolved -08/19: Continue cefepime and vancomycin for healthcare associated pneumonia -patient has received adequate amount of IV fluids -OFF Levophed, -maintenance IV fluids have been discontinued -08/19: Blood cultures: Preliminary results are negative x2 -08/20: Sputum cultures negative so far Patient on midodrine at home, will continue (3) Acute exacerbation of chronic obstructive pulmonary disease: Code(s): J44.1 - Chronic obstructive pulmonary disease with (acute) exacerbation Status: Acute Assessment and Plan: Respiratory distress and respiratory failure likely related COPD exacerbation, panic attacks -continue mechanical ventilation, bronchodilators -wean Solu-Medrol (4) Acute hyponatremia: Code(s): E87.1 - Hypo-osmolality and hyponatremia Status: Acute Assessment and Plan: Patient with hyponatremia likely related to alcohol use -patient on normal saline with improvement in her sodium levels, -continue to monitor (5) Anxiety: Code(s): F41.9 - Anxiety disorder, unspecified Status: Acute Assessment and Plan: Continue her home alprazolam and fluoxetine (6) Nonischemic cardiomyopathy: Code(s): I42.8 - Other cardiomyopathies Status: Chronic Assessment and Plan: 07/20/2023: Echocardiogram ?1. Complete two-dimensional, color flow and Doppler transthoracic echocardiogram is performed. ? 2. Normal left ventricular dimension with vigorous, almost hyperdynamic systolic function. Left ventricular systolic function is normal, estimated at 60-65%. ? 3. Mildly sclerotic but nonstenotic aortic valve. ? 4. Compared to echocardiogram from March of 2022, ejection fraction has increased/normalized. ? Plan DVT prophylaxis: Lovenox Stress ulcer prophylaxis: Protonix Nutrition: Tolerating tube feeds Code Status: Full code Critical Care Time Spent: 33 minutes Due to a high probability of clinically significant, life threatening deterioration, the patient required my highest level of preparedness to intervene emergently and I personally spent this critical care time directly and personally managing the patient. This critical care time included obtaining a history; examining the patient; pulse oximetry; ordering and review of studies; arranging urgent treatment with development of a management plan; evaluation of patient's response to treatment; frequent reassessment; and discussions with other providers. It was exclusive of separately billable procedures and treating other patients and teaching time. Please see Assessment and Plan section and the rest of the note for further information on patient assessment and treatment This dictation may have been done utilizing a voice recognition system. Attempts have been made to correct
--- NOTE | 2023-08-21 12:02 | PCNFU ---
Nutrition Follow-Up Complete: Severe Protein Calorie Malnutrition as related to increased protein-energy needs in setting of chronic disease or condition (COPD) as evidenced by minimal oral intake for > 1-2 months with severe subcutaneous fat loss (orbital fat pads) and muscle wasting (temporalis). Goal: Meet estimated nutritional needs Patient is progressing towards goal. We will continue current goal. Pt current nutrition is Vital AF 1.2 at 45 ml/hr. Last recorded weight is 37 kg, up from 36 kg on admit. Bowel Motility: No BM reported. Labs Reviewed:Glu 135, Cr 0.4,Na 130, K 3.2 Meds Noted:Fentanyl, Versed, Levophed, Vancomycin, Lovenox. Skin: WNL Additional Notes: Patient remains on mechanical vent and tube feedings of Vital AF 1.2 at 45 ml/hr. Tube feedings are being tolerating. Providing 1188 kcals/74 gms protein/803 ml water. Meeting 100% kcal needs at 33 kcal/kg and 1.8-2.0 gm/kg protein needs. Flush 30 ml q 4 hours. Agree with diet orders. Will monitor weight, labs, skin, tube feedings tolerance every Thursday and Thursday.
--- NOTE | 2023-08-21 13:15 | P.CDI_ITS ---
CDI Query Clarification Request BMI 15.0 Nutritional Diagnostic Statement Severe protein calorie Malnutrition as related to increased protein-energy needs in setting of chronic disease or condition (COPD) as evidenced by minimal oral intake for > 1-2 months with severe subcutaneous fat loss (orbital fat pads) and muscle wasting (temporalis). For further information please refer to the comprehensive nutrition assessment. Please clarify the severity of protein calorie malnutrition if known: * Mild * Moderate * Severe * Other/Unspecified <Natasha Zuluaga RN - Last Filed: 08/21/23 13:20> BMI 15.0 Nutritional Diagnostic Statement Severe protein calorie Malnutrition as related to increased protein-energy needs in setting of chronic disease or condition (COPD) as evidenced by minimal oral intake for > 1-2 months with severe subcutaneous fat loss (orbital fat pads) and muscle wasting (temporalis). For further information please refer to the comprehensive nutrition assessment. Please clarify the severity of protein calorie malnutrition if known: * Mild * Moderate * Severe * Other/Unspecified <Danielle Robbins MD - Last Filed: 08/21/23 16:04> Clarified Diagnosis Clarified Diagnosis: Mild Severity of protein calorie malnutrition <Danielle Robbins MD - Last Filed: 08/21/23 16:04>
[2023-08-21] MEDS: MIDAZOLAM 100MG/NS 100ML(*CRX) 100 MG/100 ML BAG IV CONT (23:36)
[2023-08-22] VITALS (41 sets, daily range): BP systolic 90–106; BP diastolic 51–72; PULSE 76–115; RESP 12–21; TEMP 36.7–37.2; O2SAT 20–99
[2023-08-22] MEDS: ALPRAZolam (*CRX) 0.5 MG TABLET FEED TUBE (00:09)
[2023-08-22] MEDS: ALBUTEROL SULFATE NEB 2.5 MG/3 ML INH INHALATION ×4 (03:02→20:11)
[2023-08-22] MEDS: IPRATROPIUM BR 0.02% INH SOLN 0.5 MG/2.5 ML VIAL INHALATION ×4 (03:02→20:11)
[2023-08-22 05:24] LABS: Hematocrit 26.2 % (37.0-47.0); Immature Granulocyte Absolute 0.03 K/mm3 (0.00-0.031); Immature Granulocyte Percent A 0.3 % (0-0.5); Lymphocytes Absolute Auto 0.25 K/mm3 (0.9-3.2); Lymphocytes Percent Auto 2.8 % (18.3-44.2); Mean Corpuscular HGB Conc 30.5 g/dl (32-36); Mean Corpuscular Hemoglobin 31.3 pg (26-34); Mean Corpuscular Volume 102.3 fl (80-100); Mean Platelet Volume 8.5 fl (7.4-10.4); Monocytes Absolute Auto 0.6 K/mm3 (0.1-0.6); Monocytes Percent Auto 6.2 % (2.6-8.5); Neutrophils Percent Auto 90.7 % (45.5-73.1); Platelet Count Result 314 k/mm3 (150-375); Red Blood Count 2.56 M/mm3 (4.2-5.4); Red Cell Distribution Width 14.9 % (11.5-14.5); White Blood Count 8.9 K/mm3 (4.5-10.0)
[2023-08-22] MEDS: methylPREDNISolone SOD SUCC 40 MG VIAL IV PUSH (05:36)
[2023-08-22] MEDS: CENTRAL LINE FLUSH 10 ML IV PUSH ×2 (05:36→13:27)
[2023-08-22 05:37] LABS: Alanine Aminotransferase 15 U/L (6-35); Alkaline Phosphatase 62 U/L (38-126); Aspartate Amino Transferase 28 U/L (14-36); Bilirubin,Total 0.3 mg/dL (0.2-1.3); Blood Urea Nitrogen 15 mg/dL (7-17); Calcium 8.4 mg/dL (8.4-10.2); Carbon Dioxide > 40 mmol/L (22-30); Chloride 93 mmol/L (98-107); Estimated CRCL calculation 93 ml/min; Estimated Glomerular Filt Rate > 60; Glucose 145 mg/dL (65-110); Magnesium 2.2 mg/dL (1.6-2.3); Phosphorus 2.1 mg/dL (2.5-4.5); Potassium 3.8 mmol/L (3.4-5.0); Sodium 129 mmol/L (137-145)
[2023-08-22] MEDS: CEFEPIME 2 GM/NS 50 ML 2 GM/50 ML BAG IVPB ×3 (05:37→22:00)
[2023-08-22] MEDS: VANCOMYCIN 1,250 MG/NS 250 ML 1,250 MG/250 ML BAG 166.67 MG IVPB ×2 (05:37→17:35)
[2023-08-22 05:59] LABS: Alveolar/Arterial O2 Gradient 92.8 mmHg; Base Excess ABG 12.3 mEq/l (+/-2.0); Carboxyhemoglobin 0.3 % THb (0-2.0); Fractional Inspired Oxygen 35 %; HCO3 ABG 37.9 mEq/l (22.0-26.0); Methemoglobin ABG 0.5 %THb (0-1.5); Oxygen Content ABG 12.4 %vol (16.0-22.0); Oxygen Saturation ABG 97.1 % (95.0-100.0); Oxyhemoglobin 95.6 % THb (90.0-100.0); PCO2 ABG 56.5 mmHg (35.0-45.0); PO2 ABG 91.1 mmHg (80.0-100.0); Reduced Hemoglobin 3.6 %THb (0-5.0); Total Hemoglobin 9.1 g/dL (12.0-18.0); pH ABG 7.445 (7.350-7.450)
[2023-08-22 06:02] LABS: Device VENTILATOR; Site Drawn LEFT BRACHIAL
[2023-08-22 06:03] LABS: Arterial Blood Gas PEEP 5 cmH2O; Arterial Blood Gas Tidal Volume 350 ml; Arterial Blood Gas Vent Mode CMV; Arterial Blood Gas Ventilator rate 18 /MIN
[2023-08-22] MEDS: BUDESONIDE RESPULE NEB 0.5 MG/2 ML AMP INHALATION ×2 (07:53→20:11)
[2023-08-22] MEDS: FLUoxetine HCL 20 MG CAPSULE 40 MG PO (08:05)
[2023-08-22] MEDS: MINERAL OIL/WHITE PETROLATUM OINTMENT 1 APPLIC EACH EYE (08:05)
[2023-08-22] MEDS: MIDODRINE HCL 2.5 MG TABLET 5 MG PO ×3 (08:05→16:19)
[2023-08-22] MEDS: ALPRAZolam (*CRX) 0.5 MG TABLET PO ×2 (08:06→16:19)
[2023-08-22] MEDS: FUROSEMIDE INJ 40 MG/4 ML VIAL 20 MG IV PUSH (08:06)
[2023-08-22] MEDS: ENOXAPARIN 40 MG/0.4 ML SYRINGE SUB-Q (08:06)
[2023-08-22] MEDS: POTASSIUM/PHOSPHORUS/SODIUM 1.5 GM PACKET 1 PACKET FEED TUBE (08:06)
[2023-08-22] MEDS: PANTOPRAZOLE SODIUM IV 40 MG VIAL IV PUSH (08:06)
--- NOTE | 2023-08-22 08:53 | WPDINTPN ---
Progress Note: A&P Assessment and Plan (1) Acute on chronic respiratory failure with hypoxia and hypercapnia: Code(s): J96.21 - Acute and chronic respiratory failure with hypoxia; J96.22 - Acute and chronic respiratory failure with hypercapnia Status: Acute Assessment and Plan: Patient presented with shortness of breath likely secondary to panic attack, COPD exacerbation. Was found to have respiratory acidosis in the ER on her ABGs, was placed on BiPAP, patient tired out and was requesting intubation -08/19: Patient intubated in the ER -placed on CMV mode of ventilation, -currently on peep of 5, 32% FiO2, ABGs reviewed -continue bronchodilators -continue Pulmicort -sedated with fentanyl and Versed infusion, maintain RASS of 0 to -2, daily sedation vacation Will give Lasix 20 mg IV x1 and repeat later this evening if necessary as blood pressures are borderline (2) Septic shock: Code(s): A41.9 - Sepsis, unspecified organism; R65.21 - Severe sepsis with septic shock Status: Acute Assessment and Plan: Patient dropped her blood pressures post intubation, could be related to positive pressure ventilation and or infection -lactic acids were normal, -leukocytosis has resolved -08/19: Continue cefepime and vancomycin for healthcare associated pneumonia, patient was discharged from [facility] 1 day prior to admission here at [facility] -patient has received adequate amount of IV fluids -OFF Levophed, -maintenance IV fluids have been discontinued -08/19: Blood cultures: Preliminary results are negative x2 -08/20: Sputum cultures negative so far Patient on midodrine at home, will continue (3) Acute exacerbation of chronic obstructive pulmonary disease: Code(s): J44.1 - Chronic obstructive pulmonary disease with (acute) exacerbation Status: Acute Assessment and Plan: Respiratory distress and respiratory failure likely related COPD exacerbation, panic attacks -continue mechanical ventilation, bronchodilators -continue to wean Solu-Medrol (4) Acute hyponatremia: Code(s): E87.1 - Hypo-osmolality and hyponatremia Status: Acute Assessment and Plan: Patient with hyponatremia likely related to alcohol use -patient on normal saline with improvement in her sodium levels, -continue to monitor (5) Anxiety: Code(s): F41.9 - Anxiety disorder, unspecified Status: Acute Assessment and Plan: Continue her home alprazolam and fluoxetine (6) Nonischemic cardiomyopathy: Code(s): I42.8 - Other cardiomyopathies Status: Chronic Assessment and Plan: 07/20/2023: Echocardiogram ?1. Complete two-dimensional, color flow and Doppler transthoracic echocardiogram is performed. ? 2. Normal left ventricular dimension with vigorous, almost hyperdynamic systolic function. Left ventricular systolic function is normal, estimated at 60-65%. ? 3. Mildly sclerotic but nonstenotic aortic valve. ? 4. Compared to echocardiogram from March of 2022, ejection fraction has increased/normalized. ? Plan DVT prophylaxis: Lovenox Stress ulcer prophylaxis: Protonix Nutrition: Tolerating tube feeds Code Status: Full code Critical Care Time Spent: 32 minutes Due to a high probability of clinically significant, life threatening deterioration, the patient required my highest level of preparedness to intervene emergently and I personally spent this critical care time directly and personally managing the patient. This critical care time included obtaining a history; examining the patient; pulse oximetry; ordering and review of studies; arranging urgent treatment with development of a management plan; evaluation of patient's response to treatment; frequent reassessment; and discussions with other providers. It was exclusive of separately billable procedures and treating other patients and teaching time. Please see Assessment and Plan section
[2023-08-22 13:14] LABS: Osmolality, Urine 612 mOsm/kg (50-1200)
--- NOTE | 2023-08-22 13:24 | PM.IMPN ---
Progress Note: A&P Assessment and Plan (1) Acute on chronic respiratory failure with hypoxia and hypercapnia: Code(s): J96.21 - Acute and chronic respiratory failure with hypoxia; J96.22 - Acute and chronic respiratory failure with hypercapnia Status: Acute Assessment and Plan: COPD exacerbation Furosemide prn for fluid balance F/u ABG, labs Wean as possible (2) Septic shock: Code(s): A41.9 - Sepsis, unspecified organism; R65.21 - Severe sepsis with septic shock Status: Acute Assessment and Plan: Continue cefepime and vancomycin for pneumonia (3) Acute exacerbation of chronic obstructive pulmonary disease: Code(s): J44.1 - Chronic obstructive pulmonary disease with (acute) exacerbation Status: Acute Assessment and Plan: Wean steroids as tolerated (4) Acute hyponatremia: Code(s): E87.1 - Hypo-osmolality and hyponatremia Status: Acute Assessment and Plan: 08/22/23 Na 129 (5) Anxiety: Code(s): F41.9 - Anxiety disorder, unspecified Status: Acute Assessment and Plan: Continue fluoxetine and alprazolam (6) Nonischemic cardiomyopathy: Code(s): I42.8 - Other cardiomyopathies Status: Chronic Assessment and Plan: Appears to have resolved by most recent echo 07/20/2023: Echocardiogram ?1. Complete two-dimensional, color flow and Doppler transthoracic echocardiogram is performed. ? 2. Normal left ventricular dimension with vigorous, almost hyperdynamic systolic function. Left ventricular systolic function is normal, estimated at 60-65%. ? 3. Mildly sclerotic but nonstenotic aortic valve. ? 4. Compared to echocardiogram from March of 2022, ejection fraction has increased/normalized. ? Subjective Date/time seen: 08/22/23 13:24 Interval history: Sedated and ventilated. Review of Systems Review of Systems: ROS unobtainable: Yes unobtainable due to medical condition Exam Narrative: General: Cachectic female appears older than stated age, intubated and sedated, no acute distress HEENT:? PETT in place Neck:?No JVD Respiratory:? Coarse breath sounds bilaterally, no wheezing or crackles Cardiac:? S1-S2 is normal, regular rate and rhythm Abdomen:? Soft, nontender, nondistended, hypoactive bowel sounds Extremities:? No edema, cyanosis. Pedal pulses are palpable Neuro:? Patient is intubated, sedated, unresponsive to verbal or tactile stimuli Psych:? Unable to assess at this time Objective Data Vital Signs Vital Signs: Vital Signs - 24 hr 08/21/23 13:26 08/21/23 13:27 08/21/23 14:00 Temperature Pulse Rate 82 82 85 Respiratory Rate 18 16 Blood Pressure 95/60 L Pulse Oximetry 94 92 Oxygen Delivery Mechanical Ventilation Fraction of Inspired Oxygen 30 08/21/23 14:00 08/21/23 16:00 08/21/23 16:00 Temperature 98.4 F Pulse Rate 82 90 91 Respiratory Rate 19 Blood Pressure 101/65 Pulse Oximetry 99 Oxygen Delivery Fraction of Inspired Oxygen 08/21/23 16:00 08/21/23 16:00 08/21/23 16:53 Temperature Pulse Rate 90 Respiratory Rate Blood Pressure Pulse Oximetry 92 91 Oxygen Delivery Mechanical Ventilation Mechanical Ventilation Fraction of Inspired Oxygen 30 30 30 08/21/23 18:00 08/21/23 18:00 08/21/23 14:00 Temperature 98.4 F Pulse Rate 85 85 82 Respiratory Rate 18 18 Blood Pressure 99/67 L Pulse Oximetry 94 Oxygen Delivery Fraction of Inspired Oxygen 08/21/23 16:00 08/21/23 18:00 08/21/23 14:00 Temperature Pulse Rate 92 86 82 Respiratory Rate 18 18 18 Blood Pressure Pulse Oximetry Oxygen Delivery Fraction of Inspired Oxygen 08/21/23 16:00 08/21/23 18:00 08/21/23 20:00 Temperature Pulse Rate 92 86 81 Respiratory Rate 18 18 Blood Pressure Pulse Oximetry Oxygen Delivery Fraction of Inspired Oxygen 08/21/23 20:00 08/21/23 20:00 08/21/23 20:00 Temperature 98.3 F Pul
--- NOTE | 2023-08-22 14:00 | PC.NURSE ---
At 1340, this RN went to assess patient. ET tube noted to be closer to 19cm at the teeth. ET tube positioned at the left corner of mouth. Ventilator also noted to be pulling variable tidal volumes ranging from 80 mls to 350 mls. Patients oxygen saturations at the time are 96% and patient in no notable distress. A leak was auscultated in the patients airway at the bedside by this RN. MD immediately notified and RT notified. MD at the bedside at 1341. MD confirmed ET tube above ideal placement. Orders to stop sedation and tube feeds initiated and placed. Orders to extubate patient placed. RN to continue to monitor. Patient successfully extubated at 1345, and placed on 3L NC per RT. Patient tolerated well. All vital signs remain stable at this time.
[2023-08-22] MEDS: methylPREDNISolone SOD SUCC 40 MG VIAL 20 MG IV PUSH (22:00)
[2023-08-23] VITALS (97 sets, daily range): BP systolic 89–133; BP diastolic 54–93; PULSE 93–145; RESP 12–26; TEMP 35.9–37.7; O2SAT 87–100
[2023-08-23] MEDS: CENTRAL LINE FLUSH 10 ML IV PUSH ×5 (00:11→21:53)
[2023-08-23] MEDS: IPRATROPIUM BR 0.02% INH SOLN 0.5 MG/2.5 ML VIAL INHALATION ×4 (00:48→20:20)
[2023-08-23] MEDS: ALBUTEROL SULFATE NEB 2.5 MG/3 ML INH INHALATION ×4 (00:48→20:21)
--- NOTE | 2023-08-23 00:48 | PC.NURSE ---
pt woke from sleeping in a panic HR 140-150 pt resp rate 22. poor air movement in lung field sats 90% with nasal cannula 3lpm Dr burden notified and gave orders for ativan and morphine Resp at bedside for neb
[2023-08-23] MEDS: LORazepam INJ (*CRX) 2 MG/ML VIAL 1 MG IV PUSH ×2 (00:55→08:40)
[2023-08-23] MEDS: CEFEPIME 2 GM/NS 50 ML 2 GM/50 ML BAG IVPB ×3 (05:12→21:46)
[2023-08-23] MEDS: MORPHINE SULFATE (*CRX) 4 MG/ML INJ IV PUSH (05:13)
[2023-08-23 05:18] LABS: Alveolar/Arterial O2 Gradient 86.8 mmHg; Base Excess ABG 15.6 mEq/l (+/-2.0); Carboxyhemoglobin 0.3 % THb (0-2.0); Fractional Inspired Oxygen 32 %; HCO3 ABG 41.8 mEq/l (22.0-26.0); Methemoglobin ABG 0.3 %THb (0-1.5); Oxygen Content ABG 13.2 %vol (16.0-22.0); Oxygen Saturation ABG 94.1 % (95.0-100.0); Oxyhemoglobin 93.1 % THb (90.0-100.0); PO2 ABG 69.4 mmHg (80.0-100.0); PO2 FiO2 Ratio Arterial Blood 2.17 %; Reduced Hemoglobin 6.3 %THb (0-5.0)
[2023-08-23 05:20] LABS: Basophils Percent Auto 0.1 % (0.2-1.2); Hematocrit 29.1 % (37.0-47.0); Hemoglobin 8.6 g/dL (12.0-15.0); Immature Granulocyte Absolute 0.04 K/mm3 (0.00-0.031); Immature Granulocyte Percent A 0.3 % (0-0.5); Lymphocytes Absolute Auto 0.44 K/mm3 (0.9-3.2); Lymphocytes Percent Auto 3.7 % (18.3-44.2); Mean Corpuscular HGB Conc 29.6 g/dl (32-36); Mean Corpuscular Hemoglobin 30.5 pg (26-34); Mean Corpuscular Volume 103.2 fl (80-100); Mean Platelet Volume 8.5 fl (7.4-10.4); Monocytes Absolute Auto 0.6 K/mm3 (0.1-0.6); Monocytes Percent Auto 4.7 % (2.6-8.5); Neutrophils Absolute Auto 10.9 K/mm3 (1.3-6.7); Neutrophils Percent Auto 91.2 % (45.5-73.1); Platelet Count Result 331 k/mm3 (150-375); Red Blood Count 2.82 M/mm3 (4.2-5.4); Red Cell Distribution Width 14.6 % (11.5-14.5)
[2023-08-23 05:21] LABS: Device NASAL CANNULA; Modified Allen's Test Pass; PCO2 ABG 61.5 mmHg (35.0-45.0); Site Drawn RIGHT RADIAL
[2023-08-23 05:34] LABS: Alanine Aminotransferase 16 U/L (6-35); Albumin Level 3.2 g/dL (3.5-5.1); Alkaline Phosphatase 54 U/L (38-126); Aspartate Amino Transferase 32 U/L (14-36); Bilirubin,Total 0.4 mg/dL (0.2-1.3); Blood Urea Nitrogen 12 mg/dL (7-17); Calcium 8.6 mg/dL (8.4-10.2); Carbon Dioxide > 40 mmol/L (22-30); Chloride 88 mmol/L (98-107); Estimated CRCL calculation 95 ml/min; Estimated Glomerular Filt Rate > 60; Glucose 99 mg/dL (65-110); Magnesium 1.9 mg/dL (1.6-2.3); Phosphorus 3.5 mg/dL (2.5-4.5); Potassium 3.4 mmol/L (3.4-5.0); Sodium 133 mmol/L (137-145)
[2023-08-23 05:41] LABS: Hypochromasia 2+ (NORMAL); Platelet Estimate Adequate (Adequate); Schistocytes None Seen (NORMAL)
[2023-08-23] MEDS: VANCOMYCIN 1,250 MG/NS 250 ML 1,250 MG/250 ML BAG 166.67 MG IVPB (05:45)
[2023-08-23] MEDS: BUDESONIDE RESPULE NEB 0.5 MG/2 ML AMP INHALATION ×2 (07:39→20:21)
[2023-08-23] MEDS: ALPRAZolam (*CRX) 0.5 MG TABLET PO ×3 (07:39→21:42)
[2023-08-23] MEDS: POTASSIUM CHLORIDE 20 MEQ PACKET (FOR LIQUID) 40 MEQ FEED TUBE (07:39)
[2023-08-23] MEDS: acetaZOLAMIDE SODIUM FOR INJ 500 MG VIAL 250 MG IV PUSH (07:48)
[2023-08-23] MEDS: MIDODRINE HCL 2.5 MG TABLET 5 MG PO ×3 (08:02→18:15)
[2023-08-23] MEDS: PANTOPRAZOLE SODIUM IV 40 MG VIAL IV PUSH (08:02)
[2023-08-23] MEDS: FLUoxetine HCL 20 MG CAPSULE 40 MG PO (08:02)
[2023-08-23] MEDS: ENOXAPARIN 40 MG/0.4 ML SYRINGE SUB-Q (08:02)
[2023-08-23] MEDS: methylPREDNISolone SOD SUCC 40 MG VIAL 20 MG IV PUSH ×2 (08:02→21:52)
[2023-08-23] MEDS: WATER, STERILE FOR INJECTION 10 ML VIAL XX (08:03)
--- NOTE | 2023-08-23 08:48 | PM.IMPN ---
Progress Note: A&P Assessment and Plan (1) Acute on chronic respiratory failure with hypoxia and hypercapnia: Code(s): J96.21 - Acute and chronic respiratory failure with hypoxia; J96.22 - Acute and chronic respiratory failure with hypercapnia Status: Acute Assessment and Plan: COPD exacerbation Furosemide prn for fluid balance F/u ABG, labs Doing well since extubation (2) Septic shock: Code(s): A41.9 - Sepsis, unspecified organism; R65.21 - Severe sepsis with septic shock Status: Acute Assessment and Plan: Continue cefepime and vancomycin for pneumonia (3) Acute exacerbation of chronic obstructive pulmonary disease: Code(s): J44.1 - Chronic obstructive pulmonary disease with (acute) exacerbation Status: Acute Assessment and Plan: Wean steroids as tolerated (4) Acute hyponatremia: Code(s): E87.1 - Hypo-osmolality and hyponatremia Status: Acute Assessment and Plan: 08/22/23 Na 129, 08/23 133 (5) Anxiety: Code(s): F41.9 - Anxiety disorder, unspecified Status: Acute Assessment and Plan: Continue fluoxetine and alprazolam 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 Complete two-dimensional, color flow and Doppler transthoracic echocardiogram is performed. ? 2. Normal left ventricular dimension with vigorous, almost hyperdynamic systolic function. Left ventricular systolic function is normal, estimated at 60-65%. ? 3. Mildly sclerotic but nonstenotic aortic valve. ? 4. Compared to echocardiogram from March of 2022, ejection fraction has increased/normalized. ? Subjective Date/time seen: 08/23/23 08:48 Interval history: Now extubated. No complaints of pain. Anxious. No shortness of breath at rest. States she has to urinate and defecate. No bleeding noted. No focal weakness. Review of Systems Review of Systems: All systems reviewed & are unremarkable except as noted in HPI and below Exam Narrative: General: Cachectic female appears older than stated age lying comfortably in hospital bed HEENT:? Sclerae nonicteric, perrla, oral mucosa pink and moist Neck:?No JVD Respiratory:? Coarse breath sounds bilaterally, no wheezing or crackles Cardiac:? S1-S2 is normal, regular rate and rhythm Abdomen:? Soft, nontender, nondistended, hypoactive bowel sounds Extremities:? No edema, cyanosis. Neuro:? CN symmetric to inspection, tone and strength symmetric Psych:? Alert. Oriented to person and place, thought year was 2023, did not know month Objective Data Vital Signs Vital Signs: Vital Signs - 24 hr 08/22/23 09:52 08/22/23 09:54 08/22/23 10:00 Temperature Pulse Rate 90 90 93 Respiratory Rate 18 18 Blood Pressure Pulse Oximetry Oxygen Delivery Oxygen Flow Rate Fraction of Inspired Oxygen 08/22/23 09:55 08/22/23 12:00 08/22/23 12:00 Temperature 98.5 F 98.3 F Pulse Rate 91 94 Respiratory Rate 18 18 Blood Pressure 101/58 L 91/53 L Pulse Oximetry 94 92 Oxygen Delivery Oxygen Flow Rate Fraction of Inspired Oxygen 32 08/22/23 11:45 08/22/23 11:45 08/22/23 11:55 Temperature Pulse Rate 115 H 115 H 88 Respiratory Rate 18 18 Blood Pressure Pulse Oximetry 93 Oxygen Delivery Mechanical Ventilation Oxygen Flow Rate Fraction of Inspired Oxygen 32 08/22/23 12:00 08/22/23 12:00 08/22/23 13:25 Temperature Pulse Rate 92 86 Respiratory Rate 18 18 Blood Pressure Pulse Oximetry 92 Oxygen Delivery Mechanical Ventilation Oxygen Flow Rate Fraction of Inspired Oxygen 32 08/22/23 13:26 08/22/23 13:53 08/22/23 13:59 Temperature Pulse Rate 86 103 H 96 Respiratory Rate 18 12 12 Blood Pressure Pulse Oximetry
--- NOTE | 2023-08-23 11:13 | WPDINTPN ---
Progress Note: A&P Assessment and Plan (1) Acute on chronic respiratory failure with hypoxia and hypercapnia: Code(s): J96.21 - Acute and chronic respiratory failure with hypoxia; J96.22 - Acute and chronic respiratory failure with hypercapnia Status: Acute Assessment and Plan: Patient presented with shortness of breath likely secondary to panic attack, COPD exacerbation. Was found to have respiratory acidosis in the ER on her ABGs, was placed on BiPAP, patient tired out and was requesting intubation -08/19: Patient intubated in the ER -08/22: extubated -patient has been on 3 L nasal cannula which has been her home settings -continue bronchodilators -continue Pulmicort -08/23: Patient has been very anxious through the night with panic attacks, requiring high-flow therapy this morning. -discussed with her regarding tracheostomy and PEG tube with LTAC placement, she wanted me to talk to her ex Neo, who was not available on the phone -I did talk to a power energy attorney her son Lino, we discussed tracheostomy and PEG tube placement with patient's sister Germaine, they do not want tracheostomy and PEG tube placement at this time but they would wanted to be intubated. They also want her to be in a jail. -chest x-ray this morning much improved, -patient diuresed well yesterday, will repeat diuresis with Diamox to prevent contraction alkalosis (2) Septic shock: Code(s): A41.9 - Sepsis, unspecified organism; R65.21 - Severe sepsis with septic shock Status: Acute Assessment and Plan: Patient dropped her blood pressures post intubation, could be related to positive pressure ventilation and or infection -lactic acids were normal, -leukocytosis has resolved -08/19: Continue cefepime and vancomycin for healthcare associated pneumonia, patient was discharged from [facility] 1 day prior to admission here at [facility] -patient has received adequate amount of IV fluids -OFF Levophed, -maintenance IV fluids have been discontinued -08/19: Blood cultures: Preliminary results are negative x2 -08/20: Sputum cultures yeast isolated Patient on midodrine at home, will continue (3) Acute exacerbation of chronic obstructive pulmonary disease: Code(s): J44.1 - Chronic obstructive pulmonary disease with (acute) exacerbation Status: Acute Assessment and Plan: Respiratory distress and respiratory failure likely related COPD exacerbation, panic attacks -continue mechanical ventilation, bronchodilators -continue to wean Solu-Medrol (4) Acute hyponatremia: Code(s): E87.1 - Hypo-osmolality and hyponatremia Status: Acute Assessment and Plan: Patient with hyponatremia likely related to alcohol use -patient on normal saline with improvement in her sodium levels, -continue to monitor (5) Anxiety: Code(s): F41.9 - Anxiety disorder, unspecified Status: Acute Assessment and Plan: Continue her home alprazolam and fluoxetine] -increase her alprazolam to q.8 hours -discuss with Dr. Haro, recommended starting BuSpar. Ordered BuSpar 5 mg p.o. q.12 hours (6) Nonischemic cardiomyopathy: Code(s): I42.8 - Other cardiomyopathies Status: Chronic Assessment and Plan: 07/20/2023: Echocardiogram ?1. Complete two-dimensional, color flow and Doppler transthoracic echocardiogram is performed. ? 2. Normal left ventricular dimension with vigorous, almost hyperdynamic systolic function. Left ventricular systolic function is normal, estimated at 60-65%. ? 3. Mildly sclerotic but nonstenotic aortic valve. ? 4. Compared to echocardiogram from March of 2022, ejection fraction has increased/normalized. ? Plan DVT prophylaxis: Lovenox Stress ulcer prophylaxis: Protonix Nutrition: Will hold p.o. diet since patient's respiratory status is tenuous, will restart tube feeds Code Status: Full code Critical Care Time Spent: 36 minutes
--- NOTE | 2023-08-23 11:37 | PCSTNOTE ---
Please refer to the Bedside Swallow Evaluation in the EMR. Please note, silent aspiration cannot be ruled out at bedside.
[2023-08-23] MEDS: busPIRone HCL 5 MG TABLET PO ×2 (12:18→21:43)
[2023-08-23] MEDS: dexmedeTOMIDine 400 MCG/100 ML 400 MCG/100 ML BAG IV CONT (13:07)
--- NOTE | 2023-08-23 14:40 | PCPTNOTE ---
Per nursing, pt is currently sedated. Will recheck status at a later time.
[2023-08-23] MEDS: VANCOMYCIN 1,250 MG/NS 250 ML 1,250 MG/250 ML BAG 167 MG IVPB (18:11)
[2023-08-23] MEDS: MINERAL OIL/WHITE PETROLATUM OINTMENT 1 APPLIC EACH EYE (21:53)
[2023-08-24] VITALS (40 sets, daily range): BP systolic 78–130; BP diastolic 38–80; PULSE 72–117; RESP 18–26; TEMP 36.3–37.6; O2SAT 88–100
[2023-08-24] MEDS: dexmedeTOMIDine 400 MCG/100 ML 400 MCG/100 ML BAG 8.55 MCG IV CONT (01:40)
[2023-08-24] MEDS: IPRATROPIUM BR 0.02% INH SOLN 0.5 MG/2.5 ML VIAL INHALATION ×4 (01:44→19:39)
[2023-08-24] MEDS: ALBUTEROL SULFATE NEB 2.5 MG/3 ML INH INHALATION ×4 (01:46→19:39)
[2023-08-24] MEDS: CEFEPIME 2 GM/NS 50 ML 2 GM/50 ML BAG IVPB ×3 (05:23→21:16)
[2023-08-24] MEDS: ALPRAZolam (*CRX) 0.5 MG TABLET PO (05:23)
[2023-08-24] MEDS: VANCOMYCIN 1,250 MG/NS 250 ML 1,250 MG/250 ML BAG 167 MG IVPB (05:24)
[2023-08-24] MEDS: CENTRAL LINE FLUSH 10 ML IV PUSH ×4 (05:31→21:19)
[2023-08-24 05:41] LABS: Basophils Percent Auto 0.1 % (0.2-1.2); Hematocrit 29.1 % (37.0-47.0); Hemoglobin 8.5 g/dL (12.0-15.0); Immature Granulocyte Absolute 0.05 K/mm3 (0.00-0.031); Immature Granulocyte Percent A 0.5 % (0-0.5); Lymphocytes Absolute Auto 0.29 K/mm3 (0.9-3.2); Lymphocytes Percent Auto 2.7 % (18.3-44.2); Mean Corpuscular HGB Conc 29.2 g/dl (32-36); Mean Corpuscular Hemoglobin 30.9 pg (26-34); Mean Corpuscular Volume 105.8 fl (80-100); Mean Platelet Volume 8.9 fl (7.4-10.4); Monocytes Absolute Auto 0.6 K/mm3 (0.1-0.6); Neutrophils Absolute Auto 9.6 K/mm3 (1.3-6.7); Neutrophils Percent Auto 90.7 % (45.5-73.1); Platelet Count Result 282 k/mm3 (150-375); Red Blood Count 2.75 M/mm3 (4.2-5.4); Red Cell Distribution Width 14.2 % (11.5-14.5); White Blood Count 10.6 K/mm3 (4.5-10.0)
[2023-08-24 05:52] LABS: Base Excess ABG 15.9 mEq/l (+/-2.0); Carboxyhemoglobin 0.5 % THb (0-2.0); Fractional Inspired Oxygen 55 %; HCO3 ABG 42.8 mEq/l (22.0-26.0); Methemoglobin ABG 0.1 %THb (0-1.5); Oxygen Content ABG 11.4 %vol (16.0-22.0); Oxygen Saturation ABG 89.6 % (95.0-100.0); PO2 ABG 59.2 mmHg (80.0-100.0); PO2 FiO2 Ratio Arterial Blood 1.08 %; Reduced Hemoglobin 8.4 %THb (0-5.0); Total Hemoglobin 8.9 g/dL (12.0-18.0); pH ABG 7.404 (7.350-7.450)
[2023-08-24 05:53] LABS: Modified Allen's Test Pass; PCO2 ABG 70.1 mmHg (35.0-45.0); Site Drawn LEFT RADIAL
[2023-08-24 05:54] LABS: Device HIGH FLOW NASAL CANN
[2023-08-24 05:56] LABS: Alanine Aminotransferase 16 U/L (6-35); Albumin Level 3.1 g/dL (3.5-5.1); Alkaline Phosphatase 59 U/L (38-126); Aspartate Amino Transferase 28 U/L (14-36); Bilirubin,Total 0.4 mg/dL (0.2-1.3); Blood Urea Nitrogen 14 mg/dL (7-17); Calcium 8.1 mg/dL (8.4-10.2); Carbon Dioxide > 40 mmol/L (22-30); Chloride 85 mmol/L (98-107); Estimated CRCL calculation 92 ml/min; Estimated Glomerular Filt Rate > 60; Glucose 140 mg/dL (65-110); Magnesium 1.9 mg/dL (1.6-2.3); Phosphorus 3.1 mg/dL (2.5-4.5); Potassium 3.6 mmol/L (3.4-5.0); Sodium 126 mmol/L (137-145)
[2023-08-24 07:29] LABS: Anisocytosis 2+ (NORMAL); Hypochromasia 1+ (NORMAL); Macrocytosis 1+ (NORMAL); Microcytosis 2+ (NORMAL); Platelet Estimate Adequate (Adequate)
[2023-08-24 07:30] LABS: Schistocytes None Seen (NORMAL); Target Cells 1+ (NORMAL)
[2023-08-24] MEDS: BUDESONIDE RESPULE NEB 0.5 MG/2 ML AMP INHALATION ×2 (07:58→19:38)
[2023-08-24] MEDS: busPIRone HCL 5 MG TABLET PO ×2 (08:40→21:15)
[2023-08-24] MEDS: MIDODRINE HCL 2.5 MG TABLET 5 MG PO ×3 (08:40→17:20)
[2023-08-24] MEDS: methylPREDNISolone SOD SUCC 40 MG VIAL 20 MG IV PUSH ×2 (08:40→21:16)
[2023-08-24] MEDS: FLUoxetine HCL 20 MG CAPSULE 40 MG PO (08:40)
[2023-08-24] MEDS: PANTOPRAZOLE SODIUM IV 40 MG VIAL IV PUSH (08:41)
--- NOTE | 2023-08-24 09:26 | PCRCNOTE ---
RT assisted with Intubation. Patient intubated with size 7.5 ETT at 21 cm at lip. CO2 detected color change, Bilat BS heard, CXR ordered. ETT secured at 21 cm at lip via ETT centeno. RT placed patient on Vent according to Dr. Houston steward.
[2023-08-24] MEDS: RAPID SEQUENCE INTUBATION KIT 1 EACH (09:36)
[2023-08-24] MEDS: FENTANYL 2,500MCG/NS250ML(*CRX 2,500 MCG/250 ML BAG IV CONT (09:43)
[2023-08-24] MEDS: MIDAZOLAM 100MG/NS 100ML(*CRX) 100 MG/100 ML BAG IV CONT (09:44)
[2023-08-24] MEDS: ETOMIDATE 20 MG/10 ML AMPUL 15 MG IV PUSH (09:45)
[2023-08-24] MEDS: MINERAL OIL/WHITE PETROLATUM OINTMENT 1 APPLIC EACH EYE ×2 (09:45→21:17)
[2023-08-24] MEDS: NOREPINEPHRINE 8 MG/D5W 250 ML 8 MG/250 ML BAG 9.38 MG IV CONT (10:00)
[2023-08-24] MEDS: ALBUTEROL SULFATE NEB 2.5 MG/3 ML INH 15 MG (10:44)
[2023-08-24] MEDS: ALBUTEROL SULFATE NEB 2.5 MG/3 ML INH 15 MG INHALATION (10:44)
[2023-08-24 11:16] LABS: Alveolar/Arterial O2 Gradient 218.6 mmHg; Base Excess ABG 16.2 mEq/l (+/-2.0); Carboxyhemoglobin 0.3 % THb (0-2.0); Fractional Inspired Oxygen 50 %; Methemoglobin ABG 0.1 %THb (0-1.5); Oxygen Content ABG 14.5 %vol (16.0-22.0); Oxygen Saturation ABG 95.2 % (95.0-100.0); Oxyhemoglobin 95.1 % THb (90.0-100.0); PCO2 ABG 57.7 mmHg (35.0-45.0); PO2 FiO2 Ratio Arterial Blood 1.46 %; Reduced Hemoglobin 4.5 %THb (0-5.0); Total Hemoglobin 10.8 g/dL (12.0-18.0)
[2023-08-24 11:17] LABS: Device VENTILATOR; Site Drawn RIGHT BRACHIAL
[2023-08-24 11:18] LABS: Arterial Blood Gas PEEP 5 cmH2O; Arterial Blood Gas Tidal Volume 300 ml; Arterial Blood Gas Vent Mode CMV; Arterial Blood Gas Ventilator rate 18 /MIN
--- NOTE | 2023-08-24 11:51 | PCFNICU ---
ICU Rounding Note: Pt current nutrition is Vital 1.2 @ 45 ml/h with flushes 30 ml q 4 h. Nutrition recommendation: Continue with same tube feeding regimen. Agree with orders. Last recorded weight is 36.7 kg. Bowel Motility: +2 BMs 08/23/23 Labs Reviewed: Hgb 8.5, Hct 29.1, Alb 3.1, Na 126, Cre 0.3, Glu 140 Meds Noted: fentanyl, versed, levophed, vancomycin Skin: WNL Additional Notes: Re-intubated, family is currently declining trach. Still awaiting possible transfer to [facility]. Continue current tube feeding order. Tolerating tube feedings well. Following daily in ICU rounds. Will monitor weight, labs, skin, tube feedings tolerance every Thursday and Thursday..
[2023-08-24] MEDS: levoFLOXacin 750 MG/D5W 150 ML 750 MG/150 ML BAG 100 MG IVPB (12:05)
[2023-08-24] MEDS: ENOXAPARIN 40 MG/0.4 ML SYRINGE SUB-Q (12:05)
--- NOTE | 2023-08-24 14:56 | WPDPROCEDUR ---
Procedures Intubation Intubation Date: 08/24/23 Intubation Time: 09:15 Consent: Consent was obtained from the patient, so had a talk with Nabila on 08/23/2023 wanted the patient to be intubated A pre-procedural Time-Out was completed immediately before starting the procedure and confirmed: Patient Identification, Site, Procedure, Patient Position and the Availability of Requisite Equipment: Yes Sedative: etomidate Paralytic: rocuronium Laryngoscope: fiber optic video scope ET tube size: 7.5 Tube secured depth (cm): 21 Tube secured location: lips Tube placement confirmation: visualized tube passing through cords, equal breath sounds bilaterally, no breath sounds over epigastrium and confirmation by capnometry Patient tolerated procedure: well Intubation complications: none Additional comments: Chest x-ray showed ET tube in good position
--- NOTE | 2023-08-24 14:58 | WPDINTPN ---
Progress Note: A&P Assessment and Plan (1) Acute on chronic respiratory failure with hypoxia and hypercapnia: Code(s): J96.21 - Acute and chronic respiratory failure with hypoxia; J96.22 - Acute and chronic respiratory failure with hypercapnia Status: Acute Assessment and Plan: Patient presented with shortness of breath likely secondary to panic attack, COPD exacerbation. Was found to have respiratory acidosis in the ER on her ABGs, was placed on BiPAP, patient tired out and was requesting intubation -08/19: Patient intubated in the ER -08/22: extubated -08/24: Re-intubated, secondary to hypercapnic and hypoxic respiratory failure ABGs this morning, chest x-ray was worsened, patient had agonal breathing with respiratory distress and use of accessory muscles. -continue bronchodilators -continue Pulmicort -post intubation ABGs and chest x-ray reviewed, ventilator adjusted -patient did diurese well for the last 2 days, will hold diuresis at this time as patient did drop her blood pressures and was restarted on Levophed (2) Septic shock: Code(s): A41.9 - Sepsis, unspecified organism; R65.21 - Severe sepsis with septic shock Status: Acute Assessment and Plan: Patient dropped her blood pressures post intubation, could be related to positive pressure ventilation and or infection -lactic acids were normal, -leukocytosis has resolved - Continue cefepime (08/19), start Levaquin (08/24) for healthcare associated pneumonia, -08/24 Discontinued vancomycin (patient was discharged from [facility] 1 day prior to admission here at [facility]) -patient has received adequate amount of IV fluids -08/24: Patient started on Levophed post intubation as she dropped pressures, maintain MAP > 65 mmHg -08/19: Blood cultures: Preliminary results are negative x2 -08/20: Sputum cultures yeast isolated - Patient on midodrine at home, will continue (3) Acute exacerbation of chronic obstructive pulmonary disease: Code(s): J44.1 - Chronic obstructive pulmonary disease with (acute) exacerbation Status: Acute Assessment and Plan: Respiratory distress and respiratory failure likely related COPD exacerbation, panic attacks -continue mechanical ventilation, bronchodilators -wean off Solu-Medrol (4) Acute hyponatremia: Code(s): E87.1 - Hypo-osmolality and hyponatremia Status: Acute Assessment and Plan: Patient with hyponatremia likely related to alcohol use -sodium levels fluctuating, -continue to monitor (5) Anxiety: Code(s): F41.9 - Anxiety disorder, unspecified Status: Acute Assessment and Plan: Continue her home alprazolam and fluoxetine -increased her alprazolam to q.8 hours -08/23: discuss with Dr. Haro, recommended starting BuSpar. Continue BuSpar 5 mg p.o. q.12 hours (6) Nonischemic cardiomyopathy: Code(s): I42.8 - Other cardiomyopathies Status: Chronic Assessment and Plan: 07/20/2023: Echocardiogram ?1. Complete two-dimensional, color flow and Doppler transthoracic echocardiogram is performed. ? 2. Normal left ventricular dimension with vigorous, almost hyperdynamic systolic function. Left ventricular systolic function is normal, estimated at 60-65%. ? 3. Mildly sclerotic but nonstenotic aortic valve. ? 4. Compared to echocardiogram from March of 2022, ejection fraction has increased/normalized. ? Plan DVT prophylaxis: Lovenox Stress ulcer prophylaxis: Protonix Nutrition: Restarted tube feeds Code Status: Full code Critical Care Time Spent: 45 minutes 08/24: Discussed with [facility] MICU fellow, for a Q 48 hour physician to physician discussion and update. Patient still on the day waiting list and will transfer to [facility] ICU once they have a bed available. 08/23: Patient has been very anxious through the night with panic attacks, requiring high-flow therapy this mo
--- NOTE | 2023-08-24 16:47 | PCOTNOTE ---
Pt. is currently intubated. Not able to participate in therapy services at this time. Re-order when pt. safe to participate in therapy services.
--- NOTE | 2023-08-24 17:09 | PCPTNOTE ---
Pt. is currently intubated. Re-order when pt. safe to participate in therapy services.
--- NOTE | 2023-08-24 20:45 | PC.NURSE ---
Germaine Valadez ([phone]) called stating she is pt's sister. Staff instructed Germaine that she is not on the pt's list to receive information. Call placed to pt's son, Lino PHILLIP, to see if Germaine can be added to the list. Awaiting return call.
[2023-08-25] VITALS (16 sets, daily range): BP systolic 77–103; BP diastolic 46–66; PULSE 81–94; RESP 16–18; TEMP 37.1–37.3; O2SAT 96–100
[2023-08-25] MEDS: ALBUTEROL SULFATE NEB 2.5 MG/3 ML INH INHALATION ×2 (02:17→06:57)
[2023-08-25] MEDS: IPRATROPIUM BR 0.02% INH SOLN 0.5 MG/2.5 ML VIAL INHALATION ×2 (02:17→06:57)
--- NOTE | 2023-08-25 03:58 | PC.NURSE ---
Left message for pt's son, Lino PHILLIP, to call unit to discuss possible transfer. Pt was accepted to [facility] rm 423-1. Dr. Pro is accepting physician. Report to be called to [phone] once transfer is discussed with pt's family.
[2023-08-25 04:58] LABS: Alveolar/Arterial O2 Gradient 135.3 mmHg; Base Excess ABG 17.5 mEq/l (+/-2.0); Carboxyhemoglobin 0.3 % THb (0-2.0); Fractional Inspired Oxygen 35 %; HCO3 ABG 41.8 mEq/l (22.0-26.0); Methemoglobin ABG 0.3 %THb (0-1.5); Oxygen Content ABG 13.3 %vol (16.0-22.0); Oxygen Saturation ABG 92.9 % (95.0-100.0); Oxyhemoglobin 91.5 % THb (90.0-100.0); PCO2 ABG 48.4 mmHg (35.0-45.0); PO2 FiO2 Ratio Arterial Blood 1.66 %; Reduced Hemoglobin 7.9 %THb (0-5.0); Total Hemoglobin 10.3 g/dL (12.0-18.0)
[2023-08-25 04:59] LABS: Site Drawn RIGHT BRACHIAL; pH ABG 7.554 (7.350-7.450)
[2023-08-25 05:00] LABS: Arterial Blood Gas PEEP 5 cmH2O; Arterial Blood Gas Tidal Volume 300 ml; Arterial Blood Gas Vent Mode CMV; Arterial Blood Gas Ventilator rate 18 /MIN; Device VENTILATOR
--- NOTE | 2023-08-25 05:12 | PC.NURSE ---
Report called to RAHUL De La Cruz at [facility].
[2023-08-25 05:26] LABS: Eosinophils Percent Auto 0.1 % (0-4.4); Hematocrit 27.4 % (37.0-47.0); Hemoglobin 8.6 g/dL (12.0-15.0); Immature Granulocyte Absolute 0.05 K/mm3 (0.00-0.031); Immature Granulocyte Percent A 0.4 % (0-0.5); Lymphocytes Absolute Auto 0.55 K/mm3 (0.9-3.2); Lymphocytes Percent Auto 4.3 % (18.3-44.2); Mean Corpuscular HGB Conc 31.4 g/dl (32-36); Mean Corpuscular Hemoglobin 31.3 pg (26-34); Mean Corpuscular Volume 99.6 fl (80-100); Mean Platelet Volume 8.8 fl (7.4-10.4); Monocytes Absolute Auto 0.8 K/mm3 (0.1-0.6); Monocytes Percent Auto 6.2 % (2.6-8.5); Neutrophils Absolute Auto 11.4 K/mm3 (1.3-6.7); Platelet Count Result 306 k/mm3 (150-375); Red Blood Count 2.75 M/mm3 (4.2-5.4); Red Cell Distribution Width 14.3 % (11.5-14.5); White Blood Count 12.8 K/mm3 (4.5-10.0)
[2023-08-25] MEDS: CEFEPIME 2 GM/NS 50 ML 2 GM/50 ML BAG IVPB (05:27)
[2023-08-25] MEDS: ALPRAZolam (*CRX) 0.5 MG TABLET PO (05:27)
[2023-08-25] MEDS: CENTRAL LINE FLUSH 10 ML IV PUSH (05:28)
[2023-08-25 06:00] LABS: Alanine Aminotransferase 15 U/L (6-35); Albumin Level 2.8 g/dL (3.5-5.1); Alkaline Phosphatase 61 U/L (38-126); Aspartate Amino Transferase 24 U/L (14-36); Bilirubin,Total 0.5 mg/dL (0.2-1.3); Blood Urea Nitrogen 13 mg/dL (7-17); Calcium 8.2 mg/dL (8.4-10.2); Carbon Dioxide > 40 mmol/L (22-30); Chloride 82 mmol/L (98-107); Estimated CRCL calculation 93 ml/min; Estimated Glomerular Filt Rate > 60; Glucose 132 mg/dL (65-110); Magnesium 1.8 mg/dL (1.6-2.3); Phosphorus 2.1 mg/dL (2.5-4.5); Potassium 3.1 mmol/L (3.4-5.0); Sodium 127 mmol/L (137-145)
[2023-08-25] MEDS: BUDESONIDE RESPULE NEB 0.5 MG/2 ML AMP INHALATION (06:57)
[2023-08-25] MEDS: busPIRone HCL 5 MG TABLET PO (07:43)
[2023-08-25] MEDS: FLUoxetine HCL 20 MG CAPSULE 40 MG PO (07:43)
[2023-08-25] MEDS: MIDODRINE HCL 2.5 MG TABLET 5 MG PO (07:43)
[2023-08-25] MEDS: MINERAL OIL/WHITE PETROLATUM OINTMENT 1 APPLIC EACH EYE (07:44)
[2023-08-25] MEDS: POTASSIUM CHLORIDE 20 MEQ PACKET (FOR LIQUID) 40 MEQ FEED TUBE (07:44)
[2023-08-25] MEDS: methylPREDNISolone SOD SUCC 40 MG VIAL 20 MG IV PUSH (07:44)
[2023-08-25] MEDS: ENOXAPARIN 40 MG/0.4 ML SYRINGE SUB-Q (07:44)
[2023-08-25] MEDS: PANTOPRAZOLE SODIUM IV 40 MG VIAL IV PUSH (07:44)
--- NOTE | 2023-08-25 09:48 | PC.NURSE ---
Addendum entered by Esme Andersen RN 08/25/23 10:21: Fentanyl, Versed, and Levophed drips sent with pt. Sanchez catheter, RIJ, ETT, and NG tube in place at time of transfer. Original Note: Pt transferred to [facility] room 423-1 via [facility]. [facility] notified of pt leaving.
--- NOTE | 2023-08-25 09:59 | WPDINTPN ---
Progress Note: A&P Assessment and Plan (1) Acute on chronic respiratory failure with hypoxia and hypercapnia: Code(s): J96.21 - Acute and chronic respiratory failure with hypoxia; J96.22 - Acute and chronic respiratory failure with hypercapnia Status: Acute Assessment and Plan: Patient presented with shortness of breath likely secondary to panic attack, COPD exacerbation. Was found to have respiratory acidosis in the ER on her ABGs, was placed on BiPAP, patient tired out and was requesting intubation -08/19: Patient intubated in the ER -08/22: extubated -08/24: Re-intubated, secondary to hypercapnic and hypoxic respiratory failure ABGs this morning, chest x-ray was worsened, patient had agonal breathing with respiratory distress and use of accessory muscles. -continue bronchodilators -continue Pulmicort -post intubation ABGs and chest x-ray reviewed, ventilator adjusted -patient did diurese well for the last 2 days, will hold diuresis at this time as patient did drop her blood pressures and was restarted on Levophed PATIENT HAS A BED AT [facility] AND WILL BE TRANSFERRED TODAY (2) Septic shock: Code(s): A41.9 - Sepsis, unspecified organism; R65.21 - Severe sepsis with septic shock Status: Acute Assessment and Plan: Patient dropped her blood pressures post intubation, could be related to positive pressure ventilation and or infection -lactic acids were normal, -leukocytosis has resolved - Continue cefepime (08/19), start Levaquin (08/24) for healthcare associated pneumonia, -08/24 Discontinued vancomycin (patient was discharged from [facility] 1 day prior to admission here at [facility]) -patient has received adequate amount of IV fluids -08/24: Patient started on Levophed post intubation as she dropped pressures, maintain MAP > 65 mmHg -08/19: Blood cultures: Preliminary results are negative x2 -08/20: Sputum cultures yeast isolated - Patient on midodrine at home, will continue (3) Acute exacerbation of chronic obstructive pulmonary disease: Code(s): J44.1 - Chronic obstructive pulmonary disease with (acute) exacerbation Status: Acute Assessment and Plan: Respiratory distress and respiratory failure likely related COPD exacerbation, panic attacks -continue mechanical ventilation, bronchodilators -wean off Solu-Medrol (4) Acute hyponatremia: Code(s): E87.1 - Hypo-osmolality and hyponatremia Status: Acute Assessment and Plan: Patient with hyponatremia likely related to alcohol use -sodium levels fluctuating, -continue to monitor (5) Anxiety: Code(s): F41.9 - Anxiety disorder, unspecified Status: Acute Assessment and Plan: Continue her home alprazolam and fluoxetine -increased her alprazolam to q.8 hours -08/23: discuss with Dr. Haro, recommended starting BuSpar. Continue BuSpar 5 mg p.o. q.12 hours (6) Nonischemic cardiomyopathy: Code(s): I42.8 - Other cardiomyopathies Status: Chronic Assessment and Plan: 07/20/2023: Echocardiogram ?1. Complete two-dimensional, color flow and Doppler transthoracic echocardiogram is performed. ? 2. Normal left ventricular dimension with vigorous, almost hyperdynamic systolic function. Left ventricular systolic function is normal, estimated at 60-65%. ? 3. Mildly sclerotic but nonstenotic aortic valve. ? 4. Compared to echocardiogram from March of 2022, ejection fraction has increased/normalized. ? Plan DVT prophylaxis: Lovenox Stress ulcer prophylaxis: Protonix Nutrition: Restarted tube feeds Code Status: Full code Critical Care Time Spent: 34 minutes 08/25/2023: PATIENT HAS A BED AVAILABLE AT [facility] IS GOING TO BE TRANSFERRED I WRITE THIS NOTE. 08/24: Discussed with [facility] MICU fellow, for a Q 48 hour physician to physician discussion and update. Patient still
--- NOTE | 2023-08-25 10:23 | PC.NURSE ---
Lino PHILLIP, notified of transfer to [facility].
--- NOTE | 2023-09-18 11:25 | PM.TDS ---
Transfer Discharge Sum: Prov Provider Date of admission: 08/19/23 21:36 Primary care physician: Kristian Escobar MD Admitting clinician: Jeniffer Flores MD Consults: 08/19/23 21:02 Consult to Physician Routine Comment: Consulting Provider: Saurabh Conrad Reason for consultation: Acute respiratory failure, sepsis Has provider been notified: Yes Anticipated date of transfer: 08/25/23 Receiving physician/facility: [facility] Accepting physician Dr. Dutton DS: Admitting Diagnosis Discharge Date 08/25/23 Admitting Diagnosis Acute respiratory failure requiring intubation in the ER on 08/19/2023, COPD exacerbation, sepsis, pneumonia, hyponatremia DS: Discharge Diagnosis Discharge Diagnosis (1) Acute on chronic respiratory failure with hypoxia and hypercapnia: Code(s): J96.21 - Acute and chronic respiratory failure with hypoxia; J96.22 - Acute and chronic respiratory failure with hypercapnia Status: Acute Assessment and Plan: Patient presented with shortness of breath likely secondary to panic attack, COPD exacerbation. Was found to have respiratory acidosis in the ER on her ABGs, was placed on BiPAP, patient tired out and was requesting intubation -08/19: Patient intubated in the ER -08/22: extubated -08/24: Re-intubated, secondary to hypercapnic and hypoxic respiratory failure ABGs this morning, chest x-ray was worsened, patient had agonal breathing with respiratory distress and use of accessory muscles. -continue bronchodilators -continue Pulmicort -post intubation ABGs and chest x-ray reviewed, ventilator adjusted -patient did diurese well for the last 2 days, will hold diuresis at this time as patient did drop her blood pressures and was restarted on Levophed PATIENT HAS A BED AT [facility] AND WILL BE TRANSFERRED TODAY on 08/25/2023 (2) Septic shock: Code(s): A41.9 - Sepsis, unspecified organism; R65.21 - Severe sepsis with septic shock Status: Acute Assessment and Plan: Patient dropped her blood pressures post intubation, could be related to positive pressure ventilation and or infection -lactic acids were normal, -leukocytosis has resolved - Continue cefepime (08/19), start Levaquin (08/24) for healthcare associated pneumonia, -08/24 Discontinued vancomycin (patient was discharged from [facility] 1 day prior to admission here at [facility]) -patient has received adequate amount of IV fluids -08/24: Patient started on Levophed post intubation as she dropped pressures, maintain MAP > 65 mmHg -08/19: Blood cultures: Preliminary results are negative x2 -08/20: Sputum cultures yeast isolated - Patient on midodrine at home, will continue (3) Acute exacerbation of chronic obstructive pulmonary disease: Code(s): J44.1 - Chronic obstructive pulmonary disease with (acute) exacerbation Status: Acute Assessment and Plan: Respiratory distress and respiratory failure likely related COPD exacerbation, panic attacks -continue mechanical ventilation, bronchodilators -wean off Solu-Medrol (4) Acute hyponatremia: Code(s): E87.1 - Hypo-osmolality and hyponatremia Status: Acute Assessment and Plan: Patient with hyponatremia likely related to alcohol use -sodium levels fluctuating, -continue to monitor (5) Anxiety: Code(s): F41.9 - Anxiety disorder, unspecified Status: Acute Assessment and Plan: Continue her home alprazolam and fluoxetine -increased her alprazolam to q.8 hours -08/23: discuss with Dr. Haro, recommended starting BuSpar. Continue BuSpar 5 mg p.o. q.12 hours (6) Nonischemic cardiomyopathy: Code(s): I42.8 - Other cardiomyopathies Status: Chronic Assessment and Plan: 07/20/2023: Echocardiogram ?1. Complete two-dimensional, color flow and Doppler transthoracic echocardiogram is performed. ?
== END 2023-08-25 09:47 | disposition short-term general hospital (02) | DRG 871 ==
LOC: ANHED 21:03 → ANHICU 21:22
PROVIDERS: Internal Medicine; Preventive Medicine Aerospace Medicine; Admitting Provider Student in an Organized Health Care Education/Training Program; Emergency Provider Physician Assistant; PCP Family Medicine; Visit Provider Hospitalist
DX: A41.9 Sepsis, unspecified organism (principal); J18.9 Pneumonia, unspecified organism; J96.21 Acute and chronic respiratory failure with hypoxia; J96.22 Acute and chronic respiratory failure with hypercapnia; R65.21 Severe sepsis with septic shock; J44.0 Chronic obstructive pulmonary disease with (acute) lower respiratory infection; E87.1 Hypo-osmolality and hyponatremia; I42.0 Dilated cardiomyopathy; J44.1 Chronic obstructive pulmonary disease with (acute) exacerbation; E44.1 Mild protein-calorie malnutrition; Z68.1 Body mass index [BMI] 19.9 or less, adult; I50.9 Heart failure, unspecified; E55.9 Vitamin D deficiency, unspecified; D51.9 Vitamin B12 deficiency anemia, unspecified; K70.10 Alcoholic hepatitis without ascites; K70.30 Alcoholic cirrhosis of liver without ascites; K21.9 Gastro-esophageal reflux disease without esophagitis; M81.0 Age-related osteoporosis without current pathological fracture; R79.89 Other specified abnormal findings of blood chemistry; Y95 Nosocomial condition; F41.0 Panic disorder [episodic paroxysmal anxiety]; F10.10 Alcohol abuse, uncomplicated; F41.1 Generalized anxiety disorder; Z20.822 Contact with and (suspected) exposure to COVID-19; Z87.891 Personal history of nicotine dependence; Z99.81 Dependence on supplemental oxygen
CPT/HCPCS: 31500; 36415; 36556; 36600; 71045; 71275; 74177; 80048; 80053; 80202; 81001; 82375; 82805; 83050; 83605; 83735; 83880; 83930; 83935; 84100; 84300; 84484; 85025; 85610; 85730; 87040; 87070; 87205; 87636; 87641; 92610; 93005; 94002; 94003; 94640; 96361; 96365; 96366; 96367; 96368; 96375; 99291; A9270; C1751; C9113; J0330; J0692; J1120; J1650; J1940; J1956; J2060; J2250; J2270; J2920; J2930; J3010; J3370; J3475; J3480; J7030; Q9967

== ENCOUNTER 2023-10-23 03:44 | Inpatient (IN) | payer MEDICARE, MEDICAID, SELFPAY ==
[2023-10-23] VITALS (27 sets, daily range): BP systolic 92–132; BP diastolic 57–75; PULSE 77–130; RESP 15–24; TEMP 36–36.8; O2SAT 94–100; BMI 11.7
--- NOTE | ~2023-10-23 | XR_ITS ---
XR chest 1V portable DATE: 10/24/2023 05:52 INDICATION: Respiratory failure TECHNIQUE: Portable upright AP chest on 10/24/2023 0519 hours COMPARISON: 10/23/2023 AP and lateral chest FINDINGS: Bilateral moderate hyperinflation and bullae consistent with bullous emphysema, likely tear down man kem pulmonary interstitial fibrotic changes. Bilateral sutures of the upper lung zones consistent wit h bilateral upper lung surgical resections. No pulmonary infiltrate or consolidation, pulmonary vascular congestion or pleural effusion or pneumo thorax. Diffuse osteopenia. IMPRESSION: Bullous emphysema, chronic bilateral interstitial fibrotic changes Postoperative change of the lungs Reviewed, dictated and finalized at location A. TIENT CODER
--- NOTE | ~2023-10-23 | XR_ITS ---
Clinical Indication: Shortness of breath AP and lateral views of the chest: Comparison: 08/25/2023 Findings: There is probable advanced COPD pattern of the lungs. Probable minimal chronic blunting lef t costophrenic angle. No definite acute pulmonary pathology seen. Cardiomediastinal silhouette is wit hin normal limits. There is compression fracture of T6. Impression: No definite acute pulmonary pathology. Severe COPD/emphysema. T6 compression fracture. Reviewed, dictated and finalized at location . DROPPER Impression: No definite acute pulmonary pathology. Severe COPD/emphysema. T6 compression fracture.
--- NOTE | 2023-10-23 03:49 | ECG_ITS ---
Measurements Intervals [place] Rate: 127 P: 87 AK: 112 QRS: 78 QRSD: 86 T: 90 QT: 335 QTc: 487 Interpretive Statements SINUS TACHYCARDIA WITH SHORT AK INTERVAL BORDERLINE R WAVE PROGRESSION, ANTERIOR LEADS MINIMAL Q WAVES- ANTEROLAT/INF LEADS NONSPECIFIC T-WAVE ABNORMALITY- HIGH LATERAL LEADS BASELINE ARTIFACT- II, III, AVF, V1, V3-V5 ABNORMAL ECG COMPARED TO ECG 08/19/2023 14:18:33 NO SIGNIFICANT CHANGES Electronically Signed On 10-23-2023 6:45:53 DEBURRER MACHINE by Quinton Bell D.O.
[2023-10-23 04:17] LABS: Basophils Percent Auto 0.5 % (0.2-1.2); Eosinophils Absolute Auto 0.2 K/mm3 (0-0.3); Eosinophils Percent Auto 2.4 % (0-4.4); Hemoglobin 10.8 g/dL (12.0-15.0); Immature Granulocyte Absolute 0.01 K/mm3 (0.00-0.031); Immature Granulocyte Percent A 0.1 % (0-0.5); Lymphocytes Absolute Auto 1.16 K/mm3 (0.9-3.2); Lymphocytes Percent Auto 14.8 % (18.3-44.2); Mean Corpuscular HGB Conc 29.2 g/dl (32-36); Mean Corpuscular Hemoglobin 28.6 pg (26-34); Mean Corpuscular Volume 97.9 fl (80-100); Mean Platelet Volume 9.2 fl (7.4-10.4); Monocytes Absolute Auto 0.6 K/mm3 (0.1-0.6); Monocytes Percent Auto 8.2 % (2.6-8.5); Neutrophils Absolute Auto 5.8 K/mm3 (1.3-6.7); Platelet Count Result 283 k/mm3 (150-375); Red Blood Count 3.78 M/mm3 (4.2-5.4); Red Cell Distribution Width 14.9 % (11.5-14.5); White Blood Count 7.8 K/mm3 (4.5-10.0)
[2023-10-23 04:38] LABS: Hypochromasia 1+ (NORMAL); Platelet Estimate Adequate (Adequate)
[2023-10-23 04:39] LABS: Anisocytosis 2+ (NORMAL); Microcytosis 1+ (NORMAL); Schistocytes None Seen (NORMAL)
[2023-10-23 05:08] LABS: Alanine Aminotransferase 14 U/L (6-35); Albumin Level 3.6 g/dL (3.5-5.1); Alkaline Phosphatase 118 U/L (38-126); Aspartate Amino Transferase 34 U/L (14-36); Bilirubin,Total 0.3 mg/dL (0.2-1.3); Blood Urea Nitrogen 4 mg/dL (7-17); Calcium 8.6 mg/dL (8.4-10.2); Carbon Dioxide > 40 mmol/L (22-30); Chloride 85 mmol/L (98-107); Estimated CRCL calculation 59 ml/min; Estimated Glomerular Filt Rate > 60; Glucose 159 mg/dL (65-110); Potassium 3.6 mmol/L (3.4-5.0); Sodium 135 mmol/L (137-145)
[2023-10-23] MEDS: methylPREDNISolone SOD SUCC 125 MG VIAL IV PUSH (06:19)
--- NOTE | 2023-10-23 06:23 | ED.SOB ---
HPI - SOB/Dyspnea General Chief Complaint: Shortness of Breath/Dyspnea Stated Complaint: DIFFICULTY IN BREATHING X 1 DAY Time Seen by Provider: 10/23/23 05:10 Source: patient Limitations: clinical condition History of Present Illness HPI Narrative: Patient presents to the emergency department complaining of shortness of breath for the past 1 day. Remainder of history is limited secondary to clinical condition. Related Data Home Medications Medication Instructions Recorded Confirmed fluoxetine 20 mg capsule 40 mg PO DAILY 01/19/23 08/19/23 alprazolam 0.5 mg tablet 0.5 mg PO BID 08/19/23 08/19/23 fluticasone fur. 100 mcg-umeclid 1 inh inhalation DAILY 08/19/23 08/19/23 62.5 mcg-vilant 25 mcg inhalat.powder (Trelegy Ellipta) Allergies Allergy/AdvReac Type Severity Reaction Status Date / Time No Known Allergies Allergy Verified 10/23/23 03:48 Review of Systems Review of Systems: ROS unobtainable: Yes unobtainable due to medical condition PMFSH Past Medical History Medical History Abnormal EKG EKG has previously shown ST elevation which appears to be early repolarization. Alcohol abuse Anxiety Asthma B12 deficiency anemia Chronic anemia Chronic hyponatremia Chronic respiratory failure with hypoxia and hypercapnia On Trelegy unit at nighttime. However the patient is noncompliant 3 L nasal cannula during the day. Closed traumatic nondisplaced fracture of proximal end of right humerus Cognitive impairment COPD with emphysema COVID-19 (~11/2022) Fracture of distal phalanx of ring finger Gastroesophageal reflux disease Generalized anxiety disorder with panic attacks Osteoporosis Protein-calorie malnutrition, severe Pulmonary cachexia due to chronic obstructive pulmonary disease Right hand fracture Secondary nonischemic congestive cardiomyopathy With ejection fraction of 40-45%, diastolic dysfunction grade 1, mid inferior wall, mid anterior wall, mid in for septal wall mid anterior lateral wall, basal apical septum and mid inferior wall hypokinesis on echocardiogram 03/2022 Spontaneous pneumothorax (08/2012) Several pneumothoraces status post VATS procedure and apical blebectomy as well as pleurodesis. Tobacco abuse Quit in 2019 per patient report. Vitamin D deficiency Surgical History Surgical History History of bilateral tubal ligation History of section History of hip surgery (07/2019) ORIF of right femur fracture. History of tonsillectomy Status post thoracotomy Left-sided VATS procedure and apical bleb resection with pleurodesis. Family History Family History Father Acute myocardial infarction Mother Chronic obstructive pulmonary disease Social History Social History Social History: The patient had 3 sons but one from drug overdose. Patient is an alcoholic. When asked how much she drinks she states ?not enough.? Upon further questioning the patient the does admit that she drinks at least 6-12 pack per day. She is still adamant that she quit smoking. When we try to further delineate when she quit smoking she cannot provide specifics. One provider documents that she quit smoking in 2020. She has a [employer] [facility]. She lives with her son. Code status: Full code. Surrogate medical decision maker: Ex- Neo Brooke or Manish Gardner, brother. Smoking packs per day: 1 Smoking cigarettes per day: 20.0 Years smoked: 40 Smoking pack-years: 40.00 Smoking status: Former smoker Second hand tobacco smoke exposure: Yes Alcohol intake: current Drinks per week: 6 Alcohol use details: Heavier drinker in the past. Substance use: former Substance use type: does not use Lack of Transportation: No Lack of Food: Never Tr
--- NOTE | 2023-10-23 06:24 | PC.NURSE ---
EDP Dr. Josue came out of room 8 and requested RT. Nursing staff called RT via eROI and proceeded to go into room 8 to assist. Upon arriving in room 8 the patient was having shallow breathing and a BVM was placed on patient as the patient was having shallow breathing and not responsive. EDP Dr. Josue ordered 125mg Solu-Medrol IVP for the patient. After BVM and Solu-Medrol was given the patient began to become more responsive. RT arrived at bedside and patient was placed on Bi-Pap.
[2023-10-23] MEDS: ALBUTEROL SULFATE NEB 2.5 MG/3 ML INH 10 MG INHALATION (06:35)
[2023-10-23] MEDS: ALBUTEROL SULFATE NEB 2.5 MG/3 ML INH (06:35)
[2023-10-23] MEDS: ALBUTEROL SULFATE NEB 2.5 MG/3 ML INH 7.5 MG (06:35)
[2023-10-23] MEDS: IPRATROPIUM BR 0.02% INH SOLN 0.5 MG/2.5 ML VIAL (06:35)
[2023-10-23 06:53] LABS: Magnesium 1.9 mg/dL (1.6-2.3)
[2023-10-23 06:58] LABS: Fractional Inspired Oxygen 32 %; HCO3 VBG 44.7 mEq/l (24.0-30.0); PO2 VBG 101.4 mmHg (35.0-45.0); pH VBG 7.269 (7.300-7.400)
[2023-10-23 07:01] LABS: PCO2 VBG 99.9 mmHg (42.0-48.0)
[2023-10-23 07:02] LABS: Device BIPAP; Expiratory Pressure 8 cmH2O; Inspiratory Pressure 20 cmH2O
[2023-10-23] MEDS: SODIUM CHLORIDE 0.9% IV 1,000 ML 999 ML IV CONT (07:06)
[2023-10-23 07:18] LABS: Influenza A QL RT-PCR Negative (Negative); Influenza B QL RT-PCR Negative (Negative); RSV RNA, RT-PCR Negative (Negative); SARS-CoV-2 RNA PCR Negative (Negative)
--- NOTE | 2023-10-23 07:26 | PC.NURSE ---
This RN attempted to reposition patient unsuccessfully.
[2023-10-23] MEDS: ALBUTEROL SULFATE NEB 2.5 MG/3 ML INH INHALATION ×3 (07:49→20:29)
[2023-10-23] MEDS: IPRATROPIUM BR 0.02% INH SOLN 0.5 MG/2.5 ML VIAL INHALATION ×3 (07:49→20:29)
[2023-10-23] MEDS: SODIUM CHLORIDE 0.9% IV 1,000 ML 125 ML IV CONT (08:18)
[2023-10-23 08:47] LABS: Fractional Inspired Oxygen 40 %; PO2 VBG 33.1 mmHg (35.0-45.0); pH VBG 7.316 (7.300-7.400)
[2023-10-23 08:48] LABS: PCO2 VBG 76.1 mmHg (42.0-48.0)
[2023-10-23 08:49] LABS: Device NON-INVASIVE VENT; Non-Invasive Expiratory Pressure 4 CMH2O; Non-Invasive Vent Rate 16 /MIN
--- NOTE | 2023-10-23 12:08 | PM.IMHP ---
H&P: HPI History of Present Illness Date/Time: 10/23/23 12:08 Chief Complaint: Shortness of breath Narrative: 58yo female with alcoholism, chronic respiratory failure, cognitive impairment, COPD, severe cachexia and NICMP here for shortness of breath. Patient is alert but mildly confused so history is suspect. Patient was hospitalized here on August 19 through August 25 for shortness of breath and respiratory failure. She was intubated in the emergency room admitted to the ICU. She was able to be extubated but required re-intubation. She also had septic shock from healthcare associated pneumonia. Patient was transferred to [facility] on 08/25/23. She states she was hospitalized for about 2 weeks. Unclear if she went to a rehab facility but currently patient states that she is at home with her son and ex-. She denies smoking. She denies alcohol use since discharge. She has not been rehospitalized elsewhere. Patient was doing well up until about a week prior to admission when she developed a cough productive clear sputum and shortness of breath. She denies chest pain, palpitations, fever, chills, headache, vision changes, hearing changes, odynophagia, dysphagia, nausea, vomiting, diarrhea, abdominal pain, back pain, dysuria or hematuria. She states that she has BiPAP at home that she wears 7 nights a week. She has oxygen that is blood in. She is unsure if she wears oxygen during the day. She uses nebulizer treatments 3 times a day chronically but increased frequency when she became more short of breath. Because of the worsening symptoms she presented to the emergency room for evaluation. In the emergency room, she was tachycardic at 1:30 a.m.. She 96% on nasal cannula. COVID, influenza and RSV were negative. White count and platelet count were normal. Hemoglobin 10.8 which is improved from prior. Sodium 135 with chloride of 85 a bicarb greater than 40. LFTs normal. Chest x-ray was clear of acute infiltrates but did show severe COPD and emphysema. Compression fracture of T6 noted but unclear if new or old. Patient initially was awake and alert but became obtunded. VBG 7.27/100/101 so BiPAP started. Repeat VBG better. She was given Solu-medrol, nebulizer treatments. She was admitted for further care. Called and left message with POA. Review of Systems Review of Systems: All systems reviewed & are unremarkable except as noted in HPI and below PMFSH Past Medical History Medical History Abnormal EKG EKG has previously shown ST elevation which appears to be early repolarization. Alcohol abuse Anxiety Asthma B12 deficiency anemia Chronic anemia Chronic hyponatremia Chronic respiratory failure with hypoxia and hypercapnia On Trelegy unit at nighttime. However the patient is noncompliant 3 L nasal cannula during the day. Closed traumatic nondisplaced fracture of proximal end of right humerus Cognitive impairment COPD with emphysema COVID-19 (~11/2022) Fracture of distal phalanx of ring finger Gastroesophageal reflux disease Generalized anxiety disorder with panic attacks Osteoporosis Protein-calorie malnutrition, severe Pulmonary cachexia due to chronic obstructive pulmonary disease Right hand fracture Secondary nonischemic congestive cardiomyopathy With ejection fraction of 40-45%, diastolic dysfunction grade 1, mid inferior wall, mid anterior wall, mid in for septal wall mid anterior lateral wall, basal apical septum and mid inferior wall hypokinesis on echocardiogram 03/2022 Spontaneous pneumothorax (08/2012) Several pneumothoraces status post VATS procedure and apical blebectomy as well as pleurodesis. Tobacco abuse Quit in 2020 per patient report. Vitamin D deficiency Surgical History Surgical History History of bilateral tubal ligation History of section History of hip s
--- NOTE | 2023-10-23 14:38 | ADMGEN ---
This patient, Esther Brink, was admitted to IMU Room 232-01. Patient/family oriented to hospital policies and general routines including ID bracelet, bed and alarms, visiting hours, pain management, procedures, bathroom and other care routines, personal items, smoking policy, room service/diet, and visiting hours. Information on how to activate the Rapid Response Team has been discussed. Patient/Family are encouraged to report perceived risks to care and to ask questions if they do not understand what they are told or what they should do.
[2023-10-23] MEDS: THIAMINE HCL 100 MG TABLET PO (15:06)
[2023-10-23] MEDS: FOLIC ACID 1 MG TABLET PO (15:07)
[2023-10-23] MEDS: ALPRAZolam (*CRX) 0.5 MG TABLET PO (17:33)
[2023-10-23 20:37] LABS: Glucose Point of Care 109 mg/dl (65-105)
--- NOTE | 2023-10-23 23:09 | PC.NURSE ---
patient continues to take bipap mask off during nurse shift. spoke with Dr. Serna order to obtain ABG if corrected change mask. Nurse spoke with patient to make aware.
--- NOTE | 2023-10-23 23:25 | PCRCNOTE ---
pT REMOVED BIPAP AND REFUSED TO PUT BACK ON. PT PLACED BACK ON 3 LITERS, SATS 98%
[2023-10-24] VITALS (30 sets, daily range): BP systolic 96–120; BP diastolic 50–70; PULSE 78–119; RESP 16–24; TEMP 36.4–37.1; O2SAT 97–100
[2023-10-24] MEDS: IPRATROPIUM BR 0.02% INH SOLN 0.5 MG/2.5 ML VIAL INHALATION ×4 (02:20→20:58)
[2023-10-24] MEDS: ALBUTEROL SULFATE NEB 2.5 MG/3 ML INH INHALATION ×4 (02:20→20:58)
[2023-10-24 05:19] LABS: Basophils Percent Auto 0.4 % (0.2-1.2); Eosinophils Percent Auto 0.2 % (0-4.4); Hemoglobin 9.1 g/dL (12.0-15.0); Lymphocytes Absolute Auto 0.74 K/mm3 (0.9-3.2); Lymphocytes Percent Auto 15.1 % (18.3-44.2); Mean Corpuscular HGB Conc 30.3 g/dl (32-36); Mean Corpuscular Hemoglobin 29.5 pg (26-34); Mean Corpuscular Volume 97.4 fl (80-100); Mean Platelet Volume 8.7 fl (7.4-10.4); Monocytes Absolute Auto 0.6 K/mm3 (0.1-0.6); Monocytes Percent Auto 12.1 % (2.6-8.5); Neutrophils Absolute Auto 3.5 K/mm3 (1.3-6.7); Neutrophils Percent Auto 72.2 % (45.5-73.1); Platelet Count Result 196 k/mm3 (150-375); Red Blood Count 3.08 M/mm3 (4.2-5.4); Red Cell Distribution Width 15.2 % (11.5-14.5); White Blood Count 4.9 K/mm3 (4.5-10.0)
--- NOTE | 2023-10-24 05:26 | PCRCNOTE ---
Pt refused ABG this AM
[2023-10-24 05:34] LABS: Alanine Aminotransferase 9 U/L (6-35); Albumin Level 3.2 g/dL (3.5-5.1); Alkaline Phosphatase 88 U/L (38-126); Aspartate Amino Transferase 25 U/L (14-36); Bilirubin,Total 0.3 mg/dL (0.2-1.3); Blood Urea Nitrogen 3 mg/dL (7-17); Calcium 8.9 mg/dL (8.4-10.2); Carbon Dioxide > 40 mmol/L (22-30); Chloride 93 mmol/L (98-107); Estimated CRCL calculation 74 ml/min; Estimated Glomerular Filt Rate > 60; Glucose 80 mg/dL (65-110); Magnesium 1.8 mg/dL (1.6-2.3); Phosphorus 3.6 mg/dL (2.5-4.5); Potassium 3.8 mmol/L (3.4-5.0); Sodium 133 mmol/L (137-145)
[2023-10-24] MEDS: FLUTICASONE/UMECLIDIN/VILANTER 100-62.5-25 MCG ELLIPTA 1 PUFF INHALATION (08:09)
[2023-10-24] MEDS: SODIUM CHLORIDE 0.9% IV 1,000 ML 40 ML IV CONT (08:43)
[2023-10-24] MEDS: THIAMINE HCL 100 MG TABLET PO (08:43)
[2023-10-24] MEDS: FLUoxetine HCL 20 MG CAPSULE 40 MG PO (08:43)
[2023-10-24] MEDS: ALPRAZolam (*CRX) 0.5 MG TABLET PO ×3 (08:43→16:30)
[2023-10-24] MEDS: FOLIC ACID 1 MG TABLET PO (08:43)
[2023-10-24] MEDS: predniSONE 20 MG TABLET PO (08:43)
[2023-10-24 09:09] LABS: Alveolar/Arterial O2 Gradient 56.5 mmHg; Base Excess ABG 11.3 mEq/l (+/-2.0); Fractional Inspired Oxygen 32 %; HCO3 ABG 39.4 mEq/l (22.0-26.0); Oxygen Content ABG 14.2 %vol (16.0-22.0); Oxygen Saturation ABG 95.5 % (95.0-100.0); Oxyhemoglobin 94.8 % THb (90.0-100.0); PO2 ABG 85.6 mmHg (80.0-100.0); PO2 FiO2 Ratio Arterial Blood 2.67 %; Total Hemoglobin 10.6 g/dL (12.0-18.0); pH ABG 7.346 (7.350-7.450)
[2023-10-24 09:13] LABS: PCO2 ABG 73.6 mmHg (35.0-45.0); Site Drawn RIGHT BRACHIAL
[2023-10-24 09:14] LABS: Device NASAL CANNULA; Modified Allen's Test Pass
[2023-10-24 12:17] LABS: Glucose Point of Care 101 mg/dl (65-105)
--- NOTE | 2023-10-24 13:36 | PM.IMPN ---
Progress Note: A&P Assessment and Plan (1) Acute on chronic respiratory failure with hypoxia and hypercapnia: Code(s): J96.21 - Acute and chronic respiratory failure with hypoxia; J96.22 - Acute and chronic respiratory failure with hypercapnia Status: Acute Assessment and Plan: Patient presents with SOB and found to have acute on chronic resp failure. She was admitted to IMU on BiPAP. Repeat VBG showing 7.33 on current settings. She states compliance with BiPAP at night but refusing it her. No airspace disease to suggest PNA. Suspect COPD exacerbation. She denies recent tobacco use. BiPAP resumed this morning. Stressed the benefits of compliance. Continue steroids and nebulizers. Remove BiPAP for meals. Trial off bipap in the morning. (2) CO2 narcosis: Code(s): R06.89 - Other abnormalities of breathing Status: Acute Assessment and Plan: Patient was obtunded in ED felt related to elevated PCO2. She is awake and alert now with above treatment. She does have underlying cognitive impairment. Follow (3) COPD with acute exacerbation: Code(s): J44.1 - Chronic obstructive pulmonary disease with (acute) exacerbation Status: Acute Assessment and Plan: As above. Treat with steroids and nebulizer treatments. Continue Trelegy. Wean steroids quickly. (4) Alcohol abuse: Code(s): F10.10 - Alcohol abuse, uncomplicated Status: Acute Assessment and Plan: Patient has a hx of alcohol abuse. She denies recent alcohol use but unable to verify. Continue Thiamine and folate. CIWA score is zero. (5) Pulmonary cachexia due to chronic obstructive pulmonary disease: Code(s): J44.9 - Chronic obstructive pulmonary disease, unspecified; R64 - Cachexia Status: Chronic Assessment and Plan: Chronic severe protein calorie malnutrition. Dietary consult Start PT/OT Plan DVT prophylaxis - SCDs Codes status - Full code until this can be clarified Disposition - discussed with son. Discussed options including hospice. He feels she would do well if placed in a correction. He does want to change her to DNR status. Care coordination for placement. Subjective Date/time seen: 10/24/23 13:36 Interval history: 58yo female with alcoholism, chronic respiratory failure, cognitive impairment, COPD, severe cachexia and NICMP here for shortness of breath.?? Did not wear the mask overnight per notes in the chart. Patient seems to be unaware of this. She denies CP or SOB. She feels 'fine Exam Narrative: AF 98.7 102/68 96 22 97% bipap Gen - thin female in NARD Chest - very distant breath sounds. CV - RRR S1/S2; tele showing no significant dysrhythmias Abd - soft, scaphoid, +BS, nontender Ext - no pedal edema. Psych - normal mood and affect. Patient is pleasant and cooperative. Skin - warm and dry. scant soft tissue Objective Data Vital Signs Vital Signs: Vital Signs - 24 hr 10/23/23 14:10 10/23/23 14:24 10/23/23 17:37 Temperature Pulse Rate 106 H 107 H 102 H Pulse Rate [Bilateral Pedal (Dorsalis Pedis)] Respiratory Rate 24 H 23 H 20 Blood Pressure Pulse Oximetry 94 Oxygen Delivery BiPAP Oxygen Flow Rate Fraction of Inspired Oxygen 10/23/23 16:00 10/23/23 20:08 10/23/23 14:00 Temperature 97.9 F 97.6 F Pulse Rate 103 H 98 106 H Pulse Rate [Bilateral Pedal (Dorsalis Pedis)] Respiratory Rate 22 H 24 H Blood Pressure 100/57 L 94/73 L Pulse Oximetry 100 99 Oxygen Delivery Oxygen Flow Rate Fraction of Inspired Oxygen 10/23/23 16:00 10/23/23 18:00 10/23/23 16:00 Temperature Pulse Rate 106 H 99 Pulse Rate [Bilateral Pedal (Dorsalis Pedis)] Respiratory Rate Blood Pressure Pulse Oximetry Oxygen Delivery BiPAP Oxygen Flow Rate Fraction of Inspired Oxygen 10/23/23 20:31 10/23/23 20:32 10/23/23 20:32 Temperature Pulse Rate 99 99 Pulse Rate
[2023-10-24 17:41] LABS: Glucose Point of Care 244 mg/dl (65-105)
[2023-10-25] VITALS (21 sets, daily range): BP systolic 107–121; BP diastolic 61–77; PULSE 85–106; RESP 14–21; TEMP 36.3–37.2; O2SAT 96–100
--- NOTE | 2023-10-25 01:10 | PC.NURSE ---
patient continues to refuse to wear her bipap at night. nurse made respiratory aware.
[2023-10-25] MEDS: ALBUTEROL SULFATE NEB 2.5 MG/3 ML INH INHALATION ×4 (02:32→20:28)
[2023-10-25] MEDS: IPRATROPIUM BR 0.02% INH SOLN 0.5 MG/2.5 ML VIAL INHALATION ×4 (02:32→20:28)
[2023-10-25 05:10] LABS: Hematocrit 31.7 % (37.0-47.0); Hemoglobin 9.4 g/dL (12.0-15.0); Mean Corpuscular HGB Conc 29.7 g/dl (32-36); Mean Corpuscular Hemoglobin 29.5 pg (26-34); Mean Corpuscular Volume 99.4 fl (80-100); Platelet Count Result 219 k/mm3 (150-375); Red Blood Count 3.19 M/mm3 (4.2-5.4); Red Cell Distribution Width 15.4 % (11.5-14.5); White Blood Count 6.2 K/mm3 (4.5-10.0)
[2023-10-25 05:26] LABS: Blood Urea Nitrogen 5 mg/dL (7-17); Calcium 8.4 mg/dL (8.4-10.2); Carbon Dioxide > 40 mmol/L (22-30); Chloride 89 mmol/L (98-107); Estimated CRCL calculation 102 ml/min; Estimated Glomerular Filt Rate > 60; Glucose 82 mg/dL (65-110); Potassium 3.6 mmol/L (3.4-5.0); Sodium 132 mmol/L (137-145)
--- NOTE | 2023-10-25 06:48 | PCRCNOTE ---
pt refused to wear bipap overnight. Pt only had bipap on for about an hour. Pt complains about the mask and the pressure. Pt will not tolerate it
[2023-10-25] MEDS: FLUTICASONE/UMECLIDIN/VILANTER 100-62.5-25 MCG ELLIPTA 1 PUFF INHALATION (08:43)
[2023-10-25] MEDS: predniSONE 20 MG TABLET PO (08:55)
[2023-10-25] MEDS: ALPRAZolam (*CRX) 0.5 MG TABLET PO ×3 (08:55→17:07)
[2023-10-25] MEDS: FOLIC ACID 1 MG TABLET PO (08:55)
[2023-10-25] MEDS: THIAMINE HCL 100 MG TABLET PO (08:55)
[2023-10-25] MEDS: FLUoxetine HCL 20 MG CAPSULE 40 MG PO (08:55)
--- NOTE | 2023-10-25 12:00 | PM.IMPN ---
Progress Note: A&P Assessment and Plan (1) Acute on chronic respiratory failure with hypoxia and hypercapnia: Code(s): J96.21 - Acute and chronic respiratory failure with hypoxia; J96.22 - Acute and chronic respiratory failure with hypercapnia Status: Acute Assessment and Plan: Patient presents with SOB and found to have acute on chronic respiratory failure. She was admitted to IMU on BiPAP. Repeat VBG showing 7./33 on current settings. No airspace disease to suggest PNA. Suspect COPD exacerbation and/or noncompliance with BiPAP. She denies recent tobacco use. She is refusing BiPAP here. Stressed the benefits of compliance. Continue steroids and nebulizers. (2) CO2 narcosis: Code(s): R06.89 - Other abnormalities of breathing Status: Acute Assessment and Plan: Patient was obtunded in ED felt related to elevated PCO2. She is awake and alert now with above treatment. She remains confused felt related to her underlying cognitive impairment. Follow (3) COPD with acute exacerbation: Code(s): J44.1 - Chronic obstructive pulmonary disease with (acute) exacerbation Status: Acute Assessment and Plan: As above. Started on steroids and nebulizer treatments. Continue Trelegy. Stable on her 3L and no wheezing (4) Alcohol abuse: Code(s): F10.10 - Alcohol abuse, uncomplicated Status: Acute Assessment and Plan: Patient has a hx of alcohol abuse. She denies recent alcohol use but unable to verify. Continue Thiamine and folate. No evidence of withdrawal (5) Pulmonary cachexia due to chronic obstructive pulmonary disease: Code(s): J44.9 - Chronic obstructive pulmonary disease, unspecified; R64 - Cachexia Status: Chronic Assessment and Plan: Chronic severe protein calorie malnutrition. Dietary consult Continue PT/OT Plan DVT prophylaxis - SCDs Codes status - Full code until this can be clarified Disposition - discussed with son on 10/24 by phone. Discussed options including hospice. He feels she would do well if placed in a jail. He does want to change her to DNR status which was done. Care coordination consulted for placement. Patient wants to go home but do not feel she has capacity to make informed decisions. Subjective Date/time seen: 10/25/23 12:00 Interval history: 58yo female with alcoholism, chronic respiratory failure, cognitive impairment, COPD, severe cachexia and NICMP here for shortness of breath.?? Patient wore the AVAPS for about 1 hour last night before she refused. She did wear O2 overnight. She feels 'great'. Denies CP or SOB. Eating okay. No n/v. She is alert but confused so hx suspect Review of Systems Review of Systems: ROS unobtainable: Yes unobtainable due to mental status Exam Narrative: AF 99.0 112/73 97 14 100% 3L Gen - thin female in NARD Chest - very distant but clear breath sounds. No wheezing CV - RRR S1/S2; tele showing PVCs but no significant dysrhythmias Abd - soft, scaphoid, +BS, nontender Ext - no pedal edema. severely decreased muscle mass Psych - normal mood and affect. Patient is pleasant and cooperative. Oriented x2 (location and month) Skin - warm and dry. scant soft tissue Objective Data Vital Signs Vital Signs: Vital Signs - 24 hr 10/24/23 13:54 10/24/23 13:59 10/24/23 14:02 Temperature Pulse Rate 106 H 106 H Respiratory Rate 24 H 24 H Blood Pressure Pulse Oximetry 100 100 Oxygen Delivery BiPAP BiPAP Oxygen Flow Rate Fraction of Inspired Oxygen 30 10/24/23 14:00 10/24/23 14:16 10/24/23 16:00 Temperature 98.6 F Pulse Rate 98 104 H 119 H Respiratory Rate 24 H 20 Blood Pressure 107/50 L Pulse Oximetry 100 Oxygen Delivery Oxygen Flow Rate Fraction of Inspired Oxygen 10/24/23 17:00 10/24/23 16:00 10/24/23 16:00 Temperature Pulse Rate 106 H Respiratory Rate Blood Pressure Pulse Oxime
[2023-10-25 12:04] LABS: Glucose Point of Care 122 mg/dl (65-105)
--- NOTE | 2023-10-25 14:31 | PC.NURSE ---
This patient, Esther Brink, was received from IMU on 10/25/23 at 1430. Patient/family oriented to unit policies and routines
--- NOTE | 2023-10-25 14:49 | PC.NURSE ---
This patient, Esther Brink, was transferred to [facility] on 10/25/23 at 1406. Personal belongings sent with patient. Report given to Qamar. Appropriate documentation sent with patient.
[2023-10-25 17:00] LABS: Glucose Point of Care 135 mg/dl (65-105)
[2023-10-26] VITALS (7 sets, daily range): BP systolic 103–116; BP diastolic 68–86; PULSE 72–103; RESP 18–20; TEMP 36.7–36.8; O2SAT 94–100
[2023-10-26 05:37] LABS: Glucose Point of Care 85 mg/dl (65-105)
[2023-10-26 05:37] LABS: Glucose Point of Care 87 mg/dl (65-105)
[2023-10-26] MEDS: IPRATROPIUM BR 0.02% INH SOLN 0.5 MG/2.5 ML VIAL INHALATION ×2 (07:42→13:51)
[2023-10-26] MEDS: ALBUTEROL SULFATE NEB 2.5 MG/3 ML INH INHALATION ×2 (07:42→13:51)
--- NOTE | 2023-10-26 07:42 | PCSTNOTE ---
Please refer to the Bedside Swallow Evaluation in the EMR. Please note, silent aspiration cannot be ruled out at bedside. The above pleasant and cooperative pt was seen for a swallow evaluation at bedside. The pt was positioned upright in the bed. She was alert able to follow commands. She is currently on a level 6 diet and denies dysphagia. Oral mucosa is normal/slightly dry; natural dentition is in fair condition/some missing teeth; Oral peripheral exam revealed lingual and labial structures to be normal. She was able to dry swallow on command and exhibited a strong cough and clear vocal quality. She was tested with pudding, applesauce, cracker and thin liquids. The oral stages appeared WNL. No oral leakage or pocketing was noted. During the pharyngeal stage, swallow reflex appeared prompt & laryngeal elevation adequate. No overt s/s of aspiration were exhibited; however, silent aspiration cannot ruled at bedside. General impression is normal swallow ability. Recommendation: Continue current diet. Thank you for this referral.
[2023-10-26] MEDS: THIAMINE HCL 100 MG TABLET PO (08:20)
[2023-10-26] MEDS: FLUoxetine HCL 20 MG CAPSULE 40 MG PO (08:20)
[2023-10-26] MEDS: predniSONE 20 MG TABLET PO (08:20)
[2023-10-26] MEDS: FOLIC ACID 1 MG TABLET PO (08:20)
[2023-10-26] MEDS: ALPRAZolam (*CRX) 0.5 MG TABLET PO ×2 (08:21→12:52)
[2023-10-26] MEDS: FLUTICASONE/UMECLIDIN/VILANTER 100-62.5-25 MCG ELLIPTA 1 PUFF INHALATION (10:30)
--- NOTE | 2023-10-26 13:24 | PM.DS ---
DS: Admitting Diagnosis Discharge Date 10/26/23 Admitting Diagnosis Shortness of breath DS: Discharge Diagnosis Discharge Diagnosis (1) Acute on chronic respiratory failure with hypoxia and hypercapnia: Code(s): J96.21 - Acute and chronic respiratory failure with hypoxia; J96.22 - Acute and chronic respiratory failure with hypercapnia Status: Acute (2) CO2 narcosis: Code(s): R06.89 - Other abnormalities of breathing Status: Acute (3) COPD with acute exacerbation: Code(s): J44.1 - Chronic obstructive pulmonary disease with (acute) exacerbation Status: Acute (4) Alcohol abuse: Code(s): F10.10 - Alcohol abuse, uncomplicated Status: Acute (5) Pulmonary cachexia due to chronic obstructive pulmonary disease: Code(s): J44.9 - Chronic obstructive pulmonary disease, unspecified; R64 - Cachexia Status: Chronic DS: Summary Hospital Course Reason for hospitalization: 58yo female with alcoholism, chronic respiratory failure, cognitive impairment, COPD, severe cachexia and NICMP here for shortness of breath.?Please see H&P for details. Hospital Course: Patient presents with SOB and found to have acute on chronic respiratory failure. VBG 7.27/100/101 on BiPAP. She was admitted to IMU on BiPAP. Repeat VBG showing 7.32/76/33. CXR showing no airspace disease to suggest PNA. Suspect COPD exacerbation and/or noncompliance with BiPAP. She denies recent tobacco use. Patient was obtunded in ED felt related to elevated PCO2. She is awake and alert now but remains confused felt related to her underlying cognitive impairment. For her COPD exacerbation, we started steroids and nebulizer treatments. We continued her Trelegy. Sh did well and her BiPAP was weaned to be used at sleep. Spoke with son (MARJAN) and discussed options including hospice. He wanted her to go to a fpc in hopes that with more attentive care, she would wear the BiPAP more regularly. However, once she was feeling better, she was refusing BiPAP here.? Stressed the benefits of compliance but she declines use. Patient has a hx of alcohol abuse. She denies recent alcohol use but unable to verify. CIWA showing no evidence of withdrawal. Treated with Thiamine and folate. Patient with pulmonary cachexia due to chronic obstructive pulmonary disease with chronic severe protein calorie malnutrition. Dietary consulted. Supplements added. Speech therapy felt patient could eat safely. Patient insistent on going home. Spoke with son again and explained that it is doubtful patient will wear BiPAP at a fpc since not wearing it here. Encouraged him to speak with his other brother come up with a care plan the patient the fulfills her wishes. Plan for discharge home today. Called other son but no answer at number in chart. Patient overall did well and was discharged on 10/26/2023. Status at Discharge Cognitive/behavioral status at discharge: Stable Time Spent with Patient Time attestation: Total time spent providing and/or coordinating discharge services: 38 minutes Time spent: Greater than 30 minutes Exam Narrative: AF 98.1 103/68 72 20 94% 3L Gen - thin female in NARD Chest - very distant but clear breath sounds. No wheezing CV - RRR S1/S2 Abd - soft, scaphoid, +BS, nontender Ext - no pedal edema. severely decreased muscle mass Psych - normal mood and affect. Patient is pleasant and cooperative. Skin - warm and dry. scant soft tissue DS: Data Data Completed and Pending Labs on day of discharge: Labs from last 24 hours 10/26/23 10/26/23 10/25/23 05:23 00:11 16:56 POC Capillary Glucose 87 85 135 H Discharge Plan Discharge Attending physician on discharge: Jose C Guzman Discharging Clinician: Jose C Guzman Anticipated Discharge Date/Time: 10/26/23 13:42 Patient Disposition: Home Health Service Activity: as tolerated Diet: regular and other - see discharge
--- NOTE | 2023-10-26 13:57 | PC.NURSE ---
Called Twyla in the dieticians office and she is bringing up information on soft and bite sized level 6
== END 2023-10-26 17:50 | disposition home health service (06) | DRG 189 ==
LOC: ANHED 07:41 → ANHIMU 09:21 → ANH3MED 10-25 14:25
PROVIDERS: Admitting Provider Internal Medicine; Emergency Provider Student in an Organized Health Care Education/Training Program; PCP Family Medicine; Visit Provider Internal Medicine
DX: J96.21 Acute and chronic respiratory failure with hypoxia (principal); E43 Unspecified severe protein-calorie malnutrition; J44.1 Chronic obstructive pulmonary disease with (acute) exacerbation; R64 Cachexia; Z68.1 Body mass index [BMI] 19.9 or less, adult; I42.8 Other cardiomyopathies; J96.22 Acute and chronic respiratory failure with hypercapnia; D51.9 Vitamin B12 deficiency anemia, unspecified; K21.9 Gastro-esophageal reflux disease without esophagitis; M81.0 Age-related osteoporosis without current pathological fracture; F41.1 Generalized anxiety disorder; F10.20 Alcohol dependence, uncomplicated; Z66 Do not resuscitate; Z91.199 Patient's noncompliance with other medical treatment and regimen due to unspecified reason; Z87.891 Personal history of nicotine dependence
CPT/HCPCS: 36415; 36600; 71045; 71046; 80048; 80053; 82803; 82805; 82948; 83735; 84100; 85025; 85027; 87637; 92610; 93005; 94002; 94003; 94640; 96361; 96374; 97161; 97165; 99285; A9270; G0378; J2930; J7030; J7512

== ENCOUNTER 2024-01-03 09:07 | Inpatient (IN) | payer MEDICARE, MEDICAID, SELFPAY ==
[2024-01-03] VITALS (43 sets, daily range): BP systolic 107–156; BP diastolic 78–101; PULSE 77–109; RESP 12–20; TEMP 36.4; O2SAT 95–100
--- NOTE | ~2024-01-03 | XR_ITS ---
EXAMINATION: XR chest 1V portable Exam Date/Time: 01/03/2024 15:35 CDT HISTORY: weakness Comparison: 10/24/2023. RESULT: Lines, tubes, and devices: Suture lines in the bilateral apices. Lungs and pleura: Severe emphysematous change with multiple bullae. Significant architectural distor tion. No focal consolidation, pleural effusion, or pneumothorax. Cardiomediastinal silhouette: Stable. Calcified right hilar lymph node. Other: No acute osseous or upper abdominal finding. IMPRESSION: No acute cardiopulmonary process. Reviewed, dictated and finalized at location K.
--- NOTE | ~2024-01-03 | CT_ITS ---
EXAMINATION: CT brain wo con DATE: 01/03/2024 21:13 INDICATION: Confusion . TECHNIQUE: Computed tomography (CT) of the head was performed without intravenous contrast. The mA wa s adjusted according to patient size. Iterative reconstruction technique was employed. The dose-lengt h product was 681.00 mGy-cm. COMPARISON: 07/16/2023. FINDINGS: No acute intracranial hemorrhage or extra-axial fluid collection. No hydrocephalus, mass, or herniation. No acute ischemic infarct. Unremarkable dural venous sinus attenuation. No acute osseous abnormality. Bilateral mastoid fluid, the remaining aerated spaces are clear. Atherosclerotic intracranial calcifications. 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 Focal encephalomalac ia in the right periventricular white matter. Stable chronic lytic defect in the anterior parietal markos ne on the left, likely benign, possible hemangioma. IMPRESSION: No acute intracranial process. Reviewed, dictated and finalized at location K.
[2024-01-03 09:23] LABS: Basophils Percent Auto 0.5 % (0.2-1.2); Eosinophils Absolute Auto 0.1 K/mm3 (0-0.3); Eosinophils Percent Auto 0.8 % (0-4.4); Hematocrit 38.5 % (37.0-47.0); Hemoglobin 12.4 g/dL (12.0-15.0); Immature Granulocyte Absolute 0.02 K/mm3 (0.00-0.031); Immature Granulocyte Percent A 0.3 % (0-0.5); Lymphocytes Absolute Auto 0.44 K/mm3 (0.9-3.2); Lymphocytes Percent Auto 6.8 % (18.3-44.2); Mean Corpuscular HGB Conc 32.2 g/dl (32-36); Mean Corpuscular Hemoglobin 28.6 pg (26-34); Mean Corpuscular Volume 88.7 fl (80-100); Mean Platelet Volume 8.4 fl (7.4-10.4); Monocytes Absolute Auto 0.5 K/mm3 (0.1-0.6); Monocytes Percent Auto 7.8 % (2.6-8.5); Neutrophils Absolute Auto 5.4 K/mm3 (1.3-6.7); Neutrophils Percent Auto 83.8 % (45.5-73.1); Platelet Count Result 311 k/mm3 (150-375); Red Blood Count 4.34 M/mm3 (4.2-5.4); Red Cell Distribution Width 12.7 % (11.5-14.5); White Blood Count 6.4 K/mm3 (4.5-10.0)
[2024-01-03 09:38] LABS: Alanine Aminotransferase 15 U/L (6-35); Albumin Level 3.9 g/dL (3.5-5.1); Alkaline Phosphatase 97 U/L (38-126); Aspartate Amino Transferase 38 U/L (14-36); Bilirubin,Total 0.7 mg/dL (0.2-1.3); Blood Urea Nitrogen 4 mg/dL (7-17); Calcium 9.1 mg/dL (8.4-10.2); Carbon Dioxide > 40 mmol/L (22-30); Chloride 71 mmol/L (98-107); Estimated CRCL calculation 71 ml/min; Estimated Glomerular Filt Rate > 60; Glucose 119 mg/dL (65-110); Lipase 132 U/L (23-300); Potassium 4.2 mmol/L (3.4-5.0); Sodium 119 mmol/L (137-145)
--- NOTE | 2024-01-03 09:44 | ED.NAVMDI ---
HPI - Nausea/Vomiting/Diarrhea General Chief complaint: Nausea/Vomiting/Diarrhea Stated complaint: N/V/D Time Seen by Provider: 01/03/24 09:19 History of Present Illness HPI Narrative: Patient is a 58-year-old female who presents ER with nausea and vomiting and weakness. Ongoing over last 2 days. Patient is awake alert. She intermittently answers questions. she is oriented to self complaints. She has no complaints of cough. She has no chest pain. Patient is emaciated in appearance. Related Data Home Medications Medication Instructions Recorded Confirmed fluticasone fur. 100 mcg-umeclid 1 inh inhalation DAILY 08/19/23 10/23/23 62.5 mcg-vilant 25 mcg inhalat.powder (Trelegy Ellipta) fluoxetine 40 mg capsule 40 mg PO DAILY 10/23/23 10/23/23 levalbuterol HCl 1.25 mg/3 mL 1.25 mg inhalation Q6H PRN Severe 10/23/23 10/23/23 solution for nebulization Emphysema vortioxetine 10 mg tablet 10 mg PO DAILY 10/23/23 10/23/23 (Trintellix) Allergies Allergy/AdvReac Type Severity Reaction Status Date / Time clindamycin Allergy Unknown anaphylactic Verified 01/03/24 13:39 reaction, rash Review of Systems Review of Systems: ROS unobtainable: Yes unobtainable due to mental status PMFSH Past Medical History Medical History Abnormal EKG EKG has previously shown ST elevation which appears to be early repolarization. Alcohol abuse Anxiety Asthma B12 deficiency anemia Chronic anemia Chronic hyponatremia Chronic respiratory failure with hypoxia and hypercapnia On Trelegy unit at nighttime. However the patient is noncompliant 3 L nasal cannula during the day. Closed traumatic nondisplaced fracture of proximal end of right humerus Cognitive impairment COPD with emphysema COVID-19 (~11/2022) Fracture of distal phalanx of ring finger Gastroesophageal reflux disease Generalized anxiety disorder with panic attacks Osteoporosis Protein-calorie malnutrition, severe Pulmonary cachexia due to chronic obstructive pulmonary disease Right hand fracture Secondary nonischemic congestive cardiomyopathy With ejection fraction of 40-45%, diastolic dysfunction grade 1, mid inferior wall, mid anterior wall, mid in for septal wall mid anterior lateral wall, basal apical septum and mid inferior wall hypokinesis on echocardiogram 03/2022 Spontaneous pneumothorax (08/2012) Several pneumothoraces status post VATS procedure and apical blebectomy as well as pleurodesis. Tobacco abuse Quit in 2019 per patient report. Vitamin D deficiency Surgical History Surgical History History of bilateral tubal ligation History of section History of hip surgery (07/2019) ORIF of right femur fracture. History of tonsillectomy Status post thoracotomy Left-sided VATS procedure and apical bleb resection with pleurodesis. Family History Family History Father Acute myocardial infarction Mother Chronic obstructive pulmonary disease Social History Social History (Updated 10/23/23 @ 12:25 by Jose C Guzman MD) Social History: The patient had 3 sons but one from drug overdose. Patient is an alcoholic. Denies recent alcoholor tobacco use. No drug use. She lives with her son and ex-. Code status: Not sure - she wants me to contact family POA: Linotesfaye Herrera Smoking packs per day: 1 Smoking cigarettes per day: 20.0 Years smoked: 40 Smoking pack-years: 40.00 Smoking status: Former smoker Second hand tobacco smoke exposure: Yes Alcohol intake: current Drinks per week: 6 Alcohol use details: Heavier drinker in the past. Substance use: former Substance use type: does not use Do You Feel Safe in your Home?: Yes Lack of Transportation: No Lack of Food: Never True Current Housing: I Have Housing Concerned About Fu
[2024-01-03] MEDS: SODIUM CHLORIDE 0.9% IV 500 ML 999 ML IV CONT (10:01)
[2024-01-03 10:05] LABS: Alveolar/Arterial O2 Gradient 91.2 mmHg; Base Excess ABG 13.1 mEq/l (+/-2.0); Carboxyhemoglobin 1.3 % THb (0-2.0); Fractional Inspired Oxygen 32 %; HCO3 ABG 40.7 mEq/l (22.0-26.0); Methemoglobin ABG 0.3 %THb (0-1.5); Oxygen Content ABG 15.4 %vol (16.0-22.0); Oxygen Saturation ABG 89.1 % (95.0-100.0); Oxyhemoglobin 88.2 % THb (90.0-100.0); PO2 ABG 58.1 mmHg (80.0-100.0); PO2 FiO2 Ratio Arterial Blood 1.82 %; Reduced Hemoglobin 10.2 %THb (0-5.0); Total Hemoglobin 12.4 g/dL (12.0-18.0); pH ABG 7.399 (7.350-7.450)
[2024-01-03 10:06] LABS: Device NASAL CANNULA; Modified Allen's Test Pass; PCO2 ABG 67.4 mmHg (35.0-45.0); Site Drawn LEFT RADIAL
[2024-01-03 12:06] LABS: Appearance Urine Clear (Clear); Bilirubin Urine Negative (Negative); Blood Urine Negative (Negative); Color Urine Yellow (Yellow); Glucose Urine UA Negative (Negative); Ketones Urine 4+ mg/dL (Negative); Leukocyte Esterase Ur Negative LEU/UL (Negative); Nitrate Urine Negative (Negative); Protein Urine Negative (Negative); Specific Grav Ur 1.012 (1.001-1.035); Urobilinogen Urine 0.2 mg/dL (<2.0); pH Urine 7.5 (5.0-9.0)
[2024-01-03 12:14] LABS: Add Urine Microscopic? NO
[2024-01-03] MEDS: SODIUM CHLORIDE 0.9% IV 1,000 ML 75 ML IV CONT (13:45)
--- NOTE | 2024-01-03 14:19 | PM.IMHP ---
H&P: HPI History of Present Illness Date/Time: 01/03/24 14:19 Chief Complaint: Decreased Appetite, N/V, Generalized Weakness Narrative: 58 y/o F presents here with decreased appetite, N/V, generalized weakness with PMH of hyponatremia secondary to alcohol abuse, anxiety, asthma, chronic anemia, chronic respiratory failure with hypoxia and hypercapnia, cognitive impairment, COPD, GERD, AMY, secondary nonischemic congestive cardiomyopathy. Patient presents here from home with decreased appetite, nausea, vomiting, diarrhea, and generalized weakness for the past 2 days. Son lives with patient. Continues to drink daily - beer, approximates a 6 pack per week. Last PO intake Thursday or Thursday. Patient reports that she care for herself primarily. Denies any pain, SOB, chest pain, or abdominal pain. Only current complaint is hunger. Wears supplemental O2 at baseline - ? Patient is poor historian, spoke with patient's POA - Lino Herrera. Son reports that patient currently lives with his brother Liam. Discussed previous admission where there have been attempts to place patient due to FTT, however patient's confusion will resolve by end of admission and will be deemed fit to make her decisions, will elect to go home, and then will later return in a confused/disheveled state where the process will begin again. Per son, Liam who lives with her, she has been having N/V/D over the last 2 days. Son concerned she has been withdrawing from her Xanax. Patient had it filled on 12/14/23, takes 1 mg TID, last dose taken 3 days ago, and not due for refill (ran out 11 days early). Son does not think she has been drinking lately but has been working long hours so has been unable to observe her. Reports patient has short term memory loss at baseline, confusion tends to increase when she runs out of her anxiety medications, becomes anxious, or if she becomes ill. Has ran out of Xanax before refill on a couple occasions over the last few years per son's report. Patient has alcohol abuse history. Initial VS at presentation: 97.6? F, HR 107, RR 17, 149/95, 95% on 3L NC. ED workup showed: No leukocytosis and no anemia, Na 119, CO2 >40, creatinine <0.2, glucose 119, AST 38, ALT 15, total bili 0.7, and UA showed 4+ ketones. Review of Systems Review of Systems: ROS unobtainable: Yes unobtainable due to mental status PMFSH Past Medical History Medical History Abnormal EKG EKG has previously shown ST elevation which appears to be early repolarization. Alcohol abuse Anxiety Asthma B12 deficiency anemia Chronic anemia Chronic hyponatremia Chronic respiratory failure with hypoxia and hypercapnia On Trelegy unit at nighttime. However the patient is noncompliant 3 L nasal cannula during the day. Closed traumatic nondisplaced fracture of proximal end of right humerus Cognitive impairment COPD with emphysema COVID-19 (~11/2022) Fracture of distal phalanx of ring finger Gastroesophageal reflux disease Generalized anxiety disorder with panic attacks Osteoporosis Protein-calorie malnutrition, severe Pulmonary cachexia due to chronic obstructive pulmonary disease Right hand fracture Secondary nonischemic congestive cardiomyopathy With ejection fraction of 40-45%, diastolic dysfunction grade 1, mid inferior wall, mid anterior wall, mid in for septal wall mid anterior lateral wall, basal apical septum and mid inferior wall hypokinesis on echocardiogram 03/2022 Spontaneous pneumothorax (08/2012) Several pneumothoraces status post VATS procedure and apical blebectomy as well as pleurodesis. Tobacco abuse Quit in 2020 per patient report. Vitamin D deficiency Surgical History Surgical History History of bilateral tubal ligation History of section History of hip surgery (07/2019) ORIF of right femur fracture. History of tonsillectomy Status post thoracotomy
--- NOTE | 2024-01-03 15:35 | PC.NURSE ---
Dinner tray with regular diet ordered for dinner.
[2024-01-03 15:49] LABS: Ammonia < 9 umol/L (9-30)
[2024-01-03 15:59] LABS: Ethanol < 10 mg/dL (<10)
[2024-01-03 16:31] LABS: Procalcitonin 0.1 ng/mL
[2024-01-03 21:56] LABS: Glucose Point of Care 101 mg/dl (65-105)
[2024-01-03 22:15] LABS: Magnesium 1.5 mg/dL (1.6-2.3); Phosphorus 2.6 mg/dL (2.5-4.5); Sodium 118 mmol/L (137-145)
[2024-01-03] MEDS: SODIUM CHLORIDE 1 GM TABLET PO (23:19)
[2024-01-03] MEDS: ONDANSETRON INJ 4 MG/2 ML VIAL IV PUSH (23:26)
--- NOTE | 2024-01-03 23:56 | ADMGEN ---
This patient, Esther Brink, was admitted to IMU Room 211-01 @ 2345 Patient/family oriented to hospital policies and general routines including ID bracelet, bed and alarms, visiting hours, pain management, procedures, bathroom and other care routines, personal items, smoking policy, room service/diet, and visiting hours. Information on how to activate the Rapid Response Team has been discussed. Patient/Family are encouraged to report perceived risks to care and to ask questions if they do not understand what they are told or what they should do.
[2024-01-04] VITALS (26 sets, daily range): BP systolic 92–112; BP diastolic 53–78; PULSE 64–114; RESP 15–22; TEMP 35.9–36.6; O2SAT 94–100; BMI 12.2
[2024-01-04] MEDS: ALPRAZolam (*CRX) 0.5 MG TABLET 1 MG PO ×3 (01:51→23:21)
[2024-01-04 02:26] LABS: Sodium 120 mmol/L (137-145)
[2024-01-04 06:12] LABS: Basophils Percent Auto 0.3 % (0.2-1.2); Eosinophils Percent Auto 0.2 % (0-4.4); Hematocrit 35.3 % (37.0-47.0); Hemoglobin 10.8 g/dL (12.0-15.0); Immature Granulocyte Absolute 0.01 K/mm3 (0.00-0.031); Immature Granulocyte Percent A 0.2 % (0-0.5); Lymphocytes Absolute Auto 0.34 K/mm3 (0.9-3.2); Lymphocytes Percent Auto 5.8 % (18.3-44.2); Mean Corpuscular HGB Conc 30.6 g/dl (32-36); Mean Corpuscular Hemoglobin 28.2 pg (26-34); Mean Corpuscular Volume 92.2 fl (80-100); Mean Platelet Volume 8.6 fl (7.4-10.4); Monocytes Absolute Auto 0.4 K/mm3 (0.1-0.6); Monocytes Percent Auto 6.8 % (2.6-8.5); Neutrophils Absolute Auto 5.1 K/mm3 (1.3-6.7); Neutrophils Percent Auto 86.7 % (45.5-73.1); Platelet Count Result 369 k/mm3 (150-375); Red Blood Count 3.83 M/mm3 (4.2-5.4); Red Cell Distribution Width 12.6 % (11.5-14.5); White Blood Count 5.9 K/mm3 (4.5-10.0)
[2024-01-04 06:15] LABS: Blood Urea Nitrogen 3 mg/dL (7-17); Calcium 8.9 mg/dL (8.4-10.2); Carbon Dioxide > 40 mmol/L (22-30); Chloride 77 mmol/L (98-107); Estimated CRCL calculation 73 ml/min; Estimated Glomerular Filt Rate > 60; Glucose 107 mg/dL (65-110); Magnesium 1.6 mg/dL (1.6-2.3); Phosphorus 4.1 mg/dL (2.5-4.5); Potassium 3.4 mmol/L (3.4-5.0); Sodium 122 mmol/L (137-145)
[2024-01-04 08:45] LABS: Folic Acid 9.1 ng/mL (2.76->20)
[2024-01-04] MEDS: FUROSEMIDE INJ 40 MG/4 ML VIAL 20 MG IV PUSH (09:21)
[2024-01-04] MEDS: THIAMINE HCL 200 MG/2 ML VIAL 100 MG IV PUSH (09:21)
[2024-01-04] MEDS: SODIUM CHLORIDE 1 GM TABLET PO ×2 (09:23→15:52)
--- NOTE | 2024-01-04 11:13 | PCPTNOTE ---
Attempted PT evaluation, Pt refused stating she was too tired. Will follow.
[2024-01-04 11:26] LABS: Sodium 120 mmol/L (137-145)
[2024-01-04 11:54] LABS: Glucose Point of Care 101 mg/dl (65-105)
--- NOTE | 2024-01-04 12:09 | PM.CNNEP ---
Assessment and Plan Assessment and plan (1) Hyponatremia: Code(s): E87.1 - Hypo-osmolality and hyponatremia Status: Chronic Assessment and Plan: recurrent/chronic issue best sodiums to date run 132 - 135mmol/L; however, has been as low as 117mmol/L in the past admitted with a sodium of 118 s/p normal saline IVFs from ER risk factors for hyponatremia: prerenal factors (diminished oral intake) alcohol use (beer potomania?) SSRI use nausea/vomiting/diarrhea interventions instituted: 1000 mL fluid restriction salt tabs bid lasix bid follow-up on urine sodium, urine osmolality, and serum osmolality for completeness, check TSH, cortisol, and SPEP/UPEP follow repeat sodium levels (2) Metabolic encephalopathy: Code(s): G93.41 - Metabolic encephalopathy Status: Acute Assessment and Plan: due to low sodium, EtOH withdrawal, or benzo withdrawal or combination of all(?) head CT negative reported has some underlying short term memory issues and cognitive impairment follow mentation (3) End stage COPD: Code(s): J44.9 - Chronic obstructive pulmonary disease, unspecified Status: Chronic Assessment and Plan: non-compliant with previous interventions/therapy follow respiratory status (4) Failure to thrive: Status: Acute Assessment and Plan: long standing issue as noted on previous hospitalizations not sure what else can be done give previous attempts at intervention have failed I will continue follow the patient with you while she remains hospitalized and make further recommendations as deemed necessary. Thank you for allowing me to participate in care of this patient. History of Present Illness Reason for Consult Consult date: 01/04/24 Reason for consult: hyponatremia Chief Complaint Chief complaint: Hyponatremia, Adult failure to thrive History of Present Illness Narrative: A great majority of the history that I am able to obtain his review the electronic medical records as well as discussion with the physician/nurses involved in the patient's care as it is extremely difficult to get a full and complete history from the patient as she appears to be a poor historian and refuses to answer the most of the questions I asked. The patient is a 58-year-old female with a past medical history as outlined below who presented to [facility] Emergency Room with a multitude of complaints including generalized weakness, poor appetite, nausea, vomiting, and diarrhea. These symptoms have apparently been going on for last couple of days but as they did not seem to be improving, she came to the emergency room for further assessment. When I tried to verify these symptoms and issues that led to her presentation to the ER she seems to deny them and told me to leave her alone so that she could sleep/rest. Workup and evaluation emergency room demonstrated the patient be hemodynamically stable but slightly tachycardic and able to maintain her oxygen saturations on 3 L of supplemental oxygen by nasal cannula. Routine blood test demonstrated no significant leukocytosis or anemia but her chemistry showed significant hyponatremia with a sodium level of 119 in association with a metabolic alkalosis with a CO2 level greater than 40. No other acute issues or findings were discovered on further testing. Upon further discussion with the son that lives with her, he had concerns that she was withdrawing from her Xanax as she had not taken a dose for last 2 or 3 days as she was not due for refill and finished her prescription a bit early. She does have a known history of alcohol abuse but her son was not clear if she has been drinking lately although previous history reports that she was drinking on a daily basis of approximately a six-pack of beer per week. Given her constellation of symptoms and as well as her hyponatremia, she was admitted the hospital fo
[2024-01-04 13:35] LABS: Alveolar/Arterial O2 Gradient 5.8 mmHg; Base Excess ABG 14.9 mEq/l (+/-2.0); Fractional Inspired Oxygen 24 %; HCO3 ABG 45.2 mEq/l (22.0-26.0); Oxygen Content ABG 14.8 %vol (16.0-22.0); PO2 ABG 54.4 mmHg (80.0-100.0); PO2 FiO2 Ratio Arterial Blood 2.27 %; Total Hemoglobin 12.2 g/dL (12.0-18.0); pH ABG 7.304 (7.350-7.450)
[2024-01-04 13:39] LABS: PCO2 ABG 93.2 mmHg (35.0-45.0)
[2024-01-04 13:40] LABS: Device NASAL CANNULA; Oxygen Saturation ABG 82.8 % (95.0-100.0); Oxyhemoglobin 86.1 % THb (90.0-100.0); Site Drawn RIGHT BRACHIAL
[2024-01-04] MEDS: ACETAMINOPHEN 325 MG TABLET 650 MG PO (13:59)
[2024-01-04 14:17] LABS: Sodium 122 mmol/L (137-145)
--- NOTE | 2024-01-04 14:38 | PM.IMPN ---
Progress Note: A&P Assessment and Plan (1) Hyponatremia: Code(s): E87.1 - Hypo-osmolality and hyponatremia Status: Chronic Assessment and Plan: - baseline hyponatremic, Oct 2023 range 132-135 - seizure precautions - call provider if sodium increases by more than 2 mmol/L in 4 hours or greater than 8 mmol/L in a 24 hour period - review of chart, hyponatremia previously related to alcohol use. Patient also on benzos daily. - nephrology consulted, Sotero SEGOVIA. 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 - last refill on 12/14/2023, ran out on 3 days ago on 12/31 (11 days early = 33 pillls) - [facility] protocol for withdrawal - seizure precautions - neuro checks Q4, if patient deteriorates then neuro checks Q2 - restart home dose of Xanax 1 mg TID - hx of alcohol abuse - antiemetics p.r.n. (3) Metabolic encephalopathy: Code(s): G93.41 - Metabolic encephalopathy Status: Acute Assessment and Plan: - likely multifactorial, hyponatremia and benzo withdrawal - neuro checks q.4 - no focal deficits or signs of trauma on exam, no report of trauma by family or patient. - head CT showed no acute intracranial process - does appear to have some underlying cognitive impairment/short-term memory loss - add thiamine and folic acid levels - thiamine IVP daily (4) Protein-calorie malnutrition, severe: Code(s): E43 - Unspecified severe protein-calorie malnutrition Status: Acute Assessment and Plan: - monitor phosphorus levels daily - consult to farm machinery mechanic, at risk for refeeding syndrome - TID supplementation, needs to increase calories +500 cals (5) Adult failure to thrive: Code(s): R62.7 - Adult failure to thrive Status: Acute Assessment and Plan: - current weight: 29.4 kg, BMI 12.2 - per son who is POA - Lino Sharon, they have previously attempted to have patient placed but were unable to because either patient's mental status improved or they did not qualify - care coordination consulted -spoke with Lino and patient is now DNR per her wishes - pt/ot ordered for d/c planning (6) Chronic respiratory failure with hypoxia and hypercapnia: Code(s): J96.11 - Chronic respiratory failure with hypoxia; J96.12 - Chronic respiratory failure with hypercapnia Status: Chronic Assessment and Plan: Repeat ABG showed worsening respiratory acidosis Bipap ordered with settings 12/5, back up 14 after being discussed with Dr. Suggs who will see patient tomorrow restarted Trelegy and PRN albuterol discussed with MARJAN Huynh, who is okay with intubation should she not cooperate as she has had to be intubated in the past Plan Diet: regular GI Prophylaxis: Not currently indicated DVT Prophylaxis: SCDs Lines: Peripheral Code Status: Full code Subjective Date/time seen: 01/04/24 14:38 Interval history: Patient is in no acute distress, alert and oriented x2-3 when aroused from sleep. She appears chronically ill. Her sodium has improved minimally, awaiting further recs from nephrology. She is currently on sodium chloride tans and fluid restriction. Discussed her ABG this afternoon with Dr. Suggs who recommended bipap if she will cooperate/tolerate. Spoke with respiratory and will attempt. Spoke with her son and MARJAN, Lino, who confirmed her DNR status but did want to intubate for respiratory purposes should she not tolerate bipap. Review of Systems Review of Systems: All systems reviewed & are unremarkable except as noted in HPI and below ROS unobtainable: Yes unobtainable due to mental status Exam Narrative: GENERAL: Chronically ill-appearing and flaca
[2024-01-04] MEDS: FUROSEMIDE 10 MG TABLET PO (15:52)
[2024-01-04 18:32] LABS: Glucose Point of Care 116 mg/dl (65-105)
[2024-01-04 20:47] LABS: Sodium 123 mmol/L (137-145)
[2024-01-04 22:58] LABS: Sodium 123 mmol/L (137-145)
[2024-01-04 23:47] LABS: Glucose Point of Care 125 mg/dl (65-105)
[2024-01-05] VITALS (19 sets, daily range): BP systolic 101–112; BP diastolic 53–72; PULSE 88–116; RESP 16–18; TEMP 36.4–37; O2SAT 95–99
[2024-01-05] MEDS: ALBUTEROL SULFATE (*SP) AEROSOL 1 PUFF 2 PUFF INHALATION ×2 (05:00→08:44)
[2024-01-05 05:12] LABS: Basophils Percent Auto 0.5 % (0.2-1.2); Eosinophils Percent Auto 0.5 % (0-4.4); Hematocrit 37.5 % (37.0-47.0); Hemoglobin 11.4 g/dL (12.0-15.0); Immature Granulocyte Absolute 0.01 K/mm3 (0.00-0.031); Immature Granulocyte Percent A 0.2 % (0-0.5); Lymphocytes Absolute Auto 0.41 K/mm3 (0.9-3.2); Mean Corpuscular HGB Conc 30.4 g/dl (32-36); Mean Corpuscular Hemoglobin 28.5 pg (26-34); Mean Corpuscular Volume 93.8 fl (80-100); Mean Platelet Volume 8.2 fl (7.4-10.4); Monocytes Absolute Auto 0.6 K/mm3 (0.1-0.6); Monocytes Percent Auto 14.2 % (2.6-8.5); Neutrophils Absolute Auto 3.1 K/mm3 (1.3-6.7); Neutrophils Percent Auto 74.6 % (45.5-73.1); Platelet Count Result 315 k/mm3 (150-375); Red Cell Distribution Width 12.2 % (11.5-14.5); White Blood Count 4.1 K/mm3 (4.5-10.0)
[2024-01-05 05:15] LABS: Alveolar/Arterial O2 Gradient 9.3 mmHg; Fractional Inspired Oxygen 24 %; HCO3 ABG 44.7 mEq/l (22.0-26.0); Oxygen Content ABG 15.3 %vol (16.0-22.0); Oxygen Saturation ABG 91.7 % (95.0-100.0); Oxyhemoglobin 92.2 % THb (90.0-100.0); PO2 ABG 67.2 mmHg (80.0-100.0); Total Hemoglobin 11.8 g/dL (12.0-18.0); pH ABG 7.368 (7.350-7.450)
[2024-01-05 05:19] LABS: Device NASAL CANNULA; Modified Allen's Test Pass; PCO2 ABG 79.5 mmHg (35.0-45.0); Site Drawn LEFT RADIAL
[2024-01-05 05:23] LABS: Blood Urea Nitrogen 7 mg/dL (7-17); Calcium 9.3 mg/dL (8.4-10.2); Carbon Dioxide > 40 mmol/L (22-30); Chloride 75 mmol/L (98-107); Estimated CRCL calculation 99 ml/min; Estimated Glomerular Filt Rate > 60; Glucose 101 mg/dL (65-110); Potassium 3.2 mmol/L (3.4-5.0); Sodium 127 mmol/L (137-145)
--- NOTE | 2024-01-05 05:37 | PCRCNOTE ---
RT obtained 0500 ABG on 1L nasal cannula due to pt refusing to wear bipap at night per RN. ABG results were read off to RN as: pH 7.368 PCO2 79.5 PO2 67.2 HCO3 44.7.
[2024-01-05] MEDS: FLUTICASONE/UMECLIDIN/VILANTER 100-62.5-25 MCG ELLIPTA 1 PUFF INHALATION (08:45)
[2024-01-05] MEDS: FUROSEMIDE 10 MG TABLET PO ×2 (09:17→17:24)
[2024-01-05] MEDS: THIAMINE HCL 200 MG/2 ML VIAL 100 MG IV PUSH (09:17)
[2024-01-05] MEDS: SODIUM CHLORIDE 1 GM TABLET PO ×2 (09:17→17:23)
[2024-01-05] MEDS: ALPRAZolam (*CRX) 0.5 MG TABLET 1 MG PO ×2 (09:18→21:09)
--- NOTE | 2024-01-05 09:30 | PC.NURSE ---
Pt unable to tolerate PO Potassium Packet. JAYASHREE Nazario at bedside while pt is attempting to drink potassium. Pt requesting a pill form . New order placed for 40 Meq PO Potassium pills x1.
[2024-01-05] MEDS: POTASSIUM CHLORIDE 20 MEQ ER TABLET 40 MEQ PO (09:40)
[2024-01-05] MEDS: ONDANSETRON INJ 4 MG/2 ML VIAL IV PUSH (09:46)
[2024-01-05 09:56] LABS: Sodium Urine Random 126 meq/L
--- NOTE | 2024-01-05 10:18 | P.PNNP_ITS ---
Progress Note: A&P Assessment and Plan (1) Hyponatremia: Code(s): E87.1 - Hypo-osmolality and hyponatremia Status: Chronic Assessment and Plan: * recurrent/chronic issue * best sodiums to date run 132 - 135mmol/L; however, has been as low as 117mmol/L in the past * admitted with a sodium of 118 * s/p normal saline IVFs from ER * risk factors for hyponatremia: * prerenal factors (diminished oral intake) * alcohol use (beer potomania?) * SSRI use * nausea/vomiting/diarrhea * interventions instituted: * 1000 mL fluid restriction * salt tabs bid * lasix bid * evaluation to date: * TSH okay * corisol WNL * urine electrolytes non-prerenal * serum/urine osmo and electrophroresis pending * follow repeat sodium levels (2) Metabolic encephalopathy: Code(s): G93.41 - Metabolic encephalopathy Status: Acute Assessment and Plan: * due to low sodium, EtOH withdrawal, or benzo withdrawal or combination of all(?) * head CT negative * reported has some underlying short term memory issues and cognitive impairment * follow mentation (3) End stage COPD: Code(s): J44.9 - Chronic obstructive pulmonary disease, unspecified Status: Chronic Assessment and Plan: * non-compliant with previous interventions/therapy * follow respiratory status * Pulmonary consulted (4) Failure to thrive: Status: Acute Assessment and Plan: * long standing issue as noted on previous hospitalizations * not sure what else can be done give previous attempts at intervention have failed Will continue to follow. Subjective Date/time seen: 01/05/24 10:18 Interval history: Follow-up for acute on chronic hyponatremia. Respiratory status seems a bit tenuous but otherwise in no apparent distress; sodium doing better with current interventions/therapy; no issues/events overnight or earlier this morning. Exam Narrative: General: ill appearing female in NAD Heart: normal S1 and S2; no rub Lungs: clear to auscultation Abdomen: soft, nontender, nondistended, positive bowel sounds Extremities: no cyanosis or clubbing; no edema Skin: warm and dry Objective Data Vital Signs Vital Signs: Vital Signs Temp Pulse Resp BP Pulse Ox O2 Del Method O2 Flow Rate 01/05/24 10:01 97.5 F L 98 16 104/66 97 01/05/24 08:00 98 Nasal Cannula 1 03/19/24 08:48 96 Nasal Cannula 1 01/05/24 08:33 Nasal Cannula 2 01/05/24 07:38 97.5 F L 101 H 18 104/72 99 01/05/24 05:27 106 H 01/05/24 05:10 97 Nasal Cannula 1 01/05/24 04:00 100 18 97 Nasal Cannula 1 01/05/24 04:00 105/64 01/05/24 04:00 100 01/05/24 02:00 98 01/05/24 03:50 97.9 F 90 18 105/64 97 01/05/24 00:00 101/66 01/05/24 00:00 93 01/04/24 22:00 112 H 17 99 Nasal Cannula 1 01/04/24 23:35 97.9 F 102 H 17 101/66 99 01/04/24 22:30 93 94 Nasal Cannula 01/04/24 21:42 99 01/04/24 20:00 96 17 100 BiPAP 01/04/24 20:00 96/68 L 01/04/24 20:00 96 01/04/24 20:37 97.9 F 104 H 17 96/68 L 100 01/04/24 20:10 104 H 15 100 BiPAP 01/04/24 18:00 96
--- NOTE | 2024-01-05 10:18 | PM.PNNEP ---
Progress Note: A&P Assessment and Plan (1) Hyponatremia: Code(s): E87.1 - Hypo-osmolality and hyponatremia Status: Chronic Assessment and Plan: recurrent/chronic issue best sodiums to date run 132 - 135mmol/L; however, has been as low as 117mmol/L in the past admitted with a sodium of 118 s/p normal saline IVFs from ER risk factors for hyponatremia: prerenal factors (diminished oral intake) alcohol use (beer potomania?) SSRI use nausea/vomiting/diarrhea interventions instituted: 1000 mL fluid restriction salt tabs bid lasix bid evaluation to date: TSH okay corisol WNL urine electrolytes non-prerenal serum/urine osmo and electrophroresis pending follow repeat sodium levels (2) Metabolic encephalopathy: Code(s): G93.41 - Metabolic encephalopathy Status: Acute Assessment and Plan: due to low sodium, EtOH withdrawal, or benzo withdrawal or combination of all(?) head CT negative reported has some underlying short term memory issues and cognitive impairment follow mentation (3) End stage COPD: Code(s): J44.9 - Chronic obstructive pulmonary disease, unspecified Status: Chronic Assessment and Plan: non-compliant with previous interventions/therapy follow respiratory status Pulmonary consulted (4) Failure to thrive: Status: Acute Assessment and Plan: long standing issue as noted on previous hospitalizations not sure what else can be done give previous attempts at intervention have failed Will continue to follow. Subjective Date/time seen: 01/05/24 10:18 Interval history: Follow-up for acute on chronic hyponatremia. Respiratory status seems a bit tenuous but otherwise in no apparent distress; sodium doing better with current interventions/therapy; no issues/events overnight or earlier this morning. Exam Narrative: General: ill appearing female in NAD Heart: normal S1 and S2; no rub Lungs: clear to auscultation Abdomen: soft, nontender, nondistended, positive bowel sounds Extremities: no cyanosis or clubbing; no edema Skin: warm and dry Objective Data Vital Signs Vital Signs: Vital Signs Temp Pulse Resp BP Pulse Ox O2 Del Method O2 Flow Rate 01/05/24 10:01 97.5 F L 98 16 104/66 97 01/05/24 08:00 98 Nasal Cannula 1 01/05/24 08:48 96 Nasal Cannula 1 01/05/24 08:33 Nasal Cannula 2 01/05/24 07:38 97.5 F L 101 H 18 104/72 99 01/05/24 05:27 106 H 01/05/24 05:10 97 Nasal Cannula 1 01/05/24 04:00 100 18 97 Nasal Cannula 1 01/05/24 04:00 105/64 01/05/24 04:00 100 01/05/24 02:00 98 01/05/24 03:50 97.9 F 90 18 105/64 97 01/05/24 00:00 101/66 01/05/24 00:00 93 01/04/24 22:00 112 H 17 99 Nasal Cannula 1 01/04/24 23:35 97.9 F 102 H 17 101/66 99 01/04/24 22:30 93 94 Nasal Cannula 01/04/24 21:42 99 01/04/24 20:00 96 17 100 BiPAP 01/04/24 20:00 96/68 L 01/04/24 20:00 96 01/04/24 20:37 97.9 F 104 H 17 96/68 L 100 01/04/24 20:10 104 H 15 100 BiPAP 01/04/24 18:00 96 Intake/Output Intake/Output: Intake & Output 01/02/24 01/03/24 01/04/24 01/05/24 23:59 23:59 23:59 23:59 Intake Total 1100 360 360 Output Total 500 300 Balance 1100 -140 60 Meds/Results Medications: Active Medications Generic Name Dose Route Start Last Admin Trade Name Freq PRN Reason Stop Dose Admin Acetaminophen 650 mg 01/03/24 13:00 01/05/24 17:24 Acetaminophen 325 Mg Tablet PO 650 mg Q4H PRN Administration Mild Pain (1-3) or Fever Albuterol 2 puff 01/04/24 14:49 01/05/24 08:44 Albuterol Sulfate (*Sp) Aerosol 1 Puff INHALATION 2 puff QIDRT PRN Administration shortness of breath or wheezing Alprazolam 1 mg 01/03/24 20:17 01/05/24 09:18 Alprazolam (*Crx) 0.5 Mg Tablet PO 1
[2024-01-05 12:14] LABS: Glucose Point of Care 172 mg/dl (65-105)
[2024-01-05 13:55] LABS: Sodium 127 mmol/L (137-145)
--- NOTE | 2024-01-05 16:01 | PM.IMPN ---
Progress Note: A&P Assessment and Plan (1) Hyponatremia: Code(s): E87.1 - Hypo-osmolality and hyponatremia Status: Chronic Assessment and Plan: - baseline hyponatremic, Oct 2023 range 132-135 - seizure precautions - call provider if sodium increases by more than 2 mmol/L in 4 hours or greater than 8 mmol/L in a 24 hour period - review of chart, hyponatremia previously related to alcohol use. Patient also on benzos daily. - nephrology consulted, Sotero SEGOVIA. 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 - last refill on 12/14/2023, ran out on 3 days ago on 12/31 (11 days early = 33 pillls) - [facility] protocol for withdrawal - seizure precautions - neuro checks Q4, if patient deteriorates then neuro checks Q2 - restart home dose of Xanax 1 mg TID - hx of alcohol abuse - antiemetics p.r.n. (3) Metabolic encephalopathy: Code(s): G93.41 - Metabolic encephalopathy Status: Acute Assessment and Plan: - likely multifactorial, hyponatremia and benzo withdrawal - neuro checks q.4 - no focal deficits or signs of trauma on exam, no report of trauma by family or patient. - head CT showed no acute intracranial process - does appear to have some underlying cognitive impairment/short-term memory loss - folic acid 9.1 - thiamine IVP daily (4) Protein-calorie malnutrition, severe: Code(s): E43 - Unspecified severe protein-calorie malnutrition Status: Acute Assessment and Plan: - monitor phosphorus levels daily - consult to boat washer, at risk for refeeding syndrome - TID supplementation, needs to increase calories +500 cals (5) Adult failure to thrive: Code(s): R62.7 - Adult failure to thrive Status: Acute Assessment and Plan: - current weight: 29.4 kg, BMI 12.2 - per son who is POA - Lino Sharon, they have previously attempted to have patient placed but were unable to because either patient's mental status improved or they did not qualify - care coordination consulted -spoke with Lino and patient is now DNR per her wishes - pt/ot ordered for d/c planning (6) Chronic respiratory failure with hypoxia and hypercapnia: Code(s): J96.11 - Chronic respiratory failure with hypoxia; J96.12 - Chronic respiratory failure with hypercapnia Status: Chronic Assessment and Plan: Repeat ABG showed worsening respiratory acidosis, 01/04 improved with bipap Bipap ordered with settings 12/5, back up 14 after being discussed with Dr. Suggs patient only wore bipap last night about 4 hours pulmonology consulted restarted Trelegy and PRN albuterol discussed with MARJAN Huynh, who is okay with intubation should she not cooperate as she has had to be intubated in the past Subjective Date/time seen: 01/05/24 16:01 Interval history: Patient is in no acute distress, alert and oriented x2-3. She appears chronically ill. Her sodium has improved to 127, awaiting further recs from nephrology. She is currently on sodium chloride tabs and fluid restriction. Patient tolerated bipap for only about 4 hours yesterday evening, discussed importance with patient and next step should her condition not improve would be intubation. Pulmonology consulted for further recs. Review of Systems Review of Systems: All systems reviewed & are unremarkable except as noted in HPI and below ROS unobtainable: Yes unobtainable due to mental status Exam Narrative: GENERAL: Chronically ill-appearing and severely malnourished, in no acute distress. HEAD: Normocephalic, atraumatic. ENT: Mucous membranes moist. NECK: Supple. CHEST: Clear to auscultation. No respiratory distress. HEART: Tachycar
[2024-01-05] MEDS: ACETAMINOPHEN 325 MG TABLET 650 MG PO (17:24)
[2024-01-05 18:20] LABS: Glucose Point of Care 233 mg/dl (65-105)
--- NOTE | 2024-01-05 20:48 | PM.CNPUL ---
Assessment and Plan Assessment and plan (1) Acute on chronic respiratory failure with hypoxia and hypercapnia: Code(s): J96.21 - Acute and chronic respiratory failure with hypoxia; J96.22 - Acute and chronic respiratory failure with hypercapnia Status: Acute Assessment and Plan: (2) Hyponatremia: Code(s): E87.1 - Hypo-osmolality and hyponatremia Status: Chronic Assessment and Plan: (3) Pulmonary cachexia due to chronic obstructive pulmonary disease: Code(s): J44.9 - Chronic obstructive pulmonary disease, unspecified; R64 - Cachexia Status: Chronic Assessment and Plan: Plan She has acute on chronic hypercapnic hypoxemic respiratory failure, has reasonable metabolic compensation. I am recommending stopping the noninvasive positive-pressure ventilation, patient is refusing to use it when she is alert enough to communicate. She has end end stage lung disease, does not use her trilogy device at home, pCO2 is now improving in in the is 70 range which is acceptable. Her pH is normalized. I would provide oxygen as needed to maintain a saturation 90-94% but not higher. Nebulized short-acting bronchodilators as she tolerates. I agree with her son who changed her code status to DNR. Goal should be comfort. * Stop Arterial blood gases. Stop BiPAP/ nppv * Palliative Care/Hospice; * Bronchodilators p.r.n. shortness of breath. These can provide relief from dyspnea. * low flow O2 to keep saturation 90-94% History of Present Illness History of Present Illness Consult date: 01/05/24 Chief complaint: Hyponatremia, Adult failure to thrive Narrative: pt was seen January 04 at 20:55 in Room 211 most recent pulmonary consultation was 01/22/2023 Dr Al MARKS: Esther Brink is a 58-year-old woman with COPD on O2, admitted on 01/03/2024 with nausea vomiting and weakness for 2 days. She has failure to thrive, her body mass index is 12. Yesterday January 03 was made DNAR. This decision was from her son. She has elevated carbon dioxide levels this is in the 60-93 range in she will wear BiPAP. Today it is better 73. The patient just receive Xanax before I came to talk with her. She appears to be resting comfortably on nasal cannula 1 liter/minute. This was not primarily a respiratory admission, more GI complaints and a diminished mental status secondary to hypercapnia. She is not talking to me now, and did not complain of respiratory complaints suc has cough on admission when she was more alert. 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 Severe panlobular emphysema throughout all lung [place] on CT scan; Uses O2 at home; on rest 3 L , ambulation 4 L and sleep 3-4 L, intubated 03/08/2020 and 07/02/2020, on nocturnal noninvasive ventilation with a trilogy with poor compliance (initiated 08/23/2022), on Daliresp and triple inhalers. She is status post left upper lobectomy and bleb resection for spontaneous pneumothorax in 2012. She has pulmonary cachexia. She has multiple hospitalizations for COPD exacerbations [id number] through 10/07/2022, 07/14/2022 through 07/16/2022, 07/02/2022 through 07/05/2022, 04/02/2022 through 04/06/2022, 11/19/21 through 11/23/2021, 10/23/21 through 10/26/21, 08/21/21 through 08/22/21 and ER visits on 10/18/2022, 06/22/2022, 03/29/22, 03/22/2022, 08/02/21 and 11/06/20. Patient smoked 2 PPD from age [age] for 82 PY and quit about 2 years ago. She also has severe anxiety. Chronic hypercarbic respiratory failure and has not tolerated nocturnal noninvasive ventilator despite multiple setting changes and has not tolerated daytime mouth piece ventilation as an outpatient. DATA * 01/[address]; no acute process * 01/02 CXR; no
[2024-01-06] VITALS (18 sets, daily range): BP systolic 92–149; BP diastolic 62–108; PULSE 86–101; RESP 16–20; TEMP 36.3–36.8; O2SAT 95–100
[2024-01-06 05:06] LABS: Basophils Percent Auto 0.4 % (0.2-1.2); Eosinophils Absolute Auto 0.1 K/mm3 (0-0.3); Eosinophils Percent Auto 1.5 % (0-4.4); Hematocrit 35.4 % (37.0-47.0); Hemoglobin 10.7 g/dL (12.0-15.0); Immature Granulocyte Absolute 0.02 K/mm3 (0.00-0.031); Immature Granulocyte Percent A 0.4 % (0-0.5); Lymphocytes Absolute Auto 0.56 K/mm3 (0.9-3.2); Mean Corpuscular HGB Conc 30.2 g/dl (32-36); Mean Corpuscular Hemoglobin 28.9 pg (26-34); Mean Corpuscular Volume 95.7 fl (80-100); Mean Platelet Volume 8.2 fl (7.4-10.4); Monocytes Absolute Auto 0.7 K/mm3 (0.1-0.6); Monocytes Percent Auto 15.5 % (2.6-8.5); Neutrophils Absolute Auto 3.3 K/mm3 (1.3-6.7); Neutrophils Percent Auto 70.2 % (45.5-73.1); Platelet Count Result 277 k/mm3 (150-375); Red Cell Distribution Width 12.8 % (11.5-14.5); White Blood Count 4.7 K/mm3 (4.5-10.0)
[2024-01-06 05:38] LABS: Blood Urea Nitrogen 5 mg/dL (7-17); Carbon Dioxide > 40 mmol/L (22-30); Chloride 76 mmol/L (98-107); Estimated CRCL calculation 98 ml/min; Estimated Glomerular Filt Rate > 60; Glucose 144 mg/dL (65-110); Potassium 3.4 mmol/L (3.4-5.0); Sodium 129 mmol/L (137-145)
[2024-01-06] MEDS: ACETAMINOPHEN 325 MG TABLET 650 MG PO (08:18)
[2024-01-06] MEDS: FUROSEMIDE 10 MG TABLET PO ×2 (08:19→17:09)
[2024-01-06] MEDS: THIAMINE HCL 200 MG/2 ML VIAL 100 MG IV PUSH (08:20)
[2024-01-06] MEDS: SODIUM CHLORIDE 1 GM TABLET PO ×2 (08:20→17:09)
--- NOTE | 2024-01-06 08:52 | PM.IMPN ---
Progress Note: A&P Assessment and Plan (1) Hyponatremia: Code(s): E87.1 - Hypo-osmolality and hyponatremia Status: Chronic Assessment and Plan: - baseline hyponatremic, Oct 2023 range 132-135 - seizure precautions - call provider if sodium increases by more than 2 mmol/L in 4 hours or greater than 8 mmol/L in a 24 hour period - review of chart, hyponatremia previously related to alcohol use. Patient also on benzos daily. - nephrology consulted, Sotero SEGOVIA. increased sodium tab 1 g BID PO lasix 10 mg BID fluid restriction - repeat sodium Q4H until corrected 01/05: Sodium is 129 today. 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 - last refill on 12/14/2023, ran out on 3 days ago on 12/31 (11 days early = 33 pillls) - [facility] protocol for withdrawal - seizure precautions - neuro checks Q4, if patient deteriorates then neuro checks Q2 - restart home dose of Xanax 1 mg TID - hx of alcohol abuse - antiemetics p.r.n. (3) Metabolic encephalopathy: Code(s): G93.41 - Metabolic encephalopathy Status: Acute Assessment and Plan: - likely multifactorial, hyponatremia and benzo withdrawal - neuro checks q.4 - no focal deficits or signs of trauma on exam, no report of trauma by family or patient. - head CT showed no acute intracranial process - does appear to have some underlying cognitive impairment/short-term memory loss - folic acid 9.1 - thiamine IVP daily (4) Protein-calorie malnutrition, severe: Code(s): E43 - Unspecified severe protein-calorie malnutrition Status: Acute Assessment and Plan: - monitor phosphorus levels daily - consult to dial buffer, at risk for refeeding syndrome - TID supplementation, needs to increase calories +500 cals (5) Adult failure to thrive: Code(s): R62.7 - Adult failure to thrive Status: Acute Assessment and Plan: - current weight: 29.4 kg, BMI 12.2 - per son who is POA - Lino Herrera, they have previously attempted to have patient placed but were unable to because either patient's mental status improved or they did not qualify - care coordination consulted -spoke with Lino and patient is now DNR per her wishes - pt/ot ordered for d/c planning 01/05: Discussed with patient code status and possible hospice. Patient was not receptive to conversation. She was also aware that she was made a DNR and she is not okay with this. She states she does not want her me making decisions for her. She would like all decisions to be made through Neo Brooke (ex-) or Liam Brooke (second son). Put her back to full code. (6) Chronic respiratory failure with hypoxia and hypercapnia: Code(s): J96.11 - Chronic respiratory failure with hypoxia; J96.12 - Chronic respiratory failure with hypercapnia Status: Chronic Assessment and Plan: Repeat ABG showed worsening respiratory acidosis, 01/04 improved with bipap Bipap ordered with settings 12/5, back up 14 after being discussed with Dr. Suggs patient only wore bipap last night about 4 hours pulmonology consulted restarted Trelegy and PRN albuterol 01/05: Seen by pulmonology. Patient is noncompliant with medications on BiPAP at home. PCO2 is improving in the 70s pH is normalized. Okay to provide oxygen as needed to maintain saturations 90-94%. Plan Feeding: Regular with Ensure Analgesia: Tylenol Thromboembolic prophylaxis: SCD Ulcer prophylaxis: Glycemic control: Bowel regimen: Lines: Antibiotics: Disposition: Home likely tomorrow. 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
[2024-01-06] MEDS: FLUTICASONE/UMECLIDIN/VILANTER 100-62.5-25 MCG ELLIPTA 1 PUFF INHALATION (08:53)
[2024-01-06 11:59] LABS: Glucose Point of Care 130 mg/dl (65-105)
[2024-01-06 12:29] LABS: Sodium 128 mmol/L (137-145)
--- NOTE | 2024-01-06 13:20 | PM.PNNEP ---
Progress Note: A&P Assessment and Plan (1) Hyponatremia: Code(s): E87.1 - Hypo-osmolality and hyponatremia Status: Chronic Assessment and Plan: slow improvement noted recurrent/chronic issue best sodiums to date run 132 - 135mmol/L; however, has been as low as 117mmol/L in the past admitted with a sodium of 118 s/p normal saline IVFs from ER risk factors for hyponatremia: prerenal factors (diminished oral intake) alcohol use (beer potomania?) SSRI use nausea/vomiting/diarrhea interventions instituted: 1000 mL fluid restriction salt tabs bid lasix bid evaluation to date: TSH okay corisol WNL urine electrolytes non-prerenal serum/urine osmo and electrophoresis pending follow repeat sodium levels (2) Metabolic encephalopathy: Code(s): G93.41 - Metabolic encephalopathy Status: Acute Assessment and Plan: due to low sodium, EtOH withdrawal, or benzo withdrawal or combination of all(?) head CT negative reported has some underlying short term memory issues and cognitive impairment follow mentation (3) End stage COPD: Code(s): J44.9 - Chronic obstructive pulmonary disease, unspecified Status: Chronic Assessment and Plan: non-compliant with previous interventions/therapy follow respiratory status Pulmonary recommendations noted (4) Failure to thrive: Status: Acute Assessment and Plan: long standing issue as noted on previous hospitalizations not sure what else can be done give previous attempts at intervention have failed Will continue to follow. Subjective Date/time seen: 01/06/24 13:20 Interval history: Follow-up for acute on chronic hyponatremia. No apparent distress noted/voiced at the time of my visit but not really answering any of my questions -- just simply nods when I talk with her; sodium improving. Exam Narrative: General: ill appearing female in NAD Heart: normal S1 and S2; no rub Lungs: coarse breath sounds Abdomen: soft, nontender, nondistended, positive bowel sounds Extremities: no cyanosis or clubbing; no edema Skin: warm and dry Objective Data Vital Signs Vital Signs: Vital Signs Temp Pulse Resp BP Pulse Ox O2 Del Method O2 Flow Rate 01/06/24 13:00 87 01/06/24 11:58 96 98 Nasal Cannula 1 01/06/24 11:58 93 01/06/24 10:30 101 H 01/06/24 08:35 86 18 95 Nasal Cannula 1 01/06/24 08:35 86 01/06/24 11:32 97.8 F 96 18 125/74 98 01/06/24 08:10 95 Nasal Cannula 1 01/06/24 07:57 97.3 F L 86 18 107/74 99 01/06/24 05:28 92 01/06/24 05:16 97 Nasal Cannula 1 01/06/24 04:27 97.5 F L 100 18 93/63 L 96 01/06/24 04:00 93 18 96 Nasal Cannula 1 01/06/24 04:00 92/62 L 01/06/24 04:00 93 01/06/24 02:00 98 01/06/24 00:15 97.5 F L 96 18 92/62 L 96 01/05/24 23:59 94 18 98 Nasal Cannula 1 01/05/24 23:59 108/53 L 01/05/24 23:59 95 01/05/24 20:00 88 18 96 Nasal Cannula 1 01/05/24 20:00 108/53 L 01/05/24 20:00 88 01/05/24 19:05 97.5 F L 97 18 108/53 L 96 01/05/24 18:00 103 H Intake/Output Intake/Output: Intake & Output 01/03/24 01/04/24 01/05/24 01/06/24 23:59 23:59 23:59 23:59 Intake Total 1100 360 480 180 Output Total 500 300 500 Balance 1100 -140 180 -320 Meds/Results Medications: Active Medications Generic Name Dose Route Start Last Admin Trade Name Freq PRN Reason Stop Dose Admin Acetaminophen 650 mg 01/03/24 13:00 01/06/24 08:18 Acetaminophen 325 Mg Tablet PO 650 mg Q4H PRN Administration Mild Pain (1-3) or Fever Albuterol 2 puff 01/04/24 14:49 01/05/24 08:44 Albuterol Sulfate (*Sp) Aerosol 1 Puff INHALATION 2 puff QIDRT PRN Administration shortness of breath or wheezing Alprazolam 1 mg 01/03/24 20:17 01/05/24 21:09
--- NOTE | 2024-01-06 13:20 | P.PNNP_ITS ---
Progress Note: A&P Assessment and Plan (1) Hyponatremia: Code(s): E87.1 - Hypo-osmolality and hyponatremia Status: Chronic Assessment and Plan: * slow improvement noted * recurrent/chronic issue * best sodiums to date run 132 - 135mmol/L; however, has been as low as 117mmol/L in the past * admitted with a sodium of 118 * s/p normal saline IVFs from ER * risk factors for hyponatremia: * prerenal factors (diminished oral intake) * alcohol use (beer potomania?) * SSRI use * nausea/vomiting/diarrhea * interventions instituted: * 1000 mL fluid restriction * salt tabs bid * lasix bid * evaluation to date: * TSH okay * corisol WNL * urine electrolytes non-prerenal * serum/urine osmo and electrophoresis pending * follow repeat sodium levels (2) Metabolic encephalopathy: Code(s): G93.41 - Metabolic encephalopathy Status: Acute Assessment and Plan: * due to low sodium, EtOH withdrawal, or benzo withdrawal or combination of all(?) * head CT negative * reported has some underlying short term memory issues and cognitive impairment * follow mentation (3) End stage COPD: Code(s): J44.9 - Chronic obstructive pulmonary disease, unspecified Status: Chronic Assessment and Plan: * non-compliant with previous interventions/therapy * follow respiratory status * Pulmonary recommendations noted (4) Failure to thrive: Status: Acute Assessment and Plan: * long standing issue as noted on previous hospitalizations * not sure what else can be done give previous attempts at intervention have failed Will continue to follow. Subjective Date/time seen: 01/06/24 13:20 Interval history: Follow-up for acute on chronic hyponatremia. No apparent distress noted/voiced at the time of my visit but not really answering any of my questions -- just simply nods when I talk with her; sodium improving. Exam Narrative: General: ill appearing female in NAD Heart: normal S1 and S2; no rub Lungs: coarse breath sounds Abdomen: soft, nontender, nondistended, positive bowel sounds Extremities: no cyanosis or clubbing; no edema Skin: warm and dry Objective Data Vital Signs Vital Signs: Vital Signs Temp Pulse Resp BP Pulse Ox O2 Del Method O2 Flow Rate 01/06/24 13:00 87 01/06/24 11:58 96 98 Nasal Cannula 1 01/06/24 11:58 93 01/06/24 10:30 101 H 01/06/24 08:35 86 18 95 Nasal Cannula 1 01/06/24 08:35 86 01/06/24 11:32 97.8 F 96 18 125/74 98 01/06/24 08:10 95 Nasal Cannula 1 01/06/24 07:57 97.3 F L 86 18 107/74 99 01/06/24 05:28 92 01/06/24 05:16 97 Nasal Cannula 1 01/06/24 04:27 97.5 F L 100 18 93/63 L 96 01/06/24 04:00 93 18 96 Nasal Cannula 1 01/06/24 04:00 92/62 L 01/06/24 04:00 93 01/06/24 02:00 98 01/06/24 00:15 97.5 F L 96 18 92/62 L 96 01/05/24 23:59 94 18 98 Nasal Cannula 1 01/05/24 23:59 108/53 L 01/05/24 23:59 95 01/05/24 20:00 88 18 96 Nasal Cannula 1 01/05/24 20:00 108/53 L 01/05/24 20:00 88 01/05/24 19:05 97.5 F L 97 18 108/53 L
--- NOTE | 2024-01-06 13:41 | PCOTNOTE ---
Attempted to see Patient at this time. Patient refused to participate in any activities. Patient stated, I just need rest, please leave .
[2024-01-06 18:30] LABS: Glucose Point of Care 152 mg/dl (65-105)
[2024-01-06] MEDS: ONDANSETRON INJ 4 MG/2 ML VIAL IV PUSH (20:33)
[2024-01-06] MEDS: ALPRAZolam (*CRX) 0.5 MG TABLET 1 MG PO (20:33)
--- NOTE | 2024-01-06 22:45 | PC.NURSE ---
This patient, Esther Brink, was transferred to [[id number] ] on 01/06/24 at 2246. Personal belongings sent with patient. Report given to [Micaela trinidad ]. Appropriate documentation sent with patient.
[2024-01-06 23:31] LABS: Glucose Point of Care 97 mg/dl (65-105)
[2024-01-06 23:49] LABS: Glucose Point of Care 91 mg/dl (65-105)
[2024-01-07] VITALS (7 sets, daily range): BP systolic 95–104; BP diastolic 58–75; PULSE 90–95; RESP 12–18; TEMP 36.3–37.2; O2SAT 97–100
[2024-01-07 06:40] LABS: Glucose Point of Care 77 mg/dl (65-105)
[2024-01-07 06:54] LABS: Basophils Percent Auto 0.7 % (0.2-1.2); Eosinophils Absolute Auto 0.1 K/mm3 (0-0.3); Eosinophils Percent Auto 1.2 % (0-4.4); Hematocrit 35.6 % (37.0-47.0); Hemoglobin 10.9 g/dL (12.0-15.0); Immature Granulocyte Absolute 0.01 K/mm3 (0.00-0.031); Immature Granulocyte Percent A 0.2 % (0-0.5); Lymphocytes Absolute Auto 0.53 K/mm3 (0.9-3.2); Mean Corpuscular HGB Conc 30.6 g/dl (32-36); Mean Corpuscular Hemoglobin 28.5 pg (26-34); Mean Platelet Volume 8.6 fl (7.4-10.4); Monocytes Absolute Auto 0.8 K/mm3 (0.1-0.6); Monocytes Percent Auto 13.1 % (2.6-8.5); Neutrophils Absolute Auto 4.5 K/mm3 (1.3-6.7); Neutrophils Percent Auto 75.8 % (45.5-73.1); Platelet Count Result 287 k/mm3 (150-375); Red Blood Count 3.83 M/mm3 (4.2-5.4); Red Cell Distribution Width 12.8 % (11.5-14.5); White Blood Count 5.9 K/mm3 (4.5-10.0)
[2024-01-07 07:42] LABS: Alanine Aminotransferase 11 U/L (6-35); Albumin Level 3.4 g/dL (3.5-5.1); Alkaline Phosphatase 87 U/L (38-126); Aspartate Amino Transferase 36 U/L (14-36); Bilirubin,Total 0.7 mg/dL (0.2-1.3); Blood Urea Nitrogen 6 mg/dL (7-17); Calcium 9.1 mg/dL (8.4-10.2); Carbon Dioxide > 40 mmol/L (22-30); Chloride 69 mmol/L (98-107); Estimated CRCL calculation 106 ml/min; Estimated Glomerular Filt Rate > 60; Glucose 84 mg/dL (65-110); Magnesium 1.4 mg/dL (1.6-2.3); Potassium 3.6 mmol/L (3.4-5.0); Sodium 123 mmol/L (137-145)
--- NOTE | 2024-01-07 08:44 | PM.IMPN ---
Progress Note: A&P Assessment and Plan (1) Hyponatremia: Code(s): E87.1 - Hypo-osmolality and hyponatremia Status: Chronic Assessment and Plan: - baseline hyponatremic, Oct 2023 range 132-135 - seizure precautions - call provider if sodium increases by more than 2 mmol/L in 4 hours or greater than 8 mmol/L in a 24 hour period - review of chart, hyponatremia previously related to alcohol use. Patient also on benzos daily. - nephrology consulted, Sotero SEGOVIA. increased sodium tab 1 g BID PO lasix 10 mg BID fluid restriction - repeat sodium Q4H until corrected 01/05: Sodium is 129 today. 01/06: Sodium was 123 this morning and then decreased to 118 at noon. Nephrology ordered hypertonic saline. 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 - last refill on 12/14/2023, ran out on 3 days ago on 12/31 (11 days early = 33 pillls) - [facility] protocol for withdrawal - seizure precautions - neuro checks Q4, if patient deteriorates then neuro checks Q2 - restart home dose of Xanax 1 mg TID - hx of alcohol abuse - antiemetics p.r.n. (3) Metabolic encephalopathy: Code(s): G93.41 - Metabolic encephalopathy Status: Acute Assessment and Plan: - likely multifactorial, hyponatremia and benzo withdrawal - neuro checks q.4 - no focal deficits or signs of trauma on exam, no report of trauma by family or patient. - head CT showed no acute intracranial process - does appear to have some underlying cognitive impairment/short-term memory loss - folic acid 9.1 - thiamine IVP daily (4) Protein-calorie malnutrition, severe: Code(s): E43 - Unspecified severe protein-calorie malnutrition Status: Acute Assessment and Plan: - monitor phosphorus levels daily - consult to fitting room supervisor, at risk for refeeding syndrome - TID supplementation, needs to increase calories +500 cals (5) Adult failure to thrive: Code(s): R62.7 - Adult failure to thrive Status: Acute Assessment and Plan: - current weight: 29.4 kg, BMI 12.2 - per son who is POA - Lino Little, they have previously attempted to have patient placed but were unable to because either patient's mental status improved or they did not qualify - care coordination consulted -spoke with Lino and patient is now DNR per her wishes - pt/ot ordered for d/c planning 01/05: Discussed with patient code status and possible hospice. Patient was not receptive to conversation. She was also unaware that she was made a DNR and she is not okay with this. She states she does not want Qamar (Ron) making decisions for her. She would like all decisions to be made through Neo Brooke (ex-) or Liam Brooke (second son). Put her back to full code. (6) Chronic respiratory failure with hypoxia and hypercapnia: Code(s): J96.11 - Chronic respiratory failure with hypoxia; J96.12 - Chronic respiratory failure with hypercapnia Status: Chronic Assessment and Plan: Repeat ABG showed worsening respiratory acidosis, 01/04 improved with bipap Bipap ordered with settings 12/5, back up 14 after being discussed with Dr. Suggs patient only wore bipap last night about 4 hours pulmonology consulted restarted Trelegy and PRN albuterol 01/05: Seen by pulmonology. Patient is noncompliant with medications on BiPAP at home. PCO2 is improving in the 70s pH is normalized. Okay to provide oxygen as needed to maintain saturations 90-94%. Plan Feeding: Regular with Ensure Analgesia: Tylenol Thromboembolic prophylaxis: SCD Ulcer prophylaxis: Glycemic control: Bowel regimen: Lines: Antibiotics: Disposition: Home likely tomorrow. Subjective Date/time seen: 01/07/24 08:44 Interval history: 58 y/o F presents here with corrie
[2024-01-07] MEDS: ALPRAZolam (*CRX) 0.5 MG TABLET 1 MG PO ×2 (09:15→23:11)
[2024-01-07] MEDS: THIAMINE HCL 200 MG/2 ML VIAL 100 MG IV PUSH (09:16)
[2024-01-07] MEDS: FUROSEMIDE 10 MG TABLET PO ×2 (09:16→18:20)
[2024-01-07] MEDS: MAGNESIUM OXIDE 400 MG TABLET PO (09:23)
[2024-01-07] MEDS: SODIUM CHLORIDE 1 GM TABLET PO ×2 (09:24→18:21)
--- NOTE | 2024-01-07 10:36 | PCPTNOTE ---
Patient refused treatment this session. Patient reported she does not need therapy right now. Educated patient on the importance of therapy and working with therapy, and gave encouragement to participate with PT. Patient continued to refuse and stated who let you in here?
[2024-01-07] MEDS: FLUTICASONE/UMECLIDIN/VILANTER 100-62.5-25 MCG ELLIPTA 1 PUFF INHALATION (10:37)
--- NOTE | 2024-01-07 11:19 | PCNFU ---
Nutrition Follow-Up Complete: Severe malnutrition related to inadequate protein energy intake as evidenced by poor po intake greater than 1 month, a significant weight loss of -19% x 3 months with a BMI of 12.2, and NFPE findings for severe subcutaneous fat loss (cheeks, biceps) and severe muscle wasting (gnosticism, clavicle, shoulder). Goal:PO intake greater than 50% of meals and supplements Pt current nutrition is Regular, 1000ml fluid restriction, Ensure Enlive TID. Nutrition recommendation: continue with current plan of care Last recorded weight is 31 kg. Bowel Motility: +BM 01/06 Labs Reviewed: Hgb:10.9, HCT:35.6, Alb:3.4, NA:123 Meds Noted: lasix, zofran, thiamine Skin: no skin issues noted Additional Notes: Pt continues on a regular diet, intake poor, pt asleep during assessment. Not compliant with most of care. Nursing reports little intake of meals. Continue to encourage intake of meals and supplements. Monitor intake, wt, labs. Follow up in 3 days.
[2024-01-07 11:30] LABS: Glucose Point of Care 97 mg/dl (65-105)
[2024-01-07 12:43] LABS: Sodium 118 mmol/L (137-145)
--- NOTE | 2024-01-07 13:16 | P.PNNP_ITS ---
Progress Note: A&P Assessment and Plan (1) Hyponatremia: Code(s): E87.1 - Hypo-osmolality and hyponatremia Status: Chronic Assessment and Plan: * recurrent/chronic issue * best sodiums to date run 132 - 135mmol/L; however, has been as low as 117mmol/L in the past * admitted with a sodium of 118 * s/p normal saline IVFs from ER * risk factors for hyponatremia: * prerenal factors (diminished oral intake) * alcohol use (beer potomania?) * SSRI use * nausea/vomiting/diarrhea * interventions instituted: * 1000 mL fluid restriction * salt tabs bid * lasix bid * evaluation to date: * TSH okay * corisol WNL * urine electrolytes non-prerenal * serum/urine osmo and electrophoresis pending * 3% saline today due to acute drop in sodium as noted by recent labs * follow repeat sodium levels (2) Metabolic encephalopathy: Code(s): G93.41 - Metabolic encephalopathy Status: Acute Assessment and Plan: * improvement noted * due to low sodium, EtOH withdrawal, or benzo withdrawal or combination of all(?) * head CT negative * reported has some underlying short term memory issues and cognitive impairment * follow mentation (3) End stage COPD: Code(s): J44.9 - Chronic obstructive pulmonary disease, unspecified Status: Chronic Assessment and Plan: * non-compliant with previous interventions/therapy * follow respiratory status * Pulmonary recommendations noted (4) Failure to thrive: Status: Acute Assessment and Plan: * long standing issue as noted on previous hospitalizations * not sure what else can be done give previous attempts at intervention have failed Will continue to follow. Subjective Date/time seen: 01/07/24 13:16 Interval history: Follow-up for acute on chronic hyponatremia. Appears to be doing reasonably well today; no apparent distress, per nursing, oral intake remains quite poor despite attempts to increase intake; no other issues/events at this time. Exam Narrative: General: ill appearing female in NAD Heart: normal S1 and S2; no rub Lungs: coarse breath sounds Abdomen: soft, nontender, nondistended, positive bowel sounds Extremities: no cyanosis or clubbing; no edema Skin: warm and intact Objective Data Vital Signs Vital Signs: Vital Signs Temp Pulse Resp BP Pulse Ox O2 Del Method O2 Flow Rate 01/07/24 10:38 97 Nasal Cannula 2 01/07/24 08:00 97.9 F 94 18 95/68 L 100 01/07/24 05:34 98.9 F 95 18 99/72 L 100 01/06/24 21:00 96 Nasal Cannula 1 01/06/24 20:00 93 20 96 Nasal Cannula 1 01/06/24 19:47 97.6 F 93 20 145/80 H 96 01/06/24 16:00 90 01/06/24 15:57 98.3 F 95 16 149/108 H 100 01/06/24 14:00 87 Intake/Output Intake/Output: Intake & Output 01/04/24 01/05/24 01/06/24 01/07/24 23:59 23:59 23:59 23:59 Intake Total 360 480 180 322 Output Total 500 300 850 Balance -140 180 -670 322 Meds/Results Medications: Active Medications Generic Name Dose Route Start Last Admin Trade Name Freq PRN Reason Stop Dose Admin Acetaminophen 650 mg 01/03/24 13:00
--- NOTE | 2024-01-07 13:16 | PM.PNNEP ---
Progress Note: A&P Assessment and Plan (1) Hyponatremia: Code(s): E87.1 - Hypo-osmolality and hyponatremia Status: Chronic Assessment and Plan: recurrent/chronic issue best sodiums to date run 132 - 135mmol/L; however, has been as low as 117mmol/L in the past admitted with a sodium of 118 s/p normal saline IVFs from ER risk factors for hyponatremia: prerenal factors (diminished oral intake) alcohol use (beer potomania?) SSRI use nausea/vomiting/diarrhea interventions instituted: 1000 mL fluid restriction salt tabs bid lasix bid evaluation to date: TSH okay corisol WNL urine electrolytes non-prerenal serum/urine osmo and electrophoresis pending 3% saline today due to acute drop in sodium as noted by recent labs follow repeat sodium levels (2) Metabolic encephalopathy: Code(s): G93.41 - Metabolic encephalopathy Status: Acute Assessment and Plan: improvement noted due to low sodium, EtOH withdrawal, or benzo withdrawal or combination of all(?) head CT negative reported has some underlying short term memory issues and cognitive impairment follow mentation (3) End stage COPD: Code(s): J44.9 - Chronic obstructive pulmonary disease, unspecified Status: Chronic Assessment and Plan: non-compliant with previous interventions/therapy follow respiratory status Pulmonary recommendations noted (4) Failure to thrive: Status: Acute Assessment and Plan: long standing issue as noted on previous hospitalizations not sure what else can be done give previous attempts at intervention have failed Will continue to follow. Subjective Date/time seen: 01/07/24 13:16 Interval history: Follow-up for acute on chronic hyponatremia. Appears to be doing reasonably well today; no apparent distress, per nursing, oral intake remains quite poor despite attempts to increase intake; no other issues/events at this time. Exam Narrative: General: ill appearing female in NAD Heart: normal S1 and S2; no rub Lungs: coarse breath sounds Abdomen: soft, nontender, nondistended, positive bowel sounds Extremities: no cyanosis or clubbing; no edema Skin: warm and intact Objective Data Vital Signs Vital Signs: Vital Signs Temp Pulse Resp BP Pulse Ox O2 Del Method O2 Flow Rate 01/07/24 10:38 97 Nasal Cannula 2 01/07/24 08:00 97.9 F 94 18 95/68 L 100 01/07/24 05:34 98.9 F 95 18 99/72 L 100 01/06/24 21:00 96 Nasal Cannula 1 01/06/24 20:00 93 20 96 Nasal Cannula 1 01/06/24 19:47 97.6 F 93 20 145/80 H 96 01/06/24 16:00 90 01/06/24 15:57 98.3 F 95 16 149/108 H 100 01/06/24 14:00 87 Intake/Output Intake/Output: Intake & Output 01/04/24 01/05/24 01/06/24 01/07/24 23:59 23:59 23:59 23:59 Intake Total 360 480 180 322 Output Total 500 300 850 Balance -140 180 -670 322 Meds/Results Medications: Active Medications Generic Name Dose Route Start Last Admin Trade Name Freq PRN Reason Stop Dose Admin Acetaminophen 650 mg 01/03/24 13:00 01/06/24 08:18 Acetaminophen 325 Mg Tablet PO 650 mg Q4H PRN Administration Mild Pain (1-3) or Fever Albuterol 2 puff 01/04/24 14:49 01/05/24 08:44 Albuterol Sulfate (*Sp) Aerosol 1 Puff INHALATION 2 puff QIDRT PRN Administration shortness of breath or wheezing Alprazolam 1 mg 01/03/24 20:17 01/07/24 09:15 Alprazolam (*Crx) 0.5 Mg Tablet PO 1 mg TID PRN Administration Anxiety Fluticasone/Umeclidinium/Vilanterol 1 puff 01/05/24 09:00 01/07/24 10:37 Fluticasone/Umeclidin/Vilanter 100-62.5-25 Mcg Ellipta INHALATION 1 puff DAILY DAILY Administration Furosemide 10 mg 01/04/24 17:00 01/07/24 09:16 Furosemide 10 Mg Tablet PO 10 mg BID DIALY Administration Sodium Chloride 500 mls @ 30 mls/hr 01/07/24 13:05 Sodium Chloride 3% IV CONT 12/18
[2024-01-07 16:38] LABS: Glucose Point of Care 136 mg/dl (65-105)
[2024-01-07 18:25] LABS: Sodium 123 mmol/L (137-145)
[2024-01-07 19:14] LABS: Creatinine Urine 59.6 mg/dL; Total Protein Urine Random 25 mg/dL; Ur Ttl Prot Creatinine Ratio 0.42 mg/mg (0-0.20)
[2024-01-07 20:49] LABS: Glucose Point of Care 93 mg/dl (65-105)
[2024-01-07 23:46] LABS: Glucose Point of Care 120 mg/dl (65-105)
[2024-01-08] VITALS (8 sets, daily range): BP systolic 85–98; BP diastolic 55–68; PULSE 90–114; RESP 12–17; TEMP 36.2–37; O2SAT 93–100
[2024-01-08 06:34] LABS: Basophils Percent Auto 0.5 % (0.2-1.2); Eosinophils Absolute Auto 0.1 K/mm3 (0-0.3); Eosinophils Percent Auto 1.1 % (0-4.4); Hematocrit 34.9 % (37.0-47.0); Hemoglobin 10.8 g/dL (12.0-15.0); Immature Granulocyte Absolute 0.02 K/mm3 (0.00-0.031); Immature Granulocyte Percent A 0.4 % (0-0.5); Lymphocytes Absolute Auto 0.59 K/mm3 (0.9-3.2); Lymphocytes Percent Auto 10.5 % (18.3-44.2); Mean Corpuscular HGB Conc 30.9 g/dl (32-36); Mean Corpuscular Hemoglobin 28.6 pg (26-34); Mean Corpuscular Volume 92.3 fl (80-100); Mean Platelet Volume 8.6 fl (7.4-10.4); Monocytes Absolute Auto 0.7 K/mm3 (0.1-0.6); Monocytes Percent Auto 11.7 % (2.6-8.5); Neutrophils Absolute Auto 4.3 K/mm3 (1.3-6.7); Neutrophils Percent Auto 75.8 % (45.5-73.1); Platelet Count Result 292 k/mm3 (150-375); Red Blood Count 3.78 M/mm3 (4.2-5.4); Red Cell Distribution Width 12.5 % (11.5-14.5); White Blood Count 5.6 K/mm3 (4.5-10.0)
[2024-01-08 07:11] LABS: Alanine Aminotransferase 12 U/L (6-35); Albumin Level 3.3 g/dL (3.5-5.1); Alkaline Phosphatase 81 U/L (38-126); Aspartate Amino Transferase 30 U/L (14-36); Bilirubin,Total 0.4 mg/dL (0.2-1.3); Blood Urea Nitrogen 10 mg/dL (7-17); Carbon Dioxide > 40 mmol/L (22-30); Chloride 77 mmol/L (98-107); Estimated CRCL calculation 72 ml/min; Estimated Glomerular Filt Rate > 60; Glucose 83 mg/dL (65-110); Magnesium 1.6 mg/dL (1.6-2.3); Potassium 3.7 mmol/L (3.4-5.0); Sodium 123 mmol/L (137-145)
--- NOTE | 2024-01-08 07:35 | PM.IMPN ---
Progress Note: A&P Assessment and Plan (1) Hyponatremia: Code(s): E87.1 - Hypo-osmolality and hyponatremia Status: Chronic Assessment and Plan: - baseline hyponatremic, Oct 2023 range 132-135 - seizure precautions - call provider if sodium increases by more than 2 mmol/L in 4 hours or greater than 8 mmol/L in a 24 hour period - review of chart, hyponatremia previously related to alcohol use. Patient also on benzos daily. - nephrology consulted, Sotero SEGOVIA. increased sodium tab 1 g BID PO lasix 10 mg BID fluid restriction - repeat sodium Q4H until corrected 01/05: Sodium is 129 today. 01/06: Sodium was 123 this morning and then decreased to 118 at noon. Nephrology ordered hypertonic saline. 01/07: Na 123 today. Urine studies pending per nephrology work up. 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 - last refill on 12/14/2023, ran out on 3 days ago on 12/31 (11 days early = 33 pillls) - [facility] protocol for withdrawal - seizure precautions - neuro checks Q4, if patient deteriorates then neuro checks Q2 - restart home dose of Xanax 1 mg TID - hx of alcohol abuse - antiemetics p.r.n. 01/07:Patient seems to be back to her baseline. She has periods of short term memory loss which is normal per her son Liam. She otherwise has been alert and able to tell me her name, where she is, and occasionally knows the month. She is frequently unsure of the year. (3) Metabolic encephalopathy: Code(s): G93.41 - Metabolic encephalopathy Status: Acute Assessment and Plan: - likely multifactorial, hyponatremia and benzo withdrawal - neuro checks q.4 - no focal deficits or signs of trauma on exam, no report of trauma by family or patient. - head CT showed no acute intracranial process - does appear to have some underlying cognitive impairment/short-term memory loss - folic acid 9.1 - thiamine IVP daily (4) Protein-calorie malnutrition, severe: Code(s): E43 - Unspecified severe protein-calorie malnutrition Status: Acute Assessment and Plan: - monitor phosphorus levels daily - consult to senior technical project manager, at risk for refeeding syndrome - TID supplementation, needs to increase calories +500 cals 01/07: Discussed the possibility of a feeding tube with her but she declined. (5) Adult failure to thrive: Code(s): R62.7 - Adult failure to thrive Status: Acute Assessment and Plan: - current weight: 29.4 kg, BMI 12.2 - per son who is POA - Lino Herrera, they have previously attempted to have patient placed but were unable to because either patient's mental status improved or they did not qualify - care coordination consulted - pt/ot ordered for d/c planning 01/05: Discussed with patient code status and possible hospice. Patient was not receptive to conversation. She was also unaware that she was made a DNR and she is not okay with this. She states she does not want Qamar (Ron) making decisions for her. She would like all decisions to be made through Neo Brooke (ex-) or Liam Brooke (second son). Put her back to full code. 01/07: Patient made DNR after speaking with son Liam. He is speaking with his brother and father about hospice and placement for Esther. (6) Chronic respiratory failure with hypoxia and hypercapnia: Code(s): J96.11 - Chronic respiratory failure with hypoxia; J96.12 - Chronic respiratory failure with hypercapnia Status: Chronic Assessment and Plan: Repeat ABG showed worsening respiratory acidosis, 01/04 improved with bipap Bipap ordered with settings 09/22, back up 14 after being discussed with Dr. Suggs patient only wore bipap last night about 4 hours pulmonology consulted restarted Trelegy and PRN albuterol 01/05: Seen by pulsally
[2024-01-08] MEDS: FLUTICASONE/UMECLIDIN/VILANTER 100-62.5-25 MCG ELLIPTA 1 PUFF INHALATION (07:41)
[2024-01-08] MEDS: MAGNESIUM OXIDE 400 MG TABLET PO (08:37)
[2024-01-08] MEDS: FUROSEMIDE 10 MG TABLET PO ×2 (08:37→18:24)
[2024-01-08] MEDS: ALPRAZolam (*CRX) 0.5 MG TABLET 1 MG PO ×2 (08:37→15:59)
[2024-01-08] MEDS: SODIUM CHLORIDE 1 GM TABLET PO ×2 (08:37→18:24)
[2024-01-08] MEDS: THIAMINE HCL 200 MG/2 ML VIAL 100 MG IV PUSH (08:40)
--- NOTE | 2024-01-08 10:32 | PM.PNNEP ---
Progress Note: A&P Assessment and Plan (1) Hyponatremia: Code(s): E87.1 - Hypo-osmolality and hyponatremia Status: Chronic Assessment and Plan: recurrent/chronic issue best sodiums to date run 132 - 135mmol/L; however, has been as low as 117mmol/L in the past admitted with a sodium of 118 s/p normal saline IVFs from ER risk factors for hyponatremia: prerenal factors (diminished oral intake) alcohol use (beer potomania?) SSRI use nausea/vomiting/diarrhea interventions instituted: 1000 mL fluid restriction salt tabs bid lasix bid evaluation to date: TSH okay corisol WNL urine electrolytes non-prerenal serum/urine osmo and electrophoresis pending 3% saline yesterday due to acute drop in sodium as noted by recent labs follow repeat sodium levels (2) Metabolic encephalopathy: Code(s): G93.41 - Metabolic encephalopathy Status: Acute Assessment and Plan: improvement noted due to low sodium, EtOH withdrawal, or benzo withdrawal or combination of all(?) head CT negative reported has some underlying short term memory issues and cognitive impairment follow mentation (3) End stage COPD: Code(s): J44.9 - Chronic obstructive pulmonary disease, unspecified Status: Chronic Assessment and Plan: non-compliant with previous interventions/therapy follow respiratory status Pulmonary recommendations noted (4) Failure to thrive: Status: Acute Assessment and Plan: long standing issue as noted on previous hospitalizations not sure what else can be done give previous attempts at intervention have failed Will continue to follow. Subjective Date/time seen: 01/08/24 10:32 Interval history: Follow-up for acute on chronic hyponatremia. Due to abrupt decline in sodium level yesterday (went as low as 118mmol/L), she received 3% saline which appears to have stabilized sodium level to around 123mmol/L; not clear what caused the decline in sodium level when it had been steadily improving (there was some concerns that drank more fluid the night/evening before yesterday); mentation seems stable at this time. Exam Narrative: General: ill appearing female in NAD Heart: normal S1 and S2; no rub Lungs: coarse breath sounds Abdomen: soft, nontender, nondistended, positive bowel sounds Extremities: no cyanosis or clubbing; no edema Skin: no rash or nodules Objective Data Vital Signs Vital Signs: Vital Signs Temp Pulse Resp BP Pulse Ox O2 Del Method O2 Flow Rate 01/08/24 08:00 97.9 F 95 13 98/59 L 100 01/08/24 07:44 93 Nasal Cannula 2 01/08/24 05:55 97.2 F L 90 12 90/55 L 100 01/07/24 22:45 99 Nasal Cannula 2 01/07/24 20:00 100 Nasal Cannula 2 01/07/24 22:52 97.4 F L 91 12 101/75 100 01/07/24 16:00 98.2 F 90 18 104/58 L 100 Intake/Output Intake/Output: Intake & Output 01/05/24 01/06/24 01/07/24 01/08/24 23:59 23:59 23:59 23:59 Intake Total 480 180 522 250 Output Total 300 850 100 Balance 180 -670 422 250 Meds/Results Medications: Active Medications Generic Name Dose Route Start Last Admin Trade Name Freq PRN Reason Stop Dose Admin Acetaminophen 650 mg 01/03/24 13:00 01/06/24 08:18 Acetaminophen 325 Mg Tablet PO 650 mg Q4H PRN Administration Mild Pain (1-3) or Fever Albuterol 2 puff 01/04/24 14:49 01/05/24 08:44 Albuterol Sulfate (*Sp) Aerosol 1 Puff INHALATION 2 puff QIDRT PRN Administration shortness of breath or wheezing Alprazolam 1 mg 01/03/24 20:17 01/08/24 08:37 Alprazolam (*Crx) 0.5 Mg Tablet PO 1 mg TID PRN Administration Anxiety Fluticasone/Umeclidinium/Vilanterol 1 puff 01/05/24 09:00 01/08/24 07:41 Fluticasone/Umeclidin/Vilanter 100-62.5-25 Mcg Ellipta INHALATION 1 puff DAILY DAILY Administration Furosemide 10 mg 01/04/24 17:00 01/08/24 08:37 Furosemide 1
--- NOTE | 2024-01-08 10:32 | P.PNNP_ITS ---
Progress Note: A&P Assessment and Plan (1) Hyponatremia: Code(s): E87.1 - Hypo-osmolality and hyponatremia Status: Chronic Assessment and Plan: * recurrent/chronic issue * best sodiums to date run 132 - 135mmol/L; however, has been as low as 117mmol/L in the past * admitted with a sodium of 118 * s/p normal saline IVFs from ER * risk factors for hyponatremia: * prerenal factors (diminished oral intake) * alcohol use (beer potomania?) * SSRI use * nausea/vomiting/diarrhea * interventions instituted: * 1000 mL fluid restriction * salt tabs bid * lasix bid * evaluation to date: * TSH okay * corisol WNL * urine electrolytes non-prerenal * serum/urine osmo and electrophoresis pending * 3% saline yesterday due to acute drop in sodium as noted by recent labs * follow repeat sodium levels (2) Metabolic encephalopathy: Code(s): G93.41 - Metabolic encephalopathy Status: Acute Assessment and Plan: * improvement noted * due to low sodium, EtOH withdrawal, or benzo withdrawal or combination of all(?) * head CT negative * reported has some underlying short term memory issues and cognitive impairment * follow mentation (3) End stage COPD: Code(s): J44.9 - Chronic obstructive pulmonary disease, unspecified Status: Chronic Assessment and Plan: * non-compliant with previous interventions/therapy * follow respiratory status * Pulmonary recommendations noted (4) Failure to thrive: Status: Acute Assessment and Plan: * long standing issue as noted on previous hospitalizations * not sure what else can be done give previous attempts at intervention have failed Will continue to follow. Subjective Date/time seen: 01/08/24 10:32 Interval history: Follow-up for acute on chronic hyponatremia. Due to abrupt decline in sodium level yesterday (went as low as 118mmol/L), she received 3% saline which appears to have stabilized sodium level to around 123mmol/L; not clear what caused the decline in sodium level when it had been steadily improving (there was some concerns that drank more fluid the night/evening before yesterday); mentation seems stable at this time. Exam Narrative: General: ill appearing female in NAD Heart: normal S1 and S2; no rub Lungs: coarse breath sounds Abdomen: soft, nontender, nondistended, positive bowel sounds Extremities: no cyanosis or clubbing; no edema Skin: no rash or nodules Objective Data Vital Signs Vital Signs: Vital Signs Temp Pulse Resp BP Pulse Ox O2 Del Method O2 Flow Rate 01/08/24 08:00 97.9 F 95 13 98/59 L 100 01/08/24 07:44 93 Nasal Cannula 2 01/08/24 05:55 97.2 F L 90 12 90/55 L 100 01/07/24 22:45 99 Nasal Cannula 2 01/07/24 20:00 100 Nasal Cannula 2 01/07/24 22:52 97.4 F L 91 12 101/75 100 01/07/24 16:00 98.2 F 90 18 104/58 L 100 Intake/Output Intake/Output: Intake & Output 01/05/24 01/06/24 01/07/24 01/08/24 23:59 23:59 23:59 23:59 Intake Total 480 180 522 250 Output Total 300 850 100 Balance 180 -670 422 250 Meds/Results Medications: Active Medications Generic Name Dos
[2024-01-08 10:57] LABS: Osmolality, Urine 491 mOsm/kg (50-1200)
[2024-01-08 11:17] LABS: Glucose Point of Care 88 mg/dl (65-105)
--- NOTE | 2024-01-08 11:47 | PCOTNOTE ---
Attempted to see Patient at this time. Patient refused to participate in any activities. Patient performed some PT this A.M. and verbalized, get out, I'm sleeping .
[2024-01-08 12:34] LABS: Sodium 120 mmol/L (137-145)
[2024-01-08] MEDS: SODIUM CHLORIDE 0.9% IV 1,000 ML 75 ML IV CONT (12:39)
[2024-01-08] MEDS: ONDANSETRON INJ 4 MG/2 ML VIAL IV PUSH (16:03)
[2024-01-09] VITALS (7 sets, daily range): BP systolic 105–107; BP diastolic 68–80; PULSE 86–110; RESP 12–22; TEMP 36.7–36.9; O2SAT 93–100
--- NOTE | 2024-01-09 07:38 | PM.IMPN ---
Progress Note: A&P Assessment and Plan (1) Hyponatremia: Code(s): E87.1 - Hypo-osmolality and hyponatremia Status: Chronic Assessment and Plan: - baseline hyponatremic, Oct 2023 range 132-135 - seizure precautions - call provider if sodium increases by more than 2 mmol/L in 4 hours or greater than 8 mmol/L in a 24 hour period - review of chart, hyponatremia previously related to alcohol use. Patient also on benzos daily. - nephrology consulted, Sotero SEGOVIA. increased sodium tab 1 g BID PO lasix 10 mg BID fluid restriction - repeat sodium Q4H until corrected 01/05: Sodium is 129 today. 01/06: Sodium was 123 this morning and then decreased to 118 at noon. Nephrology ordered hypertonic saline. 01/07: Na 123 today. Urine studies pending per nephrology work up. 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 - last refill on 12/14/2023, ran out on 3 days ago on 12/31 (11 days early = 33 pillls) - [facility] protocol for withdrawal - seizure precautions - neuro checks Q4, if patient deteriorates then neuro checks Q2 - restart home dose of Xanax 1 mg TID - hx of alcohol abuse - antiemetics p.r.n. 01/07:Patient seems to be back to her baseline. She has periods of short term memory loss which is normal per her son Liam. She otherwise has been alert and able to tell me her name, where she is, and occasionally knows the month. She is frequently unsure of the year. (3) Metabolic encephalopathy: Code(s): G93.41 - Metabolic encephalopathy Status: Acute Assessment and Plan: - likely multifactorial, hyponatremia and benzo withdrawal - neuro checks q.4 - no focal deficits or signs of trauma on exam, no report of trauma by family or patient. - head CT showed no acute intracranial process - does appear to have some underlying cognitive impairment/short-term memory loss - folic acid 9.1 - thiamine IVP daily (4) Protein-calorie malnutrition, severe: Code(s): E43 - Unspecified severe protein-calorie malnutrition Status: Acute Assessment and Plan: - monitor phosphorus levels daily - consult to drug regulatory affairs specialist, at risk for refeeding syndrome - TID supplementation, needs to increase calories +500 cals 01/07: Discussed the possibility of a feeding tube with her but she declined. (5) Adult failure to thrive: Code(s): R62.7 - Adult failure to thrive Status: Acute Assessment and Plan: - current weight: 29.4 kg, BMI 12.2 - per son who is POA - Lino Herrera, they have previously attempted to have patient placed but were unable to because either patient's mental status improved or they did not qualify - care coordination consulted - pt/ot ordered for d/c planning 01/07: Patient made DNR after speaking with son Liam. He is speaking with his brother and father about hospice and placement for Esther. 01/08: After few days of caring person the I have a more clear understanding of her baseline orientation. I have also spoke with her son liam, ex Neo, and friend Ophelia who of all confirmed that her short-term memory loss is severe. You can speak with her and within the hour she will have for gotten the conversation that you had. This was witnessed by myself a few days ago when I saw her 3 times throughout the day and we had the same conversation regarding her inpatient hospitalization. Today I reviewed with her that her family is helping to get hospice palliative services in the home. I discussed with her again that she did want to be comfortable and no longer wants invasive measures. She is in agreement at this time. Formal hospice referral placed. (6) Chronic respiratory failure with hypoxia and hypercapnia: Code(s): J96.11 - Chronic respiratory failure with hypoxia; J96.12 - Chroni
[2024-01-09] MEDS: FUROSEMIDE 10 MG TABLET PO ×2 (08:26→22:57)
[2024-01-09] MEDS: MAGNESIUM OXIDE 400 MG TABLET PO (08:27)
[2024-01-09] MEDS: SODIUM CHLORIDE 1 GM TABLET PO ×2 (08:27→22:56)
[2024-01-09] MEDS: THIAMINE HCL 200 MG/2 ML VIAL 100 MG IV PUSH (08:27)
[2024-01-09] MEDS: FLUTICASONE/UMECLIDIN/VILANTER 100-62.5-25 MCG ELLIPTA 1 PUFF INHALATION (09:46)
[2024-01-09 10:44] LABS: Vitamin B1 <6 nmol/L (8-30)
[2024-01-09] MEDS: ALPRAZolam (*CRX) 0.5 MG TABLET 1 MG PO ×2 (15:08→23:00)
[2024-01-09] MEDS: ONDANSETRON INJ 4 MG/2 ML VIAL IV PUSH (15:08)
[2024-01-10 06:00] VITALS: BP 103/70; PULSE 94; RESP 20; TEMP 36.7; O2SAT 97
--- NOTE | 2024-01-10 07:16 | P.PNIM_ITS ---
Progress Note: A&P Assessment and Plan (1) Hyponatremia: Code(s): E87.1 - Hypo-osmolality and hyponatremia Status: Chronic Assessment and Plan: - baseline hyponatremic, Oct 2023 range 132-135 - seizure precautions - call provider if sodium increases by more than 2 mmol/L in 4 hours or greater than 8 mmol/L in a 24 hour period - review of chart, hyponatremia previously related to alcohol use. Patient also on benzos daily. - nephrology consulted, Sotero SEGOVIA. * increased sodium tab 1 g BID * PO lasix 10 mg BID * fluid restriction - repeat sodium Q4H until corrected 01/05: Sodium is 129 today. 01/06: Sodium was 123 this morning and then decreased to 118 at noon. Nephrology ordered hypertonic saline. 01/07: Na 123 today. Urine studies pending per nephrology work up. 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 - last refill on 12/14/2023, ran out on 3 days ago on 12/31 (11 days early = 33 pillls) - [facility] protocol for withdrawal - seizure precautions - neuro checks Q4, if patient deteriorates then neuro checks Q2 - restart home dose of Xanax 1 mg TID - hx of alcohol abuse - antiemetics p.r.n. 01/07:Patient seems to be back to her baseline. She has periods of short term memory loss which is normal per her son Liam. She otherwise has been alert and able to tell me her name, where she is, and occasionally knows the month. She is frequently unsure of the year. (3) Metabolic encephalopathy: Code(s): G93.41 - Metabolic encephalopathy Status: Acute Assessment and Plan: - likely multifactorial, hyponatremia and benzo withdrawal - neuro checks q.4 - no focal deficits or signs of trauma on exam, no report of trauma by family or patient. - head CT showed no acute intracranial process - does appear to have some underlying cognitive impairment/short-term memory loss - folic acid 9.1 - thiamine IVP daily (4) Protein-calorie malnutrition, severe: Code(s): E43 - Unspecified severe protein-calorie malnutrition Status: Acute Assessment and Plan: - monitor phosphorus levels daily - consult to regional account manager, at risk for refeeding syndrome - TID supplementation, needs to increase calories +500 cals 01/07: Discussed the possibility of a feeding tube with her but she declined. (5) Adult failure to thrive: Code(s): R62.7 - Adult failure to thrive Status: Acute Assessment and Plan: - current weight: 29.4 kg, BMI 12.2 - per son who is POA - Lino Herrera, they have previously attempted to have patient placed but were unable to because either patient's mental status improved or they did not qualify - care coordination consulted - pt/ot ordered for d/c planning 01/07: Patient made DNR after speaking with son Liam. He is speaking with his brother and father about hospice and placement for Esther. 01/08: After few days of caring person the I have a more clear understanding of her baseline orientation. I have also spoke with her son liam, ex Neo, and friend Ophelia who of all confirmed that her short-term memory loss is severe. You can speak with her and within the hour she will have for gotten the conversation that you had. This was witnessed by myself a few days ago when I saw her 3 times throughout the day and we had the same conversation regarding her inpatient hospitalization. Today I reviewed with
[2024-01-10 08:00] VITALS: O2SAT 92
[2024-01-10 08:06] VITALS: BP 90/63; PULSE 95; RESP 18; TEMP 36.6; O2SAT 92
[2024-01-10] MEDS: THIAMINE HCL 200 MG/2 ML VIAL 100 MG IV PUSH (08:12)
[2024-01-10] MEDS: ALPRAZolam (*CRX) 0.5 MG TABLET 1 MG PO ×2 (08:12→15:36)
[2024-01-10] MEDS: MAGNESIUM OXIDE 400 MG TABLET PO (08:13)
[2024-01-10] MEDS: FUROSEMIDE 10 MG TABLET PO (08:13)
[2024-01-10] MEDS: SODIUM CHLORIDE 1 GM TABLET PO (08:13)
[2024-01-10] MEDS: FLUTICASONE/UMECLIDIN/VILANTER 100-62.5-25 MCG ELLIPTA 1 PUFF INHALATION (08:37)
[2024-01-10 08:38] VITALS: O2SAT 93
[2024-01-10 14:00] VITALS: BP 109/68; PULSE 65; RESP 16; TEMP 36.6; O2SAT 93
--- NOTE | 2024-01-10 14:53 | PM.DS ---
DS: Admitting Diagnosis Discharge Date 01/09 Admitting Diagnosis weakness DS: Discharge Diagnosis Discharge Diagnosis (1) Hyponatremia: Code(s): E87.1 - Hypo-osmolality and hyponatremia Status: Chronic Assessment and Plan: - baseline hyponatremic, Oct 2023 range 132-135 - seizure precautions - call provider if sodium increases by more than 2 mmol/L in 4 hours or greater than 8 mmol/L in a 24 hour period - review of chart, hyponatremia previously related to alcohol use. Patient also on benzos daily. - nephrology consulted, Sotero SEGOVIA. increased sodium tab 1 g BID PO lasix 10 mg BID fluid restriction - repeat sodium Q4H until corrected 01/05: Sodium is 129 today. 01/06: Sodium was 123 this morning and then decreased to 118 at noon. Nephrology ordered hypertonic saline. 01/07: Na 123 today. Urine studies pending per nephrology work up. 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 - last refill on 12/14/2023, ran out on 3 days ago on 12/31 (11 days early = 33 pillls) - [facility] protocol for withdrawal - seizure precautions - neuro checks Q4, if patient deteriorates then neuro checks Q2 - restart home dose of Xanax 1 mg TID - hx of alcohol abuse - antiemetics p.r.n. 01/07:Patient seems to be back to her baseline. She has periods of short term memory loss which is normal per her son Liam. She otherwise has been alert and able to tell me her name, where she is, and occasionally knows the month. She is frequently unsure of the year. (3) Metabolic encephalopathy: Code(s): G93.41 - Metabolic encephalopathy Status: Acute Assessment and Plan: - likely multifactorial, hyponatremia and benzo withdrawal - neuro checks q.4 - no focal deficits or signs of trauma on exam, no report of trauma by family or patient. - head CT showed no acute intracranial process - does appear to have some underlying cognitive impairment/short-term memory loss - folic acid 9.1 - thiamine IVP daily (4) Protein-calorie malnutrition, severe: Code(s): E43 - Unspecified severe protein-calorie malnutrition Status: Acute Assessment and Plan: - monitor phosphorus levels daily - consult to alarm field technician, at risk for refeeding syndrome - TID supplementation, needs to increase calories +500 cals 01/07: Discussed the possibility of a feeding tube with her but she declined. (5) Adult failure to thrive: Code(s): R62.7 - Adult failure to thrive Status: Acute Assessment and Plan: - current weight: 29.4 kg, BMI 12.2 - per son who is POA - Lino Herrera, they have previously attempted to have patient placed but were unable to because either patient's mental status improved or they did not qualify - care coordination consulted - pt/ot ordered for d/c planning 01/07: Patient made DNR after speaking with son Liam. He is speaking with his brother and father about hospice and placement for Esther. 01/08: After few days of caring person the I have a more clear understanding of her baseline orientation. I have also spoke with her son liam, ex Neo, and friend Ophelia who of all confirmed that her short-term memory loss is severe. You can speak with her and within the hour she will have for gotten the conversation that you had. This was witnessed by myself a few days ago when I saw her 3 times throughout the day and we had the same conversation regarding her inpatient hospitalization. Today I reviewed with her that her family is helping to get hospice palliative services in the home. I discussed with her again that she did want to be comfortable and no longer wants invasive measures. She is in agreement at this time. Formal hospice referral placed. (6) Chronic respiratory failure with hypoxia and hypercapnia
[2024-01-10 14:58] LABS: Kappa\\Lambda Light Chains 1.01 (0.26-1.65); Lambda Light Chain 13.9 mg/L (5.7-26.3)
[2024-01-11 13:47] LABS: Albumin 3.2 g/dL (3.8-4.8); Alpha 1 Globulin 0.4 g/dL (0.2-0.3); Alpha 2 Globulin 0.5 g/dL (0.5-0.9); Beta 1 Globulin 0.4 g/dL (0.4-0.6); Gamma Globulin 0.6 g/dL (0.8-1.7); Protein, Total 5.5 g/dL (6.1-8.1)
[2024-01-15 06:40] LABS: Creatinine, Random Urine 64 mg/dL (20-275); Total Protein/Creatinine Ratio 234 mg/g creat (24-184)
== END 2024-01-10 15:42 | disposition hospice, home (50) | DRG 640 ==
LOC: ANHED 18:01 → ANHIMU 18:58 → ANH3MEDSUR 01-06 22:47
PROVIDERS: Internal Medicine Nephrology; Nurse Practitioner; Nurse Practitioner Family; Student in an Organized Health Care Education/Training Program; Admitting Provider Internal Medicine; Emergency Provider Emergency Medicine; PCP Family Medicine; Visit Provider Nurse Practitioner Acute Care
DX: E87.1 Hypo-osmolality and hyponatremia (principal); E43 Unspecified severe protein-calorie malnutrition; G93.41 Metabolic encephalopathy; J96.21 Acute and chronic respiratory failure with hypoxia; J96.22 Acute and chronic respiratory failure with hypercapnia; F13.939 Sedative, hypnotic or anxiolytic use, unspecified with withdrawal, unspecified; Z68.1 Body mass index [BMI] 19.9 or less, adult; I42.9 Cardiomyopathy, unspecified; R62.7 Adult failure to thrive; Z66 Do not resuscitate; F10.10 Alcohol abuse, uncomplicated; D64.9 Anemia, unspecified; E88.A Wasting disease (syndrome) due to underlying condition; E55.9 Vitamin D deficiency, unspecified; E53.8 Deficiency of other specified B group vitamins; F41.1 Generalized anxiety disorder; J45.909 Unspecified asthma, uncomplicated; J43.9 Emphysema, unspecified; K21.9 Gastro-esophageal reflux disease without esophagitis; Z86.16 Personal history of COVID-19; Z87.891 Personal history of nicotine dependence; Z91.199 Patient's noncompliance with other medical treatment and regimen due to unspecified reason
CPT/HCPCS: 36415; 36600; 70450; 71045; 80048; 80053; 80307; 81050; 82140; 82375; 82533; 82570; 82607; 82746; 82805; 82948; 83050; 83690; 83735; 83883; 83930; 83935; 84100; 84145; 84155; 84156; 84165; 84166; 84295; 84300; 84425; 84443; 85025; 94002; 94640; 96361; 96374; 96375; 97110; 97161; 97165; 97530; 97535; 99285; A9270; G0378; J1940; J2405; J3411; J7030; J7040; J7131

== ENCOUNTER 2024-02-06 00:43 | Inpatient (IN) | payer MEDICARE, MEDICAID, SELFPAY ==
[2024-02-06] VITALS (74 sets, daily range): BP systolic 71–146; BP diastolic 55–93; PULSE 86–124; RESP 14–22; TEMP 35.9–38; O2SAT 90–100; BMI 13.4
--- NOTE | ~2024-02-06 | XR_ITS ---
EXAMINATION: XR chest 1V portable DATE: 02/09/2024 05:45 INDICATION: Acute respiratory failure on mechanical ventilation. TECHNIQUE: A single frontal view of the chest was obtained. COMPARISON: Chest single view 02/08/2024 FINDINGS: There is severe emphysema. There are staple lines in the upper lobes. There are mild airspa ce opacities in all lung zones bilaterally. No pleural effusion or pneumothorax. The heart size is no rmal. The endotracheal tube tip is 4.2 cm above the mario. The nasogastric tube tip is in the stomac h. A right internal jugular central venous catheter is seen with tip in the superior vena cava. There is an old healed left rib fracture. IMPRESSION: 1. Worsened diffuse lung disease, consistent with atelectasis/scarring versus pneumonia superimposed on severe emphysema. Reviewed, dictated and finalized at location E. IMPRESSION: 1. Worsened diffuse lung disease, consistent with atelectasis/scarring versus p neumonia superimposed on severe emphysema.
--- NOTE | ~2024-02-06 | XR_ITS ---
XR abdomen gastric tube insert INDICATION: Evaluate NG tube position. TECHNIQUE: Limited KUB perform for evaluating NG tube . COMPARISON: 08/19/2023 FINDINGS: NG tube tip in the stomach. Visualized bowel gas pattern is nonspecific.Emphysematous cotton ges noted in the lung bases. IMPRESSION: 1: NG tube tip in the stomach. Reviewed, dictated and finalized at location A.
--- NOTE | ~2024-02-06 | XR_ITS ---
EXAMINATION: XR chest 1V portable DATE: 02/08/2024 06:56 INDICATION: Acute respiratory failure. TECHNIQUE: A single frontal view of the chest was obtained. COMPARISON: Chest single view 02/07/24, chest CT 08/19/2023 FINDINGS: There is severe emphysema. There are staple lines in the upper lungs. There are airspace op acities in the midlung zones bilaterally. No pleural effusion or pneumothorax. The heart size is norm al. The endotracheal tube tip is 3.7 cm above the mario. A right internal jugular central venous cat heter is seen with tip in the superior vena cava. The nasogastric tube tip is in the stomach. There i s an old healed left rib fracture. IMPRESSION: 1. Severe emphysema. 2. Stable airspace opacities in the midlung zones, consistent with atelectasis/scarring versus pneumo lisa. Reviewed, dictated and finalized at location E. IMPRESSION: 1. Severe emphysema. 2. Stable airspace opacities in the midlung zones, consistent with atelectasis/ scarring versus pneumonia.
--- NOTE | ~2024-02-06 | MR_ITS ---
EXAMINATION: MR brain/brain stem wo/w con DATE: 02/12/2024 13:08 INDICATION: Seizure. TECHNIQUE: Magnetic resonance imaging (MRI) of the brain and brainstem was performed without and with 5 mL MultiHance intravenous contrast. 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 There are scattered areas of nonspecific incre ased T2-weighted signal intensity in the cerebral white matter. There is no intracranial hemorrhage, acute infarction, or abnormal intracranial mass lesion. The ventricles are normal in size. The parana erwin sinuses are clear. The orbits are normal. There is a right mastoid effusion. IMPRESSION: 1. 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 2. Worsened mild nonspecific cerebral white matter disease, which likely represents chronic small ves jayson ischemic disease. Reviewed, dictated and finalized at location A. IMPRESSION: 1. 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 2. Worsened mild nonspecific cerebral white matter disease, which likely repres ents chronic small vessel ischemic disease.
--- NOTE | ~2024-02-06 | XR_ITS ---
Portable chest x-ray Comparison: 02/09/2024 Clinical History: Respiratory failure Findings: Right IJ line in satisfactory position. There is probable severe COPD/emphysema. Probable chronic blunting of the left costophrenic angle versus small effusion. Probable linear left basilar s carring. Cardiomediastinal silhouette is stable. Bones and soft tissues are unremarkable. Impression: Severe COPD with probable chronic blunting left costophrenic angle versus small left pleural effusion . Left basilar linear scarring. Right IJ line in place. Reviewed, dictated and finalized at location . Impression: Severe COPD with probable chronic blunting left costophrenic angle versus small left pleural effusion. Left basilar linear scarring. Right IJ line in place.
--- NOTE | ~2024-02-06 | XR_ITS ---
XR chest 1V portable 02/07/2024 05:26 Indication: Acute respiratory failure Procedure: AP portable chest Comparison: Comparison to multiple prior studies sequentially, with oldest reviewed study dated 02/05 Findings: subtle infiltrates right mid thorax. Heart size normal. Central line tip in the SVC. Endotr acheal tube tip measures 4.5 cm. NG tube tip in the tip. Small pleural effusions. No pneumothorax.. T here is scarring left mid thorax. The lungs are hyperinflated which is consistent with, but not diagn ostic of chronic obstructive pulmonary disease. Impression: 1: Right perihilar infiltrates may represent atelectasis or developing pneumonia. Reviewed, dictated and finalized at location A. Impression: 1: Right perihilar infiltrates may represent atelectasis or developing pneumoni a.
--- NOTE | ~2024-02-06 | CT_ITS ---
EXAMINATION: CT BRAIN W/O DATE: 02/06/2024 02:13 INDICATION: Altered mental status TECHNIQUE: Computed tomography (CT) of the head was performed without intravenous contrast. The dose- length product was 605.33 mGy-cm. Automated exposure control and iterative reconstruction technique w ere employed. COMPARISON: No prior studies for comparison. FINDINGS: Study limited by motion artifact. Normal brain parenchymal volume for age. Normal rivero-whit e differentiation. No acute intracranial hemorrhage, infarction, mass or mass effect. No ventriculomegaly or midline shift. Midline sagittal images demonstrate a normal corpus callosum, c raniovertebral junction and sella turcica. Basilar cisterns are patent. Paranasal sinuses and mastoids are pneumatized. No depressed skull fractures. IMPRESSION: 1. No acute intracranial abnormality. Reviewed, dictated and finalized at location A.
--- NOTE | ~2024-02-06 | XR_ITS ---
XR chest 1V 02/06/2024 02:18 Indication: Altered mental status. Shortness of breath. Procedure: AP view of the chest Comparison: Comparison to multiple prior studies sequentially, with oldest reviewed study dated 04/2023. Findings: Severe bullous emphysema. Postsurgical changes in the upper lobes consistent with partial l aminectomies. No acute focal pneumonia, edema or effusion. No pneumothorax. Impression: 1: Severe bullous emphysema. Reviewed, dictated and finalized at location A. Impression: 1: Severe bullous emphysema.
--- NOTE | ~2024-02-06 | XR_ITS ---
XR chest port-a-cath/central 02/06/2024 03:44 Indication: Central line placement Procedure: AP portable chest Comparison: Comparison to multiple prior studies sequentially, with oldest reviewed study dated 03/2024. Findings: Endotracheal tube tip 3.9 cm above the mario. Right IJ central line tip in the SVC. There is emphysema. NG tube tip in the stomach. No pneumothorax. There are surgical changes consistent with partial pneumonectomy in the lung apices. No acute focal pneumonia, edema, pleural effusion or pneum othorax. Impression: 1: No acute cardiopulmonary disease. Reviewed, dictated and finalized at location A. Impression: 1: No acute cardiopulmonary disease.
--- NOTE | ~2024-02-06 | XR_ITS ---
XR chest ET placement 02/06/2024 02:59 Indication: Endotracheal tube placement Procedure: AP view of the chest Comparison: Comparison to multiple prior studies sequentially, with oldest reviewed study dated 01/02. Findings: Severe emphysema. Changes of partial pneumonectomy in the upper lobes. Endotracheal tube ti p 2.8 cm above the mario. NG tube in the stomach. No acute focal pneumonia, edema, pleural effusion or pneumothorax. Mild prominence of the central pulmonary arteries. Impression: 1: No acute cardiopulmonary disease. Reviewed, dictated and finalized at location A. Impression: 1: No acute cardiopulmonary disease.
--- NOTE | 2024-02-06 00:52 | ECG_ITS ---
SEE SCANNED COPY FOR CONFIRMED REPORT MTDD
--- NOTE | 2024-02-06 01:12 | PC.NURSE ---
0110- this RN at bedside when pt started to have seizure like activity. Pt began to have eye twitching, clinching of her jaw and full body stiffness. This RN called for help and to notify MD. This RN and Licha RN began to bag pt as pt o2 level was 51%. Seizure like activity lasted approx 40 seconds. EDP MIRANDA Burns and Dr. Butler at bedside. Pt sats arose to 90s and seizure like activity stopped. Pt now postictal. EDP Dr. Butler VORB 1mg IVP ativan and to place temp soto catheter. Pt sats stable at this time.
[2024-02-06] MEDS: LORazepam INJ (*CRX) 2 MG/ML VIAL 1 MG IV PUSH (01:18)
--- NOTE | 2024-02-06 01:36 | ED.AMS ---
HPI - Altered Mental Status General Chief Complaint: Altered Mental Status Stated Complaint: ams Limitations: altered mental status History of Present Illness HPI narrative: HPI limited to patient's altered mental status. This is a 58-year-old female, brought in by EMS from home for altered mental status. EMS reports they were called by family who stated the patient appeared unresponsive. Last known well unknown. Reportedly the patient was seen in an outside hospital recently for Xanax withdrawal. EMS reports the patient is well signs within normal limits in route. The patient was reportedly only responsive to painful stimulus. Related Data Home Medications Medication Instructions Recorded Confirmed fluticasone fur. 100 mcg-umeclid 1 inh inhalation DAILY 08/19/23 02/06/24 62.5 mcg-vilant 25 mcg inhalat.powder (Trelegy Ellipta) fluoxetine 40 mg capsule 40 mg PO DAILY 10/23/23 02/06/24 levalbuterol HCl 1.25 mg/3 mL 1.25 mg inhalation Q6H PRN Severe 10/23/23 02/06/24 solution for nebulization Emphysema vortioxetine 10 mg tablet 10 mg PO DAILY 10/23/23 02/06/24 (Trintellix) Allergies Allergy/AdvReac Type Severity Reaction Status Date / Time clindamycin Allergy Unknown anaphylactic Verified 02/06/24 00:56 reaction, rash Review of Systems Review of Systems: ROS unobtainable: Yes unobtainable due to mental status PMFSH Past Medical History Medical History Abnormal EKG EKG has previously shown ST elevation which appears to be early repolarization. Alcohol abuse Anxiety Asthma B12 deficiency anemia Chronic anemia Chronic hyponatremia Chronic respiratory failure with hypoxia and hypercapnia On Trelegy unit at nighttime. However the patient is noncompliant 3 L nasal cannula during the day. Closed traumatic nondisplaced fracture of proximal end of right humerus Cognitive impairment COPD with emphysema COVID-19 (~11/2022) Fracture of distal phalanx of ring finger Gastroesophageal reflux disease Generalized anxiety disorder with panic attacks Osteoporosis Protein-calorie malnutrition, severe Pulmonary cachexia due to chronic obstructive pulmonary disease Right hand fracture Secondary nonischemic congestive cardiomyopathy With ejection fraction of 40-45%, diastolic dysfunction grade 1, mid inferior wall, mid anterior wall, mid in for septal wall mid anterior lateral wall, basal apical septum and mid inferior wall hypokinesis on echocardiogram 03/2022 Spontaneous pneumothorax (08/2012) Several pneumothoraces status post VATS procedure and apical blebectomy as well as pleurodesis. Tobacco abuse Quit in 2019 per patient report. Vitamin D deficiency Surgical History Surgical History History of bilateral tubal ligation History of section History of hip surgery (07/2019) ORIF of right femur fracture. History of tonsillectomy Status post thoracotomy Left-sided VATS procedure and apical bleb resection with pleurodesis. Family History Family History Father Acute myocardial infarction Mother Chronic obstructive pulmonary disease Social History Social History Social History: The patient had 3 sons but one from drug overdose. Patient is an alcoholic. Denies recent alcoholor tobacco use. No drug use. She lives with her son and ex-. Code status: Not sure - she wants me to contact family POA: Lino Herrera Smoking packs per day: 1 Smoking cigarettes per day: 20.0 Years smoked: 40 Smoking pack-years: 40.00 Smoking status: Former smoker Tobacco type: cigarettes Second hand tobacco smoke exposure: No Smoking end date: 12/02/19 Alcohol intake: current Drinks per week: 5 Alcohol use details: Heavier drinker in the past. Subst
[2024-02-06 01:54] LABS: Glucose Point of Care 160 mg/dl (65-105)
--- NOTE | 2024-02-06 02:01 | PC.NURSE ---
Pt to CT at this time. Pt on oxygen and cardiac transport monitor.
[2024-02-06 02:04] LABS: Basophils Percent Auto 0.3 % (0.2-1.2); Eosinophils Percent Auto 0.3 % (0-4.4); Hematocrit 35.4 % (37.0-47.0); Hemoglobin 11.1 g/dL (12.0-15.0); Immature Granulocyte Absolute 0.02 K/mm3 (0.00-0.031); Immature Granulocyte Percent A 0.3 % (0-0.5); Lymphocytes Absolute Auto 0.39 K/mm3 (0.9-3.2); Lymphocytes Percent Auto 5.1 % (18.3-44.2); Mean Corpuscular HGB Conc 31.4 g/dl (32-36); Mean Corpuscular Hemoglobin 28.3 pg (26-34); Mean Corpuscular Volume 90.3 fl (80-100); Mean Platelet Volume 8.6 fl (7.4-10.4); Monocytes Absolute Auto 0.5 K/mm3 (0.1-0.6); Monocytes Percent Auto 6.7 % (2.6-8.5); Neutrophils Absolute Auto 6.8 K/mm3 (1.3-6.7); Neutrophils Percent Auto 87.3 % (45.5-73.1); Platelet Count Result 323 k/mm3 (150-375); Red Blood Count 3.92 M/mm3 (4.2-5.4); White Blood Count 7.7 K/mm3 (4.5-10.0)
[2024-02-06 02:15] LABS: Partial Thromboplastin Time 26.1 Seconds (22.3-36.8)
[2024-02-06 02:19] LABS: Amphetamine Screen Urine Negative (Negative); Barbiturate Screen Urine Negative (Negative); Benzodiazepines Screen Urine Negative (Negative); Cannabinoid Screen Urine Positive (Negative); Cocaine Screen Urine Negative (Negative); Methadone Screen Urine Negative (Negative); Opiate Screen Urine Negative (Negative); Phencyclidine Screen Urine Negative (Negative)
[2024-02-06 02:24] LABS: Acetaminophen < 10 ug/mL (10-30); Ethanol < 10 mg/dL (<10); Salicylate < 1.0 mg/dL (2-20)
[2024-02-06 02:29] LABS: Lactic Acid Reflex 4.7 mmol/L (0.7-2.0)
[2024-02-06 02:29] LABS: Alanine Aminotransferase 14 U/L (6-35); Albumin Level 4.5 g/dL (3.5-5.1); Alkaline Phosphatase 110 U/L (38-126); Aspartate Amino Transferase 38 U/L (14-36); Bilirubin,Total 0.7 mg/dL (0.2-1.3); Blood Urea Nitrogen 6 mg/dL (7-17); Calcium 9.7 mg/dL (8.4-10.2); Carbon Dioxide > 40 mmol/L (22-30); Chloride 68 mmol/L (98-107); Creatine Kinase 58 U/L (30-135); Estimated Glomerular Filt Rate > 60; Glucose 123 mg/dL (65-110); Potassium 3.4 mmol/L (3.4-5.0); Sodium 120 mmol/L (137-145)
[2024-02-06] MEDS: MIDAZOLAM 100MG/NS 100ML(*CRX) 100 MG/100 ML BAG IV CONT (02:30)
[2024-02-06 02:41] LABS: Phosphorus 3.1 mg/dL (2.5-4.5)
[2024-02-06] MEDS: SODIUM CHLORIDE 0.9% IV 1,000 ML 999 ML IV CONT (02:41)
[2024-02-06 02:46] LABS: Bacteria Urine None Seen /hpf; Non Pathogenic Casts 0-2; RBC Urine 0-2 /hpf (0-2); Squamous Epithelial Cell Urine None Seen /hpf (Few); WBC Urine 0-5 /hpf (0-3)
--- NOTE | 2024-02-06 02:46 | PC.NURSE ---
Called pt's listed Lino PHILLIP, and no answer, left a message with callback number. Got a hold of her son Liam, he states the pt seemed to have been hallucinating and falling in and out of sleep all day. He decided to call 911 when he couldn't get her to wake up. States he is unaware of much of her medical hx. States she recently ran out of her alprazolam. Liam was made aware of pt being intubated and her status as of now.
--- NOTE | 2024-02-06 02:49 | PC.NURSE ---
0215- This RN checked pt VS while pt was in CT/Xray. Sats showed low s80s and dropped into 70s. This RN went to CT and pt was having seizure like activity. Pt placed on 25L NRB. Pt oxygen jimmy to 92%. Pt brought back to room 5 and EDP at bedside. EDP verbal ordered to set up for intubation. 0220- EDP Dr. Butler VORB 10 etomidate and 50 roccuronium to be used for intubation. versed for sedation drip and 1000mL bolus on NS 113/80 HR97 100% RR15 0223- pt intubated w 7.5 et tube, 21 at teeth. equal and bilat chest rise and fall, positive color change, and equal breath sounds. 0226- pt pressures 87/65 HR125, 100%, RR14 IV fluid bolus pressure bagged 0230- versed drip started. OG placed. Xray at bedside.
[2024-02-06] MEDS: RAPID SEQUENCE INTUBATION KIT 1 EACH (02:59)
[2024-02-06 03:02] LABS: Appearance Urine Turbid (Clear); Bilirubin Urine Negative (Negative); Blood Urine Negative (Negative); Color Urine Yellow (Yellow); Glucose Urine UA Negative (Negative); Ketones Urine Negative (Negative); Leukocyte Esterase Ur Negative LEU/UL (Negative); Nitrate Urine Negative (Negative); Protein Urine Negative (Negative); Urobilinogen Urine 0.2 mg/dL (<2.0); pH Urine 7.5 (5.0-9.0)
[2024-02-06 03:05] LABS: Add Urine Microscopic? YES
[2024-02-06 03:21] LABS: Base Excess ABG 16.9 mEq/l (+/-2.0); HCO3 ABG 44.8 mEq/l (22.0-26.0); PO2 ABG 443.6 mmHg (80.0-100.0); pH ABG 7.388 (7.350-7.450)
[2024-02-06 03:22] LABS: Alveolar/Arterial O2 Gradient 120.2 mmHg; Oxygen Content ABG 19.8 %vol (16.0-22.0); Oxygen Saturation ABG 99.8 % (95.0-100.0); Total Hemoglobin 10.2 g/dL (12.0-18.0)
[2024-02-06 03:23] LABS: Carboxyhemoglobin 0.8 % THb (0-2.0); Device VENTILATOR; Fractional Inspired Oxygen 90 %; Methemoglobin ABG 0.3 %THb (0-1.5); Modified Allen's Test Pass; Oxyhemoglobin 98.2 % THb (90.0-100.0); PO2 FiO2 Ratio Arterial Blood 4.93 %; Reduced Hemoglobin 0.7 %THb (0-5.0); Site Drawn LEFT RADIAL
[2024-02-06 03:24] LABS: Arterial Blood Gas PEEP 5 cmH2O; Arterial Blood Gas Tidal Volume 300 ml; Arterial Blood Gas Vent Mode CMV; Arterial Blood Gas Ventilator rate 16 /MIN
--- NOTE | 2024-02-06 03:33 | PC.NURSE ---
DR JOSE ANGEL DE ANDA TO USE CENTRAL LINE
[2024-02-06] MEDS: CEFEPIME 2 GM/NS 50 ML 2 GM/50 ML BAG IVPB ×3 (03:35→21:29)
[2024-02-06] MEDS: SODIUM BICARBONATE 8.4% 50 MEQ/50 ML SYRINGE 150 MEQ IV PUSH (03:41)
[2024-02-06] MEDS: ALBUTEROL SULFATE NEB 2.5 MG/3 ML INH INHALATION (03:48)
--- NOTE | 2024-02-06 03:49 | PM.IMHP ---
H&P: HPI History of Present Illness Date/Time: 02/06/24 03:49 Chief Complaint: seizure Narrative: this is a 58-year-old female with past medical history significant for end-stage COPD, cachexia, alcohol dependence, tobacco dependence, chronic hypoxic hypercarbic respiratory failure on supplemental oxygen at home, generalized anxiety disorder, severe protein calorie malnutrition. patient was brought to the emergency room due to seizure episode had been seen at outside facility and discharged home here found to have a sodium 120 chloride of 60 bicarb of 40 patient required ventilator support. XR chest port-a-cath/central 02/06/2024 03:44 Indication: Central line placement Procedure: AP portable chest Comparison: Comparison to multiple prior studies sequentially, with oldest reviewed study dated? 10/24/2023. Findings: Endotracheal tube tip 3.9 cm above the mario. Right IJ central line tip in the SVC. There is emphysema. NG tube tip in the stomach. No pneumothorax. There are surgical changes consistent with partial pneumonectomy in the lung apices. No acute focal pneumonia, edema, pleural effusion or pneumothorax. Impression: 1: No acute cardiopulmonary disease. Review of Systems Review of Systems: ROS unobtainable: Yes unobtainable due to mental status ( Sedated on ventilator support) [facility] Past Medical History Medical History Abnormal EKG EKG has previously shown ST elevation which appears to be early repolarization. Alcohol abuse Anxiety Asthma B12 deficiency anemia Chronic anemia Chronic hyponatremia Chronic respiratory failure with hypoxia and hypercapnia On Trelegy unit at nighttime. However the patient is noncompliant 3 L nasal cannula during the day. Closed traumatic nondisplaced fracture of proximal end of right humerus Cognitive impairment COPD with emphysema COVID-19 (~11/2022) Fracture of distal phalanx of ring finger Gastroesophageal reflux disease Generalized anxiety disorder with panic attacks Osteoporosis Protein-calorie malnutrition, severe Pulmonary cachexia due to chronic obstructive pulmonary disease Right hand fracture Secondary nonischemic congestive cardiomyopathy With ejection fraction of 40-45%, diastolic dysfunction grade 1, mid inferior wall, mid anterior wall, mid in for septal wall mid anterior lateral wall, basal apical septum and mid inferior wall hypokinesis on echocardiogram 03/2022 Spontaneous pneumothorax (08/2012) Several pneumothoraces status post VATS procedure and apical blebectomy as well as pleurodesis. Tobacco abuse Quit in 2019 per patient report. Vitamin D deficiency Surgical History Surgical History History of bilateral tubal ligation History of section History of hip surgery (07/2019) ORIF of right femur fracture. History of tonsillectomy Status post thoracotomy Left-sided VATS procedure and apical bleb resection with pleurodesis. Family History Family History Father Acute myocardial infarction Mother Chronic obstructive pulmonary disease Social History Social History Social History: The patient had 3 sons but one from drug overdose. Patient is an alcoholic. Denies recent alcoholor tobacco use. No drug use. She lives with her son and ex-. Code status: Not sure - she wants me to contact family POA: Lino Herrera Smoking packs per day: 1 Smoking cigarettes per day: 20.0 Years smoked: 40 Smoking pack-years: 40.00 Smoking status: Former smoker Tobacco type: cigarettes Second hand tobacco smoke exposure: No Smoking end date: 12/02/19 Alcohol intake: current Drinks per week: 5 Alcohol use details: Heavier drinker in the past. Substance use: never Substance use type: marijuana Do Yo
[2024-02-06] MEDS: VANCOMYCIN 750 MG/NS 250 ML BAG 250 MG IVPB (04:06)
[2024-02-06 04:13] LABS: Alveolar/Arterial O2 Gradient 66.6 mmHg; Base Excess ABG 24.8 mEq/l (+/-2.0); Carboxyhemoglobin 0.9 % THb (0-2.0); Fractional Inspired Oxygen 35 %; HCO3 ABG 53.5 mEq/l (22.0-26.0); Methemoglobin ABG 0.3 %THb (0-1.5); Oxygen Content ABG 15.1 %vol (16.0-22.0); Oxygen Saturation ABG 96.3 % (95.0-100.0); Oxyhemoglobin 95.1 % THb (90.0-100.0); PO2 FiO2 Ratio Arterial Blood 2.49 %; Reduced Hemoglobin 3.7 %THb (0-5.0); Total Hemoglobin 11.2 g/dL (12.0-18.0)
--- NOTE | 2024-02-06 04:37 | PC.NURSE ---
Dr. Narda WOLF levophed to be started if map under 65. Current pressures 68 and above. Levo to be started if map below 65.
[2024-02-06 04:57] LABS: Reflex Lactic Acid Yes or No Add Lactic
--- NOTE | 2024-02-06 04:58 | PC.NURSE ---
Upon transport to ICU pt began having seizure like activity. Pt was biting at ET tube and having shaking motions in her extremities. Pt moved to ICU bed and pt care passed to RAHUL Hilton.
[2024-02-06] MEDS: levETIRAcetam 1000MG/NACL100ML 1,000 MG/100 ML BAG 400 MG IVPB (05:13)
[2024-02-06 05:19] LABS: PCO2 ABG 82.5 mmHg (35.0-45.0)
[2024-02-06 05:20] LABS: Arterial Blood Gas PEEP 5 cmH2O; Arterial Blood Gas Tidal Volume 300 ml; Arterial Blood Gas Vent Mode CMV; Arterial Blood Gas Ventilator rate 16 /MIN; Device VENTILATOR; Modified Allen's Test Pass; Site Drawn RIGHT RADIAL
--- NOTE | 2024-02-06 05:22 | ADMGEN ---
0450: This patient, Esther Brink, was admitted to Intensive Care Unit-2. Patient/family oriented to hospital policies and general routines including ID bracelet, bed and alarms, visiting hours, pain management, procedures, bathroom and other care routines, personal items, smoking policy, room service/diet, and visiting hours. Information on how to activate the Rapid Response Team has been discussed. Patient/Family are encouraged to report perceived risks to care and to ask questions if they do not understand what they are told or what they should do.
--- NOTE | 2024-02-06 05:29 | PC.NURSE ---
No med list was provided upon arrival to ICU. The home medications were reconciled based on the last discharge documentation from this hospital in late December,.
[2024-02-06] MEDS: FENTANYL 2,500MCG/NS250ML(*CRX 2,500 MCG/250 ML BAG IV CONT (05:40)
[2024-02-06] MEDS: CENTRAL LINE FLUSH 10 ML IV PUSH ×3 (05:43→21:54)
[2024-02-06 05:47] LABS: Lactic Acid 1.2 mmol/L (0.7-2.0)
[2024-02-06] MEDS: NOREPINEPHRINE 8 MG/D5W 250 ML 8 MG/250 ML BAG 9.38 MG IV CONT (06:12)
[2024-02-06 07:43] LABS: MRSA (PCR) NOT DETECTED (NOT DETECTE)
--- NOTE | 2024-02-06 08:20 | WPDCNINT ---
Assessment and Plan Assessment and plan (1) Seizure: Code(s): R56.9 - Unspecified convulsions Status: Acute Assessment and Plan: Patient presented with unresponsiveness, had seizures x2. One in the ER, and the other [address] scan area when she was getting a head CT. -patient was loaded with Keppra 1000 mg IV x1 -will start Keppra 500 mg IV q.12 hours -patient was recently admitted to an outside hospital for similar issues which was attributed to benzodiazepine withdrawal. -she is on Versed infusion and fentanyl infusion for sedation -restarted her home Xanax -neurology has been consulted by ER physician (2) Acute on chronic respiratory failure with hypoxia and hypercapnia: Code(s): J96.21 - Acute and chronic respiratory failure with hypoxia; J96.22 - Acute and chronic respiratory failure with hypercapnia Status: Acute Assessment and Plan: Patient was intubated on 02/06/2024 after her 2nd seizure as she was not protecting the airway due to unresponsive. -currently on CMV mode of ventilation, peep of 5, 30% FiO2 -chest x-ray and ABGs reviewed, ventilator adjusted -have started bronchodilators, will continue Trelegy which is a home medication -sedated with fentanyl and Versed infusion, maintain RASS of 0 to -2, daily sedation vacation (3) Hyponatremia: Code(s): E87.1 - Hypo-osmolality and hyponatremia Status: Chronic Assessment and Plan: Hyponatremia with sodium levels of 120 -patient does have a history of chronic hyponatremia -patient was recently admitted to [facility] from January 02 to January 11, 2024 for hyponatremia, benzodiazepine withdrawal -patient also has a history of alcohol abuse -start folic acid and thiamine -BMP q.6 hours -patient has NOT received any hypertonic saline as mention by the ER physician and the hospitalist note -etiology is multifactorial, alcohol use, Trintellix/SSRIs, hypovolemia (4) End stage COPD: Code(s): J44.9 - Chronic obstructive pulmonary disease, unspecified Status: Chronic Assessment and Plan: End-stage COPD/emphysema, will continue bronchodilators -continue home Trelegy (5) Elevated lactic acid level: Code(s): R79.89 - Other specified abnormal findings of blood chemistry Status: Acute Assessment and Plan: Elevated lactic acid likely secondary to seizure activity, repeat lactic acid level has normalized (6) Hypokalemia: Code(s): E87.6 - Hypokalemia Status: Acute Assessment and Plan: Will replace potassium aggressively (7) Protein-calorie malnutrition, severe: Code(s): E43 - Unspecified severe protein-calorie malnutrition Status: Acute Assessment and Plan: History of severe protein calorie malnutrition -will start tube feeds (8) Septic shock: Code(s): A41.9 - Sepsis, unspecified organism; R65.21 - Severe sepsis with septic shock Status: Acute Assessment and Plan: Patient with hypotension, hypothermia, elevated lactic acid, shock -could be related to septic this is hypovolemia -patient received 1 L IV fluid bolus -lactic acid is normal -02/05: Blood cultures have been obtained -02/05: Started on cefepime and vancomycin Plan DVT prophylaxis: Lovenox Stress ulcer prophylaxis: Protonix Nutrition: Will start tube feeds Code Status: Full code Critical Care Time Spent: 51 minute Off note: Patient was on hospice when she was discharged on 01/11/2024. Will d/w family Due to a high probability of clinically significant, life threatening deterioration, the patient required my highest level of preparedness to intervene emergently and I personally spent this critical care time directly and personally managing the patient. This critical care time included obtaining a history; examining the patient; pulse oximetry; ordering and review of studies; arranging urgent treatment with development of a management plan; evaluation of patient's resp
[2024-02-06] MEDS: levETIRAcetam 500MG/NACL 100ML 500 MG/100 ML BAG 400 MG IVPB ×2 (08:28→20:12)
[2024-02-06] MEDS: ALPRAZolam (*CRX) 0.5 MG TABLET PO ×3 (08:31→17:28)
[2024-02-06] MEDS: POTASSIUM CHLORIDE 20 MEQ PACKET (FOR LIQUID) 40 MEQ FEED TUBE ×2 (08:31→09:23)
[2024-02-06] MEDS: IPRATROPIUM BR 0.02% INH SOLN 0.5 MG/2.5 ML VIAL INHALATION ×3 (08:43→20:20)
[2024-02-06] MEDS: LEVALBUTEROL NEB 1.25 MG/3 ML INHALATION ×3 (08:44→20:20)
[2024-02-06] MEDS: FLUTICASONE/UMECLIDIN/VILANTER 100-62.5-25 MCG ELLIPTA 1 PUFF INHALATION (08:45)
[2024-02-06 08:49] LABS: Blood Urea Nitrogen 7 mg/dL (7-17); Calcium 8.5 mg/dL (8.4-10.2); Carbon Dioxide > 40 mmol/L (22-30); Chloride 76 mmol/L (98-107); Estimated Glomerular Filt Rate > 60; Glucose 97 mg/dL (65-110); Potassium 2.6 mmol/L (3.4-5.0); Sodium 126 mmol/L (137-145)
[2024-02-06 09:11] LABS: Influenza A QL RT-PCR Negative (Negative); Influenza B QL RT-PCR Negative (Negative); RSV RNA, RT-PCR Negative (Negative); SARS-CoV-2 RNA PCR Negative (Negative)
[2024-02-06] MEDS: ENOXAPARIN 40 MG/0.4 ML SYRINGE SUB-Q (09:29)
[2024-02-06] MEDS: PANTOPRAZOLE SODIUM IV 40 MG VIAL IV PUSH (09:29)
[2024-02-06 11:43] LABS: Alveolar/Arterial O2 Gradient 85.9 mmHg; Base Excess ABG 16.2 mEq/l (+/-2.0); Fractional Inspired Oxygen 30 %; HCO3 ABG 41.4 mEq/l (22.0-26.0); Oxygen Content ABG 14.1 %vol (16.0-22.0); Oxygen Saturation ABG 94.1 % (95.0-100.0); Oxyhemoglobin 92.6 % THb (90.0-100.0); PCO2 ABG 53.3 mmHg (35.0-45.0); PO2 ABG 65.4 mmHg (80.0-100.0); PO2 FiO2 Ratio Arterial Blood 2.18 %; Total Hemoglobin 10.8 g/dL (12.0-18.0)
[2024-02-06 11:56] LABS: Device VENTILATOR; Site Drawn LEFT RADIAL; pH ABG 7.508 (7.350-7.450)
[2024-02-06 11:58] LABS: Arterial Blood Gas PEEP 5 cmH2O; Arterial Blood Gas Tidal Volume 350 ml; Arterial Blood Gas Vent Mode CMV; Arterial Blood Gas Ventilator rate 20 /MIN
--- NOTE | 2024-02-06 13:16 | PM.CNNEP ---
Assessment and Plan Assessment and plan (1) Hyponatremia: Code(s): E87.1 - Hypo-osmolality and hyponatremia Status: Acute Assessment and Plan: The patient has hyponatremia. The patient has been having low sodiums as far back as 2012. Full workup was done last admission and revealed that her hyponatremia is multifactorial. This includes her severe COPD, SSRIs, continued alcohol use disorder Causing the long-term trouble with low sodium, and acute issues superimposed include excess fluid intake, and dehydration. Her sodium level was 120 when she came in it is now 126. She did receive a L of fluid and her blood pressure is better. The patient also has insensible loss and is not getting very much input because of the drips. So the sodium might be correcting for that reason as well. At this point I would repeat the sodium level which has been planned for early this afternoon. If the sodium continues to correct we may need to take measures to bring the sodium back down. Patient still has some dehydration and so is going to need some more fluid. Possibly half normal saline might be a reasonable option if her sodium level stabilizes. If the sodium drops any more then consider normal saline. In the meantime will check the usual labs. discussed with Dr. Conrad (2) Chronic respiratory failure with hypoxia and hypercapnia: Code(s): J96.11 - Chronic respiratory failure with hypoxia; J96.12 - Chronic respiratory failure with hypercapnia Status: Chronic Assessment and Plan: The patient has severe COPD and chronic respiratory failure. She is on the ventilator now. (3) Alcohol abuse: Code(s): F10.10 - Alcohol abuse, uncomplicated Status: Acute Assessment and Plan: ICU is monitoring for withdrawal (4) Protein-calorie malnutrition, severe: Code(s): E43 - Unspecified severe protein-calorie malnutrition Status: Acute Assessment and Plan: the patient will be getting tube feedings soon (5) Hypotension: Qualifiers: Hypotension type: hypotension due to hypovolemia Qualified Code(s): I95.89 - Other hypotension; E86.1 - Hypovolemia Code(s): I95.9 - Hypotension, unspecified Status: Acute Assessment and Plan: the patient is on pressors History of Present Illness Reason for Consult Consult date: 02/06/24 Chief Complaint Chief complaint: Status Epilepticus,Hyponatremia,Altered Mental Sta History of Present Illness Narrative: Esther is an unfortunate 58-year-old lady who has multiple medical problems including end-stage COPD and emphysema, cachexia, general anxiety disorder, protein calorie malnutrition, GERD, nonischemic congestive cardiomyopathy, alcohol dependence, and chronic hyponatremia. The patient came in the hospital because of seizures and unresponsiveness. She was seen in the ER and intubated because she could not protect her airway. She was moved to the ICU. she was seizing as well. Seized twice, once in the ER and once in the CT scan machine. Her sodium on admission The sodium was 120. Plans were to give hypertonic saline but repeat sodium was 126 so this has not been administered. the patient is intubated and is on some drips which are hypotonic in nature however at low dose. The patient was in the hospital in December for hyponatremia as well. She was seen by Dr. Bey. Cortisol and TSH were okay. He is on prednisone long-term also. Urine electrolytes were non pre renal. SPE showed acute phase proteins. Chest x-ray shows COPD. CT brain shows no space occupying lesion or other acute intracranial abnormality. It was felt that the hyponatremia was due to the COPD, pre renal issues, beer drinkers potomania, SSRI use, and nausea vomiting diarrhea. Sodium level gradually improved with interventions and she was discharged on salt tablets. She was discharged on hospice so no follow-up was i
[2024-02-06 14:29] LABS: Blood Urea Nitrogen 10 mg/dL (7-17); Carbon Dioxide > 40 mmol/L (22-30); Chloride 85 mmol/L (98-107); Estimated Glomerular Filt Rate > 60; Glucose 106 mg/dL (65-110); Potassium 4.5 mmol/L (3.4-5.0); Sodium 129 mmol/L (137-145)
[2024-02-06 14:49] LABS: Total Protein Urine Random 20 mg/dL; Ur Ttl Prot Creatinine Ratio 0.44 mg/mg (0-0.20)
[2024-02-06 14:53] LABS: Sodium Urine Random 68 meq/L
[2024-02-06] MEDS: DEXTROSE 5% IN WATER 250 ML 80 ML IV CONT (15:19)
[2024-02-06] MEDS: VANCOMYCIN 500 MG/NS 100 ML 500 MG/100 ML BAG 100 MG IVPB (17:28)
[2024-02-06 18:43] LABS: Blood Urea Nitrogen 12 mg/dL (7-17); Calcium 8.7 mg/dL (8.4-10.2); Carbon Dioxide > 40 mmol/L (22-30); Chloride 84 mmol/L (98-107); Estimated Glomerular Filt Rate > 60; Glucose 120 mg/dL (65-110); Potassium 4.3 mmol/L (3.4-5.0); Sodium 128 mmol/L (137-145)
[2024-02-06] MEDS: SODIUM CHLORIDE 0.45% 1,000 ML 50 ML IV CONT (19:58)
[2024-02-06 22:37] LABS: Blood Urea Nitrogen 15 mg/dL (7-17); Calcium 8.1 mg/dL (8.4-10.2); Carbon Dioxide > 40 mmol/L (22-30); Chloride 90 mmol/L (98-107); Estimated Glomerular Filt Rate > 60; Glucose 132 mg/dL (65-110); Potassium 4.1 mmol/L (3.4-5.0); Sodium 127 mmol/L (137-145)
[2024-02-07] VITALS (52 sets, daily range): BP systolic 85–118; BP diastolic 60–96; PULSE 88–107; RESP 16–18; TEMP 36.2–37.7; O2SAT 91–100
[2024-02-07 02:39] LABS: Blood Urea Nitrogen 14 mg/dL (7-17); Calcium 8.3 mg/dL (8.4-10.2); Carbon Dioxide > 40 mmol/L (22-30); Chloride 84 mmol/L (98-107); Estimated Glomerular Filt Rate > 60; Glucose 106 mg/dL (65-110); Potassium 4.3 mmol/L (3.4-5.0); Sodium 125 mmol/L (137-145)
[2024-02-07] MEDS: LEVALBUTEROL NEB 1.25 MG/3 ML INHALATION ×4 (02:44→20:30)
[2024-02-07] MEDS: IPRATROPIUM BR 0.02% INH SOLN 0.5 MG/2.5 ML VIAL INHALATION ×4 (02:45→20:29)
[2024-02-07] MEDS: VANCOMYCIN 500 MG/NS 100 ML 500 MG/100 ML BAG 100 MG IVPB (04:23)
[2024-02-07 05:08] LABS: Alveolar/Arterial O2 Gradient 76.4 mmHg; Base Excess ABG 15.1 mEq/l (+/-2.0); Carboxyhemoglobin 0.3 % THb (0-2.0); Fractional Inspired Oxygen 30 %; HCO3 ABG 39.6 mEq/l (22.0-26.0); Methemoglobin ABG 0.2 %THb (0-1.5); Oxygen Content ABG 12.6 %vol (16.0-22.0); Oxygen Saturation ABG 96.7 % (95.0-100.0); Oxyhemoglobin 95.5 % THb (90.0-100.0); PCO2 ABG 49.1 mmHg (35.0-45.0); PO2 ABG 79.8 mmHg (80.0-100.0); PO2 FiO2 Ratio Arterial Blood 2.66 %; Total Hemoglobin 9.3 g/dL (12.0-18.0)
[2024-02-07 05:16] LABS: Device VENTILATOR; Modified Allen's Test Pass; Site Drawn LEFT RADIAL; pH ABG 7.524 (7.350-7.450)
[2024-02-07 05:17] LABS: Arterial Blood Gas PEEP 5 cmH2O; Arterial Blood Gas Tidal Volume 350 ml; Arterial Blood Gas Vent Mode CMV; Arterial Blood Gas Ventilator rate 18 /MIN
[2024-02-07] MEDS: CEFEPIME 2 GM/NS 50 ML 2 GM/50 ML BAG IVPB ×3 (05:24→22:34)
[2024-02-07] MEDS: CENTRAL LINE FLUSH 10 ML IV PUSH ×3 (05:26→20:45)
[2024-02-07 06:37] LABS: Lactic Acid Reflex 0.7 mmol/L (0.7-2.0)
[2024-02-07 06:47] LABS: Alanine Aminotransferase 11 U/L (6-35); Alkaline Phosphatase 87 U/L (38-126); Aspartate Amino Transferase 46 U/L (14-36); Bilirubin,Total 0.5 mg/dL (0.2-1.3); Blood Urea Nitrogen 15 mg/dL (7-17); CRP 3.7 mg/dL (<1.0); Calcium 8.6 mg/dL (8.4-10.2); Carbon Dioxide > 40 mmol/L (22-30); Chloride 86 mmol/L (98-107); Estimated Glomerular Filt Rate > 60; Glucose 124 mg/dL (65-110); Lipase 32 U/L (23-300); Magnesium 1.8 mg/dL (1.6-2.3); Phosphorus 1.5 mg/dL (2.5-4.5); Potassium 4.2 mmol/L (3.4-5.0); Sodium 125 mmol/L (137-145)
[2024-02-07 06:49] LABS: Basophils Percent Auto 0.3 % (0.2-1.2); Eosinophils Absolute Auto 0.1 K/mm3 (0-0.3); Eosinophils Percent Auto 1.2 % (0-4.4); Hemoglobin 7.5 g/dL (12.0-15.0); Immature Granulocyte Absolute 0.02 K/mm3 (0.00-0.031); Immature Granulocyte Percent A 0.3 % (0-0.5); Lymphocytes Absolute Auto 0.78 K/mm3 (0.9-3.2); Lymphocytes Percent Auto 11.6 % (18.3-44.2); Mean Corpuscular HGB Conc 31.3 g/dl (32-36); Mean Corpuscular Hemoglobin 28.8 pg (26-34); Mean Corpuscular Volume 92.3 fl (80-100); Mean Platelet Volume 8.4 fl (7.4-10.4); Monocytes Absolute Auto 0.7 K/mm3 (0.1-0.6); Monocytes Percent Auto 9.6 % (2.6-8.5); Neutrophils Absolute Auto 5.2 K/mm3 (1.3-6.7); Platelet Count Result 181 k/mm3 (150-375); Red Cell Distribution Width 13.4 % (11.5-14.5); White Blood Count 6.8 K/mm3 (4.5-10.0)
[2024-02-07 06:59] LABS: Prothrombin Time 13.2 Seconds (11.1-14.7)
[2024-02-07 07:00] LABS: Partial Thromboplastin Time 36.8 Seconds (22.3-36.8)
--- NOTE | 2024-02-07 07:53 | WPDINTPN ---
Progress Note: A&P Assessment and Plan (1) Seizure: Code(s): R56.9 - Unspecified convulsions Status: Acute Assessment and Plan: Patient presented with unresponsiveness, had seizures x2. One in the ER, and the other [address] scan area when she was getting a head CT. -patient was loaded with Keppra 1000 mg IV x1 -continue Keppra 500 mg IV q.12 hours -patient was recently admitted to an outside hospital for similar issues which was attributed to benzodiazepine withdrawal. -continue her home Xanax -neurology has been consulted by ER physician -normal seizures noted since the patient is in the ICU -open her eyes, follows simple commands in all extremities (2) Acute on chronic respiratory failure with hypoxia and hypercapnia: Code(s): J96.21 - Acute and chronic respiratory failure with hypoxia; J96.22 - Acute and chronic respiratory failure with hypercapnia Status: Acute Assessment and Plan: Patient was intubated on 02/06/2024 after her 2nd seizure as she was not protecting the airway due to unresponsive. -currently on CMV mode of ventilation, peep of 5, 30% FiO2 -chest x-ray this morning showed Right perihilar infiltrates may represent atelectasis or developing pneumonia. -ABGs reviewed, ventilator adjusted -continue bronchodilators, -continue Trelegy Ellipta which is a home medication -sedated with fentanyl and Versed infusion, maintain RASS of 0 to -2, daily sedation vacation (3) Hyponatremia: Code(s): E87.1 - Hypo-osmolality and hyponatremia Status: Chronic Assessment and Plan: Hyponatremia with sodium levels of 120 -patient does have a history of chronic hyponatremia -patient was recently admitted to [facility] from January 02 to January 11, 2024 for hyponatremia, benzodiazepine withdrawal -patient also has a history of alcohol abuse -start folic acid and thiamine -patient has NOT received any hypertonic saline as mention by the ER physician and the hospitalist note -etiology is multifactorial, alcohol use, Trintellix/SSRIs, hypovolemia, 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 -appreciate nephrology managing the sodium levels -sodium levels in the better range this morning, patient opens eyes to name and follows simple commands (4) End stage COPD: Code(s): J44.9 - Chronic obstructive pulmonary disease, unspecified Status: Chronic Assessment and Plan: End-stage COPD/emphysema, -will continue bronchodilators -continue home Trelegy Ellipta (5) Elevated lactic acid level: Code(s): R79.89 - Other specified abnormal findings of blood chemistry Status: Acute Assessment and Plan: Elevated lactic acid likely secondary to seizure activity, repeat lactic acid level has normalized (6) Hypokalemia: Code(s): E87.6 - Hypokalemia Status: Acute Assessment and Plan: Resolved after replacement (7) Protein-calorie malnutrition, severe: Code(s): E43 - Unspecified severe protein-calorie malnutrition Status: Acute Assessment and Plan: History of severe protein calorie malnutrition -tolerating tube feeds (8) Septic shock: Code(s): A41.9 - Sepsis, unspecified organism; R65.21 - Severe sepsis with septic shock Status: Acute Assessment and Plan: Patient with hypotension, hypothermia, elevated lactic acid, shock -could be related to septic this is hypovolemia -patient received 1 L IV fluid bolus -lactic acid is normal -Levophed requirement likely related to sedation and or infection. Maintain SBP > 100 mmHg for adequate end organ perfusion -02/05: Blood cultures have been obtained -02/05: Started on cefepime and vancomycin (9) Anemia: Code(s): D64.9 - Anemia, unspecified Status: Resolved Assessment and Plan: 02/06: Patient dropped hemoglobin to 7.5, repeat hemoglobin was also 7.5. No obvious source of bleeding noted -will hold Lovenox, place SCDs -Protonix IV q.12 hours -check serial
[2024-02-07] MEDS: POTASSIUM/PHOSPHORUS/SODIUM 1.5 GM PACKET 1 PACKET PO (07:58)
[2024-02-07] MEDS: SODIUM CHLORIDE 0.9% IV 1,000 ML 50 ML IV CONT (07:58)
[2024-02-07] MEDS: ALPRAZolam (*CRX) 0.5 MG TABLET PO ×3 (07:58→16:18)
[2024-02-07] MEDS: levETIRAcetam 500MG/NACL 100ML 500 MG/100 ML BAG 400 MG IVPB ×2 (07:59→20:04)
[2024-02-07] MEDS: PANTOPRAZOLE SODIUM IV 40 MG VIAL IV PUSH ×2 (07:59→20:04)
[2024-02-07 12:15] LABS: Hematocrit 23.1 % (37.0-47.0); Hemoglobin 7.2 g/dL (12.0-15.0); Mean Corpuscular HGB Conc 31.2 g/dl (32-36); Mean Corpuscular Hemoglobin 28.8 pg (26-34); Mean Corpuscular Volume 92.4 fl (80-100); Mean Platelet Volume 8.3 fl (7.4-10.4); Platelet Count Result 170 k/mm3 (150-375); Red Cell Distribution Width 13.8 % (11.5-14.5); White Blood Count 6.3 K/mm3 (4.5-10.0)
[2024-02-07 12:24] LABS: Sodium 125 mmol/L (137-145)
--- NOTE | 2024-02-07 13:11 | PM.IMPN ---
Progress Note: A&P Assessment and Plan (1) Seizure: Code(s): R56.9 - Unspecified convulsions Status: Acute (2) Acute on chronic respiratory failure with hypoxia and hypercapnia: Code(s): J96.21 - Acute and chronic respiratory failure with hypoxia; J96.22 - Acute and chronic respiratory failure with hypercapnia Status: Acute (3) Hyponatremia: Code(s): E87.1 - Hypo-osmolality and hyponatremia Status: Chronic (4) End stage COPD: Code(s): J44.9 - Chronic obstructive pulmonary disease, unspecified Status: Chronic (5) Elevated lactic acid level: Code(s): R79.89 - Other specified abnormal findings of blood chemistry Status: Acute (6) Hypokalemia: Code(s): E87.6 - Hypokalemia Status: Acute (7) Protein-calorie malnutrition, severe: Code(s): E43 - Unspecified severe protein-calorie malnutrition Status: Acute (8) Septic shock: Code(s): A41.9 - Sepsis, unspecified organism; R65.21 - Severe sepsis with septic shock Status: Acute (9) Anemia: Code(s): D64.9 - Anemia, unspecified Status: Resolved Plan This is a 58-year-old female with past medical history of end-stage COPD cachexia, alcohol dependence, tobacco dependence, chronic hypoxic hypercarbic respiratory failure on supplemental oxygen at home, generalized anxiety disorder, severe protein and calorie malnutrition presents to the ED due to was seen at the outside facility and discharged home. EMS was called by family has patient appeared unresponsive. Patient was seen at outside hospital recently for Xanax withdrawal. When EMS arrived chief to painful or stimuli vitals were within normal limits. DVT lasting approximately 45 seconds to a minute here. Patient was given Ativan and phenobarbital. Patient was also hypothermic on presentation. Patient continued to have another seizure while in the following which patient was intubated for airway protection with suspicion for status epilepticus. Laboratory evaluation showed sodium of 120 lactic acid of 4.7 CMP otherwise unremarkable. CBC with mild anemia and hemoglobin of. UA negative urine drug screen positive for cannabinoids but otherwise negative. Alcohol level was negative. CT scan of the head was negative for any acute intracranial abnormality. She was admitted to the for further treatment. Patient has been loaded with Keppra. No further seizures has been noted. Neurology has been consulted. Acute ventilatory failure continue on bronchodilators. Vent management per ICU Hyponatremia sodium level of 120 acute on chronic hyponatremia recently admitted in December for hyponatremia. History of alcohol abuse. Continue to monitor sodium level nephrology on board End-stage COPD line hypokalemia replace and monitor Severe protein calorie malnutrition Septic shock with hypotension hypothermia elevated lactic acid received IV fluid resuscitation. Levophed has been started. Blood culture has been obtained and has been on broad-spectrum antibiotics Anemia hemoglobin dropped to 7.5 no signs of bleeding noted. PPI b.i.d. monitor H&H DVT prophylaxis SCDs Stress ulcer prophylaxis: Protonix Nutrition tube feed Code status currently full code plans to discuss further with she was recently discharged on hospice on 01/11/2024. Subjective Date/time seen: 02/07/24 13:11 Interval history: Chart reviewed. Patient intubated and on mechanical ventilation. Review of Systems Review of Systems: ROS unobtainable: Yes unobtainable due to endotracheal tube and unobtainable due to mental status Exam Narrative: General: Cachectic and ill-appearing female. Intubated and sedated in no acute distress HEENT:? Pupils reactive, sclerae is clear, ETT in place Neck:? Supple Respiratory:? Clear to auscultation bilaterally, adequate air entry Cardiac:? S1-S2 normal, tachycardic Abdomen:? Soft, nontender, nondistended, hypoactive bowel sound Extremit
--- NOTE | 2024-02-07 14:16 | PM.PNNEP ---
Progress Note: A&P Assessment and Plan (1) Hyponatremia: Code(s): E87.1 - Hypo-osmolality and hyponatremia Status: Acute Assessment and Plan: The patient has hyponatremia. The patient has been having low sodiums as far back as 2012. Baseline sodium seems to be in the mid upper 120s. Full workup was done last admission and revealed that her hyponatremia is multifactorial. This includes her severe COPD, SSRIs, continued alcohol use disorder Causing the long-term trouble with low sodium, and acute issues superimposed include excess fluid intake, and dehydration. Her sodium level was 120 when she came in and jimmy to 129 temporarily but seems to have settled at around 125. This is her baseline. discussed with Dr. Conrad (2) Chronic respiratory failure with hypoxia and hypercapnia: Code(s): J96.11 - Chronic respiratory failure with hypoxia; J96.12 - Chronic respiratory failure with hypercapnia Status: Chronic Assessment and Plan: The patient has severe COPD and chronic respiratory failure. She is on the ventilator now. (3) Alcohol abuse: Code(s): F10.10 - Alcohol abuse, uncomplicated Status: Acute Assessment and Plan: ICU is monitoring for withdrawal (4) Protein-calorie malnutrition, severe: Code(s): E43 - Unspecified severe protein-calorie malnutrition Status: Acute Assessment and Plan: the patient will be getting tube feedings soon (5) Hypotension: Qualifiers: Hypotension type: hypotension due to hypovolemia Qualified Code(s): I95.89 - Other hypotension; E86.1 - Hypovolemia Code(s): I95.9 - Hypotension, unspecified Status: Acute Assessment and Plan: the patient is on pressors She also was dry on admission. Continue normal saline for hydration. Subjective Date/time seen: 02/07/24 14:16 Interval history: Patient is on the vent. Responds to commands. Review of Systems Cardiovascular: Cardiovascular: Reports no additional cardiovascular complaints Respiratory: Respiratory: Reports no additional respiratory complaints Gastrointestinal: Gastrointestinal: Reports no additional gastrointestinal complaints Genitourinary: Genitourinary: Reports no additional female genitourinary complaints Exam Narrative: WD cachectic female in NAD on vent skin no rash head ncat lungs coarse bilaterally with upper airway noise cor reg no rub abd BS+ nontender and soft ext no edema. Objective Data Vital Signs Vital Signs: Vital Signs - 24 hr 02/06/24 14:33 02/06/24 14:38 02/06/24 14:46 Temperature Pulse Rate 106 H 124 H 117 H Respiratory Rate 18 18 Blood Pressure Pulse Oximetry 95 Oxygen Delivery Mechanical Ventilation Fraction of Inspired Oxygen 30 02/06/24 16:00 02/06/24 16:03 02/06/24 16:00 Temperature Pulse Rate 118 H 118 H 118 H Respiratory Rate 18 18 Blood Pressure 88/66 L Pulse Oximetry Oxygen Delivery Fraction of Inspired Oxygen 02/06/24 16:00 02/06/24 16:00 02/06/24 16:00 Temperature 100.1 F H Pulse Rate 118 H Respiratory Rate 18 Blood Pressure 88/66 L Pulse Oximetry 100 100 Oxygen Delivery Mechanical Ventilation Fraction of Inspired Oxygen 30 02/06/24 16:00 02/06/24 17:17 02/06/24 18:00 Temperature Pulse Rate 119 H 113 H 117 H Respiratory Rate Blood Pressure 95/72 L Pulse Oximetry 94 Oxygen Delivery Mechanical Ventilation Fraction of Inspired Oxygen 30 02/06/24 18:06 02/06/24 18:07 02/06/24 18:00 Temperature Pulse Rate 116 H 118 H 117 H Respiratory Rate 19 19 Blood Pressure Pulse Oximetry Oxygen Delivery Fraction of Inspired Oxygen 02/06/24 18:00 02/06/24 21:10 02/06/24 20:00 Temperature 99 F Pulse Rate 119 H 102 H Respiratory Rate 19 Blood Pressure 95/72 L 86/66 L Pulse Oximetry 100 Oxygen Delivery Fraction of Inspired Oxygen 02/06/24
[2024-02-07] MEDS: SODIUM CHLORIDE 0.9% IV 250 ML 30 ML IV CONT (14:27)
[2024-02-07 15:17] LABS: Sodium 125 mmol/L (137-145)
[2024-02-07 15:34] LABS: Vancomycin Trough 7.2 ug/mL (10.0-20.0)
--- NOTE | 2024-02-07 15:52 | WPDNEURCNPN ---
Assessment and Plan Assessment and plan (1) Chronic respiratory failure with hypoxia and hypercapnia: Code(s): J96.11 - Chronic respiratory failure with hypoxia; J96.12 - Chronic respiratory failure with hypercapnia Status: Chronic Plan with respiratory failure acute superimposed on chronic in addition to hyponatremia, history of seizures and end-stage COPD for which patient is on ventilator support also atrial fibrillation being supported with all the medication at present no neurological intervention. Scan of the head has been done which documents no bleed and medications continued as such. Consult date: 02/07/24 HPI: Esther Brink is a 58 year old female Admitted to the hospital through the emergency room for the complaints of change in the mental status patient was brought to the ER from the home by EMS were called to the home because patient was unresponsive patient has recently been seen in the outside hospital for alprazolam withdrawal and her medications were listed at fluoxetine 40mg daily with Trintellix 10mg daily, patient has ongoing history of anxiety disorder, alcohol abuse, B12 deficiency anemia, chronic hyponatremia, chronic respiratory failure, COPD with emphysema, congestive cardiomyopathy nonischemic, history of smoking 2 packs per day 1, his smoking 6 years smoked 40 but at present former smoker none since December 02, 2019 but currently alcohol intake at least 5 drinks per week and initial exam in the emergency room able to move all 4 extremities on noxious stimuli with lethargy, initial eval with normal vital signs except pulse rate of 102 but afebrile CBC normal basic metabolic panel abnormal with sodium 126 potassium 2.6, if for cannabinoids, Robert acid 4.7, alcohol level less than 10, and negative for influenza a B and SARs COVID also RSV, EKG with no atrial fibrillation, CT head negative for the bleed [facility] Past Medical History Medical History Abnormal EKG EKG has previously shown ST elevation which appears to be early repolarization. Alcohol abuse Anxiety Asthma B12 deficiency anemia Chronic anemia Chronic hyponatremia Chronic respiratory failure with hypoxia and hypercapnia On Trelegy unit at nighttime. However the patient is noncompliant 3 L nasal cannula during the day. Closed traumatic nondisplaced fracture of proximal end of right humerus Cognitive impairment COPD with emphysema COVID-19 (~11/2022) Fracture of distal phalanx of ring finger Gastroesophageal reflux disease Generalized anxiety disorder with panic attacks Osteoporosis Protein-calorie malnutrition, severe Pulmonary cachexia due to chronic obstructive pulmonary disease Right hand fracture Secondary nonischemic congestive cardiomyopathy With ejection fraction of 40-45%, diastolic dysfunction grade 1, mid inferior wall, mid anterior wall, mid in for septal wall mid anterior lateral wall, basal apical septum and mid inferior wall hypokinesis on echocardiogram 03/2022 Spontaneous pneumothorax (08/2012) Several pneumothoraces status post VATS procedure and apical blebectomy as well as pleurodesis. Tobacco abuse Quit in 2019 per patient report. Vitamin D deficiency Surgical History Surgical History History of bilateral tubal ligation History of section History of hip surgery (07/2019) ORIF of right femur fracture. History of tonsillectomy Status post thoracotomy Left-sided VATS procedure and apical bleb resection with pleurodesis. Family History Family History Father Acute myocardial infarction Mother Chronic obstructive pulmonary disease Social History Social History Social History: The patient had 3 sons but one from drug overdose. Patient is an alcoholic. Denies recent alcoholor tobac
[2024-02-07] MEDS: VANCOMYCIN 1,000 MG/NS 250 ML 1,000 MG/250 ML BAG 250 MG IVPB (16:17)
[2024-02-07 20:03] LABS: Hematocrit 28.7 % (37.0-47.0); Hemoglobin 9.3 g/dL (12.0-15.0)
[2024-02-08] VITALS (47 sets, daily range): BP systolic 90–127; BP diastolic 59–92; PULSE 70–125; RESP 16–21; TEMP 35.9–37.7; O2SAT 91–99; BMI 15.0
[2024-02-08] MEDS: IPRATROPIUM BR 0.02% INH SOLN 0.5 MG/2.5 ML VIAL INHALATION ×4 (01:07→21:02)
[2024-02-08] MEDS: LEVALBUTEROL NEB 1.25 MG/3 ML INHALATION ×4 (01:08→21:02)
[2024-02-08] MEDS: NOREPINEPHRINE 8 MG/D5W 250 ML 8 MG/250 ML BAG 3.75 MG IV CONT (03:09)
[2024-02-08] MEDS: VANCOMYCIN 1,000 MG/NS 250 ML 1,000 MG/250 ML BAG 250 MG IVPB (04:00)
[2024-02-08] MEDS: CEFEPIME 2 GM/NS 50 ML 2 GM/50 ML BAG IVPB ×3 (05:16→21:45)
[2024-02-08] MEDS: CENTRAL LINE FLUSH 10 ML IV PUSH ×3 (05:16→21:45)
[2024-02-08 05:33] LABS: Basophils Percent Auto 0.4 % (0.2-1.2); Eosinophils Absolute Auto 0.2 K/mm3 (0-0.3); Eosinophils Percent Auto 2.5 % (0-4.4); Hematocrit 29.5 % (37.0-47.0); Hemoglobin 9.4 g/dL (12.0-15.0); Immature Granulocyte Absolute 0.03 K/mm3 (0.00-0.031); Immature Granulocyte Percent A 0.4 % (0-0.5); Lymphocytes Absolute Auto 0.53 K/mm3 (0.9-3.2); Lymphocytes Percent Auto 7.1 % (18.3-44.2); Mean Corpuscular HGB Conc 31.9 g/dl (32-36); Mean Corpuscular Hemoglobin 28.9 pg (26-34); Mean Corpuscular Volume 90.8 fl (80-100); Mean Platelet Volume 8.5 fl (7.4-10.4); Monocytes Absolute Auto 0.6 K/mm3 (0.1-0.6); Monocytes Percent Auto 7.6 % (2.6-8.5); Neutrophils Absolute Auto 6.2 K/mm3 (1.3-6.7); Platelet Count Result 133 k/mm3 (150-375); Red Blood Count 3.25 M/mm3 (4.2-5.4); Red Cell Distribution Width 13.6 % (11.5-14.5); White Blood Count 7.5 K/mm3 (4.5-10.0)
[2024-02-08 05:46] LABS: Alveolar/Arterial O2 Gradient 94.4 mmHg; Base Excess ABG 7.7 mEq/l (+/-2.0); Carboxyhemoglobin 0.3 % THb (0-2.0); Fractional Inspired Oxygen 30 %; HCO3 ABG 32.9 mEq/l (22.0-26.0); Methemoglobin ABG 0.3 %THb (0-1.5); Oxygen Saturation ABG 92.5 % (95.0-100.0); Oxyhemoglobin 90.9 % THb (90.0-100.0); PCO2 ABG 48.8 mmHg (35.0-45.0); PO2 ABG 62.2 mmHg (80.0-100.0); PO2 FiO2 Ratio Arterial Blood 2.07 %; Reduced Hemoglobin 8.5 %THb (0-5.0); Total Hemoglobin 10.9 g/dL (12.0-18.0); pH ABG 7.446 (7.350-7.450)
[2024-02-08 05:47] LABS: Arterial Blood Gas Vent Mode CMV; Arterial Blood Gas Ventilator rate 18 /MIN; Device VENTILATOR; Modified Allen's Test Pass; Site Drawn RIGHT RADIAL
[2024-02-08 05:48] LABS: Arterial Blood Gas PEEP 5 cmH2O; Arterial Blood Gas Tidal Volume 300 ml
[2024-02-08 05:50] LABS: Alanine Aminotransferase 11 U/L (6-35); Albumin Level 2.8 g/dL (3.5-5.1); Alkaline Phosphatase 77 U/L (38-126); Anion Gap 0 mmol/L (4-12); Aspartate Amino Transferase 47 U/L (14-36); Bilirubin,Total 0.7 mg/dL (0.2-1.3); Blood Urea Nitrogen 8 mg/dL (7-17); Calcium 8.2 mg/dL (8.4-10.2); Carbon Dioxide 36 mmol/L (22-30); Chloride 90 mmol/L (98-107); Estimated Glomerular Filt Rate > 60; Glucose 101 mg/dL (65-110); Magnesium 1.6 mg/dL (1.6-2.3); Phosphorus 2.6 mg/dL (2.5-4.5); Potassium 3.3 mmol/L (3.4-5.0); Sodium 126 mmol/L (137-145)
[2024-02-08] MEDS: ALPRAZolam (*CRX) 0.5 MG TABLET PO ×3 (08:17→16:55)
[2024-02-08] MEDS: POTASSIUM CHLORIDE 20 MEQ PACKET (FOR LIQUID) 40 MEQ FEED TUBE (08:19)
[2024-02-08] MEDS: POTASSIUM CHLORIDE 20 MEQ PACKET (FOR LIQUID) FEED TUBE (08:19)
[2024-02-08] MEDS: dexmedeTOMIDine 400 MCG/100 ML 400 MCG/100 ML BAG IV CONT (08:24)
[2024-02-08] MEDS: MAGNESIUM SULF 2 GM/WATER 50ML 2 GM/50 ML BAG IVPB (08:24)
[2024-02-08] MEDS: PANTOPRAZOLE SODIUM IV 40 MG VIAL IV PUSH ×2 (08:24→21:29)
[2024-02-08] MEDS: levETIRAcetam 500MG/NACL 100ML 500 MG/100 ML BAG 400 MG IVPB ×2 (08:25→21:28)
[2024-02-08] MEDS: MINERAL OIL/WHITE PETROLATUM OINTMENT 1 APPLIC EACH EYE ×2 (08:25→21:45)
--- NOTE | 2024-02-08 09:28 | PM.PNNEP ---
Progress Note: A&P Assessment and Plan (1) Hyponatremia: Code(s): E87.1 - Hypo-osmolality and hyponatremia Status: Acute Assessment and Plan: slow improvement if not stabilization at this time acute on chronic -- has had low sodiums as far back as 2012 baseline sodium seems to run in the mid upper 120s... etiology is multifactorial: COPD SSRI use alcohol intake excess fluid intake prerenal factors continue to follow repeat sodium levels (2) Chronic respiratory failure with hypoxia and hypercapnia: Code(s): J96.11 - Chronic respiratory failure with hypoxia; J96.12 - Chronic respiratory failure with hypercapnia Status: Chronic Assessment and Plan: on ventilator support complicated by her known end stage COPD Will continue to follow. Subjective Date/time seen: 02/08/24 09:28 Interval history: Follow-up for acute on chronic hyponatremia. Chart reviewed -- assuming care from Dr. Richardson; remains intubated/sedated and on mechanical ventilation; reasonable urine output noted and remains hemodynamically stable; appropriate incrementation in H/H with PRBC transfusion yesterday. Exam Narrative: General: ill appearing/cachectic female intubated and on mechanical ventilation Heart: normal S1 and S2; no rub Lungs: coarse breath sounds Abdomen: soft, nontender, nondistended, positive bowel sounds Extremities: no cyanosis or clubbing; no edema Skin: warm and dry Objective Data Vital Signs Vital Signs: Vital Signs Temp Pulse Resp BP Pulse Ox O2 Del Method FiO2 02/08/24 09:20 92 18 02/08/24 08:00 103 H 20 02/08/24 09:30 92 18 02/08/24 08:00 103 H 20 02/08/24 08:00 99.8 F H 103 H 21 H 90/59 L 96 02/08/24 08:30 98 101/70 02/08/24 08:15 102 H 109/72 02/08/24 08:00 102 H 98/69 L 02/08/24 07:45 104 H 99/61 L 02/08/24 07:30 103 H 106/76 02/08/24 07:15 101 H 97/60 L 02/08/24 07:00 105 H 106/72 02/08/24 08:24 99 16 02/08/24 07:32 104 H 18 02/08/24 07:22 103 H 95 Mechanical Ventilation 30 02/08/24 07:19 102 H 18 02/08/24 06:00 100 93/71 L 02/08/24 04:00 105 H 105/77 02/08/24 04:00 94 Mechanical Ventilation 02/08/24 04:00 30 02/08/24 06:00 99.5 F 100 18 98/65 L 94 02/08/24 06:00 98 02/08/24 06:00 98 18 02/08/24 04:00 105 H 18 02/08/24 04:00 105 H 18 02/08/24 06:00 98 18 02/08/24 05:49 101 H 95 Mechanical Ventilation 02/08/24 03:45 99.4 F 104 H 18 116/76 97 02/08/24 03:45 104 H 116/76 02/08/24 04:00 99.1 F 105 H 18 105/77 99 02/08/24 04:00 105 H 02/08/24 03:09 102 H 104/80 02/08/24 03:09 102 H 104/80 02/08/24 02:00 104 H 18 02/08/24 02:00 104 H 18 02/08/24 02:00 104 H 103/69 02/08/24 02:00 99.4 F 104 H 18 103/69 93 02/08/24 02:00 104 H 02/08/24 01:40 94 94 Mechanical Ventilation 02/08/24 01:41 92 18 02/07/24 23:10 96 99 Mechanical Ventilation 02/08/24 01:08 96 18 02/08/24 00:00 95 02/08/24 00:00 99 Mechanical Ventilation 02/07/24 22:45 99.8 F H 94 18 96/68 L 98 02/07/24 22:30 99.9 F H 97 18 107/69 99 02/07/24 22:15 99.9 F H 99 18 104/74 96 02/07/24 22:00 99.8 F H 99 18 118/96 H 97 02/08/24 00:00 98.8 F 89 18 109/70 99 02/08/24 00:00 89 18 02/08/24 00:00 89 18 02/08/24 00:00 89 109/70 02/07/24 23:57 30 02/07/24 21:45 99.7 F H 100 18 85/60 L 95 02/07/24 22:00 99 18 02/07/24 22:00 99 18 02/07/24 22:00 99 02/07/24 20:00 95 02/07/24 22:33 98 107/69 02/07/24 22:07 99 118/96 H 02/07/24 21:47 96 85/60 L 02/07/24 20:00 99.5 F 95 18 94/75 L 96 02/07/24 20
[2024-02-08] MEDS: SODIUM CHLORIDE 0.9% IV 1,000 ML 50 ML IV CONT (11:41)
--- NOTE | 2024-02-08 14:18 | WPDINTPN ---
Progress Note: A&P Assessment and Plan (1) Seizure: Code(s): R56.9 - Unspecified convulsions Status: Acute Assessment and Plan: Patient presented with unresponsiveness, had seizures x2. One in the ER, and the other [address] scan area when she was getting a head CT. -patient was loaded with Keppra 1000 mg IV x1 -continue Keppra 500 mg IV q.12 hours -patient was recently admitted to an outside hospital for similar issues which was attributed to benzodiazepine withdrawal. -continue her home Xanax -neurology has been consulted by ER physician -no seizures noted since the patient is in the ICU -open her eyes, follows simple commands in all extremities -urology following the patient, commended continue Keppra (2) Acute on chronic respiratory failure with hypoxia and hypercapnia: Code(s): J96.21 - Acute and chronic respiratory failure with hypoxia; J96.22 - Acute and chronic respiratory failure with hypercapnia Status: Acute Assessment and Plan: Patient was intubated on 02/06/2024 after her 2nd seizure as she was not protecting the airway due to unresponsive. -currently on CMV mode of ventilation, peep of 5, 30% FiO2 -chest x-ray this morning showed Right perihilar infiltrates may represent atelectasis or developing pneumonia. -ABGs reviewed, ventilator adjusted -continue bronchodilators, -continue Trelegy Ellipta which is a home medication -switched fentanyl and Versed infusion to Precedex infusion. Placed patient on ASV mode of ventilation, as when patient was placed on pressure support ventilation, the ventilator went into an apneic mode. Therefore patient was placed on ASV mode of ventilation (3) Hyponatremia: Code(s): E87.1 - Hypo-osmolality and hyponatremia Status: Chronic Assessment and Plan: Hyponatremia with sodium levels of 120 -patient does have a history of chronic hyponatremia -patient was recently admitted to [facility] from January 02 to January 11, 2024 for hyponatremia, benzodiazepine withdrawal -patient also has a history of alcohol abuse -start folic acid and thiamine -patient has NOT received any hypertonic saline as mention by the ER physician and the hospitalist note -etiology is multifactorial, alcohol use, Trintellix/SSRIs, hypovolemia, 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 -appreciate nephrology managing the sodium levels -sodium levels in the better range this morning, patient opens eyes to name and follows simple commands -discuss with Nephrology, continue normal saline at 50 mL/hour (4) End stage COPD: Code(s): J44.9 - Chronic obstructive pulmonary disease, unspecified Status: Chronic Assessment and Plan: End-stage COPD/emphysema, -will continue bronchodilators -continue home Trelegy Ellipta (5) Elevated lactic acid level: Code(s): R79.89 - Other specified abnormal findings of blood chemistry Status: Acute Assessment and Plan: Elevated lactic acid likely secondary to seizure activity, repeat lactic acid level has normalized (6) Hypokalemia: Code(s): E87.6 - Hypokalemia Status: Acute Assessment and Plan: Will replace potassium and magnesium (7) Protein-calorie malnutrition, severe: Code(s): E43 - Unspecified severe protein-calorie malnutrition Status: Acute Assessment and Plan: History of severe protein calorie malnutrition -tolerating tube feeds (8) Septic shock: Code(s): A41.9 - Sepsis, unspecified organism; R65.21 - Severe sepsis with septic shock Status: Acute Assessment and Plan: Patient with hypotension, hypothermia, elevated lactic acid, shock -could be related to septic this is hypovolemia -patient received 1 L IV fluid bolus -lactic acid is normal -Levophed requirement likely related to sedation and or infection. Maintain SBP > 100 mmHg for adequate end organ perfusion -02/05: Blood cultures have been obtained -02/05: Started on cefepime, will cont
[2024-02-08 15:39] LABS: Osmolality, Urine 393 mOsm/kg (50-1200)
--- NOTE | 2024-02-08 16:08 | PM.IMPN ---
Progress Note: A&P Assessment and Plan (1) Seizure: Code(s): R56.9 - Unspecified convulsions Status: Acute (2) Acute on chronic respiratory failure with hypoxia and hypercapnia: Code(s): J96.21 - Acute and chronic respiratory failure with hypoxia; J96.22 - Acute and chronic respiratory failure with hypercapnia Status: Acute (3) Hyponatremia: Code(s): E87.1 - Hypo-osmolality and hyponatremia Status: Chronic (4) End stage COPD: Code(s): J44.9 - Chronic obstructive pulmonary disease, unspecified Status: Chronic (5) Elevated lactic acid level: Code(s): R79.89 - Other specified abnormal findings of blood chemistry Status: Acute (6) Hypokalemia: Code(s): E87.6 - Hypokalemia Status: Acute (7) Protein-calorie malnutrition, severe: Code(s): E43 - Unspecified severe protein-calorie malnutrition Status: Acute (8) Septic shock: Code(s): A41.9 - Sepsis, unspecified organism; R65.21 - Severe sepsis with septic shock Status: Acute (9) Anemia: Code(s): D64.9 - Anemia, unspecified Status: Resolved Plan This is a 58-year-old female with past medical history of end-stage COPD cachexia, alcohol dependence, tobacco dependence, chronic hypoxic hypercarbic respiratory failure on supplemental oxygen at home, generalized anxiety disorder, severe protein and calorie malnutrition presents to the ED due to was seen at the outside facility and discharged home. EMS was called by family has patient appeared unresponsive. Patient was seen at outside hospital recently for Xanax withdrawal. When EMS arrived chief to painful or stimuli vitals were within normal limits. DVT lasting approximately 45 seconds to a minute here. Patient was given Ativan and phenobarbital. Patient was also hypothermic on presentation. Patient continued to have another seizure while in the following which patient was intubated for airway protection with suspicion for status epilepticus. Laboratory evaluation showed sodium of 120 lactic acid of 4.7 CMP otherwise unremarkable. CBC with mild anemia and hemoglobin of. UA negative urine drug screen positive for cannabinoids but otherwise negative. Alcohol level was negative. CT scan of the head was negative for any acute intracranial abnormality. She was admitted to the for further treatment. Patient has been loaded with Keppra. No further seizures has been noted. Neurology has been consulted. Acute ventilatory failure continue on bronchodilators. Vent management per ICU Hyponatremia sodium level of 120 acute on chronic hyponatremia recently admitted in December for hyponatremia. History of alcohol abuse. Continue to monitor sodium level nephrology on board End-stage COPD line hypokalemia replace and monitor Severe protein calorie malnutrition Septic shock with hypotension hypothermia elevated lactic acid received IV fluid resuscitation. Levophed has been started. Blood culture has been obtained and has been on broad-spectrum antibiotics Anemia hemoglobin dropped to 7.5 no signs of bleeding noted. PPI b.i.d. monitor H&H transfuse 1 unit of PRBC 02/07/2024. H&H appropriately increased continue to monitor and monitor any signs of bleeding DVT prophylaxis SCDs Stress ulcer prophylaxis: Protonix Nutrition tube feed Code status currently full code plans to discuss further with she was recently discharged on hospice on 01/11/2024. Subjective Date/time seen: 02/08/24 16:08 Interval history: events noted, transfused prbc. H&H up today. Review of Systems Review of Systems: ROS unobtainable: Yes unobtainable due to mental status Exam Narrative: General: Cachectic and ill-appearing female. Intubated and sedated in no acute distress HEENT:? Pupils reactive, sclerae is clear, ETT in place Neck:? Supple Respiratory:? Clear to auscultation bilaterally, adequate air entry Cardiac:? S1-S2 normal, tachycardic Abdomen:? Soft,
[2024-02-09] VITALS (36 sets, daily range): BP systolic 90–115; BP diastolic 66–94; PULSE 70–135; RESP 18–26; TEMP 36.3–37.4; O2SAT 92–100
[2024-02-09] MEDS: SODIUM CHLORIDE 0.9% IV 1,000 ML 50 ML IV CONT (01:30)
[2024-02-09] MEDS: IPRATROPIUM BR 0.02% INH SOLN 0.5 MG/2.5 ML VIAL INHALATION ×3 (02:11→21:30)
[2024-02-09] MEDS: LEVALBUTEROL NEB 1.25 MG/3 ML INHALATION ×3 (02:11→21:35)
[2024-02-09] MEDS: dexmedeTOMIDine 400 MCG/100 ML 400 MCG/100 ML BAG 5.9 MCG IV CONT (03:40)
[2024-02-09 05:10] LABS: Basophils Percent Auto 0.5 % (0.2-1.2); Eosinophils Absolute Auto 0.2 K/mm3 (0-0.3); Hematocrit 30.8 % (37.0-47.0); Hemoglobin 10.1 g/dL (12.0-15.0); Immature Granulocyte Absolute 0.01 K/mm3 (0.00-0.031); Immature Granulocyte Percent A 0.2 % (0-0.5); Lymphocytes Absolute Auto 0.38 K/mm3 (0.9-3.2); Lymphocytes Percent Auto 6.1 % (18.3-44.2); Mean Corpuscular HGB Conc 32.8 g/dl (32-36); Mean Corpuscular Hemoglobin 29.4 pg (26-34); Mean Corpuscular Volume 89.8 fl (80-100); Mean Platelet Volume 8.9 fl (7.4-10.4); Monocytes Absolute Auto 0.5 K/mm3 (0.1-0.6); Monocytes Percent Auto 8.6 % (2.6-8.5); Neutrophils Absolute Auto 5.1 K/mm3 (1.3-6.7); Neutrophils Percent Auto 81.6 % (45.5-73.1); Platelet Count Result 135 k/mm3 (150-375); Red Blood Count 3.43 M/mm3 (4.2-5.4); Red Cell Distribution Width 13.8 % (11.5-14.5); White Blood Count 6.3 K/mm3 (4.5-10.0)
[2024-02-09 05:14] LABS: Alanine Aminotransferase 12 U/L (6-35); Albumin Level 3.1 g/dL (3.5-5.1); Alkaline Phosphatase 78 U/L (38-126); Anion Gap 3 mmol/L (4-12); Aspartate Amino Transferase 40 U/L (14-36); Bilirubin,Total 0.7 mg/dL (0.2-1.3); Blood Urea Nitrogen 8 mg/dL (7-17); Calcium 8.5 mg/dL (8.4-10.2); Carbon Dioxide 30 mmol/L (22-30); Chloride 94 mmol/L (98-107); Estimated Glomerular Filt Rate > 60; Glucose 115 mg/dL (65-110); Magnesium 1.8 mg/dL (1.6-2.3); Potassium 3.9 mmol/L (3.4-5.0); Sodium 127 mmol/L (137-145)
[2024-02-09 05:49] LABS: Carboxyhemoglobin 0.3 % THb (0-2.0); Fractional Inspired Oxygen 30 %; HCO3 ABG 28.6 mEq/l (22.0-26.0); Methemoglobin ABG 0.2 %THb (0-1.5); Oxygen Content ABG 16.2 %vol (16.0-22.0); Oxygen Saturation ABG 97.8 % (95.0-100.0); Oxyhemoglobin 96.4 % THb (90.0-100.0); PCO2 ABG 38.7 mmHg (35.0-45.0); PO2 ABG 96.4 mmHg (80.0-100.0); PO2 FiO2 Ratio Arterial Blood 3.21 %; Reduced Hemoglobin 3.1 %THb (0-5.0); Total Hemoglobin 11.9 g/dL (12.0-18.0); pH ABG 7.487 (7.350-7.450)
[2024-02-09 05:51] LABS: Device VENTILATOR; Modified Allen's Test Pass; Site Drawn LEFT RADIAL
[2024-02-09 05:52] LABS: Arterial Blood Gas PEEP 5 cmH2O; Arterial Blood Gas Tidal Volume 350 ml; Arterial Blood Gas Vent Mode CMV; Arterial Blood Gas Ventilator rate 18 /MIN
[2024-02-09] MEDS: CEFEPIME 2 GM/NS 50 ML 2 GM/50 ML BAG IVPB (06:10)
[2024-02-09] MEDS: CENTRAL LINE FLUSH 10 ML IV PUSH ×3 (06:46→20:45)
[2024-02-09 08:43] LABS: Alveolar/Arterial O2 Gradient 95.8 mmHg; Fractional Inspired Oxygen 30 %; HCO3 ABG 27.5 mEq/l (22.0-26.0); Oxygen Content ABG 15.5 %vol (16.0-22.0); Oxygen Saturation ABG 94.3 % (95.0-100.0); Oxyhemoglobin 93.2 % THb (90.0-100.0); PCO2 ABG 41.9 mmHg (35.0-45.0); PO2 ABG 68.9 mmHg (80.0-100.0); Total Hemoglobin 11.8 g/dL (12.0-18.0); pH ABG 7.435 (7.350-7.450)
[2024-02-09 08:44] LABS: Arterial Blood Gas PEEP 5 cmH2O; Arterial Blood Gas Pressure Support 5 cmH2O; Arterial Blood Gas Vent Mode SPONTANEOUS; Device VENTILATOR; Modified Allen's Test Pass; Site Drawn LEFT RADIAL
[2024-02-09] MEDS: ALPRAZolam (*CRX) 0.5 MG TABLET PO ×3 (08:51→16:57)
[2024-02-09] MEDS: levETIRAcetam 500MG/NACL 100ML 500 MG/100 ML BAG 400 MG IVPB ×2 (08:51→20:45)
[2024-02-09] MEDS: PANTOPRAZOLE SODIUM IV 40 MG VIAL IV PUSH ×2 (08:52→20:45)
--- NOTE | 2024-02-09 09:58 | WPDINTPN ---
Progress Note: A&P Assessment and Plan (1) Seizure: Code(s): R56.9 - Unspecified convulsions Status: Acute Assessment and Plan: Patient presented with unresponsiveness, had seizures x2. One in the ER, and the other [address] scan area when she was getting a head CT. Suspected secondary to benzodiazepine withdrawal -patient was loaded with Keppra 1000 mg IV x1 -continue Keppra 500 mg IV q.12 hours -patient was recently admitted to an outside hospital for similar issues which was attributed to benzodiazepine withdrawal. -continue her home Xanax -patient seen by Neurology -no seizures noted since the patient is in the ICU (2) Acute on chronic respiratory failure with hypoxia and hypercapnia: Code(s): J96.21 - Acute and chronic respiratory failure with hypoxia; J96.22 - Acute and chronic respiratory failure with hypercapnia Status: Acute Assessment and Plan: Patient was intubated on 02/06/2024 after her 2nd seizure as she was not protecting the airway due to unresponsive. -patient has advanced baseline COPD and has been intubated multiple times in the past -currently on CMV mode of ventilation, peep of 5, 30% FiO2 - 5/5 PSV SBT done for more than 30 minutes. RSBI, ABGI and Vitals acceptable. Pt awake and following commands. Will extubate and monitor. NPO for now. Bipap PRN -chest x-ray shows infiltrate -antibiotics changed to Rocephin and doxycycline -continue bronchodilators, -continue Trelegy Ellipta which is a home medication -PCR for RSV influenza and COVID were negative -blood cultures are negative for now (3) Hyponatremia: Code(s): E87.1 - Hypo-osmolality and hyponatremia Status: Chronic Assessment and Plan: Hyponatremia with sodium levels of 120 -patient does have a history of chronic hyponatremia -patient was recently admitted to [facility] from January 02 to January 11, 2024 for hyponatremia, benzodiazepine withdrawal -patient also has a history of alcohol abuse -continue folic acid and thiamine -patient has NOT received any hypertonic saline as mention by the ER physician and the hospitalist note -etiology is multifactorial, alcohol use, Trintellix/SSRIs, hypovolemia, 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 Sodium improved to 127. Monitor -will DC further fluids (4) End stage COPD: Code(s): J44.9 - Chronic obstructive pulmonary disease, unspecified Status: Chronic Assessment and Plan: End-stage COPD/emphysema, -will continue bronchodilators -continue home Trelegy Ellipta (5) Elevated lactic acid level: Code(s): R79.89 - Other specified abnormal findings of blood chemistry Status: Acute Assessment and Plan: Elevated lactic acid likely secondary to seizure activity, repeat lactic acid level has normalized (6) Hypokalemia: Code(s): E87.6 - Hypokalemia Status: Acute Assessment and Plan: Will replace potassium and magnesium (7) Protein-calorie malnutrition, severe: Code(s): E43 - Unspecified severe protein-calorie malnutrition Status: Acute Assessment and Plan: History of severe protein calorie malnutrition -tolerating tube feeds (8) Septic shock: Code(s): A41.9 - Sepsis, unspecified organism; R65.21 - Severe sepsis with septic shock Status: Acute Assessment and Plan: Patient with hypotension, hypothermia, elevated lactic acid, shock -could be related to septic this is hypovolemia -patient received 1 L IV fluid bolus -lactic acid is normal -Levophed requirement likely related to sedation and or infection. Maintain SBP > 100 mmHg for adequate end organ perfusion -02/05: Blood cultures have been obtained -02/05: Started on cefepime, will continue -02/07: DC vancomycin -02/08 -switch to Rocephin and doxycycline (9) Anemia: Code(s): D64.9 - Anemia, unspecified Status: Resolved Assessment and Plan: 02/06: Patient dropped
--- NOTE | 2024-02-09 10:30 | PM.PNNEP ---
Progress Note: A&P Assessment and Plan (1) Hyponatremia: Code(s): E87.1 - Hypo-osmolality and hyponatremia Status: Acute Assessment and Plan: slow improvement if not stabilization at this time acute on chronic -- has had low sodiums as far back as 2012 baseline sodium seems to run in the mid upper 120s... etiology is multifactorial: COPD SSRI use alcohol intake excess fluid intake prerenal factors continue to follow repeat sodium levels (2) Chronic respiratory failure with hypoxia and hypercapnia: Code(s): J96.11 - Chronic respiratory failure with hypoxia; J96.12 - Chronic respiratory failure with hypercapnia Status: Chronic Assessment and Plan: on ventilator support complicated by her known end stage COPD Not much else to add -- will continue to follow from a distance. Subjective Date/time seen: 02/09/24 10:30 Interval history: Follow-up for acute on chronic hyponatremia. Sodium level remains relatively stable at this time; remains intubated/sedated on mechanical ventilation; no apparent distress noted; no other issues/events overnight or earlier this morning. Exam Narrative: General: ill appearing/cachectic female intubated and on mechanical ventilation Heart: normal S1 and S2; no rub Lungs: coarse breath sounds Abdomen: soft, nontender, nondistended, positive bowel sounds Extremities: no cyanosis or clubbing; no edema Skin: warm and intact Objective Data Vital Signs Vital Signs: Vital Signs Temp Pulse Resp BP Pulse Ox O2 Del Method O2 Flow Rate 02/09/24 10:00 98 F 115 H 24 H 104/72 95 02/09/24 10:00 115 H 02/09/24 09:15 104 H 26 H 98 Nasal Cannula 2 02/09/24 08:55 104 H 100 02/09/24 09:00 104 H 20 02/09/24 08:00 86 24 H 02/09/24 08:00 99.1 F 86 24 H 108/94 H 100 02/09/24 08:00 02/09/24 08:00 86 24 H 100 Mechanical Ventilation 02/09/24 08:00 86 02/09/24 08:05 104 H 20 02/09/24 08:03 109 H 93 Mechanical Ventilation 02/09/24 07:50 81 22 H 02/09/24 07:18 135 H 24 H 02/09/24 06:00 81 22 H 02/09/24 04:00 89 20 02/09/24 06:00 98.6 F 88 22 H 91/67 L 97 02/09/24 06:00 80 02/09/24 05:21 97 92 Mechanical Ventilation 02/09/24 04:00 98.7 F 83 18 109/69 95 02/09/24 03:56 02/09/24 03:53 81 19 96 Mechanical Ventilation 02/09/24 03:52 80 02/09/24 03:40 93 22 H 02/09/24 03:40 93 22 H 02/09/24 02:22 76 18 02/09/24 02:00 73 18 02/09/24 02:12 75 18 02/09/24 02:07 73 98 Mechanical Ventilation 02/09/24 02:00 97.9 F 73 18 115/79 99 02/09/24 02:00 73 02/09/24 00:00 77 18 02/09/24 00:00 97.4 F L 78 18 90/66 L 99 02/08/24 23:55 02/08/24 23:51 78 18 96 Mechanical Ventilation 02/08/24 23:51 79 02/08/24 23:42 125 H 20 02/08/24 23:32 109 H 96 Mechanical Ventilation 02/08/24 22:00 75 18 02/08/24 22:00 96.6 F L 79 16 127/88 97 02/08/24 22:00 79 02/08/24 21:00 74 18 02/08/24 21:10 72 18 02/08/24 21:04 71 18 02/08/24 20:58 70 98 Mechanical Ventilation 02/08/24 20:19 78 20 02/08/24 19:00 90 20 02/08/24 20:00 97.8 F 73 18 124/92 H 97 02/08/24 20:00 02/08/24 20:00 78 18 94 Mechanical Ventilation 02/08/24 20:00 90 02/08/24 18:00 99.2 F 76 18 115/74 94 02/08/24 18:00 76 Intake/Output Intake/Output: Intake & Output 02/06/24 02/07/24 02/08/24 02/09/24 23:59 23:59 23:59 23:59 Intake Total 2116.0 2500.0 2850.3 1147.6 Output Total 369 433 2410 1999 Balance 1586.0 1950.0 950.3 -852.4 Meds/Results Medications: Active Medications Generic Name Dose Route Start Last Admin Trade Name Freq PRN Reason Stop Dose Admin Alprazolam 0.5
[2024-02-09] MEDS: DOXYCYCLINE HYCLATE 100 MG TABLET FEED TUBE ×2 (10:48→20:45)
--- NOTE | 2024-02-09 11:49 | PCNFU ---
Nutrition Follow-Up Complete: 1. Increased protein energy needs related to mechanical ventilation as evidenced by need for full tube feeding 2. Severe protein calorie malnutrition related to chronic inadequate intake, pulmonary cachexia as evidenced ny weight loss -18%/6 months; intakes <75% needs >1 month; severe muscle wasting (temporalis, clavicles, shoulders) and severe fat loss (buccal fat pads, ribs) Goal: Meet estimated protein energy needs Patient will continue current goal. Pt current nutrition is NPO. Nutrition recommendations: advancing diet order MD orders. Last recorded weight is 30.2 kg, up from 29.5 kg on admit. Bowel Motility:No BM reported. Labs Reviewed:Glu 115, Cr .2, Na 123, Alb 3.1, Hct 30.8,Hgb 10.1 Meds Noted:Sammi Rogel. Skin: WNL Additional Notes: Patient has been extubated today. diet order: NPO. Recommend advancing diet as tolerated per MD orders with Ensure Enlive TID for additional 350 kcals and 20 gms protein. Monitoring diet orders, intakes, weights, labs, stool patterns, tube feeding tolerance Follow up every 3 days per policy. Daily in rounds
[2024-02-09] MEDS: dexmedeTOMIDine 400 MCG/100 ML 400 MCG/100 ML BAG IV CONT (18:14)
[2024-02-10] VITALS (17 sets, daily range): BP systolic 82–126; BP diastolic 63–97; PULSE 60–112; RESP 16–28; TEMP 35.3–37.7; O2SAT 96–100
[2024-02-10] MEDS: CENTRAL LINE FLUSH 10 ML IV PUSH ×3 (04:03→21:27)
[2024-02-10 04:29] LABS: Alveolar/Arterial O2 Gradient 33.5 mmHg; Base Excess ABG 10.3 mEq/l (+/-2.0); Carboxyhemoglobin 0.3 % THb (0-2.0); Fractional Inspired Oxygen 28 %; HCO3 ABG 37.1 mEq/l (22.0-26.0); Methemoglobin ABG 0.3 %THb (0-1.5); Oxygen Content ABG 15.3 %vol (16.0-22.0); Oxygen Saturation ABG 96.9 % (95.0-100.0); Oxyhemoglobin 95.5 % THb (90.0-100.0); PO2 ABG 93.2 mmHg (80.0-100.0); PO2 FiO2 Ratio Arterial Blood 3.33 %; Reduced Hemoglobin 3.9 %THb (0-5.0); Total Hemoglobin 11.3 g/dL (12.0-18.0); pH ABG 7.396 (7.350-7.450)
[2024-02-10 04:31] LABS: Device NASAL CANNULA; Modified Allen's Test Pass; PCO2 ABG 61.8 mmHg (35.0-45.0); Site Drawn LEFT RADIAL
[2024-02-10 05:09] LABS: Basophils Percent Auto 0.5 % (0.2-1.2); Eosinophils Absolute Auto 0.3 K/mm3 (0-0.3); Eosinophils Percent Auto 5.7 % (0-4.4); Hematocrit 31.5 % (37.0-47.0); Immature Granulocyte Absolute 0.01 K/mm3 (0.00-0.031); Immature Granulocyte Percent A 0.2 % (0-0.5); Lymphocytes Absolute Auto 0.51 K/mm3 (0.9-3.2); Lymphocytes Percent Auto 11.6 % (18.3-44.2); Mean Corpuscular HGB Conc 31.7 g/dl (32-36); Mean Corpuscular Hemoglobin 28.8 pg (26-34); Mean Corpuscular Volume 90.8 fl (80-100); Mean Platelet Volume 9.3 fl (7.4-10.4); Monocytes Absolute Auto 0.6 K/mm3 (0.1-0.6); Monocytes Percent Auto 13.4 % (2.6-8.5); Neutrophils Percent Auto 68.6 % (45.5-73.1); Platelet Count Result 157 k/mm3 (150-375); Red Blood Count 3.47 M/mm3 (4.2-5.4); White Blood Count 4.4 K/mm3 (4.5-10.0)
[2024-02-10 05:16] LABS: Alanine Aminotransferase 12 U/L (6-35); Albumin Level 2.8 g/dL (3.5-5.1); Alkaline Phosphatase 74 U/L (38-126); Aspartate Amino Transferase 34 U/L (14-36); Bilirubin,Total 0.4 mg/dL (0.2-1.3); Blood Urea Nitrogen 5 mg/dL (7-17); Calcium 8.5 mg/dL (8.4-10.2); Carbon Dioxide > 40 mmol/L (22-30); Chloride 95 mmol/L (98-107); Estimated Glomerular Filt Rate > 60; Glucose 116 mg/dL (65-110); Magnesium 1.8 mg/dL (1.6-2.3); Phosphorus 3.9 mg/dL (2.5-4.5); Sodium 134 mmol/L (137-145)
[2024-02-10] MEDS: FLUTICASONE/UMECLIDIN/VILANTER 100-62.5-25 MCG ELLIPTA 1 PUFF INHALATION (07:43)
[2024-02-10] MEDS: levETIRAcetam 500MG/NACL 100ML 500 MG/100 ML BAG 400 MG IVPB ×2 (08:12→21:27)
[2024-02-10] MEDS: ALPRAZolam (*CRX) 0.5 MG TABLET PO ×3 (08:12→16:32)
[2024-02-10] MEDS: PANTOPRAZOLE SODIUM IV 40 MG VIAL IV PUSH ×2 (08:12→21:27)
[2024-02-10] MEDS: DOXYCYCLINE HYCLATE 100 MG TABLET FEED TUBE ×2 (08:12→21:27)
[2024-02-10] MEDS: BENZONATATE 100 MG CAPSULE PO ×3 (08:12→16:32)
--- NOTE | 2024-02-10 10:33 | WPDINTPN ---
Progress Note: A&P Assessment and Plan (1) Seizure: Code(s): R56.9 - Unspecified convulsions Status: Acute Assessment and Plan: Patient presented with unresponsiveness, had seizures x2. One in the ER, and the other [address] scan area when she was getting a head CT. Suspected secondary to benzodiazepine withdrawal -patient was loaded with Keppra 1000 mg IV x1 -continue Keppra 500 mg IV q.12 hours -patient was recently admitted to an outside hospital for similar issues which was attributed to benzodiazepine withdrawal. -continue her home Xanax -patient seen by Neurology -no seizures noted since the patient is in the ICU (2) Acute on chronic respiratory failure with hypoxia and hypercapnia: Code(s): J96.21 - Acute and chronic respiratory failure with hypoxia; J96.22 - Acute and chronic respiratory failure with hypercapnia Status: Acute Assessment and Plan: Patient was intubated on 02/06/2024 after her 2nd seizure as she was not protecting the airway due to unresponsive. -patient has advanced baseline COPD and has been intubated multiple times in the past -02/08 extubated and now on nasal cannula -incentive spirometry -chest x-ray showed infiltrate -continue course of Rocephin and doxycycline -continue bronchodilators, -continue Trelegy Ellipta which is a home medication -PCR for RSV influenza and COVID were negative -blood cultures are negative for now (3) Hyponatremia: Code(s): E87.1 - Hypo-osmolality and hyponatremia Status: Chronic Assessment and Plan: Hyponatremia with sodium levels of 120 on presentation -patient does have a history of chronic hyponatremia -patient was recently admitted to [facility] from January 02 to January 11, 2024 for hyponatremia, benzodiazepine withdrawal -patient also has a history of alcohol abuse -continue folic acid and thiamine -patient has NOT received any hypertonic saline as mention by the ER physician and the hospitalist note -etiology is multifactorial, alcohol use, Trintellix/SSRIs, hypovolemia, 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 Sodium improved to 134 now. Monitor -off all IV fluids Resume diet (4) End stage COPD: Code(s): J44.9 - Chronic obstructive pulmonary disease, unspecified Status: Chronic Assessment and Plan: End-stage COPD/emphysema, -will continue bronchodilators -continue home Trelegy Ellipta (5) Elevated lactic acid level: Code(s): R79.89 - Other specified abnormal findings of blood chemistry Status: Acute Assessment and Plan: Elevated lactic acid likely secondary to seizure activity, repeat lactic acid level has normalized (6) Hypokalemia: Code(s): E87.6 - Hypokalemia Status: Acute Assessment and Plan: Will replace potassium and magnesium (7) Protein-calorie malnutrition, severe: Code(s): E43 - Unspecified severe protein-calorie malnutrition Status: Acute Assessment and Plan: Diet. Nutritional supplements ordered as per dietitian recommendation (8) Septic shock: Code(s): A41.9 - Sepsis, unspecified organism; R65.21 - Severe sepsis with septic shock Status: Acute Assessment and Plan: Patient with hypotension, hypothermia, elevated lactic acid, shock -could be related to septic this is hypovolemia -patient received 1 L IV fluid bolus -lactic acid is normal -Levophed requirement likely related to sedation and or infection. Maintain SBP > 100 mmHg for adequate end organ perfusion -02/05: Blood cultures have been obtained -02/05: Started on cefepime, will continue -02/07: DC vancomycin -02/08 continue Rocephin and doxycycline (9) Anemia: Code(s): D64.9 - Anemia, unspecified Status: Resolved Assessment and Plan: 02/06: Patient dropped hemoglobin to 7.5, repeat hemoglobin was also 7.5. No obvious source of bleeding noted -will hold Lovenox, place SCDs -Protonix IV
--- NOTE | 2024-02-10 10:47 | PCFNICU ---
ICU Rounding Note: Pt current nutrition is Heart Healthy. Nutrition recommendation: Ensure Enlive TID Last recorded weight is 31 kg, up from 29.5 kg on admit. Bowel Motility: No BM reported at this time. Labs Reviewed:Glu 116, Cr 0.2,BUN 5, Hct 31.5, Hgb 10.2 Meds Noted: Keppra, Protonix Skin: WNL Additional Notes: Patient eating breakfast this morning. MD orders for Ensure Enlive TID for additional 350 kcals and 20 gms protein. Following daily in ICU rounds. Monitoring diet orders, intakes, weights, labs, stool patterns, meds. Follow up every 5 days per policy. Daily in rounds.
[2024-02-10] MEDS: KCL 40 MEQ/WATER 100 ML 100 ML 25 ML IVPB (11:24)
[2024-02-10] MEDS: MAGNESIUM SULF 1 GM/D5W 100 ML 1 GM/100 ML BAG IVPB (11:25)
[2024-02-10] MEDS: POTASSIUM CHLORIDE 20 MEQ PACKET (FOR LIQUID) 40 MEQ PO (11:28)
[2024-02-10] MEDS: ALBUTEROL SULFATE (*SP) AEROSOL 1 PUFF 2 PUFF INHALATION ×2 (12:47→16:31)
[2024-02-10] MEDS: guaiFENesin/DEXTROMETHORPHAN 10 ML UDC PO (15:42)
[2024-02-10] MEDS: diphenhydrAMINE HCl INJ 50 MG/ML VIAL 25 MG IV PUSH (21:25)
[2024-02-10] MEDS: ACETAMINOPHEN 500 MG TABLET 1000 MG PO (21:26)
[2024-02-11] VITALS (19 sets, daily range): BP systolic 106–121; BP diastolic 58–86; PULSE 82–118; RESP 18–28; TEMP 36.2–37.4; O2SAT 87–100
[2024-02-11 05:11] LABS: Alveolar/Arterial O2 Gradient 61.2 mmHg; Base Excess ABG 12.5 mEq/l (+/-2.0); Carboxyhemoglobin 0.3 % THb (0-2.0); Fractional Inspired Oxygen 28 %; HCO3 ABG 38.9 mEq/l (22.0-26.0); Methemoglobin ABG 0.3 %THb (0-1.5); Oxygen Content ABG 15.4 %vol (16.0-22.0); Oxygen Saturation ABG 93.7 % (95.0-100.0); Oxyhemoglobin 93.1 % THb (90.0-100.0); PCO2 ABG 59.4 mmHg (35.0-45.0); PO2 ABG 68.4 mmHg (80.0-100.0); PO2 FiO2 Ratio Arterial Blood 2.44 %; Reduced Hemoglobin 6.3 %THb (0-5.0); Total Hemoglobin 11.7 g/dL (12.0-18.0); pH ABG 7.434 (7.350-7.450)
[2024-02-11 05:12] LABS: Device NASAL CANNULA; Modified Allen's Test Pass; Site Drawn LEFT BRACHIAL
[2024-02-11 05:14] LABS: Basophils Percent Auto 0.7 % (0.2-1.2); Eosinophils Absolute Auto 0.2 K/mm3 (0-0.3); Eosinophils Percent Auto 3.4 % (0-4.4); Hemoglobin 10.3 g/dL (12.0-15.0); Immature Granulocyte Absolute 0.01 K/mm3 (0.00-0.031); Immature Granulocyte Percent A 0.2 % (0-0.5); Lymphocytes Absolute Auto 0.71 K/mm3 (0.9-3.2); Lymphocytes Percent Auto 12.1 % (18.3-44.2); Mean Corpuscular HGB Conc 30.3 g/dl (32-36); Mean Corpuscular Hemoglobin 28.6 pg (26-34); Mean Corpuscular Volume 94.4 fl (80-100); Mean Platelet Volume 8.8 fl (7.4-10.4); Monocytes Absolute Auto 0.7 K/mm3 (0.1-0.6); Monocytes Percent Auto 12.3 % (2.6-8.5); Neutrophils Absolute Auto 4.2 K/mm3 (1.3-6.7); Neutrophils Percent Auto 71.3 % (45.5-73.1); Platelet Count Result 223 k/mm3 (150-375); Red Cell Distribution Width 13.7 % (11.5-14.5); White Blood Count 5.9 K/mm3 (4.5-10.0)
--- NOTE | 2024-02-11 05:15 | PC.NURSE ---
Patient to room 245-1. All belongings gathered, Donadl RN receiving nurse. All questions answered.
[2024-02-11 05:42] LABS: Alanine Aminotransferase 13 U/L (6-35); Alkaline Phosphatase 79 U/L (38-126); Aspartate Amino Transferase 28 U/L (14-36); Bilirubin,Total 0.3 mg/dL (0.2-1.3); Blood Urea Nitrogen 5 mg/dL (7-17); Calcium 8.8 mg/dL (8.4-10.2); Carbon Dioxide > 40 mmol/L (22-30); Chloride 94 mmol/L (98-107); Estimated Glomerular Filt Rate > 60; Glucose 91 mg/dL (65-110); Magnesium 2.1 mg/dL (1.6-2.3); Phosphorus 3.2 mg/dL (2.5-4.5); Sodium 134 mmol/L (137-145)
[2024-02-11] MEDS: CENTRAL LINE FLUSH 10 ML IV PUSH ×2 (06:52→13:04)
[2024-02-11] MEDS: FLUTICASONE/UMECLIDIN/VILANTER 100-62.5-25 MCG ELLIPTA 1 PUFF INHALATION (08:40)
[2024-02-11] MEDS: DOXYCYCLINE HYCLATE 100 MG TABLET FEED TUBE ×2 (09:00→20:06)
[2024-02-11] MEDS: levETIRAcetam 500MG/NACL 100ML 500 MG/100 ML BAG 400 MG IVPB (09:00)
[2024-02-11] MEDS: PANTOPRAZOLE SODIUM IV 40 MG VIAL IV PUSH (09:00)
[2024-02-11] MEDS: ALPRAZolam (*CRX) 0.5 MG TABLET PO ×3 (09:00→17:13)
[2024-02-11] MEDS: guaiFENesin 12 HR 600 MG TABCR PO ×2 (09:00→20:06)
[2024-02-11] MEDS: BENZONATATE 100 MG CAPSULE PO (09:00)
--- NOTE | 2024-02-11 10:52 | PM.IMPN ---
Progress Note: A&P Assessment and Plan (1) Seizure: Code(s): R56.9 - Unspecified convulsions Status: Acute Assessment and Plan: Patient presented with unresponsiveness and had seizures x2. One in the ER, and the other [address] scan area when she was getting a head CT. Suspected secondary to benzodiazepine withdrawal -patient was loaded with Keppra 1000 mg IV x1 -continue Keppra 500 mg IV q.12 hours -patient was recently admitted to an outside hospital for similar issues which was attributed to benzodiazepine withdrawal. -Xanax resumed; continue her home Xanax -patient seen by Neurology -no seizures noted since the patient was in the ICU (2) Acute on chronic respiratory failure with hypoxia and hypercapnia: Code(s): J96.21 - Acute and chronic respiratory failure with hypoxia; J96.22 - Acute and chronic respiratory failure with hypercapnia Status: Acute Assessment and Plan: Patient was intubated on 02/06/2024 after her 2nd seizure as she was not protecting the airway due to unresponsive. -patient has advanced baseline COPD and has been intubated multiple times in the past -PCR for RSV influenza and COVID were negative -02/08 extubated and now on nasal cannula -incentive spirometry -chest x-ray showed infiltrate -blood cultures are negative for now -continue course of Rocephin and doxycycline -continue bronchodilators, -continue Trelegy Ellipta which is a home medication (3) Hyponatremia: Code(s): E87.1 - Hypo-osmolality and hyponatremia Status: Chronic Assessment and Plan: Hyponatremia with sodium levels of 120 on presentation -patient does have a history of chronic hyponatremia probably related to her lung disease -patient was recently admitted to [facility] from January 02 to January 11, 2024 for hyponatremia, benzodiazepine withdrawal -patient also has a history of alcohol abuse -continue folic acid and thiamine -patient has NOT received any hypertonic saline as mention by the ER physician and the hospitalist note -etiology is multifactorial, alcohol use, Trintellix/SSRIs, hypovolemia, 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 Sodium improved and now off all IV fluids Sodium stable at 134. Continue diet adnd change to regular. Supplements ordered (4) End stage COPD: Code(s): J44.9 - Chronic obstructive pulmonary disease, unspecified Status: Chronic Assessment and Plan: End-stage COPD/emphysema, -will continue bronchodilators -continue home Trelegy Ellipta (5) Elevated lactic acid level: Code(s): R79.89 - Other specified abnormal findings of blood chemistry Status: Acute Assessment and Plan: Elevated lactic acid likely secondary to seizure activity, repeat lactic acid level has normalized (6) Hypokalemia: Code(s): E87.6 - Hypokalemia Status: Acute Assessment and Plan: Potassium and magnesium normal. Follow (7) Protein-calorie malnutrition, severe: Code(s): E43 - Unspecified severe protein-calorie malnutrition Status: Acute Assessment and Plan: Diet started. Nutritional supplements ordered as per dietitian recommendation (8) Septic shock: Code(s): A41.9 - Sepsis, unspecified organism; R65.21 - Severe sepsis with septic shock Status: Acute Assessment and Plan: Patient with hypotension, hypothermia, elevated lactic acid felt to have shock -could be related to septic, hypovolemia or related to w/d -patient received 1 L IV fluid bolus -lactic acid is normal now -Levophed requirement likely related to sedation and or infection. Maintain SBP > 100 mmHg for adequate end organ perfusion -02/05: Blood cultures negative -02/05: Started on cefepime -02/07: DC vancomycin -02/08 continue Rocephin and doxycycline to complete a course (9) Anemia: Code(s): D64.9 - Anemia, unspecified Status: Resolved Assess
[2024-02-11] MEDS: NEOMYCIN/POLYMYXIN/BACITRACIN OINTMENT PACKET 1 PACKET (13:04)
--- NOTE | 2024-02-11 13:45 | PC.NURSE ---
On 02/11/24, the student, [Cathie Haynes], provided care and completed [facility] documentation on this patient. I have reviewed the student's documentation and agree with the findings.
--- NOTE | 2024-02-11 14:54 | HOMEO2EVAL ---
Evaluation was performed at [facility] Home Oxygen Evaluation RC: Home Oxygen (O2) Evaluation Start: 02/11/24 11:08 Freq: ONCE Status: Active Protocol: RPE Activity Type Activity Date Activity User E-sign Co-sign Detail Recorded Client Recorded Date Recorded By Document 02/11/24 14:30 LOLA RT_012 02/11/24 14:54 LOLA Document 02/11/24 14:31 LOLA RT_012 02/11/24 14:54 LOLA Document 02/11/24 14:32 LOLA [email or web address] 02/11/24 14:54 LOLA Document 02/11/24 14:35 LOLA [email or web address] 02/11/24 14:54 LOLA Document 02/11/24 14:45 [email or web address] [email or web address] 02/11/24 14:54 LOLA 02/11/24 02/11/24 02/11/24 14:30 14:31 14:32 Home O2 Evaluation [Oxygen] -Test Phase Resting Resting Resting -Oxygen Delivery Room Air Nasal Cannula Nasal Cannula -Oxygen Flow Rate (L/min) 1 2 [Pulse Oximetry] -Pulse Oximetry (90-100 %) 87 L 90 92 [Pulse Rate] -Pulse Rate (60-100 beats/min) [Comments] -Home Oxygen Evaluation Comments 02/11/24 02/11/24 14:35 14:45 Home O2 Evaluation [Oxygen] -Test Phase Exercise Resting -Oxygen Delivery Nasal Cannula Nasal Cannula -Oxygen Flow Rate (L/min) 2 2 [Pulse Oximetry] -Pulse Oximetry (90-100 %) 94 94 [Pulse Rate] -Pulse Rate (60-100 beats/min) 118 H 100 [Comments] -Home Oxygen Evaluation Comments UP TO COMMODE AND BACK INTO BED. NO CHANGES FROM PREVIOUS O2 ORDERS
[2024-02-11] MEDS: levETIRAcetam 500 MG TABLET PO (20:06)
[2024-02-12] VITALS (11 sets, daily range): BP systolic 109–132; BP diastolic 57–83; PULSE 79–101; RESP 17–18; TEMP 36.1–36.6; O2SAT 90–100
[2024-02-12] MEDS: MELATONIN 3 MG TABLET PO ×2 (01:30→20:07)
[2024-02-12 05:50] LABS: Anion Gap 0 mmol/L (4-12); Blood Urea Nitrogen 3 mg/dL (7-17); Calcium 8.7 mg/dL (8.4-10.2); Carbon Dioxide 39 mmol/L (22-30); Chloride 87 mmol/L (98-107); Estimated Glomerular Filt Rate > 60; Glucose 100 mg/dL (65-110); Potassium 3.7 mmol/L (3.4-5.0); Sodium 126 mmol/L (137-145)
[2024-02-12] MEDS: FLUTICASONE/UMECLIDIN/VILANTER 100-62.5-25 MCG ELLIPTA 1 PUFF INHALATION (07:50)
--- NOTE | 2024-02-12 09:11 | WPDNEUROPN ---
Progress Note: A&P Assessment and Plan (1) Seizure: Code(s): R56.9 - Unspecified convulsions Status: Acute (2) Metabolic encephalopathy: Code(s): G93.41 - Metabolic encephalopathy Status: Acute (3) Alcohol abuse: Code(s): F10.10 - Alcohol abuse, uncomplicated Status: Acute Plan Ms. Brink is a 58 year old female with a history of chronic alcohol use, chronic benzodiazpeine use, COPD who presented after being found unresponsive. On arrival to [place], had two witnessed seizures. Also noted to be hyponatremic to 120. Etiology of seizures is likely provoked given concerns for benzo withdrawal. - Will need MRI brain and routine EEG to complete seizure work-up - Anti-seizure medications are typically not needed for provoked seizures, especially for withdrawal, but will re-evaluate need after above testing is completed - No driving or operating heavy machinery until seizure free for at least 6 months Subjective Date/time seen: 02/12/24 09:11 Interval history: Ms. Brink is a 58 year old female with a history of COPD, chronic alcohol use, chronic smoking, anxiety, CHF who presented on 02/06/24 with unresponsiveness. While in the ER she had two seizures. She was loaded with Keppra and phenobarbital. After the second seizure, she was intubated for airway protection and started on Versed infusion. Patient had recently been seen at an outside hospital for Xanax withdrawal. Lab work was significant for hyponatremia of 120. She was started on IV antibiotics for possible sepsis and admitted to the ICU. Sedation was eventually weaned off and she was extubated. Currently admitted to the floors. No subsequent seizures. She is getting Keppra 500mg BID. CT head from this admission is unrevealing. She was admitted in December 2023 at [place] for alcohol abuse and benzodiazepine withdrawal. Review of Systems Review of Systems: All systems reviewed & are unremarkable except as noted in HPI and below Exam Const: General: comfortable and no acute distress Other: very thin HENMT: Mouth: Yes moist mucous membranes Eyes: Pupils: Equal, round and reactive pupils present EOM: EOMs intact bilaterally Resp: Effort & Inspection: normal respiratory effort Skin: General skin exam: normal color Neuro: Other: Awake, alert, oriented to self, place, month but not year. PERRL, EOMI, face symmetric, moves all extremities equally against gravity and resistance. Sensation appears to be symmetric, FNF without dysmetria. Speech is clear and fluent. Following directions appropriately. Psych: Affect: normal affect Objective Data Vital Signs Vital Signs: Vital Signs - 24 hr 02/11/24 11:13 02/11/24 11:37 02/11/24 13:55 Temperature 36.4 C L Pulse Rate 104 H Respiratory Rate 20 Blood Pressure 109/72 Pulse Oximetry 95 95 98 Oxygen Delivery Nasal Cannula Nasal Cannula Oxygen Flow Rate 2 2 02/11/24 14:30 02/11/24 14:31 02/11/24 14:32 Temperature Pulse Rate Respiratory Rate Blood Pressure Pulse Oximetry 87 L 90 92 Oxygen Delivery Room Air Nasal Cannula Nasal Cannula Oxygen Flow Rate 1 2 02/11/24 14:35 02/11/24 14:45 02/11/24 12:00 Temperature Pulse Rate 118 H 100 87 Respiratory Rate Blood Pressure Pulse Oximetry 94 94 Oxygen Delivery Nasal Cannula Nasal Cannula Oxygen Flow Rate 2 2 02/11/24 16:00 02/11/24 19:43 02/11/24 20:05 Temperature 36.8 C Pulse Rate 107 H 115 H Respiratory Rate 18 Blood Pressure 115/63 Pulse Oximetry 90 90 Oxygen Delivery Nasal Cannula Oxygen Flow Rate 2 02/11/24 20:03 02/12/24 00:01 02/12/24 04:03 Temperature Pulse Rate 109 H 87 85 Respiratory Rate Blood Pressure Pulse Oximetry Oxygen Delivery Oxygen Flow Rate 02/12/24 05:30 02/11/24 22:20 02/12/24 07:51 Temperature 36.6 C Pulse Rate 79 Respiratory Rate 18 Blood Pressure 132/83 Pulse Oximetry 100 93 98 Oxygen D
[2024-02-12] MEDS: guaiFENesin 12 HR 600 MG TABCR PO ×2 (09:25→20:06)
[2024-02-12] MEDS: PANTOPRAZOLE 40 MG TABLET PO (09:25)
[2024-02-12] MEDS: ALPRAZolam (*CRX) 0.5 MG TABLET PO ×3 (09:25→17:42)
[2024-02-12] MEDS: SODIUM CHLORIDE 1 GM TABLET PO ×2 (09:25→17:42)
[2024-02-12] MEDS: levETIRAcetam 500 MG TABLET PO ×2 (09:26→20:06)
[2024-02-12] MEDS: DOXYCYCLINE HYCLATE 100 MG TABLET FEED TUBE (09:31)
[2024-02-12] MEDS: busPIRone HCL 2.5 MG TABLET PO ×2 (09:31→20:06)
[2024-02-12] MEDS: DOXYCYCLINE HYCLATE 100 MG TABLET PO ×2 (09:33→20:06)
[2024-02-12] MEDS: CEFDINIR 300 MG CAPSULE PO ×2 (11:24→20:06)
[2024-02-12 12:23] LABS: Sodium 123 mmol/L (137-145)
--- NOTE | 2024-02-12 17:39 | PM.IMPN ---
Progress Note: A&P Assessment and Plan (1) Seizure: Code(s): R56.9 - Unspecified convulsions Status: Acute Assessment and Plan: Patient presented with unresponsiveness and had seizures x2. One in the ER, and the other [address] scan area when she was getting a head CT. Suspected secondary to benzodiazepine withdrawal -patient was loaded with Keppra 1000 mg IV x1 and started on Keppra 500 mg IV q.12 hours -patient was recently admitted to an outside hospital for similar issues which was attributed to benzodiazepine withdrawal. -Xanax resumed; continue her home Xanax -no seizures since admission. -patient seen by Neurology and MRI and EEG recommended and these were ordered. 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 Keppra changed to oral. May be able to stop if EEG okay. (2) Acute on chronic respiratory failure with hypoxia and hypercapnia: Code(s): J96.21 - Acute and chronic respiratory failure with hypoxia; J96.22 - Acute and chronic respiratory failure with hypercapnia Status: Acute Assessment and Plan: Patient was intubated on 02/06/2024 after her 2nd seizure as she was not protecting the airway due to unresponsive. -patient has advanced baseline COPD and has been intubated multiple times in the past -PCR for RSV influenza and COVID were negative -02/08 extubated and now on nasal cannula -incentive spirometry -chest x-ray showed infiltrate and Rocephin and doxycycline started -blood cultures are negative -continue course of abx -continue bronchodilators, -continue Trelegy Ellipta which is a home medication (3) Hyponatremia: Code(s): E87.1 - Hypo-osmolality and hyponatremia Status: Chronic Assessment and Plan: Hyponatremia with sodium levels of 120 on presentation -patient does have a history of chronic hyponatremia probably related to her lung disease -patient was recently admitted to [facility] from January 02 to January 11, 2024 for hyponatremia, benzodiazepine withdrawal -patient also has a history of alcohol abuse; start thiamine and folate -patient has NOT received any hypertonic saline as mention by the ER physician and the hospitalist note Etiology is multifactorial from alcohol use, Trintellix/SSRIs, hypovolemia, 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 Now sodium dropping again to 123. Eating 0-50% of meals. Continue regular diet. Supplements ordered Repeat urine studies. Nephrology managing at this time. Follow sodium values (4) End stage COPD: Code(s): J44.9 - Chronic obstructive pulmonary disease, unspecified Status: Chronic Assessment and Plan: End-stage COPD/emphysema, -will continue bronchodilators -continue home Trelegy Ellipta (5) Elevated lactic acid level: Code(s): R79.89 - Other specified abnormal findings of blood chemistry Status: Acute Assessment and Plan: Elevated lactic acid likely secondary to seizure activity, repeat lactic acid level has normalized (6) Hypokalemia: Code(s): E87.6 - Hypokalemia Status: Acute Assessment and Plan: Potassium and magnesium normal. Follow (7) Protein-calorie malnutrition, severe: Code(s): E43 - Unspecified severe protein-calorie malnutrition Status: Acute Assessment and Plan: Diet started. Nutritional supplements ordered as per dietitian recommendation (8) Septic shock: Code(s): A41.9 - Sepsis, unspecified organism; R65.21 - Severe sepsis with septic shock Status: Acute Assessment and Plan: Patient with hypotension, hypothermia, elevated lactic acid felt to have shock -could be related to septic, hypovolemia or related to w/d -patient received 1 L IV fluid bolus -lactic acid is normal now -Levophed requirement likely related to sedation and or infection. Maintain SBP > 100 mmHg for ad
[2024-02-12] MEDS: THIAMINE HCL 100 MG TABLET PO (18:05)
[2024-02-12 20:52] LABS: Sodium 129 mmol/L (137-145)
[2024-02-13 00:01] VITALS: PULSE 83
[2024-02-13 02:32] LABS: Sodium 128 mmol/L (137-145)
[2024-02-13 04:03] VITALS: PULSE 88
[2024-02-13 04:29] VITALS: BP 115/52; PULSE 89; RESP 18; TEMP 36.6; O2SAT 99
[2024-02-13] MEDS: ALBUTEROL SULFATE (*SP) AEROSOL 1 PUFF 2 PUFF INHALATION (05:31)
[2024-02-13 08:00] VITALS: PULSE 101; O2SAT 99
[2024-02-13 08:18] LABS: Basophils Percent Auto 0.3 % (0.2-1.2); Eosinophils Absolute Auto 0.2 K/mm3 (0-0.3); Eosinophils Percent Auto 3.8 % (0-4.4); Immature Granulocyte Absolute 0.02 K/mm3 (0.00-0.031); Immature Granulocyte Percent A 0.3 % (0-0.5); Lymphocytes Absolute Auto 0.69 K/mm3 (0.9-3.2); Lymphocytes Percent Auto 10.8 % (18.3-44.2); Mean Corpuscular HGB Conc 30.8 g/dl (32-36); Mean Corpuscular Volume 94.2 fl (80-100); Mean Platelet Volume 8.7 fl (7.4-10.4); Monocytes Absolute Auto 0.7 K/mm3 (0.1-0.6); Monocytes Percent Auto 10.8 % (2.6-8.5); Neutrophils Absolute Auto 4.7 K/mm3 (1.3-6.7); Platelet Count Result 292 k/mm3 (150-375); Red Blood Count 4.14 M/mm3 (4.2-5.4); Red Cell Distribution Width 13.7 % (11.5-14.5); White Blood Count 6.4 K/mm3 (4.5-10.0)
[2024-02-13] MEDS: FLUTICASONE/UMECLIDIN/VILANTER 100-62.5-25 MCG ELLIPTA 1 PUFF INHALATION (08:24)
[2024-02-13 08:25] VITALS: O2SAT 99
[2024-02-13 08:30] LABS: Alanine Aminotransferase 15 U/L (6-35); Albumin Level 3.5 g/dL (3.5-5.1); Alkaline Phosphatase 82 U/L (38-126); Anion Gap 1 mmol/L (4-12); Aspartate Amino Transferase 24 U/L (14-36); Bilirubin,Total 0.4 mg/dL (0.2-1.3); Blood Urea Nitrogen 5 mg/dL (7-17); Calcium 8.8 mg/dL (8.4-10.2); Carbon Dioxide 38 mmol/L (22-30); Chloride 89 mmol/L (98-107); Estimated Glomerular Filt Rate > 60; Glucose 115 mg/dL (65-110); Magnesium 1.5 mg/dL (1.6-2.3); Potassium 3.4 mmol/L (3.4-5.0); Sodium 128 mmol/L (137-145)
[2024-02-13] MEDS: CEFDINIR 300 MG CAPSULE PO (09:24)
[2024-02-13] MEDS: FOLIC ACID 1 MG TABLET PO (09:24)
[2024-02-13] MEDS: busPIRone HCL 2.5 MG TABLET PO ×2 (09:24→12:55)
[2024-02-13] MEDS: levETIRAcetam 500 MG TABLET PO (09:24)
[2024-02-13] MEDS: THIAMINE HCL 100 MG TABLET PO (09:24)
[2024-02-13] MEDS: DOXYCYCLINE HYCLATE 100 MG TABLET PO (09:24)
[2024-02-13] MEDS: PANTOPRAZOLE 40 MG TABLET PO (09:24)
[2024-02-13] MEDS: SODIUM CHLORIDE 1 GM TABLET PO (09:24)
[2024-02-13] MEDS: ALPRAZolam (*CRX) 0.5 MG TABLET PO ×2 (09:24→12:53)
[2024-02-13] MEDS: guaiFENesin 12 HR 600 MG TABCR PO (09:24)
[2024-02-13] MEDS: ENOXAPARIN 40 MG/0.4 ML SYRINGE SUB-Q (09:26)
[2024-02-13] MEDS: MAGNESIUM SULF 1 GM/D5W 100 ML 1 GM/100 ML BAG IVPB (13:36)
[2024-02-13 14:00] VITALS: BP 101/65; PULSE 87; RESP 26; TEMP 36.4; O2SAT 100
--- NOTE | 2024-02-13 14:05 | PM.DS ---
DS: Admitting Diagnosis Discharge Date 02/13/24 Admitting Diagnosis Seizure DS: Discharge Diagnosis Discharge Diagnosis (1) Seizure: Code(s): R56.9 - Unspecified convulsions Status: Acute (2) Acute on chronic respiratory failure with hypoxia and hypercapnia: Code(s): J96.21 - Acute and chronic respiratory failure with hypoxia; J96.22 - Acute and chronic respiratory failure with hypercapnia Status: Acute (3) Hyponatremia: Code(s): E87.1 - Hypo-osmolality and hyponatremia Status: Chronic (4) End stage COPD: Code(s): J44.9 - Chronic obstructive pulmonary disease, unspecified Status: Chronic (5) Elevated lactic acid level: Code(s): R79.89 - Other specified abnormal findings of blood chemistry Status: Acute (6) Hypokalemia: Code(s): E87.6 - Hypokalemia Status: Acute (7) Protein-calorie malnutrition, severe: Code(s): E43 - Unspecified severe protein-calorie malnutrition Status: Acute (8) Septic shock: Code(s): A41.9 - Sepsis, unspecified organism; R65.21 - Severe sepsis with septic shock Status: Acute (9) Anemia: Code(s): D64.9 - Anemia, unspecified Status: Resolved DS: Summary Hospital Course Reason for hospitalization: 58yo female with end-stage COPD, chronic respiratory failure and NICMP here for seizures. Hospital Course: Patient presented with unresponsiveness and had seizures x2.? One in the ER, and the other [address] scan area when she was getting a head CT.? Suspected secondary to benzodiazepine withdrawal. Patient was loaded with Keppra and started on scheduled Keppra. She was recently admitted to an outside hospital for similar issues which was attributed to benzodiazepine withdrawal. Xanax was resumed at home dose. No seizures since admission. Patient seen by Neurology and MRI and EEG recommended and these were ordered. 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 Keppra changed to oral. Neurology recommended continuing the Keppra at discharge. Patient was intubated on 02/06/2024 after her 2nd seizure as she was not protecting the airway due to unresponsive. CXR showed infiltrate and Rocephin and doxycycline started. Patient with shock with hypotension,? hypothermia, elevated lactic acid. Could be related to septic, hypovolemia and/or related to withdrawal. Levophed started and able to be weaned off. Patient has advanced baseline COPD and has been intubated multiple times in the past. PCR for RSV, influenza and COVID were negative. Able to be extubated 02/08 and weaned down to 2L. Hyponatremia with sodium levels of 120 on presentation. Patient does have a history of chronic hyponatremia probably related to her lung disease. Patient has NOT received any hypertonic saline as mention by the ER physician and the hospitalist note. 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 Sodium improved to 134 and IV fluids stopped. Sodium dropped again but leveled off at 128-129 range. We held her Trintellix/SSRI and started Buspar for anxiety. Spoke with Liam who said they refilled her Xanax on 02/09 and that the medication is in the home. She did well and was able to be discharged home on 02/13/24. Status at Discharge Cognitive/behavioral status at discharge: stable Time Spent with Patient Time attestation: Total time spent providing and/or coordinating discharge services: 35 minutes Time spent: Greater than 30 minutes Specific discharge activities: Spoke neurology. Spoke with 2 sons. Exam Narrative: AF 97.9 115/52 110 18 99% 2L Gen - NARD Chest - very distant BS with scattered expiratory wheeze. nml RR CV - RRR S1/S2. tele showing no significant dysrhythmias Abd - Soft, scaphoid, NT Ext - No pedal edema Psych - Nml mood and affect Skin - Warm and dry DS: Data Juarez
--- NOTE | 2024-02-16 10:45 | P.NEURO_ITS ---
Neurology EEG Report General Information Date of Study: 02/12/24 TEST eeg DIAGNOSIS Seizures CONDITION OF RECORDING awake and drowsy EEG NUMBER [id number] CLINICAL HISTORY patient has been here in hospital although weak. Had a seizure when 1st brought in but none since then. EEG DESCRIPTION Background rhythm consists of low-voltage 15 to 18 hertz per 2nd beta admixed with intermittent low-voltage 5 to 6 hertz per 2nd theta activity and with poor rosalinda posterior gradient. Multiple movement artifacts are noted throughout the tracing. Bilateral symmetrical sleep activity is noted with mixture of low- voltage beta alpha and theta activity. Hyperventilation not done. Photic stimulation not done. Non paroxysmal. Nonfocal. Nonlateralizing. IMPRESSION Mildly abnormal record due to the absence of the normal background rhythm posteriorly but without any seizure-like activity focal or generalized clinical correlation recommended. This EEG could be compatible with postictal state.
== END 2024-02-13 16:15 | disposition home or self-care (01) | DRG 871 ==
LOC: ANHED 03:56 → ANHICU 04:07 → ANH2MED 02-11 05:41
PROVIDERS: Internal Medicine; Internal Medicine Nephrology; Admitting Provider Internal Medicine; Emergency Provider Preventive Medicine Aerospace Medicine; PCP Family Medicine; Visit Provider Internal Medicine
DX: A41.9 Sepsis, unspecified organism (principal); E43 Unspecified severe protein-calorie malnutrition; J96.21 Acute and chronic respiratory failure with hypoxia; J96.22 Acute and chronic respiratory failure with hypercapnia; R65.21 Severe sepsis with septic shock; G93.41 Metabolic encephalopathy; E22.2 Syndrome of inappropriate secretion of antidiuretic hormone; Z68.1 Body mass index [BMI] 19.9 or less, adult; I42.8 Other cardiomyopathies; F13.939 Sedative, hypnotic or anxiolytic use, unspecified with withdrawal, unspecified; D51.9 Vitamin B12 deficiency anemia, unspecified; D64.9 Anemia, unspecified; E55.9 Vitamin D deficiency, unspecified; E87.6 Hypokalemia; F41.1 Generalized anxiety disorder; F10.20 Alcohol dependence, uncomplicated; F12.90 Cannabis use, unspecified, uncomplicated; I48.91 Unspecified atrial fibrillation; I95.89 Other hypotension; J43.9 Emphysema, unspecified; K21.9 Gastro-esophageal reflux disease without esophagitis; R56.9 Unspecified convulsions; Z86.73 Personal history of transient ischemic attack (TIA), and cerebral infarction without residual deficits; Z20.822 Contact with and (suspected) exposure to COVID-19; Z86.16 Personal history of COVID-19; Z87.891 Personal history of nicotine dependence; Z99.81 Dependence on supplemental oxygen; Z79.899 Other long term (current) drug therapy
CPT/HCPCS: 31500; 36415; 36430; 36556; 36600; 70450; 70553; 71045; 80048; 80053; 80202; 80307; 81001; 82375; 82550; 82570; 82805; 82948; 83050; 83605; 83690; 83735; 83930; 83935; 84100; 84156; 84295; 84300; 84443; 85014; 85018; 85025; 85027; 85610; 85730; 86140; 86850; 86900; 86901; 86923; 87040; 87637; 87641; 93005; 94002; 94003; 94640; 95816; 96361; 96365; 96375; 99291; A9270; A9577; C1751; C9113; G0378; J0692; J0696; J1200; J1650; J1953; J2060; J2250; J2560; J3010; J3370; J3475; J3480; J7030; J7050; J7060; P9016

== ENCOUNTER 2024-02-26 05:41 | Emergency (ER) | payer MEDICARE, MEDICAID, SELFPAY ==
[2024-02-26] VITALS (8 sets, daily range): BP systolic 97–112; BP diastolic 58–77; PULSE 78–98; RESP 18–22; TEMP 36.6; O2SAT 100
--- NOTE | ~2024-02-26 | XR_ITS ---
Portable chest x-ray Comparison: 02/11/2024 Clinical History: Shortness of breath Findings: There is COPD and probable chronic blunting of left costophrenic angle. Postsurgical hurley es noted in the bilateral upper lobe regions. Cardiomediastinal silhouette is stable. Bones and soft tissues are unremarkable. Impression: No acute abnormality evident. COPD with chronic blunting left costophrenic angle and bilateral upper lobe postoperative changes. Reviewed, dictated and finalized at location . Impression: No acute abnormality evident. COPD with chronic blunting left costophrenic angle and bilateral upper lobe pos toperative changes.
--- NOTE | 2024-02-26 05:44 | ECG_ITS ---
SEE SCANNED COPY FOR CONFIRMED REPORT MTDD
--- NOTE | 2024-02-26 05:45 | ED.GENADULT ---
HPI - General Adult General Chief complaint: Anxiety <Issa Ramos MD - Last Filed: 02/26/24 07:07> Stated complaint: ANXIETY S/P WAKING UP W/O OXYGEN ON <Issa Ramos MD - Last Filed: 02/26/24 07:07> Time Seen by Provider: 02/26/24 05:44 <Issa Ramos MD - Last Filed: 02/26/24 07:07> Source: patient and EMS <Issa Ramos MD - Last Filed: 02/26/24 07:07> Mode of arrival: EMS <Issa Ramos MD - Last Filed: 02/26/24 07:07> Limitations: no limitations <Issa Ramos MD - Last Filed: 02/26/24 07:07> History of Present Illness HPI narrative: 58-year-old female presenting from home for concern for anxiety reaction. She woke up after finding her oxygen was no longer on her nose and it made her extremely anxious cm feel like she was going to have a heart attack. She did not have any chest pain and says that she is not feeling short of breath since putting the oxygen back on both concerned about having a heart attack. Patient has a recent possible stroke versus seizure here and is chronically oriented x2. Has a long history of COPD is on 4 L home oxygen. <Issa Ramos MD - Last Filed: 02/26/24 07:07> Related Data Home medications: Home Medications Medication Instructions Recorded Confirmed fluticasone fur. 100 mcg-umeclid 1 inh inhalation DAILY 08/19/23 02/06/24 62.5 mcg-vilant 25 mcg inhalat.powder (Trelegy Ellipta) fluoxetine 40 mg capsule 40 mg PO DAILY 10/23/23 02/06/24 levalbuterol HCl 1.25 mg/3 mL 1.25 mg inhalation Q6H PRN Severe 10/23/23 02/06/24 solution for nebulization Emphysema vortioxetine 10 mg tablet 10 mg PO DAILY 10/23/23 02/06/24 (Trintellix) <Issa Ramos MD - Last Filed: 02/26/24 07:07> Allergies/adverse reactions: Allergies Allergy/AdvReac Type Severity Reaction Status Date / Time clindamycin Allergy Unknown anaphylactic Verified 02/06/24 00:56 reaction, rash <Issa Ramos MD - Last Filed: 02/26/24 07:07> Review of Systems Review of Systems: All systems reviewed & are unremarkable except as noted in HPI and below <Issa Ramos MD - Last Filed: 02/26/24 07:07> [facility] Past Medical History Medical History: Medical History Abnormal EKG EKG has previously shown ST elevation which appears to be early repolarization. Alcohol abuse Anxiety Asthma B12 deficiency anemia Chronic anemia Chronic hyponatremia Chronic respiratory failure with hypoxia and hypercapnia On Trelegy unit at nighttime. However the patient is noncompliant 3 L nasal cannula during the day. Closed traumatic nondisplaced fracture of proximal end of right humerus Cognitive impairment COPD with emphysema COVID-19 (~11/2022) Fracture of distal phalanx of ring finger Gastroesophageal reflux disease Generalized anxiety disorder with panic attacks Osteoporosis Protein-calorie malnutrition, severe Pulmonary cachexia due to chronic obstructive pulmonary disease Right hand fracture Secondary nonischemic congestive cardiomyopathy With ejection fraction of 40-45%, diastolic dysfunction grade 1, mid inferior wall, mid anterior wall, mid in for septal wall mid anterior lateral wall, basal apical septum and mid inferior wall hypokinesis on echocardiogram 03/2022 Spontaneous pneumothorax (08/2012) Several pneumothoraces status post VATS procedure and apical blebectomy as well as pleurodesis. Tobacco abuse Quit in 2020 per patient report. Vitamin D deficiency <Issa Ramos MD - Last Filed: 02/26/24 07:07> Surgical History Surgical History: Surgical History History of bilateral tubal ligation History of section History of hip surgery (07/2019) ORIF of right femur fracture. History of tonsillectomy Status post thoracotomy Left-sided VATS procedure and apical b
[2024-02-26 07:21] LABS: Basophils Absolute Auto 0.1 K/mm3 (0.0-0.1); Basophils Percent Auto 0.9 % (0.2-1.2); Eosinophils Absolute Auto 0.1 K/mm3 (0-0.3); Eosinophils Percent Auto 1.2 % (0-4.4); Hematocrit 37.7 % (37.0-47.0); Hemoglobin 11.5 g/dL (12.0-15.0); Immature Granulocyte Absolute 0.01 K/mm3 (0.00-0.031); Immature Granulocyte Percent A 0.2 % (0-0.5); Lymphocytes Absolute Auto 0.66 K/mm3 (0.9-3.2); Lymphocytes Percent Auto 11.5 % (18.3-44.2); Mean Corpuscular HGB Conc 30.5 g/dl (32-36); Mean Corpuscular Hemoglobin 29.1 pg (26-34); Mean Corpuscular Volume 95.4 fl (80-100); Mean Platelet Volume 9.1 fl (7.4-10.4); Monocytes Absolute Auto 0.5 K/mm3 (0.1-0.6); Monocytes Percent Auto 8.7 % (2.6-8.5); Neutrophils Absolute Auto 4.4 K/mm3 (1.3-6.7); Neutrophils Percent Auto 77.5 % (45.5-73.1); Platelet Count Result 245 k/mm3 (150-375); Red Blood Count 3.95 M/mm3 (4.2-5.4); Red Cell Distribution Width 13.6 % (11.5-14.5); White Blood Count 5.7 K/mm3 (4.5-10.0)
[2024-02-26 07:42] LABS: Troponin I < 0.012 ng/mL (0.000-0.034)
[2024-02-26 07:43] LABS: Alanine Aminotransferase 18 U/L (6-35); Albumin Level 3.9 g/dL (3.5-5.1); Alkaline Phosphatase 108 U/L (38-126); Aspartate Amino Transferase 31 U/L (14-36); Bilirubin,Total 0.5 mg/dL (0.2-1.3); Blood Urea Nitrogen 13 mg/dL (7-17); Calcium 9.1 mg/dL (8.4-10.2); Carbon Dioxide > 40 mmol/L (22-30); Chloride 77 mmol/L (98-107); Estimated Glomerular Filt Rate > 60; Glucose 105 mg/dL (65-110); Potassium 4.4 mmol/L (3.4-5.0); Sodium 125 mmol/L (137-145)
--- NOTE | 2024-02-26 09:36 | PC.NURSE ---
Attempted to call 3 contacts in chart with no answers for discharge.
--- NOTE | 2024-02-26 09:40 | PC.NURSE ---
Message left for POA.
== END 2024-02-26 11:20 | disposition home or self-care (01) ==
PROVIDERS: Emergency Medicine; Emergency Provider Preventive Medicine Aerospace Medicine; PCP Family Medicine
DX: F41.9 Anxiety disorder, unspecified (principal); J44.9 Chronic obstructive pulmonary disease, unspecified; E87.1 Hypo-osmolality and hyponatremia; J43.9 Emphysema, unspecified; J96.11 Chronic respiratory failure with hypoxia; J96.12 Chronic respiratory failure with hypercapnia; Z99.81 Dependence on supplemental oxygen; D51.9 Vitamin B12 deficiency anemia, unspecified; Z86.16 Personal history of COVID-19; K21.9 Gastro-esophageal reflux disease without esophagitis; M81.0 Age-related osteoporosis without current pathological fracture; I42.0 Dilated cardiomyopathy; E55.9 Vitamin D deficiency, unspecified; Z87.891 Personal history of nicotine dependence; I49.1 Atrial premature depolarization; R94.31 Abnormal electrocardiogram [ECG] [EKG]
CPT/HCPCS: 36415; 71045; 80053; 84484; 85025; 93005; 99284

== ENCOUNTER 2024-03-08 06:56 | Emergency (ER) | payer MEDICARE, MEDICAID, SELFPAY ==
[2024-03-08] VITALS (12 sets, daily range): BP systolic 91–115; BP diastolic 64–78; PULSE 100–115; RESP 16–24; TEMP 36.6; O2SAT 98–100
--- NOTE | ~2024-03-08 | XR_ITS ---
XR chest 1V portable DATE: 03/08/2024 08:02 INDICATION: Shortness of breath TECHNIQUE: Portable AP chest on 03/08/2024 at 0755 hours COMPARISON: 02/26/2024 portable AP chest FINDINGS: There is increased density overlying the middle third of the right lung field, of uncertain if any significance. This might be artifactual or there may be infiltrate or atelectasis in the righ t midlung. Consider CT thorax for more definitive evaluation as clinically appropriate. The lungs otherwise appear clear of infiltrate or consolidation. There is bilateral hyperinflation co nsistent with COPD. Postoperative changes are noted in both upper lung montoya. Heart size appears within normal range. No hilar or mediastinal enlargement is evident. Diffuse osteopenia. Thoracic levoscoliosis. IMPRESSION: Increased density overlying right midlung field; artifact versus right mid lung infiltrat e or atelectasis COPD Postoperative change of the upper lungs Osteopenia Reviewed, dictated and finalized at location B. IMPRESSION: Increased density overlying right midlung field; artifact versus ri ght mid lung infiltrate or atelectasis COPD Postoperative change of the upper lungs Osteopenia
--- NOTE | 2024-03-08 07:03 | ECG_ITS ---
SEE SCANNED COPY FOR CONFIRMED REPORT MTDD
--- NOTE | 2024-03-08 07:17 | PC.NURSE ---
bssr given to cat rn at this time. pt resting comfortably in bed. call light within reach.
[2024-03-08] MEDS: IPRATROPIUM BR 0.02% INH SOLN 0.5 MG/2.5 ML VIAL 1 MG INHALATION (07:33)
[2024-03-08] MEDS: ALBUTEROL SULFATE NEB 2.5 MG/3 ML INH 15 MG INHALATION (07:33)
--- NOTE | 2024-03-08 07:43 | ED.ANXIETY ---
HPI - Anxiety General Chief Complaint: Anxiety Stated Complaint: anxiety Time Seen by Provider: 03/08/24 07:04 History of Present Illness HPI narrative: Patient feels like she is having trouble catching her breath, she did use a breathing treatment prior to arrival here. She is on oxygen at home at baseline for COPD. Started today. Related Data Home Medications Medication Instructions Recorded Confirmed fluticasone fur. 100 mcg-umeclid 1 inh inhalation DAILY 08/19/23 02/06/24 62.5 mcg-vilant 25 mcg inhalat.powder (Trelegy Ellipta) fluoxetine 40 mg capsule 40 mg PO DAILY 10/23/23 02/06/24 levalbuterol HCl 1.25 mg/3 mL 1.25 mg inhalation Q6H PRN Severe 10/23/23 02/06/24 solution for nebulization Emphysema vortioxetine 10 mg tablet 10 mg PO DAILY 10/23/23 02/06/24 (Trintellix) Allergies Allergy/AdvReac Type Severity Reaction Status Date / Time clindamycin Allergy Unknown anaphylactic Verified 03/08/24 07:09 reaction, rash Review of Systems Review of Systems: All systems reviewed & are unremarkable except as noted in HPI and below PMFSH Past Medical History Medical History Abnormal EKG EKG has previously shown ST elevation which appears to be early repolarization. Alcohol abuse Anxiety Asthma B12 deficiency anemia Chronic anemia Chronic hyponatremia Chronic respiratory failure with hypoxia and hypercapnia On Trelegy unit at nighttime. However the patient is noncompliant 3 L nasal cannula during the day. Closed traumatic nondisplaced fracture of proximal end of right humerus Cognitive impairment COPD with emphysema COVID-19 (~11/2022) Fracture of distal phalanx of ring finger Gastroesophageal reflux disease Generalized anxiety disorder with panic attacks Osteoporosis Protein-calorie malnutrition, severe Pulmonary cachexia due to chronic obstructive pulmonary disease Right hand fracture Secondary nonischemic congestive cardiomyopathy With ejection fraction of 40-45%, diastolic dysfunction grade 1, mid inferior wall, mid anterior wall, mid in for septal wall mid anterior lateral wall, basal apical septum and mid inferior wall hypokinesis on echocardiogram 03/2022 Spontaneous pneumothorax (08/2012) Several pneumothoraces status post VATS procedure and apical blebectomy as well as pleurodesis. Tobacco abuse Quit in 2019 per patient report. Vitamin D deficiency Surgical History Surgical History History of bilateral tubal ligation History of section History of hip surgery (07/2019) ORIF of right femur fracture. History of tonsillectomy Status post thoracotomy Left-sided VATS procedure and apical bleb resection with pleurodesis. Family History Family History Father Acute myocardial infarction Mother Chronic obstructive pulmonary disease Social History Social History Social History: The patient had 3 sons but one from drug overdose. Patient is an alcoholic. Denies recent alcoholor tobacco use. No drug use. She lives with her son and ex-. Code status: Not sure - she wants me to contact family POA: Lino Herrera Smoking packs per day: 1 Smoking cigarettes per day: 20.0 Years smoked: 40 Smoking pack-years: 40.00 Smoking status: Former smoker Tobacco type: cigarettes Second hand tobacco smoke exposure: No Smoking end date: 12/02/19 Alcohol intake: current Drinks per week: 5 Alcohol use details: Heavier drinker in the past. Substance use: never Substance use type: marijuana Do You Feel Safe in your Home?: Yes Lack of Transportation: No Lack of Food: Never True Current Housing: I Have Housing Concerned About Future Housing: No Difficulty Paying Gas/Electric Bills: No Difficulty Paying for Me
[2024-03-08] MEDS: predniSONE 20 MG TABLET 40 MG PO (07:44)
[2024-03-08] MEDS: LORazepam (*CRX) 0.5 MG TABLET PO (08:10)
[2024-03-08] MEDS: AMOXICILLIN/CLAVULANATE K 875-125 MG TAB 1 TABLET PO (08:58)
[2024-03-08] MEDS: AZITHROMYCIN 250 MG TABLET 500 MG PO (08:58)
--- NOTE | 2024-03-08 09:10 | PC.NURSE ---
Message left for ex Neo to pick pt up per pt's request.
--- NOTE | 2024-03-08 09:29 | PC.NURSE ---
MESSAGE LEFT WITH JOE HER SON FOR HELP WITH TRANSPORTATION
--- NOTE | 2024-03-08 10:27 | PC.NURSE ---
SPOKE WITH GIRISH AT [phone] WHO IS PT'S EX . HE IS STILL STAYING WITH HER INTERMITTENTLY TO HELP SON WITH CARE FOR HER. HE AND THE SON ARE CURRENTLY AT WORK AND ARE UNABLE TO LEAVE TO BE WITH HER OR TAKE HER BACK HOME. HE REPORTS THAT SHE HAS SEVERE ANXIETY AND ADDICTION TO XANAX. HE STATES SHE IS OUT OF XANAX AND WHEN SHE GETS HOME SHE WILL JUST COME BACK INTO AN ED FOR HER ANXIETY. NOT DUE FOR REFILL UNTIL 03/11 HE IS ASKING FOR HELP FOR HOME HEALTH OR PLACEMENT FOR CARE BECAUSE THE FAMILY IS OVERWHELMED WITH CARING FOR HER. CARE CORDINATION CONTACTED AND TAMARA WILL BE DOWN TO EVALUATE PT AND DETERMINE PLAN
--- NOTE | 2024-03-08 11:22 | PCCCNOTE ---
1030: CC called to the ED for placement of this pt. She is unable to care for herself and disburse her medications properly. She is willing to go into a SNF, she prefers to stay in or near [place]. 1040: Call placed to Neo, pt's ex-, per pt request to discuss placement vs home health. He thinks she would benefit from 24 hour care. He and their son, Liam, live at the same residence, and both help provide her care. 1125: Faxed referrals to [facility] and [facility], awaiting their call.
--- NOTE | 2024-03-08 13:50 | PCCCNOTE ---
[facility] is accepting the pt. PASRR completed, Neo notified. Pt will transport via ambulance too [facility].
--- NOTE | 2024-03-08 14:00 | PC.NURSE ---
[address] FOR SCAN WITH RT AND THIS RN FOR IMAGING. [address] BECAME VERY ANXIOUS AND DYSPNEIC. SATS REMAINED 100% DR BRITO CALLED TO BEDSIDE. .1356 0.5 EPI GIVEN IM TO L DELTOID. 1357 2.5MG VERSED GIVEN IVP. 1402 PT NOW CALMER NOW ON NON REBREATHER AT 15L.
== END 2024-03-08 15:00 ==
PROVIDERS: Emergency Provider Emergency Medicine; PCP Family Medicine
DX: J44.1 Chronic obstructive pulmonary disease with (acute) exacerbation (principal); F41.9 Anxiety disorder, unspecified; J96.10 Chronic respiratory failure, unspecified whether with hypoxia or hypercapnia; Z99.81 Dependence on supplemental oxygen; K21.9 Gastro-esophageal reflux disease without esophagitis; E55.9 Vitamin D deficiency, unspecified; Z87.891 Personal history of nicotine dependence
CPT/HCPCS: 71045; 93005; 94640; 99283; A9270; J7512

== ENCOUNTER 2024-03-21 05:10 | Inpatient (IN) | payer MEDICARE, MEDICAID, SELFPAY ==
[2024-03-21] VITALS (31 sets, daily range): BP systolic 110–138; BP diastolic 53–72; PULSE 91–112; RESP 15–28; TEMP 36.3–36.7; O2SAT 93–100; BMI 11.7; BMI 11.5
--- NOTE | ~2024-03-21 | XR_ITS ---
Portable chest x-ray Comparison: 03/08/2024 Clinical History: Shortness of breath Findings: No definite acute abnormality seen. Bilateral upper lobe suture lines are noted with under lying COPD pattern. Cardiomediastinal silhouette is stable. Bones and soft tissues are unremarkable. Impression: Chronic COPD and probable postoperative changes of the bilateral upper lobes. No definite acute pulmonary abnormality seen. Reviewed, dictated and finalized at location . Impression: Chronic COPD and probable postoperative changes of the bilateral upper lobes. No definite acute pulmonary abnormality seen.
--- NOTE | 2024-03-21 05:15 | ECG_ITS ---
[facility] [address] Test Date: 2024-03-21 Pat Name: Esther Brink Department: Room: Gender: F [employer] Work[employer]: : 1965 Requested By: Uche Freeman Order Number: [id number] Estefani MD: Issa Ramos M.D. Measurements Intervals [place] Rate: 95 P: 89 AR: 149 QRS: 61 QRSD: 86 T: 85 QT: 360 QTc: 453 Interpretive Statements SINUS RHYTHM POSSIBLE RIGHT ATRIAL ENLARGEMENT [0.25mV P WAVE] NONSPECIFIC T-WAVE ABNORMALITY ABNORMAL ECG No previous ECG available for comparison Electronically Signed On 03-21-2024 07:36:24 CDT by Issa Ramos M.D.
[2024-03-21 05:30] LABS: Basophils Percent Auto 0.4 % (0.2-1.2); Eosinophils Absolute Auto 0.1 K/mm3 (0-0.3); Eosinophils Percent Auto 1.8 % (0-4.4); Hematocrit 33.1 % (37.0-47.0); Hemoglobin 10.5 g/dL (12.0-15.0); Immature Granulocyte Absolute 0.02 K/mm3 (0.00-0.031); Immature Granulocyte Percent A 0.4 % (0-0.5); Lymphocytes Absolute Auto 0.58 K/mm3 (0.9-3.2); Lymphocytes Percent Auto 12.9 % (18.3-44.2); Mean Corpuscular HGB Conc 31.7 g/dl (32-36); Mean Corpuscular Hemoglobin 30.3 pg (26-34); Mean Corpuscular Volume 95.4 fl (80-100); Mean Platelet Volume 8.3 fl (7.4-10.4); Monocytes Absolute Auto 0.5 K/mm3 (0.1-0.6); Monocytes Percent Auto 11.6 % (2.6-8.5); Neutrophils Absolute Auto 3.3 K/mm3 (1.3-6.7); Neutrophils Percent Auto 72.9 % (45.5-73.1); Platelet Count Result 199 k/mm3 (150-375); Red Blood Count 3.47 M/mm3 (4.2-5.4); Red Cell Distribution Width 14.8 % (11.5-14.5); White Blood Count 4.5 K/mm3 (4.5-10.0)
[2024-03-21] MEDS: methylPREDNISolone SOD SUCC 125 MG VIAL IV PUSH (05:31)
--- NOTE | 2024-03-21 05:34 | ED.GENADULT ---
HPI - General Adult General Chief complaint: Shortness of Breath/Dyspnea Stated complaint: Short of breath Time Seen by Provider: 03/21/24 05:15 Related Data Home Medications Medication Instructions Recorded Confirmed fluticasone fur. 100 mcg-umeclid 1 inh inhalation DAILY 08/19/23 02/06/24 62.5 mcg-vilant 25 mcg inhalat.powder (Trelegy Ellipta) fluoxetine 40 mg capsule 40 mg PO DAILY 10/23/23 02/06/24 levalbuterol HCl 1.25 mg/3 mL 1.25 mg inhalation Q6H PRN Severe 10/23/23 02/06/24 solution for nebulization Emphysema vortioxetine 10 mg tablet 10 mg PO DAILY 10/23/23 02/06/24 (Trintellix) Allergies Allergy/AdvReac Type Severity Reaction Status Date / Time clindamycin Allergy Unknown anaphylactic Verified 03/08/24 07:09 reaction, rash PMFSH Past Medical History Medical History Abnormal EKG EKG has previously shown ST elevation which appears to be early repolarization. Alcohol abuse Anxiety Asthma B12 deficiency anemia Chronic anemia Chronic hyponatremia Chronic respiratory failure with hypoxia and hypercapnia On Trelegy unit at nighttime. However the patient is noncompliant 3 L nasal cannula during the day. Closed traumatic nondisplaced fracture of proximal end of right humerus Cognitive impairment COPD with emphysema COVID-19 (~11/2022) Fracture of distal phalanx of ring finger Gastroesophageal reflux disease Generalized anxiety disorder with panic attacks Osteoporosis Protein-calorie malnutrition, severe Pulmonary cachexia due to chronic obstructive pulmonary disease Right hand fracture Secondary nonischemic congestive cardiomyopathy With ejection fraction of 40-45%, diastolic dysfunction grade 1, mid inferior wall, mid anterior wall, mid in for septal wall mid anterior lateral wall, basal apical septum and mid inferior wall hypokinesis on echocardiogram 03/2022 Spontaneous pneumothorax (08/2012) Several pneumothoraces status post VATS procedure and apical blebectomy as well as pleurodesis. Tobacco abuse Quit in 2019 per patient report. Vitamin D deficiency Surgical History Surgical History History of bilateral tubal ligation History of section History of hip surgery (07/2019) ORIF of right femur fracture. History of tonsillectomy Status post thoracotomy Left-sided VATS procedure and apical bleb resection with pleurodesis. Family History Family History Father Acute myocardial infarction Mother Chronic obstructive pulmonary disease Social History Social History Social History: The patient had 3 sons but one from drug overdose. Patient is an alcoholic. Denies recent alcoholor tobacco use. No drug use. She lives with her son and ex-. Code status: Not sure - she wants me to contact family POA: Lino Herrera Smoking packs per day: 1 Smoking cigarettes per day: 20.0 Years smoked: 40 Smoking pack-years: 40.00 Smoking status: Former smoker Tobacco type: cigarettes Second hand tobacco smoke exposure: No Smoking end date: 12/02/19 Alcohol intake: current Drinks per week: 5 Alcohol use details: Heavier drinker in the past. Substance use: never Substance use type: marijuana Do You Feel Safe in your Home?: Yes Lack of Transportation: No Lack of Food: Never True Current Housing: I Have Housing Concerned About Future Housing: No Difficulty Paying Gas/Electric Bills: No Difficulty Paying for Meds: No Currently Unemployed: No Education: High School Diploma/GED Difficulty w/ Childcare or Family Care: No Living arrangements: with family Additional living arrangements comments: Lives with son in [place]. Additional occupation/education comments: Disabled. Spiritual care concern
[2024-03-21] MEDS: IPRATROPIUM 0.5 MG/ALBUTEROL SULFATE 2.5 MG AMPUL.NEB 3 ML INHALATION ×2 (05:43→20:04)
[2024-03-21 05:49] LABS: Alanine Aminotransferase 15 U/L (6-35); Albumin Level 3.6 g/dL (3.5-5.1); Alkaline Phosphatase 100 U/L (38-126); Aspartate Amino Transferase 38 U/L (14-36); Bilirubin,Total 0.4 mg/dL (0.2-1.3); Blood Urea Nitrogen 5 mg/dL (7-17); Calcium 8.2 mg/dL (8.4-10.2); Carbon Dioxide > 40 mmol/L (22-30); Chloride 72 mmol/L (98-107); Estimated Glomerular Filt Rate > 60; Glucose 86 mg/dL (65-110); Magnesium 1.5 mg/dL (1.6-2.3); Potassium 3.2 mmol/L (3.4-5.0); Sodium 120 mmol/L (137-145)
[2024-03-21 05:52] LABS: Troponin I 0.012 ng/mL (0.000-0.034)
[2024-03-21 06:06] LABS: Influenza A QL RT-PCR Negative (Negative); Influenza B QL RT-PCR Negative (Negative); RSV RNA, RT-PCR Negative (Negative); SARS-CoV-2 RNA PCR Negative (Negative)
[2024-03-21 06:10] LABS: Magnesium 1.5 mg/dL (1.6-2.3)
[2024-03-21] MEDS: SODIUM CHLORIDE 0.9% IV 1,000 ML 150 ML IV CONT (06:21)
[2024-03-21] MEDS: MAGNESIUM SULF 1 GM/D5W 100 ML 1 GM/100 ML BAG IVPB (06:21)
[2024-03-21] MEDS: POTASSIUM CHLORIDE 20 MEQ PACKET (FOR LIQUID) 40 MEQ PO (07:30)
--- NOTE | 2024-03-21 08:45 | ADMGEN ---
This patient, Esther Brink, was admitted to [facility] Surg Room 307-02. Patient/family oriented to hospital policies and general routines including ID bracelet, bed and alarms, visiting hours, pain management, procedures, bathroom and other care routines, personal items, smoking policy, room service/diet, and visiting hours. Information on how to activate the Rapid Response Team has been discussed. Patient/Family are encouraged to report perceived risks to care and to ask questions if they do not understand what they are told or what they should do.
[2024-03-21 10:36] LABS: Blood Urea Nitrogen 3 mg/dL (7-17); Carbon Dioxide > 40 mmol/L (22-30); Chloride 78 mmol/L (98-107); Estimated CRCL calculation 69 ml/min; Estimated Glomerular Filt Rate > 60; Glucose 178 mg/dL (65-110); Potassium 4.8 mmol/L (3.4-5.0); Sodium 120 mmol/L (137-145)
--- NOTE | 2024-03-21 10:59 | PM.IMHP ---
H&P: HPI History of Present Illness Date/Time: 03/21/24 10:59 Chief Complaint: Shortness of breath Narrative: Patient is a 58-year-old female who presents to the emergency department this morning of from nursing facility due to shortness of breath. Patient admits that she does have a history of COPD and states that this feels similar to her COPD exacerbation. Patient was administered a DuoNeb breathing treatment by EMS prior to arrival. She does wear 4 L of nasal cannula around the clock and patient is currently satting 100% on her home 4 L. She denies any chest pain, any nausea or vomiting, any abdominal pain, dysuria or hematuria, constipation, diarrhea, melena, hematochezia, fevers or chills. No additional symptoms or concerns at this time. Patient received DuoNeb treatment and Solu-Medrol 125 any ER EKG showed sinus rhythm rate of 95 beats per minute. Laboratory evaluation revealed sodium 120 potassium 3.2 creatinine 0.3 mild anemia 10.5 magnesium was 1.5. Received potassium and magnesium supplementation in the ER. Breathing was improved with treatment. Nephrology has been consulted. Normal saline has been started at 150 cc an hour. Review of Systems Review of Systems: - CONSTITUTIONAL: Denies weight loss, fever and chills. - HEENT: Denies changes in vision and hearing - RESPIRATORY: Reports SOB and cough. - CV: Denies palpitations and CP. - GI: Denies abdominal pain, nausea, vomiting and diarrhea. - : Denies dysuria and urinary frequency. - MSK: Denies myalgia and joint pain. - SKIN: Denies rash and pruritus. - NEUROLOGICAL: Denies headache and syncope. - PSYCHIATRIC: Denies recent changes in mood. Denies anxiety and depression. [facility] Past Medical History Medical History Abnormal EKG EKG has previously shown ST elevation which appears to be early repolarization. Alcohol abuse Anxiety Asthma B12 deficiency anemia Chronic anemia Chronic hyponatremia Chronic respiratory failure with hypoxia and hypercapnia On Trelegy unit at nighttime. However the patient is noncompliant 3 L nasal cannula during the day. Closed traumatic nondisplaced fracture of proximal end of right humerus Cognitive impairment COPD with emphysema COVID-19 (~11/2022) Fracture of distal phalanx of ring finger Gastroesophageal reflux disease Generalized anxiety disorder with panic attacks Osteoporosis Protein-calorie malnutrition, severe Pulmonary cachexia due to chronic obstructive pulmonary disease Right hand fracture Secondary nonischemic congestive cardiomyopathy With ejection fraction of 40-45%, diastolic dysfunction grade 1, mid inferior wall, mid anterior wall, mid in for septal wall mid anterior lateral wall, basal apical septum and mid inferior wall hypokinesis on echocardiogram 03/2022 Spontaneous pneumothorax (08/2012) Several pneumothoraces status post VATS procedure and apical blebectomy as well as pleurodesis. Tobacco abuse Quit in 2019 per patient report. Vitamin D deficiency Surgical History Surgical History History of bilateral tubal ligation History of section History of hip surgery (07/2019) ORIF of right femur fracture. History of tonsillectomy Status post thoracotomy Left-sided VATS procedure and apical bleb resection with pleurodesis. Family History Family History Father Acute myocardial infarction Mother Chronic obstructive pulmonary disease Social History Social History Social History: The patient had 3 sons but one from drug overdose. Patient is an alcoholic. Denies recent alcoholor tobacco use. No drug use. She lives with her son and ex-. Code status: Not sure - she wants me to contact family POA: Lino Herrera Smoking packs per
--- NOTE | 2024-03-21 11:00 | PM.CNNEP ---
Assessment and Plan Assessment and plan (1) Hyponatremia: Code(s): E87.1 - Hypo-osmolality and hyponatremia Status: Chronic Assessment and Plan: recurrent/chronic issue best sodiums to date run 132 - 135mmol/L; however, has been as low as 117mmol/L in the past seems to average out to mid 120s range in general on normal saline IVFs currently etiology for hyponatremia (based on previous evaluation) long standing lung disease (COPD + chronic respiratory failure) prerenal factors (diminished oral intake) alcohol use SSRI use distant history of CHF TSH, cortisol, and SPEP/UPEP okay by previous testing initiated on fluid restriction suspect will eventually need salt tabs and lasix once again follow repeat sodium levels (2) End stage COPD: Code(s): J44.9 - Chronic obstructive pulmonary disease, unspecified Status: Chronic Assessment and Plan: non-compliant with previous interventions/therapy in the past on nebulizer treatments and steroids on baseline home oxygen follow respiratory status (3) Failure to thrive: Status: Acute Assessment and Plan: long standing issue as noted on previous hospitalizations not sure what else can be done give previous attempts at intervention have failed no interested in palliative care (as noted on previous hospitalizations) I will continue follow the patient with you while she remains hospitalized and make further recommendations as deemed necessary. Thank you for allowing me to participate in care of this patient. History of Present Illness Reason for Consult Consult date: 03/21/24 Reason for consult: hyponatremia (acute on chronic) Chief Complaint Chief complaint: COPD Exacerbation/Hyponatremia History of Present Illness Narrative: The patient is a 58-year-old female with a past medical history as outlined below who presented to [facility] Emergency Room earlier this morning from her nursing facility due to complaints of shortness of breath. The patient has chronic respiratory failure secondary to her end-stage COPD and is chronically on 4 L of oxygen by nasal cannula all the time. When the shortness of breath started earlier this morning, she felt that the symptoms were similar to her previous episodes of COPD exacerbations. She reported improvement in her symptoms with a nebulizer treatment given by EMS prior to her arrival to the emergency room. It was reported that her oxygen saturations were at 100% on her baseline 4 L of oxygen by EMS. She reported no other symptoms with regard to chest pain, nausea, vomiting, dysuria, hematuria, constipation, diarrhea, fevers, chills, or abdominal pain. Given her chronic respiratory issues at baseline, she was transported to the emergency room via EMS for further assessment Workup and evaluation emergency room demonstrated the patient be hemodynamically stable and with improvement in her respiratory symptoms. Routine blood test done in the emergency room demonstrated an unremarkable CBC but her chemistry was notable for a sodium of 1 Pola and a potassium of 3.2 with normal renal function and chronic anemia. Her magnesium was also slightly low as well and so she received potassium and magnesium supplementation in the emergency room coupled with another nebulizer treatment as well as IV Solu-Medrol given the suspicion that her symptoms were secondary to another COPD exacerbation. Her breathing continued to improve with these interventions and given her low sodium level, she was started on normal saline IV fluids and she was subsequently admitted to the hospital for further evaluation and therapy. Renal consultation was requested due to her acute on chronic hyponatremia. The patient is somewhat familiar to me as I have taking care of her during her December as well as her January 2020 for hospitalizations where her sodium level was an issue at that time as well. From caitlyn
[2024-03-21] MEDS: LEVALBUTEROL NEB 1.25 MG/3 ML INHALATION (13:52)
[2024-03-21] MEDS: methylPREDNISolone SOD SUCC 40 MG VIAL IV PUSH ×2 (14:13→20:43)
[2024-03-21] MEDS: guaiFENesin 12 HR 600 MG TABCR PO ×2 (14:13→20:43)
[2024-03-21] MEDS: ALPRAZolam (*CRX) 0.5 MG TABLET PO ×2 (14:13→16:51)
[2024-03-21] MEDS: SODIUM CHLORIDE 1 GM TABLET PO (16:51)
[2024-03-21 18:02] LABS: Calcium 8.4 mg/dL (8.4-10.2); Carbon Dioxide > 40 mmol/L (22-30); Chloride 78 mmol/L (98-107); Estimated CRCL calculation 69 ml/min; Estimated Glomerular Filt Rate > 60; Glucose 149 mg/dL (65-110); Potassium 4.5 mmol/L (3.4-5.0); Sodium 123 mmol/L (137-145)
[2024-03-21 18:03] LABS: Blood Urea Nitrogen < 2 mg/dL (7-17)
[2024-03-21] MEDS: levETIRAcetam 500 MG TABLET PO (20:43)
[2024-03-21] MEDS: busPIRone HCL 5 MG TABLET PO (20:43)
[2024-03-21 22:43] LABS: Blood Urea Nitrogen 2 mg/dL (7-17); Calcium 8.3 mg/dL (8.4-10.2); Carbon Dioxide > 40 mmol/L (22-30); Chloride 78 mmol/L (98-107); Estimated CRCL calculation 69 ml/min; Estimated Glomerular Filt Rate > 60; Glucose 193 mg/dL (65-110); Potassium 4.6 mmol/L (3.4-5.0); Sodium 119 mmol/L (137-145)
[2024-03-22] VITALS (18 sets, daily range): BP systolic 110–131; BP diastolic 63–83; PULSE 58–114; RESP 16–24; TEMP 36.3–36.4; O2SAT 2–100
[2024-03-22] MEDS: FUROSEMIDE 20 MG TABLET PO ×3 (00:31→17:57)
[2024-03-22] MEDS: SODIUM CHLORIDE 1 GM TABLET PO ×3 (00:31→17:57)
[2024-03-22] MEDS: IPRATROPIUM 0.5 MG/ALBUTEROL SULFATE 2.5 MG AMPUL.NEB 3 ML INHALATION ×4 (01:53→19:22)
[2024-03-22] MEDS: methylPREDNISolone SOD SUCC 40 MG VIAL IV PUSH ×2 (06:26→13:55)
[2024-03-22 06:42] LABS: Eosinophils Percent Auto 0.8 % (0-4.4); Hematocrit 32.9 % (37.0-47.0); Hemoglobin 10.3 g/dL (12.0-15.0); Immature Granulocyte Absolute 0.02 K/mm3 (0.00-0.031); Immature Granulocyte Percent A 0.6 % (0-0.5); Immature Platelet Fraction Pct 2.2 % (0.9-11.2); Lymphocytes Absolute Auto 0.22 K/mm3 (0.9-3.2); Lymphocytes Percent Auto 6.2 % (18.3-44.2); Mean Corpuscular HGB Conc 31.3 g/dl (32-36); Mean Corpuscular Hemoglobin 30.5 pg (26-34); Mean Corpuscular Volume 97.3 fl (80-100); Mean Platelet Volume 10.1 fl (7.4-10.4); Monocytes Absolute Auto 0.3 K/mm3 (0.1-0.6); Monocytes Percent Auto 7.3 % (2.6-8.5); Neutrophils Percent Auto 85.1 % (45.5-73.1); Platelet Count Result 182 k/mm3 (150-375); Red Blood Count 3.38 M/mm3 (4.2-5.4); Red Cell Distribution Width 14.9 % (11.5-14.5); White Blood Count 3.5 K/mm3 (4.5-10.0)
[2024-03-22 07:02] LABS: Alanine Aminotransferase 16 U/L (6-35); Albumin Level 3.9 g/dL (3.5-5.1); Alkaline Phosphatase 85 U/L (38-126); Anion Gap 4 mmol/L (4-12); Aspartate Amino Transferase 32 U/L (14-36); Bilirubin,Total 0.5 mg/dL (0.2-1.3); Blood Urea Nitrogen 5 mg/dL (7-17); Calcium 8.6 mg/dL (8.4-10.2); Carbon Dioxide 39 mmol/L (22-30); Chloride 78 mmol/L (98-107); Estimated CRCL calculation 69 ml/min; Estimated Glomerular Filt Rate > 60; Glucose 138 mg/dL (65-110); Magnesium 1.8 mg/dL (1.6-2.3); Potassium 4.8 mmol/L (3.4-5.0); Sodium 121 mmol/L (137-145)
[2024-03-22] MEDS: FLUTICASONE/UMECLIDIN/VILANTER 100-62.5-25 MCG ELLIPTA 1 PUFF INHALATION (07:42)
[2024-03-22] MEDS: guaiFENesin 12 HR 600 MG TABCR PO ×2 (09:03→20:00)
[2024-03-22] MEDS: busPIRone HCL 5 MG TABLET PO ×2 (09:03→20:00)
[2024-03-22] MEDS: FLUoxetine HCL 20 MG CAPSULE 40 MG PO (09:03)
[2024-03-22] MEDS: ALPRAZolam (*CRX) 0.5 MG TABLET PO ×3 (09:03→17:57)
[2024-03-22] MEDS: MAGNESIUM OXIDE 400 MG TABLET PO (09:03)
[2024-03-22] MEDS: levETIRAcetam 500 MG TABLET PO ×2 (09:04→20:00)
[2024-03-22] MEDS: ENOXAPARIN 40 MG/0.4 ML SYRINGE SUB-Q (09:11)
[2024-03-22] MEDS: THIAMINE HCL 200 MG/2 ML VIAL 100 MG IV PUSH (09:11)
[2024-03-22 09:47] LABS: Blood Urea Nitrogen 5 mg/dL (7-17); Calcium 8.6 mg/dL (8.4-10.2); Carbon Dioxide > 40 mmol/L (22-30); Chloride 76 mmol/L (98-107); Estimated CRCL calculation 69 ml/min; Estimated Glomerular Filt Rate > 60; Glucose 176 mg/dL (65-110); Potassium 3.6 mmol/L (3.4-5.0); Sodium 122 mmol/L (137-145)
--- NOTE | 2024-03-22 11:23 | PM.PNNEP ---
Progress Note: A&P Assessment and Plan (1) Hyponatremia: Code(s): E87.1 - Hypo-osmolality and hyponatremia Status: Chronic Assessment and Plan: recurrent/chronic issue best sodiums to date run 132 - 135mmol/L; however, has been as low as 117mmol/L in the past seems to average out to mid 120s range in general off normal saline IVFs etiology for hyponatremia (based on previous evaluation) long standing lung disease (COPD + chronic respiratory failure) prerenal factors (diminished oral intake) alcohol use SSRI use distant history of CHF TSH, cortisol, and SPEP/UPEP okay by previous testing currently on fluid restriction, salt tabs, and oral lasix follow repeat sodium levels (2) End stage COPD: Code(s): J44.9 - Chronic obstructive pulmonary disease, unspecified Status: Chronic Assessment and Plan: non-compliant with previous interventions/therapy in the past on nebulizer treatments and steroids on baseline home oxygen follow respiratory status (3) Failure to thrive: Status: Acute Assessment and Plan: long standing issue as noted on previous hospitalizations not sure what else can be done give previous attempts at intervention have failed no interested in palliative care (as noted on previous hospitalizations) Will continue to follow. Subjective Date/time seen: 03/22/24 11:23 Interval history: Follow-up for acute on chronic hyponatremia. Sitting up in chair at the time of my visit; no apparent distress noted when seen; started on low dose lasix (along with salt tabs and already previously instituted fluid restriction) yesterday evening due to drop in sodium level down to 119mmol/L; sodium has been slowly improving since then. Exam Narrative: General: frail and cachectic female in NAD Heart: normal S1 and S2; no rub Lungs: coarse breath sounds Abdomen: soft, nontender, nondistended, positive bowel sounds Extremities: no cyanosis or clubbing; no edema Skin: warm and dry Objective Data Vital Signs Vital Signs: Vital Signs Temp Pulse Resp BP Pulse Ox O2 Del Method O2 Flow Rate 03/22/24 09:05 96 99 Nasal Cannula 4 03/22/24 07:50 91 20 03/22/24 07:41 96 20 03/22/24 07:41 95 Nasal Cannula 2 03/22/24 06:10 97.5 F L 91 24 H 110/63 100 03/22/24 04:00 92 06/04/24 00:00 97 03/21/24 20:00 108 H 03/22/24 02:00 95 20 03/22/24 01:53 92 20 03/21/24 20:00 98 Nasal Cannula 4 03/21/24 20:22 99 20 03/21/24 20:55 97.4 F L 107 H 24 H 110/66 98 03/21/24 20:05 94 Nasal Cannula 2 03/21/24 20:05 96 20 Intake/Output Intake/Output: Intake & Output 03/19/24 03/20/24 03/21/24 03/22/24 23:59 23:59 23:59 23:59 Intake Total 1432 1287 Output Total 1350 2150 Balance 82 -863 Meds/Results Medications: Active Medications Generic Name Dose Route Start Last Admin Trade Name Freq PRN Reason Stop Dose Admin Acetaminophen 325 mg 03/21/24 11:16 Acetaminophen 325 Mg Tablet PO Q4H PRN Pain (Scale Score 1-3) Al Hydrox/Mg Hydrox/Simethicone 30 ml 03/21/24 11:27 Mag Hydrox/Al Hydrox/Simeth 30 Ml Udc PO Q4H PRN Indigestion Albuterol 2 puff 03/21/24 11:25 Albuterol Sulfate (*Sp) Aerosol 1 Puff INHALATION QID PRN shortness of breath or wheezing Albuterol/Ipratropium 3 ml 03/21/24 20:00 03/22/24 13:20 Ipratropium 0.5 Mg/Albuterol Sulfate 2.5 Mg Ampul.Neb 3 Ml INHALATION 3 ml Q6HRT DAILY Administration Alprazolam 0.5 mg 03/21/24 13:00 03/22/24 13:55 Alprazolam (*Crx) 0.5 Mg Tablet PO 0.5 mg TID DAILY Administration Buspirone HCl 5 mg 03/21/24 21:00 03/22/24 09:03 Buspirone Hcl 5 Mg Tablet PO 5 mg Q12HR DAILY Administration Enoxaparin Sodium 40 mg 03/22/24 09:00 03/22/24 09:11 Enoxaparin 40 Mg/0.4 Ml Syringe SUB-Q 40 mg
--- NOTE | 2024-03-22 11:23 | P.PNNP_ITS ---
Progress Note: A&P Assessment and Plan (1) Hyponatremia: Code(s): E87.1 - Hypo-osmolality and hyponatremia Status: Chronic Assessment and Plan: * recurrent/chronic issue * best sodiums to date run 132 - 135mmol/L; however, has been as low as 117mmol/L in the past * seems to average out to mid 120s range in general * off normal saline IVFs * etiology for hyponatremia (based on previous evaluation) * long standing lung disease (COPD + chronic respiratory failure) * prerenal factors (diminished oral intake) * alcohol use * SSRI use * distant history of CHF * TSH, cortisol, and SPEP/UPEP okay by previous testing * currently on fluid restriction, salt tabs, and oral lasix * follow repeat sodium levels (2) End stage COPD: Code(s): J44.9 - Chronic obstructive pulmonary disease, unspecified Status: Chronic Assessment and Plan: * non-compliant with previous interventions/therapy in the past * on nebulizer treatments and steroids * on baseline home oxygen * follow respiratory status (3) Failure to thrive: Status: Acute Assessment and Plan: * long standing issue as noted on previous hospitalizations * not sure what else can be done give previous attempts at intervention have failed * no interested in palliative care (as noted on previous hospitalizations) Will continue to follow. Subjective Date/time seen: 03/22/24 11:23 Interval history: Follow-up for acute on chronic hyponatremia. Sitting up in chair at the time of my visit; no apparent distress noted when seen; started on low dose lasix (along with salt tabs and already previously instituted fluid restriction) yesterday evening due to drop in sodium level down to 119mmol/L; sodium has been slowly improving since then. Exam Narrative: General: frail and cachectic female in NAD Heart: normal S1 and S2; no rub Lungs: coarse breath sounds Abdomen: soft, nontender, nondistended, positive bowel sounds Extremities: no cyanosis or clubbing; no edema Skin: warm and dry Objective Data Vital Signs Vital Signs: Vital Signs Temp Pulse Resp BP Pulse Ox O2 Del Method O2 Flow Rate 03/22/24 09:05 96 99 Nasal Cannula 4 03/22/24 07:50 91 20 03/22/24 07:41 96 20 03/22/24 07:41 95 Nasal Cannula 2 03/22/24 06:10 97.5 F L 91 24 H 110/63 100 03/22/24 04:00 92 03/22/24 00:00 97 03/21/24 20:00 108 H 03/22/24 02:00 95 20 03/22/24 01:53 92 20 03/21/24 20:00 98 Nasal Cannula 4 03/21/24 20:22 99 20 03/21/24 20:55 97.4 F L 107 H 24 H 110/66 98 03/21/24 20:05 94 Nasal Cannula 2 03/21/24 20:05 96 20 Intake/Output Intake/Output: Intake & Output 03/19/24 03/20/24 03/21/24 03/22/24 23:59 23:59 23:59 23:59 Intake Total 1432 1287 Output Total 1350 2150 Balance 82 -863 Meds/Results Medications: Active Medications Generic Name Dose Route Start Last Admin Trade Name Freq PRN Reason Stop Dose Admin Acetaminophen 325 mg 03/21/24 11:16 Acetaminophen 325 Mg Tablet PO Q4H PRN
[2024-03-22 11:56] LABS: Glucose Point of Care 233 mg/dl (65-105)
--- NOTE | 2024-03-22 14:23 | PM.IMPN ---
Progress Note: A&P Assessment and Plan (1) Acute exacerbation of chronic obstructive pulmonary disease: Code(s): J44.1 - Chronic obstructive pulmonary disease with (acute) exacerbation Status: Acute (2) Atrial fibrillation: Qualifiers: Atrial fibrillation type: unspecified Qualified Code(s): I48.91 - Unspecified atrial fibrillation Code(s): I48.91 - Unspecified atrial fibrillation Status: Acute (3) Chronic respiratory failure with hypoxia and hypercapnia: Code(s): J96.11 - Chronic respiratory failure with hypoxia; J96.12 - Chronic respiratory failure with hypercapnia Status: Chronic (4) Alcohol abuse: Code(s): F10.10 - Alcohol abuse, uncomplicated Status: Acute (5) Chronic anemia: Code(s): D64.9 - Anemia, unspecified Status: Acute Plan Patient is a 58-year-old female who presents to the emergency department this morning of from nursing facility due to shortness of breath. Patient admits that she does have a history of COPD and states that this feels similar to her COPD exacerbation. Patient was administered a DuoNeb breathing treatment by EMS prior to arrival. She does wear 4 L of nasal cannula around the clock and patient is currently satting 100% on her home 4 L. She denies any chest pain, any nausea or vomiting, any abdominal pain, dysuria or hematuria, constipation, diarrhea, melena, hematochezia, fevers or chills. No additional symptoms or concerns at this time. Patient received DuoNeb treatment and Solu-Medrol 125 any ER EKG showed sinus rhythm rate of 95 beats per minute. Laboratory evaluation revealed sodium 120 potassium 3.2 creatinine 0.3 mild anemia 10.5 magnesium was 1.5. Received potassium and magnesium supplementation in the ER. Chest x-ray showed chronic COPD and probable postoperative changes of the bilateral upper lobes. No definitive acute pulmonary abnormality seen. Breathing was improved with treatment. Nephrology has been consulted. Normal saline has been started at 150 cc an hour. Recent TSH was normal. Cortisol level was also normal in the past. on salt tabs. add fluid restriction as well. On oral Lasix as well. Nephrology has been consulted and appreciate their recommendations Acute COPD exacerbation duoneb, solumedrol, as ordered. No active wheezing with switched to prednisone Seizure disorder resume home medication Chronic benzodiazepine use for anxiety disorder Acute on Chronic hyponatremia Alcohol dependence ongoing. last drink a day prior admission. watch ciwa Tobacco dependence End-stage COPD Chronic respiratory failure with hypoxia DVT prophylaxis Lovenox code status full code Subjective Date/time seen: 03/22/24 14:23 Interval history: No overnight events. Patient sleepy this a.m.. Denies any new issues. Discussed with the nursing staff. Review of Systems Review of Systems: All systems reviewed & are unremarkable except as noted in HPI and below Exam Narrative: General: Alert, awake, afebrile, in no acute distress, frail and cachectic. HEENT: PERRL, Cardiovascular: Regular rate and rhythm, no murmurs, rubs or gallops, no peripheral edema. Respiratory: no tachypnea, no respiratory distress. No wheezes or rhonchi Abdomen: Soft, nontender, nondistended, no rebound, no guarding, no peritoneal signs. Musculoskeletal: No joint swelling or deformity, normal muscle tone. Skin: No rashes or petechia, no signs of infection. Neurological: Alert and oriented to person, place, and time. Follows all commands. No focal deficits, speech is clear and fluent. Objective Data Vital Signs Vital Signs: Vital Signs - 24 hr 03/21/24 16:00 03/21/24 20:05 03/21/24 20:05 Temperature Pulse Rate 103 H 96 Respiratory Rate 20 Blood Pressure Pulse Oximetry 94 Oxygen Delivery Nasal Cannula Oxygen Flow Rate 2 Fraction of Inspired Oxygen 03/21/24 20:55 03/21/24 20:22 03/21/24 20:00 Temperature
--- NOTE | 2024-03-22 15:35 | PCOTNOTE ---
Attempted to see pt. for occupational therapy evaluation. Pt. declined to participate at this time. Nursing aware
[2024-03-22 16:42] LABS: Blood Urea Nitrogen 7 mg/dL (7-17); Carbon Dioxide > 40 mmol/L (22-30); Chloride 77 mmol/L (98-107); Estimated CRCL calculation 69 ml/min; Estimated Glomerular Filt Rate > 60; Glucose 142 mg/dL (65-110); Potassium 3.5 mmol/L (3.4-5.0); Sodium 124 mmol/L (137-145)
[2024-03-22 23:39] LABS: Blood Urea Nitrogen 7 mg/dL (7-17); Calcium 8.2 mg/dL (8.4-10.2); Carbon Dioxide > 40 mmol/L (22-30); Chloride 75 mmol/L (98-107); Estimated CRCL calculation 69 ml/min; Estimated Glomerular Filt Rate > 60; Glucose 128 mg/dL (65-110); Potassium 3.3 mmol/L (3.4-5.0); Sodium 127 mmol/L (137-145)
[2024-03-23] VITALS (12 sets, daily range): BP systolic 92–105; BP diastolic 56–62; PULSE 65–107; RESP 16–20; TEMP 36.4–36.8; O2SAT 95–100
[2024-03-23] MEDS: IPRATROPIUM 0.5 MG/ALBUTEROL SULFATE 2.5 MG AMPUL.NEB 3 ML INHALATION ×3 (01:30→13:19)
[2024-03-23 05:58] LABS: Basophils Percent Auto 0.2 % (0.2-1.2); Hematocrit 29.3 % (37.0-47.0); Hemoglobin 9.3 g/dL (12.0-15.0); Immature Granulocyte Absolute 0.01 K/mm3 (0.00-0.031); Immature Granulocyte Percent A 0.2 % (0-0.5); Lymphocytes Percent Auto 10.8 % (18.3-44.2); Mean Corpuscular HGB Conc 31.7 g/dl (32-36); Mean Corpuscular Hemoglobin 30.7 pg (26-34); Mean Corpuscular Volume 96.7 fl (80-100); Mean Platelet Volume 8.7 fl (7.4-10.4); Monocytes Absolute Auto 0.7 K/mm3 (0.1-0.6); Monocytes Percent Auto 11.9 % (2.6-8.5); Neutrophils Absolute Auto 4.3 K/mm3 (1.3-6.7); Neutrophils Percent Auto 76.9 % (45.5-73.1); Platelet Count Result 235 k/mm3 (150-375); Red Blood Count 3.03 M/mm3 (4.2-5.4); Red Cell Distribution Width 15.2 % (11.5-14.5); White Blood Count 5.6 K/mm3 (4.5-10.0)
[2024-03-23 06:07] LABS: Alanine Aminotransferase 29 U/L (6-35); Albumin Level 3.4 g/dL (3.5-5.1); Alkaline Phosphatase 93 U/L (38-126); Aspartate Amino Transferase 56 U/L (14-36); Bilirubin,Total 0.3 mg/dL (0.2-1.3); Blood Urea Nitrogen 7 mg/dL (7-17); Calcium 8.2 mg/dL (8.4-10.2); Carbon Dioxide > 40 mmol/L (22-30); Chloride 75 mmol/L (98-107); Estimated CRCL calculation 69 ml/min; Estimated Glomerular Filt Rate > 60; Glucose 71 mg/dL (65-110); Magnesium 1.8 mg/dL (1.6-2.3); Potassium 3.3 mmol/L (3.4-5.0); Sodium 126 mmol/L (137-145)
[2024-03-23] MEDS: FLUTICASONE/UMECLIDIN/VILANTER 100-62.5-25 MCG ELLIPTA 1 PUFF INHALATION (07:15)
[2024-03-23] MEDS: ENOXAPARIN 40 MG/0.4 ML SYRINGE SUB-Q (08:12)
[2024-03-23] MEDS: MAGNESIUM SULF 2 GM/WATER 50ML 2 GM/50 ML BAG IVPB (08:12)
[2024-03-23] MEDS: POTASSIUM CHLORIDE 20 MEQ ER TABLET 40 MEQ PO (08:13)
[2024-03-23] MEDS: FLUoxetine HCL 20 MG CAPSULE 40 MG PO (08:13)
[2024-03-23] MEDS: levETIRAcetam 500 MG TABLET PO (08:13)
[2024-03-23] MEDS: FUROSEMIDE 20 MG TABLET PO (08:13)
[2024-03-23] MEDS: predniSONE 20 MG TABLET 40 MG PO (08:13)
[2024-03-23] MEDS: SODIUM CHLORIDE 1 GM TABLET PO (08:14)
[2024-03-23] MEDS: busPIRone HCL 5 MG TABLET PO (08:14)
[2024-03-23] MEDS: ALPRAZolam (*CRX) 0.5 MG TABLET PO ×2 (08:14→12:28)
[2024-03-23] MEDS: MAGNESIUM OXIDE 400 MG TABLET PO (08:14)
[2024-03-23] MEDS: guaiFENesin 12 HR 600 MG TABCR PO (08:14)
[2024-03-23] MEDS: THIAMINE HCL 200 MG/2 ML VIAL 100 MG IV PUSH (08:15)
[2024-03-23] MEDS: acetaZOLAMIDE SODIUM FOR INJ 500 MG VIAL 250 MG IV PUSH (08:15)
[2024-03-23] MEDS: POTASSIUM CHLORIDE 20 MEQ ER TABLET PO (09:16)
[2024-03-23 11:49] LABS: Glucose Point of Care 126 mg/dl (65-105)
--- NOTE | 2024-03-23 12:17 | PM.PNNEP ---
Progress Note: A&P Assessment and Plan (1) Hyponatremia: Code(s): E87.1 - Hypo-osmolality and hyponatremia Status: Chronic Assessment and Plan: slow improvement recurrent/chronic issue best sodiums to date run 132 - 135mmol/L; however, has been as low as 117mmol/L in the past seems to average out to mid 120s (126 - 127mmol/L) range in general off normal saline IVFs etiology for hyponatremia (based on previous evaluation) long standing lung disease (COPD + chronic respiratory failure) prerenal factors (diminished oral intake) alcohol use SSRI use distant history of CHF TSH, cortisol, and SPEP/UPEP okay by previous testing currently on fluid restriction, salt tabs, and oral lasix follow repeat sodium levels (2) End stage COPD: Code(s): J44.9 - Chronic obstructive pulmonary disease, unspecified Status: Chronic Assessment and Plan: non-compliant with previous interventions/therapy in the past on nebulizer treatments and steroids on baseline home oxygen follow respiratory status (3) Failure to thrive: Status: Acute Assessment and Plan: long standing issue as noted on previous hospitalizations not sure what else can be done give previous attempts at intervention have failed no interested in palliative care (as noted on previous hospitalizations) Not much else to add -- will continue to follow from a distance. Subjective Date/time seen: 03/23/24 12:17 Interval history: Follow-up for acute on chronic hyponatremia. Sodium level continues to improve with current interventions/therapy to date; breathing/respiratory status seems back to baseline per patient; no apparent distress noted at the time of my visit; no other issues/events overnight or earlier this morning. Exam Narrative: General: frail and cachectic female in NAD Heart: normal S1 and S2; no rub Lungs: coarse breath sounds Abdomen: soft, nontender, nondistended, positive bowel sounds Extremities: no cyanosis or clubbing; no edema Skin: warm and intact Objective Data Vital Signs Vital Signs: Vital Signs Temp Pulse Resp BP Pulse Ox O2 Del Method O2 Flow Rate 03/23/24 12:00 97.5 F L 75 16 92/62 L 100 03/23/24 10:28 Nasal Cannula 3 03/23/24 08:00 97 03/23/24 08:38 Nasal Cannula 2 03/23/24 07:27 94 20 03/23/24 07:16 83 20 06/05/24 07:16 98 Nasal Cannula 2 03/23/24 05:45 98.3 F 65 16 105/56 L 95 03/23/24 04:00 93 03/23/24 01:47 107 H 20 03/23/24 01:30 104 H 20 03/23/24 00:00 98 03/22/24 20:00 94 03/22/24 20:00 18 2 L Nasal Cannula 2 03/22/24 21:30 97.5 F L 112 H 18 131/83 99 03/22/24 19:48 101 H 20 03/22/24 19:22 94 Nasal Cannula 2 03/22/24 19:22 99 20 03/22/24 16:00 102 H Intake/Output Intake/Output: Intake & Output 03/20/24 03/21/24 03/22/24 03/23/24 23:59 23:59 23:59 23:59 Intake Total 1432 1287 542 Output Total 1350 2150 650 Balance 82 -863 -108 Meds/Results Medications: Medications: Active Medications Generic Name Dose Route Start Last Admin Trade Name Freq PRN Reason Stop Dose Admin Acetaminophen 325 mg 03/21/24 11:16 Acetaminophen 325 Mg Tablet PO Q4H PRN Pain (Scale Score 1-3) Al Hydrox/Mg Hydrox/Simethicone 30 ml 03/21/24 11:27 Mag Hydrox/Al Hydrox/Simeth 30 Ml Udc PO Q4H PRN Indigestion Albuterol 2 puff 03/21/24 11:25 Albuterol Sulfate (*Sp) Aerosol 1 Puff INHALATION QID PRN shortness of breath or wheezing Albuterol/Ipratropium 3 ml 03/21/24 20:00 03/22/24 13:20 Ipratropium 0.5 Mg/Albuterol Sulfate 2.5 Mg Ampul.Neb 3 Ml INHALATION 3 ml Q6HRT DAILY Administration Alprazolam 0.5 mg 03/21/24 13:00 03/22/24 13:55 Alprazolam (*Crx) 0.5 Mg Tablet PO 0.5 mg TID DAILY Administration Buspirone HCl 5 mg 0
--- NOTE | 2024-03-23 12:17 | P.PNNP_ITS ---
Progress Note: A&P Assessment and Plan (1) Hyponatremia: Code(s): E87.1 - Hypo-osmolality and hyponatremia Status: Chronic Assessment and Plan: * slow improvement * recurrent/chronic issue * best sodiums to date run 132 - 135mmol/L; however, has been as low as 117mmol/L in the past * seems to average out to mid 120s (126 - 127mmol/L) range in general * off normal saline IVFs * etiology for hyponatremia (based on previous evaluation) * long standing lung disease (COPD + chronic respiratory failure) * prerenal factors (diminished oral intake) * alcohol use * SSRI use * distant history of CHF * TSH, cortisol, and SPEP/UPEP okay by previous testing * currently on fluid restriction, salt tabs, and oral lasix * follow repeat sodium levels (2) End stage COPD: Code(s): J44.9 - Chronic obstructive pulmonary disease, unspecified Status: Chronic Assessment and Plan: * non-compliant with previous interventions/therapy in the past * on nebulizer treatments and steroids * on baseline home oxygen * follow respiratory status (3) Failure to thrive: Status: Acute Assessment and Plan: * long standing issue as noted on previous hospitalizations * not sure what else can be done give previous attempts at intervention have failed * no interested in palliative care (as noted on previous hospitalizations) Not much else to add -- will continue to follow from a distance. Subjective Date/time seen: 03/23/24 12:17 Interval history: Follow-up for acute on chronic hyponatremia. Sodium level continues to improve with current interventions/therapy to date; breathing/respiratory status seems back to baseline per patient; no apparent distress noted at the time of my visit; no other issues/events overnight or earlier this morning. Exam Narrative: General: frail and cachectic female in NAD Heart: normal S1 and S2; no rub Lungs: coarse breath sounds Abdomen: soft, nontender, nondistended, positive bowel sounds Extremities: no cyanosis or clubbing; no edema Skin: warm and intact Objective Data Vital Signs Vital Signs: Vital Signs Temp Pulse Resp BP Pulse Ox O2 Del Method O2 Flow Rate 03/23/24 12:00 97.5 F L 75 16 92/62 L 100 03/23/24 10:28 Nasal Cannula 3 03/23/24 08:00 97 03/23/24 08:38 Nasal Cannula 2 03/23/24 07:27 94 20 03/23/24 07:16 83 20 03/23/24 07:16 98 Nasal Cannula 2 03/23/24 05:45 98.3 F 65 16 105/56 L 95 03/23/24 04:00 93 03/23/24 01:47 107 H 20 03/23/24 01:30 104 H 20 03/23/24 00:00 98 03/22/24 20:00 94 03/22/24 20:00 18 2 L Nasal Cannula 2 03/22/24 21:30 97.5 F L 112 H 18 131/83 99 03/22/24 19:48 101 H 20 03/22/24 19:22 94 Nasal Cannula 2 03/22/24 19:22 99 20 03/22/24 16:00 102 H Intake/Output Intake/Output: Intake & Output 03/20/24 03/21/24 03/22/24 03/23/24 23:59 23:59 23:59 23:59 Intake Total 1432 1287 542 Output Total 1350 2150 650 Balance 82 -863 -108 Meds/Results Medications: Medications:
--- NOTE | 2024-03-23 14:26 | PM.DS ---
DS: Admitting Diagnosis Discharge Date 03/23/24 Admitting Diagnosis Shortness of breath DS: Discharge Diagnosis Discharge Diagnosis (1) Acute exacerbation of chronic obstructive pulmonary disease: Code(s): J44.1 - Chronic obstructive pulmonary disease with (acute) exacerbation Status: Acute (2) Atrial fibrillation: Qualifiers: Atrial fibrillation type: unspecified Qualified Code(s): I48.91 - Unspecified atrial fibrillation Code(s): I48.91 - Unspecified atrial fibrillation Status: Acute (3) Chronic respiratory failure with hypoxia and hypercapnia: Code(s): J96.11 - Chronic respiratory failure with hypoxia; J96.12 - Chronic respiratory failure with hypercapnia Status: Chronic (4) Alcohol abuse: Code(s): F10.10 - Alcohol abuse, uncomplicated Status: Acute (5) Chronic anemia: Code(s): D64.9 - Anemia, unspecified Status: Acute (6) Hyponatremia: Code(s): E87.1 - Hypo-osmolality and hyponatremia Status: Acute (7) Anxiety: Code(s): F41.9 - Anxiety disorder, unspecified Status: Acute DS: Summary Hospital Course Reason for hospitalization: 58yo female with end-stage COPD, chronic respiratory failure and NICMP here for shortness of breath. Please see H&P for details. Hospital Course: Patient brought in from the nursing facility due to shortness of breath. Patient was administered a DuoNeb breathing treatment by EMS prior to arrival. She does wear 4 L of nasal cannula chronically. Patient received DuoNeb treatment and Solu-Medrol 125mg in the ER. EKG showed sinus rhythm rate and nonspecific T-wave changes. Sodium 120, potassium 3.2 and creatinine 0.3. She had a mild anemia (10.5 hgb). She received potassium and magnesium supplementation in the ER. Chest x-ray showed chronic COPD and probable postoperative changes of the bilateral upper lobes. No definitive acute pulmonary abnormality seen. Breathing was improved with treatment. Nephrology was consulted. Normal saline was started at 150 cc an hour. Recent TSH was normal. She is on salt tabs chronically and these were continued here. Fluid restriction and oral Lasix added as well. She did well. She was transitioned to oral steroids. She remained stable on supplemental oxygen. Sodium improved to 126. She overall did well and was able to return to the [facility]24. Status at Discharge Cognitive/behavioral status at discharge: stable Time Spent with Patient Time attestation: Total time spent providing and/or coordinating discharge services: 34 minutes Time spent: Greater than 30 minutes Exam Narrative: AF 98.3 105/56 97 20 98% 3L Gen - frail and cachectic female in NARD Chest - scattered dry crackles o/w distatn BS. CV - RRR S1/S2 Abd - Soft, scaphoid, +BS. Ext - No pedal edema Psych - Nml mood and affect Skin - Warm and dry DS: Data Data Completed and Pending Labs on day of discharge: Labs from last 24 hours 03/23/24 03/23/24 03/22/24 11:47 05:14 23:15 WBC 5.6 RBC 3.03 L Hgb 9.3 L Hct 29.3 L MCV 96.7 MCH 30.7 MCHC 31.7 L RDW 15.2 H Plt Count 235 MPV 8.7 Immature Gran % (Auto) 0.2 Neut % (Auto) 76.9 H Lymph % (Auto) 10.8 L [place] % (Auto) 11.9 H Eos % (Auto) 0.0 Baso % (Auto) 0.2 Lymph # (Auto) 0.60 L [place] # (Auto) 0.7 H Eos # (Auto) 0.0 Baso # (Auto) 0.0 Abs Immat Gran (auto) 0.01 Absolute Neuts (auto) 4.3 Absolute Nucleated RBC 0.000 Nucleated RBC % 0.0 Sodium 126 L 127 L Potassium 3.3 L 3.3 L Chloride 75 L 75 L Carbon Dioxide > 40 H > 40 H Anion Gap BUN 7 7 Creatinine 0.30 L 0.30 L Estim Creat Clear Calc 69 69 Estimated GFR > 60 > 60 Glucose 71 128 H POC Capillary Glucose 126 H Calcium 8.2 L 8.2 L Magnesium 1.8 Total Bilirubin 0.3 AST 56 H ALT 29 Alkaline Phosphatase 93 Total Pr
== END 2024-03-23 15:20 | DRG 190 ==
LOC: ANHED 07:12 → ANH3MEDSUR 13:49
PROVIDERS: Admitting Provider Internal Medicine; Emergency Provider Emergency Medicine; PCP Family Medicine; Visit Provider Internal Medicine
DX: J44.1 Chronic obstructive pulmonary disease with (acute) exacerbation (principal); E43 Unspecified severe protein-calorie malnutrition; E87.1 Hypo-osmolality and hyponatremia; J96.11 Chronic respiratory failure with hypoxia; J96.12 Chronic respiratory failure with hypercapnia; Z68.1 Body mass index [BMI] 19.9 or less, adult; I48.91 Unspecified atrial fibrillation; G40.909 Epilepsy, unspecified, not intractable, without status epilepticus; F10.20 Alcohol dependence, uncomplicated; R62.7 Adult failure to thrive; M81.0 Age-related osteoporosis without current pathological fracture; K21.9 Gastro-esophageal reflux disease without esophagitis; F41.1 Generalized anxiety disorder; D51.9 Vitamin B12 deficiency anemia, unspecified; Z20.822 Contact with and (suspected) exposure to COVID-19; Z86.16 Personal history of COVID-19; Z99.81 Dependence on supplemental oxygen; Z87.891 Personal history of nicotine dependence; Z91.198 Patient's noncompliance with other medical treatment and regimen for other reason
CPT/HCPCS: 36415; 71045; 80048; 80053; 82948; 83735; 84484; 85025; 85055; 87637; 93005; 94640; 96365; 96372; 96375; 96376; 97161; 97165; 99285; A9270; G0378; J1120; J1650; J2919; J3411; J3475; J7030; J7512

== ENCOUNTER 2024-04-23 18:00 | Emergency (ER) | payer MEDICARE, MEDICAID, SELFPAY ==
--- NOTE | ~2024-04-23 | CT_ITS ---
EXAMINATION: CT brain wo con DATE: 04/23/2024 20:26 INDICATION: confusion, anxiety . TECHNIQUE: Computed tomography (CT) of the head was performed without intravenous contrast. The mA wa s adjusted according to patient size. Iterative reconstruction technique was employed. The dose-lengt h product was 605.33 mGy-cm. COMPARISON: 02/06/2024; MR brain 02/12/2024. FINDINGS: No acute intracranial hemorrhage or extra-axial fluid collection. No hydrocephalus, mass, or herniation. No acute ischemic infarct. Unremarkable dural venous sinus attenuation. No acute osseous abnormality. Bilateral mastoid fluid. The remaining aerated spaces are clear. Mild atrophy and chronic white matter change. Atherosclerotic intracranial calcification. Bilateral l ens replacements. 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 IMPRESSION: No acute intracranial process. Reviewed, dictated and finalized at location K.
--- NOTE | ~2024-04-23 | XR_ITS ---
EXAMINATION: XR chest 2V Exam Date/Time: 04/23/2024 18:25 CDT HISTORY: SOB Comparison: 03/21/2024, 10/23/2023. RESULT: Lines, tubes, and devices: Multiple suture lines in the upper lungs. Lungs and pleura: Severe emphysematous change. No pneumothorax or pleural effusion. Peripheral right midlung subsegmental airspace opacities. Cardiomediastinal silhouette: Stable. Other: No acute osseous or upper abdominal finding. IMPRESSION: Subsegmental right mid lung airspace disease may represent atelectasis or infection. Severe emphysema tous change. Reviewed, dictated and finalized at location K. IMPRESSION: Subsegmental right mid lung airspace disease may represent atelectasis or infec tion. Severe emphysematous change.
[2024-04-23 18:05] VITALS: BP 107/78; PULSE 91; RESP 22; O2SAT 100
--- NOTE | 2024-04-23 18:09 | ECG_ITS ---
Test Date: 2024-04-23 18:11:23 Measurements Intervals [place] Rate: 88 P: 92 NE: 150 QRS: 84 QRSD: 90 T: 97 QT: 367 QTc: 445 Interpretive Statements SINUS RHYTHM RIGHT ATRIAL ENLARGEMENT ANTEROLATERAL INFARCT, AGE INDETERMINATE BORDERLINE ST-T WAVE ABNORMALITY- HIGH LATERAL LEADS BASELINE ARTIFACT- I, II, III, V1-V4 ABNORMAL ECG Compared to ECG 03/21/2024 05:18:46 NO SIGNIFICANT CHANGE Electronically Signed On 04-23-2024 18:19:25 CDT by Quinton Bell D.O.
[2024-04-23 18:26] LABS: Basophils Percent Auto 0.6 % (0.2-1.2); Eosinophils Absolute Auto 0.1 K/mm3 (0-0.3); Eosinophils Percent Auto 1.6 % (0-4.4); Hematocrit 36.5 % (37.0-47.0); Hemoglobin 12.6 g/dL (12.0-15.0); Immature Granulocyte Absolute 0.02 K/mm3 (0.00-0.031); Immature Granulocyte Percent A 0.3 % (0-0.5); Lymphocytes Absolute Auto 0.68 K/mm3 (0.9-3.2); Lymphocytes Percent Auto 10.6 % (18.3-44.2); Mean Corpuscular HGB Conc 34.5 g/dl (32-36); Mean Corpuscular Hemoglobin 31.1 pg (26-34); Mean Corpuscular Volume 90.1 fl (80-100); Mean Platelet Volume 8.2 fl (7.4-10.4); Monocytes Absolute Auto 0.6 K/mm3 (0.1-0.6); Monocytes Percent Auto 8.9 % (2.6-8.5); Platelet Count Result 337 k/mm3 (150-375); Red Blood Count 4.05 M/mm3 (4.2-5.4); White Blood Count 6.4 K/mm3 (4.5-10.0)
[2024-04-23 18:41] LABS: Alanine Aminotransferase 16 U/L (6-35); Albumin Level 4.6 g/dL (3.5-5.1); Alkaline Phosphatase 104 U/L (38-126); Aspartate Amino Transferase 37 U/L (14-36); Bilirubin,Total 0.7 mg/dL (0.2-1.3); Blood Urea Nitrogen 11 mg/dL (7-17); Calcium 9.1 mg/dL (8.4-10.2); Carbon Dioxide > 40 mmol/L (22-30); Chloride 73 mmol/L (98-107); Estimated CRCL calculation 101 ml/min; Estimated Glomerular Filt Rate > 60; Glucose 63 mg/dL (65-110); Potassium 3.8 mmol/L (3.4-5.0); Sodium 122 mmol/L (137-145)
--- NOTE | 2024-04-23 18:55 | ED.ANXIETY ---
HPI - Anxiety General Chief Complaint: Anxiety <ROYCE Cortez Last Filed: 04/24/24 00:46> Stated Complaint: anxiety <ROYCE Cortez Last Filed: 04/24/24 00:46> Time Seen by Provider: 04/23/24 18:19 <ROYCE Cortez Last Filed: 04/24/24 00:46> Source: patient and old records reviewed <ROYCE Cortez Last Filed: 04/24/24 00:46> Mode of arrival: EMS <ROYCE Cortez Filed: 04/24/24 00:46> Limitations: no limitations <ROYCE Cortez Last Filed: 04/24/24 00:46> History of Present Illness HPI narrative: Patient is a 58 y/o female who presents to the ED via EMS with report of anxiety. Patient is a resident of [facility]. She reports she has not felt well today and has been very anxious. She has a history of anxiety and is on xanax 3 times a day. Patient reports she was out of her medication today, however per nursing report, she received her typical dose at the half-way today, which she states did not improve her anxiety. She began complaining of shortness of breath so EMS was contacted to bring the patient here. Patient chronically wears 3 L nasal cannula. Has not required an increase in oxygen. History of COPD and emphysema. Patient denies any recent cough, cold symptoms, fevers, chest pain, lower extremity pain or swelling. She does admit to feeling better currently. <ROYCE Cortez Last Filed: 04/24/24 00:46> Related Data Home Medications: Home Medications Medication Instructions Recorded Confirmed fluticasone fur. 100 mcg-umeclid 1 inh inhalation DAILY 08/19/23 03/21/24 62.5 mcg-vilant 25 mcg inhalat.powder (Trelegy Ellipta) levalbuterol HCl 1.25 mg/3 mL 1.25 mg inhalation Q6H PRN Severe 10/23/23 03/21/24 solution for nebulization Emphysema Aloe [place] 2 % topical TID PRN Dry Skin 03/21/24 03/21/24 Chloraseptic Throat [place] 1.4 % BYMOUTH Q6H PRN Sore Throat 03/21/24 03/21/24 Dandruff Shampoo (pyrithione) 1 % topical DIRECTED PRN dry 03/21/24 03/21/24 scalp acetaminophen 325 mg tablet 325 mg PO Q4H PRN Pain (Scale 03/21/24 03/21/24 Score 1-3) aluminum-mag hydroxide-simethicone 30 ml PO Q4H PRN Indigestion 03/21/24 03/21/24 400 mg-400 mg-40 mg/5 mL oral susp (Mylanta Maximum Strength) buspirone 5 mg tablet 5 mg PO Q12HR 03/21/24 03/21/24 fluoxetine 40 mg capsule 40 mg PO DAILY 03/21/24 03/21/24 guaifenesin 600 mg tablet, 600 mg PO BID 03/21/24 03/21/24 extended release 12 hr loperamide 2 mg tablet 2 mg PO BID PRN Diarrhea 03/21/24 03/21/24 (Anti-Diarrheal (loperamide)) magnesium hydroxide 400 mg/5 mL 30 ml PO BID PRN Constipation 03/21/24 03/21/24 oral suspension (Milk of Magnesia) sodium chloride 1,000 mg soluble 1,000 mg PO BID 03/21/24 03/21/24 tablet vortioxetine 10 mg tablet 10 mg PO DAILY 03/21/24 03/21/24 (Trintellix) <Katy Rainey PA-C - Last Filed: 04/24/24 00:46> Allergies/Adverse Reactions: Allergies Allergy/AdvReac Type Severity Reaction Status Date / Time clindamycin Allergy Unknown anaphylactic Verified 03/08/24 07:09 reaction, rash <Katy Rainey PA-C - Last Filed: 04/24/24 00:46> Review of Systems Review of Systems: CONSTITUTIONAL: Denies fever, chills, or sweats. ENT: Denies rhinorrhea, congestion, sore throat. CARDIOVASCULAR: Denies chest pain, palpitations, or edema. RESPIRATORY: See HPI NEUROLOGIC: Denies headache, dizziness, numbness, or weakness. PSYCHIATRIC: see HPI <Katy Rainey PA-C - Last Filed: 04/24/24 00:46> All systems reviewed & are unremarkable except as noted in HPI and below <Katy Rainey PA-C - Last Filed: 04/24/24 00:46> [facility] Past Medical History Medical History: Medical History Abnormal EKG EKG has previously shown ST elevation which appears to b
[2024-04-23] MEDS: SODIUM CHLORIDE 0.9% IV 1,000 ML 999 ML IV CONT (19:04)
[2024-04-23 19:18] VITALS: BP 114/85; PULSE 88; RESP 20; O2SAT 100
--- NOTE | 2024-04-23 19:24 | PC.NURSE ---
this rn assumed care of patient. this rn took patient report from RAHUL Valladares.
[2024-04-23 19:25] VITALS: O2SAT 95
[2024-04-23] MEDS: IPRATROPIUM 0.5 MG/ALBUTEROL SULFATE 2.5 MG AMPUL.NEB 3 ML INHALATION (19:28)
[2024-04-23 19:32] VITALS: PULSE 94; RESP 18
[2024-04-23 19:42] LABS: Appearance Urine Clear (Clear); Bacteria Urine None Seen /hpf; Bilirubin Urine Negative (Negative); Blood Urine Negative (Negative); Color Urine Yellow (Yellow); Glucose Urine UA Negative (Negative); Ketones Urine 4+ mg/dL (Negative); Leukocyte Esterase Ur Negative LEU/UL (Negative); Need Manual Microscopic Reviewed; Nitrate Urine Negative (Negative); Non Pathogenic Casts 0-2; Protein Urine Trace mg/dL (Negative); RBC Urine 0-2 /hpf (0-2); Squamous Epithelial Cell Urine None Seen /hpf (Few); WBC Urine 0-5 /hpf (0-3)
[2024-04-23 19:44] LABS: Add Urine Microscopic? YES
[2024-04-23] MEDS: SODIUM CHLORIDE 0.9% IV 500 ML 999 ML IV CONT (19:53)
[2024-04-23 20:23] LABS: NT Pro B Type Natriuretic Pept 135 pg/mL (19.9-100); Troponin I 0.019 ng/mL (0.000-0.034)
[2024-04-23 20:29] VITALS: PULSE 96; RESP 21; O2SAT 95
--- NOTE | 2024-04-23 21:14 | ECG_ITS ---
Test Date: 2024-04-23 21:29:26 Measurements Intervals [place] Rate: 92 P: 92 WI: 173 QRS: 80 QRSD: 74 T: 89 QT: 363 QTc: 451 Interpretive Statements SINUS RHYTHM POSSIBLE RIGHT ATRIAL ENLARGEMENT ANTEROLATERAL INFARCT, AGE INDETERMINATE BASELINE ARTIFACT- I, II, III, V1-V5 ABNORMAL ECG Compared to ECG 04/23/2024 18:11:23 NO SIGNIFICANT CHANGE Electronically Signed On 04-24-2024 07:37:10 CDT by Quinton Bell D.O.
[2024-04-23 21:38] LABS: Glucose Point of Care 80 mg/dl (65-105)
[2024-04-23 21:45] LABS: Glucose Point of Care 81 mg/dl (65-105)
[2024-04-23 22:05] LABS: Troponin I 0.013 ng/mL (0.000-0.034)
[2024-04-23 23:21] VITALS: BP 114/85; PULSE 94; RESP 20; O2SAT 100
== END 2024-04-23 23:27 ==
PROVIDERS: Emergency Medicine; Emergency Provider Physician Assistant; PCP Family Medicine
DX: F41.1 Generalized anxiety disorder (principal); J96.11 Chronic respiratory failure with hypoxia; Z99.81 Dependence on supplemental oxygen; E87.1 Hypo-osmolality and hyponatremia; R06.02 Shortness of breath; J44.9 Chronic obstructive pulmonary disease, unspecified; J43.9 Emphysema, unspecified; I42.8 Other cardiomyopathies; D51.9 Vitamin B12 deficiency anemia, unspecified; E55.9 Vitamin D deficiency, unspecified; E88.A Wasting disease (syndrome) due to underlying condition; Z68.1 Body mass index [BMI] 19.9 or less, adult; K21.9 Gastro-esophageal reflux disease without esophagitis; M81.0 Age-related osteoporosis without current pathological fracture; F10.20 Alcohol dependence, uncomplicated; Z86.16 Personal history of COVID-19; Z87.891 Personal history of nicotine dependence; Z79.899 Other long term (current) drug therapy; R94.31 Abnormal electrocardiogram [ECG] [EKG]
CPT/HCPCS: 36415; 70450; 71046; 80053; 81001; 82948; 83880; 84484; 85025; 93005; 94640; 96360; 96361; 99284; J7030; J7040

== ENCOUNTER 2024-04-25 12:05 | Emergency (ER) | payer MEDICARE, MEDICAID, SELFPAY ==
--- NOTE | ~2024-04-25 | CT_ITS ---
CT abdomen pelvis w con Ordering provider: Keshia Drew MD History: 58 years Female with . nausea . Comparison: None. Technique: CT abdomen and pelvis with IV and without oral contrast. Automated exposure control and it erative reconstruction technique were employed. The dose-length product was 176.98 mGy-cm. 100 MLO Omnipaque 350 was given IV. Findings: VISUALIZED LOWER CHEST: Emphysematous changes of the lungs with emphysematous bulla in the left lower lobe area. UPPER ABDOMINAL ORGANS: Liver: Fat infiltration. Gallbladder: Normal. Spleen: Normal. Stomach/duodenum: Slightly thickened wall of the stomach. Clinical evaluation advised. Pancreas: Slightly prominent pancreatic duct. Follow-up advised. Adrenals: Normal. Kidneys: Normal. PELVIC ORGANS: The bladder is normal. Retroverted uterus. BOWEL AND MESENTERY: Colon: No evidence of direct colitis. Fluid in the ascending colon is seen which may indicate diarrhe a or enteritis. No evidence of appendicitis. Small Bowel: Dilated distal small bowel is seen with early obstruction is not excluded. Enteritis and diarrhea are not excluded. Follow-up advised. Peritoneum/mesentery: No free air or free fluid. No mesenteric lymphadenopathy. RETROPERITONEUM: Mild atheromatous disease of the abdominal aorta. Small caliber of the carotid and femoral arteries. No retroperitoneal lymphadenopathy. MUSCULOSKELETAL: Superficial soft tissues: The superficial soft tissues are normal. Bones: Normal spine. Status post fixation the right femoral neck. IMPRESSION: 1. No evidence of appendicitis or diverticulitis. Slightly dilated small bowel loops in the pelvis w hich may indicate early obstruction versus enteritis versus diarrhea. Clinical correlation and follow -up advised. Reviewed, dictated and finalized at location A. IMPRESSION: 1. No evidence of appendicitis or diverticulitis. Slightly dilated small bowel loops in the pelvis which may indicate early obstruction versus enteritis vers us diarrhea. Clinical correlation and follow-up advised.
[2024-04-25 12:13] VITALS: BP 101/56; PULSE 79; RESP 20; TEMP 37; O2SAT 100
--- NOTE | 2024-04-25 12:24 | ED.NAVMDI ---
HPI - Nausea/Vomiting/Diarrhea General Chief complaint: Nausea/Vomiting/Diarrhea Stated complaint: pain all over Time Seen by Provider: 04/25/24 12:24 Source: patient and EMS Mode of arrival: EMS Limitations: no limitations History of Present Illness HPI Narrative: 58 YEARS OLD WHITE FEMALE CAME TO THE EMERGENCY ROOM BY AMBULANCE BECAUSE OF NAUSEA. FROM INTERMEDIATE, PATIENT REPORTS NOT FEELING WELL. WHEN I WENT TO EXAMINE THE PATIENT SHE DOES KNOW WHY SHE CALLED AMBULANCE, CURRENTLY DENYING ANY SYMPTOMS, SHE IS ON CHRONIC OXYGEN BY NASAL CANNULA DOES NOT KNOW HOW MANY L. SHE DENIES ANY FEVER, CHILLS,, VOMITING, DIARRHEA, CONSTIPATION, CHEST PAIN OR SHORTNESS OF BREATH. Related Data Home Medications Medication Instructions Recorded Confirmed fluticasone fur. 100 mcg-umeclid 1 inh inhalation DAILY 08/19/23 03/21/24 62.5 mcg-vilant 25 mcg inhalat.powder (Trelegy Ellipta) levalbuterol HCl 1.25 mg/3 mL 1.25 mg inhalation Q6H PRN Severe 10/23/23 03/21/24 solution for nebulization Emphysema Aloe [place] 2 % topical TID PRN Dry Skin 03/21/24 03/21/24 Chloraseptic Throat [place] 1.4 % BYMOUTH Q6H PRN Sore Throat 03/21/24 03/21/24 Dandruff Shampoo (pyrithione) 1 % topical DIRECTED PRN dry 03/21/24 03/21/24 scalp acetaminophen 325 mg tablet 325 mg PO Q4H PRN Pain (Scale 03/21/24 03/21/24 Score 1-3) aluminum-mag hydroxide-simethicone 30 ml PO Q4H PRN Indigestion 03/21/24 03/21/24 400 mg-400 mg-40 mg/5 mL oral susp (Mylanta Maximum Strength) buspirone 5 mg tablet 5 mg PO Q12HR 03/21/24 03/21/24 fluoxetine 40 mg capsule 40 mg PO DAILY 03/21/24 03/21/24 guaifenesin 600 mg tablet, 600 mg PO BID 03/21/24 03/21/24 extended release 12 hr loperamide 2 mg tablet 2 mg PO BID PRN Diarrhea 03/21/24 03/21/24 (Anti-Diarrheal (loperamide)) magnesium hydroxide 400 mg/5 mL 30 ml PO BID PRN Constipation 03/21/24 03/21/24 oral suspension (Milk of Magnesia) sodium chloride 1,000 mg soluble 1,000 mg PO BID 03/21/24 03/21/24 tablet vortioxetine 10 mg tablet 10 mg PO DAILY 03/21/24 03/21/24 (Trintellix) Allergies Allergy/AdvReac Type Severity Reaction Status Date / Time clindamycin Allergy Unknown anaphylactic Verified 04/25/24 12:18 reaction, rash Review of Systems Review of Systems: All systems reviewed & are unremarkable except as noted in HPI and below PMFSH Past Medical History Medical History Abnormal EKG EKG has previously shown ST elevation which appears to be early repolarization. Alcohol abuse Anxiety Asthma B12 deficiency anemia Chronic anemia Chronic hyponatremia Chronic respiratory failure with hypoxia and hypercapnia On Trelegy unit at nighttime. However the patient is noncompliant 3 L nasal cannula during the day. Closed traumatic nondisplaced fracture of proximal end of right humerus Cognitive impairment COPD with emphysema COVID-19 (~11/2022) Fracture of distal phalanx of ring finger Gastroesophageal reflux disease Generalized anxiety disorder with panic attacks Osteoporosis Protein-calorie malnutrition, severe Pulmonary cachexia due to chronic obstructive pulmonary disease Right hand fracture Secondary nonischemic congestive cardiomyopathy With ejection fraction of 40-45%, diastolic dysfunction grade 1, mid inferior wall, mid anterior wall, mid in for septal wall mid anterior lateral wall, basal apical septum and mid inferior wall hypokinesis on echocardiogram 03/2022 Spontaneous pneumothorax (08/2012) Several pneumothoraces status post VATS procedure and apical blebectomy as well as pleurodesis. Tobacco abuse Quit in 2020 per patient report. Vitamin D deficiency Surgical History Surgical History History of bilateral tubal ligation History of section History of hip surgery (07/2019) ORIF of right femur fracture. History of tonsillectomy Status post thoracotomy L
[2024-04-25] MEDS: ONDANSETRON INJ 4 MG/2 ML VIAL IV PUSH (13:28)
[2024-04-25] MEDS: SODIUM CHLORIDE 0.9% IV 2,000 ML 999 ML IV CONT (13:28)
[2024-04-25 13:38] LABS: Basophils Percent Auto 0.6 % (0.2-1.2); Eosinophils Absolute Auto 0.1 K/mm3 (0-0.3); Eosinophils Percent Auto 2.4 % (0-4.4); Hemoglobin 10.5 g/dL (12.0-15.0); Immature Granulocyte Absolute 0.01 K/mm3 (0.00-0.031); Immature Granulocyte Percent A 0.2 % (0-0.5); Lymphocytes Absolute Auto 0.57 K/mm3 (0.9-3.2); Lymphocytes Percent Auto 11.3 % (18.3-44.2); Mean Corpuscular HGB Conc 33.9 g/dl (32-36); Mean Corpuscular Hemoglobin 31.3 pg (26-34); Mean Corpuscular Volume 92.3 fl (80-100); Mean Platelet Volume 8.5 fl (7.4-10.4); Monocytes Absolute Auto 0.6 K/mm3 (0.1-0.6); Monocytes Percent Auto 11.3 % (2.6-8.5); Neutrophils Absolute Auto 3.8 K/mm3 (1.3-6.7); Neutrophils Percent Auto 74.2 % (45.5-73.1); Platelet Count Result 298 k/mm3 (150-375); Red Blood Count 3.36 M/mm3 (4.2-5.4); Red Cell Distribution Width 13.2 % (11.5-14.5); White Blood Count 5.1 K/mm3 (4.5-10.0)
[2024-04-25 13:46] LABS: Alanine Aminotransferase 14 U/L (6-35); Albumin Level 3.4 g/dL (3.5-5.1); Alkaline Phosphatase 78 U/L (38-126); Aspartate Amino Transferase 33 U/L (14-36); Bilirubin,Total 0.4 mg/dL (0.2-1.3); Blood Urea Nitrogen 8 mg/dL (7-17); Calcium 8.2 mg/dL (8.4-10.2); Carbon Dioxide > 40 mmol/L (22-30); Chloride 76 mmol/L (98-107); Estimated CRCL calculation 140 ml/min; Estimated Glomerular Filt Rate > 60; Glucose 121 mg/dL (65-110); Lipase 644 U/L (23-300); Potassium 3.3 mmol/L (3.4-5.0); Sodium 124 mmol/L (137-145)
--- NOTE | 2024-04-25 14:19 | PC.NURSE ---
Updated [facility] at [place] about patient.
[2024-04-25 15:35] VITALS: BP 102/68; PULSE 77; RESP 16; O2SAT 100
== END 2024-04-25 16:02 ==
PROVIDERS: Emergency Provider Emergency Medicine; PCP Family Medicine
DX: R62.7 Adult failure to thrive (principal); Z68.1 Body mass index [BMI] 19.9 or less, adult; E87.6 Hypokalemia; E87.1 Hypo-osmolality and hyponatremia; F41.9 Anxiety disorder, unspecified; J45.909 Unspecified asthma, uncomplicated; D64.9 Anemia, unspecified; J96.21 Acute and chronic respiratory failure with hypoxia; Z99.81 Dependence on supplemental oxygen; J44.9 Chronic obstructive pulmonary disease, unspecified; Z87.891 Personal history of nicotine dependence
CPT/HCPCS: 36415; 74177; 80053; 83690; 85025; 96361; 96374; 99284; J2405; J7030; Q9967

== ENCOUNTER 2024-07-26 08:15 | Emergency (ER) | payer MEDICARE, MEDICAID, SELFPAY ==
[2024-07-26] VITALS (7 sets, daily range): BP systolic 83–107; BP diastolic 45–72; PULSE 65–101; RESP 14–18; TEMP 36.4–36.5; O2SAT 94–100
--- NOTE | ~2024-07-26 | XR_ITS ---
EXAMINATION: XR shoulder RT min 2V DATE: 07/26/2024 09:01 INDICATION: Right shoulder pain. Fall. TECHNIQUE: 4 views of right shoulder were obtained. COMPARISON: Right shoulder radiographs 08/20/2019 FINDINGS: Alignment is normal. No fracture. There is mild osteoarthritis of glenohumeral joint and mo derate osteoarthritis of acromioclavicular joint. There are staple lines in the lungs. IMPRESSION: 1. Polyarticular osteoarthritis. Reviewed, dictated and finalized at location A.
--- NOTE | ~2024-07-26 | XR_ITS ---
EXAMINATION: XR hip RT 2V w AP pelvis DATE: 07/26/2024 09:01 INDICATION: Right hip pain. Fall. TECHNIQUE: An anteroposterior view of the pelvis and 2 views of right hip were obtained. COMPARISON: Pelvis and right hip radiographs 08/20/2019 FINDINGS: There is an old healed fracture of right femoral neck with fixation with 3 lag screws. No a cute fracture. There is mild lumbar spondylosis. There is mild osteoarthritis of the hips. IMPRESSION: 1. Mild osteoarthritis of the hips. Reviewed, dictated and finalized at location A.
--- NOTE | 2024-07-26 09:03 | PC.NURSE ---
0849: pt c/o right shoulder & right hip pain, CMS WNL. there is no rotation to right leg. Dr. Ambrocio at bedside & removed cervical collar.
--- NOTE | 2024-07-26 09:26 | ED.FALL ---
HPI - Fall General Chief Complaint: Fall Stated Complaint: fall Time Seen by Provider: 07/26/24 08:23 History of Present Illness HPI Narrative: Pt lost balance and fell landing on right side. Pt denies LOC or neck pain. Pt complains of right hip and right shoulder pain. Pt denies vomiting or diarrhea or abdominal pain. Related Data Home Medications Medication Instructions Recorded Confirmed fluticasone fur. 100 mcg-umeclid 1 inh inhalation DAILY 08/19/23 03/21/24 62.5 mcg-vilant 25 mcg inhalat.powder (Trelegy Ellipta) levalbuterol HCl 1.25 mg/3 mL 1.25 mg inhalation Q6H PRN Severe 10/23/23 03/21/24 solution for nebulization Emphysema Aloe [place] 2 % topical TID PRN Dry Skin 03/21/24 03/21/24 Chloraseptic Throat [place] 1.4 % BYMOUTH Q6H PRN Sore Throat 03/21/24 03/21/24 Dandruff Shampoo (pyrithione) 1 % topical DIRECTED PRN dry 03/21/24 03/21/24 scalp acetaminophen 325 mg tablet 325 mg PO Q4H PRN Pain (Scale 03/21/24 03/21/24 Score 1-3) aluminum-mag hydroxide-simethicone 30 ml PO Q4H PRN Indigestion 03/21/24 03/21/24 400 mg-400 mg-40 mg/5 mL oral susp (Mylanta Maximum Strength) buspirone 5 mg tablet 5 mg PO Q12HR 03/21/24 03/21/24 fluoxetine 40 mg capsule 40 mg PO DAILY 03/21/24 03/21/24 guaifenesin 600 mg tablet, 600 mg PO BID 03/21/24 03/21/24 extended release 12 hr loperamide 2 mg tablet 2 mg PO BID PRN Diarrhea 03/21/24 03/21/24 (Anti-Diarrheal (loperamide)) magnesium hydroxide 400 mg/5 mL 30 ml PO BID PRN Constipation 03/21/24 03/21/24 oral suspension (Milk of Magnesia) sodium chloride 1,000 mg soluble 1,000 mg PO BID 03/21/24 03/21/24 tablet vortioxetine 10 mg tablet 10 mg PO DAILY 03/21/24 03/21/24 (Trintellix) Allergies Allergy/AdvReac Type Severity Reaction Status Date / Time clindamycin Allergy Unknown anaphylactic Verified 04/25/24 12:18 reaction, rash Review of Systems Review of Systems: All systems reviewed & are unremarkable except as noted in HPI and below PMFSH Past Medical History Medical History Abnormal EKG EKG has previously shown ST elevation which appears to be early repolarization. Alcohol abuse Anxiety Asthma B12 deficiency anemia Chronic anemia Chronic hyponatremia Chronic respiratory failure with hypoxia and hypercapnia On Trelegy unit at nighttime. However the patient is noncompliant 3 L nasal cannula during the day. Closed traumatic nondisplaced fracture of proximal end of right humerus Cognitive impairment COPD with emphysema COVID-19 (~11/2022) Fracture of distal phalanx of ring finger Gastroesophageal reflux disease Generalized anxiety disorder with panic attacks Osteoporosis Protein-calorie malnutrition, severe Pulmonary cachexia due to chronic obstructive pulmonary disease Right hand fracture Secondary nonischemic congestive cardiomyopathy With ejection fraction of 40-45%, diastolic dysfunction grade 1, mid inferior wall, mid anterior wall, mid in for septal wall mid anterior lateral wall, basal apical septum and mid inferior wall hypokinesis on echocardiogram 03/2022 Spontaneous pneumothorax (08/2012) Several pneumothoraces status post VATS procedure and apical blebectomy as well as pleurodesis. Tobacco abuse Quit in 2019 per patient report. Vitamin D deficiency Surgical History Surgical History History of bilateral tubal ligation History of section History of hip surgery (07/2019) ORIF of right femur fracture. History of tonsillectomy Status post thoracotomy Left-sided VATS procedure and apical bleb resection with pleurodesis. Family History Family History Father Acute myocardial infarction Mother Chronic obstructive pulmonary disease Social History Social History Social History: The patient had 3 so
--- NOTE | 2024-07-26 10:22 | PC.NURSE ---
Unable to obtain vascular access by this RN and Jacquelyn KAY, Dr. Ambrocio informed & Kiana from [facility] notified
[2024-07-26] MEDS: SODIUM CHLORIDE 0.9% IV 1,000 ML 999 ML IV CONT (10:49)
[2024-07-26 10:56] LABS: Basophils Percent Auto 0.3 % (0.2-1.2); Eosinophils Absolute Auto 0.1 K/mm3 (0-0.3); Eosinophils Percent Auto 0.8 % (0-4.4); Hematocrit 30.3 % (37.0-47.0); Hemoglobin 9.5 g/dL (12.0-15.0); Immature Granulocyte Absolute 0.02 K/mm3 (0.00-0.031); Immature Granulocyte Percent A 0.2 % (0-0.5); Lymphocytes Absolute Auto 0.56 K/mm3 (0.9-3.2); Lymphocytes Percent Auto 5.7 % (18.3-44.2); Mean Corpuscular HGB Conc 31.4 g/dl (32-36); Mean Corpuscular Hemoglobin 31.8 pg (26-34); Mean Corpuscular Volume 101.3 fl (80-100); Mean Platelet Volume 9.6 fl (7.4-10.4); Monocytes Absolute Auto 0.4 K/mm3 (0.1-0.6); Monocytes Percent Auto 4.1 % (2.6-8.5); Neutrophils Absolute Auto 8.8 K/mm3 (1.3-6.7); Neutrophils Percent Auto 88.9 % (45.5-73.1); Platelet Count Result 186 k/mm3 (150-375); Red Blood Count 2.99 M/mm3 (4.2-5.4); Red Cell Distribution Width 13.9 % (11.5-14.5); White Blood Count 9.8 K/mm3 (4.5-10.0)
[2024-07-26 11:10] LABS: Alanine Aminotransferase 58 U/L (6-35); Alkaline Phosphatase 85 U/L (38-126); Aspartate Amino Transferase 82 U/L (14-36); Bilirubin,Total 0.6 mg/dL (0.2-1.3); Blood Urea Nitrogen 6 mg/dL (7-17); Calcium 7.8 mg/dL (8.4-10.2); Carbon Dioxide > 40 mmol/L (22-30); Chloride 76 mmol/L (98-107); Estimated CRCL calculation 62 ml/min; Estimated Glomerular Filt Rate > 60; Glucose 93 mg/dL (65-110); Potassium 4.5 mmol/L (3.4-5.0); Sodium 123 mmol/L (137-145)
--- NOTE | 2024-07-26 11:42 | PC.NURSE ---
Gave report to nursing facility at this time
--- NOTE | 2024-07-26 13:17 | PC.NURSE ---
Report called to RAHUL Gomez at [facility]. ED certified legal secretary specialist to set up transport for pt to return to facility.
== END 2024-07-26 15:42 | disposition home or self-care (01) ==
PROVIDERS: Emergency Provider Emergency Medicine; PCP Family Medicine
DX: S46.911A Strain of unspecified muscle, fascia and tendon at shoulder and upper arm level, right arm, initial encounter (principal); F41.9 Anxiety disorder, unspecified; J45.909 Unspecified asthma, uncomplicated; D64.9 Anemia, unspecified; J96.12 Chronic respiratory failure with hypercapnia; J96.11 Chronic respiratory failure with hypoxia; Z99.81 Dependence on supplemental oxygen; J44.9 Chronic obstructive pulmonary disease, unspecified; Z87.891 Personal history of nicotine dependence; W19.XXXA Unspecified fall, initial encounter
CPT/HCPCS: 36415; 73030; 73502; 80053; 85025; 86850; 86900; 86901; 96360; 96361; 99284; J7030

== ENCOUNTER 2024-07-27 12:21 | Emergency (ER) | payer MEDICARE, MEDICAID, SELFPAY ==
[2024-07-27] VITALS (27 sets, daily range): BP systolic 72–129; BP diastolic 57–93; PULSE 104–124; RESP 12–22; TEMP 36.3–37.8; O2SAT 92–100
--- NOTE | ~2024-07-27 | XR_ITS ---
EXAMINATION: XR femur RT min 2V DATE: 07/27/2024 15:15 INDICATION: Proximal right femur fracture. TECHNIQUE: 2 views of right femur on 4 radiographs were obtained. COMPARISON: CT abdomen and pelvis 07/27/2024 FINDINGS: There is an old healed fracture of right femoral neck with internal fixation with 3 lag scr ews. There is an acute nondisplaced fracture involving the anterior aspect of greater trochanter and intertrochanteric region of proximal right femur. There is mild right hip osteoarthritis. No knee john nt effusion. A catheter overlies the bladder. IMPRESSION: 1. Acute nondisplaced fracture involving the anterior aspect of greater trochanter and intertrochante bushra region of proximal right femur. Reviewed, dictated and finalized at location A. IMPRESSION: 1. Acute nondisplaced fracture involving the anterior aspect of greater trochan ter and intertrochanteric region of proximal right femur.
--- NOTE | ~2024-07-27 | XR_ITS ---
XR chest ET placement 07/27/2024 13:29 Indication: Endotracheal tube placement Procedure: AP portable chest Comparison: Comparison to multiple prior studies sequentially, with oldest reviewed study dated 02/25. Findings: Endotracheal tube tip lies 6 cm above the mario. There are extensive surgical changes of t he upper lungs. There are is bullous emphysema with blebs affecting the lower lungs. No pneumothorax identified. Small pleural effusions. Impression: 1: Severe bullous emphysema. 2: Small pleural effusions. Reviewed, dictated and finalized at location B. Impression: 1: Severe bullous emphysema. 2: Small pleural effusions.
--- NOTE | ~2024-07-27 | CT_ITS ---
EXAMINATION: CT brain wo con DATE: 07/27/2024 14:19 INDICATION: Altered mental status TECHNIQUE: Computed tomography (CT) of the head was performed without intravenous contrast. The dose- length product was 681.00 mGy-cm. Automated exposure control and iterative reconstruction technique w ere employed. COMPARISON: CT dated 04/23/2024 FINDINGS: Generalized atrophy. Study limited by motion artifact. There are scattered mild periventric ular and subcortical white matter changes, most likely related to small vessel ischemic disease (micr oangiopathy). Basilar cisterns are patent. No acute intracranial hemorrhage, infarction, mass or mass effect. Paranasal sinuses and mastoids are pneumatized. Midline sagittal images are unremarkable. IMPRESSION: 1. No acute intracranial abnormality. Reviewed, dictated and finalized at location B.
--- NOTE | ~2024-07-27 | CT_ITS ---
EXAMINATION: CT chest abdomen pelvis wo con DATE: 07/27/2024 14:19 INDICATION: Fall. Altered mental status. TECHNIQUE: Computed tomography (CT) of the chest, abdomen, and pelvis was performed without intraveno us contrast. Automated exposure control and iterative reconstruction technique were employed. The dos e-length product was 108.34 mGy-cm. COMPARISON: CT abdomen and pelvis 04/25/2024, chest CT 08/19/23 FINDINGS: CHEST CT: There is severe emphysema. There are staple lines in the upper lobes. There is mild scarring at the l toribio apices. There is mild atelectasis bilaterally. No pleural effusion. The heart size is normal. The re are coronary artery calcifications. No pericardial effusion. There is a tracheostomy tube in expec padmini position. There is kyphosis of thoracic spine. There is a compression fracture of T5 with 1/5 los s of height. There is a chronic compression fracture of T5. There is a chronic burst fracture of T6. There is a chronic compression fracture of T9. There is and old healed fracture of left seventh rib. ABDOMEN/PELVIS CT: The liver is normal. There are gallstones in the gallbladder, which is normal in size. The spleen, pa ncreas, adrenal glands, and kidneys are normal. There is a Sanchez catheter in expected position. There are no dilated loops of bowel. The appendix is not visualized. There is a small volume of ascites. T here are no pathologically enlarged lymph nodes. There is an old healed fracture of proximal right fe mur with internal fixation with three lag screws. There is a nondisplaced fracture of anterior aspect of the intertrochanteric region of proximal right femur. There are old healed insufficiency fracture s of the sacrum. IMPRESSION: 1. Severe emphysema. 2. Acute nondisplaced fracture of anterior aspect of the intertrochanteric region of proximal right f emur. 3. T5 compression fracture, likely acute or subacute. 4. Small volume of pelvic ascites. Reviewed, dictated and finalized at location A. IMPRESSION: 1. Severe emphysema. 2. Acute nondisplaced fracture of anterior aspect of the intertrochanteric vikram on of proximal right femur. 3. T5 compression fracture, likely acute or subacute. 4. Small volume of pelvic ascites.
[2024-07-27] MEDS: ETOMIDATE 40 MG/20 ML VIAL 10 MG IV PUSH ×2 (12:41→12:44)
[2024-07-27] MEDS: ROCURONIUM BROMIDE 50 MG/5 ML VIAL IV PUSH (12:42)
[2024-07-27] MEDS: MIDAZOLAM HCL (*CRX) 2 MG/2 ML VIAL 5 MG IV PUSH (12:48)
[2024-07-27] MEDS: MIDAZOLAM HCL (*CRX) 2 MG/2 ML VIAL (12:50)
--- NOTE | 2024-07-27 12:53 | ECG_ITS ---
Test Date: 2024-07-27 14:55:09 Measurements Intervals [place] Rate: 106 P: 90 MI: 141 QRS: 44 QRSD: 61 T: 82 QT: 354 QTc: 471 Interpretive Statements BASELINE ARTIFACT, POOR QUALITY ECG SINUS TACHYCARDIA NONDIAGNOSTIC ANTERIOR Q-WAVES BORDERLINE ECG Compared to ECG 04/23/2024 21:29:26 COMPARISON DIFFICULT ATRIAL-SENSED VENTRICULAR-PACED COMPLEXESTHIS IS A VERY POOR QUALITY ECG Electronically Signed On 07-28-2024 07:50:50 CDT by Issa Ramos M.D.
--- NOTE | 2024-07-27 13:16 | ED.AMS ---
HPI - Altered Mental Status General Chief Complaint: Altered Mental Status Stated Complaint: unresponsive Source: EMS Mode of arrival: EMS Limitations: altered mental status History of Present Illness HPI narrative: HPI limited due to patient's altered mental status. This is a 58-year-old female, with history end-stage COPD, brought in by EMS for altered mental status. EMS reports the patient was seen here yesterday after a ground level fall at which time she was responsive. Staff at her correction evaluated her found her unresponsive with O2 sats in the mid 80s despite 3 L nasal cannula. Capnography reported initially at 75, improved to 45 with bagging. Related Data Home Medications Medication Instructions Recorded Confirmed fluticasone fur. 100 mcg-umeclid 1 inh inhalation DAILY 08/19/23 03/21/24 62.5 mcg-vilant 25 mcg inhalat.powder (Trelegy Ellipta) levalbuterol HCl 1.25 mg/3 mL 1.25 mg inhalation Q6H PRN Severe 10/23/23 03/21/24 solution for nebulization Emphysema Aloe [place] 2 % topical TID PRN Dry Skin 03/21/24 03/21/24 Chloraseptic Throat [place] 1.4 % BYMOUTH Q6H PRN Sore Throat 03/21/24 03/21/24 Dandruff Shampoo (pyrithione) 1 % topical DIRECTED PRN dry 03/21/24 03/21/24 scalp acetaminophen 325 mg tablet 325 mg PO Q4H PRN Pain (Scale 03/21/24 03/21/24 Score 1-3) aluminum-mag hydroxide-simethicone 30 ml PO Q4H PRN Indigestion 03/21/24 03/21/24 400 mg-400 mg-40 mg/5 mL oral susp (Mylanta Maximum Strength) buspirone 5 mg tablet 5 mg PO Q12HR 03/21/24 03/21/24 fluoxetine 40 mg capsule 40 mg PO DAILY 03/21/24 03/21/24 guaifenesin 600 mg tablet, 600 mg PO BID 03/21/24 03/21/24 extended release 12 hr loperamide 2 mg tablet 2 mg PO BID PRN Diarrhea 03/21/24 03/21/24 (Anti-Diarrheal (loperamide)) magnesium hydroxide 400 mg/5 mL 30 ml PO BID PRN Constipation 03/21/24 03/21/24 oral suspension (Milk of Magnesia) sodium chloride 1,000 mg soluble 1,000 mg PO BID 03/21/24 03/21/24 tablet vortioxetine 10 mg tablet 10 mg PO DAILY 03/21/24 03/21/24 (Trintellix) Allergies Allergy/AdvReac Type Severity Reaction Status Date / Time clindamycin Allergy Unknown anaphylactic Verified 04/25/24 12:18 reaction, rash Review of Systems Review of Systems: ROS unobtainable: Yes unobtainable due to mental status [facility] Past Medical History Medical History Abnormal EKG EKG has previously shown ST elevation which appears to be early repolarization. Alcohol abuse Anxiety Asthma B12 deficiency anemia Chronic anemia Chronic hyponatremia Chronic respiratory failure with hypoxia and hypercapnia On Trelegy unit at nighttime. However the patient is noncompliant 3 L nasal cannula during the day. Closed traumatic nondisplaced fracture of proximal end of right humerus Cognitive impairment COPD with emphysema COVID-19 (~11/2022) Fracture of distal phalanx of ring finger Gastroesophageal reflux disease Generalized anxiety disorder with panic attacks Osteoporosis Protein-calorie malnutrition, severe Pulmonary cachexia due to chronic obstructive pulmonary disease Right hand fracture Secondary nonischemic congestive cardiomyopathy With ejection fraction of 40-45%, diastolic dysfunction grade 1, mid inferior wall, mid anterior wall, mid in for septal wall mid anterior lateral wall, basal apical septum and mid inferior wall hypokinesis on echocardiogram 03/2022 Spontaneous pneumothorax (08/2012) Several pneumothoraces status post VATS procedure and apical blebectomy as well as pleurodesis. Tobacco abuse Quit in 2019 per patient report. Vitamin D deficiency Surgical History Surgical History History of bilateral tubal ligation History of section History of hip surgery (07/2019) ORIF of right femur fracture. History of tonsillectomy Status post thoracotomy Left-sided VATS procedure and apical bleb resection with pleurodesis. Family History Family History Father Acute myocardial infarction Mother Chronic obstructive pulmonary disease Social History Social History Social History: The patient had 3 sons but one from drug overdose. Patient is an alcoholic. Denies recent alcoholor tobacco use. No drug use. She lives with her son and ex-. Code status: Not sure - she wants me to contact family POA: Lino Herrera Smoking packs per day: 1 Smoking cigarettes per day: 20.0 Years smoked: 40 Smoking pack-years: 40.00 Smoking status: Former smoker Second hand tobacco smoke exposure: No Alcohol intake: current Drinks per week: 5 Alcohol use details: Heavier drinker in the past. Substance use: never Substance use type: marijuana Do You Feel Safe in your Home?: Yes Lack of Transportation: No Lack of Food: Never True Current Housing: I Have Housing Concerned About Future Housing: No Difficulty Paying Gas/Electric Bills: No Difficulty Paying for Meds: No Currently Unemployed: No Education: High School Diploma/GED Difficulty w/ Childcare or Family Care: No Living arrangements: with family Additional living arrangements comments: Lives with son in [place]. Additional occupation/education comments: Disabled. Spiritual care concerns: No Agree to blood products: Yes Exam Narrative: GENERAL: Well-developed, cachectic, unresponsive HEAD: Normocephalic, atraumatic. EYES: PERRL, measuring 3 mm bilaterally ENT: Nares clear, no rhinorrhea or epistaxis. Mucous membranes dry. Oropharynx without tonsillar hypertrophy exudate or other lesions. NECK: No midline step-off or crepitus CHEST: Clear aeration with bagging, lower on the left than the right. No wheezes rales or rhonchi HEART: Regular rate and rhythm. No murmur heard. Normal peripheral pulses. ABDOMEN: Soft, nondistended, normal active bowel sounds. BACK: No midline. Off or crepitus EXTREMITIES: No edema. SKIN: Warm, dry, no rash. NEURO: Minimally responsive. Intermittently localizes to face with right arm. Spontaneously moves bilateral lower skin bodies Course Course Emergency Course: 13:03 - The patient was intubated for a GCS of 7. I am concerned for either intracranial hemorrhage or hypercapnic, hypoxic respiratory failure. 16:00 - CT chest abdomen pelvis demonstrates a T5 compression fracture that appears to be acute versus subacute. There is also a left intertrochanteric fracture noted. The patient had multiple episodes of hypotension. Bedside ultrasound was not concerning for free fluid in the abdomen. The patient's IVC appears to be full. Cardiac ultrasound not concerning for pericardial effusion or right ventricular strain pattern. EKG not concerning for ischemia. The patient has bilateral breath sounds without changes on the vent the concerning for high peak pressures. Multiple adjustments were made to the patient's sedation with gradual improvement. I discussed the patient with orthopedic surgeon, Dr. Cerrato who recommends transfer to a tertiary facility. CBC demonstrates anemia with hemoglobin of 7.7. Chemistries demonstrate hyponatremia sodium of 123 and hypocalcemia with calcium is 7.5 along with mild AST/ALT elevations of 41/38 respectively but is otherwise unremarkable. ABG demonstrates pH 7.25 with pCO2 of 86 and bicarb of 37.5, consistent with hypercapnic respiratory failure. PaO2 513 on 100% FiO2. FiO2 decreased to 60%. The patient's O2 sats remain in the high 90s. 17:00 - I discussed the patient with [facility] Orthopedic trauma chief, Dr. Foley who accepts transfer. I discussed the patient with ED physician, Dr. Alfred who also accepts. Vital Signs Vital signs: Vital Signs Pulse Rate 116 H 07/27/24 12:21 Respiratory Rate 12 07/27/24 12:21 Pulse Rate 115 H 07/27/24 17:37 Respiratory Rate 17 07/27/24 14:44 Pulse Oximetry 99 07/27/24 17:37 Oxygen Delivery Mechanical Ventilation 07/27/24 17:37 Fraction of Inspired Oxygen 60 07/27/24 17:37 Procedures Intubation Intubation #1: Intubation Date: 07/27/24 Intubation Time: 13:00 Time out performed: Yes sedative: Etomidate Mg Given: 20 paralytic: Rocuronium Mg Given: 50 Laryngoscope: other (Green[place] scope) Tube Size (cm): 7.5 Method of Intubation: orotracheal Number of Attempts: 1 Tube Secured Depth (cm): 21 Tube Secured Location: teeth Tube Placement Confirmation: visualized tube passing through cords, equal breath sounds bilaterally, no breath sounds over epigastrium and confirmation by capnometry Patient Tolerated Procedure: other (Difficult to sedate) Intubation Complications: none MDM - Altered Mental Status MDM Narrative Medical decision making narrative: Plan: Intubation, imaging, labs, IV fluids, reassess Differential Diagnosis Differential diagnosis: Likely alcoholic intoxication and other (Intracranial hemorrhage, hypercapnic hypoxic respiratory failure, metabolic abnormality, drug intoxication,) Lab Data 07/27/24 14:47 07/27/24 14:47 Labs: Lab Results 07/27/24 07/27/24 Range/Units 13:45 14:47 WBC 6.0 (4.5-10.0) K/mm3 RBC 2.46 L (4.2-5.4) M/mm3 Hgb 7.7 L (12.0-15.0) g/dL Hct 24.7 L (37.0-47.0) % MCV 100.4 H (80-100) fl MCH 31.3 (26-34) pg MCHC 31.2 L (32-36) g/dl RDW 13.6 (11.5-14.5) % Plt Count 149 L (150-375) k/mm3 MPV 9.7 (7.4-10.4) fl Immature Gran % (Auto) 0.3 (0-0.5) % Neut % (Auto) 84.7 H (45.5-73.1) % Lymph % (Auto) 5.9 L (18.3-44.2) % [place] % (Auto) 8.7 H (2.6-8.5) % Eos % (Auto) 0.2 (0-4.4) % Baso % (Auto) 0.2 (0.2-1.2) % Lymph # (Auto) 0.35 L (0.9-3.2) K/mm3 [place] # (Auto) 0.5 (0.1-0.6) K/mm3 Eos # (Auto) 0.0 (0-0.3) K/mm3 Baso # (Auto) 0.0 (0.0-0.1) K/mm3 Abs Immat Gran (auto) 0.02 (0.00-0.031) K/mm3 Absolute Neuts (auto) 5.1 (1.3-6.7) K/mm3 Absolute Nucleated RBC 0.000 (0.0-0.012) K/mm3 Nucleated RBC % 0.0 (0.0-0.2) % % Immature Plt Fraction 2.6 (0.9-11.2) % PT 13.0 (11.1-14.7) Seconds INR 0.9 APTT 32.3 (22.3-36.8) Seconds Minute Volume Not Reportable Vent Mode Cmv Tidal Volume 320 ml PEEP 5 cmH2O Peak Inspir Pressure Not Reportable Pressure Support Not Reportable Sodium 123 L (137-145) mmol/L Potassium 4.3 (3.4-5.0) mmol/L Chloride 81 L (98-107) mmol/L Carbon Dioxide > 40 H (22-30) mmol/L Anion Gap (4-12) mmol/L BUN 6 L (7-17) mg/dL Creatinine 0.30 L (0.7-1.0) mg/dL Estim Creat Clear Calc 71 ml/min Estimated GFR > 60 (59 - ) Glucose 84 (65-110) mg/dL Lactic Acid 2.0 (0.7-2.0) mmol/L Calcium 7.5 L (8.4-10.2) mg/dL Total Bilirubin 0.4 (0.2-1.3) mg/dL AST 41 H (14-36) U/L ALT 38 H (6-35) U/L Alkaline Phosphatase 73 (38-126) U/L Total Protein 5.0 L (6.3-8.2) g/dL Albumin 2.5 L (3.5-5.1) g/dL Urine Color Yellow (Yellow) Urine Appearance Clear (Clear) Urine pH 5.5 (5.0-9.0) Ur Specific [place] 1.013 (1.001-1.035) Urine Protein Trace (Negative) mg/dL Urine Glucose (UA) Negative (Negative) mg/dL Urine Ketones Trace H (Negative) mg/dL Ur Blood (Man) Negative (Negative) Urine Nitrate Negative (Negative) Urine Bilirubin Negative (Negative) Urine Urobilinogen 0.2 (<2.0) mg/dL Add Ur Microanalysis Reviewed Leukocyte Esterase Rfl Negative (Negative) FRANDY/UL Urine RBC 0-2 (0-2) /hpf Urine WBC 0-5 (0-3) /hpf Ur Squamous Epith Cells None seen (Few) /hpf Urine Bacteria None seen /hpf Urine Casts 6-10 Salicylates < 1.0 L (2-20) mg/dL Acetaminophen < 10 L (10-30) ug/mL Ethyl Alcohol < 10 (<10) mg/dL ABG Data ABG results: 07/27/24 13:45 Puncture Site Left radial ABG pH 7.254 L* ABG pCO2 86.7 H* ABG pO2 513.8 H ABG PO2/FiO2 Ratio 5.14 ABG HCO3 37.5 H ABG O2 Saturation 99.8 ABG O2 Content 12.2 L ABG Base Excess 8.9 A-a Gradient 112.5 Oxyhemoglobin 98.7 Total Hemoglobin 7.7 L* O2 Delivery Device Ventilator O2 Liters/Min Not Reportable Vent Rate 16 FiO2 100 Critical Care Time Critical Care Time Critical Care Time: Yes Total Critical Care Time: 35 Discharge Plan Discharge Clinical Impression: Acute hypercapnic respiratory failure, Acute hyponatremia, Hypocalcemia, Anemia Closed left femoral fracture Qualifiers: Encounter type: initial encounter Femur location: intertrochanteric Fracture alignment: nondisplaced Qualified Code(s): S72.145A - Nondisplaced intertrochanteric fracture of left femur, initial encounter for closed fracture Patient Disposition: Acute Care Hospital Condition: Serious Prescriptions: No Action magnesium oxide 400 mg (241.3 mg magnesium) Tablet 400 mg PO DAILY Qty: 30 0RF levetiracetam [Keppra] 500 mg Tablet 500 mg PO Q12HR Qty: 60 0RF albuterol sulfate 90 mcg/actuation HFA aerosol inhaler 2 puff inhalation QID PRN (Reason: shortness of breath or wheezing) Qty: 8.5 0RF Aloe [place] 2 % topical TID PRN (Reason: Dry Skin) fluoxetine 40 mg capsule 40 mg PO DAILY acetaminophen 325 mg Tablet 325 mg PO Q4H PRN (Reason: Pain (Scale Score 1-3)) loperamide [Anti-Diarrheal (loperamide)] 2 mg Tablet 2 mg PO BID PRN (Reason: Diarrhea) magnesium hydroxide [Milk of Magnesia] 400 mg/5 mL Suspension 30 ml PO BID PRN (Reason: Constipation) alum-mag hydroxide-simeth [Mylanta Maximum Strength] 400-400-40 mg/5 mL Suspension 30 ml PO Q4H PRN (Reason: Indigestion) sodium chloride 1,000 mg tablet,soluble 1,000 mg PO BID Trintellix 10 mg tablet 10 mg PO DAILY guaifenesin 600 mg Tablet Extended Release 12hr 600 mg PO BID Chloraseptic Throat [place] 1.4 % BYMOUTH Q6H PRN (Reason: Sore Throat) Dandruff Shampoo (pyrithione) 1 % topical DIRECTED PRN (Reason: dry scalp) Rx Instructions: apply topically to scalp twice a week on thursday and buspirone 5 mg tablet 5 mg PO Q12HR prednisone 20 mg Tablet 40 mg PO DAILY@0800 4 Days Qty: 8 0RF alprazolam 1 mg tablet 0.5 mg PO TID Qty: 10 0RF Trelegy Ellipta 100-62.5-25 mcg blister with device 1 inh inhalation DAILY levalbuterol HCl 1.25 mg/3 mL solution for nebulization 1.25 mg INHALATION Q6H PRN (Reason: Severe Emphysema) potassium chloride 20 mEq packet 20 meq PO BID Qty: 10 0RF tramadol-acetaminophen 37.5-325 mg tablet 1 tablet PO Q6H PRN (Reason: pain) Qty: 14 0RF tramadol-acetaminophen 37.5-325 mg tablet 1 tablet PO Q6H PRN (Reason: pain) Qty: 14 0RF Follow-up/Referrals: Kristian Escobar MD [Primary Care Provider] - Time of Disposition: 17:00
[2024-07-27] MEDS: FENTANYL 2,500MCG/NS250ML(*CRX 2,500 MCG/250 ML BAG IV CONT (13:17)
[2024-07-27] MEDS: MIDAZOLAM 100MG/NS 100ML(*CRX) 100 MG/100 ML BAG IV CONT (13:21)
[2024-07-27 13:47] LABS: Alveolar/Arterial O2 Gradient 112.5 mmHg; Base Excess ABG 8.9 mEq/l (+/-2.0); Fractional Inspired Oxygen 100 %; HCO3 ABG 37.5 mEq/l (22.0-26.0); Oxygen Content ABG 12.2 %vol (16.0-22.0); Oxygen Saturation ABG 99.8 % (95.0-100.0); Oxyhemoglobin 98.7 % THb (90.0-100.0); PO2 ABG 513.8 mmHg (80.0-100.0); PO2 FiO2 Ratio Arterial Blood 5.14 %
[2024-07-27 13:50] LABS: Device VENTILATOR; Modified Allen's Test Pass; PCO2 ABG 86.7 mmHg (35.0-45.0); Site Drawn LEFT RADIAL; Total Hemoglobin 7.7 g/dL (12.0-18.0); pH ABG 7.254 (7.350-7.450)
[2024-07-27 13:51] LABS: Arterial Blood Gas PEEP 5 cmH2O; Arterial Blood Gas Tidal Volume 320 ml; Arterial Blood Gas Vent Mode CMV; Arterial Blood Gas Ventilator rate 16 /MIN
[2024-07-27] MEDS: IPRATROPIUM 0.5 MG/ALBUTEROL SULFATE 2.5 MG AMPUL.NEB 3 ML 6 ML INHALATION (14:37)
[2024-07-27] MEDS: ALBUTEROL SULFATE NEB 2.5 MG/3 ML INH 10 MG INHALATION (14:37)
[2024-07-27] MEDS: SODIUM CHLORIDE 0.9% IV 1,000 ML 999 ML IV CONT ×2 (14:44→16:29)
[2024-07-27 15:00] LABS: Basophils Percent Auto 0.2 % (0.2-1.2); Eosinophils Percent Auto 0.2 % (0-4.4); Hematocrit 24.7 % (37.0-47.0); Hemoglobin 7.7 g/dL (12.0-15.0); Immature Granulocyte Absolute 0.02 K/mm3 (0.00-0.031); Immature Granulocyte Percent A 0.3 % (0-0.5); Immature Platelet Fraction Pct 2.6 % (0.9-11.2); Lymphocytes Absolute Auto 0.35 K/mm3 (0.9-3.2); Lymphocytes Percent Auto 5.9 % (18.3-44.2); Mean Corpuscular HGB Conc 31.2 g/dl (32-36); Mean Corpuscular Hemoglobin 31.3 pg (26-34); Mean Corpuscular Volume 100.4 fl (80-100); Mean Platelet Volume 9.7 fl (7.4-10.4); Monocytes Absolute Auto 0.5 K/mm3 (0.1-0.6); Monocytes Percent Auto 8.7 % (2.6-8.5); Neutrophils Absolute Auto 5.1 K/mm3 (1.3-6.7); Neutrophils Percent Auto 84.7 % (45.5-73.1); Platelet Count Result 149 k/mm3 (150-375); Red Blood Count 2.46 M/mm3 (4.2-5.4); Red Cell Distribution Width 13.6 % (11.5-14.5)
[2024-07-27 15:08] LABS: INR 0.9
[2024-07-27 15:09] LABS: Acetaminophen < 10 ug/mL (10-30); Ethanol < 10 mg/dL (<10); Partial Thromboplastin Time 32.3 Seconds (22.3-36.8); Salicylate < 1.0 mg/dL (2-20)
[2024-07-27 15:29] LABS: Add Urine Microscopic? YES; Appearance Urine Clear (Clear); Bacteria Urine None Seen /hpf; Bilirubin Urine Negative (Negative); Blood Urine Negative (Negative); Color Urine Yellow (Yellow); Glucose Urine UA Negative (Negative); Ketones Urine Trace mg/dL (Negative); Leukocyte Esterase Ur Negative LEU/UL (Negative); Need Manual Microscopic Reviewed; Nitrate Urine Negative (Negative); Protein Urine Trace mg/dL (Negative); RBC Urine 0-2 /hpf (0-2); Specific Grav Ur 1.013 (1.001-1.035); Squamous Epithelial Cell Urine None Seen /hpf (Few); Urobilinogen Urine 0.2 mg/dL (<2.0); WBC Urine 0-5 /hpf (0-3); pH Urine 5.5 (5.0-9.0)
[2024-07-27 15:39] LABS: Alanine Aminotransferase 38 U/L (6-35); Albumin Level 2.5 g/dL (3.5-5.1); Alkaline Phosphatase 73 U/L (38-126); Aspartate Amino Transferase 41 U/L (14-36); Bilirubin,Total 0.4 mg/dL (0.2-1.3); Blood Urea Nitrogen 6 mg/dL (7-17); Calcium 7.5 mg/dL (8.4-10.2); Carbon Dioxide > 40 mmol/L (22-30); Chloride 81 mmol/L (98-107); Estimated CRCL calculation 71 ml/min; Estimated Glomerular Filt Rate > 60; Glucose 84 mg/dL (65-110); Potassium 4.3 mmol/L (3.4-5.0); Sodium 123 mmol/L (137-145)
[2024-07-27] MEDS: CALCIUM GLUCONATE 1,000 MG/10 ML VIAL 2000 MG IV PUSH (16:01)
[2024-07-27 18:46] LABS: Amphetamine Screen Urine Negative (Negative); Barbiturate Screen Urine Negative (Negative); Benzodiazepines Screen Urine Positive (Negative); Cannabinoid Screen Urine Negative (Negative); Cocaine Screen Urine Negative (Negative); Methadone Screen Urine Negative (Negative); Opiate Screen Urine Negative (Negative); Phencyclidine Screen Urine Negative (Negative)
--- NOTE | 2024-07-27 19:00 | PC.NURSE ---
1241 - 10mg Etomidate 1242 - 50mg Roccuronium 1244- 10 Mg Etomidate 1248- 5mg versed 1250- 5mg versed 1250- intubated with glidescope. 7.5 tube 21 @ teeth bilateral breathsounds, color change noted. pt hooked up to ventilator, tube secured into place. soto catheter placed, and bilateral soft wrist restraints placed 1710- Patient report called to [facility] - given to Gerald KAY 1840- [facility] ems arrived, report given to ems crew and patient switched over to their ventilator and monitors. patient left the department at 1900 en route to [facility]
== END 2024-07-27 19:00 | disposition short-term general hospital (02) ==
PROVIDERS: Emergency Provider Preventive Medicine Aerospace Medicine; PCP Family Medicine
DX: J96.22 Acute and chronic respiratory failure with hypercapnia (principal); E83.51 Hypocalcemia; D64.9 Anemia, unspecified; S72.114A Nondisplaced fracture of greater trochanter of right femur, initial encounter for closed fracture; S72.144A Nondisplaced intertrochanteric fracture of right femur, initial encounter for closed fracture; J96.11 Chronic respiratory failure with hypoxia; J43.9 Emphysema, unspecified; I42.0 Dilated cardiomyopathy; E55.9 Vitamin D deficiency, unspecified; D51.9 Vitamin B12 deficiency anemia, unspecified; K21.9 Gastro-esophageal reflux disease without esophagitis; M81.0 Age-related osteoporosis without current pathological fracture; F41.1 Generalized anxiety disorder; F41.0 Panic disorder [episodic paroxysmal anxiety]; Z86.16 Personal history of COVID-19; Z79.899 Other long term (current) drug therapy; R00.0 Tachycardia, unspecified; R94.31 Abnormal electrocardiogram [ECG] [EKG]; W18.30XA Fall on same level, unspecified, initial encounter
CPT/HCPCS: 31500; 36415; 36600; 70450; 71250; 73552; 74176; 80053; 80143; 80179; 80307; 81001; 82077; 82805; 83605; 85018; 85025; 85055; 85610; 85730; 93005; 94002; 94640; 96361; 96365; 96366; 96367; 96375; 99291; J0612; J2250; J3010; J7030